=== PATIENT | male | born 1955 | race Caucasian/White ===

== ENCOUNTER 2016-06-10 18:29 | Inpatient (IN) | payer OTHER ==
[2016-06-10] MEDS ORDERED: ASPIRIN 81 MG CHEWABLE TABLETS PO ONE (18:46)
[2016-06-10] MEDS ORDERED: ASPIRIN 81 MG CHEWABLE TABLETS ONE (18:57)
[2016-06-10 19:15] LABS: BASOPHIL 1.2 % (0-2.0); MCH 29.8 pg (25.7-33.7); MCHC 33.2 g/dl (32.0-35.9); MEAN CELL VOLUME 89.9 fl (80-96); MEAN PLT VOLUME 8.3 fl (7.5-11.1); NEUTROPHILS 78.9 % (42.8-82.8); PLATELET COUNT 170 K/MM3 (134-434); WHITE BLOOD COUNT 8.8 K/mm3 (4.0-10.0)
[2016-06-10 19:33] LABS: INR 1.32 (0.82-1.09); PROTHROMBIN TIME (PATIENT) 14.6 SEC (9.98-11.88)
[2016-06-10] MEDS ORDERED: LEVOFLOXACIN 750 MG IVPB 150 ML IVPB ONE ×2 (19:41→20:12)
[2016-06-10 19:42] LABS: ALBUMIN 3.2 g/dl (3.4-5.0); BILIRUBIN,TOTAL 0.4 mg/dL (0.2-1.0); CALCIUM 8.5 mg/dL (8.5-10.1); CREATININE 1.4 mg/dL (0.7-1.3); MAGNESIUM 1.6 mg/dL (1.8-2.4); TOT PROT 6.9 g/dl (6.4-8.2)
[2016-06-10] MEDS ORDERED: ALBUTEROL SO4 2.5/IPRATROPIUM 0.5 INH SOL 3 ML VIAL.NEB. NEB STA (19:42)
--- NOTE | 2016-06-10 19:42 | PDOC ---
History of Present Illness - General History Source: Patient <Devin Coto - Last Filed: 06/10/16 20:01> - General History Source: Patient Exam Limitations: No Limitations - History of Present Illness Initial Comments: 06/10/16 19:52 The patient is a 61 year old male with significant past medical history of a-fib , CAD, CHF, hypertension, hyperlipidemia, COPD, and diabetes who presents to the ED with right-sided chest pain that began earlier today. Patient reports his right-sided chest pain radiates down his right arm. He describes his pain as sharp in nature and 10/10. At time of evaluation, his pain is more of a discomfort and 5/10. Patient denies diaphoresis, lightheadedness, jaw pain, nausea, or vomiting. As per daughter, at bedside, after talking to the patient earlier today, she noted the patient to be out of breath while talking. Patient also has complaints of occasional productive cough for the past few days. The patient denies fever, chills, abdominal pain, and diarrhea. Allergies: codeine, gabapentin Social History: Current smoker (PPD). No alcohol or drug use reported. Past Surgical History: AICD, CABG PCP: Dr. Kanu Truong Cardio: Dr. 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) GI Disorders: No Disorders: No HTN: Yes Hypercholesterolemia: Yes Liver Disease: No Suicide Attempt (Hx): No Seizures: No Thyroid Disease: No - Surgical History Abdominal Surgery: No Appendectomy: No Cardiac Surgery: Yes (CABG x 3 PACEMAKER) Cholecystectomy: No Lung Surgery: No Neurologic Surgery: No Orthopedic Surgery: No - Immunization History Td Vaccination: Yes (unknown) Immunization Up to Date: Yes - Psycho/Social/Smoking Cessation Hx Anxiety: No Suicidal Ideation: No Smoking Status: Yes Smoking History: Current every day smoker Years of Tobacco Use: 40 Have you smoked in the past 12 months: No Number of Cigarettes Smoked Daily: 15 If you are a former smoker, when did you quit?: 02/18/16 Cigars Per Day: 0 Information on smoking cessation initiated: No 'Breaking Loose' booklet given: 12/12/15 Hx Alcohol Use: No Drug/Substance Use Hx: No Substance Use Type: Cocaine Hx Substance Use Treatment: Yes (detox, new focus) <Devin Coto - Last Filed: 06/10/16 20:01> <Janis Nelson - Last Filed: 06/10/16 20:13> - Past Medical History Allergies/Adverse Reactions: Allergies Allergy/AdvReac Type Severity Reaction Status Date / Time codeine AdvReac Intermediate Vomiting Verified 06/10/16 18:34 gabapentin AdvReac Intermediate dizzy Verified 06/10/16 18:34 Home Medications: Ambulatory Orders Amlodipine Besylate [Norvasc -] 5 mg PO DAILY 06/18/15 Aspirin [Aspirin EC] 81 mg PO DAILY 06/18/15 Budesonide/Formeterol Fumarate [SYMBICORT 160/4.5mcg -] 1 inh PO DAILY 06/18/15 Cholecalciferol (Vitamin D3) [Vitamin D3] 2,000 unit PO DAILY 06/18/15 Cilostazol 50 mg PO DAILY 06/18/15 Clopidogrel Bisulfate [Clopidogrel] 75 mg PO DAILY 06/18/15 Furosemide [Lasix -] 40 mg PO DAILY 06/18/15 Insulin Detemir [Levemir Flextouch] 10 unit SQ PRN PRN 06/18/15 Lisinopril 5 mg PO DAILY 06/18/15 Metformin HCl [Glucophage] 1,000 mg PO BID 06/18/15 Simvastatin [Zocor -] 20 mg PO HS 06/18/15 Zolpidem Tartrate [Ambien] 10 mg PO HS 06/18/15 Carvedilol [Coreg -] 25 mg PO BID #60 tablet 06/20/15 Albuterol 0.083% Nebulizer Rosy [Ventolin 0.083% Nebulizer Soln -] 1 neb NEB QID PRN 02/18/16 Bupropion HCl [Wellbutrin -] 75 mg PO BID #60 tablet MDD 2 04/09/16 Oxycodone HCl/Acetaminophen [Percocet 10-325 mg Tablet] 1 each PO QID PRN #120 tablet MDD 4 06/09/16 Review of Systems - Review of Systems Able to Perform ROS?: Yes Comments:: 06/10/16 19:53 CONSTITUTIONAL: Absent: fever, chills, diaphoresis, generalized weakness, malaise, loss of appetite HEENT: Absent: rhinorrhea, nasal congestion, throat pain, throat swelling, difficulty swallowing, mouth swelling, ear pain, eye pain, visual Changes CARDIOVASCULAR: +right-sided chest pain radiating down right arm Absent: syncope, palpitations, irregular heart rate, lightheadedness, peripheral edema RESPIRATORY: +cough, shortness of breath, conversational dyspnea Absent: orthopnea, wheezing , stridor, hemoptysis GASTROINTESTINAL: Absent: abdominal pain, abdominal distension, nausea, vomiting, diarrhea, constipation, melena, hematochezia GENITOURINARY: Absent: dysuria, frequency, urgency, hesitancy, hematuria, flank pain, genital pain MUSCULOSKELETAL: Absent: myalgia, arthralgia, joint swelling SKIN: Absent: rash, itching, pallor NEUROLOGIC: Absent: headache, focal weakness or paresthesias, dizziness, unsteady gait, seizure, mental status changes, bladder or bowel incontinence PSYCHIATRIC: Absent: anxiety, depression, suicidal or homicidal ideation, hallucinations. <Janis Nelson - Last Filed: 06/10/16 20:13> *Physical Exam - Vital Signs Last Vital Signs Temp Pulse Resp BP Pulse Ox 97.8 F 114 H 18 147/78 95 06/10/16 18:31 06/10/16 18:31 06/10/16 18:31 06/10/16 18:31 06/10/16 18:31 <Devin Coto - Last Filed: 06/10/16 20:01> - Vital Signs Last Vital Signs Temp Pulse Resp BP Pulse Ox 97.8 F 114 H 18 147/78 95 06/10/16 18:31 06/10/16 18:31 06/10/16 18:31 06/10/16 18:31 06/10/16 18:31 - Physical Exam Comments: 06/10/16 19:53 GENERAL: Well developed, well nourished. Awake and alert. No acute distress. HEENT: Normocephalic, atraumatic. PERRLA, EOMI. No conjunctival pallor. Sclera are non- icteric. Moist mucous membranes. Oropharynx is clear. NECK: Supple. Full ROM. No JVD. Carotid pulses 2+ and symmetric, without bruits. No thyromegaly. No lymphadenopathy. CARDIOVASCULAR: Tachycardia. Regular rhythm. No murmurs, rubs, or gallops. Distal pulses are 2+ and symmetric. PULMONARY: Mild respiratory distress.Decreased breath sounds on the left. Mild conversational dyspnea, no retractions. ABDOMINAL: Soft. Non-tender. Non-distended. No rebound or guarding. No organomegaly. Normoactive bowel sounds. MUSCULOSKELETAL Normal range of motion at all joints. No bony deformities or tenderness. No CVA tenderness. EXTREMITIES: No cyanosis. No clubbing. No edema. No calf tenderness. SKIN: Warm and dry. Normal capillary refill. No rashes. No jaundice. NEUROLOGICAL: Alert, awake, appropriate. Cranial nerves 2-12 intact. Moving all extremities. No gross focal neurological deficits. PSYCHIATRIC: Cooperative. Good eye contact. Appropriate mood and affect. <Janis Nelson - Last Filed: 06/10/16 20:13> Heart Score/ECG Review - ECG Impressions Comment:: 06/10/16 20:05 Sinus tachycardia with short SC with occasional premature ventricular complexes @112bpm Left axis deviation Pulmonary disease pattern Left ventricular hypertrophy with repolarization abnormality Inferior-posterior infarct, possibly acute Consider right ventricular involvement in acute inferior infarct Abnormal ECG <Janis Nelson - Last Filed: 06/10/16 20:13> ED Treatment Course - LABORATORY CBC & Chemistry Diagram: 06/10/16 18:34 06/10/16 18:34 - ADDITIONAL ORDERS Additional order review: 06/10/16 18:34 RBC 3.08 L MCV 89.9 MCHC 33.2 RDW 16.0 H MPV 8.3 Neutrophils % 78.9 Lymphocytes % 11.3 Monocytes % 5.6 Eosinophils % 3.0 D Basophils % 1.2 - Medications Given in the ED: ED Medications Discontinued Medications Generic Name Dose Route Start Last Admin Trade Name Freq PRN Reason Stop Dose Admin Aspirin 162 mg 06/10/16 18:46 06/10/16 18:55 Asa - PO 06/10/16 18:47 162 mg ONCE ONE Administration <Devin Coto - Last Filed: 06/10/16 20:01> - LABORATORY CBC & Chemistry Diagram: 06/10/16 18:34 06/10/16 18:34 - ADDITIONAL ORDERS Additional order review: Laboratory Results 06/10/16 18:34 Sodium 142 Potassium 4.1 Chloride 106 Carbon Dioxide 27 Anion Gap 9 BUN 34 H Creatinine 1.4 H Creat Clearance w eGFR 51.52 Random Glucose 179 H D Calcium 8.5 Magnesium 1.6 L D Total Bilirubin 0.4 D AST 7 L D ALT 7 L D Alkaline Phosphatase 92 Creatine Kinase 42 Troponin I 0.03 B-Natriuretic Peptide 7927.97 H Total Protein 6.9 Albumin 3.2 L 06/10/16 18:34 RBC 3.08 L MCV 89.9 MCHC 33.2 RDW 16.0 H MPV 8.3 Neutrophils % 78.9 Lymphocytes % 11.3 Monocytes % 5.6 Eosinophils % 3.0 D Basophils % 1.2 - Medications Given in the ED: ED Medications Discontinued Medications Generic Name Dose Route Start Last Admin Trade Name Freq PRN Reason Stop Dose Admin Aspirin 162 mg 06/10/16 18:46 06/10/16 18:55 Asa - PO 06/10/16 18:47 162 mg ONCE ONE Administration <Janis Nelson - Last Filed: 06/10/16 20:13> Medical Decision Making - Medical Decision Making 06/10/16 20:02 Dr. Coto: The scribe's documentation has been prepared under my direction and personally reviewed by me in its entirery. I confirm that the note above accurately reflects all work, treatment, procedures, and medical decision making performed by me. patient found to LLL infiltrate and small pleural. Troponin negative at this time. Pt to be admitted to Tele. Spoke to Dr. Phillips who will write admitting orders <Devin Coto - Last Filed: 06/10/16 20:01> - Medical Decision Making 06/10/16 19:[address] Rocky Phillips who is covering for Dr. Isidro Morales who is covering for Dr. Kanu Truong (via answering service) at 19:56. Awaiting call back 06/10/16 19:58 Patient's case discussed with Dr. Phillips at 19:58 <Janis Nelson - Last Filed: 06/10/16 20:13> *DC/Admit/Observation/Transfer - Discharge Dispostion Admit: Yes <Devin Coto - Last Filed: 06/10/16 20:01> - Attestations Scribe Attestion: 06/10/16 19:53 Documentation prepared by Janis Nelson, acting as certified medical dosimetrist for Devin Coto MD <Janis Nelson - Last Filed: 06/10/16 20:13> Diagnosis at time of Disposition: Chest pain, CAD (coronary artery disease) Pneumonia Qualifiers: Pneumonia type: due to unspecified organism Laterality: left Lung location: lower lobe of lung Qualified Code(s): J18.9 - Pneumonia, unspecified organism - Referrals Referrals: Kanu Truong MD [Primary Care Provider] -
[2016-06-10 19:44] LABS: TROPONIN I 0.03 ng/ml (0.00-0.05)
[2016-06-10] MEDS ORDERED: ALBUTEROL SO4 0.083% IH SOL 2.5 MG/3 ML VIAL.NEB. NEB ONE (20:12)
[2016-06-10] MEDS ORDERED: CEFTRIAXONE 50 ML ONE (21:21)
[2016-06-10] MEDS: INSULIN DETEMIR 100 UNITS/ML MDV SQ SCH (23:11)
[2016-06-10] MEDS: HEPARIN NA (PORCINE) 5,000 UNITS/ML 1ML VIAL SQ SCH (23:11)
[2016-06-10] MEDS: ZOLPIDEM TARTRATE 5 MG TABLET PO PRN (23:12)
[2016-06-10] MEDS: AZITHROMYCIN IVPB 250 ML IVPB SCH (23:12)
[2016-06-10] MEDS: INSULIN SLIDING SCALE (NOVOLOG) 1 VIAL SQ SCH (23:13)
[2016-06-10] MEDS: CARVEDILOL 25 MG TABLET (FP) PO SCH (23:13)
[2016-06-10] MEDS: ATORVASTATIN CA 10 MG TABLET (FP) PO SCH (23:13)
[2016-06-10] MEDS: BUDESONIDE/FORMETEROL FUMARATE 160/4.5 mcg INHALER IH SCH (23:43)
[2016-06-10] MEDS: buPROPion HCL 75 MG TABLET PO SCH (23:43)
[2016-06-10] MEDS: CEFTRIAXONE 50 ML IVPB SCH (23:44)
[2016-06-11] MEDS: ALBUTEROL SO4 0.083% IH SOL 2.5 MG/3 ML VIAL.NEB. NEB SCH ×4 (00:15→17:40)
[2016-06-11] MEDS ORDERED: INSULIN DETEMIR 100 UNITS/ML MDV SQ ONE (00:39)
[2016-06-11 01:16] VITALS: BMI 27.2
[2016-06-11 04:40] LABS: TROPONIN I 0.04 ng/ml (0.00-0.05)
[2016-06-11 06:58] LABS: BASOPHIL 1.2 % (0-2.0); EOSINOPHIL 4.3 % (0-4.5); MCH 29.6 pg (25.7-33.7); MCHC 32.9 g/dl (32.0-35.9); MEAN PLT VOLUME 8.5 fl (7.5-11.1); NEUTROPHILS 73.1 % (42.8-82.8); PLATELET COUNT 136 K/MM3 (134-434); RDW 15.8 % (11.9-15.9); WHITE BLOOD COUNT 6.5 K/mm3 (4.0-10.0)
[2016-06-11 07:42] LABS: ALK PHOS 82 U/L (45-117); ANION GAP 7 (8-16); BILIRUBIN,TOTAL 0.4 mg/dL (0.2-1.0); CALCIUM 8.4 mg/dL (8.5-10.1); CO2 29 mmol/L (21-32); CREATININE 1.2 mg/dL (0.7-1.3); GLUCOSE,RANDOM 94 mg/dL (74-106); SGOT/AST 7 U/L (15-37); SGPT/ALT 6 U/L (12-78); TOT PROT 6.3 g/dl (6.4-8.2)
[2016-06-11] MEDS: INSULIN SLIDING SCALE (NOVOLOG) 1 VIAL SQ SCH ×4 (07:59→22:06)
[2016-06-11] MEDS: metFORMIN HCL 500 MG TABLET (FP) PO SCH ×2 (07:59→16:32)
[2016-06-11] MEDS: oxyCODONE HCL 5 MG TABLET PO PRN ×3 (08:00→22:10)
[2016-06-11] MEDS: ACETAMINOPHEN 325 MG TABLET (FP) PO PRN ×3 (08:01→22:09)
[2016-06-11] MEDS: CEFTRIAXONE 50 ML IVPB SCH (09:12)
[2016-06-11] MEDS: LISINOPRIL 5 MG TABLET (FP) PO SCH (09:13)
[2016-06-11] MEDS: amLODIPine BESYLATE 5 MG TABLET (FP) PO SCH (09:13)
[2016-06-11] MEDS: AZITHROMYCIN IVPB 250 ML IVPB SCH (09:13)
[2016-06-11] MEDS: ASPIRIN COATED 81 MG TABLET.EC PO SCH (09:13)
[2016-06-11] MEDS: HEPARIN NA (PORCINE) 5,000 UNITS/ML 1ML VIAL SQ SCH ×2 (09:14→22:06)
[2016-06-11] MEDS: CARVEDILOL 25 MG TABLET (FP) PO SCH ×2 (09:14→22:06)
[2016-06-11] MEDS: CLOPIDOGREL BISULFATE 75 MG TABLET (FP) PO SCH (09:14)
[2016-06-11] MEDS: CHOLECALCIFEROL (VITAMIN D3) 1,000 UNIT TABLET (FP) PO SCH (09:14)
[2016-06-11] MEDS ORDERED: PT OWN MED DRAWER 7, Y5N ONE ×2 (09:15→13:14)
[2016-06-11] MEDS: buPROPion HCL 75 MG TABLET PO SCH ×2 (09:16→22:05)
[2016-06-11] MEDS: BUDESONIDE/FORMETEROL FUMARATE 160/4.5 mcg INHALER IH SCH ×2 (09:16→22:15)
[2016-06-11] MEDS ORDERED: FUROSEMIDE 40 MG/4 ML INJECTABLE VIAL IVPUSH SCH (10:00)
[2016-06-11] MEDS ORDERED: CILOSTAZOL 50 MG TABLET (FP) PO SCH (10:00)
--- NOTE | 2016-06-11 10:54 | CON.CARD ---
Cardiology Consult (text) - Consultation Consultation Note: cc: sob hpi: 61 m hx copd, cabgx3 2012, bio avr 2012, pad s/p b/l sfa occlusions, syst chf s/p medtronic icd, htn, hld, a-tach, here with sob. Had been feeling well until yesterday when he began to have sob/mckay. He also noticed some sharp central cp with radiation to right arm. No cough. No palps, dizzy, loc, pnd, orthopnea, le edema. Got iv lasix and abx in ER and today he reports cp resolved. Sob is a little better as well. Sees me for cardiology. pmh: per hpi psh: cabg, avr, icd social: +tob fam: no premature cad ros: per hpi; no nvd, fever, muscle pain, wt loss, rash, hematuria, gib, nasal congestion, shelton, vision changes meds: Home Medications Medication Instructions Recorded Amlodipine Besylate [Norvasc -] 5 mg PO DAILY 06/18/15 Aspirin [Aspirin EC] 81 mg PO DAILY 06/18/15 Budesonide/Formeterol Fumarate 1 inh PO DAILY 06/18/15 [SYMBICORT 160/4.5mcg -] Cholecalciferol (Vitamin D3) 2,000 unit PO DAILY 06/18/15 [Vitamin D3] Cilostazol 50 mg PO DAILY 06/18/15 Clopidogrel Bisulfate [Clopidogrel] 75 mg PO DAILY 06/18/15 Furosemide [Lasix -] 40 mg PO DAILY 06/18/15 Insulin Detemir [Levemir Flextouch] 10 unit SQ PRN PRN 06/18/15 Lisinopril 5 mg PO DAILY 06/18/15 Metformin HCl [Glucophage] 1,000 mg PO BID 06/18/15 Simvastatin [Zocor -] 20 mg PO HS 06/18/15 Zolpidem Tartrate [Ambien] 10 mg PO HS 06/18/15 Carvedilol [Coreg -] 25 mg PO BID #60 tablet 06/20/15 Albuterol 0.083% Nebulizer Rosy 1 neb NEB QID PRN 02/18/16 [Ventolin 0.083% Nebulizer Soln -] Bupropion HCl [Wellbutrin -] 75 mg PO BID #60 tablet MDD 2 04/09/16 Oxycodone HCl/Acetaminophen 1 each PO QID PRN #120 tablet MDD 4 06/09/16 [Percocet 10-325 mg Tablet] pe: Vital Signs Period Temp Pulse Resp BP Sys/El Pulse Ox Last 24 Hr 97.6 F-98.1 F 75-114 16-18 104-147/59-83 95-100 nad no jvd rrr s1s2 no mrg cta bl nl eff aaox3 no le e/c/c abd nt nd pos bs no jaundice diaphoresis +dp pt no carotid bruits Laboratory Last Values WBC 6.5 K/mm3 (4.0-10.0) 06/11/16 05:55 RBC 2.92 M/mm3 (4.00-5.60) L 06/11/16 05:55 Hgb 8.7 GM/dL (11.7-16.9) L 06/11/16 05:55 Hct 26.3 % (35.4-49) L 06/11/16 05:55 MCV 90.0 fl (80-96) 06/11/16 05:55 MCHC 32.9 g/dl (32.0-35.9) 06/11/16 05:55 RDW 15.8 % (11.9-15.9) 06/11/16 05:55 Plt Count 136 K/MM3 (134-434) 06/11/16 05:55 MPV 8.5 fl (7.5-11.1) 06/11/16 05:55 Neutrophils % 73.1 % (42.8-82.8) 06/11/16 05:55 Lymphocytes % 14.3 % (8-40) D 06/11/16 05:55 Monocytes % 7.1 % (3.8-10.2) 06/11/16 05:55 Eosinophils % 4.3 % (0-4.5) 06/11/16 05:55 Basophils % 1.2 % (0-2.0) 06/11/16 05:55 INR 1.32 (0.82-1.09) H 06/10/16 18:34 Sodium 140 mmol/L (136-145) 06/11/16 05:55 Potassium 4.3 mmol/L (3.5-5.1) 06/11/16 05:55 Chloride 104 mmol/L (98-107) 06/11/16 05:55 Carbon Dioxide 29 mmol/L (21-32) 06/11/16 05:55 Anion Gap 7 (8-16) L 06/11/16 05:55 BUN 32 mg/dL (7-18) H 06/11/16 05:55 Creatinine 1.2 mg/dL (0.7-1.3) 06/11/16 05:55 Creat Clearance w eGFR > 60 (>60) 06/11/16 05:55 POC Glucometer 119 UNITS (()) 06/10/16 23:07 Random Glucose 94 mg/dL (74-106) D 06/11/16 05:55 Calcium 8.4 mg/dL (8.5-10.1) L 06/11/16 05:55 Magnesium 1.6 mg/dL (1.8-2.4) L D 06/10/16 18:34 Total Bilirubin 0.4 mg/dL (0.2-1.0) 06/11/16 05:55 AST 7 U/L (15-37) L 06/11/16 05:55 ALT 6 U/L (12-78) L 06/11/16 05:55 Alkaline Phosphatase 82 U/L (45-117) 06/11/16 05:55 Creatine Kinase 41 IU/L (39-308) 06/10/16 23:45 Troponin I 0.04 ng/ml (0.00-0.05) D 06/10/16 23:45 B-Natriuretic Peptide 7927.97 pg/ml (5-125) H 06/10/16 18:34 Total Protein 6.3 g/dl (6.4-8.2) L 06/11/16 05:55 Albumin 3.0 g/dl (3.4-5.0) L 06/11/16 05:55 tele: sr, occ vpacing ecg 06/10/16: ?atach, vs sinus tach, nl qtc, lvh with repol changes, no sig change prior cxr: mild chf, ?infiltrate mibi 09/2014: large inf scar, mod anteroapical ischemia, lvef 25% echo 06/2015: mild lve, mod-sev dec lvef, mod lae, nl rv size, mild dec rv fcn, mild-mod mr, mild tr, nl avr fcn, rvsp 30-40 a/p: 61 m hx copd, cabgx3 2012, bio avr 2012, pad s/p b/l sfa occlusions, syst chf s/p medtronic icd, htn, hld, a-tach, here with sob. sob, acute systolic chf exacerbation: -no gross vol overload but some mild congestion on cxr -possible with some mild chf so agree with trial of iv lasix as doing -also on abx for possible copd/pna -check updated echo cp: -atypical, now resolved -ecg w/o sig changes -ce's negx2 -will monitor sxs for now since resolved, given his cad hx and mildly abnormal prior stress test will likely need repeat mibi to look for any sig cad recurrence, possibly tomorrow cad: -plan as above -cont deidra, dapt, statin, bb, ccb bio avr: -nl fcn on last years echo, will check updated here to monitor pad: -stable, no claudication, cont current cardiac meds, pletal s/p icd: -no shocks -nl function on recent office check 05/2016 htn: -cont home meds hld: -cont statin atach: -has minimal episodes seen in past on icd checks -tele here with some brief runs possibly -cont bb, monitor tele
[2016-06-11 12:07] LABS: TROPONIN I 0.04 ng/ml (0.00-0.05)
[2016-06-11] MEDS: NICOTINE 14 MG/24 HOURS TOPICAL PATCH TD SCH (14:30)
--- NOTE | 2016-06-11 14:58 | HP ---
Admitting History and Physical - Primary Care Physician PCP: Kanu Truong - Admission Chief Complaint: I was short of breath History of Present Illness: Mr Owen is a pleasant 61 year old male who comes in with shortness of breath. He says he was doing well, however yesterday he became short of breath. He says it started suddenly yesterday. It was associated with minimal coughing. He says he had some right sided chest pain with it yesterday but that resolved. He says he also has R arm pain, he states that it is felt with movement of the arm and pressing on the muscle. His arm is not swollen. Currently he says he is feeling better. He says his shortness of breath has improved and the chest pain resolved. He denies fevers, chills, lightheadedness, dizziness, passing out, abdominal pain, nausea, vomiting, diarrhea, constipation, difficulty or pain on urination, swelling, or erythema. He currently is requesting a nicotine patch. History Source: Patient Limitations to Obtaining History: No Limitations - Past Medical History Cardiovascular: Yes: AFIB (after CABG briefly; not on AC), CAD, CHF, HTN Pulmonary: Yes: COPD, O2 Dependent Endocrine: Yes: Diabetes Mellitus - Past Surgical History Past Surgical History: Yes: AICD, CABG - Advance Directives Advance Directives: Yes: Health Care Proxy - Smoking History Smoking history: Current every day smoker Have you smoked in the past 12 months: Yes Aproximately how many cigarettes per day: 15 If you are a former smoker, when did you quit?: 02/18/16 - Alcohol/Substance Use Hx Alcohol Use: No History of Substance Use: reports: None - Social History ADL: Independent History of Recent Travel: No Home Medications - Allergies Allergies/Adverse Reactions: Allergies Allergy/AdvReac Type Severity Reaction Status Date / Time codeine AdvReac Intermediate Vomiting Verified 06/10/16 18:34 gabapentin AdvReac Intermediate dizzy Verified 06/10/16 18:34 - Home Medications Home Medications: Ambulatory Orders Amlodipine Besylate [Norvasc -] 5 mg PO DAILY 06/18/15 Aspirin [Aspirin EC] 81 mg PO DAILY 06/18/15 Budesonide/Formeterol Fumarate [SYMBICORT 160/4.5mcg -] 1 inh PO DAILY 06/18/15 Cholecalciferol (Vitamin D3) [Vitamin D3] 2,000 unit PO DAILY 06/18/15 Cilostazol 50 mg PO DAILY 06/18/15 Clopidogrel Bisulfate [Clopidogrel] 75 mg PO DAILY 06/18/15 Furosemide [Lasix -] 40 mg PO DAILY 06/18/15 Insulin Detemir [Levemir Flextouch] 10 unit SQ PRN PRN 06/18/15 Lisinopril 5 mg PO DAILY 06/18/15 Metformin HCl [Glucophage] 1,000 mg PO BID 06/18/15 Simvastatin [Zocor -] 20 mg PO HS 06/18/15 Zolpidem Tartrate [Ambien] 10 mg PO HS 06/18/15 Carvedilol [Coreg -] 25 mg PO BID #60 tablet 06/20/15 Albuterol 0.083% Nebulizer Rosy [Ventolin 0.083% Nebulizer Soln -] 1 neb NEB QID PRN 02/18/16 Bupropion HCl [Wellbutrin -] 75 mg PO BID #60 tablet MDD 2 04/09/16 Oxycodone HCl/Acetaminophen [Percocet 10-325 mg Tablet] 1 each PO QID PRN #120 tablet MDD 4 06/09/16 Family Disease History - Family Disease History Family Disease History: Diabetes: Mother, Heart Disease: Father (etoh) Review of Systems Findings/Remarks: Full review of systems obtained, as per HPI and otherwise negative Physical Examination Vital Signs: Vital Signs Temperature 97.4 F L 06/11/16 14:27 Pulse Rate 68 06/11/16 14:27 Respiratory Rate 18 06/11/16 14:27 Blood Pressure 105/55 06/11/16 14:27 O2 Sat by Pulse Oximetry (%) 98 06/11/16 10:00 Constitutional: Yes: Well Nourished, No Distress, Calm Eyes: Yes: Conjunctiva Clear, EOM Intact, PERRL HENT: Yes: Atraumatic, Normocephalic Cardiovascular: Yes: Regular Rate and Rhythm. No: Gallop, Murmur, Rub Respiratory: Yes: Regular, CTA Bilaterally, On Nasal O2. No: Rales, Rhonchi, Wheezes Gastrointestinal: Yes: Normal Bowel Sounds, Soft. No: Distention, Tenderness Extremities: Yes: WNL Edema: No Labs: CBC, BMP 06/11/16 05:55 06/11/16 05:55 Imaging - Results Chest X-ray: Report Reviewed, Image Reviewed Problem List - Problems (1) Shortness of breath Assessment/Plan: -patient presents with SOB -low suspicion for pneumonia, considering unchanged chest x-ray/no leukocytosis/ afebrile -will stop antibiotics -check urine for pneumonia antigens -being diuresed for fluid overload -improving Code(s): R06.02 - SHORTNESS OF BREATH (2) Chest pain Assessment/Plan: -atypical -cardiac enzymes x3 negative -resolved -cardiology following Code(s): R07.9 - CHEST PAIN, UNSPECIFIED (3) CAD (coronary artery disease) Assessment/Plan: -quiescent -continue home regimen Code(s): I25.10 - ATHSCL HEART DISEASE OF [place] CORONARY ARTERY W/O ANG PCTRS (4) CHF (congestive heart failure) Assessment/Plan: -minor exacerbation -continue IV lasix per cardiology Code(s): I50.9 - HEART FAILURE, UNSPECIFIED Qualifiers: Congestive heart failure type: systolic Congestive heart failure chronicity: chronic Qualified Code(s): I50.22 - Chronic systolic ( congestive) heart failure (5) CKD (chronic kidney disease) Assessment/Plan: -at baseline -monitor while receiving IV lasix Code(s): N18.9 - CHRONIC KIDNEY DISEASE, UNSPECIFIED Qualifiers: Chronic kidney disease stage: stage 3 (moderate) Qualified Code(s): N18.3 - Chronic kidney disease, stage 3 (moderate) (6) COPD (chronic obstructive pulmonary disease) Assessment/Plan: -considering smoking history, possible COPD exacerbation -however patient without wheezing and good air movement -continue symbicort and albuterol Code(s): J44.9 - CHRONIC OBSTRUCTIVE PULMONARY DISEASE, UNSPECIFIED (7) HTN (hypertension) Assessment/Plan: -well controlled -continue home regimen Code(s): I10 - ESSENTIAL (PRIMARY) HYPERTENSION (8) Nicotine dependence Assessment/Plan: -nicotine patch Code(s): F17.200 - NICOTINE DEPENDENCE, UNSPECIFIED, UNCOMPLICATED (9) Diabetes Assessment/Plan: -continue metformin and levemir -diabetic diet -FSBS and SSI Code(s): E11.9 - TYPE 2 DIABETES MELLITUS WITHOUT COMPLICATIONS
[2016-06-11] MEDS: ZOLPIDEM TARTRATE 5 MG TABLET PO PRN (22:05)
[2016-06-11] MEDS: INSULIN DETEMIR 100 UNITS/ML MDV SQ SCH (22:06)
[2016-06-11] MEDS: ATORVASTATIN CA 10 MG TABLET (FP) PO SCH (22:06)
[2016-06-12] MEDS: ALBUTEROL SO4 0.083% IH SOL 2.5 MG/3 ML VIAL.NEB. NEB SCH ×3 (05:50→11:14)
[2016-06-12] MEDS ORDERED: PT OWN MED DRAWER 7, Y5N ONE ×2 (06:13→13:12)
[2016-06-12] MEDS: ACETAMINOPHEN 325 MG TABLET (FP) PO PRN ×2 (06:19→13:21)
[2016-06-12] MEDS: oxyCODONE HCL 5 MG TABLET PO PRN ×2 (06:20→13:21)
[2016-06-12] MEDS: INSULIN SLIDING SCALE (NOVOLOG) 1 VIAL SQ SCH ×2 (06:20→11:00)
[2016-06-12] MEDS: metFORMIN HCL 500 MG TABLET (FP) PO SCH (06:20)
[2016-06-12 07:39] LABS: BASOPHIL 1.3 % (0-2.0); EOSINOPHIL 4.8 % (0-4.5); MCH 29.8 pg (25.7-33.7); MCHC 33.3 g/dl (32.0-35.9); MEAN CELL VOLUME 89.5 fl (80-96); MEAN PLT VOLUME 8.6 fl (7.5-11.1); NEUTROPHILS 75.3 % (42.8-82.8); PLATELET COUNT 133 K/MM3 (134-434); RDW 15.7 % (11.9-15.9); WHITE BLOOD COUNT 6.5 K/mm3 (4.0-10.0)
[2016-06-12 08:04] LABS: CALCIUM 8.5 mg/dL (8.5-10.1); CREATININE 1.4 mg/dL (0.7-1.3); MAGNESIUM 1.7 mg/dL (1.8-2.4); PHOSPHOROUS 3.9 mg/dL (2.5-4.9)
--- NOTE | 2016-06-12 09:32 | PN ---
Progress Note (short form) - Note Progress Note: s: no cp sob palps dizzy; feels better o: Vital Signs Period Temp Pulse Resp BP Sys/El Pulse Ox Last 24 Hr 97.4 F-98.3 F 66-76 16-18 105-126/55-72 98-98 nad no jvd rrr s1s2 no mrg cta bl nl eff aaox3 no le e/c/c abd nt nd pos bs no jaundice diaphoresis Current Medications Generic Name Dose Route Start Last Admin Trade Name Freq PRN Reason Stop Dose Admin Acetaminophen 325 mg 06/10/16 20:53 06/12/16 06:19 Tylenol - PO 325 mg Q6H PRN Administration PAIN Albuterol Sulfate 1 amp 06/11/16 00:00 06/12/16 05:50 Ventolin 0.083% Nebulizer Soln - NEB 1 amp QIDR MANJU Administration Amlodipine Besylate 5 mg 06/11/16 10:00 06/11/16 09:13 Norvasc - PO 5 mg DAILY MANJU Administration Aspirin 81 mg 06/11/16 10:00 06/11/16 09:13 Ecotrin - PO 81 mg DAILY MANJU Administration Atorvastatin Calcium 10 mg 06/10/16 22:00 06/11/16 22:06 Lipitor - PO 10 mg HS MANJU Administration Budesonide/Formoterol Fumarate 2 puff 06/10/16 22:00 06/11/16 22:15 Symbicort 160/4.5mcg - IH 2 puff BID MANJU Administration Bupropion HCl 75 mg 06/10/16 22:00 06/11/16 22:05 Wellbutrin - PO 75 mg BID MANJU Administration Carvedilol 25 mg 06/10/16 22:00 06/11/16 22:06 Coreg - PO 25 mg BID MANJU Administration Cholecalciferol 2,000 unit 06/11/16 10:00 06/11/16 09:14 Vitamin D3 - PO 2,000 unit DAILY MANJU Administration Cilostazol 50 mg 06/11/16 10:00 Pletal - PO DAILY MANJU Clopidogrel Bisulfate 75 mg 06/11/16 10:00 06/11/16 09:14 Plavix - PO 75 mg DAILY MANJU Administration Furosemide 40 mg 06/12/16 10:00 Lasix - PO DAILY [facility] Heparin Sodium (Porcine) 5,000 unit 06/10/16 22:00 06/11/16 22:06 Heparin - SQ 5,000 unit BID MANJU Administration Insulin Aspart 1 vial 06/10/16 22:00 06/12/16 06:20 Novolog Vial Sliding Scale - SQ Not Given ACHS [facility] Protocol Insulin Detemir 10 units 06/10/16 22:00 06/11/16 22:06 Levemir Vial SQ Not Given HS MANJU Lisinopril 5 mg 06/11/16 10:00 06/11/16 09:13 Prinivil PO 5 mg DAILY MANJU Administration Metformin HCl 1,000 mg 06/11/16 07:00 06/12/16 06:20 Glucophage - PO 1,000 mg BIDAC MANJU Administration Nicotine 14 mg 06/11/16 13:00 06/11/16 14:30 Nicoderm Patch - TD 14 mg DAILY MANJU Administration Oxycodone HCl 5 mg 06/10/16 20:53 06/12/16 06:20 Roxicodone - PO 5 mg Q6H PRN Administration PAIN LEVEL 6-10 Zolpidem Tartrate 5 mg 06/10/16 22:00 06/11/16 22:05 Ambien - PO 5 mg HS PRN Administration CBC, BMP 06/12/16 06:40 06/12/16 06:40 tele: sr, occ vpacing ecg 06/10/16: ?atach, vs sinus tach, nl qtc, lvh with repol changes, no sig change prior cxr: mild chf, ?infiltrate mibi 09/2014: large inf scar, mod anteroapical ischemia, lvef 25% echo 06/2015: mild lve, mod-sev dec lvef, mod lae, nl rv size, mild dec rv fcn, mild-mod mr, mild tr, nl avr fcn, rvsp 30-40 echo 06/2016: sev dec lvef, global hk, rv tds, trinity, mild pr, mod-sev mr, mod tr , rvsp 50-60 a/p: 61 m hx copd, cabgx3 2012, bio avr 2012, pad s/p b/l sfa occlusions, syst chf s/p medtronic icd, htn, hld, a-tach, here with sob. sob, acute systolic chf exacerbation: -no gross vol overload but some mild congestion on cxr -possible with some mild chf so got few doses of iv lasix, now feeling better -will check mibi today to see if any new ischemia that led to his current sxs cp: -atypical, now resolved -ecg w/o sig changes -ce's negx3 -plan for mibi today cad: -plan as above -cont deidra, dapt, statin, bb, ccb bio avr: -nl fcn on echo here pad: -stable, no claudication, cont current cardiac meds, pletal s/p icd: -no shocks -nl function on recent office check 05/2016 htn: -cont home meds hld: -cont statin atach: -has minimal episodes seen in past on icd checks -tele here with some brief runs possibly -cont bb, monitor tele if mibi unremarkable then ok for dc from cardiac pov later today
[2016-06-12] MEDS ORDERED: FUROSEMIDE 40 MG TABLET (FP) PO SCH (10:00)
--- NOTE | 2016-06-12 10:58 | EKG ---
Test Reason : Blood Pressure : / mmHG Vent. Rate : 110 BPM Atrial Rate : 110 BPM P-R Int : 056 ms QRS Dur : 108 ms QT Int : 358 ms P-R-T Axes : 126 -52 124 degrees QTc Int : 484 ms UNUSUAL P AXIS, POSSIBLE ECTOPIC ATRIAL TACHYCARDIA WITH OCCASIONAL PREMATURE VENTRICULAR COMPLEXES LEFT AXIS DEVIATION PULMONARY DISEASE PATTERN LEFT VENTRICULAR HYPERTROPHY WITH REPOLARIZATION ABNORMALITY Confirmed by FLORA BLACK MD ([id number]) on 06/12/2016 10:58:14 AM Referred By: Confirmed By:FLORA BLACK MD
[2016-06-12] MEDS: NICOTINE 14 MG/24 HOURS TOPICAL PATCH TD SCH (13:14)
[2016-06-12] MEDS: CHOLECALCIFEROL (VITAMIN D3) 1,000 UNIT TABLET (FP) PO SCH (13:15)
[2016-06-12] MEDS: buPROPion HCL 75 MG TABLET PO SCH (13:15)
[2016-06-12] MEDS: LISINOPRIL 5 MG TABLET (FP) PO SCH (13:15)
[2016-06-12] MEDS: CARVEDILOL 25 MG TABLET (FP) PO SCH (13:16)
[2016-06-12] MEDS: ASPIRIN COATED 81 MG TABLET.EC PO SCH (13:16)
[2016-06-12] MEDS: amLODIPine BESYLATE 5 MG TABLET (FP) PO SCH (13:16)
[2016-06-12] MEDS: HEPARIN NA (PORCINE) 5,000 UNITS/ML 1ML VIAL SQ SCH (13:16)
[2016-06-12] MEDS: CLOPIDOGREL BISULFATE 75 MG TABLET (FP) PO SCH (13:16)
[2016-06-12] MEDS: BUDESONIDE/FORMETEROL FUMARATE 160/4.5 mcg INHALER IH SCH (13:17)
[2016-06-12] MEDS ORDERED: DEXTROSE 5% IVPB ONE (13:45)
[2016-06-12] MEDS ORDERED: WATER IVPB ONE (13:45)
[2016-06-12] MEDS ORDERED: DIPYRIDAMOLE STRESS TEST IVPB ONE (13:45)
--- NOTE | 2016-06-12 15:05 | DS ---
Physical Examination Vital Signs: Vital Signs Temperature 96.6 F L 06/12/16 10:00 Pulse Rate 72 06/12/16 10:00 Respiratory Rate 20 06/12/16 10:00 Blood Pressure 122/68 06/12/16 10:00 O2 Sat by Pulse Oximetry (%) 98 06/11/16 20:57 Constitutional: Yes: Well Nourished, No Distress, Calm Cardiovascular: Yes: Regular Rate and Rhythm. No: Gallop, Murmur, Rub Respiratory: Yes: Regular, CTA Bilaterally. No: Rales, Rhonchi, Wheezes Gastrointestinal: Yes: Normal Bowel Sounds, Soft. No: Distention, Tenderness Extremities: Yes: WNL Edema: No Labs: CBC, BMP 06/12/16 06:40 06/12/16 06:40 Discharge Summary Reason For Visit: SHORTNESS OF BREATH Current Active Problems Chest pain (Acute) Pneumonia (Acute) CAD (coronary artery disease) (Chronic) Hospital Course: (1) Shortness of breath Code(s): R06.02 - SHORTNESS OF BREATH (2) Chest pain Code(s): R07.9 - CHEST PAIN, UNSPECIFIED (3) CAD (coronary artery disease) Code(s): I25.10 - ATHSCL HEART DISEASE OF [place] CORONARY ARTERY W/O ANG PCTRS (4) CHF (congestive heart failure) Code(s): I50.9 - HEART FAILURE, UNSPECIFIED Qualifiers: Congestive heart failure type: systolic Congestive heart failure chronicity: chronic Qualified Code(s): I50.22 - Chronic systolic ( congestive) heart failure (5) CKD (chronic kidney disease) Code(s): N18.9 - CHRONIC KIDNEY DISEASE, UNSPECIFIED Qualifiers: Chronic kidney disease stage: stage 3 (moderate) Qualified Code(s): N18.3 - Chronic kidney disease, stage 3 (moderate) (6) COPD (chronic obstructive pulmonary disease) Code(s): J44.9 - CHRONIC OBSTRUCTIVE PULMONARY DISEASE, UNSPECIFIED (7) HTN (hypertension) Code(s): I10 - ESSENTIAL (PRIMARY) HYPERTENSION (8) Nicotine dependence Code(s): F17.200 - NICOTINE DEPENDENCE, UNSPECIFIED, UNCOMPLICATED (9) Diabetes Code(s): E11.9 - TYPE 2 DIABETES MELLITUS WITHOUT COMPLICATIONS Mr Owen is a pleasant 61 year old male who comes in with shortness of breath and atypical chest pain. He was admitted to telemetry. He was diuresed with IV lasix. He was seen by cardiology and underwent MIBI stress test which was unchanged. He was cleared by cardiology for discharge and safely discharged home. 32 minutes spent in preparation of this discharge Condition: Good - Instructions Diet, Activity, Other Instructions: low fat diet. Resume previous activity. Referrals: Kanu Truong MD [Primary Care Provider] - Anthony Zafar MD [Staff Physician] - Disposition: HOME - Home Medications Comprehensive Discharge Medication List: Ambulatory Orders Amlodipine Besylate [Norvasc -] 5 mg PO DAILY 06/18/15 Aspirin [Aspirin EC] 81 mg PO DAILY 06/18/15 Budesonide/Formeterol Fumarate [SYMBICORT 160/4.5mcg -] 1 inh PO DAILY 06/18/15 Cholecalciferol (Vitamin D3) [Vitamin D3] 2,000 unit PO DAILY 06/18/15 Cilostazol 50 mg PO DAILY 06/18/15 Clopidogrel Bisulfate [Clopidogrel] 75 mg PO DAILY 06/18/15 Furosemide [Lasix -] 40 mg PO DAILY 06/18/15 Insulin Detemir [Levemir Flextouch] 10 unit SQ PRN PRN 06/18/15 Lisinopril 5 mg PO DAILY 06/18/15 Metformin HCl [Glucophage] 1,000 mg PO BID 06/18/15 Simvastatin [Zocor -] 20 mg PO HS 06/18/15 Zolpidem Tartrate [Ambien] 10 mg PO HS 06/18/15 Carvedilol [Coreg -] 25 mg PO BID #60 tablet 06/20/15 Albuterol 0.083% Nebulizer Rosy [Ventolin 0.083% Nebulizer Soln -] 1 neb NEB QID PRN 02/18/16 Bupropion HCl [Wellbutrin -] 75 mg PO BID #60 tablet MDD 2 04/09/16 Oxycodone HCl/Acetaminophen [Percocet 10-325 mg Tablet] 1 each PO QID PRN #120 tablet MDD 4 06/09/16 Nicotine Patch [Nicoderm Patch -] 14 mg TD DAILY #30 patch 06/12/16
[2016-06-12 15:10] VITALS: BP 108/53; PULSE 70; TEMP 97.3
== END 2016-06-12 16:40 | disposition home or self-care (01) | DRG 291 ==
LOC: JER 18:29 → JERBED 20:00 → J4S 21:40
PROVIDERS: ADMIT Internal Medicine; ATTEND Internal Medicine
DX: I13.0 Hypertensive heart and chronic kidney disease with heart failure and stage 1 through stage 4 chronic kidney disease, or unspecified chronic kidney disease (principal); I50.31 Acute diastolic (congestive) heart failure; I47.1 Supraventricular tachycardia; I25.10 Atherosclerotic heart disease of native coronary artery without angina pectoris; I48.91 Unspecified atrial fibrillation; J44.9 Chronic obstructive pulmonary disease, unspecified; E11.9 Type 2 diabetes mellitus without complications; F17.210 Nicotine dependence, cigarettes, uncomplicated; N18.3 Chronic kidney disease, stage 3 (moderate); E78.5 Hyperlipidemia, unspecified; Z95.1 Presence of aortocoronary bypass graft; Z95.810 Presence of automatic (implantable) cardiac defibrillator; Z99.81 Dependence on supplemental oxygen
CPT/HCPCS: 36415; 71010-TC; 78452-TC; 80048; 80053; 82550; 83735; 83880; 84100; 84484; 85025; 85610; 87040; 87899; 93005; 93010; 93017; 93306-TC; 94640; 99285-25; A9502; G0463-25; J1245; J1644

== ENCOUNTER 2016-06-24 10:52 | Inpatient (IN) | payer OTHER ==
--- NOTE | 2016-06-24 11:28 | PDOC ---
Attending Attestation - Resident Resident Name: Lilian Naranjo - ED Attending Attestation I have performed the following: I have examined & evaluated the patient, The case was reviewed & discussed with the resident, I agree w/resident's findings & plan - HPI HPI: 06/24/16 11:22 61-year-old male with a past medical history of DM, COPD, CABG 3 in 2013, bioprosthetic aortic valve replacement in 2013, and PAD, status post bilateral SFA occlusions, systolic CHF, class IV, with an ejection fraction of 16%, status post Medtronic ICD placement, hypertension, hyperlipidemia, atrial tachycardia, who was recently admitted to the hospital with chest pain and shortness of breath During this admission, he had an echo, which showed a dilated LV with severely reduced LV function, and severe global hypokinesis, and elevated right ventricular systolic pressure He had a nuclear stress test, which showed nondiagnostic Persantine stress test due to baseline EKG abnormalities, and a nuclear stress test results showing large area of infarct in inferior, inferolateral, and lateral segments from apex to base, no ischemia, LVEF 16% global hypokinesis, with akinesis of inferior inferolateral and lateral allan, and severely enlarged LV cavity Patient was discharged from the hospital here 2 weeks ago Patient is complaining of 2 days of progressive shortness of breath and dyspnea on exertion, progressing to dyspnea with minimal exertion He is also had a dry cough which is nonproductive, and is complaining of chest pain only with his cough He does not have any chest pain at all if he does not cough He states that he just stopped smoking also He denies any change in his chronic edema, or his chronic abdominal distention He denies any abdominal pain He states that he has oxygen at home for when necessary use, but for the past 2 days he has been using it constantly He denies any fevers or chills, he denies any abdominal pain He denies any other complaints at this time - Physicial Exam PE: 06/24/16 11:45 Physical exam Last Vital Signs Temp Pulse Resp BP Pulse Ox 97.4 F L 77 18 133/73 98 06/24/16 10:54 06/24/16 10:54 06/24/16 10:54 06/24/16 10:54 06/24/16 11:25 GENERAL: The patient is awake, alert, and answering questions HEAD: Normal with no signs of trauma. EYES: sclera anicteric, conjunctiva are normal. ENT:Moist mucous membranes. NECK: Normal range of motion, supple . LUNGS: Bibasilar rales are noted, as well as scattered occasional rhonchi in all lung hernandez There is a prolonged expiratory phase, and diminished air movement in all lung hernandez HEART: Regular rate and rhythm, with systolic murmur ABDOMEN: Distended but Soft, nontender, normoactive bowel sounds. No guarding, no rebound. No masses appreciated. EXTREMITIES: 2+ pitting pedal edema NEUROLOGICAL: Cranial nerves II through XII grossly intact. Normal speech, motor strength equal in the upper and lower extremities bilaterally, alert and answering questions PSYCH: Normal mood, normal affect. SKIN: Warm, Dry, normal turgor, no rashes or lesions noted. 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 WPW, with a slurred upstroke segment There is evidence of prior infarcts on the EKG When compared with the EKGs of 06/20/16, patient was in an ectopic atrial tachycardia at that time with a rate of 110 And when compared with the EKG of 02/18/16, patient was in atrial fibrillation at that time There are no old sinus rhythm EKGs for comparison to today sinus rhythm EKG 06/24/16 11:48 61-year-old male with evidence of some degree of fluid overload/CHF exacerbation , as well as COPD exacerbation History pain is only with cough, and he just had a nuclear stress test Patient states that he just took his Lasix prior to coming to the ER, so would just add another 20 IV Will also give him a DuoNeb, and Solu-Medrol Check labwork, chest x-ray, EKG as noted above 06/24/16 12:49 Chest x-ray Enlarged heart, with pulmonary vascular congestion Opacity in the left lower lung zone is again seen, with a small left effusion 06/24/16 13:59 Laboratory Results - last 24 hr 06/24/16 06/24/16 06/24/16 11:45 11:45 11:45 WBC 9.2 D RBC 3.00 L Hgb 8.9 L Hct 27.0 L MCV 90.3 MCHC 33.1 RDW 16.4 H Plt Count 158 MPV 8.5 Sodium 138 Cancelled Potassium 4.6 Cancelled Chloride 101 Cancelled Carbon Dioxide 27 Cancelled Anion Gap 10 Cancelled BUN 35 H Cancelled Creatinine 1.4 H Cancelled Creat Clearance w eGFR 51.52 Cancelled Random Glucose 140 H D Cancelled Calcium 8.8 Cancelled Magnesium 1.6 L Total Bilirubin 0.6 D Cancelled AST 6 L Cancelled ALT 7 L Cancelled Alkaline Phosphatase 90 Cancelled Creatine Kinase 39 Troponin I 0.02 D B-Natriuretic Peptide 8847.04 H Total Protein 7.2 Cancelled Albumin 3.4 Cancelled 06/24/16 06/24/16 11:45 11:45 WBC RBC Hgb Hct MCV MCHC RDW Plt Count MPV Sodium Potassium Chloride Carbon Dioxide Anion Gap BUN Creatinine Creat Clearance w eGFR Random Glucose Calcium Magnesium Cancelled Total Bilirubin AST ALT Alkaline Phosphatase Creatine Kinase Troponin I B-Natriuretic Peptide Cancelled Total Protein Albumin 06/24/16 14:29 Impression-COPD exacerbation, CHF exacerbation, chest pain Case discussed with Dr. Morales-will admit Discharge Disposition - Diagnosis Obstructive chronic bronchitis with exacerbation, Acute on chronic congestive heart failure, Chest pain, Abnormal electrocardiography - Discharge Dispostion Last Admission D/C Date: 06/12/16 Admit: Yes
[2016-06-24] MEDS ORDERED: NITROGLYCERIN 2% OINTMENT - 1GM PACKET TD ONE (11:31)
[2016-06-24] MEDS: FUROSEMIDE 40 MG/4 ML INJECTABLE VIAL IVPB ONE ×2 (11:36→12:01)
[2016-06-24] MEDS ORDERED: FUROSEMIDE 40 MG/4 ML INJECTABLE VIAL ONE (11:39)
[2016-06-24] MEDS ORDERED: FUROSEMIDE 40 MG/4 ML INJECTABLE VIAL IVPB ONE (11:44)
[2016-06-24] MEDS ORDERED: methylPREDNISolone NA SUCC 125 MG/2 ML VIAL IVPB ONE (11:44)
--- NOTE | 2016-06-24 11:50 | PDOC ---
History of Present Illness - General Chief Complaint: Shortness of Breath Stated Complaint: CHEST PAIN, SOB (PACEMAKER) Time Seen by Provider: 06/24/16 11:11 - History of Present Illness Initial Comments: 06/24/16 11:48 The pt is a 61 year old male with a significant PMH of CABG, CAD, CHF, HTN, COPD , O2 Dependent, Diabetes Mellitus who presents to ED complaining of SOB, dyspnea with exertion and chest pain when coughing that is present for 2 days. He states that his cough is dry and he denies fever. He has been using Oxygen consistently recently. He states that his chest pain is mild, 4/10, sharp. He denies fever, chills, abdominal pain, N/V, diarrhea, constipation. He denies dysuria, increased frequency, urgency. He stopped smoking 4 days ago, 1 pack/ day. He was [facility] weeks ago. During previous admission he had ECHO and nuclear stress test done that revealed severely decreased LVEF-16%, global hypokinesis, increased right ventricular pressure. Hose Operator: Dr. Zafar PCP: Dr. Morales Past History - Travel Traveled outside of the country in the last 30 days: No Close contact w/someone who was outside of country & ill: No - Past Medical History Allergies/Adverse Reactions: Allergies Allergy/AdvReac Type Severity Reaction Status Date / Time codeine AdvReac Intermediate Vomiting Verified 06/24/16 10:53 gabapentin AdvReac Intermediate dizzy Verified 06/24/16 10:53 Home Medications: Ambulatory Orders Amlodipine Besylate [Norvasc -] 5 mg PO DAILY 06/18/15 Aspirin [Aspirin EC] 81 mg PO DAILY 06/18/15 Budesonide/Formeterol Fumarate [SYMBICORT 160/4.5mcg -] 1 inh PO DAILY 06/18/15 Cholecalciferol (Vitamin D3) [Vitamin D3] 2,000 unit PO DAILY 06/18/15 Cilostazol 50 mg PO DAILY 06/18/15 Clopidogrel Bisulfate [Clopidogrel] 75 mg PO DAILY 06/18/15 Furosemide [Lasix -] 40 mg PO DAILY 06/18/15 Insulin Detemir [Levemir Flextouch] 10 unit SQ PRN PRN 06/18/15 Lisinopril 5 mg PO DAILY 06/18/15 Metformin HCl [Glucophage] 1,000 mg PO BID 06/18/15 Simvastatin [Zocor -] 20 mg PO HS 06/18/15 Zolpidem Tartrate [Ambien] 10 mg PO HS 06/18/15 Carvedilol [Coreg -] 25 mg PO BID #60 tablet 06/20/15 Albuterol 0.083% Nebulizer Rosy [Ventolin 0.083% Nebulizer Soln -] 1 neb NEB QID PRN 02/18/16 Bupropion HCl [Wellbutrin -] 75 mg PO BID #60 tablet MDD 2 04/09/16 Oxycodone HCl/Acetaminophen [Percocet 10-325 mg Tablet] 1 each PO QID PRN #120 tablet MDD 4 06/09/16 Nicotine Patch [Nicoderm Patch -] 14 mg TD DAILY #30 patch 06/12/16 Anemia: No Asthma: No Cancer: No Cardiac Disorders: Yes (cabg, 3v 2-3 year prior,AFIB) CVA: No COPD: Yes CHF: No Dementia: No 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) GI Disorders: No Disorders: No HTN: Yes Hypercholesterolemia: Yes Liver Disease: No Suicide Attempt (Hx): No Seizures: No Thyroid Disease: No - Surgical History Abdominal Surgery: No Appendectomy: No Cardiac Surgery: Yes (CABG x 3 PACEMAKER) Cholecystectomy: No Lung Surgery: No Neurologic Surgery: No Orthopedic Surgery: No - Immunization History Td Vaccination: Yes (unknown) Immunization Up to Date: Yes - Psycho/Social/Smoking Cessation Hx Anxiety: No Suicidal Ideation: No Smoking Status: Yes Smoking History: Current every day smoker Years of Tobacco Use: 40 Have you smoked in the past 12 months: Yes Number of Cigarettes Smoked Daily: 15 If you are a former smoker, when did you quit?: 02/18/16 Cigars Per Day: 0 Information on smoking cessation initiated: Yes 'Breaking Loose' booklet given: 12/12/15 Hx Alcohol Use: No Drug/Substance Use Hx: No Substance Use Type: None Hx Substance Use Treatment: Yes (detox, new focus) Review of Systems - Review of Systems Able to Perform ROS?: Yes Comments:: 06/24/16 11:58 Absent: REVIEW OF SYSTEMS CONSTITUTIONAL: Absent: fever, chills, diaphoresis, generalized weakness, malaise, loss of appetite, weight change HEENT: Absent: rhinorrhea, nasal congestion, throat pain, throat swelling, difficulty swallowing, mouth swelling, ear pain, eye pain, visual changes CARDIOVASCULAR: chest pain, Absent: syncope, palpitations, irregular heart rate, lightheadedness, peripheral edema RESPIRATORY: cough, shortness of breath, dyspnea with exertion Absent: orthopnea, wheezing GASTROINTESTINAL: abdominal distension Absent: abdominal pain, nausea, vomiting, diarrhea, constipation, Absent: dysuria, frequency, urgency, hesitancy, hematuria, flank pain, genital pain MUSCULOSKELETAL: Absent: myalgia, arthralgia, joint swelling, back pain, neck pain SKIN: Absent: rash, itching, pallor HEMATOLOGIC/IMMUNOLOGIC: Absent: easy bleeding, easy bruising, lymphadenopathy, frequent infections ENDOCRINE: Absent: unexplained weight gain, unexplained weight loss, heat intolerance, cold intolerance NEUROLOGIC: Absent: headache, focal weakness or paresthesias, dizziness, unsteady gait, seizure, mental status changes PSYCHIATRIC: anxiety, depression Is the patient limited Sinhala proficient: No *Physical Exam - Vital Signs Last Vital Signs Temp Pulse Resp BP Pulse Ox 97.4 F L 77 18 133/73 98 06/24/16 10:54 06/24/16 10:54 06/24/16 10:54 06/24/16 10:54 06/24/16 11:25 - Physical Exam Comments: 06/24/16 12:00 GENERAL: The patient is awake, alert, and fully oriented, in no acute distress, on NC. HEAD: Normal with no signs of trauma. EYES: PERRL, extraocular movements intact, sclera anicteric, conjunctiva clear. ENT: Ears normal, nares patent, oropharynx clear without exudates, moist mucous membranes. NECK: Trachea midline, full range of motion, supple. LUNGS: Breath sounds equal, crackles bilaterally, scattered rhonchi, no wheezes , no accessory muscle use. HEART: Regular rate and rhythm, S1, S2, pansystolic murmur over left and right sternal border, no rub or gallop. ABDOMEN: Soft, nontender, distended, normoactive bowel sounds, no guarding, no rebound. EXTREMITIES: 2+ peripheral edema. NEUROLOGICAL: Normal speech, no facial asymmetry, gait not observed. PSYCH: Normal mood, normal affect. SKIN: Warm, dry, normal turgor, no rashes or lesions noted Heart Score/ECG Review - History History: Moderately suspicious - Electrocardiogram EKG: Non specific repolarization disturbance - Age Age: 45-65 - Risk Factors Risk Factors Heart Score: Yes Hx Hypercholesterolemia, Yes Hx Hypertension, Yes Hx Diabetes, Yes Smoking History Based on the list above the patient has:: >/=3 risk factors or Hx atherosclerotic disease - ECG Intrepretation Rhythm: PAC(s) - [place]: Left [place] Deviation - P and [place] Prolonged [place] Interval: 1st Degree Block(>20mils) Delta Wave(s) Present: Yes WPW: Yes ED Treatment Course - LABORATORY CBC & Chemistry Diagram: 06/24/16 11:45 06/24/16 11:45 - RADIOLOGY Radiology Studies Ordered: Category Date Time Status CHEST X-RAY PORTABLE* [RAD] Stat Radiology 06/24/16 11:41 Ordered - Medications Given in the ED: ED Medications Discontinued Medications Generic Name Dose Route Start Last Admin Trade Name Freq PRN Reason Stop Dose Admin Furosemide 40 mg 06/24/16 11:31 06/24/16 11:36 Lasix Injection - IVPB 06/24/16 11:32 40 mg ONCE ONE Administration Nitroglycerin 0.5 inch 06/24/16 11:31 06/24/16 11:36 Nitro-Bid 2% Paste - TD 06/24/16 11:32 0.5 inch ONCE ONE Administration Medical Decision Making - Medical Decision Making 06/24/16 12:03 61 yeal old male presents with SOB, dyspnea with exertion, chest pain. Differential diagnosis include COPD exacerbation, CHF exacerbation, ACS, URI. We ordered CXR, CBC, CMP, cardiac profile, Solu-medrol, Duonebs, Lasix 20 mg-pt reports taking Lasix today. 06/24/16 14:28 CXR reviewed: Enlarged heart, pulmonary vascular congestion, Opacity in the left lower lung zone is again seen, with a small left effusion. His BNP is elevated. The pt is admitted for COPD exacerbation/CHF exacerb./chest pain. We discussed the case with Dr. Morales who will admit the pt to telemetry. *DC/Admit/Observation/Transfer Diagnosis at time of Disposition: COPD exacerbation, CHF exacerbation, Chest pain, Abnormal EKG
[2016-06-24] MEDS ORDERED: methylPREDNISolone NA SUCC 125 MG/2 ML VIAL ONE (11:53)
[2016-06-24] MEDS ORDERED: ALBUTEROL SO4 2.5/IPRATROPIUM 0.5 INH SOL 3 ML VIAL.NEB. NEB ONE ×2 (11:53)
[2016-06-24] MEDS ORDERED: ALBUTEROL SO4 2.5/IPRATROPIUM 0.5 INH SOL 3 ML VIAL.NEB. NEB SCH (12:00)
[2016-06-24 12:56] LABS: MCH 29.8 pg (25.7-33.7); MCHC 33.1 g/dl (32.0-35.9); MEAN CELL VOLUME 90.3 fl (80-96); MEAN PLT VOLUME 8.5 fl (7.5-11.1); PLATELET COUNT 158 K/MM3 (134-434); RDW 16.4 % (11.9-15.9); WHITE BLOOD COUNT 9.2 K/mm3 (4.0-10.0)
[2016-06-24 13:22] LABS: ALBUMIN 3.4 g/dl (3.4-5.0); BILIRUBIN,TOTAL 0.6 mg/dL (0.2-1.0); CALCIUM 8.8 mg/dL (8.5-10.1); CREATININE 1.4 mg/dL (0.7-1.3); MAGNESIUM 1.6 mg/dL (1.8-2.4); TOT PROT 7.2 g/dl (6.4-8.2)
[2016-06-24 13:25] LABS: TROPONIN I 0.02 ng/ml (0.00-0.05)
[2016-06-24] MEDS ORDERED: ONDANSETRON 4 MG/2 ML VIAL IVPB PRN (15:50)
[2016-06-24] MEDS ORDERED: MAGNESIUM SULF 50% (8.12 MEQ/2 ML-1 GM VIAL) IVPB ONE (15:56)
[2016-06-24 15:57] VITALS: BMI 27.7
--- NOTE | 2016-06-24 16:03 | HP ---
Admitting History and Physical - Primary Care Physician PCP: Kanu Truong - Admission Chief Complaint: I'm short of breath History of Present Illness: Mr Owen is a pleasant 61 year old male who comes in with shortness of breath. He says it began two days ago. It was both at rest and on exertion. He could not lie flat secondary to shortness of breath. He is on chronic oxygen as needed, over the past two days has required oxygen all the time. He has a non- productive cough. He denies fevers, chills, lightheadedness, dizziness, passing out, chest pain/pressure, nausea, vomiting, diarrhea, constipation, difficulty or pain on urination, or worsening swelling (he has chronic swelling). He says he has been taking all his medications as prescribed. He has not liberalized the salt in his diet. He has not noticed any weight gain. He says he quit smoking two days ago and thinks that is the cause of this. History Source: Patient Limitations to Obtaining History: No Limitations - Past Medical History Cardiovascular: Yes: AFIB (after CABG briefly; not on AC), CAD, CHF, HTN Pulmonary: Yes: COPD, O2 Dependent Endocrine: Yes: Diabetes Mellitus - Past Surgical History Past Surgical History: Yes: AICD, CABG - Smoking History Smoking history: Current every day smoker Have you smoked in the past 12 months: Yes Aproximately how many cigarettes per day: 15 If you are a former smoker, when did you quit?: 02/18/16 - Alcohol/Substance Use Hx Alcohol Use: No History of Substance Use: reports: None - Social History ADL: Independent History of Recent Travel: No Home Medications - Allergies Allergies/Adverse Reactions: Allergies Allergy/AdvReac Type Severity Reaction Status Date / Time codeine AdvReac Intermediate Vomiting Verified 06/24/16 10:53 gabapentin AdvReac Intermediate dizzy Verified 06/24/16 10:53 - Home Medications Home Medications: Ambulatory Orders Amlodipine Besylate [Norvasc -] 5 mg PO DAILY 06/18/15 Aspirin [Aspirin EC] 81 mg PO DAILY 06/18/15 Budesonide/Formeterol Fumarate [SYMBICORT 160/4.5mcg -] 1 inh PO DAILY 06/18/15 Cholecalciferol (Vitamin D3) [Vitamin D3] 2,000 unit PO DAILY 06/18/15 Cilostazol 50 mg PO DAILY 06/18/15 Clopidogrel Bisulfate [Clopidogrel] 75 mg PO DAILY 06/18/15 Furosemide [Lasix -] 40 mg PO DAILY 06/18/15 Insulin Detemir [Levemir Flextouch] 10 unit SQ PRN PRN 06/18/15 Lisinopril 5 mg PO DAILY 06/18/15 Metformin HCl [Glucophage] 1,000 mg PO BID 06/18/15 Simvastatin [Zocor -] 20 mg PO HS 06/18/15 Zolpidem Tartrate [Ambien] 10 mg PO HS 06/18/15 Carvedilol [Coreg -] 25 mg PO BID #60 tablet 06/20/15 Albuterol 0.083% Nebulizer Rosy [Ventolin 0.083% Nebulizer Soln -] 1 neb NEB QID PRN 02/18/16 Bupropion HCl [Wellbutrin -] 75 mg PO BID #60 tablet MDD 2 04/09/16 Oxycodone HCl/Acetaminophen [Percocet 10-325 mg Tablet] 1 each PO QID PRN #120 tablet MDD 4 06/09/16 Nicotine Patch [Nicoderm Patch -] 14 mg TD DAILY #30 patch 06/12/16 Family Disease History - Family Disease History Family Disease History: Diabetes: Mother, Heart Disease: Father (etoh) Review of Systems Findings/Remarks: Full review of systems obtained, as per HPI and otherwise negative Physical Examination Vital Signs: Vital Signs Temperature 98.3 F 06/24/16 15:19 Pulse Rate 87 06/24/16 15:19 Respiratory Rate 20 06/24/16 15:19 Blood Pressure 130/80 06/24/16 15:19 O2 Sat by Pulse Oximetry (%) 98 06/24/16 15:30 Constitutional: Yes: Well Nourished, No Distress, Calm Eyes: Yes: Conjunctiva Clear, EOM Intact, PERRL HENT: Yes: Atraumatic, Normocephalic Cardiovascular: Yes: Regular Rate and Rhythm, Murmur. No: Gallop, Rub Respiratory: Yes: Regular, On Nasal O2, Rales. No: Rhonchi, Wheezes Gastrointestinal: Yes: Normal Bowel Sounds, Soft. No: Distention, Tenderness Extremities: Yes: WNL Edema: Yes Edema: LLE: 1+, RLE: 1+ Labs: Laboratory Results - last 24 hr 06/24/16 06/24/16 06/24/16 11:45 11:45 11:45 WBC 9.2 D RBC 3.00 L Hgb 8.9 L Hct 27.0 L MCV 90.3 MCHC 33.1 RDW 16.4 H Plt Count 158 MPV 8.5 Sodium 138 Cancelled Potassium 4.6 Cancelled Chloride 101 Cancelled Carbon Dioxide 27 Cancelled Anion Gap 10 Cancelled BUN 35 H Cancelled Creatinine 1.4 H Cancelled Creat Clearance w eGFR 51.52 Cancelled Random Glucose 140 H D Cancelled Calcium 8.8 Cancelled Magnesium 1.6 L Total Bilirubin 0.6 D Cancelled AST 6 L Cancelled ALT 7 L Cancelled Alkaline Phosphatase 90 Cancelled Creatine Kinase 39 Troponin I 0.02 D B-Natriuretic Peptide 8847.04 H Total Protein 7.2 Cancelled Albumin 3.4 Cancelled 06/24/16 06/24/16 11:45 11:45 WBC RBC Hgb Hct MCV MCHC RDW Plt Count MPV Sodium Potassium Chloride Carbon Dioxide Anion Gap BUN Creatinine Creat Clearance w eGFR Random Glucose Calcium Magnesium Cancelled Total Bilirubin AST ALT Alkaline Phosphatase Creatine Kinase Troponin I B-Natriuretic Peptide Cancelled Total Protein Albumin Imaging - Results Chest X-ray: Report Reviewed, Image Reviewed EKG: Image Reviewed Problem List - Problems (1) CHF exacerbation Assessment/Plan: -patient presents with CHF exacerbation -admit to telemetry -consult cardiology -received IV lasix in the ED -continue IV lasix, await cardiology recommendations -check cardiac enzymes x3, first set negative -I/Os and daily weights Code(s): I50.9 - HEART FAILURE, UNSPECIFIED Qualifiers: Congestive heart failure type: systolic Qualified Code(s): I50.23 - Acute on chronic systolic (congestive) heart failure (2) Acute on chronic respiratory failure with hypoxemia Assessment/Plan: -secondary to CHF exacerbation -continuous oxygen -diuresis Code(s): J96.21 - ACUTE AND CHRONIC RESPIRATORY FAILURE WITH HYPOXIA (3) COPD (chronic obstructive pulmonary disease) Assessment/Plan: -not in exacerbation -continue home regimen -will closely follow Code(s): J44.9 - CHRONIC OBSTRUCTIVE PULMONARY DISEASE, UNSPECIFIED (4) CAD (coronary artery disease) Assessment/Plan: -continue home regimen -check cardiac enzymes x3 -monitor on telemetry -currently chest pain free Code(s): I25.10 - ATHSCL HEART DISEASE OF [place] CORONARY ARTERY W/O ANG PCTRS (5) CKD (chronic kidney disease) Assessment/Plan: -at baseline -monitor since receiving lasix Code(s): N18.9 - CHRONIC KIDNEY DISEASE, UNSPECIFIED Qualifiers: Chronic kidney disease stage: stage 3 (moderate) Qualified Code(s): N18.3 - Chronic kidney disease, stage 3 (moderate) (6) Diabetes Assessment/Plan: -continue metformin, may need to hold if renal function worsens -SSI -diabetic diet Code(s): E11.9 - TYPE 2 DIABETES MELLITUS WITHOUT COMPLICATIONS Qualifiers: Diabetes mellitus type: type 2 Diabetes mellitus complication detail: with chronic kidney disease (7) HTN (hypertension) Assessment/Plan: -controlled -continue amlodipine, coreg, and lisinopril -also on IV lasix Code(s): I10 - ESSENTIAL (PRIMARY) HYPERTENSION Qualifiers: Hypertension type: essential hypertension Qualified Code(s): I10 - Essential (primary) hypertension
[2016-06-24] MEDS ORDERED: oxyCODONE HCL 5 MG TABLET PO PRN (16:14)
--- NOTE | 2016-06-24 17:04 | EKG ---
Test Reason : Blood Pressure : / mmHG Vent. Rate : 077 BPM Atrial Rate : 077 BPM P-R Int : 232 ms QRS Dur : 134 ms QT Int : 434 ms P-R-T Axes : 072 -38 119 degrees QTc Int : 491 ms SINUS RHYTHM WITH 1ST DEGREE A-V BLOCK WITH OCCASIONAL ventricular-paced complexes LEFT AXIS DEVIATION LEFT VENTRICULAR HYPERTROPHY WITH QRS WIDENING AND REPOLARIZATION ABNORMALITY POSSIBLE INFERIOR INFARCT , AGE UNDETERMINED ABNORMAL ECG WHEN COMPARED WITH ECG OF 10-JUN-2016 18:44, ELECTRONIC VENTRICULAR PACEMAKER HAS REPLACED ECTOPIC ATRIAL RHYTHM Confirmed by ODELL ALARCON MD ([id number]) on 06/24/2016 5:04:18 PM Referred By: Confirmed By:ODELL ALARCON MD
[2016-06-24] MEDS: metFORMIN HCL 500 MG TABLET (FP) PO SCH (17:19)
[2016-06-24] MEDS: oxyCODONE HCL 5 MG TABLET PO PRN (17:19)
--- NOTE | 2016-06-24 17:59 | CON.CARD ---
Consult Consult Specialty:: cardio Referred by:: cinda Reason for Consultation:: chf - History of Present Illness Chief Complaint: sob History of Present Illness: 61 yo male here again with sob. recently here 2-3 wks ago with sob, mild congestion on cxr. felt better after 2d iv lasix even though wt did not go down. lasix 40 po qd incr'd to 40 bid x 1 week on discharge, then back to 40 qd. says breathing felt better until 3-4 days ago when began getting winded easily and severely so if lays down--sleeping elevated >45 degrees on pillows. mild ankle swelling noted today. yest and today sob even with speaking no wheezing; dry cough--scant no sore throat/fever/chills no cp PMH: s/p cabg syst chf ckd - Past Medical History Cardio/Vascular: Yes: AFIB (after CABG briefly; not on AC), CAD, CHF, HTN Pulmonary: Yes: COPD, O2 Dependent Endocrine: Yes: Diabetes Mellitus - Past Surgical History Past Surgical History: Yes: AICD, CABG - Alcohol/Substance Use Hx Alcohol Use: No History of Substance Use: reports: None - Smoking History Smoking history: Current every day smoker Have you smoked in the past 12 months: Yes Aproximately how many cigarettes per day: 15 If you are a former smoker, when did you quit?: 02/18/16 - Social History Usual Living Arrangement: With Spouse ADL: Independent History of Recent Travel: No Home Medications - Allergies Allergies/Adverse Reactions: Allergies Allergy/AdvReac Type Severity Reaction Status Date / Time codeine AdvReac Intermediate Vomiting Verified 06/24/16 10:53 gabapentin AdvReac Intermediate dizzy Verified 06/24/16 10:53 - Home Medications Home Medications: Ambulatory Orders Amlodipine Besylate [Norvasc -] 5 mg PO DAILY 06/18/15 Aspirin [Aspirin EC] 81 mg PO DAILY 06/18/15 Budesonide/Formeterol Fumarate [SYMBICORT 160/4.5mcg -] 1 inh PO DAILY 06/18/15 Cholecalciferol (Vitamin D3) [Vitamin D3] 2,000 unit PO DAILY 06/18/15 Cilostazol 50 mg PO DAILY 06/18/15 Clopidogrel Bisulfate [Clopidogrel] 75 mg PO DAILY 06/18/15 Furosemide [Lasix -] 40 mg PO DAILY 06/18/15 Insulin Detemir [Levemir Flextouch] 10 unit SQ PRN PRN 06/18/15 Lisinopril 5 mg PO DAILY 06/18/15 Metformin HCl [Glucophage] 1,000 mg PO BID 06/18/15 Simvastatin [Zocor -] 20 mg PO HS 06/18/15 Zolpidem Tartrate [Ambien] 10 mg PO HS 06/18/15 Carvedilol [Coreg -] 25 mg PO BID #60 tablet 06/20/15 Albuterol 0.083% Nebulizer Rosy [Ventolin 0.083% Nebulizer Soln -] 1 neb NEB QID PRN 02/18/16 Bupropion HCl [Wellbutrin -] 75 mg PO BID #60 tablet MDD 2 04/09/16 Oxycodone HCl/Acetaminophen [Percocet 10-325 mg Tablet] 1 each PO QID PRN #120 tablet MDD 4 06/09/16 Nicotine Patch [Nicoderm Patch -] 14 mg TD DAILY #30 patch 06/12/16 Family Disease History - Family Disease History Family Disease History: Diabetes: Mother, Heart Disease: Father (etoh) Review of Systems - Review of Systems Constitutional: denies: Chills, Fever Eyes: denies: Eye Pain HENT: denies: Nasal Congestion Neck: denies: Stiffness Cardiovascular: denies: Palpitations Respiratory: reports: Orthopnea. denies: PND, Wheezing Gastrointestinal: denies: Diarrhea, Rectal Bleeding Genitourinary: denies: Burning, Hematuria Musculoskeletal: denies: Muscle Pain Integumentary: denies: Rash Neurological: denies: Numbness, Seizure, Syncope Endocrine: denies: Excessive Sweating Hematology/Lymphatic: denies: Excessive Bleeding Vital Signs: Vital Signs Temperature 98.3 F 06/24/16 15:19 Pulse Rate 87 06/24/16 15:19 Respiratory Rate 20 06/24/16 15:19 Blood Pressure 130/80 06/24/16 15:19 O2 Sat by Pulse Oximetry (%) 98 06/24/16 15:30 Constitutional: Yes: Well Nourished, No Distress Eyes: No: Sclera Icterus HENT: No: Nasal Congestion Neck: No: Decreased ROM Respiratory: Yes: CTA Bilaterally, Rales (L base). No: Accessory Muscle Use Gastrointestinal: Yes: Normal Bowel Sounds. No: Distention, Hepatomegaly, Palpable Mass, Tenderness Cardiovascular: Yes: Regular Rate and Rhythm JVD: Yes Carotid Bruit: No PMI: Non-Displaced Heart Sounds: Yes: S1, S2. No: Gallop Murmur: No: Systolic Murmur, Diastolic Murmur Musculoskeletal: Yes: Other (No kyphosis) Extremities: No: Cool, Cyanosis Edema: No Peripheral Pulses: 2+ Left Carotid, 2+ Right Carotid, 2+ Left Doralis Pedis, 2+ Right Dorsalis Pedis Integumentary: No: Jaundice Neurological: Yes: Alert, Oriented (x3) Psychiatric: No: Agitated - Other Data Labs, Other Data: Laboratory Tests 06/24/16 06/24/16 11:45 11:45 WBC 9.2 D Hgb 8.9 L Plt Count 158 Sodium 138 Potassium 4.6 Carbon Dioxide 27 BUN 35 H Creatinine 1.4 H AST 6 L ALT 7 L Creatine Kinase 39 Troponin I 0.02 D B-Natriuretic Peptide 8847.04 H ekg 06/24: NSR, APCs; intermittent V-paced; diffuse ST-Ts not changed vs prior Imaging - Results Chest X-ray: Report Reviewed, Image Reviewed Assessment/Plan echo 06/2015: mild lve, mod-sev dec lvef, mod lae, nl rv size, mild dec rv fcn, mild-mod mr, mild tr, nl avr fcn, rvsp 30-40 echo 06/2016: sev dec lvef, global hk, rv tds, trinity, mod-sev mr, mod tr, rvsp 50- 60 mibi 09/2014: large inf scar, mod anteroapical ischemia, lvef 25% mibi 06/2016 (pers): non-diagnostic STs; large area inferior/inferolateral/ lateral scar; no ischemia; severe LV cavity dilation; global HK with akinesis of inferior/inferolat/lateral allan; EF 16% a/p: 61 m hx copd, cabgx3 2012, bio avr 2012, pad s/p b/l sfa occlusions, syst chf s/p medtronic icd, htn, hld, a-tach, here with sob. aucte systolic chf: -here with ? mild acute decomp chf earlier this month--discharged after 2 days of iv diuresis; -came in on lasix 40 qd at that time, sent home on lasix 40 qd -? dry wt; was diuresed from 204 to 191 on d/c when here 02/19; was unchanged at 189 lbs x 2d in a row when recently here earlier this month, and may have been at hi filling pressures at that time -needs accurate standing wt -BNP 8K here (ranges 7K-12K on prior values) -CXR with diffuse interstitial markings changed vs 02/19, unchanged vs 06/20; probably vascular redistribution as well and L effusion--all stable vs 06/20 -+JVD to jaw at 60 degrees -suspect pt is being underdiuresed on lasix 40 qd and was not effectively diuresed when here couple weeks ago (likely hides hi filling pressures due to the chronicity of his chf) -given lasix 20 iv in ER -start lasix 80 iv qd -should not be discharged until wt is coming down and ideally neck veins less distended -QRS 130s msec--? 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--if not, should consider upgrade--f/u in office as outpatient -no ischemia on nuclear perfusion imaging then, no signs ACS cad/hx of CABG 2012 -no recent angina/ischemia -present sx's not suggestive for angina, no acute ecg changes, enzymes neg x 1 ( sx's smoldering x few days) -cont prior cad med regimen: deidra, dapt, statin, bb, ccb bio avr: -nl fcn on echo 06/20 mitral regurgitation: -likely functional MR, mild-mod on echo 06/19, then "mod-severe" when here 06/20 with suspected acute chf and pulm pressures up (though at risk for overestimation of MR severity on that echo report) - valve morphology not described (tethered leaflets?) -no murmur on exam -reassess MR severity on echo once pt adequately diuresed, though surgical or clip intervention not indicated/proven for functional MR CKD: -creat stable at baseline (1.4-1.5) -daily trend with diuresis pad: -stable, no claudication, cont current cardiac meds, pletal s/p icd: -no shocks -nl function on recent office check 05/2016 htn: -cont home meds hld: -cont statin atach: -minimal episodes seen in past on icd checks -cont bb -monitor tele anemia: -chronic, stable counts here vs baseline -per dr loo
[2016-06-24] MEDS: INSULIN SLIDING SCALE (NOVOLOG) 1 VIAL SQ SCH ×2 (18:32→21:36)
[2016-06-24] MEDS: FUROSEMIDE 40 MG/4 ML INJECTABLE VIAL IVPUSH SCH (19:14)
[2016-06-24] MEDS: HEPARIN NA (PORCINE) 5,000 UNITS/ML 1ML VIAL SQ SCH (21:08)
[2016-06-24] MEDS: ATORVASTATIN CA 10 MG TABLET (FP) PO SCH (21:08)
[2016-06-24] MEDS: CARVEDILOL 25 MG TABLET (FP) PO SCH (21:10)
[2016-06-24] MEDS: buPROPion HCL 75 MG TABLET PO SCH (21:10)
[2016-06-24 21:58] LABS: TROPONIN I < 0.02 ng/ml (0.00-0.05)
[2016-06-24] MEDS: BUDESONIDE/FORMETEROL FUMARATE 160/4.5 mcg INHALER IH SCH (22:17)
[2016-06-24] MEDS: ZOLPIDEM TARTRATE 5 MG TABLET PO PRN (22:17)
[2016-06-25] MEDS: INSULIN SLIDING SCALE (NOVOLOG) 1 VIAL SQ SCH ×4 (06:01→22:39)
[2016-06-25] MEDS: metFORMIN HCL 500 MG TABLET (FP) PO SCH ×2 (06:02→17:30)
[2016-06-25] MEDS: HEPARIN NA (PORCINE) 5,000 UNITS/ML 1ML VIAL SQ SCH ×3 (06:02→22:38)
[2016-06-25] MEDS: oxyCODONE HCL 5 MG TABLET PO PRN ×3 (06:05→19:48)
[2016-06-25 07:21] LABS: MCH 29.7 pg (25.7-33.7); MCHC 33.2 g/dl (32.0-35.9); MEAN CELL VOLUME 89.4 fl (80-96); MEAN PLT VOLUME 8.6 fl (7.5-11.1); PLATELET COUNT 136 K/MM3 (134-434); RDW 16.3 % (11.9-15.9); WHITE BLOOD COUNT 7.7 K/mm3 (4.0-10.0)
[2016-06-25 07:45] LABS: CALCIUM 8.3 mg/dL (8.5-10.1); CREATININE 1.3 mg/dL (0.7-1.3); MAGNESIUM 1.9 mg/dL (1.8-2.4); PHOSPHOROUS 3.1 mg/dL (2.5-4.9)
[2016-06-25] MEDS: CHOLECALCIFEROL (VITAMIN D3) 1,000 UNIT TABLET (FP) PO SCH (09:23)
[2016-06-25] MEDS: amLODIPine BESYLATE 5 MG TABLET (FP) PO SCH (09:23)
[2016-06-25] MEDS: ASPIRIN COATED 81 MG TABLET.EC PO SCH (09:23)
[2016-06-25] MEDS: buPROPion HCL 75 MG TABLET PO SCH ×2 (09:23→22:38)
[2016-06-25] MEDS: LISINOPRIL 5 MG TABLET (FP) PO SCH (09:24)
[2016-06-25] MEDS: CLOPIDOGREL BISULFATE 75 MG TABLET (FP) PO SCH (09:24)
[2016-06-25] MEDS: FUROSEMIDE 40 MG/4 ML INJECTABLE VIAL IVPUSH SCH (09:24)
[2016-06-25] MEDS: CARVEDILOL 25 MG TABLET (FP) PO SCH ×2 (09:24→22:38)
[2016-06-25] MEDS ORDERED: PT OWN MED DRAWER 7, Y5N ONE (09:26)
[2016-06-25] MEDS: BUDESONIDE/FORMETEROL FUMARATE 160/4.5 mcg INHALER IH SCH ×2 (09:27→22:39)
[2016-06-25] MEDS: NICOTINE 14 MG/24 HOURS TOPICAL PATCH TD SCH (09:31)
[2016-06-25 09:45] LABS: TROPONIN I 0.02 ng/ml (0.00-0.05)
[2016-06-25] MEDS ORDERED: FUROSEMIDE 40 MG TABLET (FP) PO SCH (10:00)
[2016-06-25] MEDS ORDERED: FUROSEMIDE 40 MG/4 ML INJECTABLE VIAL IVPB SCH (10:00)
--- NOTE | 2016-06-25 10:54 | PN ---
Progress Note (short form) - Note Progress Note: s: no cp sob palps dizzy o: Vital Signs Period Temp Pulse Resp BP Sys/El Pulse Ox Last 24 Hr 97.2 F-99.2 F 72-105 18-20 114-160/66-84 96-98 Constitutional: Yes: Well Nourished, No Distress Eyes: No: Sclera Icterus Respiratory: Yes: CTA Bilaterally, nl eff. No: Accessory Muscle Use Gastrointestinal: Yes: Normal Bowel Sounds. No: Distention, Hepatomegaly, Palpable Mass, Tenderness Cardiovascular: Yes: Regular Rate and Rhythm JVD: Yes Heart Sounds: Yes: S1, S2. No: Gallop Murmur: No: Systolic Murmur, Diastolic Murmur Extremities: No: Cool, Cyanosis Edema: No Integumentary: No: Jaundice diaphoresis Neurological: Yes: Alert, Oriented (x3) Psychiatric: No: Agitated Current Medications Generic Name Dose Route Start Last Admin Trade Name Freq PRN Reason Stop Dose Admin Acetaminophen 650 mg 06/24/16 15:50 Tylenol - PO Q4H PRN FEVER OR PAIN Acetaminophen 325 mg 06/24/16 16:14 Tylenol - PO Q6H PRN PAIN Albuterol Sulfate 1 amp 06/24/16 15:47 Ventolin 0.083% Nebulizer Soln - NEB Q6H PRN SHORT OF BREATH/WHEEZING Amlodipine Besylate 5 mg 06/25/16 10:00 06/25/16 09:23 Norvasc - PO 5 mg DAILY MANJU Administration Aspirin 81 mg 06/25/16 10:00 06/25/16 09:23 Ecotrin - PO 81 mg DAILY MANJU Administration Atorvastatin Calcium 10 mg 06/24/16 22:00 06/24/16 21:08 Lipitor - PO 10 mg HS MANJU Administration Budesonide/Formoterol Fumarate 2 puff 06/24/16 22:00 06/25/16 09:27 Symbicort 160/4.5mcg - IH 2 puff BID MANJU Administration Bupropion HCl 75 mg 06/24/16 22:00 06/25/16 09:23 Wellbutrin - PO 75 mg BID MANJU Administration Carvedilol 25 mg 06/24/16 22:00 06/25/16 09:24 Coreg - PO 25 mg BID MANJU Administration Cholecalciferol 2,000 unit 06/25/16 10:00 06/25/16 09:23 Vitamin D3 - PO 2,000 unit DAILY MANJU Administration Cilostazol 50 mg 06/25/16 10:00 Pletal - PO DAILY MANJU Clopidogrel Bisulfate 75 mg 06/25/16 10:00 06/25/16 09:24 Plavix - PO 75 mg DAILY MANJU Administration Furosemide 80 mg 06/24/16 18:30 06/25/16 09:24 Lasix Injection - IVPUSH 80 mg DAILY MANJU Administration Heparin Sodium (Porcine) 5,000 unit 06/24/16 22:00 06/25/16 06:02 Heparin - SQ 5,000 unit TID MANJU Administration Insulin Aspart 1 vial 06/24/16 16:30 06/25/16 06:01 Novolog Vial Sliding Scale - SQ 2 units ACHS MANJU Administration Protocol Lisinopril 5 mg 06/25/16 10:00 06/25/16 09:24 Prinivil PO 5 mg DAILY MANJU Administration Metformin HCl 1,000 mg 06/24/16 16:30 06/25/16 06:02 Glucophage - PO 1,000 mg BIDAC MANJU Administration Nicotine 14 mg 06/25/16 10:00 06/25/16 09:31 Nicoderm Patch - TD Not Given DAILY [facility] Ondansetron HCl 4 mg 06/24/16 15:50 Zofran Injection IVPB Q6H PRN NAUSEA Oxycodone HCl 10 mg 06/24/16 16:15 06/25/16 06:05 Roxicodone - PO 10 mg Q6H PRN Administration PAIN LEVEL 6-10 Zolpidem Tartrate 10 mg 06/24/16 22:03 06/24/16 22:17 Ambien - PO 10 mg HS PRN Administration INSOMNIA CBC, BMP 06/25/16 05:35 06/25/16 05:35 echo 06/2015: mild lve, mod-sev dec lvef, mod lae, nl rv size, mild dec rv fcn, mild-mod mr, mild tr, nl avr fcn, rvsp 30-40 echo 06/2016: sev dec lvef, global hk, rv tds, trinity, mod-sev mr, mod tr, rvsp 50- 60 mibi 09/2014: large inf scar, mod anteroapical ischemia, lvef 25% mibi 06/2016 (pers): non-diagnostic STs; large area inferior/inferolateral/ lateral scar; no ischemia; severe LV cavity dilation; global HK with akinesis of inferior/inferolat/lateral allan; EF 16% tele: sr, pvcs a/p: 61 m hx copd, cabgx3 2012, bio avr 2012, pad s/p b/l sfa occlusions, syst chf s/p medtronic icd, htn, hld, a-tach, here with sob. aucte systolic chf: -here with ? mild acute decomp chf earlier this month--discharged after 2 days of iv diuresis; -came in on lasix 40 qd at that time, sent home on lasix 40 qd -? dry wt; was diuresed from 204 to 191 on d/c when here 02/19; was unchanged at 189 lbs x 2d in a row when recently here earlier this month, and may have been at hi filling pressures at that time -needs accurate standing wt -BNP 8K here (ranges 7K-12K on prior values) -CXR with diffuse interstitial markings changed vs 02/19, unchanged vs 06/20; probably vascular redistribution as well and L effusion--all stable vs 06/20 -suspect pt is being underdiuresed on lasix 40 qd and was not effectively diuresed when here couple weeks ago (likely hides hi filling pressures due to the chronicity of his chf) -cont lasix 80 iv qd, monitor daily chemistry, wts -should not be discharged until wt is coming down and ideally neck veins less distended -QRS 130s msec--? 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--if not, should consider upgrade--f/u in office as outpatient -no ischemia on nuclear perfusion imaging this month, no signs ACS here cad/hx of CABG 2012 -no recent angina/ischemia -present sx's not suggestive for angina, no acute ecg changes, enzymes neg x 3 -cont prior cad med regimen: deidra, dapt, statin, bb, ccb bio avr: -nl fcn on echo 06/20 mitral regurgitation: -likely functional MR, mild-mod on echo 06/19, then "mod-severe" when here 06/20 with suspected acute chf and pulm pressures up (though at risk for overestimation of MR severity on that echo report) - valve morphology not described (tethered leaflets?) -no murmur on exam -reassess MR severity on echo once pt adequately diuresed, though surgical or clip intervention not indicated/proven for functional MR CKD: -creat stable at baseline (1.4-1.5) -daily trend with diuresis pad: -stable, no claudication, cont current cardiac meds, pletal s/p icd: -no shocks -nl function on recent office check 05/2016 htn: -cont home meds hld: -cont statin atach: -minimal episodes seen in past on icd checks -cont bb -monitor tele anemia: -chronic, stable counts here vs baseline -per pmd
[2016-06-25] MEDS: ACETAMINOPHEN 325 MG TABLET (FP) PO PRN ×2 (13:41→19:49)
--- NOTE | 2016-06-25 15:18 | PN ---
Progress Note, Physician Chief Complaint: Mr Owen says he is breathing much better today, is not short of breath currently. Denies cp and n/v. - Current Medication List Current Medications: Active Medications Acetaminophen (Tylenol -) 650 mg PO Q4H PRN PRN Reason: FEVER OR PAIN Acetaminophen (Tylenol -) 325 mg PO Q6H PRN PRN Reason: PAIN Last Admin: 06/25/16 13:41 Dose: 325 mg Albuterol Sulfate (Ventolin 0.083% Nebulizer Soln -) 1 amp NEB Q6H PRN PRN Reason: SHORT OF BREATH/WHEEZING Amlodipine Besylate (Norvasc -) 5 mg PO DAILY [facility] Last Admin: 06/25/16 09:23 Dose: 5 mg Aspirin (Ecotrin -) 81 mg PO DAILY [facility] Last Admin: 06/25/16 09:23 Dose: 81 mg Atorvastatin Calcium (Lipitor -) 10 mg PO HS [facility] Last Admin: 06/24/16 21:08 Dose: 10 mg Budesonide/Formoterol Fumarate (Symbicort 160/4.5mcg -) 2 puff IH BID [facility] Last Admin: 06/25/16 09:27 Dose: 2 puff Bupropion HCl (Wellbutrin -) 75 mg PO BID [facility] Last Admin: 06/25/16 09:23 Dose: 75 mg Carvedilol (Coreg -) 25 mg PO BID [facility] Last Admin: 06/25/16 09:24 Dose: 25 mg Cholecalciferol (Vitamin D3 -) 2,000 unit PO DAILY [facility] Last Admin: 06/25/16 09:23 Dose: 2,000 unit Cilostazol (Pletal -) 50 mg PO DAILY [facility] Clopidogrel Bisulfate (Plavix -) 75 mg PO DAILY [facility] Last Admin: 06/25/16 09:24 Dose: 75 mg Furosemide (Lasix Injection -) 80 mg IVPUSH DAILY [facility] Last Admin: 06/25/16 09:24 Dose: 80 mg Heparin Sodium (Porcine) (Heparin -) 5,000 unit SQ TID [facility] Last Admin: 06/25/16 14:23 Dose: Not Given Insulin Aspart (Novolog Vial Sliding Scale -) 1 vial SQ ACHS [facility] PRN Reason: Protocol Last Admin: 06/25/16 12:43 Dose: Not Given Lisinopril (Prinivil) 5 mg PO DAILY [facility] Last Admin: 06/25/16 09:24 Dose: 5 mg Metformin HCl (Glucophage -) 1,000 mg PO BIDAC [facility] Last Admin: 06/25/16 06:02 Dose: 1,000 mg Nicotine (Nicoderm Patch -) 14 mg TD DAILY [facility] Last Admin: 06/25/16 09:31 Dose: Not Given Ondansetron HCl (Zofran Injection) 4 mg IVPB Q6H PRN PRN Reason: NAUSEA Oxycodone HCl (Roxicodone -) 10 mg PO Q6H PRN PRN Reason: PAIN LEVEL 6-10 Last Admin: 06/25/16 13:40 Dose: 10 mg Zolpidem Tartrate (Ambien -) 10 mg PO HS PRN PRN Reason: INSOMNIA Last Admin: 06/24/16 22:17 Dose: 10 mg - Objective Vital Signs: Vital Signs Temperature 97.1 F L 06/25/16 14:33 Pulse Rate 103 H 06/25/16 14:33 Respiratory Rate 20 06/25/16 14:33 Blood Pressure 144/78 06/25/16 14:33 O2 Sat by Pulse Oximetry (%) 97 06/25/16 09:00 Constitutional: Yes: Well Nourished, No Distress, Calm Cardiovascular: Yes: Regular Rate and Rhythm, JVD, Murmur. No: Gallop, Rub Respiratory: Yes: Regular, On Nasal O2, Rhonchi (improved). No: Rales, Wheezes Gastrointestinal: Yes: Normal Bowel Sounds, Soft. No: Distention, Tenderness Extremities: Yes: WNL Edema: No Labs: CBC, BMP 06/25/16 05:35 06/25/16 05:35 Problem List - Problems (1) CHF exacerbation Code(s): I50.9 - HEART FAILURE, UNSPECIFIED Qualifiers: Congestive heart failure type: systolic Qualified Code(s): I50.23 - Acute on chronic systolic (congestive) heart failure (2) Acute on chronic respiratory failure with hypoxemia Code(s): J96.21 - ACUTE AND CHRONIC RESPIRATORY FAILURE WITH HYPOXIA (3) COPD (chronic obstructive pulmonary disease) Code(s): J44.9 - CHRONIC OBSTRUCTIVE PULMONARY DISEASE, UNSPECIFIED (4) CAD (coronary artery disease) Code(s): I25.10 - ATHSCL HEART DISEASE OF [place] CORONARY ARTERY W/O ANG PCTRS (5) CKD (chronic kidney disease) Code(s): N18.9 - CHRONIC KIDNEY DISEASE, UNSPECIFIED Qualifiers: Chronic kidney disease stage: stage 3 (moderate) Qualified Code(s): N18.3 - Chronic kidney disease, stage 3 (moderate) (6) Diabetes Code(s): E11.9 - TYPE 2 DIABETES MELLITUS WITHOUT COMPLICATIONS Qualifiers: Diabetes mellitus type: type 2 Diabetes mellitus complication detail: with chronic kidney disease (7) HTN (hypertension) Code(s): I10 - ESSENTIAL (PRIMARY) HYPERTENSION Qualifiers: Hypertension type: essential hypertension Qualified Code(s): I10 - Essential (primary) hypertension Assessment/Plan (1) CHF exacerbation Assessment/Plan: -appreciate cardiology assistance, note reviewed -improving on increased lasix dose -continue lasix 80mg IV daily per cardiology recommendations -continue lisinopril Code(s): I50.9 - HEART FAILURE, UNSPECIFIED Qualifiers: Congestive heart failure type: systolic Qualified Code(s): I50.23 - Acute on chronic systolic (congestive) heart failure (2) Acute on chronic respiratory failure with hypoxemia Assessment/Plan: -improving -continue treating CHF exacerbation Code(s): J96.21 - ACUTE AND CHRONIC RESPIRATORY FAILURE WITH HYPOXIA (3) COPD (chronic obstructive pulmonary disease) Assessment/Plan: -not in exacerbation -continue home regimen -will closely follow Code(s): J44.9 - CHRONIC OBSTRUCTIVE PULMONARY DISEASE, UNSPECIFIED (4) CAD (coronary artery disease) Assessment/Plan: -recent stress test, no change from prior -no chest pain -cardiology following, continue medical management Code(s): I25.10 - ATHSCL HEART DISEASE OF [place] CORONARY ARTERY W/O ANG PCTRS (5) CKD (chronic kidney disease) Assessment/Plan: -at baseline -monitor since receiving lasix Code(s): N18.9 - CHRONIC KIDNEY DISEASE, UNSPECIFIED Qualifiers: Chronic kidney disease stage: stage 3 (moderate) Qualified Code(s): N18.3 - Chronic kidney disease, stage 3 (moderate) (6) Diabetes Assessment/Plan: -continue metformin -SSI -diabetic diet Code(s): E11.9 - TYPE 2 DIABETES MELLITUS WITHOUT COMPLICATIONS Qualifiers: Diabetes mellitus type: type 2 Diabetes mellitus complication detail: with chronic kidney disease (7) HTN (hypertension) Assessment/Plan: -controlled, but may need tighter management -continue amlodipine, coreg, and lisinopril -monitor on increased IV lasix dose Code(s): I10 - ESSENTIAL (PRIMARY) HYPERTENSION Qualifiers: Hypertension type: essential hypertension Qualified Code(s): I10 - Essential (primary) hypertension
[2016-06-25] MEDS: CILOSTAZOL 50 MG TABLET (FP) PO SCH (18:16)
[2016-06-25] MEDS: ALBUTEROL SO4 0.083% IH SOL 2.5 MG/3 ML VIAL.NEB. NEB PRN (22:13)
[2016-06-25] MEDS: ATORVASTATIN CA 10 MG TABLET (FP) PO SCH (22:38)
[2016-06-25] MEDS: ZOLPIDEM TARTRATE 5 MG TABLET PO PRN (22:38)
[2016-06-26] MEDS: oxyCODONE HCL 5 MG TABLET PO PRN ×2 (05:56→16:48)
[2016-06-26] MEDS: HEPARIN NA (PORCINE) 5,000 UNITS/ML 1ML VIAL SQ SCH ×3 (05:56→21:18)
[2016-06-26] MEDS: ACETAMINOPHEN 325 MG TABLET (FP) PO PRN ×2 (05:57→16:50)
[2016-06-26] MEDS: metFORMIN HCL 500 MG TABLET (FP) PO SCH ×3 (05:58→17:04)
[2016-06-26] MEDS: INSULIN SLIDING SCALE (NOVOLOG) 1 VIAL SQ SCH ×4 (06:08→21:22)
[2016-06-26] MEDS: ALBUTEROL SO4 0.083% IH SOL 2.5 MG/3 ML VIAL.NEB. NEB PRN ×2 (06:57→22:15)
[2016-06-26 07:49] LABS: EOSINOPHIL 2.9 % (0-4.5); MCH 30.2 pg (25.7-33.7); MCHC 33.8 g/dl (32.0-35.9); MEAN CELL VOLUME 89.4 fl (80-96); MEAN PLT VOLUME 8.5 fl (7.5-11.1); NEUTROPHILS 73.3 % (42.8-82.8); PLATELET COUNT 154 K/MM3 (134-434); RDW 16.2 % (11.9-15.9); WHITE BLOOD COUNT 7.8 K/mm3 (4.0-10.0)
[2016-06-26 08:30] LABS: CALCIUM 8.7 mg/dL (8.5-10.1); CREATININE 1.3 mg/dL (0.7-1.3); MAGNESIUM 1.6 mg/dL (1.8-2.4); PHOSPHOROUS 3.1 mg/dL (2.5-4.9)
[2016-06-26] MEDS ORDERED: MAGNESIUM SULF 50% (8.12 MEQ/2 ML-1 GM VIAL) IVPB ONE (09:30)
[2016-06-26] MEDS: CHOLECALCIFEROL (VITAMIN D3) 1,000 UNIT TABLET (FP) PO SCH (09:30)
[2016-06-26] MEDS: LISINOPRIL 5 MG TABLET (FP) PO SCH (09:30)
[2016-06-26] MEDS: CILOSTAZOL 50 MG TABLET (FP) PO SCH (09:30)
[2016-06-26] MEDS: CARVEDILOL 25 MG TABLET (FP) PO SCH ×2 (09:30→21:22)
[2016-06-26] MEDS: buPROPion HCL 75 MG TABLET PO SCH ×2 (09:30→21:22)
[2016-06-26] MEDS: ASPIRIN COATED 81 MG TABLET.EC PO SCH (09:30)
[2016-06-26] MEDS: amLODIPine BESYLATE 5 MG TABLET (FP) PO SCH (09:30)
[2016-06-26] MEDS: CLOPIDOGREL BISULFATE 75 MG TABLET (FP) PO SCH (09:30)
[2016-06-26] MEDS: NICOTINE 14 MG/24 HOURS TOPICAL PATCH TD SCH (09:31)
[2016-06-26] MEDS: BUDESONIDE/FORMETEROL FUMARATE 160/4.5 mcg INHALER IH SCH ×2 (09:31→21:22)
[2016-06-26] MEDS: FUROSEMIDE 40 MG/4 ML INJECTABLE VIAL IVPUSH SCH (09:32)
--- NOTE | 2016-06-26 10:00 | PN ---
Physical Exam: SUBJECTIVE: Patient seen and examined. Denies chest pain or shortness of breath. On 2 liters of nasal cannula, states he is tolerating periods without using oxygen when ambulating. OBJECTIVE: Vital Signs Period Temp Pulse Resp BP Sys/El Pulse Ox Last 24 Hr 97.1 F-98 F 81-107 18-20 112-158/64-87 GENERAL: The patient is awake, alert, and fully oriented, in no acute distress. HEAD: Normal with no signs of trauma. EYES: PERRL, extraocular movements intact, sclera anicteric, conjunctiva clear. No ptosis. ENT: Ears normal, nares patent, oropharynx clear without exudates, moist mucous membranes. NECK: Trachea midline, full range of motion, supple. LUNGS: bilateral lung sound diminished, no wheezing HEART: Regular rate and rhythm, S1, S2 without murmur, rub or gallop. ABDOMEN: Soft, nontender, nondistended, normoactive bowel sounds, no guarding, no rebound, no hepatosplenomegaly, no masses. EXTREMITIES: 2+ pulses, warm, well-perfused, no edema. NEUROLOGICAL: Normal speech, gait not observed. PSYCH: Normal mood, normal affect. SKIN: Warm, dry, normal turgor, no rashes or lesions noted Laboratory Results - last 24 hr 06/25/16 06/25/16 06/25/16 12:41 15:41 22:33 WBC RBC Hgb Hct MCV MCHC RDW Plt Count MPV Neutrophils % Lymphocytes % Monocytes % Eosinophils % Basophils % Sodium Potassium Chloride Carbon Dioxide Anion Gap BUN Creatinine POC Glucometer 161 138 150 Random Glucose Calcium Phosphorus Magnesium 06/26/16 06/26/16 06/26/16 05:35 05:35 05:52 WBC 7.8 RBC 2.77 L Hgb 8.4 L Hct 24.7 L MCV 89.4 MCHC 33.8 RDW 16.2 H Plt Count 154 MPV 8.5 Neutrophils % 73.3 Lymphocytes % 16.1 D Monocytes % 6.7 Eosinophils % 2.9 Basophils % 1.0 Sodium 139 Potassium 4.3 Chloride 99 Carbon Dioxide 28 Anion Gap 12 BUN 39 H Creatinine 1.3 POC Glucometer 132 Random Glucose 109 H D Calcium 8.7 Phosphorus 3.1 Magnesium 1.6 L Active Medications Generic Name Dose Route Start Last Admin Trade Name Freq PRN Reason Stop Dose Admin Acetaminophen 650 mg 06/24/16 15:50 06/26/16 05:57 Tylenol - PO 650 mg Q4H PRN Administration FEVER OR PAIN Acetaminophen 325 mg 06/24/16 16:14 06/25/16 13:41 Tylenol - PO 325 mg Q6H PRN Administration PAIN Albuterol Sulfate 1 amp 06/24/16 15:47 06/26/16 06:57 Ventolin 0.083% Nebulizer Soln - NEB 1 amp Q6H PRN Administration SHORT OF BREATH/WHEEZING Amlodipine Besylate 5 mg 06/25/16 10:00 06/26/16 09:30 Norvasc - PO 5 mg DAILY [facility] Administration Aspirin 81 mg 06/25/16 10:00 06/26/16 09:30 Ecotrin - PO 81 mg DAILY [facility] Administration Atorvastatin Calcium 10 mg 06/24/16 22:00 06/25/16 22:38 Lipitor - PO 10 mg HS [facility] Administration Budesonide/Formoterol Fumarate 2 puff 06/24/16 22:00 06/26/16 09:31 Symbicort 160/4.5mcg - IH 2 puff BID [facility] Administration Bupropion HCl 75 mg 06/24/16 22:00 06/26/16 09:30 Wellbutrin - PO 75 mg BID [facility] Administration Carvedilol 25 mg 06/24/16 22:00 06/26/16 09:30 Coreg - PO 25 mg BID [facility] Administration Cholecalciferol 2,000 unit 06/25/16 10:00 06/26/16 09:30 Vitamin D3 - PO 2,000 unit DAILY [facility] Administration Cilostazol 50 mg 06/25/16 10:00 06/26/16 09:30 Pletal - PO 50 mg DAILY [facility] Administration Clopidogrel Bisulfate 75 mg 06/25/16 10:00 06/26/16 09:30 Plavix - PO 75 mg DAILY [facility] Administration Furosemide 80 mg 06/24/16 18:30 06/26/16 09:32 Lasix Injection - IVPUSH 80 mg DAILY [facility] Administration Heparin Sodium (Porcine) 5,000 unit 06/24/16 22:00 06/26/16 05:56 Heparin - SQ 5,000 unit TID [facility] Administration Insulin Aspart 1 vial 06/24/16 16:30 06/26/16 06:08 Novolog Vial Sliding Scale - SQ Not Given ACHS [facility] Protocol Lisinopril 5 mg 06/25/16 10:00 06/26/16 09:30 Prinivil PO 5 mg DAILY [facility] Administration Metformin HCl 1,000 mg 06/24/16 16:30 06/26/16 05:58 Glucophage - PO 1,000 mg BIDAC [facility] Administration Nicotine 14 mg 06/25/16 10:00 06/26/16 09:31 Nicoderm Patch - TD Not Given DAILY [facility] Ondansetron HCl 4 mg 06/24/16 15:50 Zofran Injection IVPB Q6H PRN NAUSEA Oxycodone HCl 10 mg 06/24/16 16:15 06/26/16 05:56 Roxicodone - PO 10 mg Q6H PRN Administration PAIN LEVEL 6-10 Zolpidem Tartrate 10 mg 06/24/16 22:03 06/25/16 22:38 Ambien - PO 10 mg HS PRN Administration INSOMNIA ASSESSMENT/PLAN: Patient is a 61 year old male with a significant past medical history of CABG, CAD, CHF, HTN, COPD, home oxygen dependent and DM. He presents to the ER on with SOB, dyspnea with exertion and chest pain when coughing x 2 days. At home he states that he was using his oxygen more frequently as he normally uses it as needed. He denies fever, chills, abdominal pain, N/V, diarrhea, constipation. Cardiology: Congestive Heart Failure - acute on chronic Assessment/Plan: On Lasix 80mg iv push daily Troponins negative x 3 monitor intake and output daily weights obtain pre and post, on home oxygen therapy prn Coronary Artery Disease/Hypertension Assessment/Plan: No chest pain on exam, on Plavix, coreq 25mg PO BID Plavix 75mg PO daily Pulmonary: Hypoxia - acute on chronic respiratory failure Assessment/Plan: Likely secondary to CHF exacerbation On 2 - 3 liters of continuous oxygen Lasix as per cardiology : Chronic Kidney Disease Assessment/Plan: Monitor BMP daily Endocrine: Diabetes Mellitus Assessment/Plan: On Metformin BID Monitor on sliding scale diabetic diet F.E.N. Fluids: no ivf/on Lasix Electrolytes: hypomagnesium repleted with Mag 2 gram IV x 1 Nutrition: diabetic diet Prophylaxis: GI: coalce, zofran DVT:heparin BID, ambulation Disposition; Requires inpatient hospitalization. Full Code. Visit type - Emergency Visit Emergency Visit: Yes ED Registration Date: 06/24/16 Care time: The patient presented to the Emergency Department on the above date and was hospitalized for further evaluation of their emergent condition. - New Patient This patient is new to me today: Yes Date on this admission: 07/26/16 - Critical Care Critical Care patient: No - Discharge Referral Referred to [facility] Med P.C.: No
--- NOTE | 2016-06-26 11:01 | PN ---
Progress Note (short form) - Note Progress Note: s: no cp sob palps dizzy o: Vital Signs Period Temp Pulse Resp BP Sys/El Pulse Ox Last 24 Hr 97.1 F-98 F 81-107 18-20 112-158/64-87 Constitutional: Yes: Well Nourished, No Distress Eyes: No: Sclera Icterus Respiratory: Yes: CTA Bilaterally, nl eff. No: Accessory Muscle Use Gastrointestinal: Yes: Normal Bowel Sounds. No: Distention, Hepatomegaly, Palpable Mass, Tenderness Cardiovascular: Yes: Regular Rate and Rhythm JVD: Yes, improving Heart Sounds: Yes: S1, S2. No: Gallop Murmur: No: Systolic Murmur, Diastolic Murmur Extremities: No: Cool, Cyanosis Edema: No Integumentary: No: Jaundice diaphoresis Neurological: Yes: Alert, Oriented (x3) Psychiatric: No: Agitated Current Medications Generic Name Dose Route Start Last Admin Trade Name Freq PRN Reason Stop Dose Admin Acetaminophen 650 mg 06/24/16 15:50 06/26/16 05:57 Tylenol - PO 650 mg Q4H PRN Administration FEVER OR PAIN Acetaminophen 325 mg 06/24/16 16:14 06/25/16 13:41 Tylenol - PO 325 mg Q6H PRN Administration PAIN Albuterol Sulfate 1 amp 06/24/16 15:47 06/26/16 06:57 Ventolin 0.083% Nebulizer Soln - NEB 1 amp Q6H PRN Administration SHORT OF BREATH/WHEEZING Amlodipine Besylate 5 mg 06/25/16 10:00 06/26/16 09:30 Norvasc - PO 5 mg DAILY [facility] Administration Aspirin 81 mg 06/25/16 10:00 06/26/16 09:30 Ecotrin - PO 81 mg DAILY [facility] Administration Atorvastatin Calcium 10 mg 06/24/16 22:00 06/25/16 22:38 Lipitor - PO 10 mg HS [facility] Administration Budesonide/Formoterol Fumarate 2 puff 06/24/16 22:00 06/26/16 09:31 Symbicort 160/4.5mcg - IH 2 puff BID [facility] Administration Bupropion HCl 75 mg 06/24/16 22:00 06/26/16 09:30 Wellbutrin - PO 75 mg BID [facility] Administration Carvedilol 25 mg 06/24/16 22:00 03/23/17 09:30 Coreg - PO 25 mg BID [facility] Administration Cholecalciferol 2,000 unit 06/25/16 10:00 06/26/16 09:30 Vitamin D3 - PO 2,000 unit DAILY [facility] Administration Cilostazol 50 mg 06/25/16 10:00 06/26/16 09:30 Pletal - PO 50 mg DAILY [facility] Administration Clopidogrel Bisulfate 75 mg 06/25/16 10:00 06/26/16 09:30 Plavix - PO 75 mg DAILY [facility] Administration Furosemide 80 mg 06/24/16 18:30 06/26/16 09:32 Lasix Injection - IVPUSH 80 mg DAILY [facility] Administration Furosemide 80 mg 06/26/16 16:00 Lasix Injection - IVPUSH 06/26/16 16:01 ONCE ONE Heparin Sodium (Porcine) 5,000 unit 06/24/16 22:00 06/26/16 05:56 Heparin - SQ 5,000 unit TID [facility] Administration Insulin Aspart 1 vial 06/24/16 16:30 06/26/16 06:08 Novolog Vial Sliding Scale - SQ Not Given [facility] Protocol Lisinopril 5 mg 06/25/16 10:00 06/26/16 09:30 Prinivil PO 5 mg DAILY [facility] Administration Metformin HCl 1,000 mg 06/24/16 16:30 06/26/16 05:58 Glucophage - PO 1,000 mg BIDAC [facility] Administration Nicotine 14 mg 06/25/16 10:00 06/26/16 09:31 Nicoderm Patch - TD Not Given DAILY [facility] Ondansetron HCl 4 mg 06/24/16 15:50 Zofran Injection IVPB Q6H PRN NAUSEA Oxycodone HCl 10 mg 06/24/16 16:15 06/26/16 05:56 Roxicodone - PO 10 mg Q6H PRN Administration PAIN LEVEL 6-10 Zolpidem Tartrate 10 mg 06/24/16 22:03 06/25/16 22:38 Ambien - PO 10 mg HS PRN Administration INSOMNIA CBC, BMP 06/26/16 05:35 06/26/16 05:35 echo 06/2015: mild lve, mod-sev dec lvef, mod lae, nl rv size, mild dec rv fcn, mild-mod mr, mild tr, nl avr fcn, rvsp 30-40 echo 06/2016: sev dec lvef, global hk, rv tds, trinity, mod-sev mr, mod tr, rvsp 50- 60 mibi 09/2014: large inf scar, mod anteroapical ischemia, lvef 25% mibi 06/2016 (pers): non-diagnostic STs; large area inferior/inferolateral/ lateral scar; no ischemia; severe LV cavity dilation; global HK with akinesis of inferior/inferolat/lateral allan; EF 16% tele: sr a/p: 61 m hx copd, cabgx3 2012, bio avr 2012, pad s/p b/l sfa occlusions, syst chf s/p medtr[employer] icd, htn, hld, a-tach, here with sob. aucte systolic chf: -here with ? mild acute decomp chf earlier this month--discharged after 2 days of iv diuresis; -came in on lasix 40 qd at that time, sent home on lasix 40 qd -? dry wt; was diuresed from 204 to 191 on d/c when here 02/19; was unchanged at 189 lbs x 2d in a row when recently here earlier this month, and may have been at hi filling pressures at that time -needs accurate standing wt -BNP 8K here (ranges 7K-12K on prior values) -CXR with diffuse interstitial markings changed vs 02/19, unchanged vs 06/20; probably vascular redistribution as well and L effusion--all stable vs 06/20 -suspect pt is being underdiuresed on lasix 40 qd and was not effectively diuresed when here couple weeks ago (likely hides hi filling pressures due to the chronicity of his chf) -so far diuresing well with decreasing wt and stable cr. Will cont lasix 80 iv qd and also give extra dose later today, monitor daily chemistry, wts -should not be discharged until wt is coming down/plateaued and ideally neck veins less distended -QRS 130s msec--? if device is JAILOR--if not, should consider upgrade--f/u in office as outpatient -no ischemia on nuclear perfusion imaging this month, no signs ACS here cad/hx of CABG 2012 -no recent angina/ischemia -present sx's not suggestive for angina, no acute ecg changes, enzymes neg x 3 -cont prior cad med regimen: deidra, dapt, statin, bb, ccb bio avr: -nl fcn on echo 06/20 mitral regurgitation: -likely functional MR, mild-mod on echo 06/19, then "mod-severe" when here 06/20 with suspected acute chf and pulm pressures up (though at risk for overestimation of MR severity on that echo report) - valve morphology not described (tethered leaflets?) -no murmur on exam -reassess MR severity on echo once pt adequately diuresed, though surgical or clip intervention not indicated/proven for functional MR CKD: -creat stable at baseline (1.4-1.5) -daily trend with diuresis pad: -stable, no claudication, cont current cardiac meds, pletal s/p icd: -no shocks -nl function on recent office check 05/2016 htn: -cont home meds hld: -cont statin atach: -minimal episodes seen in past on icd checks -cont bb -monitor tele anemia: -chronic, stable counts here vs baseline -per pmd
[2016-06-26] MEDS ORDERED: FUROSEMIDE 40 MG/4 ML INJECTABLE VIAL IVPUSH ONE (16:00)
[2016-06-26] MEDS: ZOLPIDEM TARTRATE 5 MG TABLET PO PRN (21:22)
[2016-06-26] MEDS: ATORVASTATIN CA 10 MG TABLET (FP) PO SCH (21:22)
[2016-06-27] MEDS: ACETAMINOPHEN 325 MG TABLET (FP) PO PRN ×3 (05:26→20:10)
[2016-06-27] MEDS: oxyCODONE HCL 5 MG TABLET PO PRN ×3 (05:31→20:09)
[2016-06-27] MEDS: HEPARIN NA (PORCINE) 5,000 UNITS/ML 1ML VIAL SQ SCH ×3 (05:36→21:11)
[2016-06-27] MEDS: INSULIN SLIDING SCALE (NOVOLOG) 1 VIAL SQ SCH ×4 (06:29→21:12)
[2016-06-27] MEDS: metFORMIN HCL 500 MG TABLET (FP) PO SCH ×2 (06:29→16:40)
[2016-06-27 06:39] LABS: BASOPHIL 1.5 % (0-2.0); EOSINOPHIL 4.2 % (0-4.5); MCHC 33.6 g/dl (32.0-35.9); MEAN CELL VOLUME 89.2 fl (80-96); MEAN PLT VOLUME 8.7 fl (7.5-11.1); NEUTROPHILS 68.8 % (42.8-82.8); PLATELET COUNT 202 K/MM3 (134-434); WHITE BLOOD COUNT 7.6 K/mm3 (4.0-10.0)
[2016-06-27 06:47] LABS: ALBUMIN 3.4 g/dl (3.4-5.0); CALCIUM 9.2 mg/dL (8.5-10.1); CREATININE 1.5 mg/dL (0.7-1.3); TOT PROT 7.2 g/dl (6.4-8.2)
[2016-06-27 06:50] LABS: BILIRUBIN,TOTAL 0.4 mg/dL (0.2-1.0)
[2016-06-27] MEDS: FUROSEMIDE 40 MG/4 ML INJECTABLE VIAL IVPUSH SCH (09:04)
[2016-06-27] MEDS: CLOPIDOGREL BISULFATE 75 MG TABLET (FP) PO SCH (09:06)
[2016-06-27] MEDS: NICOTINE 14 MG/24 HOURS TOPICAL PATCH TD SCH (09:06)
[2016-06-27] MEDS: CARVEDILOL 25 MG TABLET (FP) PO SCH ×2 (09:06→21:10)
[2016-06-27] MEDS: amLODIPine BESYLATE 5 MG TABLET (FP) PO SCH (09:06)
[2016-06-27] MEDS: ASPIRIN COATED 81 MG TABLET.EC PO SCH (09:06)
[2016-06-27] MEDS: CHOLECALCIFEROL (VITAMIN D3) 1,000 UNIT TABLET (FP) PO SCH (09:07)
[2016-06-27] MEDS: LISINOPRIL 5 MG TABLET (FP) PO SCH (09:07)
[2016-06-27] MEDS: BUDESONIDE/FORMETEROL FUMARATE 160/4.5 mcg INHALER IH SCH ×2 (09:07→21:12)
[2016-06-27] MEDS: CILOSTAZOL 50 MG TABLET (FP) PO SCH (09:09)
[2016-06-27] MEDS: buPROPion HCL 75 MG TABLET PO SCH ×2 (09:14→21:10)
--- NOTE | 2016-06-27 10:42 | PN ---
Progress Note (short form) - Note Progress Note: s: no cp sob palps dizzy o: Vital Signs Period Temp Pulse Resp BP Sys/El Pulse Ox Last 24 Hr 97.4 F-98.1 F 68-78 16-22 121-147/63-79 98-100 Constitutional: Yes: Well Nourished, No Distress Eyes: No: Sclera Icterus Respiratory: Yes: CTA Bilaterally, nl eff. No: Accessory Muscle Use Gastrointestinal: Yes: Normal Bowel Sounds. No: Distention, Hepatomegaly, Palpable Mass, Tenderness Cardiovascular: Yes: Regular Rate and Rhythm JVD: Yes, improving Heart Sounds: Yes: S1, S2. No: Gallop Murmur: No: Systolic Murmur, Diastolic Murmur Extremities: No: Cool, Cyanosis Edema: No Integumentary: No: Jaundice diaphoresis Neurological: Yes: Alert, Oriented (x3) Psychiatric: No: Agitated Current Medications Generic Name Dose Route Start Last Admin Trade Name Freq PRN Reason Stop Dose Admin Acetaminophen 650 mg 06/24/16 15:50 06/27/16 05:26 Tylenol - PO 650 mg Q4H PRN Administration FEVER OR PAIN Acetaminophen 325 mg 06/24/16 16:14 06/25/16 13:41 Tylenol - PO 325 mg Q6H PRN Administration PAIN Albuterol Sulfate 1 amp 06/24/16 15:47 06/26/16 22:15 Ventolin 0.083% Nebulizer Soln - NEB 1 amp Q6H PRN Administration SHORT OF BREATH/WHEEZING Amlodipine Besylate 5 mg 06/25/16 10:00 06/27/16 09:06 Norvasc - PO 5 mg DAILY MANJU Administration Aspirin 81 mg 06/25/16 10:00 06/27/16 09:06 Ecotrin - PO 81 mg DAILY MANJU Administration Atorvastatin Calcium 10 mg 06/24/16 22:00 06/26/16 21:22 Lipitor - PO 10 mg HS MANJU Administration Budesonide/Formoterol Fumarate 2 puff 06/24/16 22:00 06/27/16 09:07 Symbicort 160/4.5mcg - IH 2 puff BID MANJU Administration Bupropion HCl 75 mg 06/24/16 22:00 06/27/16 09:14 Wellbutrin - PO 75 mg BID MANJU Administration Carvedilol 25 mg 06/24/16 22:00 06/27/16 09:06 Coreg - PO 25 mg BID MANJU Administration Cholecalciferol 2,000 unit 06/25/16 10:00 06/27/16 09:07 Vitamin D3 - PO 2,000 unit DAILY [facility] Administration Cilostazol 50 mg 06/25/16 10:00 06/27/16 09:09 Pletal - PO 50 mg DAILY MANJU Administration Clopidogrel Bisulfate 75 mg 06/25/16 10:00 06/27/16 09:06 Plavix - PO 75 mg DAILY [facility] Administration Furosemide 80 mg 06/24/16 18:30 06/27/16 09:04 Lasix Injection - IVPUSH 80 mg DAILY [facility] Administration Heparin Sodium (Porcine) 5,000 unit 06/24/16 22:00 06/27/16 05:36 Heparin - SQ Not Given TID [facility] Insulin Aspart 1 vial 06/24/16 16:30 06/27/16 06:29 Novolog Vial Sliding Scale - SQ Not Given ACHS [facility] Protocol Lisinopril 5 mg 06/25/16 10:00 06/27/16 09:07 Prinivil PO 5 mg DAILY [facility] Administration Metformin HCl 1,000 mg 06/24/16 16:30 06/27/16 06:29 Glucophage - PO 1,000 mg BIDAC [facility] Administration Nicotine 14 mg 06/25/16 10:00 06/27/16 09:06 Nicoderm Patch - TD Not Given DAILY [facility] Ondansetron HCl 4 mg 06/24/16 15:50 Zofran Injection IVPB Q6H PRN NAUSEA Oxycodone HCl 10 mg 06/24/16 16:15 06/27/16 05:31 Roxicodone - PO 10 mg Q6H PRN Administration PAIN LEVEL 6-10 Zolpidem Tartrate 10 mg 06/24/16 22:03 06/26/16 21:22 Ambien - PO 10 mg HS PRN Administration INSOMNIA CBC, BMP 06/27/16 05:35 06/27/16 05:35 echo 06/2015: mild lve, mod-sev dec lvef, mod lae, nl rv size, mild dec rv fcn, mild-mod mr, mild tr, nl avr fcn, rvsp 30-40 echo 06/2016: sev dec lvef, global hk, rv tds, trinity, mod-sev mr, mod tr, rvsp 50- 60 mibi 09/2014: large inf scar, mod anteroapical ischemia, lvef 25% mibi 06/2016 (pers): non-diagnostic STs; large area inferior/inferolateral/ lateral scar; no ischemia; severe LV cavity dilation; global HK with akinesis of inferior/inferolat/lateral allan; EF 16% tele: sr. occ pvcs, occ vpacing a/p: 61 m hx copd, cabgx3 2012, bio avr 2012, pad s/p b/l sfa occlusions, syst chf s/p medtronic icd, htn, hld, a-tach, here with sob. aucte systolic chf: -here with ? mild acute decomp chf earlier this month--discharged after 2 days of iv diuresis; -came in on lasix 40 qd at that time, sent home on lasix 40 qd -? dry wt; was diuresed from 204 to 191 on d/c when here 02/19; was unchanged at 189 lbs x 2d in a row when recently here earlier this month, and may have been at hi filling pressures at that time -needs accurate standing wt -BNP 8K here (ranges 7K-12K on prior values) -CXR with diffuse interstitial markings changed vs 02/19, unchanged vs 06/20; probably vascular redistribution as well and L effusion--all stable vs 06/20 -suspect pt is being underdiuresed on lasix 40 qd and was not effectively diuresed when here couple weeks ago (likely hides hi filling pressures due to the chronicity of his chf) -so far diuresing well with decreasing wt and stable cr. Will cont lasix 80 iv qd, monitor daily chemistry, wts. -when wt has plateaued or cr starts to rise would change back to po diuretic. Was on lasix 40 qd at home, would increase to 40 bid. -QRS 130s msec--? if device is [employer] GR[employer]ER--if not, should consider upgrade--f/u in office as outpatient -no ischemia on nuclear perfusion imaging this month, no signs ACS here cad/hx of CABG 2012 -no recent angina/ischemia -present sx's not suggestive for angina, no acute ecg changes, enzymes neg x 3 -cont prior cad med regimen: deidra, dapt, statin, bb, ccb bio avr: -nl fcn on echo 06/20 mitral regurgitation: -likely functional MR, mild-mod on echo 06/19, then "mod-severe" when here 06/20 with suspected acute chf and pulm pressures up (though at risk for overestimation of MR severity on that echo report) - valve morphology not described (tethered leaflets?) -no murmur on exam -reassess MR severity on echo once pt adequately diuresed, though surgical or clip intervention not indicated/proven for functional MR CKD: -creat stable at baseline (1.4-1.5) -daily trend with diuresis pad: -stable, no claudication, cont current cardiac meds, pletal s/p icd: -no shocks -nl function on recent office check 05/2016 htn: -cont home meds hld: -cont statin atach: -minimal episodes seen in past on icd checks -cont bb -monitor tele anemia: -chronic, stable counts here vs baseline -per pmd
--- NOTE | 2016-06-27 18:12 | PN ---
Physical Exam: SUBJECTIVE: Patient seen and examined States he is able to use the supplemental oxygen less. Denies chest pain/shortness of breath OBJECTIVE: Vital Signs Period Temp Pulse Resp BP Sys/El Pulse Ox Last 24 Hr 97.5 F-98.1 F 68-81 16-22 129-147/63-81 98-100 GENERAL: The patient is awake, alert, and fully oriented, in no acute distress. HEAD: Normal with no signs of trauma. EYES: PERRL, extraocular movements intact, sclera anicteric, conjunctiva clear. No ptosis. ENT: Ears normal, nares patent, oropharynx clear without exudates, moist mucous membranes. NECK: Trachea midline, full range of motion, supple. LUNGS: bilateral lung sound diminished, no wheezing HEART: Regular rate and rhythm, S1, S2 without murmur, rub or gallop. ABDOMEN: Soft, nontender, nondistended, normoactive bowel sounds, no guarding, no rebound, no hepatosplenomegaly, no masses. EXTREMITIES: 2+ pulses, warm, well-perfused, no edema. NEUROLOGICAL: Normal speech, gait not observed. PSYCH: Normal mood, normal affect. SKIN: Warm, dry, normal turgor, no rashes or lesions noted Laboratory Results - last 24 hr 06/26/16 06/27/16 06/27/16 21:21 05:29 05:35 WBC 7.6 RBC 3.16 L Hgb 9.5 L D Hct 28.2 L MCV 89.2 MCHC 33.6 RDW 16.0 H Plt Count 202 D MPV 8.7 Neutrophils % 68.8 Lymphocytes % 18.4 Monocytes % 7.1 Eosinophils % 4.2 Basophils % 1.5 Sodium Potassium Chloride Carbon Dioxide Anion Gap BUN Creatinine Creat Clearance w eGFR POC Glucometer 146 114 Random Glucose Calcium Total Bilirubin AST ALT Alkaline Phosphatase Total Protein Albumin 06/27/16 06/27/16 06/27/16 05:35 11:49 15:35 WBC RBC Hgb Hct MCV MCHC RDW Plt Count MPV Neutrophils % Lymphocytes % Monocytes % Eosinophils % Basophils % Sodium 139 Potassium 4.4 Chloride 98 Carbon Dioxide 31 Anion Gap 10 BUN 42 H Creatinine 1.5 H Creat Clearance w eGFR 47.58 POC Glucometer 107 163 Random Glucose 97 Calcium 9.2 Total Bilirubin 0.4 D AST 7 L ALT 6 L Alkaline Phosphatase 96 Total Protein 7.2 Albumin 3.4 Active Medications Generic Name Dose Route Start Last Admin Trade Name Freq PRN Reason Stop Dose Admin Acetaminophen 650 mg 06/24/16 15:50 06/27/16 13:24 Tylenol - PO 650 mg Q4H PRN Administration FEVER OR PAIN Acetaminophen 325 mg 06/24/16 16:14 06/25/16 13:41 Tylenol - PO 325 mg Q6H PRN Administration PAIN Albuterol Sulfate 1 amp 06/24/16 15:47 06/26/16 22:15 Ventolin 0.083% Nebulizer Soln - NEB 1 amp Q6H PRN Administration SHORT OF BREATH/WHEEZING Amlodipine Besylate 5 mg 06/25/16 10:00 06/27/16 09:06 Norvasc - PO 5 mg DAILY MANJU Administration Aspirin 81 mg 06/25/16 10:00 06/27/16 09:06 Ecotrin - PO 81 mg DAILY MANJU Administration Atorvastatin Calcium 10 mg 06/24/16 22:00 06/26/16 21:22 Lipitor - PO 10 mg HS MANJU Administration Budesonide/Formoterol Fumarate 2 puff 06/24/16 22:00 06/27/16 09:07 Symbicort 160/4.5mcg - IH 2 puff BID MANJU Administration Bupropion HCl 75 mg 06/24/16 22:00 06/27/16 09:14 Wellbutrin - PO 75 mg BID MANJU Administration Carvedilol 25 mg 06/24/16 22:00 06/27/16 09:06 Coreg - PO 25 mg BID MANJU Administration Cholecalciferol 2,000 unit 06/25/16 10:00 06/27/16 09:07 Vitamin D3 - PO 2,000 unit DAILY [facility]JU Administration Cilostazol 50 mg 06/25/16 10:00 06/27/16 09:09 Pletal - PO 50 mg DAILY MANJU Administration Clopidogrel Bisulfate 75 mg 06/25/16 10:00 06/27/16 09:06 Plavix - PO 75 mg DAILY MANJU Administration Furosemide 80 mg 06/24/16 18:30 06/27/16 09:04 Lasix Injection - IVPUSH 80 mg DAILY [facility]JU Administration Heparin Sodium (Porcine) 5,000 unit 06/24/16 22:00 06/27/16 13:24 Heparin - SQ 5,000 unit TID MANJU Administration Insulin Aspart 1 vial 06/24/16 16:30 06/27/16 16:40 Novolog Vial Sliding Scale - SQ Not Given ACHS [facility] Protocol Lisinopril 5 mg 06/25/16 10:00 06/27/16 09:07 Prinivil PO 5 mg DAILY MANJU Administration Metformin HCl 1,000 mg 06/24/16 16:30 06/27/16 16:40 Glucophage - PO 1,000 mg BIDAC MANJU Administration Nicotine 14 mg 06/25/16 10:00 06/27/16 09:06 Nicoderm Patch - TD Not Given DAILY [facility]U Ondansetron HCl 4 mg 06/24/16 15:50 Zofran Injection IVPB Q6H PRN NAUSEA Zolpidem Tartrate 10 mg 06/24/16 22:03 06/26/16 21:22 Ambien - PO 10 mg HS PRN Administration INSOMNIA ASSESSMENT/PLAN: Patient is a 61 year old male with a significant past medical history of CABG, CAD, CHF, HTN, COPD, home oxygen dependent and DM. He presents to the ER on with SOB, dyspnea with exertion and chest pain when coughing x 2 days. At home he states that he was using his oxygen more frequently as he normally uses it as needed. He denies fever, chills, abdominal pain, N/V, diarrhea, constipation. Cardiology: Congestive Heart Failure - acute on chronic Assessment/Plan: On Lasix 80mg iv push daily - able to tolerate room air, some dyspnea with ambulation Troponins negative x 3 monitor intake and output daily weights obtain pre and post, on home oxygen therapy prn Coronary Artery Disease/Hypertension - stable Assessment/Plan: No chest pain on exam, on Plavix, coreq 25mg PO BID On ASA 81mg daily BP controlled Pulmonary: Hypoxia - acute on chronic respiratory failure - improving Assessment/Plan: Likely secondary to CHF exacerbation On 2 - 3 liters of continuous oxygen - improving On Lasix 80mg IV daily per cardiology recommendations Home oxygen dependent : Chronic Kidney Disease Assessment/Plan: Monitor BMP daily Endocrine: Diabetes Mellitus Assessment/Plan: On Metformin BID Monitor on sliding scale diabetic diet F.E.N. Fluids: no ivf/on Lasix Electrolytes: BMP in a.m. Nutrition: diabetic diet Prophylaxis: GI: coalce, zofran DVT:heparin BID, ambulation Disposition; Requires inpatient hospitalization. Full Code. Visit type - Emergency Visit Emergency Visit: Yes ED Registration Date: 06/24/16 Care time: The patient presented to the Emergency Department on the above date and was hospitalized for further evaluation of their emergent condition. - New Patient This patient is new to me today: No - Critical Care Critical Care patient: No - Discharge Referral Referred to [facility] No
[2016-06-27] MEDS: ALBUTEROL SO4 0.083% IH SOL 2.5 MG/3 ML VIAL.NEB. NEB PRN (19:41)
[2016-06-27] MEDS: ZOLPIDEM TARTRATE 5 MG TABLET PO PRN (21:10)
[2016-06-27] MEDS: ATORVASTATIN CA 10 MG TABLET (FP) PO SCH (21:10)
[2016-06-28] MEDS: oxyCODONE HCL 5 MG TABLET PO PRN ×3 (04:47→21:49)
[2016-06-28] MEDS: ACETAMINOPHEN 325 MG TABLET (FP) PO PRN ×3 (04:48→21:48)
[2016-06-28] MEDS: HEPARIN NA (PORCINE) 5,000 UNITS/ML 1ML VIAL SQ SCH ×3 (05:24→21:49)
[2016-06-28] MEDS: metFORMIN HCL 500 MG TABLET (FP) PO SCH ×2 (06:12→17:40)
[2016-06-28] MEDS: INSULIN SLIDING SCALE (NOVOLOG) 1 VIAL SQ SCH ×4 (06:13→21:49)
[2016-06-28] MEDS: ALBUTEROL SO4 0.083% IH SOL 2.5 MG/3 ML VIAL.NEB. NEB PRN (06:30)
[2016-06-28 07:58] LABS: BASOPHIL 1.3 % (0-2.0); EOSINOPHIL 4.6 % (0-4.5); MCH 29.5 pg (25.7-33.7); MCHC 32.9 g/dl (32.0-35.9); MEAN CELL VOLUME 89.5 fl (80-96); MEAN PLT VOLUME 8.4 fl (7.5-11.1); NEUTROPHILS 72.1 % (42.8-82.8); PLATELET COUNT 170 K/MM3 (134-434); RDW 16.4 % (11.9-15.9); WHITE BLOOD COUNT 7.6 K/mm3 (4.0-10.0)
[2016-06-28 08:28] LABS: ALBUMIN 3.2 g/dl (3.4-5.0); ANION GAP 11 (8-16); CALCIUM 8.5 mg/dL (8.5-10.1); CO2 30 mmol/L (21-32); CREATININE 1.4 mg/dL (0.7-1.3); GLUCOSE,RANDOM 99 mg/dL (74-106); MAGNESIUM 1.8 mg/dL (1.8-2.4); PHOSPHOROUS 3.4 mg/dL (2.5-4.9); SGOT/AST 7 U/L (15-37); SGPT/ALT < 6 U/L (12-78)
[2016-06-28 08:30] LABS: ALK PHOS 88 U/L (45-117); BILIRUBIN,TOTAL 0.5 mg/dL (0.2-1.0); TOT PROT 6.6 g/dl (6.4-8.2)
--- NOTE | 2016-06-28 09:22 | PN ---
Progress Note, Physician Chief Complaint: chf History of Present Illness: sob much better--completely resolved; ankle swelling resolved; no presyncope no cp +cigs - Current Medication List Current Medications: Active Medications Acetaminophen (Tylenol -) 650 mg PO Q4H PRN PRN Reason: FEVER OR PAIN Last Admin: 06/28/16 04:48 Dose: 650 mg Acetaminophen (Tylenol -) 325 mg PO Q6H PRN PRN Reason: PAIN Last Admin: 06/27/16 20:10 Dose: 325 mg Albuterol Sulfate (Ventolin 0.083% Nebulizer Soln -) 1 amp NEB Q6H PRN PRN Reason: SHORT OF BREATH/WHEEZING Last Admin: 06/28/16 06:30 Dose: 1 amp Amlodipine Besylate (Norvasc -) 5 mg PO DAILY [facility] Last Admin: 06/27/16 09:06 Dose: 5 mg Aspirin (Ecotrin -) 81 mg PO DAILY [facility] Last Admin: 06/27/16 09:06 Dose: 81 mg Atorvastatin Calcium (Lipitor -) 10 mg PO HS [facility] Last Admin: 06/27/16 21:10 Dose: 10 mg Budesonide/Formoterol Fumarate (Symbicort 160/4.5mcg -) 2 puff IH BID [facility] Last Admin: 06/27/16 21:12 Dose: 2 puff Bupropion HCl (Wellbutrin -) 75 mg PO BID [facility] Last Admin: 06/27/16 21:10 Dose: 75 mg Carvedilol (Coreg -) 25 mg PO BID [facility] Last Admin: 06/27/16 21:10 Dose: 25 mg Cholecalciferol (Vitamin D3 -) 2,000 unit PO DAILY [facility] Last Admin: 06/27/16 09:07 Dose: 2,000 unit Cilostazol (Pletal -) 50 mg PO DAILY [facility] Last Admin: 06/27/16 09:09 Dose: 50 mg Clopidogrel Bisulfate (Plavix -) 75 mg PO DAILY [facility] Last Admin: 06/27/16 09:06 Dose: 75 mg Furosemide (Lasix Injection -) 80 mg IVPUSH DAILY [facility] Last Admin: 06/27/16 09:04 Dose: 80 mg Heparin Sodium (Porcine) (Heparin -) 5,000 unit SQ TID [facility] Last Admin: 06/28/16 05:24 Dose: Not Given Insulin Aspart (Novolog Vial Sliding Scale -) 1 vial SQ ACHS MANJU PRN Reason: Protocol Last Admin: 06/28/16 06:13 Dose: Not Given Lisinopril (Prinivil) 5 mg PO DAILY [facility] Last Admin: 06/27/16 09:07 Dose: 5 mg Metformin HCl (Glucophage -) 1,000 mg PO BIDAC [facility] Last Admin: 06/28/16 06:12 Dose: 1,000 mg Nicotine (Nicoderm Patch -) 14 mg TD DAILY [facility] Last Admin: 06/27/16 09:06 Dose: Not Given Ondansetron HCl (Zofran Injection) 4 mg IVPB Q6H PRN PRN Reason: NAUSEA Oxycodone HCl (Roxicodone -) 10 mg PO Q6H PRN PRN Reason: PAIN LEVEL 6-10 Last Admin: 06/28/16 04:47 Dose: 10 mg Zolpidem Tartrate (Ambien -) 10 mg PO HS PRN PRN Reason: INSOMNIA Last Admin: 06/27/16 21:10 Dose: 10 mg - Objective Vital Signs: Vital Signs Temperature 98.1 F 06/28/16 06:23 Pulse Rate 96 H 06/28/16 06:23 Respiratory Rate 18 06/28/16 06:23 Blood Pressure 133/65 06/28/16 06:23 O2 Sat by Pulse Oximetry (%) 97 06/27/16 21:00 Constitutional: Yes: No Distress, Calm Eyes: No: Sclera Icterus HENT: No: Nasal Congestion Cardiovascular: Yes: Regular Rate and Rhythm, S1, S2, Other (PMI non diplaced). No: JVD, Gallop, Murmur Respiratory: Yes: CTA Bilaterally. No: Accessory Muscle Use, Rales, Wheezes Gastrointestinal: Yes: Normal Bowel Sounds, Soft. No: Tenderness Musculoskeletal: Yes: Other (No kyphosis) Extremities: No: Cold Edema: No Integumentary: No: Jaundice Neurological: Yes: Alert, Oriented (x3) Psychiatric: No: Agitated Labs: CBC, BMP 06/28/16 05:35 06/28/16 05:35 - ....Imaging EKG: Other (tele: NSR-->competing atrial focus at HR 90s) Assessment/Plan echo 06/2015: mild lve, mod-sev dec lvef, mod lae, nl rv size, mild dec rv fcn, mild-mod mr, mild tr, nl avr fcn, rvsp 30-40 echo 06/2016: sev dec lvef, global hk, rv tds, trinity, mod-sev mr, mod tr, rvsp 50- 60 mibi 09/2014: large inf scar, mod anteroapical ischemia, lvef 25% mibi 06/2016 (pers): non-diagnostic STs; large area inferior/inferolateral/ lateral scar; no ischemia; severe LV cavity dilation; global HK with akinesis of inferior/inferolat/lateral allan; EF 16% a/p: 61 m hx copd, cabgx3 2012, bio avr 2012, pad s/p b/l sfa occlusions, syst chf s/p medtronic icd, htn, hld, a-tach, here with sob. acute systolic chf: -here with ? mild acute decomp chf earlier this month--discharged after 2 days of iv diuresis--was likely incompletely diuresed at that time -came in on lasix 40 qd at that time, sent home on same regimen -? dry wt; was diuresed from 204 to 191 on d/c when here 02/19; was unchanged at 189 lbs x 2d in a row when recently here earlier this month, and may have been at hi filling pressures at that time -BNP 8K here (ranges 7K-12K on prior values) -CXR with diffuse interstitial markings changed vs 02/19, unchanged vs 06/20; probably vascular redistribution as well and L effusion--all stable vs 06/20 -getting lasix 80 iv qd here -06/28: wt trend: 190-->183 -bun rising slightly here, creat stable -severe JVD on admit--now resolved -cont lasix 80 iv today, reassess wt and labs in am--anticipate d/c home on lasix 80 po qd tomorrow 06/29 -QRS 130s msec--? if device is CABIN SUPERVISOR--if not, should consider upgrade--f/u in office as outpatient -no ischemia on nuclear perfusion imaging this month, no signs ACS here cad/hx of CABG 2012 -no recent angina/ischemia -present sx's not suggestive for angina, no acute ecg changes, enzymes neg x 3 -cont prior cad med regimen: deidra, dapt, statin, bb, ccb bio avr: -nl fcn on echo 06/20 mitral regurgitation: -likely functional MR, mild-mod on echo 06/19, then "mod-severe" when here 06/20 with suspected acute chf and pulm pressures up (though at risk for overestimation of MR severity on that echo report) - valve morphology not described (tethered leaflets?) -no murmur on exam -reassess MR severity on echo once pt adequately diuresed, though surgical or clip intervention not indicated/proven for functional MR CKD: -creat stable at baseline (1.4-1.5) -daily trend with diuresis, as above pad: -stable, no claudication, cont current cardiac meds, pletal s/p icd: -no shocks -nl function on recent office check 05/2016 htn: -cont home meds hld: -cont statin atach: -minimal episodes seen in past on icd checks -cont bb -monitor tele anemia: -chronic, stable counts here vs baseline -per pmd
[2016-06-28] MEDS: CARVEDILOL 25 MG TABLET (FP) PO SCH ×2 (09:51→21:49)
[2016-06-28] MEDS: ASPIRIN COATED 81 MG TABLET.EC PO SCH (09:51)
[2016-06-28] MEDS: amLODIPine BESYLATE 5 MG TABLET (FP) PO SCH (09:52)
[2016-06-28] MEDS: buPROPion HCL 75 MG TABLET PO SCH ×2 (09:52→21:49)
[2016-06-28] MEDS: LISINOPRIL 5 MG TABLET (FP) PO SCH (09:52)
[2016-06-28] MEDS: CLOPIDOGREL BISULFATE 75 MG TABLET (FP) PO SCH (09:52)
[2016-06-28] MEDS: BUDESONIDE/FORMETEROL FUMARATE 160/4.5 mcg INHALER IH SCH ×2 (09:52→21:49)
[2016-06-28] MEDS: CHOLECALCIFEROL (VITAMIN D3) 1,000 UNIT TABLET (FP) PO SCH (09:52)
[2016-06-28] MEDS: FUROSEMIDE 40 MG/4 ML INJECTABLE VIAL IVPUSH SCH (09:53)
[2016-06-28] MEDS ORDERED: PT OWN MED DRAWER 7, Y5N ONE ×2 (09:55→17:31)
[2016-06-28] MEDS: NICOTINE 14 MG/24 HOURS TOPICAL PATCH TD SCH ×2 (09:56→11:59)
[2016-06-28] MEDS: CILOSTAZOL 50 MG TABLET (FP) PO SCH (09:56)
--- NOTE | 2016-06-28 13:20 | PN ---
Progress Note (short form) - Note Progress Note: Physical Exam: SUBJECTIVE: Patient seen and examined Breathing better. Denies chest pain, shortness of breath, palpitation or dizziness. OBJECTIVE: Vital Signs Period Temp Pulse Resp BP Sys/El Pulse Ox Last 24 Hr 97 F-98.1 F 68-98 16-22 129-142/65-81 97 GENERAL: The patient is awake, alert, and fully oriented, in no acute distress. HEAD: Normal with no signs of trauma. EYES: PERRL, extraocular movements intact, sclera anicteric, conjunctiva clear. No ptosis. ENT: Ears normal, nares patent, oropharynx clear without exudates, moist mucous membranes. NECK: Trachea midline, full range of motion, supple. LUNGS: bilateral lung sound diminished, no wheezing HEART: Regular rate and rhythm, S1, S2 without murmur, rub or gallop. ABDOMEN: Soft, nontender, nondistended, normoactive bowel sounds, no guarding, no rebound, no hepatosplenomegaly, no masses. EXTREMITIES: 2+ pulses, warm, well-perfused, no edema. NEUROLOGICAL: Normal speech, gait not observed. PSYCH: Normal mood, normal affect. SKIN: Warm, dry, normal turgor, no rashes or lesions noted CBC,CMP WBC 7.6 K/mm3 (4.0-10.0) 06/28/16 05:35 RBC 3.06 M/mm3 (4.00-5.60) L 06/28/16 05:35 Hgb 9.0 GM/dL (11.7-16.9) L 06/28/16 05:35 Hct 27.4 % (35.4-49) L 06/28/16 05:35 MCV 89.5 fl (80-96) 06/28/16 05:35 MCHC 32.9 g/dl (32.0-35.9) 06/28/16 05:35 RDW 16.4 % (11.9-15.9) H 06/28/16 05:35 Plt Count 170 K/MM3 (134-434) 06/28/16 05:35 MPV 8.4 fl (7.5-11.1) 06/28/16 05:35 Neutrophils % 72.1 % (42.8-82.8) 06/28/16 05:35 Lymphocytes % 15.2 % (8-40) 06/28/16 05:35 Monocytes % 6.8 % (3.8-10.2) 06/28/16 05:35 Eosinophils % 4.6 % (0-4.5) H 06/28/16 05:35 Basophils % 1.3 % (0-2.0) 06/28/16 05:35 Sodium 139 mmol/L (136-145) 06/28/16 05:35 Potassium 4.2 mmol/L (3.5-5.1) 06/28/16 05:35 Chloride 98 mmol/L (98-107) 06/28/16 05:35 Carbon Dioxide 30 mmol/L (21-32) 06/28/16 05:35 Anion Gap 11 (8-16) 06/28/16 05:35 BUN 45 mg/dL (7-18) H 06/28/16 05:35 Creatinine 1.4 mg/dL (0.7-1.3) H 06/28/16 05:35 Creat Clearance w eGFR 51.52 (>60) 06/28/16 05:35 POC Glucometer 146 UNITS (()) 06/28/16 11:43 Random Glucose 99 mg/dL (74-106) 06/28/16 05:35 Calcium 8.5 mg/dL (8.5-10.1) 06/28/16 05:35 Phosphorus 3.4 mg/dL (2.5-4.9) 06/28/16 05:35 Magnesium 1.8 mg/dL (1.8-2.4) 06/28/16 05:35 Total Bilirubin 0.5 mg/dL (0.2-1.0) D 06/28/16 05:35 AST 7 U/L (15-37) L 06/28/16 05:35 ALT < 6 U/L (12-78) L 06/28/16 05:35 Alkaline Phosphatase 88 U/L (45-117) 06/28/16 05:35 Creatine Kinase 34 IU/L (39-308) L 06/25/16 05:35 Troponin I 0.02 ng/ml (0.00-0.05) 06/25/16 05:35 B-Natriuretic Peptide 8847.04 pg/ml (5-125) H 06/24/16 11:45 Total Protein 6.6 g/dl (6.4-8.2) 06/28/16 05:35 Albumin 3.2 g/dl (3.4-5.0) L 06/28/16 05:35 Active Medications Generic Name Dose Route Start Last Admin Trade Name Freq PRN Reason Stop Dose Admin Acetaminophen 650 mg 06/24/16 15:50 06/27/16 13:24 Tylenol - PO 650 mg Q4H PRN Administration FEVER OR PAIN Acetaminophen 325 mg 06/24/16 16:14 06/25/16 13:41 Tylenol - PO 325 mg Q6H PRN Administration PAIN Albuterol Sulfate 1 amp 06/24/16 15:47 06/26/16 22:15 Ventolin 0.083% Nebulizer Soln - NEB 1 amp Q6H PRN Administration SHORT OF BREATH/WHEEZING Amlodipine Besylate 5 mg 06/25/16 10:00 06/27/16 09:06 Norvasc - PO 5 mg DAILY [facility] Administration Aspirin 81 mg 06/25/16 10:00 06/27/16 09:06 Ecotrin - PO 81 mg DAILY [facility] Administration Atorvastatin Calcium 10 mg 06/24/16 22:00 06/26/16 21:22 Lipitor - PO 10 mg HS [facility] Administration Budesonide/Formoterol Fumarate 2 puff 06/24/16 22:00 06/27/16 09:07 Symbicort 160/4.5mcg - IH 2 puff BID [facility] Administration Bupropion HCl 75 mg 06/24/16 22:00 06/27/16 09:14 Wellbutrin - PO 75 mg BID [facility] Administration Carvedilol 25 mg 06/24/16 22:00 06/27/16 09:06 Coreg - PO 25 mg BID [facility] Administration Cholecalciferol 2,000 unit 06/25/16 10:00 06/27/16 09:07 Vitamin D3 - PO 2,000 unit DAILY [facility] Administration Cilostazol 50 mg 06/25/16 10:00 06/27/16 09:09 Pletal - PO 50 mg DAILY [facility] Administration Clopidogrel Bisulfate 75 mg 06/25/16 10:00 06/27/16 09:06 Plavix - PO 75 mg DAILY [facility] Administration Furosemide 80 mg 06/24/16 18:30 03/24/17 09:04 Lasix Injection - IVPUSH 80 mg DAILY [facility] Administration Heparin Sodium (Porcine) 5,000 unit 06/24/16 22:00 06/27/16 13:24 Heparin - SQ 5,000 unit TID [facility] Administration Insulin Aspart 1 vial 06/24/16 16:30 06/27/16 16:40 Novolog Vial Sliding Scale - SQ Not Given ACHS [facility] Protocol Lisinopril 5 mg 06/25/16 10:00 06/27/16 09:07 Prinivil PO 5 mg DAILY [facility] Administration Metformin HCl 1,000 mg 06/24/16 16:30 06/27/16 16:40 Glucophage - PO 1,000 mg BIDAC [facility] Administration Nicotine 14 mg 06/25/16 10:00 06/27/16 09:06 Nicoderm Patch - TD Not Given DAILY [facility] Ondansetron HCl 4 mg 06/24/16 15:50 Zofran Injection IVPB Q6H PRN NAUSEA Zolpidem Tartrate 10 mg 06/24/16 22:03 06/26/16 21:22 Ambien - PO 10 mg HS PRN Administration INSOMNIA ASSESSMENT/PLAN: Patient is a 61 year old male with a significant past medical history of CABG, CAD, CHF, HTN, COPD, home oxygen dependent and DM. He presents to the ER on with SOB, dyspnea with exertion and chest pain when coughing x 2 days. At home he states that he was using his oxygen more frequently as he normally uses it as needed. He denies fever, chills, abdominal pain, N/V, diarrhea, constipation. Cardiology: Congestive Heart Failure - acute on chronic Assessment/Plan: On Lasix 80mg iv push daily - able to tolerate room air, some dyspnea with ambulation Troponins negative x 3 monitor intake and output daily weights obtain pre and post, on home oxygen therapy prn Coronary Artery Disease/Hypertension - stable Assessment/Plan: No chest pain on exam, on Plavix, coreq 25mg PO BID On ASA 81mg daily BP controlled Pulmonary: Hypoxia - acute on chronic respiratory failure - improving Assessment/Plan: Likely secondary to CHF exacerbation On 2 - 3 liters of continuous oxygen - improving On Lasix 80mg IV daily per cardiology recommendations Home oxygen dependent : Chronic Kidney Disease Assessment/Plan: Monitor BMP daily Endocrine: Diabetes Mellitus Assessment/Plan: On Metformin BID Monitor on sliding scale diabetic diet F.E.N. Fluids: no ivf/on Lasix Electrolytes: BMP in a.m. Nutrition: diabetic diet Prophylaxis: GI: oliva mae DVT:heparin BID, ambulation Disposition; Requires inpatient hospitalization. Full Code.
[2016-06-28] MEDS: ZOLPIDEM TARTRATE 5 MG TABLET PO PRN (21:48)
[2016-06-28] MEDS: ATORVASTATIN CA 10 MG TABLET (FP) PO SCH (21:49)
[2016-06-29] MEDS: ACETAMINOPHEN 325 MG TABLET (FP) PO PRN ×3 (05:04→20:22)
[2016-06-29] MEDS: oxyCODONE HCL 5 MG TABLET PO PRN ×3 (05:04→20:19)
[2016-06-29] MEDS: HEPARIN NA (PORCINE) 5,000 UNITS/ML 1ML VIAL SQ SCH ×3 (05:53→21:37)
[2016-06-29] MEDS: metFORMIN HCL 500 MG TABLET (FP) PO SCH ×2 (06:13→17:45)
[2016-06-29] MEDS: INSULIN SLIDING SCALE (NOVOLOG) 1 VIAL SQ SCH ×4 (06:13→21:41)
[2016-06-29 07:27] LABS: BASOPHIL 1.1 % (0-2.0); EOSINOPHIL 5.5 % (0-4.5); MCH 30.1 pg (25.7-33.7); MCHC 33.9 g/dl (32.0-35.9); MEAN CELL VOLUME 88.7 fl (80-96); MEAN PLT VOLUME 8.1 fl (7.5-11.1); NEUTROPHILS 67.4 % (42.8-82.8); PLATELET COUNT 168 K/MM3 (134-434); RDW 16.5 % (11.9-15.9); WHITE BLOOD COUNT 7.3 K/mm3 (4.0-10.0)
[2016-06-29 08:10] LABS: ALBUMIN 2.9 g/dl (3.4-5.0); ALK PHOS 93 U/L (45-117); ANION GAP 11 (8-16); BILIRUBIN,TOTAL 0.4 mg/dL (0.2-1.0); CALCIUM 8.6 mg/dL (8.5-10.1); CO2 29 mmol/L (21-32); CREATININE 1.3 mg/dL (0.7-1.3); GLUCOSE,RANDOM 89 mg/dL (74-106); SGOT/AST 9 U/L (15-37); SGPT/ALT < 6 U/L (12-78)
--- NOTE | 2016-06-29 08:57 | PN ---
Progress Note, Physician Chief Complaint: chf History of Present Illness: no sob, orthopnea, cp, leg swelling - Current Medication List Current Medications: Active Medications Acetaminophen (Tylenol -) 650 mg PO Q4H PRN PRN Reason: FEVER OR PAIN Last Admin: 06/29/16 05:04 Dose: 650 mg Acetaminophen (Tylenol -) 325 mg PO Q6H PRN PRN Reason: PAIN Last Admin: 06/27/16 20:10 Dose: 325 mg Albuterol Sulfate (Ventolin 0.083% Nebulizer Soln -) 1 amp NEB Q6H PRN PRN Reason: SHORT OF BREATH/WHEEZING Last Admin: 06/28/16 06:30 Dose: 1 amp Amlodipine Besylate (Norvasc -) 5 mg PO DAILY [facility] Last Admin: 06/28/16 09:52 Dose: 5 mg Aspirin (Ecotrin -) 81 mg PO DAILY [facility] Last Admin: 06/28/16 09:51 Dose: 81 mg Atorvastatin Calcium (Lipitor -) 10 mg PO HS [facility] Last Admin: 06/28/16 21:49 Dose: 10 mg Budesonide/Formoterol Fumarate (Symbicort 160/4.5mcg -) 2 puff IH BID [facility] Last Admin: 06/28/16 21:49 Dose: 2 puff Bupropion HCl (Wellbutrin -) 75 mg PO BID [facility] Last Admin: 06/28/16 21:49 Dose: 75 mg Carvedilol (Coreg -) 25 mg PO BID [facility] Last Admin: 06/28/16 21:49 Dose: 25 mg Cholecalciferol (Vitamin D3 -) 2,000 unit PO DAILY [facility] Last Admin: 06/28/16 09:52 Dose: 2,000 unit Cilostazol (Pletal -) 50 mg PO DAILY [facility] Last Admin: 06/28/16 09:56 Dose: 50 mg Clopidogrel Bisulfate (Plavix -) 75 mg PO DAILY [facility] Last Admin: 06/28/16 09:52 Dose: 75 mg Furosemide (Lasix Injection -) 80 mg IVPUSH DAILY [facility] Last Admin: 06/28/16 09:53 Dose: 80 mg Heparin Sodium (Porcine) (Heparin -) 5,000 unit SQ TID [facility] Last Admin: 06/29/16 05:53 Dose: Not Given Insulin Aspart (Novolog Vial Sliding Scale -) 1 vial SQ ACHS [facility] PRN Reason: Protocol Last Admin: 06/29/16 06:13 Dose: Not Given Lisinopril (Prinivil) 5 mg PO DAILY [facility] Last Admin: 06/28/16 09:52 Dose: 5 mg Metformin HCl (Glucophage -) 1,000 mg PO BIDAC [facility] Last Admin: 06/29/16 06:13 Dose: 1,000 mg Nicotine (Nicoderm Patch -) 14 mg TD DAILY [facility] Last Admin: 06/28/16 11:59 Dose: 14 mg Ondansetron HCl (Zofran Injection) 4 mg IVPB Q6H PRN PRN Reason: NAUSEA Oxycodone HCl (Roxicodone -) 10 mg PO Q6H PRN PRN Reason: PAIN LEVEL 6-10 Last Admin: 06/29/16 05:04 Dose: 10 mg Zolpidem Tartrate (Ambien -) 10 mg PO HS PRN PRN Reason: INSOMNIA Last Admin: 06/28/16 21:48 Dose: 10 mg - Objective Vital Signs: Vital Signs Temperature 98 F 06/29/16 06:00 Pulse Rate 98 H 06/29/16 06:00 Respiratory Rate 18 06/29/16 06:00 Blood Pressure 121/75 06/29/16 06:00 O2 Sat by Pulse Oximetry (%) 98 06/28/16 21:00 Constitutional: Yes: Well Nourished, No Distress, Calm Cardiovascular: Yes: Regular Rate and Rhythm, S1, S2. No: JVD, Gallop, Murmur Respiratory: Yes: Regular, CTA Bilaterally, Diminished (L base). No: Accessory Muscle Use, Rales, Wheezes Extremities: No: Cold Edema: No Neurological: Yes: Alert, Oriented Psychiatric: No: Agitated Labs: CBC, BMP 06/29/16 05:35 06/29/16 05:35 - ....Imaging EKG: Other (tele: NSR alternating with rhythm at rate of 90s-100, no definite p waves, ? nearly-simultaneous p wave with QRS (inverted in lead II) --possible AIVR vs slow SVT) Assessment/Plan echo 06/2015: mild lve, mod-sev dec lvef, mod lae, nl rv size, mild dec rv fcn, mild-mod mr, mild tr, nl avr fcn, rvsp 30-40 echo 06/2016: sev dec lvef, global hk, rv tds, trinity, mod-sev mr, mod tr, rvsp 50- 60 mibi 09/2014: large inf scar, mod anteroapical ischemia, lvef 25% mibi 06/2016 (pers): non-diagnostic STs; large area inferior/inferolateral/ lateral scar; no ischemia; severe LV cavity dilation; global HK with akinesis of inferior/inferolat/lateral allan; EF 16% a/p: 61 m hx copd, cabgx3 2012, bio avr 2012, pad s/p b/l sfa occlusions, syst chf s/p medtr[employer] icd, htn, hld, a-tach, here with sob. acute systolic chf: -here with ? mild acute decomp chf earlier this month--discharged after 2 days of iv diuresis--was likely incompletely diuresed at that time -came in on lasix 40 qd at that time, sent home on same regimen -? dry wt; was diuresed from 204 to 191 on d/c when here 02/19; was unchanged at 189 lbs x 2d in a row when recently here earlier this month, and may have been at hi filling pressures at that time -BNP 8K here (ranges 7K-12K on prior values) -CXR with diffuse interstitial markings changed vs 02/19, unchanged vs 06/20; probably vascular redistribution as well and L effusion--all stable vs 06/20 -getting lasix 80 iv qd here -06/28: wt trend: 190-->183 -bun rising slightly here, creat stable -severe JVD on admit--now resolved -cont lasix 80 iv today, reassess wt and labs in am--anticipate d/c home on lasix 80 po qd tomorrow 06/29 -06/29: wt unchanged today (183); bun/creat stable; rpt cxr yesterday mild decr in intersititial markings, persistent L base opacity ? effusion -change to lasix 80 po qd -would get CT chest without contrast prior to discharge to better evaluate L base -QRS 130s msec--consider upgrade to CLEARANCE DIVER--f/u in office with kitty -no ischemia on nuclear perfusion imaging this month, no signs ACS here intermittent cardiac rhythm of ? morphology (HR 90-100): -reviewed strips with EP today -? AIVR, ? PMT -not clinically significant, requires no additional acute tx -pt will have device check with dr tang +/- EP review as outpt cad/hx of CABG 2012 -no recent angina/ischemia -present sx's not suggestive for angina, no acute ecg changes, enzymes neg x 3 -cont prior cad med regimen: deidra, dapt, statin, bb, ccb bio avr: -nl fcn on echo 06/20 mitral regurgitation: -likely functional MR, mild-mod on echo 06/19, then "mod-severe" when here 06/20 with suspected acute chf and pulm pressures up (though at risk for overestimation of MR severity on that echo report) - valve morphology not described (tethered leaflets?) -no murmur on exam -reassess MR severity on echo once pt adequately diuresed, though surgical or clip intervention not indicated/proven for functional MR CKD: -creat stable at baseline (1.4-1.5) -daily trend with diuresis, as above pad: -stable, no claudication, cont current cardiac meds, pletal s/p icd: -no shocks -nl function on recent office check 05/2016 htn: -cont home meds hld: -cont statin atach: -minimal episodes seen in past on icd checks -cont bb -monitor tele anemia: -chronic, stable counts here vs baseline -per pmd
[2016-06-29] MEDS: CARVEDILOL 25 MG TABLET (FP) PO SCH ×2 (09:01→21:37)
[2016-06-29] MEDS: CHOLECALCIFEROL (VITAMIN D3) 1,000 UNIT TABLET (FP) PO SCH (09:01)
[2016-06-29] MEDS: amLODIPine BESYLATE 5 MG TABLET (FP) PO SCH (09:01)
[2016-06-29] MEDS: CLOPIDOGREL BISULFATE 75 MG TABLET (FP) PO SCH (09:01)
[2016-06-29] MEDS: ASPIRIN COATED 81 MG TABLET.EC PO SCH (09:01)
[2016-06-29] MEDS: buPROPion HCL 75 MG TABLET PO SCH ×2 (09:01→21:37)
[2016-06-29] MEDS: LISINOPRIL 5 MG TABLET (FP) PO SCH (09:01)
[2016-06-29] MEDS: CILOSTAZOL 50 MG TABLET (FP) PO SCH (09:02)
[2016-06-29] MEDS: BUDESONIDE/FORMETEROL FUMARATE 160/4.5 mcg INHALER IH SCH ×2 (09:02→21:37)
[2016-06-29] MEDS: NICOTINE 14 MG/24 HOURS TOPICAL PATCH TD SCH (09:02)
[2016-06-29] MEDS: FUROSEMIDE 40 MG TABLET (FP) PO SCH (09:07)
--- NOTE | 2016-06-29 15:47 | PN ---
Progress Note (short form) - Note Progress Note: Physical Exam: SUBJECTIVE: Patient seen and examined Afebrile Breathing better. Denies chest pain, shortness of breath, palpitation or dizziness. OBJECTIVE: Vital Signs Period Temp Pulse Resp BP Sys/El Pulse Ox Last 24 Hr 97.4 F-98 F 66-105 16-22 120-163/58-87 98-98 GENERAL: The patient is awake, alert, and fully oriented, in no acute distress. HEAD: Normal with no signs of trauma. EYES: PERRL, extraocular movements intact, sclera anicteric, conjunctiva clear. No ptosis. ENT: Ears normal, nares patent, oropharynx clear without exudates, moist mucous membranes. NECK: Trachea midline, full range of motion, supple. LUNGS: bilateral lung sound diminished, no wheezing HEART: Regular rate and rhythm, S1, S2 without murmur, rub or gallop. ABDOMEN: Soft, nontender, nondistended, normoactive bowel sounds, no guarding, no rebound, no hepatosplenomegaly, no masses. EXTREMITIES: 2+ pulses, warm, well-perfused, no edema. NEUROLOGICAL: Normal speech, gait not observed. PSYCH: Normal mood, normal affect. SKIN: Warm, dry, normal turgor, no rashes or lesions noted CBC, BMP 06/29/16 05:35 06/29/16 05:35 Current Medications Acetaminophen (Tylenol -) 650 mg PO Q4H PRN PRN Reason: FEVER OR PAIN Last Admin: 06/29/16 12:45 Dose: 650 mg Acetaminophen (Tylenol -) 325 mg PO Q6H PRN PRN Reason: PAIN Last Admin: 06/27/16 20:10 Dose: 325 mg Albuterol Sulfate (Ventolin 0.083% Nebulizer Soln -) 1 amp NEB Q6H PRN PRN Reason: SHORT OF BREATH/WHEEZING Last Admin: 06/28/16 06:30 Dose: 1 amp Amlodipine Besylate (Norvasc -) 5 mg PO DAILY [facility] Last Admin: 06/29/16 09:01 Dose: 5 mg Aspirin (Ecotrin -) 81 mg PO DAILY [facility] Last Admin: 06/29/16 09:01 Dose: 81 mg Atorvastatin Calcium (Lipitor -) 10 mg PO HS [facility] Last Admin: 06/28/16 21:49 Dose: 10 mg Budesonide/Formoterol Fumarate (Symbicort 160/4.5mcg -) 2 puff IH BID [facility] Last Admin: 06/29/16 09:02 Dose: 2 puff Bupropion HCl (Wellbutrin -) 75 mg PO BID [facility] Last Admin: 06/29/16 09:01 Dose: 75 mg Carvedilol (Coreg -) 25 mg PO BID [facility] Last Admin: 06/29/16 09:01 Dose: 25 mg Cholecalciferol (Vitamin D3 -) 2,000 unit PO DAILY [facility] Last Admin: 06/29/16 09:01 Dose: 2,000 unit Cilostazol (Pletal -) 50 mg PO DAILY [facility] Last Admin: 06/29/16 09:02 Dose: 50 mg Clopidogrel Bisulfate (Plavix -) 75 mg PO DAILY [facility] Last Admin: 06/29/16 09:01 Dose: 75 mg Furosemide (Lasix -) 80 mg PO DAILY [facility] Last Admin: 06/29/16 09:07 Dose: 80 mg Heparin Sodium (Porcine) (Heparin -) 5,000 unit SQ TID [facility] Last Admin: 06/29/16 14:20 Dose: Not Given Insulin Aspart (Novolog Vial Sliding Scale -) 1 vial SQ [facility] PRN Reason: Protocol Last Admin: 06/29/16 11:27 Dose: Not Given Lisinopril (Prinivil) 5 mg PO DAILY [facility] Last Admin: 06/29/16 09:01 Dose: 5 mg Metformin HCl (Glucophage -) 1,000 mg PO BIDAC [facility] Last Admin: 06/29/16 06:13 Dose: 1,000 mg Nicotine (Nicoderm Patch -) 14 mg TD DAILY [facility] Last Admin: 06/29/16 09:02 Dose: 14 mg Ondansetron HCl (Zofran Injection) 4 mg IVPB Q6H PRN PRN Reason: NAUSEA Oxycodone HCl (Roxicodone -) 10 mg PO Q6H PRN PRN Reason: PAIN LEVEL 6-10 Last Admin: 06/29/16 12:44 Dose: 10 mg Zolpidem Tartrate (Ambien -) 10 mg PO HS PRN PRN Reason: INSOMNIA Last Admin: 06/28/16 21:48 Dose: 10 mg ASSESSMENT/PLAN: Patient is a 61 year old male with a significant past medical history of CABG, CAD, CHF, HTN, COPD, home oxygen dependent and DM. He presents to the ER on with SOB, dyspnea with exertion and chest pain when coughing x 2 days. At home he states that he was using his oxygen more frequently as he normally uses it as needed. He denies fever, chills, abdominal pain, N/V, diarrhea, constipation. Cardiology: Congestive Heart Failure - acute on chronic Assessment/Plan: Improving. On lasix 80 mg daily. Troponins negative x 3 Monitor intake and output Daily weights Obtain pre and post, on home oxygen therapy prn Coronary Artery Disease/Hypertension - stable Assessment/Plan: No chest pain on exam, on Plavix, coreq 25mg PO BID On ASA 81mg daily BP controlled Pulmonary: Hypoxia - acute on chronic respiratory failure - improving Assessment/Plan: Likely secondary to CHF exacerbation On 2 - 3 liters of continuous oxygen - improving Home oxygen dependent CT Chest: Persistent mild to moderate left pleural effusion with ?? left lower infiltrate. Persistent since last CT Chest 02/2016. Per pulmonary note 02/2016 - if persistent then for thoracentesis. Pulmonary consulted for above. Strong smoking history. : Chronic Kidney Disease Assessment/Plan: Monitor BMP daily Endocrine: Diabetes Mellitus Assessment/Plan: On Metformin BID Monitor on sliding scale diabetic diet F.E.N. Fluids: no ivf/on Lasix Electrolytes: BMP in a.m. Nutrition: diabetic diet Prophylaxis: GI: coalce, zofran DVT:heparin BID, ambulation Disposition; Requires inpatient hospitalization. Full Code.
[2016-06-29] MEDS: ATORVASTATIN CA 10 MG TABLET (FP) PO SCH (21:37)
[2016-06-29] MEDS: ZOLPIDEM TARTRATE 5 MG TABLET PO PRN (21:37)
[2016-06-30] MEDS: oxyCODONE HCL 5 MG TABLET PO PRN ×3 (05:19→18:10)
[2016-06-30] MEDS: ACETAMINOPHEN 325 MG TABLET (FP) PO PRN ×3 (05:20→18:12)
[2016-06-30] MEDS: HEPARIN NA (PORCINE) 5,000 UNITS/ML 1ML VIAL SQ SCH ×3 (05:23→22:18)
[2016-06-30] MEDS: INSULIN SLIDING SCALE (NOVOLOG) 1 VIAL SQ SCH ×4 (06:20→22:21)
[2016-06-30] MEDS: metFORMIN HCL 500 MG TABLET (FP) PO SCH ×2 (06:24→17:46)
[2016-06-30 07:49] LABS: BASOPHIL 1.2 % (0-2.0); EOSINOPHIL 4.5 % (0-4.5); MCH 29.7 pg (25.7-33.7); MCHC 33.1 g/dl (32.0-35.9); MEAN CELL VOLUME 89.7 fl (80-96); MEAN PLT VOLUME 8.2 fl (7.5-11.1); PLATELET COUNT 166 K/MM3 (134-434); RDW 16.4 % (11.9-15.9); WHITE BLOOD COUNT 7.5 K/mm3 (4.0-10.0)
[2016-06-30 07:52] LABS: ALBUMIN 3.1 g/dl (3.4-5.0); CALCIUM 8.3 mg/dL (8.5-10.1)
[2016-06-30 07:55] LABS: BILIRUBIN,TOTAL 0.3 mg/dL (0.2-1.0); CREATININE 1.4 mg/dL (0.7-1.3); TOT PROT 6.4 g/dl (6.4-8.2)
--- NOTE | 2016-06-30 08:51 | PN ---
Progress Note, Physician Chief Complaint: chf History of Present Illness: no sob, orthopnea, cp, palpit, dizzy/LH - Current Medication List Current Medications: Active Medications Acetaminophen (Tylenol -) 650 mg PO Q4H PRN PRN Reason: FEVER OR PAIN Last Admin: 06/30/16 05:20 Dose: 650 mg Acetaminophen (Tylenol -) 325 mg PO Q6H PRN PRN Reason: PAIN Last Admin: 06/27/16 20:10 Dose: 325 mg Amlodipine Besylate (Norvasc -) 5 mg PO DAILY [facility] Last Admin: 06/29/16 09:01 Dose: 5 mg Aspirin (Ecotrin -) 81 mg PO DAILY [facility] Last Admin: 06/29/16 09:01 Dose: 81 mg Atorvastatin Calcium (Lipitor -) 10 mg PO HS [facility] Last Admin: 06/29/16 21:37 Dose: 10 mg Budesonide/Formoterol Fumarate (Symbicort 160/4.5mcg -) 2 puff IH BID [facility] Last Admin: 06/29/16 21:37 Dose: 2 puff Bupropion HCl (Wellbutrin -) 75 mg PO BID [facility] Last Admin: 06/29/16 21:37 Dose: 75 mg Carvedilol (Coreg -) 25 mg PO BID [facility] Last Admin: 06/29/16 21:37 Dose: 25 mg Cholecalciferol (Vitamin D3 -) 2,000 unit PO DAILY [facility] Last Admin: 06/29/16 09:01 Dose: 2,000 unit Cilostazol (Pletal -) 50 mg PO DAILY [facility] Last Admin: 06/29/16 09:02 Dose: 50 mg Clopidogrel Bisulfate (Plavix -) 75 mg PO DAILY [facility] Last Admin: 06/29/16 09:01 Dose: 75 mg Furosemide (Lasix -) 80 mg PO DAILY [facility] Last Admin: 06/29/16 09:07 Dose: 80 mg Heparin Sodium (Porcine) (Heparin -) 5,000 unit SQ TID [facility] Last Admin: 06/30/16 05:23 Dose: Not Given Insulin Aspart (Novolog Vial Sliding Scale -) 1 vial SQ ACHS [facility] PRN Reason: Protocol Last Admin: 06/30/16 06:20 Dose: Not Given Lisinopril (Prinivil) 5 mg PO DAILY [facility] Last Admin: 06/29/16 09:01 Dose: 5 mg Metformin HCl (Glucophage -) 1,000 mg PO BIDAC [facility] Last Admin: 06/30/16 06:24 Dose: 1,000 mg Nicotine (Nicoderm Patch -) 14 mg TD DAILY [facility] Last Admin: 06/29/16 09:02 Dose: 14 mg Ondansetron HCl (Zofran Injection) 4 mg IVPB Q6H PRN PRN Reason: NAUSEA Oxycodone HCl (Roxicodone -) 10 mg PO Q6H PRN PRN Reason: PAIN LEVEL 6-10 Last Admin: 06/30/16 05:19 Dose: 10 mg Zolpidem Tartrate (Ambien -) 10 mg PO HS PRN PRN Reason: INSOMNIA Last Admin: 06/29/16 21:37 Dose: 10 mg - Objective Vital Signs: Vital Signs Temperature 97.5 F L 06/30/16 06:00 Pulse Rate 66 06/30/16 06:00 Respiratory Rate 20 06/30/16 06:00 Blood Pressure 131/59 06/30/16 06:00 O2 Sat by Pulse Oximetry (%) 97 06/29/16 21:00 Constitutional: Yes: Well Nourished, No Distress, Calm Cardiovascular: Yes: Regular Rate and Rhythm, S1, S2. No: Gallop, Murmur Respiratory: Yes: Regular, CTA Bilaterally, Diminished (L base). No: Accessory Muscle Use, Rales, Wheezes Extremities: No: Cold Edema: No Neurological: Yes: Alert, Oriented Psychiatric: No: Agitated Labs: CBC, BMP 06/30/16 05:32 06/30/16 05:32 - ....Imaging EKG: Other (tele: NSR, v-paced at times overnight) Assessment/Plan echo 06/2015: mild lve, mod-sev dec lvef, mod lae, nl rv size, mild dec rv fcn, mild-mod mr, mild tr, nl avr fcn, rvsp 30-40 echo 06/2016: sev dec lvef, global hk, rv tds, trinity, mod-sev mr, mod tr, rvsp 50- 60 mibi 09/2014: large inf scar, mod anteroapical ischemia, lvef 25% mibi 06/2016 (pers): non-diagnostic STs; large area inferior/inferolateral/ lateral scar; no ischemia; severe LV cavity dilation; global HK with akinesis of inferior/inferolat/lateral allan; EF 16% a/p: 61 m hx copd, cabgx3 2012, bio avr 2012, pad s/p b/l sfa occlusions, syst chf s/p medtronic icd, htn, hld, a-tach, here with sob. acute systolic chf/persistent L effusion: -here with ? mild acute decomp chf earlier this month--discharged after 2 days of iv diuresis--was likely incompletely diuresed at that time -came in on lasix 40 qd at that time, sent home on same regimen -? dry wt; was diuresed from 204 to 191 on d/c when here 02/19; was unchanged at 189 lbs x 2d in a row when recently here earlier this month, and may have been at hi filling pressures at that time -BNP 8K here (ranges 7K-12K on prior values) -CXR with diffuse interstitial markings changed vs 02/19, unchanged vs 06/20; probably vascular redistribution as well and L effusion--all stable vs 06/20 -getting lasix 80 iv qd here -06/28: wt trend: 190-->183 -bun rising slightly here, creat stable -severe JVD on admit--now resolved -cont lasix 80 iv today, reassess wt and labs in am--anticipate d/c home on lasix 80 po qd tomorrow 06/29 -06/29: wt unchanged today (183); bun/creat stable; rpt cxr yesterday mild decr in intersititial markings, persistent L base opacity ? effusion -changed to lasix 80 po qd -06/30: wt stable, creat stable, ? bun trending up -CT chest persistent small-moderate L effusion (since 02/19) -cont 80mg po lasix as doing--if bun/creat trends up signif, will need to cut back -pt to see kitty 1-2 week after discharge -f/u pulm consult re: ? diagnostic thoracentesis -QRS 130s msec--consider upgrade to GU[employer]LINE OPERATOR--f/u in office with kitty -no ischemia on nuclear perfusion imaging this month, no signs ACS here intermittent cardiac rhythm of ? morphology (HR 90-100): -reviewed strips with EP today -? AIVR, ? PMT -not clinically significant, requires no additional acute tx -pt will have device check with dr tang +/- EP review as outpt cad/hx of CABG 2012 -no recent angina/ischemia -present sx's not suggestive for angina, no acute ecg changes, enzymes neg x 3 -cont prior cad med regimen: deidra, dapt, statin, bb, ccb bio avr: -nl fcn on echo 06/20 mitral regurgitation: -likely functional MR, mild-mod on echo 06/19, then "mod-severe" when here 06/20 with suspected acute chf and pulm pressures up (though at risk for overestimation of MR severity on that echo report) - valve morphology not described (tethered leaflets?) -no murmur on exam -reassess MR severity on echo once pt adequately diuresed, though surgical or clip intervention not indicated/proven for functional MR CKD: -creat stable at baseline (1.4-1.5) -daily trend with diuresis, as above pad: -stable, no claudication, cont current cardiac meds, pletal s/p icd: -no shocks -nl function on recent office check 05/2016 htn: -cont home meds hld: -cont statin atach: -minimal episodes seen in past on icd checks -cont bb -monitor tele anemia: -chronic, stable counts here vs baseline -per pmd
[2016-06-30] MEDS ORDERED: PT OWN MED DRAWER 7, Y5N ONE (08:53)
[2016-06-30 09:14] LABS: MAGNESIUM 1.8 mg/dL (1.8-2.4)
[2016-06-30] MEDS: CHOLECALCIFEROL (VITAMIN D3) 1,000 UNIT TABLET (FP) PO SCH (09:33)
[2016-06-30] MEDS: buPROPion HCL 75 MG TABLET PO SCH ×2 (09:33→22:16)
[2016-06-30] MEDS: ASPIRIN COATED 81 MG TABLET.EC PO SCH (09:33)
[2016-06-30] MEDS: CARVEDILOL 25 MG TABLET (FP) PO SCH ×2 (09:33→22:16)
[2016-06-30] MEDS: NICOTINE 14 MG/24 HOURS TOPICAL PATCH TD SCH (09:33)
[2016-06-30] MEDS: FUROSEMIDE 40 MG TABLET (FP) PO SCH (09:33)
[2016-06-30] MEDS: CILOSTAZOL 50 MG TABLET (FP) PO SCH (09:34)
[2016-06-30] MEDS: CLOPIDOGREL BISULFATE 75 MG TABLET (FP) PO SCH (09:34)
[2016-06-30] MEDS: LISINOPRIL 5 MG TABLET (FP) PO SCH (09:34)
[2016-06-30] MEDS: amLODIPine BESYLATE 5 MG TABLET (FP) PO SCH (09:34)
--- NOTE | 2016-06-30 11:13 | PN ---
Progress Note, Physician Chief Complaint: Mr Owen says he is feeling well today. Says his breathing is normal and he is not requiring oxygen. No cp, sob, n/v. - Current Medication List Current Medications: Active Medications Acetaminophen (Tylenol -) 650 mg PO Q4H PRN PRN Reason: FEVER OR PAIN Last Admin: 06/30/16 05:20 Dose: 650 mg Acetaminophen (Tylenol -) 325 mg PO Q6H PRN PRN Reason: PAIN Last Admin: 06/27/16 20:10 Dose: 325 mg Amlodipine Besylate (Norvasc -) 5 mg PO DAILY [facility] Last Admin: 06/30/16 09:34 Dose: 5 mg Aspirin (Ecotrin -) 81 mg PO DAILY [facility] Last Admin: 06/30/16 09:33 Dose: 81 mg Atorvastatin Calcium (Lipitor -) 10 mg PO HS [facility] Last Admin: 06/29/16 21:37 Dose: 10 mg Budesonide/Formoterol Fumarate (Symbicort 160/4.5mcg -) 2 puff IH BID [facility] Last Admin: 06/29/16 21:37 Dose: 2 puff Bupropion HCl (Wellbutrin -) 75 mg PO BID [facility] Last Admin: 06/30/16 09:33 Dose: 75 mg Carvedilol (Coreg -) 25 mg PO BID [facility] Last Admin: 06/30/16 09:33 Dose: 25 mg Cholecalciferol (Vitamin D3 -) 2,000 unit PO DAILY [facility] Last Admin: 06/30/16 09:33 Dose: 2,000 unit Cilostazol (Pletal -) 50 mg PO DAILY [facility] Last Admin: 06/30/16 09:34 Dose: 50 mg Clopidogrel Bisulfate (Plavix -) 75 mg PO DAILY [facility] Last Admin: 06/30/16 09:34 Dose: 75 mg Furosemide (Lasix -) 80 mg PO DAILY [facility] Last Admin: 06/30/16 09:33 Dose: 80 mg Heparin Sodium (Porcine) (Heparin -) 5,000 unit SQ TID [facility] Last Admin: 06/30/16 05:23 Dose: Not Given Insulin Aspart (Novolog Vial Sliding Scale -) 1 vial SQ ACHS [facility] PRN Reason: Protocol Last Admin: 06/30/16 06:20 Dose: Not Given Lisinopril (Prinivil) 5 mg PO DAILY [facility] Last Admin: 06/30/16 09:34 Dose: 5 mg Metformin HCl (Glucophage -) 1,000 mg PO BIDAC [facility] Last Admin: 06/30/16 06:24 Dose: 1,000 mg Nicotine (Nicoderm Patch -) 14 mg TD DAILY [facility] Last Admin: 06/30/16 09:33 Dose: 14 mg Ondansetron HCl (Zofran Injection) 4 mg IVPB Q6H PRN PRN Reason: NAUSEA Oxycodone HCl (Roxicodone -) 10 mg PO Q6H PRN PRN Reason: PAIN LEVEL 6-10 Last Admin: 06/30/16 05:19 Dose: 10 mg Zolpidem Tartrate (Ambien -) 10 mg PO HS PRN PRN Reason: INSOMNIA Last Admin: 06/29/16 21:37 Dose: 10 mg - Objective Vital Signs: Vital Signs Temperature 97.8 F 06/30/16 10:00 Pulse Rate 68 06/30/16 10:00 Respiratory Rate 18 06/30/16 10:00 Blood Pressure 118/58 06/30/16 10:00 O2 Sat by Pulse Oximetry (%) 97 06/29/16 21:00 Constitutional: Yes: Well Nourished, No Distress, Calm Cardiovascular: Yes: Regular Rate and Rhythm. No: Gallop, Murmur, Rub Respiratory: Yes: Regular, CTA Bilaterally. No: Rales, Rhonchi, Wheezes Gastrointestinal: Yes: Normal Bowel Sounds, Soft. No: Distention, Tenderness Extremities: Yes: WNL Edema: No Labs: CBC, BMP 06/30/16 05:32 06/30/16 05:32 Problem List - Problems (1) CHF exacerbation Code(s): I50.9 - HEART FAILURE, UNSPECIFIED Qualifiers: Congestive heart failure type: systolic Qualified Code(s): I50.23 - Acute on chronic systolic (congestive) heart failure (2) Acute on chronic respiratory failure with hypoxemia Code(s): J96.21 - ACUTE AND CHRONIC RESPIRATORY FAILURE WITH HYPOXIA (3) COPD (chronic obstructive pulmonary disease) Code(s): J44.9 - CHRONIC OBSTRUCTIVE PULMONARY DISEASE, UNSPECIFIED (4) CAD (coronary artery disease) Code(s): I25.10 - ATHSCL HEART DISEASE OF [place] CORONARY ARTERY W/O ANG PCTRS (5) CKD (chronic kidney disease) Code(s): N18.9 - CHRONIC KIDNEY DISEASE, UNSPECIFIED Qualifiers: Chronic kidney disease stage: stage 3 (moderate) Qualified Code(s): N18.3 - Chronic kidney disease, stage 3 (moderate) (6) Diabetes Code(s): E11.9 - TYPE 2 DIABETES MELLITUS WITHOUT COMPLICATIONS Qualifiers: Diabetes mellitus type: type 2 Diabetes mellitus complication detail: with chronic kidney disease (7) HTN (hypertension) Code(s): I10 - ESSENTIAL (PRIMARY) HYPERTENSION Qualifiers: Hypertension type: essential hypertension Qualified Code(s): I10 - Essential (primary) hypertension Assessment/Plan (1) CHF exacerbation Assessment/Plan: -appreciate cardiology assistance, note reviewed -much improved -currently on oral lasix, continue -outpatient follow up with Dr Zafar Code(s): I50.9 - HEART FAILURE, UNSPECIFIED Qualifiers: Congestive heart failure type: systolic Qualified Code(s): I50.23 - Acute on chronic systolic (congestive) heart failure (2) Acute on chronic respiratory failure with hypoxemia Assessment/Plan: -resolved and at baseline Code(s): J96.21 - ACUTE AND CHRONIC RESPIRATORY FAILURE WITH HYPOXIA (3) COPD (chronic obstructive pulmonary disease) Assessment/Plan: -not in exacerbation -continue home regimen -will closely follow Code(s): J44.9 - CHRONIC OBSTRUCTIVE PULMONARY DISEASE, UNSPECIFIED (4) CAD (coronary artery disease) Assessment/Plan: -recent stress test, no change from prior -no chest pain -cardiology following, continue medical management Code(s): I25.10 - ATHSCL HEART DISEASE OF [place] CORONARY ARTERY W/O ANG PCTRS (5) CKD (chronic kidney disease) Assessment/Plan: -at baseline Code(s): N18.9 - CHRONIC KIDNEY DISEASE, UNSPECIFIED Qualifiers: Chronic kidney disease stage: stage 3 (moderate) Qualified Code(s): N18.3 - Chronic kidney disease, stage 3 (moderate) (6) Diabetes Assessment/Plan: -continue metformin -SSI -diabetic diet Code(s): E11.9 - TYPE 2 DIABETES MELLITUS WITHOUT COMPLICATIONS Qualifiers: Diabetes mellitus type: type 2 Diabetes mellitus complication detail: with chronic kidney disease (7) HTN (hypertension) Assessment/Plan: -controlled -continue amlodipine, coreg, lisinopril, and lasix Code(s): I10 - ESSENTIAL (PRIMARY) HYPERTENSION Qualifiers: Hypertension type: essential hypertension Qualified Code(s): I10 - Essential (primary) hypertension (8) Pleural effusion -seen on previous chest CT -pulmonary consulted and awaiting recommendations (? thoracentesis) -disposition pending pulmonary recs
[2016-06-30] MEDS: BUDESONIDE/FORMETEROL FUMARATE 160/4.5 mcg INHALER IH SCH ×2 (12:09→22:18)
--- NOTE | 2016-06-30 12:16 | PN ---
Progress Note (short form) - Note Progress Note: PULMONARY CONSULTATION DICTATED 06/30/16 IMP ADVANCED COPD WITH CHRONIC HYPOXEMIC RESPIRATORY FAILURE ON HOME O2 LEFT PLEURAL EFFUSION CHF ASHD S/P CABG,S/P ICD AFIB CKD DM SMOKER PLAN INHALED BRONCHODILATORS NASAL O2 LASIX DIAGNOSTIC THORACENTESIS OUTPATIENT ThursdayJULY 07 AT 11AM HOLD PLAVIX,ASA,PLETAL DR BATISTA Problem List - Problems (1) CHF exacerbation Code(s): I50.9 - HEART FAILURE, UNSPECIFIED Qualifiers: Congestive heart failure type: systolic Qualified Code(s): I50.23 - Acute on chronic systolic (congestive) heart failure (2) COPD exacerbation Code(s): J44.1 - CHRONIC OBSTRUCTIVE PULMONARY DISEASE W (ACUTE) EXACERBATION (3) Acute on chronic respiratory failure with hypoxemia Code(s): J96.21 - ACUTE AND CHRONIC RESPIRATORY FAILURE WITH HYPOXIA (4) Angina at rest Code(s): I20.8 - OTHER FORMS OF ANGINA PECTORIS (5) CAD (coronary artery disease) Code(s): I25.10 - ATHSCL HEART DISEASE OF [place] CORONARY ARTERY W/O ANG PCTRS (6) CHF (congestive heart failure) Code(s): I50.9 - HEART FAILURE, UNSPECIFIED Qualifiers: Congestive heart failure type: systolic Congestive heart failure chronicity: chronic Qualified Code(s): I50.22 - Chronic systolic ( congestive) heart failure (7) CKD (chronic kidney disease) Code(s): N18.9 - CHRONIC KIDNEY DISEASE, UNSPECIFIED Qualifiers: Chronic kidney disease stage: stage 3 (moderate) Qualified Code(s): N18.3 - Chronic kidney disease, stage 3 (moderate) (8) Coronary artery disease Code(s): I25.10 - ATHSCL HEART DISEASE OF [place] CORONARY ARTERY W/O ANG PCTRS Qualifiers: Coronary Disease-Associated Artery/Lesion type: bypass graft, other Associated angina: with other forms of angina Qualified Code(s): I25.798 - Atherosclerosis of other coronary artery bypass graft(s) with other forms of angina pectoris (9) Diabetes Code(s): E11.9 - TYPE 2 DIABETES MELLITUS WITHOUT COMPLICATIONS Qualifiers: Diabetes mellitus type: type 2 Diabetes mellitus complication detail: with chronic kidney disease (10) HTN (hypertension) Code(s): I10 - ESSENTIAL (PRIMARY) HYPERTENSION Qualifiers: Hypertension type: essential hypertension Qualified Code(s): I10 - Essential (primary) hypertension (11) Nicotine dependence Code(s): F17.200 - NICOTINE DEPENDENCE, UNSPECIFIED, UNCOMPLICATED (12) S/P CABG x 3 Code(s): Z95.1 - PRESENCE OF AORTOCORONARY BYPASS GRAFT (14) Pleural effusion Code(s): J90 - PLEURAL EFFUSION, NOT ELSEWHERE CLASSIFIED
--- NOTE | 2016-06-30 12:58 | CONS ---
DATE OF CONSULTATION: 06/30/2016 REFERRING PHYSICIAN: Isidro Morales MD HISTORY: The patient is a 61-year-old white male known to me from previous previous hospitalization with past medical history of advanced COPD on home O2, ASHD status post CABG, congestive heart failure status post ICD, atrial fibrillation on an LESTER, diabetes mellitus, history of tobacco use admitted to [facility] on June 24 secondary to increasing shortness of breath x2 days duration. The patient denies any complaints of chest pain, nausea, vomiting, or diaphoresis. He states that he was unable to lie flat secondary to shortness of breath and developed severe dyspnea with minimal exertion. Denies any fevers or chills. Denies any cough or hemoptysis. Apparently, he said he was compliant with all of his medications. The patient on admission was found to have decompensated congestive heart failure. He was placed on Lasix with good clinical response. Of note, this patient underwent CT scan of his chest on June 29 that reveals a left pleural effusion and left basilar consolidation, likely atelectasis. The patient denies any fevers, weight loss, night sweats. Denies any chronic cough or hemoptysis. PAST MEDICAL HISTORY: Again includes advanced COPD on home O2, ASHD status post CABG, congestive heart failure, ICD, atrial fibrillation, advanced COPD on home O2, diabetes mellitus. SOCIAL HISTORY: History of tobacco use. Currently still smoking 3/4 pack per day. 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 REVIEW OF SYSTEMS: Positive orthopnea, dyspnea on exertion. No chest pain, no palpitations, no cough, no hemoptysis, no fevers, no weight loss, no night sweats, no lower extremity edema. CURRENT MEDICATIONS: Include Zofran, Symbicort, Tylenol, Prinivil, heparin, Wellbutrin, Ambien, Nicoderm, Coreg, Glucophage, insulin, Lasix, and vitamin D3. PHYSICAL EXAMINATION: General: The patient is a well-developed, well-nourished male awake and alert in no acute distress. Vital Signs: He is afebrile. Blood pressure is 118/58, respiratory rate 18, O2 saturation 97% on room air. HEENT: Normocephalic and atraumatic. Neck: Supple. Heart: Irregularly irregular with normal S1, S2. Chest: Diminished breath sounds bilaterally. Abdomen: Soft. Bowel sounds positive. Extremities: Trace lower extremity edema. LABORATORIES: WBC 7.5, hemoglobin 8.9, hematocrit 27, platelet count 166,000, BUN 47, creatinine 1.4. DIAGNOSTIC DATA: Chest CT reveals cardiomegaly. There is mildly increased left pleural effusion and left basilar opacity most likely atelectasis. IMPRESSION: 1. Advanced chronic obstructive pulmonary disease with chronic hypoxemic respiratory failure on home O2. 2. Chronic left pleural effusion, etiology undetermined. 3. Advanced decompensated congestive heart failure. 4. Arteriosclerotic heart disease status post coronary artery bypass graft status post implantable cardioverter-defibrillator. 5. Diabetes. 6. Smoker. PLAN: Continue Lasix, inhaled bronchodilators, supplemental O2. We will schedule for diagnostic thoracentesis to rule out possible underlying infectious and/or underlying malignant etiology with a longstanding history of tobacco use. MINDY BATISTA M.D. [id number]
[2016-06-30] MEDS: ZOLPIDEM TARTRATE 5 MG TABLET PO PRN (22:17)
[2016-06-30] MEDS: ATORVASTATIN CA 10 MG TABLET (FP) PO SCH (22:17)
[2016-07-01] MEDS: oxyCODONE HCL 5 MG TABLET PO PRN ×2 (03:08→09:51)
[2016-07-01] MEDS: ACETAMINOPHEN 325 MG TABLET (FP) PO PRN ×2 (03:09→09:52)
[2016-07-01] MEDS: HEPARIN NA (PORCINE) 5,000 UNITS/ML 1ML VIAL SQ SCH ×2 (06:44→13:09)
[2016-07-01] MEDS: metFORMIN HCL 500 MG TABLET (FP) PO SCH (06:45)
[2016-07-01] MEDS: INSULIN SLIDING SCALE (NOVOLOG) 1 VIAL SQ SCH ×2 (06:45→11:53)
[2016-07-01 07:23] LABS: BASOPHIL 1.2 % (0-2.0); EOSINOPHIL 4.5 % (0-4.5); MCH 29.4 pg (25.7-33.7); MCHC 32.6 g/dl (32.0-35.9); MEAN CELL VOLUME 90.1 fl (80-96); MEAN PLT VOLUME 8.3 fl (7.5-11.1); NEUTROPHILS 70.4 % (42.8-82.8); PLATELET COUNT 167 K/MM3 (134-434); RDW 16.3 % (11.9-15.9); WHITE BLOOD COUNT 7.2 K/mm3 (4.0-10.0)
[2016-07-01 07:56] LABS: CALCIUM 8.3 mg/dL (8.5-10.1); CREATININE 1.5 mg/dL (0.7-1.3); MAGNESIUM 1.9 mg/dL (1.8-2.4); PHOSPHOROUS 3.3 mg/dL (2.5-4.9)
[2016-07-01] MEDS: NICOTINE 14 MG/24 HOURS TOPICAL PATCH TD SCH (09:44)
[2016-07-01] MEDS: CARVEDILOL 25 MG TABLET (FP) PO SCH (09:45)
[2016-07-01] MEDS: CHOLECALCIFEROL (VITAMIN D3) 1,000 UNIT TABLET (FP) PO SCH (09:45)
[2016-07-01] MEDS: LISINOPRIL 5 MG TABLET (FP) PO SCH (09:45)
[2016-07-01] MEDS: amLODIPine BESYLATE 5 MG TABLET (FP) PO SCH (09:45)
[2016-07-01] MEDS: buPROPion HCL 75 MG TABLET PO SCH (09:45)
[2016-07-01] MEDS: FUROSEMIDE 40 MG TABLET (FP) PO SCH (09:45)
[2016-07-01] MEDS: BUDESONIDE/FORMETEROL FUMARATE 160/4.5 mcg INHALER IH SCH (09:46)
[2016-07-01 10:21] VITALS: BP 126/56; TEMP 98
--- NOTE | 2016-07-01 10:47 | PN ---
Progress Note (short form) - Note Progress Note: Chief Complaint: chf History of Present Illness: no sob, orthopnea, cp, palpit, dizzy/LH. + constipation. Current Medications Acetaminophen (Tylenol -) 650 mg PO Q4H PRN PRN Reason: FEVER OR PAIN Last Admin: 07/01/16 09:52 Dose: 650 mg Acetaminophen (Tylenol -) 325 mg PO Q6H PRN PRN Reason: PAIN Last Admin: 06/27/16 20:10 Dose: 325 mg Amlodipine Besylate (Norvasc -) 5 mg PO DAILY [facility] Last Admin: 07/01/16 09:45 Dose: 5 mg Atorvastatin Calcium (Lipitor -) 10 mg PO HS [facility] Last Admin: 06/30/16 22:17 Dose: 10 mg Budesonide/Formoterol Fumarate (Symbicort 160/4.5mcg -) 2 puff IH BID [facility] Last Admin: 07/01/16 09:46 Dose: 2 puff Bupropion HCl (Wellbutrin -) 75 mg PO BID [facility] Last Admin: 07/01/16 09:45 Dose: 75 mg Carvedilol (Coreg -) 25 mg PO BID [facility] Last Admin: 07/01/16 09:45 Dose: 25 mg Cholecalciferol (Vitamin D3 -) 2,000 unit PO DAILY [facility] Last Admin: 07/01/16 09:45 Dose: 2,000 unit Furosemide (Lasix -) 80 mg PO DAILY [facility] Last Admin: 07/01/16 09:45 Dose: 80 mg Heparin Sodium (Porcine) (Heparin -) 5,000 unit SQ TID [facility] Last Admin: 07/01/16 06:44 Dose: Not Given Insulin Aspart (Novolog Vial Sliding Scale -) 1 vial SQ ACHS [facility] PRN Reason: Protocol Last Admin: 07/01/16 06:45 Dose: Not Given Lisinopril (Prinivil) 5 mg PO DAILY [facility] Last Admin: 07/01/16 09:45 Dose: 5 mg Metformin HCl (Glucophage -) 1,000 mg PO BIDAC [facility] Last Admin: 07/01/16 06:45 Dose: 1,000 mg Nicotine (Nicoderm Patch -) 14 mg TD DAILY [facility] Last Admin: 07/01/16 09:44 Dose: 14 mg Ondansetron HCl (Zofran Injection) 4 mg IVPB Q6H PRN PRN Reason: NAUSEA Oxycodone HCl (Roxicodone -) 10 mg PO Q6H PRN PRN Reason: PAIN LEVEL 6-10 Last Admin: 07/01/16 09:51 Dose: 10 mg Zolpidem Tartrate (Ambien -) 10 mg PO HS PRN PRN Reason: INSOMNIA Last Admin: 06/30/16 22:17 Dose: 10 mg Vital Signs - 24 hr 06/30/16 06/30/16 06/30/16 15:57 17:00 21:00 Temperature 98.2 F 97.7 F 97.7 F Pulse Rate 78 70 70 Respiratory 20 18 20 Rate Blood Pressure 118/63 128/67 123/85 O2 Sat by Pulse 98 Oximetry (%) 07/01/16 07/01/16 07/01/16 01:00 06:00 10:00 Temperature 98 F 97.6 F 98 F Pulse Rate 68 64 68 Respiratory 18 20 18 Rate Blood Pressure 116/52 125/60 126/56 O2 Sat by Pulse Oximetry (%) Intake & Output 06/29/16 06/30/16 07/01/16 07/02/16 07:59 07:59 07:59 07:59 Intake Total 850 500 480 Output Total 1800 Balance -950 500 480 Weight 183 lb 2 oz 183 lb 3.2 oz 183 lb 9.6 oz Constitutional: Yes: Well Nourished, No Distress, Calm Cardiovascular: Yes: Regular Rate and Rhythm, S1, S2. 2/6 murmur at apex. Respiratory: Yes: Regular, CTA Bilaterally, Diminished (L base). No: Accessory Muscle Use, Rales, Wheezes Extremities: No: Cold Edema: No Neurological: Yes: Alert, Oriented Psychiatric: No: Agitated Labs: CBC, BMP 07/01/16 05:47 07/01/16 05:47 - ....Imaging EKG: Other (tele: NSR with av-delay, v-paced at times overnight) Assessment/Plan echo 06/2015: mild lve, mod-sev dec lvef, mod lae, nl rv size, mild dec rv fcn, mild-mod mr, mild tr, nl avr fcn, rvsp 30-40 echo 06/2016: sev dec lvef, global hk, rv tds, trinity, mod-sev mr, mod tr, rvsp 50- 60 mibi 09/2014: large inf scar, mod anteroapical ischemia, lvef 25% mibi 06/2016 (pers): non-diagnostic STs; large area inferior/inferolateral/ lateral scar; no ischemia; severe LV cavity dilation; global HK with akinesis of inferior/inferolat/lateral allan; EF 16% a/p: 61 m hx copd, cabgx3 2012, bio avr 2012, pad s/p b/l sfa occlusions, syst chf s/p medtr[employer] icd, htn, hld, a-tach, here with sob. acute systolic chf/persistent L effusion: -here with ? mild acute decomp chf earlier this month--discharged after 2 days of iv diuresis--was likely incompletely diuresed at that time -came in on lasix 40 qd at that time, sent home on same regimen -? dry wt; was diuresed from 204 to 191 on d/c when here 02/19; was unchanged at 189 lbs x 2d in a row when recently here earlier this month, and may have been at hi filling pressures at that time -BNP 8K here (ranges 7K-12K on prior values) -CXR with diffuse interstitial markings changed vs 02/19, unchanged vs 06/20; probably vascular redistribution as well and L effusion--all stable vs 06/20 -getting lasix 80 iv qd here -06/28: wt trend: 190-->183 -bun rising slightly here, creat stable -severe JVD on admit--now resolved -cont lasix 80 iv today, reassess wt and labs in am--anticipate d/c home on lasix 80 po qd tomorrow 06/29 -06/29: wt unchanged today (183); bun/creat stable; rpt cxr yesterday mild decr in intersititial markings, persistent L base opacity ? effusion -changed to lasix 80 po qd -06/30: wt stable, creat stable, ? bun trending up -CT chest persistent small-moderate L effusion (since 02/19) -cont 80mg po lasix as doing--if bun/creat trends up signif, will need to cut back -f/u pulm consult re: ? 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 bioAVR--ok to hold all anti-PLTs x 6d (d/c'd). Bun/cr con't to rise, would decrease lasix to 40 mg/day. Patient will need to be counseled further on the importance of daily weights and close follow up with Dr. Mejía. Should see him 1-2 week after discharge intermittent cardiac rhythm of ? morphology (HR 90-100): -reviewed strips with EP today -? AIVR, ? PMT -not clinically significant, requires no additional acute tx -pt will have device check with dr tang +/- EP review as outpt cad/hx of CABG 2012 -no recent angina/ischemia -present sx's not suggestive for angina, no acute ecg changes, enzymes neg x 3 -cont prior cad med regimen: deidra, dapt, statin, bb, ccb bio avr: -nl fcn on echo 06/20 mitral regurgitation: -likely functional MR, mild-mod on echo 06/19, then "mod-severe" when here 06/20 with suspected acute chf and pulm pressures up (though at risk for overestimation of MR severity on that echo report) - valve morphology not described (tethered leaflets?) -no murmur on exam -reassess MR severity on echo once pt adequately diuresed, though surgical or clip intervention not indicated/proven for functional MR CKD: -creat stable at baseline (1.4-1.5) -daily trend with diuresis, as above pad: -stable, no claudication, cont current cardiac meds, pletal (hold) s/p icd: -no shocks -nl function on recent office check 05/2016 htn: -cont home meds hld: -cont statin atach: -minimal episodes seen in past on icd checks -cont bb -monitor tele anemia: -chronic, stable counts here vs baseline -per pmd
[2016-07-01 11:09] VITALS: PULSE 76
--- NOTE | 2016-07-01 12:30 | DS ---
Physical Examination Vital Signs: Vital Signs Temperature 98 F 07/01/16 10:00 Pulse Rate 76 07/01/16 11:08 Respiratory Rate 18 07/01/16 10:00 Blood Pressure 126/56 07/01/16 10:00 O2 Sat by Pulse Oximetry (%) 98 07/01/16 11:08 Constitutional: Yes: Well Nourished, No Distress, Calm Cardiovascular: Yes: Regular Rate and Rhythm. No: Gallop, Murmur, Rub Respiratory: Yes: Regular, CTA Bilaterally. No: Rales, Rhonchi, Wheezes Gastrointestinal: Yes: Normal Bowel Sounds, Soft. No: Distention, Tenderness Extremities: Yes: WNL Edema: No Labs: CBC, BMP 07/01/16 05:47 07/01/16 05:47 Discharge Summary Reason For Visit: ACUTE CHRONIC CHF,COPD,CHEST PAIN Current Active Problems Pleural effusion (Acute) Hospital Course: (1) CHF exacerbation Code(s): I50.9 - HEART FAILURE, UNSPECIFIED Qualifiers: Congestive heart failure type: systolic Qualified Code(s): I50.23 - Acute on chronic systolic (congestive) heart failure (2) Acute on chronic respiratory failure with hypoxemia Code(s): J96.21 - ACUTE AND CHRONIC RESPIRATORY FAILURE WITH HYPOXIA (3) COPD (chronic obstructive pulmonary disease) Code(s): J44.9 - CHRONIC OBSTRUCTIVE PULMONARY DISEASE, UNSPECIFIED (4) CAD (coronary artery disease) Code(s): I25.10 - ATHSCL HEART DISEASE OF [place] CORONARY ARTERY W/O ANG PCTRS (5) CKD (chronic kidney disease) Code(s): N18.9 - CHRONIC KIDNEY DISEASE, UNSPECIFIED Qualifiers: Chronic kidney disease stage: stage 3 (moderate) Qualified Code(s): N18.3 - Chronic kidney disease, stage 3 (moderate) (6) Diabetes Code(s): E11.9 - TYPE 2 DIABETES MELLITUS WITHOUT COMPLICATIONS Qualifiers: Diabetes mellitus type: type 2 Diabetes mellitus complication detail: with chronic kidney disease (7) HTN (hypertension) Code(s): I10 - ESSENTIAL (PRIMARY) HYPERTENSION Qualifiers: Hypertension type: essential hypertension Qualified Code(s): I10 - Essential (primary) hypertension (8) Pleural effusion Mr Owen is a pleasant 61 year old male who comes in with respiratory failure secondary to CHF. He was admitted to the hospital and supported with oxygen. Cardiology saw him and started to diurese with IV lasix. He improved significantly with diuresis. He was noted to have a pleural effusion that was unchanged from prior, pulmonary saw him and recommended outpatient thoracentesis. He is to hold his aspirin, plavix, and pletal until after the procedure. He was instructed to not restart smoking and to weigh himself daily. He understood and agreed. Currently he is safe for discharge home. 35 minutes spent in preparation of this discharge Condition: Good - Instructions Diet, Activity, Other Instructions: low salt/fat diet. Continue previous activity. Do not start smoking again. Buy a scale and weigh yourself every morning. If you gain 3lbs over your first weight, call Dr Zafar. Follow up with Dr Zafar and Dr Truong next week. Do not take your aspirin, plavix, or pletal (cilastazol) this week, restart them after your procedure on Thursday. Referrals: Kanu Truong MD [Staff Physician] - Anthony Zafar MD [Staff Physician] - Disposition: HOME - Home Medications Comprehensive Discharge Medication List: Ambulatory Orders Amlodipine Besylate [Norvasc -] 5 mg PO DAILY 06/18/15 Aspirin [Aspirin EC] 81 mg PO DAILY 06/18/15 Budesonide/Formeterol Fumarate [SYMBICORT 160/4.5mcg -] 1 inh PO DAILY 06/18/15 Cholecalciferol (Vitamin D3) [Vitamin D3] 2,000 unit PO DAILY 06/18/15 Cilostazol 50 mg PO DAILY 06/18/15 Clopidogrel Bisulfate [Clopidogrel] 75 mg PO DAILY 06/18/15 Furosemide [Lasix -] 40 mg PO DAILY 06/18/15 Insulin Detemir [Levemir Flextouch] 10 unit SQ PRN PRN 06/18/15 Lisinopril 5 mg PO DAILY 06/18/15 Metformin HCl [Glucophage] 1,000 mg PO BID 06/18/15 Simvastatin [Zocor -] 20 mg PO HS 06/18/15 Zolpidem Tartrate [Ambien] 10 mg PO HS 06/18/15 Carvedilol [Coreg -] 25 mg PO BID #60 tablet 06/20/15 Albuterol 0.083% Nebulizer Rosy [Ventolin 0.083% Nebulizer Soln -] 1 neb NEB QID PRN 02/18/16 Bupropion HCl [Wellbutrin -] 75 mg PO BID #60 tablet MDD 2 04/09/16 Oxycodone HCl/Acetaminophen [Percocet 10-325 mg Tablet] 1 each PO QID PRN #120 tablet MDD 4 06/09/16 Nicotine Patch [Nicoderm Patch -] 14 mg TD DAILY #30 patch 06/12/16
--- NOTE | 2016-07-01 13:36 | PN ---
Progress Note (short form) - Note Progress Note: PULMONARY States breathing better. Has been ambulating. Last Vital Signs Temp Pulse Resp BP Pulse Ox 98 F 76 18 126/56 98 07/01/16 10:00 07/01/16 11:08 07/01/16 10:00 07/01/16 10:00 07/01/16 11:08 Gen: NAD at rest Heart: RRR Lung: decreased breath sounds at the bases, scattered rales Abd: soft, nontender Ext: + edema CBC, BMP 07/01/16 05:47 07/01/16 05:47 Active Medications Acetaminophen (Tylenol -) 650 mg PO Q4H PRN PRN Reason: FEVER OR PAIN Last Admin: 07/01/16 09:52 Dose: 650 mg Acetaminophen (Tylenol -) 325 mg PO Q6H PRN PRN Reason: PAIN Last Admin: 06/27/16 20:10 Dose: 325 mg Amlodipine Besylate (Norvasc -) 5 mg PO DAILY [facility] Last Admin: 07/01/16 09:45 Dose: 5 mg Atorvastatin Calcium (Lipitor -) 10 mg PO HS [facility] Last Admin: 06/30/16 22:17 Dose: 10 mg Budesonide/Formoterol Fumarate (Symbicort 160/4.5mcg -) 2 puff IH BID [facility] Last Admin: 07/01/16 09:46 Dose: 2 puff Bupropion HCl (Wellbutrin -) 75 mg PO BID [facility] Last Admin: 07/01/16 09:45 Dose: 75 mg Carvedilol (Coreg -) 25 mg PO BID [facility] Last Admin: 07/01/16 09:45 Dose: 25 mg Cholecalciferol (Vitamin D3 -) 2,000 unit PO DAILY [facility] Last Admin: 07/01/16 09:45 Dose: 2,000 unit Furosemide (Lasix -) 40 mg PO DAILY [facility] Heparin Sodium (Porcine) (Heparin -) 5,000 unit SQ TID [facility] Last Admin: 07/01/16 13:09 Dose: Not Given Insulin Aspart (Novolog Vial Sliding Scale -) 1 vial SQ ACHS [facility] PRN Reason: Protocol Last Admin: 07/01/16 11:53 Dose: Not Given Lisinopril (Prinivil) 5 mg PO DAILY [facility] Last Admin: 07/01/16 09:45 Dose: 5 mg Metformin HCl (Glucophage -) 1,000 mg PO BIDAC [facility] Last Admin: 07/01/16 06:45 Dose: 1,000 mg Nicotine (Nicoderm Patch -) 14 mg TD DAILY [facility] Last Admin: 07/01/16 09:44 Dose: 14 mg Ondansetron HCl (Zofran Injection) 4 mg IVPB Q6H PRN PRN Reason: NAUSEA Oxycodone HCl (Roxicodone -) 10 mg PO Q6H PRN PRN Reason: PAIN LEVEL 6-10 Last Admin: 07/01/16 09:51 Dose: 10 mg Zolpidem Tartrate (Ambien -) 10 mg PO HS PRN PRN Reason: INSOMNIA Last Admin: 06/30/16 22:17 Dose: 10 mg A/P COPD Chronic Hypoxic Respiratory Failure Pleural Effusion CAD CHF Atrial Fibrillation CKD Smoker - continue lasix - O2 as needed - for diagnostic thoracentesis as outpt - hold antiplatelets, anticoagulation until after procedure
[2016-07-02] MEDS ORDERED: FUROSEMIDE 40 MG TABLET (FP) PO SCH (10:00)
== END 2016-07-01 13:40 | disposition home or self-care (01) | DRG 291 ==
LOC: JER 10:52 → JERBED 14:31 → J4W 16:23
PROVIDERS: ADMIT Internal Medicine; ATTEND Internal Medicine
DX: I13.0 Hypertensive heart and chronic kidney disease with heart failure and stage 1 through stage 4 chronic kidney disease, or unspecified chronic kidney disease (principal); I50.23 Acute on chronic systolic (congestive) heart failure; J96.21 Acute and chronic respiratory failure with hypoxia; I47.1 Supraventricular tachycardia; J44.1 Chronic obstructive pulmonary disease with (acute) exacerbation; E11.9 Type 2 diabetes mellitus without complications; I25.10 Atherosclerotic heart disease of native coronary artery without angina pectoris; Z95.1 Presence of aortocoronary bypass graft; F17.210 Nicotine dependence, cigarettes, uncomplicated; I48.91 Unspecified atrial fibrillation; R07.9 Chest pain, unspecified; I34.0 Nonrheumatic mitral (valve) insufficiency; E78.5 Hyperlipidemia, unspecified; D63.8 Anemia in other chronic diseases classified elsewhere; N18.3 Chronic kidney disease, stage 3 (moderate)
CPT/HCPCS: 36415; 71010-TC; 71250-TC; 80048; 80053; 82550; 83735; 83880; 84100; 84484; 85025; 85027; 93005; 93010; 93268; 94640; 97116-GP; 97161-GP; 99283-25; J1644

== ENCOUNTER 2016-07-07 09:47 | Day surgery (SDC) | payer OTHER ==
[2016-07-04 14:13] VITALS: BMI 26.0
[2016-07-07 10:41] LABS: INR 1.2 (0.82-1.09); PROTHROMBIN TIME (PATIENT) 13.2 SEC (9.98-11.88)
[2016-07-07 10:49] VITALS: TEMP 97.6
[2016-07-07 13:47] LABS: PLEURAL FLUID APPEARANCE CLOUDY; PLEURAL FLUID COLOR YELLOW; PLEURAL FLUID SOURCE PLEURAL
[2016-07-07 14:02] LABS: GLUCOSE,PLEURAL FLUID 71.149; TOTAL PROTEIN,PLEURAL FLUID 1.819
[2016-07-07 15:23] VITALS: BP 114/60; PULSE 96
[2016-07-07 17:46] LABS: PLEURAL FLUID LYMPHOCYTES 75 %; PLEURAL FLUID MACROPHAGES 2 %; PLEURAL FLUID NEUTROPHIL 8 %
--- NOTE | 2016-07-08 14:05 | PATH ---
Cytology Non-Gynecological Report Patient Name: ARTEMIO RAMIREZ [facility]. Rec. #: [id number] /Age/Gender: 1955 (Age: 61) / M Account: [id number] Location: RADIOLOGY Taken: 07/07/2016 Received: 07/07/2016 Reported: 07/08/2016 Physicians: Aba Sanchez M.D. Specimen(s) Received A: PLEURAL FLUID IN 50% ALCOHOL B: PLEURAL FLUID FRESH Clinical History Pleural effusion Final Diagnosis A,B. PLEURAL FLUID, THORACENTESIS: SATISFACTORY FOR EVALUATION. NO MALIGNANT CELLS IDENTIFIED. REACTIVE MESOTHELIAL CELLS, HISTIOCYTES AND MIXED INFLAMMATORY CELLS. Electronically Signed Dave Sanabria M.D. Gross Description A. Received is a 50 cc of opaque fluid in 50% alcohol. One cytofunnel slide and one cell block are made. B. Received is 400 cc of reddish fluid fresh. One cytofunnel slide and one cell block are made.
== END 2016-07-07 14:25 | disposition home or self-care (01) ==
LOC: JRADIR 09:47
PROVIDERS: ATTEND Internal Medicine Pulmonary Disease
PROC: 0W9B3ZZ Drainage of Left Pleural Cavity, Percutaneous Approach (ICD-10-PCS; principal; 2016-07-07)
PROC: BB4BZZZ Ultrasonography of Pleura (ICD-10-PCS; 2016-07-07)
DX: J90 Pleural effusion, not elsewhere classified (principal)
CPT/HCPCS: 32555; 36415; 71010-TC; 76942; 82042; 82150; 82310; 82945; 83615; 84157; 84311; 85610; 87070; 87075; 87102; 87116; 87205; 87206; 87210; 88108; 88305-TC; 89051

== ENCOUNTER 2016-10-04 21:40 | Inpatient (IN) | payer OTHER ==
--- NOTE | 2016-10-04 21:53 | PDOC ---
History of Present Illness - General History Source: Patient Exam Limitations: No Limitations - History of Present Illness Initial Comments: 10/04/16 23:17 The patient is a 61-year-old male with a significant past medical history of HTN , HLD, a-fib, CAD, CHF, DM, COPD, CABG x3 in 2012, and presents to the emergency department with shortness of breath since tonight. He reports he had an argument with his nephew at home and became agitated, which was followed by difficulty breathing. He states he has oxygen at home that he uses in case of emergencies. Upon interview, he states he is breathing more easily. He reports he had vomiting and diarrhea two days ago. He was seen in at a clinic for chronic back and leg pain yesterday. The patient denies chest pain, headache and dizziness. The patient denies fever , chills, abdominal pain, nausea, and constipation. The patient denies dysuria, frequency, urgency and hematuria. Allergies: codeine, gabapentin Past Surgical History: AICD, CABG Social History: current someday smoker PCP: Dr. Kanu Truong Milk Route Supervisor: Dr. Greer <Jennifer Sage - Last Filed: 10/04/16 23:17> <Isabel Clark - Last Filed: 10/06/16 04:07> - General Chief Complaint: Shortness of Breath Stated Complaint: DIFFICULTY BREATHING Time Seen by Provider: 10/04/16 21:53 Past History <Jennifer Sage - Last Filed: 10/04/16 23:17> - Past Medical History Anemia: No Asthma: No Cancer: No Cardiac Disorders: Yes (cabg, 3v 2-3 year prior,AFIB) CVA: No COPD: Yes CHF: Yes (with pleural effusion) Dementia: No Diabetes: Yes (with neuropathy) GI Disorders: No Disorders: No HTN: Yes Hypercholesterolemia: Yes Liver Disease: No Suicide Attempt (Hx): No Seizures: No Thyroid Disease: No - Surgical History Abdominal Surgery: No Appendectomy: No Cardiac Surgery: Yes (CABG x 3, implanted defib) Cholecystectomy: No Lung Surgery: No Neurologic Surgery: No Orthopedic Surgery: No - Immunization History Td Vaccination: Yes (unknown) Immunization Up to Date: Yes - Psycho/Social/Smoking Cessation Hx Anxiety: No Suicidal Ideation: No Smoking Status: Yes Smoking History: Current every day smoker Years of Tobacco Use: 40 Have you smoked in the past 12 months: Yes Number of Cigarettes Smoked Daily: 1 If you are a former smoker, when did you quit?: 06/20/16 Cigars Per Day: 0 Information on smoking cessation initiated: No 'Breaking Loose' booklet given: 07/04/16 Hx Alcohol Use: Yes (none x 2 years) Drug/Substance Use Hx: Yes (none x 1 year) Substance Use Type: Alcohol, Cocaine Hx Substance Use Treatment: Yes ([facility]) <Isabel Clark - Last Filed: 10/06/16 04:07> - Past Medical History Allergies/Adverse Reactions: Allergies Allergy/AdvReac Type Severity Reaction Status Date / Time codeine AdvReac Intermediate Vomiting Verified 10/04/16 21:50 gabapentin AdvReac Intermediate dizzy Verified 10/04/16 21:50 Home Medications: Ambulatory Orders Amlodipine Besylate [Norvasc -] 5 mg PO DAILY 06/18/15 Aspirin [Aspirin EC] 81 mg PO DAILY 06/18/15 Budesonide/Formeterol Fumarate [SYMBICORT 160/4.5mcg -] 1 inh PO DAILY 06/18/15 Cholecalciferol (Vitamin D3) [Vitamin D3] 2,000 unit PO DAILY 06/18/15 Cilostazol 50 mg PO DAILY 06/18/15 Clopidogrel Bisulfate [Clopidogrel] 75 mg PO DAILY 06/18/15 Furosemide [Lasix -] 80 mg PO DAILY 06/18/15 Insulin Detemir [Levemir Flextouch] 10 unit SQ PRN PRN 06/18/15 Lisinopril 5 mg PO DAILY 06/18/15 Metformin HCl [Glucophage] 1,000 mg PO BID 06/18/15 Simvastatin [Zocor -] 20 mg PO HS 06/18/15 Zolpidem Tartrate [Ambien] 10 mg PO HS 06/18/15 Carvedilol [Coreg -] 25 mg PO BID #60 tablet 06/20/15 Albuterol 0.083% Nebulizer Rosy [Ventolin 0.083% Nebulizer Soln -] 1 neb NEB QID PRN 02/18/16 Miscellaneous Medical Supply [Glucometer Device] 1 each TD ASDIR 30 Days Miscellaneous Medical Supply [Glucometer Test Strips #100] 1 each TD ASDIR #1 ea 09/04/16 Oxycodone HCl/Acetaminophen [Oxycodone-Acetaminophen 10325] 1 each PO QID 10/04 Review of Systems - Review of Systems Able to Perform ROS?: Yes Comments:: 10/04/16 23:17 CONSTITUTIONAL: Absent: fever, chills, diaphoresis, generalized weakness, malaise, loss of appetite HEENT: Absent: rhinorrhea, nasal congestion, throat pain, throat swelling, difficulty swallowing, mouth swelling, ear pain, eye pain, visual changes CARDIOVASCULAR: Absent: chest pain, syncope, palpitations, irregular heart rate, lightheadedness , peripheral edema RESPIRATORY: Present: (+) shortness of breath Absent: cough, dyspnea with exertion, orthopnea, wheezing, stridor, hemoptysis GASTROINTESTINAL: Absent: abdominal pain, abdominal distension, nausea, vomiting, diarrhea, constipation, melena, hematochezia GENITOURINARY: Absent: dysuria, frequency, urgency, hesitancy, hematuria, flank pain, genital pain MUSCULOSKELETAL: Absent: myalgia, arthralgia, joint swelling SKIN: Absent: rash, itching, pallor HEMATOLOGIC/IMMUNOLOGIC: Absent: easy bleeding, easy bruising, lymphadenopathy, frequent infections ENDOCRINE: Absent: unexplained weight gain, unexplained weight loss, heat intolerance, cold intolerance NEUROLOGIC: Absent: headache, focal weakness or paresthesias, dizziness, unsteady gait, seizure, mental status changes, bladder or bowel incontinence PSYCHIATRIC: Absent: anxiety, depression, suicidal or homicidal ideation, hallucinations. <Jennifer Sage - Last Filed: 10/04/16 23:17> *Physical Exam - Vital Signs Last Vital Signs Temp Pulse Resp BP Pulse Ox 133 H 20 136/88 99 10/04/16 21:47 10/04/16 21:47 10/04/16 21:47 10/04/16 21:47 - Physical Exam Comments: 10/04/16 23:18 GENERAL: Well developed, well nourished. Awake and alert. No acute distress. HEENT: Normocephalic, atraumatic. PERRLA, EOMI. No conjunctival pallor. Sclera are non- icteric. Moist mucous membranes. Oropharynx is clear. NECK: Supple. Full ROM. No JVD. Carotid pulses 2+ and symmetric, without bruits. No thyromegaly. No lymphadenopathy. CARDIOVASCULAR: (+) Heart sounds difficult to auscultate secondary to mechanical aortic valve. Regular rate and rhythm. No murmurs, rubs, or gallops. Distal pulses are 2+ and symmetric. PULMONARY: (+) Mild crackles of the bilateral lower bases. No wheezing, rales or rhonchi. ABDOMINAL: (+) Enlarged abdomen. Soft. Non-tender. Non-distended. No rebound or guarding. No organomegaly. Normoactive bowel sounds. MUSCULOSKELETAL Normal range of motion at all joints. No bony deformities or tenderness. No CVA tenderness. EXTREMITIES: No cyanosis. No clubbing. No edema. No calf tenderness. SKIN: Warm and dry. Normal capillary refill. No rashes. No jaundice. NEUROLOGICAL: Alert, awake, appropriate. Cranial nerves 2-12 intact. No deficits to light touch and temperature in face, upper extremities and lower extremities. No motor deficits in the in face, upper extremities and lower extremities. Normoreflexic in the upper and lower extremities. Normal speech. Toes are down- going bilaterally. Gait is normal without ataxia. PSYCHIATRIC: Cooperative. Good eye contact. Appropriate mood and affect. <Jennifer Sage - Last Filed: 10/04/16 23:17> - Vital Signs Last Vital Signs Temp Pulse Resp BP Pulse Ox 133 H 20 136/88 99 10/04/16 21:47 10/04/16 21:47 10/04/16 21:47 10/04/16 21:47 <Isabel Clark - Last Filed: 10/06/16 04:07> ED Treatment Course - LABORATORY CBC & Chemistry Diagram: 10/04/16 22:45 10/04/16 22:45 <Jennifer Sage - Last Filed: 10/04/16 23:17> - LABORATORY CBC & Chemistry Diagram: 10/04/16 22:45 10/05/16 08:22 <Isabel Clark - Last Filed: 10/06/16 04:07> Medical Decision Making - Medical Decision Making 10/04/16 21:56 Rx Written Rx Dispensed Drug Quantity Days Supply Prescriber Name 10/03/2016 10/03/2016 oxycodone-acetaminophen 10-325 mg tab 120 30 Zeny Connor NP, PHD 09/03/2016 10/02/2016 zolpidem tartrate 10 mg tablet 30 30 AlexiKanu gutierrez MD 09/03/2016 09/04/2016 zolpidem tartrate 10 mg tablet 30 30 AlexiKanu gutierrez MD 09/04/2016 09/04/2016 oxycodone-acetaminophen 10-325 mg tab 120 30 Zeny Connor NP, PHD 08/05/2016 08/05/2016 oxycodone-acetaminophen 10-325 mg tab 120 30 Zeny Connor NP, PHD 06/04/2016 08/04/2016 zolpidem tartrate 10 mg tablet 30 30 AlexiKanu MD 07/08/2016 07/08/2016 oxycodone-acetaminophen 10-325 mg tab 120 30 Zeny Connor NP, PHD 06/04/2016 07/07/2016 zolpidem tartrate 10 mg tablet 30 30 AlexiKanu MD 06/09/2016 06/09/2016 oxycodone-acetaminophen 10-325 mg tab 120 30 Zeny Connor NP, PHD 06/04/2016 06/05/2016 zolpidem tartrate 10 mg tablet 30 30 AlexiKanu MD 05/12/2016 05/12/2016 oxycodone-acetaminophen 10-325 mg tab 120 30 Zeny Connor NP, PHD 05/08/2016 05/09/2016 zolpidem tartrate 10 mg tablet 30 30 AlexiKanu MD 04/08/2016 04/09/2016 zolpidem tartrate 10 mg tablet 30 30 BowieAure thompson MD 04/09/2016 04/09/2016 oxycodone-acetaminophen 10-325 mg tab 120 30 Zeny Connor NP, PHD 03/11/2016 03/18/2016 oxycodone-acetaminophen 10-325 mg tab 120 30 Zeny Connor NP, PHD 01/09/2016 03/08/2016 zolpidem tartrate 10 mg tablet 30 30 AelxiKanu gutierrez MD 02/11/2016 02/12/2016 oxycodone-acetaminophen 10-325 mg tab 120 30 Zeny Connor NP, PHD 01/09/2016 02/07/2016 zolpidem tartrate 10 mg tablet 30 30 AlexiKanu gtuierrez MD 01/09/2016 01/11/2016 zolpidem tartrate 10 mg tablet 30 30 Kanu Truong MD 01/11/2016 01/11/2016 oxycodone-acetaminophen 10-325 mg tab 120 30 Zeny Connor NP, PHD 12/12/2015 12/12/2015 oxycodone-acetaminophen 10-325 mg tab 120 30 Zeny Connor NP, PHD 10/03/2015 12/04/2015 zolpidem tartrate 10 mg tablet 30 30 Kanu Truong MD 11/13/2015 11/13/2015 oxycodone-acetaminophen 10-325 mg tab 120 30 Zeny Connor NP, PHD 10/03/2015 11/07/2015 zolpidem tartrate 10 mg tablet 30 30 Kanu Truong MD 10/30/2015 10/30/2015 oxycodone-acetaminophen 10-325 mg tab 60 15 Zeny Connor NP, PHD 10/03/2015 10/09/2015 zolpidem tartrate 10 mg tablet 30 30 Kanu Truong MD 10/09/2015 10/09/2015 oxycodone-acetaminophen 10-325 mg tab 84 21 Zeny Connor NP, PHD 10/06/16 04:02 Pt came to the ER for dyspnea and chest pain. He states that he is having a hard time breathing, particularly after he had an argument with his nephew. Pt has multiple medical comorbid problems, CAD, CHF, HTN, DM, and AICD. Pt is afebrile and he has no cough, and although he appears well at rest, his labs are markedly abdnormal, and we will admit for cardiac workup and monitoring. He will be diuresed, as his BNP is elevated, and BP is elevated. <Isabel Clark - Last Filed: 10/06/16 04:07> *DC/Admit/Observation/Transfer - Attestations Scribe Attestion: 10/04/16 23:18 Documentation prepared by Jennifer Sage, acting as medical advisor for Isabel Clark MD. <Jennifer Sage - Last Filed: 10/04/16 23:17> - Discharge Dispostion Admit: Yes <Isabel Clark - Last Filed: 10/06/16 04:07> Diagnosis at time of Disposition: CHF (congestive heart failure) - Referrals
[2016-10-04] MEDS ORDERED: amLODIPine BESYLATE 5 MG TABLET (FP) PO ONE (22:49)
[2016-10-04 23:02] LABS: BASOPHIL 0.6 % (0-2.0); EOSINOPHIL 2.4 % (0-4.5); MCH 30.3 pg (25.7-33.7); MCHC 33.9 g/dl (32.0-35.9); MEAN CELL VOLUME 89.6 fl (80-96); NEUTROPHILS 83.1 % (42.8-82.8); PLATELET COUNT 165 K/MM3 (134-434); WHITE BLOOD COUNT 9.1 K/mm3 (4.0-10.0)
[2016-10-04] MEDS ORDERED: amLODIPine BESYLATE 5 MG TABLET (FP) ONE (23:07)
[2016-10-04 23:18] LABS: INR 1.28 (0.82-1.09); PROTHROMBIN TIME (PATIENT) 14.2 SEC (9.98-11.88)
[2016-10-04 23:50] LABS: ALBUMIN 3.2 g/dl (3.4-5.0); ALK PHOS 112 U/L (45-117); CALCIUM 8.3 mg/dL (8.5-10.1); CO2 26 mmol/L (21-32); CREATININE 1.9 mg/dL (0.7-1.3); GLUCOSE,RANDOM 141 mg/dL (74-106); SGOT/AST 16 U/L (15-37); SGPT/ALT 10 U/L (12-78); TOT PROT 6.6 g/dl (6.4-8.2)
[2016-10-04 23:57] LABS: ANION GAP 13 (8-16); BILIRUBIN,TOTAL 0.5 mg/dL (0.2-1.0); TROPONIN I 0.06 ng/ml (0.00-0.05)
[2016-10-05] MEDS ORDERED: FUROSEMIDE 40 MG/4 ML INJECTABLE VIAL IVPUSH ONE (00:24)
[2016-10-05] MEDS ORDERED: FUROSEMIDE 40 MG/4 ML INJECTABLE VIAL ONE (00:56)
[2016-10-05] MEDS ORDERED: oxyCODONE HCL 5 MG TABLET PO PRN (05:54)
[2016-10-05] MEDS ORDERED: ACETAMINOPHEN 325 MG TABLET (FP) PO PRN ×2 (05:54→15:44)
[2016-10-05] MEDS ORDERED: ZOLPIDEM TARTRATE 5 MG TABLET PO PRN (05:55)
[2016-10-05] MEDS ORDERED: INSULIN DETEMIR 100 UNITS/ML MDV SQ PRN (05:58)
[2016-10-05] MEDS ORDERED: ALBUTEROL SO4 0.083% IH SOL 2.5 MG/3 ML VIAL.NEB. NEB PRN (06:04)
[2016-10-05 07:15] VITALS: BMI 26.6
[2016-10-05] MEDS: metFORMIN HCL 500 MG TABLET (FP) PO SCH ×2 (07:58→17:35)
[2016-10-05 09:04] LABS: ANION GAP 9 (8-16); CALCIUM 8.3 mg/dL (8.5-10.1); CO2 30 mmol/L (21-32); CREATININE 1.7 mg/dL (0.7-1.3); GLUCOSE,RANDOM 109 mg/dL (74-106)
[2016-10-05] MEDS ORDERED: PT OWN MED DRAWER 7, Y5N ONE (10:09)
[2016-10-05] MEDS: amLODIPine BESYLATE 5 MG TABLET (FP) PO SCH (10:10)
[2016-10-05] MEDS: CHOLECALCIFEROL (VITAMIN D3) 1,000 UNIT TABLET (FP) PO SCH (10:10)
[2016-10-05] MEDS: BUDESONIDE/FORMETEROL FUMARATE 160/4.5 mcg INHALER IH SCH (10:10)
[2016-10-05] MEDS: CLOPIDOGREL BISULFATE 75 MG TABLET (FP) PO SCH (10:10)
[2016-10-05] MEDS: LISINOPRIL 5 MG TABLET (FP) PO SCH (10:10)
[2016-10-05] MEDS: CILOSTAZOL 50 MG TABLET (FP) PO SCH (10:10)
[2016-10-05] MEDS: FUROSEMIDE 100 MG/10 ML INJECTABLE VIAL IVPUSH SCH (10:10)
[2016-10-05] MEDS: CARVEDILOL 25 MG TABLET (FP) PO SCH ×2 (10:10→21:48)
[2016-10-05] MEDS: ASPIRIN COATED 81 MG TABLET.EC PO SCH (10:10)
[2016-10-05] MEDS: oxyCODONE HCL 5 MG TABLET PO PRN ×2 (15:56→21:48)
--- NOTE | 2016-10-05 18:25 | HP ---
DATE OF ADMISSION: 10/05/2016 The patient is a 61-year-old male who presented to the emergency room complaining of shortness of breath of a day's duration. Patient had gone on a trip with his family members. He had an argument with his nephew and subsequently had increasing shortness of breath and brought himself to the emergency room. He wants to stay over, as he does not want to go back home and get into a confrontation with his nephew and develop shortness of breath again. He denies any chest pain or palpitation. Past medical history is significant for COPD, congestive heart failure, chronic pain syndrome, chronic renal insufficiency, anemia due to chronic illness, diabetes mellitus, hypertension, implanted defibrillator, nicotine addiction, peripheral vascular disease, pulmonary hypertension, coronary artery disease with coronary artery bypass graft, atrial tachycardia, elevated D-dimer, hyperkalemia, hypoxemia, pneumonia. His present medications at home include Tylenol on a p.r.n. basis, albuterol, amlodipine 5 mg daily, aspirin 81 mg p.o. daily, Lipitor 10 mg p.o. daily, Symbicort 160 twice a day, Coreg 25 mg twice a day, Vitamin D3 2000 units daily, Pletal 50 mg daily, Plavix 75 mg daily, Lasix 80 mg p.o. daily, metformin 1 g twice a day, lisinopril 5 mg daily, Levemir 10 units daily, Ambien 10 mg daily, Percocet 10 mg on a p.r.n. basis. ALLERGIES: CODEINE and GABAPENTIN. SOCIAL HISTORY: He is a . He has 2 children. He quit smoking 3 days ago. Prior to that, patient smoked about a pack of cigarettes daily. He drinks occasionally. FAMILY HISTORY: Significant for 5 brothers and 2 sisters. His mother had coronary artery disease and myocardial infarction. Review of systems is significant for multiple complaints of chronic pain, on and off shortness of breath. He denies any abdominal pain, loss of weight, loss of appetite. PHYSICAL EXAMINATION: Vital Signs: He has a blood pressure of 130/65, pulse rate of 78, respiratory rate of 20, temperature 97.8. Head and Neck: He is not pale, not icteric. JVD is absent. Thyroid and carotids appear normal. Heart: Regular rhythm. No murmurs. Lungs: Vesicular breathing here. Abdomen: Benign. Extremities: No edema. Basic metabolic profile has a BUN of 41, creatinine of 1.7, otherwise is within normal limits. PT/INR is 1.28. She has a white count of 9000 with a hemoglobin of 8.6 and hematocrit 26. Chest x-ray has no acute changes, has chronic left lower lobe scarring. BNP was elevated at 23,500. ASSESSMENT AND PLAN: 1. Shortness of breath, etiology of which is most likely anxiety from a fight but patient has already been admitted and now does not want to go home. I doubt there is congestive heart failure on clinical examination. Chest x-ray does not show congestive heart failure. But given elevated BNP and to take advantage of his hospital stay, would change the Lasix to IV, get public health social worker, and plan discharge [facility]. 2. Hypertension. 3. Hyperlipidemia. 4. Coronary artery disease. 5. Nicotine addiction. 6. Chronic pain syndrome. 7. Anemia of chronic illness. 8. Renal insufficiency. Continue present medications. KATH WORRELL M.D. [id number]
[2016-10-05] MEDS: NICOTINE 21 MG/24 HOURS TOPICAL PATCH TD SCH (20:00)
[2016-10-05] MEDS ORDERED: ATORVASTATIN CA 10 MG TABLET (FP) PO SCH (22:00)
[2016-10-06] MEDS: metFORMIN HCL 500 MG TABLET (FP) PO SCH (06:27)
[2016-10-06] MEDS: oxyCODONE HCL 5 MG TABLET PO PRN (06:27)
[2016-10-06] MEDS ORDERED: PT OWN MED DRAWER 7, Y5N ONE (09:09)
[2016-10-06] MEDS: ASPIRIN COATED 81 MG TABLET.EC PO SCH (09:18)
[2016-10-06] MEDS: CARVEDILOL 25 MG TABLET (FP) PO SCH (09:18)
[2016-10-06] MEDS: CLOPIDOGREL BISULFATE 75 MG TABLET (FP) PO SCH (09:19)
[2016-10-06] MEDS: amLODIPine BESYLATE 5 MG TABLET (FP) PO SCH (09:19)
[2016-10-06] MEDS: LISINOPRIL 5 MG TABLET (FP) PO SCH (09:20)
[2016-10-06] MEDS: CILOSTAZOL 50 MG TABLET (FP) PO SCH (09:20)
[2016-10-06] MEDS: CHOLECALCIFEROL (VITAMIN D3) 1,000 UNIT TABLET (FP) PO SCH (09:21)
[2016-10-06] MEDS: FUROSEMIDE 100 MG/10 ML INJECTABLE VIAL IVPUSH SCH (09:21)
[2016-10-06] MEDS: BUDESONIDE/FORMETEROL FUMARATE 160/4.5 mcg INHALER IH SCH (09:21)
[2016-10-06] MEDS: NICOTINE 21 MG/24 HOURS TOPICAL PATCH TD SCH (09:25)
[2016-10-06 10:35] VITALS: PULSE 99
--- NOTE | 2016-10-06 10:45 | EKG ---
Test Reason : Blood Pressure : / mmHG Vent. Rate : 108 BPM Atrial Rate : 127 BPM P-R Int : 000 ms QRS Dur : 132 ms QT Int : 284 ms P-R-T Axes : 000 -44 128 degrees QTc Int : 380 ms ATRIAL FIBRILLATION WITH RAPID VENTRICULAR RESPONSE WITH PREMATURE VENTRICULAR OR ABERRANTLY CONDUCTED COMPLEXES LEFT AXIS DEVIATION LEFT VENTRICULAR HYPERTROPHY WITH QRS WIDENING INFERIOR INFARCT , AGE UNDETERMINED T WAVE ABNORMALITY, CONSIDER ANTERIOR ISCHEMIA ABNORMAL ECG WHEN COMPARED WITH ECG OF 24-JUN-2016 10:59, VENT. RATE HAS INCREASED Confirmed by ODELL ALARCON MD ([id number]) on 10/06/2016 10:45:23 AM Referred By: Confirmed By:ODELL ALARCON MD
--- NOTE | 2016-10-06 11:20 | DS ---
Physical Examination Vital Signs: Vital Signs Temperature 97.9 F 10/06/16 05:55 Pulse Rate 99 H 10/06/16 10:34 Respiratory Rate 20 10/06/16 05:55 Blood Pressure 112/68 10/06/16 05:55 O2 Sat by Pulse Oximetry (%) 99 10/06/16 10:34 Constitutional: Yes: Well Nourished, No Distress, Calm Cardiovascular: Yes: Regular Rate and Rhythm. No: Gallop, Murmur, Rub Respiratory: Yes: Regular, CTA Bilaterally, On Nasal O2. No: Rales, Rhonchi, Wheezes Gastrointestinal: Yes: Normal Bowel Sounds, Soft. No: Distention, Tenderness Extremities: Yes: WNL Edema: No Labs: CBC, BMP 10/05/16 08:22 Discharge Summary Reason For Visit: CHF Current Active Problems CHF (congestive heart failure) (Chronic) Hospital Course: Mr Owen is a pleasant 61 year old gentleman who came in with shortness of breath. It occurred after a family argument, but he was found to have an elevated BNP so was admitted for CHF. He was diuresed with IV lasix. He is improved and is back to baseline. He is safe for discharge home. He is instructed to follow up with Dr Truong this week to discuss possible anxiety. He can continue on his home medication regimen without change. 31 minutes spent in preparation of this discharge Condition: Good - Instructions Diet, Activity, Other Instructions: resume previous diet and activity Referrals: Kanu Truong MD [Primary Care Provider] - Pio Greer MD [Staff Physician] - Disposition: HOME - Home Medications Comprehensive Discharge Medication List: Ambulatory Orders Amlodipine Besylate [Norvasc -] 5 mg PO DAILY 06/18/15 Aspirin [Aspirin EC] 81 mg PO DAILY 06/18/15 Budesonide/Formeterol Fumarate [SYMBICORT 160/4.5mcg -] 1 inh PO DAILY 06/18/15 Cholecalciferol (Vitamin D3) [Vitamin D3] 2,000 unit PO DAILY 06/18/15 Cilostazol 50 mg PO DAILY 06/18/15 Clopidogrel Bisulfate [Clopidogrel] 75 mg PO DAILY 06/18/15 Furosemide [Lasix -] 80 mg PO DAILY 06/18/15 Insulin Detemir [Levemir Flextouch] 10 unit SQ PRN PRN 06/18/15 Lisinopril 5 mg PO DAILY 06/18/15 Metformin HCl [Glucophage] 1,000 mg PO BID 06/18/15 Simvastatin [Zocor -] 20 mg PO HS 06/18/15 Zolpidem Tartrate [Ambien] 10 mg PO HS 06/18/15 Carvedilol [Coreg -] 25 mg PO BID #60 tablet 06/20/15 Albuterol 0.083% Nebulizer Rosy [Ventolin 0.083% Nebulizer Soln -] 1 neb NEB QID PRN 02/18/16 Miscellaneous Medical Supply [Glucometer Device] 1 each TD ASDIR 30 Days Miscellaneous Medical Supply [Glucometer Test Strips #100] 1 each TD ASDIR #1 ea 09/04/16 Oxycodone HCl/Acetaminophen [Oxycodone-Acetaminophen 10-325] 1 each PO QID 10/04
[2016-10-06 11:58] VITALS: BP 157/66; TEMP 97.8
== END 2016-10-06 13:26 | disposition home or self-care (01) | DRG 293 ==
LOC: JER 21:40 → JERBED 10-05 01:56 → J8W 10-05 05:44
PROVIDERS: ADMIT Internal Medicine Geriatric Medicine; ATTEND Internal Medicine Geriatric Medicine
DX: I11.0 Hypertensive heart disease with heart failure (principal); I25.10 Atherosclerotic heart disease of native coronary artery without angina pectoris; E78.5 Hyperlipidemia, unspecified; I48.91 Unspecified atrial fibrillation; J44.9 Chronic obstructive pulmonary disease, unspecified; E11.40 Type 2 diabetes mellitus with diabetic neuropathy, unspecified; Z79.4 Long term (current) use of insulin; Z95.1 Presence of aortocoronary bypass graft; Z72.0 Tobacco use; I50.22 Chronic systolic (congestive) heart failure; N28.9 Disorder of kidney and ureter, unspecified
CPT/HCPCS: 36415; 71020-TC; 80048; 80053; 82550; 83880; 84484; 85025; 85610; 93005; 93010; 99285-25; G0463-25

== ENCOUNTER 2016-12-03 15:53 | Inpatient (IN) | payer OTHER ==
--- NOTE | 2016-12-03 16:32 | PDOC ---
History of Present Illness - History of Present Illness Initial Comments: 12/03/16 17:05 The patient is a 61 year old male, with a significant past medical history of atrial fibrillation, Hypertension, hypercholesterolemia, and chronic lower back pain, who was sent by his PCP for tachycardia and atraumatic left-sided flank pain for two days. Patient describes the pain as intermittent,sharp, and non- radiating. He rates his current pain a 10 out of 10. He states that he has never experienced this type of pain before. He admits to associated symptoms of nausea but denies vomiting. He also admits to 1 episode of diarrhea last night. He admits to subjective fever but denies chills. He denies history of kidney stones. He denies any recent headache or dizziness. He denies any recent constipation. He denies any or shortness of breath. He denies any recent dysuria, urgency or hematuria. Admits to frequency but unchanged from baseline. Cardiology: Anthony Zafar MD Past surgical history: None reported. Social History: Current everyday smoker (pack every other day) Denies EtOH use and recreational drug use. Primary Care Physician: Dr. Truong <Kat Braxton - Last Filed: 12/03/16 17:32> <Lopez Joyner - Last Filed: 12/03/16 21:33> - General Chief Complaint: Irregular Heart Beat Stated Complaint: IRREGULAR HEART BEAT, LT SIDE PAIN (PCP SENT) Time Seen by Provider: 12/03/16 16:32 Past History <Kat Braxton - Last Filed: 12/03/16 17:32> - Past Medical History Anemia: No Asthma: No Cancer: No Cardiac Disorders: Yes (cabg, 3v 2-3 year prior,AFIB) CVA: No COPD: Yes CHF: Yes (with pleural effusion) Dementia: No Diabetes: Yes (with neuropathy) GI Disorders: No Disorders: No HTN: Yes Hypercholesterolemia: Yes Liver Disease: No Suicide Attempt (Hx): No Seizures: No Thyroid Disease: No - Surgical History Abdominal Surgery: No Appendectomy: No Cardiac Surgery: Yes (CABG x 3, implanted defib) Cholecystectomy: No Lung Surgery: No Neurologic Surgery: No Orthopedic Surgery: No - Immunization History Td Vaccination: Yes (unknown) Immunization Up to Date: Yes - Psycho/Social/Smoking Cessation Hx Anxiety: No Suicidal Ideation: No Smoking Status: Yes Smoking History: Current every day smoker Years of Tobacco Use: 40 Have you smoked in the past 12 months: Yes Number of Cigarettes Smoked Daily: 6 If you are a former smoker, when did you quit?: 06/20/16 Cigars Per Day: 0 Information on smoking cessation initiated: No 'Breaking Loose' booklet given: 07/04/16 Hx Alcohol Use: No Drug/Substance Use Hx: No Substance Use Type: None Hx Substance Use Treatment: Yes (DETOX NEW FOCUS) <Lopez Joyner - Last Filed: 12/03/16 21:33> - Past Medical History Allergies/Adverse Reactions: Allergies Allergy/AdvReac Type Severity Reaction Status Date / Time codeine AdvReac Intermediate Vomiting Verified 12/03/16 16:04 gabapentin AdvReac Intermediate dizzy Verified 12/03/16 16:04 Home Medications: Ambulatory Orders Amlodipine Besylate [Norvasc -] 5 mg PO DAILY 06/18/15 Aspirin [Aspirin EC] 81 mg PO DAILY 06/18/15 Budesonide/Formeterol Fumarate [SYMBICORT 160/4.5mcg -] 1 inh PO DAILY 06/18/15 Cholecalciferol (Vitamin D3) [Vitamin D3] 2,000 unit PO DAILY 06/18/15 Cilostazol 50 mg PO DAILY 06/18/15 Clopidogrel Bisulfate [Clopidogrel] 75 mg PO DAILY 06/18/15 Furosemide [Lasix -] 40 mg PO DAILY 06/18/15 Insulin Detemir [Levemir Flextouch] 10 unit SQ PRN PRN 06/18/15 Lisinopril 5 mg PO DAILY 06/18/15 Metformin HCl [Glucophage] 1,000 mg PO BID 06/18/15 Simvastatin [Zocor -] 20 mg PO HS 06/18/15 Zolpidem Tartrate [Ambien] 10 mg PO HS 06/18/15 Carvedilol [Coreg -] 25 mg PO BID #60 tablet 06/20/15 Albuterol 0.083% Nebulizer Rosy [Ventolin 0.083% Nebulizer Soln -] 1 neb NEB QID PRN 02/18/16 Miscellaneous Medical Supply [Glucometer Device] 1 each TD ASDIR 30 Days Miscellaneous Medical Supply [Glucometer Test Strips #100] 1 each TD ASDIR #1 ea 09/04/16 Oxycodone HCl/Acetaminophen [Oxycodone-Acetaminophen 10-325] 1 each PO QID #120 tablet MDD 4 12/03/16 Review of Systems - Review of Systems Able to Perform ROS?: Yes Comments:: 12/03/16 17:07 CONSTITUTIONAL: +fever, no chills, no fatigue EYES: No visual changes ENT: No ear pain, no sore throat CARDIOVASCULAR: No palpitations. No chest pain. RESPIRATORY: No cough, no SOB GI: +diarrhea + nausea. No abdominal pain, no vomiting, no constipation. GENITOURINARY: No dysuria, no frequency, no hematuria MUSCULOSKELETAL: + back pain, no joint pain, no myalgias SKIN: No rash NEURO: No headache <Kat Braxton - Last Filed: 12/03/16 17:32> *Physical Exam - Vital Signs Last Vital Signs Temp Pulse Resp BP Pulse Ox 97.6 F 133 H 20 124/73 99 12/03/16 15:55 12/03/16 15:55 12/03/16 15:55 12/03/16 15:55 12/03/16 15:55 - Physical Exam Comments: 12/03/16 17:07 CONSTITUTIONAL: Well-appearing; well-nourished; in no apparent distress HEAD: Normocephalic; atraumatic EYES: PERRL; EOM intact ENMT: External appears normal; normal oropharynx NECK: Supple; non-tender; no cervical lymphadenopathy CARD: Normal S1, S2; no murmurs, rubs, or gallops RESP: Normal chest excursion with respiration; breath sounds clear and equal bilaterally; no wheezes, rhonchi, or rales BACK: 10th rib mid-scapula line with point tenderness. ABD: Large ventral hernia, easily reducible. Soft, no palpable organomegaly. EXT:; Non-tender to palpation; distal pulses intact SKIN: Warm, dry, no rash NEURO: He ambulates with a slight limp. No focal neurological deficiencies. <Kat Braxton - Last Filed: 12/03/16 17:32> - Vital Signs Last Vital Signs Temp Pulse Resp BP Pulse Ox 97.6 F 133 H 20 124/73 99 12/03/16 15:55 12/03/16 15:55 12/03/16 15:55 12/03/16 15:55 12/03/16 15:55 <Lopez Joyner - Last Filed: 12/03/16 21:33> Heart Score/ECG Review - ECG Impressions Comment:: 12/03/16 17:08 EKG interpretation: Afib with RVR . Left axis deviation LVH Intraventricular conduction delay. Unchanged from previous. <Kat Braxton - Last Filed: 12/03/16 17:32> ED Treatment Course - LABORATORY CBC & Chemistry Diagram: 12/03/16 16:50 12/03/16 16:50 - ADDITIONAL ORDERS Additional order review: 12/03/16 16:50 RBC 3.09 L MCV 92.5 MCHC 34.9 RDW 15.4 MPV 8.3 Neutrophils % 76.6 Lymphocytes % 10.6 D Monocytes % 8.4 Eosinophils % 3.4 Basophils % 1.0 - Medications Given in the ED: ED Medications Discontinued Medications Generic Name Dose Route Start Last Admin Trade Name Freq PRN Reason Stop Dose Admin Oxycodone/Acetaminophen 2 combo 12/03/16 16:43 12/03/16 17:00 Percocet 5/325 - PO 12/03/16 16:44 2 combo ONCE ONE Administration <Kat Braxton - Last Filed: 12/03/16 17:32> - LABORATORY CBC & Chemistry Diagram: 12/03/16 16:50 12/03/16 16:50 <Lopez Joyner - Last Filed: 12/03/16 21:33> Medical Decision Making - Medical Decision Making 12/03/16 21:13 Patient is 61-year-old male with history of CHF, status post AICD placement, CAD (status post CABG), hypertension, end-stage renal disease on hemodialysis presents with atraumatic point tenderness to the left posterior rib and worsening renal function consistent with acute on chronic renal insufficiency likely related to the diuresis with Lasix. EKG reveals atrial fibrillation with a heart rate of 113 that evidence of acute ischemia; chest x-ray reveals cardiomegaly without evidence of effusion or infiltrate. <Lopez Joyner - Last Filed: 12/03/16 21:33> *DC/Admit/Observation/Transfer - Attestations Scribe Attestion: 12/03/16 17:09 Documentation prepared by Kat Braxton, acting as medical laboratory manager for Lopez Joyner MD. <Kat Braxton - Last Filed: 12/03/16 17:32> - Discharge Dispostion Admit: Yes - Attestations Physician Attestion: 12/03/16 21:13 The documentation was prepared by the scribe under my direct supervision. I have reviewed the documentation which correctly represents the findings, medical decision-making and critical action taken by me. <Lopez Joyner - Last Filed: 12/03/16 21:33> Diagnosis at time of Disposition: Acute on chronic renal insufficiency, Rib pain on left side - Referrals Referrals: Kanu Truong MD [Primary Care Provider] -
[2016-12-03] MEDS ORDERED: KETOROLAC TROMETHAMINE 30 MG/1 ML VIAL IVPUSH ONE (16:43)
[2016-12-03 17:00] LABS: EOSINOPHIL 3.4 % (0-4.5); MCH 32.3 pg (25.7-33.7); MCHC 34.9 g/dl (32.0-35.9); MEAN CELL VOLUME 92.5 fl (80-96); MEAN PLT VOLUME 8.3 fl (7.5-11.1); NEUTROPHILS 76.6 % (42.8-82.8); PLATELET COUNT 186 K/MM3 (134-434); RDW 15.4 % (11.9-15.9); WHITE BLOOD COUNT 10.2 K/mm3 (4.0-10.0)
[2016-12-03 17:24] LABS: ALBUMIN 3.6 g/dl (3.4-5.0); ANION GAP 9 (8-16); BILIRUBIN,TOTAL 0.3 mg/dL (0.2-1.0); CO2 33 mmol/L (21-32); CREATININE 2.8 mg/dL (0.7-1.3); GLUCOSE,RANDOM 118 mg/dL (74-106); SGOT/AST 8 U/L (15-37); SGPT/ALT 9 U/L (12-78); TOT PROT 7.3 g/dl (6.4-8.2)
[2016-12-03 17:25] LABS: ALK PHOS 85 U/L (45-117)
[2016-12-03] MEDS ORDERED: DEXTROSE 5%-0.45% SALINE 1,000 ML IV SCH (19:00)
[2016-12-03 19:31] LABS: URINE APPEARANCE CLEAR; URINE BILIRUBIN NEGATIVE (NEGATIVE); URINE BLOOD 1+ (NEGATIVE); URINE COLOR YELLOW; URINE GLUCOSE (UA) NEGATIVE (NEGATIVE); URINE KETONE NEGATIVE (NEGATIVE); URINE LEUK ESTERASE NEGATIVE (NEGATIVE); URINE NITRITE NEGATIVE (NEGATIVE); URINE UROBILINOGEN NEGATIVE mg/dL (0.2-1.0)
[2016-12-03 19:46] LABS: URINE PROTEIN 1+ (NEGATIVE)
[2016-12-03 19:51] LABS: URINE MUCUS RARE; URINE RBC <1 /hpf (0-3); URINE WBC 1 /hpf (3-5)
[2016-12-03] MEDS ORDERED: ALBUTEROL SO4 0.083% IH SOL 2.5 MG/3 ML VIAL.NEB. NEB PRN (23:22)
[2016-12-03] MEDS ORDERED: SODIUM CHLORIDE 500 ML IV SCH (23:30)
[2016-12-03] MEDS: INSULIN SLIDING SCALE (NOVOLOG) 1 VIAL SQ SCH (23:30)
[2016-12-03 23:43] VITALS: BMI 25.4
[2016-12-04] MEDS: ACETAMINOPHEN 325 MG TABLET (FP) PO PRN ×4 (00:05→20:54)
[2016-12-04] MEDS: oxyCODONE HCL 5 MG TABLET PO PRN ×4 (00:05→20:51)
[2016-12-04] MEDS: ZOLPIDEM TARTRATE 5 MG TABLET PO PRN ×2 (00:06→21:01)
--- NOTE | 2016-12-04 00:13 | HP ---
CHIEF COMPLAINT: L flank pain PCP: Dr. Truong HISTORY OF PRESENT ILLNESS: 61 y.o. M with pmh of cad s/p cabg 2-3 years ago, A fib, CHF, DM, HTN, HLD presenting with 2 day hx of left flank pain. Patient went to pain doctor today and was found to be tachycardic so he was sent to the ED. Patient states pain is intermittent, sharp, nonradiating, and 10/10. He took a percocet, which helped. He has never had this pain before and he has no history of kidney stones. Patient endorses mild nausea and diarrhea x2 days. He denies fever, chills, vomiting, dysuria, hematuria, urinary urgency, urinary frequency. He denies trauma, headache, dizziness, or sob. ER course was notable for: (1) BUN 58, cr 2.8 (baseline 1.3-1.5) (2) Renal U/s negative (3) UA negative Recent Travel: Denies PAST MEDICAL HISTORY: cad s/p cabg 2-3 years ago, A fib, CHF, DM, HTN, HLD PAST SURGICAL HISTORY: Cabg 2-3 yrs prior Social History: Smokin/2 ppd x >30 years Alcohol: denies Drugs: denies Family History: No hx of kidney stones in family Allergies codeine Adverse Reaction (Intermediate, Verified 12/03/16 16:04) Vomiting gabapentin Adverse Reaction (Intermediate, Verified 12/03/16 16:04) dizzy HOME MEDICATIONS: Home Medications Medication Instructions Recorded Amlodipine Besylate [Norvasc -] 5 mg PO DAILY 06/18/15 Aspirin [Aspirin EC] 81 mg PO DAILY 06/18/15 Budesonide/Formeterol Fumarate 1 inh PO DAILY 06/18/15 [SYMBICORT 160/4.5mcg -] Cholecalciferol (Vitamin D3) 2,000 unit PO DAILY 06/18/15 [Vitamin D3] Cilostazol 50 mg PO DAILY 06/18/15 Clopidogrel Bisulfate [Clopidogrel] 75 mg PO DAILY 06/18/15 Furosemide [Lasix -] 40 mg PO DAILY 06/18/15 Insulin Detemir [Levemir Flextouch] 10 unit SQ PRN PRN 06/18/15 Lisinopril 5 mg PO DAILY 06/18/15 Metformin HCl [Glucophage] 1,000 mg PO BID 06/18/15 Simvastatin [Zocor -] 20 mg PO HS 06/18/15 Zolpidem Tartrate [Ambien] 10 mg PO HS 06/18/15 Carvedilol [Coreg -] 25 mg PO BID #60 tablet 06/20/15 Albuterol 0.083% Nebulizer Rosy 1 neb NEB QID PRN 02/18/16 [Ventolin 0.083% Nebulizer Soln -] Miscellaneous Medical Supply 1 each TD ASDIR 30 Days 09/04/16 [Glucometer Device] Miscellaneous Medical Supply 1 each TD ASDIR #1 ea 09/04/16 [Glucometer Test Strips #100] Oxycodone HCl/Acetaminophen 1 each PO QID #120 tablet MDD 4 12/03/16 [Oxycodone-Acetaminophen 10-325] REVIEW OF SYSTEMS CONSTITUTIONAL: Absent: fever, chills, diaphoresis, generalized weakness, malaise, loss of appetite, weight change HEENT: Absent: rhinorrhea, nasal congestion, throat pain, throat swelling, difficulty swallowing, mouth swelling, ear pain, eye pain, visual changes CARDIOVASCULAR: Absent: chest pain, syncope, palpitations, irregular heart rate, lightheadedness , peripheral edema RESPIRATORY: Absent: cough, shortness of breath, dyspnea with exertion, orthopnea, wheezing, stridor, hemoptysis GASTROINTESTINAL: Absent: abdominal pain, abdominal distension, nausea, vomiting, diarrhea, constipation, melena, hematochezia GENITOURINARY: Absent: dysuria, frequency, urgency, hesitancy, hematuria, flank pain, genital pain MUSCULOSKELETAL: Absent: myalgia, arthralgia, joint swelling, back pain, neck pain SKIN: Absent: rash, itching, pallor HEMATOLOGIC/IMMUNOLOGIC: Absent: easy bleeding, easy bruising, lymphadenopathy, frequent infections ENDOCRINE: Absent: unexplained weight gain, unexplained weight loss, heat intolerance, cold intolerance NEUROLOGIC: Absent: headache, focal weakness or paresthesias, dizziness, unsteady gait, seizure, mental status changes, bladder or bowel incontinence PSYCHIATRIC: Absent: anxiety, depression, suicidal or homicidal ideation, hallucinations. PHYSICAL EXAMINATION Vital Signs - 24 hr 12/03/16 12/03/16 12/03/16 21:10 23:36 23:46 Temperature 98.1 F 98.1 F Pulse Rate 92 H Pulse Rate [ 98 H Apical] Respiratory 16 20 20 Rate Blood Pressure 120/52 Blood Pressure 128/76 [Right] O2 Sat by Pulse 100 98 Oximetry (%) GENERAL: Awake, alert, and fully oriented, in no acute distress. HEAD: Normal with no signs of trauma. EYES: Pupils equal, round and reactive to light, extraocular movements intact, sclera anicteric, conjunctiva clear. No lid lag. EARS, NOSE, THROAT: Ears normal, nares patent, oropharynx clear without exudates. Moist mucous membranes. NECK: Normal range of motion, supple without lymphadenopathy, JVD, or masses. LUNGS: Breath sounds equal, clear to auscultation bilaterally. No wheezes, and no crackles. No accessory muscle use. HEART: Regular rate and rhythm, normal S1 and S2 without murmur, rub or gallop. ABDOMEN: Soft, nontender, not distended, normoactive bowel sounds, no guarding, no rebound, no masses. No hepatomegaly or splenomegaly. +Ventral hernia MUSCULOSKELETAL: Normal range of motion at all joints. No bony deformities or tenderness. No CVA tenderness. No point tenderness UPPER EXTREMITIES: 2+ pulses, warm, well-perfused. No cyanosis. No clubbing. No peripheral edema. LOWER EXTREMITIES: 2+ pulses, warm, well-perfused. No calf tenderness. No peripheral edema. NEUROLOGICAL: Cranial nerves II-XII intact. Normal speech. Normal gait. PSYCHIATRIC: Cooperative. Good eye contact. Appropriate mood and affect. SKIN: Warm, dry, normal turgor, no rashes or lesions noted, normal capillary refill. Laboratory Results - last 24 hr 12/03/16 23:32 POC Glucometer 171 ASSESSMENT/PLAN: 61 year old M with multiple medical comorbidities presented to the ED with tachycardia and left flank pain placed into observation for left flank pain and ERROL. #ERROL 2/2 to dehydration -Gentle hydration, IVF @ 83 cc/hr, 500 cc max -Urine electrolytes -Continue to monitor Cr #Left flank pain -Oxycodone/Acetaminophen 10/650 mg q6h prn -Renal U/s negative #HTN -Continue Norvasc 5 mg po daily -Continue Lisinopril 5 mg po daily -Continue Coreg 25 mg po BID #DM -BGM ACHS -ISS ACHS -Hold metformin #Systolic CHF -Last echo 06/2016- severely reduced LV function -Continue lasix 40 mg po daily #HLD -Continue Zocor 20 mg po hs #CAD s/p defibrillator placement -Continue plavix 75 mg po daily -Continue cilastazol 50 mg po daily -Continue aspirin 81 mg po daily #COPD -Continue home meds (albuterol, -2L o2 nc, Dependent @home on 2L #Insomnia -Continue ambien 10 mg po hs #FEN/GI -Gentle hydration @ 83cc/hr -500 cc IVF NS -wnl #Ppx -DVT- SCD's Visit type - Emergency Visit Emergency Visit: Yes ED Registration Date: 12/03/16 Care time: The patient presented to the Emergency Department on the above date and was hospitalized for further evaluation of their emergent condition. - New Patient This patient is new to me today: Yes Date on this admission: 12/04/16 - Critical Care Critical Care patient: No
--- NOTE | 2016-12-04 00:13 | PN ---
Teaching Attending Note Name of Resident: Trae Guevara ATTENDING PHYSICIAN STATEMENT I saw and evaluated the patient. I reviewed the resident's note and discussed the case with the resident. I agree with the resident's findings and plan as documented. SUBJECTIVE: 61 y/o male c/o left flank pain 10/10 and on evaluation in ED found to have Cr 2.8 and BUN 58. OBJECTIVE: ASSESSMENT AND PLAN:
[2016-12-04] MEDS: CARVEDILOL 25 MG TABLET (FP) PO SCH ×3 (00:15→21:01)
[2016-12-04] MEDS: ATORVASTATIN CA 10 MG TABLET (FP) PO SCH ×2 (00:15→21:01)
[2016-12-04] MEDS: INSULIN SLIDING SCALE (NOVOLOG) 1 VIAL SQ SCH ×4 (06:07→21:02)
[2016-12-04 09:05] LABS: EOSINOPHIL 4.5 % (0-4.5); MCH 30.9 pg (25.7-33.7); MCHC 33.2 g/dl (32.0-35.9); MEAN CELL VOLUME 93.2 fl (80-96); MEAN PLT VOLUME 8.5 fl (7.5-11.1); NEUTROPHILS 75.6 % (42.8-82.8); PLATELET COUNT 146 K/MM3 (134-434); RDW 15.5 % (11.9-15.9); WHITE BLOOD COUNT 7.8 K/mm3 (4.0-10.0)
[2016-12-04] MEDS ORDERED: PT OWN MED DRAWER 7, Y5N ONE (09:11)
[2016-12-04] MEDS: LISINOPRIL 5 MG TABLET (FP) PO SCH (09:15)
[2016-12-04] MEDS: CILOSTAZOL 50 MG TABLET (FP) PO SCH (09:16)
[2016-12-04] MEDS: CLOPIDOGREL BISULFATE 75 MG TABLET (FP) PO SCH (09:16)
[2016-12-04] MEDS: amLODIPine BESYLATE 5 MG TABLET (FP) PO SCH (09:16)
[2016-12-04] MEDS: ASPIRIN COATED 81 MG TABLET.EC PO SCH (09:16)
[2016-12-04] MEDS: FUROSEMIDE 40 MG TABLET (FP) PO SCH (09:16)
[2016-12-04 09:48] LABS: ALBUMIN 3.4 g/dl (3.4-5.0); ALK PHOS 81 U/L (45-117); ANION GAP 10 (8-16); BILIRUBIN,TOTAL 0.4 mg/dL (0.2-1.0); CALCIUM 8.5 mg/dL (8.5-10.1); CO2 30 mmol/L (21-32); CREATININE 2.6 mg/dL (0.7-1.3); GLUCOSE,RANDOM 133 mg/dL (74-106); SGOT/AST 6 U/L (15-37); SGPT/ALT 8 U/L (12-78); TOT PROT 6.8 g/dl (6.4-8.2)
[2016-12-04] MEDS ORDERED: CARVEDILOL 25 MG TABLET (FP) PO SCH (10:00)
[2016-12-04] MEDS: BUDESONIDE/FORMETEROL FUMARATE 160/4.5 mcg INHALER IH SCH (11:22)
--- NOTE | 2016-12-04 12:17 | PN ---
Progress Note, Physician Chief Complaint: Mr Owen complains of L flank pain. No cp, sob, n/v. - Current Medication List Current Medications: Active Medications Acetaminophen (Tylenol -) 650 mg PO Q6H PRN PRN Reason: PAIN Last Admin: 12/04/16 08:30 Dose: 650 mg Albuterol Sulfate (Ventolin 0.083% Nebulizer Soln -) 1 amp NEB Q6H PRN PRN Reason: SHORT OF BREATH/WHEEZING Amlodipine Besylate (Norvasc -) 5 mg PO DAILY [facility] Last Admin: 12/04/16 09:16 Dose: 5 mg Aspirin (Ecotrin -) 81 mg PO DAILY [facility] Last Admin: 12/04/16 09:16 Dose: 81 mg Atorvastatin Calcium (Lipitor -) 10 mg PO HS [facility] Last Admin: 12/04/16 00:15 Dose: 10 mg Budesonide/Formoterol Fumarate (Symbicort 160/4.5mcg -) 1 puff IH DAILY [facility] Last Admin: 12/04/16 11:22 Dose: 1 puff Carvedilol (Coreg -) 25 mg PO BID [facility] Last Admin: 12/04/16 09:16 Dose: 25 mg Cilostazol (Pletal -) 50 mg PO DAILY [facility] Last Admin: 12/04/16 09:16 Dose: 50 mg Clopidogrel Bisulfate (Plavix -) 75 mg PO DAILY [facility] Last Admin: 12/04/16 09:16 Dose: 75 mg Furosemide (Lasix -) 40 mg PO DAILY [facility] Last Admin: 12/04/16 09:16 Dose: 40 mg Insulin Aspart (Novolog Vial Sliding Scale -) 1 vial SQ [facility] PRN Reason: Protocol Last Admin: 12/04/16 11:15 Dose: Not Given Insulin Detemir (Levemir Vial) 10 units SQ HS [facility] Lisinopril (Prinivil) 5 mg PO DAILY [facility] Last Admin: 12/04/16 09:15 Dose: 5 mg Oxycodone HCl (Roxicodone -) 10 mg PO Q6H PRN PRN Reason: PAIN Last Admin: 12/04/16 08:29 Dose: 10 mg Zolpidem Tartrate (Ambien -) 10 mg PO HS PRN PRN Reason: INSOMNIA Last Admin: 12/04/16 00:06 Dose: 10 mg - Objective Vital Signs: Vital Signs Temperature 36.5 C 12/04/16 09:14 Pulse Rate 97 H 12/04/16 09:14 Respiratory Rate 18 12/04/16 09:14 Blood Pressure 145/80 12/04/16 09:14 O2 Sat by Pulse Oximetry (%) 98 12/04/16 05:35 Constitutional: Yes: Well Nourished, No Distress, Calm Cardiovascular: Yes: Regular Rate and Rhythm. No: Gallop, Murmur, Rub Respiratory: Yes: Regular, CTA Bilaterally. No: Rales, Rhonchi, Wheezes Gastrointestinal: Yes: Normal Bowel Sounds, Soft. No: Distention, Tenderness Extremities: Yes: WNL Edema: No Labs: CBC, BMP 12/04/16 08:15 12/04/16 08:15 Problem List - Problems (1) Acute on chronic renal insufficiency Assessment/Plan: -patient with decreased renal function from baseline -hydrated, but gently secondary to CHF -consult nephrology -renal ultrasound negative Code(s): N28.9 - DISORDER OF KIDNEY AND URETER, UNSPECIFIED N18.9 - CHRONIC KIDNEY DISEASE, UNSPECIFIED (2) Renal colic on left side Assessment/Plan: -patient with flank pain on the L side -aside from decreasing renal function, studies otherwise benign -patient eating and looking comfortable -will not increase pain medications at this time Code(s): N23 - UNSPECIFIED RENAL COLIC (3) CAD (coronary artery disease) Assessment/Plan: -quiescent -continue home regimen Code(s): I25.10 - ATHSCL HEART DISEASE OF [place] CORONARY ARTERY W/O ANG PCTRS (4) CHF (congestive heart failure) Assessment/Plan: -not in exacerbation -continue lasix currently -however may need to hold secondary to renal function -if so, will need to closely monitor as patient becomes fluid overloaded very easily Code(s): I50.9 - HEART FAILURE, UNSPECIFIED Qualifiers: Congestive heart failure type: systolic Congestive heart failure chronicity: chronic Qualified Code(s): I50.22 - Chronic systolic ( congestive) heart failure (5) COPD (chronic obstructive pulmonary disease) Assessment/Plan: -continue home regimen Code(s): J44.9 - CHRONIC OBSTRUCTIVE PULMONARY DISEASE, UNSPECIFIED (6) Diabetes mellitus with insulin therapy Assessment/Plan: -diabetic diet -continue levemir -FSBS and SSI Code(s): E11.9 - TYPE 2 DIABETES MELLITUS WITHOUT COMPLICATIONS Z79.4 - PRISON (CURRENT) USE OF INSULIN (7) HTN (hypertension) Assessment/Plan: -continue lisinopril, norvasc, coreg, and lasix -may need adjustment, will discuss with nephrology Code(s): I10 - ESSENTIAL (PRIMARY) HYPERTENSION Qualifiers: Hypertension type: essential hypertension Qualified Code(s): I10 - Essential (primary) hypertension (8) Anemia in chronic kidney disease Assessment/Plan: -stable and at baseline Code(s): N18.9 - CHRONIC KIDNEY DISEASE, UNSPECIFIED D63.1 - ANEMIA IN CHRONIC KIDNEY DISEASE
[2016-12-04] MEDS ORDERED: INSULIN (NOVOLOG) ASPART 100 UNITS/ML 10ML VIAL ONE ×2 (14:11→20:48)
--- NOTE | 2016-12-04 15:59 | CONSULT ---
Consult Consult Specialty:: Nephrology Reason for Consultation:: ERROL - History of Present Illness Chief Complaint: left side flank pain History of Present Illness: Pt is a 61 year old male with pmhx of a-fib, HTN, CHF, chol, and low back pain who presents to the ER with left side flank pain. He was found to have ERROL and I was called to evaluate him. He feels that the pain is improved today. He denies nsaid use. He denies dysuria or hematuria. He did have an episode of diarrhea. He is awake and alert. He has history of CKD and has had ERROL in the past. He has not followed in the office since I last saw him. - History Source History Provided By: Patient - Past Medical History Cardio/Vascular: Yes: AFIB (after CABG briefly; not on AC), CAD, CHF, HTN Pulmonary: Yes: COPD, O2 Dependent Endocrine: Yes: Diabetes Mellitus - Past Surgical History Past Surgical History: Yes: AICD, CABG - Alcohol/Substance Use Hx Alcohol Use: No History of Substance Use: reports: None - Smoking History Smoking history: Current every day smoker Have you smoked in the past 12 months: Yes Aproximately how many cigarettes per day: 6 If you are a former smoker, when did you quit?: 06/20/16 - Social History Usual Living Arrangement: With Spouse ADL: Independent History of Recent Travel: No Home Medications - Allergies Allergies/Adverse Reactions: Allergies Allergy/AdvReac Type Severity Reaction Status Date / Time codeine AdvReac Intermediate Vomiting Verified 12/03/16 16:04 gabapentin AdvReac Intermediate dizzy Verified 12/03/16 16:04 - Home Medications Home Medications: Ambulatory Orders Amlodipine Besylate [Norvasc -] 5 mg PO DAILY 06/18/15 Aspirin [Aspirin EC] 81 mg PO DAILY 06/18/15 Budesonide/Formeterol Fumarate [SYMBICORT 160/4.5mcg -] 1 inh PO DAILY 06/18/15 Cholecalciferol (Vitamin D3) [Vitamin D3] 2,000 unit PO DAILY 06/18/15 Cilostazol 50 mg PO DAILY 06/18/15 Clopidogrel Bisulfate [Clopidogrel] 75 mg PO DAILY 06/18/15 Furosemide [Lasix -] 40 mg PO DAILY 06/18/15 Insulin Detemir [Levemir Flextouch] 10 unit SQ PRN PRN 06/18/15 Lisinopril 5 mg PO DAILY 06/18/15 Metformin HCl [Glucophage] 1,000 mg PO BID 06/18/15 Simvastatin [Zocor -] 20 mg PO HS 06/18/15 Zolpidem Tartrate [Ambien] 10 mg PO HS 06/18/15 Carvedilol [Coreg -] 25 mg PO BID #60 tablet 06/20/15 Albuterol 0.083% Nebulizer Rosy [Ventolin 0.083% Nebulizer Soln -] 1 neb NEB QID PRN 02/18/16 Miscellaneous Medical Supply [Glucometer Device] 1 each TD ASDIR 30 Days Miscellaneous Medical Supply [Glucometer Test Strips #100] 1 each TD ASDIR #1 ea 09/04/16 Oxycodone HCl/Acetaminophen [Oxycodone-Acetaminophen 10-325] 1 each PO QID #120 tablet MDD 4 12/03/16 Family Disease History - Family Disease History Family Disease History: Heart Disease: Father (etoh), Mother (, cva), Other: Brother (alive - Ramírez - hx etoh), Sister (five - alive - no medical problems), Son (two adults - no problems) Review of Systems - Review of Systems Constitutional: reports: Fever Eyes: reports: No Symptoms HENT: reports: No Symptoms Neck: reports: No Symptoms Cardiovascular: reports: No Symptoms Respiratory: reports: No Symptoms Gastrointestinal: reports: No Symptoms Genitourinary: reports: Flank Pain Musculoskeletal: reports: No Symptoms Integumentary: reports: No Symptoms Neurological: reports: No Symptoms Endocrine: reports: No Symptoms Physical Exam Vital Signs: Vital Signs Temperature 97.5 F L 12/04/16 14:38 Pulse Rate 94 H 12/04/16 14:38 Respiratory Rate 18 12/04/16 13:00 Blood Pressure 114/65 12/04/16 14:38 O2 Sat by Pulse Oximetry (%) 98 12/04/16 13:00 Constitutional: Yes: Calm Eyes: Yes: Conjunctiva Clear HENT: Yes: Atraumatic Cardiovascular: Yes: S1, S2 Respiratory: Yes: CTA Bilaterally Gastrointestinal: Yes: Normal Bowel Sounds, Soft Renal/: Yes: WNL Musculoskeletal: Yes: WNL Edema: No Neurological: Yes: Oriented Psychiatric: Yes: Oriented Labs: CBC, BMP 12/04/16 08:15 12/04/16 08:15 Laboratory Tests 06/10/16 06/12/16 06/29/16 18:34 06:40 05:35 WBC Hgb Sodium BUN Creatinine 1.4 H 1.4 H 1.3 Urine Color Urine Appearance Urine pH Ur Specific [place]rens Urine Glucose (UA) Urine Ketones Urine Blood Urine Nitrite Urine Bilirubin Urine Urobilinogen Ur Leukocyte Esterase 06/30/16 07/01/16 09/04/16 05:32 05:47 09:55 WBC Hgb Sodium BUN Creatinine 1.4 H 1.5 H 77.4 Urine Color Urine Appearance Urine pH Ur Specific [place] Urine Glucose (UA) Urine Ketones Urine Blood Urine Nitrite Urine Bilirubin Urine Urobilinogen Ur Leukocyte Esterase 10/04/16 10/05/16 12/03/16 22:45 08:22 16:50 WBC 10.2 H Hgb 10.0 L D Sodium BUN Creatinine 1.9 H D 1.7 H Urine Color Urine Appearance Urine pH Ur Specific [place] Urine Glucose (UA) Urine Ketones Urine Blood Urine Nitrite Urine Bilirubin Urine Urobilinogen Ur Leukocyte Esterase 12/03/16 12/03/16 12/04/16 16:50 18:54 08:15 WBC 7.8 Hgb 8.9 L D Sodium BUN Creatinine 2.8 H D Urine Color Yellow Urine Appearance Clear Urine pH 5.0 Ur Specific [place] 1.015 Urine Glucose (UA) Negative Urine Ketones Negative Urine Blood 1+ H Urine Nitrite Negative Urine Bilirubin Negative Urine Urobilinogen Negative Ur Leukocyte Esterase Negative 12/04/16 08:15 WBC Hgb Sodium 136 BUN 55 H Creatinine 2.6 H Urine Color Urine Appearance Urine pH Ur Specific [place] Urine Glucose (UA) Urine Ketones Urine Blood Urine Nitrite Urine Bilirubin Urine Urobilinogen Ur Leukocyte Esterase Imaging - Results Ultrasound: Report Reviewed (negative hydro) Problem List - Problems (1) Acute on chronic renal insufficiency Code(s): N28.9 - DISORDER OF KIDNEY AND URETER, UNSPECIFIED N18.9 - CHRONIC KIDNEY DISEASE, UNSPECIFIED (2) CAD (coronary artery disease) Code(s): I25.10 - ATHSCL HEART DISEASE OF [place] CORONARY ARTERY W/O ANG PCTRS (3) CHF (congestive heart failure) Code(s): I50.9 - HEART FAILURE, UNSPECIFIED Qualifiers: Congestive heart failure type: systolic Congestive heart failure chronicity: chronic Qualified Code(s): I50.22 - Chronic systolic ( congestive) heart failure (4) COPD (chronic obstructive pulmonary disease) Code(s): J44.9 - CHRONIC OBSTRUCTIVE PULMONARY DISEASE, UNSPECIFIED (5) HTN (hypertension) Code(s): I10 - ESSENTIAL (PRIMARY) HYPERTENSION Qualifiers: Hypertension type: essential hypertension Qualified Code(s): I10 - Essential (primary) hypertension Assessment/Plan Current Medications Generic Name Dose Route Start Last Admin Trade Name Freq PRN Reason Stop Dose Admin Acetaminophen 650 mg 12/03/16 23:47 12/04/16 14:40 Tylenol - PO 650 mg Q6H PRN Administration PAIN Albuterol Sulfate 1 amp 12/03/16 23:22 Ventolin 0.083% Nebulizer Soln - NEB Q6H PRN SHORT OF BREATH/WHEEZING Amlodipine Besylate 5 mg 12/04/16 10:00 12/04/16 09:16 Norvasc - PO 5 mg DAILY MANJU Administration Aspirin 81 mg 12/04/16 10:00 12/04/16 09:16 Ecotrin - PO 81 mg DAILY MANJU Administration Atorvastatin Calcium 10 mg 12/03/16 23:45 12/04/16 00:15 Lipitor - PO 10 mg HS MANJU Administration Budesonide/Formoterol Fumarate 1 puff 12/04/16 10:00 12/04/16 11:22 Symbicort 160/4.5mcg - IH 1 puff DAILY MANJU Administration Carvedilol 25 mg 12/03/16 23:45 12/04/16 09:16 Coreg - PO 25 mg BID MANJU Administration Cilostazol 50 mg 12/04/16 10:00 12/04/16 09:16 Pletal - PO 50 mg DAILY MANJU Administration Clopidogrel Bisulfate 75 mg 12/04/16 10:00 12/04/16 09:16 Plavix - PO 75 mg DAILY MANJU Administration Furosemide 40 mg 12/04/16 10:00 12/04/16 09:16 Lasix - PO 40 mg DAILY [facility]JU Administration Insulin Aspart 1 vial 12/03/16 22:00 12/04/16 11:15 Novolog Vial Sliding Scale - SQ Not Given [facility] Protocol Insulin Detemir 10 units 12/04/16 22:00 Levemir Vial SQ HS MANJU Lisinopril 5 mg 12/04/16 10:00 12/04/16 09:15 Prinivil PO 5 mg DAILY MANJU Administration Oxycodone HCl 10 mg 12/03/16 23:47 12/04/16 14:39 Roxicodone - PO 10 mg Q6H PRN Administration PAIN Zolpidem Tartrate 10 mg 12/03/16 23:22 12/04/16 00:06 Ambien - PO 10 mg HS PRN Administration INSOMNIA Impression 1. CKD with acute component 2. back pain 3. CAD 4. CHF 5. COPD 6. DM 7. HTN Plan - renal function is starting to improve - repeat labs in am - can cont lisinopril for now - FENa is 1.32 - will follow creatinine trend - elan hold off fluids as pt is now tolerating diet and he has hx of CHF - discussed with medical attending Dr Belcher
[2016-12-04] MEDS: INSULIN DETEMIR 100 UNITS/ML MDV SQ SCH (21:01)
[2016-12-04] MEDS ORDERED: ATORVASTATIN CA 10 MG TABLET (FP) PO SCH (22:00)
[2016-12-05] MEDS: INSULIN SLIDING SCALE (NOVOLOG) 1 VIAL SQ SCH ×4 (06:18→21:40)
[2016-12-05] MEDS: ACETAMINOPHEN 325 MG TABLET (FP) PO PRN ×3 (06:20→20:19)
[2016-12-05] MEDS: oxyCODONE HCL 5 MG TABLET PO PRN ×3 (06:21→20:19)
[2016-12-05 08:33] LABS: BASOPHIL 1.2 % (0-2.0); EOSINOPHIL 4.4 % (0-4.5); MCHC 33.5 g/dl (32.0-35.9); MEAN CELL VOLUME 92.5 fl (80-96); MEAN PLT VOLUME 8.7 fl (7.5-11.1); NEUTROPHILS 78.8 % (42.8-82.8); PLATELET COUNT 133 K/MM3 (134-434); RDW 15.3 % (11.9-15.9); WHITE BLOOD COUNT 8.2 K/mm3 (4.0-10.0)
[2016-12-05 08:55] LABS: ANION GAP 8 (8-16); CALCIUM 8.7 mg/dL (8.5-10.1); CO2 30 mmol/L (21-32); CREATININE 2.2 mg/dL (0.7-1.3); GLUCOSE,RANDOM 91 mg/dL (74-106); PHOSPHOROUS 4.1 mg/dL (2.5-4.9)
[2016-12-05] MEDS ORDERED: PT OWN MED DRAWER 7, Y5N ONE (09:49)
[2016-12-05] MEDS: BUDESONIDE/FORMETEROL FUMARATE 160/4.5 mcg INHALER IH SCH (09:55)
[2016-12-05] MEDS: CILOSTAZOL 50 MG TABLET (FP) PO SCH (09:55)
[2016-12-05] MEDS: CARVEDILOL 25 MG TABLET (FP) PO SCH ×2 (09:55→21:41)
[2016-12-05] MEDS: LISINOPRIL 5 MG TABLET (FP) PO SCH (09:56)
[2016-12-05] MEDS: amLODIPine BESYLATE 5 MG TABLET (FP) PO SCH (09:56)
[2016-12-05] MEDS: FUROSEMIDE 40 MG TABLET (FP) PO SCH (09:56)
[2016-12-05] MEDS: CLOPIDOGREL BISULFATE 75 MG TABLET (FP) PO SCH (09:56)
[2016-12-05] MEDS: ASPIRIN COATED 81 MG TABLET.EC PO SCH (09:56)
--- NOTE | 2016-12-05 12:36 | PN ---
Progress Note, Physician Chief Complaint: Mr Owen complains of L sided back pain. Says he feels it mainly with movement. No cp, sob, n/v. - Current Medication List Current Medications: Active Medications Acetaminophen (Tylenol -) 650 mg PO Q6H PRN PRN Reason: PAIN Last Admin: 12/05/16 06:20 Dose: 650 mg Albuterol Sulfate (Ventolin 0.083% Nebulizer Soln -) 1 amp NEB Q6H PRN PRN Reason: SHORT OF BREATH/WHEEZING Amlodipine Besylate (Norvasc -) 5 mg PO DAILY [facility] Last Admin: 12/05/16 09:56 Dose: 5 mg Aspirin (Ecotrin -) 81 mg PO DAILY [facility] Last Admin: 12/05/16 09:56 Dose: 81 mg Atorvastatin Calcium (Lipitor -) 10 mg PO HS [facility] Last Admin: 12/04/16 21:01 Dose: 10 mg Budesonide/Formoterol Fumarate (Symbicort 160/4.5mcg -) 1 puff IH DAILY [facility] Last Admin: 12/05/16 09:55 Dose: 1 puff Carvedilol (Coreg -) 25 mg PO BID [facility] Last Admin: 12/05/16 09:55 Dose: 25 mg Cilostazol (Pletal -) 50 mg PO DAILY [facility] Last Admin: 12/05/16 09:55 Dose: 50 mg Clopidogrel Bisulfate (Plavix -) 75 mg PO DAILY [facility] Last Admin: 12/05/16 09:56 Dose: 75 mg Cyclobenzaprine HCl (Flexeril -) 5 mg PO TID PRN PRN Reason: BACK PAIN Furosemide (Lasix -) 40 mg PO DAILY [facility] Last Admin: 12/05/16 09:56 Dose: 40 mg Insulin Aspart (Novolog Vial Sliding Scale -) 1 vial SQ ACHS [facility] PRN Reason: Protocol Last Admin: 12/05/16 11:19 Dose: Not Given Insulin Detemir (Levemir Vial) 10 units SQ HS [facility] Last Admin: 12/04/16 21:01 Dose: 10 units Lisinopril (Prinivil) 5 mg PO DAILY [facility] Last Admin: 12/05/16 09:56 Dose: 5 mg Oxycodone HCl (Roxicodone -) 10 mg PO Q6H PRN PRN Reason: PAIN Last Admin: 12/05/16 06:21 Dose: 10 mg Zolpidem Tartrate (Ambien -) 10 mg PO HS PRN PRN Reason: INSOMNIA Last Admin: 12/04/16 21:01 Dose: 10 mg - Objective Vital Signs: Vital Signs Temperature 36.6 C 12/05/16 08:00 Pulse Rate 90 12/05/16 11:27 Respiratory Rate 18 12/05/16 08:00 Blood Pressure 133/79 12/05/16 08:00 O2 Sat by Pulse Oximetry (%) 91 L 12/05/16 11:27 Constitutional: Yes: Well Nourished, No Distress, Calm Cardiovascular: Yes: Regular Rate and Rhythm. No: Gallop, Murmur, Rub Respiratory: Yes: Regular, CTA Bilaterally. No: Rales, Rhonchi, Wheezes Gastrointestinal: Yes: Normal Bowel Sounds, Soft. No: Distention, Tenderness Extremities: Yes: WNL Edema: No Labs: CBC, BMP 12/05/16 07:50 12/05/16 07:50 Problem List - Problems (1) Acute on chronic renal insufficiency Code(s): N28.9 - DISORDER OF KIDNEY AND URETER, UNSPECIFIED N18.9 - CHRONIC KIDNEY DISEASE, UNSPECIFIED (2) Renal colic on left side Code(s): N23 - UNSPECIFIED RENAL COLIC (3) CAD (coronary artery disease) Code(s): I25.10 - ATHSCL HEART DISEASE OF [place] CORONARY ARTERY W/O ANG PCTRS (4) CHF (congestive heart failure) Code(s): I50.9 - HEART FAILURE, UNSPECIFIED Qualifiers: Congestive heart failure type: systolic Congestive heart failure chronicity: chronic Qualified Code(s): I50.22 - Chronic systolic ( congestive) heart failure (5) COPD (chronic obstructive pulmonary disease) Code(s): J44.9 - CHRONIC OBSTRUCTIVE PULMONARY DISEASE, UNSPECIFIED (6) Diabetes mellitus with insulin therapy Code(s): E11.9 - TYPE 2 DIABETES MELLITUS WITHOUT COMPLICATIONS 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 (7) HTN (hypertension) Code(s): I10 - ESSENTIAL (PRIMARY) HYPERTENSION Qualifiers: Hypertension type: essential hypertension Qualified Code(s): I10 - Essential (primary) hypertension (8) Anemia in chronic kidney disease Code(s): N18.9 - CHRONIC KIDNEY DISEASE, UNSPECIFIED D63.1 - ANEMIA IN CHRONIC KIDNEY DISEASE Assessment/Plan (1) Acute on chronic renal insufficiency Assessment/Plan: -appreciate nephrology assistance -improved, but not at baseline -if stable or improved, possible discharge tomorrow if ok with nephrology Code(s): N28.9 - DISORDER OF KIDNEY AND URETER, UNSPECIFIED N18.9 - CHRONIC KIDNEY DISEASE, UNSPECIFIED (2) Renal colic on left side Assessment/Plan: -suspect this is more musculoskeletal as opposed to renal colic -will continue current narcotic regimen without change -? possible secondary gain, d/w RN and states patient asks for pain medication right when it is due -PT consult -will add prn flexeril to see if assists Code(s): N23 - UNSPECIFIED RENAL COLIC (3) CAD (coronary artery disease) Assessment/Plan: -quiescent -continue home regimen Code(s): I25.10 - ATHSCL HEART DISEASE OF [place] CORONARY ARTERY W/O ANG PCTRS (4) CHF (congestive heart failure) Assessment/Plan: -not in exacerbation -continue lasix currently Code(s): I50.9 - HEART FAILURE, UNSPECIFIED Qualifiers: Congestive heart failure type: systolic Congestive heart failure chronicity: chronic Qualified Code(s): I50.22 - Chronic systolic ( congestive) heart failure (5) COPD (chronic obstructive pulmonary disease) Assessment/Plan: -continue home regimen Code(s): J44.9 - CHRONIC OBSTRUCTIVE PULMONARY DISEASE, UNSPECIFIED (6) Diabetes mellitus with insulin therapy Assessment/Plan: -diabetic diet -continue levemir -FSBS and SSI Code(s): E11.9 - TYPE 2 DIABETES MELLITUS WITHOUT COMPLICATIONS Z79.4 - RESIDENTIAL (CURRENT) USE OF INSULIN (7) HTN (hypertension) Assessment/Plan: -continue lisinopril, norvasc, coreg, and lasix Code(s): I10 - ESSENTIAL (PRIMARY) HYPERTENSION Qualifiers: Hypertension type: essential hypertension Qualified Code(s): I10 - Essential (primary) hypertension (8) Anemia in chronic kidney disease Assessment/Plan: -stable and at baseline Code(s): N18.9 - CHRONIC KIDNEY DISEASE, UNSPECIFIED D63.1 - ANEMIA IN CHRONIC KIDNEY DISEASE
[2016-12-05] MEDS: CYCLOBENZAPRINE HCL 10 MG TABLET (FP) PO PRN ×2 (14:18→21:41)
--- NOTE | 2016-12-05 19:58 | PN ---
Progress Note (short form) - Note Progress Note: Current Medications Acetaminophen (Tylenol -) 650 mg PO Q6H PRN PRN Reason: PAIN Last Admin: 12/05/16 12:39 Dose: 650 mg Albuterol Sulfate (Ventolin 0.083% Nebulizer Soln -) 1 amp NEB Q6H PRN PRN Reason: SHORT OF BREATH/WHEEZING Amlodipine Besylate (Norvasc -) 5 mg PO DAILY [facility] Last Admin: 12/05/16 09:56 Dose: 5 mg Aspirin (Ecotrin -) 81 mg PO DAILY [facility] Last Admin: 12/05/16 09:56 Dose: 81 mg Atorvastatin Calcium (Lipitor -) 10 mg PO HS [facility] Last Admin: 12/04/16 21:01 Dose: 10 mg Budesonide/Formoterol Fumarate (Symbicort 160/4.5mcg -) 1 puff IH DAILY [facility] Last Admin: 12/05/16 09:55 Dose: 1 puff Carvedilol (Coreg -) 25 mg PO BID [facility] Last Admin: 12/05/16 09:55 Dose: 25 mg Cilostazol (Pletal -) 50 mg PO DAILY [facility] Last Admin: 12/05/16 09:55 Dose: 50 mg Clopidogrel Bisulfate (Plavix -) 75 mg PO DAILY [facility] Last Admin: 12/05/16 09:56 Dose: 75 mg Cyclobenzaprine HCl (Flexeril -) 5 mg PO TID PRN PRN Reason: BACK PAIN Last Admin: 12/05/16 14:18 Dose: 5 mg Furosemide (Lasix -) 40 mg PO DAILY [facility] Last Admin: 12/05/16 09:56 Dose: 40 mg Insulin Aspart (Novolog Vial Sliding Scale -) 1 vial SQ ACHS [facility] PRN Reason: Protocol Last Admin: 12/05/16 16:41 Dose: Not Given Insulin Detemir (Levemir Vial) 10 units SQ HS [facility] Last Admin: 12/04/16 21:01 Dose: 10 units Lisinopril (Prinivil) 5 mg PO DAILY [facility] Last Admin: 12/05/16 09:56 Dose: 5 mg Oxycodone HCl (Roxicodone -) 10 mg PO Q6H PRN PRN Reason: PAIN Last Admin: 12/05/16 12:38 Dose: 10 mg Zolpidem Tartrate (Ambien -) 10 mg PO HS PRN PRN Reason: INSOMNIA Last Admin: 12/04/16 21:01 Dose: 10 mg still c/o pains Last Vital Signs Temp Pulse Resp BP Pulse Ox 98.0 F 99 H 20 118/77 96 12/05/16 14:00 12/05/16 14:00 12/05/16 14:00 12/05/16 14:00 12/05/16 13:00 CBC, BMP 12/05/16 07:50 12/05/16 07:50 renal function is getting better continue hydration
[2016-12-05] MEDS ORDERED: INSULIN (NOVOLOG) ASPART 100 UNITS/ML 10ML VIAL ONE (21:37)
[2016-12-05] MEDS: ZOLPIDEM TARTRATE 5 MG TABLET PO PRN (21:41)
[2016-12-05] MEDS: INSULIN DETEMIR 100 UNITS/ML MDV SQ SCH (21:41)
[2016-12-05] MEDS: ATORVASTATIN CA 10 MG TABLET (FP) PO SCH (21:41)
[2016-12-06] MEDS: CYCLOBENZAPRINE HCL 10 MG TABLET (FP) PO PRN ×2 (06:23→17:51)
[2016-12-06] MEDS: oxyCODONE HCL 5 MG TABLET PO PRN ×3 (06:23→22:05)
[2016-12-06] MEDS: ACETAMINOPHEN 325 MG TABLET (FP) PO PRN ×3 (06:23→22:08)
[2016-12-06] MEDS: INSULIN SLIDING SCALE (NOVOLOG) 1 VIAL SQ SCH ×4 (06:35→22:04)
[2016-12-06] MEDS ORDERED: INSULIN (NOVOLOG) ASPART 100 UNITS/ML 10ML VIAL ONE (06:49)
[2016-12-06 07:52] LABS: BASOPHIL 1.1 % (0-2.0); EOSINOPHIL 4.9 % (0-4.5); MCH 31.2 pg (25.7-33.7); MCHC 33.7 g/dl (32.0-35.9); MEAN CELL VOLUME 92.4 fl (80-96); MEAN PLT VOLUME 8.6 fl (7.5-11.1); NEUTROPHILS 76.6 % (42.8-82.8); PLATELET COUNT 145 K/MM3 (134-434); RDW 15.2 % (11.9-15.9); WHITE BLOOD COUNT 7.9 K/mm3 (4.0-10.0)
[2016-12-06 08:21] LABS: ANION GAP 8 (8-16); CALCIUM 8.9 mg/dL (8.5-10.1); CO2 31 mmol/L (21-32); CREATININE 2.1 mg/dL (0.7-1.3); GLUCOSE,RANDOM 107 mg/dL (74-106); PHOSPHOROUS 3.8 mg/dL (2.5-4.9)
[2016-12-06] MEDS ORDERED: PT OWN MED DRAWER 7, Y5N ONE (09:18)
[2016-12-06] MEDS: BUDESONIDE/FORMETEROL FUMARATE 160/4.5 mcg INHALER IH SCH (09:37)
[2016-12-06] MEDS: FUROSEMIDE 40 MG TABLET (FP) PO SCH (09:40)
[2016-12-06] MEDS: CLOPIDOGREL BISULFATE 75 MG TABLET (FP) PO SCH (09:40)
[2016-12-06] MEDS: ASPIRIN COATED 81 MG TABLET.EC PO SCH (09:40)
[2016-12-06] MEDS: CARVEDILOL 25 MG TABLET (FP) PO SCH ×2 (09:40→22:01)
[2016-12-06] MEDS: LISINOPRIL 5 MG TABLET (FP) PO SCH (09:40)
[2016-12-06] MEDS: amLODIPine BESYLATE 5 MG TABLET (FP) PO SCH (09:40)
[2016-12-06] MEDS: CILOSTAZOL 50 MG TABLET (FP) PO SCH (09:41)
[2016-12-06] MEDS: LIDOCAINE 5% TOPICAL PATCH TP SCH (10:58)
--- NOTE | 2016-12-06 11:14 | PN ---
Progress Note, Physician History of Present Illness: Patient notes left lower back/ flank pain continues. No fevers noted. - Current Medication List Current Medications: Active Medications Acetaminophen (Tylenol -) 650 mg PO Q6H PRN PRN Reason: PAIN Last Admin: 12/06/16 06:23 Dose: 650 mg Albuterol Sulfate (Ventolin 0.083% Nebulizer Soln -) 1 amp NEB Q6H PRN PRN Reason: SHORT OF BREATH/WHEEZING Amlodipine Besylate (Norvasc -) 5 mg PO DAILY [facility] Last Admin: 12/06/16 09:40 Dose: 5 mg Aspirin (Ecotrin -) 81 mg PO DAILY [facility] Last Admin: 12/06/16 09:40 Dose: 81 mg Atorvastatin Calcium (Lipitor -) 10 mg PO HS [facility] Last Admin: 12/05/16 21:41 Dose: 10 mg Budesonide/Formoterol Fumarate (Symbicort 160/4.5mcg -) 1 puff IH DAILY [facility] Last Admin: 12/06/16 09:37 Dose: 1 puff Carvedilol (Coreg -) 25 mg PO BID [facility] Last Admin: 12/06/16 09:40 Dose: 25 mg Cilostazol (Pletal -) 50 mg PO DAILY [facility] Last Admin: 12/06/16 09:41 Dose: 50 mg Clopidogrel Bisulfate (Plavix -) 75 mg PO DAILY [facility] Last Admin: 12/06/16 09:40 Dose: 75 mg Cyclobenzaprine HCl (Flexeril -) 5 mg PO TID PRN PRN Reason: BACK PAIN Last Admin: 12/06/16 06:23 Dose: 5 mg Furosemide (Lasix -) 40 mg PO DAILY [facility] Last Admin: 12/06/16 09:40 Dose: 40 mg Insulin Aspart (Novolog Vial Sliding Scale -) 1 vial SQ ACHS [facility] PRN Reason: Protocol Last Admin: 12/06/16 06:35 Dose: Not Given Insulin Detemir (Levemir Vial) 10 units SQ HS [facility] Last Admin: 12/05/16 21:41 Dose: 10 units Lidocaine (Lidoderm Patch -) 1 patch TP DAILY [facility] Last Admin: 12/06/16 10:58 Dose: 1 patch Lisinopril (Prinivil) 5 mg PO DAILY [facility] Last Admin: 12/06/16 09:40 Dose: 5 mg Miscellaneous (Lidoderm Patch Removal) 1 each DAILY@2200 [facility] Oxycodone HCl (Roxicodone -) 10 mg PO Q6H PRN PRN Reason: PAIN Last Admin: 12/06/16 06:23 Dose: 10 mg Zolpidem Tartrate (Ambien -) 10 mg PO HS PRN PRN Reason: INSOMNIA Last Admin: 12/05/16 21:41 Dose: 10 mg - Objective Vital Signs: Vital Signs Temperature 98.2 F 12/06/16 08:00 Pulse Rate 103 H 12/06/16 08:00 Respiratory Rate 18 12/06/16 08:00 Blood Pressure 116/61 12/06/16 08:00 O2 Sat by Pulse Oximetry (%) 96 12/05/16 13:00 Constitutional: Yes: Calm, Mild Distress (due to left back pain) HENT: Yes: Atraumatic, Normocephalic Neck: Yes: Supple, Trachea Midline Cardiovascular: Yes: Regular Rate and Rhythm, S1, S2. No: Murmur Respiratory: Yes: Regular, CTA Bilaterally. No: Rales, Rhonchi, Wheezes Gastrointestinal: Yes: Normal Bowel Sounds, Soft. No: Distention, Tenderness Edema: No Labs: CBC, BMP 12/06/16 06:42 12/06/16 06:42 Assessment/Plan Current Active Problems Acute on chronic renal insufficiency (Acute) Renal colic on left side (Acute) Rib pain on left side (Acute) DM Anemia of CHronic disease CAD HTN -start lidoderm patch for back pain -renal following, creatinine slightly improved since admission
[2016-12-06] MEDS: ATORVASTATIN CA 10 MG TABLET (FP) PO SCH (22:01)
[2016-12-06] MEDS: ZOLPIDEM TARTRATE 5 MG TABLET PO PRN (22:01)
[2016-12-06] MEDS: LIDOCAINE PATCH REMOVAL MC SCH (22:15)
[2016-12-06] MEDS: INSULIN DETEMIR 100 UNITS/ML MDV SQ SCH (22:15)
--- NOTE | 2016-12-06 23:12 | PN ---
Progress Note (short form) - Note Progress Note: Current Medications Acetaminophen (Tylenol -) 650 mg PO Q6H PRN PRN Reason: PAIN Last Admin: 12/06/16 22:08 Dose: 650 mg Albuterol Sulfate (Ventolin 0.083% Nebulizer Soln -) 1 amp NEB Q6H PRN PRN Reason: SHORT OF BREATH/WHEEZING Amlodipine Besylate (Norvasc -) 5 mg PO DAILY [facility] Last Admin: 12/06/16 09:40 Dose: 5 mg Aspirin (Ecotrin -) 81 mg PO DAILY [facility] Last Admin: 12/06/16 09:40 Dose: 81 mg Atorvastatin Calcium (Lipitor -) 10 mg PO HS [facility] Last Admin: 12/06/16 22:01 Dose: 10 mg Budesonide/Formoterol Fumarate (Symbicort 160/4.5mcg -) 1 puff IH DAILY [facility] Last Admin: 12/06/16 09:37 Dose: 1 puff Carvedilol (Coreg -) 25 mg PO BID [facility] Last Admin: 12/06/16 22:01 Dose: 25 mg Cilostazol (Pletal -) 50 mg PO DAILY [facility] Last Admin: 12/06/16 09:41 Dose: 50 mg Clopidogrel Bisulfate (Plavix -) 75 mg PO DAILY [facility] Last Admin: 12/06/16 09:40 Dose: 75 mg Cyclobenzaprine HCl (Flexeril -) 5 mg PO TID PRN PRN Reason: BACK PAIN Last Admin: 12/06/16 17:51 Dose: 5 mg Furosemide (Lasix -) 40 mg PO DAILY [facility] Last Admin: 12/06/16 09:40 Dose: 40 mg Insulin Aspart (Novolog Vial Sliding Scale -) 1 vial SQ ACHS [facility] PRN Reason: Protocol Last Admin: 12/06/16 22:04 Dose: Not Given Insulin Detemir (Levemir Vial) 10 units SQ HS [facility] Last Admin: 12/06/16 22:15 Dose: 10 units Lidocaine (Lidoderm Patch -) 1 patch TP DAILY [facility] Last Admin: 12/06/16 10:58 Dose: 1 patch Lisinopril (Prinivil) 5 mg PO DAILY [facility] Last Admin: 12/06/16 09:40 Dose: 5 mg Miscellaneous (Lidoderm Patch Removal) 1 each MC DAILY@2200 [facility] Last Admin: 12/06/16 22:15 Dose: 1 each Oxycodone HCl (Roxicodone -) 10 mg PO Q6H PRN PRN Reason: PAIN Last Admin: 12/06/16 22:05 Dose: 10 mg Zolpidem Tartrate (Ambien -) 10 mg PO HS PRN PRN Reason: INSOMNIA Last Admin: 12/06/16 22:01 Dose: 10 mg still c/o pains Last Vital Signs Temp Pulse Resp BP Pulse Ox 97.9 F 80 18 120/69 96 12/06/16 16:11 12/06/16 16:11 12/06/16 16:11 12/06/16 16:11 12/06/16 13:00 CBC, BMP 12/06/16 06:42 12/06/16 06:42 CBC, BMP 12/05/16 07:50 12/05/16 07:50 renal function is getting better baseline s creat can be as good as 1.3-1.5 continue hydration orally can be d/c with outpatient f/u within 1-2 weeks from renal POV
[2016-12-07] MEDS: INSULIN SLIDING SCALE (NOVOLOG) 1 VIAL SQ SCH ×4 (06:27→21:56)
--- NOTE | 2016-12-07 08:36 | PN ---
Progress Note, Physician History of Present Illness: Feels about the same, pain felt better with lidocaine patch. - Current Medication List Current Medications: Active Medications Acetaminophen (Tylenol -) 650 mg PO Q6H PRN PRN Reason: PAIN Last Admin: 12/06/16 22:08 Dose: 650 mg Albuterol Sulfate (Ventolin 0.083% Nebulizer Soln -) 1 amp NEB Q6H PRN PRN Reason: SHORT OF BREATH/WHEEZING Amlodipine Besylate (Norvasc -) 5 mg PO DAILY [facility] Last Admin: 12/06/16 09:40 Dose: 5 mg Aspirin (Ecotrin -) 81 mg PO DAILY [facility] Last Admin: 12/06/16 09:40 Dose: 81 mg Atorvastatin Calcium (Lipitor -) 10 mg PO HS [facility] Last Admin: 12/06/16 22:01 Dose: 10 mg Budesonide/Formoterol Fumarate (Symbicort 160/4.5mcg -) 1 puff IH DAILY [facility] Last Admin: 12/06/16 09:37 Dose: 1 puff Carvedilol (Coreg -) 25 mg PO BID [facility] Last Admin: 12/06/16 22:01 Dose: 25 mg Cilostazol (Pletal -) 50 mg PO DAILY [facility] Last Admin: 12/06/16 09:41 Dose: 50 mg Clopidogrel Bisulfate (Plavix -) 75 mg PO DAILY [facility] Last Admin: 12/06/16 09:40 Dose: 75 mg Cyclobenzaprine HCl (Flexeril -) 5 mg PO TID PRN PRN Reason: BACK PAIN Last Admin: 12/06/16 17:51 Dose: 5 mg Furosemide (Lasix -) 40 mg PO DAILY [facility] Last Admin: 12/06/16 09:40 Dose: 40 mg Insulin Aspart (Novolog Vial Sliding Scale -) 1 vial SQ ACHS [facility] PRN Reason: Protocol Last Admin: 12/07/16 06:27 Dose: Not Given Insulin Detemir (Levemir Vial) 10 units SQ HS [facility] Last Admin: 12/06/16 22:15 Dose: 10 units Lidocaine (Lidoderm Patch -) 1 patch TP DAILY [facility] Last Admin: 12/06/16 10:58 Dose: 1 patch Lisinopril (Prinivil) 5 mg PO DAILY [facility] Last Admin: 12/06/16 09:40 Dose: 5 mg Miscellaneous (Lidoderm Patch Removal) 1 each MC DAILY@2200 [facility] Last Admin: 12/06/16 22:15 Dose: 1 each Oxycodone HCl (Roxicodone -) 10 mg PO Q6H PRN PRN Reason: PAIN Last Admin: 12/06/16 22:05 Dose: 10 mg Zolpidem Tartrate (Ambien -) 10 mg PO HS PRN PRN Reason: INSOMNIA Last Admin: 12/06/16 22:01 Dose: 10 mg - Objective Vital Signs: Vital Signs Temperature 98 F 12/07/16 06:00 Pulse Rate 65 12/07/16 06:00 Respiratory Rate 18 12/07/16 06:00 Blood Pressure 102/54 12/07/16 06:00 O2 Sat by Pulse Oximetry (%) 96 12/06/16 13:00 Constitutional: Yes: No Distress, Calm Cardiovascular: Yes: Regular Rate and Rhythm, S1, S2. No: Murmur Respiratory: Yes: Regular, CTA Bilaterally. No: Rales, Rhonchi, Wheezes Gastrointestinal: Yes: Normal Bowel Sounds, Soft. No: Distention, Tenderness Edema: No Assessment/Plan Current Active Problems Acute on chronic renal insufficiency (Acute) Renal colic on left side (Acute) Rib pain on left side (Acute) DM Anemia of CHronic disease CAD HTN -follow creatinine -if renal function improves consider d/c home tomorrow
[2016-12-07 08:45] LABS: BASOPHIL 1.1 % (0-2.0); EOSINOPHIL 4.4 % (0-4.5); MCH 30.8 pg (25.7-33.7); MCHC 33.3 g/dl (32.0-35.9); MEAN CELL VOLUME 92.4 fl (80-96); MEAN PLT VOLUME 8.6 fl (7.5-11.1); NEUTROPHILS 76.9 % (42.8-82.8); PLATELET COUNT 158 K/MM3 (134-434); RDW 14.8 % (11.9-15.9); WHITE BLOOD COUNT 8.6 K/mm3 (4.0-10.0)
[2016-12-07] MEDS: oxyCODONE HCL 5 MG TABLET PO PRN ×2 (08:56→16:53)
[2016-12-07] MEDS: ACETAMINOPHEN 325 MG TABLET (FP) PO PRN ×2 (08:57→16:54)
[2016-12-07 09:06] LABS: ALBUMIN 3.3 g/dl (3.4-5.0); ALK PHOS 75 U/L (45-117); ANION GAP 10 (8-16); BILIRUBIN,TOTAL 0.5 mg/dL (0.2-1.0); CALCIUM 9.1 mg/dL (8.5-10.1); CO2 30 mmol/L (21-32); CREATININE 2.2 mg/dL (0.7-1.3); GLUCOSE,RANDOM 74 mg/dL (74-106); SGOT/AST 8 U/L (15-37); SGPT/ALT 6 U/L (12-78); TOT PROT 6.7 g/dl (6.4-8.2)
[2016-12-07] MEDS: LIDOCAINE 5% TOPICAL PATCH TP SCH (09:59)
[2016-12-07] MEDS: ASPIRIN COATED 81 MG TABLET.EC PO SCH (10:01)
[2016-12-07] MEDS: FUROSEMIDE 40 MG TABLET (FP) PO SCH (10:01)
[2016-12-07] MEDS: CARVEDILOL 25 MG TABLET (FP) PO SCH ×2 (10:01→21:53)
[2016-12-07] MEDS: BUDESONIDE/FORMETEROL FUMARATE 160/4.5 mcg INHALER IH SCH (10:01)
[2016-12-07] MEDS: CILOSTAZOL 50 MG TABLET (FP) PO SCH (10:01)
[2016-12-07] MEDS: amLODIPine BESYLATE 5 MG TABLET (FP) PO SCH (10:01)
[2016-12-07] MEDS: LISINOPRIL 5 MG TABLET (FP) PO SCH (10:01)
[2016-12-07] MEDS: CLOPIDOGREL BISULFATE 75 MG TABLET (FP) PO SCH (10:01)
--- NOTE | 2016-12-07 19:44 | PN ---
Progress Note (short form) - Note Progress Note: acute on chronic renal insuff back pain Current Medications Acetaminophen (Tylenol -) 650 mg PO Q6H PRN PRN Reason: PAIN Last Admin: 12/07/16 16:54 Dose: 650 mg Albuterol Sulfate (Ventolin 0.083% Nebulizer Soln -) 1 amp NEB Q6H PRN PRN Reason: SHORT OF BREATH/WHEEZING Amlodipine Besylate (Norvasc -) 5 mg PO DAILY [facility] Last Admin: 12/07/16 10:01 Dose: 5 mg Aspirin (Ecotrin -) 81 mg PO DAILY [facility] Last Admin: 12/07/16 10:01 Dose: 81 mg Atorvastatin Calcium (Lipitor -) 10 mg PO HS [facility] Last Admin: 12/06/16 22:01 Dose: 10 mg Budesonide/Formoterol Fumarate (Symbicort 160/4.5mcg -) 1 puff IH DAILY [facility] Last Admin: 12/07/16 10:01 Dose: 1 puff Carvedilol (Coreg -) 25 mg PO BID [facility] Last Admin: 12/07/16 10:01 Dose: 25 mg Cilostazol (Pletal -) 50 mg PO DAILY [facility] Last Admin: 12/07/16 10:01 Dose: 50 mg Clopidogrel Bisulfate (Plavix -) 75 mg PO DAILY [facility] Last Admin: 12/07/16 10:01 Dose: 75 mg Cyclobenzaprine HCl (Flexeril -) 5 mg PO TID PRN PRN Reason: BACK PAIN Last Admin: 12/06/16 17:51 Dose: 5 mg Furosemide (Lasix -) 40 mg PO DAILY [facility] Last Admin: 12/07/16 10:01 Dose: 40 mg Insulin Aspart (Novolog Vial Sliding Scale -) 1 vial SQ ACHS [facility] PRN Reason: Protocol Last Admin: 12/07/16 16:14 Dose: Not Given Insulin Detemir (Levemir Vial) 10 units SQ HS [facility] Last Admin: 12/06/16 22:15 Dose: 10 units Lidocaine (Lidoderm Patch -) 1 patch TP DAILY [facility] Last Admin: 12/07/16 09:59 Dose: 1 patch Lisinopril (Prinivil) 5 mg PO DAILY [facility] Last Admin: 12/07/16 10:01 Dose: 5 mg Miscellaneous (Lidoderm Patch Removal) 1 each MC DAILY@2200 [facility] Last Admin: 12/06/16 22:15 Dose: 1 each Oxycodone HCl (Roxicodone -) 10 mg PO Q6H PRN PRN Reason: PAIN Last Admin: 12/07/16 16:53 Dose: 10 mg Zolpidem Tartrate (Ambien -) 10 mg PO HS PRN PRN Reason: INSOMNIA Last Admin: 12/06/16 22:01 Dose: 10 mg still c/o pains Last Vital Signs Temp Pulse Resp BP Pulse Ox 98.2 F 87 18 131/54 94 L 12/07/16 18:00 12/07/16 18:00 12/07/16 18:00 12/07/16 18:00 12/07/16 09:00 alert in nad Lungs clear heart RRR Abd soft nontender ext no edema CBC, BMP 12/07/16 07:15 12/07/16 07:15 IMP- renal function is getting better baseline s creat can be as good as 1.3-1.5 continue hydration orally can be d/c with outpatient f/u within 1-2 weeks from renal POV
[2016-12-07] MEDS: INSULIN DETEMIR 100 UNITS/ML MDV SQ SCH (21:53)
[2016-12-07] MEDS: ATORVASTATIN CA 10 MG TABLET (FP) PO SCH (21:54)
[2016-12-07] MEDS: ZOLPIDEM TARTRATE 5 MG TABLET PO PRN (21:54)
[2016-12-07] MEDS: LIDOCAINE PATCH REMOVAL MC SCH (21:56)
[2016-12-08] MEDS: ACETAMINOPHEN 325 MG TABLET (FP) PO PRN ×2 (00:21→06:20)
[2016-12-08] MEDS: oxyCODONE HCL 5 MG TABLET PO PRN ×2 (00:21→06:19)
[2016-12-08 05:13] VITALS: BP 105/58; TEMP 97.7
[2016-12-08] MEDS: INSULIN SLIDING SCALE (NOVOLOG) 1 VIAL SQ SCH ×2 (06:19→11:46)
[2016-12-08 08:54] LABS: ALBUMIN 2.8 g/dl (3.4-5.0); ALK PHOS 84 U/L (45-117); ANION GAP 9 (8-16); BILIRUBIN,TOTAL 0.5 mg/dL (0.2-1.0); CALCIUM 8.6 mg/dL (8.5-10.1); CO2 30 mmol/L (21-32); CREATININE 2.2 mg/dL (0.7-1.3); GLUCOSE,RANDOM 81 mg/dL (74-106); SGOT/AST 9 U/L (15-37); SGPT/ALT 7 U/L (12-78); TOT PROT 6.1 g/dl (6.4-8.2)
[2016-12-08 10:14] VITALS: PULSE 79
[2016-12-08] MEDS ORDERED: PT OWN MED DRAWER 7, Y5N ONE (10:19)
[2016-12-08] MEDS: ASPIRIN COATED 81 MG TABLET.EC PO SCH (10:22)
[2016-12-08] MEDS: CARVEDILOL 25 MG TABLET (FP) PO SCH (10:22)
[2016-12-08] MEDS: LIDOCAINE 5% TOPICAL PATCH TP SCH (10:23)
[2016-12-08] MEDS: FUROSEMIDE 40 MG TABLET (FP) PO SCH (10:23)
[2016-12-08] MEDS: amLODIPine BESYLATE 5 MG TABLET (FP) PO SCH (10:24)
[2016-12-08] MEDS: CLOPIDOGREL BISULFATE 75 MG TABLET (FP) PO SCH (10:24)
[2016-12-08] MEDS: BUDESONIDE/FORMETEROL FUMARATE 160/4.5 mcg INHALER IH SCH (10:25)
[2016-12-08] MEDS: LISINOPRIL 5 MG TABLET (FP) PO SCH (10:25)
[2016-12-08] MEDS: CILOSTAZOL 50 MG TABLET (FP) PO SCH (10:25)
--- NOTE | 2016-12-08 10:36 | DS ---
Physical Examination Vital Signs: Vital Signs Temperature 97.7 F 12/08/16 05:12 Pulse Rate 79 12/08/16 10:14 Respiratory Rate 18 12/08/16 05:12 Blood Pressure 105/58 12/08/16 05:12 O2 Sat by Pulse Oximetry (%) 97 12/08/16 10:14 Constitutional: Yes: No Distress, Calm Eyes: Yes: Conjunctiva Clear, EOM Intact HENT: Yes: Atraumatic, Normocephalic Neck: Yes: Supple, Trachea Midline Cardiovascular: Yes: Regular Rate and Rhythm, S1, S2. No: Murmur Respiratory: Yes: Regular, CTA Bilaterally. No: Rales, Rhonchi, Wheezes Gastrointestinal: Yes: Normal Bowel Sounds, Soft. No: Distention, Tenderness Musculoskeletal: Yes: Back Pain Edema: No Neurological: Yes: Alert, Oriented Labs: CBC, BMP 12/07/16 07:15 12/08/16 06:00 Discharge Summary Reason For Visit: ACUTE ON CHRONIC RENAL INSUFFICIENCY Current Active Problems Acute on chronic renal insufficiency (Acute) Renal colic on left side (Acute) Rib pain on left side (Acute) Hospital Course: 61 yo male admitted with left back/ flank pain and ARF. Renal US showed no hydronephrosis or kidney stones. He was seen by nephrology and given IVF, with his chronic diuretic dosage decreased. Creatinine improved (not yet to baseline ) but stable for discharge now per nephrology. Will need to f/u in office for repeat renal function testing. Back/ Flank pain did respond somewhat to Lidoderm patch, so pain was liekly musculoskeletal. Condition: Fair - Instructions Diet, Activity, Other Instructions: diabetic Referrals: Kanu Truong MD [Primary Care Provider] - Disposition: HOME - Home Medications Comprehensive Discharge Medication List: Ambulatory Orders Amlodipine Besylate [Norvasc -] 5 mg PO DAILY 06/18/15 Aspirin [Aspirin EC] 81 mg PO DAILY 06/18/15 Budesonide/Formeterol Fumarate [SYMBICORT 160/4.5mcg -] 1 inh PO DAILY 06/18/15 Cholecalciferol (Vitamin D3) [Vitamin D3] 2,000 unit PO DAILY 06/18/15 Cilostazol 50 mg PO DAILY 06/18/15 Clopidogrel Bisulfate [Clopidogrel] 75 mg PO DAILY 06/18/15 Furosemide [Lasix -] 40 mg PO DAILY 06/18/15 Insulin Detemir [Levemir Flextouch] 10 unit SQ PRN PRN 06/18/15 Lisinopril 5 mg PO DAILY 06/18/15 Metformin HCl [Glucophage] 1,000 mg PO BID 06/18/15 Simvastatin [Zocor -] 20 mg PO HS 06/18/15 Zolpidem Tartrate [Ambien] 10 mg PO HS 06/18/15 Carvedilol [Coreg -] 25 mg PO BID #60 tablet 06/20/15 Albuterol 0.083% Nebulizer Rosy [Ventolin 0.083% Nebulizer Soln -] 1 neb NEB QID PRN 02/18/16 Miscellaneous Medical Supply [Glucometer Device] 1 each TD ASDIR 30 Days Miscellaneous Medical Supply [Glucometer Test Strips #100] 1 each TD ASDIR #1 ea 09/04/16 Oxycodone HCl/Acetaminophen [Oxycodone-Acetaminophen 10-325] 1 each PO QID #120 tablet MDD 4 12/03/16 Lidocaine 5% Patch [Lidoderm -] 1 patch TP DAILY #30 patch 12/08/16
--- NOTE | 2016-12-11 12:25 | EKG ---
Test Reason : Blood Pressure : / mmHG Vent. Rate : 113 BPM Atrial Rate : 083 BPM P-R Int : 000 ms QRS Dur : 148 ms QT Int : 382 ms P-R-T Axes : 000 -52 123 degrees QTc Int : 523 ms ATRIAL FIBRILLATION WITH RAPID VENTRICULAR RESPONSE WITH PREMATURE VENTRICULAR OR ABERRANTLY CONDUCTED COMPLEXES LEFT AXIS DEVIATION LEFT VENTRICULAR HYPERTROPHY WITH QRS WIDENING INFERIOR INFARCT (CITED ON OR BEFORE 24-JUN-2016) CANNOT RULE OUT ANTERIOR INFARCT , AGE UNDETERMINED T WAVE ABNORMALITY, CONSIDER LATERAL ISCHEMIA ABNORMAL ECG WHEN COMPARED WITH ECG OF 04-OCT-2016 22:39, MINIMAL CRITERIA FOR ANTERIOR INFARCT ARE NOW PRESENT INVERTED T WAVES HAVE REPLACED NONSPECIFIC T WAVE ABNORMALITY IN LATERAL LEADS Confirmed by FLORA BLACK MD ([id number]) on 12/11/2016 12:24:27 PM Referred By: Confirmed By:FLORA BLACK MD
== END 2016-12-08 11:58 | disposition home or self-care (01) | DRG 683 ==
LOC: JER 15:53 → JERBED 20:38 → J6S 22:48 → OBSVTOIN 12-04 16:48
PROVIDERS: ADMIT Internal Medicine; ATTEND Internal Medicine
PROC: 3E0F7GC Introduction of Other Therapeutic Substance into Respiratory Tract, Via Natural or Artificial Opening (ICD-10-PCS; principal; 2016-12-04)
DX: N17.9 Acute kidney failure, unspecified (principal); I13.0 Hypertensive heart and chronic kidney disease with heart failure and stage 1 through stage 4 chronic kidney disease, or unspecified chronic kidney disease; I50.22 Chronic systolic (congestive) heart failure; I48.91 Unspecified atrial fibrillation; E78.00 Pure hypercholesterolemia, unspecified; M54.5 Low back pain; F17.210 Nicotine dependence, cigarettes, uncomplicated; N23 Unspecified renal colic; I25.10 Atherosclerotic heart disease of native coronary artery without angina pectoris; R07.81 Pleurodynia; E11.40 Type 2 diabetes mellitus with diabetic neuropathy, unspecified; D63.1 Anemia in chronic kidney disease; E86.0 Dehydration; J44.9 Chronic obstructive pulmonary disease, unspecified; G47.09 Other insomnia; E11.22 Type 2 diabetes mellitus with diabetic chronic kidney disease; N18.9 Chronic kidney disease, unspecified; Z95.1 Presence of aortocoronary bypass graft; Z95.810 Presence of automatic (implantable) cardiac defibrillator; Z79.4 Long term (current) use of insulin; Z99.81 Dependence on supplemental oxygen
CPT/HCPCS: 36415; 71020-TC; 71101-TC; 76775-TC; 80048; 80053; 81003; 81015; 82436; 82570; 83735; 84100; 84133; 84156; 84300; 84540; 85025; 87086; 93005; 93010; 97116-GP; 97161-GP; 99283-25; G0378; G0463-25

== ENCOUNTER 2017-01-09 23:45 | Emergency (ER) | payer OTHER ==
[2017-01-10 00:21] VITALS: BP 157/81; PULSE 99; TEMP 97.5; BMI 24.2
[2017-01-10] MEDS ORDERED: KETOROLAC TROMETHAMINE 60 MG/2 ML VIAL IM ONE (00:28)
[2017-01-10] MEDS ORDERED: diazePAM 5 MG TABLET PO ONE (00:28)
[2017-01-10] MEDS ORDERED: KETOROLAC TROMETHAMINE 60 MG/2 ML VIAL ONE (00:33)
[2017-01-10] MEDS ORDERED: diazePAM 5 MG TABLET ONE (00:34)
--- NOTE | 2017-01-10 01:05 | PDOC ---
History of Present Illness <Jony Padron - Last Filed: 01/10/17 01:15> - General History Source: Patient Exam Limitations: No Limitations - History of Present Illness Initial Comments: 01/10/17 01:47 The patient is a 61 year old male, with a significant past medical history of CAD s/p cabg 2-3 years ago, atrial fibrillation, congestive heart failure, diabetes mellitus with neuropathy, hypertension, and hyperlipidemia, who presents to the emergency department complaining of lower back pain beginning this morning. The patient reports he began experiencing lower back pain this morning upon waking up. The patient describes the lower back pain as worse while sitting up. The patient states he was recently admitted to the hospital on November 30 at [facility] for a similar complaint of back pain. The patient reports he took an Oxycodone approx 6 hours ago for the pain without relief. The patient denies recent fall or trauma. He denies recent heavy lifting. He denies any recent fevers, chills, headache or dizziness. He denies any recent nausea, vomit, diarrhea or constipation. He denies any recent chest pain. No associated numbness/tingling/weakness. he tried a lidocain patch without significant improvement. pt denies any urinary or bowel incontinence. Allergies: fish containing products, Codeine, Gabapentin Primary Care Physician: Dr. Kanu Truong <Del Ho - Last Filed: 01/10/17 01:48> - General Chief Complaint: Back Pain Stated Complaint: CHEST PAIN Time Seen by Provider: 01/10/17 00:10 Past History - Past Medical History Anemia: No Asthma: No Cancer: No Cardiac Disorders: Yes (cabg, 3v 2-3 year prior,AFIB) CVA: No COPD: Yes CHF: Yes (with pleural effusion) Dementia: No Diabetes: Yes (with neuropathy) GI Disorders: No Disorders: No HTN: Yes Hypercholesterolemia: Yes Liver Disease: No Seizures: No Thyroid Disease: No - Surgical History Abdominal Surgery: No Appendectomy: No Cardiac Surgery: Yes (CABG x 3, implanted defib) Cholecystectomy: No Lung Surgery: No Neurologic Surgery: No Orthopedic Surgery: No - Immunization History Td Vaccination: Yes (unknown) Immunization Up to Date: Yes - Suicide/Smoking/Psychosocial Hx Smoking Status: Yes Smoking History: Current every day smoker Years of Tobacco Use: 40 Have you smoked in the past 12 months: Yes Number of Cigarettes Smoked Daily: 6 If you are a former smoker, when did you quit?: 06/20/16 Cigars Per Day: 0 Information on smoking cessation initiated: No 'Breaking Loose' booklet given: 07/04/16 Hx Alcohol Use: No Drug/Substance Use Hx: Yes (none x years) Substance Use Type: Cocaine Hx Substance Use Treatment: Yes (DETOX NEW FOCUS) <Jony Padron - Last Filed: 01/10/17 01:15> <Del Ho - Last Filed: 01/10/17 01:48> - Past Medical History Allergies/Adverse Reactions: Allergies Allergy/AdvReac Type Severity Reaction Status Date / Time Fish Containing Products Allergy Verified 12/05/16 09:35 codeine AdvReac Intermediate Vomiting Verified 12/03/16 16:04 gabapentin AdvReac Intermediate dizzy Verified 12/03/16 16:04 Home Medications: Ambulatory Orders Amlodipine Besylate [Norvasc -] 5 mg PO DAILY 06/18/15 Aspirin [Aspirin EC] 81 mg PO DAILY 06/18/15 Budesonide/Formeterol Fumarate [SYMBICORT 160/4.5mcg -] 1 inh PO DAILY 06/18/15 Cholecalciferol (Vitamin D3) [Vitamin D3] 2,000 unit PO DAILY 06/18/15 Cilostazol 50 mg PO DAILY 06/18/15 Clopidogrel Bisulfate [Clopidogrel] 75 mg PO DAILY 06/18/15 Furosemide [Lasix -] 40 mg PO DAILY 06/18/15 Insulin Detemir [Levemir Flextouch] 10 unit SQ PRN PRN 06/18/15 Lisinopril 5 mg PO DAILY 06/18/15 Metformin HCl [Glucophage] 1,000 mg PO BID 06/18/15 Simvastatin [Zocor -] 20 mg PO HS 06/18/15 Zolpidem Tartrate [Ambien] 10 mg PO HS 06/18/15 Carvedilol [Coreg -] 25 mg PO BID #60 tablet 06/20/15 Albuterol 0.083% Nebulizer Rosy [Ventolin 0.083% Nebulizer Soln -] 1 neb NEB QID PRN 02/18/16 Miscellaneous Medical Supply [Glucometer Device] 1 each TD ASDIR 30 Days Miscellaneous Medical Supply [Glucometer Test Strips #100] 1 each TD ASDIR #1 ea 09/04/16 Lidocaine 5% Patch [Lidoderm -] 1 patch TP DAILY #30 patch 12/08/16 Oxycodone HCl/Acetaminophen [Oxycodone-Acetaminophen 10-325] 1 each PO QID #120 tablet MDD 4 12/31/16 Cyclobenzaprine HCl [Flexeril -] 10 mg PO TID PRN #15 tablet 01/10/17 Ibuprofen [Motrin -] 600 mg PO TID PRN #21 tablet 01/10/17 Review of Systems - Review of Systems Comments:: 01/10/17 01:47 Constitutional - Pt denies Fever, Chills, weakness, HEENT: denies vision changes, sore throat Respiratory:Denies cough, hemoptysis Cardiac: denies chest pain, palpitations, light headedness, leg swelling Abd/GI: denies abd pain, nausea, vomiting, blood per rectum, melena, diarrhea : denies dysuria, frequency, discharge Musculskelatal - +Lower back pain. denies joint swelling skin - denies bruising, erythema, rash neurological: denies headache, numbness, focal weakness, tingling, ataxia, weakness hematologic: denies anemia, easy bruising, easy bleeding <Del Ho - Last Filed: 01/10/17 01:48> *Physical Exam - Vital Signs Last Vital Signs Temp Pulse Resp BP Pulse Ox 97.5 F L 99 H 18 157/81 97 01/10/17 00:18 01/10/17 00:18 01/10/17 00:18 01/10/17 00:18 01/10/17 00:18 <Jony Padron - Last Filed: 01/10/17 01:15> - Vital Signs Last Vital Signs Temp Pulse Resp BP Pulse Ox 97.5 F L 99 H 18 157/81 97 01/10/17 00:18 01/10/17 00:18 01/10/17 00:18 01/10/17 00:18 01/10/17 00:18 - Physical Exam Comments: 01/10/17 01:48 GENERAL: The patient is awake, alert, and fully oriented, Nontoxic - in no acute distress. HEAD: Normocephalic, atraumatic. EYES: extraocular movements intact, sclera anicteric, conjunctiva clear. ENT: Normal voice, Moist mucous membranes. NECK: Normal range of motion, supple without lymphadenopathy, JVD, or masses. LUNGS: Breath sounds equal, clear to auscultation bilaterally. No wheezes, no crackles, no rales. HEART: irregular ABDOMEN: Soft, nontender, normoactive bowel sounds. No guarding, no rebound. No masses. EXTREMITIES: Normal range of motion, no edema. No clubbing or cyanosis. No cords, erythema, or tenderness. NEUROLOGICAL: No facial assymetry, Normal speech, normal gait. PSYCH: Normal mood, normal affect. SKIN: Warm, Dry, normal turgor, no rashes or lesions noted. BACK: +Mild lower paraspinal tenderness on left, no midline tenderness on cervical/thoracic/lumbar spine <Del Ho - Last Filed: 01/10/17 01:48> Heart Score/ECG Review - ECG Impressions Comment:: 01/10/17 01:05 Twelve-lead EKG was performed and reviewed by me. Irregularly irregular Left axis deviation Left ventricular hypertrophy No significant changes when compared with EKG dated 12/03/2016 <Jony Padron - Last Filed: 01/10/17 01:15> ED Treatment Course - Medications Given in the ED: ED Medications Discontinued Medications Generic Name Dose Route Start Last Admin Trade Name Freq PRN Reason Stop Dose Admin Diazepam 5 mg 01/10/17 00:28 01/10/17 00:43 Valium - PO 01/10/17 00:29 5 mg ONCE ONE Administration Ketorolac Tromethamine 60 mg 01/10/17 00:28 01/10/17 00:43 Toradol Injection - IM 01/10/17 00:29 60 mg ONCE ONE Administration <Jony Padron - Last Filed: 01/10/17 01:15> - Medications Given in the ED: ED Medications Discontinued Medications Generic Name Dose Route Start Last Admin Trade Name Freq PRN Reason Stop Dose Admin Diazepam 5 mg 01/10/17 00:28 01/10/17 00:43 Valium - PO 01/10/17 00:29 5 mg ONCE ONE Administration Ketorolac Tromethamine 60 mg 01/10/17 00:28 01/10/17 00:43 Toradol Injection - IM 01/10/17 00:29 60 mg ONCE ONE Administration <Del Ho - Last Filed: 01/10/17 01:48> Medical Decision Making - Medical Decision Making 01/10/17 01:03 61y M hx of choronic back pain, afib, presents with complaint of atraumatic lower back pain, worse with sitting, mildly improved with lidoderm patch. suspect muscular cause due to positional nature, pt denie any chest pain although it was mentioned in triage - verified by RN that it was a mistake. No neuro symptoms, no urinary or bowel sypmtoms. will treat with toradol and valium will erassess A portion of this note was documented by scribe services under my direction. I have reviewed the details of the note, within reason, and agree with the documentation with the following case summary and management plan written by me 01/10/17 01:15 pt feeling improved will dc wit hpmd fu will giv rx for motrin and flexeril I discussed the physical exam findings, ancillary test results and final diagnoses with the patient. I answered all of the patient's questions. The patient was satisfied with the care received and felt comfortable with the discharge plan and treatment plan. The patient will call their primary care physician within 24 hours to arrange follow-up and will return to the Emergency Department with any new, persistent or worsening symptoms. <Jony Padron - Last Filed: 01/10/17 01:15> *DC/Admit/Observation/Transfer - Discharge Dispostion Admit: No <Jony Padron - Last Filed: 01/10/17 01:15> - Attestations Scribe Attestion: 01/10/17 01:48 Documentation prepared by Del Ho, acting as biomedical equipment technician for Jony Padron MD.. <Del Ho - Last Filed: 01/10/17 01:48> Diagnosis at time of Disposition: Chronic back pain Qualifiers: Back pain location: low back pain Back pain laterality: left Sciatica presence : without sciatica Qualified Code(s): M54.5 - Low back pain - Discharge Dispostion Disposition: HOME Condition at time of disposition: Improved - Prescriptions Prescriptions: Cyclobenzaprine HCl [Flexeril -] 10 mg PO TID PRN #15 tablet PRN Reason: Pain Ibuprofen [Motrin -] 600 mg PO TID PRN #21 tablet PRN Reason: Pain - Referrals Referrals: [facility] [Provider Group] - Patient Instructions Printed Discharge Instructions: DI for Low Back Pain Additional Instructions: Return to the emergency department immediately with ANY new, persistent or worsening symptoms including numbness, tingling, weakness, fevers or any other concerns. Take ibuprofen (600mg) up to three times daily for pain. Take the flexeril as prescribed Apply heat to your sore muscles. You MUST call and follow up with your doctor tomorrow for further evaluation of your symptoms. Your emergency department visit is not complete without a followup with your doctor for reevaluation.. Results were discussed with you. Please make sure your doctor reviews the results of your emergency evaluation.
--- NOTE | 2017-01-16 09:21 | EKG ---
Test Reason : Blood Pressure : / mmHG Vent. Rate : 109 BPM Atrial Rate : 264 BPM P-R Int : 000 ms QRS Dur : 102 ms QT Int : 354 ms P-R-T Axes : 084 -43 123 degrees QTc Int : 476 ms ATRIAL FLUTTER WITH VARIABLE A-V BLOCK LEFT AXIS DEVIATION LEFT VENTRICULAR HYPERTROPHY WITH REPOLARIZATION ABNORMALITY MARKED ST ABNORMALITY, POSSIBLE SEPTAL SUBENDOCARDIAL INJURY ABNORMAL ECG WHEN COMPARED WITH ECG OF 03-DEC-2016 16:04, SIGNIFICANT CHANGES HAVE OCCURRED Confirmed by JEREMI ROLLINS MD ([id number]) on 01/16/2017 9:21:26 AM Referred By: Confirmed By:JEREMI ROLLINS MD
== END 2017-01-10 01:36 | disposition home or self-care (01) ==
LOC: JER 23:45
PROC: 3E0133Z Introduction of Anti-inflammatory into Subcutaneous Tissue, Percutaneous Approach (ICD-10-PCS; principal; 2017-01-09)
DX: M54.5 Low back pain (principal); I10 Essential (primary) hypertension; I25.10 Atherosclerotic heart disease of native coronary artery without angina pectoris; I48.91 Unspecified atrial fibrillation; I50.9 Heart failure, unspecified; E11.40 Type 2 diabetes mellitus with diabetic neuropathy, unspecified; Z79.4 Long term (current) use of insulin; Z79.84 Long term (current) use of oral hypoglycemic drugs; E78.5 Hyperlipidemia, unspecified; F17.210 Nicotine dependence, cigarettes, uncomplicated; Z95.1 Presence of aortocoronary bypass graft; Z91.013 Allergy to seafood; Z88.6 Allergy status to analgesic agent; Z79.82 Long term (current) use of aspirin
CPT/HCPCS: 93005; 93010; 96372; 99282-25

== ENCOUNTER 2017-11-13 14:54 | Inpatient (IN) | payer OTHER ==
--- NOTE | 2017-11-13 16:03 | PDOC ---
History of Present Illness - General Chief Complaint: Shortness of Breath Stated Complaint: ASTHMA Time Seen by Provider: 11/13/17 15:38 History Source: Patient Exam Limitations: No Limitations - History of Present Illness Initial Comments: 11/13/17 17:26 The patient is a 62 year old male, with a significant PMH of diabetes, triple bypass, pacemaker, defibrillator and COPD who presents to the emergency department with SOB that began around 1:00 pm. The patient states SOB lasted for about one hour accompanied with chills, cough, constipation , nausea , and shakes. The patient states SOB may be associated with the Kayexalate powder medication he took today at 10:30 am (usually takes liquid form). The patient also mentions he is a current everyday cigarette smoker (2 packs/day for 55 years) and normally on 02 for 2 liters. The patient states he has been short of breath in the past but not this severe. The patient mention symptoms have resolved upon arrival. The patient denies chest pain, headache and dizziness. Denies fever, sweat, vomit, and diarrhea Denies dysuria, frequency, urgency and hematuria. Allergies: codeine, garbapentin Past surgical history: CABG x3 Social history: No reported PCP: Kanu Truong Past History - Past Medical History Allergies/Adverse Reactions: Allergies Allergy/AdvReac Type Severity Reaction Status Date / Time Fish Containing Products Allergy Verified 11/13/17 15:37 codeine AdvReac Intermediate Vomiting Verified 11/13/17 15:37 gabapentin AdvReac Intermediate dizzy Verified 11/13/17 15:37 Home Medications: Ambulatory Orders Amlodipine Besylate [Norvasc -] 5 mg PO DAILY 06/18/15 Aspirin [Aspirin EC] 81 mg PO DAILY 06/18/15 Budesonide/Formeterol Fumarate [SYMBICORT 160/4.5mcg -] 1 inh PO DAILY 06/18/15 Cilostazol 50 mg PO DAILY 06/18/15 Clopidogrel Bisulfate [Clopidogrel] 75 mg PO DAILY 06/18/15 Furosemide [Lasix -] 40 mg PO DAILY 06/18/15 Insulin Detemir [Levemir Flextouch] 10 unit SQ PRN PRN 06/18/15 Lisinopril 5 mg PO DAILY 06/18/15 Simvastatin [Zocor -] 20 mg PO HS 06/18/15 Zolpidem Tartrate [Ambien] 10 mg PO HS 06/18/15 Carvedilol [Coreg -] 25 mg PO BID #60 tablet 06/20/15 Albuterol 0.083% Nebulizer Rosy [Ventolin 0.083% Nebulizer Soln -] 1 neb NEB QID PRN 02/18/16 Lidocaine 5% Patch [Lidoderm -] 1 patch TP DAILY #30 patch 12/08/16 Cyclobenzaprine HCl [Flexeril -] 10 mg PO TID PRN #15 tablet 01/10/17 Psyllium [Metamucil (Sugar-Free) -] 5.85 gm PO BID #1 bottle 06/02/17 Cholecalciferol (Vitamin D3) [Vitamin D3] 2,000 unit PO DAILY #30 capsule Blood Sugar Diagnostic [Glucose Test Strip] 1 each MC QID PRN #100 strip MDD 4 07/28/17 Lactulose (Oral Use) [Cephulac -] 20 gm PO BID #1 bottle 07/28/17 Miscellaneous Medical Supply [Glucometer Device] 1 each TD ASDIR 30 Days ea Miscellaneous Medical Supply [Glucometer Test Strips #100] 1 each TD ASDIR #1 ea 07/28/17 Docusate Sodium [Colace -] 100 mg PO TID #90 capsule 09/22/17 Ferrous Sulfate [Feosol] 325 mg PO DAILY 09/22/17 Oxycodone HCl/Acetaminophen [Percocet 10-325 mg Tablet] 1 each PO QID PRN #120 tablet MDD 4 10/23/17 Anemia: No Asthma: No Cancer: No Cardiac Disorders: Yes (cabg, 3v 2-3 year prior,AFIB) CVA: No COPD: Yes CHF: Yes (with pleural effusion) Dementia: No Diabetes: Yes (with neuropathy) GI Disorders: No Disorders: No HTN: Yes Hypercholesterolemia: Yes Liver Disease: No Seizures: No Thyroid Disease: No - Surgical History Abdominal Surgery: No Appendectomy: No Cardiac Surgery: Yes (CABG x 3, implanted defib and pacer) Cholecystectomy: No Lung Surgery: No Neurologic Surgery: No Orthopedic Surgery: No - Immunization History Td Vaccination: Yes (unknown) Immunization Up to Date: Yes - Suicide/Smoking/Psychosocial Hx Smoking Status: Yes Smoking History: Current every day smoker Years of Tobacco Use: 40 Have you smoked in the past 12 months: Yes Number of Cigarettes Smoked Daily: 3 If you are a former smoker, when did you quit?: 06/20/16 Cigars Per Day: 0 Information on smoking cessation initiated: No 'Breaking Loose' booklet given: 07/04/16 Hx Alcohol Use: (occasional) Drug/Substance Use Hx: (cocaine) Substance Use Type: Cocaine Hx Substance Use Treatment: Yes (DETOX NEW FOCUS) Review of Systems - Review of Systems Able to Perform ROS?: Yes Comments:: 11/13/17 17:26 Constitutional - Chills resolved. Denies Fever, weakness, HEENT: denies vision changes, sore throat Respiratory:+SOB, cough resolved. Denies hemoptysis Cardiac: denies chest pain, palpitations, light headedness, leg swelling Abd/GI:+ Nausea resolved. Denies abd pain, vomiting, blood per rectum, melena, diarrhea : denies dysuria, frequency, discharge Musculskelatal - denies back pain, joint swelling skin - denies bruising, erythema, rash neurological: denies headache, numbness, focal weakness, tingling, ataxia, weakness hematologic: denies anemia, easy bruising, easy bleeding *Physical Exam - Vital Signs Last Vital Signs Temp Pulse Resp BP Pulse Ox 98.8 F 61 20 147/66 97 11/13/17 15:20 11/13/17 15:20 11/13/17 15:20 11/13/17 15:20 11/13/17 15:20 - Physical Exam Comments: 11/13/17 16:25 GENERAL: The patient is awake, alert, and fully oriented, Nontoxic - in no acute distress. HEAD: Normocephalic, atraumatic. EYES: extraocular movements intact, sclera anicteric, conjunctiva clear. ENT: Normal voice, Moist mucous membranes. NECK: Normal range of motion, supple LUNGS: Breath sounds equal, clear to auscultation bilaterally. No wheezes, no rhonchi, no rales. HEART: irregularly irregular ABDOMEN: Soft, nontender, No guarding, no rebound. . No CVA tenderness EXTREMITIES: Normal range of motion, no edema. neg homans sign no calf tenderness. NEUROLOGICAL: No facial assymetry, Normal speech, PSYCH: Normal mood, normal affect. SKIN: Warm, Dry, normal turgor, Heart Score/ECG Review - ECG Impressions Comment:: 11/13/17 17:24 Twelve-lead EKG was performed and reviewed by me. Ventricular paced rhythm No signs of acute OH Via sgarbossa criteria ED Treatment Course - LABORATORY CBC & Chemistry Diagram: 11/13/17 16:45 11/13/17 16:45 Medical Decision Making - Medical Decision Making 11/13/17 15:58 62y M hx of dm, copd 2L NC at baseline, htn, cad s/p cabg sp pm, presents with complain to sob lasting approx 1 hr starting around 1pm. Pt was noted to be shaking, chills, sweaty and was nauesas, starting a few hrs after taking a powder form of kayexalate. Pt denies any cp, vomiting, abd pain, new coughing, diarrhea melena, bpr. 80pack year smoking history ddx - copd, pe, acs will ck labs, dimer, cxr, ekg, trop will reassess pt had an episdoe of sob/hypoxia with minimal exertion --> sat from 96 on 2L to 86% 11/13/17 17:50 labs reviewed approx at baseline awaiting 2nd trop will dc with pmd fu 11/13/17 18:00 pts cxr clear pts dimer elevated to 3000 concern for PE - but unabel to do CTA due to CKD case daniel truong agrees with concern for PE in light of his symtoms and elevated dimer will admit for further management will start heparin will daniel cardiology (kitty) and pulm (miriam) will admit to tele for further managment Case discussed in detail with admitting physician including history, physical exam and ancillary studies. Admitting physician has assumed care for the patient, will follow all pending diagnostics and will complete the evaluation and treatment. CRITICAL CARE DOCUMENTATION: I spent ~35 minutes of Critical Care time, excluding separately billable procedures, involving high complexity decision making to assess, manipulate and support vital system function(s) to treat single or multiple vital organ system failure and/or to prevent further life threatening deterioration of the patient' s condition. 11/13/17 18:32 case daniel shaffer agree with admission for further mangaement of sob 11/13/17 18:52 case daniel tang - agree with management recommends ct chest w/o contrast to r/o other causes of sob *DC/Admit/Observation/Transfer Diagnosis at time of Disposition: SOB (shortness of breath) Chronic kidney disease (CKD) Qualifiers: Chronic kidney disease stage: unspecified stage Qualified Code(s): N18.9 - Chronic kidney disease, unspecified - Discharge Dispostion Condition at time of disposition: Guarded Decision to Admit order: Yes - Referrals Referrals: Kanu Truong MD [Primary Care Provider] - - Patient Instructions - Post Discharge Activity
[2017-11-13 17:05] LABS: BASO % 0.5 % (0-2.0); EOS % 0.5 % (0-4.5); HEMATOCRIT 27.9 % (35.4-49); HEMOGLOBIN 9.4 GM/dL (11.7-16.9); LYMPH % 1.8 % (8-40); MCH 31.4 pg (25.7-33.7); MCHC 33.6 g/dl (32.0-35.9); MEAN CELL VOLUME 93.4 fl (80-96); MEAN PLT VOLUME 8.2 fl (7.5-11.1); MONO % 2.4 % (3.8-10.2); NEUT % 94.8 % (42.8-82.8); PLATELET COUNT 163 K/MM3 (134-434); RBC 2.99 M/mm3 (4.00-5.60); RDW 16.6 % (11.9-15.9); WHITE BLOOD COUNT 12.7 K/mm3 (4.0-10.0)
[2017-11-13 17:32] LABS: ALBUMIN 3.4 g/dl (3.4-5.0); ANION GAP 9 (8-16); BLOOD UREA NITROGEN 46 mg/dL (7-18); CALCIUM 8.7 mg/dL (8.5-10.1); CHLORIDE 101 mmol/L (98-107); CO2 30 mmol/L (21-32); GLUCOSE,RANDOM 204 mg/dL (74-106); POTASSIUM 4.3 mmol/L (3.5-5.1); SODIUM 140 mmol/L (136-145)
[2017-11-13 17:32] LABS: INR 1.26 (0.83-1.09); PROTHROMBIN TIME (PATIENT) 14.2 SEC (9.7-13.0)
[2017-11-13 17:37] LABS: ALK PHOS 94 U/L (45-117); BILIRUBIN,TOTAL 0.6 mg/dL (0.2-1.0); CREATININE 2.6 mg/dL (0.7-1.3); SGOT/AST 16 U/L (15-37); SGPT/ALT 12 U/L (12-78)
[2017-11-13 18:00] LABS: URINE APPEARANCE CLEAR; URINE BILIRUBIN NEGATIVE (<2.0 mg/dL); URINE COLOR YELLOW; URINE GLUCOSE (UA) NEGATIVE (NEGATIVE); URINE KETONE NEGATIVE (NEGATIVE); URINE LEUK ESTERASE NEGATIVE (NEGATIVE); URINE NITRITE NEGATIVE (NEGATIVE)
[2017-11-13 18:04] LABS: URINE PROTEIN 2+ (NEGATIVE)
[2017-11-13 18:08] LABS: URINE HYALINE CAST 3 /lpf; URINE MUCUS RARE
[2017-11-13] MEDS ORDERED: HEPARIN NA (PORCINE) 5,000 UNITS/ML 1ML VIAL IVPUSH ONE (18:10)
[2017-11-13] MEDS ORDERED: HEPARIN INFUSION - 25,000 UNITS/500 ML INFUS.BAG IVPB SCH (18:30)
[2017-11-13 19:18] LABS: ANISOCYTOSIS 1+; MACROCYTOSIS 1+
[2017-11-13 19:19] LABS: PLATELET ESTIMATE ADEQUATE
[2017-11-13] MEDS ORDERED: HEPARIN INFUSION - 25,000 UNITS/500 ML INFUS.BAG IVPB ONE (19:23)
[2017-11-13] MEDS ORDERED: HEPARIN NA (PORCINE) 5,000 UNITS/ML 1ML VIAL ONE (19:39)
--- NOTE | 2017-11-13 20:25 | HP ---
Admitting History and Physical - Admission Chief Complaint: shortness of breath History of Present Illness: 62 yo male presented to ED with shortness of breath. No chest pain, no leg swelling. Has had increased potassium due to CRI, for which he had been taking ? kayexalate at home. Does have oxygen at home as well. In ID noted to have creatinine of 2.6 (about baseline), hgb 9.4 (last year in hospital hgb 8.5), with elevated d-dimers. With elevated d-dimers possiblility that a PE is present, but due to elevated creatinine cannot have CT of chest for PE protocol. Started on heparin in ED for possible PE and will need V/Q scan. Currently patient oxygen saturation OK on oxygen. Feels OK when he is sitting. History Source: Patient, Medical Record - Past Medical History Cardiovascular: Yes: AFIB (after CABG briefly; not on AC), CAD, CHF, HTN Pulmonary: Yes: COPD, O2 Dependent Endocrine: Yes: Diabetes Mellitus - Past Surgical History Past Surgical History: Yes: AICD, CABG - Smoking History Smoking history: Current every day smoker Have you smoked in the past 12 months: Yes Aproximately how many cigarettes per day: 3 If you are a former smoker, when did you quit?: 06/20/16 - Alcohol/Substance Use Hx Alcohol Use: (occasional) History of Substance Use: reports: None - Social History ADL: Independent History of Recent Travel: No Home Medications - Allergies Allergies/Adverse Reactions: Allergies Allergy/AdvReac Type Severity Reaction Status Date / Time Fish Containing Products Allergy Verified 11/13/17 15:37 codeine AdvReac Intermediate Vomiting Verified 11/13/17 15:37 gabapentin AdvReac Intermediate dizzy Verified 11/13/17 15:37 - Home Medications Home Medications: Ambulatory Orders Amlodipine Besylate [Norvasc -] 5 mg PO DAILY 06/18/15 Aspirin [Aspirin EC] 81 mg PO DAILY 06/18/15 Budesonide/Formeterol Fumarate [SYMBICORT 160/4.5mcg -] 1 inh PO DAILY 06/18/15 Cilostazol 50 mg PO DAILY 06/18/15 Clopidogrel Bisulfate [Clopidogrel] 75 mg PO DAILY 06/18/15 Furosemide [Lasix -] 40 mg PO DAILY 06/18/15 Insulin Detemir [Levemir Flextouch] 10 unit SQ PRN PRN 06/18/15 Lisinopril 5 mg PO DAILY 06/18/15 Simvastatin [Zocor -] 20 mg PO HS 06/18/15 Zolpidem Tartrate [Ambien] 10 mg PO HS 06/18/15 Carvedilol [Coreg -] 25 mg PO BID #60 tablet 06/20/15 Albuterol 0.083% Nebulizer Rosy [Ventolin 0.083% Nebulizer Soln -] 1 neb NEB QID PRN 02/18/16 Lidocaine 5% Patch [Lidoderm -] 1 patch TP DAILY #30 patch 12/08/16 Cyclobenzaprine HCl [Flexeril -] 10 mg PO TID PRN #15 tablet 01/10/17 Psyllium [Metamucil (Sugar-Free) -] 5.85 gm PO BID #1 bottle 06/02/17 Cholecalciferol (Vitamin D3) [Vitamin D3] 2,000 unit PO DAILY #30 capsule Blood Sugar Diagnostic [Glucose Test Strip] 1 each MC QID PRN #100 strip MDD 4 07/28/17 Lactulose (Oral Use) [Cephulac -] 20 gm PO BID #1 bottle 07/28/17 Miscellaneous Medical Supply [Glucometer Device] 1 each TD ASDIR 30 Days ea Miscellaneous Medical Supply [Glucometer Test Strips #100] 1 each TD ASDIR #1 ea 07/28/17 Docusate Sodium [Colace -] 100 mg PO TID #90 capsule 09/22/17 Ferrous Sulfate [Feosol] 325 mg PO DAILY 09/22/17 Oxycodone HCl/Acetaminophen [Percocet 10-325 mg Tablet] 1 each PO QID PRN #120 tablet MDD 4 10/23/17 Family Disease History - Family Disease History Family Disease History: Heart Disease: Father (etoh), Mother (, cva), Other: Brother (alive - Ramírez - hx etoh), Sister (five - alive - no medical problems), Son (two adults - no problems) Review of Systems - Review of Systems Constitutional: denies: Fever, Loss of Appetite Eyes: reports: No Symptoms HENT: denies: Difficult Swallowing, Epistaxis Neck: denies: Pain on Movement, Stiffness Cardiovascular: denies: Chest Pain Respiratory: reports: SOB, SOB on Exertion. denies: Cough Gastrointestinal: denies: Abdominal Pain, Diarrhea, Melena, Nausea, Vomiting Genitourinary: denies: Burning, Discharge, Dysuria Physical Examination Vital Signs: Vital Signs Temperature 98.8 F 11/13/17 15:20 Pulse Rate 61 11/13/17 15:20 Respiratory Rate 20 11/13/17 15:20 Blood Pressure 147/66 11/13/17 15:20 O2 Sat by Pulse Oximetry (%) 97 11/13/17 15:20 Constitutional: Yes: No Distress, Calm Eyes: Yes: Conjunctiva Clear, EOM Intact, PERRL HENT: Yes: Atraumatic, Normocephalic Neck: Yes: Supple, Trachea Midline Cardiovascular: Yes: Regular Rate and Rhythm, S1, S2. No: Murmur Respiratory: Yes: Diminished (bilaterally) Gastrointestinal: Yes: Normal Bowel Sounds, Soft. No: Distention, Tenderness Edema: No Neurological: Yes: Alert, Oriented Labs: CBC, BMP 11/13/17 16:45 11/13/17 16:45 Imaging - Results Chest X-ray: Image Reviewed (?mild congestive changes (post-op changes/ AICD present)) Problem List - Problems (1) Shortness of breath Assessment/Plan: -with hypoxia, may be PE, so to get V/Q scan (will have to wait until test can be run, as not run over the weekends) and started on heparin drip Code(s): R06.02 - SHORTNESS OF BREATH (2) Chronic kidney disease (CKD) Assessment/Plan: -symptoms could be from fluid overload from renal insufficiency, so will get CT chest without contrast for further evaluation -start IV lasix (takes PO at home) Code(s): N18.9 - CHRONIC KIDNEY DISEASE, UNSPECIFIED Qualifiers: Chronic kidney disease stage: unspecified stage Qualified Code(s): N18.9 - Chronic kidney disease, unspecified (3) COPD (chronic obstructive pulmonary disease) Assessment/Plan: -cont spiriva and albuterol, cont O2 Code(s): J44.9 - CHRONIC OBSTRUCTIVE PULMONARY DISEASE, UNSPECIFIED (4) Coronary artery disease Assessment/Plan: -cont ASA, statin, b-christian, GREGG-inh Code(s): I25.10 - ATHSCL HEART DISEASE OF [place]ERVATION CORONARY ARTERY W/O ANG PCTRS Qualifiers: Coronary Disease-Associated Artery/Lesion type: bypass graft, other Associated angina: with other forms of angina Qualified Code(s): I25.798 - Atherosclerosis of other coronary artery bypass graft(s) with other forms of angina pectoris (5) Diabetes Assessment/Plan: -sliding scale insulin, Levemir Code(s): E11.9 - TYPE 2 DIABETES MELLITUS WITHOUT COMPLICATIONS Qualifiers: Diabetes mellitus type: type 2 Diabetes mellitus complication detail: with chronic kidney disease (6) HTN (hypertension) Assessment/Plan: -cont b-christian, Gregg-inh, norvasc Code(s): I10 - ESSENTIAL (PRIMARY) HYPERTENSION Qualifiers: Hypertension type: essential hypertension Qualified Code(s): I10 - Essential (primary) hypertension (7) Low back pain Assessment/Plan: on chronic pain medication and prn muscle relaxant Code(s): M54.5 - LOW BACK PAIN
[2017-11-13] MEDS ORDERED: ZOLPIDEM TARTRATE 5 MG TABLET PO SCH (22:00)
[2017-11-13] MEDS: LACTULOSE 20 GM/30 ML UDC (FOR ORAL USE ONLY) PO SCH (22:47)
[2017-11-13] MEDS: CARVEDILOL 25 MG TABLET (FP) PO SCH (22:48)
[2017-11-13] MEDS: DOCUSATE SODIUM 100 MG CAPSULE (FP) PO SCH (22:48)
[2017-11-13] MEDS: INSULIN (LEVEMIR) 100 UNITS/ML UNITS SQ SCH (22:49)
[2017-11-13] MEDS: PSYLLIUM 5.85 GM PACKET PO SCH (22:50)
[2017-11-13] MEDS: INSULIN SLIDING SCALE (NOVOLOG) 1 VIAL SQ SCH (22:50)
[2017-11-13] MEDS: LIDOCAINE PATCH REMOVAL MC SCH (22:50)
[2017-11-13] MEDS: ATORVASTATIN CA 10 MG TABLET (FP) PO SCH (22:50)
[2017-11-13] MEDS: oxyCODONE HCL 5 MG TABLET PO PRN (22:51)
[2017-11-13] MEDS: ACETAMINOPHEN 325 MG TABLET (FP) PO PRN (22:52)
[2017-11-14] MEDS: DOCUSATE SODIUM 100 MG CAPSULE (FP) PO SCH ×3 (06:24→22:22)
[2017-11-14] MEDS: INSULIN SLIDING SCALE (NOVOLOG) 1 VIAL SQ SCH ×4 (06:24→23:15)
[2017-11-14 07:23] LABS: BASO % 0.2 % (0-2.0); HEMATOCRIT 25.1 % (35.4-49); HEMOGLOBIN 8.7 GM/dL (11.7-16.9); LYMPH % 4.5 % (8-40); MCH 32.4 pg (25.7-33.7); MCHC 34.8 g/dl (32.0-35.9); MEAN PLT VOLUME 8.8 fl (7.5-11.1); MONO % 4.4 % (3.8-10.2); NEUT % 90.9 % (42.8-82.8); PLATELET COUNT 127 K/MM3 (134-434); RDW 16.4 % (11.9-15.9); WHITE BLOOD COUNT 9.6 K/mm3 (4.0-10.0)
[2017-11-14 07:46] LABS: ANION GAP 6 (8-16); BILIRUBIN,TOTAL 0.4 mg/dL (0.2-1.0); BLOOD UREA NITROGEN 48 mg/dL (7-18); CALCIUM 8.3 mg/dL (8.5-10.1); CHLORIDE 102 mmol/L (98-107); CO2 34 mmol/L (21-32); CREATININE 2.4 mg/dL (0.7-1.3); GLUCOSE,RANDOM 113 mg/dL (74-106); POTASSIUM 3.9 mmol/L (3.5-5.1); SGOT/AST 12 U/L (15-37); SGPT/ALT 12 U/L (12-78); SODIUM 142 mmol/L (136-145); TOT PROT 6.6 g/dl (6.4-8.2)
[2017-11-14 07:47] LABS: ALK PHOS 83 U/L (45-117)
[2017-11-14] MEDS ORDERED: HEPARIN NA (PORCINE) 5,000 UNITS/ML 1ML VIAL IVPUSH PRN ×2 (08:59)
--- NOTE | 2017-11-14 09:03 | EKG ---
Test Reason : Blood Pressure : / mmHG Vent. Rate : 060 BPM Atrial Rate : 267 BPM P-R Int : 000 ms QRS Dur : 198 ms QT Int : 528 ms P-R-T Axes : 000 -86 082 degrees QTc Int : 528 ms Ventricular-paced rhythm ABNORMAL ECG WHEN COMPARED WITH ECG OF 10-JAN-2017 00:00, ELECTRONIC VENTRICULAR PACEMAKER HAS REPLACED ATRIAL FLUTTER VENT. RATE HAS DECREASED BY 49 BPM Confirmed by SOFIA PATTERSON, FLORA ([id number]) on 11/14/2017 9:02:55 AM Referred By: Confirmed By:FLORA BLACK MD
[2017-11-14] MEDS: CARVEDILOL 25 MG TABLET (FP) PO SCH ×2 (09:27→22:22)
[2017-11-14] MEDS: CHOLECALCIFEROL (VITAMIN D3) 1,000 UNIT TABLET (FP) PO SCH (09:27)
[2017-11-14] MEDS: LISINOPRIL 5 MG TABLET (FP) PO SCH (09:27)
[2017-11-14] MEDS: amLODIPine BESYLATE 5 MG TABLET (FP) PO SCH (09:27)
[2017-11-14] MEDS: LACTULOSE 20 GM/30 ML UDC (FOR ORAL USE ONLY) PO SCH ×2 (09:27→22:22)
[2017-11-14] MEDS: FERROUS SO4 325 MG TABLET (FP) PO SCH (09:27)
[2017-11-14] MEDS: CLOPIDOGREL BISULFATE 75 MG TABLET (FP) PO SCH (09:28)
[2017-11-14] MEDS: PSYLLIUM 5.85 GM PACKET PO SCH ×2 (09:28→22:22)
[2017-11-14] MEDS: LIDOCAINE 5% TOPICAL PATCH TP SCH (09:28)
[2017-11-14] MEDS: HEPARIN - 25,000 UNIT in SODIUM CHLORIDE 495 ML IV SCH (09:28)
[2017-11-14] MEDS: FUROSEMIDE 40 MG/4 ML INJECTABLE VIAL IVPUSH SCH (09:28)
[2017-11-14] MEDS: ASPIRIN COATED 81 MG TABLET.EC PO SCH (09:28)
[2017-11-14] MEDS: oxyCODONE HCL 5 MG TABLET PO PRN (09:39)
--- NOTE | 2017-11-14 10:01 | CON.CARD ---
Cardiology Consult (text) - Consultation Consultation Note: cc: sob hpi: 62 m hx copd, cabgx3 2012, bio avr 2012, pad s/p b/l sfa occlusions, syst chf s/p medtronic icd, htn, hld, a-tach, here with sob. Had been feeling well until past few days noticed sob. No cp, palps, dizzy, loc, pnd, orthopnea, le edema. Sees me for cardiology. pmh: per hpi psh: cabg, avr, icd social: +tob fam: no premature cad ros: per hpi; no nvd, fever, muscle pain, wt loss, rash, hematuria, gib, nasal congestion, shelton, vision changes meds: Home Medications Medication Instructions Recorded Amlodipine Besylate [Norvasc -] 5 mg PO DAILY 06/18/15 Aspirin [Aspirin EC] 81 mg PO DAILY 06/18/15 Budesonide/Formeterol Fumarate 1 inh PO DAILY 06/18/15 [SYMBICORT 160/4.5mcg -] Cilostazol 50 mg PO DAILY 06/18/15 Clopidogrel Bisulfate [Clopidogrel] 75 mg PO DAILY 06/18/15 Furosemide [Lasix -] 40 mg PO DAILY 06/18/15 Insulin Detemir [Levemir Flextouch] 10 unit SQ PRN PRN 06/18/15 Lisinopril 5 mg PO DAILY 06/18/15 Simvastatin [Zocor -] 20 mg PO HS 06/18/15 Zolpidem Tartrate [Ambien] 10 mg PO HS 06/18/15 Carvedilol [Coreg -] 25 mg PO BID #60 tablet 06/20/15 Albuterol 0.083% Nebulizer Rosy 1 neb NEB QID PRN 02/18/16 [Ventolin 0.083% Nebulizer Soln -] Lidocaine 5% Patch [Lidoderm -] 1 patch TP DAILY #30 patch 12/08/16 Cyclobenzaprine HCl [Flexeril -] 10 mg PO TID PRN #15 tablet 01/10/17 Psyllium [Metamucil (Sugar-Free) -] 5.85 gm PO BID #1 bottle 06/02/17 Cholecalciferol (Vitamin D3) 2,000 unit PO DAILY #30 capsule 06/25/17 [Vitamin D3] Blood Sugar Diagnostic [Glucose 1 each MC QID PRN #100 strip MDD 4 04/24/18 Test Strip] Lactulose (Oral Use) [Cephulac -] 20 gm PO BID #1 bottle 07/28/17 Miscellaneous Medical Supply 1 each TD ASDIR 30 Days ea 07/28/17 [Glucometer Device] Miscellaneous Medical Supply 1 each TD ASDIR #1 ea 07/28/17 [Glucometer Test Strips #100] Docusate Sodium [Colace -] 100 mg PO TID #90 capsule 09/22/17 Ferrous Sulfate [Feosol] 325 mg PO DAILY 09/22/17 Oxycodone HCl/Acetaminophen 1 each PO QID PRN #120 tablet MDD 4 10/23/17 [Percocet 10-325 mg Tablet] pe: Vital Signs Period Temp Pulse Resp BP Sys/El Pulse Ox Last 24 Hr 97.5 F-98.9 F 61-83 20-22 135-157/66-90 97-98 nad no jvd rrr s1s2 no mrg cta bl nl eff aaox3 no le e/c/c abd nt nd pos bs no jaundice diaphoresis +dp pt no carotid bruits Laboratory Last Values WBC 9.6 K/mm3 (4.0-10.0) 11/14/17 05:48 RBC 2.70 M/mm3 (4.00-5.60) L 11/14/17 05:48 Hgb 8.7 GM/dL (11.7-16.9) L 11/14/17 05:48 Hct 25.1 % (35.4-49) L 11/14/17 05:48 MCV 93.0 fl (80-96) 11/14/17 05:48 MCH 32.4 pg (25.7-33.7) 11/14/17 05:48 MCHC 34.8 g/dl (32.0-35.9) 11/14/17 05:48 RDW 16.4 % (11.9-15.9) H 11/14/17 05:48 Plt Count 127 K/MM3 (134-434) L D 11/14/17 05:48 MPV 8.8 fl (7.5-11.1) 11/14/17 05:48 Absolute Neuts (auto) 8.8 # 11/14/17 05:48 Total Counted 100 11/13/17 16:45 Neutrophils % 90.9 % (42.8-82.8) H 11/14/17 05:48 Neutrophils % (Manual) 94.0 % (42.8-82.8) H 11/13/17 16:45 Band Neutrophils % 3.0 % 11/13/17 16:45 Lymphocytes % 4.5 % (8-40) L D 11/14/17 05:48 Lymphocytes % (Manual) 2.0 % (8-40) L 11/13/17 16:45 Monocytes % 4.4 % (3.8-10.2) D 11/14/17 05:48 Monocytes % (Manual) 1 % (3.8-10.2) L 11/13/17 16:45 Eosinophils % 0.0 % (0-4.5) D 11/14/17 05:48 Basophils % 0.2 % (0-2.0) 11/14/17 05:48 Nucleated RBC % 0 % (0-0) 11/14/17 05:48 Differential Comment Man diff performed 11/13/17 16:45 Platelet Estimate Adequate 11/13/17 16:45 Platelet Comment 11/13/17 16:45 Polychromasia 1+ 11/13/17 16:45 Anisocytosis 1+ 11/13/17 16:45 Macrocytosis 1+ 11/13/17 16:45 PT with INR 14.20 SEC (9.7-13.0) H 11/13/17 17:00 INR 1.26 (0.83-1.09) H 11/13/17 17:00 PTT (Actin FS) 47.9 SECONDS (25.2-36.5) H 11/14/17 05:48 D-Dimer 3883 ng/ml (0-500) H 11/13/17 17:00 Sodium 142 mmol/L (136-145) 11/14/17 05:48 Potassium 3.9 mmol/L (3.5-5.1) 11/14/17 05:48 Chloride 102 mmol/L (98-107) 11/14/17 05:48 Carbon Dioxide 34 mmol/L (21-32) H 11/14/17 05:48 Anion Gap 6 (8-16) L 11/14/17 05:48 BUN 48 mg/dL (7-18) H 11/14/17 05:48 Creatinine 2.4 mg/dL (0.7-1.3) H 11/14/17 05:48 Creat Clearance w eGFR 27.57 (>60) 11/14/17 05:48 POC Glucometer 155 UNITS (80-120) 11/14/17 05:29 Random Glucose 113 mg/dL (74-106) H D 11/14/17 05:48 Calcium 8.3 mg/dL (8.5-10.1) L 11/14/17 05:48 Total Bilirubin 0.4 mg/dL (0.2-1.0) 11/14/17 05:48 AST 12 U/L (15-37) L D 11/14/17 05:48 ALT 12 U/L (12-78) 11/14/17 05:48 Alkaline Phosphatase 83 U/L (45-117) D 11/14/17 05:48 Creatine Kinase 41 IU/L (39-308) 11/14/17 05:48 Troponin I 0.03 ng/ml (0.00-0.05) 11/14/17 05:48 Total Protein 6.6 g/dl (6.4-8.2) 11/14/17 05:48 Albumin 3.0 g/dl (3.4-5.0) L 11/14/17 05:48 Urine Color Yellow 11/13/17 17:47 Urine Appearance Clear 11/13/17 17:47 Urine pH 5.0 (5.0-8.0) 11/13/17 17:47 Ur Specific [place] 1.017 (1.001-1.035) 11/13/17 17:47 Urine Protein 2+ (NEGATIVE) H 11/13/17 17:47 Urine Glucose (UA) Negative (NEGATIVE) 11/13/17 17:47 Urine Ketones Negative (NEGATIVE) 11/13/17 17:47 Urine Blood Negative (NEGATIVE) 11/13/17 17:47 Urine Nitrite Negative (NEGATIVE) 11/13/17 17:47 Urine Bilirubin Negative (<2.0 mg/dL) 11/13/17 17:47 Urine Urobilinogen 2.0 mg/dL (0.2-1.0) 11/13/17 17:47 Ur Leukocyte Esterase Negative (NEGATIVE) 11/13/17 17:47 Urine WBC (Auto) 1 /hpf (3-5) 11/13/17 17:47 Urine RBC (Auto) 1 /hpf (0-3) 11/13/17 17:47 Hyaline Casts 3 /lpf 11/13/17 17:47 Urine Mucus Rare 11/13/17 17:47 ecg: [facility] [employer] ct chest: mild chf, eff L>r, left is chronic tele: [employer] echo 06/2015: mild lve, mod-sev dec lvef, mod lae, nl rv size, mild dec rv fcn, mild-mod mr, mild tr, nl avr fcn, rvsp 30-40 echo 06/2016: sev dec lvef, global hk, rv tds, trinity, mod-sev mr, mod tr, rvsp 50- 60 mibi 09/2014: large inf scar, mod anteroapical ischemia, lvef 25% mibi 06/2016 (pers): non-diagnostic STs; large area inferior/inferolateral/ lateral scar; no ischemia; severe LV cavity dilation; global HK with akinesis of inferior/inferolat/lateral allan; EF 16% a/p: 62 m hx copd, cabgx3 2012, bio avr 2012, pad s/p b/l sfa occlusions, syst chf s/p medtronic icd, htn, hld, a-tach, here with sob. acute systolic chf/persistent L effusion: -had been doing well as outpt for awhile, now here with sob, possibly mild vol overload, was on lasix 40 qd as outpt (dose had been lowered due to worsening ckd). -wt up a bit and some congestion on ct chest here, so agree with iv lasix trial -daily wts, chem7, i/os -elevated d-dimer so getting hep gtt until can r/o pe with vq scan. avoiding cta chest 2/2 ckd. cad/hx of CABG 2012 -no recent angina/ischemia -present sx's not suggestive for angina, enzymes neg x 3 -cont prior cad med regimen: deidra, dapt, statin, bb, ccb bio avr: -nl fcn on echo 06/20 mitral regurgitation: -likely functional MR, mild-mod on echo 06/19, then "mod-severe" when here 06/20 with suspected acute chf and pulm pressures up (though at risk for overestimation of MR severity on that echo report) -valve morphology not described (tethered leaflets?) -no murmur on exam -reassess MR severity on echo once pt adequately diuresed, though surgical or clip intervention not indicated/proven for functional MR CKD: -cr similar to recent outpt labs, monitor with lasix pad: -stable, no claudication, cont current cardiac meds s/p icd: -no shocks -routine outpt monitoring htn: -cont home meds hld: -cont statin atach: -minimal episodes seen in past on icd checks -cont bb -monitor tele anemia: -chronic, stable counts here vs baseline -per pmd
--- NOTE | 2017-11-14 10:53 | PN ---
Progress Note, Physician History of Present Illness: Feels the same, still with SOB on exertion. - Current Medication List Current Medications: Active Medications Acetaminophen (Tylenol -) 325 mg PO Q6H PRN PRN Reason: PAIN LEVEL 6-10 WITH OXYCODON Last Admin: 11/13/17 22:52 Dose: 325 mg Albuterol Sulfate (Ventolin 0.083% Nebulizer Soln -) 1 amp NEB QID PRN PRN Reason: SHORT OF BREATH/WHEEZING Amlodipine Besylate (Norvasc -) 5 mg PO DAILY [facility] Last Admin: 11/14/17 09:27 Dose: 5 mg Aspirin (Ecotrin -) 81 mg PO DAILY [facility] Last Admin: 11/14/17 09:28 Dose: 81 mg Atorvastatin Calcium (Lipitor -) 10 mg PO HS [facility] Last Admin: 11/13/17 22:50 Dose: 10 mg Budesonide/Formoterol Fumarate (Symbicort 160/4.5mcg -) 1 puff IH DAILY [facility] Carvedilol (Coreg -) 25 mg PO BID [facility] Last Admin: 11/14/17 09:27 Dose: 25 mg Cholecalciferol (Vitamin D3 -) 2,000 unit PO DAILY [facility] Last Admin: 11/14/17 09:27 Dose: 2,000 unit Cilostazol (Pletal -) 50 mg PO DAILY [facility] Clopidogrel Bisulfate (Plavix -) 75 mg PO DAILY [facility] Last Admin: 11/14/17 09:28 Dose: 75 mg Cyclobenzaprine HCl (Flexeril -) 10 mg PO TID PRN PRN Reason: PAIN Docusate Sodium (Colace -) 100 mg PO TID [facility] Last Admin: 11/14/17 06:24 Dose: 100 mg Ferrous Sulfate (Feosol -) 325 mg PO DAILY [facility] Last Admin: 11/14/17 09:27 Dose: 325 mg Furosemide (Lasix Injection -) 40 mg IVPUSH DAILY [facility] Last Admin: 11/14/17 09:28 Dose: 40 mg Heparin Sodium (Porcine) (Heparin -) 1,000 unit IVPUSH PRN PRN PRN Reason: Heparin Heparin Sodium (Porcine) (Heparin -) 5,000 unit IVPUSH PRN PRN PRN Reason: Heparin Heparin Sodium (Porcine) 25, (000 unit/ Sodium Chloride) 500 mls @ 20 mls/hr IV TITR [facility]; Protocol Last Admin: 11/14/17 09:28 Dose: 1,100 unit/hr, 22 mls/hr Insulin Aspart (Novolog Vial Sliding Scale -) 1 vial SQ [facility]; Protocol Last Admin: 11/14/17 06:24 Dose: Not Given Insulin Detemir (Levemir Vial) 10 units SQ [facility] Last Admin: 11/13/17 22:49 Dose: 10 units Lactulose (Cephulac (Oral Use)) 20 gm PO BID [facility] Last Admin: 11/14/17 09:27 Dose: 20 gm Lidocaine (Lidoderm Patch -) 1 patch TP DAILY [facility] Last Admin: 11/14/17 09:28 Dose: 1 patch Lisinopril (Prinivil) 5 mg PO DAILY [facility] Last Admin: 11/14/17 09:27 Dose: 5 mg Miscellaneous (Lidoderm Patch Removal) 1 each MC DAILY@2200 [facility] Last Admin: 11/13/17 22:50 Dose: Not Given Oxycodone HCl (Roxicodone -) 10 mg PO Q6H PRN PRN Reason: PAIN LEVEL 6-10 Last Admin: 11/14/17 09:39 Dose: 10 mg Psyllium Hydrophilic Mucilloid (Metamucil (Sugar-Free) -) 5.85 gm PO BID [facility] Last Admin: 11/14/17 09:28 Dose: 5.85 gm Zolpidem Tartrate (Ambien -) 10 mg PO [facility] Stop: 11/14/17 21:59 Last Admin: 11/13/17 22:47 Dose: 10 mg - Objective Vital Signs: Vital Signs Temperature 97.6 F 11/14/17 02:00 Pulse Rate 65 11/14/17 02:00 Respiratory Rate 22 11/14/17 02:00 Blood Pressure 138/77 11/14/17 02:00 O2 Sat by Pulse Oximetry (%) 98 11/13/17 22:11 Constitutional: Yes: No Distress, Calm Neck: Yes: Supple, Trachea Midline Cardiovascular: Yes: Regular Rate and Rhythm, S1, S2. No: Murmur Respiratory: Yes: Regular, Diminished (at bases) Gastrointestinal: Yes: Normal Bowel Sounds, Soft. No: Distention, Tenderness Edema: No Neurological: Yes: Alert, Oriented Labs: CBC, BMP 11/14/17 05:48 11/14/17 05:48 INR, PTT INR 1.26 (0.83-1.09) H 11/13/17 17:00 Problem List - Problems (1) Shortness of breath Code(s): R06.02 - SHORTNESS OF BREATH (2) Chronic kidney disease (CKD) Code(s): N18.9 - CHRONIC KIDNEY DISEASE, UNSPECIFIED Qualifiers: Chronic kidney disease stage: unspecified stage Qualified Code(s): N18.9 - Chronic kidney disease, unspecified (3) COPD (chronic obstructive pulmonary disease) Code(s): J44.9 - CHRONIC OBSTRUCTIVE PULMONARY DISEASE, UNSPECIFIED (4) Coronary artery disease Code(s): I25.10 - ATHSCL HEART DISEASE OF [place] CORONARY ARTERY W/O ANG PCTRS Qualifiers: Coronary Disease-Associated Artery/Lesion type: bypass graft, other Associated angina: with other forms of angina Qualified Code(s): I25.798 - Atherosclerosis of other coronary artery bypass graft(s) with other forms of angina pectoris (5) Diabetes Code(s): E11.9 - TYPE 2 DIABETES MELLITUS WITHOUT COMPLICATIONS Qualifiers: Diabetes mellitus type: type 2 Diabetes mellitus complication detail: with chronic kidney disease (6) HTN (hypertension) Code(s): I10 - ESSENTIAL (PRIMARY) HYPERTENSION Qualifiers: Hypertension type: essential hypertension Qualified Code(s): I10 - Essential (primary) hypertension (7) Low back pain Code(s): M54.5 - LOW BACK PAIN Assessment/Plan Current Active Problems possible pulmonary embolism Chronic kidney disease (CKD) (Acute) Shortness of breath (Acute) CAD, s/p CABG s/p AICD ischemic cardiomyopathy CHF CAD DM Chronic back pain -cont IV lasix -cont heparin drip (will change to NS solution due to elevated blood sugar on D5W solution) until can r/o PE (V/Q scan when available) -on insulin sliding scale for elevated blood sugar
--- NOTE | 2017-11-14 11:59 | CON.PULM ---
Consult Consult Specialty:: PULM/CCM Referred by:: PRASANTH Reason for Consultation:: SOB - History of Present Illness Chief Complaint: SOB History of Present Illness: 62 M, with listed past medical. Known O2 dependent COPD and follows with Dr Manning. Reports having his Lasix decreased about 1 month ago. No fever or chills. No travel history or sick contacts. No hemoptysis. No VTE risk factors or personal/family history. CXR: bilateral increased pulmonary vascular markings - History Source History Provided By: Patient Limitations to Obtaining History: No Limitations - Past Medical History Cardio/Vascular: Yes: AFIB (after CABG briefly; not on AC), CAD, CHF, HTN Pulmonary: Yes: COPD, O2 Dependent Endocrine: Yes: Diabetes Mellitus - Past Surgical History Past Surgical History: Yes: AICD, CABG - Alcohol/Substance Use Hx Alcohol Use: No History of Substance Use: reports: None - Smoking History Smoking history: Current every day smoker Have you smoked in the past 12 months: Yes Aproximately how many cigarettes per day: 3 If you are a former smoker, when did you quit?: 06/20/16 - Social History Usual Living Arrangement: With Spouse ADL: Independent History of Recent Travel: No Home Medications - Allergies Allergies/Adverse Reactions: Allergies Allergy/AdvReac Type Severity Reaction Status Date / Time Fish Containing Products Allergy Verified 11/13/17 15:37 codeine AdvReac Intermediate Vomiting Verified 11/13/17 15:37 gabapentin AdvReac Intermediate dizzy Verified 11/13/17 15:37 - Home Medications Home Medications: Ambulatory Orders Amlodipine Besylate [Norvasc -] 5 mg PO DAILY 06/18/15 Aspirin [Aspirin EC] 81 mg PO DAILY 06/18/15 Budesonide/Formeterol Fumarate [SYMBICORT 160/4.5mcg -] 1 inh PO DAILY 06/18/15 Cilostazol 50 mg PO DAILY 06/18/15 Clopidogrel Bisulfate [Clopidogrel] 75 mg PO DAILY 06/18/15 Furosemide [Lasix -] 40 mg PO DAILY 06/18/15 Insulin Detemir [Levemir Flextouch] 10 unit SQ PRN PRN 06/18/15 Lisinopril 5 mg PO DAILY 06/18/15 Simvastatin [Zocor -] 20 mg PO HS 06/18/15 Zolpidem Tartrate [Ambien] 10 mg PO HS 06/18/15 Carvedilol [Coreg -] 25 mg PO BID #60 tablet 06/20/15 Albuterol 0.083% Nebulizer Rosy [Ventolin 0.083% Nebulizer Soln -] 1 neb NEB QID PRN 02/18/16 Lidocaine 5% Patch [Lidoderm -] 1 patch TP DAILY #30 patch 12/08/16 Cyclobenzaprine HCl [Flexeril -] 10 mg PO TID PRN #15 tablet 01/10/17 Psyllium [Metamucil (Sugar-Free) -] 5.85 gm PO BID #1 bottle 06/02/17 Cholecalciferol (Vitamin D3) [Vitamin D3] 2,000 unit PO DAILY #30 capsule Blood Sugar Diagnostic [Glucose Test Strip] 1 each MC QID PRN #100 strip MDD 4 07/28/17 Lactulose (Oral Use) [Cephulac -] 20 gm PO BID #1 bottle 07/28/17 Miscellaneous Medical Supply [Glucometer Device] 1 each TD ASDIR 30 Days ea Miscellaneous Medical Supply [Glucometer Test Strips #100] 1 each TD ASDIR #1 ea 07/28/17 Docusate Sodium [Colace -] 100 mg PO TID #90 capsule 09/22/17 Ferrous Sulfate [Feosol] 325 mg PO DAILY 09/22/17 Oxycodone HCl/Acetaminophen [Percocet 10-325 mg Tablet] 1 each PO QID PRN #120 tablet MDD 4 10/23/17 Family Disease History - Family Disease History Family Disease History: Heart Disease: Father (etoh), Mother (, cva), Other: Brother (alive - Ramírez - hx etoh), Sister (five - alive - no medical problems), Son (two adults - no problems) Review of Systems - Review of Systems Constitutional: reports: No Symptoms Eyes: reports: No Symptoms HENT: reports: No Symptoms Neck: reports: No Symptoms Cardiovascular: reports: Shortness of Breath. denies: Chest Pain, Edema, Palpitations Respiratory: reports: Cough, Orthopnea, SOB, SOB on Exertion. denies: Hemoptysis, Snoring, Wheezing Gastrointestinal: reports: No Symptoms Genitourinary: reports: No Symptoms Musculoskeletal: reports: No Symptoms Integumentary: reports: No Symptoms Neurological: reports: No Symptoms Endocrine: reports: No Symptoms Hematology/Lymphatic: reports: No Symptoms Psychiatric: reports: No Symptoms Physical Exam Vital Sings: Vital Signs Temperature 97.6 F 11/14/17 10:00 Pulse Rate 81 11/14/17 10:00 Respiratory Rate 22 11/14/17 10:00 Blood Pressure 155/85 11/14/17 10:00 O2 Sat by Pulse Oximetry (%) 96 11/14/17 09:00 Constitutional: Yes: Mild Distress Eyes: Yes: Conjunctiva Clear, EOM Intact HENT: Yes: Atraumatic, Normocephalic Neck: Yes: Supple, Trachea Midline Cardiovascular: Yes: Regular Rate and Rhythm Respiratory: Yes: Cough, Diminished, On Nasal O2, Rhonchi, SOB, SOB on Exertion , Tachypnea. No: Accessory Muscle Use, Rales, Stridor, Wheezes ...Inspection: Yes: WNL ...Clubbing: No Gastrointestinal: Yes: Normal Bowel Sounds, Soft Musculoskeletal: Yes: WNL Extremities: Yes: WNL Edema: No Peripheral Pulses WNL: Yes Integumentary: Yes: WNL Neurological: Yes: Alert, Oriented ...Motor Strength: WNL Psychiatric: Yes: WNL, Alert, Oriented Labs: CBC, BMP 11/14/17 05:48 11/14/17 05:48 Imaging - Results Chest X-ray: Report Reviewed, Image Reviewed Problem List - Problems (1) Chronic kidney disease (CKD) Code(s): N18.9 - CHRONIC KIDNEY DISEASE, UNSPECIFIED Qualifiers: Chronic kidney disease stage: unspecified stage Qualified Code(s): N18.9 - Chronic kidney disease, unspecified (2) Shortness of breath Code(s): R06.02 - SHORTNESS OF BREATH (3) Bronchitis Code(s): J40 - BRONCHITIS, NOT SPECIFIED ACUTE OR CHRONIC (4) Cough Code(s): R05 - COUGH (5) Elevated d-dimer Code(s): R79.1 - ABNORMAL COAGULATION PROFILE (6) Hyperkalemia Code(s): E87.5 - HYPERKALEMIA (7) CAD (coronary artery disease) Code(s): I25.10 - ATHSCL HEART DISEASE OF [place] CORONARY ARTERY W/O ANG PCTRS (8) CHF (congestive heart failure) Code(s): I50.9 - HEART FAILURE, UNSPECIFIED Qualifiers: Qualified Code(s): I50.22 - Chronic systolic (congestive) heart failure (9) COPD (chronic obstructive pulmonary disease) Code(s): J44.9 - CHRONIC OBSTRUCTIVE PULMONARY DISEASE, UNSPECIFIED (10) Coronary artery disease Code(s): I25.10 - ATHSCL HEART DISEASE OF [place] CORONARY ARTERY W/O ANG PCTRS Qualifiers: Coronary Disease-Associated Artery/Lesion type: bypass graft, other Associated angina: with other forms of angina Qualified Code(s): I25.798 - Atherosclerosis of other coronary artery bypass graft(s) with other forms of angina pectoris (11) Diabetes Code(s): E11.9 - TYPE 2 DIABETES MELLITUS WITHOUT COMPLICATIONS Qualifiers: Diabetes mellitus type: type 2 Diabetes mellitus complication detail: with chronic kidney disease (12) HTN (hypertension) Code(s): I10 - ESSENTIAL (PRIMARY) HYPERTENSION Qualifiers: Hypertension type: essential hypertension Qualified Code(s): I10 - Essential (primary) hypertension (13) Peripheral vascular disease Code(s): I73.9 - PERIPHERAL VASCULAR DISEASE, UNSPECIFIED (14) Pulmonary hypertension Code(s): I27.2 - OTHER SECONDARY PULMONARY HYPERTENSION * DO NOT USE * (15) S/P CABG x 3 Code(s): Z95.1 - PRESENCE OF AORTOCORONARY BYPASS GRAFT Assessment/Plan Low clinical suspicion of VTE (Wells score essentially 0) Lasix daily O2 as needed Daily weight Monitor off ABX Monitor off systemic steroids for now Check Doppler Telemetry monitoring Depending on his clinical course over the weekend, will consider V/Q Thursday Will follow Thank you. Dr Garner
[2017-11-14] MEDS: ALBUTEROL SO4 0.083% IH SOL 2.5 MG/3 ML VIAL.NEB. NEB PRN ×2 (12:04→16:55)
[2017-11-14] MEDS ORDERED: PT OWN MED DRAWER 7, Y5N ONE (12:59)
[2017-11-14] MEDS: BUDESONIDE/FORMETEROL FUMARATE 160/4.5 mcg INHALER IH SCH (13:29)
[2017-11-14] MEDS: CILOSTAZOL 50 MG TABLET (FP) PO SCH (13:29)
--- NOTE | 2017-11-14 13:39 | CON.NEP ---
Consult Consult Specialty:: nephrology Reason for Consultation:: ckd - History of Present Illness Chief Complaint: dyspnea History of Present Illness: 62 yo male presented to ED with shortness of breath. No chest pain, no leg swelling. Has had increased potassium due to CRI, for which he had been taking ? kayexalate at home. Does have oxygen at home as well. In ED noted to have creatinine of 2.6 (about baseline), hgb 9.4 (last year in hospital hgb 8.5), with elevated d-dimers. With elevated d-dimers possiblility that a PE is present, but due to elevated creatinine cannot have CT of chest for PE protocol. Started on heparin in ED for possible PE and will need V/Q scan. Currently patient oxygen saturation OK on oxygen. Feels OK when he is sitting He says he is seen by Dr Rivas as outpatient and he was giving him a brown liquid every three weeks which makes him have BM's. He changed it to a powder and thats "why Im here" - History Source History Provided By: Patient - Past Medical History Cardio/Vascular: Yes: AFIB (after CABG briefly; not on AC), CAD, CHF, HTN Pulmonary: Yes: COPD, O2 Dependent Endocrine: Yes: Diabetes Mellitus - Past Surgical History Past Surgical History: Yes: AICD, CABG - Alcohol/Substance Use Hx Alcohol Use: No History of Substance Use: reports: None - Smoking History Smoking history: Current every day smoker Have you smoked in the past 12 months: Yes Aproximately how many cigarettes per day: 3 If you are a former smoker, when did you quit?: 06/20/16 - Social History Usual Living Arrangement: With Spouse ADL: Independent History of Recent Travel: No Home Medications - Allergies Allergies/Adverse Reactions: Allergies Allergy/AdvReac Type Severity Reaction Status Date / Time Fish Containing Products Allergy Verified 11/13/17 15:37 codeine AdvReac Intermediate Vomiting Verified 11/13/17 15:37 gabapentin AdvReac Intermediate dizzy Verified 11/13/17 15:37 - Home Medications Home Medications: Ambulatory Orders Amlodipine Besylate [Norvasc -] 5 mg PO DAILY 06/18/15 Aspirin [Aspirin EC] 81 mg PO DAILY 06/18/15 Budesonide/Formeterol Fumarate [SYMBICORT 160/4.5mcg -] 1 inh PO DAILY 06/18/15 Cilostazol 50 mg PO DAILY 06/18/15 Clopidogrel Bisulfate [Clopidogrel] 75 mg PO DAILY 06/18/15 Furosemide [Lasix -] 40 mg PO DAILY 06/18/15 Insulin Detemir [Levemir Flextouch] 10 unit SQ PRN PRN 06/18/15 Lisinopril 5 mg PO DAILY 06/18/15 Simvastatin [Zocor -] 20 mg PO HS 06/18/15 Zolpidem Tartrate [Ambien] 10 mg PO HS 06/18/15 Carvedilol [Coreg -] 25 mg PO BID #60 tablet 06/20/15 Albuterol 0.083% Nebulizer Rosy [Ventolin 0.083% Nebulizer Soln -] 1 neb NEB QID PRN 02/18/16 Lidocaine 5% Patch [Lidoderm -] 1 patch TP DAILY #30 patch 12/08/16 Cyclobenzaprine HCl [Flexeril -] 10 mg PO TID PRN #15 tablet 01/10/17 Psyllium [Metamucil (Sugar-Free) -] 5.85 gm PO BID #1 bottle 06/02/17 Cholecalciferol (Vitamin D3) [Vitamin D3] 2,000 unit PO DAILY #30 capsule Blood Sugar Diagnostic [Glucose Test Strip] 1 each MC QID PRN #100 strip MDD 4 07/28/17 Lactulose (Oral Use) [Cephulac -] 20 gm PO BID #1 bottle 07/28/17 Miscellaneous Medical Supply [Glucometer Device] 1 each TD ASDIR 30 Days ea Miscellaneous Medical Supply [Glucometer Test Strips #100] 1 each TD ASDIR #1 ea 07/28/17 Docusate Sodium [Colace -] 100 mg PO TID #90 capsule 09/22/17 Ferrous Sulfate [Feosol] 325 mg PO DAILY 09/22/17 Oxycodone HCl/Acetaminophen [Percocet 10-325 mg Tablet] 1 each PO QID PRN #120 tablet MDD 4 10/23/17 Family Disease History - Family Disease History Family Disease History: Heart Disease: Father (etoh), Mother (, cva), Other: Brother (alive - Ramírez - hx etoh), Sister (five - alive - no medical problems), Son (two adults - no problems) Review of Systems - Review of Systems Constitutional: reports: Weakness Eyes: reports: No Symptoms HENT: reports: No Symptoms Neck: reports: No Symptoms Cardiovascular: reports: Shortness of Breath Respiratory: reports: Cough, SOB Gastrointestinal: reports: Constipation Genitourinary: reports: No Symptoms Breasts: reports: No Symptoms Reported Musculoskeletal: reports: No Symptoms Integumentary: reports: No Symptoms Neurological: reports: No Symptoms Endocrine: reports: No Symptoms Nephrology Consult - Height Height: 5 ft 10 in - Weight Weight: 194 lb - BMI Body Mass Index (BMI): 27.8 - Lab Results CBC,BMP: CBC, BMP 11/14/17 05:48 11/14/17 05:48 Anion Gap: Anion Gap Anion Gap 6 (8-16) L 11/14/17 05:48 - Imaging Cat Scan: Report Reviewed - Physical Examination Vital Signs: Vital Signs Temperature 97.6 F 11/14/17 10:00 Pulse Rate 81 11/14/17 10:00 Respiratory Rate 22 11/14/17 10:00 Blood Pressure 155/85 11/14/17 10:00 O2 Sat by Pulse Oximetry (%) 96 11/14/17 09:00 Constitutional: Yes: Well Nourished, Mild Distress Eyes: Yes: Conjunctiva Clear HENT: Yes: Atraumatic, Normocephalic Neck: Yes: Supple, Trachea Midline Cardiovascular: Yes: Regular Rate and Rhythm Respiratory: Yes: Diminished, Rhonchi Gastrointestinal: Yes: Normal Bowel Sounds Renal/: Yes: WNL Musculoskeletal: Yes: WNL Extremities: Yes: WNL Edema: Yes Edema: RLE: Trace (no left lower ext edema) Integumentary: Yes: WNL Neurological: Yes: Alert, Oriented Psychiatric: Yes: Alert, Oriented Assessment/Plan IMPRESSION CKD likely due to diabetes dyspnea with pleural effusion constipation proteinuria asymmetric edema but doppler was neg PLAN renal function has improved would continue diuresis continue deidra inhibiotr and monitor k MV
[2017-11-14] MEDS ORDERED: ALBUTEROL SO4 0.083% IH SOL 2.5 MG/3 ML VIAL.NEB. NEB PRN (18:45)
[2017-11-14] MEDS ORDERED: methylPREDNISolone NA SUCC 125 MG/2 ML VIAL ONE (18:48)
[2017-11-14] MEDS: methylPREDNISolone NA SUCC 40 MG/1 ML VIAL IVPUSH SCH (19:40)
[2017-11-14] MEDS: ALBUTEROL SO4 0.083% IH SOL 2.5 MG/3 ML VIAL.NEB. NEB SCH (20:54)
[2017-11-14] MEDS: ATORVASTATIN CA 10 MG TABLET (FP) PO SCH (22:22)
[2017-11-14] MEDS: NICOTINE 21 MG/24 HOURS TOPICAL PATCH TD SCH (22:22)
[2017-11-14] MEDS: LIDOCAINE PATCH REMOVAL MC SCH (22:23)
[2017-11-14] MEDS: ZOLPIDEM TARTRATE 5 MG TABLET PO PRN (23:13)
[2017-11-14] MEDS: INSULIN (LEVEMIR) 100 UNITS/ML UNITS SQ SCH (23:15)
[2017-11-15] MEDS: methylPREDNISolone NA SUCC 40 MG/1 ML VIAL IVPUSH SCH ×3 (02:43→18:31)
[2017-11-15] MEDS: DOCUSATE SODIUM 100 MG CAPSULE (FP) PO SCH ×3 (05:56→21:31)
[2017-11-15] MEDS: oxyCODONE HCL 5 MG TABLET PO PRN ×3 (05:56→21:31)
[2017-11-15] MEDS: INSULIN SLIDING SCALE (NOVOLOG) 1 VIAL SQ SCH ×4 (05:59→21:37)
[2017-11-15 06:38] LABS: CHLORIDE 100 mmol/L (98-107); POTASSIUM 3.9 mmol/L (3.5-5.1); SODIUM 140 mmol/L (136-145)
[2017-11-15 06:53] LABS: ALBUMIN 3.1 g/dl (3.4-5.0); ALK PHOS 89 U/L (45-117); ANION GAP 9 (8-16); BILIRUBIN,TOTAL 0.5 mg/dL (0.2-1.0); BLOOD UREA NITROGEN 50 mg/dL (7-18); CALCIUM 8.2 mg/dL (8.5-10.1); CO2 31 mmol/L (21-32); CREATININE 2.2 mg/dL (0.7-1.3); GLUCOSE,RANDOM 163 mg/dL (74-106); SGOT/AST 13 U/L (15-37); SGPT/ALT 9 U/L (12-78); TOT PROT 6.9 g/dl (6.4-8.2)
[2017-11-15] MEDS: ALBUTEROL SO4 0.083% IH SOL 2.5 MG/3 ML VIAL.NEB. NEB SCH (07:41)
[2017-11-15] MEDS ORDERED: PT OWN MED DRAWER 7, Y5N ONE ×2 (09:04→13:33)
[2017-11-15] MEDS: CILOSTAZOL 50 MG TABLET (FP) PO SCH (09:09)
[2017-11-15] MEDS: PSYLLIUM 5.85 GM PACKET PO SCH ×2 (09:09→21:32)
[2017-11-15] MEDS: ASPIRIN COATED 81 MG TABLET.EC PO SCH (09:09)
[2017-11-15] MEDS: CHOLECALCIFEROL (VITAMIN D3) 1,000 UNIT TABLET (FP) PO SCH (09:09)
[2017-11-15] MEDS: CARVEDILOL 25 MG TABLET (FP) PO SCH ×2 (09:09→21:31)
[2017-11-15] MEDS: CLOPIDOGREL BISULFATE 75 MG TABLET (FP) PO SCH (09:09)
[2017-11-15] MEDS: amLODIPine BESYLATE 5 MG TABLET (FP) PO SCH (09:09)
[2017-11-15] MEDS: NICOTINE 21 MG/24 HOURS TOPICAL PATCH TD SCH (09:09)
[2017-11-15] MEDS: FERROUS SO4 325 MG TABLET (FP) PO SCH (09:09)
[2017-11-15] MEDS: LISINOPRIL 5 MG TABLET (FP) PO SCH (09:10)
[2017-11-15] MEDS: FUROSEMIDE 40 MG/4 ML INJECTABLE VIAL IVPUSH SCH (09:10)
[2017-11-15] MEDS: BUDESONIDE/FORMETEROL FUMARATE 160/4.5 mcg INHALER IH SCH (09:10)
--- NOTE | 2017-11-15 10:17 | PN ---
Progress Note (short form) - Note Progress Note: s: no cp palps dizzy; sob improving o: Vital Signs Period Temp Pulse Resp BP Sys/El Pulse Ox Last 24 Hr 97.4 F-98.9 F 63-94 20-21 134-156/69-111 96-96 nad rrr s1s2 no mrg cta bl nl eff aaox3 no le e/c/c abd nt nd pos bs no jaundice diaphoresis Current Medications Generic Name Dose Route Start Last Admin Trade Name Freq PRN Reason Stop Dose Admin Acetaminophen 325 mg 11/13/17 20:37 11/13/17 22:52 Tylenol - PO 325 mg Q6H PRN Administration PAIN LEVEL 6-10 WITH OXYCODON Albuterol Sulfate 1 amp 11/14/17 20:00 11/15/17 07:41 Ventolin 0.083% Nebulizer Soln - NEB 1 amp RQID MANJU Administration Albuterol Sulfate 1 amp 11/14/17 18:45 Ventolin 0.083% Nebulizer Soln - NEB Q4H PRN SHORT OF BREATH/WHEEZING Amlodipine Besylate 5 mg 11/14/17 10:00 11/15/17 09:09 Norvasc - PO 5 mg DAILY MANJU Administration Aspirin 81 mg 11/14/17 10:00 11/15/17 09:09 Ecotrin - PO 81 mg DAILY MANJU Administration Atorvastatin Calcium 10 mg 11/13/17 22:00 11/14/17 22:22 Lipitor - PO 10 mg HS MANJU Administration Budesonide/Formoterol Fumarate 1 puff 11/14/17 10:00 11/15/17 09:10 Symbicort 160/4.5mcg - IH 1 inh DAILY MANJU Administration Carvedilol 25 mg 11/13/17 22:00 11/15/17 09:09 Coreg - PO 25 mg BID MANJU Administration Cholecalciferol 2,000 unit 11/14/17 10:00 11/15/17 09:09 Vitamin D3 - PO 2,000 unit DAILY MANJU Administration Cilostazol 50 mg 11/14/17 10:00 11/15/17 09:09 Pletal - PO 50 mg DAILY MANJU Administration Clopidogrel Bisulfate 75 mg 11/14/17 10:00 11/15/17 09:09 Plavix - PO 75 mg DAILY MANJU Administration Cyclobenzaprine HCl 10 mg 11/13/17 20:08 Flexeril - PO TID PRN PAIN Docusate Sodium 100 mg 11/13/17 22:00 11/15/17 05:56 Colace - PO 100 mg TID MANJU Administration Ferrous Sulfate 325 mg 11/14/17 10:00 11/15/17 09:09 Feosol - PO 325 mg DAILY MANJU Administration Furosemide 40 mg 11/14/17 10:00 11/15/17 09:10 Lasix Injection - IVPUSH 40 mg DAILY MANJU Administration Heparin Sodium (Porcine) 1,000 unit 11/14/17 08:59 Heparin - IVPUSH PRN PRN Heparin Heparin Sodium (Porcine) 5,000 unit 11/14/17 08:59 11/15/17 02:39 Heparin - IVPUSH 5,000 unit PRN PRN Administration Heparin Heparin Sodium (Porcine) 25, 500 mls @ 20 mls/hr 11/14/17 09:00 11/15/17 02: 39 000 unit/ Sodium Chloride IV 1,350 unit/hr TITR MANJU 27 mls/hr Titration Protocol 1,000 UNIT/HR Insulin Aspart 1 vial 11/13/17 22:00 11/15/17 05:59 Novolog Vial Sliding Scale - SQ Not Given ACHS MANJU Protocol Insulin Detemir 10 units 11/13/17 22:00 11/14/17 23:15 Levemir Vial SQ 10 units HS MANJU Administration Lactulose 20 gm 11/13/17 22:00 11/14/17 22:22 Cephulac (Oral Use) PO 20 gm BID MANJU Administration Lidocaine 1 patch 11/14/17 10:00 11/14/17 09:28 Lidoderm Patch - TP 1 patch DAILY MANJU Administration Lisinopril 5 mg 11/14/17 10:00 11/15/17 09:10 Prinivil PO 5 mg DAILY MANJU Administration Methylprednisolone Sodium Succinate 60 mg 11/14/17 19:30 11/15/17 02:43 Solu-Medrol - IVPUSH 60 mg Q8H MANJU Administration Miscellaneous 1 each 11/13/17 22:00 11/14/17 22:23 Lidoderm Patch Removal MC Not Given DAILY@2200 MAJNU Nicotine 21 mg 11/14/17 19:00 11/15/17 09:09 Nicoderm Patch - TD 21 mg DAILY MANJU Administration Oxycodone HCl 10 mg 11/13/17 20:37 11/15/17 05:56 Roxicodone - PO 10 mg Q6H PRN Administration PAIN LEVEL 6-10 Psyllium Hydrophilic Mucilloid 5.85 gm 11/13/17 22:00 11/15/17 09:09 Metamucil (Sugar-Free) - PO 5.85 gm BID MANJU Administration Zolpidem Tartrate 10 mg 11/14/17 22:54 11/14/17 23:13 Ambien - PO 10 mg HS PRN Administration INSOMNIA CBC, BMP 11/14/17 05:48 11/15/17 05:30 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 ct chest: mild chf, eff L>r, left is chronic 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: 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 echo 06/2015: mild lve, mod-sev dec lvef, mod lae, nl rv size, mild dec rv fcn, mild-mod mr, mild tr, nl avr fcn, rvsp 30-40 echo 06/2016: sev dec lvef, global hk, rv tds, trinity, mod-sev mr, mod tr, rvsp 50- 60 mibi 09/2014: large inf scar, mod anteroapical ischemia, lvef 25% mibi 06/2016 (pers): non-diagnostic STs; large area inferior/inferolateral/ lateral scar; no ischemia; severe LV cavity dilation; global HK with akinesis of inferior/inferolat/lateral allan; EF 16% a/p: 62 m hx copd, cabgx3 2012, bio avr 2012, pad s/p b/l sfa occlusions, syst chf s/p medtronic icd, htn, hld, a-tach, here with sob. acute systolic chf/persistent L effusion: -had been doing well as outpt for awhile, now here with sob, possibly mild vol overload, was on lasix 40 qd as outpt (dose had been lowered due to worsening ckd). -wt up a bit and some congestion on ct chest here, so agree with iv lasix -daily wts, chem7, i/os -elevated d-dimer so getting hep gtt until can r/o pe with vq scan. avoiding cta chest 2/2 ckd. acute exacerbation of copd: -also contributing to sob -on iv steroids cad/hx of CABG 2012 -no recent angina/ischemia -present sx's not suggestive for angina, enzymes neg x 3 -cont prior cad med regimen: deidra, dapt, statin, bb, ccb bio avr: -nl fcn on echo 06/20 mitral regurgitation: -likely functional MR, mild-mod on echo 06/19, then "mod-severe" when here 06/20 with suspected acute chf and pulm pressures up (though at risk for overestimation of MR severity on that echo report) -valve morphology not described (tethered leaflets?) -no murmur on exam -reassess MR severity on echo once pt adequately diuresed, though surgical or clip intervention not indicated/proven for functional MR CKD: -cr similar to recent outpt labs, monitor with lasix pad: -stable, no claudication, cont current cardiac meds s/p icd: -no shocks -routine outpt monitoring htn: -cont home meds hld: -cont statin atach: -minimal episodes seen in past on icd checks -cont bb -monitor tele anemia: -chronic, stable counts here vs baseline -per pmd
--- NOTE | 2017-11-15 11:01 | PN ---
Progress Note (short form) - Note Progress Note: Feels better today after steroids were started last night. Was able to sleep. Less abdominal breathing. No CP. Some dry cough. Doppler: no DVT Intake & Output 11/12/17 11/13/17 11/14/17 11/15/17 23:59 23:59 23:59 23:59 Intake Total 370 740 405 Output Total 1900 950 Balance 370 -1160 -545 Weight 194 lb 194 lb 206 lb 9.6 oz Last Vital Signs Temp Pulse Resp BP Pulse Ox 98.2 F 93 H 20 145/79 96 11/15/17 10:00 11/15/17 10:00 11/15/17 10:00 11/15/17 10:00 11/15/17 09:00 Active Medications Acetaminophen (Tylenol -) 325 mg PO Q6H PRN PRN Reason: PAIN LEVEL 6-10 WITH OXYCODON Last Admin: 11/13/17 22:52 Dose: 325 mg Albuterol Sulfate (Ventolin 0.083% Nebulizer Soln -) 1 amp NEB RQID [facility] Last Admin: 11/15/17 07:41 Dose: 1 amp Albuterol Sulfate (Ventolin 0.083% Nebulizer Soln -) 1 amp NEB Q4H PRN PRN Reason: SHORT OF BREATH/WHEEZING Amlodipine Besylate (Norvasc -) 5 mg PO DAILY [facility] Last Admin: 11/15/17 09:09 Dose: 5 mg Aspirin (Ecotrin -) 81 mg PO DAILY [facility] Last Admin: 11/15/17 09:09 Dose: 81 mg Atorvastatin Calcium (Lipitor -) 10 mg PO HS [facility] Last Admin: 11/14/17 22:22 Dose: 10 mg Budesonide/Formoterol Fumarate (Symbicort 160/4.5mcg -) 1 puff IH DAILY [facility] Last Admin: 11/15/17 09:10 Dose: 1 inh Carvedilol (Coreg -) 25 mg PO BID [facility] Last Admin: 11/15/17 09:09 Dose: 25 mg Cholecalciferol (Vitamin D3 -) 2,000 unit PO DAILY [facility] Last Admin: 11/15/17 09:09 Dose: 2,000 unit Cilostazol (Pletal -) 50 mg PO DAILY [facility] Last Admin: 11/15/17 09:09 Dose: 50 mg Clopidogrel Bisulfate (Plavix -) 75 mg PO DAILY [facility] Last Admin: 11/15/17 09:09 Dose: 75 mg Cyclobenzaprine HCl (Flexeril -) 10 mg PO TID PRN PRN Reason: PAIN Docusate Sodium (Colace -) 100 mg PO TID [facility] Last Admin: 11/15/17 05:56 Dose: 100 mg Ferrous Sulfate (Feosol -) 325 mg PO DAILY [facility] Last Admin: 11/15/17 09:09 Dose: 325 mg Furosemide (Lasix Injection -) 40 mg IVPUSH DAILY [facility] Last Admin: 11/15/17 09:10 Dose: 40 mg Heparin Sodium (Porcine) (Heparin -) 1,000 unit IVPUSH PRN PRN PRN Reason: Heparin Heparin Sodium (Porcine) (Heparin -) 5,000 unit IVPUSH PRN PRN PRN Reason: Heparin Last Admin: 11/15/17 02:39 Dose: 5,000 unit Heparin Sodium (Porcine) 25, (000 unit/ Sodium Chloride) 500 mls @ 20 mls/hr IV TITR [facility]; Protocol Last Titration: 11/15/17 02:39 Dose: 1,350 unit/hr, 27 mls/hr Insulin Aspart (Novolog Vial Sliding Scale -) 1 vial SQ ACHS [facility]; Protocol Last Admin: 11/15/17 05:59 Dose: Not Given Insulin Detemir (Levemir Vial) 10 units SQ HS [facility] Last Admin: 11/14/17 23:15 Dose: 10 units Lactulose (Cephulac (Oral Use)) 20 gm PO BID [facility] Last Admin: 11/14/17 22:22 Dose: 20 gm Lidocaine (Lidoderm Patch -) 1 patch TP DAILY [facility] Last Admin: 11/14/17 09:28 Dose: 1 patch Lisinopril (Prinivil) 5 mg PO DAILY [facility] Last Admin: 11/15/17 09:10 Dose: 5 mg Methylprednisolone Sodium Succinate (Solu-Medrol -) 60 mg IVPUSH Q8H [facility] Last Admin: 11/15/17 02:43 Dose: 60 mg Miscellaneous (Lidoderm Patch Removal) 1 each MC DAILY@2200 [facility] Last Admin: 11/14/17 22:23 Dose: Not Given Nicotine (Nicoderm Patch -) 21 mg TD DAILY [facility] Last Admin: 11/15/17 09:09 Dose: 21 mg Oxycodone HCl (Roxicodone -) 10 mg PO Q6H PRN PRN Reason: PAIN LEVEL 6-10 Last Admin: 11/15/17 05:56 Dose: 10 mg Psyllium Hydrophilic Mucilloid (Metamucil (Sugar-Free) -) 5.85 gm PO BID [facility] Last Admin: 11/15/17 09:09 Dose: 5.85 gm Zolpidem Tartrate (Ambien -) 10 mg PO HS PRN PRN Reason: INSOMNIA Last Admin: 11/14/17 23:13 Dose: 10 mg Constitutional: Yes: Appears more comfortable today Eyes: Yes: Conjunctiva Clear, EOM Intact HENT: Yes: Atraumatic, Normocephalic Neck: Yes: Supple, Trachea Midline Cardiovascular: Yes: Regular Rate and Rhythm Respiratory: Yes: Cough, Diminished, On Nasal O2, Rhonchi, SOB, Tachypnea. No: Accessory Muscle Use, Rales, Stridor, Wheezes ...Inspection: Yes: WNL ...Clubbing: No Gastrointestinal: Yes: Normal Bowel Sounds, Soft Musculoskeletal: Yes: WNL Extremities: Yes: WNL Edema: No Peripheral Pulses WNL: Yes Integumentary: Yes: WNL Neurological: Yes: Alert, Oriented ...Motor Strength: WNL Psychiatric: Yes: WNL, Alert, Oriented Labs: Laboratory Results - last 24 hr 11/13/17 11/14/17 11/14/17 22:37 11:21 14:30 PTT (Actin FS) 42.2 H Sodium Potassium Chloride Carbon Dioxide Anion Gap BUN Creatinine Creat Clearance w eGFR POC Glucometer 429 187 Random Glucose Calcium Total Bilirubin AST ALT Alkaline Phosphatase Total Protein Albumin 11/14/17 11/14/17 11/15/17 17:25 23:10 02:00 PTT (Actin FS) 38.8 H Sodium Potassium Chloride Carbon Dioxide Anion Gap BUN Creatinine Creat Clearance w eGFR POC Glucometer 155 281 Random Glucose Calcium Total Bilirubin AST ALT Alkaline Phosphatase Total Protein Albumin 11/15/17 11/15/17 11/15/17 05:30 05:30 05:50 PTT (Actin FS) 86.7 H Sodium 140 Potassium 3.9 Chloride 100 Carbon Dioxide 31 Anion Gap 9 BUN 50 H Creatinine 2.2 H Creat Clearance w eGFR 30.48 POC Glucometer 195 Random Glucose 163 H D Calcium 8.2 L Total Bilirubin 0.5 AST 13 L ALT 9 L D Alkaline Phosphatase 89 Total Protein 6.9 Albumin 3.1 L Problem List - Problems (1) Chronic kidney disease (CKD) Code(s): N18.9 - CHRONIC KIDNEY DISEASE, UNSPECIFIED Qualifiers: Chronic kidney disease stage: unspecified stage Qualified Code(s): N18.9 - Chronic kidney disease, unspecified (2) Shortness of breath Code(s): R06.02 - SHORTNESS OF BREATH (3) Bronchitis Code(s): J40 - BRONCHITIS, NOT SPECIFIED ACUTE OR CHRONIC (4) Cough Code(s): R05 - COUGH (5) Elevated d-dimer Code(s): R79.1 - ABNORMAL COAGULATION PROFILE (6) Hyperkalemia Code(s): E87.5 - HYPERKALEMIA (7) CAD (coronary artery disease) Code(s): I25.10 - ATHSCL HEART DISEASE OF [place] CORONARY ARTERY W/O ANG PCTRS (8) CHF (congestive heart failure) Code(s): I50.9 - HEART FAILURE, UNSPECIFIED Qualifiers: Qualified Code(s): I50.22 - Chronic systolic (congestive) heart failure (9) COPD (chronic obstructive pulmonary disease) Code(s): J44.9 - CHRONIC OBSTRUCTIVE PULMONARY DISEASE, UNSPECIFIED (10) Coronary artery disease Code(s): I25.10 - ATHSCL HEART DISEASE OF [place] CORONARY ARTERY W/O ANG PCTRS Qualifiers: Coronary Disease-Associated Artery/Lesion type: bypass graft, other Associated angina: with other forms of angina Qualified Code(s): I25.798 - Atherosclerosis of other coronary artery bypass graft(s) with other forms of angina pectoris (11) Diabetes Code(s): E11.9 - TYPE 2 DIABETES MELLITUS WITHOUT COMPLICATIONS Qualifiers: Diabetes mellitus type: type 2 Diabetes mellitus complication detail: with chronic kidney disease (12) HTN (hypertension) Code(s): I10 - ESSENTIAL (PRIMARY) HYPERTENSION Qualifiers: Hypertension type: essential hypertension Qualified Code(s): I10 - Essential (primary) hypertension (13) Peripheral vascular disease Code(s): I73.9 - PERIPHERAL VASCULAR DISEASE, UNSPECIFIED (14) Pulmonary hypertension Code(s): I27.2 - OTHER SECONDARY PULMONARY HYPERTENSION * DO NOT USE * (15) S/P CABG x 3 Code(s): Z95.1 - PRESENCE OF AORTOCORONARY BYPASS GRAFT Assessment/Plan Low clinical suspicion of VTE (Wells score essentially 0) DVT ruled out Lasix daily O2 as needed Daily weight Monitor off ABX Medrol Telemetry monitoring Depending on his clinical course today, will consider whether V/Q is needed tomorrow Dr Garner Problem List - Problems (1) Chronic kidney disease (CKD) Code(s): N18.9 - CHRONIC KIDNEY DISEASE, UNSPECIFIED Qualifiers: Qualified Code(s): N18.9 - Chronic kidney disease, unspecified (2) Shortness of breath Code(s): R06.02 - SHORTNESS OF BREATH (3) Bronchitis Code(s): J40 - BRONCHITIS, NOT SPECIFIED ACUTE OR CHRONIC (4) Cough Code(s): R05 - COUGH (5) Elevated d-dimer Code(s): R79.1 - ABNORMAL COAGULATION PROFILE (6) Hyperkalemia Code(s): E87.5 - HYPERKALEMIA (7) CAD (coronary artery disease) Code(s): I25.10 - ATHSCL HEART DISEASE OF [place] CORONARY ARTERY W/O ANG PCTRS (8) CHF (congestive heart failure) Code(s): I50.9 - HEART FAILURE, UNSPECIFIED Qualifiers: Qualified Code(s): I50.22 - Chronic systolic (congestive) heart failure (9) COPD (chronic obstructive pulmonary disease) Code(s): J44.9 - CHRONIC OBSTRUCTIVE PULMONARY DISEASE, UNSPECIFIED (10) Coronary artery disease Code(s): I25.10 - ATHSCL HEART DISEASE OF [place] CORONARY ARTERY W/O ANG PCTRS Qualifiers: Qualified Code(s): I25.798 - Atherosclerosis of other coronary artery bypass graft(s) with other forms of angina pectoris (11) Diabetes Code(s): E11.9 - TYPE 2 DIABETES MELLITUS WITHOUT COMPLICATIONS (12) HTN (hypertension) Code(s): I10 - ESSENTIAL (PRIMARY) HYPERTENSION Qualifiers: Qualified Code(s): I10 - Essential (primary) hypertension (13) Peripheral vascular disease Code(s): I73.9 - PERIPHERAL VASCULAR DISEASE, UNSPECIFIED (14) Pulmonary hypertension Code(s): I27.2 - OTHER SECONDARY PULMONARY HYPERTENSION * DO NOT USE * (15) S/P CABG x 3 Code(s): Z95.1 - PRESENCE OF AORTOCORONARY BYPASS GRAFT
--- NOTE | 2017-11-15 11:03 | PN ---
Progress Note, Physician History of Present Illness: Patient notes feeling better today. Does note increased urination. CT chest ( without contrast) is suggestive of fluid overload, with congestive changes and developing pleural effusion. Remains on heparin. - Current Medication List Current Medications: Active Medications Acetaminophen (Tylenol -) 325 mg PO Q6H PRN PRN Reason: PAIN LEVEL 6-10 WITH OXYCODON Last Admin: 11/13/17 22:52 Dose: 325 mg Albuterol Sulfate (Ventolin 0.083% Nebulizer Soln -) 1 amp NEB RQID [facility] Last Admin: 11/15/17 07:41 Dose: 1 amp Albuterol Sulfate (Ventolin 0.083% Nebulizer Soln -) 1 amp NEB Q4H PRN PRN Reason: SHORT OF BREATH/WHEEZING Amlodipine Besylate (Norvasc -) 5 mg PO DAILY [facility] Last Admin: 11/15/17 09:09 Dose: 5 mg Aspirin (Ecotrin -) 81 mg PO DAILY [facility] Last Admin: 11/15/17 09:09 Dose: 81 mg Atorvastatin Calcium (Lipitor -) 10 mg PO HS [facility] Last Admin: 11/14/17 22:22 Dose: 10 mg Budesonide/Formoterol Fumarate (Symbicort 160/4.5mcg -) 1 puff IH DAILY [facility] Last Admin: 11/15/17 09:10 Dose: 1 inh Carvedilol (Coreg -) 25 mg PO BID [facility] Last Admin: 11/15/17 09:09 Dose: 25 mg Cholecalciferol (Vitamin D3 -) 2,000 unit PO DAILY [facility] Last Admin: 11/15/17 09:09 Dose: 2,000 unit Cilostazol (Pletal -) 50 mg PO DAILY [facility] Last Admin: 11/15/17 09:09 Dose: 50 mg Clopidogrel Bisulfate (Plavix -) 75 mg PO DAILY [facility] Last Admin: 11/15/17 09:09 Dose: 75 mg Cyclobenzaprine HCl (Flexeril -) 10 mg PO TID PRN PRN Reason: PAIN Docusate Sodium (Colace -) 100 mg PO TID [facility] Last Admin: 11/15/17 05:56 Dose: 100 mg Ferrous Sulfate (Feosol -) 325 mg PO DAILY [facility] Last Admin: 11/15/17 09:09 Dose: 325 mg Furosemide (Lasix Injection -) 40 mg IVPUSH DAILY [facility] Last Admin: 11/15/17 09:10 Dose: 40 mg Heparin Sodium (Porcine) (Heparin -) 1,000 unit IVPUSH PRN PRN PRN Reason: Heparin Heparin Sodium (Porcine) (Heparin -) 5,000 unit IVPUSH PRN PRN PRN Reason: Heparin Last Admin: 11/15/17 02:39 Dose: 5,000 unit Heparin Sodium (Porcine) 25, (000 unit/ Sodium Chloride) 500 mls @ 20 mls/hr IV TITR [facility]; Protocol Last Titration: 11/15/17 02:39 Dose: 1,350 unit/hr, 27 mls/hr Insulin Aspart (Novolog Vial Sliding Scale -) 1 vial SQ ACHS [facility]; Protocol Last Admin: 11/15/17 05:59 Dose: Not Given Insulin Detemir (Levemir Vial) 10 units SQ HS [facility] Last Admin: 11/14/17 23:15 Dose: 10 units Lactulose (Cephulac (Oral Use)) 20 gm PO BID [facility] Last Admin: 11/14/17 22:22 Dose: 20 gm Lidocaine (Lidoderm Patch -) 1 patch TP DAILY [facility] Last Admin: 11/14/17 09:28 Dose: 1 patch Lisinopril (Prinivil) 5 mg PO DAILY [facility] Last Admin: 11/15/17 09:10 Dose: 5 mg Methylprednisolone Sodium Succinate (Solu-Medrol -) 60 mg IVPUSH Q8H [facility] Last Admin: 11/15/17 02:43 Dose: 60 mg Miscellaneous (Lidoderm Patch Removal) 1 each MC DAILY@2200 [facility] Last Admin: 11/14/17 22:23 Dose: Not Given Nicotine (Nicoderm Patch -) 21 mg TD DAILY [facility] Last Admin: 11/15/17 09:09 Dose: 21 mg Oxycodone HCl (Roxicodone -) 10 mg PO Q6H PRN PRN Reason: PAIN LEVEL 6-10 Last Admin: 11/15/17 05:56 Dose: 10 mg Psyllium Hydrophilic Mucilloid (Metamucil (Sugar-Free) -) 5.85 gm PO BID [facility] Last Admin: 11/15/17 09:09 Dose: 5.85 gm Zolpidem Tartrate (Ambien -) 10 mg PO HS PRN PRN Reason: INSOMNIA Last Admin: 11/14/17 23:13 Dose: 10 mg - Objective Vital Signs: Vital Signs Temperature 98.2 F 11/15/17 10:00 Pulse Rate 93 H 11/15/17 10:00 Respiratory Rate 20 11/15/17 10:00 Blood Pressure 145/79 11/15/17 10:00 O2 Sat by Pulse Oximetry (%) 96 11/15/17 09:00 Constitutional: Yes: No Distress, Calm Eyes: Yes: Conjunctiva Clear, EOM Intact Neck: Yes: Supple, Trachea Midline Cardiovascular: Yes: Regular Rate and Rhythm, S1, S2. No: Murmur Respiratory: Yes: Regular, CTA Bilaterally. No: Rales, Rhonchi, Wheezes Gastrointestinal: Yes: Normal Bowel Sounds, Soft. No: Distention, Tenderness Labs: CBC, BMP 11/14/17 05:48 11/15/17 05:30 INR, PTT INR 1.26 (0.83-1.09) H 11/13/17 17:00 Problem List - Problems (1) Shortness of breath Code(s): R06.02 - SHORTNESS OF BREATH (2) Chronic kidney disease (CKD) Code(s): N18.9 - CHRONIC KIDNEY DISEASE, UNSPECIFIED Qualifiers: Chronic kidney disease stage: unspecified stage Qualified Code(s): N18.9 - Chronic kidney disease, unspecified (3) COPD (chronic obstructive pulmonary disease) Code(s): J44.9 - CHRONIC OBSTRUCTIVE PULMONARY DISEASE, UNSPECIFIED (4) Coronary artery disease Code(s): I25.10 - ATHSCL HEART DISEASE OF [place] CORONARY ARTERY W/O ANG PCTRS Qualifiers: Coronary Disease-Associated Artery/Lesion type: bypass graft, other Associated angina: with other forms of angina Qualified Code(s): I25.798 - Atherosclerosis of other coronary artery bypass graft(s) with other forms of angina pectoris (5) Diabetes Code(s): E11.9 - TYPE 2 DIABETES MELLITUS WITHOUT COMPLICATIONS Qualifiers: Diabetes mellitus type: type 2 Diabetes mellitus complication detail: with chronic kidney disease (6) HTN (hypertension) Code(s): I10 - ESSENTIAL (PRIMARY) HYPERTENSION Qualifiers: Hypertension type: essential hypertension Qualified Code(s): I10 - Essential (primary) hypertension (7) Low back pain Code(s): M54.5 - LOW BACK PAIN Assessment/Plan Current Active Problems possible pulmonary embolism Chronic kidney disease (CKD) (Acute) Shortness of breath (Acute) CAD, s/p CABG s/p AICD ischemic cardiomyopathy CHF CAD DM Chronic back pain -cont IV lasix -cont heparin drip, V/Q scan tomorrow -recheck CBC -if platelets fall further then will d/c heparin drip, as clinical picture seems more consistent with fluid overload now
[2017-11-15] MEDS: LACTULOSE 20 GM/30 ML UDC (FOR ORAL USE ONLY) PO SCH ×2 (11:10→21:31)
[2017-11-15] MEDS: LIDOCAINE 5% TOPICAL PATCH TP SCH (11:11)
[2017-11-15] MEDS: HEPARIN - 25,000 UNIT in SODIUM CHLORIDE 495 ML IV SCH (11:24)
[2017-11-15 11:29] LABS: BASO % 0.4 % (0-2.0); EOS % 0.1 % (0-4.5); HEMATOCRIT 24.4 % (35.4-49); HEMOGLOBIN 8.3 GM/dL (11.7-16.9); LYMPH % 3.1 % (8-40); MCH 31.9 pg (25.7-33.7); MEAN CELL VOLUME 93.8 fl (80-96); MEAN PLT VOLUME 8.5 fl (7.5-11.1); MONO % 1.9 % (3.8-10.2); NEUT % 94.5 % (42.8-82.8); PLATELET COUNT 126 K/MM3 (134-434); RDW 16.6 % (11.9-15.9); WHITE BLOOD COUNT 10.8 K/mm3 (4.0-10.0)
[2017-11-15] MEDS ORDERED: LEVALBUTEROL HCL 0.63 MG/3 ML VIAL.NEB. IH PRN (11:30)
[2017-11-15] MEDS ORDERED: INSULIN (NOVOLOG) ASPART 100 UNITS/ML 10ML VIAL ONE (11:52)
--- NOTE | 2017-11-15 11:53 | PN ---
Progress Note (short form) - Note Progress Note: RENAL Pt is awake and alert comfortable says he was more dyspneic with bronchodilator so did not take it Last Vital Signs Temp Pulse Resp BP Pulse Ox 98.2 F 93 H 20 145/79 96 11/15/17 10:00 11/15/17 10:00 11/15/17 10:00 11/15/17 10:00 11/15/17 09:00 lungs rhonchi and decreased breath sounds cvs s1s2 rr abd soft ext +edema neuro a+ox3 CBC, BMP 11/15/17 11:15 11/15/17 05:30 Current Medications Generic Name Dose Route Start Last Admin Trade Name Freq PRN Reason Stop Dose Admin Acetaminophen 325 mg 11/13/17 20:37 11/13/17 22:52 Tylenol - PO 325 mg Q6H PRN Administration PAIN LEVEL 6-10 WITH OXYCODON Amlodipine Besylate 5 mg 11/14/17 10:00 11/15/17 09:09 Norvasc - PO 5 mg DAILY [facility] Administration Aspirin 81 mg 11/14/17 10:00 11/15/17 09:09 Ecotrin - PO 81 mg DAILY [facility] Administration Atorvastatin Calcium 10 mg 11/13/17 22:00 11/14/17 22:22 Lipitor - PO 10 mg HS [facility] Administration Budesonide/Formoterol Fumarate 1 puff 11/14/17 10:00 11/15/17 09:10 Symbicort 160/4.5mcg - IH 1 inh DAILY [facility] Administration Carvedilol 25 mg 11/13/17 22:00 11/15/17 09:09 Coreg - PO 25 mg BID [facility] Administration Cholecalciferol 2,000 unit 11/14/17 10:00 11/15/17 09:09 Vitamin D3 - PO 2,000 unit DAILY [facility] Administration Cilostazol 50 mg 11/14/17 10:00 11/15/17 09:09 Pletal - PO 50 mg DAILY [facility] Administration Clopidogrel Bisulfate 75 mg 11/14/17 10:00 11/15/17 09:09 Plavix - PO 75 mg DAILY [facility] Administration Cyclobenzaprine HCl 10 mg 11/13/17 20:08 Flexeril - PO TID PRN PAIN Docusate Sodium 100 mg 11/13/17 22:00 11/15/17 05:56 Colace - PO 100 mg TID [facility] Administration Ferrous Sulfate 325 mg 11/14/17 10:00 11/15/17 09:09 Feosol - PO 325 mg DAILY [facility] Administration Furosemide 40 mg 11/14/17 10:00 11/15/17 09:10 Lasix Injection - IVPUSH 40 mg DAILY [facility] Administration Heparin Sodium (Porcine) 1,000 unit 11/14/17 08:59 Heparin - IVPUSH PRN PRN Heparin Heparin Sodium (Porcine) 5,000 unit 11/14/17 08:59 11/15/17 02:39 Heparin - IVPUSH 5,000 unit PRN PRN Administration Heparin Heparin Sodium (Porcine) 25, 500 mls @ 20 mls/hr 11/14/17 09:00 11/15/17 11: 24 000 unit/ Sodium Chloride IV 1,250 unit/hr TITR [facility] 25 mls/hr Administration Protocol 1,000 UNIT/HR Insulin Aspart 1 vial 11/13/17 22:00 11/15/17 11:25 Novolog Vial Sliding Scale - SQ 4 units ACHS [facility] Administration Protocol Insulin Detemir 10 units 11/13/17 22:00 11/14/17 23:15 Levemir Vial SQ 10 units HS [facility] Administration Lactulose 20 gm 11/13/17 22:00 11/15/17 11:10 Cephulac (Oral Use) PO 20 gm BID [facility] Administration Levalbuterol HCl 0.63 mg 11/15/17 14:00 Xopenex IH RTID [facility] Levalbuterol HCl 0.63 mg 11/15/17 11:30 Xopenex IH Q6H PRN ASTHMA Lidocaine 1 patch 11/14/17 10:00 11/15/17 11:11 Lidoderm Patch - TP 1 patch DAILY [facility] Administration Lisinopril 5 mg 11/14/17 10:00 11/15/17 09:10 Prinivil PO 5 mg DAILY [facility] Administration Methylprednisolone Sodium Succinate 60 mg 11/14/17 19:30 11/15/17 11:09 Solu-Medrol - IVPUSH 60 mg Q8H [facility] Administration Miscellaneous 1 each 11/13/17 22:00 11/14/17 22:23 Lidoderm Patch Removal MC Not Given DAILY@2200 [facility] Nicotine 21 mg 11/14/17 19:00 11/15/17 09:09 Nicoderm Patch - TD 21 mg DAILY [facility] Administration Oxycodone HCl 10 mg 11/13/17 20:37 11/15/17 05:56 Roxicodone - PO 10 mg Q6H PRN Administration PAIN LEVEL 6-10 Psyllium Hydrophilic Mucilloid 5.85 gm 11/13/17 22:00 11/15/17 09:09 Metamucil (Sugar-Free) - PO 5.85 gm BID [facility] Administration Tiotropium [place] 2 puff 11/15/17 11:45 Spiriva Respimat IH DAILY [facility] Zolpidem Tartrate 10 mg 11/14/17 22:54 11/14/17 23:13 Ambien - PO 10 mg HS PRN Administration INSOMNIA IMPRESSION CKD likely due to diabetes dyspnea with pleural effusion- seems more like chf constipation proteinuria asymmetric edema but doppler was neg PLAN renal function has improved would continue diuresis continue deidra inhibitor and monitor k dc cilostazol given increased mortality in chf MV
[2017-11-15 13:09] LABS: ANISOCYTOSIS 2+; MACROCYTOSIS 1+; PLATELET ESTIMATE NORMAL
[2017-11-15] MEDS: TIOTROPIUM BROMIDE 2.5 MCG (SPIRIVA) RESPIMAT INHALER IH SCH (13:41)
[2017-11-15] MEDS: LEVALBUTEROL HCL 0.63 MG/3 ML VIAL.NEB. IH SCH ×2 (15:36→20:58)
[2017-11-15] MEDS: ATORVASTATIN CA 10 MG TABLET (FP) PO SCH (21:31)
[2017-11-15] MEDS: INSULIN (LEVEMIR) 100 UNITS/ML UNITS SQ SCH (21:36)
[2017-11-15] MEDS: LIDOCAINE PATCH REMOVAL MC SCH (21:43)
[2017-11-15] MEDS: ZOLPIDEM TARTRATE 5 MG TABLET PO PRN (22:55)
[2017-11-16] MEDS: methylPREDNISolone NA SUCC 40 MG/1 ML VIAL IVPUSH SCH ×3 (03:33→22:26)
[2017-11-16] MEDS: oxyCODONE HCL 5 MG TABLET PO PRN ×3 (05:16→22:42)
[2017-11-16] MEDS: HEPARIN - 25,000 UNIT in SODIUM CHLORIDE 495 ML IV SCH ×2 (05:20→09:26)
[2017-11-16] MEDS: DOCUSATE SODIUM 100 MG CAPSULE (FP) PO SCH ×3 (06:07→22:27)
[2017-11-16] MEDS: INSULIN SLIDING SCALE (NOVOLOG) 1 VIAL SQ SCH ×4 (06:07→22:32)
[2017-11-16 07:30] LABS: HEMATOCRIT 25.7 % (35.4-49); HEMOGLOBIN 8.8 GM/dL (11.7-16.9); MCHC 34.1 g/dl (32.0-35.9); MEAN CELL VOLUME 93.8 fl (80-96); MEAN PLT VOLUME 9.3 fl (7.5-11.1); PLATELET COUNT 139 K/MM3 (134-434); RBC 2.74 M/mm3 (4.00-5.60); RDW 16.6 % (11.9-15.9); WHITE BLOOD COUNT 10.3 K/mm3 (4.0-10.0)
[2017-11-16] MEDS: LEVALBUTEROL HCL 0.63 MG/3 ML VIAL.NEB. IH SCH ×3 (07:45→20:22)
[2017-11-16] MEDS: FERROUS SO4 325 MG TABLET (FP) PO SCH (09:27)
[2017-11-16] MEDS: CLOPIDOGREL BISULFATE 75 MG TABLET (FP) PO SCH (09:27)
[2017-11-16] MEDS: amLODIPine BESYLATE 5 MG TABLET (FP) PO SCH (09:27)
[2017-11-16] MEDS: CARVEDILOL 25 MG TABLET (FP) PO SCH ×2 (09:27→22:26)
[2017-11-16] MEDS: CHOLECALCIFEROL (VITAMIN D3) 1,000 UNIT TABLET (FP) PO SCH (09:27)
[2017-11-16] MEDS: ASPIRIN COATED 81 MG TABLET.EC PO SCH (09:27)
[2017-11-16] MEDS: LISINOPRIL 5 MG TABLET (FP) PO SCH (09:27)
[2017-11-16] MEDS: FUROSEMIDE 40 MG/4 ML INJECTABLE VIAL IVPUSH SCH ×2 (09:27→14:00)
[2017-11-16] MEDS: BUDESONIDE/FORMETEROL FUMARATE 160/4.5 mcg INHALER IH SCH (09:28)
[2017-11-16] MEDS: NICOTINE 21 MG/24 HOURS TOPICAL PATCH TD SCH (09:28)
[2017-11-16] MEDS: PSYLLIUM 5.85 GM PACKET PO SCH ×2 (09:28→22:27)
[2017-11-16] MEDS: TIOTROPIUM BROMIDE 2.5 MCG (SPIRIVA) RESPIMAT INHALER IH SCH (09:29)
[2017-11-16] MEDS: LIDOCAINE 5% TOPICAL PATCH TP SCH (09:44)
[2017-11-16] MEDS: LACTULOSE 20 GM/30 ML UDC (FOR ORAL USE ONLY) PO SCH ×2 (09:44→22:26)
--- NOTE | 2017-11-16 10:00 | PN ---
Progress Note, Physician Chief Complaint: Pt sitting in bed in no acute distress. reports sob improving. denies chest pain , worsening sob, n/v/d - Current Medication List Current Medications: Active Medications Acetaminophen (Tylenol -) 325 mg PO Q6H PRN PRN Reason: PAIN LEVEL 6-10 WITH OXYCODON Last Admin: 11/13/17 22:52 Dose: 325 mg Amlodipine Besylate (Norvasc -) 5 mg PO DAILY [facility] Last Admin: 11/16/17 09:27 Dose: 5 mg Aspirin (Ecotrin -) 81 mg PO DAILY [facility] Last Admin: 11/16/17 09:27 Dose: 81 mg Atorvastatin Calcium (Lipitor -) 10 mg PO HS [facility] Last Admin: 11/15/17 21:31 Dose: 10 mg Budesonide/Formoterol Fumarate (Symbicort 160/4.5mcg -) 1 puff IH DAILY [facility] Last Admin: 11/16/17 09:28 Dose: 1 inh Carvedilol (Coreg -) 25 mg PO BID [facility] Last Admin: 11/16/17 09:27 Dose: 25 mg Cholecalciferol (Vitamin D3 -) 2,000 unit PO DAILY [facility] Last Admin: 11/16/17 09:27 Dose: 2,000 unit Clopidogrel Bisulfate (Plavix -) 75 mg PO DAILY [facility] Last Admin: 11/16/17 09:27 Dose: 75 mg Cyclobenzaprine HCl (Flexeril -) 10 mg PO TID PRN PRN Reason: PAIN Docusate Sodium (Colace -) 100 mg PO TID [facility] Last Admin: 11/16/17 06:07 Dose: 100 mg Ferrous Sulfate (Feosol -) 325 mg PO DAILY [facility] Last Admin: 11/16/17 09:27 Dose: 325 mg Furosemide (Lasix Injection -) 40 mg IVPUSH DAILY [facility] Last Admin: 11/16/17 09:27 Dose: 40 mg Heparin Sodium (Porcine) (Heparin -) 1,000 unit IVPUSH PRN PRN PRN Reason: Heparin Heparin Sodium (Porcine) (Heparin -) 5,000 unit IVPUSH PRN PRN PRN Reason: Heparin Last Admin: 11/15/17 02:39 Dose: 5,000 unit Heparin Sodium (Porcine) 25, (000 unit/ Sodium Chloride) 500 mls @ 20 mls/hr IV TITR [facility]; Protocol Last Admin: 11/16/17 09:26 Dose: 1,450 unit/hr, 29 mls/hr Insulin Aspart (Novolog Vial Sliding Scale -) 1 vial SQ ACHS [facility]; Protocol Last Admin: 11/16/17 06:07 Dose: 2 units Insulin Detemir (Levemir Vial) 10 units SQ HS [facility] Last Admin: 11/15/17 21:36 Dose: 10 units Lactulose (Cephulac (Oral Use)) 20 gm PO BID [facility] Last Admin: 11/16/17 09:44 Dose: 20 gm Levalbuterol HCl (Xopenex) 0.63 mg IH RTID [facility] Last Admin: 11/16/17 07:45 Dose: 0.63 mg Levalbuterol HCl (Xopenex) 0.63 mg IH Q6H PRN PRN Reason: ASTHMA Lidocaine (Lidoderm Patch -) 1 patch TP DAILY [facility] Last Admin: 11/16/17 09:44 Dose: 1 patch Lisinopril (Prinivil) 5 mg PO DAILY [facility] Last Admin: 11/16/17 09:27 Dose: 5 mg Methylprednisolone Sodium Succinate (Solu-Medrol -) 60 mg IVPUSH Q8H [facility] Last Admin: 11/16/17 03:33 Dose: 60 mg Miscellaneous (Lidoderm Patch Removal) 1 each MC DAILY@2200 [facility] Last Admin: 11/15/17 21:43 Dose: Not Given Nicotine (Nicoderm Patch -) 21 mg TD DAILY [facility] Last Admin: 11/16/17 09:28 Dose: 21 mg Oxycodone HCl (Roxicodone -) 10 mg PO Q6H PRN PRN Reason: PAIN LEVEL 6-10 Last Admin: 11/16/17 05:16 Dose: 10 mg Psyllium Hydrophilic Mucilloid (Metamucil (Sugar-Free) -) 5.85 gm PO BID [facility] Last Admin: 11/16/17 09:28 Dose: 5.85 gm Tiotropium [place] (Spiriva Respimat) 2 puff IH DAILY [facility] Last Admin: 11/16/17 09:29 Dose: 2 puff Zolpidem Tartrate (Ambien -) 10 mg PO HS PRN PRN Reason: INSOMNIA Last Admin: 11/15/17 22:55 Dose: 10 mg - Objective Vital Signs: Vital Signs Temperature 97.7 F 11/16/17 06:00 Pulse Rate 65 11/16/17 06:00 Respiratory Rate 18 11/16/17 06:00 Blood Pressure 142/74 11/16/17 06:00 O2 Sat by Pulse Oximetry (%) 95 11/15/17 21:00 Constitutional: Yes: Well Nourished, No Distress, Calm Cardiovascular: Yes: Pulse Irregular. No: Murmur Respiratory: Yes: Regular, Diminished, On Nasal O2, Rales (bibasilar), SOB, SOB on Exertion. No: Tachypnea, Wheezes Gastrointestinal: Yes: WNL, Normal Bowel Sounds, Soft. No: Distention, Tenderness Genitourinary: Yes: WNL Musculoskeletal: Yes: WNL Extremities: Yes: WNL Edema: No Neurological: Yes: WNL, Alert, Oriented Psychiatric: Yes: WNL, Alert, Oriented Labs: CBC, BMP 11/16/17 06:22 11/15/17 05:30 INR, PTT INR 1.26 (0.83-1.09) H 11/13/17 17:00 Problem List - Problems (1) Shortness of breath Assessment/Plan: improving suspect secondary to chf exacerbation r/o pe- vq scan pending stop heparin drip if vq scan neg dvt ruled out O2 via nc Code(s): R06.02 - SHORTNESS OF BREATH (2) Elevated d-dimer Assessment/Plan: as above Code(s): R79.1 - ABNORMAL COAGULATION PROFILE (3) Acute exacerbation of CHF (congestive heart failure) Assessment/Plan: CT- fluid overload, pleural effusions lasix iv bid weights O2 prn low na diet cardiology following Code(s): I50.9 - HEART FAILURE, UNSPECIFIED Qualifiers: Heart failure type: systolic Qualified Code(s): I50.23 - Acute on chronic systolic (congestive) heart failure (4) Pleural effusion Assessment/Plan: secondary to acute chf exacerb continue diuresis pulm following Code(s): J90 - PLEURAL EFFUSION, NOT ELSEWHERE CLASSIFIED (5) COPD exacerbation Assessment/Plan: acute nebs/medrol o2 prn pulm following Code(s): J44.1 - CHRONIC OBSTRUCTIVE PULMONARY DISEASE W (ACUTE) EXACERBATION (6) Chronic kidney disease (CKD) Assessment/Plan: at baseline monitor Code(s): N18.9 - CHRONIC KIDNEY DISEASE, UNSPECIFIED Qualifiers: Chronic kidney disease stage: stage 3 (moderate) Qualified Code(s): N18.3 - Chronic kidney disease, stage 3 (moderate) (7) CAD (coronary artery disease) Assessment/Plan: s/p cabgx 3 continue asa/statin/plavix Code(s): I25.10 - ATHSCL HEART DISEASE OF [place] CORONARY ARTERY W/O ANG PCTRS Qualifiers: [place] vs. 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 use: with marine oil terminal superintendent use Diabetes mellitus complication status: with kidney complications Diabetes mellitus complication detail: with chronic kidney disease Chronic kidney disease stage: stage 3 (moderate) Qualified Code(s): E11.22 - Type 2 diabetes mellitus with diabetic chronic kidney disease; N18.3 - Chronic kidney disease, stage 3 (moderate); Z79.4 - marine oil terminal superintendent (current) use of insulin (9) HTN (hypertension) Assessment/Plan: controlled continue lisinopril, amlodipine, carvedilol monitor Code(s): I10 - ESSENTIAL (PRIMARY) HYPERTENSION Qualifiers: Hypertension type: essential hypertension Qualified Code(s): I10 - Essential (primary) hypertension (10) CHF (congestive heart failure) Assessment/Plan: s/p icd acute on chronic as above Code(s): I50.9 - HEART FAILURE, UNSPECIFIED (11) COPD (chronic obstructive pulmonary disease) Assessment/Plan: on O2 dependent at home Code(s): J44.9 - CHRONIC OBSTRUCTIVE PULMONARY DISEASE, UNSPECIFIED Qualifiers: COPD type: COPD with acute exacerbation Qualified Code(s): J44.1 - Chronic obstructive pulmonary disease with (acute) exacerbation (12) Osteoarthritis, multiple sites Assessment/Plan: stable Code(s): M15.9 - POLYOSTEOARTHRITIS, UNSPECIFIED Qualifiers: Osteoarthritis type: primary Qualified Code(s): M15.0 - Primary generalized (osteo)arthritis (13) Low back pain Assessment/Plan: chronic PT analgesics prn Code(s): M54.5 - LOW BACK PAIN Qualifiers: Chronicity: chronic (14) Anemia Assessment/Plan: chronic hg/hct stable monitor Code(s): D64.9 - ANEMIA, UNSPECIFIED Qualifiers: Anemia type: due to chronic kidney disease Chronic kidney disease stage: stage 3 (moderate) Qualified Code(s): N18.3 - Chronic kidney disease, stage 3 (moderate); D63.1 - Anemia in chronic kidney disease (15) Atrial tachycardia Assessment/Plan: stable Code(s): I47.1 - SUPRAVENTRICULAR TACHYCARDIA (16) Peripheral vascular disease Assessment/Plan: pad, stable continue statin/plavix/asa Code(s): I73.9 - PERIPHERAL VASCULAR DISEASE, UNSPECIFIED
--- NOTE | 2017-11-16 10:40 | PN ---
Progress Note, Physician Chief Complaint: sob History of Present Illness: remains sob but better signif incr UOP with lasix no leg swelling, cp, palpit + cigs - Current Medication List Current Medications: Active Medications Acetaminophen (Tylenol -) 325 mg PO Q6H PRN PRN Reason: PAIN LEVEL 6-10 WITH OXYCODON Last Admin: 11/13/17 22:52 Dose: 325 mg Amlodipine Besylate (Norvasc -) 5 mg PO DAILY [facility] Last Admin: 11/16/17 09:27 Dose: 5 mg Aspirin (Ecotrin -) 81 mg PO DAILY [facility] Last Admin: 11/16/17 09:27 Dose: 81 mg Atorvastatin Calcium (Lipitor -) 10 mg PO HS [facility] Last Admin: 11/15/17 21:31 Dose: 10 mg Budesonide/Formoterol Fumarate (Symbicort 160/4.5mcg -) 1 puff IH DAILY [facility] Last Admin: 11/16/17 09:28 Dose: 1 inh Carvedilol (Coreg -) 25 mg PO BID [facility] Last Admin: 11/16/17 09:27 Dose: 25 mg Cholecalciferol (Vitamin D3 -) 2,000 unit PO DAILY [facility] Last Admin: 11/16/17 09:27 Dose: 2,000 unit Clopidogrel Bisulfate (Plavix -) 75 mg PO DAILY [facility] Last Admin: 11/16/17 09:27 Dose: 75 mg Cyclobenzaprine HCl (Flexeril -) 10 mg PO TID PRN PRN Reason: PAIN Docusate Sodium (Colace -) 100 mg PO TID [facility] Last Admin: 11/16/17 06:07 Dose: 100 mg Ferrous Sulfate (Feosol -) 325 mg PO DAILY [facility] Last Admin: 11/16/17 09:27 Dose: 325 mg Furosemide (Lasix Injection -) 40 mg IVPUSH DAILY [facility] Last Admin: 11/16/17 09:27 Dose: 40 mg Heparin Sodium (Porcine) (Heparin -) 1,000 unit IVPUSH PRN PRN PRN Reason: Heparin Heparin Sodium (Porcine) (Heparin -) 5,000 unit IVPUSH PRN PRN PRN Reason: Heparin Last Admin: 11/15/17 02:39 Dose: 5,000 unit Heparin Sodium (Porcine) 25, (000 unit/ Sodium Chloride) 500 mls @ 20 mls/hr IV TITR [facility]; Protocol Last Admin: 11/16/17 09:26 Dose: 1,450 unit/hr, 29 mls/hr Insulin Aspart (Novolog Vial Sliding Scale -) 1 vial SQ ACHS [facility]; Protocol Last Admin: 11/16/17 06:07 Dose: 2 units Insulin Detemir (Levemir Vial) 10 units SQ HS [facility] Last Admin: 11/15/17 21:36 Dose: 10 units Lactulose (Cephulac (Oral Use)) 20 gm PO BID [facility] Last Admin: 11/16/17 09:44 Dose: 20 gm Levalbuterol HCl (Xopenex) 0.63 mg IH RTID [facility] Last Admin: 11/16/17 07:45 Dose: 0.63 mg Levalbuterol HCl (Xopenex) 0.63 mg IH Q6H PRN PRN Reason: ASTHMA Lidocaine (Lidoderm Patch -) 1 patch TP DAILY [facility] Last Admin: 11/16/17 09:44 Dose: 1 patch Lisinopril (Prinivil) 5 mg PO DAILY [facility] Last Admin: 11/16/17 09:27 Dose: 5 mg Methylprednisolone Sodium Succinate (Solu-Medrol -) 60 mg IVPUSH Q8H [facility] Last Admin: 11/16/17 03:33 Dose: 60 mg Miscellaneous (Lidoderm Patch Removal) 1 each MC DAILY@2200 [facility] Last Admin: 11/15/17 21:43 Dose: Not Given Nicotine (Nicoderm Patch -) 21 mg TD DAILY [facility] Last Admin: 11/16/17 09:28 Dose: 21 mg Oxycodone HCl (Roxicodone -) 10 mg PO Q6H PRN PRN Reason: PAIN LEVEL 6-10 Last Admin: 11/16/17 05:16 Dose: 10 mg Psyllium Hydrophilic Mucilloid (Metamucil (Sugar-Free) -) 5.85 gm PO BID [facility] Last Admin: 11/16/17 09:28 Dose: 5.85 gm Tiotropium [place] (Spiriva Respimat) 2 puff IH DAILY [facility] Last Admin: 11/16/17 09:29 Dose: 2 puff Zolpidem Tartrate (Ambien -) 10 mg PO HS PRN PRN Reason: INSOMNIA Last Admin: 11/15/17 22:55 Dose: 10 mg - Objective Vital Signs: Vital Signs Temperature 97.7 F 11/16/17 06:00 Pulse Rate 65 11/16/17 06:00 Respiratory Rate 18 11/16/17 06:00 Blood Pressure 142/74 11/16/17 06:00 O2 Sat by Pulse Oximetry (%) 95 11/15/17 21:00 Constitutional: Yes: No Distress, Calm Eyes: No: Sclera Icterus HENT: No: Nasal Congestion Cardiovascular: Yes: Pulse Irregular, JVD, S1, S2, Other (PMI non diplaced). No : Gallop, Murmur Respiratory: Yes: CTA Bilaterally, Rales. No: Accessory Muscle Use, Wheezes Gastrointestinal: Yes: Normal Bowel Sounds, Soft. No: Tenderness Musculoskeletal: Yes: Other (No kyphosis) Extremities: No: Cold Edema: No Integumentary: No: Jaundice Neurological: Yes: Alert, Oriented (x3) Psychiatric: No: Agitated Labs: CBC, BMP 11/16/17 06:22 INR, PTT INR 1.26 (0.83-1.09) H 11/13/17 17:00 Assessment/Plan ecg: vp foundation ct chest: mild chf, eff L>r, left is chronic echo 06/2015: mild lve, mod-sev dec lvef, mod lae, nl rv size, mild dec rv fcn, mild-mod mr, mild tr, nl avr fcn, rvsp 30-40 echo 06/2016: sev dec lvef, global hk, rv tds, [place], mod-sev mr, mod tr, rvsp 50- 60 mibi 09/2014: large inf scar, mod anteroapical ischemia, lvef 25% mibi 06/2016 (pers): non-diagnostic STs; large area inferior/inferolateral/ lateral scar; no ischemia; severe LV cavity dilation; global HK with akinesis of inferior/inferolat/lateral allan; EF 16% a/p: 62 m hx copd, cabgx3 2012, bio avr 2012, pad s/p b/l sfa occlusions, syst chf s/p medtronic icd, htn, hld, a-tach, here with sob. acute systolic chf/persistent L effusion: -had been doing well as outpt for awhile, now here with sob, possibly mild vol overload, was on lasix 40 qd as outpt (dose had been lowered due to worsening ckd). -states home wt runs 192-196. currently 206. ++ JVD on exam -11/16: subjectively diuresing well to lasix 40 iv qd--change to bid -elevated d-dimer so getting hep gtt until can r/o pe with vq scan. avoiding cta chest 2/2 ckd. acute exacerbation of copd: -also contributing to sob -on iv steroids cad/hx of CABG 2012 -no recent angina/ischemia -present sx's not suggestive for angina, enzymes neg x 3 -cont prior cad med regimen: deidra, dapt, statin, bb, ccb bio avr: -nl fcn on echo 06/20 mitral regurgitation: -likely functional MR, mild-mod on echo 06/19, then "mod-severe" when here 06/20 with suspected acute chf and pulm pressures up (though at risk for overestimation of MR severity on that echo report) -valve morphology not described (tethered leaflets?) -no murmur on exam -reassess MR severity on echo once pt adequately diuresed, though surgical or clip intervention not indicated/proven for functional MR CKD: -cr similar to recent outpt labs, monitor with lasix pad: -stable, no claudication, cont current cardiac meds s/p icd: -no shocks -routine outpt monitoring htn: -cont home meds hld: -cont statin atach: -minimal episodes seen in past on icd checks -cont bb -monitor tele anemia: -chronic, stable counts here vs baseline -per pmd
[2017-11-16 11:37] LABS: CHLORIDE 99 mmol/L (98-107); SODIUM 138 mmol/L (136-145)
--- NOTE | 2017-11-16 11:37 | PN ---
Progress Note, Physician History of Present Illness: PULMONARY ALERT,FEELING BETTER LESS DYSPNEIC,-CP - Current Medication List Current Medications: Active Medications Acetaminophen (Tylenol -) 325 mg PO Q6H PRN PRN Reason: PAIN LEVEL 6-10 WITH OXYCODON Last Admin: 11/13/17 22:52 Dose: 325 mg Amlodipine Besylate (Norvasc -) 5 mg PO DAILY [facility] Last Admin: 11/16/17 09:27 Dose: 5 mg Aspirin (Ecotrin -) 81 mg PO DAILY [facility] Last Admin: 11/16/17 09:27 Dose: 81 mg Atorvastatin Cal[place] (Lipitor -) 10 mg PO HS [facility] Last Admin: 11/15/17 21:31 Dose: 10 mg Budesonide/Formoterol Fumarate (Symbicort 160/4.5mcg -) 1 puff IH DAILY [facility] Last Admin: 11/16/17 09:28 Dose: 1 inh Carvedilol (Coreg -) 25 mg PO BID [facility] Last Admin: 11/16/17 09:27 Dose: 25 mg Cholecalciferol (Vitamin D3 -) 2,000 unit PO DAILY [facility] Last Admin: 11/16/17 09:27 Dose: 2,000 unit Clopidogrel Bisulfate (Plavix -) 75 mg PO DAILY [facility] Last Admin: 11/16/17 09:27 Dose: 75 mg Cyclobenzaprine HCl (Flexeril -) 10 mg PO TID PRN PRN Reason: PAIN Docusate Sodium (Colace -) 100 mg PO TID [facility] Last Admin: 11/16/17 06:07 Dose: 100 mg Ferrous Sulfate (Feosol -) 325 mg PO DAILY [facility] Last Admin: 11/16/17 09:27 Dose: 325 mg Furosemide (Lasix Injection -) 40 mg IVPUSH DAILY [facility] Last Admin: 11/16/17 09:27 Dose: 40 mg Heparin Sodium (Porcine) (Heparin -) 1,000 unit IVPUSH PRN PRN PRN Reason: Heparin Heparin Sodium (Porcine) (Heparin -) 5,000 unit IVPUSH PRN PRN PRN Reason: Heparin Last Admin: 11/15/17 02:39 Dose: 5,000 unit Heparin Sodium (Porcine) 25, (000 unit/ Sodium Chloride) 500 mls @ 20 mls/hr IV TITR [facility]; Protocol Last Admin: 11/16/17 09:26 Dose: 1,450 unit/hr, 29 mls/hr Insulin Aspart (Novolog Vial Sliding Scale -) 1 vial SQ ACHS [facility]; Protocol Last Admin: 11/16/17 06:07 Dose: 2 units Insulin Detemir (Levemir Vial) 10 units SQ HS [facility] Last Admin: 11/15/17 21:36 Dose: 10 units Lactulose (Cephulac (Oral Use)) 20 gm PO BID [facility] Last Admin: 11/16/17 09:44 Dose: 20 gm Levalbuterol HCl (Xopenex) 0.63 mg IH RTID [facility] Last Admin: 11/16/17 07:45 Dose: 0.63 mg Levalbuterol HCl (Xopenex) 0.63 mg IH Q6H PRN PRN Reason: ASTHMA Lidocaine (Lidoderm Patch -) 1 patch TP DAILY [facility] Last Admin: 11/16/17 09:44 Dose: 1 patch Lisinopril (Prinivil) 5 mg PO DAILY [facility] Last Admin: 11/16/17 09:27 Dose: 5 mg Methylprednisolone Sodium Succinate (Solu-Medrol -) 60 mg IVPUSH Q8H [facility] Last Admin: 11/16/17 03:33 Dose: 60 mg Miscellaneous (Lidoderm Patch Removal) 1 each MC DAILY@2200 [facility] Last Admin: 11/15/17 21:43 Dose: Not Given Nicotine (Nicoderm Patch -) 21 mg TD DAILY [facility] Last Admin: 11/16/17 09:28 Dose: 21 mg Oxycodone HCl (Roxicodone -) 10 mg PO Q6H PRN PRN Reason: PAIN LEVEL 6-10 Last Admin: 11/16/17 05:16 Dose: 10 mg Psyllium Hydrophilic Mucilloid (Metamucil (Sugar-Free) -) 5.85 gm PO BID [facility] Last Admin: 11/16/17 09:28 Dose: 5.85 gm Tiotropium [place] (Spiriva Respimat) 2 puff IH DAILY [facility] Last Admin: 11/16/17 09:29 Dose: 2 puff Zolpidem Tartrate (Ambien -) 10 mg PO HS PRN PRN Reason: INSOMNIA Last Admin: 11/15/17 22:55 Dose: 10 mg - Objective Vital Signs: Vital Signs Temperature 98 F 11/16/17 11:00 Pulse Rate 90 11/16/17 11:00 Respiratory Rate 11/16/17 11:00 Blood Pressure 154/100 11/16/17 11:00 O2 Sat by Pulse Oximetry (%) 97 11/16/17 09:00 Constitutional: Yes: Well Nourished, Calm Eyes: Yes: WNL HENT: Yes: WNL Neck: Yes: WNL Cardiovascular: Yes: Regular Rate and Rhythm, S1, S2 Respiratory: Yes: Rales (BIBASILAR RALES) Gastrointestinal: Yes: Normal Bowel Sounds, Soft Extremities: Yes: WNL Edema: No Labs: CBC, BMP 11/16/17 06:22 INR, PTT INR 1.26 (0.83-1.09) H 11/13/17 17:00 Assessment/Plan Problem List - Problems (1) Chronic kidney disease (CKD) Code(s): N18.9 - CHRONIC KIDNEY DISEASE, UNSPECIFIED Qualifiers: Chronic kidney disease stage: unspecified stage Qualified Code(s): N18.9 - Chronic kidney disease, unspecified (2) Shortness of breath Code(s): R06.02 - SHORTNESS OF BREATH (3) Bronchitis Code(s): J40 - BRONCHITIS, NOT SPECIFIED ACUTE OR CHRONIC (4) Cough Code(s): R05 - COUGH (5) Elevated d-dimer Code(s): R79.1 - ABNORMAL COAGULATION PROFILE (6) Hyperkalemia Code(s): E87.5 - HYPERKALEMIA (7) CAD (coronary artery disease) Code(s): I25.10 - ATHSCL HEART DISEASE OF [place] CORONARY ARTERY W/O ANG PCTRS (8) CHF (congestive heart failure) Code(s): I50.9 - HEART FAILURE, UNSPECIFIED Qualifiers: Qualified Code(s): I50.22 - Chronic systolic (congestive) heart failure (9) COPD (chronic obstructive pulmonary disease) Code(s): J44.9 - CHRONIC OBSTRUCTIVE PULMONARY DISEASE, UNSPECIFIED (10) Coronary artery disease Code(s): I25.10 - ATHSCL HEART DISEASE OF [place] CORONARY ARTERY W/O ANG PCTRS Qualifiers: Coronary Disease-Associated Artery/Lesion type: bypass graft, other Associated angina: with other forms of angina Qualified Code(s): I25.798 - Atherosclerosis of other coronary artery bypass graft(s) with other forms of angina pectoris (11) Diabetes Code(s): E11.9 - TYPE 2 DIABETES MELLITUS WITHOUT COMPLICATIONS Qualifiers: Diabetes mellitus type: type 2 Diabetes mellitus complication detail: with chronic kidney disease (12) HTN (hypertension) Code(s): I10 - ESSENTIAL (PRIMARY) HYPERTENSION Qualifiers: Hypertension type: essential hypertension Qualified Code(s): I10 - Essential (primary) hypertension (13) Peripheral vascular disease Code(s): I73.9 - PERIPHERAL VASCULAR DISEASE, UNSPECIFIED (14) Pulmonary hypertension Code(s): I27.2 - OTHER SECONDARY PULMONARY HYPERTENSION * DO NOT USE * (15) S/P CABG x 3 Code(s): Z95.1 - PRESENCE OF AORTOCORONARY BYPASS GRAFT Assessment/Plan Low clinical suspicion of VTE (Wells score essentially 0) DVT ruled out Lasix daily O2 as needed Daily weight Medrol DR [place] Problem List - Problems (1) Chronic kidney disease (CKD) Code(s): N18.9 - CHRONIC KIDNEY DISEASE, UNSPECIFIED Qualifiers: Qualified Code(s): N18.9 - Chronic kidney disease, unspecified (2) Shortness of breath Code(s): R06.02 - SHORTNESS OF BREATH (3) Bronchitis Code(s): J40 - BRONCHITIS, NOT SPECIFIED ACUTE OR CHRONIC (4) Cough Code(s): R05 - COUGH (5) Elevated d-dimer Code(s): R79.1 - ABNORMAL COAGULATION PROFILE (6) Hyperkalemia Code(s): E87.5 - HYPERKALEMIA (7) CAD (coronary artery disease) Code(s): I25.10 - ATHSCL HEART DISEASE OF [place] CORONARY ARTERY W/O ANG PCTRS (8) CHF (congestive heart failure) Code(s): I50.9 - HEART FAILURE, UNSPECIFIED Qualifiers: Qualified Code(s): I50.22 - Chronic systolic (congestive) heart failure (9) COPD (chronic obstructive pulmonary disease) Code(s): J44.9 - CHRONIC OBSTRUCTIVE PULMONARY DISEASE, UNSPECIFIED (10) Coronary artery disease Code(s): I25.10 - ATHSCL HEART DISEASE OF [place] CORONARY ARTERY W/O ANG PCTRS Qualifiers: Qualified Code(s): I25.798 - Atherosclerosis of other coronary artery bypass graft(s) with other forms of angina pectoris (11) Diabetes Code(s): E11.9 - TYPE 2 DIABETES MELLITUS WITHOUT COMPLICATIONS (12) HTN (hypertension) Code(s): I10 - ESSENTIAL (PRIMARY) HYPERTENSION Qualifiers: Qualified Code(s): I10 - Essential (primary) hypertension (13) Peripheral vascular disease Code(s): I73.9 - PERIPHERAL VASCULAR DISEASE, UNSPECIFIED (14) Pulmonary hypertension Code(s): I27.2 - OTHER SECONDARY PULMONARY HYPERTENSION * DO NOT USE * (15) S/P CABG x 3 Code(s): Z95.1 - PRESENCE OF AORTOCORONARY BYPASS GRAFT
[2017-11-16 11:57] LABS: ANION GAP 11 (8-16); BLOOD UREA NITROGEN 61 mg/dL (7-18); CALCIUM 8.8 mg/dL (8.5-10.1); CO2 28 mmol/L (21-32); CREATININE 2.3 mg/dL (0.7-1.3); GLUCOSE,RANDOM 224 mg/dL (74-106)
--- NOTE | 2017-11-16 13:22 | PN ---
Progress Note, Physician History of Present Illness: Pt seen and examined at bedside. He still complains of shortness of breath with minimal exertion. He denies chest pain. - Current Medication List Current Medications: Active Medications Acetaminophen (Tylenol -) 325 mg PO Q6H PRN PRN Reason: PAIN LEVEL 6-10 WITH OXYCODON Last Admin: 11/13/17 22:52 Dose: 325 mg Amlodipine Besylate (Norvasc -) 5 mg PO DAILY [facility] Last Admin: 11/16/17 09:27 Dose: 5 mg Aspirin (Ecotrin -) 81 mg PO DAILY [facility] Last Admin: 11/16/17 09:27 Dose: 81 mg Atorvastatin Calcium (Lipitor -) 10 mg PO HS [facility] Last Admin: 11/15/17 21:31 Dose: 10 mg Budesonide/Formoterol Fumarate (Symbicort 160/4.5mcg -) 1 puff IH DAILY [facility] Last Admin: 11/16/17 09:28 Dose: 1 inh Carvedilol (Coreg -) 25 mg PO BID [facility] Last Admin: 11/16/17 09:27 Dose: 25 mg Cholecalciferol (Vitamin D3 -) 2,000 unit PO DAILY [facility] Last Admin: 11/16/17 09:27 Dose: 2,000 unit Clopidogrel Bisulfate (Plavix -) 75 mg PO DAILY [facility] Last Admin: 11/16/17 09:27 Dose: 75 mg Cyclobenzaprine HCl (Flexeril -) 10 mg PO TID PRN PRN Reason: PAIN Docusate Sodium (Colace -) 100 mg PO TID [facility] Last Admin: 11/16/17 06:07 Dose: 100 mg Ferrous Sulfate (Feosol -) 325 mg PO DAILY [facility] Last Admin: 11/16/17 09:27 Dose: 325 mg Furosemide (Lasix Injection -) 40 mg IVPUSH BIDLASIX [facility] Heparin Sodium (Porcine) (Heparin -) 1,000 unit IVPUSH PRN PRN PRN Reason: Heparin Heparin Sodium (Porcine) (Heparin -) 5,000 unit IVPUSH PRN PRN PRN Reason: Heparin Last Admin: 11/15/17 02:39 Dose: 5,000 unit Heparin Sodium (Porcine) 25, (000 unit/ Sodium Chloride) 500 mls @ 20 mls/hr IV TITR [facility]; Protocol Last Admin: 11/16/17 09:26 Dose: 1,450 unit/hr, 29 mls/hr Insulin Aspart (Novolog Vial Sliding Scale -) 1 vial SQ ACHS [facility]; Protocol Last Admin: 11/16/17 12:22 Dose: 4 units Insulin Detemir (Levemir Vial) 10 units SQ HS [facility] Last Admin: 11/15/17 21:36 Dose: 10 units Lactulose (Cephulac (Oral Use)) 20 gm PO BID [facility] Last Admin: 11/16/17 09:44 Dose: 20 gm Levalbuterol HCl (Xopenex) 0.63 mg IH RTID [facility] Last Admin: 11/16/17 07:45 Dose: 0.63 mg Levalbuterol HCl (Xopenex) 0.63 mg IH Q6H PRN PRN Reason: ASTHMA Lidocaine (Lidoderm Patch -) 1 patch TP DAILY [facility] Last Admin: 11/16/17 09:44 Dose: 1 patch Lisinopril (Prinivil) 5 mg PO DAILY [facility] Last Admin: 11/16/17 09:27 Dose: 5 mg Methylprednisolone Sodium Succinate (Solu-Medrol -) 60 mg IVPUSH Q8H [facility] Last Admin: 11/16/17 12:29 Dose: 60 mg Miscellaneous (Lidoderm Patch Removal) 1 each MC DAILY@2200 [facility] Last Admin: 11/15/17 21:43 Dose: Not Given Nicotine (Nicoderm Patch -) 21 mg TD DAILY [facility] Last Admin: 11/16/17 09:28 Dose: 21 mg Oxycodone HCl (Roxicodone -) 10 mg PO Q6H PRN PRN Reason: PAIN LEVEL 6-10 Last Admin: 11/16/17 05:16 Dose: 10 mg Psyllium Hydrophilic Mucilloid (Metamucil (Sugar-Free) -) 5.85 gm PO BID [facility] Last Admin: 11/16/17 09:28 Dose: 5.85 gm Tiotropium [place] (Spiriva Respimat) 2 puff IH DAILY [facility] Last Admin: 11/16/17 09:29 Dose: 2 puff Zolpidem Tartrate (Ambien -) 10 mg PO HS PRN PRN Reason: INSOMNIA Last Admin: 11/15/17 22:55 Dose: 10 mg - Objective Vital Signs: Vital Signs Temperature 98 F 11/16/17 11:00 Pulse Rate 90 11/16/17 11:00 Respiratory Rate 11/16/17 11:00 Blood Pressure 154/100 11/16/17 11:00 O2 Sat by Pulse Oximetry (%) 97 11/16/17 09:00 Constitutional: Yes: Calm Eyes: Yes: Conjunctiva Clear HENT: Yes: Atraumatic Cardiovascular: Yes: S1, S2 Respiratory: Yes: On Nasal O2 Gastrointestinal: Yes: Soft Genitourinary: Yes: WNL Musculoskeletal: Yes: WNL Edema: Yes Edema: LLE: 1+, RLE: 1+ Neurological: Yes: Oriented Psychiatric: Yes: Oriented Labs: CBC, BMP 11/16/17 06:22 11/16/17 10:00 INR, PTT INR 1.26 (0.83-1.09) H 11/13/17 17:00 Problem List - Problems (1) Acute exacerbation of CHF (congestive heart failure) Code(s): I50.9 - HEART FAILURE, UNSPECIFIED Qualifiers: Heart failure type: systolic Qualified Code(s): I50.23 - Acute on chronic systolic (congestive) heart failure (2) COPD exacerbation Code(s): J44.1 - CHRONIC OBSTRUCTIVE PULMONARY DISEASE W (ACUTE) EXACERBATION (3) Chronic kidney disease (CKD) Code(s): N18.9 - CHRONIC KIDNEY DISEASE, UNSPECIFIED Qualifiers: Chronic kidney disease stage: unspecified stage Qualified Code(s): N18.9 - Chronic kidney disease, unspecified (4) Shortness of breath Code(s): R06.02 - SHORTNESS OF BREATH Assessment/Plan Current Medications Generic Name Dose Route Start Last Admin Trade Name Freq PRN Reason Stop Dose Admin Acetaminophen 325 mg 11/13/17 20:37 11/13/17 22:52 Tylenol - PO 325 mg Q6H PRN Administration PAIN LEVEL 6-10 WITH OXYCODON Amlodipine Besylate 5 mg 11/14/17 10:00 11/16/17 09:27 Norvasc - PO 5 mg DAILY [facility]U Administration Aspirin 81 mg 11/14/17 10:00 11/16/17 09:27 Ecotrin - PO 81 mg DAILY [facility]U Administration Atorvastatin Calcium 10 mg 11/13/17 22:00 11/15/17 21:31 Lipitor - PO 10 mg HS [facility]JU Administration Budesonide/Formoterol Fumarate 1 puff 11/14/17 10:00 11/16/17 09:28 Symbicort 160/4.5mcg - IH 1 inh DAILY [facility] Administration Carvedilol 25 mg 11/13/17 22:00 11/16/17 09:27 Coreg - PO 25 mg BID [facility]JU Administration Cholecalciferol 2,000 unit 11/14/17 10:00 11/16/17 09:27 Vitamin D3 - PO 2,000 unit DAILY [facility] Administration Clopidogrel Bisulfate 75 mg 11/14/17 10:00 11/16/17 09:27 Plavix - PO 75 mg DAILY [facility] Administration Cyclobenzaprine HCl 10 mg 11/13/17 20:08 Flexeril - PO TID PRN PAIN Docusate Sodium 100 mg 11/13/17 22:00 11/16/17 06:07 Colace - PO 100 mg TID [facility]U Administration Ferrous Sulfate 325 mg 11/14/17 10:00 11/16/17 09:27 Feosol - PO 325 mg DAILY [facility] Administration Furosemide 40 mg 11/16/17 14:00 Lasix Injection - IVPUSH BIDLASIX [facility]U Heparin Sodium (Porcine) 1,000 unit 11/14/17 08:59 Heparin - IVPUSH PRN PRN Heparin Heparin Sodium (Porcine) 5,000 unit 11/14/17 08:59 11/15/17 02:39 Heparin - IVPUSH 5,000 unit PRN PRN Administration Heparin Heparin Sodium (Porcine) 25, 500 mls @ 20 mls/hr 11/14/17 09:00 11/16/17 09: 26 000 unit/ Sodium Chloride IV 1,450 unit/hr TITR [facility]U 29 mls/hr Administration Protocol 1,000 UNIT/HR Insulin Aspart 1 vial 11/13/17 22:00 11/16/17 12:22 Novolog Vial Sliding Scale - SQ 4 units ACHS [facility] Administration Protocol Insulin Detemir 10 units 11/13/17 22:00 11/15/17 21:36 Levemir Vial SQ 10 units HS [facility] Administration Lactulose 20 gm 11/13/17 22:00 11/16/17 09:44 Cephulac (Oral Use) PO 20 gm BID [facility] Administration Levalbuterol HCl 0.63 mg 11/15/17 14:00 11/16/17 07:45 Xopenex IH 0.63 mg RTID [facility] Administration Levalbuterol HCl 0.63 mg 11/15/17 11:30 Xopenex IH Q6H PRN ASTHMA Lidocaine 1 patch 11/14/17 10:00 11/16/17 09:44 Lidoderm Patch - TP 1 patch DAILY [facility] Administration Lisinopril 5 mg 11/14/17 10:00 11/16/17 09:27 Prinivil PO 5 mg DAILY [facility] Administration Methylprednisolone Sodium Succinate 60 mg 11/14/17 19:30 11/16/17 12:29 Solu-Medrol - IVPUSH 60 mg Q8H [facility] Administration Miscellaneous 1 each 11/13/17 22:00 11/15/17 21:43 Lidoderm Patch Removal MC Not Given DAILY@2200 [facility] Nicotine 21 mg 11/14/17 19:00 11/16/17 09:28 Nicoderm Patch - TD 21 mg DAILY [facility] Administration Oxycodone HCl 10 mg 11/13/17 20:37 11/16/17 05:16 Roxicodone - PO 10 mg Q6H PRN Administration PAIN LEVEL 6-10 Psyllium Hydrophilic Mucilloid 5.85 gm 11/13/17 22:00 11/16/17 09:28 Metamucil (Sugar-Free) - PO 5.85 gm BID [facility] Administration Tiotropium [place] 2 puff 11/15/17 11:45 11/16/17 09:29 Spiriva Respimat IH 2 puff DAILY [facility] Administration Zolpidem Tartrate 10 mg 11/14/17 22:54 11/15/17 22:55 Ambien - PO 10 mg HS PRN Administration INSOMNIA Impression 1. CKD 2. proteinuria 3. CAD 4. CHF 5. COPD 6. DM 7. HTN Plan - cont lasix - check prt to fish bin tender ration - repeat labs in am - check daily weights - avoid nsiads Dr Belcher
[2017-11-16] MEDS: ACETAMINOPHEN 325 MG TABLET (FP) PO PRN (17:12)
[2017-11-16 17:19] LABS: URINE CREATININE 23.3 mg/dL (20-370)
[2017-11-16 17:29] LABS: RATIO URIN PROTEIN/URIN CREAT 0.77 MG/DL
[2017-11-16] MEDS ORDERED: PT OWN MED DRAWER 7, Y5N ONE (20:13)
[2017-11-16] MEDS: ATORVASTATIN CA 10 MG TABLET (FP) PO SCH (22:26)
[2017-11-16] MEDS: ZOLPIDEM TARTRATE 5 MG TABLET PO PRN (22:26)
[2017-11-16] MEDS: INSULIN (LEVEMIR) 100 UNITS/ML UNITS SQ SCH (22:31)
[2017-11-16] MEDS: LIDOCAINE PATCH REMOVAL MC SCH (22:39)
[2017-11-17] MEDS: methylPREDNISolone NA SUCC 40 MG/1 ML VIAL IVPUSH SCH ×3 (03:32→20:13)
[2017-11-17] MEDS: oxyCODONE HCL 5 MG TABLET PO PRN ×3 (06:08→19:54)
[2017-11-17] MEDS: DOCUSATE SODIUM 100 MG CAPSULE (FP) PO SCH ×3 (06:09→21:51)
[2017-11-17] MEDS: FUROSEMIDE 40 MG/4 ML INJECTABLE VIAL IVPUSH SCH ×2 (06:09→15:55)
[2017-11-17] MEDS: INSULIN SLIDING SCALE (NOVOLOG) 1 VIAL SQ SCH ×4 (06:18→21:52)
[2017-11-17 07:40] LABS: HEMATOCRIT 28.7 % (35.4-49); HEMOGLOBIN 9.9 GM/dL (11.7-16.9); MCH 31.9 pg (25.7-33.7); MCHC 34.3 g/dl (32.0-35.9); MEAN CELL VOLUME 93.2 fl (80-96); MEAN PLT VOLUME 8.8 fl (7.5-11.1); PLATELET COUNT 155 K/MM3 (134-434); RBC 3.08 M/mm3 (4.00-5.60); RDW 16.8 % (11.9-15.9); WHITE BLOOD COUNT 11.5 K/mm3 (4.0-10.0)
[2017-11-17 08:07] LABS: ANION GAP 10 (8-16); BLOOD UREA NITROGEN 65 mg/dL (7-18); CALCIUM 9.2 mg/dL (8.5-10.1); CHLORIDE 101 mmol/L (98-107); CO2 28 mmol/L (21-32); GLUCOSE,RANDOM 172 mg/dL (74-106); POTASSIUM 4.1 mmol/L (3.5-5.1); SODIUM 139 mmol/L (136-145)
[2017-11-17] MEDS ORDERED: PT OWN MED DRAWER 7, Y5N ONE ×2 (08:47→09:23)
[2017-11-17] MEDS: LEVALBUTEROL HCL 0.63 MG/3 ML VIAL.NEB. IH SCH ×3 (09:01→19:32)
[2017-11-17] MEDS: NICOTINE 21 MG/24 HOURS TOPICAL PATCH TD SCH (10:06)
[2017-11-17] MEDS: CLOPIDOGREL BISULFATE 75 MG TABLET (FP) PO SCH (10:06)
[2017-11-17] MEDS: ASPIRIN COATED 81 MG TABLET.EC PO SCH (10:06)
[2017-11-17] MEDS: CARVEDILOL 25 MG TABLET (FP) PO SCH ×2 (10:06→21:50)
[2017-11-17] MEDS: CHOLECALCIFEROL (VITAMIN D3) 1,000 UNIT TABLET (FP) PO SCH (10:06)
[2017-11-17] MEDS: LIDOCAINE 5% TOPICAL PATCH TP SCH (10:06)
[2017-11-17] MEDS: LISINOPRIL 5 MG TABLET (FP) PO SCH (10:06)
[2017-11-17] MEDS: amLODIPine BESYLATE 5 MG TABLET (FP) PO SCH (10:06)
[2017-11-17] MEDS: PSYLLIUM 5.85 GM PACKET PO SCH ×2 (10:06→21:51)
[2017-11-17] MEDS: FERROUS SO4 325 MG TABLET (FP) PO SCH (10:06)
[2017-11-17] MEDS: LACTULOSE 20 GM/30 ML UDC (FOR ORAL USE ONLY) PO SCH ×2 (10:06→21:51)
[2017-11-17] MEDS: BUDESONIDE/FORMETEROL FUMARATE 160/4.5 mcg INHALER IH SCH (10:08)
[2017-11-17] MEDS: TIOTROPIUM BROMIDE 2.5 MCG (SPIRIVA) RESPIMAT INHALER IH SCH (10:09)
--- NOTE | 2017-11-17 10:25 | PN ---
Progress Note, Physician Chief Complaint: Pt sitting in bed in no acute distress. reports sob improved. on O2 2l, which he is on at home. denies chest pain, worsening sob, n/v/d - Current Medication List Current Medications: Active Medications Acetaminophen (Tylenol -) 325 mg PO Q6H PRN PRN Reason: PAIN LEVEL 6-10 WITH OXYCODON Last Admin: 11/16/17 17:12 Dose: 325 mg Amlodipine Besylate (Norvasc -) 5 mg PO DAILY [facility] Last Admin: 11/17/17 10:06 Dose: 5 mg Aspirin (Ecotrin -) 81 mg PO DAILY [facility] Last Admin: 11/17/17 10:06 Dose: 81 mg Atorvastatin Calcium (Lipitor -) 10 mg PO HS [facility] Last Admin: 11/16/17 22:26 Dose: 10 mg Budesonide/Formoterol Fumarate (Symbicort 160/4.5mcg -) 1 puff IH DAILY [facility] Last Admin: 11/17/17 10:08 Dose: 1 inh Carvedilol (Coreg -) 25 mg PO BID [facility] Last Admin: 11/17/17 10:06 Dose: 25 mg Cholecalciferol (Vitamin D3 -) 2,000 unit PO DAILY [facility] Last Admin: 11/17/17 10:06 Dose: 2,000 unit Clopidogrel Bisulfate (Plavix -) 75 mg PO DAILY [facility] Last Admin: 11/17/17 10:06 Dose: 75 mg Cyclobenzaprine HCl (Flexeril -) 10 mg PO TID PRN PRN Reason: PAIN Docusate Sodium (Colace -) 100 mg PO TID [facility] Last Admin: 11/17/17 06:09 Dose: 100 mg Ferrous Sulfate (Feosol -) 325 mg PO DAILY [facility] Last Admin: 11/17/17 10:06 Dose: 325 mg Furosemide (Lasix Injection -) 40 mg IVPUSH BIDLASIX [facility] Last Admin: 11/17/17 06:09 Dose: 40 mg Heparin Sodium (Porcine) (Heparin -) 1,000 unit IVPUSH PRN PRN PRN Reason: Heparin Heparin Sodium (Porcine) (Heparin -) 5,000 unit IVPUSH PRN PRN PRN Reason: Heparin Last Admin: 11/15/17 02:39 Dose: 5,000 unit Heparin Sodium (Porcine) 25, (000 unit/ Sodium Chloride) 500 mls @ 20 mls/hr IV TITR [facility]; Protocol Last Admin: 11/16/17 09:26 Dose: 1,450 unit/hr, 29 mls/hr Insulin Aspart (Novolog Vial Sliding Scale -) 1 vial SQ ACHS [facility]; Protocol Last Admin: 11/17/17 06:18 Dose: Not Given Insulin Detemir (Levemir Vial) 10 units SQ HS [facility] Last Admin: 11/16/17 22:31 Dose: 10 units Lactulose (Cephulac (Oral Use)) 20 gm PO BID [facility] Last Admin: 11/17/17 10:06 Dose: 20 gm Levalbuterol HCl (Xopenex) 0.63 mg IH RTID [facility] Last Admin: 11/17/17 09:01 Dose: 0.63 mg Levalbuterol HCl (Xopenex) 0.63 mg IH Q6H PRN PRN Reason: ASTHMA Lidocaine (Lidoderm Patch -) 1 patch TP DAILY [facility] Last Admin: 11/17/17 10:06 Dose: Not Given Lisinopril (Prinivil) 5 mg PO DAILY [facility] Last Admin: 11/17/17 10:06 Dose: 5 mg Methylprednisolone Sodium Succinate (Solu-Medrol -) 60 mg IVPUSH Q8H [facility] Last Admin: 11/17/17 03:32 Dose: 60 mg Miscellaneous (Lidoderm Patch Removal) 1 each MC DAILY@2200 [facility] Last Admin: 11/16/17 22:39 Dose: Not Given Nicotine (Nicoderm Patch -) 21 mg TD DAILY [facility] Last Admin: 11/17/17 10:06 Dose: 21 mg Oxycodone HCl (Roxicodone -) 10 mg PO Q6H PRN PRN Reason: PAIN LEVEL 6-10 Last Admin: 11/17/17 06:08 Dose: 10 mg Psyllium Hydrophilic Mucilloid (Metamucil (Sugar-Free) -) 5.85 gm PO BID [facility] Last Admin: 11/17/17 10:06 Dose: 5.85 gm Tiotropium [place] (Spiriva Respimat) 2 puff IH DAILY [facility] Last Admin: 11/17/17 10:09 Dose: 2 puff Zolpidem Tartrate (Ambien -) 10 mg PO HS PRN PRN Reason: INSOMNIA Last Admin: 11/16/17 22:26 Dose: 10 mg - Objective Vital Signs: Vital Signs Temperature 97.6 F 11/17/17 02:00 Pulse Rate 93 H 11/17/17 09:00 Respiratory Rate 18 11/17/17 09:00 Blood Pressure 136/96 11/17/17 09:00 O2 Sat by Pulse Oximetry (%) 95 11/17/17 09:00 Constitutional: Yes: Well Nourished, No Distress, Calm Cardiovascular: Yes: Pulse Irregular. No: Murmur Respiratory: Yes: Regular, Diminished, On Nasal O2, Rales, SOB on Exertion. No : Accessory Muscle Use, Tachypnea, Wheezes Gastrointestinal: Yes: WNL, Normal Bowel Sounds, Soft, Abdomen, Obese. No: Distention, Tenderness Genitourinary: Yes: WNL Extremities: Yes: WNL Edema: No Neurological: Yes: WNL, Alert, Oriented Psychiatric: Yes: WNL, Alert, Oriented Labs: CBC, BMP 11/17/17 06:30 11/17/17 06:30 INR, PTT INR 1.26 (0.83-1.09) H 11/13/17 17:00 Problem List - Problems (1) Shortness of breath Code(s): R06.02 - SHORTNESS OF BREATH (2) Elevated d-dimer Code(s): R79.1 - ABNORMAL COAGULATION PROFILE (3) Acute exacerbation of CHF (congestive heart failure) Code(s): I50.9 - HEART FAILURE, UNSPECIFIED Qualifiers: Heart failure type: systolic Qualified Code(s): I50.23 - Acute on chronic systolic (congestive) heart failure (4) Pleural effusion Code(s): J90 - PLEURAL EFFUSION, NOT ELSEWHERE CLASSIFIED (5) COPD exacerbation Code(s): J44.1 - CHRONIC OBSTRUCTIVE PULMONARY DISEASE W (ACUTE) EXACERBATION (6) Chronic kidney disease (CKD) Code(s): N18.9 - CHRONIC KIDNEY DISEASE, UNSPECIFIED Qualifiers: Chronic kidney disease stage: stage 3 (moderate) Qualified Code(s): N18.3 - Chronic kidney disease, stage 3 (moderate) (7) CAD (coronary artery disease) Code(s): I25.10 - ATHSCL HEART DISEASE OF [place] CORONARY ARTERY W/O ANG PCTRS Qualifiers: [place] vs. transplanted heart: [place] heart Associated angina: without angina (8) Diabetes Code(s): E11.9 - TYPE 2 DIABETES MELLITUS WITHOUT COMPLICATIONS Qualifiers: Diabetes mellitus type: type 2 Diabetes mellitus product planner insulin use: with product planner use Diabetes mellitus complication status: with kidney complications Diabetes mellitus complication detail: with chronic kidney disease Chronic kidney disease stage: stage 3 (moderate) Qualified Code(s): E11.22 - Type 2 diabetes mellitus with diabetic chronic kidney disease; N18.3 - Chronic kidney disease, stage 3 (moderate); Z79.4 - log sorter (current) use of 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 (10) CHF (congestive heart failure) Code(s): I50.9 - HEART FAILURE, UNSPECIFIED (11) COPD (chronic obstructive pulmonary disease) Code(s): J44.9 - CHRONIC OBSTRUCTIVE PULMONARY DISEASE, UNSPECIFIED Qualifiers: COPD type: COPD with acute exacerbation Qualified Code(s): J44.1 - Chronic obstructive pulmonary disease with (acute) exacerbation (12) Osteoarthritis, multiple sites Code(s): M15.9 - POLYOSTEOARTHRITIS, UNSPECIFIED Qualifiers: Osteoarthritis type: primary Qualified Code(s): M15.0 - Primary generalized (osteo)arthritis (13) Low back pain Code(s): M54.5 - LOW BACK PAIN Qualifiers: Chronicity: chronic (14) Anemia Code(s): D64.9 - ANEMIA, UNSPECIFIED Qualifiers: Anemia type: due to chronic kidney disease Chronic kidney disease stage: stage 3 (moderate) Qualified Code(s): N18.3 - Chronic kidney disease, stage 3 (moderate); D63.1 - Anemia in chronic kidney disease (15) Atrial tachycardia Code(s): I47.1 - SUPRAVENTRICULAR TACHYCARDIA (16) Peripheral vascular disease Code(s): I73.9 - PERIPHERAL VASCULAR DISEASE, UNSPECIFIED Assessment/Plan (1) Shortness of breath Assessment/Plan: improving suspect secondary to chf exacerbation r/o pe- vq scan intermediate probability, low suspicion of pe heparin drip d/c'd O2 via nc Code(s): R06.02 - SHORTNESS OF BREATH (2) Elevated d-dimer Assessment/Plan: as above Code(s): R79.1 - ABNORMAL COAGULATION PROFILE (3) Acute exacerbation of CHF (congestive heart failure) Assessment/Plan: CT- fluid overload, pleural effusions lasix iv bid weights O2 NC low na diet cardiology following Code(s): I50.9 - HEART FAILURE, UNSPECIFIED Qualifiers: Heart failure type: systolic Qualified Code(s): I50.23 - Acute on chronic systolic (congestive) heart failure (4) Pleural effusion Assessment/Plan: secondary to acute chf exacerb continue diuresis pulm following Code(s): J90 - PLEURAL EFFUSION, NOT ELSEWHERE CLASSIFIED (5) COPD exacerbation Assessment/Plan: acute, lung exam slowly improving nebs/medrol o2 nc pulm following Code(s): J44.1 - CHRONIC OBSTRUCTIVE PULMONARY DISEASE W (ACUTE) EXACERBATION (6) Chronic kidney disease (CKD) Assessment/Plan: at baseline monitor Code(s): N18.9 - CHRONIC KIDNEY DISEASE, UNSPECIFIED Qualifiers: Chronic kidney disease stage: stage 3 (moderate) Qualified Code(s): N18.3 - Chronic kidney disease, stage 3 (moderate) (7) CAD (coronary artery disease) Assessment/Plan: s/p cabgx 3 continue asa/statin/plavix Code(s): I25.10 - ATHSCL HEART DISEASE OF [place] CORONARY ARTERY W/O ANG PCTRS Qualifiers: [place] vs. transplanted heart: [place] heart Associated angina: without angina (8) Diabetes Assessment/Plan: chronic bgm insulin sliding scale/levemir monitor Code(s): E11.9 - TYPE 2 DIABETES MELLITUS WITHOUT COMPLICATIONS Qualifiers: Diabetes mellitus type: type 2 Diabetes mellitus half-way insulin use: with half-way use Diabetes mellitus complication status: with kidney complications Diabetes mellitus complication detail: with chronic kidney disease Chronic kidney disease stage: stage 3 (moderate) Qualified Code(s): E11.22 - Type 2 diabetes mellitus with diabetic chronic kidney disease; N18.3 - Chronic kidney disease, stage 3 (moderate); Z79.4 - custodial (current) use of insulin (9) HTN (hypertension) Assessment/Plan: controlled continue lisinopril, amlodipine, carvedilol monitor Code(s): I10 - ESSENTIAL (PRIMARY) HYPERTENSION Qualifiers: Hypertension type: essential hypertension Qualified Code(s): I10 - Essential (primary) hypertension (10) CHF (congestive heart failure) Assessment/Plan: s/p icd acute on chronic as above Code(s): I50.9 - HEART FAILURE, UNSPECIFIED (11) COPD (chronic obstructive pulmonary disease) Assessment/Plan: on O2 dependent at home Code(s): J44.9 - CHRONIC OBSTRUCTIVE PULMONARY DISEASE, UNSPECIFIED Qualifiers: COPD type: COPD with acute exacerbation Qualified Code(s): J44.1 - Chronic obstructive pulmonary disease with (acute) exacerbation (12) Osteoarthritis, multiple sites Assessment/Plan: stable Code(s): M15.9 - POLYOSTEOARTHRITIS, UNSPECIFIED Qualifiers: Osteoarthritis type: primary Qualified Code(s): M15.0 - Primary generalized (osteo)arthritis (13) Low back pain Assessment/Plan: chronic PT analgesics prn Code(s): M54.5 - LOW BACK PAIN Qualifiers: Chronicity: chronic (14) Anemia Assessment/Plan: chronic hg/hct stable monitor Code(s): D64.9 - ANEMIA, UNSPECIFIED Qualifiers: Anemia type: due to chronic kidney disease Chronic kidney disease stage: stage 3 (moderate) Qualified Code(s): N18.3 - Chronic kidney disease, stage 3 (moderate); D63.1 - Anemia in chronic kidney disease (15) Atrial tachycardia Assessment/Plan: stable Code(s): I47.1 - SUPRAVENTRICULAR TACHYCARDIA (16) Peripheral vascular disease Assessment/Plan: pad, stable continue statin/plavix/asa Code(s): I73.9 - PERIPHERAL VASCULAR DISEASE, UNSPECIFIED Dispo: Home when pulm/cardiology cleared
--- NOTE | 2017-11-17 10:27 | PN ---
Progress Note (short form) - Note Progress Note: s:sob improving. no cp, edema, palps tele: afib HRs 80s-120s + cigs Current Medications Acetaminophen (Tylenol -) 325 mg PO Q6H PRN PRN Reason: PAIN LEVEL 6-10 WITH OXYCODON Last Admin: 11/16/17 17:12 Dose: 325 mg Amlodipine Besylate (Norvasc -) 5 mg PO DAILY [facility] Last Admin: 11/17/17 10:06 Dose: 5 mg Aspirin (Ecotrin -) 81 mg PO DAILY [facility] Last Admin: 11/17/17 10:06 Dose: 81 mg Atorvastatin Calcium (Lipitor -) 10 mg PO HS [facility] Last Admin: 11/16/17 22:26 Dose: 10 mg Budesonide/Formoterol Fumarate (Symbicort 160/4.5mcg -) 1 puff IH DAILY [facility] Last Admin: 11/17/17 10:08 Dose: 1 inh Carvedilol (Coreg -) 25 mg PO BID [facility] Last Admin: 11/17/17 10:06 Dose: 25 mg Cholecalciferol (Vitamin D3 -) 2,000 unit PO DAILY [facility] Last Admin: 11/17/17 10:06 Dose: 2,000 unit Clopidogrel Bisulfate (Plavix -) 75 mg PO DAILY [facility] Last Admin: 11/17/17 10:06 Dose: 75 mg Cyclobenzaprine HCl (Flexeril -) 10 mg PO TID PRN PRN Reason: PAIN Docusate Sodium (Colace -) 100 mg PO TID [facility] Last Admin: 11/17/17 06:09 Dose: 100 mg Ferrous Sulfate (Feosol -) 325 mg PO DAILY [facility] Last Admin: 11/17/17 10:06 Dose: 325 mg Furosemide (Lasix Injection -) 40 mg IVPUSH BIDLASIX [facility] Last Admin: 11/17/17 06:09 Dose: 40 mg Heparin Sodium (Porcine) (Heparin -) 1,000 unit IVPUSH PRN PRN PRN Reason: Heparin Heparin Sodium (Porcine) (Heparin -) 5,000 unit IVPUSH PRN PRN PRN Reason: Heparin Last Admin: 11/15/17 02:39 Dose: 5,000 unit Heparin Sodium (Porcine) 25, (000 unit/ Sodium Chloride) 500 mls @ 20 mls/hr IV TITR [facility]; Protocol Last Admin: 11/16/17 09:26 Dose: 1,450 unit/hr, 29 mls/hr Insulin Aspart (Novolog Vial Sliding Scale -) 1 vial SQ ACHS [facility]; Protocol Last Admin: 11/17/17 06:18 Dose: Not Given Insulin Detemir (Levemir Vial) 10 units SQ HS [facility] Last Admin: 11/16/17 22:31 Dose: 10 units Lactulose (Cephulac (Oral Use)) 20 gm PO BID [facility] Last Admin: 11/17/17 10:06 Dose: 20 gm Levalbuterol HCl (Xopenex) 0.63 mg IH RTID [facility] Last Admin: 11/17/17 09:01 Dose: 0.63 mg Levalbuterol HCl (Xopenex) 0.63 mg IH Q6H PRN PRN Reason: ASTHMA Lidocaine (Lidoderm Patch -) 1 patch TP DAILY [facility] Last Admin: 11/17/17 10:06 Dose: Not Given Lisinopril (Prinivil) 5 mg PO DAILY [facility] Last Admin: 11/17/17 10:06 Dose: 5 mg Methylprednisolone Sodium Succinate (Solu-Medrol -) 60 mg IVPUSH Q8H [facility] Last Admin: 11/17/17 03:32 Dose: 60 mg Miscellaneous (Lidoderm Patch Removal) 1 each MC DAILY@2200 [facility] Last Admin: 11/16/17 22:39 Dose: Not Given Nicotine (Nicoderm Patch -) 21 mg TD DAILY [facility] Last Admin: 11/17/17 10:06 Dose: 21 mg Oxycodone HCl (Roxicodone -) 10 mg PO Q6H PRN PRN Reason: PAIN LEVEL 6-10 Last Admin: 11/17/17 06:08 Dose: 10 mg Psyllium Hydrophilic Mucilloid (Metamucil (Sugar-Free) -) 5.85 gm PO BID [facility] Last Admin: 11/17/17 10:06 Dose: 5.85 gm Tiotropium [place] (Spiriva Respimat) 2 puff IH DAILY [facility] Last Admin: 11/17/17 10:09 Dose: 2 puff Zolpidem Tartrate (Ambien -) 10 mg PO HS PRN PRN Reason: INSOMNIA Last Admin: 11/16/17 22:26 Dose: 10 mg - Objective Vital Signs: Vital Signs Period Temp Pulse Resp BP Sys/El Pulse Ox Last 24 Hr 97.6 F-98.2 F 81-113 18-22 135-164/76-100 95-99 Constitutional: Yes: No Distress, Calm Eyes: No: Sclera Icterus HENT: No: Nasal Congestion Cardiovascular: Yes: Pulse Irregular, +JVD, S1, S2, Other (PMI non diplaced). No: Gallop, Murmur Respiratory: Yes: CTA Bilaterally, Rales. No: Accessory Muscle Use, Wheezes Gastrointestinal: Yes: Normal Bowel Sounds, Soft. 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, eff L>r, left is chronic echo 06/2015: mild lve, mod-sev dec lvef, mod lae, nl rv size, mild dec rv fcn, mild-mod mr, mild tr, nl avr fcn, rvsp 30-40 echo 06/2016: sev dec lvef, global hk, rv tds, trinity, mod-sev mr, mod tr, rvsp 50- 60 mibi 09/2014: large inf scar, mod anteroapical ischemia, lvef 25% mibi 06/2016 (pers): non-diagnostic STs; large area inferior/inferolateral/ lateral scar; no ischemia; severe LV cavity dilation; global HK with akinesis of inferior/inferolat/lateral allan; EF 16% a/p: 62 m hx copd, cabgx3 2012, bio avr 2012, pad s/p b/l sfa occlusions, syst chf s/p medtronic icd, htn, hld, a-tach, here with sob. acute systolic chf/persistent L effusion: -had been doing well as outpt for awhile, now here with sob, possibly mild vol overload, was on lasix 40 qd as outpt (dose had been lowered due to worsening ckd). -states home wt runs 192-196. weight still up, has JVD on exam and still has sob , although improving -11/16: subjectively diuresing well to lasix 40 iv qd--change to bid -11/17: continue lasix 40 mg IV BID - monitor Cr, daily standing weights elevated d-dimer - intermediate prob of PE on VQ scan - evaluated by pulm, Dr. Manning, low suspicion VTE, heparin gtt dc acute exacerbation of copd: -also contributing to sob -on iv steroids cad/hx of CABG 2012 -no recent angina/ischemia -present sx's not suggestive for angina, enzymes neg x 3 -cont prior cad med regimen: deidra, dapt, statin, bb, ccb bio avr: -nl fcn on echo 06/20 mitral regurgitation: -likely functional MR, mild-mod on echo 06/19, then "mod-severe" when here 06/20 with suspected acute chf and pulm pressures up (though at risk for overestimation of MR severity on that echo report) -valve morphology not described (tethered leaflets?) -no murmur on exam -reassess MR severity on echo once pt adequately diuresed, though surgical or clip intervention not indicated/proven for functional MR CKD: -cr similar to recent outpt labs, monitor with lasix pad: -stable, no claudication, cont current cardiac meds s/p icd: -no shocks -routine outpt monitoring htn: -cont home meds hld: -cont statin atach: -minimal episodes seen in past on icd checks -cont bb -monitor tele anemia: -chronic, stable counts here vs baseline -per pmd
--- NOTE | 2017-11-17 11:38 | PN ---
Progress Note, Physician History of Present Illness: pulmonary alert,feeling better but still mildly dyspneic, v/q scan intermediate probability for pe - Current Medication List Current Medications: Active Medications Acetaminophen (Tylenol -) 325 mg PO Q6H PRN PRN Reason: PAIN LEVEL 6-10 WITH OXYCODON Last Admin: 11/16/17 17:12 Dose: 325 mg Amlodipine Besylate (Norvasc -) 5 mg PO DAILY [facility] Last Admin: 11/17/17 10:06 Dose: 5 mg Aspirin (Ecotrin -) 81 mg PO DAILY [facility] Last Admin: 11/17/17 10:06 Dose: 81 mg Atorvastatin Calcium (Lipitor -) 10 mg PO HS [facility] Last Admin: 11/16/17 22:26 Dose: 10 mg Budesonide/Formoterol Fumarate (Symbicort 160/4.5mcg -) 1 puff IH DAILY [facility] Last Admin: 11/17/17 10:08 Dose: 1 inh Carvedilol (Coreg -) 25 mg PO BID [facility] Last Admin: 11/17/17 10:06 Dose: 25 mg Cholecalciferol (Vitamin D3 -) 2,000 unit PO DAILY [facility] Last Admin: 11/17/17 10:06 Dose: 2,000 unit Clopidogrel Bisulfate (Plavix -) 75 mg PO DAILY [facility] Last Admin: 11/17/17 10:06 Dose: 75 mg Cyclobenzaprine HCl (Flexeril -) 10 mg PO TID PRN PRN Reason: PAIN Docusate Sodium (Colace -) 100 mg PO TID [facility] Last Admin: 11/17/17 06:09 Dose: 100 mg Ferrous Sulfate (Feosol -) 325 mg PO DAILY [facility] Last Admin: 11/17/17 10:06 Dose: 325 mg Furosemide (Lasix Injection -) 40 mg IVPUSH BIDLASIX [facility] Last Admin: 11/17/17 06:09 Dose: 40 mg Insulin Aspart (Novolog Vial Sliding Scale -) 1 vial SQ [facility]; Protocol Last Admin: 11/17/17 06:18 Dose: Not Given Insulin Detemir (Levemir Vial) 10 units SQ [facility] Last Admin: 11/16/17 22:31 Dose: 10 units Lactulose (Cephulac (Oral Use)) 20 gm PO BID [facility] Last Admin: 11/17/17 10:06 Dose: 20 gm Levalbuterol HCl (Xopenex) 0.63 mg IH RTID [facility] Last Admin: 11/17/17 09:01 Dose: 0.63 mg Levalbuterol HCl (Xopenex) 0.63 mg IH Q6H PRN PRN Reason: ASTHMA Lidocaine (Lidoderm Patch -) 1 patch TP DAILY [facility] Last Admin: 11/17/17 10:06 Dose: Not Given Lisinopril (Prinivil) 5 mg PO DAILY [facility] Last Admin: 11/17/17 10:06 Dose: 5 mg Methylprednisolone Sodium Succinate (Solu-Medrol -) 60 mg IVPUSH Q8H [facility] Last Admin: 11/17/17 03:32 Dose: 60 mg Miscellaneous (Lidoderm Patch Removal) 1 each MC DAILY@2200 [facility] Last Admin: 11/16/17 22:39 Dose: Not Given Nicotine (Nicoderm Patch -) 21 mg TD DAILY [facility] Last Admin: 11/17/17 10:06 Dose: 21 mg Oxycodone HCl (Roxicodone -) 10 mg PO Q6H PRN PRN Reason: PAIN LEVEL 6-10 Last Admin: 11/17/17 06:08 Dose: 10 mg Psyllium Hydrophilic Mucilloid (Metamucil (Sugar-Free) -) 5.85 gm PO BID [facility] Last Admin: 11/17/17 10:06 Dose: 5.85 gm Tiotropium [place] (Spiriva Respimat) 2 puff IH DAILY [facility] Last Admin: 11/17/17 10:09 Dose: 2 puff Zolpidem Tartrate (Ambien -) 10 mg PO HS PRN PRN Reason: INSOMNIA Last Admin: 11/16/17 22:26 Dose: 10 mg - Objective Vital Signs: Vital Signs Temperature 97.6 F 11/17/17 02:00 Pulse Rate 93 H 11/17/17 09:00 Respiratory Rate 18 11/17/17 09:00 Blood Pressure 136/96 11/17/17 09:00 O2 Sat by Pulse Oximetry (%) 95 11/17/17 09:00 Constitutional: Yes: Well Nourished, Calm Eyes: Yes: WNL HENT: Yes: WNL Neck: Yes: WNL Cardiovascular: Yes: Regular Rate and Rhythm, S1, S2 Respiratory: Yes: Wheezes (freida wheezes,with few bibasilar crackles) Gastrointestinal: Yes: Normal Bowel Sounds, Soft Extremities: Yes: WNL Edema: No Labs: CBC, BMP 11/17/17 06:30 11/17/17 06:30 INR, PTT INR 1.26 (0.83-1.09) H 11/13/17 17:00 - ....Imaging Other: Report Reviewed (v/q) Assessment/Plan Problem List - Problems (1) Chronic kidney disease (CKD) Code(s): N18.9 - CHRONIC KIDNEY DISEASE, UNSPECIFIED Qualifiers: Chronic kidney disease stage: unspecified stage Qualified Code(s): N18.9 - Chronic kidney disease, unspecified (2) Shortness of breath Code(s): R06.02 - SHORTNESS OF BREATH (3) Bronchitis Code(s): J40 - BRONCHITIS, NOT SPECIFIED ACUTE OR CHRONIC (4) Cough Code(s): R05 - COUGH (5) Elevated d-dimer Code(s): R79.1 - ABNORMAL COAGULATION PROFILE (6) Hyperkalemia Code(s): E87.5 - HYPERKALEMIA (7) CAD (coronary artery disease) Code(s): I25.10 - ATHSCL HEART DISEASE OF [place] CORONARY ARTERY W/O ANG PCTRS (8) CHF (congestive heart failure) Code(s): I50.9 - HEART FAILURE, UNSPECIFIED Qualifiers: Qualified Code(s): I50.22 - Chronic systolic (congestive) heart failure (9) COPD (chronic obstructive pulmonary disease) Code(s): J44.9 - CHRONIC OBSTRUCTIVE PULMONARY DISEASE, UNSPECIFIED (10) Coronary artery disease Code(s): I25.10 - ATHSCL HEART DISEASE OF [place] CORONARY ARTERY W/O ANG PCTRS Qualifiers: Coronary Disease-Associated Artery/Lesion type: bypass graft, other Associated angina: with other forms of angina Qualified Code(s): I25.798 - Atherosclerosis of other coronary artery bypass graft(s) with other forms of angina pectoris (11) Diabetes Code(s): E11.9 - TYPE 2 DIABETES MELLITUS WITHOUT COMPLICATIONS Qualifiers: Diabetes mellitus type: type 2 Diabetes mellitus complication detail: with chronic kidney disease (12) HTN (hypertension) Code(s): I10 - ESSENTIAL (PRIMARY) HYPERTENSION Qualifiers: Hypertension type: essential hypertension Qualified Code(s): I10 - Essential (primary) hypertension (13) Peripheral vascular disease Code(s): I73.9 - PERIPHERAL VASCULAR DISEASE, UNSPECIFIED (14) Pulmonary hypertension Code(s): I27.2 - OTHER SECONDARY PULMONARY HYPERTENSION * DO NOT USE * (15) S/P CABG x 3 Code(s): Z95.1 - PRESENCE OF AORTOCORONARY BYPASS GRAFT Assessment/Plan Low clinical suspicion of VTE (Wells score essentially 0) DVT ruled out Lasix daily O2 as needed Daily weight Medrol inhaled bronchodilators dvt prophylaxis,no need for full ac DR BATISTA Problem List - Problems (1) Chronic kidney disease (CKD) Code(s): N18.9 - CHRONIC KIDNEY DISEASE, UNSPECIFIED Qualifiers: Qualified Code(s): N18.9 - Chronic kidney disease, unspecified (2) Shortness of breath Code(s): R06.02 - SHORTNESS OF BREATH (3) Bronchitis Code(s): J40 - BRONCHITIS, NOT SPECIFIED ACUTE OR CHRONIC (4) Cough Code(s): R05 - COUGH (5) Elevated d-dimer Code(s): R79.1 - ABNORMAL COAGULATION PROFILE (6) Hyperkalemia Code(s): E87.5 - HYPERKALEMIA (7) CAD (coronary artery disease) Code(s): I25.10 - ATHSCL HEART DISEASE OF [place] CORONARY ARTERY W/O ANG PCTRS (8) CHF (congestive heart failure) Code(s): I50.9 - HEART FAILURE, UNSPECIFIED Qualifiers: Qualified Code(s): I50.22 - Chronic systolic (congestive) heart failure (9) COPD (chronic obstructive pulmonary disease) Code(s): J44.9 - CHRONIC OBSTRUCTIVE PULMONARY DISEASE, UNSPECIFIED (10) Coronary artery disease Code(s): I25.10 - ATHSCL HEART DISEASE OF [place] CORONARY ARTERY W/O ANG PCTRS Qualifiers: Qualified Code(s): I25.798 - Atherosclerosis of other coronary artery bypass graft(s) with other forms of angina pectoris (11) Diabetes Code(s): E11.9 - TYPE 2 DIABETES MELLITUS WITHOUT COMPLICATIONS (12) HTN (hypertension) Code(s): I10 - ESSENTIAL (PRIMARY) HYPERTENSION Qualifiers: Qualified Code(s): I10 - Essential (primary) hypertension (13) Peripheral vascular disease Code(s): I73.9 - PERIPHERAL VASCULAR DISEASE, UNSPECIFIED (14) Pulmonary hypertension Code(s): I27.2 - OTHER SECONDARY PULMONARY HYPERTENSION * DO NOT USE * (15) S/P CABG x 3 Code(s): Z95.1 - PRESENCE OF AORTOCORONARY BYPASS GRAFT
--- NOTE | 2017-11-17 13:40 | PN ---
Progress Note, Physician History of Present Illness: Pt seen and examined at bedside. He is awake and alert. He still complains of shortness of breath with activity. - Current Medication List Current Medications: Active Medications Acetaminophen (Tylenol -) 325 mg PO Q6H PRN PRN Reason: PAIN LEVEL 6-10 WITH OXYCODON Last Admin: 11/16/17 17:12 Dose: 325 mg Amlodipine Besylate (Norvasc -) 5 mg PO DAILY [facility] Last Admin: 11/17/17 10:06 Dose: 5 mg Aspirin (Ecotrin -) 81 mg PO DAILY [facility] Last Admin: 11/17/17 10:06 Dose: 81 mg Atorvastatin Calcium (Lipitor -) 10 mg PO HS [facility] Last Admin: 11/16/17 22:26 Dose: 10 mg Budesonide/Formoterol Fumarate (Symbicort 160/4.5mcg -) 1 puff IH DAILY [facility] Last Admin: 11/17/17 10:08 Dose: 1 inh Carvedilol (Coreg -) 25 mg PO BID [facility] Last Admin: 11/17/17 10:06 Dose: 25 mg Cholecalciferol (Vitamin D3 -) 2,000 unit PO DAILY [facility] Last Admin: 11/17/17 10:06 Dose: 2,000 unit Clopidogrel Bisulfate (Plavix -) 75 mg PO DAILY [facility] Last Admin: 11/17/17 10:06 Dose: 75 mg Cyclobenzaprine HCl (Flexeril -) 10 mg PO TID PRN PRN Reason: PAIN Docusate Sodium (Colace -) 100 mg PO TID [facility] Last Admin: 11/17/17 06:09 Dose: 100 mg Ferrous Sulfate (Feosol -) 325 mg PO DAILY [facility] Last Admin: 11/17/17 10:06 Dose: 325 mg Furosemide (Lasix Injection -) 40 mg IVPUSH BIDLASIX [facility] Last Admin: 11/17/17 06:09 Dose: 40 mg Insulin Aspart (Novolog Vial Sliding Scale -) 1 vial SQ [facility]; Protocol Last Admin: 11/17/17 12:11 Dose: 4 units Insulin Detemir (Levemir Vial) 10 units SQ HS [facility] Last Admin: 11/16/17 22:31 Dose: 10 units Lactulose (Cephulac (Oral Use)) 20 gm PO BID [facility] Last Admin: 11/17/17 10:06 Dose: 20 gm Levalbuterol HCl (Xopenex) 0.63 mg IH RTID [facility] Last Admin: 11/17/17 09:01 Dose: 0.63 mg Levalbuterol HCl (Xopenex) 0.63 mg IH Q6H PRN PRN Reason: ASTHMA Lidocaine (Lidoderm Patch -) 1 patch TP DAILY [facility] Last Admin: 11/17/17 10:06 Dose: Not Given Lisinopril (Prinivil) 5 mg PO DAILY [facility] Last Admin: 11/17/17 10:06 Dose: 5 mg Methylprednisolone Sodium Succinate (Solu-Medrol -) 60 mg IVPUSH Q8H [facility] Last Admin: 11/17/17 13:07 Dose: 60 mg Miscellaneous (Lidoderm Patch Removal) 1 each MC DAILY@2200 [facility] Last Admin: 11/16/17 22:39 Dose: Not Given Nicotine (Nicoderm Patch -) 21 mg TD DAILY [facility] Last Admin: 11/17/17 10:06 Dose: 21 mg Oxycodone HCl (Roxicodone -) 10 mg PO Q6H PRN PRN Reason: PAIN LEVEL 6-10 Last Admin: 11/17/17 12:10 Dose: 10 mg Psyllium Hydrophilic Mucilloid (Metamucil (Sugar-Free) -) 5.85 gm PO BID [facility] Last Admin: 11/17/17 10:06 Dose: 5.85 gm Tiotropium [place] (Spiriva Respimat) 2 puff IH DAILY [facility] Last Admin: 11/17/17 10:09 Dose: 2 puff Zolpidem Tartrate (Ambien -) 10 mg PO HS PRN PRN Reason: INSOMNIA Last Admin: 11/16/17 22:26 Dose: 10 mg - Objective Vital Signs: Vital Signs Temperature 97.6 F 11/17/17 02:00 Pulse Rate 93 H 11/17/17 09:00 Respiratory Rate 18 11/17/17 09:00 Blood Pressure 136/96 11/17/17 09:00 O2 Sat by Pulse Oximetry (%) 95 11/17/17 09:00 Constitutional: Yes: Calm Eyes: Yes: Conjunctiva Clear HENT: Yes: Atraumatic Neck: Yes: Supple Cardiovascular: Yes: S1, S2 Respiratory: Yes: CTA Bilaterally Gastrointestinal: Yes: Normal Bowel Sounds, Soft Genitourinary: Yes: WNL Musculoskeletal: Yes: WNL Edema: Yes Edema: LLE: Trace, RLE: Trace Neurological: Yes: Oriented Psychiatric: Yes: Oriented Labs: CBC, BMP 11/17/17 06:30 11/17/17 06:30 INR, PTT INR 1.26 (0.83-1.09) H 11/13/17 17:00 Problem List - Problems (1) Acute exacerbation of CHF (congestive heart failure) Code(s): I50.9 - HEART FAILURE, UNSPECIFIED Qualifiers: Heart failure type: systolic Qualified Code(s): I50.23 - Acute on chronic systolic (congestive) heart failure (2) COPD exacerbation Code(s): J44.1 - CHRONIC OBSTRUCTIVE PULMONARY DISEASE W (ACUTE) EXACERBATION (3) Chronic kidney disease (CKD) Code(s): N18.9 - CHRONIC KIDNEY DISEASE, UNSPECIFIED Qualifiers: Chronic kidney disease stage: stage 3 (moderate) Qualified Code(s): N18.3 - Chronic kidney disease, stage 3 (moderate) (4) Shortness of breath Code(s): R06.02 - SHORTNESS OF BREATH Assessment/Plan Current Medications Generic Name Dose Route Start Last Admin Trade Name Freq PRN Reason Stop Dose Admin Acetaminophen 325 mg 11/13/17 20:37 11/16/17 17:12 Tylenol - PO 325 mg Q6H PRN Administration PAIN LEVEL 6-10 WITH OXYCODON Amlodipine Besylate 5 mg 11/14/17 10:00 11/17/17 10:06 Norvasc - PO 5 mg DAILY [facility] Administration Aspirin 81 mg 11/14/17 10:00 11/17/17 10:06 Ecotrin - PO 81 mg DAILY [facility] Administration Atorvastatin Calcium 10 mg 11/13/17 22:00 11/16/17 22:26 Lipitor - PO 10 mg HS [facility] Administration Budesonide/Formoterol Fumarate 1 puff 11/14/17 10:00 11/17/17 10:08 Symbicort 160/4.5mcg - IH 1 inh DAILY [facility] Administration Carvedilol 25 mg 11/13/17 22:00 11/17/17 10:06 Coreg - PO 25 mg BID [facility] Administration Cholecalciferol 2,000 unit 11/14/17 10:00 11/17/17 10:06 Vitamin D3 - PO 2,000 unit DAILY [facility] Administration Clopidogrel Bisulfate 75 mg 11/14/17 10:00 11/17/17 10:06 Plavix - PO 75 mg DAILY [facility] Administration Cyclobenzaprine HCl 10 mg 11/13/17 20:08 Flexeril - PO TID PRN PAIN Docusate Sodium 100 mg 11/13/17 22:00 11/17/17 06:09 Colace - PO 100 mg TID [facility] Administration Ferrous Sulfate 325 mg 11/14/17 10:00 11/17/17 10:06 Feosol - PO 325 mg DAILY [facility] Administration Furosemide 40 mg 11/16/17 14:00 11/17/17 06:09 Lasix Injection - IVPUSH 40 mg BIDLASIX [facility] Administration Insulin Aspart 1 vial 11/13/17 22:00 11/17/17 12:11 Novolog Vial Sliding Scale - SQ 4 units ACHS [facility] Administration Protocol Insulin Detemir 10 units 11/13/17 22:00 11/16/17 22:31 Levemir Vial SQ 10 units HS [facility] Administration Lactulose 20 gm 11/13/17 22:00 11/17/17 10:06 Cephulac (Oral Use) PO 20 gm BID [facility] Administration Levalbuterol HCl 0.63 mg 11/15/17 14:00 11/17/17 09:01 Xopenex IH 0.63 mg RTID [facility] Administration Levalbuterol HCl 0.63 mg 11/15/17 11:30 Xopenex IH Q6H PRN ASTHMA Lidocaine 1 patch 11/14/17 10:00 11/17/17 10:06 Lidoderm Patch - TP Not Given DAILY [facility] Lisinopril 5 mg 11/14/17 10:00 11/17/17 10:06 Prinivil PO 5 mg DAILY [facility] Administration Methylprednisolone Sodium Succinate 60 mg 11/14/17 19:30 11/17/17 13:07 Solu-Medrol - IVPUSH 60 mg Q8H [facility] Administration Miscellaneous 1 each 11/13/17 22:00 11/16/17 22:39 Lidoderm Patch Removal MC Not Given DAILY@2200 [facility] Nicotine 21 mg 11/14/17 19:00 11/17/17 10:06 Nicoderm Patch - TD 21 mg DAILY [facility] Administration Oxycodone HCl 10 mg 11/13/17 20:37 11/17/17 12:10 Roxicodone - PO 10 mg Q6H PRN Administration PAIN LEVEL 6-10 Psyllium Hydrophilic Mucilloid 5.85 gm 11/13/17 22:00 11/17/17 10:06 Metamucil (Sugar-Free) - PO 5.85 gm BID [facility] Administration Tiotropium [place] 2 puff 11/15/17 11:45 11/17/17 10:09 Spiriva Respimat IH 2 puff DAILY [facility] Administration Zolpidem Tartrate 10 mg 11/14/17 22:54 11/16/17 22:26 Ambien - PO 10 mg HS PRN Administration INSOMNIA Impression 1. CKD 2. proteinuria 3. CAD 4. CHF 5. COPD 6. DM 7. HTN Plan - renal function is stable - cont with lasix - follow urine studies - can cont deidra - repeat labs in am - check daily weights - avoid nsiads Dr Belcher
[2017-11-17] MEDS: HEPARIN NA (PORCINE) 5,000 UNITS/ML 1ML VIAL SQ SCH ×2 (14:56→22:00)
[2017-11-17] MEDS: ACETAMINOPHEN 325 MG TABLET (FP) PO PRN (19:55)
[2017-11-17] MEDS: ZOLPIDEM TARTRATE 5 MG TABLET PO PRN (21:50)
[2017-11-17] MEDS: LIDOCAINE PATCH REMOVAL MC SCH (21:52)
[2017-11-17] MEDS: ATORVASTATIN CA 10 MG TABLET (FP) PO SCH (22:00)
[2017-11-17] MEDS ORDERED: INSULIN (LEVEMIR) 100 UNITS/ML UNITS SQ ONE (22:07)
[2017-11-17] MEDS: INSULIN (LEVEMIR) 100 UNITS/ML UNITS SQ SCH (22:22)
[2017-11-18] MEDS: methylPREDNISolone NA SUCC 125 MG/2 ML VIAL IVPUSH SCH ×2 (01:22→10:10)
[2017-11-18] MEDS: ACETAMINOPHEN 325 MG TABLET (FP) PO PRN ×2 (06:00→20:13)
[2017-11-18] MEDS: CYCLOBENZAPRINE HCL 10 MG TABLET (FP) PO PRN ×2 (06:00→21:47)
[2017-11-18] MEDS: DOCUSATE SODIUM 100 MG CAPSULE (FP) PO SCH ×3 (06:01→21:48)
[2017-11-18] MEDS: HEPARIN NA (PORCINE) 5,000 UNITS/ML 1ML VIAL SQ SCH ×3 (06:02→21:49)
[2017-11-18] MEDS: FUROSEMIDE 40 MG/4 ML INJECTABLE VIAL IVPUSH SCH ×2 (06:02→14:38)
[2017-11-18] MEDS: INSULIN SLIDING SCALE (NOVOLOG) 1 VIAL SQ SCH ×4 (06:10→21:46)
[2017-11-18 08:32] LABS: ANION GAP 7 (8-16); BLOOD UREA NITROGEN 72 mg/dL (7-18); CALCIUM 8.4 mg/dL (8.5-10.1); CHLORIDE 100 mmol/L (98-107); CO2 31 mmol/L (21-32); CREATININE 2.1 mg/dL (0.7-1.3); GLUCOSE,RANDOM 166 mg/dL (74-106); POTASSIUM 4.1 mmol/L (3.5-5.1); SODIUM 138 mmol/L (136-145)
[2017-11-18] MEDS: LEVALBUTEROL HCL 0.63 MG/3 ML VIAL.NEB. IH SCH ×3 (08:35→20:09)
--- NOTE | 2017-11-18 09:46 | PN ---
Progress Note, Physician Chief Complaint: Pt sitting in bed in no acute distress. reports sob improved. on O2 2l, which he is on at home. denies chest pain, worsening sob, n/v/d - Current Medication List Current Medications: Active Medications Acetaminophen (Tylenol -) 325 mg PO Q6H PRN PRN Reason: PAIN LEVEL 6-10 WITH OXYCODON Last Admin: 11/18/17 06:00 Dose: 325 mg Amlodipine Besylate (Norvasc -) 5 mg PO DAILY [facility] Last Admin: 11/17/17 10:06 Dose: 5 mg Aspirin (Ecotrin -) 81 mg PO DAILY [facility] Last Admin: 11/17/17 10:06 Dose: 81 mg Atorvastatin Calcium (Lipitor -) 10 mg PO HS [facility] Last Admin: 11/17/17 22:00 Dose: 10 mg Budesonide/Formoterol Fumarate (Symbicort 160/4.5mcg -) 1 puff IH DAILY [facility] Last Admin: 11/17/17 10:08 Dose: 1 inh Carvedilol (Coreg -) 25 mg PO BID [facility] Last Admin: 11/17/17 21:50 Dose: 25 mg Cholecalciferol (Vitamin D3 -) 2,000 unit PO DAILY [facility] Last Admin: 11/17/17 10:06 Dose: 2,000 unit Clopidogrel Bisulfate (Plavix -) 75 mg PO DAILY [facility] Last Admin: 11/17/17 10:06 Dose: 75 mg Cyclobenzaprine HCl (Flexeril -) 10 mg PO TID PRN PRN Reason: PAIN Last Admin: 11/18/17 06:00 Dose: 10 mg Docusate Sodium (Colace -) 100 mg PO TID [facility] Last Admin: 11/18/17 06:01 Dose: 100 mg Ferrous Sulfate (Feosol -) 325 mg PO DAILY [facility] Last Admin: 11/17/17 10:06 Dose: 325 mg Furosemide (Lasix Injection -) 40 mg IVPUSH BIDLASIX [facility] Last Admin: 11/18/17 06:02 Dose: 40 mg Heparin Sodium (Porcine) (Heparin -) 5,000 unit SQ TID [facility] Last Admin: 11/18/17 06:02 Dose: 5,000 unit Insulin Aspart (Novolog Vial Sliding Scale -) 1 vial SQ [facility]; Protocol Last Admin: 11/18/17 06:10 Dose: Not Given Insulin Detemir (Levemir Vial) 10 units SQ HS [facility] Last Admin: 11/17/17 22:22 Dose: 10 units Lactulose (Cephulac (Oral Use)) 20 gm PO BID [facility] Last Admin: 11/17/17 21:51 Dose: 20 gm Levalbuterol HCl (Xopenex) 0.63 mg IH RTID [facility] Last Admin: 11/18/17 08:35 Dose: 0.63 mg Levalbuterol HCl (Xopenex) 0.63 mg IH Q6H PRN PRN Reason: ASTHMA Lidocaine (Lidoderm Patch -) 1 patch TP DAILY [facility] Last Admin: 11/17/17 10:06 Dose: Not Given Lisinopril (Prinivil) 5 mg PO DAILY [facility] Last Admin: 11/17/17 10:06 Dose: 5 mg Methylprednisolone Sodium Succinate (Solu-Medrol -) 60 mg IVPUSH Q8H-IV [facility] Last Admin: 11/18/17 01:22 Dose: 60 mg Miscellaneous (Lidoderm Patch Removal) 1 each MC DAILY@2200 [facility] Last Admin: 11/17/17 21:52 Dose: Not Given Nicotine (Nicoderm Patch -) 21 mg TD DAILY [facility] Last Admin: 11/17/17 10:06 Dose: 21 mg Psyllium Hydrophilic Mucilloid (Metamucil (Sugar-Free) -) 5.85 gm PO BID [facility] Last Admin: 11/17/17 21:51 Dose: 5.85 gm Tiotropium [place] (Spiriva Respimat) 2 puff IH DAILY [facility] Last Admin: 11/17/17 10:09 Dose: 2 puff - Objective Vital Signs: Vital Signs Temperature 98.2 F 11/18/17 05:50 Pulse Rate 81 11/18/17 05:50 Respiratory Rate 20 11/18/17 05:50 Blood Pressure 143/87 11/18/17 05:50 O2 Sat by Pulse Oximetry (%) 96 11/17/17 20:00 Constitutional: Yes: Well Nourished, No Distress Cardiovascular: Yes: Pulse Irregular Respiratory: Yes: Regular, CTA Bilaterally, On Nasal O2, Rales (LLL), SOB on Exertion. No: Rhonchi, SOB, Tachypnea Gastrointestinal: Yes: WNL, Normal Bowel Sounds, Soft, Abdomen, Obese Genitourinary: Yes: WNL Extremities: Yes: WNL Edema: No Neurological: Yes: WNL, Alert, Oriented Psychiatric: Yes: WNL, Alert, Oriented Labs: CBC, BMP 11/17/17 06:30 11/18/17 06:22 INR, PTT INR 1.26 (0.83-1.09) H 11/13/17 17:00 Problem List - Problems (1) Shortness of breath Code(s): R06.02 - SHORTNESS OF BREATH (2) Elevated d-dimer Code(s): R79.1 - ABNORMAL COAGULATION PROFILE (3) Acute exacerbation of CHF (congestive heart failure) Code(s): I50.9 - HEART FAILURE, UNSPECIFIED Qualifiers: Heart failure type: systolic Qualified Code(s): I50.23 - Acute on chronic systolic (congestive) heart failure (4) Pleural effusion Code(s): J90 - PLEURAL EFFUSION, NOT ELSEWHERE CLASSIFIED (5) COPD exacerbation Code(s): J44.1 - CHRONIC OBSTRUCTIVE PULMONARY DISEASE W (ACUTE) EXACERBATION (6) Chronic kidney disease (CKD) Code(s): N18.9 - CHRONIC KIDNEY DISEASE, UNSPECIFIED Qualifiers: Chronic kidney disease stage: stage 3 (moderate) Qualified Code(s): N18.3 - Chronic kidney disease, stage 3 (moderate) (7) CAD (coronary artery disease) Code(s): I25.10 - ATHSCL HEART DISEASE OF [place] CORONARY ARTERY W/O ANG PCTRS Qualifiers: [place] vs. 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 (10) CHF (congestive heart failure) Code(s): I50.9 - HEART FAILURE, UNSPECIFIED (11) COPD (chronic obstructive pulmonary disease) Code(s): J44.9 - CHRONIC OBSTRUCTIVE PULMONARY DISEASE, UNSPECIFIED Qualifiers: COPD type: COPD with acute exacerbation Qualified Code(s): J44.1 - Chronic obstructive pulmonary disease with (acute) exacerbation (12) Osteoarthritis, multiple sites Code(s): M15.9 - POLYOSTEOARTHRITIS, UNSPECIFIED Qualifiers: Osteoarthritis type: primary Qualified Code(s): M15.0 - Primary generalized (osteo)arthritis (13) Low back pain Code(s): M54.5 - LOW BACK PAIN Qualifiers: Chronicity: chronic (14) Anemia Code(s): D64.9 - ANEMIA, UNSPECIFIED Qualifiers: Anemia type: due to chronic kidney disease Chronic kidney disease stage: stage 3 (moderate) Qualified Code(s): N18.3 - Chronic kidney disease, stage 3 (moderate); D63.1 - Anemia in chronic kidney disease (15) Atrial tachycardia Code(s): I47.1 - SUPRAVENTRICULAR TACHYCARDIA (16) Peripheral vascular disease Code(s): I73.9 - PERIPHERAL VASCULAR DISEASE, UNSPECIFIED Assessment/Plan (1) Shortness of breath Assessment/Plan: improved, appears at baseline now secondary to chf/copd exacerbation dvt/pe ruled out O2 via nc Code(s): R06.02 - SHORTNESS OF BREATH (2) Elevated d-dimer Assessment/Plan: low suspicion of pe Code(s): R79.1 - ABNORMAL COAGULATION PROFILE (3) Acute exacerbation of CHF (congestive heart failure) Assessment/Plan: improving, sob at baseline now dry weight 192-196 weight 204 today lasix iv bid continue weights O2 NC low na diet cardiology following Code(s): I50.9 - HEART FAILURE, UNSPECIFIED Qualifiers: Heart failure type: systolic Qualified Code(s): I50.23 - Acute on chronic systolic (congestive) heart failure (4) Pleural effusion Assessment/Plan: secondary to acute chf exacerb continue diuresis pulm following Code(s): J90 - PLEURAL EFFUSION, NOT ELSEWHERE CLASSIFIED (5) COPD exacerbation Assessment/Plan: acute, lung exam improved nebs/medrol taper o2 nc pulm following Code(s): J44.1 - CHRONIC OBSTRUCTIVE PULMONARY DISEASE W (ACUTE) EXACERBATION (6) Chronic kidney disease (CKD) Assessment/Plan: at baseline monitor Code(s): N18.9 - CHRONIC KIDNEY DISEASE, UNSPECIFIED Qualifiers: Chronic kidney disease stage: stage 3 (moderate) Qualified Code(s): N18.3 - Chronic kidney disease, stage 3 (moderate) (7) CAD (coronary artery disease) Assessment/Plan: s/p cabgx 3 continue asa/statin/plavix Code(s): I25.10 - ATHSCL HEART DISEASE OF [place] CORONARY ARTERY W/O ANG PCTRS Qualifiers: [place] vs. 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: with mcfp use Diabetes mellitus complication status: with kidney complications Diabetes mellitus complication detail: with chronic kidney disease Chronic kidney disease stage: stage 3 (moderate) Qualified Code(s): E11.22 - Type 2 diabetes mellitus with diabetic chronic kidney disease; N18.3 - Chronic kidney disease, stage 3 (moderate); 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 (9) HTN (hypertension) Assessment/Plan: controlled continue lisinopril, amlodipine, carvedilol monitor Code(s): I10 - ESSENTIAL (PRIMARY) HYPERTENSION Qualifiers: Hypertension type: essential hypertension Qualified Code(s): I10 - Essential (primary) hypertension (10) CHF (congestive heart failure) Assessment/Plan: s/p icd acute on chronic as above Code(s): I50.9 - HEART FAILURE, UNSPECIFIED (11) COPD (chronic obstructive pulmonary disease) Assessment/Plan: on O2 dependent at home Code(s): J44.9 - CHRONIC OBSTRUCTIVE PULMONARY DISEASE, UNSPECIFIED Qualifiers: COPD type: COPD with acute exacerbation Qualified Code(s): J44.1 - Chronic obstructive pulmonary disease with (acute) exacerbation (12) Osteoarthritis, multiple sites Assessment/Plan: stable Code(s): M15.9 - POLYOSTEOARTHRITIS, UNSPECIFIED Qualifiers: Osteoarthritis type: primary Qualified Code(s): M15.0 - Primary generalized (osteo)arthritis (13) Low back pain Assessment/Plan: chronic PT analgesics prn Code(s): M54.5 - LOW BACK PAIN Qualifiers: Chronicity: chronic (14) Anemia Assessment/Plan: chronic hg/hct stable monitor Code(s): D64.9 - ANEMIA, UNSPECIFIED Qualifiers: Anemia type: due to chronic kidney disease Chronic kidney disease stage: stage 3 (moderate) Qualified Code(s): N18.3 - Chronic kidney disease, stage 3 (moderate); D63.1 - Anemia in chronic kidney disease (15) Atrial tachycardia Assessment/Plan: stable Code(s): I47.1 - SUPRAVENTRICULAR TACHYCARDIA (16) Peripheral vascular disease Assessment/Plan: pad, stable continue statin/plavix/asa Code(s): I73.9 - PERIPHERAL VASCULAR DISEASE, UNSPECIFIED Dispo: Home when pulm/cardiology cleared
[2017-11-18] MEDS: CHOLECALCIFEROL (VITAMIN D3) 1,000 UNIT TABLET (FP) PO SCH (10:09)
[2017-11-18] MEDS: LISINOPRIL 5 MG TABLET (FP) PO SCH (10:09)
[2017-11-18] MEDS: NICOTINE 21 MG/24 HOURS TOPICAL PATCH TD SCH (10:09)
[2017-11-18] MEDS: amLODIPine BESYLATE 5 MG TABLET (FP) PO SCH (10:09)
[2017-11-18] MEDS: ASPIRIN COATED 81 MG TABLET.EC PO SCH (10:09)
[2017-11-18] MEDS: CARVEDILOL 25 MG TABLET (FP) PO SCH ×2 (10:09→21:47)
[2017-11-18] MEDS: LACTULOSE 20 GM/30 ML UDC (FOR ORAL USE ONLY) PO SCH ×2 (10:09→21:42)
[2017-11-18] MEDS: PSYLLIUM 5.85 GM PACKET PO SCH ×2 (10:09→21:48)
[2017-11-18] MEDS: TIOTROPIUM BROMIDE 2.5 MCG (SPIRIVA) RESPIMAT INHALER IH SCH (10:11)
[2017-11-18] MEDS: LIDOCAINE 5% TOPICAL PATCH TP SCH (10:11)
[2017-11-18] MEDS: FERROUS SO4 325 MG TABLET (FP) PO SCH (10:11)
[2017-11-18] MEDS: CLOPIDOGREL BISULFATE 75 MG TABLET (FP) PO SCH (10:11)
--- NOTE | 2017-11-18 10:11 | PN ---
Progress Note (short form) - Note Progress Note: s:sob continues to improve. no cp, edema, palps tele: afib HRs 80s-90s, brief episodes 120s + cigs Current Medications Acetaminophen (Tylenol -) 325 mg PO Q6H PRN PRN Reason: PAIN LEVEL 6-10 WITH OXYCODON Last Admin: 11/18/17 06:00 Dose: 325 mg Amlodipine Besylate (Norvasc -) 5 mg PO DAILY [facility] Last Admin: 11/17/17 10:06 Dose: 5 mg Aspirin (Ecotrin -) 81 mg PO DAILY [facility] Last Admin: 11/17/17 10:06 Dose: 81 mg Atorvastatin Calcium (Lipitor -) 10 mg PO [facility] Last Admin: 11/17/17 22:00 Dose: 10 mg Budesonide/Formoterol Fumarate (Symbicort 160/4.5mcg -) 1 puff IH DAILY [facility] Last Admin: 11/17/17 10:08 Dose: 1 inh Carvedilol (Coreg -) 25 mg PO BID [facility] Last Admin: 11/17/17 21:50 Dose: 25 mg Cholecalciferol (Vitamin D3 -) 2,000 unit PO DAILY [facility] Last Admin: 11/17/17 10:06 Dose: 2,000 unit Clopidogrel Bisulfate (Plavix -) 75 mg PO DAILY [facility] Last Admin: 11/17/17 10:06 Dose: 75 mg Cyclobenzaprine HCl (Flexeril -) 10 mg PO TID PRN PRN Reason: PAIN Last Admin: 11/18/17 06:00 Dose: 10 mg Docusate Sodium (Colace -) 100 mg PO TID [facility] Last Admin: 11/18/17 06:01 Dose: 100 mg Ferrous Sulfate (Feosol -) 325 mg PO DAILY [facility] Last Admin: 11/17/17 10:06 Dose: 325 mg Furosemide (Lasix Injection -) 40 mg IVPUSH BIDLASIX [facility] Last Admin: 11/18/17 06:02 Dose: 40 mg Heparin Sodium (Porcine) (Heparin -) 5,000 unit SQ TID [facility] Last Admin: 11/18/17 06:02 Dose: 5,000 unit Insulin Aspart (Novolog Vial Sliding Scale -) 1 vial SQ [facility]; Protocol Last Admin: 11/18/17 06:10 Dose: Not Given Insulin Detemir (Levemir Vial) 10 units SQ [facility] Last Admin: 11/17/17 22:22 Dose: 10 units Lactulose (Cephulac (Oral Use)) 20 gm PO BID [facility] Last Admin: 11/17/17 21:51 Dose: 20 gm Levalbuterol HCl (Xopenex) 0.63 mg IH RTID [facility] Last Admin: 11/18/17 08:35 Dose: 0.63 mg Levalbuterol HCl (Xopenex) 0.63 mg IH Q6H PRN PRN Reason: ASTHMA Lidocaine (Lidoderm Patch -) 1 patch TP DAILY [facility] Last Admin: 11/17/17 10:06 Dose: Not Given Lisinopril (Prinivil) 5 mg PO DAILY [facility] Last Admin: 11/17/17 10:06 Dose: 5 mg Methylprednisolone Sodium Succinate (Solu-Medrol -) 60 mg IVPUSH Q8H-IV [facility] Last Admin: 11/18/17 01:22 Dose: 60 mg Miscellaneous (Lidoderm Patch Removal) 1 each MC DAILY@2200 [facility] Last Admin: 11/17/17 21:52 Dose: Not Given Nicotine (Nicoderm Patch -) 21 mg TD DAILY [facility] Last Admin: 11/17/17 10:06 Dose: 21 mg Oxycodone HCl (Roxicodone -) 10 mg PO Q6H PRN PRN Reason: PAIN LEVEL 6-10 Psyllium Hydrophilic Mucilloid (Metamucil (Sugar-Free) -) 5.85 gm PO BID [facility] Last Admin: 11/17/17 21:51 Dose: 5.85 gm Tiotropium [place] (Spiriva Respimat) 2 puff IH DAILY [facility] Last Admin: 11/17/17 10:09 Dose: 2 puff - Objective Vital Signs: Vital Signs Period Temp Pulse Resp BP Sys/El Pulse Ox Last 24 Hr 97.5 F-98.2 F 77-114 18-24 111-147/70-88 96 Constitutional: Yes: No Distress, Calm Eyes: No: Sclera Icterus HENT: No: Nasal Congestion Cardiovascular: Yes: Pulse Irregular, +JVD, S1, S2, Other (PMI non diplaced). No: Gallop, Murmur Respiratory: Yes: CTA Bilaterally, Rales. No: Accessory Muscle Use, Wheezes Gastrointestinal: Yes: Normal Bowel Sounds, Soft. No: Tenderness Musculoskeletal: Yes: Other (No kyphosis) Extremities: No: Cold Edema: 1+ to ankles bilaterally Integumentary: No: Jaundice Neurological: Yes: Alert, Oriented (x3) Psychiatric: No: Agitated Assessment/Plan ecg: vp of customer experience strategy ct chest: mild chf, eff L>r, left is chronic echo 06/2015: mild lve, mod-sev dec lvef, mod lae, nl rv size, mild dec rv fcn, mild-mod mr, mild tr, nl avr fcn, rvsp 30-40 echo 06/2016: sev dec lvef, global hk, rv tds, trinity, mod-sev mr, mod tr, rvsp 50- 60 mibi 09/2014: large inf scar, mod anteroapical ischemia, lvef 25% mibi 06/2016 (pers): non-diagnostic STs; large area inferior/inferolateral/ lateral scar; no ischemia; severe LV cavity dilation; global HK with akinesis of inferior/inferolat/lateral allan; EF 16% a/p: 62 m hx copd, cabgx3 2012, bio avr 2012, pad s/p b/l sfa occlusions, syst chf s/p medtronic icd, htn, hld, a-tach, here with sob. acute systolic chf/persistent L effusion: -had been doing well as outpt for awhile, now here with sob, possibly mild vol overload, was on lasix 40 qd as outpt (dose had been lowered due to worsening ckd). -states home wt runs 192-196. -11/16: subjectively diuresing well to lasix 40 iv qd--change to bid -11/17: continue lasix 40 mg IV BID - 11/18: Cr 2.0->2.1, weight decreasing, still has JVD, continue lasix 40 mg IV BID today - monitor Cr, daily standing weights elevated d-dimer - intermediate prob of PE on VQ scan - evaluated by pulm, Dr. Manning, low suspicion VTE, heparin gtt dc acute exacerbation of copd: -also contributing to sob -on iv steroids cad/hx of CABG 2012 -no recent angina/ischemia -present sx's not suggestive for angina, enzymes neg x 3 -cont prior cad med regimen: deidra, dapt, statin, bb, ccb bio avr: -nl fcn on echo 06/20 mitral regurgitation: -likely functional MR, mild-mod on echo 06/19, then "mod-severe" when here 06/20 with suspected acute chf and pulm pressures up (though at risk for overestimation of MR severity on that echo report) -valve morphology not described (tethered leaflets?) -no murmur on exam -reassess MR severity on echo once pt adequately diuresed, though surgical or clip intervention not indicated/proven for functional MR CKD: -cr similar to recent outpt labs, monitor with lasix pad: -stable, no claudication, cont current cardiac meds s/p icd: -no shocks -routine outpt monitoring htn: -cont home meds hld: -cont statin atach: -minimal episodes seen in past on icd checks -cont bb -monitor tele anemia: -chronic, stable counts here vs baseline -per pmd
[2017-11-18] MEDS: BUDESONIDE/FORMETEROL FUMARATE 160/4.5 mcg INHALER IH SCH (10:12)
--- NOTE | 2017-11-18 11:04 | PN ---
Progress Note, Physician History of Present Illness: PULMONARY ALERT,FEELING BETTER,LESS DYSPNEIC - Current Medication List Current Medications: Active Medications Acetaminophen (Tylenol -) 325 mg PO Q6H PRN PRN Reason: PAIN LEVEL 6-10 WITH OXYCODON Last Admin: 11/18/17 06:00 Dose: 325 mg Amlodipine Besylate (Norvasc -) 5 mg PO DAILY [facility] Last Admin: 11/18/17 10:09 Dose: 5 mg Aspirin (Ecotrin -) 81 mg PO DAILY [facility] Last Admin: 11/18/17 10:09 Dose: 81 mg Atorvastatin Calcium (Lipitor -) 10 mg PO HS [facility] Last Admin: 11/17/17 22:00 Dose: 10 mg Budesonide/Formoterol Fumarate (Symbicort 160/4.5mcg -) 1 puff IH DAILY [facility] Last Admin: 11/18/17 10:12 Dose: 1 inh Carvedilol (Coreg -) 25 mg PO BID [facility] Last Admin: 11/18/17 10:09 Dose: 25 mg Cholecalciferol (Vitamin D3 -) 2,000 unit PO DAILY [facility] Last Admin: 11/18/17 10:09 Dose: 2,000 unit Clopidogrel Bisulfate (Plavix -) 75 mg PO DAILY [facility] Last Admin: 11/18/17 10:11 Dose: 75 mg Cyclobenzaprine HCl (Flexeril -) 10 mg PO TID PRN PRN Reason: PAIN Last Admin: 11/18/17 06:00 Dose: 10 mg Docusate Sodium (Colace -) 100 mg PO TID [facility] Last Admin: 11/18/17 06:01 Dose: 100 mg Ferrous Sulfate (Feosol -) 325 mg PO DAILY [facility] Last Admin: 11/18/17 10:11 Dose: 325 mg Furosemide (Lasix Injection -) 40 mg IVPUSH BIDLASIX [facility] Last Admin: 11/18/17 06:02 Dose: 40 mg Heparin Sodium (Porcine) (Heparin -) 5,000 unit SQ TID [facility] Last Admin: 11/18/17 06:02 Dose: 5,000 unit Insulin Aspart (Novolog Vial Sliding Scale -) 1 vial SQ [facility]; Protocol Last Admin: 11/18/17 06:10 Dose: Not Given Insulin Detemir (Levemir Vial) 10 units SQ [facility] Last Admin: 08/14/18 22:22 Dose: 10 units Lactulose (Cephulac (Oral Use)) 20 gm PO BID [facility] Last Admin: 11/18/17 10:09 Dose: 20 gm Levalbuterol HCl (Xopenex) 0.63 mg IH RTID [facility] Last Admin: 11/18/17 08:35 Dose: 0.63 mg Levalbuterol HCl (Xopenex) 0.63 mg IH Q6H PRN PRN Reason: ASTHMA Lidocaine (Lidoderm Patch -) 1 patch TP DAILY [facility] Last Admin: 11/18/17 10:11 Dose: Not Given Lisinopril (Prinivil) 5 mg PO DAILY [facility] Last Admin: 11/18/17 10:09 Dose: 5 mg Methylprednisolone Sodium Succinate (Solu-Medrol -) 60 mg IVPUSH Q8H-IV [facility] Last Admin: 11/18/17 10:10 Dose: 60 mg Miscellaneous (Lidoderm Patch Removal) 1 each MC DAILY@2200 [facility] Last Admin: 11/17/17 21:52 Dose: Not Given Nicotine (Nicoderm Patch -) 21 mg TD DAILY [facility] Last Admin: 11/18/17 10:09 Dose: 21 mg Oxycodone HCl (Roxicodone -) 10 mg PO Q6H PRN PRN Reason: PAIN LEVEL 6-10 Psyllium Hydrophilic Mucilloid (Metamucil (Sugar-Free) -) 5.85 gm PO BID [facility] Last Admin: 11/18/17 10:09 Dose: 5.85 gm Tiotropium [place] (Spiriva Respimat) 2 puff IH DAILY [facility] Last Admin: 11/18/17 10:11 Dose: 2 puff - Objective Vital Signs: Vital Signs Temperature 98.2 F 11/18/17 05:50 Pulse Rate 81 11/18/17 05:50 Respiratory Rate 20 11/18/17 05:50 Blood Pressure 143/87 11/18/17 05:50 O2 Sat by Pulse Oximetry (%) 96 11/17/17 20:00 Constitutional: Yes: Well Nourished, Calm Eyes: Yes: WNL HENT: Yes: WNL Neck: Yes: WNL Cardiovascular: Yes: Regular Rate and Rhythm, S1, S2 Respiratory: Yes: Rales (RUFINA CRACKLES,LESS WHEEZES) Gastrointestinal: Yes: Normal Bowel Sounds, Soft Extremities: Yes: WNL Edema: Yes Labs: CBC, BMP 11/17/17 06:30 11/18/17 06:22 INR, PTT INR 1.26 (0.83-1.09) H 11/13/17 17:00 Assessment/Plan Problem List - Problems (1) Chronic kidney disease (CKD) Code(s): N18.9 - CHRONIC KIDNEY DISEASE, UNSPECIFIED Qualifiers: Chronic kidney disease stage: unspecified stage Qualified Code(s): N18.9 - Chronic kidney disease, unspecified (2) Shortness of breath Code(s): R06.02 - SHORTNESS OF BREATH (3) Bronchitis Code(s): J40 - BRONCHITIS, NOT SPECIFIED ACUTE OR CHRONIC (4) Cough Code(s): R05 - COUGH (5) Elevated d-dimer Code(s): R79.1 - ABNORMAL COAGULATION PROFILE (6) Hyperkalemia Code(s): E87.5 - HYPERKALEMIA (7) CAD (coronary artery disease) Code(s): I25.10 - ATHSCL HEART DISEASE OF [place] CORONARY ARTERY W/O ANG PCTRS (8) CHF (congestive heart failure) Code(s): I50.9 - HEART FAILURE, UNSPECIFIED Qualifiers: Qualified Code(s): I50.22 - Chronic systolic (congestive) heart failure (9) COPD (chronic obstructive pulmonary disease) Code(s): J44.9 - CHRONIC OBSTRUCTIVE PULMONARY DISEASE, UNSPECIFIED (10) Coronary artery disease Code(s): I25.10 - ATHSCL HEART DISEASE OF [place] CORONARY ARTERY W/O ANG PCTRS Qualifiers: Coronary Disease-Associated Artery/Lesion type: bypass graft, other Associated angina: with other forms of angina Qualified Code(s): I25.798 - Atherosclerosis of other coronary artery bypass graft(s) with other forms of angina pectoris (11) Diabetes Code(s): E11.9 - TYPE 2 DIABETES MELLITUS WITHOUT COMPLICATIONS Qualifiers: Diabetes mellitus type: type 2 Diabetes mellitus complication detail: with chronic kidney disease (12) HTN (hypertension) Code(s): I10 - ESSENTIAL (PRIMARY) HYPERTENSION Qualifiers: Hypertension type: essential hypertension Qualified Code(s): I10 - Essential (primary) hypertension (13) Peripheral vascular disease Code(s): I73.9 - PERIPHERAL VASCULAR DISEASE, UNSPECIFIED (14) Pulmonary hypertension Code(s): I27.2 - OTHER SECONDARY PULMONARY HYPERTENSION * DO NOT USE * (15) S/P CABG x 3 Code(s): Z95.1 - PRESENCE OF AORTOCORONARY BYPASS GRAFT Assessment/Plan Low clinical suspicion of VTE (Wells score essentially 0) DVT ruled out Lasix daily O2 as needed Daily weight Medrol taper inhaled bronchodilators dvt prophylaxis,no need for full ac DR BATISTA Problem List - Problems (1) Chronic kidney disease (CKD) Code(s): N18.9 - CHRONIC KIDNEY DISEASE, UNSPECIFIED Qualifiers: Qualified Code(s): N18.9 - Chronic kidney disease, unspecified (2) Shortness of breath Code(s): R06.02 - SHORTNESS OF BREATH (3) Bronchitis Code(s): J40 - BRONCHITIS, NOT SPECIFIED ACUTE OR CHRONIC (4) Cough Code(s): R05 - COUGH (5) Elevated d-dimer Code(s): R79.1 - ABNORMAL COAGULATION PROFILE (6) Hyperkalemia Code(s): E87.5 - HYPERKALEMIA (7) CAD (coronary artery disease) Code(s): I25.10 - ATHSCL HEART DISEASE OF [place] CORONARY ARTERY W/O ANG PCTRS (8) CHF (congestive heart failure) Code(s): I50.9 - HEART FAILURE, UNSPECIFIED Qualifiers: Qualified Code(s): I50.22 - Chronic systolic (congestive) heart failure (9) COPD (chronic obstructive pulmonary disease) Code(s): J44.9 - CHRONIC OBSTRUCTIVE PULMONARY DISEASE, UNSPECIFIED (10) Coronary artery disease Code(s): I25.10 - ATHSCL HEART DISEASE OF [place] CORONARY ARTERY W/O ANG PCTRS Qualifiers: Qualified Code(s): I25.798 - Atherosclerosis of other coronary artery bypass graft(s) with other forms of angina pectoris (11) Diabetes Code(s): E11.9 - TYPE 2 DIABETES MELLITUS WITHOUT COMPLICATIONS (12) HTN (hypertension) Code(s): I10 - ESSENTIAL (PRIMARY) HYPERTENSION Qualifiers: Qualified Code(s): I10 - Essential (primary) hypertension (13) Peripheral vascular disease Code(s): I73.9 - PERIPHERAL VASCULAR DISEASE, UNSPECIFIED (14) Pulmonary hypertension Code(s): I27.2 - OTHER SECONDARY PULMONARY HYPERTENSION * DO NOT USE * (15) S/P CABG x 3 Code(s): Z95.1 - PRESENCE OF AORTOCORONARY BYPASS GRAFT
--- NOTE | 2017-11-18 12:19 | PN ---
Progress Note, Physician History of Present Illness: Pt seen and examined at bedside. He is awake and alert. He still experiences shortness of breath but he feels that it is starting to improve. - Current Medication List Current Medications: Active Medications Acetaminophen (Tylenol -) 325 mg PO Q6H PRN PRN Reason: PAIN LEVEL 6-10 WITH OXYCODON Last Admin: 11/18/17 06:00 Dose: 325 mg Amlodipine Besylate (Norvasc -) 5 mg PO DAILY [facility] Last Admin: 11/18/17 10:09 Dose: 5 mg Aspirin (Ecotrin -) 81 mg PO DAILY [facility] Last Admin: 11/18/17 10:09 Dose: 81 mg Atorvastatin Calcium (Lipitor -) 10 mg PO HS [facility] Last Admin: 11/17/17 22:00 Dose: 10 mg Budesonide/Formoterol Fumarate (Symbicort 160/4.5mcg -) 1 puff IH DAILY [facility] Last Admin: 11/18/17 10:12 Dose: 1 inh Carvedilol (Coreg -) 25 mg PO BID [facility] Last Admin: 11/18/17 10:09 Dose: 25 mg Cholecalciferol (Vitamin D3 -) 2,000 unit PO DAILY [facility] Last Admin: 11/18/17 10:09 Dose: 2,000 unit Clopidogrel Bisulfate (Plavix -) 75 mg PO DAILY [facility] Last Admin: 11/18/17 10:11 Dose: 75 mg Cyclobenzaprine HCl (Flexeril -) 10 mg PO TID PRN PRN Reason: PAIN Last Admin: 11/18/17 06:00 Dose: 10 mg Docusate Sodium (Colace -) 100 mg PO TID [facility] Last Admin: 11/18/17 06:01 Dose: 100 mg Ferrous Sulfate (Feosol -) 325 mg PO DAILY [facility] Last Admin: 11/18/17 10:11 Dose: 325 mg Furosemide (Lasix Injection -) 40 mg IVPUSH BIDLASIX [facility] Last Admin: 11/18/17 06:02 Dose: 40 mg Heparin Sodium (Porcine) (Heparin -) 5,000 unit SQ TID [facility] Last Admin: 11/18/17 06:02 Dose: 5,000 unit Insulin Aspart (Novolog Vial Sliding Scale -) 1 vial SQ [facility]; Protocol Last Admin: 11/18/17 06:10 Dose: Not Given Insulin Detemir (Levemir Vial) 10 units SQ HS [facility] Last Admin: 11/17/17 22:22 Dose: 10 units Lactulose (Cephulac (Oral Use)) 20 gm PO BID [facility] Last Admin: 11/18/17 10:09 Dose: 20 gm Levalbuterol HCl (Xopenex) 0.63 mg IH RTID [facility] Last Admin: 11/18/17 08:35 Dose: 0.63 mg Levalbuterol HCl (Xopenex) 0.63 mg IH Q6H PRN PRN Reason: ASTHMA Lidocaine (Lidoderm Patch -) 1 patch TP DAILY [facility] Last Admin: 11/18/17 10:11 Dose: Not Given Lisinopril (Prinivil) 5 mg PO DAILY [facility] Last Admin: 11/18/17 10:09 Dose: 5 mg Methylprednisolone Sodium Succinate (Solu-Medrol -) 40 mg IVPUSH Q8H-IV [facility] Miscellaneous (Lidoderm Patch Removal) 1 each MC DAILY@2200 [facility] Last Admin: 11/17/17 21:52 Dose: Not Given Nicotine (Nicoderm Patch -) 21 mg TD DAILY [facility] Last Admin: 11/18/17 10:09 Dose: 21 mg Oxycodone HCl (Roxicodone -) 10 mg PO Q6H PRN PRN Reason: PAIN LEVEL 6-10 Psyllium Hydrophilic Mucilloid (Metamucil (Sugar-Free) -) 5.85 gm PO BID [facility] Last Admin: 11/18/17 10:09 Dose: 5.85 gm Tiotropium [place] (Spiriva Respimat) 2 puff IH DAILY [facility] Last Admin: 11/18/17 10:11 Dose: 2 puff - Objective Vital Signs: Vital Signs Temperature 98.2 F 11/18/17 10:00 Pulse Rate 96 H 11/18/17 10:00 Respiratory Rate 20 11/18/17 10:00 Blood Pressure 157/98 11/18/17 10:00 O2 Sat by Pulse Oximetry (%) 96 11/18/17 09:00 Constitutional: Yes: Calm Eyes: Yes: Conjunctiva Clear HENT: Yes: Atraumatic Cardiovascular: Yes: S1, S2 Respiratory: Yes: On Nasal O2, Rhonchi Gastrointestinal: Yes: Normal Bowel Sounds, Soft Genitourinary: Yes: WNL Musculoskeletal: Yes: WNL Edema: Yes Edema: LLE: Trace, RLE: Trace Neurological: Yes: Oriented Psychiatric: Yes: Oriented Labs: CBC, BMP 11/17/17 06:30 11/18/17 06:22 INR, PTT INR 1.26 (0.83-1.09) H 11/13/17 17:00 Problem List - Problems (1) Acute exacerbation of CHF (congestive heart failure) Code(s): I50.9 - HEART FAILURE, UNSPECIFIED Qualifiers: Qualified Code(s): I50.23 - Acute on chronic systolic (congestive) heart failure (2) COPD exacerbation Code(s): J44.1 - CHRONIC OBSTRUCTIVE PULMONARY DISEASE W (ACUTE) EXACERBATION (3) Chronic kidney disease (CKD) Code(s): N18.9 - CHRONIC KIDNEY DISEASE, UNSPECIFIED Qualifiers: Qualified Code(s): N18.3 - Chronic kidney disease, stage 3 (moderate) (4) Shortness of breath Code(s): R06.02 - SHORTNESS OF BREATH Assessment/Plan Current Medications Generic Name Dose Route Start Last Admin Trade Name Freq PRN Reason Stop Dose Admin Acetaminophen 325 mg 11/13/17 20:37 11/18/17 06:00 Tylenol - PO 325 mg Q6H PRN Administration PAIN LEVEL 6-10 WITH OXYCODON Amlodipine Besylate 5 mg 11/14/17 10:00 11/18/17 10:09 Norvasc - PO 5 mg DAILY [facility] Administration Aspirin 81 mg 11/14/17 10:00 11/18/17 10:09 Ecotrin - PO 81 mg DAILY [facility] Administration Atorvastatin Calcium 10 mg 11/13/17 22:00 11/17/17 22:00 Lipitor - PO 10 mg HS [facility] Administration Budesonide/Formoterol Fumarate 1 puff 11/14/17 10:00 11/18/17 10:12 Symbicort 160/4.5mcg - IH 1 inh DAILY [facility] Administration Carvedilol 25 mg 11/13/17 22:00 11/18/17 10:09 Coreg - PO 25 mg BID [facility] Administration Cholecalciferol 2,000 unit 11/14/17 10:00 11/18/17 10:09 Vitamin D3 - PO 2,000 unit DAILY [facility] Administration Clopidogrel Bisulfate 75 mg 11/14/17 10:00 11/18/17 10:11 Plavix - PO 75 mg DAILY [facility] Administration Cyclobenzaprine HCl 10 mg 11/13/17 20:08 11/18/17 06:00 Flexeril - PO 10 mg TID PRN Administration PAIN Docusate Sodium 100 mg 11/13/17 22:00 11/18/17 06:01 Colace - PO 100 mg TID [facility] Administration Ferrous Sulfate 325 mg 11/14/17 10:00 11/18/17 10:11 Feosol - PO 325 mg DAILY [facility] Administration Furosemide 40 mg 11/16/17 14:00 11/18/17 06:02 Lasix Injection - IVPUSH 40 mg BIDLASIX [facility] Administration Heparin Sodium (Porcine) 5,000 unit 11/17/17 14:30 11/18/17 06:02 Heparin - SQ 5,000 unit TID [facility] Administration Insulin Aspart 1 vial 11/13/17 22:00 11/18/17 06:10 Novolog Vial Sliding Scale - SQ Not Given ACHS [facility] Protocol Insulin Detemir 10 units 11/13/17 22:00 11/17/17 22:22 Levemir Vial SQ 10 units HS [facility] Administration Lactulose 20 gm 11/13/17 22:00 11/18/17 10:09 Cephulac (Oral Use) PO 20 gm BID [facility] Administration Levalbuterol HCl 0.63 mg 11/15/17 14:00 11/18/17 08:35 Xopenex IH 0.63 mg RTID [facility] Administration Levalbuterol HCl 0.63 mg 11/15/17 11:30 Xopenex IH Q6H PRN ASTHMA Lidocaine 1 patch 11/14/17 10:00 11/18/17 10:11 Lidoderm Patch - TP Not Given DAILY [facility] Lisinopril 5 mg 11/14/17 10:00 11/18/17 10:09 Prinivil PO 5 mg DAILY [facility] Administration Methylprednisolone Sodium Succinate 40 mg 11/18/17 11:11 Solu-Medrol - IVPUSH Q8H-IV [facility] Miscellaneous 1 each 11/13/17 22:00 11/17/17 21:52 Lidoderm Patch Removal MC Not Given DAILY@2200 [facility] Nicotine 21 mg 11/14/17 19:00 11/18/17 10:09 Nicoderm Patch - TD 21 mg DAILY [facility] Administration Oxycodone HCl 10 mg 11/18/17 10:04 Roxicodone - PO Q6H PRN PAIN LEVEL 6-10 Psyllium Hydrophilic Mucilloid 5.85 gm 11/13/17 22:00 11/18/17 10:09 Metamucil (Sugar-Free) - PO 5.85 gm BID [facility] Administration Tiotropium [place] 2 puff 11/15/17 11:45 11/18/17 10:11 Spiriva Respimat IH 2 puff DAILY [facility] Administration Impression 1. CKD 2. proteinuria 3. CAD 4. CHF 5. COPD 6. DM 7. HTN Plan - cont with lasix - monitor renal function - repeat labs in am - monitor output - cont to monitor volume status - can cont deidra - avoid nsiads Dr Belcher
[2017-11-18] MEDS: oxyCODONE HCL 5 MG TABLET PO PRN ×2 (13:39→20:14)
[2017-11-18] MEDS: methylPREDNISolone NA SUCC 40 MG/1 ML VIAL IVPUSH SCH (17:37)
[2017-11-18] MEDS ORDERED: PT OWN MED DRAWER 7, Y5N ONE (17:40)
[2017-11-18] MEDS ORDERED: ZOLPIDEM TARTRATE 5 MG TABLET PO ONE (21:30)
[2017-11-18] MEDS: INSULIN (LEVEMIR) 100 UNITS/ML UNITS SQ SCH (21:44)
[2017-11-18] MEDS: ATORVASTATIN CA 10 MG TABLET (FP) PO SCH (21:47)
[2017-11-18] MEDS: LIDOCAINE PATCH REMOVAL MC SCH (21:49)
[2017-11-19] MEDS: methylPREDNISolone NA SUCC 40 MG/1 ML VIAL IVPUSH SCH ×3 (01:53→22:29)
[2017-11-19] MEDS: DOCUSATE SODIUM 100 MG CAPSULE (FP) PO SCH ×3 (05:46→22:28)
[2017-11-19] MEDS: FUROSEMIDE 40 MG/4 ML INJECTABLE VIAL IVPUSH SCH ×2 (05:46→17:36)
[2017-11-19] MEDS: HEPARIN NA (PORCINE) 5,000 UNITS/ML 1ML VIAL SQ SCH ×3 (05:47→22:28)
[2017-11-19] MEDS: oxyCODONE HCL 5 MG TABLET PO PRN ×3 (05:49→20:12)
[2017-11-19] MEDS: ACETAMINOPHEN 325 MG TABLET (FP) PO PRN ×3 (05:50→20:12)
[2017-11-19] MEDS ORDERED: INSULIN (NOVOLOG) ASPART 100 UNITS/ML 10ML VIAL ONE ×2 (06:22→12:54)
[2017-11-19] MEDS: INSULIN SLIDING SCALE (NOVOLOG) 1 VIAL SQ SCH ×4 (06:25→22:24)
[2017-11-19 06:45] LABS: BASO % 0.1 % (0-2.0); HEMATOCRIT 27.6 % (35.4-49); HEMOGLOBIN 9.5 GM/dL (11.7-16.9); LYMPH % 4.6 % (8-40); MCH 32.2 pg (25.7-33.7); MCHC 34.4 g/dl (32.0-35.9); MEAN CELL VOLUME 93.7 fl (80-96); MONO % 5.8 % (3.8-10.2); NEUT % 89.5 % (42.8-82.8); PLATELET COUNT 150 K/MM3 (134-434); RBC 2.94 M/mm3 (4.00-5.60); RDW 16.8 % (11.9-15.9); WHITE BLOOD COUNT 10.6 K/mm3 (4.0-10.0)
[2017-11-19 07:22] LABS: CHLORIDE 101 mmol/L (98-107); POTASSIUM 4.3 mmol/L (3.5-5.1); SODIUM 140 mmol/L (136-145)
[2017-11-19 07:32] LABS: ANION GAP 10 (8-16); BLOOD UREA NITROGEN 80 mg/dL (7-18); CALCIUM 8.7 mg/dL (8.5-10.1); CO2 29 mmol/L (21-32); CREATININE 2.2 mg/dL (0.7-1.3); GLUCOSE,RANDOM 197 mg/dL (74-106)
[2017-11-19 08:30] VITALS: BMI 29.4
--- NOTE | 2017-11-19 09:44 | PN ---
Progress Note, Physician Chief Complaint: Pt sitting in bed in no acute distress. reports feeling well. on O2 2l, which he is on at home. denies chest pain, worsening sob, n/v/d - Current Medication List Current Medications: Active Medications Acetaminophen (Tylenol -) 325 mg PO Q6H PRN PRN Reason: PAIN LEVEL 6-10 WITH OXYCODON Last Admin: 11/19/17 05:50 Dose: 325 mg Amlodipine Besylate (Norvasc -) 5 mg PO DAILY [facility] Last Admin: 11/18/17 10:09 Dose: 5 mg Aspirin (Ecotrin -) 81 mg PO DAILY [facility] Last Admin: 11/18/17 10:09 Dose: 81 mg Atorvastatin Calcium (Lipitor -) 10 mg PO HS [facility] Last Admin: 11/18/17 21:47 Dose: 10 mg Budesonide/Formoterol Fumarate (Symbicort 160/4.5mcg -) 1 puff IH DAILY [facility] Last Admin: 11/18/17 10:12 Dose: 1 inh Carvedilol (Coreg -) 25 mg PO BID [facility] Last Admin: 11/18/17 21:47 Dose: 25 mg Cholecalciferol (Vitamin D3 -) 2,000 unit PO DAILY [facility] Last Admin: 11/18/17 10:09 Dose: 2,000 unit Clopidogrel Bisulfate (Plavix -) 75 mg PO DAILY [facility] Last Admin: 11/18/17 10:11 Dose: 75 mg Cyclobenzaprine HCl (Flexeril -) 10 mg PO TID PRN PRN Reason: PAIN Last Admin: 11/18/17 21:47 Dose: 10 mg Docusate Sodium (Colace -) 100 mg PO TID [facility] Last Admin: 11/19/17 05:46 Dose: 100 mg Ferrous Sulfate (Feosol -) 325 mg PO DAILY [facility] Last Admin: 11/18/17 10:11 Dose: 325 mg Furosemide (Lasix Injection -) 40 mg IVPUSH BIDLASIX [facility] Last Admin: 11/19/17 05:46 Dose: 40 mg Heparin Sodium (Porcine) (Heparin -) 5,000 unit SQ TID [facility] Last Admin: 11/19/17 05:47 Dose: 5,000 unit Insulin Aspart (Novolog Vial Sliding Scale -) 1 vial SQ [facility]; Protocol Last Admin: 11/19/17 06:25 Dose: 2 units Insulin Detemir (Levemir Vial) 10 units SQ HS [facility] Last Admin: 11/18/17 21:44 Dose: 10 units Lactulose (Cephulac (Oral Use)) 20 gm PO BID [facility] Last Admin: 11/18/17 21:42 Dose: 20 gm Levalbuterol HCl (Xopenex) 0.63 mg IH RTID [facility] Last Admin: 11/18/17 20:09 Dose: 0.63 mg Levalbuterol HCl (Xopenex) 0.63 mg IH Q6H PRN PRN Reason: ASTHMA Lidocaine (Lidoderm Patch -) 1 patch TP DAILY [facility] Last Admin: 11/18/17 10:11 Dose: Not Given Lisinopril (Prinivil) 5 mg PO DAILY [facility] Last Admin: 11/18/17 10:09 Dose: 5 mg Methylprednisolone Sodium Succinate (Solu-Medrol -) 40 mg IVPUSH Q8H-IV [facility] Last Admin: 11/19/17 01:53 Dose: 40 mg Miscellaneous (Lidoderm Patch Removal) 1 each MC DAILY@2200 [facility] Last Admin: 11/18/17 21:49 Dose: Not Given Nicotine (Nicoderm Patch -) 21 mg TD DAILY [facility] Last Admin: 11/18/17 10:09 Dose: 21 mg Oxycodone HCl (Roxicodone -) 10 mg PO Q6H PRN PRN Reason: PAIN LEVEL 6-10 Last Admin: 11/19/17 05:49 Dose: 10 mg Psyllium Hydrophilic Mucilloid (Metamucil (Sugar-Free) -) 5.85 gm PO BID [facility] Last Admin: 11/18/17 21:48 Dose: 5.85 gm Tiotropium [place] (Spiriva Respimat) 2 puff IH DAILY [facility] Last Admin: 11/18/17 10:11 Dose: 2 puff - Objective Vital Signs: Vital Signs Temperature 98.2 F 11/19/17 05:31 Pulse Rate 82 11/19/17 09:23 Respiratory Rate 20 11/19/17 09:23 Blood Pressure 144/90 11/19/17 09:23 O2 Sat by Pulse Oximetry (%) 96 11/19/17 09:00 Constitutional: Yes: Well Nourished, No Distress, Calm Cardiovascular: Yes: Pulse Irregular. No: Murmur, Rub Respiratory: Yes: Regular, Cough, Diminished, Rales (bibasilar). No: Accessory Muscle Use, Rhonchi, SOB, Tachypnea, Wheezes Gastrointestinal: Yes: WNL, Normal Bowel Sounds, Soft. No: Distention, Tenderness Genitourinary: Yes: WNL Musculoskeletal: Yes: WNL Extremities: Yes: WNL Edema: No Neurological: Yes: WNL, Alert, Oriented Psychiatric: Yes: WNL, Alert, Oriented Labs: CBC, BMP 11/19/17 05:00 11/19/17 05:00 INR, PTT INR 1.26 (0.83-1.09) H 11/13/17 17:00 Problem List - Problems (1) Shortness of breath Code(s): R06.02 - SHORTNESS OF BREATH (2) Elevated d-dimer Code(s): R79.1 - ABNORMAL COAGULATION PROFILE (3) Acute exacerbation of CHF (congestive heart failure) Code(s): I50.9 - HEART FAILURE, UNSPECIFIED Qualifiers: Heart failure type: systolic Qualified Code(s): I50.23 - Acute on chronic systolic (congestive) heart failure (4) Pleural effusion Code(s): J90 - PLEURAL EFFUSION, NOT ELSEWHERE CLASSIFIED (5) COPD exacerbation Code(s): J44.1 - CHRONIC OBSTRUCTIVE PULMONARY DISEASE W (ACUTE) EXACERBATION (6) Chronic kidney disease (CKD) Code(s): N18.9 - CHRONIC KIDNEY DISEASE, UNSPECIFIED Qualifiers: Chronic kidney disease stage: stage 3 (moderate) Qualified Code(s): N18.3 - Chronic kidney disease, stage 3 (moderate) (7) CAD (coronary artery disease) Code(s): I25.10 - ATHSCL HEART DISEASE OF [place] CORONARY ARTERY W/O ANG PCTRS Qualifiers: [place]ie Ira vs. transplanted heart: me[place]opda heart Associated angina: without angina (8) Diabetes Code(s): E11.9 - TYPE 2 DIABETES MELLITUS WITHOUT COMPLICATIONS Qualifiers: Diabetes mellitus type: type 2 Diabetes mellitus terminal carman insulin use: with terminal carman use Diabetes mellitus complication status: with kidney complications Diabetes mellitus complication detail: with chronic kidney disease Chronic kidney disease stage: stage 3 (moderate) Qualified Code(s): E11.22 - Type 2 diabetes mellitus with diabetic chronic kidney disease; N18.3 - Chronic kidney disease, stage 3 (moderate); Z79.4 - longterm (current) use of 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 (10) CHF (congestive heart failure) Code(s): I50.9 - HEART FAILURE, UNSPECIFIED (11) COPD (chronic obstructive pulmonary disease) Code(s): J44.9 - CHRONIC OBSTRUCTIVE PULMONARY DISEASE, UNSPECIFIED Qualifiers: COPD type: COPD with acute exacerbation Qualified Code(s): J44.1 - Chronic obstructive pulmonary disease with (acute) exacerbation (12) Osteoarthritis, multiple sites Code(s): M15.9 - POLYOSTEOARTHRITIS, UNSPECIFIED Qualifiers: Osteoarthritis type: primary Qualified Code(s): M15.0 - Primary generalized (osteo)arthritis (13) Low back pain Code(s): M54.5 - LOW BACK PAIN Qualifiers: Chronicity: chronic (14) Anemia Code(s): D64.9 - ANEMIA, UNSPECIFIED Qualifiers: Anemia type: due to chronic kidney disease Chronic kidney disease stage: stage 3 (moderate) Qualified Code(s): N18.3 - Chronic kidney disease, stage 3 (moderate); D63.1 - Anemia in chronic kidney disease (15) Atrial tachycardia Code(s): I47.1 - SUPRAVENTRICULAR TACHYCARDIA (16) Peripheral vascular disease Code(s): I73.9 - PERIPHERAL VASCULAR DISEASE, UNSPECIFIED Assessment/Plan (1) Shortness of breath Assessment/Plan: improved, appears at baseline now secondary to chf/copd exacerbation dvt/pe ruled out O2 via nc Code(s): R06.02 - SHORTNESS OF BREATH (2) Elevated d-dimer Assessment/Plan: low suspicion of pe per pulm Code(s): R79.1 - ABNORMAL COAGULATION PROFILE (3) Acute exacerbation of CHF (congestive heart failure) Assessment/Plan: improving, sob at baseline now dry weight 192-196 weight 202 today lasix iv bid continue per cardiology weights O2 NC low na diet cardiology following Code(s): I50.9 - HEART FAILURE, UNSPECIFIED Qualifiers: Heart failure type: systolic Qualified Code(s): I50.23 - Acute on chronic systolic (congestive) heart failure (4) Pleural effusion Assessment/Plan: secondary to acute chf exacerb continue diuresis repeat chest xray today pulm following Code(s): J90 - PLEURAL EFFUSION, NOT ELSEWHERE CLASSIFIED (5) COPD exacerbation Assessment/Plan: acute, lung exam improving nebs/medrol taper o2 nc pulm following Code(s): J44.1 - CHRONIC OBSTRUCTIVE PULMONARY DISEASE W (ACUTE) EXACERBATION (6) Chronic kidney disease (CKD) Assessment/Plan: at baseline, mild trend up in bun secondary to diuresis monitor Code(s): N18.9 - CHRONIC KIDNEY DISEASE, UNSPECIFIED Qualifiers: Chronic kidney disease stage: stage 3 (moderate) Qualified Code(s): N18.3 - Chronic kidney disease, stage 3 (moderate) (7) CAD (coronary artery disease) Assessment/Plan: s/p cabgx 3 continue asa/statin/plavix Code(s): I25.10 - ATHSCL HEART DISEASE OF [place] CORONARY ARTERY W/O ANG PCTRS Qualifiers: [place] vs. transplanted heart: [place] heart Associated angina: without angina (8) Diabetes Assessment/Plan: chronic bgm insulin sliding scale/levemir monitor Code(s): E11.9 - TYPE 2 DIABETES MELLITUS WITHOUT COMPLICATIONS Qualifiers: Diabetes mellitus type: type 2 Diabetes mellitus terminal carman insulin use: with terminal carman use Diabetes mellitus complication status: with kidney complications Diabetes mellitus complication detail: with chronic kidney disease Chronic kidney disease stage: stage 3 (moderate) Qualified Code(s): E11.22 - Type 2 diabetes mellitus with diabetic chronic kidney disease; N18.3 - Chronic kidney disease, stage 3 (moderate); 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 (9) HTN (hypertension) Assessment/Plan: controlled continue lisinopril, amlodipine, carvedilol monitor Code(s): I10 - ESSENTIAL (PRIMARY) HYPERTENSION Qualifiers: Hypertension type: essential hypertension Qualified Code(s): I10 - Essential (primary) hypertension (10) CHF (congestive heart failure) Assessment/Plan: s/p icd acute on chronic as above Code(s): I50.9 - HEART FAILURE, UNSPECIFIED (11) COPD (chronic obstructive pulmonary disease) Assessment/Plan: on O2 dependent at home Code(s): J44.9 - CHRONIC OBSTRUCTIVE PULMONARY DISEASE, UNSPECIFIED Qualifiers: COPD type: COPD with acute exacerbation Qualified Code(s): J44.1 - Chronic obstructive pulmonary disease with (acute) exacerbation (12) Osteoarthritis, multiple sites Assessment/Plan: stable Code(s): M15.9 - POLYOSTEOARTHRITIS, UNSPECIFIED Qualifiers: Osteoarthritis type: primary Qualified Code(s): M15.0 - Primary generalized (osteo)arthritis (13) Low back pain Assessment/Plan: chronic PT analgesics prn Code(s): M54.5 - LOW BACK PAIN Qualifiers: Chronicity: chronic (14) Anemia Assessment/Plan: chronic hg/hct stable monitor Code(s): D64.9 - ANEMIA, UNSPECIFIED Qualifiers: Anemia type: due to chronic kidney disease Chronic kidney disease stage: stage 3 (moderate) Qualified Code(s): N18.3 - Chronic kidney disease, stage 3 (moderate); D63.1 - Anemia in chronic kidney disease (15) Atrial tachycardia Assessment/Plan: stable Code(s): I47.1 - SUPRAVENTRICULAR TACHYCARDIA (16) Peripheral vascular disease Assessment/Plan: pad, stable continue statin/plavix/asa Code(s): I73.9 - PERIPHERAL VASCULAR DISEASE, UNSPECIFIED Dispo: Home when pulm/cardiology cleared
[2017-11-19 10:22] LABS: ANISOCYTOSIS 1+; MACROCYTOSIS 1+; PLATELET ESTIMATE DECREASED
[2017-11-19] MEDS: LEVALBUTEROL HCL 0.63 MG/3 ML VIAL.NEB. IH SCH ×3 (10:39→21:12)
[2017-11-19] MEDS ORDERED: PT OWN MED DRAWER 7, Y5N ONE ×3 (10:42→20:58)
[2017-11-19] MEDS: LIDOCAINE 5% TOPICAL PATCH TP SCH (10:57)
[2017-11-19] MEDS: LISINOPRIL 5 MG TABLET (FP) PO SCH (10:57)
[2017-11-19] MEDS: NICOTINE 21 MG/24 HOURS TOPICAL PATCH TD SCH (10:57)
[2017-11-19] MEDS: FERROUS SO4 325 MG TABLET (FP) PO SCH (10:57)
[2017-11-19] MEDS: PSYLLIUM 5.85 GM PACKET PO SCH ×2 (10:57→22:29)
[2017-11-19] MEDS: amLODIPine BESYLATE 5 MG TABLET (FP) PO SCH (10:57)
[2017-11-19] MEDS: CHOLECALCIFEROL (VITAMIN D3) 1,000 UNIT TABLET (FP) PO SCH (10:57)
[2017-11-19] MEDS: LACTULOSE 20 GM/30 ML UDC (FOR ORAL USE ONLY) PO SCH ×2 (10:57→22:29)
[2017-11-19] MEDS: ASPIRIN COATED 81 MG TABLET.EC PO SCH (10:57)
[2017-11-19] MEDS: CLOPIDOGREL BISULFATE 75 MG TABLET (FP) PO SCH (10:57)
[2017-11-19] MEDS: CARVEDILOL 25 MG TABLET (FP) PO SCH ×2 (10:58→22:29)
[2017-11-19] MEDS: BUDESONIDE/FORMETEROL FUMARATE 160/4.5 mcg INHALER IH SCH (10:59)
[2017-11-19] MEDS: TIOTROPIUM BROMIDE 2.5 MCG (SPIRIVA) RESPIMAT INHALER IH SCH (10:59)
--- NOTE | 2017-11-19 10:59 | PN ---
Progress Note (short form) - Note Progress Note: s: no cp palps dizzy; sob improving o: Vital Signs Period Temp Pulse Resp BP Sys/El Pulse Ox Last 24 Hr 97.7 F-98.8 F 60-117 18-20 120-154/75-95 96-96 nad rrr s1s2 no mrg cta bl nl eff aaox3 no le e/c/c abd nt nd pos bs no jaundice diaphoresis Current Medications Generic Name Dose Route Start Last Admin Trade Name Freq PRN Reason Stop Dose Admin Acetaminophen 325 mg 11/13/17 20:37 11/19/17 05:50 Tylenol - PO 325 mg Q6H PRN Administration PAIN LEVEL 6-10 WITH OXYCODON Amlodipine Besylate 5 mg 11/14/17 10:00 11/18/17 10:09 Norvasc - PO 5 mg DAILY [facility] Administration Aspirin 81 mg 11/14/17 10:00 11/18/17 10:09 Ecotrin - PO 81 mg DAILY [facility] Administration Atorvastatin Calcium 10 mg 11/13/17 22:00 11/18/17 21:47 Lipitor - PO 10 mg HS [facility] Administration Budesonide/Formoterol Fumarate 1 puff 11/14/17 10:00 11/18/17 10:12 Symbicort 160/4.5mcg - IH 1 inh DAILY [facility] Administration Carvedilol 25 mg 11/13/17 22:00 11/18/17 21:47 Coreg - PO 25 mg BID [facility] Administration Cholecalciferol 2,000 unit 11/14/17 10:00 11/18/17 10:09 Vitamin D3 - PO 2,000 unit DAILY [facility] Administration Clopidogrel Bisulfate 75 mg 11/14/17 10:00 11/18/17 10:11 Plavix - PO 75 mg DAILY [facility] Administration Cyclobenzaprine HCl 10 mg 11/13/17 20:08 11/18/17 21:47 Flexeril - PO 10 mg TID PRN Administration PAIN Docusate Sodium 100 mg 11/13/17 22:00 11/19/17 05:46 Colace - PO 100 mg TID [facility] Administration Ferrous Sulfate 325 mg 11/14/17 10:00 11/18/17 10:11 Feosol - PO 325 mg DAILY [facility] Administration Furosemide 40 mg 11/16/17 14:00 11/19/17 05:46 Lasix Injection - IVPUSH 40 mg BIDLASIX [facility] Administration Heparin Sodium (Porcine) 5,000 unit 11/17/17 14:30 11/19/17 05:47 Heparin - SQ 5,000 unit TID [facility] Administration Insulin Aspart 1 vial 11/13/17 22:00 11/19/17 06:25 Novolog Vial Sliding Scale - SQ 2 units ACHS [facility] Administration Protocol Insulin Detemir 10 units 11/13/17 22:00 11/18/17 21:44 Levemir Vial SQ 10 units HS [facility] Administration Lactulose 20 gm 11/13/17 22:00 11/18/17 21:42 Cephulac (Oral Use) PO 20 gm BID [facility] Administration Levalbuterol HCl 0.63 mg 11/15/17 14:00 11/18/17 20:09 Xopenex IH 0.63 mg RTID [facility] Administration Levalbuterol HCl 0.63 mg 11/15/17 11:30 Xopenex IH Q6H PRN ASTHMA Lidocaine 1 patch 11/14/17 10:00 11/18/17 10:11 Lidoderm Patch - TP Not Given DAILY [facility] Lisinopril 5 mg 11/14/17 10:00 11/18/17 10:09 Prinivil PO 5 mg DAILY [facility] Administration Methylprednisolone Sodium Succinate 40 mg 11/18/17 11:11 11/19/17 01:53 Solu-Medrol - IVPUSH 40 mg Q8H-IV [facility] Administration Miscellaneous 1 each 11/13/17 22:00 11/18/17 21:49 Lidoderm Patch Removal MC Not Given DAILY@2200 [facility] Nicotine 21 mg 11/14/17 19:00 11/18/17 10:09 Nicoderm Patch - TD 21 mg DAILY [facility] Administration Oxycodone HCl 10 mg 11/18/17 10:04 11/19/17 05:49 Roxicodone - PO 10 mg Q6H PRN Administration PAIN LEVEL 6-10 Psyllium Hydrophilic Mucilloid 5.85 gm 11/13/17 22:00 11/18/17 21:48 Metamucil (Sugar-Free) - PO 5.85 gm BID [facility] Administration Tiotropium [place] 2 puff 11/15/17 11:45 11/18/17 10:11 Spiriva Respimat IH 2 puff DAILY [facility] Administration CBC, BMP 11/19/17 05:00 11/19/17 05:00 ecg: [facility] [employer] ct chest: mild chf, eff L>r, left is chronic tele: [employer] echo 06/2015: mild lve, mod-sev dec lvef, mod lae, nl rv size, mild dec rv fcn, mild-mod mr, mild tr, nl avr fcn, rvsp 30-40 echo 06/2016: sev dec lvef, global hk, rv tds, trinity, mod-sev mr, mod tr, rvsp 50- 60 mibi 09/2014: large inf scar, mod anteroapical ischemia, lvef 25% mibi 06/2016 (pers): non-diagnostic STs; large area inferior/inferolateral/ lateral scar; no ischemia; severe LV cavity dilation; global HK with akinesis of inferior/inferolat/lateral allan; EF 16% a/p: 62 m hx copd, cabgx3 2012, bio avr 2012, pad s/p b/l sfa occlusions, syst chf s/p medtronic icd, htn, hld, a-tach, here with sob. acute systolic chf/persistent L effusion: -had been doing well as outpt for awhile, now here with sob, possibly mild vol overload, was on lasix 40 qd as outpt (dose had been lowered due to worsening ckd). -states home wt runs 192-196. -11/16: subjectively diuresing well to lasix 40 iv qd--change to bid -11/17: continue lasix 40 mg IV BID - 11/18: Cr 2.0->2.1, weight decreasing, still has JVD, continue lasix 40 mg IV BID today -11/19: wt down, cont iv lasix - monitor Cr, daily standing weights elevated d-dimer - intermediate prob of PE on VQ scan - evaluated by pulm, Dr. Manning, low suspicion VTE, heparin gtt dc acute exacerbation of copd: -also contributing to sob -on iv steroids cad/hx of CABG 2012 -no recent angina/ischemia -present sx's not suggestive for angina, enzymes neg x 3 -cont prior cad med regimen: deidra, dapt, statin, bb, ccb bio avr: -nl fcn on echo 06/20 mitral regurgitation: -likely functional MR, mild-mod on echo 06/19, then "mod-severe" when here 06/20 with suspected acute chf and pulm pressures up (though at risk for overestimation of MR severity on that echo report) -valve morphology not described (tethered leaflets?) -no murmur on exam -reassess MR severity on echo once pt adequately diuresed, though surgical or clip intervention not indicated/proven for functional MR CKD: -cr similar to recent outpt labs, monitor with lasix pad: -stable, no claudication, cont current cardiac meds s/p icd: -no shocks -routine outpt monitoring htn: -cont home meds hld: -cont statin atach: -minimal episodes seen in past on icd checks -cont bb -monitor tele anemia: -chronic, stable counts here vs baseline -per pmd
--- NOTE | 2017-11-19 13:19 | PN ---
Progress Note (short form) - Note Progress Note: PULMONARY States breathing is better today. Less cough and wheezing. Anxious to go home. Vital Signs Period Temp Pulse Resp BP Sys/El Pulse Ox Last 24 Hr 97.7 F-98.8 F 60-117 18-20 120-154/75-95 96-96 Gen: mildly tachypneic with speaking Heart: RRR Lung: distant breath sounds, bibasilar rales Abd: soft, nontender Ext: no edema CBC, BMP 11/19/17 05:00 11/19/17 05:00 Active Medications Acetaminophen (Tylenol -) 325 mg PO Q6H PRN PRN Reason: PAIN LEVEL 6-10 WITH OXYCODON Last Admin: 11/19/17 13:18 Dose: 325 mg Amlodipine Besylate (Norvasc -) 5 mg PO DAILY [facility] Last Admin: 11/19/17 10:57 Dose: 5 mg Aspirin (Ecotrin -) 81 mg PO DAILY [facility] Last Admin: 11/19/17 10:57 Dose: 81 mg Atorvastatin Calcium (Lipitor -) 10 mg PO HS [facility] Last Admin: 11/18/17 21:47 Dose: 10 mg Budesonide/Formoterol Fumarate (Symbicort 160/4.5mcg -) 1 puff IH DAILY [facility] Last Admin: 11/19/17 10:59 Dose: 1 inh Carvedilol (Coreg -) 25 mg PO BID [facility] Last Admin: 11/19/17 10:58 Dose: 25 mg Cholecalciferol (Vitamin D3 -) 2,000 unit PO DAILY [facility] Last Admin: 11/19/17 10:57 Dose: 2,000 unit Clopidogrel Bisulfate (Plavix -) 75 mg PO DAILY [facility] Last Admin: 11/19/17 10:57 Dose: 75 mg Cyclobenzaprine HCl (Flexeril -) 10 mg PO TID PRN PRN Reason: PAIN Last Admin: 11/18/17 21:47 Dose: 10 mg Docusate Sodium (Colace -) 100 mg PO TID [facility] Last Admin: 11/19/17 05:46 Dose: 100 mg Ferrous Sulfate (Feosol -) 325 mg PO DAILY [facility] Last Admin: 11/19/17 10:57 Dose: 325 mg Furosemide (Lasix Injection -) 40 mg IVPUSH BIDLASIX [facility] Last Admin: 11/19/17 05:46 Dose: 40 mg Heparin Sodium (Porcine) (Heparin -) 5,000 unit SQ TID [facility] Last Admin: 11/19/17 05:47 Dose: 5,000 unit Insulin Aspart (Novolog Vial Sliding Scale -) 1 vial SQ ACHS [facility]; Protocol Last Admin: 11/19/17 13:02 Dose: 4 units Insulin Detemir (Levemir Vial) 10 units SQ HS [facility] Last Admin: 11/18/17 21:44 Dose: 10 units Lactulose (Cephulac (Oral Use)) 20 gm PO BID [facility] Last Admin: 11/19/17 10:57 Dose: 20 gm Levalbuterol HCl (Xopenex) 0.63 mg IH RTID [facility] Last Admin: 11/19/17 11:39 Dose: 0.63 mg Levalbuterol HCl (Xopenex) 0.63 mg IH Q6H PRN PRN Reason: ASTHMA Lidocaine (Lidoderm Patch -) 1 patch TP DAILY [facility] Last Admin: 11/19/17 10:57 Dose: 1 patch Lisinopril (Prinivil) 5 mg PO DAILY [facility] Last Admin: 11/19/17 10:57 Dose: 5 mg Methylprednisolone Sodium Succinate (Solu-Medrol -) 40 mg IVPUSH Q8H-IV [facility] Last Admin: 11/19/17 10:57 Dose: 40 mg Miscellaneous (Lidoderm Patch Removal) 1 each MC DAILY@2200 [facility] Last Admin: 11/18/17 21:49 Dose: Not Given Nicotine (Nicoderm Patch -) 21 mg TD DAILY [facility] Last Admin: 11/19/17 10:57 Dose: 21 mg Oxycodone HCl (Roxicodone -) 10 mg PO Q6H PRN PRN Reason: PAIN LEVEL 6-10 Last Admin: 11/19/17 13:18 Dose: 10 mg Psyllium Hydrophilic Mucilloid (Metamucil (Sugar-Free) -) 5.85 gm PO BID [facility] Last Admin: 11/19/17 10:57 Dose: 5.85 gm Tiotropium [place] (Spiriva Respimat) 2 puff IH DAILY [facility] Last Admin: 11/19/17 10:59 Dose: 2 puff A/P Acute COPD Exacerbation Acute Systolic Heart Failure Pleural Effusion CAD s/p CABG h/o bio AVR Mitral Regurgitation CKD HTN Hyperlipidemia - can decrease medrol to q12h - if continues to improve, can change steroids to PO prednisone 40mg daily and taper as outpt - inhaled bronchodilators - continue lasix - monitor urine output, creatinine - daily weights - O2 to keep Spo2 >90%, check ambulatory SpO2 on room air to assess for home O2 - DVT prophylaxis
--- NOTE | 2017-11-19 16:22 | PN ---
Progress Note, Physician History of Present Illness: Pt seen and examined at bedside. He is awake and alert. He gets SOB on ambulation. - Current Medication List Current Medications: Active Medications Acetaminophen (Tylenol -) 325 mg PO Q6H PRN PRN Reason: PAIN LEVEL 6-10 WITH OXYCODON Last Admin: 11/19/17 13:18 Dose: 325 mg Amlodipine Besylate (Norvasc -) 5 mg PO DAILY [facility] Last Admin: 11/19/17 10:57 Dose: 5 mg Aspirin (Ecotrin -) 81 mg PO DAILY [facility] Last Admin: 11/19/17 10:57 Dose: 81 mg Atorvastatin Calcium (Lipitor -) 10 mg PO HS [facility] Last Admin: 11/18/17 21:47 Dose: 10 mg Budesonide/Formoterol Fumarate (Symbicort 160/4.5mcg -) 1 puff IH DAILY [facility] Last Admin: 11/19/17 10:59 Dose: 1 inh Carvedilol (Coreg -) 25 mg PO BID [facility] Last Admin: 11/19/17 10:58 Dose: 25 mg Cholecalciferol (Vitamin D3 -) 2,000 unit PO DAILY [facility] Last Admin: 11/19/17 10:57 Dose: 2,000 unit Clopidogrel Bisulfate (Plavix -) 75 mg PO DAILY [facility] Last Admin: 11/19/17 10:57 Dose: 75 mg Cyclobenzaprine HCl (Flexeril -) 10 mg PO TID PRN PRN Reason: PAIN Last Admin: 11/18/17 21:47 Dose: 10 mg Docusate Sodium (Colace -) 100 mg PO TID [facility] Last Admin: 11/19/17 05:46 Dose: 100 mg Ferrous Sulfate (Feosol -) 325 mg PO DAILY [facility] Last Admin: 11/19/17 10:57 Dose: 325 mg Furosemide (Lasix Injection -) 40 mg IVPUSH BIDLASIX [facility] Last Admin: 11/19/17 05:46 Dose: 40 mg Heparin Sodium (Porcine) (Heparin -) 5,000 unit SQ TID [facility] Last Admin: 11/19/17 05:47 Dose: 5,000 unit Insulin Aspart (Novolog Vial Sliding Scale -) 1 vial SQ [facility]; Protocol Last Admin: 11/19/17 13:02 Dose: 4 units Insulin Detemir (Levemir Vial) 10 units SQ HS [facility] Last Admin: 11/18/17 21:44 Dose: 10 units Lactulose (Cephulac (Oral Use)) 20 gm PO BID [facility] Last Admin: 11/19/17 10:57 Dose: 20 gm Levalbuterol HCl (Xopenex) 0.63 mg IH RTID [facility] Last Admin: 11/19/17 14:05 Dose: 0.63 mg Levalbuterol HCl (Xopenex) 0.63 mg IH Q6H PRN PRN Reason: ASTHMA Lidocaine (Lidoderm Patch -) 1 patch TP DAILY [facility] Last Admin: 11/19/17 10:57 Dose: 1 patch Lisinopril (Prinivil) 5 mg PO DAILY [facility] Last Admin: 11/19/17 10:57 Dose: 5 mg Methylprednisolone Sodium Succinate (Solu-Medrol -) 40 mg IVPUSH Q12H [facility] Miscellaneous (Lidoderm Patch Removal) 1 each MC DAILY@2200 [facility] Last Admin: 11/18/17 21:49 Dose: Not Given Nicotine (Nicoderm Patch -) 21 mg TD DAILY [facility] Last Admin: 11/19/17 10:57 Dose: 21 mg Oxycodone HCl (Roxicodone -) 10 mg PO Q6H PRN PRN Reason: PAIN LEVEL 6-10 Last Admin: 11/19/17 13:18 Dose: 10 mg Psyllium Hydrophilic Mucilloid (Metamucil (Sugar-Free) -) 5.85 gm PO BID [facility] Last Admin: 11/19/17 10:57 Dose: 5.85 gm Tiotropium [place] (Spiriva Respimat) 2 puff IH DAILY [facility] Last Admin: 11/19/17 10:59 Dose: 2 puff - Objective Vital Signs: Vital Signs Temperature 97.8 F 11/19/17 14:36 Pulse Rate 97 H 11/19/17 14:36 Respiratory Rate 18 11/19/17 14:36 Blood Pressure 135/85 11/19/17 14:36 O2 Sat by Pulse Oximetry (%) 93 L 11/19/17 14:02 Constitutional: Yes: Calm Eyes: Yes: Conjunctiva Clear HENT: Yes: Atraumatic Neck: Yes: Supple Cardiovascular: Yes: S1, S2 Respiratory: Yes: On Nasal O2 Gastrointestinal: Yes: Normal Bowel Sounds, Soft Genitourinary: Yes: WNL Musculoskeletal: Yes: WNL Edema: No Neurological: Yes: Oriented Psychiatric: Yes: Oriented Labs: CBC, BMP 11/19/17 05:00 11/19/17 05:00 INR, PTT INR 1.26 (0.83-1.09) H 11/13/17 17:00 Problem List - Problems (1) Acute exacerbation of CHF (congestive heart failure) Code(s): I50.9 - HEART FAILURE, UNSPECIFIED Qualifiers: Heart failure type: systolic Qualified Code(s): I50.23 - Acute on chronic systolic (congestive) heart failure (2) COPD exacerbation Code(s): J44.1 - CHRONIC OBSTRUCTIVE PULMONARY DISEASE W (ACUTE) EXACERBATION (3) Chronic kidney disease (CKD) Code(s): N18.9 - CHRONIC KIDNEY DISEASE, UNSPECIFIED Qualifiers: Chronic kidney disease stage: stage 3 (moderate) Qualified Code(s): N18.3 - Chronic kidney disease, stage 3 (moderate) (4) Shortness of breath Code(s): R06.02 - SHORTNESS OF BREATH Assessment/Plan Current Medications Generic Name Dose Route Start Last Admin Trade Name Freq PRN Reason Stop Dose Admin Acetaminophen 325 mg 11/13/17 20:37 11/19/17 13:18 Tylenol - PO 325 mg Q6H PRN Administration PAIN LEVEL 6-10 WITH OXYCODON Amlodipine Besylate 5 mg 11/14/17 10:00 11/19/17 10:57 Norvasc - PO 5 mg DAILY [facility] Administration Aspirin 81 mg 11/14/17 10:00 11/19/17 10:57 Ecotrin - PO 81 mg DAILY [facility] Administration Atorvastatin Calcium 10 mg 11/13/17 22:00 11/18/17 21:47 Lipitor - PO 10 mg HS [facility] Administration Budesonide/Formoterol Fumarate 1 puff 11/14/17 10:00 11/19/17 10:59 Symbicort 160/4.5mcg - IH 1 inh DAILY [facility] Administration Carvedilol 25 mg 11/13/17 22:00 11/19/17 10:58 Coreg - PO 25 mg BID [facility] Administration Cholecalciferol 2,000 unit 11/14/17 10:00 11/19/17 10:57 Vitamin D3 - PO 2,000 unit DAILY [facility] Administration Clopidogrel Bisulfate 75 mg 11/14/17 10:00 11/19/17 10:57 Plavix - PO 75 mg DAILY [facility] Administration Cyclobenzaprine HCl 10 mg 11/13/17 20:08 11/18/17 21:47 Flexeril - PO 10 mg TID PRN Administration PAIN Docusate Sodium 100 mg 11/13/17 22:00 11/19/17 05:46 Colace - PO 100 mg TID [facility] Administration Ferrous Sulfate 325 mg 11/14/17 10:00 11/19/17 10:57 Feosol - PO 325 mg DAILY [facility] Administration Furosemide 40 mg 11/16/17 14:00 11/19/17 05:46 Lasix Injection - IVPUSH 40 mg BIDLASIX [facility] Administration Heparin Sodium (Porcine) 5,000 unit 11/17/17 14:30 11/19/17 05:47 Heparin - SQ 5,000 unit TID [facility] Administration Insulin Aspart 1 vial 11/13/17 22:00 11/19/17 13:02 Novolog Vial Sliding Scale - SQ 4 units ACHS [facility]U Administration Protocol Insulin Detemir 10 units 11/13/17 22:00 11/18/17 21:44 Levemir Vial SQ 10 units HS [facility] Administration Lactulose 20 gm 11/13/17 22:00 11/19/17 10:57 Cephulac (Oral Use) PO 20 gm BID [facility] Administration Levalbuterol HCl 0.63 mg 11/15/17 14:00 11/19/17 14:05 Xopenex IH 0.63 mg RTID [facility] Administration Levalbuterol HCl 0.63 mg 11/15/17 11:30 Xopenex IH Q6H PRN ASTHMA Lidocaine 1 patch 11/14/17 10:00 11/19/17 10:57 Lidoderm Patch - TP 1 patch DAILY [facility] Administration Lisinopril 5 mg 11/14/17 10:00 11/19/17 10:57 Prinivil PO 5 mg DAILY [facility] Administration Methylprednisolone Sodium Succinate 40 mg 11/19/17 22:00 Solu-Medrol - IVPUSH Q12H [facility] Miscellaneous 1 each 11/13/17 22:00 11/18/17 21:49 Lidoderm Patch Removal MC Not Given DAILY@2200 [facility] Nicotine 21 mg 11/14/17 19:00 11/19/17 10:57 Nicoderm Patch - TD 21 mg DAILY [facility] Administration Oxycodone HCl 10 mg 11/18/17 10:04 11/19/17 13:18 Roxicodone - PO 10 mg Q6H PRN Administration PAIN LEVEL 6-10 Psyllium Hydrophilic Mucilloid 5.85 gm 11/13/17 22:00 11/19/17 10:57 Metamucil (Sugar-Free) - PO 5.85 gm BID [facility] Administration Tiotropium [place] 2 puff 11/15/17 11:45 11/19/17 10:59 Spiriva Respimat IH 2 puff DAILY [facility] Administration Impression 1. CKD 2. proteinuria 3. CAD 4. CHF 5. COPD 6. DM 7. HTN Plan - cont to monitor renal function - cont lasix - check daily weights - pt has oxygen at home - volume status is improving - can cont deidra - avoid nsiads Dr Belcher
[2017-11-19] MEDS ORDERED: ZOLPIDEM TARTRATE 5 MG TABLET PO ONE (22:00)
[2017-11-19] MEDS: INSULIN (LEVEMIR) 100 UNITS/ML UNITS SQ SCH (22:24)
[2017-11-19] MEDS: LIDOCAINE PATCH REMOVAL MC SCH (22:29)
[2017-11-19] MEDS: ATORVASTATIN CA 10 MG TABLET (FP) PO SCH (22:29)
[2017-11-20] MEDS: ACETAMINOPHEN 325 MG TABLET (FP) PO PRN ×3 (03:49→20:09)
[2017-11-20] MEDS: oxyCODONE HCL 5 MG TABLET PO PRN ×3 (03:49→20:09)
[2017-11-20 06:33] LABS: BASO % 0.1 % (0-2.0); EOS % 0.2 % (0-4.5); HEMATOCRIT 30.4 % (35.4-49); HEMOGLOBIN 10.2 GM/dL (11.7-16.9); LYMPH % 4.6 % (8-40); MCH 31.7 pg (25.7-33.7); MCHC 33.5 g/dl (32.0-35.9); MEAN CELL VOLUME 94.5 fl (80-96); MONO % 5.4 % (3.8-10.2); NEUT % 89.7 % (42.8-82.8); PLATELET COUNT 163 K/MM3 (134-434); RBC 3.21 M/mm3 (4.00-5.60); RDW 17.1 % (11.9-15.9); WHITE BLOOD COUNT 11.6 K/mm3 (4.0-10.0)
[2017-11-20 06:59] LABS: ANION GAP 6 (8-16); BLOOD UREA NITROGEN 85 mg/dL (7-18); CALCIUM 8.6 mg/dL (8.5-10.1); CHLORIDE 97 mmol/L (98-107); CO2 34 mmol/L (21-32); CREATININE 2.4 mg/dL (0.7-1.3); GLUCOSE,RANDOM 205 mg/dL (74-106); MAGNESIUM 2.2 mg/dL (1.8-2.4); POTASSIUM 4.4 mmol/L (3.5-5.1); SODIUM 137 mmol/L (136-145)
[2017-11-20] MEDS: HEPARIN NA (PORCINE) 5,000 UNITS/ML 1ML VIAL SQ SCH ×3 (07:03→23:24)
[2017-11-20] MEDS: FUROSEMIDE 40 MG/4 ML INJECTABLE VIAL IVPUSH SCH ×2 (07:03→16:16)
[2017-11-20] MEDS: DOCUSATE SODIUM 100 MG CAPSULE (FP) PO SCH ×3 (07:03→23:30)
[2017-11-20] MEDS: INSULIN SLIDING SCALE (NOVOLOG) 1 VIAL SQ SCH ×4 (07:04→23:29)
[2017-11-20] MEDS ORDERED: PT OWN MED DRAWER 7, Y5N ONE (07:15)
[2017-11-20] MEDS: LEVALBUTEROL HCL 0.63 MG/3 ML VIAL.NEB. IH SCH ×3 (07:17→20:54)
[2017-11-20 09:43] LABS: PLATELET ESTIMATE DECREASED
--- NOTE | 2017-11-20 10:51 | PN ---
Progress Note, Physician Chief Complaint: Pt sitting in bed in no acute distress. reports feeling well. on O2 2l, which he is on at home. reports sob on exertion, also baseline. denies chest pain, worsening sob, n/v/d - Current Medication List Current Medications: Active Medications Acetaminophen (Tylenol -) 325 mg PO Q6H PRN PRN Reason: PAIN LEVEL 6-10 WITH OXYCODON Last Admin: 11/20/17 03:49 Dose: 325 mg Amlodipine Besylate (Norvasc -) 5 mg PO DAILY [facility] Last Admin: 11/19/17 10:57 Dose: 5 mg Aspirin (Ecotrin -) 81 mg PO DAILY [facility] Last Admin: 11/19/17 10:57 Dose: 81 mg Atorvastatin Calcium (Lipitor -) 10 mg PO HS [facility] Last Admin: 11/19/17 22:29 Dose: 10 mg Budesonide/Formoterol Fumarate (Symbicort 160/4.5mcg -) 1 puff IH DAILY [facility] Last Admin: 11/19/17 10:59 Dose: 1 inh Carvedilol (Coreg -) 25 mg PO BID [facility] Last Admin: 11/19/17 22:29 Dose: 25 mg Cholecalciferol (Vitamin D3 -) 2,000 unit PO DAILY [facility] Last Admin: 11/19/17 10:57 Dose: 2,000 unit Clopidogrel Bisulfate (Plavix -) 75 mg PO DAILY [facility] Last Admin: 11/19/17 10:57 Dose: 75 mg Cyclobenzaprine HCl (Flexeril -) 10 mg PO TID PRN PRN Reason: PAIN Last Admin: 11/18/17 21:47 Dose: 10 mg Docusate Sodium (Colace -) 100 mg PO TID [facility] Last Admin: 11/20/17 07:03 Dose: 100 mg Ferrous Sulfate (Feosol -) 325 mg PO DAILY [facility] Last Admin: 11/19/17 10:57 Dose: 325 mg Furosemide (Lasix Injection -) 40 mg IVPUSH BIDLASIX [facility] Last Admin: 11/20/17 07:03 Dose: 40 mg Heparin Sodium (Porcine) (Heparin -) 5,000 unit SQ TID [facility] Last Admin: 11/20/17 07:03 Dose: 5,000 unit Insulin Aspart (Novolog Vial Sliding Scale -) 1 vial SQ [facility]; Protocol Last Admin: 11/20/17 07:04 Dose: 2 units Insulin Detemir (Levemir Vial) 10 units SQ HS [facility] Last Admin: 11/19/17 22:24 Dose: 10 units Lactulose (Cephulac (Oral Use)) 20 gm PO BID [facility] Last Admin: 11/19/17 22:29 Dose: 20 gm Levalbuterol HCl (Xopenex) 0.63 mg IH RTID [facility] Last Admin: 11/20/17 07:17 Dose: 0.63 mg Levalbuterol HCl (Xopenex) 0.63 mg IH Q6H PRN PRN Reason: ASTHMA Lidocaine (Lidoderm Patch -) 1 patch TP DAILY [facility] Last Admin: 11/19/17 10:57 Dose: 1 patch Lisinopril (Prinivil) 5 mg PO DAILY [facility] Last Admin: 11/19/17 10:57 Dose: 5 mg Methylprednisolone Sodium Succinate (Solu-Medrol -) 40 mg IVPUSH Q12H [facility] Last Admin: 11/19/17 22:29 Dose: 40 mg Miscellaneous (Lidoderm Patch Removal) 1 each MC DAILY@2200 [facility] Last Admin: 11/19/17 22:29 Dose: 1 each Nicotine (Nicoderm Patch -) 21 mg TD DAILY [facility] Last Admin: 11/19/17 10:57 Dose: 21 mg Oxycodone HCl (Roxicodone -) 10 mg PO Q6H PRN PRN Reason: PAIN LEVEL 6-10 Last Admin: 11/20/17 03:49 Dose: 10 mg Psyllium Hydrophilic Mucilloid (Metamucil (Sugar-Free) -) 5.85 gm PO BID [facility] Last Admin: 11/19/17 22:29 Dose: 5.85 gm Tiotropium [place] (Spiriva Respimat) 2 puff IH DAILY [facility] Last Admin: 11/19/17 10:59 Dose: 2 puff - Objective Vital Signs: Vital Signs Temperature 97.9 F 11/20/17 06:00 Pulse Rate 72 11/20/17 06:00 Respiratory Rate 20 11/20/17 06:00 Blood Pressure 136/72 11/20/17 06:00 O2 Sat by Pulse Oximetry (%) 100 11/19/17 21:00 Constitutional: Yes: Well Nourished, No Distress, Calm Cardiovascular: Yes: Pulse Irregular. No: Gallop, Murmur Respiratory: Yes: Regular, Diminished, On Nasal O2, Rales (bibasilar), SOB on Exertion. No: Accessory Muscle Use, Rhonchi, Tachypnea, Wheezes Gastrointestinal: Yes: WNL, Normal Bowel Sounds, Soft. No: Distention, Tenderness Genitourinary: Yes: WNL Musculoskeletal: Yes: WNL Extremities: Yes: WNL Edema: No Neurological: Yes: WNL, Alert, Oriented Psychiatric: Yes: WNL, Alert, Oriented Labs: CBC, BMP 11/20/17 05:30 11/20/17 05:30 INR, PTT INR 1.26 (0.83-1.09) H 11/13/17 17:00 Problem List - Problems (1) Shortness of breath Code(s): R06.02 - SHORTNESS OF BREATH (2) Elevated d-dimer Code(s): R79.1 - ABNORMAL COAGULATION PROFILE (3) Acute exacerbation of CHF (congestive heart failure) Code(s): I50.9 - HEART FAILURE, UNSPECIFIED Qualifiers: Heart failure type: systolic Qualified Code(s): I50.23 - Acute on chronic systolic (congestive) heart failure (4) Pleural effusion Code(s): J90 - PLEURAL EFFUSION, NOT ELSEWHERE CLASSIFIED (5) COPD exacerbation Code(s): J44.1 - CHRONIC OBSTRUCTIVE PULMONARY DISEASE W (ACUTE) EXACERBATION (6) Chronic kidney disease (CKD) Code(s): N18.9 - CHRONIC KIDNEY DISEASE, UNSPECIFIED Qualifiers: Chronic kidney disease stage: stage 3 (moderate) Qualified Code(s): N18.3 - Chronic kidney disease, stage 3 (moderate) (7) CAD (coronary artery disease) Code(s): I25.10 - ATHSCL HEART DISEASE OF [place] CORONARY ARTERY W/O ANG PCTRS Qualifiers: [place] vs. transplanted heart: [place] heart Associated angina: without angina (8) Diabetes Code(s): E11.9 - TYPE 2 DIABETES MELLITUS WITHOUT COMPLICATIONS Qualifiers: Diabetes mellitus type: type 2 Diabetes mellitus rat 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 insulin use: with rat 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 use Diabetes mellitus complication status: with kidney complications Diabetes mellitus complication detail: with chronic kidney disease Chronic kidney disease stage: stage 3 (moderate) Qualified Code(s): E11.22 - Type 2 diabetes mellitus with diabetic chronic kidney disease; N18.3 - Chronic kidney disease, stage 3 (moderate); Z79.4 - USP (current) use of 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 (10) CHF (congestive heart failure) Code(s): I50.9 - HEART FAILURE, UNSPECIFIED (11) COPD (chronic obstructive pulmonary disease) Code(s): J44.9 - CHRONIC OBSTRUCTIVE PULMONARY DISEASE, UNSPECIFIED Qualifiers: COPD type: COPD with acute exacerbation Qualified Code(s): J44.1 - Chronic obstructive pulmonary disease with (acute) exacerbation (12) Osteoarthritis, multiple sites Code(s): M15.9 - POLYOSTEOARTHRITIS, UNSPECIFIED Qualifiers: Osteoarthritis type: primary Qualified Code(s): M15.0 - Primary generalized (osteo)arthritis (13) Low back pain Code(s): M54.5 - LOW BACK PAIN Qualifiers: Chronicity: chronic (14) Anemia Code(s): D64.9 - ANEMIA, UNSPECIFIED Qualifiers: Anemia type: due to chronic kidney disease Chronic kidney disease stage: stage 3 (moderate) Qualified Code(s): N18.3 - Chronic kidney disease, stage 3 (moderate); D63.1 - Anemia in chronic kidney disease (15) Atrial tachycardia Code(s): I47.1 - SUPRAVENTRICULAR TACHYCARDIA (16) Peripheral vascular disease Code(s): I73.9 - PERIPHERAL VASCULAR DISEASE, UNSPECIFIED Assessment/Plan (1) Shortness of breath Assessment/Plan: improved, appears at baseline now secondary to chf/copd exacerbation dvt/pe ruled out O2 via nc Code(s): R06.02 - SHORTNESS OF BREATH (2) Elevated d-dimer Assessment/Plan: low suspicion of pe per pulm Code(s): R79.1 - ABNORMAL COAGULATION PROFILE (3) Acute exacerbation of CHF (congestive heart failure) Assessment/Plan: improving, sob at baseline now dry weight 192-196lbs weight 198 today lasix iv bid continue per cardiology weights O2 NC low na diet cardiology following Code(s): I50.9 - HEART FAILURE, UNSPECIFIED Qualifiers: Heart failure type: systolic Qualified Code(s): I50.23 - Acute on chronic systolic (congestive) heart failure (4) Pleural effusion Assessment/Plan: secondary to acute chf exacerb continue diuresis repeat chest xray- still w/ congestion/effusion pulm following Code(s): J90 - PLEURAL EFFUSION, NOT ELSEWHERE CLASSIFIED (5) COPD exacerbation Assessment/Plan: acute, lung exam improving nebs/medrol taper o2 nc pulm following Code(s): J44.1 - CHRONIC OBSTRUCTIVE PULMONARY DISEASE W (ACUTE) EXACERBATION (6) Chronic kidney disease (CKD) Assessment/Plan: at baseline, mild trend up in cr secondary to diuresis monitor Code(s): N18.9 - CHRONIC KIDNEY DISEASE, UNSPECIFIED Qualifiers: Chronic kidney disease stage: stage 3 (moderate) Qualified Code(s): N18.3 - Chronic kidney disease, stage 3 (moderate) (7) CAD (coronary artery disease) Assessment/Plan: s/p cabgx 3 continue asa/statin/plavix Code(s): I25.10 - ATHSCL HEART DISEASE OF [place] CORONARY ARTERY W/O ANG PCTRS Qualifiers: [place] vs. transplanted heart: [place] heart Associated angina: without angina (8) Diabetes Assessment/Plan: chronic bgm insulin sliding scale/levemir monitor Code(s): E11.9 - TYPE 2 DIABETES MELLITUS WITHOUT COMPLICATIONS Qualifiers: Diabetes mellitus type: type 2 Diabetes mellitus rat 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 insulin use: with rat 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 use Diabetes mellitus complication status: with kidney complications Diabetes mellitus complication detail: with chronic kidney disease Chronic kidney disease stage: stage 3 (moderate) Qualified Code(s): E11.22 - Type 2 diabetes mellitus with diabetic chronic kidney disease; N18.3 - Chronic kidney disease, stage 3 (moderate); Z79.4 - USP (current) use of insulin (9) HTN (hypertension) Assessment/Plan: controlled continue lisinopril, amlodipine, carvedilol monitor Code(s): I10 - ESSENTIAL (PRIMARY) HYPERTENSION Qualifiers: Hypertension type: essential hypertension Qualified Code(s): I10 - Essential (primary) hypertension (10) CHF (congestive heart failure) Assessment/Plan: s/p icd acute on chronic as above Code(s): I50.9 - HEART FAILURE, UNSPECIFIED (11) COPD (chronic obstructive pulmonary disease) Assessment/Plan: on O2 dependent at home Code(s): J44.9 - CHRONIC OBSTRUCTIVE PULMONARY DISEASE, UNSPECIFIED Qualifiers: COPD type: COPD with acute exacerbation Qualified Code(s): J44.1 - Chronic obstructive pulmonary disease with (acute) exacerbation (12) Osteoarthritis, multiple sites Assessment/Plan: stable Code(s): M15.9 - POLYOSTEOARTHRITIS, UNSPECIFIED Qualifiers: Osteoarthritis type: primary Qualified Code(s): M15.0 - Primary generalized (osteo)arthritis (13) Low back pain Assessment/Plan: chronic PT analgesics prn Code(s): M54.5 - LOW BACK PAIN Qualifiers: Chronicity: chronic (14) Anemia Assessment/Plan: chronic hg/hct stable monitor Code(s): D64.9 - ANEMIA, UNSPECIFIED Qualifiers: Anemia type: due to chronic kidney disease Chronic kidney disease stage: stage 3 (moderate) Qualified Code(s): N18.3 - Chronic kidney disease, stage 3 (moderate); D63.1 - Anemia in chronic kidney disease (15) Atrial tachycardia Assessment/Plan: stable Code(s): I47.1 - SUPRAVENTRICULAR TACHYCARDIA (16) Peripheral vascular disease Assessment/Plan: pad, stable continue statin/plavix/asa Code(s): I73.9 - PERIPHERAL VASCULAR DISEASE, UNSPECIFIED Dispo: Home when pulm/cardiology cleared
[2017-11-20] MEDS: NICOTINE 21 MG/24 HOURS TOPICAL PATCH TD SCH (11:00)
[2017-11-20] MEDS: LACTULOSE 20 GM/30 ML UDC (FOR ORAL USE ONLY) PO SCH ×2 (11:00→23:23)
[2017-11-20] MEDS: PSYLLIUM 5.85 GM PACKET PO SCH ×2 (11:00→23:24)
[2017-11-20] MEDS: FERROUS SO4 325 MG TABLET (FP) PO SCH (11:00)
[2017-11-20] MEDS: CARVEDILOL 25 MG TABLET (FP) PO SCH ×2 (11:00→23:24)
[2017-11-20] MEDS: LISINOPRIL 5 MG TABLET (FP) PO SCH (11:01)
[2017-11-20] MEDS: ASPIRIN COATED 81 MG TABLET.EC PO SCH (11:01)
[2017-11-20] MEDS: amLODIPine BESYLATE 5 MG TABLET (FP) PO SCH (11:01)
[2017-11-20] MEDS: CLOPIDOGREL BISULFATE 75 MG TABLET (FP) PO SCH (11:01)
[2017-11-20] MEDS: CHOLECALCIFEROL (VITAMIN D3) 1,000 UNIT TABLET (FP) PO SCH (11:02)
[2017-11-20] MEDS: methylPREDNISolone NA SUCC 40 MG/1 ML VIAL IVPUSH SCH (11:02)
[2017-11-20] MEDS: LIDOCAINE 5% TOPICAL PATCH TP SCH (11:02)
[2017-11-20] MEDS: TIOTROPIUM BROMIDE 2.5 MCG (SPIRIVA) RESPIMAT INHALER IH SCH (11:02)
[2017-11-20] MEDS: BUDESONIDE/FORMETEROL FUMARATE 160/4.5 mcg INHALER IH SCH (11:02)
--- NOTE | 2017-11-20 11:28 | PN ---
Progress Note (short form) - Note Progress Note: s: no cp palps dizzy; sob improving o: Vital Signs Period Temp Pulse Resp BP Sys/El Pulse Ox Last 24 Hr 97.2 F-98.8 F 65-116 18-20 135-153/72-92 93-100 nad rrr s1s2 no mrg cta bl nl eff aaox3 no le e/c/c abd nt nd pos bs no jaundice diaphoresis Current Medications Generic Name Dose Route Start Last Admin Trade Name Freq PRN Reason Stop Dose Admin Acetaminophen 325 mg 11/13/17 20:37 11/20/17 11:00 Tylenol - PO 325 mg Q6H PRN Administration PAIN LEVEL 6-10 WITH OXYCODON Amlodipine Besylate 5 mg 11/14/17 10:00 11/20/17 11:01 Norvasc - PO 5 mg DAILY [facility] Administration Aspirin 81 mg 11/14/17 10:00 11/20/17 11:01 Ecotrin - PO 81 mg DAILY [facility] Administration Atorvastatin Calcium 10 mg 11/13/17 22:00 11/19/17 22:29 Lipitor - PO 10 mg HS [facility]U Administration Budesonide/Formoterol Fumarate 1 puff 11/14/17 10:00 11/20/17 11:02 Symbicort 160/4.5mcg - IH 1 inh DAILY [facility] Administration Carvedilol 25 mg 11/13/17 22:00 11/20/17 11:00 Coreg - PO 25 mg BID [facility] Administration Cholecalciferol 2,000 unit 11/14/17 10:00 11/20/17 11:02 Vitamin D3 - PO 2,000 unit DAILY [facility] Administration Clopidogrel Bisulfate 75 mg 11/14/17 10:00 11/20/17 11:01 Plavix - PO 75 mg DAILY [facility] Administration Cyclobenzaprine HCl 10 mg 11/13/17 20:08 11/18/17 21:47 Flexeril - PO 10 mg TID PRN Administration PAIN Docusate Sodium 100 mg 11/13/17 22:00 11/20/17 07:03 Colace - PO 100 mg TID [facility]U Administration Ferrous Sulfate 325 mg 11/14/17 10:00 11/20/17 11:00 Feosol - PO 325 mg DAILY [facility] Administration Furosemide 40 mg 11/16/17 14:00 11/20/17 07:03 Lasix Injection - IVPUSH 40 mg BIDLASIX [facility]U Administration Heparin Sodium (Porcine) 5,000 unit 11/17/17 14:30 11/20/17 07:03 Heparin - SQ 5,000 unit TID [facility]U Administration Insulin Aspart 1 vial 11/13/17 22:00 11/20/17 07:04 Novolog Vial Sliding Scale - SQ 2 units ACHS [facility]JU Administration Protocol Insulin Detemir 10 units 11/13/17 22:00 11/19/17 22:24 Levemir Vial SQ 10 units HS [facility]U Administration Lactulose 20 gm 11/13/17 22:00 11/20/17 11:00 Cephulac (Oral Use) PO 20 gm BID [facility] Administration Levalbuterol HCl 0.63 mg 11/15/17 14:00 11/20/17 07:17 Xopenex IH 0.63 mg RTID [facility]U Administration Levalbuterol HCl 0.63 mg 11/15/17 11:30 Xopenex IH Q6H PRN ASTHMA Lidocaine 1 patch 11/14/17 10:00 11/20/17 11:02 Lidoderm Patch - TP Not Given DAILY [facility] Lisinopril 5 mg 11/14/17 10:00 11/20/17 11:01 Prinivil PO 5 mg DAILY [facility] Administration Methylprednisolone Sodium Succinate 40 mg 11/19/17 22:00 11/20/17 11:02 Solu-Medrol - IVPUSH 40 mg Q12H [facility]U Administration Miscellaneous 1 each 11/13/17 22:00 11/19/17 22:29 Lidoderm Patch Removal MC 1 each DAILY@2200 [facility] Administration Nicotine 21 mg 11/14/17 19:00 11/20/17 11:00 Nicoderm Patch - TD 21 mg DAILY [facility] Administration Oxycodone HCl 10 mg 11/18/17 10:04 11/20/17 11:00 Roxicodone - PO 10 mg Q6H PRN Administration PAIN LEVEL 6-10 Psyllium Hydrophilic Mucilloid 5.85 gm 11/13/17 22:00 11/20/17 11:00 Metamucil (Sugar-Free) - PO 5.85 gm BID [facility]U Administration Tiotropium [place] 2 puff 11/15/17 11:45 11/20/17 11:02 Spiriva Respimat IH 2 puff DAILY [facility] Administration CBC, BMP 11/20/17 05:30 11/20/17 05:30 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 ct chest: mild chf, eff L>r, left is chronic 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 echo 06/2015: mild lve, mod-sev dec lvef, mod lae, nl rv size, mild dec rv fcn, mild-mod mr, mild tr, nl avr fcn, rvsp 30-40 echo 06/2016: sev dec lvef, global hk, rv tds, tirnity, mod-sev mr, mod tr, rvsp 50- 60 mibi 09/2014: large inf scar, mod anteroapical ischemia, lvef 25% mibi 06/2016 (pers): non-diagnostic STs; large area inferior/inferolateral/ lateral scar; no ischemia; severe LV cavity dilation; global HK with akinesis of inferior/inferolat/lateral allan; EF 16% a/p: 62 m hx copd, cabgx3 2012, bio avr 2012, pad s/p b/l sfa occlusions, syst chf s/p medtronic icd, htn, hld, a-tach, here with sob. acute systolic chf/persistent L effusion: -had been doing well as outpt for awhile, now here with sob, possibly mild vol overload, was on lasix 40 qd as outpt (dose had been lowered due to worsening ckd). -states home wt runs 192-196. -11/16: subjectively diuresing well to lasix 40 iv qd--change to bid -11/17: continue lasix 40 mg IV BID - 11/18: Cr 2.0->2.1, weight decreasing, still has JVD, continue lasix 40 mg IV BID today -11/19-17: wt down, cont iv lasix - monitor Cr, daily standing weights elevated d-dimer - intermediate prob of PE on VQ scan - evaluated by pulm, Dr. Manning, low suspicion VTE, heparin gtt dc acute exacerbation of copd: -also contributing to sob -on iv steroids cad/hx of CABG 2012 -no recent angina/ischemia -present sx's not suggestive for angina, enzymes neg x 3 -cont prior cad med regimen: deidra, dapt, statin, bb, ccb bio avr: -nl fcn on echo 06/20 mitral regurgitation: -likely functional MR, mild-mod on echo 06/19, then "mod-severe" when here 06/20 with suspected acute chf and pulm pressures up (though at risk for overestimation of MR severity on that echo report) -valve morphology not described (tethered leaflets?) -no murmur on exam -reassess MR severity on echo once pt adequately diuresed, though surgical or clip intervention not indicated/proven for functional MR CKD: -cr similar to recent outpt labs, monitor with lasix pad: -stable, no claudication, cont current cardiac meds s/p icd: -no shocks -routine outpt monitoring htn: -cont home meds hld: -cont statin atach: -minimal episodes seen in past on icd checks -cont bb -monitor tele anemia: -chronic, stable counts here vs baseline -per pmd
--- NOTE | 2017-11-20 13:19 | PN ---
Progress Note (short form) - Note Progress Note: PULMONARY States breathing is better today. Less cough and wheezing. Wants to go home with portable O2 Spo2 desats to 88% with ambulation Gen: mildly tachypneic Heart: RRR Lung: distant breath sounds, bibasilar rales Abd: soft, nontender Ext: no edema Active Medications Acetaminophen (Tylenol -) 325 mg PO Q6H PRN PRN Reason: PAIN LEVEL 6-10 WITH OXYCODON Last Admin: 11/19/17 13:18 Dose: 325 mg Amlodipine Besylate (Norvasc -) 5 mg PO DAILY [facility] Last Admin: 11/19/17 10:57 Dose: 5 mg Aspirin (Ecotrin -) 81 mg PO DAILY [facility] Last Admin: 11/19/17 10:57 Dose: 81 mg Atorvastatin Calcium (Lipitor -) 10 mg PO HS [facility] Last Admin: 11/18/17 21:47 Dose: 10 mg Budesonide/Formoterol Fumarate (Symbicort 160/4.5mcg -) 1 puff IH DAILY [facility] Last Admin: 11/19/17 10:59 Dose: 1 inh Carvedilol (Coreg -) 25 mg PO BID [facility] Last Admin: 11/19/17 10:58 Dose: 25 mg Cholecalciferol (Vitamin D3 -) 2,000 unit PO DAILY [facility] Last Admin: 11/19/17 10:57 Dose: 2,000 unit Clopidogrel Bisulfate (Plavix -) 75 mg PO DAILY [facility] Last Admin: 11/19/17 10:57 Dose: 75 mg Cyclobenzaprine HCl (Flexeril -) 10 mg PO TID PRN PRN Reason: PAIN Last Admin: 11/18/17 21:47 Dose: 10 mg Docusate Sodium (Colace -) 100 mg PO TID [facility] Last Admin: 11/19/17 05:46 Dose: 100 mg Ferrous Sulfate (Feosol -) 325 mg PO DAILY [facility] Last Admin: 11/19/17 10:57 Dose: 325 mg Furosemide (Lasix Injection -) 40 mg IVPUSH BIDLASIX [facility] Last Admin: 11/19/17 05:46 Dose: 40 mg Heparin Sodium (Porcine) (Heparin -) 5,000 unit SQ TID [facility] Last Admin: 11/19/17 05:47 Dose: 5,000 unit Insulin Aspart (Novolog Vial Sliding Scale -) 1 vial SQ [facility]; Protocol Last Admin: 11/19/17 13:02 Dose: 4 units Insulin Detemir (Levemir Vial) 10 units SQ HS [facility] Last Admin: 11/18/17 21:44 Dose: 10 units Lactulose (Cephulac (Oral Use)) 20 gm PO BID [facility] Last Admin: 11/19/17 10:57 Dose: 20 gm Levalbuterol HCl (Xopenex) 0.63 mg IH RTID [facility] Last Admin: 11/19/17 11:39 Dose: 0.63 mg Levalbuterol HCl (Xopenex) 0.63 mg IH Q6H PRN PRN Reason: ASTHMA Lidocaine (Lidoderm Patch -) 1 patch TP DAILY [facility] Last Admin: 11/19/17 10:57 Dose: 1 patch Lisinopril (Prinivil) 5 mg PO DAILY [facility] Last Admin: 11/19/17 10:57 Dose: 5 mg Methylprednisolone Sodium Succinate (Solu-Medrol -) 40 mg IVPUSH Q8H-IV [facility] Last Admin: 11/19/17 10:57 Dose: 40 mg Miscellaneous (Lidoderm Patch Removal) 1 each MC DAILY@2200 [facility] Last Admin: 11/18/17 21:49 Dose: Not Given Nicotine (Nicoderm Patch -) 21 mg TD DAILY [facility] Last Admin: 11/19/17 10:57 Dose: 21 mg Oxycodone HCl (Roxicodone -) 10 mg PO Q6H PRN PRN Reason: PAIN LEVEL 6-10 Last Admin: 11/19/17 13:18 Dose: 10 mg Psyllium Hydrophilic Mucilloid (Metamucil (Sugar-Free) -) 5.85 gm PO BID [facility] Last Admin: 11/19/17 10:57 Dose: 5.85 gm Tiotropium [place] (Spiriva Respimat) 2 puff IH DAILY [facility] Last Admin: 11/19/17 10:59 Dose: 2 puff A/P Acute COPD Exacerbation Acute Systolic Heart Failure Pleural Effusion CAD s/p CABG h/o bio AVR Mitral Regurgitation CKD HTN Hyperlipidemia - can change medrol to prednisone with slow taper as an outpatient - inhaled bronchodilators - continue lasix - monitor urine output, creatinine - daily weights - O2 to keep Spo2 >90%, check ambulatory SpO2 on room air to assess for home O2 - DVT prophylaxis Danni FORBES MD
--- NOTE | 2017-11-20 15:13 | PN ---
Progress Note, Physician History of Present Illness: Pt seen and examined at bedside. He feels that his breathing is improving. - Current Medication List Current Medications: Active Medications Acetaminophen (Tylenol -) 325 mg PO Q6H PRN PRN Reason: PAIN LEVEL 6-10 WITH OXYCODON Last Admin: 11/20/17 11:00 Dose: 325 mg Amlodipine Besylate (Norvasc -) 5 mg PO DAILY [facility] Last Admin: 11/20/17 11:01 Dose: 5 mg Aspirin (Ecotrin -) 81 mg PO DAILY [facility] Last Admin: 11/20/17 11:01 Dose: 81 mg Atorvastatin Calcium (Lipitor -) 10 mg PO HS [facility] Last Admin: 11/19/17 22:29 Dose: 10 mg Budesonide/Formoterol Fumarate (Symbicort 160/4.5mcg -) 1 puff IH DAILY [facility] Last Admin: 11/20/17 11:02 Dose: 1 inh Carvedilol (Coreg -) 25 mg PO BID [facility] Last Admin: 11/20/17 11:00 Dose: 25 mg Cholecalciferol (Vitamin D3 -) 2,000 unit PO DAILY [facility] Last Admin: 11/20/17 11:02 Dose: 2,000 unit Clopidogrel Bisulfate (Plavix -) 75 mg PO DAILY [facility] Last Admin: 11/20/17 11:01 Dose: 75 mg Cyclobenzaprine HCl (Flexeril -) 10 mg PO TID PRN PRN Reason: PAIN Last Admin: 11/18/17 21:47 Dose: 10 mg Docusate Sodium (Colace -) 100 mg PO TID [facility] Last Admin: 11/20/17 07:03 Dose: 100 mg Ferrous Sulfate (Feosol -) 325 mg PO DAILY [facility] Last Admin: 11/20/17 11:00 Dose: 325 mg Furosemide (Lasix Injection -) 40 mg IVPUSH BIDLASIX [facility] Last Admin: 11/20/17 07:03 Dose: 40 mg Heparin Sodium (Porcine) (Heparin -) 5,000 unit SQ TID [facility] Last Admin: 11/20/17 07:03 Dose: 5,000 unit Insulin Aspart (Novolog Vial Sliding Scale -) 1 vial SQ [facility]; Protocol Last Admin: 11/20/17 07:04 Dose: 2 units Insulin Detemir (Levemir Vial) 10 units SQ HS [facility] Last Admin: 11/19/17 22:24 Dose: 10 units Lactulose (Cephulac (Oral Use)) 20 gm PO BID [facility] Last Admin: 11/20/17 11:00 Dose: 20 gm Levalbuterol HCl (Xopenex) 0.63 mg IH RTID [facility] Last Admin: 11/20/17 14:51 Dose: 0.63 mg Levalbuterol HCl (Xopenex) 0.63 mg IH Q6H PRN PRN Reason: ASTHMA Lidocaine (Lidoderm Patch -) 1 patch TP DAILY [facility] Last Admin: 11/20/17 11:02 Dose: Not Given Lisinopril (Prinivil) 5 mg PO DAILY [facility] Last Admin: 11/20/17 11:01 Dose: 5 mg Miscellaneous (Lidoderm Patch Removal) 1 each MC DAILY@2200 [facility] Last Admin: 11/19/17 22:29 Dose: 1 each Nicotine (Nicoderm Patch -) 21 mg TD DAILY [facility] Last Admin: 11/20/17 11:00 Dose: 21 mg Oxycodone HCl (Roxicodone -) 10 mg PO Q6H PRN PRN Reason: PAIN LEVEL 6-10 Last Admin: 11/20/17 11:00 Dose: 10 mg Prednisone (Deltasone -) 40 mg PO DAILY [facility] Psyllium Hydrophilic Mucilloid (Metamucil (Sugar-Free) -) 5.85 gm PO BID [facility] Last Admin: 11/20/17 11:00 Dose: 5.85 gm Tiotropium [place] (Spiriva Respimat) 2 puff IH DAILY [facility] Last Admin: 11/20/17 11:02 Dose: 2 puff - Objective Vital Signs: Vital Signs Temperature 98 F 11/20/17 14:29 Pulse Rate 72 11/20/17 14:29 Respiratory Rate 18 11/20/17 14:29 Blood Pressure 124/72 11/20/17 14:29 O2 Sat by Pulse Oximetry (%) 98 11/20/17 09:00 Constitutional: Yes: Calm Eyes: Yes: Conjunctiva Clear HENT: Yes: Atraumatic Cardiovascular: Yes: S1, S2 Respiratory: Yes: On Nasal O2 Gastrointestinal: Yes: Soft Genitourinary: Yes: WNL Musculoskeletal: Yes: WNL Edema: No Neurological: Yes: Oriented Psychiatric: Yes: Oriented Labs: CBC, BMP 11/20/17 05:30 11/20/17 05:30 INR, PTT INR 1.26 (0.83-1.09) H 11/13/17 17:00 Problem List - Problems (1) Acute exacerbation of CHF (congestive heart failure) Code(s): I50.9 - HEART FAILURE, UNSPECIFIED Qualifiers: Heart failure type: systolic Qualified Code(s): I50.23 - Acute on chronic systolic (congestive) heart failure (2) COPD exacerbation Code(s): J44.1 - CHRONIC OBSTRUCTIVE PULMONARY DISEASE W (ACUTE) EXACERBATION (3) Chronic kidney disease (CKD) Code(s): N18.9 - CHRONIC KIDNEY DISEASE, UNSPECIFIED Qualifiers: Chronic kidney disease stage: stage 3 (moderate) Qualified Code(s): N18.3 - Chronic kidney disease, stage 3 (moderate) (4) Shortness of breath Code(s): R06.02 - SHORTNESS OF BREATH Assessment/Plan Current Medications Generic Name Dose Route Start Last Admin Trade Name Freq PRN Reason Stop Dose Admin Acetaminophen 325 mg 11/13/17 20:37 11/20/17 11:00 Tylenol - PO 325 mg Q6H PRN Administration PAIN LEVEL 6-10 WITH OXYCODON Amlodipine Besylate 5 mg 11/14/17 10:00 11/20/17 11:01 Norvasc - PO 5 mg DAILY [facility] Administration Aspirin 81 mg 11/14/17 10:00 11/20/17 11:01 Ecotrin - PO 81 mg DAILY [facility] Administration Atorvastatin Calcium 10 mg 11/13/17 22:00 11/19/17 22:29 Lipitor - PO 10 mg HS [facility]U Administration Budesonide/Formoterol Fumarate 1 puff 11/14/17 10:00 11/20/17 11:02 Symbicort 160/4.5mcg - IH 1 inh DAILY [facility] Administration Carvedilol 25 mg 11/13/17 22:00 11/20/17 11:00 Coreg - PO 25 mg BID [facility]U Administration Cholecalciferol 2,000 unit 11/14/17 10:00 11/20/17 11:02 Vitamin D3 - PO 2,000 unit DAILY [facility] Administration Clopidogrel Bisulfate 75 mg 11/14/17 10:00 11/20/17 11:01 Plavix - PO 75 mg DAILY [facility] Administration Cyclobenzaprine HCl 10 mg 11/13/17 20:08 11/18/17 21:47 Flexeril - PO 10 mg TID PRN Administration PAIN Docusate Sodium 100 mg 11/13/17 22:00 11/20/17 07:03 Colace - PO 100 mg TID [facility]U Administration Ferrous Sulfate 325 mg 11/14/17 10:00 11/20/17 11:00 Feosol - PO 325 mg DAILY [facility] Administration Furosemide 40 mg 11/16/17 14:00 11/20/17 07:03 Lasix Injection - IVPUSH 40 mg BIDLASIX [facility]U Administration Heparin Sodium (Porcine) 5,000 unit 11/17/17 14:30 11/20/17 07:03 Heparin - SQ 5,000 unit TID [facility] Administration Insulin Aspart 1 vial 11/13/17 22:00 11/20/17 07:04 Novolog Vial Sliding Scale - SQ 2 units ACHS [facility]U Administration Protocol Insulin Detemir 10 units 11/13/17 22:00 11/19/17 22:24 Levemir Vial SQ 10 units HS [facility] Administration Lactulose 20 gm 11/13/17 22:00 11/20/17 11:00 Cephulac (Oral Use) PO 20 gm BID [facility] Administration Levalbuterol HCl 0.63 mg 11/15/17 14:00 11/20/17 14:51 Xopenex IH 0.63 mg RTID [facility] Administration Levalbuterol HCl 0.63 mg 11/15/17 11:30 Xopenex IH Q6H PRN ASTHMA Lidocaine 1 patch 11/14/17 10:00 11/20/17 11:02 Lidoderm Patch - TP Not Given DAILY [facility] Lisinopril 5 mg 11/14/17 10:00 11/20/17 11:01 Prinivil PO 5 mg DAILY [facility] Administration Miscellaneous 1 each 11/13/17 22:00 11/19/17 22:29 Lidoderm Patch Removal MC 1 each DAILY@2200 [facility] Administration Nicotine 21 mg 11/14/17 19:00 11/20/17 11:00 Nicoderm Patch - TD 21 mg DAILY [facility] Administration Oxycodone HCl 10 mg 11/18/17 10:04 11/20/17 11:00 Roxicodone - PO 10 mg Q6H PRN Administration PAIN LEVEL 6-10 Prednisone 40 mg 11/20/17 13:30 Deltasone - PO DAILY [facility] Psyllium Hydrophilic Mucilloid 5.85 gm 11/13/17 22:00 11/20/17 11:00 Metamucil (Sugar-Free) - PO 5.85 gm BID [facility] Administration Tiotropium [place] 2 puff 11/15/17 11:45 11/20/17 11:02 Spiriva Respimat IH 2 puff DAILY [facility] Administration Impression 1. CKD 2. proteinuria 3. CAD 4. CHF 5. COPD 6. DM 7. HTN Plan - consider changing diuretics to PO - cont to monitor renal function and bicarb - cardio input appreciated - will follow - pt follows with Dr Stein as outpt - cont oxygen - check daily weights - volume status is improving - can cont deidra - avoid nsiads Dr Belcher
[2017-11-20] MEDS ORDERED: INSULIN (NOVOLOG) ASPART 100 UNITS/ML 10ML VIAL ONE (16:11)
[2017-11-20] MEDS: predniSONE 20 MG TABLET (UD) PO SCH (16:16)
[2017-11-20] MEDS ORDERED: ZOLPIDEM TARTRATE 5 MG TABLET PO ONE (23:15)
[2017-11-20] MEDS: ATORVASTATIN CA 10 MG TABLET (FP) PO SCH (23:24)
[2017-11-20] MEDS: INSULIN (LEVEMIR) 100 UNITS/ML UNITS SQ SCH (23:30)
[2017-11-20] MEDS: LIDOCAINE PATCH REMOVAL MC SCH (23:33)
[2017-11-21] MEDS: HEPARIN NA (PORCINE) 5,000 UNITS/ML 1ML VIAL SQ SCH ×2 (06:43→16:50)
[2017-11-21] MEDS: oxyCODONE HCL 5 MG TABLET PO PRN (06:43)
[2017-11-21] MEDS: DOCUSATE SODIUM 100 MG CAPSULE (FP) PO SCH ×2 (06:44→16:50)
[2017-11-21] MEDS: FUROSEMIDE 40 MG/4 ML INJECTABLE VIAL IVPUSH SCH (06:44)
[2017-11-21] MEDS: INSULIN SLIDING SCALE (NOVOLOG) 1 VIAL SQ SCH ×3 (07:02→16:50)
[2017-11-21 07:28] LABS: BASO % 0.4 % (0-2.0); EOS % 0.5 % (0-4.5); HEMATOCRIT 31.6 % (35.4-49); HEMOGLOBIN 10.7 GM/dL (11.7-16.9); LYMPH % 6.2 % (8-40); MCH 31.9 pg (25.7-33.7); MCHC 33.8 g/dl (32.0-35.9); MEAN CELL VOLUME 94.5 fl (80-96); MEAN PLT VOLUME 9.1 fl (7.5-11.1); MONO % 6.8 % (3.8-10.2); NEUT % 86.1 % (42.8-82.8); PLATELET COUNT 177 K/MM3 (134-434); RBC 3.35 M/mm3 (4.00-5.60); RDW 17.6 % (11.9-15.9)
[2017-11-21 08:07] LABS: ANION GAP 11 (8-16); BLOOD UREA NITROGEN 100 mg/dL (7-18); CALCIUM 8.9 mg/dL (8.5-10.1); CHLORIDE 98 mmol/L (98-107); CO2 30 mmol/L (21-32); GLUCOSE,RANDOM 151 mg/dL (74-106); POTASSIUM 4.4 mmol/L (3.5-5.1); SODIUM 139 mmol/L (136-145)
[2017-11-21 08:09] LABS: CREATININE 2.6 mg/dL (0.7-1.3)
[2017-11-21] MEDS: LEVALBUTEROL HCL 0.63 MG/3 ML VIAL.NEB. IH SCH ×2 (08:30→15:00)
--- NOTE | 2017-11-21 09:22 | PN ---
Progress Note, Physician Chief Complaint: Feeling improved less SOB History of Present Illness: 62 yrs old man with multiple medical Co morbidities including COPD, HTN, T2DM, CKD stgae 4, CAd s/p stent Ischemic Cardiomyopathy, sHF s/p AICD, bioprosthetic AVR, admitted with decompensated CHF and worsening renal functions. - Current Medication List Current Medications: Active Medications Acetaminophen (Tylenol -) 325 mg PO Q6H PRN PRN Reason: PAIN LEVEL 6-10 WITH OXYCODON Last Admin: 11/20/17 20:09 Dose: 325 mg Amlodipine Besylate (Norvasc -) 5 mg PO DAILY [facility] Last Admin: 11/20/17 11:01 Dose: 5 mg Aspirin (Ecotrin -) 81 mg PO DAILY [facility] Last Admin: 11/20/17 11:01 Dose: 81 mg Atorvastatin Calcium (Lipitor -) 10 mg PO HS [facility] Last Admin: 11/20/17 23:24 Dose: 10 mg Budesonide/Formoterol Fumarate (Symbicort 160/4.5mcg -) 1 puff IH DAILY [facility] Last Admin: 11/20/17 11:02 Dose: 1 inh Carvedilol (Coreg -) 25 mg PO BID [facility] Last Admin: 11/20/17 23:24 Dose: 25 mg Cholecalciferol (Vitamin D3 -) 2,000 unit PO DAILY [facility] Last Admin: 11/20/17 11:02 Dose: 2,000 unit Clopidogrel Bisulfate (Plavix -) 75 mg PO DAILY [facility] Last Admin: 11/20/17 11:01 Dose: 75 mg Cyclobenzaprine HCl (Flexeril -) 10 mg PO TID PRN PRN Reason: PAIN Last Admin: 11/18/17 21:47 Dose: 10 mg Docusate Sodium (Colace -) 100 mg PO TID [facility] Last Admin: 11/21/17 06:44 Dose: 100 mg Ferrous Sulfate (Feosol -) 325 mg PO DAILY [facility] Last Admin: 11/20/17 11:00 Dose: 325 mg Furosemide (Lasix Injection -) 40 mg IVPUSH BIDLASIX [facility] Last Admin: 11/21/17 06:44 Dose: 40 mg Heparin Sodium (Porcine) (Heparin -) 5,000 unit SQ TID [facility] Last Admin: 11/21/17 06:43 Dose: 5,000 unit Insulin Aspart (Novolog Vial Sliding Scale -) 1 vial SQ ACHS [facility]; Protocol Last Admin: 11/21/17 07:02 Dose: Not Given Insulin Detemir (Levemir Vial) 10 units SQ HS [facility] Last Admin: 11/20/17 23:30 Dose: 10 units Lactulose (Cephulac (Oral Use)) 20 gm PO BID [facility] Last Admin: 11/20/17 23:23 Dose: 20 gm Levalbuterol HCl (Xopenex) 0.63 mg IH RTID [facility] Last Admin: 11/21/17 08:30 Dose: 0.63 mg Levalbuterol HCl (Xopenex) 0.63 mg IH Q6H PRN PRN Reason: ASTHMA Lidocaine (Lidoderm Patch -) 1 patch TP DAILY [facility] Last Admin: 11/20/17 11:02 Dose: Not Given Lisinopril (Prinivil) 5 mg PO DAILY [facility] Last Admin: 11/20/17 11:01 Dose: 5 mg Miscellaneous (Lidoderm Patch Removal) 1 each MC DAILY@2200 [facility] Last Admin: 11/20/17 23:33 Dose: Not Given Nicotine (Nicoderm Patch -) 21 mg TD DAILY [facility] Last Admin: 11/20/17 11:00 Dose: 21 mg Oxycodone HCl (Roxicodone -) 10 mg PO Q6H PRN PRN Reason: PAIN LEVEL 6-10 Last Admin: 11/21/17 06:43 Dose: 10 mg Prednisone (Deltasone -) 40 mg PO DAILY [facility] Last Admin: 11/20/17 16:16 Dose: 40 mg Psyllium Hydrophilic Mucilloid (Metamucil (Sugar-Free) -) 5.85 gm PO BID [facility] Last Admin: 11/20/17 23:24 Dose: 5.85 gm Tiotropium [place] (Spiriva Respimat) 2 puff IH DAILY [facility] Last Admin: 11/20/17 11:02 Dose: 2 puff - Objective Vital Signs: Vital Signs Temperature 98.3 F 11/21/17 02:00 Pulse Rate 60 11/21/17 06:00 Respiratory Rate 20 11/21/17 06:00 Blood Pressure 160/91 11/21/17 06:00 O2 Sat by Pulse Oximetry (%) 98 11/20/17 09:00 Labs: CBC, BMP 11/21/17 06:00 11/21/17 06:00 INR, PTT INR 1.26 (0.83-1.09) H 11/13/17 17:00 Problem List - Problems (1) Acute exacerbation of CHF (congestive heart failure) Assessment/Plan: Improving on current regimen on Coreg IV Lasix F/U cardiology input. Code(s): I50.9 - HEART FAILURE, UNSPECIFIED Qualifiers: Heart failure type: systolic Qualified Code(s): I50.23 - Acute on chronic systolic (congestive) heart failure (2) COPD exacerbation Assessment/Plan: Improving cont Spiriva, Duo Neb switched to PO Prednisone Code(s): J44.1 - CHRONIC OBSTRUCTIVE PULMONARY DISEASE W (ACUTE) EXACERBATION (3) Chronic kidney disease (CKD) Assessment/Plan: Renal functions are at base line F//U BMP Code(s): N18.9 - CHRONIC KIDNEY DISEASE, UNSPECIFIED Qualifiers: Chronic kidney disease stage: stage 3 (moderate) Qualified Code(s): N18.3 - Chronic kidney disease, stage 3 (moderate) (4) Diabetes mellitus with chronic kidney disease Assessment/Plan: On Levimir and correction dose insulin Code(s): E11.22 - TYPE 2 DIABETES MELLITUS W DIABETIC CHRONIC KIDNEY DISEASE; N18.9 - CHRONIC KIDNEY DISEASE, UNSPECIFIED (5) HTN (hypertension) Assessment/Plan: Well controlled cont all home meds Code(s): I10 - ESSENTIAL (PRIMARY) HYPERTENSION Qualifiers: Hypertension type: essential hypertension Qualified Code(s): I10 - Essential (primary) hypertension (6) S/P AVR Assessment/Plan: No acytive issue, Bioprosthetic lat ECHO as per Cardiology normal functioning valve Code(s): Z95.2 - PRESENCE OF PROSTHETIC HEART VALVE (7) S/P CABG x 3 Assessment/Plan: No C/O Chest pain or anginal symptoms Code(s): Z95.1 - PRESENCE OF AORTOCORONARY BYPASS GRAFT (8) Elevated d-dimer Code(s): R79.1 - ABNORMAL COAGULATION PROFILE (9) Back pain Assessment/Plan: Cont Pain meds Code(s): M54.9 - DORSALGIA, UNSPECIFIED (10) Peripheral vascular disease Assessment/Plan: Cont Statin ASA and Plavix Code(s): I73.9 - PERIPHERAL VASCULAR DISEASE, UNSPECIFIED
--- NOTE | 2017-11-21 09:22 | PN ---
Progress Note, Physician Chief Complaint: sob History of Present Illness: denies any more sob. swelling way down. no cp, palpit, syncope + cigs - Current Medication List Current Medications: Active Medications Acetaminophen (Tylenol -) 325 mg PO Q6H PRN PRN Reason: PAIN LEVEL 6-10 WITH OXYCODON Last Admin: 11/20/17 20:09 Dose: 325 mg Amlodipine Besylate (Norvasc -) 5 mg PO DAILY [facility] Last Admin: 11/20/17 11:01 Dose: 5 mg Aspirin (Ecotrin -) 81 mg PO DAILY [facility] Last Admin: 11/20/17 11:01 Dose: 81 mg Atorvastatin Calcium (Lipitor -) 10 mg PO HS [facility] Last Admin: 11/20/17 23:24 Dose: 10 mg Budesonide/Formoterol Fumarate (Symbicort 160/4.5mcg -) 1 puff IH DAILY [facility] Last Admin: 11/20/17 11:02 Dose: 1 inh Carvedilol (Coreg -) 25 mg PO BID [facility] Last Admin: 11/20/17 23:24 Dose: 25 mg Cholecalciferol (Vitamin D3 -) 2,000 unit PO DAILY [facility] Last Admin: 11/20/17 11:02 Dose: 2,000 unit Clopidogrel Bisulfate (Plavix -) 75 mg PO DAILY [facility] Last Admin: 11/20/17 11:01 Dose: 75 mg Cyclobenzaprine HCl (Flexeril -) 10 mg PO TID PRN PRN Reason: PAIN Last Admin: 11/18/17 21:47 Dose: 10 mg Docusate Sodium (Colace -) 100 mg PO TID [facility] Last Admin: 11/21/17 06:44 Dose: 100 mg Ferrous Sulfate (Feosol -) 325 mg PO DAILY [facility] Last Admin: 11/20/17 11:00 Dose: 325 mg Furosemide (Lasix Injection -) 40 mg IVPUSH BIDLASIX [facility] Last Admin: 11/21/17 06:44 Dose: 40 mg Heparin Sodium (Porcine) (Heparin -) 5,000 unit SQ TID [facility] Last Admin: 11/21/17 06:43 Dose: 5,000 unit Insulin Aspart (Novolog Vial Sliding Scale -) [address] [facility]; Protocol Last Admin: 11/21/17 07:02 Dose: Not Given Insulin Detemir (Levemir Vial) 10 units SQ [facility] Last Admin: 11/20/17 23:30 Dose: 10 units Lactulose (Cephulac (Oral Use)) 20 gm PO BID [facility] Last Admin: 11/20/17 23:23 Dose: 20 gm Levalbuterol HCl (Xopenex) 0.63 mg IH RTID [facility] Last Admin: 11/21/17 08:30 Dose: 0.63 mg Levalbuterol HCl (Xopenex) 0.63 mg IH Q6H PRN PRN Reason: ASTHMA Lidocaine (Lidoderm Patch -) 1 patch TP DAILY [facility] Last Admin: 11/20/17 11:02 Dose: Not Given Lisinopril (Prinivil) 5 mg PO DAILY [facility] Last Admin: 11/20/17 11:01 Dose: 5 mg Miscellaneous (Lidoderm Patch Removal) 1 each MC DAILY@2200 [facility] Last Admin: 11/20/17 23:33 Dose: Not Given Nicotine (Nicoderm Patch -) 21 mg TD DAILY [facility] Last Admin: 11/20/17 11:00 Dose: 21 mg Oxycodone HCl (Roxicodone -) 10 mg PO Q6H PRN PRN Reason: PAIN LEVEL 6-10 Last Admin: 11/21/17 06:43 Dose: 10 mg Prednisone (Deltasone -) 40 mg PO DAILY [facility] Last Admin: 11/20/17 16:16 Dose: 40 mg Psyllium Hydrophilic Mucilloid (Metamucil (Sugar-Free) -) 5.85 gm PO BID [facility] Last Admin: 11/20/17 23:24 Dose: 5.85 gm Tiotropium [place] (Spiriva Respimat) 2 puff IH DAILY [facility] Last Admin: 11/20/17 11:02 Dose: 2 puff - Objective Vital Signs: Vital Signs Temperature 98.3 F 11/21/17 02:00 Pulse Rate 60 11/21/17 06:00 Respiratory Rate 20 11/21/17 06:00 Blood Pressure 160/91 11/21/17 06:00 O2 Sat by Pulse Oximetry (%) 98 11/20/17 09:00 Constitutional: Yes: No Distress, Calm Eyes: No: Sclera Icterus HENT: No: Nasal Congestion Cardiovascular: Yes: Pulse Irregular, JVD (6 cm), S1, S2, Other (PMI non diplaced). No: Gallop, Murmur Respiratory: Yes: CTA Bilaterally. No: Accessory Muscle Use, Rales, Wheezes Gastrointestinal: Yes: Normal Bowel Sounds, Soft. No: Tenderness Musculoskeletal: Yes: Other (No kyphosis) Extremities: No: Cold, Cyanosis Edema: No Integumentary: No: Jaundice Neurological: Yes: Alert, Oriented (x3) Psychiatric: No: Agitated Labs: CBC, BMP 11/21/17 06:00 11/21/17 06:00 INR, PTT INR 1.26 (0.83-1.09) H 11/13/17 17:00 Assessment/Plan ecg: vp packaging ct chest: mild chf, eff L>r, left is chronic echo 06/2016: sev dec lvef, global hk, rv tds, trinity, mod-sev mr, mod tr, rvsp 50- 60 mibi 06/2016 (pers): non-diagnostic STs; large area inferior/inferolateral/ lateral scar; no ischemia; severe LV cavity dilation; global HK with akinesis of inferior/inferolat/lateral allan; EF 16% mibi 09/2014: large inf scar, mod anteroapical ischemia, lvef 25% tele: AFL, HR controlled a/p: 62 m hx copd, cabgx3 2012, bio avr 2012, pad s/p b/l sfa occlusions, syst chf s/p medtronic icd, htn, hld, a-tach, here with sob. acute systolic chf/persistent L effusion: -had been doing well as outpt for awhile, now here with sob, possibly mild vol overload, was on lasix 40 qd as outpt (dose had been lowered due to worsening ckd). -states home wt runs 192-196 (191 in office 10/13/17) -diuresing well with lasix 40 iv bid here. -11/21: wt 196. BUN shira significantly 75 to 100 in past 3 days. creat bumped slightly today 2.6. doubt steroid effect on bun (on oral prednisone now) -suspect he is at or close to dry wt, with JVD still noticeable on exam--? related to severe TR (underappreciated on echo?). -was on lasix 40 qd at home. recommend he go home on lasix 80 qd -he needs recheck of BMP for bun/creatining in office on 11/23 or 11/24 and f/u with dr tang in 1-2 wks acute exacerbation of copd: -iv steroids changed to prednisone taper now -sx's much improved/resolved cad/hx of CABG 2012 -no recent angina/ischemia -present sx's not suggestive for angina, enzymes neg x 3 -cont prior cad med regimen: deidra, dapt, statin, bb, ccb bio avr: -nl fcn on echo 06/20 mitral regurgitation: -likely functional MR, mild-mod on echo 06/19, then "mod-severe" when here 06/20 with suspected acute chf and pulm pressures up (though at risk for overestimation of MR severity on that echo report) -valve morphology not described (tethered leaflets?) -no murmur on exam -reassess MR severity on echo once pt adequately diuresed, though surgical or clip intervention not indicated/proven for functional MR CKD: -stable here -up today--plan as above pad: -stable, no claudication, cont current cardiac meds s/p icd: -no shocks -routine outpt monitoring htn: -cont home meds hld: -cont statin atach: -minimal episodes seen in past on icd checks -cont bb -monitor tele anemia: -chronic, stable counts here vs baseline -per pmd
[2017-11-21 10:00] LABS: PLATELET ESTIMATE ADEQUATE
[2017-11-21] MEDS: amLODIPine BESYLATE 5 MG TABLET (FP) PO SCH (12:16)
[2017-11-21] MEDS: CARVEDILOL 25 MG TABLET (FP) PO SCH (12:16)
[2017-11-21] MEDS: FERROUS SO4 325 MG TABLET (FP) PO SCH (12:16)
[2017-11-21] MEDS: CLOPIDOGREL BISULFATE 75 MG TABLET (FP) PO SCH (12:16)
[2017-11-21] MEDS: LACTULOSE 20 GM/30 ML UDC (FOR ORAL USE ONLY) PO SCH (12:16)
[2017-11-21] MEDS: CHOLECALCIFEROL (VITAMIN D3) 1,000 UNIT TABLET (FP) PO SCH (12:16)
[2017-11-21] MEDS: ASPIRIN COATED 81 MG TABLET.EC PO SCH (12:16)
[2017-11-21] MEDS: predniSONE 20 MG TABLET (UD) PO SCH (12:17)
[2017-11-21] MEDS: NICOTINE 21 MG/24 HOURS TOPICAL PATCH TD SCH (12:17)
[2017-11-21] MEDS: TIOTROPIUM BROMIDE 2.5 MCG (SPIRIVA) RESPIMAT INHALER IH SCH (12:22)
[2017-11-21] MEDS: BUDESONIDE/FORMETEROL FUMARATE 160/4.5 mcg INHALER IH SCH (12:22)
[2017-11-21] MEDS: LISINOPRIL 5 MG TABLET (FP) PO SCH (12:22)
[2017-11-21] MEDS: LIDOCAINE 5% TOPICAL PATCH TP SCH (12:22)
[2017-11-21] MEDS: PSYLLIUM 5.85 GM PACKET PO SCH (12:22)
--- NOTE | 2017-11-21 13:08 | PN ---
Progress Note (short form) - Note Progress Note: PULMONARY States breathing is better today. Less cough and wheezing. Wants to go home with portable O2 Spo2 desats to 88% with ambulation Gen: mildly tachypneic Heart: RRR Lung: distant breath sounds, bibasilar rales Abd: soft, nontender Ext: no edema Active Medications Acetaminophen (Tylenol -) 325 mg PO Q6H PRN PRN Reason: PAIN LEVEL 6-10 WITH OXYCODON Last Admin: 11/19/17 13:18 Dose: 325 mg Amlodipine Besylate (Norvasc -) 5 mg PO DAILY [facility] Last Admin: 11/19/17 10:57 Dose: 5 mg Aspirin (Ecotrin -) 81 mg PO DAILY [facility] Last Admin: 11/19/17 10:57 Dose: 81 mg Atorvastatin Calcium (Lipitor -) 10 mg PO HS [facility] Last Admin: 11/18/17 21:47 Dose: 10 mg Budesonide/Formoterol Fumarate (Symbicort 160/4.5mcg -) 1 puff IH DAILY [facility] Last Admin: 11/19/17 10:59 Dose: 1 inh Carvedilol (Coreg -) 25 mg PO BID [facility] Last Admin: 11/19/17 10:58 Dose: 25 mg Cholecalciferol (Vitamin D3 -) 2,000 unit PO DAILY [facility] Last Admin: 11/19/17 10:57 Dose: 2,000 unit Clopidogrel Bisulfate (Plavix -) 75 mg PO DAILY [facility] Last Admin: 11/19/17 10:57 Dose: 75 mg Cyclobenzaprine HCl (Flexeril -) 10 mg PO TID PRN PRN Reason: PAIN Last Admin: 11/18/17 21:47 Dose: 10 mg Docusate Sodium (Colace -) 100 mg PO TID [facility] Last Admin: 11/19/17 05:46 Dose: 100 mg Ferrous Sulfate (Feosol -) 325 mg PO DAILY [facility] Last Admin: 11/19/17 10:57 Dose: 325 mg Furosemide (Lasix Injection -) 40 mg IVPUSH BIDLASIX [facility] Last Admin: 11/19/17 05:46 Dose: 40 mg Heparin Sodium (Porcine) (Heparin -) 5,000 unit SQ TID [facility] Last Admin: 11/19/17 05:47 Dose: 5,000 unit Insulin Aspart (Novolog Vial Sliding Scale -) 1 vial SQ [facility]; Protocol Last Admin: 11/19/17 13:02 Dose: 4 units Insulin Detemir (Levemir Vial) 10 units SQ HS [facility] Last Admin: 11/18/17 21:44 Dose: 10 units Lactulose (Cephulac (Oral Use)) 20 gm PO BID [facility] Last Admin: 11/19/17 10:57 Dose: 20 gm Levalbuterol HCl (Xopenex) 0.63 mg IH RTID [facility] Last Admin: 11/19/17 11:39 Dose: 0.63 mg Levalbuterol HCl (Xopenex) 0.63 mg IH Q6H PRN PRN Reason: ASTHMA Lidocaine (Lidoderm Patch -) 1 patch TP DAILY [facility] Last Admin: 11/19/17 10:57 Dose: 1 patch Lisinopril (Prinivil) 5 mg PO DAILY [facility] Last Admin: 11/19/17 10:57 Dose: 5 mg Methylprednisolone Sodium Succinate (Solu-Medrol -) 40 mg IVPUSH Q8H-IV [facility] Last Admin: 11/19/17 10:57 Dose: 40 mg Miscellaneous (Lidoderm Patch Removal) 1 each MC DAILY@2200 [facility] Last Admin: 11/18/17 21:49 Dose: Not Given Nicotine (Nicoderm Patch -) 21 mg TD DAILY [facility] Last Admin: 11/19/17 10:57 Dose: 21 mg Oxycodone HCl (Roxicodone -) 10 mg PO Q6H PRN PRN Reason: PAIN LEVEL 6-10 Last Admin: 11/19/17 13:18 Dose: 10 mg Psyllium Hydrophilic Mucilloid (Metamucil (Sugar-Free) -) 5.85 gm PO BID [facility] Last Admin: 11/19/17 10:57 Dose: 5.85 gm Tiotropium [place] (Spiriva Respimat) 2 puff IH DAILY [facility] Last Admin: 11/19/17 10:59 Dose: 2 puff A/P Acute COPD Exacerbation Acute Systolic Heart Failure Pleural Effusion CAD s/p CABG h/o bio AVR Mitral Regurgitation CKD HTN Hyperlipidemia - can change medrol to prednisone with slow taper as an outpatient - inhaled bronchodilators - continue lasix - monitor urine output, creatinine - daily weights - O2 to keep Spo2 >90%, check ambulatory SpO2 on room air to assess for home O2 - DVT prophylaxis Danni FORBES MD
--- NOTE | 2017-11-21 14:19 | PN ---
Progress Note (short form) - Note Progress Note: Problems 1. CKD 2. proteinuria 3. CAD 4. CHF 5. COPD 6. DM 7. HTN Current Medications Acetaminophen (Tylenol -) 325 mg PO Q6H PRN PRN Reason: PAIN LEVEL 6-10 WITH OXYCODON Last Admin: 11/20/17 20:09 Dose: 325 mg Amlodipine Besylate (Norvasc -) 5 mg PO DAILY [facility] Last Admin: 11/21/17 12:16 Dose: 5 mg Aspirin (Ecotrin -) 81 mg PO DAILY [facility] Last Admin: 11/21/17 12:16 Dose: 81 mg Atorvastatin Calcium (Lipitor -) 10 mg PO HS [facility] Last Admin: 11/20/17 23:24 Dose: 10 mg Budesonide/Formoterol Fumarate (Symbicort 160/4.5mcg -) 1 puff IH DAILY [facility] Last Admin: 11/21/17 12:22 Dose: 1 inh Carvedilol (Coreg -) 25 mg PO BID [facility] Last Admin: 11/21/17 12:16 Dose: 25 mg Cholecalciferol (Vitamin D3 -) 2,000 unit PO DAILY [facility] Last Admin: 11/21/17 12:16 Dose: 2,000 unit Clopidogrel Bisulfate (Plavix -) 75 mg PO DAILY [facility] Last Admin: 11/21/17 12:16 Dose: 75 mg Cyclobenzaprine HCl (Flexeril -) 10 mg PO TID PRN PRN Reason: PAIN Last Admin: 11/18/17 21:47 Dose: 10 mg Docusate Sodium (Colace -) 100 mg PO TID [facility] Last Admin: 11/21/17 06:44 Dose: 100 mg Ferrous Sulfate (Feosol -) 325 mg PO DAILY [facility] Last Admin: 11/21/17 12:16 Dose: 325 mg Furosemide (Lasix Injection -) 40 mg IVPUSH BIDLASIX [facility] Last Admin: 11/21/17 06:44 Dose: 40 mg Heparin Sodium (Porcine) (Heparin -) 5,000 unit SQ TID [facility] Last Admin: 11/21/17 06:43 Dose: 5,000 unit Insulin Aspart (Novolog Vial Sliding Scale -) 1 vial SQ [facility]; Protocol Last Admin: 11/21/17 12:23 Dose: 2 units Insulin Detemir (Levemir Vial) 10 units SQ HS [facility] Last Admin: 11/20/17 23:30 Dose: 10 units Lactulose (Cephulac (Oral Use)) 20 gm PO BID [facility] Last Admin: 11/21/17 12:16 Dose: 20 gm Levalbuterol HCl (Xopenex) 0.63 mg IH RTID [facility] Last Admin: 11/21/17 08:30 Dose: 0.63 mg Levalbuterol HCl (Xopenex) 0.63 mg IH Q6H PRN PRN Reason: ASTHMA Lidocaine (Lidoderm Patch -) 1 patch TP DAILY [facility] Last Admin: 11/21/17 12:22 Dose: Not Given Lisinopril (Prinivil) 5 mg PO DAILY [facility] Last Admin: 11/21/17 12:22 Dose: 5 mg Miscellaneous (Lidoderm Patch Removal) 1 each MC DAILY@2200 [facility] Last Admin: 11/20/17 23:33 Dose: Not Given Nicotine (Nicoderm Patch -) 21 mg TD DAILY [facility] Last Admin: 11/21/17 12:17 Dose: 21 mg Oxycodone HCl (Roxicodone -) 10 mg PO Q6H PRN PRN Reason: PAIN LEVEL 6-10 Last Admin: 11/21/17 06:43 Dose: 10 mg Prednisone (Deltasone -) 40 mg PO DAILY [facility] Last Admin: 11/21/17 12:17 Dose: 40 mg Psyllium Hydrophilic Mucilloid (Metamucil (Sugar-Free) -) 5.85 gm PO BID [facility] Last Admin: 11/21/17 12:22 Dose: 5.85 gm Tiotropium [place] (Spiriva Respimat) 2 puff IH DAILY [facility] Last Admin: 11/21/17 12:22 Dose: 2 puff Last Vital Signs Temp Pulse Resp BP Pulse Ox 98.3 F 64 18 132/60 97 11/21/17 02:00 11/21/17 11:57 11/21/17 11:57 11/21/17 11:57 11/21/17 09:00 CBC, BMP 11/21/17 06:00 11/21/17 06:00 IMP renal function not yet at baseline Plan- hydrate orally
--- NOTE | 2017-11-21 14:50 | DS ---
Physical Examination Vital Signs: Vital Signs Temperature 98.3 F 11/21/17 02:00 Pulse Rate 64 11/21/17 11:57 Respiratory Rate 18 11/21/17 11:57 Blood Pressure 132/60 11/21/17 11:57 O2 Sat by Pulse Oximetry (%) 97 11/21/17 09:00 Middle aged man not in distress HEENT: Mm moist, mild anemia NECK: JVD No Bruit CHEST: Basal Crepts CVS: S1S2 R SM + ABD: No distention nonn tender EXT; edema feet +, Pulses + RAP ARTIST AOX3 non focal Labs: CBC, BMP 11/21/17 06:00 11/21/17 06:00 Discharge Summary Reason For Visit: SHORTNESS OF BREATH Current Active Problems Acute exacerbation of CHF (congestive heart failure) (Acute) Afib (Acute) Anemia (Acute) Back pain (Acute) COPD exacerbation (Acute) Chronic kidney disease (CKD) (Acute) S/P AVR (Acute) Shortness of breath (Acute) Hospital Course: 62 yrs old man with multiple medical Co morbidities including COPD, HTN, T2DM, CKD stgae 4, CAd s/p stent Ischemic Cardiomyopathy, sHF s/p AICD, bioprosthetic AVR, admitted with decompensated CHF and worsening renal functions and COPD exacerbation, evaluated by Renal, cardiology and Pulmonary consult, patient gradually improved with diuresis, BUN incresed due to Diuretics and IV corticosteroids, today BUN 100 but cretanine stays at base line , patient has Home O2 at home, wants to go home, cleared by Pulmonary and cardiology consult to DC Home, Case discussed with Dr. Greer recommended switch to PO Lasix 80 mg BID and Rpt BUN on Thursday at PMD office. Plan discussed with the patient. Condition: Guarded - Instructions Diet, Activity, Other Instructions: order glucometer Referrals: Kanu Truong MD [Primary Care Provider] - 11/23/17 Anthony Zafar MD [Staff Physician] - 1 Week Disposition: HOME - Home Medications Comprehensive Discharge Medication List: Ambulatory Orders Amlodipine Besylate [Norvasc -] 5 mg PO DAILY 06/18/15 Aspirin [Aspirin EC] 81 mg PO DAILY 06/18/15 Budesonide/Formeterol Fumarate [SYMBICORT 160/4.5mcg -] 1 inh PO DAILY 06/18/15 Cilostazol 50 mg PO DAILY 06/18/15 Clopidogrel Bisulfate [Clopidogrel] 75 mg PO DAILY 06/18/15 Insulin Detemir [Levemir Flextouch] 10 unit SQ PRN PRN 06/18/15 Lisinopril 5 mg PO DAILY 06/18/15 Simvastatin [Zocor -] 20 mg PO HS 06/18/15 Zolpidem Tartrate [Ambien] 10 mg PO HS 06/18/15 Carvedilol [Coreg -] 25 mg PO BID #60 tablet 06/20/15 Albuterol 0.083% Nebulizer Rosy [Ventolin 0.083% Nebulizer Soln -] 1 neb NEB QID PRN 02/18/16 Lidocaine 5% Patch [Lidoderm -] 1 patch TP DAILY #30 patch 12/08/16 Cyclobenzaprine HCl [Flexeril -] 10 mg PO TID PRN #15 tablet 01/10/17 Psyllium [Metamucil (Sugar-Free) -] 5.85 gm PO BID #1 bottle 06/02/17 Cholecalciferol (Vitamin D3) [Vitamin D3] 2,000 unit PO DAILY #30 capsule Blood Sugar Diagnostic [Glucose Test Strip] 1 each MC QID PRN #100 strip MDD 4 07/28/17 Lactulose (Oral Use) [Cephulac -] 20 gm PO BID #1 bottle 07/28/17 Miscellaneous Medical Supply [Glucometer Device] 1 each TD ASDIR 30 Days ea Misc[employer] Supply [Glucometer Test Strips #100] 1 each TD ASDIR #1 ea 07/28/17 Docusate Sodium [Colace -] 100 mg PO TID #90 capsule 09/22/17 Ferrous Sulfate [Feosol] 325 mg PO DAILY 09/22/17 Oxycodone HCl/Acetaminophen [Percocet 10-325 mg Tablet] 1 each PO QID PRN #120 tablet MDD 4 10/23/17 Furosemide [Lasix -] 80 mg PO DAILY 7 Days #7 tablet 11/21/17 PredniSONE [Deltasone -] 40 mg PO DAILY 40 mg Daily for 2 days 30 mg daily for 2 days 20 mg daily for 2 days 10 mg daily for 2 days.
[2017-11-21 14:56] VITALS: BP 113/55; PULSE 67; TEMP 98.4
[2017-11-22] MEDS ORDERED: FUROSEMIDE 40 MG TABLET (FP) PO SCH (10:00)
== END 2017-11-21 18:02 | disposition home or self-care (01) | DRG 291 ==
LOC: JER 14:54 → JERBED 18:29 → J4W 21:53
PROVIDERS: ADMIT Specialist; ATTEND Specialist
DX: I13.0 Hypertensive heart and chronic kidney disease with heart failure and stage 1 through stage 4 chronic kidney disease, or unspecified chronic kidney disease (principal); I50.21 Acute systolic (congestive) heart failure; J44.1 Chronic obstructive pulmonary disease with (acute) exacerbation; I47.1 Supraventricular tachycardia; N18.3 Chronic kidney disease, stage 3 (moderate); E11.22 Type 2 diabetes mellitus with diabetic chronic kidney disease; I25.10 Atherosclerotic heart disease of native coronary artery without angina pectoris; Z95.1 Presence of aortocoronary bypass graft; I25.5 Ischemic cardiomyopathy; D64.9 Anemia, unspecified; E78.5 Hyperlipidemia, unspecified; I34.0 Nonrheumatic mitral (valve) insufficiency; I73.9 Peripheral vascular disease, unspecified; M54.5 Low back pain; K59.00 Constipation, unspecified
CPT/HCPCS: 36415; 71045-TC-FY; 71046-TC-FY; 71250-TC; 78582-TC; 80048; 80053; 81003; 81015; 82272; 82550; 82570; 82962; 83735; 84156; 84484; 85025; 85027; 85379; 85610; 85730; 93005; 93010; 93970-TC; 94640; 94761; 97116-GP; 97161-GP; 99281-25; A9539; A9540; J1644

== ENCOUNTER 2017-12-29 12:07 | Observation (INO) | payer OTHER ==
--- NOTE | 2017-12-29 12:56 | PDOC ---
History of Present Illness - General Chief Complaint: Shortness of Breath Stated Complaint: Shortness of Breath Time Seen by Provider: 12/29/17 12:15 History Source: Patient, Family (daughter) Exam Limitations: No Limitations - History of Present Illness Initial Comments: 62 y/o M w/PMH of COPD (on home O2 at 2L as needed), HTN, DM, CKD, CAD s/p CABG and pacemaker placement, systolic CHF bioprosthetic AVR, recent hospitalization from 11/13-11/21/17 for CHF exacerbation presents to the ER w/ SOB x2 days that has been progressively worsening and is associated with back pain that is worse with deep inspiration. He has used 7 tanks of oxygen over the last day and he normally uses one per week but the oxygen did not provide relief. He has a cough that he's unsure of if theres any change from his baseline smoker's cough and cough has been without sputum. He also c/o generalized weakness that is worse since his last discharge from the hospital. He does not walk and only walks to go the bathroom for BMs and uses bedside urinal when he needs to urinate. He had chills 2 days ago but none since and has had decreased appetite over the last few months and some bouts of nausea over the last couple of days but no episodes of vomiting. He has not had a BM over the last week as well. He denies fevers, CP, abd pain, edema, recent travel, changes in amount of pillow he uses when sleeps (uses 7 pillows). Daughter has cold symptoms and lives on the floor below him. Past History - Travel Traveled outside of the country in the last 30 days: No Close contact w/someone who was outside of country & ill: No - Past Medical History Allergies/Adverse Reactions: Allergies Allergy/AdvReac Type Severity Reaction Status Date / Time Fish Containing Products Allergy Verified 12/29/17 12:27 codeine AdvReac Intermediate Vomiting Verified 12/29/17 12:27 gabapentin AdvReac Intermediate dizzy Verified 12/29/17 12:27 Home Medications: Ambulatory Orders Amlodipine Besylate [Norvasc -] 5 mg PO DAILY 06/18/15 Aspirin [Aspirin EC] 81 mg PO DAILY 06/18/15 Cilostazol 50 mg PO DAILY 06/18/15 Clopidogrel Bisulfate [Clopidogrel] 75 mg PO DAILY 06/18/15 Simvastatin [Zocor -] 20 mg PO HS 06/18/15 Zolpidem Tartrate [Ambien] 10 mg PO HS 06/18/15 Carvedilol [Coreg -] 25 mg PO BID #60 tablet 06/20/15 Lidocaine 5% Patch [Lidoderm -] 1 patch TP DAILY #30 patch 12/08/16 Psyllium [Metamucil (Sugar-Free) -] 5.85 gm PO BID #1 bottle 06/02/17 Docusate Sodium [Colace -] 100 mg PO TID #90 capsule 09/22/17 Ferrous Sulfate [Feosol] 325 mg PO DAILY 09/22/17 Furosemide [Lasix -] 80 mg PO DAILY 7 Days #7 tablet 11/21/17 Cholecalciferol (Vitamin D3) [Vitamin D3] 2,000 unit PO DAILY #30 capsule Diclofenac Sodium [Voltaren] 2 gm TP TID PRN #3 tube 12/25/17 Lactulose (Oral Use) [Cephulac -] 20 gm PO BID #1 bottle 12/25/17 Oxycodone HCl/Acetaminophen [Percocet 10-325 mg Tablet] 1 each PO QID PRN #120 tablet MDD 4 12/25/17 Budesonide/Formeterol Fumarate [SYMBICORT 160/4.5mcg -] 1 puff IH DAILY inhaler 12/30/17 Cyclobenzaprine HCl 5 mg PO BID #28 tablet 12/30/17 levoFLOXacin [Levaquin -] 250 mg PO DAILY@0600 5 Days #5 tablet 12/30/17 Anemia: No Asthma: No Cancer: No Cardiac Disorders: Yes (cabg, AFIB) CVA: No COPD: Yes CHF: Yes (with pleural effusion) Dementia: No Diabetes: Yes (with neuropathy) GI Disorders: No Disorders: No HTN: Yes Hypercholesterolemia: Yes Liver Disease: No Seizures: No Thyroid Disease: No - Surgical History Abdominal Surgery: No Appendectomy: No Cardiac Surgery: Yes (CABG x 3, implanted defib and pacer) Cholecystectomy: No Lung Surgery: No Neurologic Surgery: No Orthopedic Surgery: No - Immunization History Td Vaccination: Yes (unknown) Immunization Up to Date: Yes - Suicide/Smoking/Psychosocial Hx Smoking Status: Yes Smoking History: Current every day smoker Years of Tobacco Use: 40 Have you smoked in the past 12 months: Yes Number of Cigarettes Smoked Daily: 8 If you are a former smoker, when did you quit?: 06/20/16 Cigars Per Day: 0 Information on smoking cessation initiated: No 'Breaking Loose' booklet given: 07/04/16 Hx Alcohol Use: No Drug/Substance Use Hx: No Substance Use Type: None Hx Substance Use Treatment: No Review of Systems - Review of Systems Able to Perform ROS?: Yes Constitutional: Yes: Loss of Appetite Respiratory: Yes: Cough, Shortness of Breath. No: Productive cough Cardiac (ROS): No: Chest Pain ABD/GI: Yes: Constipated, Nausea. No: Abdominal Distended, Diarrhea, Vomiting : No: Dysuria, Frequency *Physical Exam - Vital Signs Last Vital Signs Temp Pulse Resp BP Pulse Ox 97.4 F L 62 18 150/71 100 12/29/17 12:20 12/29/17 12:20 12/29/17 12:20 12/29/17 12:20 12/29/17 12:20 - Physical Exam General Appearance: Yes: Appropriately Dressed. No: Apparent Distress HEENT: positive: EOMI Respiratory/Chest: positive: Other (Crackles b/l) Cardiovascular: positive: Regular Rhythm, Regular Rate, S1, S2 Vascular Pulses: Dorsalis-Pedis (R): 0, Doralis-Pedis (L): 0 Gastrointestinal/Abdominal: positive: Normal Bowel Sounds, Other (Firm in lower quadrants) Extremity: negative: Tender, Pedal Edema, Swelling, Calf Tenderness, Erythema Neurologic: positive: Fully Oriented, Alert, Normal Mood/Affect, Normal Response Heart Score/ECG Review - ECG Impressions Comment:: Ventricular-paced w/PVCs. Rate 67 bpm. QTc 568 ms. No changes compared to previous EKG. ED Treatment Course - LABORATORY CBC & Chemistry Diagram: 12/30/17 05:30 12/30/17 05:30 - RADIOLOGY Radiology Studies Ordered: Category Date Time Status CXRPORT [CHEST X-RAY PORTABLE*] [RAD] Stat Radiology 12/29/17 12:45 Ordered Medical Decision Making - Medical Decision Making Will check CBC w/diff, CMP, Cardiac profile, UA, BCx, EKG, CXR. Pt with crackles and hx of chills and worsening generalized weakness and SOB - will workup for CHF exacerbation vs PNA at this time. Unlikely to be PE as vitals are not indicative of PE and no calf tenderness or swelling/erythema of LE. Will give lasix 40 mg IV x1 at this time. 12/29/17 14:41 CXR appears to have some fullness in hilum. CBC, BMP 12/29/17 12:57 12/29/17 12:57 BNP 65063. TSH 0.16. Pt states he feels slightly better after lasix. 12/29/17 14:[address] Morales regarding pt. Pt appears to have CHF exacerbation and with concern for worsening generalized weakness over the last week will place pt in Tele/Obs at this time. *DC/Admit/Observation/Transfer Diagnosis at time of Disposition: CHF (congestive heart failure) - Discharge Dispostion Disposition: HOME Condition at time of disposition: Good - Prescriptions - Referrals - Patient Instructions - Post Discharge Activity
[2017-12-29] MEDS ORDERED: FUROSEMIDE 40 MG/4 ML INJECTABLE VIAL IVPUSH ONE (13:07)
[2017-12-29 13:11] LABS: BASO % 0.7 % (0-2.0); EOS % 2.1 % (0-4.5); HEMATOCRIT 26.3 % (35.4-49); HEMOGLOBIN 8.9 GM/dL (11.7-16.9); LYMPH % 7.3 % (8-40); MCH 31.9 pg (25.7-33.7); MCHC 33.9 g/dl (32.0-35.9); MEAN CELL VOLUME 94.1 fl (80-96); MEAN PLT VOLUME 7.9 fl (7.5-11.1); MONO % 8.5 % (3.8-10.2); NEUT % 81.4 % (42.8-82.8); PLATELET COUNT 216 K/MM3 (134-434); RBC 2.79 M/mm3 (4.00-5.60); RDW 16.8 % (11.9-15.9)
--- NOTE | 2017-12-29 13:17 | PDOC ---
Attending Attestation - Resident Resident Name: Billy Rousseau - ED Attending Attestation I have performed the following: I have examined & evaluated the patient, The case was reviewed & discussed with the resident, I agree w/resident's findings & plan - HPI HPI: 12/29/17 13:13 62-year-old male with history of COPD on home oxygen, systolic CHF with recent admission about one month ago for volume overload requiring diuresis presents now with 1 week of progressive shortness of breath. Patient notes he was able to walk the hallways upstairs with physical therapy prior to discharge, now has dyspnea with just 10 feet of exertion. Denies any chest pain or pressure, reports his baseline cough, reports some chills but no measured fevers. Patient' s Lasix dose was initially increased at discharge and then decreased, but he is unsure of the timeline. - Physicial Exam PE: 12/29/17 13:14 Vitals as noted, afebrile Generally well-appearing and alert seated in stretcher, slight tachypnea Heart is regular with frequent immature beats, 3/6 systolic ejection murmur Crackles to mid lung field bilaterally, slightly decreased breath sounds at both bases. No wheezing was appreciated no edema or calf tenderness - Medical Decision Making 12/29/17 13:15 62-year-old male with history of systolic CHF presents with progressive dyspnea on exertion and resting shortness of breath over the last week, findings consistent with pulmonary edema and volume overload on exam. Presentation seems most consistent with CHF exacerbation, rule out infectious process such as pneumonia, less likely COPD or PE. Labs, urinalysis EKG, chest x-ray IV diuresis Admission given significant increase in O2 requirement and decreased exertional tolerance Heart Score/ECG Review #1 Compared to previous ECG there are: No significant change 12/29/17 13:15 v-paced with PVCs. no secondary signs of acute ischemic change.
[2017-12-29 14:08] LABS: ALK PHOS 84 U/L (45-117); ANION GAP 7 MMOL/L (8-16); BILIRUBIN,TOTAL 0.5 mg/dL (0.2-1); BLOOD UREA NITROGEN 51 mg/dL (7-18); CALCIUM 8.3 mg/dL (8.5-10.1); CHLORIDE 104 mmol/L (98-107); CO2 27 mmol/L (21-32); CREATININE 2.3 mg/dL (0.55-1.3); GLUCOSE,RANDOM 99 mg/dL (74-106); MAGNESIUM 1.9 mg/dL (1.8-2.4); N-TERMINAL BNP 18797.8 pg/ml (5-125); PHOSPHOROUS 3.5 mg/dL (2.5-4.9); POTASSIUM 4.1 mmol/L (3.5-5.1); SGOT/AST 13 U/L (15-37); SGPT/ALT 9 U/L (13-61); SODIUM 138 mmol/L (136-145); TOT PROT 6.4 g/dl (6.4-8.2)
--- NOTE | 2017-12-29 14:47 | HP ---
Admitting History and Physical - Primary Care Physician PCP: Kanu Truong - Admission Chief Complaint: sob History of Present Illness: is 62 year old male PMH of COPD (O2 dependent), HTN, DM2, CKD, CAD s /p CABG and PPM, CHF bioprosthetic AVR, recent hospitalization from 11/13- for CHF/COPD exacerbation presents today with complaints of lower left lateral rib pain over the last few days(unable to recall onset), with pain also on the right side now. Pt reports worsening trouble breathing due to the rib pain. Pt has been using more O2 at home without relief. Pt reports worsening sob today which prompted him to come in. Pt and family member denies any fall/ trauma at home. Pt reports noticing mild bruising on the rib area this week but has resolved. He reports constipation, last BM 1 week ago. Denies any chest pain , chest discomfort, fever/chills, increased Na intake, weight gain, n/v/d, rash , cough. History Source: Patient Limitations to Obtaining History: Poor Historian - Past Medical History Cardiovascular: Yes: AFIB (after CABG briefly; not on AC), CAD, CHF, HTN, Mitral Insufficiency Pulmonary: Yes: COPD, O2 Dependent Heme/Onc: Yes: Anemia Endocrine: Yes: Diabetes Mellitus - Past Surgical History Past Surgical History: Yes: AICD, CABG - Smoking History Smoking history: Former smoker Have you smoked in the past 12 months: Yes Aproximately how many cigarettes per day: 8 If you are a former smoker, when did you quit?: 06/20/16 - Alcohol/Substance Use Hx Alcohol Use: No History of Substance Use: reports: None - Social History Usual Living Arrangement: Yes: With Child ADL: Independent History of Recent Travel: No Home Medications - Allergies Allergies/Adverse Reactions: Allergies Allergy/AdvReac Type Severity Reaction Status Date / Time Fish Containing Products Allergy Verified 12/29/17 12:27 codeine AdvReac Intermediate Vomiting Verified 12/29/17 12:27 gabapentin AdvReac Intermediate dizzy Verified 12/29/17 12:27 - Home Medications Home Medications: Ambulatory Orders Amlodipine Besylate [Norvasc -] 5 mg PO DAILY 06/18/15 Aspirin [Aspirin EC] 81 mg PO DAILY 06/18/15 Cilostazol 50 mg PO DAILY 06/18/15 Clopidogrel Bisulfate [Clopidogrel] 75 mg PO DAILY 06/18/15 Simvastatin [Zocor -] 20 mg PO HS 06/18/15 Zolpidem Tartrate [Ambien] 10 mg PO HS 06/18/15 Carvedilol [Coreg -] 25 mg PO BID #60 tablet 06/20/15 Lidocaine 5% Patch [Lidoderm -] 1 patch TP DAILY #30 patch 12/08/16 Psyllium [Metamucil (Sugar-Free) -] 5.85 gm PO BID #1 bottle 06/02/17 Docusate Sodium [Colace -] 100 mg PO TID #90 capsule 09/22/17 Ferrous Sulfate [Feosol] 325 mg PO DAILY 09/22/17 Furosemide [Lasix -] 80 mg PO DAILY 7 Days #7 tablet 11/21/17 Cholecalciferol (Vitamin D3) [Vitamin D3] 2,000 unit PO DAILY #30 capsule Diclofenac Sodium [Voltaren] 2 gm TP TID PRN #3 tube 12/25/17 Lactulose (Oral Use) [Cephulac -] 20 gm PO BID #1 bottle 12/25/17 Oxycodone HCl/Acetaminophen [Percocet 10-325 mg Tablet] 1 each PO QID PRN #120 tablet MDD 4 12/25/17 Family Disease History - Family Disease History Family Disease History: Heart Disease: Father (etoh), Mother (, cva), Other: Brother (alive - Ramírez - hx etoh), Sister (five - alive - no medical problems), Son (two adults - no problems) Review of Systems Findings/Remarks: as per hpi Physical Examination Vital Signs: Vital Signs Temperature 97.4 F L 12/29/17 12:20 Pulse Rate 62 12/29/17 12:20 Respiratory Rate 18 12/29/17 12:20 Blood Pressure 150/71 12/29/17 12:20 O2 Sat by Pulse Oximetry (%) 98 12/29/17 12:20 Constitutional: Yes: Well Nourished, No Distress, Calm Cardiovascular: Yes: Regular Rate and Rhythm, Other (+ttp on left lower rib area ) Respiratory: Yes: Regular, Diminished, On Nasal O2, Rales (bibasilar), Rhonchi ( scattered). No: Accessory Muscle Use, Cough, Tachypnea, Wheezes Gastrointestinal: Yes: WNL, Normal Bowel Sounds, Soft. No: Distention, Tenderness Renal/: Yes: WNL Edema: No Neurological: Yes: WNL, Alert, Oriented Psychiatric: Yes: WNL, Alert, Oriented Labs: CBC, BMP 12/29/17 12:57 12/29/17 12:57 Assessment/Plan (1) Rib pain on left side Assessment/Plan: moderate +TTP, mild pain on lateral right side also Code(s): R07.81 - PLEURODYNIA (2) Shortness of breath Assessment/Plan: worse w/ deep breaths appears musculoskeletal in nature chest CT ordered -r/o rib fx/trauma, PNA/effusion continue O2 via nc ABG ordered pulm/cardiology consulted as above Code(s): R06.02 - SHORTNESS OF BREATH (3) CHF (congestive heart failure) Assessment/Plan: s/p icd, chronic dry weight 192-196 does not seem to be in acute exacerbation as above Code(s): I50.9 - HEART FAILURE, UNSPECIFIED (4) COPD (chronic obstructive pulmonary disease) Assessment/Plan: on O2 dependent at home satting high 90s on 2L O2 via [place] Code(s): J44.9 - CHRONIC OBSTRUCTIVE PULMONARY DISEASE, UNSPECIFIED Qualifiers: COPD type: COPD with acute exacerbation Qualified Code(s): J44.1 - Chronic obstructive pulmonary disease with (acute) exacerbation (5) Chronic kidney disease (CKD) Assessment/Plan: at baseline monitor Code(s): N18.9 - CHRONIC KIDNEY DISEASE, UNSPECIFIED Qualifiers: Chronic kidney disease stage: stage 3 (moderate) Qualified Code(s): N18.3 - Chronic kidney disease, stage 3 (moderate) (6) CAD (coronary artery disease) Assessment/Plan: s/p cabgx 3 continue asa/statin/plavix Code(s): I25.10 - ATHSCL HEART DISEASE OF [place] CORONARY ARTERY W/O ANG PCTRS Qualifiers: [place] vs. transplanted heart: [place] heart Associated angina: without angina (7) Diabetes Assessment/Plan: chronic bgm insulin sliding scale monitor Code(s): E11.9 - TYPE 2 DIABETES MELLITUS WITHOUT COMPLICATIONS Qualifiers: Diabetes mellitus type: type 2 Diabetes mellitus intermediate card tender insulin use: with long-term use Diabetes mellitus complication status: with kidney complications Diabetes mellitus complication detail: with chronic kidney disease Chronic kidney disease stage: stage 3 (moderate) Qualified Code(s): E11.22 - Type 2 diabetes mellitus with diabetic chronic kidney disease; N18.3 - Chronic kidney disease, stage 3 (moderate); Z79.4 - care home (current) use of insulin (8) HTN (hypertension) Assessment/Plan: controlled continue amlodipine, carvedilol monitor Code(s): I10 - ESSENTIAL (PRIMARY) HYPERTENSION Qualifiers: Hypertension type: essential hypertension Qualified Code(s): I10 - Essential (primary) hypertension (9) Constipation Assessment/Plan: No bm x 1 week colace/miralax/lactulose monitor Code(s): K59.00 - CONSTIPATION, UNSPECIFIED (10) Osteoarthritis, multiple sites Assessment/Plan: stable Code(s): M15.9 - POLYOSTEOARTHRITIS, UNSPECIFIED Qualifiers: Osteoarthritis type: primary Qualified Code(s): M15.0 - Primary generalized (osteo)arthritis (11) Low back pain Assessment/Plan: chronic PT analgesics prn Code(s): M54.5 - LOW BACK PAIN Qualifiers: Chronicity: chronic (12) Anemia Assessment/Plan: chronic hg/hct stable monitor Code(s): D64.9 - ANEMIA, UNSPECIFIED Qualifiers: Anemia type: due to chronic kidney disease Chronic kidney disease stage: stage 3 (moderate) Qualified Code(s): N18.3 - Chronic kidney disease, stage 3 (moderate); D63.1 - Anemia in chronic kidney disease (13) Peripheral vascular disease Assessment/Plan: pad, stable continue statin/plavix/asa/cilostazol Code(s): I73.9 - PERIPHERAL VASCULAR DISEASE, UNSPECIFIED (14) Low TSH level Assessment/Plan: free t3/t4 ordered monitor Code(s): R79.89 - OTHER SPECIFIED ABNORMAL FINDINGS OF BLOOD CHEMISTRY
[2017-12-29 15:29] LABS: URINE APPEARANCE CLEAR; URINE BILIRUBIN NEGATIVE (<2.0 mg/dL); URINE COLOR LTYELLOW; URINE GLUCOSE (UA) NEGATIVE (NEGATIVE); URINE KETONE NEGATIVE (NEGATIVE); URINE LEUK ESTERASE NEGATIVE (NEGATIVE); URINE NITRITE NEGATIVE (NEGATIVE); URINE UROBILINOGEN NEGATIVE mg/dL (0.2-1.0)
[2017-12-29 15:31] LABS: URINE PROTEIN 2+ (NEGATIVE)
[2017-12-29 15:40] LABS: URINE HYALINE CAST 8 /lpf; URINE MUCUS RARE
[2017-12-29] MEDS ORDERED: ACETAMINOPHEN 500 MG TABLET (FP) PO PRN (15:43)
[2017-12-29] MEDS ORDERED: ACETAMINOPHEN 325 MG TABLET (FP) PO PRN (15:44)
--- NOTE | 2017-12-29 16:38 | EKG ---
Test Reason : Blood Pressure : / mmHG Vent. Rate : 067 BPM Atrial Rate : 258 BPM P-R Int : 000 ms QRS Dur : 208 ms QT Int : 538 ms P-R-T Axes : 000 -83 090 degrees QTc Int : 568 ms Ventricular-paced rhythm WITH PREMATURE VENTRICULAR OR ABERRANTLY CONDUCTED COMPLEXES ATRIAL FLUTTER WHEN COMPARED WITH ECG OF 13-NOV-2017 15:29, VENT. RATE HAS INCREASED BY 7 BPM Confirmed by MD Jaqueline, Jeffery ([id number]) on 12/29/2017 4:38:28 PM Referred By: Confirmed By:Jeffery Parsons MD
[2017-12-29] MEDS ORDERED: FUROSEMIDE 40 MG/4 ML INJECTABLE VIAL ONE (16:42)
[2017-12-29] MEDS ORDERED: AZITHROMYCIN 500 MG TABLET PO SCH (16:45)
--- NOTE | 2017-12-29 16:47 | PN ---
Progress Note (short form) - Note Progress Note: PULMONARY CONSULTATION DICTATED 12/29/17 IMP ACUTE ON CHRONIC HYPOXEMIC RESPIRATORY FAILURE ACUTE ON CHRONIC CHF ADVANCED COPD O2 DEPENDENT ASHD S/P CABG S/P ICD SEVERE PULMONARY HTN BACK PAIN AFIB CKD DM S/P AVR NEUROPATHY TOBACCO ABUSE PLAN IV LASIX O2 INHALED BRONCHODILATORS DAILY WT F/U CHEST X-RAYS ANALGESICS SMOKING CESSATION COUNSELED DR BATISTA Problem List - Problems (1) Acute on chronic respiratory failure with hypoxemia Code(s): J96.21 - ACUTE AND CHRONIC RESPIRATORY FAILURE WITH HYPOXIA (2) CHF (congestive heart failure) Code(s): I50.9 - HEART FAILURE, UNSPECIFIED (3) Acute exacerbation of CHF (congestive heart failure) Code(s): I50.9 - HEART FAILURE, UNSPECIFIED Qualifiers: Heart failure type: systolic Qualified Code(s): I50.23 - Acute on chronic systolic (congestive) heart failure (4) Afib Code(s): I48.91 - UNSPECIFIED ATRIAL FIBRILLATION Qualifiers: Atrial fibrillation type: chronic Qualified Code(s): I48.2 - Chronic atrial fibrillation (5) S/P AVR Code(s): Z95.2 - PRESENCE OF PROSTHETIC HEART VALVE (6) Shortness of breath Code(s): R06.02 - SHORTNESS OF BREATH (7) CAD (coronary artery disease) Code(s): I25.10 - ATHSCL HEART DISEASE OF [place] CORONARY ARTERY W/O ANG PCTRS Qualifiers: [place] vs. transplanted heart: [place] heart Associated angina: without angina (8) COPD (chronic obstructive pulmonary disease) Code(s): J44.9 - CHRONIC OBSTRUCTIVE PULMONARY DISEASE, UNSPECIFIED Qualifiers: COPD type: COPD with acute exacerbation Qualified Code(s): J44.1 - Chronic obstructive pulmonary disease with (acute) exacerbation (9) Diabetes Code(s): E11.9 - TYPE 2 DIABETES MELLITUS WITHOUT COMPLICATIONS Qualifiers: Diabetes mellitus type: type 2 Diabetes mellitus half-way insulin use: with buttermaker continuous churn use Diabetes mellitus complication status: with kidney complications Diabetes mellitus complication detail: with chronic kidney disease Chronic kidney disease stage: stage 3 (moderate) Qualified Code(s): E11.22 - Type 2 diabetes mellitus with diabetic chronic kidney disease; N18.3 - Chronic kidney disease, stage 3 (moderate); Z79.4 - snf (current) use of insulin (10) HTN (hypertension) Code(s): I10 - ESSENTIAL (PRIMARY) HYPERTENSION Qualifiers: Hypertension type: essential hypertension Qualified Code(s): I10 - Essential (primary) hypertension (11) Nicotine dependence Code(s): F17.200 - NICOTINE DEPENDENCE, UNSPECIFIED, UNCOMPLICATED (12) Pleural effusion Code(s): J90 - PLEURAL EFFUSION, NOT ELSEWHERE CLASSIFIED (13) Pulmonary hypertension Code(s): I27.2 - OTHER SECONDARY PULMONARY HYPERTENSION * DO NOT USE * (14) S/P CABG x 3 Code(s): Z95.1 - PRESENCE OF AORTOCORONARY BYPASS GRAFT (16) Acute on chronic diastolic CHF (congestive heart failure) Code(s): I50.33 - ACUTE ON CHRONIC DIASTOLIC (CONGESTIVE) HEART FAILURE (17) Tobacco abuse Code(s): Z72.0 - TOBACCO USE (18) Tobacco abuse counseling Code(s): Z71.6 - TOBACCO ABUSE COUNSELING (19) Acute on chronic systolic (congestive) heart failure Code(s): I50.23 - ACUTE ON CHRONIC SYSTOLIC (CONGESTIVE) HEART FAILURE
--- NOTE | 2017-12-29 16:49 | CON.CARD ---
Cardiology Consult (text) - Consultation Consultation Note: cc: sob, back pain hpi: 62 m hx copd, cabgx3 2012, bio avr 2012, pad s/p b/l sfa occlusions, syst chf s/p medtronic icd, htn, hld, a-tach, here with sob. Had been feeling well until past few days when he noticed pain in left lower back. This pain was worse with deep breaths so he also felt sob. No cp, palps, dizzy, loc, pnd, orthopnea, le edema. Sees me for cardiology. pmh: per hpi psh: cabg, avr, icd social: +tob fam: no premature cad ros: per hpi; no nvd, fever, wt loss, rash, hematuria, gib, nasal congestion, shel[place] , vision changes meds: Home Medications Medication Instructions Recorded Amlodipine Besylate [Norvasc -] 5 mg PO DAILY 06/18/15 Aspirin [Aspirin EC] 81 mg PO DAILY 06/18/15 Cilostazol 50 mg PO DAILY 06/18/15 Clopidogrel Bisulfate [Clopidogrel] 75 mg PO DAILY 06/18/15 Simvastatin [Zocor -] 20 mg PO HS 06/18/15 Zolpidem Tartrate [Ambien] 10 mg PO HS 06/18/15 Carvedilol [Coreg -] 25 mg PO BID #60 tablet 06/20/15 Lidocaine 5% Patch [Lidoderm -] 1 patch TP DAILY #30 patch 12/08/16 Psyllium [Metamucil (Sugar-Free) -] 5.85 gm PO BID #1 bottle 06/02/17 Docusate Sodium [Colace -] 100 mg PO TID #90 capsule 09/22/17 Ferrous Sulfate [Feosol] 325 mg PO DAILY 09/22/17 Furosemide [Lasix -] 80 mg PO DAILY 7 Days #7 tablet 11/21/17 Cholecalciferol (Vitamin D3) 2,000 unit PO DAILY #30 capsule 12/25/17 [Vitamin D3] Diclofenac Sodium [Voltaren] 2 gm TP TID PRN #3 tube 12/25/17 Lactulose (Oral Use) [Cephulac -] 20 gm PO BID #1 bottle 12/25/17 Oxycodone HCl/Acetaminophen 1 each PO QID PRN #120 tablet MDD 4 12/25/17 [Percocet 10-325 mg Tablet] pe: Vital Signs Period Temp Pulse Resp BP Sys/El Pulse Ox Last 24 Hr 97.4 F 62-62 18 150/71 98-100 nad no jvd rrr s1s2 no mrg cta bl nl eff aaox3 no le e/c/c abd nt nd pos bs no jaundice diaphoresis +dp pt no carotid bruits Laboratory Last Values WBC 10.0 K/mm3 (4.0-10.0) 12/29/17 12:57 RBC 2.79 M/mm3 (4.00-5.60) L 12/29/17 12:57 Hgb 8.9 GM/dL (11.7-16.9) L 12/29/17 12:57 Hct 26.3 % (35.4-49) L D 12/29/17 12:57 MCV 94.1 fl (80-96) 12/29/17 12:57 MCH 31.9 pg (25.7-33.7) 12/29/17 12:57 MCHC 33.9 g/dl (32.0-35.9) 12/29/17 12:57 RDW 16.8 % (11.9-15.9) H 12/29/17 12:57 Plt Count 216 K/MM3 (134-434) D 12/29/17 12:57 MPV 7.9 fl (7.5-11.1) D 12/29/17 12:57 Absolute Neuts (auto) 8.2 K/mm3 (1.5-8.0) H 12/29/17 12:57 Neutrophils % 81.4 % (42.8-82.8) 12/29/17 12:57 Lymphocytes % 7.3 % (8-40) L 12/29/17 12:57 Monocytes % 8.5 % (3.8-10.2) 12/29/17 12:57 Eosinophils % 2.1 % (0-4.5) D 12/29/17 12:57 Basophils % 0.7 % (0-2.0) 12/29/17 12:57 Nucleated RBC % 0 % (0-0) 12/29/17 12:57 Sodium 138 mmol/L (136-145) 12/29/17 12:57 Potassium 4.1 mmol/L (3.5-5.1) 12/29/17 12:57 Chloride 104 mmol/L (98-107) 12/29/17 12:57 Carbon Dioxide 27 mmol/L (21-32) 12/29/17 12:57 Anion Gap 7 MMOL/L (8-16) L 12/29/17 12:57 BUN 51 mg/dL (7-18) H 12/29/17 12:57 Creatinine 2.3 mg/dL (0.55-1.3) H 12/29/17 12:57 Creat Clearance w eGFR 28.96 (>60) 12/29/17 12:57 Random Glucose 99 mg/dL (74-106) 12/29/17 12:57 Calcium 8.3 mg/dL (8.5-10.1) L 12/29/17 12:57 Phosphorus 3.5 mg/dL (2.5-4.9) 12/29/17 12:57 Magnesium 1.9 mg/dL (1.8-2.4) 12/29/17 12:57 Total Bilirubin 0.5 mg/dL (0.2-1) 12/29/17 12:57 AST 13 U/L (15-37) L 12/29/17 12:57 ALT 9 U/L (13-61) L 12/29/17 12:57 Alkaline Phosphatase 84 U/L (45-117) 12/29/17 12:57 Creatine Kinase 29 IU/L (26-308) 12/29/17 12:57 Troponin I 0.05 ng/ml (0.00-0.05) 12/29/17 12:57 B-Natriuretic Peptide 89191.8 pg/ml (5-125) H 12/29/17 12:57 Total Protein 6.4 g/dl (6.4-8.2) 12/29/17 12:57 Albumin 3.0 g/dl (3.4-5.0) L 12/29/17 12:57 TSH 0.16 uIU/ml (0.358-3.74) L D 12/29/17 12:57 Urine Color Ltyellow 12/29/17 15:00 Urine Appearance Clear 12/29/17 15:00 Urine pH 5.0 (5.0-8.0) 12/29/17 15:00 Ur Specific Sargeant 1.010 (1.001-1.035) 12/29/17 15:00 Urine Protein 2+ (NEGATIVE) H 12/29/17 15:00 Urine Glucose (UA) Negative (NEGATIVE) 12/29/17 15:00 Urine Ketones Negative (NEGATIVE) 12/29/17 15:00 Urine Blood Negative (NEGATIVE) 12/29/17 15:00 Urine Nitrite Negative (NEGATIVE) 12/29/17 15:00 Urine Bilirubin Negative (<2.0 mg/dL) 12/29/17 15:00 Urine Urobilinogen Negative mg/dL (0.2-1.0) 12/29/17 15:00 Ur Leukocyte Esterase Negative (NEGATIVE) 12/29/17 15:00 Urine WBC (Auto) None /hpf (3-5) 12/29/17 15:00 Urine RBC (Auto) 1 /hpf (0-3) 12/29/17 15:00 Hyaline Casts 8 /lpf 12/29/17 15:00 Urine Mucus Rare 12/29/17 15:00 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 ct chest: left pna echo 06/2015: mild lve, mod-sev dec lvef, mod lae, nl rv size, mild dec rv fcn, mild-mod mr, mild tr, nl avr fcn, rvsp 30-40 echo 06/2016: sev dec lvef, global hk, rv tds, trinity, mod-sev mr, mod tr, rvsp 50- 60 mibi 09/2014: large inf scar, mod anteroapical ischemia, lvef 25% mibi 06/2016 (pers): non-diagnostic STs; large area inferior/inferolateral/ lateral scar; no ischemia; severe LV cavity dilation; global HK with akinesis of inferior/inferolat/lateral allan; EF 16% a/p: 62 m hx copd, cabgx3 2012, bio avr 2012, pad s/p b/l sfa occlusions, syst chf s/p medtronic icd, htn, hld, a-tach, here with back pain, sob. back pain, sob: -no signs of chf or acs -back pain seems MSK or possibly related to PNA -sob 2/2 back pain vs pna chronic systolic chf: -stable vol status, wt at baseline (mid 190s lbs) -cont home lasix, pt confirms he was taking 40 qd with additional 40 if wt up -cont bb. deidra stopped in past 2/2 hyperkalemia. copd: -seems stable cad/hx of CABG 2012 -no recent angina/ischemia -present sx's not suggestive for angina -cont prior cad med regimen: dapt, statin, bb, ccb bio avr: -nl fcn on echo 06/20 mitral regurgitation: -likely functional MR, mild-mod on echo 06/19, then "mod-severe" when here 06/20 with suspected acute chf and pulm pressures up (though at risk for overestimation of MR severity on that echo report) -valve morphology not described (tethered leaflets?) -no murmur on exam -reassess MR severity on echo as outpt CKD: -stable here pad: -stable, no claudication, cont current cardiac meds s/p icd: -no shocks -routine outpt monitoring htn: -cont home meds hld: -cont statin atach: -minimal episodes seen in past on icd checks -cont bb anemia: -chronic, stable counts here vs baseline -per pmd no need for tele, cardiac villegas stable
[2017-12-29] MEDS ORDERED: AMOX TR/POT CLAV 875MG/125MG TABLETS (FP) PO SCH (17:30)
--- NOTE | 2017-12-29 18:00 | CONS ---
DATE OF CONSULTATION: 12/29/2017 PULMONARY CONSULTATION REFERRING PHYSICIAN: Dr. Truong Patient is a 62-year-old white male known to me from previous hospitalization with advanced COPD with chronic hypoxemic respiratory failure on O2, home O2, hypertension, diabetes, chronic kidney disease, ASHD, status post CABG, status post permanent pacemaker, systolic CHF, status post bioprosthetic AVR, longstanding history of tobacco use, currently still smoking, atrial fibrillation, chronic left pleural effusion with left basilar atelectasis, neuropathy, diabetes, hypercholesterolemia, also status post defibrillator admitted to [facility] earlier today with complaint of increasing shortness of breath, dyspnea on exertion, and back pain for approximately 2 days. Patient states he was doing relatively well until a few days ago when he started developing chest pain. He described the pain as left-sided posteriorly increasing with movement. He also had a cough which was nonproductive. His symptoms continue to worsen with progressive back pain as well as increasing shortness of breath. Denied any fevers or chills. Did have a cough but nonproductive. Denies any nausea, vomiting, diaphoresis. Denies any fevers. Patient also states he has been using 7 tanks of oxygen over the past couple days or so. He denies any recent travel. There is no history of DVT or PE in the past. There is no history of occupational exposure to chemicals or fumes. He states that he sleeps on 4-5 pillows secondary to orthopnea. PAST MEDICAL HISTORY: Again ASHD, status post CABG, status bioprosthetic AVR, systolic congestive heart failure, status post permanent pacemaker as well as ICD, advanced COPD on home O2 with chronic hypoxemic respiratory failure, diabetes, peripheral neuropathy, chronic left pleural effusion, hypercholesterolemia. REVIEW OF SYSTEMS: Positive for orthopnea. Positive dyspnea. Positive cough. Positive back pain. No fever. No chills. No hemoptysis. No abdominal pain. No lower extremity edema. MEDICATIONS: Medications prior to admission include amlodipine, aspirin, Symbicort, Cilostazol, Plavix, lisinopril, Zocor, Ambien, Coreg, Lidoderm, Colace, Feosol, Lasix, vitamin D3, Voltaren, lactulose, and Percocet. CURRENT MEDICATIONS: Include Lasix, Plavix, Pletal, Roxicodone, Ecotrin, NovoLog, Lipitor, Norvasc, Colace, Coreg, and Symbicort. PHYSICAL EXAMINATION: General: Patient is a well-developed, well-nourished male, awake, alert, appears comfortable, in no acute distress. Vital Signs: He is currently afebrile, heart rate is 62, blood pressure 150/71, O2 saturation is 98% on 2 L. HEENT: Exam is normocephalic, atraumatic. Neck: Supple. Heart: Irregular, S1, S2. Chest: Bilateral crackles one-third up. Abdomen: Soft. Bowel sounds positive. Extremities: No cyanosis or edema. LABORATORIES: WBC is 10, hemoglobin 8.9, hematocrit 26.3 with a platelet count 216,000. Blood gas not done. Chemistries BUN 51, creatinine 2.3. BNP 18,797. CHEST X-RAY: Patchy consolidation left base, mild basilar congestion. CHEST CT: Unofficially reveals no significant change, left basilar consolidation as well as effusion. IMPRESSION: Dyspnea on acute on chronic hypoxemic respiratory failure secondary to: 1. Mild decompensated acute on chronic congestive heart failure. 2. Chronic obstructive pulmonary disease. 3. Back pain, likely musculoskeletal. 4. Arteriosclerotic heart disease status post coronary artery bypass graft status post automatic implantable cardioverter-defibrillator status post permanent pacemaker. 5. Atrial fibrillation. 6. Status post bioprosthetic aortic valve replacement. 7. Diabetes. 8. Peripheral neuropathy. 9. Chronic kidney disease. PLAN: Continue the supplemental O2. Inhaled bronchodilators. Daily Lasix. Daily weight. Followup chest x-ray. Strict I's and O's. Analgesics. Monitor renal function. Electrolytes. MINDY BATISTA M.D. [id number]
[2017-12-29] MEDS: INSULIN SLIDING SCALE (NOVOLOG) 1 VIAL SQ SCH ×2 (19:00→22:55)
[2017-12-29] MEDS ORDERED: ZOLPIDEM TARTRATE 5 MG TABLET PO PRN (22:00)
[2017-12-29] MEDS ORDERED: ATORVASTATIN CA 10 MG TABLET (FP) PO SCH (22:00)
[2017-12-29] MEDS: oxyCODONE HCL 5 MG TABLET PO PRN (22:55)
[2017-12-29] MEDS: CARVEDILOL 25 MG TABLET (FP) PO SCH (22:55)
[2017-12-29] MEDS: DOCUSATE SODIUM 100 MG CAPSULE (FP) PO SCH (22:55)
[2017-12-30] MEDS: oxyCODONE HCL 5 MG TABLET PO PRN ×2 (05:26→12:12)
[2017-12-30] MEDS: DOCUSATE SODIUM 100 MG CAPSULE (FP) PO SCH ×2 (05:26→13:30)
[2017-12-30] MEDS: INSULIN SLIDING SCALE (NOVOLOG) 1 VIAL SQ SCH ×2 (06:02→12:30)
[2017-12-30 06:24] VITALS: BMI 27.3
[2017-12-30 06:49] LABS: BASO % 0.9 % (0-2.0); EOS % 2.7 % (0-4.5); HEMATOCRIT 26.7 % (35.4-49); MCH 31.8 pg (25.7-33.7); MCHC 33.7 g/dl (32.0-35.9); MEAN CELL VOLUME 94.2 fl (80-96); MEAN PLT VOLUME 7.7 fl (7.5-11.1); MONO % 9.1 % (3.8-10.2); NEUT % 79.3 % (42.8-82.8); PLATELET COUNT 197 K/MM3 (134-434); RBC 2.83 M/mm3 (4.00-5.60); RDW 16.8 % (11.9-15.9); WHITE BLOOD COUNT 9.7 K/mm3 (4.0-10.0)
[2017-12-30 06:55] LABS: ALK PHOS 77 U/L (45-117); ANION GAP 7 MMOL/L (8-16); BILIRUBIN,TOTAL 0.6 mg/dL (0.2-1); BLOOD UREA NITROGEN 49 mg/dL (7-18); CALCIUM 8.5 mg/dL (8.5-10.1); CHLORIDE 102 mmol/L (98-107); CO2 29 mmol/L (21-32); CREATININE 2.4 mg/dL (0.55-1.3); GLUCOSE,RANDOM 87 mg/dL (74-106); MAGNESIUM 1.9 mg/dL (1.8-2.4); PHOSPHOROUS 3.9 mg/dL (2.5-4.9); POTASSIUM 4.2 mmol/L (3.5-5.1); SGOT/AST 14 U/L (15-37); SGPT/ALT 10 U/L (13-61); SODIUM 137 mmol/L (136-145); TOT PROT 6.4 g/dl (6.4-8.2)
[2017-12-30] MEDS ORDERED: PT OWN MED DRAWER 7, Y5N ONE ×2 (08:57→12:59)
[2017-12-30] MEDS: CARVEDILOL 25 MG TABLET (FP) PO SCH (09:29)
[2017-12-30] MEDS ORDERED: CILOSTAZOL 50 MG TABLET (FP) PO SCH (10:00)
[2017-12-30] MEDS ORDERED: FUROSEMIDE 40 MG TABLET (FP) PO SCH ×2 (10:00)
[2017-12-30] MEDS ORDERED: ASPIRIN COATED 81 MG TABLET.EC PO SCH (10:00)
[2017-12-30] MEDS ORDERED: CLOPIDOGREL BISULFATE 75 MG TABLET (FP) PO SCH (10:00)
[2017-12-30] MEDS ORDERED: BUDESONIDE/FORMETEROL FUMARATE 160/4.5 mcg INHALER IH SCH (10:00)
[2017-12-30] MEDS ORDERED: amLODIPine BESYLATE 5 MG TABLET (FP) PO SCH (10:00)
[2017-12-30] MEDS ORDERED: CYCLOBENZAPRINE HCL 5 MG TABLET PO SCH (10:30)
--- NOTE | 2017-12-30 10:42 | PN ---
Progress Note (short form) - Note Progress Note: s: complains of back pain. no chest pain, sob, edema, palps Current Medications Acetaminophen (Tylenol -) 325 mg PO Q6H PRN PRN Reason: PAIN 6-10 Last Admin: 12/30/17 05:28 Dose: 325 mg Amlodipine Besylate (Norvasc -) 5 mg PO DAILY [facility] Last Admin: 12/30/17 09:29 Dose: 5 mg Aspirin (Ecotrin -) 81 mg PO DAILY [facility] Last Admin: 12/30/17 09:29 Dose: 81 mg Atorvastatin Calcium (Lipitor -) 10 mg PO HS [facility] Last Admin: 12/29/17 22:55 Dose: 10 mg Budesonide/Formoterol Fumarate (Symbicort 160/4.5mcg -) 1 puff IH DAILY [facility] Carvedilol (Coreg -) 25 mg PO BID [facility] Last Admin: 12/30/17 09:29 Dose: 25 mg Cilostazol (Pletal -) 50 mg PO DAILY [facility] Clopidogrel Bisulfate (Plavix -) 75 mg PO DAILY [facility] Last Admin: 12/30/17 09:30 Dose: 75 mg Cyclobenzaprine HCl (Cyclobenzaprine Hcl) 5 mg PO BID [facility] Docusate Sodium (Colace -) 100 mg PO TID [facility] Last Admin: 12/30/17 05:26 Dose: 100 mg Furosemide (Lasix -) 40 mg PO DAILY [facility] Last Admin: 12/30/17 09:30 Dose: 40 mg Insulin Aspart (Novolog Vial Sliding Scale -) 1 vial SQ [facility]; Protocol Last Admin: 12/30/17 06:02 Dose: Not Given Levofloxacin (Levaquin -) 250 mg PO DAILY@0600 [facility] Last Admin: 12/30/17 05:26 Dose: 250 mg Oxycodone HCl (Roxicodone -) 10 mg PO Q6H PRN PRN Reason: PAIN 6-10 Last Admin: 12/30/17 05:26 Dose: 10 mg Zolpidem Tartrate (Ambien -) 10 mg PO HS PRN PRN Reason: INSOMNIA Last Admin: 12/29/17 22:55 Dose: 10 mg Vital Signs Period Temp Pulse Resp BP Sys/El Pulse Ox Last 24 Hr 97.2 F-99.0 F 62-67 17-21 129-150/60-82 98-100 nad no jvd rrr s1s2 no mrg cta bl nl eff aaox3 no le e/c/c abd nt nd pos bs no jaundice diaphoresis +dp pt no carotid bruits 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 chest: left pna echo 06/2015: mild lve, mod-sev dec lvef, mod lae, nl rv size, mild dec rv fcn, mild-mod mr, mild tr, nl avr fcn, rvsp 30-40 echo 06/2016: sev dec lvef, global hk, rv tds, trinity, mod-sev mr, mod tr, rvsp 50- 60 mibi 09/2014: large inf scar, mod anteroapical ischemia, lvef 25% mibi 06/2016 (pers): non-diagnostic STs; large area inferior/inferolateral/ lateral scar; no ischemia; severe LV cavity dilation; global HK with akinesis of inferior/inferolat/lateral allan; EF 16% a/p: 62 m hx copd, cabgx3 2012, bio avr 2012, pad s/p b/l sfa occlusions, syst chf s/p medtronic icd, htn, hld, a-tach, here with back pain, sob. back pain, sob: -no signs of chf or acs -likely musculoskeletal pain - pulm consulted, sob may be 2/2 PNA, Dr. Manning chronic systolic chf: -stable vol status, wt at baseline (mid 190s lbs) -cont home lasix, pt confirms he was taking 40 qd with additional 40 if wt up -cont bb. deidra stopped in past 2/2 hyperkalemia. - stable from cardiac perspective, would DC tele copd: -appears stable, Dr. Manning following cad/hx of CABG 2012 -no recent angina/ischemia -present sx's not suggestive for angina -cont prior cad med regimen: dapt, statin, bb, ccb bio avr: -nl fcn on echo 06/20 mitral regurgitation: -likely functional MR, mild-mod on echo 06/19, then "mod-severe" when here 06/20 with suspected acute chf and pulm pressures up (though at risk for overestimation of MR severity on that echo report) -valve morphology not described (tethered leaflets?) -no murmur on exam -reassess MR severity on echo as outpt CKD: -stable here pad: -stable, no claudication, cont current cardiac meds s/p icd: -no shocks -routine outpt monitoring htn: -cont home meds hld: -cont statin atach: -minimal episodes seen in past on icd checks -cont bb anemia: -chronic, stable counts here vs baseline -per pmd DC tele
--- NOTE | 2017-12-30 10:48 | PN ---
Progress Note, Physician History of Present Illness: pulmonary alert,no distress,c/o back pain(reproducible) - Current Medication List Current Medications: Active Medications Acetaminophen (Tylenol -) 325 mg PO Q6H PRN PRN Reason: PAIN 6-10 Last Admin: 12/30/17 05:28 Dose: 325 mg Amlodipine Besylate (Norvasc -) 5 mg PO DAILY [facility] Last Admin: 12/30/17 09:29 Dose: 5 mg Aspirin (Ecotrin -) 81 mg PO DAILY [facility] Last Admin: 12/30/17 09:29 Dose: 81 mg Atorvastatin Calcium (Lipitor -) 10 mg PO HS [facility] Last Admin: 12/29/17 22:55 Dose: 10 mg Budesonide/Formoterol Fumarate (Symbicort 160/4.5mcg -) 1 puff IH DAILY [facility] Carvedilol (Coreg -) 25 mg PO BID [facility] Last Admin: 12/30/17 09:29 Dose: 25 mg Cilostazol (Pletal -) 50 mg PO DAILY [facility] Clopidogrel Bisulfate (Plavix -) 75 mg PO DAILY [facility] Last Admin: 12/30/17 09:30 Dose: 75 mg Cyclobenzaprine HCl (Cyclobenzaprine Hcl) 5 mg PO BID [facility] Docusate Sodium (Colace -) 100 mg PO TID [facility] Last Admin: 12/30/17 05:26 Dose: 100 mg Furosemide (Lasix -) 40 mg PO DAILY [facility] Last Admin: 12/30/17 09:30 Dose: 40 mg Insulin Aspart (Novolog Vial Sliding Scale -) 1 vial SQ [facility]; Protocol Last Admin: 12/30/17 06:02 Dose: Not Given Levofloxacin (Levaquin -) 250 mg PO DAILY@0600 [facility] Last Admin: 12/30/17 05:26 Dose: 250 mg Oxycodone HCl (Roxicodone -) 10 mg PO Q6H PRN PRN Reason: PAIN 6-10 Last Admin: 12/30/17 05:26 Dose: 10 mg Zolpidem Tartrate (Ambien -) 10 mg PO HS PRN PRN Reason: INSOMNIA Last Admin: 12/29/17 22:55 Dose: 10 mg - Objective Vital Signs: Vital Signs Temperature 98.5 F 12/30/17 05:22 Pulse Rate 67 12/30/17 05:22 Respiratory Rate 17 12/30/17 05:22 Blood Pressure 129/68 12/30/17 05:22 O2 Sat by Pulse Oximetry (%) 98 12/29/17 21:00 Constitutional: Yes: Well Nourished, Calm Eyes: Yes: WNL HENT: Yes: WNL Neck: Yes: WNL Cardiovascular: Yes: Regular Rate and Rhythm, S1, S2 Respiratory: Yes: Rales (few crackles at bases) Gastrointestinal: Yes: Normal Bowel Sounds, Soft Extremities: Yes: WNL Edema: No Labs: CBC, BMP 12/30/17 05:30 12/30/17 05:30 - ....Imaging Cat Scan: Report Reviewed, Image Reviewed (no change) Problem List - Problems (1) Acute on chronic respiratory failure with hypoxemia Code(s): J96.21 - ACUTE AND CHRONIC RESPIRATORY FAILURE WITH HYPOXIA (2) CHF (congestive heart failure) Code(s): I50.9 - HEART FAILURE, UNSPECIFIED (3) Acute exacerbation of CHF (congestive heart failure) Code(s): I50.9 - HEART FAILURE, UNSPECIFIED Qualifiers: Heart failure type: systolic Qualified Code(s): I50.23 - Acute on chronic systolic (congestive) heart failure (4) Afib Code(s): I48.91 - UNSPECIFIED ATRIAL FIBRILLATION Qualifiers: Atrial fibrillation type: chronic Qualified Code(s): I48.2 - Chronic atrial fibrillation (5) S/P AVR Code(s): Z95.2 - PRESENCE OF PROSTHETIC HEART VALVE (6) Shortness of breath Code(s): R06.02 - SHORTNESS OF BREATH (7) CAD (coronary artery disease) Code(s): I25.10 - ATHSCL HEART DISEASE OF [place] CORONARY ARTERY W/O ANG PCTRS Qualifiers: [place] vs. transplanted heart: [place] heart Associated angina: without angina (8) COPD (chronic obstructive pulmonary disease) Code(s): J44.9 - CHRONIC OBSTRUCTIVE PULMONARY DISEASE, UNSPECIFIED Qualifiers: COPD type: COPD with acute exacerbation Qualified Code(s): J44.1 - Chronic obstructive pulmonary disease with (acute) exacerbation (9) Diabetes Code(s): E11.9 - TYPE 2 DIABETES MELLITUS WITHOUT COMPLICATIONS Qualifiers: Diabetes mellitus type: type 2 Diabetes mellitus nursing home insulin use: with ferry terminal agent use Diabetes mellitus complication status: with kidney complications Diabetes mellitus complication detail: with chronic kidney disease Chronic kidney disease stage: stage 3 (moderate) Qualified Code(s): E11.22 - Type 2 diabetes mellitus with diabetic chronic kidney disease; N18.3 - Chronic kidney disease, stage 3 (moderate); Z79.4 - assistant terminal manager (current) use of insulin (10) HTN (hypertension) Code(s): I10 - ESSENTIAL (PRIMARY) HYPERTENSION Qualifiers: Hypertension type: essential hypertension Qualified Code(s): I10 - Essential (primary) hypertension (11) Nicotine dependence Code(s): F17.200 - NICOTINE DEPENDENCE, UNSPECIFIED, UNCOMPLICATED (12) Pleural effusion Code(s): J90 - PLEURAL EFFUSION, NOT ELSEWHERE CLASSIFIED (13) Pulmonary hypertension Code(s): I27.2 - OTHER SECONDARY PULMONARY HYPERTENSION * DO NOT USE * (14) S/P CABG x 3 Code(s): Z95.1 - PRESENCE OF AORTOCORONARY BYPASS GRAFT (16) Acute on chronic diastolic CHF (congestive heart failure) Code(s): I50.33 - ACUTE ON CHRONIC DIASTOLIC (CONGESTIVE) HEART FAILURE (17) Tobacco abuse Code(s): Z72.0 - TOBACCO USE (18) Tobacco abuse counseling Code(s): Z71.6 - TOBACCO ABUSE COUNSELING (19) Acute on chronic systolic (congestive) heart failure Code(s): I50.23 - ACUTE ON CHRONIC SYSTOLIC (CONGESTIVE) HEART FAILURE Assessment/Plan IMP ACUTE ON CHRONIC HYPOXEMIC RESPIRATORY FAILURE ACUTE ON CHRONIC CHF ADVANCED COPD O2 DEPENDENT ASHD S/P CABG S/P ICD SEVERE PULMONARY HTN BACK PAIN AFIB CKD DM S/P AVR NEUROPATHY TOBACCO ABUSE PLAN LASIX O2 INHALED BRONCHODILATORS DAILY WT ANALGESICS SMOKING CESSATION COUNSELED DR [place] Problem List - Problems (1) Acute on chronic respiratory failure with hypoxemia Code(s): J96.21 - ACUTE AND CHRONIC RESPIRATORY FAILURE WITH HYPOXIA (2) CHF (congestive heart failure) Code(s): I50.9 - HEART FAILURE, UNSPECIFIED (3) Acute exacerbation of CHF (congestive heart failure) Code(s): I50.9 - HEART FAILURE, UNSPECIFIED Qualifiers: Heart failure type: systolic Qualified Code(s): I50.23 - Acute on chronic systolic (congestive) heart failure (4) Afib Code(s): I48.91 - UNSPECIFIED ATRIAL FIBRILLATION Qualifiers: Atrial fibrillation type: chronic Qualified Code(s): I48.2 - Chronic atrial fibrillation (5) S/P AVR Code(s): Z95.2 - PRESENCE OF PROSTHETIC HEART VALVE (6) Shortness of breath Code(s): R06.02 - SHORTNESS OF BREATH (7) CAD (coronary artery disease) Code(s): I25.10 - ATHSCL HEART DISEASE OF [place] CORONARY ARTERY W/O ANG PCTRS Qualifiers: [place] vs. transplanted heart: [place] heart Associated angina: without angina (8) COPD (chronic obstructive pulmonary disease) Code(s): J44.9 - CHRONIC OBSTRUCTIVE PULMONARY DISEASE, UNSPECIFIED Qualifiers: COPD type: COPD with acute exacerbation Qualified Code(s): J44.1 - Chronic obstructive pulmonary disease with (acute) exacerbation (9) Diabetes Code(s): E11.9 - TYPE 2 DIABETES MELLITUS WITHOUT COMPLICATIONS Qualifiers: Diabetes mellitus type: type 2 Diabetes mellitus ferry terminal agent insulin use: with ferry terminal agent use Diabetes mellitus complication status: with kidney complications Diabetes mellitus complication detail: with chronic kidney disease Chronic kidney disease stage: stage 3 (moderate) Qualified Code(s): E11.22 - Type 2 diabetes mellitus with diabetic chronic kidney disease; N18.3 - Chronic kidney disease, stage 3 (moderate); Z79.4 - assistant terminal manager (current) use of insulin (10) HTN (hypertension) Code(s): I10 - ESSENTIAL (PRIMARY) HYPERTENSION Qualifiers: Hypertension type: essential hypertension Qualified Code(s): I10 - Essential (primary) hypertension (11) Nicotine dependence Code(s): F17.200 - NICOTINE DEPENDENCE, UNSPECIFIED, UNCOMPLICATED (12) Pleural effusion Code(s): J90 - PLEURAL EFFUSION, NOT ELSEWHERE CLASSIFIED (13) Pulmonary hypertension Code(s): I27.2 - OTHER SECONDARY PULMONARY HYPERTENSION * DO NOT USE * (14) S/P CABG x 3 Code(s): Z95.1 - PRESENCE OF AORTOCORONARY BYPASS GRAFT (16) Acute on chronic diastolic CHF (congestive heart failure) Code(s): I50.33 - ACUTE ON CHRONIC DIASTOLIC (CONGESTIVE) HEART FAILURE (17) Tobacco abuse Code(s): Z72.0 - TOBACCO USE (18) Tobacco abuse counseling Code(s): Z71.6 - TOBACCO ABUSE COUNSELING (19) Acute on chronic systolic (congestive) heart failure Code(s): I50.23 - ACUTE ON CHRONIC SYSTOLIC (CONGESTIVE) HEART FAILURE
[2017-12-30] MEDS ORDERED: BISACODYL 5 MG TABLET.DR (FP) PO ONE (10:49)
--- NOTE | 2017-12-30 11:57 | DS ---
Physical Examination Vital Signs: Vital Signs Temperature 98.5 F 12/30/17 05:22 Pulse Rate 67 12/30/17 05:22 Respiratory Rate 17 12/30/17 05:22 Blood Pressure 129/68 12/30/17 05:22 O2 Sat by Pulse Oximetry (%) 98 12/29/17 21:00 Constitutional: Yes: Well Nourished, No Distress, Calm Cardiovascular: Yes: Pulse Irregular Respiratory: Yes: Regular, Diminished, On Nasal O2, SOB (at baseline). No: Accessory Muscle Use, Tachypnea Gastrointestinal: Yes: WNL, Normal Bowel Sounds, Soft, Other (+ttp on lower left rib, reproducible). No: Distention, Tenderness Renal/: Yes: WNL Edema: No Neurological: Yes: WNL, Alert, Oriented Psychiatric: Yes: WNL, Alert, Oriented Labs: CBC, BMP 12/30/17 05:30 12/30/17 05:30 Discharge Summary Reason For Visit: CONGESTIVE HEART FAILURE Current Active Problems Constipation (Acute) Low TSH level (Acute) Pneumonia (Acute) Rib pain on left side (Acute) Tobacco abuse (Acute) Tobacco abuse counseling (Acute) CHF (congestive heart failure) (Chronic) Hospital Course: is a 62 year old male pmh significant for advanced COPD, and CHF who presented yesterday with complains of left lower rib/chest pain. Pt c/o difficulty breathing during the week 2/2 to the pain for which O2 did not help. Upon examination, pain is reproducible. Pt started on flexeril which has helped in the past per pt. Chest CT revealed probable PNA but no other acute changes, pt started on levaquin, continue 5 more days to complete 7 day course. Pt evaluated by pulmonary and cardiology, cleared for discharge.Labs at baseline. Low tsh w/ mildly elevated T4 noted, outpt endocrine consult given. Pt is medically stable for discharge home. F/u as directed. 31 minutes spent in discharge planning Condition: Good - Instructions Diet, Activity, Other Instructions: free t3/t4 mildly elevated, please see endocrine continue home meds as directed by pcp levaquin x 5 more days flexeril twice a day for the left rib pain, may increase to three times/day if needed f/u with PCP in 1 week Referrals: Kanu Truong MD [Primary Care Provider] - 1 Week Akosua Elizabeth MD [Staff Physician] - 1 Week Disposition: VNS/HOME HEALTH CARE - Home Medications Comprehensive Discharge Medication List: Ambulatory Orders Amlodipine Besylate [Norvasc -] 5 mg PO DAILY 06/18/15 Aspirin [Aspirin EC] 81 mg PO DAILY 06/18/15 Cilostazol 50 mg PO DAILY 06/18/15 Clopidogrel Bisulfate [Clopidogrel] 75 mg PO DAILY 06/18/15 Simvastatin [Zocor -] 20 mg PO HS 06/18/15 Zolpidem Tartrate [Ambien] 10 mg PO HS 06/18/15 Carvedilol [Coreg -] 25 mg PO BID #60 tablet 06/20/15 Lidocaine 5% Patch [Lidoderm -] 1 patch TP DAILY #30 patch 12/08/16 Psyllium [Metamucil (Sugar-Free) -] 5.85 gm PO BID #1 bottle 06/02/17 Docusate Sodium [Colace -] 100 mg PO TID #90 capsule 09/22/17 Ferrous Sulfate [Feosol] 325 mg PO DAILY 09/22/17 Furosemide [Lasix -] 80 mg PO DAILY 7 Days #7 tablet 11/21/17 Cholecalciferol (Vitamin D3) [Vitamin D3] 2,000 unit PO DAILY #30 capsule Diclofenac Sodium [Voltaren] 2 gm TP TID PRN #3 tube 12/25/17 Lactulose (Oral Use) [Cephulac -] 20 gm PO BID #1 bottle 12/25/17 Oxycodone HCl/Acetaminophen [Percocet 10-325 mg Tablet] 1 each PO QID PRN #120 tablet MDD 4 12/25/17 Budesonide/Formeterol Fumarate [SYMBICORT 160/4.5mcg -] 1 puff IH DAILY inhaler 12/30/17 Cyclobenzaprine HCl 5 mg PO BID #28 tablet 12/30/17 levoFLOXacin [Levaquin -] 250 mg PO DAILY@0600 5 Days #5 tablet 12/30/17
[2017-12-30] MEDS ORDERED: CYCLOBENZAPRINE HCL 10 MG TABLET (FP) PO SCH (13:30)
[2017-12-30 13:40] VITALS: BP 114/53; PULSE 65; TEMP 97.8
== END 2017-12-30 16:13 | disposition home health service (06) ==
LOC: JER 12:07 → JERBED 14:43 → J4W 19:35
PROVIDERS: ADMIT Internal Medicine; ATTEND Internal Medicine
PROC: 3E033GC Introduction of Other Therapeutic Substance into Peripheral Vein, Percutaneous Approach (ICD-10-PCS; principal; 2017-12-29)
PROC: 3E013VG Introduction of Insulin into Subcutaneous Tissue, Percutaneous Approach (ICD-10-PCS; 2017-12-29)
PROC: 3E0F7GC Introduction of Other Therapeutic Substance into Respiratory Tract, Via Natural or Artificial Opening (ICD-10-PCS; 2017-12-29)
DX: I11.0 Hypertensive heart disease with heart failure (principal); I50.22 Chronic systolic (congestive) heart failure; J44.1 Chronic obstructive pulmonary disease with (acute) exacerbation; J18.9 Pneumonia, unspecified organism; E11.22 Type 2 diabetes mellitus with diabetic chronic kidney disease; I12.9 Hypertensive chronic kidney disease with stage 1 through stage 4 chronic kidney disease, or unspecified chronic kidney disease; F17.210 Nicotine dependence, cigarettes, uncomplicated; N18.3 Chronic kidney disease, stage 3 (moderate); Z79.4 Long term (current) use of insulin; K59.00 Constipation, unspecified; M15.0 Primary generalized (osteo)arthritis; D63.1 Anemia in chronic kidney disease; I73.9 Peripheral vascular disease, unspecified; I48.91 Unspecified atrial fibrillation; Z95.2 Presence of prosthetic heart valve; D64.9 Anemia, unspecified; I34.0 Nonrheumatic mitral (valve) insufficiency; J90 Pleural effusion, not elsewhere classified; R79.89 Other specified abnormal findings of blood chemistry; J96.21 Acute and chronic respiratory failure with hypoxia; Z99.81 Dependence on supplemental oxygen; Z95.1 Presence of aortocoronary bypass graft; Z95.0 Presence of cardiac pacemaker; Z79.82 Long term (current) use of aspirin; Z88.6 Allergy status to analgesic agent; Z91.013 Allergy to seafood
CPT/HCPCS: 36415; 71045-TC-FY; 71250-TC; 80053; 81003; 81015; 82550; 82962; 83735; 83880; 84100; 84439; 84443; 84481; 84484; 85025; 87040; 93005; 93010; 94640; 96372; 96374; 99284-25; G0378

== ENCOUNTER 2018-01-06 18:01 | Inpatient (IN) | payer OTHER ==
--- NOTE | 2018-01-06 20:05 | PDOC ---
History of Present Illness - General Chief Complaint: Shortness of Breath Stated Complaint: OXYGEN pt run of 02 at home. Time Seen by Provider: 01/06/18 19:41 - History of Present Illness Initial Comments: 01/06/18 20:02 62 y/o M w/PMH of COPD (on home O2 at 2L as needed), HTN, DM, CKD, CAD s/p CABG and pacemaker placement, systolic CHF bioprosthetic AVR, recent hospitalization from 11/13-11/21/17 for CHF exacerbation and recent hospitalization 12/29-12/30 for presumed PNA (discharged on levaquin) presents to the ER w/ worsening SOB x1 week associated with difficulty swallowing solids x1d. Since his last admission, his sxs of chills and back/chest pain have resolved ( was dc w/ flexeril). pt says he has competed his 5d levaquin. Pt, however, came in today bec SOB has worsened and bec he has run out of oxygen at home. Tomorrow will be getting more oxygen delivered. At baseline Uses 4 pillows, can walk 1 flight, 1 block. Now can only walk 10 ft before getting short of breath and will need oxygen. He has a cough and generalized weakness that is unchanged from his baseline generalized weakness and smoker's cough and cough has been without sputum. Pt has had difficulty swallowing solids x1d, says feels like food gets stuck. No issues w/ liquids. First time this this has happened. Denies fever, chills, CP, abd pain, n/v/d, blood in stools, urinary sxs, GASTELUM, leg swelling, leg pain, body aches, sick contacts. Past History - Past Medical History Allergies/Adverse Reactions: Allergies Allergy/AdvReac Type Severity Reaction Status Date / Time Fish Containing Products Allergy Verified 01/06/18 19:36 codeine AdvReac Intermediate Vomiting Verified 01/06/18 19:36 gabapentin AdvReac Intermediate dizzy Verified 01/06/18 19:36 Home Medications: Ambulatory Orders Amlodipine Besylate [Norvasc -] 5 mg PO DAILY 06/18/15 Aspirin [Aspirin EC] 81 mg PO DAILY 06/18/15 Cilostazol 50 mg PO DAILY 06/18/15 Clopidogrel Bisulfate [Clopidogrel] 75 mg PO DAILY 06/18/15 Simvastatin [Zocor -] 20 mg PO HS 06/18/15 Zolpidem Tartrate [Ambien] 10 mg PO HS 06/18/15 Carvedilol [Coreg -] 25 mg PO BID #60 tablet 06/20/15 Lidocaine 5% Patch [Lidoderm -] 1 patch TP DAILY #30 patch 12/08/16 Psyllium [Metamucil (Sugar-Free) -] 5.85 gm PO BID #1 bottle 06/02/17 Docusate Sodium [Colace -] 100 mg PO TID #90 capsule 09/22/17 Ferrous Sulfate [Feosol] 325 mg PO DAILY 09/22/17 Furosemide [Lasix -] 80 mg PO DAILY 7 Days #7 tablet 11/21/17 Cholecalciferol (Vitamin D3) [Vitamin D3] 2,000 unit PO DAILY #30 capsule Diclofenac Sodium [Voltaren] 2 gm TP TID PRN #3 tube 12/25/17 Lactulose (Oral Use) [Cephulac -] 20 gm PO BID #1 bottle 12/25/17 Oxycodone HCl/Acetaminophen [Percocet 10-325 mg Tablet] 1 each PO QID PRN #120 tablet MDD 4 12/25/17 Budesonide/Formeterol Fumarate [SYMBICORT 160/4.5mcg -] 1 puff IH DAILY inhaler 12/30/17 Cyclobenzaprine HCl 5 mg PO BID #28 tablet 12/30/17 levoFLOXacin [Levaquin -] 250 mg PO DAILY@0600 5 Days #5 tablet 12/30/17 Anemia: No Asthma: No Cancer: No Cardiac Disorders: Yes (cabg, AFIB) CVA: No COPD: Yes CHF: Yes (with pleural effusion) Dementia: No Diabetes: Yes (with neuropathy) GI Disorders: No Disorders: No HTN: Yes Hypercholesterolemia: Yes Liver Disease: No Seizures: No Thyroid Disease: No - Surgical History Abdominal Surgery: No Appendectomy: No Cardiac Surgery: Yes (CABG x 3, implanted defib and pacer) Cholecystectomy: No Lung Surgery: No Neurologic Surgery: No Orthopedic Surgery: No - Immunization History Td Vaccination: Yes (unknown) Immunization Up to Date: Yes - Suicide/Smoking/Psychosocial Hx Smoking Status: Yes Smoking History: Unknown if ever smoked Years of Tobacco Use: 40 Have you smoked in the past 12 months: Yes Number of Cigarettes Smoked Daily: 8 If you are a former smoker, when did you quit?: 06/20/16 Cigars Per Day: 0 Information on smoking cessation initiated: No 'Breaking Loose' booklet given: 07/04/16 Hx Alcohol Use: No Drug/Substance Use Hx: No Substance Use Type: None Hx Substance Use Treatment: No Review of Systems - Review of Systems Constitutional: Yes: See HPI HEENTM: Yes: See HPI Respiratory: Yes: See HPI Cardiac (ROS): Yes: See HPI ABD/GI: Yes: See HPI : Yes: See HPI Musculoskeletal: Yes: See HPI Integumentary: Yes: See HPI Neurological: Yes: See HPI Endocrine: Yes: See HPI Hematologic/Lymphatic: Yes: See HPI *Physical Exam - Vital Signs Last Vital Signs Temp Pulse Resp BP Pulse Ox 97.8 F 65 16 151/80 95 01/06/18 18:01 01/06/18 18:01 01/06/18 18:01 01/06/18 18:01 01/06/18 18:01 - Physical Exam Comments: 01/06/18 20:24 GENERAL: AOx3 NAD HEENT: NCAT sclera anicteric, Hearing grossly normal, MMM. no exudates, erythema, or lesions NECK: Normal ROM, supple, no lymphadenopathy LUNGS: crackles b/l throughout lung hernandez HEART: irregularly irregular normal S1 and S2, no murmurs appreciated, peripheral pulses normal and equal bilaterally ABDOMEN: Soft, NTND +BS. EXTREMITIES: No edema or leg calf tenderness. strength grossly intact NEUROLOGICAL: Cranial nerves II through XII grossly intact. normal speech. SKIN: Warm, Dry. ED Treatment Course - LABORATORY CBC & Chemistry Diagram: 01/06/18 22:00 01/06/18 22:00 Medical Decision Making - Medical Decision Making 01/06/18 21:22 62 y/o M w/PMH of COPD (on home O2 at 2L as needed), HTN, DM, CKD, CAD s/p CABG and pacemaker placement, systolic CHF bioprosthetic AVR, recent hospitalization from 11/13-11/21/17 for CHF exacerbation and recent hospitalization 12/29-12/30 for presumed PNA (discharged on levaquin) presents to the ER w/ worsening SOB x1 week associated with difficulty swallowing solids x1d. vitals wnl. pt w/ b/l crackles. likely CHF exacerbation vs COPD exac vs recurring PNA vs MS -CBC, CMP, trop, BNP, coags, EKG -CXR -IV lasix 40mg 01/06/18 23:31 -BNP 30,000s, elevated from 10,000s on 12/29 -trop mild elevation likely demand ischemia 2/2 CHF exac -EKG unchanged from prior on 12/29/17, Atrial flutter, rate 70. Frequent PVCs. When compared to EKG from last admission, no significant change. -CXR appears unchanged from last admission -will admit to inpatient for CHF exacerbation 01/07/18 00:05 Signed out to HARITHA Cervantes, will admit to tele for CHF exacerbation *DC/Admit/Observation/Transfer Diagnosis at time of Disposition: Shortness of breath CHF (congestive heart failure) Qualifiers: Heart failure type: unspecified Heart failure chronicity: acute on chronic Qualified Code(s): I50.9 - Heart failure, unspecified - Referrals Referrals: Kanu Truong MD [Primary Care Provider] - - Patient Instructions - Post Discharge Activity
[2018-01-06] MEDS ORDERED: FUROSEMIDE 40 MG/4 ML INJECTABLE VIAL IVPUSH ONE (20:59)
--- NOTE | 2018-01-06 22:22 | PDOC ---
Attending Attestation - Resident Resident Name: Jakob Smith - ED Attending Attestation I have performed the following: I have examined & evaluated the patient, The case was reviewed & discussed with the resident, I agree w/resident's findings & plan, Exceptions are as noted - HPI HPI: 01/06/18 22:25 The patient is a 62-year-old, with a past medical history of COPD (on home O2 at 2L as needed), HTN, DM, CKD, CAD s/p CABG and pacemaker placement, systolic CHF with AVR, who presents to the ED with worsening shortness of breath. The patient was admitted on 12/29 to rule out CHF vs pneumonia. Patient was discharged with course of antibiotics to treat pneumonia which he finished. He presents today because his shortness of breath has progressively worsened since he was discharged. He states that he can only walk a few feet without requiring O2. He also reports that he ran out of his O2 tanks today because he has been using them more than normal, but is getting a new shipment tomorrow. The patient denies any fever, chills, cough, nausea, vomiting, diarrhea, or abdominal pain. Denies any chest pain or palpitations. Denies any urinary changes. Allergies: fish-containing products, codeine, gabapentin. Surgical History: CABG x3, implanted defibrillator and pacemaker. Social History: Former smoker (40 year history). PCP: Dr. Truong - Physicial Exam PE: 01/06/18 22:28 agree with resident exam - Medical Decision Making 01/06/18 22:29 62yo M with MMP including COPD, CHF presents to the ED with progressive SOB. Vitals remarkable for elevated BP to 150s systolic, otherwise wnl. Exam with b/ l rales. DDx includes BNLT chf exac vs copd exac vs pna vs acs. Plan to get labs , XR, EKG and admit. 01/06/18 23:30 BNP elevated to 31K range, much higher than usual -> most likely CHF exacerbation Trop elevated to 0.06, likely demand EKG with no changes Hosp paged for admit 01/06/18 23:50 Case discussed in detail with admitting physician including history, physical exam and ancillary studies. Admitting physician has assumed care for the patient, will follow all pending diagnostics and will complete the evaluation and treatment. Heart Score/ECG Review - History History: Moderately suspicious - Electrocardiogram EKG: Non specific repolarization disturbance - Age Age: 45-65 - Risk Factors Based on the list above the patient has:: >/=3 risk factors or Hx atherosclerotic disease - Troponin Troponin: </= normal limit - Score Heart Score - Total: 5 #1 01/06/18 23:31 Twelve-lead EKG was performed and reviewed by me. Atrial flutter, rate 70. Frequent PVCs. When compared to EKG from last admission, no significant change.
[2018-01-06 22:29] LABS: BASO % 1.1 % (0-2.0); EOS % 3.6 % (0-4.5); HEMATOCRIT 27.9 % (35.4-49); HEMOGLOBIN 9.2 GM/dL (11.7-16.9); LYMPH % 9.1 % (8-40); MCH 31.2 pg (25.7-33.7); MCHC 33.1 g/dl (32.0-35.9); MEAN CELL VOLUME 94.3 fl (80-96); MEAN PLT VOLUME 7.9 fl (7.5-11.1); NEUT % 79.2 % (42.8-82.8); PLATELET COUNT 277 K/MM3 (134-434); RBC 2.95 M/mm3 (4.00-5.60); RDW 16.5 % (11.9-15.9); WHITE BLOOD COUNT 10.2 K/mm3 (4.0-10.0)
[2018-01-06 22:42] LABS: INR 1.23 (0.83-1.09); PROTHROMBIN TIME (PATIENT) 14.5 SEC (9.7-13.0)
[2018-01-06 22:45] LABS: ACTIVATED PTT 30.4 SECONDS (25.2-36.5)
[2018-01-06 22:50] LABS: ALK PHOS 93 U/L (45-117); ANION GAP 6 MMOL/L (8-16); BILIRUBIN,TOTAL 0.6 mg/dL (0.2-1); BLOOD UREA NITROGEN 48 mg/dL (7-18); CALCIUM 8.3 mg/dL (8.5-10.1); CHLORIDE 102 mmol/L (98-107); CO2 29 mmol/L (21-32); CREATININE 1.9 mg/dL (0.55-1.3); GLUCOSE,RANDOM 129 mg/dL (74-106); POTASSIUM 3.8 mmol/L (3.5-5.1); SGOT/AST 11 U/L (15-37); SGPT/ALT 9 U/L (13-61); SODIUM 138 mmol/L (136-145); TOT PROT 6.7 g/dl (6.4-8.2)
[2018-01-06] MEDS ORDERED: FUROSEMIDE 40 MG/4 ML INJECTABLE VIAL ONE (23:42)
--- NOTE | 2018-01-06 23:56 | HP ---
Admitting History and Physical - Primary Care Physician PCP: Kanu Truong - Admission Chief Complaint: Increased SOB History of Present Illness: This is a 62 y/o man from home with a past medical history of COPD (O2 dep), CHF , HTN, DM, CKD, CAD s/p CABG, PPM. Who presents to the ED with increased SOB, MAC[place] x 1 day. Patient reports running out of his O2 canisters. He also reports being unable to walk 10 steps without SOB. He reports recent admission for Pneumonia, CHF Exacerbation d/c 12/30/17, completing Levaquin. Patient reports taking all his AM meds today. Patient reports having difficulty swallowing a roast beef sandwich. Patient reports tolerating Noodle Soup without issue tonight. Patient denies fever, chills, CP, palpitations, AP, N/V/D, constipation , dysuria. History Source: Patient Limitations to Obtaining History: No Limitations - Past Medical History Cardiovascular: Yes: AFIB (after CABG briefly; not on AC), CAD, CHF, HTN, Mitral Insufficiency Pulmonary: Yes: COPD, O2 Dependent Heme/Onc: Yes: Anemia Endocrine: Yes: Diabetes Mellitus - Past Surgical History Past Surgical History: Yes: AICD, CABG - Smoking History Smoking history: Unknown if ever smoked Have you smoked in the past 12 months: Yes Aproximately how many cigarettes per day: 8 If you are a former smoker, when did you quit?: 06/20/16 - Alcohol/Substance Use Hx Alcohol Use: No History of Substance Use: reports: None - Social History ADL: Independent History of Recent Travel: No Home Medications - Allergies Allergies/Adverse Reactions: Allergies Allergy/AdvReac Type Severity Reaction Status Date / Time Fish Containing Products Allergy Verified 01/06/18 19:36 codeine AdvReac Intermediate Vomiting Verified 01/06/18 19:36 gabapentin AdvReac Intermediate dizzy Verified 01/06/18 19:36 - Home Medications Home Medications: Ambulatory Orders Aspirin [Aspirin EC] 81 mg PO DAILY 06/18/15 Cilostazol 50 mg PO DAILY 06/18/15 Clopidogrel Bisulfate [Clopidogrel] 75 mg PO DAILY 06/18/15 Simvastatin [Zocor -] 20 mg PO HS 06/18/15 Zolpidem Tartrate [Ambien] 10 mg PO HS 06/18/15 Carvedilol [Coreg -] 25 mg PO BID #60 tablet 06/20/15 Psyllium [Metamucil (Sugar-Free) -] 5.85 gm PO BID #1 bottle 06/02/17 Docusate Sodium [Colace -] 100 mg PO TID #90 capsule 09/22/17 Ferrous Sulfate [Feosol] 325 mg PO DAILY 09/22/17 Furosemide [Lasix -] 80 mg PO DAILY 7 Days #7 tablet 11/21/17 Cholecalciferol (Vitamin D3) [Vitamin D3] 2,000 unit PO DAILY #30 capsule Diclofenac Sodium [Voltaren] 2 gm TP TID PRN #3 tube 12/25/17 Lactulose (Oral Use) [Cephulac -] 20 gm PO BID #1 bottle 12/25/17 Oxycodone HCl/Acetaminophen [Percocet 10-325 mg Tablet] 1 each PO QID PRN #120 tablet MDD 4 12/25/17 Budesonide/Formeterol Fumarate [SYMBICORT 160/4.5mcg -] 1 puff IH DAILY inhaler 12/30/17 Cyclobenzaprine HCl 5 mg PO BID #28 tablet 12/30/17 levoFLOXacin [Levaquin -] 250 mg PO DAILY@0600 5 Days #5 tablet 12/30/17 Family Disease History - Family Disease History Family Disease History: Heart Disease: Father (etoh), Mother (, cva), Other: Brother (alive - Ramírez - hx etoh), Sister (five - alive - no medical problems), Son (two adults - no problems) Review of Systems - Review of Systems Constitutional: reports: No Symptoms Eyes: reports: No Symptoms HENT: reports: Difficult Swallowing Neck: reports: No Symptoms Cardiovascular: reports: Shortness of Breath Respiratory: reports: Cough, Exercise Intolerance, SOB, SOB on Exertion Gastrointestinal: reports: No Symptoms Genitourinary: reports: No Symptoms Breasts: reports: No Symptoms Reported Musculoskeletal: reports: No Symptoms Integumentary: reports: No Symptoms Neurological: reports: No Symptoms Endocrine: reports: No Symptoms Hematology/Lymphatic: reports: No Symptoms Psychiatric: reports: No Symptoms Physical Examination Vital Signs: Vital Signs Temperature 97.8 F 01/06/18 18:01 Pulse Rate 65 01/06/18 18:01 Respiratory Rate 16 01/06/18 18:01 Blood Pressure 151/80 01/06/18 18:01 O2 Sat by Pulse Oximetry (%) 95 01/06/18 18:01 Constitutional: Yes: Well Nourished, No Distress, Calm, Obese Eyes: Yes: WNL, Conjunctiva Clear, EOM Intact, PERRL HENT: Yes: WNL, Atraumatic, Normocephalic Neck: Yes: WNL, Supple, Trachea Midline Cardiovascular: Yes: Regular Rate and Rhythm, S1, S2. No: JVD Respiratory: Yes: Diminished, Rales, SOB, SOB on Exertion Gastrointestinal: Yes: Normal Bowel Sounds, Soft, Abdomen, Obese Renal/: Yes: WNL Breast(s): Yes: WNL Musculoskeletal: Yes: WNL Extremities: Yes: WNL Edema: No Peripheral Pulses WNL: Yes Neurological: Yes: WNL, Alert, Oriented ...Motor Strength: WNL Psychiatric: Yes: WNL, Alert, Oriented Labs: CBC, BMP 01/06/18 22:00 01/06/18 22:00 Laboratory Results - last 24 hr 01/06/18 01/06/18 01/06/18 22:00 22:00 22:00 WBC 10.2 H RBC 2.95 L Hgb 9.2 L Hct 27.9 L MCV 94.3 MCH 31.2 MCHC 33.1 RDW 16.5 H Plt Count 277 D MPV 7.9 Absolute Neuts (auto) 8.1 H Neutrophils % 79.2 Lymphocytes % 9.1 Monocytes % 7.0 Eosinophils % 3.6 Basophils % 1.1 Nucleated RBC % 0 PT with INR INR PTT (Actin FS) Sodium 138 Potassium 3.8 Chloride 102 Carbon Dioxide 29 Anion Gap 6 L BUN 48 H Creatinine 1.9 H Creat Clearance w eGFR 36.10 Random Glucose 129 H Calcium 8.3 L Total Bilirubin 0.6 AST 11 L ALT 9 L Alkaline Phosphatase 93 Troponin I 0.06 H B-Natriuretic Peptide 70610.7 H Total Protein 6.7 Albumin 3.0 L 01/06/18 22:00 WBC RBC Hgb Hct MCV MCH MCHC RDW Plt Count MPV Absolute Neuts (auto) Neutrophils % Lymphocytes % Monocytes % Eosinophils % Basophils % Nucleated RBC % PT with INR 14.50 H INR 1.23 H PTT (Actin FS) 30.4 Sodium Potassium Chloride Carbon Dioxide Anion Gap BUN Creatinine Creat Clearance w eGFR Random Glucose Calcium Total Bilirubin AST ALT Alkaline Phosphatase Troponin I B-Natriuretic Peptide Total Protein Albumin Intake & Output 01/04/18 01/05/18 01/06/18 01/07/18 23:59 23:59 23:59 23:59 Weight 88.451 kg Current Medications Generic Name Dose Route Start Last Admin Trade Name Freq PRN Reason Stop Dose Admin Acetaminophen 325 mg 01/07/18 02:00 01/07/18 02:25 Tylenol - PO 325 mg Q6H PRN Administration PAIN LEVEL 7 - 10 Aspirin 81 mg 01/07/18 10:00 Ecotrin - PO DAILY [facility] Atorvastatin Calcium 10 mg 01/07/18 22:00 Lipitor - PO HS [facility] Budesonide/Formoterol Fumarate 2 puff 01/07/18 10:00 Symbicort 160/4.5mcg - IH BID [facility] Carvedilol 25 mg 01/07/18 10:00 Coreg - PO BID [facility] Clopidogrel Bisulfate 75 mg 01/07/18 10:00 Plavix - PO DAILY [facility] Docusate Sodium 100 mg 01/07/18 01:58 Colace - PO BID PRN CONSTIPATION Furosemide 40 mg 01/07/18 10:00 Lasix Injection - IVPUSH DAILY [facility] Oxycodone HCl 10 mg 01/07/18 01:58 01/07/18 02:25 Roxicodone - PO 10 mg Q6H PRN Administration PAIN LEVEL 7 - 10 Zolpidem Tartrate 10 mg 01/07/18 01:57 01/07/18 02:25 Ambien - PO 10 mg HS PRN Administration INSOMNIA Imaging - Results Chest X-ray: Image Reviewed EKG: Image Reviewed Problem List - Problems (1) Shortness of breath Code(s): R06.02 - SHORTNESS OF BREATH (2) Acute exacerbation of CHF (congestive heart failure) Code(s): I50.9 - HEART FAILURE, UNSPECIFIED Qualifiers: Heart failure type: systolic Qualified Code(s): I50.23 - Acute on chronic systolic (congestive) heart failure (3) Afib Code(s): I48.91 - UNSPECIFIED ATRIAL FIBRILLATION Qualifiers: Atrial fibrillation type: chronic Qualified Code(s): I48.2 - Chronic atrial fibrillation (4) COPD exacerbation Code(s): J44.1 - CHRONIC OBSTRUCTIVE PULMONARY DISEASE W (ACUTE) EXACERBATION (5) Chronic kidney disease (CKD) Code(s): N18.9 - CHRONIC KIDNEY DISEASE, UNSPECIFIED Qualifiers: Chronic kidney disease stage: stage 3 (moderate) Qualified Code(s): N18.3 - Chronic kidney disease, stage 3 (moderate) (6) Diabetes Code(s): E11.9 - TYPE 2 DIABETES MELLITUS WITHOUT COMPLICATIONS Qualifiers: Diabetes mellitus type: type 2 Diabetes mellitus long term care social worker insulin use: with long term care social worker use Diabetes mellitus complication status: with kidney complications Diabetes mellitus complication detail: with chronic kidney disease Chronic kidney disease stage: stage 3 (moderate) Qualified Code(s): E11.22 - Type 2 diabetes mellitus with diabetic chronic kidney disease; N18.3 - Chronic kidney disease, stage 3 (moderate); Z79.4 - skilled nursing (current) use of insulin (7) HTN (hypertension) Code(s): I10 - ESSENTIAL (PRIMARY) HYPERTENSION Qualifiers: Hypertension type: essential hypertension Qualified Code(s): I10 - Essential (primary) hypertension (8) Pulmonary hypertension Code(s): I27.2 - OTHER SECONDARY PULMONARY HYPERTENSION * DO NOT USE * (9) S/P CABG x 3 Code(s): Z95.1 - PRESENCE OF AORTOCORONARY BYPASS GRAFT Assessment/Plan 62 y/o man with a PMHx of COPD (2L), CHF, HTN, DM, CAD s/p CABG, PPM, CKD. Admitted to Telemetry for Acute on Chronic CHF, COPD Exacerbation for further evaluation of their emergent condition. Plan: 1. Cardiology: Acute on Chronic CHF, CAD, HTN Admit to Tele Continue Cardiac monitoring Serial Enzymes Appreciate Cardiology consult Lasix given in ED will continue Strict INOs Daily weights Continue Asa, Lipitor, Coreg with parameters Monitor CBC, BMP O2 Consider Social work consult- for O2 delivery to pt's home 2. Pulm: COPD Exacerbation - Continue Duonebs - Appreicate Pulm consult - Continue Symbicort 3. Endocrine: DM - controlled - BGMs - no current meds - Diabetic Diet 4. Nephrology: CKD - at baseline - Continue to monitor and treat with interventions accordingly FEN Fluid Restriction 1L Replete lytes prn Low Na, Diabetic Diet DVT ppx OOB SCDs Continue Plavix Code Status: Full Code Dispo: Requires Inpatient Care Visit type - Emergency Visit Emergency Visit: Yes ED Registration Date: 01/06/18 Care time: The patient presented to the Emergency Department on the above date and was hospitalized for further evaluation of their emergent condition. - New Patient This patient is new to me today: Yes Date on this admission: 01/06/18 - Critical Care Critical Care patient: No
[2018-01-07] MEDS ORDERED: DOCUSATE SODIUM 100 MG CAPSULE (FP) PO PRN (01:58)
[2018-01-07] MEDS ORDERED: ATORVASTATIN CA 10 MG TABLET (FP) PO ONE (02:14)
[2018-01-07] MEDS: ACETAMINOPHEN 325 MG TABLET (FP) PO PRN ×2 (02:25→20:49)
[2018-01-07] MEDS: oxyCODONE HCL 5 MG TABLET PO PRN ×3 (02:25→20:40)
[2018-01-07] MEDS: ZOLPIDEM TARTRATE 5 MG TABLET PO PRN ×2 (02:25→22:13)
[2018-01-07 08:10] LABS: BASO % 0.9 % (0-2.0); EOS % 3.4 % (0-4.5); HEMATOCRIT 27.7 % (35.4-49); HEMOGLOBIN 9.3 GM/dL (11.7-16.9); LYMPH % 8.9 % (8-40); MCH 31.4 pg (25.7-33.7); MCHC 33.6 g/dl (32.0-35.9); MEAN CELL VOLUME 93.6 fl (80-96); MEAN PLT VOLUME 7.9 fl (7.5-11.1); MONO % 8.6 % (3.8-10.2); NEUT % 78.2 % (42.8-82.8); PLATELET COUNT 261 K/MM3 (134-434); RBC 2.96 M/mm3 (4.00-5.60); RDW 16.1 % (11.9-15.9); WHITE BLOOD COUNT 9.5 K/mm3 (4.0-10.0)
[2018-01-07 08:13] LABS: ANION GAP 9 MMOL/L (8-16); BLOOD UREA NITROGEN 44 mg/dL (7-18); CALCIUM 8.3 mg/dL (8.5-10.1); CHLORIDE 100 mmol/L (98-107); CHOLESTEROL 108 mg/dL (50-200); CO2 30 mmol/L (21-32); CREATININE 1.9 mg/dL (0.55-1.3); GLUCOSE,RANDOM 123 mg/dL (74-106); HDL CHOLESTEROL 28 mg/dL (40-60); MAGNESIUM 2.5 mg/dL (1.8-2.4); PHOSPHOROUS 2.3 mg/dL (2.5-4.9); POTASSIUM 3.8 mmol/L (3.5-5.1); SODIUM 139 mmol/L (136-145); TRIGLYCERIDES 136 mg/dL (0-150)
[2018-01-07] MEDS: CARVEDILOL 25 MG TABLET (FP) PO SCH ×2 (09:27→22:13)
[2018-01-07] MEDS: ASPIRIN COATED 81 MG TABLET.EC PO SCH (09:28)
[2018-01-07] MEDS ORDERED: CLOPIDOGREL BISULFATE 75 MG TABLET (FP) ONE (09:29)
[2018-01-07] MEDS: CLOPIDOGREL BISULFATE 75 MG TABLET (FP) PO SCH (09:30)
[2018-01-07] MEDS ORDERED: FUROSEMIDE 40 MG/4 ML INJECTABLE VIAL IVPUSH SCH (10:00)
[2018-01-07] MEDS ORDERED: amLODIPine BESYLATE 5 MG TABLET (FP) PO SCH (10:00)
[2018-01-07] MEDS ORDERED: HEPARIN NA (PORCINE) 5,000 UNITS/ML 1ML VIAL SQ SCH (10:00)
--- NOTE | 2018-01-07 10:59 | PN ---
Progress Note, Physician Chief Complaint: Pt lying in stretcher in no acute distress. mildly sob. Denies any chest pain, n /v/d, unilateral weakness. - Current Medication List Current Medications: Active Medications Acetaminophen (Tylenol -) 325 mg PO Q6H PRN PRN Reason: PAIN LEVEL 7 - 10 Last Admin: 01/07/18 02:25 Dose: 325 mg Albuterol Sulfate (Ventolin 0.083% Nebulizer Soln -) 1 amp NEB Q6H PRN PRN Reason: SHORT OF BREATH/WHEEZING Aspirin (Ecotrin -) 81 mg PO DAILY [facility] Last Admin: 01/07/18 09:28 Dose: 81 mg Atorvastatin Calcium (Lipitor -) 10 mg PO HS [facility] Budesonide/Formoterol Fumarate (Symbicort 160/4.5mcg -) 2 puff IH BID [facility] Carvedilol (Coreg -) 25 mg PO BID [facility] Last Admin: 01/07/18 09:27 Dose: 25 mg Clopidogrel Bisulfate (Plavix -) 75 mg PO DAILY [facility] Last Admin: 01/07/18 09:30 Dose: 75 mg Docusate Sodium (Colace -) 100 mg PO BID PRN PRN Reason: CONSTIPATION Furosemide (Lasix Injection -) 40 mg IVPUSH DAILY [facility] Last Admin: 01/07/18 09:28 Dose: 40 mg Oxycodone HCl (Roxicodone -) 10 mg PO Q6H PRN PRN Reason: PAIN LEVEL 7 - 10 Last Admin: 01/07/18 02:25 Dose: 10 mg Zolpidem Tartrate (Ambien -) 10 mg PO HS PRN PRN Reason: INSOMNIA Last Admin: 01/07/18 02:25 Dose: 10 mg - Objective Vital Signs: Vital Signs Temperature 97.5 F L 01/07/18 08:29 Pulse Rate 63 01/07/18 08:29 Respiratory Rate 26 H 01/07/18 08:29 Blood Pressure 139/88 01/07/18 08:29 O2 Sat by Pulse Oximetry (%) 96 01/07/18 08:29 Constitutional: Yes: Well Nourished, No Distress Cardiovascular: Yes: Regular Rate and Rhythm Respiratory: Yes: Regular, Diminished, On Nasal O2, Rales (bibasilar), SOB, SOB on Exertion. No: Accessory Muscle Use, Tachypnea, Wheezes Gastrointestinal: Yes: WNL, Normal Bowel Sounds, Soft. No: Distention, Tenderness Genitourinary: Yes: WNL Edema: No Neurological: Yes: WNL, Alert, Oriented Psychiatric: Yes: WNL, Alert, Oriented Labs: CBC, BMP 01/07/18 07:00 01/07/18 07:00 INR, PTT INR 1.23 (0.83-1.09) H 01/06/18 22:00 Assessment/Plan (1) Acute exacerbation of CHF (congestive heart failure) Assessment/Plan: acute on chronic suspect exacerbated by high Na diet, nepali food seen at bedside, pt not compliant with low na diet at home he reports he doesn't cook so eats mostly from outside IV lasix daily weights O2 as needed low Na diet dietary counseling cardiology following Code(s): I50.9 - HEART FAILURE, UNSPECIFIED Qualifiers: Heart failure type: systolic Qualified Code(s): I50.23 - Acute on chronic systolic (congestive) heart failure (2) Shortness of breath Assessment/Plan: as above 2/2 chf exacerbation continue O2 via nc pulm/cardiology following as above Code(s): R06.02 - SHORTNESS OF BREATH (3) CHF (congestive heart failure) Assessment/Plan: s/p icd appears at dry weight 192-196lbs as above Code(s): I50.9 - HEART FAILURE, UNSPECIFIED (4) COPD (chronic obstructive pulmonary disease) Assessment/Plan: chronic, O2 dependent continue nebs pulm following Code(s): J44.9 - CHRONIC OBSTRUCTIVE PULMONARY DISEASE, UNSPECIFIED Qualifiers: COPD type: COPD with acute exacerbation Qualified Code(s): J44.1 - Chronic obstructive pulmonary disease with (acute) exacerbation (5) Chronic kidney disease (CKD) Assessment/Plan: at baseline monitor Code(s): N18.9 - CHRONIC KIDNEY DISEASE, UNSPECIFIED Qualifiers: Chronic kidney disease stage: stage 3 (moderate) Qualified Code(s): N18.3 - Chronic kidney disease, stage 3 (moderate) (6) CAD (coronary artery disease) Assessment/Plan: s/p cabgx 3 continue asa/statin/plavix Code(s): I25.10 - ATHSCL HEART DISEASE OF [place] CORONARY ARTERY W/O ANG PCTRS Qualifiers: [place] vs. transplanted heart: [place] heart Associated angina: without angina (7) Diabetes Assessment/Plan: chronic bgm glipizide monitor Code(s): E11.9 - TYPE 2 DIABETES MELLITUS WITHOUT COMPLICATIONS Qualifiers: Diabetes mellitus type: type 2 Diabetes mellitus equipment operator intermodal yard insulin use: with equipment operator intermodal yard use Diabetes mellitus complication status: with kidney complications Diabetes mellitus complication detail: with chronic kidney disease Chronic kidney disease stage: stage 3 (moderate) Qualified Code(s): E11.22 - Type 2 diabetes mellitus with diabetic chronic kidney disease; N18.3 - Chronic kidney disease, stage 3 (moderate); Z79.4 - manager terminal (current) use of insulin (8) HTN (hypertension) Assessment/Plan: controlled continue carvedilol, amlodipine monitor Code(s): I10 - ESSENTIAL (PRIMARY) HYPERTENSION Qualifiers: Hypertension type: essential hypertension Qualified Code(s): I10 - Essential (primary) hypertension (10) Osteoarthritis, multiple sites Assessment/Plan: stable Code(s): M15.9 - POLYOSTEOARTHRITIS, UNSPECIFIED Qualifiers: Osteoarthritis type: primary Qualified Code(s): M15.0 - Primary generalized (osteo)arthritis (11) Low back pain Assessment/Plan: chronic PT analgesics prn Code(s): M54.5 - LOW BACK PAIN Qualifiers: Chronicity: chronic (12) Anemia Assessment/Plan: chronic hg/hct stable monitor Code(s): D64.9 - ANEMIA, UNSPECIFIED Qualifiers: Anemia type: due to chronic kidney disease Chronic kidney disease stage: stage 3 (moderate) Qualified Code(s): N18.3 - Chronic kidney disease, stage 3 (moderate); D63.1 - Anemia in chronic kidney disease (13) Peripheral vascular disease Assessment/Plan: pad, stable continue statin/plavix/asa/cilostazol Code(s): I73.9 - PERIPHERAL VASCULAR DISEASE, UNSPECIFIED
--- NOTE | 2018-01-07 11:56 | CON.CARD ---
Cardiology Consult (text) - Consultation Consultation Note: cc: sob on exertion hpi: 62 m hx copd, cabgx3 2012, bio avr 2012, pad s/p b/l sfa occlusions, syst chf s/p medtronic icd, htn, hld, a-tach, here with sob. Feels he gets short of breath even walking a few steps. recently admitted for back pain, SOB. Sees Dr. Zafar for cardiology. Received lasix 40 mg IV x 1 in ER pmh: per hpi psh: cabg, avr, icd social: +tob fam: no premature cad ros: per hpi; no nvd, fever, wt loss, rash, hematuria, gib, nasal congestion, shel[place] , vision changes meds: Ambulatory Orders Aspirin [Aspirin EC] 81 mg PO DAILY 06/18/15 Cilostazol 50 mg PO DAILY 06/18/15 Clopidogrel Bisulfate [Clopidogrel] 75 mg PO DAILY 06/18/15 Simvastatin [Zocor -] 20 mg PO HS 06/18/15 Zolpidem Tartrate [Ambien] 10 mg PO HS 06/18/15 Carvedilol [Coreg -] 25 mg PO BID #60 tablet 06/20/15 Psyllium [Metamucil (Sugar-Free) -] 5.85 gm PO BID #1 bottle 06/02/17 Docusate Sodium [Colace -] 100 mg PO TID #90 capsule 09/22/17 Ferrous Sulfate [Feosol] 325 mg PO DAILY 09/22/17 Furosemide [Lasix -] 80 mg PO DAILY 7 Days #7 tablet 11/21/17 Cholecalciferol (Vitamin D3) [Vitamin D3] 2,000 unit PO DAILY #30 capsule Diclofenac Sodium [Voltaren] 2 gm TP TID PRN #3 tube 12/25/17 Lactulose (Oral Use) [Cephulac -] 20 gm PO BID #1 bottle 12/25/17 Oxycodone HCl/Acetaminophen [Percocet 10-325 mg Tablet] 1 each PO QID PRN #120 tablet MDD 4 12/25/17 Budesonide/Formeterol Fumarate [SYMBICORT 160/4.5mcg -] 1 puff IH DAILY inhaler 12/30/17 Cyclobenzaprine HCl 5 mg PO BID #28 tablet 12/30/17 levoFLOXacin [Levaquin -] 250 mg PO DAILY@0600 5 Days #5 tablet 12/30/17 pe: Vital Signs Period Temp Pulse Resp BP Sys/El Pulse Ox Last 24 Hr 97.5 F-97.8 F 63-65 16-26 139-151/80-88 95-96 nad, +JVD rrr s1s2 no mrg cta bl nl eff aaox3 no le e/c/c abd nt nd pos bs no jaundice diaphoresis +dp pt no carotid bruits Current Medications Acetaminophen (Tylenol -) 325 mg PO Q6H PRN PRN Reason: PAIN LEVEL 7 - 10 Last Admin: 01/07/18 02:25 Dose: 325 mg Albuterol Sulfate (Ventolin 0.083% Nebulizer Soln -) 1 amp NEB Q6H PRN PRN Reason: SHORT OF BREATH/WHEEZING Aspirin (Ecotrin -) 81 mg PO DAILY [facility] Last Admin: 01/07/18 09:28 Dose: 81 mg Atorvastatin Calcium (Lipitor -) 10 mg PO HS [facility] Budesonide/Formoterol Fumarate (Symbicort 160/4.5mcg -) 2 puff IH BID [facility] Carvedilol (Coreg -) 25 mg PO BID [facility] Last Admin: 01/07/18 09:27 Dose: 25 mg Clopidogrel Bisulfate (Plavix -) 75 mg PO DAILY [facility] Last Admin: 01/07/18 09:30 Dose: 75 mg Docusate Sodium (Colace -) 100 mg PO BID PRN PRN Reason: CONSTIPATION Furosemide (Lasix Injection -) 40 mg IVPUSH DAILY [facility] Last Admin: 01/07/18 09:28 Dose: 40 mg Oxycodone HCl (Roxicodone -) 10 mg PO Q6H PRN PRN Reason: PAIN LEVEL 7 - 10 Last Admin: 01/07/18 02:25 Dose: 10 mg Zolpidem Tartrate (Ambien -) 10 mg PO HS PRN PRN Reason: INSOMNIA Last Admin: 01/07/18 02:25 Dose: 10 mg ecg: vp packaging echo 06/2015: mild lve, mod-sev dec lvef, mod lae, nl rv size, mild dec rv fcn, mild-mod mr, mild tr, nl avr fcn, rvsp 30-40 echo 06/2016: sev dec lvef, global hk, rv tds, trinity, mod-sev mr, mod tr, rvsp 50- 60 mibi 09/2014: large inf scar, mod anteroapical ischemia, lvef 25% mibi 06/2016 (pers): non-diagnostic STs; large area inferior/inferolateral/ lateral scar; no ischemia; severe LV cavity dilation; global HK with akinesis of inferior/inferolat/lateral allan; EF 16% a/p: 62 m hx copd, cabgx3 2012, bio avr 2012, pad s/p b/l sfa occlusions, syst chf s/p medtronic icd, htn, hld, a-tach, here with back pain, sob. Dyspnea on exertion, acute systolic CHF exacerbation - noted khmer food at bedside, patient endorses eating at home, likely in setting of dietary indiscretions - advised low salt diet - received lasix 40 mg IV, continue lasix 40 mg IV BID - monitor daily weights, Cr, I/O - cont bb, not on ACEI due to hyperkalemia copd: - stable cad/hx of CABG 2012 -no recent angina/ischemia -present sx's not suggestive for angina -cont prior cad med regimen: dapt, statin, bb, ccb bio avr: -nl fcn on echo 06/20 mitral regurgitation: -likely functional MR, mild-mod on echo 06/19, then "mod-severe" when here 06/20 with suspected acute chf and pulm pressures up (though at risk for overestimation of MR severity on that echo report) -valve morphology not described (tethered leaflets?) -no murmur on exam -reassess MR severity on echo as outpt CKD: -stable here pad: -stable, no claudication, cont current cardiac meds s/p icd: -no shocks -routine outpt monitoring htn: -cont home meds hld: -cont statin atach: -minimal episodes seen in past on icd checks -cont bb anemia: -chronic, stable counts here vs baseline -per pmd
[2018-01-07] MEDS ORDERED: oxyCODONE HCL 5 MG TABLET ONE (12:54)
--- NOTE | 2018-01-07 14:45 | CON.PULM ---
Consult Consult Specialty:: PULMONARY Referred by:: Dr. Morales Reason for Consultation:: shortness of breath - History of Present Illness Chief Complaint: shortness of breath History of Present Illness: 62yo male with h/o HTN, DM, CKD, COPD, chronic hypoxic respiratory failure on home O2, CAD s/p CABG, h/o bio AVR, PAD, pulmonary HTN, severe LV systolic dysfunction s/p ICD who presents with worsening shortness of breath x 1 day. Denies any chest pain or palpitations. No fevers, chills or sweats. + nonproductive cough without wheezing. States compliance with his medications. He was recently admitted for CHF exacerbation. He is a long time smoker. CXR showing increased pulmonary vascular congestion, started on diuretics with some improvement in symptoms. - History Source History Provided By: Patient, Medical Record Limitations to Obtaining History: No Limitations - Past Medical History Cardio/Vascular: Yes: AFIB (after CABG briefly; not on AC), CAD, CHF, HTN, Mitral Insufficiency Pulmonary: Yes: COPD, O2 Dependent Endocrine: Yes: Diabetes Mellitus - Past Surgical History Past Surgical History: Yes: AICD, CABG - Alcohol/Substance Use Hx Alcohol Use: No History of Substance Use: reports: None - Smoking History Smoking history: Unknown if ever smoked Have you smoked in the past 12 months: Yes Aproximately how many cigarettes per day: 8 If you are a former smoker, when did you quit?: 06/20/16 - Social History Usual Living Arrangement: With Spouse ADL: Independent History of Recent Travel: No Home Medications - Allergies Allergies/Adverse Reactions: Allergies Allergy/AdvReac Type Severity Reaction Status Date / Time Fish Containing Products Allergy Verified 01/06/18 19:36 codeine AdvReac Intermediate Vomiting Verified 01/06/18 19:36 gabapentin AdvReac Intermediate dizzy Verified 01/06/18 19:36 - Home Medications Home Medications: Ambulatory Orders Aspirin [Aspirin EC] 81 mg PO DAILY 06/18/15 Cilostazol 50 mg PO DAILY 06/18/15 Clopidogrel Bisulfate [Clopidogrel] 75 mg PO DAILY 06/18/15 Simvastatin [Zocor -] 20 mg PO HS 06/18/15 Zolpidem Tartrate [Ambien] 10 mg PO HS 06/18/15 Carvedilol [Coreg -] 25 mg PO BID #60 tablet 06/20/15 Psyllium [Metamucil (Sugar-Free) -] 5.85 gm PO BID #1 bottle 06/02/17 Docusate Sodium [Colace -] 100 mg PO TID #90 capsule 09/22/17 Ferrous Sulfate [Feosol] 325 mg PO DAILY 09/22/17 Furosemide [Lasix -] 80 mg PO DAILY 7 Days #7 tablet 11/21/17 Cholecalciferol (Vitamin D3) [Vitamin D3] 2,000 unit PO DAILY #30 capsule Diclofenac Sodium [Voltaren] 2 gm TP TID PRN #3 tube 12/25/17 Lactulose (Oral Use) [Cephulac -] 20 gm PO BID #1 bottle 12/25/17 Oxycodone HCl/Acetaminophen [Percocet 10-325 mg Tablet] 1 each PO QID PRN #120 tablet MDD 4 12/25/17 Budesonide/Formeterol Fumarate [SYMBICORT 160/4.5mcg -] 1 puff IH DAILY inhaler 12/30/17 Cyclobenzaprine HCl 5 mg PO BID #28 tablet 12/30/17 levoFLOXacin [Levaquin -] 250 mg PO DAILY@0600 5 Days #5 tablet 12/30/17 Family Disease History - Family Disease History Family Disease History: Heart Disease: Father (etoh), Mother (, cva), Other: Brother (alive - Ramírez - hx etoh), Sister (five - alive - no medical problems), Son (two adults - no problems) Review of Systems - Review of Systems Constitutional: reports: Weakness. denies: Chills, Fever Eyes: denies: Recent Change in Vision HENT: denies: Nasal Congestion, Throat Pain Neck: denies: Stiffness, Tenderness Cardiovascular: reports: Shortness of Breath. denies: Chest Pain, Edema, Palpitations Respiratory: reports: Cough, Exercise Intolerance, Orthopnea, SOB on Exertion. denies: Hemoptysis, Wheezing Gastrointestinal: denies: Abdominal Pain, Nausea, Vomiting Genitourinary: denies: Dysuria, Hematuria Neurological: denies: Dizziness, Headache Endocrine: denies: Unexplained Weight Loss Physical Exam Vital Sings: Vital Signs Temperature 97.5 F L 01/07/18 08:29 Pulse Rate 65 01/07/18 12:05 Respiratory Rate 23 H 01/07/18 12:05 Blood Pressure 149/78 01/07/18 12:05 O2 Sat by Pulse Oximetry (%) 95 01/07/18 12:05 Constitutional: Yes: Calm Eyes: Yes: Conjunctiva Clear, EOM Intact HENT: Yes: Atraumatic, Normocephalic Neck: Yes: Supple, Trachea Midline Cardiovascular: Yes: Regular Rate and Rhythm Respiratory: Yes: Rhonchi (basilar) ...Clubbing: No Gastrointestinal: Yes: Normal Bowel Sounds, Soft. No: Tenderness Edema: No Neurological: Yes: Alert, Oriented Labs: CBC, BMP 01/07/18 07:00 01/07/18 07:00 Imaging - Results Chest X-ray: Report Reviewed, Image Reviewed (pulmonary vascular congestion) Problem List - Problems (1) Acute on chronic systolic (congestive) heart failure Code(s): I50.23 - ACUTE ON CHRONIC SYSTOLIC (CONGESTIVE) HEART FAILURE Assessment/Plan Acute on Chronic Systolic Heart Failure Pulmonary HTN CAD s/p CABG h/o bio AVR Atrial Tachycardia Chronic Hypoxic Respiratory Failure COPD PAD HTN DM PAD CKD Smoker - continue lasix - monitor urine output, creatinine - daily weights - O2 to keep Spo2 >90% - inhaled bronchodilators - can defer systemic steroids at this time - rate control with beta christian - LESTER-I/ARB - DVT prophylaxis Thank you for this consult Artis Sands MD
[2018-01-07] MEDS: DOCUSATE SODIUM 100 MG CAPSULE (FP) PO SCH ×2 (15:09→22:13)
[2018-01-07] MEDS: FUROSEMIDE 40 MG/4 ML INJECTABLE VIAL IVPUSH SCH (15:10)
[2018-01-07] MEDS ORDERED: FUROSEMIDE 40 MG/4 ML INJECTABLE VIAL ONE (15:12)
[2018-01-07] MEDS: glipiZIDE 5 MG TABLET (FP) PO SCH (18:38)
--- NOTE | 2018-01-07 21:58 | EKG ---
Test Reason : Blood Pressure : / mmHG Vent. Rate : 070 BPM Atrial Rate : 250 BPM P-R Int : 000 ms QRS Dur : 212 ms QT Int : 542 ms P-R-T Axes : 000 -83 091 degrees QTc Int : 585 ms Ventricular-paced rhythm WITH FREQUENT PREMATURE VENTRICULAR COMPLEXES atrial flutter ABNORMAL ECG WHEN COMPARED WITH ECG OF 29-DEC-2017 12:22, PREMATURE VENTRICULAR COMPLEXES ARE NOW PRESENT VENT. RATE HAS INCREASED BY 3 BPM Confirmed by ALYSSA PECK MD ([id number]) on 01/07/2018 9:58:29 PM Referred By: Confirmed By:ALYSSA PECK MD
[2018-01-07] MEDS ORDERED: ATORVASTATIN CA 10 MG TABLET (FP) PO SCH (22:00)
[2018-01-07] MEDS: POLYETHYLENE GLYCOL 3350 119 GM BTL PO SCH (22:14)
[2018-01-07] MEDS: BUDESONIDE/FORMETEROL FUMARATE 160/4.5 mcg INHALER IH SCH (22:42)
[2018-01-08] MEDS: DOCUSATE SODIUM 100 MG CAPSULE (FP) PO SCH ×3 (06:01→21:29)
[2018-01-08] MEDS: FUROSEMIDE 40 MG/4 ML INJECTABLE VIAL IVPUSH SCH ×2 (06:01→13:41)
[2018-01-08] MEDS: glipiZIDE 5 MG TABLET (FP) PO SCH ×2 (06:03→16:37)
[2018-01-08 07:04] LABS: HEMATOCRIT 27.6 % (35.4-49); HEMOGLOBIN 9.2 GM/dL (11.7-16.9)
[2018-01-08 07:22] LABS: EOS % 4.6 % (0-4.5); MCH 31.2 pg (25.7-33.7); MCHC 33.3 g/dl (32.0-35.9); MEAN CELL VOLUME 93.7 fl (80-96); MEAN PLT VOLUME 7.5 fl (7.5-11.1); MONO % 8.3 % (3.8-10.2); NEUT % 75.1 % (42.8-82.8); PLATELET COUNT 239 K/MM3 (134-434); RBC 2.94 M/mm3 (4.00-5.60); RDW 16.6 % (11.9-15.9); WHITE BLOOD COUNT 8.4 K/mm3 (4.0-10.0)
[2018-01-08 07:30] LABS: ANION GAP 6 MMOL/L (8-16); BLOOD UREA NITROGEN 46 mg/dL (7-18); CALCIUM 8.9 mg/dL (8.5-10.1); CHLORIDE 101 mmol/L (98-107); CO2 32 mmol/L (21-32); GLUCOSE,RANDOM 122 mg/dL (74-106); MAGNESIUM 2.2 mg/dL (1.8-2.4); POTASSIUM 3.9 mmol/L (3.5-5.1); SODIUM 139 mmol/L (136-145)
[2018-01-08] MEDS: ASPIRIN COATED 81 MG TABLET.EC PO SCH (09:15)
[2018-01-08] MEDS: BUDESONIDE/FORMETEROL FUMARATE 160/4.5 mcg INHALER IH SCH ×2 (09:15→21:35)
[2018-01-08] MEDS: POLYETHYLENE GLYCOL 3350 119 GM BTL PO SCH ×2 (09:15→21:30)
[2018-01-08] MEDS: CLOPIDOGREL BISULFATE 75 MG TABLET (FP) PO SCH (09:15)
[2018-01-08] MEDS: CARVEDILOL 25 MG TABLET (FP) PO SCH ×2 (09:15→21:29)
[2018-01-08] MEDS ORDERED: amLODIPine BESYLATE 5 MG TABLET (FP) PO SCH (10:00)
[2018-01-08] MEDS ORDERED: CILOSTAZOL 50 MG TABLET (FP) PO SCH (10:00)
--- NOTE | 2018-01-08 11:27 | PN ---
Progress Note (short form) - Note Progress Note: PULMONARY SUBJECTIVE IMPROVEMENT IN BREATHING LYING IN BED/DENIES CP/COUGH VSS/AFEBTILE PALE/ANICTERIC DIMINISHED B/L BREATH SOUNDS S1S2 SYSTOLIC M BS+ SOFT NONTENDER NO EDEMA LABS/MEDS/NOTES/IMAGES REVIEWED Acute on Chronic Systolic Heart Failure Pulmonary HTN CAD s/p CABG h/o bio AVR Atrial Tachycardia Chronic Hypoxic Respiratory Failure COPD PAD HTN DM PAD CKD Smoker - continue lasix - monitor urine output, creatinine - daily weights - O2 to keep Spo2 >90% - inhaled bronchodilators - can defer systemic steroids at this time - rate control with beta christian - LESTER-I/ARB - DVT proph - Suspect noncompliance is a contributing factor to re-admission Danni FORBES MD
--- NOTE | 2018-01-08 11:38 | PN ---
Progress Note, Physician Chief Complaint: Pt lying in bed in no acute distress. breathing slowly improving. reports he's feeling depressed, has been depression x 1 month, reduced po intake, reduced energy levels. reports he has not informed PCP. Denies any chest pain, n/v/d, unilateral weakness. - Current Medication List Current Medications: Active Medications Acetaminophen (Tylenol -) 325 mg PO Q6H PRN PRN Reason: PAIN LEVEL 7 - 10 Last Admin: 01/07/18 20:49 Dose: 325 mg Albuterol Sulfate (Ventolin 0.083% Nebulizer Soln -) 1 amp NEB Q6H PRN PRN Reason: SHORT OF BREATH/WHEEZING Aspirin (Ecotrin -) 81 mg PO DAILY [facility] Last Admin: 01/08/18 09:15 Dose: 81 mg Atorvastatin Calcium (Lipitor -) 20 mg PO HS [facility] Budesonide/Formoterol Fumarate (Symbicort 160/4.5mcg -) 2 puff IH BID [facility] Last Admin: 01/08/18 09:15 Dose: 2 inhaler Carvedilol (Coreg -) 25 mg PO BID [facility] Last Admin: 01/08/18 09:15 Dose: 25 mg Clopidogrel Bisulfate (Plavix -) 75 mg PO DAILY [facility] Last Admin: 01/08/18 09:15 Dose: 75 mg Docusate Sodium (Colace -) 100 mg PO TID [facility] Last Admin: 01/08/18 06:01 Dose: 100 mg Furosemide (Lasix Injection -) 40 mg IVPUSH BID@0600,1400 [facility] Last Admin: 01/08/18 06:01 Dose: 40 mg Glipizide (Glucotrol -) 5 mg PO BID@0700,1630 [facility] Last Admin: 01/08/18 06:03 Dose: 5 mg Oxycodone HCl (Roxicodone -) 10 mg PO Q6H PRN PRN Reason: PAIN LEVEL 7 - 10 Last Admin: 01/07/18 20:40 Dose: 10 mg Polyethylene Glycol (Miralax (For Daily Use) -) 17 gm PO BID [facility] Last Admin: 01/08/18 09:15 Dose: 17 gm Zolpidem Tartrate (Ambien -) 10 mg PO HS PRN PRN Reason: INSOMNIA Last Admin: 01/07/18 22:13 Dose: 10 mg - Objective Vital Signs: Vital Signs Temperature 97.8 F 10/05/18 10:00 Pulse Rate 64 01/08/18 10:00 Respiratory Rate 18 01/08/18 10:00 Blood Pressure 134/77 01/08/18 10:00 O2 Sat by Pulse Oximetry (%) 98 01/08/18 10:00 Constitutional: Yes: Well Nourished, No Distress, Calm Cardiovascular: Yes: Regular Rate and Rhythm Respiratory: Yes: Regular, Diminished, On Nasal O2, Rales (bibasilar), SOB on Exertion. No: Accessory Muscle Use, Tachypnea, Wheezes Gastrointestinal: Yes: WNL, Normal Bowel Sounds, Soft. No: Distention, Tenderness Genitourinary: Yes: WNL Edema: No Neurological: Yes: WNL, Alert, Oriented Psychiatric: Yes: Other (appears depressed) Labs: CBC, BMP 01/08/18 06:00 01/08/18 06:00 INR, PTT INR 1.23 (0.83-1.09) H 01/06/18 22:00 Assessment/Plan (1) Acute exacerbation of CHF (congestive heart failure) Assessment/Plan: improving due to dietary noncompliance IV lasix daily weights O2 as needed low Na diet advise smoking cessation dietary counseling- material planning analyst consulted discussed with pt the importance of low na diet, needs reinforcement cardiology following Code(s): I50.9 - HEART FAILURE, UNSPECIFIED Qualifiers: Heart failure type: systolic Qualified Code(s): I50.23 - Acute on chronic systolic (congestive) heart failure (2) Shortness of breath Assessment/Plan: as above 2/2 chf exacerbation continue O2 via nc pulm/cardiology following as above Code(s): R06.02 - SHORTNESS OF BREATH (3) CHF (congestive heart failure) Assessment/Plan: s/p icd appears at dry weight 192-196lbs as above Code(s): I50.9 - HEART FAILURE, UNSPECIFIED (4) COPD (chronic obstructive pulmonary disease) Assessment/Plan: chronic, O2 dependent continue nebs pulm following Code(s): J44.9 - CHRONIC OBSTRUCTIVE PULMONARY DISEASE, UNSPECIFIED (5) Chronic kidney disease (CKD) Assessment/Plan: at baseline monitor Code(s): N18.9 - CHRONIC KIDNEY DISEASE, UNSPECIFIED Qualifiers: Chronic kidney disease stage: stage 3 (moderate) Qualified Code(s): N18.3 - Chronic kidney disease, stage 3 (moderate) (6) CAD (coronary artery disease) Assessment/Plan: s/p cabgx 3 continue asa/statin/plavix Code(s): I25.10 - ATHSCL HEART DISEASE OF [place] CORONARY ARTERY W/O ANG PCTRS Qualifiers: [place] vs. transplanted heart: [place] heart Associated angina: without angina (7) Diabetes Assessment/Plan: chronic bgm glipizide monitor Code(s): E11.9 - TYPE 2 DIABETES MELLITUS WITHOUT COMPLICATIONS Qualifiers: Diabetes mellitus type: type 2 Diabetes mellitus terminal worker insulin use: with terminal worker use Diabetes mellitus complication status: with kidney complications Diabetes mellitus complication detail: with chronic kidney disease Chronic kidney disease stage: stage 3 (moderate) Qualified Code(s): E11.22 - Type 2 diabetes mellitus with diabetic chronic kidney disease; N18.3 - Chronic kidney disease, stage 3 (moderate); 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 (8) HTN (hypertension) Assessment/Plan: controlled continue carvedilol meds reconciled with pt's pharmacy monitor Code(s): I10 - ESSENTIAL (PRIMARY) HYPERTENSION Qualifiers: Hypertension type: essential hypertension Qualified Code(s): I10 - Essential (primary) hypertension (10) Osteoarthritis, multiple sites Assessment/Plan: stable Code(s): M15.9 - POLYOSTEOARTHRITIS, UNSPECIFIED Qualifiers: Osteoarthritis type: primary Qualified Code(s): M15.0 - Primary generalized (osteo)arthritis (11) Low back pain Assessment/Plan: chronic PT analgesics prn Code(s): M54.5 - LOW BACK PAIN Qualifiers: Chronicity: chronic (12) Anemia Assessment/Plan: chronic hg/hct stable monitor Code(s): D64.9 - ANEMIA, UNSPECIFIED Qualifiers: Anemia type: due to chronic kidney disease Chronic kidney disease stage: stage 3 (moderate) Qualified Code(s): N18.3 - Chronic kidney disease, stage 3 (moderate); D63.1 - Anemia in chronic kidney disease (13) Peripheral vascular disease Assessment/Plan: pad, stable continue statin/plavix/asa Code(s): I73.9 - PERIPHERAL VASCULAR DISEASE, UNSPECIFIED (14) Depression Assessment/Plan: pt verbalized depressed mood x 1 month along with reduced po intake, lack of energy denies SI/HI, no overt triggers, suspect 2/2 chronic medication conditions Wellbutrin xl 150 daily started, case discussed with PCP , agreeable monitor closely for adverse effects Code(s): F32.9 - MAJOR DEPRESSIVE DISORDER, SINGLE EPISODE, UNSPECIFIED Qualifiers: Depression Type: major depressive disorder Major depression recurrence: unspecified whether recurrent Active/Remission status: currently active Psychotic features: without psychotic features Discharge: Home when cardiology cleared
[2018-01-08] MEDS: oxyCODONE HCL 5 MG TABLET PO PRN ×2 (12:26→20:48)
--- NOTE | 2018-01-08 12:39 | PN ---
Progress Note (short form) - Note Progress Note: cc: dyspnea on exertion s: sob improving, walked down the [place] with less dyspnea. no chest pain, palps, orthopnea, PND Current Medications Acetaminophen (Tylenol -) 325 mg PO Q6H PRN PRN Reason: PAIN LEVEL 7 - 10 Last Admin: 01/07/18 20:49 Dose: 325 mg Albuterol Sulfate (Ventolin 0.083% Nebulizer Soln -) 1 amp NEB Q6H PRN PRN Reason: SHORT OF BREATH/WHEEZING Aspirin (Ecotrin -) 81 mg PO DAILY [facility] Last Admin: 01/08/18 09:15 Dose: 81 mg Atorvastatin Calcium (Lipitor -) 20 mg PO HS [facility] Budesonide/Formoterol Fumarate (Symbicort 160/4.5mcg -) 2 puff IH BID [facility] Last Admin: 01/08/18 09:15 Dose: 2 inhaler Bupropion HCl (Wellbutrin Xl -) 150 mg PO DAILY [facility] Last Admin: 01/08/18 12:25 Dose: 150 mg Carvedilol (Coreg -) 25 mg PO BID [facility] Last Admin: 01/08/18 09:15 Dose: 25 mg Clopidogrel Bisulfate (Plavix -) 75 mg PO DAILY [facility] Last Admin: 01/08/18 09:15 Dose: 75 mg Docusate Sodium (Colace -) 100 mg PO TID [facility] Last Admin: 01/08/18 06:01 Dose: 100 mg Furosemide (Lasix Injection -) 40 mg IVPUSH BID@0600,1400 [facility] Last Admin: 01/08/18 06:01 Dose: 40 mg Glipizide (Glucotrol -) 5 mg PO BID@0700,1630 [facility] Last Admin: 01/08/18 06:03 Dose: 5 mg Oxycodone HCl (Roxicodone -) 10 mg PO Q6H PRN PRN Reason: PAIN LEVEL 7 - 10 Last Admin: 01/08/18 12:26 Dose: 10 mg Polyethylene Glycol (Miralax (For Daily Use) -) 17 gm PO BID [facility] Last Admin: 01/08/18 09:15 Dose: 17 gm Zolpidem Tartrate (Ambien -) 10 mg PO HS PRN PRN Reason: INSOMNIA Last Admin: 01/07/18 22:13 Dose: 10 mg pe: Vital Signs Period Temp Pulse Resp BP Sys/El Pulse Ox Last 24 Hr 97.4 F-98.3 F 63-65 16-18 127-157/63-91 98-100 nad, +JVD rrr s1s2 no mrg cta bl nl eff aaox3 no le e/c/c abd nt nd pos bs no jaundice diaphoresis +dp pt no carotid bruits ecg: vp strategy, sinus echo 06/2015: mild lve, mod-sev dec lvef, mod lae, nl rv size, mild dec rv fcn, mild-mod mr, mild tr, nl avr fcn, rvsp 30-40 echo 06/2016: sev dec lvef, global hk, rv tds, trinity, mod-sev mr, mod tr, rvsp 50- 60 mibi 09/2014: large inf scar, mod anteroapical ischemia, lvef 25% mibi 06/2016 (pers): non-diagnostic STs; large area inferior/inferolateral/ lateral scar; no ischemia; severe LV cavity dilation; global HK with akinesis of inferior/inferolat/lateral allan; EF 16% a/p: 62 m hx copd, cabgx3 2012, bio avr 2012, pad s/p b/l sfa occlusions, syst chf s/p medtronic icd, htn, hld, a-tach, here with back pain, sob. Dyspnea on exertion, acute systolic CHF exacerbation - noted stateless food at bedside, patient endorses eating at home, likely in setting of dietary indiscretions - advised low salt diet - received lasix 40 mg IV, continue lasix 40 mg IV BID for now, sob improving - may be able to transition to PO tomorrow - was on furosemide 80 mg daily at home - agree with etl lead consult - monitor daily weights, Cr, I/O - cont bb, not on ACEI due to hyperkalemia copd: - stable cad/hx of CABG 2012 -no recent angina/ischemia -present sx's not suggestive for angina -cont prior cad med regimen: dapt, statin, bb, ccb bio avr: -nl fcn on echo 06/20 mitral regurgitation: -likely functional MR, mild-mod on echo 06/19, then "mod-severe" when here 06/20 with suspected acute chf and pulm pressures up (though at risk for overestimation of MR severity on that echo report) -valve morphology not described (tethered leaflets?) -no murmur on exam -reassess MR severity on echo as outpt CKD: -stable here pad: -stable, no claudication, cont current cardiac meds s/p icd: -no shocks -routine outpt monitoring htn: -cont home meds hld: -cont statin atach: -minimal episodes seen in past on icd checks -cont bb anemia: -chronic, stable counts here vs baseline -per pmd
[2018-01-08] MEDS ORDERED: PT OWN MED DRAWER 7, Y5N ONE (20:44)
[2018-01-08] MEDS: ACETAMINOPHEN 325 MG TABLET (FP) PO PRN (20:49)
[2018-01-08] MEDS: ZOLPIDEM TARTRATE 5 MG TABLET PO PRN (21:29)
[2018-01-08] MEDS: ATORVASTATIN CA 20 MG TABLET (FP) PO SCH (21:29)
[2018-01-09] MEDS: FUROSEMIDE 40 MG/4 ML INJECTABLE VIAL IVPUSH SCH ×2 (05:50→13:47)
[2018-01-09] MEDS: DOCUSATE SODIUM 100 MG CAPSULE (FP) PO SCH ×3 (05:51→21:02)
[2018-01-09] MEDS: oxyCODONE HCL 5 MG TABLET PO PRN ×3 (05:57→18:34)
[2018-01-09] MEDS: ACETAMINOPHEN 325 MG TABLET (FP) PO PRN ×3 (05:57→18:35)
[2018-01-09] MEDS: glipiZIDE 5 MG TABLET (FP) PO SCH ×2 (06:00→17:07)
[2018-01-09 07:00] LABS: BASO % 0.9 % (0-2.0); EOS % 4.5 % (0-4.5); HEMATOCRIT 26.1 % (35.4-49); HEMOGLOBIN 8.8 GM/dL (11.7-16.9); LYMPH % 10.9 % (8-40); MCH 31.4 pg (25.7-33.7); MCHC 33.6 g/dl (32.0-35.9); MEAN CELL VOLUME 93.2 fl (80-96); MEAN PLT VOLUME 7.6 fl (7.5-11.1); MONO % 8.6 % (3.8-10.2); NEUT % 75.1 % (42.8-82.8); PLATELET COUNT 236 K/MM3 (134-434); RDW 16.2 % (11.9-15.9); WHITE BLOOD COUNT 10.2 K/mm3 (4.0-10.0)
[2018-01-09 07:37] LABS: ANION GAP 6 MMOL/L (8-16); BLOOD UREA NITROGEN 46 mg/dL (7-18); CALCIUM 8.6 mg/dL (8.5-10.1); CHLORIDE 100 mmol/L (98-107); CO2 32 mmol/L (21-32); CREATININE 2.2 mg/dL (0.55-1.3); GLUCOSE,RANDOM 86 mg/dL (74-106); MAGNESIUM 2.1 mg/dL (1.8-2.4); POTASSIUM 4.1 mmol/L (3.5-5.1); SODIUM 138 mmol/L (136-145)
[2018-01-09] MEDS: CLOPIDOGREL BISULFATE 75 MG TABLET (FP) PO SCH (09:58)
[2018-01-09] MEDS: CARVEDILOL 25 MG TABLET (FP) PO SCH ×2 (09:58→21:03)
[2018-01-09] MEDS: POLYETHYLENE GLYCOL 3350 119 GM BTL PO SCH ×2 (09:58→21:02)
[2018-01-09] MEDS: ASPIRIN COATED 81 MG TABLET.EC PO SCH (09:58)
[2018-01-09] MEDS: BUDESONIDE/FORMETEROL FUMARATE 160/4.5 mcg INHALER IH SCH ×2 (09:58→21:02)
--- NOTE | 2018-01-09 10:00 | PN ---
Progress Note (short form) - Note Progress Note: cc: dyspnea on exertion s: sob improving. no chest pain, palps, orthopnea, PND Current Medications Acetaminophen (Tylenol -) 325 mg PO Q6H PRN PRN Reason: PAIN LEVEL 7 - 10 Last Admin: 01/09/18 05:57 Dose: 325 mg Albuterol Sulfate (Ventolin 0.083% Nebulizer Soln -) 1 amp NEB Q6H PRN PRN Reason: SHORT OF BREATH/WHEEZING Aspirin (Ecotrin -) 81 mg PO DAILY [facility] Last Admin: 01/08/18 09:15 Dose: 81 mg Atorvastatin Calcium (Lipitor -) 20 mg PO HS [facility] Last Admin: 01/08/18 21:29 Dose: 20 mg Budesonide/Formoterol Fumarate (Symbicort 160/4.5mcg -) 2 puff IH BID [facility] Last Admin: 01/08/18 21:35 Dose: 2 inhaler Bupropion HCl (Wellbutrin Xl -) 150 mg PO DAILY [facility] Last Admin: 01/08/18 12:25 Dose: 150 mg Carvedilol (Coreg -) 25 mg PO BID [facility] Last Admin: 01/08/18 21:29 Dose: 25 mg Clopidogrel Bisulfate (Plavix -) 75 mg PO DAILY [facility] Last Admin: 01/08/18 09:15 Dose: 75 mg Docusate Sodium (Colace -) 100 mg PO TID [facility] Last Admin: 01/09/18 05:51 Dose: 100 mg Furosemide (Lasix Injection -) 40 mg IVPUSH BID@0600,1400 [facility] Last Admin: 01/09/18 05:50 Dose: 40 mg Glipizide (Glucotrol -) 5 mg PO BID@0700,1630 [facility] Last Admin: 01/09/18 06:00 Dose: 5 mg Oxycodone HCl (Roxicodone -) 10 mg PO Q6H PRN PRN Reason: PAIN LEVEL 7 - 10 Last Admin: 01/09/18 05:57 Dose: 10 mg Polyethylene Glycol (Miralax (For Daily Use) -) 17 gm PO BID [facility] Last Admin: 01/08/18 21:30 Dose: 17 gm Zolpidem Tartrate (Ambien -) 10 mg PO HS PRN PRN Reason: INSOMNIA Last Admin: 01/08/18 21:29 Dose: 10 mg pe: Vital Signs Period Temp Pulse Resp BP Sys/El Pulse Ox Last 24 Hr 97.6 F-98.6 F 61-65 18-18 122-160/64-99 98-98 nad, +JVD rrr s1s2 no mrg cta bl nl eff aaox3 no le e/c/c abd nt nd pos bs no jaundice diaphoresis +dp pt no carotid bruits 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: 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, sinus echo 06/2015: mild lve, mod-sev dec lvef, mod lae, nl rv size, mild dec rv fcn, mild-mod mr, mild tr, nl avr fcn, rvsp 30-40 echo 06/2016: sev dec lvef, global hk, rv tds, trinity, mod-sev mr, mod tr, rvsp 50- 60 mibi 09/2014: large inf scar, mod anteroapical ischemia, lvef 25% mibi 06/2016 (pers): non-diagnostic STs; large area inferior/inferolateral/ lateral scar; no ischemia; severe LV cavity dilation; global HK with akinesis of inferior/inferolat/lateral allan; EF 16% a/p: 62 m hx copd, cabgx3 2012, bio avr 2012, pad s/p b/l sfa occlusions, syst chf s/p medtronic icd, htn, hld, a-tach, here with back pain, sob. Dyspnea on exertion, acute systolic CHF exacerbation - noted uzbek food at bedside while in ER, patient endorses eating at home, likely in setting of dietary indiscretions - advised low salt diet - weight decreased, 191 lbs (was 190 lbs on last dc), Cr trending up, near baseline - was on furosemide 80 mg daily at home - SOB improving, still has JVD continue lasix IV 40 mg BID today - agree with gin feeder consult - monitor daily weights, Cr, I/O - cont bb, not on ACEI due to hyperkalemia copd: - stable cad/hx of CABG 2012 -no recent angina/ischemia -present sx's not suggestive for angina -cont prior cad med regimen: dapt, statin, bb, ccb bio avr: -nl fcn on echo 06/20 mitral regurgitation: -likely functional MR, mild-mod on echo 06/19, then "mod-severe" when here 06/20 with suspected acute chf and pulm pressures up (though at risk for overestimation of MR severity on that echo report) -valve morphology not described (tethered leaflets?) -no murmur on exam -reassess MR severity on echo as outpt CKD: -stable here pad: -stable, no claudication, cont current cardiac meds s/p icd: -no shocks -routine outpt monitoring htn: -cont home meds hld: -cont statin atach: -minimal episodes seen in past on icd checks -cont bb anemia: -chronic, stable counts here vs baseline -per pmd
--- NOTE | 2018-01-09 12:48 | PN ---
Progress Note, Physician History of Present Illness: Feeling better, breathing less labored today. - Current Medication List Current Medications: Active Medications Acetaminophen (Tylenol -) 325 mg PO Q6H PRN PRN Reason: PAIN LEVEL 7 - 10 Last Admin: 01/09/18 11:40 Dose: 325 mg Albuterol Sulfate (Ventolin 0.083% Nebulizer Soln -) 1 amp NEB Q6H PRN PRN Reason: SHORT OF BREATH/WHEEZING Aspirin (Ecotrin -) 81 mg PO DAILY [facility] Last Admin: 01/09/18 09:58 Dose: 81 mg Atorvastatin Calcium (Lipitor -) 20 mg PO HS [facility] Last Admin: 01/08/18 21:29 Dose: 20 mg Budesonide/Formoterol Fumarate (Symbicort 160/4.5mcg -) 2 puff IH BID [facility] Last Admin: 01/09/18 09:58 Dose: 2 puff Bupropion HCl (Wellbutrin Xl -) 150 mg PO DAILY [facility] Last Admin: 01/09/18 09:58 Dose: 150 mg Carvedilol (Coreg -) 25 mg PO BID [facility] Last Admin: 01/09/18 09:58 Dose: 25 mg Clopidogrel Bisulfate (Plavix -) 75 mg PO DAILY [facility] Last Admin: 01/09/18 09:58 Dose: 75 mg Docusate Sodium (Colace -) 100 mg PO TID [facility] Last Admin: 01/09/18 05:51 Dose: 100 mg Furosemide (Lasix Injection -) 40 mg IVPUSH BID@0600,1400 [facility] Last Admin: 01/09/18 05:50 Dose: 40 mg Glipizide (Glucotrol -) 5 mg PO BID@0700,1630 [facility] Last Admin: 01/09/18 06:00 Dose: 5 mg Oxycodone HCl (Roxicodone -) 10 mg PO Q6H PRN PRN Reason: PAIN LEVEL 7 - 10 Last Admin: 01/09/18 11:39 Dose: 10 mg Polyethylene Glycol (Miralax (For Daily Use) -) 17 gm PO BID [facility] Last Admin: 01/09/18 09:58 Dose: 17 gm Zolpidem Tartrate (Ambien -) 10 mg PO HS PRN PRN Reason: INSOMNIA Last Admin: 01/08/18 21:29 Dose: 10 mg - Objective Vital Signs: Vital Signs Temperature 98.2 F 10/06/18 10:00 Pulse Rate 63 01/09/18 10:00 Respiratory Rate 18 01/09/18 10:00 Blood Pressure 119/73 01/09/18 10:00 O2 Sat by Pulse Oximetry (%) 98 01/09/18 10:00 Constitutional: Yes: No Distress, Calm Cardiovascular: Yes: Regular Rate and Rhythm, S1, S2. No: Murmur Respiratory: Yes: Regular, Diminished (bases) Gastrointestinal: Yes: Normal Bowel Sounds, Soft. No: Distention, Tenderness Edema: No Labs: CBC, BMP 01/09/18 06:00 01/09/18 06:00 INR, PTT INR 1.23 (0.83-1.09) H 01/06/18 22:00 Assessment/Plan Current Active Problems COPD (chronic obstructive pulmonary disease) (Acute) Depression (Acute) Shortness of breath (Acute) CHF (congestive heart failure) (Chronic) CRI -cont IV diuresis -cont breathing treatments
[2018-01-09] MEDS ORDERED: PT OWN MED DRAWER 7, Y5N ONE (20:55)
[2018-01-09] MEDS: ZOLPIDEM TARTRATE 5 MG TABLET PO PRN (21:01)
[2018-01-09] MEDS: ATORVASTATIN CA 20 MG TABLET (FP) PO SCH (21:02)
[2018-01-10] MEDS ORDERED: oxyCODONE HCL 5 MG TABLET PO PRN (02:44)
[2018-01-10] MEDS: DOCUSATE SODIUM 100 MG CAPSULE (FP) PO SCH ×3 (05:30→21:44)
[2018-01-10] MEDS: FUROSEMIDE 40 MG/4 ML INJECTABLE VIAL IVPUSH SCH (05:30)
[2018-01-10] MEDS: glipiZIDE 5 MG TABLET (FP) PO SCH ×2 (06:18→16:12)
[2018-01-10 07:16] LABS: BASO % 0.7 % (0-2.0); EOS % 4.2 % (0-4.5); HEMATOCRIT 26.7 % (35.4-49); MCH 31.5 pg (25.7-33.7); MCHC 33.6 g/dl (32.0-35.9); MEAN CELL VOLUME 93.8 fl (80-96); MEAN PLT VOLUME 7.6 fl (7.5-11.1); MONO % 7.1 % (3.8-10.2); PLATELET COUNT 224 K/MM3 (134-434); RBC 2.85 M/mm3 (4.00-5.60); RDW 16.3 % (11.9-15.9); WHITE BLOOD COUNT 10.5 K/mm3 (4.0-10.0)
[2018-01-10 07:52] LABS: ALBUMIN 2.9 g/dl (3.4-5.0); ALK PHOS 101 U/L (45-117); ANION GAP 7 MMOL/L (8-16); BILIRUBIN,TOTAL 0.4 mg/dL (0.2-1); BLOOD UREA NITROGEN 55 mg/dL (7-18); CALCIUM 8.6 mg/dL (8.5-10.1); CHLORIDE 98 mmol/L (98-107); CO2 33 mmol/L (21-32); CREATININE 2.5 mg/dL (0.55-1.3); GLUCOSE,RANDOM 125 mg/dL (74-106); POTASSIUM 4.4 mmol/L (3.5-5.1); SGOT/AST 12 U/L (15-37); SGPT/ALT 7 U/L (13-61); SODIUM 138 mmol/L (136-145); TOT PROT 6.2 g/dl (6.4-8.2)
[2018-01-10] MEDS: ALBUTEROL SO4 0.083% IH SOL 2.5 MG/3 ML VIAL.NEB. NEB PRN (09:20)
[2018-01-10] MEDS ORDERED: methylPREDNISolone NA SUCC 1000 MG/8 ML VIAL IVPB SCH (10:00)
[2018-01-10] MEDS ORDERED: methylPREDNISolone NA SUCC 40 MG/1 ML VIAL IVPB SCH (10:00)
--- NOTE | 2018-01-10 10:01 | PN ---
Progress Note (short form) - Note Progress Note: cc: dyspnea on exertion s: episode of sob this am, improved with breathing treatment. denies sob when walking to bathroom. no chest pain, palps, orthopnea, PND Current Medications Acetaminophen (Tylenol -) 325 mg PO Q6H PRN PRN Reason: PAIN LEVEL 7 - 10 Last Admin: 01/09/18 18:35 Dose: 325 mg Albuterol Sulfate (Ventolin 0.083% Nebulizer Soln -) 1 amp NEB Q6H PRN PRN Reason: SHORT OF BREATH/WHEEZING Last Admin: 01/10/18 09:20 Dose: 1 amp Aspirin (Ecotrin -) 81 mg PO DAILY [facility] Last Admin: 01/09/18 09:58 Dose: 81 mg Atorvastatin Calcium (Lipitor -) 20 mg PO HS [facility] Last Admin: 01/09/18 21:02 Dose: 20 mg Budesonide/Formoterol Fumarate (Symbicort 160/4.5mcg -) 2 puff IH BID [facility] Last Admin: 01/09/18 21:02 Dose: 2 puff Bupropion HCl (Wellbutrin Xl -) 150 mg PO DAILY [facility] Last Admin: 01/09/18 09:58 Dose: 150 mg Carvedilol (Coreg -) 25 mg PO BID [facility] Last Admin: 01/09/18 21:03 Dose: 25 mg Clopidogrel Bisulfate (Plavix -) 75 mg PO DAILY [facility] Last Admin: 01/09/18 09:58 Dose: 75 mg Docusate Sodium (Colace -) 100 mg PO TID [facility] Last Admin: 01/10/18 05:30 Dose: 100 mg Furosemide (Lasix Injection -) 40 mg IVPUSH BID@0600,1400 [facility] Last Admin: 01/10/18 05:30 Dose: 40 mg Glipizide (Glucotrol -) 5 mg PO BID@0700,1630 [facility] Last Admin: 01/10/18 06:18 Dose: 5 mg Methylprednisolone Sodium Succinate (Solu-Medrol -) 80 mg IVPB BID [facility] Oxycodone HCl (Roxicodone -) 10 mg PO Q6H PRN PRN Reason: PAIN LEVEL 7 - 10 Polyethylene Glycol (Miralax (For Daily Use) -) 17 gm PO BID [facility] Last Admin: 01/09/18 21:02 Dose: 17 gm Zolpidem Tartrate (Ambien -) 10 mg PO HS PRN PRN Reason: INSOMNIA pe: Vital Signs Period Temp Pulse Resp BP Sys/El Pulse Ox Last 24 Hr 97.6 F-98.2 F 60-90 18-20 117-158/58-73 100 nad, no jvd rrr s1s2 no mrg cta bl nl eff aaox3 no le e/c/c abd nt nd pos bs no jaundice diaphoresis +dp pt no carotid bruits no edema ecg: vp rheumatology, sinus echo 06/2015: mild lve, mod-sev dec lvef, mod lae, nl rv size, mild dec rv fcn, mild-mod mr, mild tr, nl avr fcn, rvsp 30-40 echo 06/2016: sev dec lvef, global hk, rv tds, trinity, mod-sev mr, mod tr, rvsp 50- 60 mibi 09/2014: large inf scar, mod anteroapical ischemia, lvef 25% mibi 06/2016 (pers): non-diagnostic STs; large area inferior/inferolateral/ lateral scar; no ischemia; severe LV cavity dilation; global HK with akinesis of inferior/inferolat/lateral allan; EF 16% a/p: 62 m hx copd, cabgx3 2012, bio avr 2012, pad s/p b/l sfa occlusions, syst chf s/p medtronic icd, htn, hld, a-tach, here with back pain, sob. Dyspnea on exertion, acute systolic CHF exacerbation - noted bulgarian food at bedside while in ER, patient endorses eating at home, likely in setting of dietary indiscretions - advised low salt diet, agree with lipcoat sprayer consult - weight decreased, 191 lbs (was 190 lbs on last dc), Cr trending up, near baseline - was on furosemide 80 mg daily at home - 01/09 SOB improving, still has JVD continue lasix IV 40 mg BID - 01/10 Cr 2.2 ->2.5, hold PM lasix dose and reevaluate in AM - monitor daily weights, Cr, I/O - cont bb, not on ACEI due to hyperkalemia copd: - stable cad/hx of CABG 2012 -no recent angina/ischemia -present sx's not suggestive for angina -cont prior cad med regimen: dapt, statin, bb, ccb bio avr: -nl fcn on echo 06/20 mitral regurgitation: -likely functional MR, mild-mod on echo 06/19, then "mod-severe" when here 06/20 with suspected acute chf and pulm pressures up (though at risk for overestimation of MR severity on that echo report) -valve morphology not described (tethered leaflets?) -no murmur on exam -reassess MR severity on echo as outpt CKD: -stable here pad: -stable, no claudication, cont current cardiac meds s/p icd: -no shocks -routine outpt monitoring htn: -cont home meds hld: -cont statin atach: -minimal episodes seen in past on icd checks -cont bb anemia: -chronic, stable counts here vs baseline -per pmd
[2018-01-10] MEDS ORDERED: PT OWN MED DRAWER 7, Y5N ONE (10:29)
[2018-01-10] MEDS: ASPIRIN COATED 81 MG TABLET.EC PO SCH (10:30)
[2018-01-10] MEDS: CLOPIDOGREL BISULFATE 75 MG TABLET (FP) PO SCH (10:30)
[2018-01-10] MEDS: CARVEDILOL 25 MG TABLET (FP) PO SCH ×2 (10:30→21:44)
[2018-01-10] MEDS: BUDESONIDE/FORMETEROL FUMARATE 160/4.5 mcg INHALER IH SCH ×2 (10:30→21:44)
[2018-01-10] MEDS: POLYETHYLENE GLYCOL 3350 119 GM BTL PO SCH ×2 (10:31→21:44)
[2018-01-10] MEDS: ACETAMINOPHEN 325 MG TABLET (FP) PO PRN ×2 (10:40→20:14)
[2018-01-10] MEDS ORDERED: traMADol HCL 50 MG TABLET PO PRN (10:45)
--- NOTE | 2018-01-10 10:51 | PN ---
Progress Note, Physician History of Present Illness: Patient notes increased shortness of breath which started overnight. Lying in bed feels OK (although seems somewhat short of breath right now), but has increased shortness of breath when getting out of bed. Using Symbicort, so to get a breathing treatment as well. - Current Medication List Current Medications: Active Medications Acetaminophen (Tylenol -) 325 mg PO Q6H PRN PRN Reason: PAIN LEVEL 7 - 10 Last Admin: 01/10/18 10:40 Dose: 325 mg Albuterol Sulfate (Ventolin 0.083% Nebulizer Soln -) 1 amp NEB Q6H PRN PRN Reason: SHORT OF BREATH/WHEEZING Last Admin: 01/10/18 09:20 Dose: 1 amp Aspirin (Ecotrin -) 81 mg PO DAILY [facility] Last Admin: 01/10/18 10:30 Dose: 81 mg Atorvastatin Calcium (Lipitor -) 20 mg PO HS [facility] Last Admin: 01/09/18 21:02 Dose: 20 mg Budesonide/Formoterol Fumarate (Symbicort 160/4.5mcg -) 2 puff IH BID [facility] Last Admin: 01/10/18 10:30 Dose: 2 puff Bupropion HCl (Wellbutrin Xl -) 150 mg PO DAILY [facility] Last Admin: 01/10/18 10:30 Dose: 150 mg Carvedilol (Coreg -) 25 mg PO BID [facility] Last Admin: 01/10/18 10:30 Dose: 25 mg Clopidogrel Bisulfate (Plavix -) 75 mg PO DAILY [facility] Last Admin: 01/10/18 10:30 Dose: 75 mg Docusate Sodium (Colace -) 100 mg PO TID [facility] Last Admin: 01/10/18 05:30 Dose: 100 mg Furosemide (Lasix Injection -) 40 mg IVPUSH BID@0600,1400 [facility] Last Admin: 01/10/18 05:30 Dose: 40 mg Glipizide (Glucotrol -) 5 mg PO BID@0700,1630 [facility] Last Admin: 01/10/18 06:18 Dose: 5 mg Methylprednisolone Sodium Succinate (Solu-Medrol -) 80 mg IVPB BID [facility] Polyethylene Glycol (Miralax (For Daily Use) -) 17 gm PO BID [facility] Last Admin: 01/10/18 10:31 Dose: 17 gm Tramadol HCl (Ultram -) 50 mg PO Q6H PRN PRN Reason: PAIN LEVEL 1-5 Zolpidem Tartrate (Ambien -) 10 mg PO HS PRN PRN Reason: INSOMNIA - Objective Vital Signs: Vital Signs Temperature 97.6 F 01/10/18 06:15 Pulse Rate 90 01/10/18 06:15 Respiratory Rate 20 01/10/18 06:15 Blood Pressure 158/58 L 01/10/18 06:15 O2 Sat by Pulse Oximetry (%) 100 01/09/18 20:44 Constitutional: Yes: No Distress Neck: Yes: Supple, Trachea Midline Cardiovascular: Yes: Regular Rate and Rhythm, S1, S2. No: Murmur Respiratory: Yes: Diminished (bilaterally) Gastrointestinal: Yes: Normal Bowel Sounds, Soft. No: Distention, Tenderness Edema: No Neurological: Yes: Alert, Oriented Labs: CBC, BMP 01/10/18 06:00 01/10/18 06:00 INR, PTT INR 1.23 (0.83-1.09) H 01/06/18 22:00 Assessment/Plan Current Active Problems COPD (chronic obstructive pulmonary disease) (Acute) Depression (Acute) Shortness of breath (Acute) CHF (congestive heart failure) (Chronic) CRI -cont IV diuresis -with increased shortness of breath, will start solumedrol (component now of COPD?) and check CXR, continue breathing treatments
[2018-01-10] MEDS: oxyCODONE HCL 5 MG TABLET PO PRN ×2 (11:04→20:13)
--- NOTE | 2018-01-10 11:54 | PN ---
Progress Note (short form) - Note Progress Note: PULMONARY COMPLAINING OF SOB THIS AM DENIES CP/COUGH VSS/AFEBTILE PALE/ANICTERIC DIMINISHED B/L BREATH SOUNDS S1S2 SYSTOLIC M BS+ SOFT NONTENDER NO EDEMA LABS/MEDS/NOTES/IMAGES REVIEWED Acute on Chronic Systolic Heart Failure Pulmonary HTN CAD s/p CABG h/o bio AVR Atrial Tachycardia Chronic Hypoxic Respiratory Failure COPD PAD HTN DM PAD CKD Smoker - CXR ordered - continue lasix - monitor urine output, creatinine - daily weights - O2 to keep Spo2 >90% - inhaled bronchodilators - steroids are being tapered - rate control with beta christian - LESTER-I/ARB - DVT proph - Suspect noncompliance is a contributing factor to re-admission Danni FORBES MD
[2018-01-10] MEDS: ATORVASTATIN CA 20 MG TABLET (FP) PO SCH (21:44)
[2018-01-10] MEDS: methylPREDNISolone NA SUCC 40 MG/1 ML VIAL IVPB SCH (21:45)
[2018-01-10] MEDS: ZOLPIDEM TARTRATE 5 MG TABLET PO PRN (21:57)
[2018-01-11] MEDS: glipiZIDE 5 MG TABLET (FP) PO SCH ×2 (06:34→16:24)
[2018-01-11] MEDS: DOCUSATE SODIUM 100 MG CAPSULE (FP) PO SCH ×3 (06:34→21:43)
[2018-01-11] MEDS: oxyCODONE HCL 5 MG TABLET PO PRN ×3 (07:44→22:32)
[2018-01-11] MEDS: ACETAMINOPHEN 325 MG TABLET (FP) PO PRN ×2 (07:45→22:32)
[2018-01-11 07:50] LABS: BASO % 0.2 % (0-2.0); HEMATOCRIT 25.4 % (35.4-49); HEMOGLOBIN 8.5 GM/dL (11.7-16.9); LYMPH % 3.3 % (8-40); MCH 30.8 pg (25.7-33.7); MCHC 33.5 g/dl (32.0-35.9); MEAN CELL VOLUME 92.2 fl (80-96); MEAN PLT VOLUME 8.2 fl (7.5-11.1); MONO % 2.1 % (3.8-10.2); NEUT % 94.4 % (42.8-82.8); PLATELET COUNT 200 K/MM3 (134-434); RBC 2.75 M/mm3 (4.00-5.60); RDW 15.8 % (11.9-15.9); WHITE BLOOD COUNT 12.9 K/mm3 (4.0-10.0)
[2018-01-11 08:21] LABS: ALBUMIN 2.8 g/dl (3.4-5.0); ALK PHOS 109 U/L (45-117); ANION GAP 8 MMOL/L (8-16); BILIRUBIN,TOTAL 0.4 mg/dL (0.2-1); BLOOD UREA NITROGEN 60 mg/dL (7-18); CALCIUM 8.4 mg/dL (8.5-10.1); CHLORIDE 95 mmol/L (98-107); CO2 29 mmol/L (21-32); CREATININE 2.3 mg/dL (0.55-1.3); GLUCOSE,RANDOM 269 mg/dL (74-106); POTASSIUM 4.4 mmol/L (3.5-5.1); SGOT/AST 10 U/L (15-37); SGPT/ALT 8 U/L (13-61); SODIUM 133 mmol/L (136-145); TOT PROT 6.4 g/dl (6.4-8.2)
[2018-01-11] MEDS ORDERED: PT OWN MED DRAWER 7, Y5N ONE ×2 (08:42→21:38)
[2018-01-11] MEDS: CLOPIDOGREL BISULFATE 75 MG TABLET (FP) PO SCH (09:01)
[2018-01-11] MEDS: ASPIRIN COATED 81 MG TABLET.EC PO SCH (09:01)
[2018-01-11] MEDS: methylPREDNISolone NA SUCC 40 MG/1 ML VIAL IVPB SCH (09:01)
[2018-01-11] MEDS: CARVEDILOL 25 MG TABLET (FP) PO SCH ×2 (09:01→21:43)
[2018-01-11] MEDS: BUDESONIDE/FORMETEROL FUMARATE 160/4.5 mcg INHALER IH SCH ×2 (09:02→21:44)
[2018-01-11] MEDS: POLYETHYLENE GLYCOL 3350 119 GM BTL PO SCH ×2 (09:03→21:43)
--- NOTE | 2018-01-11 09:20 | PN ---
Progress Note, Physician Chief Complaint: chf History of Present Illness: no sob. no cp, palp, leg swelling - Current Medication List Current Medications: Active Medications Acetaminophen (Tylenol -) 325 mg PO Q6H PRN PRN Reason: PAIN LEVEL 7 - 10 Last Admin: 01/11/18 07:45 Dose: 325 mg Albuterol Sulfate (Ventolin 0.083% Nebulizer Soln -) 1 amp NEB Q6H PRN PRN Reason: SHORT OF BREATH/WHEEZING Last Admin: 01/10/18 09:20 Dose: 1 amp Aspirin (Ecotrin -) 81 mg PO DAILY [facility] Last Admin: 01/11/18 09:01 Dose: 81 mg Atorvastatin Calcium (Lipitor -) 20 mg PO HS [facility] Last Admin: 01/10/18 21:44 Dose: 20 mg Budesonide/Formoterol Fumarate (Symbicort 160/4.5mcg -) 2 puff IH BID [facility] Last Admin: 01/11/18 09:02 Dose: 2 puff Bupropion HCl (Wellbutrin Xl -) 150 mg PO DAILY [facility] Last Admin: 01/11/18 09:01 Dose: 150 mg Carvedilol (Coreg -) 25 mg PO BID [facility] Last Admin: 01/11/18 09:01 Dose: 25 mg Clopidogrel Bisulfate (Plavix -) 75 mg PO DAILY [facility] Last Admin: 01/11/18 09:01 Dose: 75 mg Docusate Sodium (Colace -) 100 mg PO TID [facility] Last Admin: 01/11/18 06:34 Dose: 100 mg Glipizide (Glucotrol -) 5 mg PO BID@0700,1630 [facility] Last Admin: 01/11/18 06:34 Dose: 5 mg Methylprednisolone Sodium Succinate (Solu-Medrol -) 40 mg IVPB BID [facility] Last Admin: 01/11/18 09:01 Dose: 40 mg Oxycodone HCl (Roxicodone -) 10 mg PO Q6H PRN PRN Reason: PAIN LEVEL 4 - 6 Last Admin: 01/11/18 07:44 Dose: 10 mg Polyethylene Glycol (Miralax (For Daily Use) -) 17 gm PO BID [facility] Last Admin: 01/11/18 09:03 Dose: 17 gm Zolpidem Tartrate (Ambien -) 10 mg PO HS PRN PRN Reason: INSOMNIA Last Admin: 01/10/18 21:57 Dose: 10 mg - Objective Vital Signs: Vital Signs Temperature 97.8 F 01/11/18 06:00 Pulse Rate 77 01/11/18 06:00 Respiratory Rate 18 01/11/18 06:00 Blood Pressure 130/65 01/11/18 06:00 O2 Sat by Pulse Oximetry (%) 99 01/10/18 21:00 Constitutional: Yes: Well Nourished, No Distress, Calm Cardiovascular: Yes: Pulse Irregular, S1, S2. No: JVD, Gallop, Murmur Respiratory: Yes: Regular, Rales (L base). 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, sinus echo 06/2015: mild lve, mod-sev dec lvef, mod lae, nl rv size, mild dec rv fcn, mild-mod mr, mild tr, nl avr fcn, rvsp 30-40 echo 06/2016: sev dec lvef, global hk, rv tds, trinity, mod-sev mr, mod tr, rvsp 50- 60 mibi 09/2014: large inf scar, mod anteroapical ischemia, lvef 25% mibi 06/2016 (pers): non-diagnostic STs; large area inferior/inferolateral/ lateral scar; no ischemia; severe LV cavity dilation; global HK with akinesis of inferior/inferolat/lateral allan; EF 16% tele: AF/flutter, [employer] vs Vs a/p: 62 m hx copd, cabgx3 2012, bio avr 2012, pad s/p b/l sfa occlusions, syst chf s/p medtronic icd, htn, hld, a-tach, here with back pain, sob. Dyspnea on exertion, acute systolic CHF exacerbation - + dietary indiscretion here and at home--pt education provided. likely the reason for repeated HF exacerbations. - weight 190 lbs on last dc - was on furosemide 80 mg PO daily at home (incr'd from 40 qd after last HF discharge) - 01/09 SOB improving, still has JVD. lasix IV 40 mg BID continued - 01/10 Cr 2.2 ->2.5, held PM lasix dose and reevaluate in AM - 01/11: no documented standing wt on DOA here. wt has been 192 consistently since. today 196 but appears euvolemic--erroneous? Na down. bun/creat rising past few days. continue holding lasix. reassess in AM, ? resume home po lasix regimen tomorrow - cont bb, not on ACEI due to h/o hyperkalemia copd: - stable cad/hx of CABG 2012 -no recent angina/ischemia -present sx's not suggestive for angina -cont prior cad med regimen: dapt, statin, bb, ccb bio avr: -nl fcn on echo 06/20 mitral regurgitation: -likely functional MR, mild-mod on echo 06/19, then "mod-severe" when here 06/20 with suspected acute chf and pulm pressures up (though at risk for overestimation of MR severity on that echo report) -valve morphology not described (tethered leaflets?) -no murmur on exam -reassess MR severity on echo as outpt CKD: -baseline creatinine 2-2.8; -renal fxn stable here pad: -stable, no claudication, cont current cardiac meds s/p icd: -no shocks -routine outpt monitoring htn: -cont home meds hld: -cont statin atach: -minimal episodes seen in past on icd checks -cont bb anemia: -chronic, stable counts here vs baseline -per pmd
[2018-01-11 11:37] LABS: ANISOCYTOSIS 1+; MACROCYTOSIS 1+
[2018-01-11 11:38] LABS: OVALOCYTE 1+
--- NOTE | 2018-01-11 11:47 | PN ---
Progress Note, Physician Chief Complaint: Pt lying in bed in no acute distress. sob improved. Denies any chest pain, n/v/d , unilateral weakness. - Current Medication List Current Medications: Active Medications Acetaminophen (Tylenol -) 325 mg PO Q6H PRN PRN Reason: PAIN LEVEL 7 - 10 Last Admin: 01/11/18 07:45 Dose: 325 mg Albuterol Sulfate (Ventolin 0.083% Nebulizer Soln -) 1 amp NEB Q6H PRN PRN Reason: SHORT OF BREATH/WHEEZING Last Admin: 01/10/18 09:20 Dose: 1 amp Aspirin (Ecotrin -) 81 mg PO DAILY [facility] Last Admin: 01/11/18 09:01 Dose: 81 mg Atorvastatin Calcium (Lipitor -) 20 mg PO HS [facility] Last Admin: 01/10/18 21:44 Dose: 20 mg Budesonide/Formoterol Fumarate (Symbicort 160/4.5mcg -) 2 puff IH BID [facility] Last Admin: 01/11/18 09:02 Dose: 2 puff Bupropion HCl (Wellbutrin Xl -) 150 mg PO DAILY [facility] Last Admin: 01/11/18 09:01 Dose: 150 mg Carvedilol (Coreg -) 25 mg PO BID [facility] Last Admin: 01/11/18 09:01 Dose: 25 mg Clopidogrel Bisulfate (Plavix -) 75 mg PO DAILY [facility] Last Admin: 01/11/18 09:01 Dose: 75 mg Docusate Sodium (Colace -) 100 mg PO TID [facility] Last Admin: 01/11/18 06:34 Dose: 100 mg Glipizide (Glucotrol -) 5 mg PO BID@0700,1630 [facility] Last Admin: 01/11/18 06:34 Dose: 5 mg Methylprednisolone Sodium Succinate (Solu-Medrol -) 40 mg IVPB BID [facility] Last Admin: 01/11/18 09:01 Dose: 40 mg Oxycodone HCl (Roxicodone -) 10 mg PO Q6H PRN PRN Reason: PAIN LEVEL 4 - 6 Last Admin: 01/11/18 07:44 Dose: 10 mg Polyethylene Glycol (Miralax (For Daily Use) -) 17 gm PO BID [facility] Last Admin: 01/11/18 09:03 Dose: 17 gm Zolpidem Tartrate (Ambien -) 10 mg PO HS PRN PRN Reason: INSOMNIA Last Admin: 01/10/18 21:57 Dose: 10 mg - Objective Vital Signs: Vital Signs Temperature 97.5 F L 01/11/18 10:00 Pulse Rate 65 01/11/18 10:00 Respiratory Rate 18 01/11/18 10:00 Blood Pressure 121/64 01/11/18 10:00 O2 Sat by Pulse Oximetry (%) 98 01/11/18 09:00 Constitutional: Yes: Well Nourished, No Distress, Calm Cardiovascular: Yes: Regular Rate and Rhythm Respiratory: Yes: Regular, Diminished, On Nasal O2, Rales (bibasilar- improved) , SOB on Exertion. No: Accessory Muscle Use, Tachypnea, Wheezes Gastrointestinal: Yes: WNL, Normal Bowel Sounds, Soft. No: Distention, Tenderness Genitourinary: Yes: WNL Labs: CBC, BMP 01/11/18 06:00 01/11/18 06:00 INR, PTT INR 1.23 (0.83-1.09) H 01/06/18 22:00 Assessment/Plan (1) Acute exacerbation of CHF (congestive heart failure) Assessment/Plan: improved due to dietary noncompliance holding diuresis per cardiology daily weights O2 as needed low Na diet advise smoking cessation cardiology following Code(s): I50.9 - HEART FAILURE, UNSPECIFIED Qualifiers: Heart failure type: systolic Qualified Code(s): I50.23 - Acute on chronic systolic (congestive) heart failure (2) Shortness of breath Assessment/Plan: improved 2/2 chf exacerbation continue O2 via nc Code(s): R06.02 - SHORTNESS OF BREATH (3) CHF (congestive heart failure) Assessment/Plan: s/p icd appears at dry weight 192-196lbs as above Code(s): I50.9 - HEART FAILURE, UNSPECIFIED (4) COPD (chronic obstructive pulmonary disease) Assessment/Plan: chronic, O2 dependent continue nebs solumedrol d/c'd pulm following Code(s): J44.9 - CHRONIC OBSTRUCTIVE PULMONARY DISEASE, UNSPECIFIED (5) Chronic kidney disease (CKD) Assessment/Plan: stable bun trending up, hold diuresis and monitor monitor Code(s): N18.9 - CHRONIC KIDNEY DISEASE, UNSPECIFIED Qualifiers: Chronic kidney disease stage: stage 3 (moderate) Qualified Code(s): N18.3 - Chronic kidney disease, stage 3 (moderate) (6) CAD (coronary artery disease) Assessment/Plan: s/p cabgx 3 continue asa/statin/plavix Code(s): I25.10 - ATHSCL HEART DISEASE OF [place] CORONARY ARTERY W/O ANG PCTRS Qualifiers: [place] vs. transplanted heart: [place] heart Associated angina: without angina (7) Diabetes Assessment/Plan: chronic bgm glipizide monitor Code(s): E11.9 - TYPE 2 DIABETES MELLITUS WITHOUT COMPLICATIONS Qualifiers: Diabetes mellitus type: type 2 Diabetes mellitus nursing home insulin use: with nursing home use Diabetes mellitus complication status: with kidney complications Diabetes mellitus complication detail: with chronic kidney disease Chronic kidney disease stage: stage 3 (moderate) Qualified Code(s): E11.22 - Type 2 diabetes mellitus with diabetic chronic kidney disease; N18.3 - Chronic kidney disease, stage 3 (moderate); Z79.4 - senior care (current) use of insulin (8) HTN (hypertension) Assessment/Plan: controlled continue carvedilol meds reconciled with pt's pharmacy monitor Code(s): I10 - ESSENTIAL (PRIMARY) HYPERTENSION Qualifiers: Hypertension type: essential hypertension Qualified Code(s): I10 - Essential (primary) hypertension (10) Osteoarthritis, multiple sites Assessment/Plan: stable Code(s): M15.9 - POLYOSTEOARTHRITIS, UNSPECIFIED Qualifiers: Osteoarthritis type: primary Qualified Code(s): M15.0 - Primary generalized (osteo)arthritis (11) Low back pain Assessment/Plan: chronic PT analgesics prn Code(s): M54.5 - LOW BACK PAIN Qualifiers: Chronicity: chronic (12) Anemia Assessment/Plan: chronic hg/hct stable monitor Code(s): D64.9 - ANEMIA, UNSPECIFIED Qualifiers: Anemia type: due to chronic kidney disease Chronic kidney disease stage: stage 3 (moderate) Qualified Code(s): N18.3 - Chronic kidney disease, stage 3 (moderate); D63.1 - Anemia in chronic kidney disease (13) Peripheral vascular disease Assessment/Plan: pad, stable continue statin/plavix/asa Code(s): I73.9 - PERIPHERAL VASCULAR DISEASE, UNSPECIFIED (14) Depression Assessment/Plan: improving continue wellbutrin Code(s): F32.9 - MAJOR DEPRESSIVE DISORDER, SINGLE EPISODE, UNSPECIFIED Qualifiers: Depression Type: major depressive disorder Major depression recurrence: unspecified whether recurrent Active/Remission status: currently active Psychotic features: without psychotic features Discharge: Home when cardiology cleared
--- NOTE | 2018-01-11 12:24 | PN ---
Progress Note (short form) - Note Progress Note: PULMONARY Breathing continues to improve. Less cough, no chest pain. Vital Signs Period Temp Pulse Resp BP Sys/El Pulse Ox Last 24 Hr 97.4 F-97.8 F 61-87 18-20 117-153/53-87 98-99 Intake & Output 01/08/18 01/09/18 01/10/18 01/11/18 23:59 23:59 23:59 23:59 Intake Total 600 730 610 470 Output Total 2350 2400 1700 200 Balance -1750 -1670 -1090 270 Weight 87.09 kg 86.75 kg 87.26 kg 88.904 kg Gen: NAD at rest Heart: RRR Lung: bibasilar rales Abd: soft, nontender Ext: no edema CBC, BMP 01/11/18 06:00 01/11/18 06:00 Active Medications Acetaminophen (Tylenol -) 325 mg PO Q6H PRN PRN Reason: PAIN LEVEL 7 - 10 Last Admin: 01/11/18 07:45 Dose: 325 mg Albuterol Sulfate (Ventolin 0.083% Nebulizer Soln -) 1 amp NEB Q6H PRN PRN Reason: SHORT OF BREATH/WHEEZING Last Admin: 01/10/18 09:20 Dose: 1 amp Aspirin (Ecotrin -) 81 mg PO DAILY [facility] Last Admin: 01/11/18 09:01 Dose: 81 mg Atorvastatin Calcium (Lipitor -) 20 mg PO HS [facility] Last Admin: 01/10/18 21:44 Dose: 20 mg Budesonide/Formoterol Fumarate (Symbicort 160/4.5mcg -) 2 puff IH BID [facility] Last Admin: 01/11/18 09:02 Dose: 2 puff Bupropion HCl (Wellbutrin Xl -) 150 mg PO DAILY [facility] Last Admin: 01/11/18 09:01 Dose: 150 mg Carvedilol (Coreg -) 25 mg PO BID [facility] Last Admin: 01/11/18 09:01 Dose: 25 mg Clopidogrel Bisulfate (Plavix -) 75 mg PO DAILY [facility] Last Admin: 01/11/18 09:01 Dose: 75 mg Docusate Sodium (Colace -) 100 mg PO TID [facility] Last Admin: 01/11/18 06:34 Dose: 100 mg Glipizide (Glucotrol -) 5 mg PO BID@0700,1630 [facility] Last Admin: 01/11/18 06:34 Dose: 5 mg Insulin Aspart (Novolog Vial Sliding Scale -) 1 vial SQ ACHS [facility]; Protocol Oxycodone HCl (Roxicodone -) 10 mg PO Q6H PRN PRN Reason: PAIN LEVEL 4 - 6 Last Admin: 01/11/18 07:44 Dose: 10 mg Polyethylene Glycol (Miralax (For Daily Use) -) 17 gm PO BID [facility] Last Admin: 01/11/18 09:03 Dose: 17 gm Zolpidem Tartrate (Ambien -) 10 mg PO HS PRN PRN Reason: INSOMNIA Last Admin: 01/10/18 21:57 Dose: 10 mg A/P Acute on Chronic Systolic Heart Failure Pulmonary HTN CAD s/p CABG h/o bio AVR Atrial Tachycardia Chronic Hypoxic Respiratory Failure COPD PAD HTN DM PAD CKD Smoker - holding lasix - monitor urine output, creatinine - daily weights - O2 to keep Spo2 >90% - inhaled bronchodilators - can d/c steroids - rate control with beta christian - DVT prophylaxis Problem List - Problems (1) Acute on chronic systolic (congestive) heart failure Code(s): I50.23 - ACUTE ON CHRONIC SYSTOLIC (CONGESTIVE) HEART FAILURE
[2018-01-11] MEDS ORDERED: INSULIN (NOVOLOG) ASPART 100 UNITS/ML 10ML VIAL SQ ONE ×2 (16:20→18:45)
[2018-01-11] MEDS ORDERED: INSULIN SLIDING SCALE (NOVOLOG) 1 VIAL SQ SCH ×2 (16:30→18:32)
[2018-01-11] MEDS: ALBUTEROL SO4 0.083% IH SOL 2.5 MG/3 ML VIAL.NEB. NEB PRN (20:27)
[2018-01-11] MEDS ORDERED: INSULIN (NOVOLOG) ASPART 100 UNITS/ML 10ML VIAL ONE (21:37)
[2018-01-11] MEDS: ATORVASTATIN CA 20 MG TABLET (FP) PO SCH (21:43)
[2018-01-11] MEDS: INSULIN (LEVEMIR) 100 UNITS/ML UNITS SQ SCH (21:45)
[2018-01-11] MEDS: ZOLPIDEM TARTRATE 5 MG TABLET PO PRN (22:33)
[2018-01-12] MEDS: ALBUTEROL SO4 0.083% IH SOL 2.5 MG/3 ML VIAL.NEB. NEB PRN ×3 (00:21→20:37)
[2018-01-12] MEDS: INSULIN SLIDING SCALE (NOVOLOG) 1 VIAL SQ SCH ×4 (06:31→22:05)
[2018-01-12] MEDS: glipiZIDE 5 MG TABLET (FP) PO SCH ×2 (06:35→17:21)
[2018-01-12] MEDS: oxyCODONE HCL 5 MG TABLET PO PRN ×3 (06:35→22:00)
[2018-01-12] MEDS: DOCUSATE SODIUM 100 MG CAPSULE (FP) PO SCH ×3 (06:35→21:59)
[2018-01-12] MEDS: ACETAMINOPHEN 325 MG TABLET (FP) PO PRN ×3 (06:36→22:00)
[2018-01-12 06:55] LABS: BASO % 0.3 % (0-2.0); EOS % 0.3 % (0-4.5); HEMATOCRIT 26.1 % (35.4-49); HEMOGLOBIN 8.6 GM/dL (11.7-16.9); LYMPH % 5.7 % (8-40); MCH 30.9 pg (25.7-33.7); MCHC 32.9 g/dl (32.0-35.9); MEAN CELL VOLUME 93.9 fl (80-96); MEAN PLT VOLUME 8.3 fl (7.5-11.1); MONO % 4.2 % (3.8-10.2); NEUT % 89.5 % (42.8-82.8); PLATELET COUNT 201 K/MM3 (134-434); RBC 2.78 M/mm3 (4.00-5.60); RDW 16.5 % (11.9-15.9); WHITE BLOOD COUNT 16.9 K/mm3 (4.0-10.0)
[2018-01-12 07:27] LABS: ANION GAP 6 MMOL/L (8-16); BLOOD UREA NITROGEN 70 mg/dL (7-18); CALCIUM 8.3 mg/dL (8.5-10.1); CHLORIDE 98 mmol/L (98-107); CO2 30 mmol/L (21-32); CREATININE 2.3 mg/dL (0.55-1.3); GLUCOSE,RANDOM 127 mg/dL (74-106); MAGNESIUM 2.6 mg/dL (1.8-2.4); POTASSIUM 4.6 mmol/L (3.5-5.1); SODIUM 134 mmol/L (136-145)
--- NOTE | 2018-01-12 09:28 | PN ---
Progress Note (short form) - Note Progress Note: Chief Complaint: chf History of Present Illness: shortness of breath this morning when getting out of bed to get dressed. no chest pain, palps dizzy Current Medications Acetaminophen (Tylenol -) 325 mg PO Q6H PRN PRN Reason: PAIN LEVEL 7 - 10 Last Admin: 01/12/18 06:36 Dose: 325 mg Albuterol Sulfate (Ventolin 0.083% Nebulizer Soln -) 1 amp NEB Q4H PRN PRN Reason: SHORT OF BREATH/WHEEZING Last Admin: 01/12/18 00:21 Dose: 1 amp Aspirin (Ecotrin -) 81 mg PO DAILY [facility] Last Admin: 01/11/18 09:01 Dose: 81 mg Atorvastatin Calcium (Lipitor -) 20 mg PO [facility] Last Admin: 01/11/18 21:43 Dose: 20 mg Budesonide/Formoterol Fumarate (Symbicort 160/4.5mcg -) 2 puff IH BID [facility] Last Admin: 01/11/18 21:44 Dose: 2 puff Bupropion HCl (Wellbutrin Xl -) 150 mg PO DAILY [facility] Last Admin: 01/11/18 09:01 Dose: 150 mg Carvedilol (Coreg -) 25 mg PO BID [facility] Last Admin: 01/11/18 21:43 Dose: 25 mg Clopidogrel Bisulfate (Plavix -) 75 mg PO DAILY [facility] Last Admin: 01/11/18 09:01 Dose: 75 mg Docusate Sodium (Colace -) 100 mg PO TID [facility] Last Admin: 01/12/18 06:35 Dose: 100 mg Glipizide (Glucotrol -) 5 mg PO BID@0700,1630 [facility] Last Admin: 01/12/18 06:35 Dose: 5 mg Insulin Aspart (Novolog Vial Sliding Scale -) 1 vial SQ [facility]; Protocol Last Admin: 01/12/18 06:31 Dose: Not Given Insulin Detemir (Levemir Vial) 10 units SQ [facility] Last Admin: 01/11/18 21:45 Dose: 10 units Oxycodone HCl (Roxicodone -) 10 mg PO Q6H PRN PRN Reason: PAIN LEVEL 4 - 6 Last Admin: 01/12/18 06:35 Dose: 10 mg Polyethylene Glycol (Miralax (For Daily Use) -) 17 gm PO BID [facility] Last Admin: 01/11/18 21:43 Dose: 17 gm Zolpidem Tartrate (Ambien -) 10 mg PO HS PRN PRN Reason: INSOMNIA Last Admin: 01/11/18 22:33 Dose: 10 mg - Objective Vital Signs: Vital Signs Period Temp Pulse Resp BP Sys/El Pulse Ox Last 24 Hr 97.4 F-98.5 F 65-96 16-18 121-155/64-92 98 Constitutional: Yes: Well Nourished, No Distress, Calm Cardiovascular: Yes: Pulse Irregular, S1, S2. No: JVD, Gallop, Murmur Respiratory: Yes: Regular, Rales (L base). 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, sinus echo 06/2015: mild lve, mod-sev dec lvef, mod lae, nl rv size, mild dec rv fcn, mild-mod mr, mild tr, nl avr fcn, rvsp 30-40 echo 06/2016: sev dec lvef, global hk, rv tds, trinity, mod-sev mr, mod tr, rvsp 50- 60 mibi 09/2014: large inf scar, mod anteroapical ischemia, lvef 25% mibi 06/2016 (pers): non-diagnostic STs; large area inferior/inferolateral/ lateral scar; no ischemia; severe LV cavity dilation; global HK with akinesis of inferior/inferolat/lateral allan; EF 16% tele: AF/flutter, [employer] vs Vs a/p: 62 m hx copd, cabgx3 2012, bio avr 2012, pad s/p b/l sfa occlusions, syst chf s/p medtronic icd, htn, hld, a-tach, here with back pain, sob. Dyspnea on exertion, acute systolic CHF exacerbation - + dietary indiscretion here and at home--pt education provided. likely the reason for repeated HF exacerbations. - weight 190 lbs on last dc - was on furosemide 80 mg PO daily at home (incr'd from 40 qd after last HF discharge) - 01/09 SOB improving, still has JVD. lasix IV 40 mg BID continued - 01/10 Cr 2.2 ->2.5, held PM lasix dose - 01/11: no documented standing wt on DOA here. wt has been 192 consistently since. today 196 but appears euvolemic--erroneous? Na down. bun/creat rising past few days. - 01/12 weight up 196->198 lbs, BUN rising Cr stable 2.3. dyspnea this AM. will give lasix 40 mg IV x 1 now and reassess in AM - cont bb, not on ACEI due to h/o hyperkalemia copd: - stable cad/hx of CABG 2012 -no recent angina/ischemia -present sx's not suggestive for angina -cont prior cad med regimen: dapt, statin, bb, ccb bio avr: -nl fcn on echo 06/20 mitral regurgitation: -likely functional MR, mild-mod on echo 06/19, then "mod-severe" when here 06/20 with suspected acute chf and pulm pressures up (though at risk for overestimation of MR severity on that echo report) -valve morphology not described (tethered leaflets?) -no murmur on exam -reassess MR severity on echo as outpt CKD: -baseline creatinine 2-2.8; -renal fxn stable here pad: -stable, no claudication, cont current cardiac meds s/p icd: -no shocks -routine outpt monitoring htn: -cont home meds hld: -cont statin atach: -minimal episodes seen in past on icd checks -cont bb anemia: -chronic, stable counts here vs baseline -per pmd
[2018-01-12] MEDS ORDERED: PT OWN MED DRAWER 7, Y5N ONE ×2 (10:07→21:49)
[2018-01-12] MEDS: BUDESONIDE/FORMETEROL FUMARATE 160/4.5 mcg INHALER IH SCH ×2 (10:08→21:58)
[2018-01-12] MEDS: POLYETHYLENE GLYCOL 3350 119 GM BTL PO SCH ×2 (10:09→21:58)
[2018-01-12] MEDS: ASPIRIN COATED 81 MG TABLET.EC PO SCH (10:09)
[2018-01-12] MEDS: CLOPIDOGREL BISULFATE 75 MG TABLET (FP) PO SCH (10:09)
[2018-01-12] MEDS: CARVEDILOL 25 MG TABLET (FP) PO SCH ×2 (10:09→22:00)
[2018-01-12] MEDS ORDERED: FUROSEMIDE 40 MG/4 ML INJECTABLE VIAL IVPUSH ONE (11:04)
--- NOTE | 2018-01-12 11:16 | PN ---
Progress Note, Physician Chief Complaint: Pt sitting in chair in no acute distress. reports more sob today. Denies any chest pain, n/v/d, unilateral weakness. - Current Medication List Current Medications: Active Medications Acetaminophen (Tylenol -) 325 mg PO Q6H PRN PRN Reason: PAIN LEVEL 7 - 10 Last Admin: 01/12/18 06:36 Dose: 325 mg Albuterol Sulfate (Ventolin 0.083% Nebulizer Soln -) 1 amp NEB Q4H PRN PRN Reason: SHORT OF BREATH/WHEEZING Last Admin: 01/12/18 00:21 Dose: 1 amp Aspirin (Ecotrin -) 81 mg PO DAILY [facility] Last Admin: 01/12/18 10:09 Dose: 81 mg Atorvastatin Calcium (Lipitor -) [address] [facility] Last Admin: 01/11/18 21:43 Dose: 20 mg Budesonide/Formoterol Fumarate (Symbicort 160/4.5mcg -) 2 puff IH BID [facility] Last Admin: 01/12/18 10:08 Dose: 2 puff Bupropion HCl (Wellbutrin Xl -) 150 mg PO DAILY [facility] Last Admin: 01/12/18 10:09 Dose: 150 mg Carvedilol (Coreg -) 25 mg PO BID [facility] Last Admin: 01/12/18 10:09 Dose: 25 mg Clopidogrel Bisulfate (Plavix -) 75 mg PO DAILY [facility] Last Admin: 01/12/18 10:09 Dose: 75 mg Docusate Sodium (Colace -) 100 mg PO TID [facility] Last Admin: 01/12/18 06:35 Dose: 100 mg Glipizide (Glucotrol -) 5 mg PO BID@0700,1630 [facility] Last Admin: 01/12/18 06:35 Dose: 5 mg Insulin Aspart (Novolog Vial Sliding Scale -) 1 vial SQ [facility]; Protocol Last Admin: 01/12/18 06:31 Dose: Not Given Insulin Detemir (Levemir Vial) [address] [facility] Last Admin: 01/11/18 21:45 Dose: 10 units Oxycodone HCl (Roxicodone -) 10 mg PO Q6H PRN PRN Reason: PAIN LEVEL 4 - 6 Last Admin: 01/12/18 06:35 Dose: 10 mg Polyethylene Glycol (Miralax (For Daily Use) -) 17 gm PO BID [facility] Last Admin: 01/12/18 10:09 Dose: 17 gm Zolpidem Tartrate (Ambien -) 10 mg PO HS PRN PRN Reason: INSOMNIA Last Admin: 01/11/18 22:33 Dose: 10 mg - Objective Vital Signs: Vital Signs Temperature 98.5 F 01/12/18 06:00 Pulse Rate 89 01/12/18 06:00 Respiratory Rate 18 01/12/18 06:00 Blood Pressure 134/67 01/12/18 06:00 O2 Sat by Pulse Oximetry (%) 98 01/11/18 20:53 Constitutional: Yes: Well Nourished, No Distress, Calm Cardiovascular: Yes: Regular Rate and Rhythm. No: Murmur Respiratory: Yes: Regular, Diminished, On Nasal O2, SOB, SOB on Exertion. No: Accessory Muscle Use, Tachypnea, Wheezes Gastrointestinal: Yes: WNL, Normal Bowel Sounds, Soft. No: Distention, Tenderness Genitourinary: Yes: WNL Edema: Yes Edema: LLE: Trace, RLE: Trace Neurological: Yes: WNL, Alert, Oriented Psychiatric: Yes: WNL, Alert, Oriented Labs: CBC, BMP 01/12/18 06:00 01/12/18 06:00 INR, PTT INR 1.23 (0.83-1.09) H 01/06/18 22:00 Assessment/Plan (1) Acute exacerbation of CHF (congestive heart failure) Assessment/Plan: sob/weight gain today lasix 40 iv x 1 today monitor renal function daily weights O2 as needed low Na diet advise smoking cessation cardiology following Code(s): I50.9 - HEART FAILURE, UNSPECIFIED Qualifiers: Heart failure type: systolic Qualified Code(s): I50.23 - Acute on chronic systolic (congestive) heart failure (2) Shortness of breath Assessment/Plan: improving 2/2 chf exacerbation continue O2 via nc Code(s): R06.02 - SHORTNESS OF BREATH (3) CHF (congestive heart failure) Assessment/Plan: s/p icd dry weight:192-196lbs as above Code(s): I50.9 - HEART FAILURE, UNSPECIFIED (4) COPD (chronic obstructive pulmonary disease) Assessment/Plan: chronic, O2 dependent continue nebs pulm following Code(s): J44.9 - CHRONIC OBSTRUCTIVE PULMONARY DISEASE, UNSPECIFIED (5) Chronic kidney disease (CKD) Assessment/Plan: cr stable bun trending up nephrology consulted monitor Code(s): N18.9 - CHRONIC KIDNEY DISEASE, UNSPECIFIED Qualifiers: Chronic kidney disease stage: stage 3 (moderate) Qualified Code(s): N18.3 - Chronic kidney disease, stage 3 (moderate) (6) CAD (coronary artery disease) Assessment/Plan: s/p cabgx 3 continue asa/statin/plavix Code(s): I25.10 - ATHSCL HEART DISEASE OF [place] CORONARY ARTERY W/O ANG PCTRS Qualifiers: [place] vs. transplanted heart: [place] heart Associated angina: without angina (7) Diabetes Assessment/Plan: hyperglycemic yesterday, suspect 2/2 steroids bgm insulin levemir, sliding scale glipizide monitor Code(s): E11.9 - TYPE 2 DIABETES MELLITUS WITHOUT COMPLICATIONS Qualifiers: Diabetes mellitus type: type 2 Diabetes mellitus outside sales insulin use: with retirement use Diabetes mellitus complication status: with kidney complications Diabetes mellitus complication detail: with chronic kidney disease Chronic kidney disease stage: stage 3 (moderate) Qualified Code(s): E11.22 - Type 2 diabetes mellitus with diabetic chronic kidney disease; N18.3 - Chronic kidney disease, stage 3 (moderate); Z79.4 - MCC (current) use of insulin (8) HTN (hypertension) Assessment/Plan: controlled continue carvedilol meds reconciled with pt's pharmacy monitor Code(s): I10 - ESSENTIAL (PRIMARY) HYPERTENSION Qualifiers: Hypertension type: essential hypertension Qualified Code(s): I10 - Essential (primary) hypertension (10) Osteoarthritis, multiple sites Assessment/Plan: stable Code(s): M15.9 - POLYOSTEOARTHRITIS, UNSPECIFIED Qualifiers: Osteoarthritis type: primary Qualified Code(s): M15.0 - Primary generalized (osteo)arthritis (11) Low back pain Assessment/Plan: chronic PT analgesics prn Code(s): M54.5 - LOW BACK PAIN Qualifiers: Chronicity: chronic (12) Anemia Assessment/Plan: chronic hg/hct stable monitor Code(s): D64.9 - ANEMIA, UNSPECIFIED Qualifiers: Anemia type: due to chronic kidney disease Chronic kidney disease stage: stage 3 (moderate) Qualified Code(s): N18.3 - Chronic kidney disease, stage 3 (moderate); D63.1 - Anemia in chronic kidney disease (13) Peripheral vascular disease Assessment/Plan: pad, stable continue statin/plavix/asa Code(s): I73.9 - PERIPHERAL VASCULAR DISEASE, UNSPECIFIED (14) Depression Assessment/Plan: improved continue wellbutrin Code(s): F32.9 - MAJOR DEPRESSIVE DISORDER, SINGLE EPISODE, UNSPECIFIED Qualifiers: Depression Type: major depressive disorder Major depression recurrence: unspecified whether recurrent Active/Remission status: currently active Psychotic features: without psychotic features Discharge: Home when cardiology cleared
--- NOTE | 2018-01-12 13:03 | PN ---
Progress Note, Physician History of Present Illness: PULMONARY ALERT,OOB-CHAIR,LESS DYSPNEIC,-CP - Current Medication List Current Medications: Active Medications Acetaminophen (Tylenol -) 325 mg PO Q6H PRN PRN Reason: PAIN LEVEL 7 - 10 Last Admin: 01/12/18 06:36 Dose: 325 mg Albuterol Sulfate (Ventolin 0.083% Nebulizer Soln -) 1 amp NEB Q4H PRN PRN Reason: SHORT OF BREATH/WHEEZING Last Admin: 01/12/18 12:37 Dose: 1 amp Aspirin (Ecotrin -) 81 mg PO DAILY [facility] Last Admin: 01/12/18 10:09 Dose: 81 mg Atorvastatin Calcium (Lipitor -) 20 mg PO HS [facility] Last Admin: 01/11/18 21:43 Dose: 20 mg Budesonide/Formoterol Fumarate (Symbicort 160/4.5mcg -) 2 puff IH BID [facility] Last Admin: 01/12/18 10:08 Dose: 2 puff Bupropion HCl (Wellbutrin Xl -) 150 mg PO DAILY [facility] Last Admin: 01/12/18 10:09 Dose: 150 mg Carvedilol (Coreg -) 25 mg PO BID [facility] Last Admin: 01/12/18 10:09 Dose: 25 mg Clopidogrel Bisulfate (Plavix -) 75 mg PO DAILY [facility] Last Admin: 01/12/18 10:09 Dose: 75 mg Docusate Sodium (Colace -) 100 mg PO TID [facility] Last Admin: 01/12/18 06:35 Dose: 100 mg Glipizide (Glucotrol -) 5 mg PO BID@0700,1630 [facility] Last Admin: 01/12/18 06:35 Dose: 5 mg Insulin Aspart (Novolog Vial Sliding Scale -) 1 vial SQ [facility]; Protocol Last Admin: 01/12/18 11:29 Dose: 4 unit Insulin Detemir (Levemir Vial) [address] [facility] Last Admin: 01/11/18 21:45 Dose: 10 units Oxycodone HCl (Roxicodone -) 10 mg PO Q6H PRN PRN Reason: PAIN LEVEL 4 - 6 Last Admin: 01/12/18 06:35 Dose: 10 mg Polyethylene Glycol (Miralax (For Daily Use) -) 17 gm PO BID [facility] Last Admin: 01/12/18 10:09 Dose: 17 gm Zolpidem Tartrate (Ambien -) 10 mg PO HS PRN PRN Reason: INSOMNIA Last Admin: 01/11/18 22:33 Dose: 10 mg - Objective Vital Signs: Vital Signs Temperature 97.5 F L 01/12/18 10:00 Pulse Rate 98 H 01/12/18 10:00 Respiratory Rate 18 01/12/18 10:00 Blood Pressure 134/78 01/12/18 10:00 O2 Sat by Pulse Oximetry (%) 98 01/12/18 09:00 Constitutional: Yes: Well Nourished, Calm Eyes: Yes: WNL HENT: Yes: WNL Neck: Yes: WNL Cardiovascular: Yes: Regular Rate and Rhythm, S1, S2 Respiratory: Yes: Rales (BIBASAILR RALES) Gastrointestinal: Yes: Normal Bowel Sounds, Soft Extremities: Yes: WNL Edema: No Labs: CBC, BMP 01/12/18 06:00 01/12/18 06:00 INR, PTT INR 1.23 (0.83-1.09) H 01/06/18 22:00 Problem List - Problems (1) COPD (chronic obstructive pulmonary disease) Code(s): J44.9 - CHRONIC OBSTRUCTIVE PULMONARY DISEASE, UNSPECIFIED (2) Shortness of breath Code(s): R06.02 - SHORTNESS OF BREATH (3) Acute exacerbation of CHF (congestive heart failure) Code(s): I50.9 - HEART FAILURE, UNSPECIFIED Qualifiers: Heart failure type: systolic Qualified Code(s): I50.23 - Acute on chronic systolic (congestive) heart failure (4) Atrial tachycardia Code(s): I47.1 - SUPRAVENTRICULAR TACHYCARDIA (5) Chronic kidney disease (CKD) Code(s): N18.9 - CHRONIC KIDNEY DISEASE, UNSPECIFIED Qualifiers: Chronic kidney disease stage: stage 3 (moderate) Qualified Code(s): N18.3 - Chronic kidney disease, stage 3 (moderate) (6) S/P AVR Code(s): Z95.2 - PRESENCE OF PROSTHETIC HEART VALVE (7) CAD (coronary artery disease) Code(s): I25.10 - ATHSCL HEART DISEASE OF [place] CORONARY ARTERY W/O ANG PCTRS Qualifiers: [place] vs. transplanted heart: [place] heart Associated angina: without angina (8) Diabetes Code(s): E11.9 - TYPE 2 DIABETES MELLITUS WITHOUT COMPLICATIONS Qualifiers: Diabetes mellitus type: type 2 Diabetes mellitus fdc insulin use: with terminal superintendent use Diabetes mellitus complication status: with kidney complications Diabetes mellitus complication detail: with chronic kidney disease Chronic kidney disease stage: stage 3 (moderate) Qualified Code(s): E11.22 - Type 2 diabetes mellitus with diabetic chronic kidney disease; N18.3 - Chronic kidney disease, stage 3 (moderate); Z79.4 - half-way (current) use of insulin (9) Pulmonary hypertension Code(s): I27.2 - OTHER SECONDARY PULMONARY HYPERTENSION * DO NOT USE * (10) S/P CABG x 3 Code(s): Z95.1 - PRESENCE OF AORTOCORONARY BYPASS GRAFT (11) Acute on chronic diastolic CHF (congestive heart failure) Code(s): I50.33 - ACUTE ON CHRONIC DIASTOLIC (CONGESTIVE) HEART FAILURE Assessment/Plan A/P Acute on Chronic Systolic Heart Failure Pulmonary HTN CAD s/p CABG h/o bio AVR Atrial Tachycardia Chronic Hypoxic Respiratory Failure COPD PAD HTN DM PAD CKD Smoker - holding lasix - monitor urine output, creatinine - daily weights - O2 to keep Spo2 >90% - inhaled bronchodilators - DVT prophylaxis Problem List - Problems (1) Acute on chronic systolic (congestive) heart failure Code(s): I50.23 - ACUTE ON CHRONIC SYSTOLIC (CONGESTIVE) HEART FAILURE
--- NOTE | 2018-01-12 15:37 | CONSULT ---
Consult Consult Specialty:: Nephrology Reason for Consultation:: CKD - History of Present Illness Chief Complaint: shortness of breath History of Present Illness: Pt is a 62 year old male with pmhx of CKD, CHF, COPD on home 02, HTN, DM, CAD, bioprosthetic AVR and CABG who presents to the ER with shortness of breath. He was admitted with CHF exacerbation and was treated with lasix. His breathing started to improved. I was called to evaluate him for elevated creatinine. He still has shortness of breath. He is in oxygen at home. He follows with Dr Stein but has not seen him. He denies nsaid use. - History Source History Provided By: Patient - Past Medical History Cardio/Vascular: Yes: AFIB (after CABG briefly; not on AC), CAD, CHF, HTN, Mitral Insufficiency Pulmonary: Yes: COPD, O2 Dependent Endocrine: Yes: Diabetes Mellitus - Past Surgical History Past Surgical History: Yes: AICD, CABG - Alcohol/Substance Use Hx Alcohol Use: No History of Substance Use: reports: None - Smoking History Smoking history: Current some day smoker Have you smoked in the past 12 months: Yes Aproximately how many cigarettes per day: 1 If you are a former smoker, when did you quit?: 06/20/16 - Social History Usual Living Arrangement: With Spouse ADL: Independent History of Recent Travel: No Home Medications - Allergies Allergies/Adverse Reactions: Allergies Allergy/AdvReac Type Severity Reaction Status Date / Time Fish Containing Products Allergy Verified 01/06/18 19:36 codeine AdvReac Intermediate Vomiting Verified 01/06/18 19:36 gabapentin AdvReac Intermediate dizzy Verified 01/06/18 19:36 - Home Medications Home Medications: Ambulatory Orders Aspirin [Aspirin EC] 81 mg PO DAILY 06/18/15 Clopidogrel Bisulfate [Clopidogrel] 75 mg PO DAILY 06/18/15 Zolpidem Tartrate [Ambien] 10 mg PO HS 06/18/15 Carvedilol [Coreg -] 25 mg PO BID #60 tablet 06/20/15 Psyllium [Metamucil (Sugar-Free) -] 5.85 gm PO BID #1 bottle 06/02/17 Docusate Sodium [Colace -] 100 mg PO TID #90 capsule 09/22/17 Ferrous Sulfate [Feosol] 325 mg PO DAILY 09/22/17 Furosemide [Lasix -] 80 mg PO DAILY 7 Days #7 tablet 11/21/17 Cholecalciferol (Vitamin D3) [Vitamin D3] 2,000 unit PO DAILY #30 capsule Diclofenac Sodium [Voltaren] 2 gm TP TID PRN #3 tube 12/25/17 Lactulose (Oral Use) [Cephulac -] 20 gm PO BID #1 bottle 12/25/17 Oxycodone HCl/Acetaminophen [Percocet 10-325 mg Tablet] 1 each PO QID PRN #120 tablet MDD 4 12/25/17 Budesonide/Formeterol Fumarate [SYMBICORT 160/4.5mcg -] 1 puff IH DAILY inhaler 12/30/17 Cyclobenzaprine HCl 5 mg PO BID #28 tablet 12/30/17 Atorvastatin Ca 20 mg PO HS 01/11/18 Glipizide [Glucotrol -] 5 mg PO BID 01/11/18 Family Disease History - Family Disease History Family Disease History: Heart Disease: Father (etoh), Mother (, cva), Other: Brother (alive - Ramírez - hx etoh), Sister (five - alive - no medical problems), Son (two adults - no problems) Review of Systems - Review of Systems Constitutional: reports: Malaise Eyes: reports: No Symptoms HENT: reports: No Symptoms Neck: reports: No Symptoms Cardiovascular: reports: Edema, Shortness of Breath Respiratory: reports: SOB, SOB on Exertion Genitourinary: reports: No Symptoms Musculoskeletal: reports: No Symptoms Integumentary: reports: No Symptoms Neurological: reports: No Symptoms Endocrine: reports: No Symptoms Hematology/Lymphatic: reports: No Symptoms Psychiatric: reports: No Symptoms Physical Exam Vital Signs: Vital Signs Temperature 97.4 F L 01/12/18 13:59 Pulse Rate 67 01/12/18 13:59 Respiratory Rate 18 01/12/18 13:59 Blood Pressure 127/67 01/12/18 13:59 O2 Sat by Pulse Oximetry (%) 98 01/12/18 09:00 Constitutional: Yes: Calm Eyes: Yes: Conjunctiva Clear HENT: Yes: Atraumatic Neck: Yes: Supple Cardiovascular: Yes: S1, S2 Respiratory: Yes: On Nasal O2 Gastrointestinal: Yes: Soft Renal/: Yes: WNL Musculoskeletal: Yes: WNL Edema: Yes Edema: LLE: 1+, RLE: 1+ Neurological: Yes: Oriented Psychiatric: Yes: Oriented Labs: CBC, BMP 01/12/18 06:00 01/12/18 06:00 Laboratory Tests 12/06/16 12/08/16 12/31/16 06:42 06:00 08:35 WBC BUN Creatinine 2.1 H 2.2 H 2.8 H D Urine Protein 10/01/17 11/13/17 11/13/17 10:46 16:45 17:47 WBC BUN Creatinine 3.2 H 2.6 H Urine Protein 2+ H 11/15/17 11/16/17 11/20/17 05:30 10:00 05:30 WBC BUN Creatinine 2.2 H 2.3 H 2.4 H Urine Protein 11/21/17 12/29/17 12/30/17 06:00 12:57 05:30 WBC BUN Creatinine 2.6 H 2.3 H 2.4 H Urine Protein 01/06/18 01/07/18 01/10/18 22:00 07:00 06:00 WBC BUN Creatinine 1.9 H 1.9 H 2.5 H Urine Protein 01/11/18 01/11/18 01/12/18 06:00 06:00 06:00 WBC 12.9 H 16.9 H BUN Creatinine 2.3 H Urine Protein 01/12/18 06:00 WBC BUN 70 H Creatinine 2.3 H Urine Protein Imaging - Results Chest X-ray: Report Reviewed Problem List - Problems (1) COPD (chronic obstructive pulmonary disease) Code(s): J44.9 - CHRONIC OBSTRUCTIVE PULMONARY DISEASE, UNSPECIFIED (2) Depression Code(s): F32.9 - MAJOR DEPRESSIVE DISORDER, SINGLE EPISODE, UNSPECIFIED Qualifiers: Depression Type: major depressive disorder Major depression recurrence: unspecified whether recurrent Active/Remission status: currently active Psychotic features: without psychotic features (3) CHF (congestive heart failure) Code(s): I50.9 - HEART FAILURE, UNSPECIFIED Qualifiers: Heart failure type: unspecified Heart failure chronicity: acute on chronic Qualified Code(s): I50.9 - Heart failure, unspecified Assessment/Plan Current Medications Generic Name Dose Route Start Last Admin Trade Name Freq PRN Reason Stop Dose Admin Acetaminophen 325 mg 01/07/18 02:00 01/12/18 06:36 Tylenol - PO 325 mg Q6H PRN Administration PAIN LEVEL 7 - 10 Albuterol Sulfate 1 amp 01/12/18 00:04 01/12/18 12:37 Ventolin 0.083% Nebulizer Soln - NEB 1 amp Q4H PRN Administration SHORT OF BREATH/WHEEZING Aspirin 81 mg 01/07/18 10:00 01/12/18 10:09 Ecotrin - PO 81 mg DAILY MANJU Administration Atorvastatin Calcium 20 mg 01/08/18 10:58 01/11/18 21:43 Lipitor - PO 20 mg HS MANJU Administration Budesonide/Formoterol Fumarate 2 puff 01/07/18 10:00 01/12/18 10:08 Symbicort 160/4.5mcg - IH 2 puff BID MANJU Administration Bupropion HCl 150 mg 01/08/18 12:15 01/12/18 10:09 Wellbutrin Xl - PO 150 mg DAILY MANJU Administration Carvedilol 25 mg 01/07/18 10:00 01/12/18 10:09 Coreg - PO 25 mg BID MANJU Administration Clopidogrel Bisulfate 75 mg 01/07/18 10:00 01/12/18 10:09 Plavix - PO 75 mg DAILY MANJU Administration Docusate Sodium 100 mg 01/07/18 14:00 01/12/18 14:27 Colace - PO 100 mg TID MANJU Administration Glipizide 5 mg 01/07/18 16:30 01/12/18 06:35 Glucotrol - PO 5 mg BID@0700,1630 MANJU Administration Insulin Aspart 1 vial 01/12/18 07:00 01/12/18 11:29 Novolog Vial Sliding Scale - SQ 4 unit ACHS MANJU Administration Protocol Insulin Detemir 10 units 01/11/18 22:00 01/11/18 21:45 Levemir Vial SQ 10 units HS MANJU Administration Oxycodone HCl 10 mg 01/10/18 10:55 01/12/18 06:35 Roxicodone - PO 10 mg Q6H PRN Administration PAIN LEVEL 4 - 6 Polyethylene Glycol 17 gm 01/07/18 14:00 01/12/18 10:09 Miralax (For Daily Use) - PO 17 gm BID MANJU Administration Zolpidem Tartrate 10 mg 01/10/18 02:45 01/11/18 22:33 Ambien - PO 10 mg HS PRN Administration INSOMNIA Impression 1. CKD 2. proteinuria 3. CAD 4. CHF 5. COPD 6. DM 7. HTN Plan - would continue with lasix, he did get a dose today - renal function is not far from baseline - cont oxygen and monitor pulse ox - check ua and prt to presentation specialist ratio - start low potassium diet and consider starting arb or deidra if possible. he did have a few episodes of hyperkalemia in the past but perhaps a low potassium diet may help - pt also has hx of proteinuria
[2018-01-12 17:15] LABS: URINE APPEARANCE CLEAR; URINE BILIRUBIN NEGATIVE (<2.0 mg/dL); URINE COLOR STRAW; URINE GLUCOSE (UA) NEGATIVE (NEGATIVE); URINE KETONE NEGATIVE (NEGATIVE); URINE LEUK ESTERASE NEGATIVE (NEGATIVE); URINE NITRITE NEGATIVE (NEGATIVE); URINE PROTEIN 1+ (NEGATIVE); URINE UROBILINOGEN NEGATIVE mg/dL (0.2-1.0)
[2018-01-12 17:26] LABS: RATIO URIN PROTEIN/URIN CREAT 1.7 MG/DL
[2018-01-12 18:01] LABS: URINE HYALINE CAST 1 /lpf; URINE MUCUS RARE
[2018-01-12] MEDS ORDERED: Insulin (LOG) Aspart 100 UNITS/ML VIAL SQ ONE (18:33)
[2018-01-12] MEDS: ATORVASTATIN CA 20 MG TABLET (FP) PO SCH (21:59)
[2018-01-12] MEDS: ZOLPIDEM TARTRATE 5 MG TABLET PO PRN (22:00)
[2018-01-12] MEDS: INSULIN (LEVEMIR) 100 UNITS/ML UNITS SQ SCH (22:05)
[2018-01-13] MEDS: INSULIN SLIDING SCALE (NOVOLOG) 1 VIAL SQ SCH ×4 (06:04→21:54)
[2018-01-13] MEDS: ACETAMINOPHEN 325 MG TABLET (FP) PO PRN ×3 (06:13→19:44)
[2018-01-13] MEDS: oxyCODONE HCL 5 MG TABLET PO PRN ×3 (06:13→19:44)
[2018-01-13] MEDS: DOCUSATE SODIUM 100 MG CAPSULE (FP) PO SCH ×3 (06:14→21:54)
[2018-01-13] MEDS: glipiZIDE 5 MG TABLET (FP) PO SCH ×2 (06:14→17:48)
[2018-01-13 07:05] LABS: BASO % 0.9 % (0-2.0); HEMATOCRIT 28.9 % (35.4-49); HEMOGLOBIN 9.5 GM/dL (11.7-16.9); LYMPH % 6.3 % (8-40); MCHC 32.7 g/dl (32.0-35.9); MEAN CELL VOLUME 94.6 fl (80-96); MEAN PLT VOLUME 8.2 fl (7.5-11.1); MONO % 6.8 % (3.8-10.2); PLATELET COUNT 228 K/MM3 (134-434); RBC 3.06 M/mm3 (4.00-5.60); RDW 16.8 % (11.9-15.9); WHITE BLOOD COUNT 14.1 K/mm3 (4.0-10.0)
[2018-01-13 07:32] LABS: ALBUMIN 3.1 g/dl (3.4-5.0); ALK PHOS 86 U/L (45-117); ANION GAP 5 MMOL/L (8-16); BILIRUBIN,TOTAL 0.7 mg/dL (0.2-1); BLOOD UREA NITROGEN 66 mg/dL (7-18); CALCIUM 8.8 mg/dL (8.5-10.1); CHLORIDE 100 mmol/L (98-107); CO2 30 mmol/L (21-32); CREATININE 2.1 mg/dL (0.55-1.3); GLUCOSE,RANDOM 78 mg/dL (74-106); MAGNESIUM 2.6 mg/dL (1.8-2.4); POTASSIUM 4.7 mmol/L (3.5-5.1); SGOT/AST 20 U/L (15-37); SGPT/ALT 16 U/L (13-61); SODIUM 135 mmol/L (136-145); TOT PROT 6.6 g/dl (6.4-8.2)
[2018-01-13] MEDS ORDERED: PT OWN MED DRAWER 7, Y5N ONE ×2 (09:42→21:48)
[2018-01-13] MEDS: BUDESONIDE/FORMETEROL FUMARATE 160/4.5 mcg INHALER IH SCH ×2 (09:48→21:55)
[2018-01-13] MEDS: POLYETHYLENE GLYCOL 3350 119 GM BTL PO SCH ×2 (09:49→21:54)
[2018-01-13] MEDS: ASPIRIN COATED 81 MG TABLET.EC PO SCH (09:50)
[2018-01-13] MEDS: CARVEDILOL 25 MG TABLET (FP) PO SCH ×2 (09:50→21:54)
[2018-01-13] MEDS: CLOPIDOGREL BISULFATE 75 MG TABLET (FP) PO SCH (09:50)
[2018-01-13 10:00] LABS: ANISOCYTOSIS 1+; MACROCYTOSIS 0; OVALOCYTE 1+; PLATELET ESTIMATE NORMAL; TEAR DROP CELLS 1+
[2018-01-13] MEDS: ALBUTEROL SO4 0.083% IH SOL 2.5 MG/3 ML VIAL.NEB. NEB PRN (10:10)
--- NOTE | 2018-01-13 12:05 | PN ---
Progress Note, Physician History of Present Illness: PULMONARY ALERT,OOB-CHAIR,STILL C/O SOB WITH EXERTION AND LAYING DOWN - Current Medication List Current Medications: Active Medications Acetaminophen (Tylenol -) 325 mg PO Q6H PRN PRN Reason: PAIN LEVEL 7 - 10 Last Admin: 01/13/18 06:13 Dose: 325 mg Albuterol Sulfate (Ventolin 0.083% Nebulizer Soln -) 1 amp NEB Q4H PRN PRN Reason: SHORT OF BREATH/WHEEZING Last Admin: 01/13/18 10:10 Dose: 1 amp Aspirin (Ecotrin -) 81 mg PO DAILY [facility] Last Admin: 01/13/18 09:50 Dose: 81 mg Atorvastatin Calcium (Lipitor -) 20 mg PO HS [facility] Last Admin: 01/12/18 21:59 Dose: 20 mg Budesonide/Formoterol Fumarate (Symbicort 160/4.5mcg -) 2 puff IH BID [facility] Last Admin: 01/13/18 09:48 Dose: 2 puff Bupropion HCl (Wellbutrin Xl -) 150 mg PO DAILY [facility] Last Admin: 01/13/18 09:50 Dose: 150 mg Carvedilol (Coreg -) 25 mg PO BID [facility] Last Admin: 01/13/18 09:50 Dose: 25 mg Clopidogrel Bisulfate (Plavix -) 75 mg PO DAILY [facility] Last Admin: 01/13/18 09:50 Dose: 75 mg Docusate Sodium (Colace -) 100 mg PO TID [facility] Last Admin: 01/13/18 06:14 Dose: 100 mg Glipizide (Glucotrol -) 5 mg PO BID@0700,1630 [facility] Last Admin: 01/13/18 06:14 Dose: 5 mg Insulin Aspart (Novolog Vial Sliding Scale -) 1 vial SQ [facility]; Protocol Last Admin: 01/13/18 11:59 Dose: 2 units Insulin Detemir (Levemir Vial) [address] [facility] Last Admin: 01/12/18 22:05 Dose: 10 units Oxycodone HCl (Roxicodone -) 10 mg PO Q6H PRN PRN Reason: PAIN LEVEL 4 - 6 Last Admin: 01/13/18 06:13 Dose: 10 mg Polyethylene Glycol (Miralax (For Daily Use) -) 17 gm PO BID [facility] Last Admin: 01/13/18 09:49 Dose: 17 gm Zolpidem Tartrate (Ambien -) 10 mg PO HS PRN PRN Reason: INSOMNIA Last Admin: 01/12/18 22:00 Dose: 10 mg - Objective Vital Signs: Vital Signs Temperature 97.4 F L 01/13/18 09:47 Pulse Rate 95 H 01/13/18 09:47 Respiratory Rate 19 01/13/18 09:47 Blood Pressure 149/78 01/13/18 09:47 O2 Sat by Pulse Oximetry (%) 98 01/12/18 21:00 Constitutional: Yes: Well Nourished, Calm Eyes: Yes: WNL HENT: Yes: WNL Neck: Yes: WNL Cardiovascular: Yes: Regular Rate and Rhythm, S1, S2 Respiratory: Yes: Rales (BILATERAL CRACKLES) Gastrointestinal: Yes: Normal Bowel Sounds, Soft Extremities: Yes: WNL Edema: Yes Labs: CBC, BMP 01/13/18 06:00 01/13/18 06:00 INR, PTT INR 1.23 (0.83-1.09) H 01/06/18 22:00 Problem List - Problems (1) COPD (chronic obstructive pulmonary disease) Code(s): J44.9 - CHRONIC OBSTRUCTIVE PULMONARY DISEASE, UNSPECIFIED (2) Shortness of breath Code(s): R06.02 - SHORTNESS OF BREATH (3) Acute exacerbation of CHF (congestive heart failure) Code(s): I50.9 - HEART FAILURE, UNSPECIFIED Qualifiers: Heart failure type: systolic Qualified Code(s): I50.23 - Acute on chronic systolic (congestive) heart failure (4) Atrial tachycardia Code(s): I47.1 - SUPRAVENTRICULAR TACHYCARDIA (5) Chronic kidney disease (CKD) Code(s): N18.9 - CHRONIC KIDNEY DISEASE, UNSPECIFIED Qualifiers: Chronic kidney disease stage: stage 3 (moderate) Qualified Code(s): N18.3 - Chronic kidney disease, stage 3 (moderate) (6) S/P AVR Code(s): Z95.2 - PRESENCE OF PROSTHETIC HEART VALVE (7) CAD (coronary artery disease) Code(s): I25.10 - ATHSCL HEART DISEASE OF [place] CORONARY ARTERY W/O ANG PCTRS Qualifiers: [place] vs. 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 of 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 (9) Pulmonary hypertension Code(s): I27.2 - OTHER SECONDARY PULMONARY HYPERTENSION * DO NOT USE * (10) S/P CABG x 3 Code(s): Z95.1 - PRESENCE OF AORTOCORONARY BYPASS GRAFT (11) Acute on chronic diastolic CHF (congestive heart failure) Code(s): I50.33 - ACUTE ON CHRONIC DIASTOLIC (CONGESTIVE) HEART FAILURE Assessment/Plan A/P Acute on Chronic Systolic Heart Failure Pulmonary HTN CAD s/p CABG h/o bio AVR Atrial Tachycardia Chronic Hypoxic Respiratory Failure COPD PAD HTN DM PAD CKD Smoker - monitor urine output, creatinine - daily weights - O2 to keep Spo2 >90% - inhaled bronchodilators - DVT prophylaxis - monitor lytes,renal function Problem List - Problems (1) Acute on chronic systolic (congestive) heart failure Code(s): I50.23 - ACUTE ON CHRONIC SYSTOLIC (CONGESTIVE) HEART FAILURE
--- NOTE | 2018-01-13 12:14 | PN ---
Progress Note (short form) - Note Progress Note: Chief Complaint: chf History of Present Illness: shortness of breath improved. no chest pain, palps dizzy Current Medications Acetaminophen (Tylenol -) 325 mg PO Q6H PRN PRN Reason: PAIN LEVEL 7 - 10 Last Admin: 01/12/18 06:36 Dose: 325 mg Albuterol Sulfate (Ventolin 0.083% Nebulizer Soln -) 1 amp NEB Q4H PRN PRN Reason: SHORT OF BREATH/WHEEZING Last Admin: 01/12/18 00:21 Dose: 1 amp Aspirin (Ecotrin -) 81 mg PO DAILY [facility] Last Admin: 01/11/18 09:01 Dose: 81 mg Atorvastatin Calcium (Lipitor -) 20 mg PO HS [facility] Last Admin: 01/11/18 21:43 Dose: 20 mg Budesonide/Formoterol Fumarate (Symbicort 160/4.5mcg -) 2 puff IH BID [facility] Last Admin: 01/11/18 21:44 Dose: 2 puff Bupropion HCl (Wellbutrin Xl -) 150 mg PO DAILY [facility] Last Admin: 01/11/18 09:01 Dose: 150 mg Carvedilol (Coreg -) 25 mg PO BID [facility] Last Admin: 01/11/18 21:43 Dose: 25 mg Clopidogrel Bisulfate (Plavix -) 75 mg PO DAILY [facility] Last Admin: 01/11/18 09:01 Dose: 75 mg Docusate Sodium (Colace -) 100 mg PO TID [facility] Last Admin: 01/12/18 06:35 Dose: 100 mg Glipizide (Glucotrol -) 5 mg PO BID@0700,1630 [facility] Last Admin: 01/12/18 06:35 Dose: 5 mg Insulin Aspart (Novolog Vial Sliding Scale -) [address] [facility]; Protocol Last Admin: 01/12/18 06:31 Dose: Not Given Insulin Detemir (Levemir Vial) 10 units SQ [facility] Last Admin: 01/11/18 21:45 Dose: 10 units Oxycodone HCl (Roxicodone -) 10 mg PO Q6H PRN PRN Reason: PAIN LEVEL 4 - 6 Last Admin: 01/12/18 06:35 Dose: 10 mg Polyethylene Glycol (Miralax (For Daily Use) -) 17 gm PO BID [facility] Last Admin: 01/11/18 21:43 Dose: 17 gm Zolpidem Tartrate (Ambien -) 10 mg PO HS PRN PRN Reason: INSOMNIA Last Admin: 01/11/18 22:33 Dose: 10 mg - Objective Vital Signs: Vital Signs Period Temp Pulse Resp BP Sys/El Pulse Ox Last 24 Hr 97.4 F-98.5 F 65-96 16-18 121-155/64-92 98 Constitutional: Yes: Well Nourished, No Distress, Calm Cardiovascular: Yes: Pulse Irregular, S1, S2. No: JVD, Gallop, Murmur Respiratory: Yes: Regular, Rales (L base). 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, sinus echo 06/2015: mild lve, mod-sev dec lvef, mod lae, nl rv size, mild dec rv fcn, mild-mod mr, mild tr, nl avr fcn, rvsp 30-40 echo 06/2016: sev dec lvef, global hk, rv tds, trinity, mod-sev mr, mod tr, rvsp 50- 60 mibi 09/2014: large inf scar, mod anteroapical ischemia, lvef 25% mibi 06/2016 (pers): non-diagnostic STs; large area inferior/inferolateral/ lateral scar; no ischemia; severe LV cavity dilation; global HK with akinesis of inferior/inferolat/lateral allan; EF 16% tele: AF/flutter, [employer] vs Vs a/p: 62 m hx copd, cabgx3 2012, bio avr 2012, pad s/p b/l sfa occlusions, syst chf s/p medtronic icd, htn, hld, a-tach, here with back pain, sob. Dyspnea on exertion, acute systolic CHF exacerbation - + dietary indiscretion here and at home--pt education provided. likely the reason for repeated HF exacerbations. - weight 190 lbs on last dc - was on furosemide 80 mg PO daily at home (incr'd from 40 qd after last HF discharge) - 01/09 SOB improving, still has JVD. lasix IV 40 mg BID continued - 01/10 Cr 2.2 ->2.5, held PM lasix dose - 01/11: no documented standing wt on DOA here. wt has been 192 consistently since. today 196 but appears euvolemic--erroneous? Na down. bun/creat rising past few days. - 01/12 weight up 196->198 lbs, BUN rising Cr stable 2.3. dyspnea this AM. will give lasix 40 mg IV x 1 now and reassess in AM - 01/13 symptoms improving, appears euvolemic. transition to PO lasix, 80 mg daily - cont bb, not on ACEI due to h/o hyperkalemia - stable for discharge from cardiac perspective copd: - stable cad/hx of CABG 2012 -no recent angina/ischemia -present sx's not suggestive for angina -cont prior cad med regimen: dapt, statin, bb, ccb bio avr: -nl fcn on echo 06/20 mitral regurgitation: -likely functional MR, mild-mod on echo 06/19, then "mod-severe" when here 06/20 with suspected acute chf and pulm pressures up (though at risk for overestimation of MR severity on that echo report) -valve morphology not described (tethered leaflets?) -no murmur on exam -reassess MR severity on echo as outpt CKD: -baseline creatinine 2-2.8; -renal fxn stable here pad: -stable, no claudication, cont current cardiac meds s/p icd: -no shocks -routine outpt monitoring htn: -cont home meds hld: -cont statin atach: -minimal episodes seen in past on icd checks -cont bb anemia: -chronic, stable counts here vs baseline -per pmd `
--- NOTE | 2018-01-13 12:28 | PN ---
Progress Note, Physician History of Present Illness: Pt seen and examined at bedside. He is awake and alert. He feels that his breathing is at baseline. - Current Medication List Current Medications: Active Medications Acetaminophen (Tylenol -) 325 mg PO Q6H PRN PRN Reason: PAIN LEVEL 7 - 10 Last Admin: 01/13/18 06:13 Dose: 325 mg Albuterol Sulfate (Ventolin 0.083% Nebulizer Soln -) 1 amp NEB Q4H PRN PRN Reason: SHORT OF BREATH/WHEEZING Last Admin: 01/13/18 10:10 Dose: 1 amp Aspirin (Ecotrin -) 81 mg PO DAILY [facility] Last Admin: 01/13/18 09:50 Dose: 81 mg Atorvastatin Calcium (Lipitor -) 20 mg PO HS [facility] Last Admin: 01/12/18 21:59 Dose: 20 mg Budesonide/Formoterol Fumarate (Symbicort 160/4.5mcg -) 2 puff IH BID [facility] Last Admin: 01/13/18 09:48 Dose: 2 puff Bupropion HCl (Wellbutrin Xl -) 150 mg PO DAILY [facility] Last Admin: 01/13/18 09:50 Dose: 150 mg Carvedilol (Coreg -) 25 mg PO BID [facility] Last Admin: 01/13/18 09:50 Dose: 25 mg Clopidogrel Bisulfate (Plavix -) 75 mg PO DAILY [facility] Last Admin: 01/13/18 09:50 Dose: 75 mg Docusate Sodium (Colace -) 100 mg PO TID [facility] Last Admin: 01/13/18 06:14 Dose: 100 mg Glipizide (Glucotrol -) 5 mg PO BID@0700,1630 [facility] Last Admin: 01/13/18 06:14 Dose: 5 mg Insulin Aspart (Novolog Vial Sliding Scale -) [address] [facility]; Protocol Last Admin: 01/13/18 11:59 Dose: 2 units Insulin Detemir (Levemir Vial) 10 units SQ [facility] Last Admin: 01/12/18 22:05 Dose: 10 units Oxycodone HCl (Roxicodone -) 10 mg PO Q6H PRN PRN Reason: PAIN LEVEL 4 - 6 Last Admin: 01/13/18 06:13 Dose: 10 mg Polyethylene Glycol (Miralax (For Daily Use) -) 17 gm PO BID [facility] Last Admin: 01/13/18 09:49 Dose: 17 gm Zolpidem Tartrate (Ambien -) 10 mg PO HS PRN PRN Reason: INSOMNIA Last Admin: 01/12/18 22:00 Dose: 10 mg - Objective Vital Signs: Vital Signs Temperature 97.4 F L 01/13/18 09:47 Pulse Rate 95 H 01/13/18 09:47 Respiratory Rate 19 01/13/18 09:47 Blood Pressure 149/78 01/13/18 09:47 O2 Sat by Pulse Oximetry (%) 98 01/12/18 21:00 Constitutional: Yes: Calm Eyes: Yes: Conjunctiva Clear HENT: Yes: Atraumatic Cardiovascular: Yes: S1, S2 Respiratory: Yes: On Nasal O2 Gastrointestinal: Yes: Soft Genitourinary: Yes: WNL Musculoskeletal: Yes: WNL Edema: Yes Edema: LLE: Trace, RLE: Trace Neurological: Yes: Oriented Psychiatric: Yes: Oriented Labs: CBC, BMP 01/13/18 06:00 01/13/18 06:00 INR, PTT INR 1.23 (0.83-1.09) H 01/06/18 22:00 Problem List - Problems (1) COPD (chronic obstructive pulmonary disease) Code(s): J44.9 - CHRONIC OBSTRUCTIVE PULMONARY DISEASE, UNSPECIFIED (2) Depression Code(s): F32.9 - MAJOR DEPRESSIVE DISORDER, SINGLE EPISODE, UNSPECIFIED Qualifiers: Depression Type: major depressive disorder Major depression recurrence: unspecified whether recurrent Active/Remission status: currently active Psychotic features: without psychotic features (3) CHF (congestive heart failure) Code(s): I50.9 - HEART FAILURE, UNSPECIFIED Qualifiers: Heart failure type: unspecified Heart failure chronicity: acute on chronic Qualified Code(s): I50.9 - Heart failure, unspecified Assessment/Plan Current Medications Generic Name Dose Route Start Last Admin Trade Name Freq PRN Reason Stop Dose Admin Acetaminophen 325 mg 01/07/18 02:00 01/13/18 06:13 Tylenol - PO 325 mg Q6H PRN Administration PAIN LEVEL 7 - 10 Albuterol Sulfate 1 amp 01/12/18 00:04 01/13/18 10:10 Ventolin 0.083% Nebulizer Soln - NEB 1 amp Q4H PRN Administration SHORT OF BREATH/WHEEZING Aspirin 81 mg 01/07/18 10:00 01/13/18 09:50 Ecotrin - PO 81 mg DAILY MANJU Administration Atorvastatin Calcium 20 mg 01/08/18 10:58 01/12/18 21:59 Lipitor - PO 20 mg HS [facility]U Administration Budesonide/Formoterol Fumarate 2 puff 01/07/18 10:00 01/13/18 09:48 Symbicort 160/4.5mcg - IH 2 puff BID [facility]JU Administration Bupropion HCl 150 mg 01/08/18 12:15 01/13/18 09:50 Wellbutrin Xl - PO 150 mg DAILY [facility] Administration Carvedilol 25 mg 01/07/18 10:00 01/13/18 09:50 Coreg - PO 25 mg BID [facility]U Administration Clopidogrel Bisulfate 75 mg 01/07/18 10:00 01/13/18 09:50 Plavix - PO 75 mg DAILY [facility] Administration Docusate Sodium 100 mg 01/07/18 14:00 01/13/18 06:14 Colace - PO 100 mg TID MANJU Administration Glipizide 5 mg 01/07/18 16:30 01/13/18 06:14 Glucotrol - PO 5 mg BID@0700,1630 [facility]U Administration Insulin Aspart 1 vial 01/12/18 07:00 01/13/18 11:59 Novolog Vial Sliding Scale - SQ 2 units ACHS [facility]U Administration Protocol Insulin Detemir 10 units 01/11/18 22:00 01/12/18 22:05 Levemir Vial SQ 10 units HS [facility]U Administration Oxycodone HCl 10 mg 01/10/18 10:55 01/13/18 06:13 Roxicodone - PO 10 mg Q6H PRN Administration PAIN LEVEL 4 - 6 Polyethylene Glycol 17 gm 01/07/18 14:00 01/13/18 09:49 Miralax (For Daily Use) - PO 17 gm BID [facility]U Administration Zolpidem Tartrate 10 mg 01/10/18 02:45 01/12/18 22:00 Ambien - PO 10 mg HS PRN Administration INSOMNIA Laboratory Tests 01/12/18 01/12/18 15:10 15:10 Urine Protein 1+ H Protein/Creatinin Ratio 1.70 Impression 1. CKD 2. proteinuria 3. CAD 4. CHF 5. COPD 6. DM 7. HTN Plan - cont with lasix, can resume home dose - monitor renal function - cont oxygen and monitor pulse ox - low potassium diet - pt follows with Dr Stein - pt does have some proteinuria - will monitor k levels
[2018-01-13] MEDS: FUROSEMIDE 40 MG TABLET (FP) PO SCH (13:16)
--- NOTE | 2018-01-13 15:33 | DS ---
Physical Examination Vital Signs: Vital Signs Temperature 97.2 F L 01/13/18 14:26 Pulse Rate 64 01/13/18 14:26 Respiratory Rate 16 01/13/18 14:26 Blood Pressure 128/67 01/13/18 14:26 O2 Sat by Pulse Oximetry (%) 98 01/12/18 21:00 Constitutional: Yes: Well Nourished, No Distress, Calm Cardiovascular: Yes: WNL, Regular Rate and Rhythm Respiratory: Yes: Regular, CTA Bilaterally, On Nasal O2, Rales (bibasilar- improved), SOB on Exertion (at baseline). No: Accessory Muscle Use, Tachypnea Gastrointestinal: Yes: WNL, Normal Bowel Sounds, Soft. No: Distention, Tenderness Renal/: Yes: WNL Edema: Yes Edema: LLE: Trace, RLE: Trace Neurological: Yes: WNL, Alert, Oriented Psychiatric: Yes: WNL, Alert, Oriented Labs: CBC, BMP 01/13/18 06:00 01/13/18 06:00 Discharge Summary Reason For Visit: CHF SOB Current Active Problems COPD (chronic obstructive pulmonary disease) (Acute) Depression (Acute) Shortness of breath (Acute) CHF (congestive heart failure) (Chronic) Hospital Course: is a 62 year old male who was admitted for acute on chronic CHF exacerbation. Pt is not compliant with low na diet at home, Persian food seen at bedside during admission. Suspect exacerbation 2/2 dietary non compliance. Pt evaluated by cardiology. IV lasix transitioned to po lasix today. Weight stable, symptoms improved. During the course, elevated bun noted, improved with holding diruresis, nephrology evaluated and cleared pt. Pt also evaluated by pulm, copd stable, no further intervention. Discussed with pt and niece the importance of low na diet, pt seen by topper press operator to reinforce low na diet. Discussed regarding goals of care in this pt with advanced chf and copd, informed family that pt will have baseline sob, advised to follow up with cardiology and pcp to discuss goals of care/quality of life. Wellbutrin was also started here for depression. Otherwise, pt is medically stable for discharge home. f/u as directed. 35 minutes spent in discharge planning Condition: Good - Instructions Diet, Activity, Other Instructions: LOW NA DIET INSTRUCTED BY AUTOMOBILE DEALER STOP SMOKING lasix 80mg daily continue levemir 10units at night as directed by PCP, hold if bs<130 or not eating F/U DIRECTED. Referrals: Kanu Truong MD [Primary Care Provider] - 1 Week Anthony Zafar MD [Staff Physician] - 2 Weeks Disposition: VNS/HOME HEALTH CARE - Home Medications Comprehensive Discharge Medication List: Ambulatory Orders Aspirin [Aspirin EC] 81 mg PO DAILY 06/18/15 Clopidogrel Bisulfate [Clopidogrel] 75 mg PO DAILY 06/18/15 Zolpidem Tartrate [Ambien] 10 mg PO HS 06/18/15 Carvedilol [Coreg -] 25 mg PO BID #60 tablet 06/20/15 Psyllium [Metamucil (Sugar-Free) -] 5.85 gm PO BID #1 bottle 06/02/17 Docusate Sodium [Colace -] 100 mg PO TID #90 capsule 09/22/17 Ferrous Sulfate [Feosol] 325 mg PO DAILY 09/22/17 Furosemide [Lasix -] 80 mg PO DAILY 7 Days #7 tablet 11/21/17 Cholecalciferol (Vitamin D3) [Vitamin D3] 2,000 unit PO DAILY #30 capsule Diclofenac Sodium [Voltaren] 2 gm TP TID PRN #3 tube 12/25/17 Lactulose (Oral Use) [Cephulac -] 20 gm PO BID #1 bottle 12/25/17 Oxycodone HCl/Acetaminophen [Percocet 10-325 mg Tablet] 1 each PO QID PRN #120 tablet MDD 4 12/25/17 Budesonide/Formeterol Fumarate [SYMBICORT 160/4.5mcg -] 1 puff IH DAILY inhaler 12/30/17 Cyclobenzaprine HCl 5 mg PO BID #28 tablet 12/30/17 Atorvastatin Ca 20 mg PO HS 01/11/18 Glipizide [Glucotrol -] 5 mg PO BID 01/11/18 Bupropion HCl [Wellbutrin Xl -] 150 mg PO DAILY #14 tab.sr.24h 01/13/18
[2018-01-13] MEDS: ATORVASTATIN CA 20 MG TABLET (FP) PO SCH (21:53)
[2018-01-13] MEDS: INSULIN (LEVEMIR) 100 UNITS/ML UNITS SQ SCH (21:54)
[2018-01-13] MEDS: ZOLPIDEM TARTRATE 5 MG TABLET PO PRN (21:54)
[2018-01-14] MEDS ORDERED: PT OWN MED DRAWER 7, Y5N ONE (05:40)
[2018-01-14] MEDS: DOCUSATE SODIUM 100 MG CAPSULE (FP) PO SCH ×2 (05:44→13:12)
[2018-01-14] MEDS: glipiZIDE 5 MG TABLET (FP) PO SCH (06:05)
[2018-01-14] MEDS: INSULIN SLIDING SCALE (NOVOLOG) 1 VIAL SQ SCH ×2 (06:05→11:56)
[2018-01-14] MEDS: CLOPIDOGREL BISULFATE 75 MG TABLET (FP) PO SCH (09:40)
[2018-01-14] MEDS: POLYETHYLENE GLYCOL 3350 119 GM BTL PO SCH (09:40)
[2018-01-14] MEDS: FUROSEMIDE 40 MG TABLET (FP) PO SCH (09:40)
[2018-01-14] MEDS: ASPIRIN COATED 81 MG TABLET.EC PO SCH (09:40)
[2018-01-14] MEDS: CARVEDILOL 25 MG TABLET (FP) PO SCH (09:40)
[2018-01-14] MEDS: BUDESONIDE/FORMETEROL FUMARATE 160/4.5 mcg INHALER IH SCH (09:41)
[2018-01-14 10:19] VITALS: BMI 27.8
--- NOTE | 2018-01-14 10:59 | PN ---
Progress Note (short form) - Note Progress Note: Chief Complaint: chf History of Present Illness: shortness of breath improved. no chest pain, palps dizzy Current Medications Generic Name Dose Route Start Last Admin Trade Name Freq PRN Reason Stop Dose Admin Acetaminophen 325 mg 01/07/18 02:00 01/13/18 19:44 Tylenol - PO 325 mg Q6H PRN Administration PAIN LEVEL 7 - 10 Albuterol Sulfate 1 amp 01/12/18 00:04 01/13/18 10:10 Ventolin 0.083% Nebulizer Soln - NEB 1 amp Q4H PRN Administration SHORT OF BREATH/WHEEZING Aspirin 81 mg 01/07/18 10:00 01/14/18 09:40 Ecotrin - PO 81 mg DAILY [facility]U Administration Atorvastatin Calcium 20 mg 01/08/18 10:58 01/13/18 21:53 Lipitor - PO 20 mg HS [facility]U Administration Budesonide/Formoterol Fumarate 2 puff 01/07/18 10:00 01/14/18 09:41 Symbicort 160/4.5mcg - IH 2 puff BID MANJU Administration Bupropion HCl 150 mg 01/08/18 12:15 01/14/18 09:40 Wellbutrin Xl - PO 150 mg DAILY [facility]U Administration Carvedilol 25 mg 01/07/18 10:00 01/14/18 09:40 Coreg - PO 25 mg BID [facility]JU Administration Clopidogrel Bisulfate 75 mg 01/07/18 10:00 01/14/18 09:40 Plavix - PO 75 mg DAILY [facility]U Administration Docusate Sodium 100 mg 01/07/18 14:00 01/14/18 05:44 Colace - PO 100 mg TID [facility]U Administration Furosemide 80 mg 01/13/18 12:30 01/14/18 09:40 Lasix - PO 80 mg DAILY [facility]U Administration Glipizide 5 mg 01/07/18 16:30 01/14/18 06:05 Glucotrol - PO 5 mg BID@0700,1630 MANJU Administration Insulin Aspart 1 vial 01/12/18 07:00 01/14/18 06:05 Novolog Vial Sliding Scale - SQ Not Given ACHS [facility] Protocol Insulin Detemir 10 units 01/11/18 22:00 01/13/18 21:54 Levemir Vial SQ 10 units HS [facility]U Administration Oxycodone HCl 10 mg 01/10/18 10:55 01/13/18 19:44 Roxicodone - PO 10 mg Q6H PRN Administration PAIN LEVEL 4 - 6 Polyethylene Glycol 17 gm 01/07/18 14:00 01/14/18 09:40 Miralax (For Daily Use) - PO 17 gm BID [facility]U Administration - Objective Vital Signs: Vital Signs Period Temp Pulse Resp BP Sys/El Pulse Ox Last 24 Hr 97.2 F-98.4 F 61-65 16-20 119-156/65-88 98-98 Constitutional: Yes: Well Nourished, No Distress, Calm Cardiovascular: Yes: Pulse Irregular, S1, S2. No: JVD, Gallop, Murmur Respiratory: Yes: Regular, Rales (L base). 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, sinus echo 06/2015: mild lve, mod-sev dec lvef, mod lae, nl rv size, mild dec rv fcn, mild-mod mr, mild tr, nl avr fcn, rvsp 30-40 echo 06/2016: sev dec lvef, global hk, rv tds, trinity, mod-sev mr, mod tr, rvsp 50- 60 mibi 09/2014: large inf scar, mod anteroapical ischemia, lvef 25% mibi 06/2016 (pers): non-diagnostic STs; large area inferior/inferolateral/ lateral scar; no ischemia; severe LV cavity dilation; global HK with akinesis of inferior/inferolat/lateral allan; EF 16% tele: AF/flutter, 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 Dyspnea on exertion, acute systolic CHF exacerbation - + dietary indiscretion here and at home--pt education provided. likely the reason for repeated HF exacerbations. - weight 190 lbs on last dc - was on furosemide 80 mg PO daily at home (incr'd from 40 qd after last HF discharge) - 01/09 SOB improving, still has JVD. lasix IV 40 mg BID continued - 01/10 Cr 2.2 ->2.5, held PM lasix dose - 01/11: no documented standing wt on DOA here. wt has been 192 consistently since. today 196 but appears euvolemic--erroneous? Na down. bun/creat rising past few days. - 01/12 weight up 196->198 lbs, BUN rising Cr stable 2.3. dyspnea this AM. will give lasix 40 mg IV x 1 now and reassess in AM - 01/13-11 symptoms improving, appears euvolemic. transition to PO lasix, 80 mg daily - cont bb, not on ACEI due to h/o hyperkalemia - stable for discharge from cardiac perspective copd: - stable cad/hx of CABG 2012 -no recent angina/ischemia -present sx's not suggestive for angina -cont prior cad med regimen: dapt, statin, bb, ccb bio avr: -nl fcn on echo 06/20 mitral regurgitation: -likely functional MR, mild-mod on echo 06/19, then "mod-severe" when here 06/20 with suspected acute chf and pulm pressures up (though at risk for overestimation of MR severity on that echo report) -valve morphology not described (tethered leaflets?) -no murmur on exam -reassess MR severity on echo as outpt CKD: -baseline creatinine 2-2.8; -renal fxn stable here pad: -stable, no claudication, cont current cardiac meds s/p icd: -no shocks -routine outpt monitoring htn: -cont home meds hld: -cont statin atach: -minimal episodes seen in past on icd checks -cont bb anemia: -chronic, stable counts here vs baseline -per pmd `
--- NOTE | 2018-01-14 12:38 | PN ---
Progress Note (short form) - Note Progress Note: PULMONARY Feels well. Breathing continues to improve. Less cough, no chest pain. Vital Signs Period Temp Pulse Resp BP Sys/El Pulse Ox Last 24 Hr 97.2 F-98.4 F 61-65 16-20 119-156/65-88 98-98 Gen: NAD at rest Heart: RRR Lung: bibasilar rales Abd: soft, nontender Ext: no edema CBC, BMP 01/13/18 06:00 01/13/18 06:00 Active Medications Acetaminophen (Tylenol -) 325 mg PO Q6H PRN PRN Reason: PAIN LEVEL 7 - 10 Last Admin: 01/13/18 19:44 Dose: 325 mg Albuterol Sulfate (Ventolin 0.083% Nebulizer Soln -) 1 amp NEB Q4H PRN PRN Reason: SHORT OF BREATH/WHEEZING Last Admin: 01/13/18 10:10 Dose: 1 amp Aspirin (Ecotrin -) 81 mg PO DAILY [facility] Last Admin: 01/14/18 09:40 Dose: 81 mg Atorvastatin Calcium (Lipitor -) 20 mg PO HS [facility] Last Admin: 01/13/18 21:53 Dose: 20 mg Budesonide/Formoterol Fumarate (Symbicort 160/4.5mcg -) 2 puff IH BID [facility] Last Admin: 01/14/18 09:41 Dose: 2 puff Bupropion HCl (Wellbutrin Xl -) 150 mg PO DAILY [facility] Last Admin: 01/14/18 09:40 Dose: 150 mg Carvedilol (Coreg -) 25 mg PO BID [facility] Last Admin: 01/14/18 09:40 Dose: 25 mg Clopidogrel Bisulfate (Plavix -) 75 mg PO DAILY [facility] Last Admin: 01/14/18 09:40 Dose: 75 mg Docusate Sodium (Colace -) 100 mg PO TID [facility] Last Admin: 01/14/18 05:44 Dose: 100 mg Furosemide (Lasix -) 80 mg PO DAILY [facility] Last Admin: 01/14/18 09:40 Dose: 80 mg Glipizide (Glucotrol -) 5 mg PO BID@0700,1630 [facility] Last Admin: 01/14/18 06:05 Dose: 5 mg Insulin Aspart (Novolog Vial Sliding Scale -) 1 vial SQ ACHS [facility]; Protocol Last Admin: 01/14/18 11:56 Dose: Not Given Insulin Detemir (Levemir Vial) 10 units SQ HS [facility] Last Admin: 01/13/18 21:54 Dose: 10 units Oxycodone HCl (Roxicodone -) 10 mg PO Q6H PRN PRN Reason: PAIN LEVEL 4 - 6 Last Admin: 01/13/18 19:44 Dose: 10 mg Polyethylene Glycol (Miralax (For Daily Use) -) 17 gm PO BID [facility] Last Admin: 01/14/18 09:40 Dose: 17 gm A/P Acute on Chronic Systolic Heart Failure Pulmonary HTN CAD s/p CABG h/o bio AVR Atrial Tachycardia Chronic Hypoxic Respiratory Failure COPD PAD HTN DM PAD CKD Smoker - continue lasix - monitor urine output, creatinine - daily weights - O2 to keep Spo2 >90% - inhaled bronchodilators - off steroids - rate control with beta christian - DVT prophylaxis Problem List - Problems (1) Acute on chronic systolic (congestive) heart failure Code(s): I50.23 - ACUTE ON CHRONIC SYSTOLIC (CONGESTIVE) HEART FAILURE
--- NOTE | 2018-01-14 15:59 | PN ---
Progress Note, Physician History of Present Illness: Pt seen and examined at bedside. He is awake and alert. He feels that his breathing is at baseline. - Current Medication List Current Medications: Active Medications Acetaminophen (Tylenol -) 325 mg PO Q6H PRN PRN Reason: PAIN LEVEL 7 - 10 Last Admin: 01/13/18 19:44 Dose: 325 mg Albuterol Sulfate (Ventolin 0.083% Nebulizer Soln -) 1 amp NEB Q4H PRN PRN Reason: SHORT OF BREATH/WHEEZING Last Admin: 01/13/18 10:10 Dose: 1 amp Aspirin (Ecotrin -) 81 mg PO DAILY [facility] Last Admin: 01/14/18 09:40 Dose: 81 mg Atorvastatin Calcium (Lipitor -) 20 mg PO HS [facility] Last Admin: 01/13/18 21:53 Dose: 20 mg Budesonide/Formoterol Fumarate (Symbicort 160/4.5mcg -) 2 puff IH BID [facility] Last Admin: 01/14/18 09:41 Dose: 2 puff Bupropion HCl (Wellbutrin Xl -) 150 mg PO DAILY [facility] Last Admin: 01/14/18 09:40 Dose: 150 mg Carvedilol (Coreg -) 25 mg PO BID [facility] Last Admin: 01/14/18 09:40 Dose: 25 mg Clopidogrel Bisulfate (Plavix -) 75 mg PO DAILY [facility] Last Admin: 01/14/18 09:40 Dose: 75 mg Docusate Sodium (Colace -) 100 mg PO TID [facility] Last Admin: 01/14/18 13:12 Dose: 100 mg Furosemide (Lasix -) 80 mg PO DAILY [facility] Last Admin: 01/14/18 09:40 Dose: 80 mg Glipizide (Glucotrol -) 5 mg PO BID@0700,1630 [facility] Last Admin: 01/14/18 06:05 Dose: 5 mg Insulin Aspart (Novolog Vial Sliding Scale -) 1 vial SQ [facility]; Protocol Last Admin: 01/14/18 11:56 Dose: Not Given Insulin Detemir (Levemir Vial) 10 units SQ [facility] Last Admin: 01/13/18 21:54 Dose: 10 units Oxycodone HCl (Roxicodone -) 10 mg PO Q6H PRN PRN Reason: PAIN LEVEL 4 - 6 Last Admin: 01/13/18 19:44 Dose: 10 mg Polyethylene Glycol (Miralax (For Daily Use) -) 17 gm PO BID [facility] Last Admin: 01/14/18 09:40 Dose: 17 gm - Objective Vital Signs: Vital Signs Temperature 98.4 F 01/14/18 08:35 Pulse Rate 62 01/14/18 08:35 Respiratory Rate 20 01/14/18 08:35 Blood Pressure 132/88 01/14/18 08:35 O2 Sat by Pulse Oximetry (%) 98 01/14/18 08:35 Constitutional: Yes: Calm Eyes: Yes: Conjunctiva Clear HENT: Yes: Atraumatic Neck: Yes: Supple Cardiovascular: Yes: S1, S2 Respiratory: Yes: On Nasal O2 Gastrointestinal: Yes: Soft Genitourinary: Yes: WNL Edema: Yes Edema: LLE: Trace, RLE: Trace Neurological: Yes: Oriented Psychiatric: Yes: Oriented Labs: CBC, BMP 01/13/18 06:00 01/13/18 06:00 INR, PTT INR 1.23 (0.83-1.09) H 01/06/18 22:00 Problem List - Problems (1) COPD (chronic obstructive pulmonary disease) Code(s): J44.9 - CHRONIC OBSTRUCTIVE PULMONARY DISEASE, UNSPECIFIED (2) Depression Code(s): F32.9 - MAJOR DEPRESSIVE DISORDER, SINGLE EPISODE, UNSPECIFIED Qualifiers: Depression Type: major depressive disorder Major depression recurrence: unspecified whether recurrent Active/Remission status: currently active Psychotic features: without psychotic features (3) CHF (congestive heart failure) Code(s): I50.9 - HEART FAILURE, UNSPECIFIED Qualifiers: Heart failure type: unspecified Heart failure chronicity: acute on chronic Qualified Code(s): I50.9 - Heart failure, unspecified Assessment/Plan Current Medications Generic Name Dose Route Start Last Admin Trade Name Freq PRN Reason Stop Dose Admin Acetaminophen 325 mg 01/07/18 02:00 01/13/18 19:44 Tylenol - PO 325 mg Q6H PRN Administration PAIN LEVEL 7 - 10 Albuterol Sulfate 1 amp 01/12/18 00:04 01/13/18 10:10 Ventolin 0.083% Nebulizer Soln - NEB 1 amp Q4H PRN Administration SHORT OF BREATH/WHEEZING Aspirin 81 mg 01/07/18 10:00 01/14/18 09:40 Ecotrin - PO 81 mg DAILY [facility] Administration Atorvastatin Calcium 20 mg 01/08/18 10:58 01/13/18 21:53 Lipitor - PO 20 mg HS [facility] Administration Budesonide/Formoterol Fumarate 2 puff 01/07/18 10:00 01/14/18 09:41 Symbicort 160/4.5mcg - IH 2 puff BID [facility] Administration Bupropion HCl 150 mg 01/08/18 12:15 01/14/18 09:40 Wellbutrin Xl - PO 150 mg DAILY [facility] Administration Carvedilol 25 mg 01/07/18 10:00 01/14/18 09:40 Coreg - PO 25 mg BID [facility] Administration Clopidogrel Bisulfate 75 mg 01/07/18 10:00 01/14/18 09:40 Plavix - PO 75 mg DAILY [facility] Administration Docusate Sodium 100 mg 01/07/18 14:00 01/14/18 13:12 Colace - PO 100 mg TID [facility] Administration Furosemide 80 mg 01/13/18 12:30 01/14/18 09:40 Lasix - PO 80 mg DAILY [facility] Administration Glipizide 5 mg 01/07/18 16:30 01/14/18 06:05 Glucotrol - PO 5 mg BID@0700,1630 [facility] Administration Insulin Aspart 1 vial 01/12/18 07:00 01/14/18 11:56 Novolog Vial Sliding Scale - SQ Not Given ACHS [facility] Protocol Insulin Detemir 10 units 01/11/18 22:00 01/13/18 21:54 Levemir Vial SQ 10 units HS [facility] Administration Oxycodone HCl 10 mg 01/10/18 10:55 01/13/18 19:44 Roxicodone - PO 10 mg Q6H PRN Administration PAIN LEVEL 4 - 6 Polyethylene Glycol 17 gm 01/07/18 14:00 01/14/18 09:40 Miralax (For Daily Use) - PO 17 gm BID [facility] Administration Impression 1. CKD 2. proteinuria 3. CAD 4. CHF 5. COPD 6. DM 7. HTN Plan - cont lasix - no new labs - pt will follow with Dr Stein - pt waiting for home oxygen - low potassium diet - not on deidra or arb secondary to hyperkalemia - will monitor k levels
[2018-01-14 16:02] VITALS: BP 143/68; PULSE 63; TEMP 97.6
--- NOTE | 2018-01-14 16:08 | PN ---
Progress Note, Physician Chief Complaint: Pt sitting in chair in no acute distress Denies any chest pain, worsening sob, n/v/d, unilateral weakness. - Current Medication List Current Medications: Active Medications Acetaminophen (Tylenol -) 325 mg PO Q6H PRN PRN Reason: PAIN LEVEL 7 - 10 Last Admin: 01/13/18 19:44 Dose: 325 mg Albuterol Sulfate (Ventolin 0.083% Nebulizer Soln -) 1 amp NEB Q4H PRN PRN Reason: SHORT OF BREATH/WHEEZING Last Admin: 01/13/18 10:10 Dose: 1 amp Aspirin (Ecotrin -) 81 mg PO DAILY [facility] Last Admin: 01/14/18 09:40 Dose: 81 mg Atorvastatin Calcium (Lipitor -) 20 mg PO HS [facility] Last Admin: 01/13/18 21:53 Dose: 20 mg Budesonide/Formoterol Fumarate (Symbicort 160/4.5mcg -) 2 puff IH BID [facility] Last Admin: 01/14/18 09:41 Dose: 2 puff Bupropion HCl (Wellbutrin Xl -) 150 mg PO DAILY [facility] Last Admin: 01/14/18 09:40 Dose: 150 mg Carvedilol (Coreg -) 25 mg PO BID [facility] Last Admin: 01/14/18 09:40 Dose: 25 mg Clopidogrel Bisulfate (Plavix -) 75 mg PO DAILY [facility] Last Admin: 01/14/18 09:40 Dose: 75 mg Docusate Sodium (Colace -) 100 mg PO TID [facility] Last Admin: 01/14/18 13:12 Dose: 100 mg Furosemide (Lasix -) 80 mg PO DAILY [facility] Last Admin: 01/14/18 09:40 Dose: 80 mg Glipizide (Glucotrol -) 5 mg PO BID@0700,1630 [facility] Last Admin: 01/14/18 06:05 Dose: 5 mg Insulin Aspart (Novolog Vial Sliding Scale -) 1 vial SQ [facility]; Protocol Last Admin: 01/14/18 11:56 Dose: Not Given Insulin Detemir (Levemir Vial) 10 units SQ [facility] Last Admin: 01/13/18 21:54 Dose: 10 units Oxycodone HCl (Roxicodone -) 10 mg PO Q6H PRN PRN Reason: PAIN LEVEL 4 - 6 Last Admin: 01/13/18 19:44 Dose: 10 mg Polyethylene Glycol (Miralax (For Daily Use) -) 17 gm PO BID [facility] Last Admin: 01/14/18 09:40 Dose: 17 gm - Objective Vital Signs: Vital Signs Temperature 97.6 F 01/14/18 14:05 Pulse Rate 63 01/14/18 14:05 Respiratory Rate 18 01/14/18 14:05 Blood Pressure 143/68 01/14/18 14:05 O2 Sat by Pulse Oximetry (%) 98 01/14/18 08:35 Constitutional: Yes: Well Nourished, No Distress, Calm Cardiovascular: Yes: Regular Rate and Rhythm Respiratory: Yes: Regular, Diminished, On Nasal O2, SOB on Exertion. No: Accessory Muscle Use, Tachypnea, Wheezes Gastrointestinal: Yes: WNL, Normal Bowel Sounds, Soft. No: Distention, Tenderness Genitourinary: Yes: WNL Edema: Yes Edema: LLE: Trace, RLE: Trace Neurological: Yes: WNL, Alert, Oriented Psychiatric: Yes: WNL, Alert, Oriented Labs: CBC, BMP 01/13/18 06:00 01/13/18 06:00 INR, PTT INR 1.23 (0.83-1.09) H 01/06/18 22:00 Assessment/Plan (1) Acute exacerbation of CHF (congestive heart failure) Assessment/Plan: improved po lasix cardiology cleared Code(s): I50.9 - HEART FAILURE, UNSPECIFIED Qualifiers: Heart failure type: systolic Qualified Code(s): I50.23 - Acute on chronic systolic (congestive) heart failure (2) Shortness of breath Assessment/Plan: improved 2/2 chf exacerbation and chronic chf, advanced copd continue O2 via nc Code(s): R06.02 - SHORTNESS OF BREATH (3) CHF (congestive heart failure) Assessment/Plan: s/p icd dry weight:192-196lbs as above Code(s): I50.9 - HEART FAILURE, UNSPECIFIED (4) COPD (chronic obstructive pulmonary disease) Assessment/Plan: chronic, O2 dependent continue nebs pulm following Code(s): J44.9 - CHRONIC OBSTRUCTIVE PULMONARY DISEASE, UNSPECIFIED (5) Chronic kidney disease (CKD) Assessment/Plan: stable nephrology cleared Code(s): N18.9 - CHRONIC KIDNEY DISEASE, UNSPECIFIED Qualifiers: Chronic kidney disease stage: stage 3 (moderate) Qualified Code(s): N18.3 - Chronic kidney disease, stage 3 (moderate) (6) CAD (coronary artery disease) Assessment/Plan: s/p cabgx 3 continue asa/statin/plavix Code(s): I25.10 - ATHSCL HEART DISEASE OF [place] CORONARY ARTERY W/O ANG PCTRS Qualifiers: [place] vs. transplanted heart: [place] heart Associated angina: without angina (7) Diabetes Assessment/Plan: controlled insulin levemir glipizide monitor Code(s): E11.9 - TYPE 2 DIABETES MELLITUS WITHOUT COMPLICATIONS Qualifiers: Diabetes mellitus type: type 2 Diabetes mellitus terminal manager insulin use: with terminal manager use Diabetes mellitus complication status: with kidney complications Diabetes mellitus complication detail: with chronic kidney disease Chronic kidney disease stage: stage 3 (moderate) Qualified Code(s): E11.22 - Type 2 diabetes mellitus with diabetic chronic kidney disease; N18.3 - Chronic kidney disease, stage 3 (moderate); Z79.4 - terminal manager (current) use of insulin (8) HTN (hypertension) Assessment/Plan: controlled continue carvedilol meds reconciled with pt's pharmacy monitor Code(s): I10 - ESSENTIAL (PRIMARY) HYPERTENSION Qualifiers: Hypertension type: essential hypertension Qualified Code(s): I10 - Essential (primary) hypertension (10) Osteoarthritis, multiple sites Assessment/Plan: stable Code(s): M15.9 - POLYOSTEOARTHRITIS, UNSPECIFIED Qualifiers: Osteoarthritis type: primary Qualified Code(s): M15.0 - Primary generalized (osteo)arthritis (11) Low back pain Assessment/Plan: chronic PT analgesics prn Code(s): M54.5 - LOW BACK PAIN Qualifiers: Chronicity: chronic (12) Anemia Assessment/Plan: chronic hg/hct stable monitor Code(s): D64.9 - ANEMIA, UNSPECIFIED Qualifiers: Anemia type: due to chronic kidney disease Chronic kidney disease stage: stage 3 (moderate) Qualified Code(s): N18.3 - Chronic kidney disease, stage 3 (moderate); D63.1 - Anemia in chronic kidney disease (13) Peripheral vascular disease Assessment/Plan: pad, stable continue statin/plavix/asa Code(s): I73.9 - PERIPHERAL VASCULAR DISEASE, UNSPECIFIED (14) Depression Assessment/Plan: improved continue wellbutrin Code(s): F32.9 - MAJOR DEPRESSIVE DISORDER, SINGLE EPISODE, UNSPECIFIED Qualifiers: Depression Type: major depressive disorder Major depression recurrence: unspecified whether recurrent Active/Remission status: currently active Psychotic features: without psychotic features Discharge: pt medically cleared for discharge.
== END 2018-01-14 17:23 | disposition home health service (06) | DRG 291 ==
LOC: JER 18:01 → JERBED 23:54 → UNDOADMIN 01-07 01:41 → JERBED 01-07 01:41 → J4S 01-07 18:08
PROVIDERS: ADMIT Internal Medicine; ATTEND Internal Medicine
DX: I13.0 Hypertensive heart and chronic kidney disease with heart failure and stage 1 through stage 4 chronic kidney disease, or unspecified chronic kidney disease (principal); I50.23 Acute on chronic systolic (congestive) heart failure; I24.8 Other forms of acute ischemic heart disease; J44.1 Chronic obstructive pulmonary disease with (acute) exacerbation; J96.11 Chronic respiratory failure with hypoxia; I47.1 Supraventricular tachycardia; E11.22 Type 2 diabetes mellitus with diabetic chronic kidney disease; I25.10 Atherosclerotic heart disease of native coronary artery without angina pectoris; N18.3 Chronic kidney disease, stage 3 (moderate); Z95.1 Presence of aortocoronary bypass graft; Z99.81 Dependence on supplemental oxygen; E78.00 Pure hypercholesterolemia, unspecified; I48.91 Unspecified atrial fibrillation; D64.9 Anemia, unspecified; Z95.810 Presence of automatic (implantable) cardiac defibrillator; M54.5 Low back pain; E87.5 Hyperkalemia; I34.0 Nonrheumatic mitral (valve) insufficiency; I27.20 Pulmonary hypertension, unspecified; F17.210 Nicotine dependence, cigarettes, uncomplicated; Z79.84 Long term (current) use of oral hypoglycemic drugs
CPT/HCPCS: 36415; 71045-TC-FY; 80048; 80053; 80061; 81003; 81015; 82570; 82962; 83036; 83721; 83735; 83880; 84100; 84156; 84484; 85025; 85610; 85730; 93005; 93010; 94640; 97116-GP; 97161-GP; 99281-25

== ENCOUNTER 2018-02-12 20:07 | Inpatient (IN) | payer OTHER ==
--- NOTE | 2018-02-12 20:19 | PDOC ---
History of Present Illness - General Stated Complaint: SOB Time Seen by Provider: 02/12/18 20:10 History Source: Patient, EMS Exam Limitations: No Limitations - History of Present Illness Initial Comments: 02/12/18 20:18 The patient is a 62M with a PMH of COPD (on home O2 at 2L as needed), HTN, DM, CKD, CAD s/p CABG and pacemaker placement, systolic CHF bioprosthetic AVR who presents to the ER with shortness of breath. The patient states that he was lifting a box up and began to feel short of breath. With the SOB, he felt a "twinge" of chest pain which he describes as sharp, nonradiating. He states that the pain is no longer there. He denies fever, chills, vomiting, but admits to nausea and feeling like he can't swallow. He admits to swelling in his lower extremities. He has no other acute complaints. Past History - Past Medical History Allergies/Adverse Reactions: Allergies Allergy/AdvReac Type Severity Reaction Status Date / Time Fish Containing Products Allergy Verified 02/12/18 20:35 codeine AdvReac Intermediate Vomiting Verified 02/12/18 20:35 gabapentin AdvReac Intermediate dizzy Verified 02/12/18 20:35 Home Medications: Ambulatory Orders Aspirin [Aspirin EC] 81 mg PO DAILY 06/18/15 Clopidogrel Bisulfate [Clopidogrel] 75 mg PO DAILY 06/18/15 Zolpidem Tartrate [Ambien] 10 mg PO HS 06/18/15 Psyllium [Metamucil (Sugar-Free) -] 5.85 gm PO BID #1 bottle 06/02/17 Docusate Sodium [Colace -] 100 mg PO TID #90 capsule 09/22/17 Furosemide [Lasix -] 80 mg PO DAILY 7 Days #7 tablet 11/21/17 Cholecalciferol (Vitamin D3) [Vitamin D3] 2,000 unit PO DAILY #30 capsule Lactulose (Oral Use) [Cephulac -] 20 gm PO BID #1 bottle 12/25/17 Budesonide/Formeterol Fumarate [SYMBICORT 160/4.5mcg -] 1 puff IH DAILY inhaler 12/30/17 Cyclobenzaprine HCl 5 mg PO BID #28 tablet 12/30/17 Atorvastatin Ca 20 mg PO HS 01/11/18 Glipizide [Glucotrol -] 5 mg PO BID 01/11/18 Oxycodone HCl/Acetaminophen [Percocet 10-325 mg Tablet] 1 each PO QID PRN #120 tablet MDD 4 01/25/18 Anemia: No Asthma: No Cancer: No Cardiac Disorders: Yes (cabg, AFIB) CVA: No COPD: Yes CHF: Yes (with pleural effusion) Dementia: No Diabetes: Yes (with neuropathy) GI Disorders: No Disorders: No HTN: Yes Hypercholesterolemia: Yes Liver Disease: No Seizures: No Thyroid Disease: No - Surgical History Abdominal Surgery: No Appendectomy: No Cardiac Surgery: Yes (CABG x 3, implanted defib and pacer) Cholecystectomy: No Lung Surgery: No Neurologic Surgery: No Orthopedic Surgery: No - Immunization History Td Vaccination: Yes (unknown) Immunization Up to Date: Yes - Suicide/Smoking/Psychosocial Hx Smoking Status: Yes Smoking History: Former smoker (stopped 01/06/18) Years of Tobacco Use: 40 Have you smoked in the past 12 months: Yes Number of Cigarettes Smoked Daily: 1 If you are a former smoker, when did you quit?: 06/20/16 Cigars Per Day: 0 'Breaking Loose' booklet given: 01/07/18 Hx Alcohol Use: No Drug/Substance Use Hx: No Substance Use Type: None Hx Substance Use Treatment: No Review of Systems - Review of Systems Able to Perform ROS?: Yes Comments:: 02/13/18 00:32 GENERAL/CONSTITUTIONAL: No fever or chills. No weakness. HEAD, EYES, EARS, NOSE AND THROAT: No change in vision. No ear pain or discharge. No sore throat. CARDIOVASCULAR: Positive for resolved chest pain. No palpitations, or lightheadedness. RESPIRATORY: No cough, wheezing, shortness of breath, or hemoptysis. GASTROINTESTINAL: Positive for nausea. No vomiting, diarrhea, constipation, or abdominal pain. GENITOURINARY: No dysuria, frequency, hematuria, or change in urination. MUSCULOSKELETAL: Positive for swelling in b/l LE. No joint or muscle swelling or pain. No neck or back pain. SKIN: No rash or lesions. NEUROLOGIC: No headache, numbness, tingling, focal weakness, loss of consciousness, or change in strength/sensation. Is the patient limited Togolese proficient: No *Physical Exam - Physical Exam Comments: 02/13/18 00:33 GENERAL: Well developed, well nourished. Awake and alert. No acute distress. HEENT: Normocephalic, atraumatic. Hearing grossly normal. Moist mucous membranes. PERRLA, EOMI. No conjunctival pallor. Sclera are non-icteric. NECK: Supple. Full ROM. No JVD. CARDIOVASCULAR: Regular rate and rhythm. No murmurs, rubs, or gallops. PULMONARY: No evidence of respiratory distress. Rales in L lower lobe. ABDOMINAL: Soft. Non-tender. Non-distended. No rebound or guarding. GENITOURINARY: No CVA tenderness bilaterally. MUSCULOSKELETAL: Normal range of motion at all joints. No bony deformities or tenderness. EXTREMITIES: No cyanosis. No clubbing. 4+ pitting edema in b/l LE. No calf tenderness or swelling. SKIN: Warm and dry. Normal capillary refill. No rashes. No jaundice. NEUROLOGICAL: Alert, awake, appropriate. Cranial nerves 2-12 grossly intact. Normal speech. PSYCHIATRIC: Cooperative. Good eye contact. Appropriate mood and affect. Heart Score/ECG Review #1 ECG reviewed & interpreted by me at: 00:38 General ECG Interpretation: Sinus Rhythm, Normal Rate, Normal Intervals, No acute ischemic changes Compared to previous ECG there are: No significant change 02/13/18 00:38 Vent paced rhythm rate 60 LA - QRS 202 QTc 537 PVC's noted No new STD or NEENA No signs of acute ischemia ED Treatment Course - LABORATORY CBC & Chemistry Diagram: 02/12/18 21:20 02/12/18 21:20 - RADIOLOGY Radiology Studies Ordered: Category Date Time Status CHEST X-RAY PORTABLE* [RAD] Stat Radiology 02/12/18 20:11 Ordered Medical Decision Making - Medical Decision Making 02/12/18 23:25 The patient is a 62M with multiple medical problems who presents to the ER with acute shortness of breath and resolved chest pain concerning for ACS, CHF exacerbation, COPD exacerbation. EKG unremarkable. CBC shows anemia of 10.3, unchanged. CMP reveals Cr 2.5, unchanged. BNP 79493, elevated with trop of 0.1, likely demand ischemia. Will admit to hospital and treat for what was seen on preliminary CXR, PNA and CHF exacerbation. 02/12/18 23:27 I have endorsed the patient to Dr. Jones for admission. *DC/Admit/Observation/Transfer Diagnosis at time of Disposition: CHF exacerbation Qualifiers: Heart failure type: unspecified Qualified Code(s): I50.9 - Heart failure, unspecified - Discharge Dispostion Condition at time of disposition: Guarded Decision to Admit order: Yes - Referrals - Patient Instructions - Post Discharge Activity
[2018-02-12 21:33] LABS: VENOUS PC02 51.2 mmHg (38-52); VENOUS PH 7.39 (7.32-7.42); VENOUS PO2 21.4 mmHg (28-48)
[2018-02-12 21:34] LABS: BASO % 0.9 % (0-2.0); EOS % 1.2 % (0-4.5); HEMATOCRIT 30.9 % (35.4-49); HEMOGLOBIN 10.3 GM/dL (11.7-16.9); LYMPH % 6.1 % (8-40); MCH 32.3 pg (25.7-33.7); MCHC 33.4 g/dl (32.0-35.9); MEAN CELL VOLUME 96.6 fl (80-96); MONO % 7.2 % (3.8-10.2); NEUT % 84.6 % (42.8-82.8); PLATELET COUNT 138 K/MM3 (134-434); RDW 17.2 % (11.9-15.9); WHITE BLOOD COUNT 7.1 K/mm3 (4.0-10.0)
[2018-02-12] MEDS ORDERED: ONDANSETRON 4 MG/2 ML VIAL IVPUSH ONE (21:34)
[2018-02-12] MEDS ORDERED: ONDANSETRON 4 MG/2 ML VIAL ONE (21:35)
[2018-02-12 21:50] LABS: INR 1.3 (0.83-1.09); PROTHROMBIN TIME (PATIENT) 15.4 SEC (9.7-13.0)
[2018-02-12] MEDS ORDERED: VANCOMYCIN 1,000 MG in DEXTROSE 5%-WATER - 250 ML IVPB ONE (22:19)
[2018-02-12] MEDS ORDERED: AZITHROMYCIN IVPB 500 MG in DEXTROSE 5%-WATER - 250 ML IVPB ONE (22:19)
[2018-02-12] MEDS ORDERED: PIPERACILLIN/TAZOB 4.5 GM 4.5 GM in DEXTROSE 5%-WATER 100 ML IVPB ONE (22:19)
[2018-02-12 22:20] LABS: ALBUMIN 3.3 g/dl (3.4-5.0); ALK PHOS 106 U/L (45-117); ANION GAP 12 MMOL/L (8-16); BILIRUBIN,TOTAL 0.7 mg/dL (0.2-1); BLOOD UREA NITROGEN 47 mg/dL (7-18); CALCIUM 8.4 mg/dL (8.5-10.1); CHLORIDE 96 mmol/L (98-107); CO2 30 mmol/L (22-28); CREATININE 2.5 mg/dL (0.55-1.3); GLUCOSE,RANDOM 162 mg/dL (74-106); N-TERMINAL BNP 23605.5 pg/ml (5-125); POTASSIUM 4.2 mmol/L (3.5-5.1); SGOT/AST 28 U/L (15-37); SGPT/ALT 11 U/L (13-61); SODIUM 137 mmol/L (136-145); TOT PROT 6.6 g/dl (6.4-8.2)
[2018-02-12] MEDS ORDERED: methylPREDNISolone NA SUCC 125 MG/2 ML VIAL IVPUSH ONE (22:20)
--- NOTE | 2018-02-12 22:27 | PDOC ---
Attending Attestation - Resident Resident Name: Baltazar Kim - ED Attending Attestation I have performed the following: I have examined & evaluated the patient, The case was reviewed & discussed with the resident, I agree w/resident's findings & plan, Exceptions are as noted - HPI HPI: 02/12/18 22:19 The patient is a 62-year-old male with past medical history significant for COPD (on 2L O2 at home PRN), HTN, DM, CAD s/p CABG, pacemaker, presents to the emergency department via EMS with chest pain and shortness of breath. The patient reports he was lifting a box when he suddenly felt short of breath. He also endorses midsternal chest pain. The patient reports he was given 2 courses of albuterol that was left over at the house, with some relief of his SOB and CP. Pt reports resolution of his chest pain upon arrival to ED. Now only has minimal SOB. Allergies: codeine, gabapentin Social history: Former smoker, no alcohol or recreational drug use reported Surgical history: CABG, Pacemaker. PCP: Dr. Truong. - Physicial Exam PE: 02/12/18 22:30 GENERAL: Awake, alert, and fully oriented, in no acute distress. HEAD: No signs of trauma EYES: PERRLA, EOMI, sclera anicteric, conjunctiva clear ENT: Auricles normal inspection, hearing grossly normal, nares patent, oropharynx clear without exudates. Moist mucosa NECK: Nontender, no stepoffs, Normal ROM, supple, no lymphadenopathy, JVD, or masses LUNGS: + Mild wheezing HEART: Regular rate and rhythm, normal S1 and S2, no murmurs, rubs or gallops ABDOMEN: Soft, nontender, normoactive bowel sounds. No guarding, no rebound. No masses EXTREMITIES: Normal range of motion, no edema. No clubbing or cyanosis. No cords, erythema, or tenderness NEUROLOGICAL: Cranial nerves II through XII intact. 5/5 strength and sensation in all extremities, Normal speech, normal gait, normal cerebellar function SKIN: Warm, Dry, normal turgor, no rashes or lesions noted. - Medical Decision Making 02/12/18 22:31 62 M with SOB and chest pain. Responded to nebs at home, suggestive of possible COPD. Pt also with increased O2 requirement from baseline in ED. Will evaluate for CHF and PNA with CXR. - Labs, trop, BNP - VBG - CXR - Nebs PRN, steroids 02/12/18 23:05 Labs wnl CXR with possible RLL consolidation Pt with trop 0.10, likely demand. EKG with no ischemic changes. Will admit for COPD exacerbation and possible PNA
[2018-02-12] MEDS ORDERED: FUROSEMIDE 40 MG/4 ML INJECTABLE VIAL IVPUSH ONE (23:03)
[2018-02-12] MEDS ORDERED: VANCOMYCIN 1 GRAM (PRE-DOCKED) 1,000 MG/250 ML BAG IVPB ONE (23:15)
[2018-02-12] MEDS ORDERED: AZITHROMYCIN IVPB 500 MG/250 ML BAG IVPB ONE (23:15)
[2018-02-12] MEDS ORDERED: methylPREDNISolone NA SUCC 125 MG/2 ML VIAL ONE (23:15)
[2018-02-12] MEDS ORDERED: PIPERACILLIN/TAZOB 4.5 GM 4.5 GM/100 ML BAG IVPB ONE (23:15)
--- NOTE | 2018-02-13 00:39 | PN ---
Teaching Attending Note Name of Resident: Rocky Gibbs ATTENDING PHYSICIAN STATEMENT I saw and evaluated the patient. I reviewed the resident's note and discussed the case with the resident. I agree with the resident's findings and plan as documented. SUBJECTIVE: Patient is a 62 year old man with PMH of COPD (on 2L O2 at home PRN), HTN, DM, CAD s/p CABG, and pacemaker, who presents to the ER via EMS with chest pain and shortness of breath. The patient reports he was lifting a box when he suddenly felt short of breath. He also endorses midsternal chest pain. The patient reports he was given 2 courses of albuterol that was left over at the house, with some relief of his SOB and CP. He reports resolution of his chest pain upon arrival to ER. Now only has minimal SOB. OBJECTIVE: Alert Vital Signs Period Temp Pulse Resp BP Sys/El Pulse Ox Last 24 Hr 97.4 F 52-62 22 135/66 84-94 HEENT: No Jaundice, eye redness or discharge, PERRLA, EOMI. Normocephalic, atraumatic. External ears are normal and hearing is grossly intact. No nasal discharge. Neck: Supple, nontender. No palpable adenopathy or thyromegaly. No JVD Chest: Good effort. Clear to auscultation and percussion. Heart: Regular. No S3, rub or murmur Abdomen: Not distended, soft, nontender and no HSM. No rebound or guarding. Normoactive bowel sounds. Ext: Peripheral pulses intact. Leg edema. Skin: Warm and dry. No petechiae, rash or ecchymosis. Neuro: Alert. Oriented x3. CN 2-12 grossly intact. Sensation grossly intact in all four extremities and DTR are symmetric. Home Medications Medication Instructions Recorded Aspirin [Aspirin EC] 81 mg PO DAILY 06/18/15 Clopidogrel Bisulfate [Clopidogrel] 75 mg PO DAILY 06/18/15 Zolpidem Tartrate [Ambien] 10 mg PO HS 06/18/15 Psyllium [Metamucil (Sugar-Free) -] 5.85 gm PO BID #1 bottle 06/02/17 Docusate Sodium [Colace -] 100 mg PO TID #90 capsule 09/22/17 Furosemide [Lasix -] 80 mg PO DAILY 7 Days #7 tablet 11/21/17 Cholecalciferol (Vitamin D3) 2,000 unit PO DAILY #30 capsule 12/25/17 [Vitamin D3] Lactulose (Oral Use) [Cephulac -] 20 gm PO BID #1 bottle 12/25/17 Budesonide/Formeterol Fumarate 1 puff IH DAILY inhaler 12/30/17 [SYMBICORT 160/4.5mcg -] Cyclobenzaprine HCl 5 mg PO BID #28 tablet 12/30/17 Atorvastatin Ca 20 mg PO HS 01/11/18 Glipizide [Glucotrol -] 5 mg PO BID 01/11/18 Oxycodone HCl/Acetaminophen 1 each PO QID PRN #120 tablet MDD 4 01/25/18 [Percocet 10-325 mg Tablet] Abnormal Lab Results 02/12/18 02/12/18 02/12/18 21:20 21:20 21:20 RBC 3.20 L Hgb 10.3 L Hct 30.9 L MCV 96.6 H RDW 17.2 H Neutrophils % 84.6 H Lymphocytes % 6.1 L PT with INR 15.40 H INR 1.30 H POC VBG pO2 Mixed VBG HCO3 Chloride 96 L Carbon Dioxide 30 H BUN 47 H Creatinine 2.5 H Random Glucose 162 H Calcium 8.4 L ALT 11 L Troponin I 0.10 H B-Natriuretic Peptide 73827.5 H Albumin 3.3 L 02/12/18 21:25 RBC Hgb Hct MCV RDW Neutrophils % Lymphocytes % PT with INR INR POC VBG pO2 21.4 L Mixed VBG HCO3 30.8 H Chloride Carbon Dioxide BUN Creatinine Random Glucose Calcium ALT Troponin I B-Natriuretic Peptide Albumin ASSESSMENT AND PLAN: 1. Chest pain/COPD exacerbation and Dizziness - CXR shows bibasilar atelectasis vs infiltrate. Chest CT confirms pneumonia. He is afebrile, does not have leukocytosis and SOB improved after duoneb. Will give rocephin and duoneb and send for urine legionella antigen. Continue duoneb, symbicort and solumedrol. Head CT and carotid doppler to investigate dizziness. Unable to get brain MRI due to pacemaker. Continue lasix for CHF as well as dietary salt restriction and daily weight. Consult cardiology and pulmonary. Thusfar no evidence of ACS - initial troponin is negative and EKG does not show any significant ST-T wave changes. Admit to telemetry to rule out ACS. 2. DM - For now, we will hold the home diabetes drugs and implement sliding scale insulin regimen. Provide comprehensive diabetes care with patient teaching and counseling about the importance of euglycemia, eye care and foot care. 3. Anemia - Likely multifactorial. Has high normal MCV. Do basic anemia work up including serial stool guaiacs, Vitamin B12 and folate levels, reticulocyte count and iron studies. 4. CKD? - Has multiple risk factors for CKD. Consult nephrology and avoid nephrotoxic agents such as NSAIDS, aminoglycosides, contrast dyes and certain Alternative medicine products. 5. DVT prophylaxis - Lovenox 40 mg SQ q 24 hours. 6. Advance directives - Full code
[2018-02-13] MEDS ORDERED: ALBUTEROL SO4 2.5/IPRATROPIUM 0.5 INH SOL 3 ML VIAL.NEB. NEB PRN (01:24)
--- NOTE | 2018-02-13 01:34 | HP ---
CHIEF COMPLAINT: Dizziness and Shortness of breath PCP: Dr. Truong HISTORY OF PRESENT ILLNESS: A 62 y.o. M presents with resolution of sudden chest pain for the last 2 days associated with dizziness and weakness. Pt. states tht he tried albuterol treatments at home to some minimal effect. Shortness of breath was worsening so he came to the ED. Pt. endorses chills? at night, weakness and dyspnea after walking 10+ ft. Pt. states that he does not have chest pain now, fever, numbness or tingling in extremities. Pt. was noted to have taken a pill of Percocet out of his pocket after injesting one. Pill bottle was taken away and held for safe keeping until discharge. ER course was notable for: (1)VBG, CXR, BCx. (2)BNP, Trop, CBC, BMP (3)Abx. Recent Travel: No PAST MEDICAL HISTORY: COPD(on 2-4L NC), HTN, DM2, CAD (s/p CABG 2010), PPM (2010) PAST SURGICAL HISTORY: CAD (s/p CABG 2010), PPM (2010) Social History: Smokin+ PPD for 55? years Alcohol: EtOH Drugs: None Family History: None Allergies Fish Containing Products Allergy (Verified 02/12/18 20:35) codeine Adverse Reaction (Intermediate, Verified 02/12/18 20:35) Vomiting gabapentin Adverse Reaction (Intermediate, Verified 02/12/18 20:35) dizzy HOME MEDICATIONS: Home Medications Medication Instructions Recorded Aspirin [Aspirin EC] 81 mg PO DAILY 06/18/15 Clopidogrel Bisulfate [Clopidogrel] 75 mg PO DAILY 06/18/15 Zolpidem Tartrate [Ambien] 10 mg PO HS 06/18/15 Psyllium [Metamucil (Sugar-Free) -] 5.85 gm PO BID #1 bottle 06/02/17 Docusate Sodium [Colace -] 100 mg PO TID #90 capsule 09/22/17 Furosemide [Lasix -] 80 mg PO DAILY 7 Days #7 tablet 11/21/17 Cholecalciferol (Vitamin D3) 2,000 unit PO DAILY #30 capsule 12/25/17 [Vitamin D3] Lactulose (Oral Use) [Cephulac -] 20 gm PO BID #1 bottle 12/25/17 Budesonide/Formeterol Fumarate 1 puff IH DAILY inhaler 12/30/17 [SYMBICORT 160/4.5mcg -] Cyclobenzaprine HCl 5 mg PO BID #28 tablet 12/30/17 Atorvastatin Ca 20 mg PO HS 01/11/18 Glipizide [Glucotrol -] 5 mg PO BID 01/11/18 Oxycodone HCl/Acetaminophen 1 each PO QID PRN #120 tablet MDD 4 01/25/18 [Percocet 10-325 mg Tablet] REVIEW OF SYSTEMS Endorses chills, weakness and dyspnea on exertion. Denies fever, chest pain, numbness and tingling in extremities PHYSICAL EXAMINATION Vital Signs - 24 hr 02/12/18 02/12/18 20:35 21:03 Temperature 97.4 F L Pulse Rate 52 L 62 Respiratory 22 H Rate Blood Pressure 135/66 O2 Sat by Pulse 84 L 94 L Oximetry (%) GENERAL: Awake, alert, and fully oriented, in no respiratory distress. HEAD: Normal with no signs of trauma. EYES: Pupils equal, round and reactive to light, extraocular movements intact, sclera anicteric, conjunctiva clear. No lid lag. EARS, NOSE, THROAT: Ears normal, nares patent, oropharynx clear without exudates. Moist mucous membranes. NECK: Normal range of motion, supple without lymphadenopathy, JVD, or masses. LUNGS: Right lower lobe crackles, diffuse decrease breath sounds. HEART: Regular rate and rhythm, normal S1 and S2 with murmur ABDOMEN: Soft, nontender, not distended, normoactive bowel sounds, no guarding, no rebound UPPER EXTREMITIES: 2+ radial pulses, warm, well-perfused. No cyanosis. No clubbing. No peripheral edema. LOWER EXTREMITIES: 2+ pulses, warm, well-perfused. No calf tenderness. 1+ edema. NEUROLOGICAL: Cranial nerves II-XII intact. Labored speech. SKIN: Warm, dry, normal turgor, normal capillary refill. Laboratory Results - last 24 hr 02/12/18 02/12/18 02/12/18 21:20 21:20 21:20 WBC 7.1 RBC 3.20 L Hgb 10.3 L Hct 30.9 L MCV 96.6 H MCH 32.3 MCHC 33.4 RDW 17.2 H Plt Count 138 D MPV 9.0 Absolute Neuts (auto) 6.0 Neutrophils % 84.6 H Lymphocytes % 6.1 L Monocytes % 7.2 Eosinophils % 1.2 Basophils % 0.9 Nucleated RBC % 0 PT with INR 15.40 H INR 1.30 H VBG pH POC VBG pCO2 POC VBG pO2 Mixed VBG HCO3 Sodium 137 Potassium 4.2 Chloride 96 L Carbon Dioxide 30 H Anion Gap 12 BUN 47 H Creatinine 2.5 H Creat Clearance w eGFR 26.30 Random Glucose 162 H Calcium 8.4 L Magnesium 2.0 Total Bilirubin 0.7 AST 28 ALT 11 L Alkaline Phosphatase 106 Creatine Kinase 35 Troponin I 0.10 H B-Natriuretic Peptide 78301.5 H Total Protein 6.6 Albumin 3.3 L 02/12/18 02/12/18 21:20 21:25 WBC RBC Hgb Hct MCV MCH MCHC RDW Plt Count MPV Absolute Neuts (auto) Neutrophils % Lymphocytes % Monocytes % Eosinophils % Basophils % Nucleated RBC % PT with INR INR VBG pH 7.39 POC VBG pCO2 51.2 D POC VBG pO2 21.4 L Mixed VBG HCO3 30.8 H Sodium Potassium Chloride Carbon Dioxide Anion Gap BUN Creatinine Creat Clearance w eGFR Random Glucose Calcium Magnesium Total Bilirubin AST ALT Alkaline Phosphatase Creatine Kinase Troponin I B-Natriuretic Peptide Cancelled Total Protein Albumin ASSESSMENT/PLAN: A 62 y.o. M w/ PMHx. of COPD (on 2-4L NC), HTN, DM2, CAD(s/p CABG 2010), PPM ( 2010) presents to the ED for shortness of breath and dizziness. #Cardiology -r/o ACS vs. CHF exacerbation given 80mg IV Lasix in ED telemetry monitoring BNP: 23,605 Trop: 0.10 CXR appreciated- cardiomegaly c/w ASA 81mg c/w Plavix 75mg Cardiology consult appreciated (Dr. Zafar) -HLD c/w Atorvastatin 20mg #Pulmonology -r/o COPD exacerbation given 125 mg Solumedrol Duonebs Q4H PRN c/w Symbicort Pulmonology consult appreciated (Dr. Sands) #Endocrine -NIDDM ISS ACHS BGM ACHS #Nephrology -ERROL vs. CKD c/w Lasix 80mg Nephrology consult appreciated (Dr. Belcher) #Gastroenterology -Constipation c/w Metamucil c/w Colace 100mg TID c/w Lactulose? #Musculoskeletal -chronic back pain c/w Flexeril c/w Percocet 10-325mg #F/E/N -No IVF, restrict fluid intake to 2L/ day -monitor electrolytes and replete as needed -Diabetic/Na+ Sodium restricted Diet #DVT Ppx. -SCDs/ TEDs -Hep 5k SQ Visit type - Emergency Visit Emergency Visit: Yes ED Registration Date: 02/12/18 Care time: The patient presented to the Emergency Department on the above date and was hospitalized for further evaluation of their emergent condition. - New Patient This patient is new to me today: Yes Date on this admission: 02/14/18 - Critical Care Critical Care patient: No
[2018-02-13] MEDS ORDERED: FUROSEMIDE 40 MG/4 ML INJECTABLE VIAL ONE (01:56)
[2018-02-13] MEDS ORDERED: ZOLPIDEM TARTRATE 5 MG TABLET PO PRN (02:38)
[2018-02-13 03:36] LABS: URINE APPEARANCE CLEAR; URINE BILIRUBIN NEGATIVE (<2.0 mg/dL); URINE COLOR YELLOW; URINE GLUCOSE (UA) NEGATIVE (NEGATIVE); URINE KETONE NEGATIVE (NEGATIVE); URINE LEUK ESTERASE NEGATIVE (NEGATIVE); URINE NITRITE NEGATIVE (NEGATIVE); URINE PROTEIN 3+ (NEGATIVE); URINE UROBILINOGEN 4.0 E.U/dl mg/dL (0.2-1.0)
[2018-02-13] MEDS ORDERED: methylPREDNISolone NA SUCC 40 MG/1 ML VIAL ONE (03:42)
[2018-02-13] MEDS: methylPREDNISolone NA SUCC 40 MG/1 ML VIAL IVPUSH SCH ×4 (03:50→21:37)
[2018-02-13 03:59] LABS: URINE BACTERIA RARE /hpf (NONE SEEN); URINE HYALINE CAST 3 /lpf; URINE MUCUS RARE
[2018-02-13] MEDS: DOCUSATE SODIUM 100 MG CAPSULE (FP) PO SCH ×3 (06:53→21:37)
[2018-02-13] MEDS: HEPARIN NA (PORCINE) 5,000 UNITS/ML 1ML VIAL SQ SCH ×3 (06:53→21:37)
[2018-02-13 07:52] LABS: BASO % 0.7 % (0-2.0); EOS % 0.1 % (0-4.5); HEMATOCRIT 28.7 % (35.4-49); HEMOGLOBIN 9.5 GM/dL (11.7-16.9); LYMPH % 3.5 % (8-40); MCH 31.8 pg (25.7-33.7); MEAN CELL VOLUME 96.2 fl (80-96); MEAN PLT VOLUME 9.1 fl (7.5-11.1); MONO % 2.4 % (3.8-10.2); NEUT % 93.3 % (42.8-82.8); PLATELET COUNT 114 K/MM3 (134-434); RBC 2.98 M/mm3 (4.00-5.60); RDW 16.8 % (11.9-15.9); WHITE BLOOD COUNT 5.7 K/mm3 (4.0-10.0)
[2018-02-13] MEDS ORDERED: CEFTRIAXONE 1 GM in DEXTROSE 5%-WATER - 50 ML IVPB ONE (08:00)
[2018-02-13 08:34] LABS: ANION GAP 13 MMOL/L (8-16); BLOOD UREA NITROGEN 51 mg/dL (7-18); CALCIUM 7.9 mg/dL (8.5-10.1); CHLORIDE 96 mmol/L (98-107); CO2 28 mmol/L (21-32); CREATININE 2.6 mg/dL (0.55-1.3); GLUCOSE,RANDOM 214 mg/dL (74-106); MAGNESIUM 1.9 mg/dL (1.8-2.4); PHOSPHOROUS 2.8 mg/dL (2.5-4.9); POTASSIUM 3.7 mmol/L (3.5-5.1); SODIUM 136 mmol/L (136-145)
--- NOTE | 2018-02-13 08:40 | PN ---
Progress Note, Physician Chief Complaint: Mr Owen says he is feeling much better today. Says breathing is back to normal and his weakness is better. No cp or n/v. - Current Medication List Current Medications: Active Medications Acetaminophen (Tylenol -) 325 mg PO Q6H PRN PRN Reason: PAIN LEVEL 6-10 Albuterol/Ipratropium (Duoneb -) 1 amp NEB Q4H PRN PRN Reason: SHORTNESS OF BREATH Aspirin (Ecotrin -) 81 mg PO DAILY [facility] Atorvastatin Calcium (Lipitor -) 20 mg PO HS [facility] Budesonide/Formoterol Fumarate (Symbicort 160/4.5mcg -) 2 puff IH BID [facility] Cholecalciferol (Vitamin D3 -) 2,000 unit PO DAILY [facility] Clopidogrel Bisulfate (Plavix -) 75 mg PO DAILY [facility] Cyclobenzaprine HCl (Flexeril -) 5 mg PO BID [facility] Docusate Sodium (Colace -) 100 mg PO TID [facility] Last Admin: 02/13/18 06:53 Dose: 100 mg Furosemide (Lasix Injection -) 80 mg IVPUSH DAILY [facility] Heparin Sodium (Porcine) (Heparin -) 5,000 unit SQ TID [facility] Last Admin: 02/13/18 06:53 Dose: 5,000 unit Azithromycin (Zithromax 500mg Ivpb (Pre-Docked)) 500 mg in 250 mls @ 250 mls/ hr IVPB HS [facility] Lactulose (Cephulac (Oral Use)) 20 gm PO BID [facility] Methylprednisolone Sodium Succinate (Solu-Medrol -) 40 mg IVPUSH Q6H-IV [facility] Last Admin: 02/13/18 03:50 Dose: 40 mg Oxycodone HCl (Roxicodone -) 10 mg PO Q6H PRN PRN Reason: PAIN LEVEL 6-10 Psyllium Hydrophilic Mucilloid (Metamucil (Sugar-Free) -) 5.85 gm PO BID [facility] Zolpidem Tartrate (Ambien -) 10 mg PO HS PRN PRN Reason: INSOMNIA - Objective Vital Signs: Vital Signs Temperature 36.4 C 02/13/18 06:10 Pulse Rate 76 02/13/18 06:10 Respiratory Rate 20 02/13/18 06:10 Blood Pressure 155/92 02/13/18 06:10 O2 Sat by Pulse Oximetry (%) 94 L 02/13/18 06:00 Constitutional: Yes: Well Nourished, No Distress, Calm Cardiovascular: Yes: Regular Rate and Rhythm. No: Gallop, Murmur, Rub Respiratory: Yes: Regular, On Nasal O2, Rhonchi (bibasilar). No: CTA Bilaterally, Rales, Wheezes Gastrointestinal: Yes: Normal Bowel Sounds, Soft. No: Distention, Tenderness Extremities: Yes: WNL Edema: No Labs: CBC, BMP 02/13/18 05:30 02/13/18 05:30 INR, PTT INR 1.30 (0.83-1.09) H 02/12/18 21:20 Problem List - Problems (1) CHF (congestive heart failure) Assessment/Plan: -slight exacerbation -cardiology consult -will change lasix to 40mg IV bid -follow up cardiology recommendations Code(s): I50.9 - HEART FAILURE, UNSPECIFIED Qualifiers: Heart failure type: systolic Heart failure chronicity: acute on chronic Qualified Code(s): I50.23 - Acute on chronic systolic (congestive) heart failure (2) COPD exacerbation Assessment/Plan: -sob, possible COPD exacerbation -has chronic respiratory failure secondary to COPD and CHF -continue oxygen -continue solumedrol -continue symbicort -continue bronchodilators -pulmonary consult Code(s): J44.1 - CHRONIC OBSTRUCTIVE PULMONARY DISEASE W (ACUTE) EXACERBATION (3) ERROL (acute kidney injury) Assessment/Plan: -unclear cause -possible cardiorenal syndrome -nephrology consulted -lasix as above -if worsens with lasix, then overdiuresed but will monitor Code(s): N17.9 - ACUTE KIDNEY FAILURE, UNSPECIFIED (4) Afib Assessment/Plan: -rate controlled Code(s): I48.91 - UNSPECIFIED ATRIAL FIBRILLATION Qualifiers: Atrial fibrillation type: chronic Qualified Code(s): I48.2 - Chronic atrial fibrillation (5) Chronic kidney disease (CKD) Assessment/Plan: -stage 3 CKD -monitor for return to baseline Code(s): N18.9 - CHRONIC KIDNEY DISEASE, UNSPECIFIED Qualifiers: Chronic kidney disease stage: stage 3 (moderate) Qualified Code(s): N18.3 - Chronic kidney disease, stage 3 (moderate) (6) Weakness Assessment/Plan: -improved -? secondary to hypoxia -PT consult Code(s): R53.1 - WEAKNESS (7) Coronary artery disease Assessment/Plan: -quiescent -continue current regimen Code(s): I25.10 - ATHSCL HEART DISEASE OF [place] CORONARY ARTERY W/O ANG PCTRS Qualifiers: Coronary Disease-Associated Artery/Lesion type: bypass graft, other Associated angina: with other forms of angina Qualified Code(s): I25.798 - Atherosclerosis of other coronary artery bypass graft(s) with other forms of angina pectoris (8) Diabetes Assessment/Plan: -restart glipizide -change to diabetic/sodium controlled diet Code(s): E11.9 - TYPE 2 DIABETES MELLITUS WITHOUT COMPLICATIONS Qualifiers: Diabetes mellitus type: type 2 Diabetes mellitus terminal block assembler insulin use: with alf use Diabetes mellitus complication status: with kidney complications Diabetes mellitus complication detail: with chronic kidney disease Chronic kidney disease stage: stage 3 (moderate) Qualified Code(s): E11.22 - Type 2 diabetes mellitus with diabetic chronic kidney disease; N18.3 - Chronic kidney disease, stage 3 (moderate); Z79.4 - terminal operator (current) use of insulin (9) HTN (hypertension) Assessment/Plan: -IV lasix currently -will d/w cardiology and nephrology if patient would benefit from long acting beta christian and ACEI/ARB considering CAD, DM, CKD, and CHF Code(s): I10 - ESSENTIAL (PRIMARY) HYPERTENSION Qualifiers: Hypertension type: essential hypertension Qualified Code(s): I10 - Essential (primary) hypertension (10) Pneumonia Assessment/Plan: -await official read of CT scan -note overnight attending states pneumonia on CT scan -per my read appears unchanged -also no fevers or leukocytosis -will continue antibiotics as helpful in COPD exacerbation -low threshold to d/c antibiotics if CT scan unchanged and urine antigens negative Code(s): J18.9 - PNEUMONIA, UNSPECIFIED ORGANISM Qualifiers: Pneumonia type: due to unspecified organism Laterality: left Lung location: lower lobe of lung Qualified Code(s): J18.9 - Pneumonia, unspecified organism
[2018-02-13] MEDS ORDERED: cefTRIAXone SODIUM 1 GM VIAL ONE (09:22)
[2018-02-13] MEDS ORDERED: DEXTROSE 5%-WATER - 50 ML IVPB ONE (09:22)
[2018-02-13] MEDS: CHOLECALCIFEROL (VITAMIN D3) 1,000 UNIT TABLET (FP) PO SCH (10:00)
[2018-02-13] MEDS ORDERED: FUROSEMIDE 40 MG/4 ML INJECTABLE VIAL IVPUSH SCH ×2 (10:00→14:00)
[2018-02-13] MEDS ORDERED: FUROSEMIDE 40 MG TABLET (FP) PO SCH ×2 (10:00→11:30)
[2018-02-13] MEDS: CLOPIDOGREL BISULFATE 75 MG TABLET (FP) PO SCH (10:01)
[2018-02-13] MEDS: glipiZIDE 5 MG TABLET (FP) PO SCH ×2 (10:01→16:38)
[2018-02-13] MEDS: ASPIRIN COATED 81 MG TABLET.EC PO SCH (10:03)
[2018-02-13] MEDS: LACTULOSE 20 GM/30 ML UDC (FOR ORAL USE ONLY) PO SCH ×2 (10:03→21:37)
[2018-02-13] MEDS: BUDESONIDE/FORMETEROL FUMARATE 160/4.5 mcg INHALER IH SCH ×2 (10:06→22:05)
[2018-02-13] MEDS: PSYLLIUM 5.85 GM PACKET PO SCH ×2 (10:08→21:38)
[2018-02-13] MEDS: CYCLOBENZAPRINE HCL 10 MG TABLET (FP) PO SCH ×2 (10:09→21:36)
[2018-02-13 10:19] LABS: ACANTHOCYTES 2+; ANISOCYTOSIS 2+; MACROCYTOSIS 0; PLATELET ESTIMATE DECREASED; TEAR DROP CELLS 2+
--- NOTE | 2018-02-13 11:25 | CON.CARD ---
Cardiology Consult (text) - Consultation Consultation Note: cc: sob hpi: 62 m hx copd, cabgx3 2012, bio avr 2012, pad s/p b/l sfa occlusions, syst chf s/p medtronic icd, htn, hld, a-tach, here with sob. Past few days feels sob , weak. No cp palps dizzy loc pnd orthopnea le edema. Sees me for cardio. pmh: per hpi psh: cabg, avr, icd social: +tob fam: no premature cad ros: per hpi; no nvd, fever, wt loss, rash, hematuria, gib, nasal congestion, [place] , vision changes meds: Home Medications Medication Instructions Recorded Aspirin [Aspirin EC] 81 mg PO DAILY 06/18/15 Clopidogrel Bisulfate [Clopidogrel] 75 mg PO DAILY 06/18/15 Zolpidem Tartrate [Ambien] 10 mg PO HS 06/18/15 Psyllium [Metamucil (Sugar-Free) -] 5.85 gm PO BID #1 bottle 06/02/17 Docusate Sodium [Colace -] 100 mg PO TID #90 capsule 09/22/17 Furosemide [Lasix -] 80 mg PO DAILY 7 Days #7 tablet 11/21/17 Cholecalciferol (Vitamin D3) 2,000 unit PO DAILY #30 capsule 12/25/17 [Vitamin D3] Lactulose (Oral Use) [Cephulac -] 20 gm PO BID #1 bottle 12/25/17 Budesonide/Formeterol Fumarate 1 puff IH DAILY inhaler 12/30/17 [SYMBICORT 160/4.5mcg -] Cyclobenzaprine HCl 5 mg PO BID #28 tablet 12/30/17 Atorvastatin Ca 20 mg PO HS 01/11/18 Glipizide [Glucotrol -] 5 mg PO BID 01/11/18 Oxycodone HCl/Acetaminophen 1 each PO QID PRN #120 tablet MDD 4 01/25/18 [Percocet 10-325 mg Tablet] pe: Vital Signs Period Temp Pulse Resp BP Sys/El Pulse Ox Last 24 Hr 97.4 F-97.7 F 52-96 20-22 121-155/66-92 84-94 nad, +JVD rrr s1s2 no mrg cta bl nl eff aaox3 no le e/c/c abd nt nd pos bs no jaundice diaphoresis +dp pt no carotid bruits Laboratory Last Values WBC 5.7 K/mm3 (4.0-10.0) 02/13/18 05:30 RBC 2.98 M/mm3 (4.00-5.60) L 02/13/18 05:30 Hgb 9.5 GM/dL (11.7-16.9) L 02/13/18 05:30 Hct 28.7 % (35.4-49) L 02/13/18 05:30 MCV 96.2 fl (80-96) H 02/13/18 05:30 MCH 31.8 pg (25.7-33.7) 02/13/18 05:30 MCHC 33.0 g/dl (32.0-35.9) 02/13/18 05:30 RDW 16.8 % (11.9-15.9) H 02/13/18 05:30 Plt Count 114 K/MM3 (134-434) L 02/13/18 05:30 MPV 9.1 fl (7.5-11.1) 02/13/18 05:30 Absolute Neuts (auto) 5.3 K/mm3 (1.5-8.0) 02/13/18 05:30 Neutrophils % 93.3 % (42.8-82.8) H 02/13/18 05:30 Lymphocytes % 3.5 % (8-40) L D 02/13/18 05:30 Monocytes % 2.4 % (3.8-10.2) L 02/13/18 05:30 Eosinophils % 0.1 % (0-4.5) D 02/13/18 05:30 Basophils % 0.7 % (0-2.0) 02/13/18 05:30 Nucleated RBC % 0 % (0-0) 02/13/18 05:30 PT with INR 15.40 SEC (9.7-13.0) H 02/12/18 21:20 INR 1.30 (0.83-1.09) H 02/12/18 21:20 VBG pH 7.39 (7.32-7.42) 02/12/18 21:25 POC VBG pCO2 51.2 mmHg (38-52) D 02/12/18 21:25 POC VBG pO2 21.4 mmHg (28-48) L 02/12/18 21:25 Mixed VBG HCO3 30.8 meq/L (19-25) H 02/12/18 21:25 Sodium 136 mmol/L (136-145) 02/13/18 05:30 Potassium 3.7 mmol/L (3.5-5.1) 02/13/18 05:30 Chloride 96 mmol/L (98-107) L 02/13/18 05:30 Carbon Dioxide 28 mmol/L (21-32) 02/13/18 05:30 Anion Gap 13 MMOL/L (8-16) 02/13/18 05:30 BUN 51 mg/dL (7-18) H 02/13/18 05:30 Creatinine 2.6 mg/dL (0.55-1.3) H 02/13/18 05:30 Creat Clearance w eGFR 25.14 (>60) 02/13/18 05:30 Random Glucose 214 mg/dL (74-106) H 02/13/18 05:30 Hemoglobin A1c % 5.9 % (4.2-6.3) 02/13/18 05:30 Calcium 7.9 mg/dL (8.5-10.1) L 02/13/18 05:30 Phosphorus 2.8 mg/dL (2.5-4.9) 02/13/18 05:30 Magnesium 1.9 mg/dL (1.8-2.4) 02/13/18 05:30 Total Bilirubin 0.7 mg/dL (0.2-1) 02/12/18 21:20 AST 28 U/L (15-37) 02/12/18 21:20 ALT 11 U/L (13-61) L 02/12/18 21:20 Alkaline Phosphatase 106 U/L (45-117) 02/12/18 21:20 Creatine Kinase 35 IU/L (26-308) 02/12/18 21:20 Troponin I 0.10 ng/ml (0.00-0.05) H 02/12/18 21:20 B-Natriuretic Peptide 29473.5 pg/ml (5-125) H 02/12/18 21:20 Total Protein 6.6 g/dl (6.4-8.2) 02/12/18 21:20 Albumin 3.3 g/dl (3.4-5.0) L 02/12/18 21:20 Urine Color Yellow 02/13/18 03:20 Urine Appearance Clear 02/13/18 03:20 Urine pH 5.0 (5.0-8.0) 02/13/18 03:20 Ur Specific [place] 1.018 (1.010-1.035) 02/13/18 03:20 Urine Protein 3+ (NEGATIVE) H D 02/13/18 03:20 Urine Glucose (UA) Negative (NEGATIVE) 02/13/18 03:20 Urine Ketones Negative (NEGATIVE) 02/13/18 03:20 Urine Blood Negative (NEGATIVE) 02/13/18 03:20 Urine Nitrite Negative (NEGATIVE) 02/13/18 03:20 Urine Bilirubin Negative (<2.0 mg/dL) 02/13/18 03:20 Urine Urobilinogen 4.0 e.u/dl mg/dL (0.2-1.0) 02/13/18 03:20 Ur Leukocyte Esterase Negative (NEGATIVE) 02/13/18 03:20 Urine WBC (Auto) 1 /hpf (3-5) 02/13/18 03:20 Urine RBC (Auto) 2 /hpf (0-3) 02/13/18 03:20 Urine Bacteria Rare /hpf (NONE SEEN) 02/13/18 03:20 Hyaline Casts 3 /lpf 02/13/18 03:20 Urine Mucus Rare 02/13/18 03:20 ecg: evp sales, atach echo 06/2015: mild lve, mod-sev dec lvef, mod lae, nl rv size, mild dec rv fcn, mild-mod mr, mild tr, nl avr fcn, rvsp 30-40 echo 06/2016: sev dec lvef, global hk, rv tds, trinity, mod-sev mr, mod tr, rvsp 50- 60 mibi 09/2014: large inf scar, mod anteroapical ischemia, lvef 25% mibi 06/2016 (pers): non-diagnostic STs; large area inferior/inferolateral/ lateral scar; no ischemia; severe LV cavity dilation; global HK with akinesis of inferior/inferolat/lateral allan; EF 16% tele: evp sales ct chest: no sig chf a/p: 62 m hx copd, cabgx3 2012, bio avr 2012, pad s/p b/l sfa occlusions, syst chf s/p medtronic icd, htn, hld, a-tach, here with back pain, sob. sob, copd: -does not appear volume overloaded and cr bumped up after iv lasix -possibly copd, infection etiology for this current sob chronic systolic CHF exacerbation -stable vol status, cont po lasix, was on 80 qd at home, cont same - cont bb, not on ACEI due to h/o hyperkalemia cad/hx of CABG 2012 -no recent angina/ischemia -present sx's not suggestive for angina -cont prior cad med regimen: dapt, statin, bb, ccb bio avr: -nl fcn on echo 06/20 mitral regurgitation: -likely functional MR, mild-mod on echo 06/19, then "mod-severe" when here 06/20 with suspected acute chf and pulm pressures up (though at risk for overestimation of MR severity on that echo report) -valve morphology not described (tethered leaflets?) -no murmur on exam -reassess MR severity on echo as outpt CKD: -baseline creatinine 2-2.8; -renal fxn stable here pad: -stable, no claudication, cont current cardiac meds s/p icd: -no shocks -routine outpt monitoring htn: -cont home meds hld: -cont statin atach: -cont bb
[2018-02-13] MEDS: oxyCODONE HCL 5 MG TABLET PO PRN ×2 (12:25→20:01)
[2018-02-13] MEDS ORDERED: ALBUTEROL SO4 0.083% IH SOL 2.5 MG/3 ML VIAL.NEB. NEB PRN (14:13)
[2018-02-13] MEDS: INSULIN (NOVOLOG) ASPART 100 UNITS/ML 10ML VIAL SQ SCH ×3 (14:14→21:40)
--- NOTE | 2018-02-13 14:16 | CON.PULM ---
Consult Consult Specialty:: PULM/CCM Referred by:: PRASANTH Reason for Consultation:: SOB - History of Present Illness Chief Complaint: SOB History of Present Illness: 62 M, well known to me from previous admissions. COPD due to smoking on 2L O2 at home PRN, HTN, DM, CAD s/p CABG, and pacemaker. Admitted via the ER due to chest pain and shortness of breath. He reports he was lifting a box when he suddenly felt short of breath and midsternal chest pain. He took 2 doses of albuterol with some mild relief of his SOB and CP. No travel history or sick contacts. No hemoptysis. - History Source History Provided By: Patient Limitations to Obtaining History: No Limitations - Past Medical History Cardio/Vascular: Yes: AFIB (after CABG briefly; not on AC), CAD, CHF, HTN, Mitral Insufficiency Pulmonary: Yes: Bronchitis, COPD, O2 Dependent, Pneumonia. No: Previously Intubated, Pulmonary Embolus, Sleep Apnea Endocrine: Yes: Diabetes Mellitus - Past Surgical History Past Surgical History: Yes: AICD, CABG - Alcohol/Substance Use Hx Alcohol Use: No History of Substance Use: reports: None - Smoking History Smoking history: Former smoker (stopped 01/06/18) Have you smoked in the past 12 months: Yes Aproximately how many cigarettes per day: 1 If you are a former smoker, when did you quit?: 06/20/16 - Social History Usual Living Arrangement: With Spouse ADL: Independent History of Recent Travel: No Home Medications - Allergies Allergies/Adverse Reactions: Allergies Allergy/AdvReac Type Severity Reaction Status Date / Time Fish Containing Products Allergy Verified 02/12/18 20:35 codeine AdvReac Intermediate Vomiting Verified 02/12/18 20:35 gabapentin AdvReac Intermediate dizzy Verified 02/12/18 20:35 - Home Medications Home Medications: Ambulatory Orders Aspirin [Aspirin EC] 81 mg PO DAILY 06/18/15 Clopidogrel Bisulfate [Clopidogrel] 75 mg PO DAILY 06/18/15 Zolpidem Tartrate [Ambien] 10 mg PO HS 06/18/15 Psyllium [Metamucil (Sugar-Free) -] 5.85 gm PO BID #1 bottle 06/02/17 Docusate Sodium [Colace -] 100 mg PO TID #90 capsule 09/22/17 Furosemide [Lasix -] 80 mg PO DAILY 7 Days #7 tablet 11/21/17 Cholecalciferol (Vitamin D3) [Vitamin D3] 2,000 unit PO DAILY #30 capsule Lactulose (Oral Use) [Cephulac -] 20 gm PO BID #1 bottle 12/25/17 Budesonide/Formeterol Fumarate [SYMBICORT 160/4.5mcg -] 1 puff IH DAILY inhaler 12/30/17 Cyclobenzaprine HCl 5 mg PO BID #28 tablet 12/30/17 Atorvastatin Ca 20 mg PO HS 01/11/18 Glipizide [Glucotrol -] 5 mg PO BID 01/11/18 Oxycodone HCl/Acetaminophen [Percocet 10-325 mg Tablet] 1 each PO QID PRN #120 tablet MDD 4 01/25/18 Family Disease History - Family Disease History Family Disease History: Heart Disease: Father (etoh), Mother (, cva), Other: Brother (alive - Ramírez - hx etoh), Sister (five - alive - no medical problems), Son (two adults - no problems) Review of Systems - Review of Systems Constitutional: reports: Malaise. denies: Chills, Fever, Night Sweats Eyes: reports: No Symptoms HENT: reports: No Symptoms Neck: reports: No Symptoms Cardiovascular: reports: Chest Pain, Shortness of Breath. denies: Edema, Palpitations Respiratory: reports: Cough, Snoring, SOB, SOB on Exertion, Wheezing. denies: Exercise Intolerance, Hemoptysis, Orthopnea Gastrointestinal: reports: No Symptoms Genitourinary: reports: No Symptoms Breasts: reports: No Symptoms Reported Musculoskeletal: reports: No Symptoms Integumentary: reports: No Symptoms Neurological: reports: No Symptoms Endocrine: reports: No Symptoms Hematology/Lymphatic: reports: No Symptoms Psychiatric: reports: No Symptoms Physical Exam Vital Sings: Vital Signs Temperature 97.7 F 02/13/18 08:00 Pulse Rate 96 H 02/13/18 08:00 Respiratory Rate 20 02/13/18 08:00 Blood Pressure 121/80 02/13/18 08:00 O2 Sat by Pulse Oximetry (%) 94 L 02/13/18 06:00 Constitutional: Yes: No Distress, Calm Eyes: Yes: Conjunctiva Clear, EOM Intact HENT: Yes: Atraumatic, Normocephalic Neck: Yes: Supple, Trachea Midline Cardiovascular: Yes: Regular Rate and Rhythm Respiratory: Yes: Cough, Diminished, On Nasal O2, Rhonchi, SOB on Exertion, Tachypnea, Wheezes. No: Accessory Muscle Use, Rales, Stridor ...Inspection: Yes: WNL ...Clubbing: No Gastrointestinal: Yes: Normal Bowel Sounds, Soft Renal/: Yes: WNL Musculoskeletal: Yes: WNL Extremities: Yes: WNL Edema: No Peripheral Pulses WNL: Yes Integumentary: Yes: WNL Neurological: Yes: WNL, Alert, Oriented ...Motor Strength: WNL Psychiatric: Yes: WNL, Alert, Oriented Labs: CBC, BMP 02/13/18 05:30 02/13/18 05:30 Imaging - Results Chest X-ray: Report Reviewed, Image Reviewed Problem List - Problems (1) Afib Code(s): I48.91 - UNSPECIFIED ATRIAL FIBRILLATION Qualifiers: Atrial fibrillation type: chronic Qualified Code(s): I48.2 - Chronic atrial fibrillation (2) Back pain Code(s): M54.9 - DORSALGIA, UNSPECIFIED (3) Bronchitis Code(s): J40 - BRONCHITIS, NOT SPECIFIED ACUTE OR CHRONIC (4) COPD (chronic obstructive pulmonary disease) Code(s): J44.9 - CHRONIC OBSTRUCTIVE PULMONARY DISEASE, UNSPECIFIED (5) COPD exacerbation Code(s): J44.1 - CHRONIC OBSTRUCTIVE PULMONARY DISEASE W (ACUTE) EXACERBATION (6) Chronic kidney disease (CKD) Code(s): N18.9 - CHRONIC KIDNEY DISEASE, UNSPECIFIED Qualifiers: Chronic kidney disease stage: stage 3 (moderate) Qualified Code(s): N18.3 - Chronic kidney disease, stage 3 (moderate) (7) Cough Code(s): R05 - COUGH (8) Depression Code(s): F32.9 - MAJOR DEPRESSIVE DISORDER, SINGLE EPISODE, UNSPECIFIED Qualifiers: Depression Type: major depressive disorder Major depression recurrence: unspecified whether recurrent Active/Remission status: currently active Psychotic features: without psychotic features (9) Pneumonia Code(s): J18.9 - PNEUMONIA, UNSPECIFIED ORGANISM Qualifiers: Pneumonia type: due to unspecified organism Laterality: left Lung location: lower lobe of lung Qualified Code(s): J18.1 - Lobar pneumonia, unspecified organism (10) S/P AVR Code(s): Z95.2 - PRESENCE OF PROSTHETIC HEART VALVE (11) Tobacco abuse Code(s): Z72.0 - TOBACCO USE (12) CAD (coronary artery disease) Code(s): I25.10 - ATHSCL HEART DISEASE OF [place] CORONARY ARTERY W/O ANG PCTRS Qualifiers: [place] vs. transplanted heart: [place] heart Associated angina: without angina (13) CHF (congestive heart failure) Code(s): I50.9 - HEART FAILURE, UNSPECIFIED Qualifiers: Heart failure type: systolic Heart failure chronicity: acute on chronic Qualified Code(s): I50.23 - Acute on chronic systolic (congestive) heart failure (14) Coronary artery disease Code(s): I25.10 - ATHSCL HEART DISEASE OF [place] CORONARY ARTERY W/O ANG PCTRS Qualifiers: Coronary Disease-Associated Artery/Lesion type: bypass graft, other Associated angina: with other forms of angina Qualified Code(s): I25.798 - Atherosclerosis of other coronary artery bypass graft(s) with other forms of angina pectoris (15) Diabetes Code(s): E11.9 - TYPE 2 DIABETES MELLITUS WITHOUT COMPLICATIONS Qualifiers: Diabetes mellitus type: type 2 Diabetes mellitus director long term care insulin use: with custodial use Diabetes mellitus complication status: with kidney complications Diabetes mellitus complication detail: with chronic kidney disease Chronic kidney disease stage: stage 3 (moderate) Qualified Code(s): E11.22 - Type 2 diabetes mellitus with diabetic chronic kidney disease; N18.3 - Chronic kidney disease, stage 3 (moderate); Z79.4 - detention (current) use of insulin (16) Peripheral vascular disease Code(s): I73.9 - PERIPHERAL VASCULAR DISEASE, UNSPECIFIED (17) Pleural effusion Code(s): J90 - PLEURAL EFFUSION, NOT ELSEWHERE CLASSIFIED (18) Pulmonary hypertension Code(s): I27.2 - OTHER SECONDARY PULMONARY HYPERTENSION * DO NOT USE * (19) S/P CABG x 3 Code(s): Z95.1 - PRESENCE OF AORTOCORONARY BYPASS GRAFT Assessment/Plan Agree with empiric Zithromax for now. CT changes may be more related to atelectasis and small effusions rather PNA BD TX Symbicort Medrol O2 as needed No smoking VTE prophylaxis Will follow Dr Garner
[2018-02-13 15:34] VITALS: BMI 26.8
--- NOTE | 2018-02-13 15:46 | CONSULT ---
Consult Consult Specialty:: Nephrology Reason for Consultation:: CKD - History of Present Illness Chief Complaint: pt presents with shortness of breath History of Present Illness: Pt is a 62 year old male with pmhx of CKD, COPD on home 02, HTN, DM, CAD, CHF, bioprosthetic AVR, and CABG who presents to the ER with shortness of breath. I was called to evaluate him for elevated creatinine. He has CKD and follows with Dr Stein. His renal function is close to baseline. He is on 80 mg of lasix at home daily. He also had chest pain that was substernal, sharp and non radiating. He denies fevers or chills. He does get lower ext edema. - History Source History Provided By: Patient - Past Medical History Cardio/Vascular: Yes: AFIB (after CABG briefly; not on AC), CAD, CHF, HTN, Mitral Insufficiency Pulmonary: Yes: Bronchitis, COPD, O2 Dependent, Pneumonia Renal/: Yes: Renal Inusuff Endocrine: Yes: Diabetes Mellitus - Past Surgical History Past Surgical History: Yes: AICD, CABG - Alcohol/Substance Use Hx Alcohol Use: No History of Substance Use: reports: None - Smoking History Smoking history: Former smoker (stopped 01/06/18) Have you smoked in the past 12 months: Yes Aproximately how many cigarettes per day: 1 If you are a former smoker, when did you quit?: 06/20/16 - Social History Usual Living Arrangement: With Spouse ADL: Independent History of Recent Travel: No Home Medications - Allergies Allergies/Adverse Reactions: Allergies Allergy/AdvReac Type Severity Reaction Status Date / Time Fish Containing Products Allergy Verified 02/12/18 20:35 codeine AdvReac Intermediate Vomiting Verified 02/12/18 20:35 gabapentin AdvReac Intermediate dizzy Verified 02/12/18 20:35 - Home Medications Home Medications: Ambulatory Orders Aspirin [Aspirin EC] 81 mg PO DAILY 06/18/15 Clopidogrel Bisulfate [Clopidogrel] 75 mg PO DAILY 06/18/15 Zolpidem Tartrate [Ambien] 10 mg PO HS 06/18/15 Psyllium [Metamucil (Sugar-Free) -] 5.85 gm PO BID #1 bottle 06/02/17 Docusate Sodium [Colace -] 100 mg PO TID #90 capsule 09/22/17 Furosemide [Lasix -] 80 mg PO DAILY 7 Days #7 tablet 11/21/17 Cholecalciferol (Vitamin D3) [Vitamin D3] 2,000 unit PO DAILY #30 capsule Lactulose (Oral Use) [Cephulac -] 20 gm PO BID #1 bottle 12/25/17 Budesonide/Formeterol Fumarate [SYMBICORT 160/4.5mcg -] 1 puff IH DAILY inhaler 12/30/17 Cyclobenzaprine HCl 5 mg PO BID #28 tablet 12/30/17 Atorvastatin Ca 20 mg PO HS 01/11/18 Glipizide [Glucotrol -] 5 mg PO BID 01/11/18 Oxycodone HCl/Acetaminophen [Percocet 10-325 mg Tablet] 1 each PO QID PRN #120 tablet MDD 4 01/25/18 Family Disease History - Family Disease History Family Disease History: Heart Disease: Father (etoh), Mother (, cva), Other: Brother (alive - Ramírez - hx etoh), Sister (five - alive - no medical problems), Son (two adults - no problems) Review of Systems - Review of Systems Constitutional: reports: Malaise Eyes: reports: No Symptoms HENT: reports: No Symptoms Neck: reports: No Symptoms Cardiovascular: reports: Chest Pain, Edema, Shortness of Breath Respiratory: reports: SOB, SOB on Exertion Gastrointestinal: reports: No Symptoms Genitourinary: reports: No Symptoms Musculoskeletal: reports: No Symptoms Integumentary: reports: No Symptoms Neurological: reports: No Symptoms Endocrine: reports: No Symptoms Hematology/Lymphatic: reports: No Symptoms Psychiatric: reports: No Symptoms Physical Exam Vital Signs: Vital Signs Temperature 97.8 F 02/13/18 14:00 Pulse Rate 65 02/13/18 14:00 Respiratory Rate 20 02/13/18 12:15 Blood Pressure 140/69 02/13/18 14:00 O2 Sat by Pulse Oximetry (%) 94 L 02/13/18 12:15 Constitutional: Yes: Calm Eyes: Yes: Conjunctiva Clear HENT: Yes: Atraumatic Cardiovascular: Yes: S1, S2 Respiratory: Yes: On Nasal O2 Gastrointestinal: Yes: Soft Renal/: Yes: WNL Musculoskeletal: Yes: WNL Edema: Yes Edema: LLE: Trace, RLE: Trace Neurological: Yes: Oriented Psychiatric: Yes: Oriented Labs: CBC, BMP 02/13/18 05:30 02/13/18 05:30 Imaging - Results Cat Scan: Report Reviewed Problem List - Problems (1) COPD exacerbation Code(s): J44.1 - CHRONIC OBSTRUCTIVE PULMONARY DISEASE W (ACUTE) EXACERBATION (2) Chronic kidney disease (CKD) Code(s): N18.9 - CHRONIC KIDNEY DISEASE, UNSPECIFIED Qualifiers: Chronic kidney disease stage: stage 3 (moderate) Qualified Code(s): N18.3 - Chronic kidney disease, stage 3 (moderate) Assessment/Plan Current Medications Generic Name Dose Route Start Last Admin Trade Name Freq PRN Reason Stop Dose Admin Acetaminophen 325 mg 02/13/18 02:41 Tylenol - PO Q6H PRN PAIN LEVEL 6-10 Albuterol Sulfate 1 amp 02/13/18 14:13 Ventolin 0.083% Nebulizer Soln - NEB Q4H PRN SHORT OF BREATH/WHEEZING Albuterol/Ipratropium 1 amp 02/13/18 20:00 Duoneb - NEB RTID MANJU Aspirin 81 mg 02/13/18 10:00 02/13/18 10:03 Ecotrin - PO 81 mg DAILY MANJU Administration Atorvastatin Calcium 20 mg 02/13/18 22:00 Lipitor - PO HS MANJU Budesonide/Formoterol Fumarate 2 puff 02/13/18 10:00 02/13/18 10:06 Symbicort 160/4.5mcg - IH 2 puff BID MANJU Administration Cholecalciferol 2,000 unit 02/13/18 10:00 02/13/18 10:00 Vitamin D3 - PO 2,000 unit DAILY MANJU Administration Clopidogrel Bisulfate 75 mg 02/13/18 10:00 02/13/18 10:01 Plavix - PO 75 mg DAILY MANJU Administration Cyclobenzaprine HCl 5 mg 02/13/18 10:00 02/13/18 10:09 Flexeril - PO 5 mg BID MANJU Administration Docusate Sodium 100 mg 02/13/18 06:00 02/13/18 14:07 Colace - PO 100 mg TID MANJU Administration Furosemide 80 mg 02/13/18 11:30 Lasix - PO DAILY MANJU Glipizide 5 mg 02/13/18 09:00 02/13/18 10:01 Glucotrol - PO 5 mg BIDAC MANJU Administration Heparin Sodium (Porcine) 5,000 unit 02/13/18 06:00 02/13/18 14:03 Heparin - SQ 5,000 unit TID MANJU Administration Azithromycin 500 mg in 250 mls @ 250 mls/hr 02/13/18 22:00 Zithromax 500mg Ivpb (Pre-Docked) IVPB HS MANJU Insulin Aspart 0 units 02/13/18 16:30 02/13/18 14:14 Novolog Vial SQ 10 units ACHS MANJU Administration Protocol Lactulose 20 gm 02/13/18 10:00 02/13/18 10:03 Cephulac (Oral Use) PO 20 gm BID MANJU Administration Methylprednisolone Sodium Succinate 40 mg 02/13/18 03:00 02/13/18 14:03 Solu-Medrol - IVPUSH 40 mg Q6H-IV MANJU Administration Oxycodone HCl 10 mg 02/13/18 02:41 02/13/18 12:25 Roxicodone - PO 10 mg Q6H PRN Administration PAIN LEVEL 6-10 Psyllium Hydrophilic Mucilloid 5.85 gm 02/13/18 10:00 02/13/18 10:08 Metamucil (Sugar-Free) - PO 5.85 gm BID MANJU Administration Zolpidem Tartrate 10 mg 02/13/18 02:38 Ambien - PO HS PRN INSOMNIA Impression 1. CKD 2. proteinuria 3. CAD 4. CHF 5. COPD 6. DM 7. HTN Plan - cont with 80 mg of lasix - pt not on deidra or arb secondary to hyperkalemia - repeat labs in am - volume status actually appears better than when he was here last time - monitor pulse ox on oxygen - cardio follow up - pt is not on a beta christian, will discuss with cardio Dr Belcher
[2018-02-13] MEDS: ALBUTEROL SO4 2.5/IPRATROPIUM 0.5 INH SOL 3 ML VIAL.NEB. NEB SCH (20:30)
[2018-02-13] MEDS ORDERED: ATORVASTATIN CA 20 MG TABLET (FP) PO SCH (22:00)
[2018-02-13] MEDS ORDERED: AZITHROMYCIN IVPB 500 MG/250 ML BAG IVPB SCH (22:00)
[2018-02-14] MEDS: methylPREDNISolone NA SUCC 40 MG/1 ML VIAL IVPUSH SCH ×2 (02:49→09:57)
[2018-02-14] MEDS: oxyCODONE HCL 5 MG TABLET PO PRN ×2 (03:21→10:10)
[2018-02-14] MEDS: ACETAMINOPHEN 325 MG TABLET (FP) PO PRN ×2 (03:22→10:11)
[2018-02-14] MEDS: INSULIN (NOVOLOG) ASPART 100 UNITS/ML 10ML VIAL SQ SCH ×2 (06:08→12:29)
[2018-02-14] MEDS: HEPARIN NA (PORCINE) 5,000 UNITS/ML 1ML VIAL SQ SCH (06:08)
[2018-02-14] MEDS: DOCUSATE SODIUM 100 MG CAPSULE (FP) PO SCH (06:08)
[2018-02-14] MEDS: glipiZIDE 5 MG TABLET (FP) PO SCH (06:08)
[2018-02-14 06:52] LABS: BASO % 0.2 % (0-2.0); HEMATOCRIT 27.6 % (35.4-49); HEMOGLOBIN 9.3 GM/dL (11.7-16.9); LYMPH % 3.8 % (8-40); MCH 31.8 pg (25.7-33.7); MCHC 33.6 g/dl (32.0-35.9); MEAN CELL VOLUME 94.7 fl (80-96); MEAN PLT VOLUME 9.1 fl (7.5-11.1); PLATELET COUNT 120 K/MM3 (134-434); RBC 2.92 M/mm3 (4.00-5.60); RDW 16.3 % (11.9-15.9); WHITE BLOOD COUNT 8.2 K/mm3 (4.0-10.0)
[2018-02-14] MEDS: ALBUTEROL SO4 2.5/IPRATROPIUM 0.5 INH SOL 3 ML VIAL.NEB. NEB SCH (07:20)
[2018-02-14 07:49] LABS: ALBUMIN 2.8 g/dl (3.4-5.0); ALK PHOS 109 U/L (45-117); ANION GAP 10 MMOL/L (8-16); BILIRUBIN,TOTAL 0.4 mg/dL (0.2-1); BLOOD UREA NITROGEN 57 mg/dL (7-18); CALCIUM 7.9 mg/dL (8.5-10.1); CHLORIDE 100 mmol/L (98-107); CO2 31 mmol/L (21-32); CREATININE 2.5 mg/dL (0.55-1.3); GLUCOSE,RANDOM 164 mg/dL (74-106); MAGNESIUM 2.1 mg/dL (1.8-2.4); PHOSPHOROUS 3.2 mg/dL (2.5-4.9); POTASSIUM 3.7 mmol/L (3.5-5.1); SGOT/AST 27 U/L (15-37); SGPT/ALT 19 U/L (13-61); SODIUM 140 mmol/L (136-145); TOT PROT 5.8 g/dl (6.4-8.2)
[2018-02-14 09:57] VITALS: BP 153/97; PULSE 95; TEMP 98
[2018-02-14] MEDS: CLOPIDOGREL BISULFATE 75 MG TABLET (FP) PO SCH (09:58)
[2018-02-14] MEDS: ASPIRIN COATED 81 MG TABLET.EC PO SCH (09:58)
[2018-02-14] MEDS: CYCLOBENZAPRINE HCL 10 MG TABLET (FP) PO SCH (09:58)
[2018-02-14] MEDS: LACTULOSE 20 GM/30 ML UDC (FOR ORAL USE ONLY) PO SCH (09:58)
[2018-02-14] MEDS: CHOLECALCIFEROL (VITAMIN D3) 1,000 UNIT TABLET (FP) PO SCH (09:59)
[2018-02-14] MEDS: PSYLLIUM 5.85 GM PACKET PO SCH (09:59)
--- NOTE | 2018-02-14 10:02 | DS ---
Physical Examination Vital Signs: Vital Signs Temperature 36.6 C 02/14/18 09:40 Pulse Rate 95 H 02/14/18 09:40 Respiratory Rate 20 02/14/18 09:40 Blood Pressure 153/97 02/14/18 09:40 O2 Sat by Pulse Oximetry (%) 99 02/13/18 22:00 Constitutional: Yes: Well Nourished, No Distress, Calm Cardiovascular: Yes: Regular Rate and Rhythm. No: Gallop, Murmur, Rub Respiratory: Yes: Regular, CTA Bilaterally, On Nasal O2. No: Rales, Rhonchi, Wheezes Gastrointestinal: Yes: Normal Bowel Sounds, Soft. No: Distention, Tenderness Extremities: Yes: WNL Edema: No Labs: CBC, BMP 02/14/18 05:20 02/14/18 05:20 Discharge Summary Reason For Visit: CONGESTIVE HEART FAILURE,RESPIRATORY DISTRESS Current Active Problems ERROL (acute kidney injury) (Acute) Acute exacerbation of CHF (congestive heart failure) (Acute) Weakness (Acute) Hospital Course: (1) CHF (congestive heart failure) Code(s): I50.9 - HEART FAILURE, UNSPECIFIED Qualifiers: Heart failure type: systolic Heart failure chronicity: acute on chronic Qualified Code(s): I50.23 - Acute on chronic systolic (congestive) heart failure (2) COPD exacerbation Code(s): J44.1 - CHRONIC OBSTRUCTIVE PULMONARY DISEASE W (ACUTE) EXACERBATION (3) ERROL (acute kidney injury) Code(s): N17.9 - ACUTE KIDNEY FAILURE, UNSPECIFIED (4) Afib Code(s): I48.91 - UNSPECIFIED ATRIAL FIBRILLATION Qualifiers: Atrial fibrillation type: chronic Qualified Code(s): I48.2 - Chronic atrial fibrillation (5) Chronic kidney disease (CKD) Code(s): N18.9 - CHRONIC KIDNEY DISEASE, UNSPECIFIED Qualifiers: Chronic kidney disease stage: stage 3 (moderate) Qualified Code(s): N18.3 - Chronic kidney disease, stage 3 (moderate) (6) Weakness Code(s): R53.1 - WEAKNESS (7) Coronary artery disease Code(s): I25.10 - ATHSCL HEART DISEASE OF [place] CORONARY ARTERY W/O ANG PCTRS Qualifiers: Coronary Disease-Associated Artery/Lesion type: bypass graft, other Associated angina: with other forms of angina Qualified Code(s): I25.798 - Atherosclerosis of other coronary artery bypass graft(s) with other forms of angina pectoris (8) Diabetes Code(s): E11.9 - TYPE 2 DIABETES MELLITUS WITHOUT COMPLICATIONS Qualifiers: Diabetes mellitus type: type 2 Diabetes mellitus laborer marine terminal insulin use: with chcf use Diabetes mellitus complication status: with kidney complications Diabetes mellitus complication detail: with chronic kidney disease Chronic kidney disease stage: stage 3 (moderate) Qualified Code(s): E11.22 - Type 2 diabetes mellitus with diabetic chronic kidney disease; N18.3 - Chronic kidney disease, stage 3 (moderate); Z79.4 - superintendent terminal (current) use of 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 (10) Pneumonia Code(s): J18.9 - PNEUMONIA, UNSPECIFIED ORGANISM Qualifiers: Pneumonia type: due to unspecified organism Laterality: left Lung location: lower lobe of lung Qualified Code(s): J18.9 - Pneumonia, unspecified organism Mr Owen is a pleasant 62 year old male who comes in with shortness of breath. He was admitted to telemetry. He was given lasix 80mg IV in the ED and diuresed. He was seen by pulmonary and given a short course of steroids. He improved significantly with that treatment. Today he says he is feeling better, he states he is feeling back to normal and requesting to go home. Case d/w Dr Zafar who agrees with the discharge. He is safe for discharge home today. Of note, Dr Zafar states he is on coreg 25mg bid at home and this will be restarted. Also is not on and ACEI/ARB secondary to hyperkalemia. 32 minutes spent in preparation of this discharge. Condition: Stable - Instructions Diet, Activity, Other Instructions: resume previous diet and activity Referrals: Kanu Truong MD [Primary Care Provider] - Randy Rivas MD [Staff Physician] - Anthony Zafar MD [Staff Physician] - Disposition: HOME - Home Medications Comprehensive Discharge Medication List: Ambulatory Orders Aspirin [Aspirin EC] 81 mg PO DAILY 06/18/15 Clopidogrel Bisulfate [Clopidogrel] 75 mg PO DAILY 06/18/15 Zolpidem Tartrate [Ambien] 10 mg PO HS 06/18/15 Psyllium [Metamucil (Sugar-Free) -] 5.85 gm PO BID #1 bottle 06/02/17 Docusate Sodium [Colace -] 100 mg PO TID #90 capsule 09/22/17 Furosemide [Lasix -] 80 mg PO DAILY 7 Days #7 tablet 11/21/17 Cholecalciferol (Vitamin D3) [Vitamin D3] 2,000 unit PO DAILY #30 capsule Lactulose (Oral Use) [Cephulac -] 20 gm PO BID #1 bottle 12/25/17 Budesonide/Formeterol Fumarate [SYMBICORT 160/4.5mcg -] 1 puff IH DAILY inhaler 12/30/17 Cyclobenzaprine HCl 5 mg PO BID #28 tablet 12/30/17 Atorvastatin Ca 20 mg PO HS 01/11/18 Glipizide [Glucotrol -] 5 mg PO BID 01/11/18 Oxycodone HCl/Acetaminophen [Percocet 10-325 mg Tablet] 1 each PO QID PRN #120 tablet MDD 4 01/25/18 Carvedilol [Coreg -] 25 mg PO BID #60 tablet 02/14/18
[2018-02-14 10:41] LABS: ANISOCYTOSIS 1+; MACROCYTOSIS 1+; PLATELET ESTIMATE DECREASED
--- NOTE | 2018-02-14 13:14 | PN ---
Progress Note (short form) - Note Progress Note: Appears stable. No acute events overnight. Intake & Output 02/11/18 02/12/18 02/13/18 02/14/18 23:59 23:59 23:59 23:59 Intake Total 1040 260 Output Total 850 700 Balance 190 -440 Weight 190 lb 187 lb 193 lb 6.4 oz Last Vital Signs Temp Pulse Resp BP Pulse Ox 98 F 95 H 20 153/97 99 02/14/18 09:40 02/14/18 09:40 02/14/18 09:40 02/14/18 09:40 02/13/18 22:00 Active Medications Acetaminophen (Tylenol -) 325 mg PO Q6H PRN PRN Reason: PAIN LEVEL 6-10 Last Admin: 02/14/18 10:11 Dose: 325 mg Albuterol Sulfate (Ventolin 0.083% Nebulizer Soln -) 1 amp NEB Q4H PRN PRN Reason: SHORT OF BREATH/WHEEZING Albuterol/Ipratropium (Duoneb -) 1 amp NEB RTID [facility] Last Admin: 02/14/18 07:20 Dose: 1 amp Aspirin (Ecotrin -) 81 mg PO DAILY [facility] Last Admin: 02/14/18 09:58 Dose: 81 mg Atorvastatin Calcium (Lipitor -) 20 mg PO HS [facility] Last Admin: 02/13/18 21:38 Dose: 20 mg Budesonide/Formoterol Fumarate (Symbicort 160/4.5mcg -) 2 puff IH BID [facility] Last Admin: 02/13/18 22:05 Dose: 2 puff Cholecalciferol (Vitamin D3 -) 2,000 unit PO DAILY [facility] Last Admin: 02/14/18 09:59 Dose: 2,000 unit Clopidogrel Bisulfate (Plavix -) 75 mg PO DAILY [facility] Last Admin: 02/14/18 09:58 Dose: 75 mg Cyclobenzaprine HCl (Flexeril -) 5 mg PO BID [facility] Last Admin: 02/14/18 09:58 Dose: 5 mg Docusate Sodium (Colace -) 100 mg PO TID [facility] Last Admin: 02/14/18 06:08 Dose: 100 mg Furosemide (Lasix -) 80 mg PO DAILY [facility] Last Admin: 02/14/18 09:58 Dose: 80 mg Glipizide (Glucotrol -) 5 mg PO BIDAC [facility] Last Admin: 02/14/18 06:08 Dose: 5 mg Heparin Sodium (Porcine) (Heparin -) 5,000 unit SQ TID [facility] Last Admin: 02/14/18 06:08 Dose: 5,000 unit Azithromycin (Zithromax 500mg Ivpb (Pre-Docked)) 500 mg in 250 mls @ 250 mls/ hr IVPB HS [facility] Last Admin: 02/13/18 22:05 Dose: 250 mls/hr Insulin Aspart (Novolog Vial) 0 units SQ ACHS [facility]; Protocol Last Admin: 02/14/18 12:29 Dose: 4 units Lactulose (Cephulac (Oral Use)) 20 gm PO BID [facility] Last Admin: 02/14/18 09:58 Dose: 20 gm Methylprednisolone Sodium Succinate (Solu-Medrol -) 40 mg IVPUSH Q6H-IV [facility] Last Admin: 02/14/18 09:57 Dose: 40 mg Oxycodone HCl (Roxicodone -) 10 mg PO Q6H PRN PRN Reason: PAIN LEVEL 6-10 Last Admin: 02/14/18 10:10 Dose: 10 mg Psyllium Hydrophilic Mucilloid (Metamucil (Sugar-Free) -) 5.85 gm PO BID [facility] Last Admin: 02/14/18 09:59 Dose: 5.85 gm Zolpidem Tartrate (Ambien -) 10 mg PO HS PRN PRN Reason: INSOMNIA Last Admin: 02/13/18 21:57 Dose: 10 mg Constitutional: Yes: No Distress, Calm Eyes: Yes: Conjunctiva Clear, EOM Intact HENT: Yes: Atraumatic, Normocephalic Neck: Yes: Supple, Trachea Midline Cardiovascular: Yes: Regular Rate and Rhythm Respiratory: Yes: Cough, Diminished, On Nasal O2, Rhonchi. No: Accessory Muscle Use, Rales, Stridor ...Inspection: Yes: WNL ...Clubbing: No Gastrointestinal: Yes: Normal Bowel Sounds, Soft Renal/: Yes: WNL Musculoskeletal: Yes: WNL Extremities: Yes: WNL Edema: No Peripheral Pulses WNL: Yes Integumentary: Yes: WNL Neurological: Yes: WNL, Alert, Oriented ...Motor Strength: WNL Psychiatric: Yes: WNL, Alert, Oriented Labs: Laboratory Results - last 24 hr 02/13/18 02/13/18 02/14/18 16:36 21:04 05:20 WBC 8.2 RBC 2.92 L Hgb 9.3 L Hct 27.6 L MCV 94.7 MCH 31.8 MCHC 33.6 RDW 16.3 H Plt Count 120 L MPV 9.1 Absolute Neuts (auto) 7.6 Neutrophils % 93.0 H Neutrophils % (Manual) 73.0 Band Neutrophils % 19.0 Lymphocytes % 3.8 L Lymphocytes % (Manual) 0.0 L Monocytes % 3.0 L Monocytes % (Manual) 2 L Eosinophils % 0.0 D Eosinophils % (Manual) 2.0 Basophils % 0.2 Basophils % (Manual) 0.0 Myelocytes % (Man) 0 Promyelocytes % (Man) 0 Blast Cells % (Manual) 0 Nucleated RBC % 0 Metamyelocytes 0 Hypochromia 0 Platelet Estimate Decreased Platelet Comment Present Polychromasia 1+ Poikilocytosis 1+ Basophilic Stippling 1+ Anisocytosis 1+ Microcytosis 1+ Macrocytosis 1+ Sodium Potassium Chloride Carbon Dioxide Anion Gap BUN Creatinine Creat Clearance w eGFR POC Glucometer 318 356 Random Glucose Calcium Phosphorus Magnesium Total Bilirubin AST ALT Alkaline Phosphatase Total Protein Albumin 02/14/18 02/14/18 02/14/18 05:20 05:54 11:47 WBC RBC Hgb Hct MCV MCH MCHC RDW Plt Count MPV Absolute Neuts (auto) Neutrophils % Neutrophils % (Manual) Band Neutrophils % Lymphocytes % Lymphocytes % (Manual) Monocytes % Monocytes % (Manual) Eosinophils % Eosinophils % (Manual) Basophils % Basophils % (Manual) Myelocytes % (Man) Promyelocytes % (Man) Blast Cells % (Manual) Nucleated RBC % Metamyelocytes Hypochromia Platelet Estimate Platelet Comment Polychromasia Poikilocytosis Basophilic Stippling Anisocytosis Microcytosis Macrocytosis Sodium 140 Potassium 3.7 Chloride 100 Carbon Dioxide 31 Anion Gap 10 BUN 57 H Creatinine 2.5 H Creat Clearance w eGFR 26.30 POC Glucometer 196 241 Random Glucose 164 H Calcium 7.9 L Phosphorus 3.2 Magnesium 2.1 Total Bilirubin 0.4 AST 27 ALT 19 Alkaline Phosphatase 109 Total Protein 5.8 L Albumin 2.8 L Problem List - Problems (1) Afib Code(s): I48.91 - UNSPECIFIED ATRIAL FIBRILLATION Qualifiers: Atrial fibrillation type: chronic Qualified Code(s): I48.2 - Chronic atrial fibrillation (2) Back pain Code(s): M54.9 - DORSALGIA, UNSPECIFIED (3) Bronchitis Code(s): J40 - BRONCHITIS, NOT SPECIFIED ACUTE OR CHRONIC (4) COPD (chronic obstructive pulmonary disease) Code(s): J44.9 - CHRONIC OBSTRUCTIVE PULMONARY DISEASE, UNSPECIFIED (5) COPD exacerbation Code(s): J44.1 - CHRONIC OBSTRUCTIVE PULMONARY DISEASE W (ACUTE) EXACERBATION (6) Chronic kidney disease (CKD) Code(s): N18.9 - CHRONIC KIDNEY DISEASE, UNSPECIFIED Qualifiers: Chronic kidney disease stage: stage 3 (moderate) Qualified Code(s): N18.3 - Chronic kidney disease, stage 3 (moderate) (7) Cough Code(s): R05 - COUGH (8) Depression Code(s): F32.9 - MAJOR DEPRESSIVE DISORDER, SINGLE EPISODE, UNSPECIFIED Qualifiers: Depression Type: major depressive disorder Major depression recurrence: unspecified whether recurrent Active/Remission status: currently active Psychotic features: without psychotic features (9) Pneumonia Code(s): J18.9 - PNEUMONIA, UNSPECIFIED ORGANISM Qualifiers: Pneumonia type: due to unspecified organism Laterality: left Lung location: lower lobe of lung Qualified Code(s): J18.1 - Lobar pneumonia, unspecified organism (10) S/P AVR Code(s): Z95.2 - PRESENCE OF PROSTHETIC HEART VALVE (11) Tobacco abuse Code(s): Z72.0 - TOBACCO USE (12) CAD (coronary artery disease) Code(s): I25.10 - ATHSCL HEART DISEASE OF [place] CORONARY ARTERY W/O ANG PCTRS Qualifiers: [place] vs. transplanted heart: [place] heart Associated angina: without angina (13) CHF (congestive heart failure) Code(s): I50.9 - HEART FAILURE, UNSPECIFIED Qualifiers: Heart failure type: systolic Heart failure chronicity: acute on chronic Qualified Code(s): I50.23 - Acute on chronic systolic (congestive) heart failure (14) Coronary artery disease Code(s): I25.10 - ATHSCL HEART DISEASE OF [place] CORONARY ARTERY W/O ANG PCTRS Qualifiers: Coronary Disease-Associated Artery/Lesion type: bypass graft, other Associated angina: with other forms of angina Qualified Code(s): I25.798 - Atherosclerosis of other coronary artery bypass graft(s) with other forms of angina pectoris (15) Diabetes Code(s): E11.9 - TYPE 2 DIABETES MELLITUS WITHOUT COMPLICATIONS Qualifiers: Diabetes mellitus type: type 2 Diabetes mellitus intermediate insulin use: with it operations specialist use Diabetes mellitus complication status: with kidney complications Diabetes mellitus complication detail: with chronic kidney disease Chronic kidney disease stage: stage 3 (moderate) Qualified Code(s): E11.22 - Type 2 diabetes mellitus with diabetic chronic kidney disease; N18.3 - Chronic kidney disease, stage 3 (moderate); Z79.4 - jury consultant (current) use of insulin (16) Peripheral vascular disease Code(s): I73.9 - PERIPHERAL VASCULAR DISEASE, UNSPECIFIED (17) Pleural effusion Code(s): J90 - PLEURAL EFFUSION, NOT ELSEWHERE CLASSIFIED (18) Pulmonary hypertension Code(s): I27.2 - OTHER SECONDARY PULMONARY HYPERTENSION * DO NOT USE * (19) S/P CABG x 3 Code(s): Z95.1 - PRESENCE OF AORTOCORONARY BYPASS GRAFT Assessment/Plan Prednisone taper Symbicort No smoking D/C planning Dr Garner Problem List - Problems (1) Afib Code(s): I48.91 - UNSPECIFIED ATRIAL FIBRILLATION Qualifiers: Atrial fibrillation type: chronic Qualified Code(s): I48.2 - Chronic atrial fibrillation (2) Back pain Code(s): M54.9 - DORSALGIA, UNSPECIFIED (3) Bronchitis Code(s): J40 - BRONCHITIS, NOT SPECIFIED ACUTE OR CHRONIC (4) COPD (chronic obstructive pulmonary disease) Code(s): J44.9 - CHRONIC OBSTRUCTIVE PULMONARY DISEASE, UNSPECIFIED (5) COPD exacerbation Code(s): J44.1 - CHRONIC OBSTRUCTIVE PULMONARY DISEASE W (ACUTE) EXACERBATION (6) Chronic kidney disease (CKD) Code(s): N18.9 - CHRONIC KIDNEY DISEASE, UNSPECIFIED Qualifiers: Chronic kidney disease stage: stage 3 (moderate) Qualified Code(s): N18.3 - Chronic kidney disease, stage 3 (moderate) (7) Cough Code(s): R05 - COUGH (8) Depression Code(s): F32.9 - MAJOR DEPRESSIVE DISORDER, SINGLE EPISODE, UNSPECIFIED Qualifiers: Depression Type: major depressive disorder Major depression recurrence: unspecified whether recurrent Active/Remission status: currently active Psychotic features: without psychotic features (9) Pneumonia Code(s): J18.9 - PNEUMONIA, UNSPECIFIED ORGANISM Qualifiers: Pneumonia type: due to unspecified organism Laterality: left Lung location: lower lobe of lung Qualified Code(s): J18.1 - Lobar pneumonia, unspecified organism (10) S/P AVR Code(s): Z95.2 - PRESENCE OF PROSTHETIC HEART VALVE (11) Tobacco abuse Code(s): Z72.0 - TOBACCO USE (12) CAD (coronary artery disease) Code(s): I25.10 - ATHSCL HEART DISEASE OF [place] CORONARY ARTERY W/O ANG PCTRS Qualifiers: [place] vs. transplanted heart: [place] heart Associated angina: without angina (13) CHF (congestive heart failure) Code(s): I50.9 - HEART FAILURE, UNSPECIFIED Qualifiers: Heart failure type: systolic Heart failure chronicity: acute on chronic Qualified Code(s): I50.23 - Acute on chronic systolic (congestive) heart failure (14) Coronary artery disease Code(s): I25.10 - ATHSCL HEART DISEASE OF [place] CORONARY ARTERY W/O ANG PCTRS Qualifiers: Coronary Disease-Associated Artery/Lesion type: bypass graft, other Associated angina: with other forms of angina Qualified Code(s): I25.798 - Atherosclerosis of other coronary artery bypass graft(s) with other forms of angina pectoris (15) Diabetes Code(s): E11.9 - TYPE 2 DIABETES MELLITUS WITHOUT COMPLICATIONS Qualifiers: Diabetes mellitus type: type 2 Diabetes mellitus intermediate insulin use: with it operations specialist use Diabetes mellitus complication status: with kidney complications Diabetes mellitus complication detail: with chronic kidney disease Chronic kidney disease stage: stage 3 (moderate) Qualified Code(s): E11.22 - Type 2 diabetes mellitus with diabetic chronic kidney disease; N18.3 - Chronic kidney disease, stage 3 (moderate); Z79.4 - jury consultant (current) use of insulin (16) Peripheral vascular disease Code(s): I73.9 - PERIPHERAL VASCULAR DISEASE, UNSPECIFIED (17) Pleural effusion Code(s): J90 - PLEURAL EFFUSION, NOT ELSEWHERE CLASSIFIED (18) Pulmonary hypertension Code(s): I27.2 - OTHER SECONDARY PULMONARY HYPERTENSION * DO NOT USE * (19) S/P CABG x 3 Code(s): Z95.1 - PRESENCE OF AORTOCORONARY BYPASS GRAFT
--- NOTE | 2018-02-14 19:13 | EKG ---
Test Reason : Blood Pressure : / mmHG Vent. Rate : 062 BPM Atrial Rate : 250 BPM P-R Int : 000 ms QRS Dur : 202 ms QT Int : 530 ms P-R-T Axes : 000 -84 082 degrees QTc Int : 537 ms Ventricular-paced rhythm WITH PREMATURE VENTRICULAR OR ABERRANTLY CONDUCTED COMPLEXES UNDERLYING ATRIAL FLUTTER WHEN COMPARED WITH ECG OF 06-JAN-2018 23:25, VENT. RATE HAS DECREASED BY 8 BPM Confirmed by AGNES PATTERSON, ODELL ([id number]) on 02/14/2018 7:12:27 PM Referred By: Confirmed By:ODELL ALARCON MD
== END 2018-02-14 13:13 | disposition home or self-care (01) | DRG 291 ==
LOC: JER 20:07 → JERBED 22:37 → J4W 02-13 04:18
PROVIDERS: ADMIT Internal Medicine; ATTEND Internal Medicine
DX: I13.0 Hypertensive heart and chronic kidney disease with heart failure and stage 1 through stage 4 chronic kidney disease, or unspecified chronic kidney disease (principal); I50.23 Acute on chronic systolic (congestive) heart failure; J18.9 Pneumonia, unspecified organism; J44.1 Chronic obstructive pulmonary disease with (acute) exacerbation; N17.9 Acute kidney failure, unspecified; J98.11 Atelectasis; Z99.81 Dependence on supplemental oxygen; I25.10 Atherosclerotic heart disease of native coronary artery without angina pectoris; Z95.1 Presence of aortocoronary bypass graft; E11.22 Type 2 diabetes mellitus with diabetic chronic kidney disease; Z95.0 Presence of cardiac pacemaker; Z95.2 Presence of prosthetic heart valve; Z79.84 Long term (current) use of oral hypoglycemic drugs; D64.9 Anemia, unspecified; I48.2 Chronic atrial fibrillation; N18.3 Chronic kidney disease, stage 3 (moderate); I34.0 Nonrheumatic mitral (valve) insufficiency; M54.9 Dorsalgia, unspecified; F32.9 Major depressive disorder, single episode, unspecified; Z72.0 Tobacco use; E11.51 Type 2 diabetes mellitus with diabetic peripheral angiopathy without gangrene; I27.20 Pulmonary hypertension, unspecified; R06.03 Acute respiratory distress; E87.5 Hyperkalemia
CPT/HCPCS: 36415; 70450-TC; 71045-TC-FY; 71250-TC; 80048; 80053; 81003; 81015; 82550; 82803; 82962; 83036; 83735; 83880; 84100; 84484; 85025; 85610; 87040; 87899; 93005; 93010; 94640; 99285-25; J1644

== ENCOUNTER 2018-02-16 00:01 | Inpatient (IN) | payer OTHER ==
[2018-02-16 00:39] VITALS: BMI 25.5
--- NOTE | 2018-02-16 01:18 | PDOC ---
Attending Attestation - Resident Resident Name: Margarita Watkins - ED Attending Attestation I have performed the following: I have examined & evaluated the patient, The case was reviewed & discussed with the resident, I agree w/resident's findings & plan, Exceptions are as noted - HPI HPI: 02/16/18 01:40 62 yo M h/o COPD on 2-4 L NC, HTN, DM, CAD s/p CABG, PPM P/w shortness of breath S/p d/c from hospital 2 days ago Occurred while in bed (+) Cough with brown sputum Per family member, he is intermittently altered - Physicial Exam PE: 02/16/18 01:42 GENERAL: The patient is in no acute distress ENT: Ears normal, nares patent, oropharynx clear without exudates. Moist mucous membranes. NECK: Normal range of motion, supple without lymphadenopathy, JVD, or masses. LUNGS: Breath sounds equal, decreased breath sounds, no rhonchi HEART:Regular rate and rhythm, normal S1 and S2 without murmur, rub or gallop. ABDOMEN: Soft, nontender EXTREMITIES: Normal range of motion, no edema. NEUROLOGICAL: Cranial nerves II through XII grossly intact. Normal speech. No focal neurological deficits. SKIN: Warm, Dry, normal turgor, no rashes or lesions noted. - Medical Decision Making 02/16/18 01:52 Pt presents with shortness of breath DD: has a h/o COPD, ACS, PE, Pneumonia Will do: Labs CXR EKG ABG Re Assess Anticipate admission 02/16/18 21:48 Laboratory Tests 02/16/18 02:55 WBC 11.2 H Hgb 10.3 L Hct 30.8 L Plt Count 148 D CMP pending CXR similar to prior CXR Will diurese Will admit
--- NOTE | 2018-02-16 01:27 | PDOC ---
History of Present Illness - General Chief Complaint: Shortness of Breath Stated Complaint: TROUBLE BREATHING Time Seen by Provider: 02/16/18 00:30 History Source: Patient, Family (niece) - History of Present Illness Initial Comments: 02/16/18 01:25 62M w/ pmhx of COPD (currently on 2-4L NC at home), HTN, DM type II, CAD (s/p CABG 2010), PPM (2010) presents with shortness of breath. Of note, pt was recently discharged from the hospital 02/15/18 for evaluation of shortness of breath. Today, pt states he was at home laying down and became acutely short of breath. He also admits to a constant cough since being discharged from the hospital with productive brown and yellow sputum. Denies f/c, shelton/d, n/v, cp, abd pain, urinary/bowel symptoms. Denies f/c, n/v, abd pain, recent antibiotic use. PCP: Dr. Truong Cardio: Dr. 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 Denies recent travel. Past History - Past Medical History Allergies/Adverse Reactions: Allergies Allergy/AdvReac Type Severity Reaction Status Date / Time Fish Containing Products Allergy Verified 02/16/18 09:44 codeine AdvReac Intermediate Vomiting Verified 02/16/18 09:44 gabapentin AdvReac Intermediate dizzy Verified 02/16/18 09:44 Home Medications: Ambulatory Orders Aspirin [Aspirin EC] 81 mg PO DAILY 06/18/15 Clopidogrel Bisulfate [Clopidogrel] 75 mg PO DAILY 06/18/15 Zolpidem Tartrate [Ambien] 10 mg PO HS 06/18/15 Psyllium [Metamucil (Sugar-Free) -] 5.85 gm PO BID #1 bottle 06/02/17 Docusate Sodium [Colace -] 100 mg PO TID #90 capsule 09/22/17 Furosemide [Lasix -] 80 mg PO DAILY 7 Days #7 tablet 11/21/17 Cholecalciferol (Vitamin D3) [Vitamin D3] 2,000 unit PO DAILY #30 capsule Budesonide/Formeterol Fumarate [SYMBICORT 160/4.5mcg -] 1 puff IH DAILY inhaler 12/30/17 Cyclobenzaprine HCl 5 mg PO BID #28 tablet 12/30/17 Atorvastatin Ca 20 mg PO HS 01/11/18 Glipizide [Glucotrol -] 5 mg PO BID 01/11/18 Carvedilol [Coreg -] 25 mg PO BID #60 tablet 02/14/18 Lactulose (Oral Use) [Cephulac -] 20 gm PO BID PRN 02/16/18 Oxycodone HCl 10 mg PO QID PRN 02/16/18 Anemia: No Asthma: No Cancer: No Cardiac Disorders: Yes (cabg, AFIB) CVA: No COPD: Yes CHF: Yes (with pleural effusion) Dementia: No Diabetes: Yes (with neuropathy) GI Disorders: No Disorders: No HTN: Yes Hypercholesterolemia: Yes Liver Disease: No Seizures: No Thyroid Disease: No - Surgical History Abdominal Surgery: No Appendectomy: No Cardiac Surgery: Yes (CABG x 3, implanted defib and pacer) Cholecystectomy: No Lung Surgery: No Neurologic Surgery: No Orthopedic Surgery: No - Immunization History Td Vaccination: Yes (unknown) Immunization Up to Date: Yes - Suicide/Smoking/Psychosocial Hx Smoking Status: Yes Smoking History: Never smoked Years of Tobacco Use: 40 Have you smoked in the past 12 months: No Number of Cigarettes Smoked Daily: 1 If you are a former smoker, when did you quit?: 06/20/16 Cigars Per Day: 0 Information on smoking cessation initiated: No 'Breaking Loose' booklet given: 01/07/18 Hx Alcohol Use: No Drug/Substance Use Hx: No Substance Use Type: None Hx Substance Use Treatment: No Review of Systems - Review of Systems Able to Perform ROS?: Yes Is the patient limited Divehi proficient: No Constitutional: No: Chills, Fever HEENTM: No: Recent change in vision Respiratory: Yes: Cough, Shortness of Breath, SOB at Rest, Productive cough ( brown and yellow) Cardiac (ROS): No: Chest Pain ABD/GI: No: Constipated, Diarrhea, Nausea, Vomiting Neurological: No: Headache *Physical Exam - Vital Signs Last Vital Signs Temp Pulse Resp BP Pulse Ox 98.7 F 102 H 22 H 139/88 96 02/16/18 00:03 02/16/18 00:03 02/16/18 00:03 02/16/18 00:03 02/16/18 01:19 - Physical Exam Comments: 02/16/18 01:48 GEN: Currently on BiPAP. Resting comfortably. AAOx3. HEENT: AT/NC. EOMI. PARESH. Dry mucus membranes. Neck: Supple, no LAD/JVD. Lungs: Decreased breath sounds b/l. No wheezes noted. Heart: RRR. Normal S1, S2. No murmurs noted. Abd: Soft, NT/ND. Decreased BS in all 4Q's. MSK: No peripheral edema noted. 08/08 muscle strength upper b/l extremities. Neuro: CN II-XII intact. 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 -CBC/CMP, cardiac profile, Mag, BNP, PT/INR, ABG, CXR, EKG 02/16/18 02:12 -CXR pending read -await ABG results -Pt was recently discharged on 02/14/18 after being treated for complaints of shortness of breath. Upon initial presentation in the ED today, pt was tachycardic at 102, RR 22, with WBC of 11.2. (Pt was discharged 2 days ago with stable vitals and WBC of 8.2). Upon arrival, pt was dyspneic and was placed on BiPAP after which his O2 improved to 100%. [place] [address]. (Last BNP done on 02/12/18 was 97083). Trop elevated at 0.12. BNP and trop elevated likely due to chronic CHF, however recent episode of respiratory distress may be due to an acute exacerbation. 02/16/18 05:53 Pt taken off BiPAP and currently satting at 100% on 2L NC. Pt may be having an acute on chronic CHF exacerbation vs. COPD exacerbation. He presented with symptoms of both sob and cough. -Lasix 40 mg IV ordered -Await CXR read to r/o possible concomitant PNA. -Repeat trops at 9:00am ordered 02/16/18 06:44 -Will admit to inpatient obs, await callback from hospitalist service Case discussed with Dr. Joshua (ED attending) -Margarita Watkins DO - PGY1 02/16/18 07:[address] David *DC/Admit/Observation/Transfer Diagnosis at time of Disposition: CHF exacerbation Qualifiers: Heart failure type: systolic Qualified Code(s): I50.23 - Acute on chronic systolic (congestive) heart failure COPD (chronic obstructive pulmonary disease) Qualifiers: COPD type: COPD with acute exacerbation Qualified Code(s): J44.1 - Chronic obstructive pulmonary disease with (acute) exacerbation - Discharge Dispostion Condition at time of disposition: Stable - Referrals - Patient Instructions - Post Discharge Activity
[2018-02-16 03:36] LABS: BASO % 0.3 % (0-2.0); EOS % 0.9 % (0-4.5); HEMATOCRIT 30.8 % (35.4-49); HEMOGLOBIN 10.3 GM/dL (11.7-16.9); LYMPH % 3.8 % (8-40); MCH 32.2 pg (25.7-33.7); MCHC 33.4 g/dl (32.0-35.9); MEAN CELL VOLUME 96.4 fl (80-96); MEAN PLT VOLUME 9.5 fl (7.5-11.1); MONO % 5.8 % (3.8-10.2); NEUT % 89.2 % (42.8-82.8); PLATELET COUNT 148 K/MM3 (134-434); RDW 16.6 % (11.9-15.9); WHITE BLOOD COUNT 11.2 K/mm3 (4.0-10.0)
[2018-02-16 03:46] LABS: INR 1.17 (0.83-1.09); PROTHROMBIN TIME (PATIENT) 13.8 SEC (9.7-13.0)
[2018-02-16 04:01] LABS: ALBUMIN 3.1 g/dl (3.4-5.0); ALK PHOS 80 U/L (45-117); ANION GAP 9 MMOL/L (8-16); BILIRUBIN,TOTAL 0.5 mg/dL (0.2-1); BLOOD UREA NITROGEN 62 mg/dL (7-18); CALCIUM 8.1 mg/dL (8.5-10.1); CHLORIDE 97 mmol/L (98-107); CO2 30 mmol/L (21-32); CREATININE 2.3 mg/dL (0.55-1.3); GLUCOSE,RANDOM 92 mg/dL (74-106); MAGNESIUM 2.1 mg/dL (1.8-2.4); N-TERMINAL BNP 22989.8 pg/ml (5-125); POTASSIUM 4.1 mmol/L (3.5-5.1); SGOT/AST 39 U/L (15-37); SGPT/ALT 28 U/L (13-61); SODIUM 137 mmol/L (136-145); TOT PROT 6.2 g/dl (6.4-8.2)
[2018-02-16 06:23] LABS: ARTERIAL BLOOD GAS BASE EXCESS 6.6 meq/l (-2-2); ARTERIAL BLOOD GAS PCO2 57.7 mmHg (35-45); ARTERIAL BLOOD GAS pH 7.37 (7.35-7.45)
[2018-02-16] MEDS ORDERED: FUROSEMIDE 40 MG/4 ML INJECTABLE VIAL IVPUSH ONE (06:34)
[2018-02-16 06:36] LABS: ALLENS TEST POSITIVE
[2018-02-16] MEDS ORDERED: guaiFENesin 200 MG/10 ML 10 ML UNIT-DOSE CUPS PO ONE (06:45)
[2018-02-16 06:47] LABS: ARTERIAL BLD GAS O2 SATURATION 18.4 % (90-98.9); ARTERIAL BLOOD GAS PO2 19.2 mmHg (80-100)
--- NOTE | 2018-02-16 07:44 | PDOC ---
*Physical Exam - Vital Signs Last Vital Signs Temp Pulse Resp BP Pulse Ox 98.7 F 64 22 H 139/88 100 02/16/18 00:03 02/16/18 01:30 02/16/18 00:03 02/16/18 00:03 02/16/18 01:30 ED Treatment Course - LABORATORY CBC & Chemistry Diagram: 02/16/18 02:55 02/16/18 02:55 - ADDITIONAL ORDERS Additional order review: Laboratory Results 02/16/18 02/16/18 02/16/18 02:55 02:55 02:55 PT with INR 13.80 H INR 1.17 H Puncture Site ABG pH ABG pCO2 at Pt Temp ABG pO2 at Pt Temp ABG HCO3 ABG O2 Sat (Measured) ABG O2 Content ABG Base Excess Twin Test O2 Delivery Device Oxygen Flow Rate Sodium 137 Potassium 4.1 Chloride 97 L Carbon Dioxide 30 Anion Gap 9 BUN 62 H Creatinine 2.3 H Creat Clearance w eGFR 28.96 Random Glucose 92 Lactic Acid 1.2 Calcium 8.1 L Magnesium 2.1 Total Bilirubin 0.5 AST 39 H ALT 28 Alkaline Phosphatase 80 Creatine Kinase 38 Troponin I 0.12 H B-Natriuretic Peptide 46528.8 H Total Protein 6.2 L Albumin 3.1 L 02/16/18 01:42 PT with INR INR Puncture Site Right brachial ABG pH 7.37 ABG pCO2 at Pt Temp 57.7 H D ABG pO2 at Pt Temp 19.2 L* ABG HCO3 32.6 H ABG O2 Sat (Measured) 18.4 L* ABG O2 Content 2.6 L* ABG Base Excess 6.6 H Twin Test Positive O2 Delivery Device Nasal o2 Oxygen Flow Rate 4l Sodium Potassium Chloride Carbon Dioxide Anion Gap BUN Creatinine Creat Clearance w eGFR Random Glucose Lactic Acid Calcium Magnesium Total Bilirubin AST ALT Alkaline Phosphatase Creatine Kinase Troponin I B-Natriuretic Peptide Total Protein Albumin 02/16/18 02:55 RBC 3.20 L MCV 96.4 H MCHC 33.4 RDW 16.6 H MPV 9.5 Neutrophils % 89.2 H Lymphocytes % 3.8 L Monocytes % 5.8 D Eosinophils % 0.9 D Basophils % 0.3 Medical Decision Making - Medical Decision Making 02/16/18 07:[address] Watkins. Patient 62M w/ pmhx of COPD (currently on 2- 4L NC at home), HTN, DM type II, CAD (s/p CABG 2010), PPM (2010) with likely CHF exacerbation. Initially on bipap, now stable. Pending signout to medicine team. 02/16/18 07:54 Patient ABG results noted, reassessed. Satting 97%, sitting upright alert without acute distress. Wet cough. Bilateral crackles. ABG drawn before resuscitation. Repeat ordered. Patient does not require ICU care. D/W Dr Anderson. Accepted to tele. *DC/Admit/Observation/Transfer Diagnosis at time of Disposition: CHF exacerbation - Discharge Dispostion Condition at time of disposition: Stable Decision to Admit order: Yes - Referrals - Patient Instructions - Post Discharge Activity
[2018-02-16] MEDS ORDERED: FUROSEMIDE 40 MG/4 ML INJECTABLE VIAL ONE (08:20)
[2018-02-16] MEDS ORDERED: guaiFENesin 200 MG/10 ML 10 ML UNIT-DOSE CUPS ONE (08:20)
[2018-02-16] MEDS ORDERED: ALBUTEROL SO4 2.5/IPRATROPIUM 0.5 INH SOL 3 ML VIAL.NEB. NEB ONE ×3 (09:25→20:17)
[2018-02-16] MEDS ORDERED: methylPREDNISolone NA SUCC 40 MG/1 ML VIAL ONE (09:25)
[2018-02-16] MEDS ORDERED: ALBUTEROL SO4 2.5/IPRATROPIUM 0.5 INH SOL 3 ML VIAL.NEB. NEB PRN (09:45)
[2018-02-16] MEDS ORDERED: LACTULOSE 20 GM/30 ML UDC (FOR ORAL USE ONLY) PO PRN (09:48)
[2018-02-16] MEDS ORDERED: ATORVASTATIN CA 20 MG TABLET (FP) PO ONE (09:51)
--- NOTE | 2018-02-16 09:56 | HP ---
Admitting History and Physical - Primary Care Physician PCP: josiah - Admission Chief Complaint: SOB History of Present Illness: Mr. Owen is a 62 y/o man with h/o COPD, chronic systolic CHF, HTN, HLP, O2 dependent ( 3 L ) , AICD, A fib, CAD, s/p CABG, MR, bio AVR, PVD, CKD 3, , who was recently admitted to [facility] acute COPD exacerbation , discharged on . he returns due to worsening SOB. He was seen by card and pulm last admisson, and was not fond to have CHF exacerbation. he was treated with Nebs and steroids , but he was not dc on steroids. his SOB continued to worsen after dc, accompanied with non productive cough and cp only when he coughs. he denies any fever or chills. he has orthopnia and sleeps on 4 pillows and this has not changed. he uses 3 L of O2 at home. denies sore throat, sick contact , or hemoptysis Card, Dr. Zafar. History Source: Patient Limitations to Obtaining History: No Limitations - Past Medical History Cardiovascular: Yes: AFIB (after CABG briefly; not on AC), CAD, CHF (systolic), HTN, Mitral Insufficiency, Other (bioprosthetic AVR, CABG, PVD, s/p AICD, MR) Pulmonary: Yes: Bronchitis, COPD, O2 Dependent (3 L), Pneumonia Gastrointestinal: Yes: Constipation Renal/: Yes: Renal Inusuff (satge 3) Heme/Onc: Yes: Anemia Endocrine: Yes: Diabetes Mellitus - Past Surgical History Past Surgical History: Yes: AICD, CABG - Smoking History Smoking history: Former smoker Have you smoked in the past 12 months: Yes Aproximately how many cigarettes per day: 24 If you are a former smoker, when did you quit?: 2 months ago - Alcohol/Substance Use Hx Alcohol Use: No History of Substance Use: reports: None, Cocaine - Social History Usual Living Arrangement: Yes: Other (with brother) ADL: Independent History of Recent Travel: No Home Medications - Allergies Allergies/Adverse Reactions: Allergies Allergy/AdvReac Type Severity Reaction Status Date / Time Fish Containing Products Allergy Verified 02/16/18 09:44 codeine AdvReac Intermediate Vomiting Verified 02/16/18 09:44 gabapentin AdvReac Intermediate dizzy Verified 02/16/18 09:44 - Home Medications Home Medications: Ambulatory Orders Aspirin [Aspirin EC] 81 mg PO DAILY 06/18/15 Clopidogrel Bisulfate [Clopidogrel] 75 mg PO DAILY 06/18/15 Zolpidem Tartrate [Ambien] 10 mg PO HS 06/18/15 Psyllium [Metamucil (Sugar-Free) -] 5.85 gm PO BID #1 bottle 06/02/17 Docusate Sodium [Colace -] 100 mg PO TID #90 capsule 09/22/17 Furosemide [Lasix -] 80 mg PO DAILY 7 Days #7 tablet 11/21/17 Cholecalciferol (Vitamin D3) [Vitamin D3] 2,000 unit PO DAILY #30 capsule Budesonide/Formeterol Fumarate [SYMBICORT 160/4.5mcg -] 1 puff IH DAILY inhaler 12/30/17 Cyclobenzaprine HCl 5 mg PO BID #28 tablet 12/30/17 Atorvastatin Ca 20 mg PO HS 01/11/18 Glipizide [Glucotrol -] 5 mg PO BID 01/11/18 Carvedilol [Coreg -] 25 mg PO BID #60 tablet 02/14/18 Lactulose (Oral Use) [Cephulac -] 20 gm PO BID PRN 02/16/18 Oxycodone HCl 10 mg PO QID PRN 02/16/18 Home Medications (free text): He uses insulin as needed at night if sugar > 200. does not recall dose or type. I am unable to reach his pharmacy Family Disease History - Family Disease History Family Disease History: Heart Disease: Father (etoh), Mother (, cva), Other: Brother (alive - Ramírez - hx etoh), Sister (five - alive - no medical problems), Son (two adults - no problems) Review of Systems - Review of Systems Constitutional: denies: Chills, Diaphoresis, Fever, Lethargy, Loss of Appetite, Night Sweats Eyes: denies: Blurred Vision, Double Vision, Eye Pain, Photophobia, Recent Change in Vision HENT: denies: Difficult Swallowing, Ear Discharge, Ear Pain, Epistaxis, Hearing Loss, Mouth Swelling Neck: denies: Decreased ROM, Lumps, Pain on Movement, Stiffness Cardiovascular: reports: Chest Pain (with cough only), Shortness of Breath. denies: Edema, Palpitations Respiratory: reports: Cough, Orthopnea (chronic), SOB, SOB on Exertion. denies : Exercise Intolerance, Hemoptysis, PND, Snoring, Wheezing Gastrointestinal: reports: Constipation. denies: Abdominal Pain, Bloating, Diarrhea, Dysphagia, Indigestion, Melena, Nausea, Rectal Bleeding, Vomiting Genitourinary: denies: Burning, Discharge, Dysuria, Flank Pain, Frequency, Incontinence Musculoskeletal: reports: Back Pain (chronic), Extremity Pain (legs. chronci). denies: Crepitus, Decreased ROM, Joint Pain, Joint Swelling, Muscle Pain, Muscle Cramps Integumentary: denies: Bruising, Eczema, Erythema Neurological: denies: Change in LOC, Change in Speech, Confusion, Dizziness, Incoordination, Numbness Endocrine: denies: Excessive Sweating, Flushing, Increased Hunger Physical Examination Vital Signs: Vital Signs Temperature 98.3 F 02/16/18 09:35 Pulse Rate 85 02/16/18 09:35 Respiratory Rate 22 H 02/16/18 09:35 Blood Pressure 138/91 02/16/18 09:35 O2 Sat by Pulse Oximetry (%) 100 02/16/18 09:35 Findings/Remarks: NAD, tachypnic, abd breathing . able to talk in full sentences. MMM, no facial droop, EOMI, round equal pupils, reactive to light. oropharynx with no erythema , no edema , no exudate. CV: RRR, no MRG , difficult somewhat due to course breath soudns. Lungs: course breath sounds, decreased breath sounds at bases . prolonged exp phase. Abd: obese, NT, ND , NL BS Ext : 1+ edema , no erythema , calluses on both soles. Neuro: EOMI, round equal pupils, reactive to light , no facial droop. Labs: CBC, BMP 02/16/18 02:55 02/16/18 02:55 Imaging - Results Chest X-ray: Report Reviewed, Image Reviewed EKG: Image Reviewed (paced rhythm.) Assessment/Plan Mr. Owen is a 62 y/o man with h/o COPD, chronic systolic CHF, HTN, HLP, O2 dependent ( 3 L ) , AICD, A fib, CAD, s/p CABG, MR, bio AVR, PVD, CKD 3, , who was recently admitted to [facility], acute COPD exacerbation , discharged on . he returns due to worsening SOB. 1- Acute hypoxic resp failure, due to acute COPD exacerbation. was not dc on steroids 2 days ago. He looks euvolemic, no signs of CHF exacerbation. cxray rotated but no infiltrate seen and no clinical signs of PNA. in ER, he was given 40 of IV lasix. - will start steroids. solumedrol 40 BID - start NEbs QID PRN and standing - resume home symbicort. - cont home po lasix . - BIPAP as needed and HS 2- H/o Systolic CHF: compensated. BNP elevated but at base line - cont home coreg and lasix 80 daily - not on ARB or ACEI due to hyperkalemia in past - f/u with card as out pt . - last echo 06/20 unable to view report. repeat as out pt 3- h/o CAD: no active CP. ( occasional with cough ) . trop leak due to demand event with resp failure - tele -cont ASA and plavix - cont BB , and statin 4- h/o DM : ssi for now. - hold home glipizide . - unable to confirm type of insulin he uses PRN ( pharmacy not reachable) 5- CKD. Cr at base line 6- Dispo: HLOC Visit type - Emergency Visit Emergency Visit: Yes Care time: The patient presented to the Emergency Department on the above date and was hospitalized for further evaluation of their emergent condition. - New Patient This patient is new to me today: Yes Date on this admission: 02/16/18 - Critical Care Critical Care patient: No
[2018-02-16] MEDS ORDERED: BUDESONIDE/FORMETEROL FUMARATE 160/4.5 mcg INHALER IH SCH (10:00)
[2018-02-16] MEDS ORDERED: CYCLOBENZAPRINE HCL 5 MG TABLET PO SCH (10:00)
[2018-02-16] MEDS ORDERED: PT OWN MED DRAWER 7, Y5N ONE (10:58)
[2018-02-16] MEDS: DOCUSATE SODIUM 100 MG CAPSULE (FP) PO SCH ×2 (11:48→23:11)
[2018-02-16] MEDS: CARVEDILOL 25 MG TABLET (FP) PO SCH ×2 (11:48→23:09)
[2018-02-16] MEDS: PSYLLIUM 5.85 GM PACKET PO SCH ×2 (11:48→23:11)
[2018-02-16] MEDS: CLOPIDOGREL BISULFATE 75 MG TABLET (FP) PO SCH (11:48)
[2018-02-16] MEDS: ASPIRIN COATED 81 MG TABLET.EC PO SCH (11:48)
[2018-02-16] MEDS: ALBUTEROL SO4 2.5/IPRATROPIUM 0.5 INH SOL 3 ML VIAL.NEB. NEB SCH ×2 (11:55→20:26)
[2018-02-16] MEDS ORDERED: oxyCODONE HCL 5 MG TABLET ONE ×2 (11:59→18:04)
[2018-02-16] MEDS: oxyCODONE HCL 5 MG TABLET PO PRN ×2 (12:07→18:12)
[2018-02-16] MEDS: INSULIN SLIDING SCALE (NOVOLOG) 1 VIAL SQ SCH ×3 (12:07→20:15)
--- NOTE | 2018-02-16 12:18 | CON.PULM ---
Consult Consult Specialty:: PULM/CCM Referred by:: Hospitalist Reason for Consultation:: SOB - History of Present Illness Chief Complaint: SOB History of Present Illness: 62 M, well known to our service. advanced COPD on 3L NC at home, chronic bronchitis, HTN, DM type II, CAD (s/p CABG 2010), and PPM (2010). Discharged 02/14/2018 after being treated for an AE of COPD. Apparently was not given steroids on discharge for home use. Apparently he developed acute onset of SOB this AM after having a prolonged bout of cough. He does have chronic bronchitis but the cough has been worse (that's what prompted his his last admission). CT imaging recently: LLL Pleural thickening and small effusion / non-specific hyperplastic lymph nodes that have not radiographically changed since 2016. No fever or chills. No hemoptysis. No travel history or sick contacts. CXR: No evidence of CHF or new acute process - History Source History Provided By: Patient Limitations to Obtaining History: No Limitations - Past Medical History Cardio/Vascular: Yes: AFIB (after CABG briefly; not on AC), CAD, CHF (systolic) , HTN, Mitral Insufficiency, Other (bioprosthetic AVR, CABG, PVD, s/p AICD, MR) Pulmonary: Yes: Bronchitis, COPD, O2 Dependent (3 L), Pneumonia Gastrointestinal: Yes: Constipation Renal/: Yes: Renal Inusuff (satge 3) Endocrine: Yes: Diabetes Mellitus - Past Surgical History Past Surgical History: Yes: AICD, CABG - Alcohol/Substance Use Hx Alcohol Use: No History of Substance Use: reports: None, Cocaine - Smoking History Smoking history: Former smoker Have you smoked in the past 12 months: Yes Aproximately how many cigarettes per day: 24 If you are a former smoker, when did you quit?: 2 months ago - Social History Usual Living Arrangement: With Spouse ADL: Independent History of Recent Travel: No Home Medications - Allergies Allergies/Adverse Reactions: Allergies Allergy/AdvReac Type Severity Reaction Status Date / Time Fish Containing Products Allergy Verified 02/16/18 09:44 codeine AdvReac Intermediate Vomiting Verified 02/16/18 09:44 gabapentin AdvReac Intermediate dizzy Verified 02/16/18 09:44 - Home Medications Home Medications: Ambulatory Orders Aspirin [Aspirin EC] 81 mg PO DAILY 06/18/15 Clopidogrel Bisulfate [Clopidogrel] 75 mg PO DAILY 06/18/15 Zolpidem Tartrate [Ambien] 10 mg PO HS 06/18/15 Psyllium [Metamucil (Sugar-Free) -] 5.85 gm PO BID #1 bottle 06/02/17 Docusate Sodium [Colace -] 100 mg PO TID #90 capsule 09/22/17 Furosemide [Lasix -] 80 mg PO DAILY 7 Days #7 tablet 11/21/17 Cholecalciferol (Vitamin D3) [Vitamin D3] 2,000 unit PO DAILY #30 capsule Budesonide/Formeterol Fumarate [SYMBICORT 160/4.5mcg -] 1 puff IH DAILY inhaler 12/30/17 Cyclobenzaprine HCl 5 mg PO BID #28 tablet 12/30/17 Atorvastatin Ca 20 mg PO HS 01/11/18 Glipizide [Glucotrol -] 5 mg PO BID 01/11/18 Carvedilol [Coreg -] 25 mg PO BID #60 tablet 02/14/18 Lactulose (Oral Use) [Cephulac -] 20 gm PO BID PRN 02/16/18 Oxycodone HCl 10 mg PO QID PRN 02/16/18 Family Disease History - Family Disease History Family Disease History: Heart Disease: Father (etoh), Mother (, cva), Other: Brother (alive - Ramírez - hx etoh), Sister (five - alive - no medical problems), Son (two adults - no problems) Review of Systems - Review of Systems Constitutional: reports: Malaise. denies: Chills, Fever, Night Sweats, Unintentional Wgt. Loss Eyes: reports: No Symptoms HENT: reports: No Symptoms Neck: reports: No Symptoms Cardiovascular: reports: Shortness of Breath. denies: Chest Pain, Edema, Palpitations Respiratory: reports: Cough, Exercise Intolerance, Orthopnea, SOB, SOB on Exertion, Wheezing. denies: Hemoptysis, Snoring Gastrointestinal: reports: No Symptoms Genitourinary: reports: No Symptoms Breasts: reports: No Symptoms Reported Musculoskeletal: reports: No Symptoms Integumentary: reports: No Symptoms Neurological: reports: No Symptoms Endocrine: reports: No Symptoms Hematology/Lymphatic: reports: No Symptoms Psychiatric: reports: No Symptoms Physical Exam Vital Sings: Vital Signs Temperature 98.6 F 02/16/18 12:08 Pulse Rate 75 02/16/18 12:08 Respiratory Rate 16 02/16/18 12:08 Blood Pressure 181/79 H 02/16/18 12:08 O2 Sat by Pulse Oximetry (%) 98 02/16/18 12:08 Constitutional: Yes: Mild Distress Eyes: Yes: Conjunctiva Clear, EOM Intact HENT: Yes: Atraumatic, Normocephalic Neck: Yes: Supple, Trachea Midline Cardiovascular: Yes: Pulse Irregular, Murmur Respiratory: Yes: Cough, Diminished, On Nasal O2, Poor Air Entry, Rhonchi, SOB, Tachypnea, Wheezes. No: Accessory Muscle Use, Rales, Stridor ...Inspection: Yes: WNL ...Clubbing: No Gastrointestinal: Yes: Normal Bowel Sounds, Soft Musculoskeletal: Yes: WNL Extremities: Yes: WNL Edema: No Peripheral Pulses WNL: Yes Integumentary: Yes: WNL Neurological: Yes: WNL, Alert, Oriented ...Motor Strength: WNL Psychiatric: Yes: WNL, Alert, Oriented Labs: CBC, BMP 02/16/18 02:55 02/16/18 02:55 ABG Results ABG pH 7.37 (7.35-7.45) 02/16/18 01:42 ABG pCO2 at Pt Temp 57.7 mmHg (35-45) H D 02/16/18 01:42 ABG pO2 at Pt Temp 19.2 mmHg (80-100) L* 02/16/18 01:42 ABG HCO3 32.6 meq/L (22-26) H 02/16/18 01:42 ABG O2 Sat (Measured) 18.4 % (90-98.9) L* 02/16/18 01:42 ABG O2 Content 2.6 % vol (15-22) L* 02/16/18 01:42 ABG Base Excess 6.6 meq/l (-2-2) H 02/16/18 01:42 Imaging - Results Chest X-ray: Report Reviewed, Image Reviewed Problem List - Problems (1) Bronchitis Code(s): J40 - BRONCHITIS, NOT SPECIFIED ACUTE OR CHRONIC (2) COPD (chronic obstructive pulmonary disease) Code(s): J44.9 - CHRONIC OBSTRUCTIVE PULMONARY DISEASE, UNSPECIFIED (3) Afib Code(s): I48.91 - UNSPECIFIED ATRIAL FIBRILLATION Qualifiers: Atrial fibrillation type: chronic Qualified Code(s): I48.2 - Chronic atrial fibrillation (4) Atrial tachycardia Code(s): I47.1 - SUPRAVENTRICULAR TACHYCARDIA (5) COPD exacerbation Code(s): J44.1 - CHRONIC OBSTRUCTIVE PULMONARY DISEASE W (ACUTE) EXACERBATION (6) Chronic kidney disease (CKD) Code(s): N18.9 - CHRONIC KIDNEY DISEASE, UNSPECIFIED Qualifiers: Chronic kidney disease stage: stage 3 (moderate) Qualified Code(s): N18.3 - Chronic kidney disease, stage 3 (moderate) (7) Cough Code(s): R05 - COUGH (8) Shortness of breath Code(s): R06.02 - SHORTNESS OF BREATH (9) Tobacco abuse Code(s): Z72.0 - TOBACCO USE (10) CAD (coronary artery disease) Code(s): I25.10 - ATHSCL HEART DISEASE OF [place] CORONARY ARTERY W/O ANG PCTRS Qualifiers: [place] vs. transplanted heart: [place] heart Associated angina: without angina (11) CHF (congestive heart failure) Code(s): I50.9 - HEART FAILURE, UNSPECIFIED Qualifiers: Heart failure type: systolic Heart failure chronicity: acute on chronic Qualified Code(s): I50.23 - Acute on chronic systolic (congestive) heart failure (12) COPD (chronic obstructive pulmonary disease) Code(s): J44.9 - CHRONIC OBSTRUCTIVE PULMONARY DISEASE, UNSPECIFIED Qualifiers: COPD type: COPD with acute exacerbation Qualified Code(s): J44.1 - Chronic obstructive pulmonary disease with (acute) exacerbation (13) Chronic renal insufficiency, stage III (moderate) Code(s): N18.3 - CHRONIC KIDNEY DISEASE, STAGE 3 (MODERATE) (14) Coronary artery disease Code(s): I25.10 - ATHSCL HEART DISEASE OF [place] CORONARY ARTERY W/O ANG PCTRS Qualifiers: Coronary Disease-Associated Artery/Lesion type: bypass graft, other Associated angina: with other forms of angina Qualified Code(s): I25.798 - Atherosclerosis of other coronary artery bypass graft(s) with other forms of angina pectoris (15) Diabetes Code(s): E11.9 - TYPE 2 DIABETES MELLITUS WITHOUT COMPLICATIONS Qualifiers: Diabetes mellitus type: type 2 Diabetes mellitus long-term insulin use: with modern dancer use Diabetes mellitus complication status: with kidney complications Diabetes mellitus complication detail: with chronic kidney disease Chronic kidney disease stage: stage 3 (moderate) Qualified Code(s): E11.22 - Type 2 diabetes mellitus with diabetic chronic kidney disease; N18.3 - Chronic kidney disease, stage 3 (moderate); Z79.4 - bleacher lard (current) use of insulin (16) HTN (hypertension) Code(s): I10 - ESSENTIAL (PRIMARY) HYPERTENSION Qualifiers: Hypertension type: essential hypertension Qualified Code(s): I10 - Essential (primary) hypertension (17) Peripheral vascular disease Code(s): I73.9 - PERIPHERAL VASCULAR DISEASE, UNSPECIFIED (18) Pleural effusion Code(s): J90 - PLEURAL EFFUSION, NOT ELSEWHERE CLASSIFIED (19) Pulmonary hypertension Code(s): I27.2 - OTHER SECONDARY PULMONARY HYPERTENSION * DO NOT USE * (20) S/P CABG x 3 Code(s): Z95.1 - PRESENCE OF AORTOCORONARY BYPASS GRAFT Assessment/Plan Agree with IV Medrol IVP Duoneb Standing and PRN Symbicort BID On discharge should place on [facility] No smoking Monitor off ABX: Do not suspect bacterial infection Do not suspect Acute CHF, elevated BNP due to severe lung/cardiac disease Will need Prednisone taper on discharge Will follow Thank you. Dr Garner
[2018-02-16] MEDS: HEPARIN NA (PORCINE) 5,000 UNITS/ML 1ML VIAL SQ SCH ×2 (14:00→23:09)
[2018-02-16] MEDS ORDERED: DOCUSATE SODIUM 100 MG CAPSULE (FP) PO SCH (14:00)
--- NOTE | 2018-02-16 16:24 | EKG ---
Test Reason : Blood Pressure : / mmHG Vent. Rate : 072 BPM Atrial Rate : 468 BPM P-R Int : 000 ms QRS Dur : 190 ms QT Int : 502 ms P-R-T Axes : 000 -82 088 degrees QTc Int : 549 ms Ventricular-paced rhythm WITH FREQUENT and consecutive PREMATURE VENTRICULAR COMPLEXES underlying rhythm atrial flutter ABNORMAL ECG WHEN COMPARED WITH ECG OF 12-FEB-2018 20:18, PREMATURE VENTRICULAR COMPLEXES ARE NOW PRESENT VENT. RATE HAS INCREASED BY 10 BPM Confirmed by MD Jaqueline, Jeffery ([id number]) on 02/16/2018 4:24:37 PM Referred By: Confirmed By:Jeffery Parsons MD
[2018-02-16] MEDS ORDERED: INSULIN (NOVOLOG) ASPART 100 UNITS/ML 10ML VIAL ONE ×2 (18:16→20:18)
[2018-02-16] MEDS ORDERED: HEPARIN NA (PORCINE) 5,000 UNITS/ML 1ML VIAL ONE (18:18)
[2018-02-16] MEDS: ATORVASTATIN CA 20 MG TABLET (FP) PO SCH (23:09)
[2018-02-16] MEDS: CYCLOBENZAPRINE HCL 10 MG TABLET (FP) PO SCH (23:09)
[2018-02-16] MEDS: methylPREDNISolone NA SUCC 40 MG/1 ML VIAL IVPUSH SCH (23:11)
[2018-02-16] MEDS: BUDESONIDE/FORMETEROL FUMARATE 160/4.5 mcg INHALER IH SCH (23:12)
[2018-02-17] MEDS: HEPARIN NA (PORCINE) 5,000 UNITS/ML 1ML VIAL SQ SCH ×3 (06:12→21:22)
[2018-02-17] MEDS: ACETAMINOPHEN 325 MG TABLET (FP) PO PRN ×2 (06:14→13:21)
[2018-02-17] MEDS: INSULIN SLIDING SCALE (NOVOLOG) 1 VIAL SQ SCH ×3 (06:14→17:16)
[2018-02-17] MEDS: oxyCODONE HCL 5 MG TABLET PO PRN ×3 (06:15→21:21)
[2018-02-17 06:30] LABS: BASO % 0.1 % (0-2.0); HEMATOCRIT 30.2 % (35.4-49); LYMPH % 5.9 % (8-40); MCH 31.6 pg (25.7-33.7); MCHC 33.1 g/dl (32.0-35.9); MEAN CELL VOLUME 95.2 fl (80-96); MONO % 2.5 % (3.8-10.2); NEUT % 91.5 % (42.8-82.8); PLATELET COUNT 128 K/MM3 (134-434); RBC 3.17 M/mm3 (4.00-5.60); RDW 16.5 % (11.9-15.9); WHITE BLOOD COUNT 4.8 K/mm3 (4.0-10.0)
[2018-02-17] MEDS: ALBUTEROL SO4 2.5/IPRATROPIUM 0.5 INH SOL 3 ML VIAL.NEB. NEB SCH ×5 (08:27→20:40)
[2018-02-17 08:55] LABS: ANION GAP 11 MMOL/L (8-16); BLOOD UREA NITROGEN 59 mg/dL (7-18); CALCIUM 7.9 mg/dL (8.5-10.1); CHLORIDE 96 mmol/L (98-107); CO2 29 mmol/L (21-32); GLUCOSE,RANDOM 176 mg/dL (74-106); MAGNESIUM 2.3 mg/dL (1.8-2.4); PHOSPHOROUS 3.8 mg/dL (2.5-4.9); POTASSIUM 4.3 mmol/L (3.5-5.1); SODIUM 136 mmol/L (136-145)
[2018-02-17] MEDS ORDERED: PT OWN MED DRAWER 7, Y5N ONE ×4 (09:56→22:05)
[2018-02-17] MEDS: CYCLOBENZAPRINE HCL 10 MG TABLET (FP) PO SCH ×2 (10:03→21:20)
[2018-02-17] MEDS: ASPIRIN COATED 81 MG TABLET.EC PO SCH (10:03)
[2018-02-17] MEDS: FUROSEMIDE 40 MG TABLET (FP) PO SCH (10:03)
[2018-02-17] MEDS: CARVEDILOL 25 MG TABLET (FP) PO SCH ×2 (10:03→21:20)
[2018-02-17] MEDS: DOCUSATE SODIUM 100 MG CAPSULE (FP) PO SCH ×2 (10:03→21:20)
[2018-02-17] MEDS: CLOPIDOGREL BISULFATE 75 MG TABLET (FP) PO SCH (10:03)
[2018-02-17] MEDS: methylPREDNISolone NA SUCC 40 MG/1 ML VIAL IVPUSH SCH ×2 (10:04→21:20)
[2018-02-17] MEDS: PSYLLIUM 5.85 GM PACKET PO SCH ×2 (10:04→21:22)
--- NOTE | 2018-02-17 11:10 | PN ---
Progress Note, Physician Chief Complaint: Mr Owen says he is feeling better but is not at baseline. Still with sob. No cp or n/v. - Current Medication List Current Medications: Active Medications Acetaminophen (Tylenol -) 650 mg PO QID PRN PRN Reason: PAIN LEVEL 1-5 Last Admin: 02/17/18 06:14 Dose: 650 mg Albuterol/Ipratropium (Duoneb -) 1 amp NEB RQID [facility] Last Admin: 02/17/18 08:28 Dose: Not Given Albuterol/Ipratropium (Duoneb -) 1 amp NEB Q6H PRN PRN Reason: SHORTNESS OF BREATH Last Admin: 02/16/18 09:57 Dose: 1 amp Aspirin (Ecotrin -) 81 mg PO DAILY [facility] Last Admin: 02/17/18 10:03 Dose: 81 mg Atorvastatin Calcium (Lipitor -) 20 mg PO HS [facility] Last Admin: 02/16/18 23:09 Dose: 20 mg Budesonide/Formoterol Fumarate (Symbicort 160/4.5mcg -) 1 puff IH BID [facility] Last Admin: 02/16/18 23:12 Dose: Not Given Carvedilol (Coreg -) 25 mg PO BID [facility] Last Admin: 02/17/18 10:03 Dose: 25 mg Clopidogrel Bisulfate (Plavix -) 75 mg PO DAILY [facility] Last Admin: 02/17/18 10:03 Dose: 75 mg Cyclobenzaprine HCl (Flexeril -) 5 mg PO BID [facility] Last Admin: 02/17/18 10:03 Dose: 5 mg Docusate Sodium (Colace -) 100 mg PO BID [facility] Last Admin: 02/17/18 10:03 Dose: 100 mg Furosemide (Lasix -) 80 mg PO DAILY [facility] Last Admin: 02/17/18 10:03 Dose: 80 mg Heparin Sodium (Porcine) (Heparin -) 5,000 unit SQ TID [facility] Last Admin: 02/17/18 06:12 Dose: 5,000 unit Insulin Aspart (Novolog Vial Sliding Scale -) 1 vial SQ TIDAC [facility]; Protocol Last Admin: 02/17/18 06:14 Dose: 2 units Lactulose (Cephulac (Oral Use)) 20 gm PO BID PRN PRN Reason: CONSTIPATION Methylprednisolone Sodium Succinate (Solu-Medrol -) 40 mg IVPUSH BID [facility] Last Admin: 02/17/18 10:04 Dose: 40 mg Oxycodone HCl (Roxicodone -) 10 mg PO Q6H PRN PRN Reason: PAIN LEVEL 6-10 Last Admin: 02/17/18 06:15 Dose: 10 mg Psyllium Hydrophilic Mucilloid (Metamucil (Sugar-Free) -) 5.85 gm PO BID [facility] Last Admin: 02/17/18 10:04 Dose: 5.85 gm - Objective Vital Signs: Vital Signs Temperature 36.4 C 02/17/18 06:00 Pulse Rate 93 H 02/17/18 06:00 Respiratory Rate 20 02/17/18 06:00 Blood Pressure 130/95 02/17/18 06:00 O2 Sat by Pulse Oximetry (%) 94 L 02/17/18 10:00 Constitutional: Yes: Well Nourished, No Distress, Calm Cardiovascular: Yes: Regular Rate and Rhythm. No: Gallop, Murmur, Rub Respiratory: Yes: Regular, On Nasal O2, Rhonchi (slight). No: CTA Bilaterally, Rales, Wheezes Gastrointestinal: Yes: Normal Bowel Sounds, Soft. No: Distention, Tenderness Extremities: Yes: WNL Edema: No Labs: CBC, BMP 02/17/18 06:00 02/17/18 06:00 INR, PTT INR 1.17 (0.83-1.09) H 02/16/18 02:55 Problem List - Problems (1) COPD (chronic obstructive pulmonary disease) Assessment/Plan: -continue solumedrol -continue symbicort -continue duonebs -plan for possible discharge tomorrow on prednisone taper Code(s): J44.9 - CHRONIC OBSTRUCTIVE PULMONARY DISEASE, UNSPECIFIED Qualifiers: COPD type: COPD with acute exacerbation Qualified Code(s): J44.1 - Chronic obstructive pulmonary disease with (acute) exacerbation (2) CHF (congestive heart failure) Assessment/Plan: -continue lasix and coreg -no ACEI/ARB secondary to hyperkalemia -controlled Code(s): I50.9 - HEART FAILURE, UNSPECIFIED Qualifiers: Heart failure type: systolic Heart failure chronicity: chronic Qualified Code(s): I50.22 - Chronic systolic (congestive) heart failure (3) Chronic renal insufficiency, stage III (moderate) Assessment/Plan: -stable Code(s): N18.3 - CHRONIC KIDNEY DISEASE, STAGE 3 (MODERATE) (4) Chronic respiratory failure Assessment/Plan: -continue oxygen support Code(s): J96.10 - CHRONIC RESPIRATORY FAILURE, UNSP W HYPOXIA OR HYPERCAPNIA (5) Afib Assessment/Plan: -controlled -continue coreg and eliquis Code(s): I48.91 - UNSPECIFIED ATRIAL FIBRILLATION Qualifiers: Atrial fibrillation type: chronic Qualified Code(s): I48.2 - Chronic atrial fibrillation (6) Coronary artery disease Assessment/Plan: -quiescent -continue current regimen Code(s): I25.10 - ATHSCL HEART DISEASE OF [place] CORONARY ARTERY W/O ANG PCTRS Qualifiers: Coronary Disease-Associated Artery/Lesion type: bypass graft, other Associated angina: with other forms of angina Qualified Code(s): I25.798 - Atherosclerosis of other coronary artery bypass graft(s) with other forms of angina pectoris (7) Diabetes Assessment/Plan: -elevated with steroids but not severely -continue SSI Code(s): E11.9 - TYPE 2 DIABETES MELLITUS WITHOUT COMPLICATIONS Qualifiers: Diabetes mellitus type: type 2 Diabetes mellitus skilled nursing insulin use: with skilled nursing use Diabetes mellitus complication status: with kidney complications Diabetes mellitus complication detail: with chronic kidney disease Chronic kidney disease stage: stage 3 (moderate) Qualified Code(s): E11.22 - Type 2 diabetes mellitus with diabetic chronic kidney disease; N18.3 - Chronic kidney disease, stage 3 (moderate); Z79.4 - medical terminologist (current) use of insulin (8) HTN (hypertension) Assessment/Plan: -controlled Code(s): I10 - ESSENTIAL (PRIMARY) HYPERTENSION Qualifiers: Hypertension type: essential hypertension Qualified Code(s): I10 - Essential (primary) hypertension (9) Pulmonary hypertension Assessment/Plan: -continue current management Code(s): I27.2 - OTHER SECONDARY PULMONARY HYPERTENSION * DO NOT USE *
[2018-02-17 11:16] LABS: PLATELET ESTIMATE DECREASED
[2018-02-17] MEDS ORDERED: INSULIN SLIDING SCALE (NOVOLOG) 1 VIAL SQ ONE ×2 (12:12→18:53)
[2018-02-17 13:02] LABS: ANISOCYTOSIS 1+; MACROCYTOSIS 1+; OVALOCYTE 1+
--- NOTE | 2018-02-17 13:19 | PN ---
Progress Note, Physician History of Present Illness: PULMONARY ALERT,FEELING BETTER,LESS DYSPNEIC - Current Medication List Current Medications: Active Medications Acetaminophen (Tylenol -) 650 mg PO QID PRN PRN Reason: PAIN LEVEL 1-5 Last Admin: 02/17/18 06:14 Dose: 650 mg Albuterol/Ipratropium (Duoneb -) 1 amp NEB RQID [facility] Last Admin: 02/17/18 11:48 Dose: 1 amp Albuterol/Ipratropium (Duoneb -) 1 amp NEB Q6H PRN PRN Reason: SHORTNESS OF BREATH Last Admin: 02/16/18 09:57 Dose: 1 amp Aspirin (Ecotrin -) 81 mg PO DAILY [facility] Last Admin: 02/17/18 10:03 Dose: 81 mg Atorvastatin Calcium (Lipitor -) 20 mg PO HS [facility] Last Admin: 02/16/18 23:09 Dose: 20 mg Budesonide/Formoterol Fumarate (Symbicort 160/4.5mcg -) 1 puff IH BID [facility] Last Admin: 02/16/18 23:12 Dose: Not Given Carvedilol (Coreg -) 25 mg PO BID [facility] Last Admin: 02/17/18 10:03 Dose: 25 mg Clopidogrel Bisulfate (Plavix -) 75 mg PO DAILY [facility] Last Admin: 02/17/18 10:03 Dose: 75 mg Cyclobenzaprine HCl (Flexeril -) 5 mg PO BID [facility] Last Admin: 02/17/18 10:03 Dose: 5 mg Docusate Sodium (Colace -) 100 mg PO BID [facility] Last Admin: 02/17/18 10:03 Dose: 100 mg Furosemide (Lasix -) 80 mg PO DAILY [facility] Last Admin: 02/17/18 10:03 Dose: 80 mg Heparin Sodium (Porcine) (Heparin -) 5,000 unit SQ TID [facility] Last Admin: 02/17/18 06:12 Dose: 5,000 unit Insulin Aspart (Novolog Vial Sliding Scale -) 1 vial SQ TIDAC [facility]; Protocol Last Admin: 02/17/18 12:22 Dose: 8 units Lactulose (Cephulac (Oral Use)) 20 gm PO BID PRN PRN Reason: CONSTIPATION Methylprednisolone Sodium Succinate (Solu-Medrol -) 40 mg IVPUSH BID [facility] Last Admin: 02/17/18 10:04 Dose: 40 mg Oxycodone HCl (Roxicodone -) 10 mg PO Q6H PRN PRN Reason: PAIN LEVEL 6-10 Last Admin: 02/17/18 06:15 Dose: 10 mg Psyllium Hydrophilic Mucilloid (Metamucil (Sugar-Free) -) 5.85 gm PO BID [facility] Last Admin: 02/17/18 10:04 Dose: 5.85 gm - Objective Vital Signs: Vital Signs Temperature 97.6 F 02/17/18 06:00 Pulse Rate 93 H 02/17/18 06:00 Respiratory Rate 20 02/17/18 06:00 Blood Pressure 130/95 02/17/18 06:00 O2 Sat by Pulse Oximetry (%) 94 L 02/17/18 10:00 Constitutional: Yes: Well Nourished, Calm Eyes: Yes: WNL HENT: Yes: WNL Neck: Yes: WNL Cardiovascular: Yes: Pulse Irregular, S1, S2 Respiratory: Yes: Rales (RUFINA CRACKLES), Rhonchi (FEW SCATTERED RHONCHI) Gastrointestinal: Yes: Normal Bowel Sounds, Soft Extremities: Yes: WNL Edema: No Labs: CBC, BMP 02/17/18 06:00 02/17/18 06:00 INR, PTT INR 1.17 (0.83-1.09) H 02/16/18 02:55 Assessment/Plan roblem List - Problems (1) Bronchitis Code(s): J40 - BRONCHITIS, NOT SPECIFIED ACUTE OR CHRONIC (2) COPD (chronic obstructive pulmonary disease) Code(s): J44.9 - CHRONIC OBSTRUCTIVE PULMONARY DISEASE, UNSPECIFIED (3) Afib Code(s): I48.91 - UNSPECIFIED ATRIAL FIBRILLATION Qualifiers: Atrial fibrillation type: chronic Qualified Code(s): I48.2 - Chronic atrial fibrillation (4) Atrial tachycardia Code(s): I47.1 - SUPRAVENTRICULAR TACHYCARDIA (5) COPD exacerbation Code(s): J44.1 - CHRONIC OBSTRUCTIVE PULMONARY DISEASE W (ACUTE) EXACERBATION (6) Chronic kidney disease (CKD) Code(s): N18.9 - CHRONIC KIDNEY DISEASE, UNSPECIFIED Qualifiers: Chronic kidney disease stage: stage 3 (moderate) Qualified Code(s): N18.3 - Chronic kidney disease, stage 3 (moderate) (7) Cough Code(s): R05 - COUGH (8) Shortness of breath Code(s): R06.02 - SHORTNESS OF BREATH (9) Tobacco abuse Code(s): Z72.0 - TOBACCO USE (10) CAD (coronary artery disease) Code(s): I25.10 - ATHSCL HEART DISEASE OF [place] CORONARY ARTERY W/O ANG PCTRS Qualifiers: [place] vs. transplanted heart: [place] heart Associated angina: without angina (11) CHF (congestive heart failure) Code(s): I50.9 - HEART FAILURE, UNSPECIFIED Qualifiers: Heart failure type: systolic Heart failure chronicity: acute on chronic Qualified Code(s): I50.23 - Acute on chronic systolic (congestive) heart failure (12) COPD (chronic obstructive pulmonary disease) Code(s): J44.9 - CHRONIC OBSTRUCTIVE PULMONARY DISEASE, UNSPECIFIED Qualifiers: COPD type: COPD with acute exacerbation Qualified Code(s): J44.1 - Chronic obstructive pulmonary disease with (acute) exacerbation (13) Chronic renal insufficiency, stage III (moderate) Code(s): N18.3 - CHRONIC KIDNEY DISEASE, STAGE 3 (MODERATE) (14) Coronary artery disease Code(s): I25.10 - ATHSCL HEART DISEASE OF [place] CORONARY ARTERY W/O ANG PCTRS Qualifiers: Coronary Disease-Associated Artery/Lesion type: bypass graft, other Associated angina: with other forms of angina Qualified Code(s): I25.798 - Atherosclerosis of other coronary artery bypass graft(s) with other forms of angina pectoris (15) Diabetes Code(s): E11.9 - TYPE 2 DIABETES MELLITUS WITHOUT COMPLICATIONS Qualifiers: Diabetes mellitus type: type 2 Diabetes mellitus intermediate manager insulin use: with nursing home use Diabetes mellitus complication status: with kidney complications Diabetes mellitus complication detail: with chronic kidney disease Chronic kidney disease stage: stage 3 (moderate) Qualified Code(s): E11.22 - Type 2 diabetes mellitus with diabetic chronic kidney disease; N18.3 - Chronic kidney disease, stage 3 (moderate); Z79.4 - intermediate (current) use of insulin (16) HTN (hypertension) Code(s): I10 - ESSENTIAL (PRIMARY) HYPERTENSION Qualifiers: Hypertension type: essential hypertension Qualified Code(s): I10 - Essential (primary) hypertension (17) Peripheral vascular disease Code(s): I73.9 - PERIPHERAL VASCULAR DISEASE, UNSPECIFIED (18) Pleural effusion Code(s): J90 - PLEURAL EFFUSION, NOT ELSEWHERE CLASSIFIED (19) Pulmonary hypertension Code(s): I27.2 - OTHER SECONDARY PULMONARY HYPERTENSION * DO NOT USE * (20) S/P CABG x 3 Code(s): Z95.1 - PRESENCE OF AORTOCORONARY BYPASS GRAFT Assessment/Plan IV Medrol same dose Duoneb Standing and PRN Symbicort BID On discharge should place on [place] No smoking Prednisone taper on discharge DR BATISTA
[2018-02-17] MEDS: BUDESONIDE/FORMETEROL FUMARATE 160/4.5 mcg INHALER IH SCH ×2 (15:28→22:06)
[2018-02-17] MEDS: ATORVASTATIN CA 20 MG TABLET (FP) PO SCH (21:20)
[2018-02-18] MEDS: oxyCODONE HCL 5 MG TABLET PO PRN ×3 (04:57→17:30)
[2018-02-18] MEDS: HEPARIN NA (PORCINE) 5,000 UNITS/ML 1ML VIAL SQ SCH ×3 (05:48→22:03)
[2018-02-18] MEDS: INSULIN SLIDING SCALE (NOVOLOG) 1 VIAL SQ SCH ×3 (06:15→17:06)
[2018-02-18 07:05] LABS: BASO % 0.1 % (0-2.0); HEMATOCRIT 30.4 % (35.4-49); LYMPH % 4.2 % (8-40); MCH 31.4 pg (25.7-33.7); MEAN CELL VOLUME 95.3 fl (80-96); MEAN PLT VOLUME 9.4 fl (7.5-11.1); MONO % 2.7 % (3.8-10.2); PLATELET COUNT 128 K/MM3 (134-434); RBC 3.19 M/mm3 (4.00-5.60); RDW 16.3 % (11.9-15.9); WHITE BLOOD COUNT 6.9 K/mm3 (4.0-10.0)
[2018-02-18 07:53] LABS: ANION GAP 8 MMOL/L (8-16); BLOOD UREA NITROGEN 68 mg/dL (7-18); CALCIUM 8.1 mg/dL (8.5-10.1); CHLORIDE 96 mmol/L (98-107); CO2 30 mmol/L (21-32); CREATININE 2.1 mg/dL (0.55-1.3); GLUCOSE,RANDOM 300 mg/dL (74-106); MAGNESIUM 2.2 mg/dL (1.8-2.4); PHOSPHOROUS 3.9 mg/dL (2.5-4.9); POTASSIUM 4.1 mmol/L (3.5-5.1); SODIUM 134 mmol/L (136-145)
[2018-02-18] MEDS: ALBUTEROL SO4 2.5/IPRATROPIUM 0.5 INH SOL 3 ML VIAL.NEB. NEB SCH ×4 (08:30→20:55)
[2018-02-18] MEDS: CARVEDILOL 25 MG TABLET (FP) PO SCH ×2 (09:14→22:04)
[2018-02-18] MEDS: FUROSEMIDE 40 MG TABLET (FP) PO SCH (09:14)
[2018-02-18] MEDS: CYCLOBENZAPRINE HCL 10 MG TABLET (FP) PO SCH ×2 (09:15→22:04)
[2018-02-18] MEDS: CLOPIDOGREL BISULFATE 75 MG TABLET (FP) PO SCH (09:15)
[2018-02-18] MEDS: ASPIRIN COATED 81 MG TABLET.EC PO SCH (09:15)
[2018-02-18] MEDS: BUDESONIDE/FORMETEROL FUMARATE 160/4.5 mcg INHALER IH SCH ×2 (09:16→22:03)
[2018-02-18] MEDS: PSYLLIUM 5.85 GM PACKET PO SCH ×2 (09:16→22:03)
[2018-02-18] MEDS: methylPREDNISolone NA SUCC 40 MG/1 ML VIAL IVPUSH SCH ×2 (09:16→22:04)
[2018-02-18] MEDS: DOCUSATE SODIUM 100 MG CAPSULE (FP) PO SCH ×2 (09:16→22:04)
--- NOTE | 2018-02-18 11:14 | PN ---
Progress Note, Physician Chief Complaint: Mr Owen says he is more short of breath today. Developing a cough that is currently non-productive. No cp or n/v. - Current Medication List Current Medications: Active Medications Acetaminophen (Tylenol -) 650 mg PO QID PRN PRN Reason: PAIN LEVEL 1-5 Last Admin: 02/17/18 13:21 Dose: 650 mg Albuterol/Ipratropium (Duoneb -) [address] [facility] Last Admin: 02/18/18 08:30 Dose: 1 amp Albuterol/Ipratropium (Duoneb -) 1 amp NEB Q6H PRN PRN Reason: SHORTNESS OF BREATH Last Admin: 02/16/18 09:57 Dose: 1 amp Aspirin (Ecotrin -) [address] [facility] Last Admin: 02/18/18 09:15 Dose: 81 mg Atorvastatin Calcium (Lipitor -) [address] [facility] Last Admin: 02/17/18 21:20 Dose: 20 mg Budesonide/Formoterol Fumarate (Symbicort 160/4.5mcg -) [address] [facility] Last Admin: 02/18/18 09:16 Dose: 1 puff Carvedilol (Coreg -) [address] [facility] Last Admin: 02/18/18 09:14 Dose: 25 mg Clopidogrel Bisulfate (Plavix -) [address] [facility] Last Admin: 02/18/18 09:15 Dose: 75 mg Cyclobenzaprine HCl (Flexeril -) [address] [facility] Last Admin: 02/18/18 09:15 Dose: 5 mg Docusate Sodium (Colace -) [address] [facility] Last Admin: 02/18/18 09:16 Dose: 100 mg Furosemide (Lasix -) [address] [facility] Last Admin: 02/18/18 09:14 Dose: 80 mg Heparin Sodium (Porcine) (Heparin -) 5,[address] [facility] Last Admin: 02/18/18 05:48 Dose: 5,000 unit Insulin Aspart (Novolog Vial Sliding Scale -) [address] [facility]; Protocol Last Admin: 02/18/18 06:15 Dose: 8 units Lactulose (Cephulac (Oral Use)) 20 gm PO BID PRN PRN Reason: CONSTIPATION Methylprednisolone Sodium Succinate (Solu-Medrol -) [address] [facility] Last Admin: 02/18/18 09:16 Dose: 40 mg Oxycodone HCl (Roxicodone -) 10 mg PO Q6H PRN PRN Reason: PAIN LEVEL 6-10 Last Admin: 02/18/18 04:57 Dose: 10 mg Psyllium Hydrophilic Mucilloid (Metamucil (Sugar-Free) -) 5.[address] [facility] Last Admin: 02/18/18 09:16 Dose: 5.85 gm - Objective Vital Signs: Vital Signs Temperature 36.3 C L 02/18/18 08:26 Pulse Rate 77 02/18/18 08:26 Respiratory Rate 18 02/18/18 08:26 Blood Pressure 152/73 02/18/18 08:26 O2 Sat by Pulse Oximetry (%) 100 02/17/18 21:00 Constitutional: Yes: Well Nourished, No Distress, Calm Cardiovascular: Yes: Pulse Irregular. No: Tachycardia, Gallop, Murmur, Rub Respiratory: Yes: Regular, On Nasal O2, Rhonchi, Wheezes. No: CTA Bilaterally, Rales Gastrointestinal: Yes: Normal Bowel Sounds, Soft. No: Distention, Tenderness Extremities: Yes: WNL Edema: No Labs: CBC, BMP 02/18/18 06:00 02/18/18 06:00 INR, PTT INR 1.17 (0.83-1.09) H 02/16/18 02:55 Problem List - Problems (1) COPD (chronic obstructive pulmonary disease) Code(s): J44.9 - CHRONIC OBSTRUCTIVE PULMONARY DISEASE, UNSPECIFIED Qualifiers: COPD type: COPD with acute exacerbation Qualified Code(s): J44.1 - Chronic obstructive pulmonary disease with (acute) exacerbation (2) CHF (congestive heart failure) Code(s): I50.9 - HEART FAILURE, UNSPECIFIED Qualifiers: Heart failure type: systolic Heart failure chronicity: chronic Qualified Code(s): I50.22 - Chronic systolic (congestive) heart failure (3) Chronic renal insufficiency, stage III (moderate) Code(s): N18.3 - CHRONIC KIDNEY DISEASE, STAGE 3 (MODERATE) (4) Chronic respiratory failure Code(s): J96.10 - CHRONIC RESPIRATORY FAILURE, UNSP W HYPOXIA OR HYPERCAPNIA (5) Afib Code(s): I48.91 - UNSPECIFIED ATRIAL FIBRILLATION Qualifiers: Atrial fibrillation type: chronic Qualified Code(s): I48.2 - Chronic atrial fibrillation (6) Coronary artery disease Code(s): I25.10 - ATHSCL HEART DISEASE OF [place] CORONARY ARTERY W/O ANG PCTRS Qualifiers: Coronary Disease-Associated Artery/Lesion type: bypass graft, other Associated angina: with other forms of angina Qualified Code(s): I25.798 - Atherosclerosis of other coronary artery bypass graft(s) with other forms of angina pectoris (7) Diabetes Code(s): E11.9 - TYPE 2 DIABETES MELLITUS WITHOUT COMPLICATIONS Qualifiers: Diabetes mellitus type: type 2 Diabetes mellitus shelter insulin use: with assistant terminal manager use Diabetes mellitus complication status: with kidney complications Diabetes mellitus complication detail: with chronic kidney disease Chronic kidney disease stage: stage 3 (moderate) Qualified Code(s): E11.22 - Type 2 diabetes mellitus with diabetic chronic kidney disease; N18.3 - Chronic kidney disease, stage 3 (moderate); Z79.4 - ferry terminal agent (current) use of insulin (8) HTN (hypertension) Code(s): I10 - ESSENTIAL (PRIMARY) HYPERTENSION Qualifiers: Hypertension type: essential hypertension Qualified Code(s): I10 - Essential (primary) hypertension (9) Pulmonary hypertension Code(s): I27.2 - OTHER SECONDARY PULMONARY HYPERTENSION * DO NOT USE * Assessment/Plan (1) COPD (chronic obstructive pulmonary disease) Assessment/Plan: -continue solumedrol -continue symbicort -continue duonebs -physical exam worse today, will continue current management -follow up pulmonary recommendations Code(s): J44.9 - CHRONIC OBSTRUCTIVE PULMONARY DISEASE, UNSPECIFIED Qualifiers: COPD type: COPD with acute exacerbation Qualified Code(s): J44.1 - Chronic obstructive pulmonary disease with (acute) exacerbation (2) CHF (congestive heart failure) Assessment/Plan: -continue lasix and coreg -no ACEI/ARB secondary to hyperkalemia -controlled Code(s): I50.9 - HEART FAILURE, UNSPECIFIED Qualifiers: Heart failure type: systolic Heart failure chronicity: chronic Qualified Code(s): I50.22 - Chronic systolic (congestive) heart failure (3) Chronic renal insufficiency, stage III (moderate) Assessment/Plan: -stable Code(s): N18.3 - CHRONIC KIDNEY DISEASE, STAGE 3 (MODERATE) (4) Chronic respiratory failure Assessment/Plan: -continue oxygen support Code(s): J96.10 - CHRONIC RESPIRATORY FAILURE, UNSP W HYPOXIA OR HYPERCAPNIA (5) Afib Assessment/Plan: -controlled -continue coreg and eliquis Code(s): I48.91 - UNSPECIFIED ATRIAL FIBRILLATION Qualifiers: Atrial fibrillation type: chronic Qualified Code(s): I48.2 - Chronic atrial fibrillation (6) Coronary artery disease Assessment/Plan: -quiescent -continue current regimen Code(s): I25.10 - ATHSCL HEART DISEASE OF [place] CORONARY ARTERY W/O ANG PCTRS Qualifiers: Coronary Disease-Associated Artery/Lesion type: bypass graft, other Associated angina: with other forms of angina Qualified Code(s): I25.798 - Atherosclerosis of other coronary artery bypass graft(s) with other forms of angina pectoris (7) Diabetes Assessment/Plan: -elevated -continue SSI -may need levemir while inpatient on IV steroids Code(s): E11.9 - TYPE 2 DIABETES MELLITUS WITHOUT COMPLICATIONS Qualifiers: Diabetes mellitus type: type 2 Diabetes mellitus shelter insulin use: with shelter use Diabetes mellitus complication status: with kidney complications Diabetes mellitus complication detail: with chronic kidney disease Chronic kidney disease stage: stage 3 (moderate) Qualified Code(s): E11.22 - Type 2 diabetes mellitus with diabetic chronic kidney disease; N18.3 - Chronic kidney disease, stage 3 (moderate); Z79.4 - ferry terminal agent (current) use of insulin (8) HTN (hypertension) Assessment/Plan: -controlled Code(s): I10 - ESSENTIAL (PRIMARY) HYPERTENSION Qualifiers: Hypertension type: essential hypertension Qualified Code(s): I10 - Essential (primary) hypertension (9) Pulmonary hypertension Assessment/Plan: -continue current management Code(s): I27.2 - OTHER SECONDARY PULMONARY HYPERTENSION * DO NOT USE *
--- NOTE | 2018-02-18 13:59 | PN ---
Progress Note (short form) - Note Progress Note: Reports increasing SOB/[place]. No CP. Afebrile. Intake & Output 02/15/18 02/16/18 02/17/18 02/18/18 23:59 23:59 23:59 23:59 Intake Total 1270 370 Output Total 225 Balance 1270 145 Weight 178 lb 189 lb 4 oz 190 lb 12.8 oz Last Vital Signs Temp Pulse Resp BP Pulse Ox 97.4 F L 77 18 152/73 98 02/18/18 08:26 02/18/18 08:26 02/18/18 08:26 02/18/18 08:26 02/18/18 09:00 Active Medications Acetaminophen (Tylenol -) 650 mg PO QID PRN PRN Reason: PAIN LEVEL 1-5 Last Admin: 02/17/18 13:21 Dose: 650 mg Albuterol/Ipratropium (Duoneb -) 1 amp NEB RQID [facility] Last Admin: 02/18/18 12:40 Dose: 1 amp Albuterol/Ipratropium (Duoneb -) 1 amp NEB Q6H PRN PRN Reason: SHORTNESS OF BREATH Last Admin: 02/16/18 09:57 Dose: 1 amp Aspirin (Ecotrin -) 81 mg PO DAILY [facility] Last Admin: 02/18/18 09:15 Dose: 81 mg Atorvastatin Calcium (Lipitor -) 20 mg PO HS [facility] Last Admin: 02/17/18 21:20 Dose: 20 mg Budesonide/Formoterol Fumarate (Symbicort 160/4.5mcg -) 1 puff IH BID [facility] Last Admin: 02/18/18 09:16 Dose: 1 puff Carvedilol (Coreg -) 25 mg PO BID [facility] Last Admin: 02/18/18 09:14 Dose: 25 mg Clopidogrel Bisulfate (Plavix -) 75 mg PO DAILY [facility] Last Admin: 02/18/18 09:15 Dose: 75 mg Cyclobenzaprine HCl (Flexeril -) 5 mg PO BID [facility] Last Admin: 02/18/18 09:15 Dose: 5 mg Docusate Sodium (Colace -) 100 mg PO BID [facility] Last Admin: 02/18/18 09:16 Dose: 100 mg Furosemide (Lasix -) 80 mg PO DAILY [facility] Last Admin: 02/18/18 09:14 Dose: 80 mg Heparin Sodium (Porcine) (Heparin -) 5,000 unit SQ TID [facility] Last Admin: 02/18/18 13:34 Dose: 5,000 unit Insulin Aspart (Novolog Vial Sliding Scale -) 1 vial SQ TIDAC [facility]; Protocol Last Admin: 02/18/18 11:41 Dose: 6 units Lactulose (Cephulac (Oral Use)) 20 gm PO BID PRN PRN Reason: CONSTIPATION Methylprednisolone Sodium Succinate (Solu-Medrol -) 40 mg IVPUSH BID [facility] Last Admin: 02/18/18 09:16 Dose: 40 mg Oxycodone HCl (Roxicodone -) 10 mg PO Q6H PRN PRN Reason: PAIN LEVEL 6-10 Last Admin: 02/18/18 11:36 Dose: 10 mg Psyllium Hydrophilic Mucilloid (Metamucil (Sugar-Free) -) 5.85 gm PO BID [facility] Last Admin: 02/18/18 09:16 Dose: 5.85 gm Constitutional: Yes: Mildly tachypneic at rest Eyes: Yes: WNL HENT: Yes: WNL Neck: Yes: WNL Cardiovascular: Yes: Pulse Irregular, S1, S2 Respiratory: Yes: Bibasilar Rales/Rhonchi, wheeze Gastrointestinal: Yes: Normal Bowel Sounds, Soft Extremities: Yes: WNL Edema: No Labs: Laboratory Results - last 24 hr 02/17/18 02/17/18 02/18/18 18:43 21:16 05:48 WBC RBC Hgb Hct MCV MCH MCHC RDW Plt Count MPV Absolute Neuts (auto) Neutrophils % Lymphocytes % Monocytes % Eosinophils % Basophils % Nucleated RBC % Sodium Potassium Chloride Carbon Dioxide Anion Gap BUN Creatinine Creat Clearance w eGFR POC Glucometer 328 304 Random Glucose 343 H* Calcium Phosphorus Magnesium 02/18/18 02/18/18 02/18/18 06:00 06:00 11:38 WBC 6.9 RBC 3.19 L Hgb 10.0 L Hct 30.4 L MCV 95.3 MCH 31.4 MCHC 33.0 RDW 16.3 H Plt Count 128 L MPV 9.4 Absolute Neuts (auto) 6.4 Neutrophils % 93.0 H Lymphocytes % 4.2 L D Monocytes % 2.7 L Eosinophils % 0.0 Basophils % 0.1 Nucleated RBC % 0 Sodium 134 L Potassium 4.1 Chloride 96 L Carbon Dioxide 30 Anion Gap 8 BUN 68 H Creatinine 2.1 H Creat Clearance w eGFR 32.16 POC Glucometer 297 Random Glucose 300 H Calcium 8.1 L Phosphorus 3.9 Magnesium 2.2 Assessment/Plan (1) Bronchitis Code(s): J40 - BRONCHITIS, NOT SPECIFIED ACUTE OR CHRONIC (2) COPD (chronic obstructive pulmonary disease) Code(s): J44.9 - CHRONIC OBSTRUCTIVE PULMONARY DISEASE, UNSPECIFIED (3) Afib Code(s): I48.91 - UNSPECIFIED ATRIAL FIBRILLATION Qualifiers: Atrial fibrillation type: chronic Qualified Code(s): I48.2 - Chronic atrial fibrillation (4) Atrial tachycardia Code(s): I47.1 - SUPRAVENTRICULAR TACHYCARDIA (5) COPD exacerbation Code(s): J44.1 - CHRONIC OBSTRUCTIVE PULMONARY DISEASE W (ACUTE) EXACERBATION (6) Chronic kidney disease (CKD) Code(s): N18.9 - CHRONIC KIDNEY DISEASE, UNSPECIFIED Qualifiers: Chronic kidney disease stage: stage 3 (moderate) Qualified Code(s): N18.3 - Chronic kidney disease, stage 3 (moderate) (7) Cough Code(s): R05 - COUGH (8) Shortness of breath Code(s): R06.02 - SHORTNESS OF BREATH (9) Tobacco abuse Code(s): Z72.0 - TOBACCO USE (10) CAD (coronary artery disease) Code(s): I25.10 - ATHSCL HEART DISEASE OF [place] CORONARY ARTERY W/O ANG PCTRS Qualifiers: [place] vs. transplanted heart: [place] Associated angina: without angina (11) CHF (congestive heart failure) Code(s): I50.9 - HEART FAILURE, UNSPECIFIED Qualifiers: Heart failure type: systolic Heart failure chronicity: acute on chronic Qualified Code(s): I50.23 - Acute on chronic systolic (congestive) heart failure (12) COPD (chronic obstructive pulmonary disease) Code(s): J44.9 - CHRONIC OBSTRUCTIVE PULMONARY DISEASE, UNSPECIFIED Qualifiers: COPD type: COPD with acute exacerbation Qualified Code(s): J44.1 - Chronic obstructive pulmonary disease with (acute) exacerbation (13) Chronic renal insufficiency, stage III (moderate) Code(s): N18.3 - CHRONIC KIDNEY DISEASE, STAGE 3 (MODERATE) (14) Coronary artery disease Code(s): I25.10 - ATHSCL HEART DISEASE OF [place] CORONARY ARTERY W/O ANG PCTRS Qualifiers: Coronary Disease-Associated Artery/Lesion type: bypass graft, other Associated angina: with other forms of angina Qualified Code(s): I25.798 - Atherosclerosis of other coronary artery bypass graft(s) with other forms of angina pectoris (15) Diabetes Code(s): E11.9 - TYPE 2 DIABETES MELLITUS WITHOUT COMPLICATIONS Qualifiers: Diabetes mellitus type: type 2 Diabetes mellitus retirement insulin use: with retirement use Diabetes mellitus complication status: with kidney complications Diabetes mellitus complication detail: with chronic kidney disease Chronic kidney disease stage: stage 3 (moderate) Qualified Code(s): E11.22 - Type 2 diabetes mellitus with diabetic chronic kidney disease; N18.3 - Chronic kidney disease, stage 3 (moderate); Z79.4 - [facility] (current) use of insulin (16) HTN (hypertension) Code(s): I10 - ESSENTIAL (PRIMARY) HYPERTENSION Qualifiers: Hypertension type: essential hypertension Qualified Code(s): I10 - Essential (primary) hypertension (17) Peripheral vascular disease Code(s): I73.9 - PERIPHERAL VASCULAR DISEASE, UNSPECIFIED (18) Pleural effusion Code(s): J90 - PLEURAL EFFUSION, NOT ELSEWHERE CLASSIFIED (19) Pulmonary hypertension Code(s): I27.2 - OTHER SECONDARY PULMONARY HYPERTENSION * DO NOT USE * (20) S/P CABG x 3 Code(s): Z95.1 - PRESENCE OF AORTOCORONARY BYPASS GRAFT Assessment/Plan IV Medrol same dose Duoneb Standing and PRN Symbicort BID On discharge should place on [place] No smoking Prednisone taper on discharge Dr Garner Problem List - Problems (1) Bronchitis Code(s): J40 - BRONCHITIS, NOT SPECIFIED ACUTE OR CHRONIC (2) COPD (chronic obstructive pulmonary disease) Code(s): J44.9 - CHRONIC OBSTRUCTIVE PULMONARY DISEASE, UNSPECIFIED Qualifiers: COPD type: COPD with acute exacerbation Qualified Code(s): J44.1 - Chronic obstructive pulmonary disease with (acute) exacerbation (3) Afib Code(s): I48.91 - UNSPECIFIED ATRIAL FIBRILLATION Qualifiers: Atrial fibrillation type: chronic Qualified Code(s): I48.2 - Chronic atrial fibrillation (4) Atrial tachycardia Code(s): I47.1 - SUPRAVENTRICULAR TACHYCARDIA (5) COPD exacerbation Code(s): J44.1 - CHRONIC OBSTRUCTIVE PULMONARY DISEASE W (ACUTE) EXACERBATION (6) Chronic kidney disease (CKD) Code(s): N18.9 - CHRONIC KIDNEY DISEASE, UNSPECIFIED Qualifiers: Chronic kidney disease stage: stage 3 (moderate) Qualified Code(s): N18.3 - Chronic kidney disease, stage 3 (moderate) (7) Cough Code(s): R05 - COUGH (8) Shortness of breath Code(s): R06.02 - SHORTNESS OF BREATH (9) Tobacco abuse Code(s): Z72.0 - TOBACCO USE (10) CAD (coronary artery disease) Code(s): I25.10 - ATHSCL HEART DISEASE OF [place] CORONARY ARTERY W/O ANG PCTRS Qualifiers: [place] vs. transplanted heart: [place] Associated angina: without angina (11) CHF (congestive heart failure) Code(s): I50.9 - HEART FAILURE, UNSPECIFIED Qualifiers: Heart failure type: systolic Heart failure chronicity: chronic Qualified Code(s): I50.22 - Chronic systolic (congestive) heart failure (12) COPD (chronic obstructive pulmonary disease) Code(s): J44.9 - CHRONIC OBSTRUCTIVE PULMONARY DISEASE, UNSPECIFIED Qualifiers: COPD type: COPD with acute exacerbation Qualified Code(s): J44.1 - Chronic obstructive pulmonary disease with (acute) exacerbation (13) Chronic renal insufficiency, stage III (moderate) Code(s): N18.3 - CHRONIC KIDNEY DISEASE, STAGE 3 (MODERATE) (14) Coronary artery disease Code(s): I25.10 - ATHSCL HEART DISEASE OF [place] CORONARY ARTERY W/O ANG PCTRS Qualifiers: Coronary Disease-Associated Artery/Lesion type: bypass graft, other Associated angina: with other forms of angina Qualified Code(s): I25.798 - Atherosclerosis of other coronary artery bypass graft(s) with other forms of angina pectoris (15) Diabetes Code(s): E11.9 - TYPE 2 DIABETES MELLITUS WITHOUT COMPLICATIONS Qualifiers: Diabetes mellitus type: type 2 Diabetes mellitus retirement insulin use: with barrel raiser helper use Diabetes mellitus complication status: with kidney complications Diabetes mellitus complication detail: with chronic kidney disease Chronic kidney disease stage: stage 3 (moderate) Qualified Code(s): E11.22 - Type 2 diabetes mellitus with diabetic chronic kidney disease; N18.3 - Chronic kidney disease, stage 3 (moderate); Z79.4 - editor in chief newspaper (current) use of insulin (16) HTN (hypertension) Code(s): I10 - ESSENTIAL (PRIMARY) HYPERTENSION Qualifiers: Hypertension type: essential hypertension Qualified Code(s): I10 - Essential (primary) hypertension (17) Peripheral vascular disease Code(s): I73.9 - PERIPHERAL VASCULAR DISEASE, UNSPECIFIED (18) Pleural effusion Code(s): J90 - PLEURAL EFFUSION, NOT ELSEWHERE CLASSIFIED (19) Pulmonary hypertension Code(s): I27.2 - OTHER SECONDARY PULMONARY HYPERTENSION * DO NOT USE * (20) S/P CABG x 3 Code(s): Z95.1 - PRESENCE OF AORTOCORONARY BYPASS GRAFT
[2018-02-18 14:24] LABS: ANISOCYTOSIS 1+; MACROCYTOSIS 1+; OVALOCYTE 1+; PLATELET ESTIMATE DECREASED
[2018-02-18] MEDS ORDERED: PT OWN MED DRAWER 7, Y5N ONE (22:02)
[2018-02-18] MEDS: ATORVASTATIN CA 20 MG TABLET (FP) PO SCH (22:05)
[2018-02-19] MEDS: oxyCODONE HCL 5 MG TABLET PO PRN ×3 (00:15→18:08)
[2018-02-19] MEDS: INSULIN SLIDING SCALE (NOVOLOG) 1 VIAL SQ SCH ×3 (06:03→16:57)
[2018-02-19] MEDS: HEPARIN NA (PORCINE) 5,000 UNITS/ML 1ML VIAL SQ SCH ×3 (06:03→22:15)
[2018-02-19 07:05] LABS: BASO % 0.1 % (0-2.0); HEMATOCRIT 31.2 % (35.4-49); HEMOGLOBIN 10.1 GM/dL (11.7-16.9); LYMPH % 2.4 % (8-40); MCHC 32.5 g/dl (32.0-35.9); MEAN CELL VOLUME 95.5 fl (80-96); MEAN PLT VOLUME 9.3 fl (7.5-11.1); MONO % 3.2 % (3.8-10.2); NEUT % 94.3 % (42.8-82.8); PLATELET COUNT 134 K/MM3 (134-434); RBC 3.27 M/mm3 (4.00-5.60); RDW 16.4 % (11.9-15.9); WHITE BLOOD COUNT 10.7 K/mm3 (4.0-10.0)
[2018-02-19 07:16] LABS: ANION GAP 6 MMOL/L (8-16); BLOOD UREA NITROGEN 66 mg/dL (7-18); CALCIUM 8.5 mg/dL (8.5-10.1); CHLORIDE 97 mmol/L (98-107); CO2 32 mmol/L (21-32); CREATININE 1.9 mg/dL (0.55-1.3); GLUCOSE,RANDOM 295 mg/dL (74-106); MAGNESIUM 2.2 mg/dL (1.8-2.4); PHOSPHOROUS 3.1 mg/dL (2.5-4.9); POTASSIUM 4.1 mmol/L (3.5-5.1); SODIUM 134 mmol/L (136-145)
[2018-02-19] MEDS: ALBUTEROL SO4 2.5/IPRATROPIUM 0.5 INH SOL 3 ML VIAL.NEB. NEB SCH ×2 (08:29→11:55)
[2018-02-19] MEDS: CYCLOBENZAPRINE HCL 10 MG TABLET (FP) PO SCH ×2 (09:31→22:10)
[2018-02-19] MEDS: CARVEDILOL 25 MG TABLET (FP) PO SCH ×2 (09:32→22:13)
[2018-02-19] MEDS: FUROSEMIDE 40 MG TABLET (FP) PO SCH (09:32)
[2018-02-19] MEDS: DOCUSATE SODIUM 100 MG CAPSULE (FP) PO SCH ×2 (09:32→22:12)
[2018-02-19] MEDS: CLOPIDOGREL BISULFATE 75 MG TABLET (FP) PO SCH (09:32)
[2018-02-19] MEDS: methylPREDNISolone NA SUCC 40 MG/1 ML VIAL IVPUSH SCH ×2 (09:33→23:03)
[2018-02-19] MEDS: PSYLLIUM 5.85 GM PACKET PO SCH ×2 (09:33→22:15)
[2018-02-19] MEDS: ASPIRIN COATED 81 MG TABLET.EC PO SCH (09:33)
[2018-02-19 10:12] LABS: ANISOCYTOSIS 0; MACROCYTOSIS 0; PLATELET ESTIMATE DECREASED
[2018-02-19] MEDS: BUDESONIDE/FORMETEROL FUMARATE 160/4.5 mcg INHALER IH SCH ×2 (10:28→22:16)
[2018-02-19] MEDS ORDERED: ALBUTEROL SO4 0.083% IH SOL 2.5 MG/3 ML VIAL.NEB. NEB PRN (12:50)
--- NOTE | 2018-02-19 12:50 | PN ---
Progress Note, Physician History of Present Illness: pulmonary alert,feeling better,but still congested - Current Medication List Current Medications: Active Medications Acetaminophen (Tylenol -) 650 mg PO QID PRN PRN Reason: PAIN LEVEL 1-5 Last Admin: 02/17/18 13:21 Dose: 650 mg Albuterol/Ipratropium (Duoneb -) 1 amp NEB RQID [facility] Last Admin: 02/19/18 11:55 Dose: 1 amp Albuterol/Ipratropium (Duoneb -) 1 amp NEB Q6H PRN PRN Reason: SHORTNESS OF BREATH Last Admin: 02/16/18 09:57 Dose: 1 amp Aspirin (Ecotrin -) 81 mg PO DAILY [facility] Last Admin: 02/19/18 09:33 Dose: 81 mg Atorvastatin Calcium (Lipitor -) 20 mg PO HS [facility] Last Admin: 02/18/18 22:05 Dose: 20 mg Budesonide/Formoterol Fumarate (Symbicort 160/4.5mcg -) 1 puff IH BID [facility] Last Admin: 02/19/18 10:28 Dose: 1 puff Carvedilol (Coreg -) 25 mg PO BID [facility] Last Admin: 02/19/18 09:32 Dose: 25 mg Clopidogrel Bisulfate (Plavix -) 75 mg PO DAILY [facility] Last Admin: 02/19/18 09:32 Dose: 75 mg Cyclobenzaprine HCl (Flexeril -) 5 mg PO BID [facility] Last Admin: 02/19/18 09:31 Dose: 5 mg Docusate Sodium (Colace -) 100 mg PO BID [facility] Last Admin: 02/19/18 09:32 Dose: 100 mg Furosemide (Lasix -) 80 mg PO DAILY [facility] Last Admin: 02/19/18 09:32 Dose: 80 mg Heparin Sodium (Porcine) (Heparin -) 5,000 unit SQ TID [facility] Last Admin: 02/19/18 06:03 Dose: 5,000 unit Insulin Aspart (Novolog Vial Sliding Scale -) 1 vial SQ TIDAC [facility]; Protocol Last Admin: 02/19/18 11:48 Dose: 6 units Lactulose (Cephulac (Oral Use)) 20 gm PO BID PRN PRN Reason: CONSTIPATION Methylprednisolone Sodium Succinate (Solu-Medrol -) 40 mg IVPUSH BID [facility] Last Admin: 02/19/18 09:33 Dose: 40 mg Psyllium Hydrophilic Mucilloid (Metamucil (Sugar-Free) -) 5.85 gm PO BID [facility] Last Admin: 02/19/18 09:33 Dose: 5.85 gm - Objective Vital Signs: Vital Signs Temperature 98 F 02/19/18 08:27 Pulse Rate 63 02/19/18 08:27 Respiratory Rate 18 02/19/18 08:27 Blood Pressure 153/120 H 02/19/18 08:27 O2 Sat by Pulse Oximetry (%) 100 02/19/18 09:00 Constitutional: Yes: Well Nourished, Calm Eyes: Yes: WNL HENT: Yes: WNL Neck: Yes: WNL Cardiovascular: Yes: Pulse Irregular, S1, S2 Respiratory: Yes: Rhonchi, Wheezes (freida rhonchi) Gastrointestinal: Yes: Normal Bowel Sounds, Soft Extremities: Yes: WNL Edema: No Labs: CBC, BMP 02/19/18 05:50 02/19/18 05:50 INR, PTT INR 1.17 (0.83-1.09) H 02/16/18 02:55 Assessment/Plan roblem List - Problems (1) Bronchitis Code(s): J40 - BRONCHITIS, NOT SPECIFIED ACUTE OR CHRONIC (2) COPD (chronic obstructive pulmonary disease) Code(s): J44.9 - CHRONIC OBSTRUCTIVE PULMONARY DISEASE, UNSPECIFIED (3) Afib Code(s): I48.91 - UNSPECIFIED ATRIAL FIBRILLATION Qualifiers: Atrial fibrillation type: chronic Qualified Code(s): I48.2 - Chronic atrial fibrillation (4) Atrial tachycardia Code(s): I47.1 - SUPRAVENTRICULAR TACHYCARDIA (5) COPD exacerbation Code(s): J44.1 - CHRONIC OBSTRUCTIVE PULMONARY DISEASE W (ACUTE) EXACERBATION (6) Chronic kidney disease (CKD) Code(s): N18.9 - CHRONIC KIDNEY DISEASE, UNSPECIFIED Qualifiers: Chronic kidney disease stage: stage 3 (moderate) Qualified Code(s): N18.3 - Chronic kidney disease, stage 3 (moderate) (7) Cough Code(s): R05 - COUGH (8) Shortness of breath Code(s): R06.02 - SHORTNESS OF BREATH (9) Tobacco abuse Code(s): Z72.0 - TOBACCO USE (10) CAD (coronary artery disease) Code(s): I25.10 - ATHSCL HEART DISEASE OF [place] CORONARY ARTERY W/O ANG PCTRS Qualifiers: [place] vs. transplanted heart: [place] heart Associated angina: without angina (11) CHF (congestive heart failure) Code(s): I50.9 - HEART FAILURE, UNSPECIFIED Qualifiers: Heart failure type: systolic Heart failure chronicity: acute on chronic Qualified Code(s): I50.23 - Acute on chronic systolic (congestive) heart failure (12) COPD (chronic obstructive pulmonary disease) Code(s): J44.9 - CHRONIC OBSTRUCTIVE PULMONARY DISEASE, UNSPECIFIED Qualifiers: COPD type: COPD with acute exacerbation Qualified Code(s): J44.1 - Chronic obstructive pulmonary disease with (acute) exacerbation (13) Chronic renal insufficiency, stage III (moderate) Code(s): N18.3 - CHRONIC KIDNEY DISEASE, STAGE 3 (MODERATE) (14) Coronary artery disease Code(s): I25.10 - ATHSCL HEART DISEASE OF [place] CORONARY ARTERY W/O ANG PCTRS Qualifiers: Coronary Disease-Associated Artery/Lesion type: bypass graft, other Associated angina: with other forms of angina Qualified Code(s): I25.798 - Atherosclerosis of other coronary artery bypass graft(s) with other forms of angina pectoris (15) Diabetes Code(s): E11.9 - TYPE 2 DIABETES MELLITUS WITHOUT COMPLICATIONS Qualifiers: Diabetes mellitus type: type 2 Diabetes mellitus detention insulin use: with terminal manager use Diabetes mellitus complication status: with kidney complications Diabetes mellitus complication detail: with chronic kidney disease Chronic kidney disease stage: stage 3 (moderate) Qualified Code(s): E11.22 - Type 2 diabetes mellitus with diabetic chronic kidney disease; N18.3 - Chronic kidney disease, stage 3 (moderate); Z79.4 - correction (current) use of insulin (16) HTN (hypertension) Code(s): I10 - ESSENTIAL (PRIMARY) HYPERTENSION Qualifiers: Hypertension type: essential hypertension Qualified Code(s): I10 - Essential (primary) hypertension (17) Peripheral vascular disease Code(s): I73.9 - PERIPHERAL VASCULAR DISEASE, UNSPECIFIED (18) Pleural effusion Code(s): J90 - PLEURAL EFFUSION, NOT ELSEWHERE CLASSIFIED (19) Pulmonary hypertension Code(s): I27.2 - OTHER SECONDARY PULMONARY HYPERTENSION * DO NOT USE * (20) S/P CABG x 3 Code(s): Z95.1 - PRESENCE OF AORTOCORONARY BYPASS GRAFT Assessment/Plan IV Medrol inhaled bronchodilators Symbicort BID [facility] No smoking Prednisone taper on discharge monitor bp DR BATISTA
[2018-02-19] MEDS ORDERED: PT OWN MED DRAWER 7, Y5N ONE ×2 (13:30→22:36)
--- NOTE | 2018-02-19 15:34 | PN ---
Progress Note, Physician Chief Complaint: Mr Owen says he is still sob with a productive cough. No cp or n/v. - Current Medication List Current Medications: Active Medications Acetaminophen (Tylenol -) 650 mg PO QID PRN PRN Reason: PAIN LEVEL 1-5 Last Admin: 02/17/18 13:21 Dose: 650 mg Albuterol Sulfate (Ventolin 0.083% Nebulizer Soln -) 1 amp NEB Q4H PRN PRN Reason: SHORT OF BREATH/WHEEZING Aspirin (Ecotrin -) 81 mg PO DAILY [facility] Last Admin: 02/19/18 09:33 Dose: 81 mg Atorvastatin Calcium (Lipitor -) 20 mg PO HS [facility] Last Admin: 02/18/18 22:05 Dose: 20 mg Budesonide/Formoterol Fumarate (Symbicort 160/4.5mcg -) 1 puff IH BID [facility] Last Admin: 02/19/18 10:28 Dose: 1 puff Carvedilol (Coreg -) 25 mg PO BID [facility] Last Admin: 02/19/18 09:32 Dose: 25 mg Clopidogrel Bisulfate (Plavix -) 75 mg PO DAILY [facility] Last Admin: 02/19/18 09:32 Dose: 75 mg Cyclobenzaprine HCl (Flexeril -) 5 mg PO BID [facility] Last Admin: 02/19/18 09:31 Dose: 5 mg Docusate Sodium (Colace -) 100 mg PO BID [facility] Last Admin: 02/19/18 09:32 Dose: 100 mg Furosemide (Lasix -) 80 mg PO DAILY [facility] Last Admin: 02/19/18 09:32 Dose: 80 mg Heparin Sodium (Porcine) (Heparin -) 5,000 unit SQ TID [facility] Last Admin: 02/19/18 13:42 Dose: 5,000 unit Insulin Aspart (Novolog Vial Sliding Scale -) 1 vial SQ TIDAC [facility]; Protocol Last Admin: 02/19/18 11:48 Dose: 6 units Lactulose (Cephulac (Oral Use)) 20 gm PO BID PRN PRN Reason: CONSTIPATION Methylprednisolone Sodium Succinate (Solu-Medrol -) 40 mg IVPUSH BID [facility] Last Admin: 02/19/18 09:33 Dose: 40 mg Psyllium Hydrophilic Mucilloid (Metamucil (Sugar-Free) -) 5.85 gm PO BID [facility] Last Admin: 02/19/18 09:33 Dose: 5.85 gm Tiotropium [place] (Spiriva Respimat) 2 puff IH DAILY [facility] - Objective Vital Signs: Vital Signs Temperature 36.3 C L 02/19/18 14:10 Pulse Rate 77 02/19/18 14:10 Respiratory Rate 16 02/19/18 14:10 Blood Pressure 156/83 02/19/18 14:10 O2 Sat by Pulse Oximetry (%) 100 02/19/18 09:00 Constitutional: Yes: Well Nourished, No Distress, Calm Cardiovascular: Yes: Pulse Irregular. No: Tachycardia, Gallop, Murmur, Rub Respiratory: Yes: Regular, On Nasal O2, Rhonchi, Wheezes. No: CTA Bilaterally, Rales Gastrointestinal: Yes: Normal Bowel Sounds, Soft. No: Distention, Tenderness Extremities: Yes: WNL Edema: No Labs: CBC, BMP 02/19/18 05:50 02/19/18 05:50 INR, PTT INR 1.17 (0.83-1.09) H 02/16/18 02:55 Problem List - Problems (1) COPD (chronic obstructive pulmonary disease) Code(s): J44.9 - CHRONIC OBSTRUCTIVE PULMONARY DISEASE, UNSPECIFIED Qualifiers: COPD type: COPD with acute exacerbation Qualified Code(s): J44.1 - Chronic obstructive pulmonary disease with (acute) exacerbation (2) CHF (congestive heart failure) Code(s): I50.9 - HEART FAILURE, UNSPECIFIED Qualifiers: Heart failure type: systolic Heart failure chronicity: chronic Qualified Code(s): I50.22 - Chronic systolic (congestive) heart failure (3) Chronic renal insufficiency, stage III (moderate) Code(s): N18.3 - CHRONIC KIDNEY DISEASE, STAGE 3 (MODERATE) (4) Chronic respiratory failure Code(s): J96.10 - CHRONIC RESPIRATORY FAILURE, UNSP W HYPOXIA OR HYPERCAPNIA (5) Afib Code(s): I48.91 - UNSPECIFIED ATRIAL FIBRILLATION Qualifiers: Atrial fibrillation type: chronic Qualified Code(s): I48.2 - Chronic atrial fibrillation (6) Coronary artery disease Code(s): I25.10 - ATHSCL HEART DISEASE OF [place] CORONARY ARTERY W/O ANG PCTRS Qualifiers: Coronary Disease-Associated Artery/Lesion type: bypass graft, other Associated angina: with other forms of angina Qualified Code(s): I25.798 - Atherosclerosis of other coronary artery bypass graft(s) with other forms of angina pectoris (7) Diabetes Code(s): E11.9 - TYPE 2 DIABETES MELLITUS WITHOUT COMPLICATIONS Qualifiers: Diabetes mellitus type: type 2 Diabetes mellitus mcc insulin use: with mcc use Diabetes mellitus complication status: with kidney complications Diabetes mellitus complication detail: with chronic kidney disease Chronic kidney disease stage: stage 3 (moderate) Qualified Code(s): E11.22 - Type 2 diabetes mellitus with diabetic chronic kidney disease; N18.3 - Chronic kidney disease, stage 3 (moderate); Z79.4 - residential (current) use of insulin (8) HTN (hypertension) Code(s): I10 - ESSENTIAL (PRIMARY) HYPERTENSION Qualifiers: Hypertension type: essential hypertension Qualified Code(s): I10 - Essential (primary) hypertension (9) Pulmonary hypertension Code(s): I27.2 - OTHER SECONDARY PULMONARY HYPERTENSION * DO NOT USE * Assessment/Plan (1) COPD (chronic obstructive pulmonary disease) Assessment/Plan: -pulmonary following and note reviewed -continue solumedrol and bronchodilators -will check chest x-ray Code(s): J44.9 - CHRONIC OBSTRUCTIVE PULMONARY DISEASE, UNSPECIFIED Qualifiers: COPD type: COPD with acute exacerbation Qualified Code(s): J44.1 - Chronic obstructive pulmonary disease with (acute) exacerbation (2) CHF (congestive heart failure) Assessment/Plan: -continue lasix and coreg -no ACEI/ARB secondary to hyperkalemia -controlled -will check chest x-ray to make sure not fluid overloaded Code(s): I50.9 - HEART FAILURE, UNSPECIFIED Qualifiers: Heart failure type: systolic Heart failure chronicity: chronic Qualified Code(s): I50.22 - Chronic systolic (congestive) heart failure (3) Chronic renal insufficiency, stage III (moderate) Assessment/Plan: -stable Code(s): N18.3 - CHRONIC KIDNEY DISEASE, STAGE 3 (MODERATE) (4) Chronic respiratory failure Assessment/Plan: -continue oxygen support Code(s): J96.10 - CHRONIC RESPIRATORY FAILURE, UNSP W HYPOXIA OR HYPERCAPNIA (5) Afib Assessment/Plan: -controlled -continue coreg and eliquis Code(s): I48.91 - UNSPECIFIED ATRIAL FIBRILLATION Qualifiers: Atrial fibrillation type: chronic Qualified Code(s): I48.2 - Chronic atrial fibrillation (6) Coronary artery disease Assessment/Plan: -quiescent -continue current regimen Code(s): I25.10 - ATHSCL HEART DISEASE OF [place] CORONARY ARTERY W/O ANG PCTRS Qualifiers: Coronary Disease-Associated Artery/Lesion type: bypass graft, other Associated angina: with other forms of angina Qualified Code(s): I25.798 - Atherosclerosis of other coronary artery bypass graft(s) with other forms of angina pectoris (7) Diabetes Assessment/Plan: -elevated -continue SSI -will add levemir while in the hospital since on steroids and poorly controlled Code(s): E11.9 - TYPE 2 DIABETES MELLITUS WITHOUT COMPLICATIONS Qualifiers: Diabetes mellitus type: type 2 Diabetes mellitus mcc insulin use: with mcc use Diabetes mellitus complication status: with kidney complications Diabetes mellitus complication detail: with chronic kidney disease Chronic kidney disease stage: stage 3 (moderate) Qualified Code(s): E11.22 - Type 2 diabetes mellitus with diabetic chronic kidney disease; N18.3 - Chronic kidney disease, stage 3 (moderate); Z79.4 - residential (current) use of insulin (8) HTN (hypertension) Assessment/Plan: -controlled Code(s): I10 - ESSENTIAL (PRIMARY) HYPERTENSION Qualifiers: Hypertension type: essential hypertension Qualified Code(s): I10 - Essential (primary) hypertension (9) Pulmonary hypertension Assessment/Plan: -continue current management Code(s): I27.2 - OTHER SECONDARY PULMONARY HYPERTENSION * DO NOT USE *
[2018-02-19] MEDS: TIOTROPIUM BROMIDE 2.5 MCG (SPIRIVA) RESPIMAT INHALER IH SCH (16:58)
[2018-02-19] MEDS: ATORVASTATIN CA 20 MG TABLET (FP) PO SCH (22:12)
[2018-02-19] MEDS: INSULIN (LEVEMIR) 100 UNITS/ML UNITS SQ SCH (23:02)
[2018-02-20] MEDS: oxyCODONE HCL 5 MG TABLET PO PRN ×4 (00:29→22:00)
[2018-02-20] MEDS: HEPARIN NA (PORCINE) 5,000 UNITS/ML 1ML VIAL SQ SCH ×3 (06:01→21:40)
[2018-02-20] MEDS: INSULIN SLIDING SCALE (NOVOLOG) 1 VIAL SQ SCH ×3 (06:19→16:53)
[2018-02-20 07:42] LABS: BASO % 0.2 % (0-2.0); HEMATOCRIT 32.8 % (35.4-49); HEMOGLOBIN 10.6 GM/dL (11.7-16.9); LYMPH % 3.6 % (8-40); MCH 30.9 pg (25.7-33.7); MCHC 32.3 g/dl (32.0-35.9); MEAN CELL VOLUME 95.7 fl (80-96); MEAN PLT VOLUME 9.3 fl (7.5-11.1); NEUT % 91.2 % (42.8-82.8); PLATELET COUNT 130 K/MM3 (134-434); RBC 3.42 M/mm3 (4.00-5.60); RDW 16.3 % (11.9-15.9)
[2018-02-20 08:05] LABS: ANION GAP 9 MMOL/L (8-16); BLOOD UREA NITROGEN 73 mg/dL (7-18); CALCIUM 8.4 mg/dL (8.5-10.1); CHLORIDE 94 mmol/L (98-107); CO2 30 mmol/L (21-32); CREATININE 2.2 mg/dL (0.55-1.3); MAGNESIUM 2.2 mg/dL (1.8-2.4); PHOSPHOROUS 2.8 mg/dL (2.5-4.9); POTASSIUM 4.2 mmol/L (3.5-5.1); SODIUM 133 mmol/L (136-145)
[2018-02-20 08:20] LABS: GLUCOSE,RANDOM 377 mg/dL (74-106)
[2018-02-20] MEDS ORDERED: PT OWN MED DRAWER 7, Y5N ONE (08:36)
[2018-02-20] MEDS: DOCUSATE SODIUM 100 MG CAPSULE (FP) PO SCH ×2 (09:12→21:41)
[2018-02-20] MEDS: CARVEDILOL 25 MG TABLET (FP) PO SCH ×2 (09:12→21:41)
[2018-02-20] MEDS: FUROSEMIDE 40 MG TABLET (FP) PO SCH (09:12)
[2018-02-20] MEDS: methylPREDNISolone NA SUCC 40 MG/1 ML VIAL IVPUSH SCH ×2 (09:12→21:40)
[2018-02-20] MEDS: ASPIRIN COATED 81 MG TABLET.EC PO SCH (09:13)
[2018-02-20] MEDS: CLOPIDOGREL BISULFATE 75 MG TABLET (FP) PO SCH (09:13)
[2018-02-20] MEDS: CYCLOBENZAPRINE HCL 10 MG TABLET (FP) PO SCH ×2 (09:13→21:40)
[2018-02-20] MEDS: PSYLLIUM 5.85 GM PACKET PO SCH ×2 (09:13→21:41)
[2018-02-20] MEDS: TIOTROPIUM BROMIDE 2.5 MCG (SPIRIVA) RESPIMAT INHALER IH SCH (09:13)
[2018-02-20] MEDS: BUDESONIDE/FORMETEROL FUMARATE 160/4.5 mcg INHALER IH SCH ×2 (09:14→22:00)
--- NOTE | 2018-02-20 10:16 | PN ---
Progress Note, Physician Chief Complaint: Mr Owen says he is feeling better today but only slightly. No cp or n/v. Sob improving but still present. Less cough today. - Current Medication List Current Medications: Active Medications Acetaminophen (Tylenol -) 650 mg PO QID PRN PRN Reason: PAIN LEVEL 1-5 Last Admin: 02/17/18 13:21 Dose: 650 mg Albuterol Sulfate (Ventolin 0.083% Nebulizer Soln -) 1 amp NEB Q4H PRN PRN Reason: SHORT OF BREATH/WHEEZING Last Admin: 02/19/18 21:45 Dose: 1 amp Aspirin (Ecotrin -) 81 mg PO DAILY [facility] Last Admin: 02/20/18 09:13 Dose: 81 mg Atorvastatin Calcium (Lipitor -) 20 mg PO HS [facility] Last Admin: 02/19/18 22:12 Dose: 20 mg Budesonide/Formoterol Fumarate (Symbicort 160/4.5mcg -) 1 puff IH BID [facility] Last Admin: 02/20/18 09:14 Dose: 1 puff Carvedilol (Coreg -) 25 mg PO BID [facility] Last Admin: 02/20/18 09:12 Dose: 25 mg Clopidogrel Bisulfate (Plavix -) 75 mg PO DAILY [facility] Last Admin: 02/20/18 09:13 Dose: 75 mg Cyclobenzaprine HCl (Flexeril -) 5 mg PO BID [facility] Last Admin: 02/20/18 09:13 Dose: 5 mg Docusate Sodium (Colace -) 100 mg PO BID [facility] Last Admin: 02/20/18 09:12 Dose: 100 mg Furosemide (Lasix -) 80 mg PO DAILY [facility] Last Admin: 02/20/18 09:12 Dose: 80 mg Heparin Sodium (Porcine) (Heparin -) 5,000 unit SQ TID [facility] Last Admin: 02/20/18 06:01 Dose: 5,000 unit Insulin Aspart (Novolog Vial Sliding Scale -) 1 vial SQ TIDAC [facility]; Protocol Last Admin: 02/20/18 06:19 Dose: 8 units Insulin Detemir (Levemir Vial) 10 units SQ HS [facility] Last Admin: 02/19/18 23:02 Dose: 10 unit Lactulose (Cephulac (Oral Use)) 20 gm PO BID PRN PRN Reason: CONSTIPATION Methylprednisolone Sodium Succinate (Solu-Medrol -) 40 mg IVPUSH BID [facility] Last Admin: 02/20/18 09:12 Dose: 40 mg Oxycodone HCl (Roxicodone -) 10 mg PO Q6H PRN PRN Reason: PAIN LEVEL 4 - 6 Last Admin: 02/20/18 06:48 Dose: 10 mg Psyllium Hydrophilic Mucilloid (Metamucil (Sugar-Free) -) 5.85 gm PO BID [facility] Last Admin: 02/20/18 09:13 Dose: 5.85 gm Tiotropium [place] (Spiriva Respimat) 2 puff IH DAILY [facility] Last Admin: 02/20/18 09:13 Dose: 2 puff - Objective Vital Signs: Vital Signs Temperature 36.4 C 02/20/18 06:00 Pulse Rate 116 H 02/20/18 06:00 Respiratory Rate 20 02/20/18 06:00 Blood Pressure 144/99 02/20/18 06:00 O2 Sat by Pulse Oximetry (%) 100 02/19/18 09:00 Constitutional: Yes: Well Nourished, No Distress, Calm Cardiovascular: Yes: Pulse Irregular. No: Tachycardia, Gallop, Murmur, Rub Respiratory: Yes: Regular, On Nasal O2, Rhonchi (improved). No: CTA Bilaterally , Rales, Wheezes Gastrointestinal: Yes: Normal Bowel Sounds, Soft. No: Distention, Tenderness Extremities: Yes: WNL Edema: No Labs: CBC, BMP 02/20/18 06:10 02/20/18 06:10 INR, PTT INR 1.17 (0.83-1.09) H 02/16/18 02:55 Problem List - Problems (1) COPD (chronic obstructive pulmonary disease) Code(s): J44.9 - CHRONIC OBSTRUCTIVE PULMONARY DISEASE, UNSPECIFIED Qualifiers: COPD type: COPD with acute exacerbation Qualified Code(s): J44.1 - Chronic obstructive pulmonary disease with (acute) exacerbation (2) CHF (congestive heart failure) Code(s): I50.9 - HEART FAILURE, UNSPECIFIED Qualifiers: Heart failure type: systolic Heart failure chronicity: chronic Qualified Code(s): I50.22 - Chronic systolic (congestive) heart failure (3) Chronic renal insufficiency, stage III (moderate) Code(s): N18.3 - CHRONIC KIDNEY DISEASE, STAGE 3 (MODERATE) (4) Chronic respiratory failure Code(s): J96.10 - CHRONIC RESPIRATORY FAILURE, UNSP W HYPOXIA OR HYPERCAPNIA (5) Afib Code(s): I48.91 - UNSPECIFIED ATRIAL FIBRILLATION Qualifiers: Atrial fibrillation type: chronic Qualified Code(s): I48.2 - Chronic atrial fibrillation (6) Coronary artery disease Code(s): I25.10 - ATHSCL HEART DISEASE OF [place] CORONARY ARTERY W/O ANG PCTRS Qualifiers: Coronary Disease-Associated Artery/Lesion type: bypass graft, other Associated angina: with other forms of angina Qualified Code(s): I25.798 - Atherosclerosis of other coronary artery bypass graft(s) with other forms of angina pectoris (7) Diabetes Code(s): E11.9 - TYPE 2 DIABETES MELLITUS WITHOUT COMPLICATIONS Qualifiers: Diabetes mellitus type: type 2 Diabetes mellitus import export clerk insulin use: with import export clerk use Diabetes mellitus complication status: with kidney complications Diabetes mellitus complication detail: with chronic kidney disease Chronic kidney disease stage: stage 3 (moderate) Qualified Code(s): E11.22 - Type 2 diabetes mellitus with diabetic chronic kidney disease; N18.3 - Chronic kidney disease, stage 3 (moderate); Z79.4 - ground service equipment mechanic (current) use of insulin (8) HTN (hypertension) Code(s): I10 - ESSENTIAL (PRIMARY) HYPERTENSION Qualifiers: Hypertension type: essential hypertension Qualified Code(s): I10 - Essential (primary) hypertension (9) Pulmonary hypertension Code(s): I27.2 - OTHER SECONDARY PULMONARY HYPERTENSION * DO NOT USE * Assessment/Plan (1) COPD (chronic obstructive pulmonary disease) Assessment/Plan: -portable chest x-ray looks unchanged per my read -await official read -lung exam improved today -continue current management -pulmonary following -would continue IV solumedrol bid currently, plan to titrate to prednisone in 24 -48 hours if continues to improve Code(s): J44.9 - CHRONIC OBSTRUCTIVE PULMONARY DISEASE, UNSPECIFIED Qualifiers: COPD type: COPD with acute exacerbation Qualified Code(s): J44.1 - Chronic obstructive pulmonary disease with (acute) exacerbation (2) CHF (congestive heart failure) Assessment/Plan: -continue lasix and coreg -no ACEI/ARB secondary to hyperkalemia -controlled -chest x-ray looks unchanged Code(s): I50.9 - HEART FAILURE, UNSPECIFIED Qualifiers: Heart failure type: systolic Heart failure chronicity: chronic Qualified Code(s): I50.22 - Chronic systolic (congestive) heart failure (3) Chronic renal insufficiency, stage III (moderate) Assessment/Plan: -stable -noted to have increasing BUN -will add protonix since on high dose steroids Code(s): N18.3 - CHRONIC KIDNEY DISEASE, STAGE 3 (MODERATE) (4) Chronic respiratory failure Assessment/Plan: -continue oxygen support Code(s): J96.10 - CHRONIC RESPIRATORY FAILURE, UNSP W HYPOXIA OR HYPERCAPNIA (5) Afib Assessment/Plan: -controlled -continue coreg and eliquis Code(s): I48.91 - UNSPECIFIED ATRIAL FIBRILLATION Qualifiers: Atrial fibrillation type: chronic Qualified Code(s): I48.2 - Chronic atrial fibrillation (6) Coronary artery disease Assessment/Plan: -quiescent -continue current regimen Code(s): I25.10 - ATHSCL HEART DISEASE OF [place] CORONARY ARTERY W/O ANG PCTRS Qualifiers: Coronary Disease-Associated Artery/Lesion type: bypass graft, other Associated angina: with other forms of angina Qualified Code(s): I25.798 - Atherosclerosis of other coronary artery bypass graft(s) with other forms of angina pectoris (7) Diabetes Assessment/Plan: -levemir while on solumedrol -continue diabetic diet -continue FSBS and SSI -may need to increase levemir but will not discharge on this Code(s): E11.9 - TYPE 2 DIABETES MELLITUS WITHOUT COMPLICATIONS Qualifiers: Diabetes mellitus type: type 2 Diabetes mellitus senior care insulin use: with import export clerk use Diabetes mellitus complication status: with kidney complications Diabetes mellitus complication detail: with chronic kidney disease Chronic kidney disease stage: stage 3 (moderate) Qualified Code(s): E11.22 - Type 2 diabetes mellitus with diabetic chronic kidney disease; N18.3 - Chronic kidney disease, stage 3 (moderate); Z79.4 - correction (current) use of insulin (8) HTN (hypertension) Assessment/Plan: -slightly elevated -secondary to steroids Code(s): I10 - ESSENTIAL (PRIMARY) HYPERTENSION Qualifiers: Hypertension type: essential hypertension Qualified Code(s): I10 - Essential (primary) hypertension (9) Pulmonary hypertension Assessment/Plan: -continue current management Code(s): I27.2 - OTHER SECONDARY PULMONARY HYPERTENSION * DO NOT USE *
--- NOTE | 2018-02-20 10:19 | PN ---
Progress Note, Physician History of Present Illness: pulmonary alert,feeling better,less dyspneic,less congested - Current Medication List Current Medications: Active Medications Acetaminophen (Tylenol -) 650 mg PO QID PRN PRN Reason: PAIN LEVEL 1-5 Last Admin: 02/17/18 13:21 Dose: 650 mg Albuterol Sulfate (Ventolin 0.083% Nebulizer Soln -) 1 amp NEB Q4H PRN PRN Reason: SHORT OF BREATH/WHEEZING Last Admin: 02/19/18 21:45 Dose: 1 amp Aspirin (Ecotrin -) 81 mg PO DAILY [facility] Last Admin: 02/20/18 09:13 Dose: 81 mg Atorvastatin Calcium (Lipitor -) 20 mg PO HS [facility] Last Admin: 02/19/18 22:12 Dose: 20 mg Budesonide/Formoterol Fumarate (Symbicort 160/4.5mcg -) 1 puff IH BID [facility] Last Admin: 02/20/18 09:14 Dose: 1 puff Carvedilol (Coreg -) 25 mg PO BID [facility] Last Admin: 02/20/18 09:12 Dose: 25 mg Clopidogrel Bisulfate (Plavix -) 75 mg PO DAILY [facility] Last Admin: 02/20/18 09:13 Dose: 75 mg Cyclobenzaprine HCl (Flexeril -) 5 mg PO BID [facility] Last Admin: 02/20/18 09:13 Dose: 5 mg Docusate Sodium (Colace -) 100 mg PO BID [facility] Last Admin: 02/20/18 09:12 Dose: 100 mg Furosemide (Lasix -) 80 mg PO DAILY [facility] Last Admin: 02/20/18 09:12 Dose: 80 mg Heparin Sodium (Porcine) (Heparin -) 5,000 unit SQ TID [facility] Last Admin: 02/20/18 06:01 Dose: 5,000 unit Insulin Aspart (Novolog Vial Sliding Scale -) 1 vial SQ TIDAC [facility]; Protocol Last Admin: 02/20/18 06:19 Dose: 8 units Insulin Detemir (Levemir Vial) 10 units SQ HS [facility] Last Admin: 02/19/18 23:02 Dose: 10 unit Lactulose (Cephulac (Oral Use)) 20 gm PO BID PRN PRN Reason: CONSTIPATION Methylprednisolone Sodium Succinate (Solu-Medrol -) 40 mg IVPUSH BID [facility] Last Admin: 02/20/18 09:12 Dose: 40 mg Oxycodone HCl (Roxicodone -) 10 mg PO Q6H PRN PRN Reason: PAIN LEVEL 4 - 6 Last Admin: 02/20/18 06:48 Dose: 10 mg Pantoprazole Sodium (Protonix -) 40 mg PO DAILY [facility] Psyllium Hydrophilic Mucilloid (Metamucil (Sugar-Free) -) 5.85 gm PO BID [facility] Last Admin: 02/20/18 09:13 Dose: 5.85 gm Tiotropium [place] (Spiriva Respimat) 2 puff IH DAILY [facility] Last Admin: 02/20/18 09:13 Dose: 2 puff - Objective Vital Signs: Vital Signs Temperature 97.6 F 02/20/18 06:00 Pulse Rate 116 H 02/20/18 06:00 Respiratory Rate 20 02/20/18 06:00 Blood Pressure 144/99 02/20/18 06:00 O2 Sat by Pulse Oximetry (%) 100 02/19/18 09:00 Constitutional: Yes: Well Nourished, Calm Eyes: Yes: WNL HENT: Yes: WNL Neck: Yes: WNL Cardiovascular: Yes: Pulse Irregular, S1, S2 Respiratory: Yes: Rhonchi (scattered freida rhonchi) Gastrointestinal: Yes: Normal Bowel Sounds, Soft Extremities: Yes: WNL Edema: No Labs: CBC, BMP 02/20/18 06:10 02/20/18 06:10 INR, PTT INR 1.17 (0.83-1.09) H 02/16/18 02:55 Assessment/Plan roblem List - Problems (1) Bronchitis Code(s): J40 - BRONCHITIS, NOT SPECIFIED ACUTE OR CHRONIC (2) COPD (chronic obstructive pulmonary disease) Code(s): J44.9 - CHRONIC OBSTRUCTIVE PULMONARY DISEASE, UNSPECIFIED (3) Afib Code(s): I48.91 - UNSPECIFIED ATRIAL FIBRILLATION Qualifiers: Atrial fibrillation type: chronic Qualified Code(s): I48.2 - Chronic atrial fibrillation (4) Atrial tachycardia Code(s): I47.1 - SUPRAVENTRICULAR TACHYCARDIA (5) COPD exacerbation Code(s): J44.1 - CHRONIC OBSTRUCTIVE PULMONARY DISEASE W (ACUTE) EXACERBATION (6) Chronic kidney disease (CKD) Code(s): N18.9 - CHRONIC KIDNEY DISEASE, UNSPECIFIED Qualifiers: Chronic kidney disease stage: stage 3 (moderate) Qualified Code(s): N18.3 - Chronic kidney disease, stage 3 (moderate) (7) Cough Code(s): R05 - COUGH (8) Shortness of breath Code(s): R06.02 - SHORTNESS OF BREATH (9) Tobacco abuse Code(s): Z72.0 - TOBACCO USE (10) CAD (coronary artery disease) Code(s): I25.10 - ATHSCL HEART DISEASE OF [place] CORONARY ARTERY W/O ANG PCTRS Qualifiers: [place] vs. transplanted heart: [place] heart Associated angina: without angina (11) CHF (congestive heart failure) Code(s): I50.9 - HEART FAILURE, UNSPECIFIED Qualifiers: Heart failure type: systolic Heart failure chronicity: acute on chronic Qualified Code(s): I50.23 - Acute on chronic systolic (congestive) heart failure (12) COPD (chronic obstructive pulmonary disease) Code(s): J44.9 - CHRONIC OBSTRUCTIVE PULMONARY DISEASE, UNSPECIFIED Qualifiers: COPD type: COPD with acute exacerbation Qualified Code(s): J44.1 - Chronic obstructive pulmonary disease with (acute) exacerbation (13) Chronic renal insufficiency, stage III (moderate) Code(s): N18.3 - CHRONIC KIDNEY DISEASE, STAGE 3 (MODERATE) (14) Coronary artery disease Code(s): I25.10 - ATHSCL HEART DISEASE OF [place] CORONARY ARTERY W/O ANG PCTRS Qualifiers: Coronary Disease-Associated Artery/Lesion type: bypass graft, other Associated angina: with other forms of angina Qualified Code(s): I25.798 - Atherosclerosis of other coronary artery bypass graft(s) with other forms of angina pectoris (15) Diabetes Code(s): E11.9 - TYPE 2 DIABETES MELLITUS WITHOUT COMPLICATIONS Qualifiers: Diabetes mellitus type: type 2 Diabetes mellitus intermediate teacher insulin use: with intermediate teacher use Diabetes mellitus complication status: with kidney complications Diabetes mellitus complication detail: with chronic kidney disease Chronic kidney disease stage: stage 3 (moderate) Qualified Code(s): E11.22 - Type 2 diabetes mellitus with diabetic chronic kidney disease; N18.3 - Chronic kidney disease, stage 3 (moderate); Z79.4 - [facility] (current) use of insulin (16) HTN (hypertension) Code(s): I10 - ESSENTIAL (PRIMARY) HYPERTENSION Qualifiers: Hypertension type: essential hypertension Qualified Code(s): I10 - Essential (primary) hypertension (17) Peripheral vascular disease Code(s): I73.9 - PERIPHERAL VASCULAR DISEASE, UNSPECIFIED (18) Pleural effusion Code(s): J90 - PLEURAL EFFUSION, NOT ELSEWHERE CLASSIFIED (19) Pulmonary hypertension Code(s): I27.2 - OTHER SECONDARY PULMONARY HYPERTENSION * DO NOT USE * (20) S/P CABG x 3 Code(s): Z95.1 - PRESENCE OF AORTOCORONARY BYPASS GRAFT Assessment/Plan IV Medrol taper inhaled bronchodilators Symbicort BID [place] No smoking Prednisone taper on discharge monitor bp DR BATISTA
[2018-02-20 11:57] LABS: ACANTHOCYTES 1+; ANISOCYTOSIS 1+; MACROCYTOSIS 1+; PLATELET ESTIMATE DECREASED; TEAR DROP CELLS 1+
[2018-02-20] MEDS: PANTOPRAZOLE 40 MG TABLET (FP) PO SCH (11:57)
[2018-02-20] MEDS: ACETAMINOPHEN 325 MG TABLET (FP) PO PRN (13:23)
[2018-02-20] MEDS: ATORVASTATIN CA 20 MG TABLET (FP) PO SCH (21:41)
[2018-02-20] MEDS: INSULIN (LEVEMIR) 100 UNITS/ML UNITS SQ SCH (21:41)
[2018-02-21] MEDS: INSULIN SLIDING SCALE (NOVOLOG) 1 VIAL SQ SCH ×3 (07:00→16:19)
[2018-02-21] MEDS: HEPARIN NA (PORCINE) 5,000 UNITS/ML 1ML VIAL SQ SCH ×3 (07:01→22:26)
[2018-02-21 07:47] LABS: BASO % 0.2 % (0-2.0); EOS % 0.1 % (0-4.5); HEMATOCRIT 33.8 % (35.4-49); LYMPH % 4.6 % (8-40); MCH 31.1 pg (25.7-33.7); MCHC 32.5 g/dl (32.0-35.9); MEAN CELL VOLUME 95.8 fl (80-96); MEAN PLT VOLUME 9.4 fl (7.5-11.1); MONO % 5.1 % (3.8-10.2); PLATELET COUNT 145 K/MM3 (134-434); RBC 3.53 M/mm3 (4.00-5.60); RDW 16.9 % (11.9-15.9); WHITE BLOOD COUNT 10.2 K/mm3 (4.0-10.0)
[2018-02-21 08:37] LABS: ANION GAP 9 MMOL/L (8-16); BLOOD UREA NITROGEN 80 mg/dL (7-18); CALCIUM 8.7 mg/dL (8.5-10.1); CHLORIDE 95 mmol/L (98-107); CO2 30 mmol/L (21-32); CREATININE 2.3 mg/dL (0.55-1.3); GLUCOSE,RANDOM 231 mg/dL (74-106); MAGNESIUM 2.2 mg/dL (1.8-2.4); PHOSPHOROUS 3.5 mg/dL (2.5-4.9); POTASSIUM 4.2 mmol/L (3.5-5.1); SODIUM 135 mmol/L (136-145)
[2018-02-21] MEDS ORDERED: PT OWN MED DRAWER 7, Y5N ONE ×3 (09:09→22:13)
[2018-02-21] MEDS: CARVEDILOL 25 MG TABLET (FP) PO SCH ×2 (09:11→22:25)
[2018-02-21] MEDS: DOCUSATE SODIUM 100 MG CAPSULE (FP) PO SCH ×2 (09:11→22:26)
[2018-02-21] MEDS: CYCLOBENZAPRINE HCL 10 MG TABLET (FP) PO SCH ×2 (09:12→22:23)
[2018-02-21] MEDS: FUROSEMIDE 40 MG TABLET (FP) PO SCH (09:12)
[2018-02-21] MEDS: PSYLLIUM 5.85 GM PACKET PO SCH ×2 (09:12→22:26)
[2018-02-21] MEDS: TIOTROPIUM BROMIDE 2.5 MCG (SPIRIVA) RESPIMAT INHALER IH SCH (09:13)
[2018-02-21] MEDS: oxyCODONE HCL 5 MG TABLET PO PRN ×3 (09:13→22:27)
[2018-02-21] MEDS: PANTOPRAZOLE 40 MG TABLET (FP) PO SCH (09:13)
[2018-02-21] MEDS: methylPREDNISolone NA SUCC 40 MG/1 ML VIAL IVPUSH SCH ×2 (09:13→22:26)
[2018-02-21] MEDS: BUDESONIDE/FORMETEROL FUMARATE 160/4.5 mcg INHALER IH SCH ×2 (09:13→22:25)
[2018-02-21] MEDS: CLOPIDOGREL BISULFATE 75 MG TABLET (FP) PO SCH (09:13)
[2018-02-21] MEDS: ASPIRIN COATED 81 MG TABLET.EC PO SCH (09:28)
--- NOTE | 2018-02-21 10:44 | PN ---
Progress Note, Physician Chief Complaint: Mr Owen says he is feeling better today and almost to baseline. No cp or n/ v. - Current Medication List Current Medications: Active Medications Acetaminophen (Tylenol -) 650 mg PO QID PRN PRN Reason: PAIN LEVEL 1-5 Last Admin: 02/20/18 13:23 Dose: 650 mg Albuterol Sulfate (Ventolin 0.083% Nebulizer Soln -) 1 amp NEB Q4H PRN PRN Reason: SHORT OF BREATH/WHEEZING Last Admin: 02/19/18 21:45 Dose: 1 amp Aspirin (Ecotrin -) 81 mg PO DAILY [facility] Last Admin: 02/21/18 09:28 Dose: 81 mg Atorvastatin Calcium (Lipitor -) 20 mg PO HS [facility] Last Admin: 02/20/18 21:41 Dose: 20 mg Budesonide/Formoterol Fumarate (Symbicort 160/4.5mcg -) 1 puff IH BID [facility] Last Admin: 02/21/18 09:13 Dose: 1 puff Carvedilol (Coreg -) 25 mg PO BID [facility] Last Admin: 02/21/18 09:11 Dose: 25 mg Clopidogrel Bisulfate (Plavix -) 75 mg PO DAILY [facility] Last Admin: 02/21/18 09:13 Dose: 75 mg Cyclobenzaprine HCl (Flexeril -) 5 mg PO BID [facility] Last Admin: 02/21/18 09:12 Dose: 5 mg Docusate Sodium (Colace -) 100 mg PO BID [facility] Last Admin: 02/21/18 09:11 Dose: 100 mg Furosemide (Lasix -) 80 mg PO DAILY [facility] Last Admin: 02/21/18 09:12 Dose: 80 mg Heparin Sodium (Porcine) (Heparin -) 5,000 unit SQ TID [facility] Last Admin: 02/21/18 07:01 Dose: Not Given Insulin Aspart (Novolog Vial Sliding Scale -) 1 vial SQ TIDAC [facility]; Protocol Last Admin: 02/21/18 07:00 Dose: Not Given Insulin Detemir (Levemir Vial) 10 units SQ [facility] Last Admin: 02/20/18 21:41 Dose: 20 unit Lactulose (Cephulac (Oral Use)) 20 gm PO BID PRN PRN Reason: CONSTIPATION Methylprednisolone Sodium Succinate (Solu-Medrol -) 40 mg IVPUSH BID [facility] Stop: 02/21/18 23:59 Last Admin: 02/21/18 09:13 Dose: 40 mg Oxycodone HCl (Roxicodone -) 10 mg PO Q6H PRN PRN Reason: PAIN LEVEL 4 - 6 Last Admin: 02/21/18 09:13 Dose: 10 mg Pantoprazole Sodium (Protonix -) 40 mg PO DAILY [facility] Last Admin: 02/21/18 09:13 Dose: 40 mg Prednisone (Deltasone -) 60 mg PO DAILY [facility] Psyllium Hydrophilic Mucilloid (Metamucil (Sugar-Free) -) 5.85 gm PO BID [facility] Last Admin: 02/21/18 09:12 Dose: 5.85 gm Tiotropium [place] (Spiriva Respimat) 2 puff IH DAILY [facility] Last Admin: 02/21/18 09:13 Dose: 2 puff - Objective Vital Signs: Vital Signs Temperature 36.5 C 02/21/18 08:00 Pulse Rate 90 02/21/18 08:00 Respiratory Rate 20 02/21/18 08:00 Blood Pressure 157/99 02/21/18 08:00 O2 Sat by Pulse Oximetry (%) 100 02/19/18 09:00 Constitutional: Yes: Well Nourished, No Distress, Calm Cardiovascular: Yes: Regular Rate and Rhythm. No: Gallop, Murmur, Rub Respiratory: Yes: Regular, On Nasal O2, Rhonchi, Wheezes. No: CTA Bilaterally, Rales Gastrointestinal: Yes: Normal Bowel Sounds, Soft. No: Distention, Tenderness Extremities: Yes: WNL Edema: No Labs: CBC, BMP 02/21/18 06:00 02/21/18 06:00 INR, PTT INR 1.17 (0.83-1.09) H 02/16/18 02:55 Problem List - Problems (1) COPD (chronic obstructive pulmonary disease) Code(s): J44.9 - CHRONIC OBSTRUCTIVE PULMONARY DISEASE, UNSPECIFIED Qualifiers: COPD type: COPD with acute exacerbation Qualified Code(s): J44.1 - Chronic obstructive pulmonary disease with (acute) exacerbation (2) CHF (congestive heart failure) Code(s): I50.9 - HEART FAILURE, UNSPECIFIED Qualifiers: Heart failure type: systolic Heart failure chronicity: chronic Qualified Code(s): I50.22 - Chronic systolic (congestive) heart failure (3) Chronic renal insufficiency, stage III (moderate) Code(s): N18.3 - CHRONIC KIDNEY DISEASE, STAGE 3 (MODERATE) (4) Chronic respiratory failure Code(s): J96.10 - CHRONIC RESPIRATORY FAILURE, UNSP W HYPOXIA OR HYPERCAPNIA (5) Afib Code(s): I48.91 - UNSPECIFIED ATRIAL FIBRILLATION Qualifiers: Atrial fibrillation type: chronic Qualified Code(s): I48.2 - Chronic atrial fibrillation (6) Coronary artery disease Code(s): I25.10 - ATHSCL HEART DISEASE OF [place] CORONARY ARTERY W/O ANG PCTRS Qualifiers: Coronary Disease-Associated Artery/Lesion type: bypass graft, other Associated angina: with other forms of angina Qualified Code(s): I25.798 - Atherosclerosis of other coronary artery bypass graft(s) with other forms of angina pectoris (7) Diabetes Code(s): E11.9 - TYPE 2 DIABETES MELLITUS WITHOUT COMPLICATIONS Qualifiers: Diabetes mellitus type: type 2 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: with pulverizer mill operator use Diabetes mellitus complication status: with kidney complications Diabetes mellitus complication detail: with chronic kidney disease Chronic kidney disease stage: stage 3 (moderate) Qualified Code(s): E11.22 - Type 2 diabetes mellitus with diabetic chronic kidney disease; N18.3 - Chronic kidney disease, stage 3 (moderate); Z79.4 - custodial (current) use of insulin (8) HTN (hypertension) Code(s): I10 - ESSENTIAL (PRIMARY) HYPERTENSION Qualifiers: Hypertension type: essential hypertension Qualified Code(s): I10 - Essential (primary) hypertension (9) Pulmonary hypertension Code(s): I27.2 - OTHER SECONDARY PULMONARY HYPERTENSION * DO NOT USE * Assessment/Plan (1) COPD (chronic obstructive pulmonary disease) Assessment/Plan: -continue current management -change to prednisone tomorrow -plan for discharge on prednisone taper Code(s): J44.9 - CHRONIC OBSTRUCTIVE PULMONARY DISEASE, UNSPECIFIED Qualifiers: COPD type: COPD with acute exacerbation Qualified Code(s): J44.1 - Chronic obstructive pulmonary disease with (acute) exacerbation (2) CHF (congestive heart failure) Assessment/Plan: -continue lasix and coreg -no ACEI/ARB secondary to hyperkalemia -controlled -chest x-ray looks unchanged Code(s): I50.9 - HEART FAILURE, UNSPECIFIED Qualifiers: Heart failure type: systolic Heart failure chronicity: chronic Qualified Code(s): I50.22 - Chronic systolic (congestive) heart failure (3) Chronic renal insufficiency, stage III (moderate) Assessment/Plan: -stable Code(s): N18.3 - CHRONIC KIDNEY DISEASE, STAGE 3 (MODERATE) (4) Chronic respiratory failure Assessment/Plan: -continue oxygen support Code(s): J96.10 - CHRONIC RESPIRATORY FAILURE, UNSP W HYPOXIA OR HYPERCAPNIA (5) Afib Assessment/Plan: -controlled -continue coreg and eliquis Code(s): I48.91 - UNSPECIFIED ATRIAL FIBRILLATION Qualifiers: Atrial fibrillation type: chronic Qualified Code(s): I48.2 - Chronic atrial fibrillation (6) Coronary artery disease Assessment/Plan: -quiescent -continue current regimen Code(s): I25.10 - ATHSCL HEART DISEASE OF [place] CORONARY ARTERY W/O ANG PCTRS Qualifiers: Coronary Disease-Associated Artery/Lesion type: bypass graft, other Associated angina: with other forms of angina Qualified Code(s): I25.798 - Atherosclerosis of other coronary artery bypass graft(s) with other forms of angina pectoris (7) Diabetes Assessment/Plan: -levemir while on solumedrol -continue diabetic diet -continue FSBS and SSI Code(s): E11.9 - TYPE 2 DIABETES MELLITUS WITHOUT COMPLICATIONS Qualifiers: Diabetes mellitus type: type 2 Diabetes mellitus mcfp insulin use: with mcfp use Diabetes mellitus complication status: with kidney complications Diabetes mellitus complication detail: with chronic kidney disease Chronic kidney disease stage: stage 3 (moderate) Qualified Code(s): E11.22 - Type 2 diabetes mellitus with diabetic chronic kidney disease; N18.3 - Chronic kidney disease, stage 3 (moderate); Z79.4 - custodial (current) use of insulin (8) HTN (hypertension) Assessment/Plan: -slightly elevated -secondary to steroids Code(s): I10 - ESSENTIAL (PRIMARY) HYPERTENSION Qualifiers: Hypertension type: essential hypertension Qualified Code(s): I10 - Essential (primary) hypertension (9) Pulmonary hypertension Assessment/Plan: -continue current management Code(s): I27.2 - OTHER SECONDARY PULMONARY HYPERTENSION * DO NOT USE *
[2018-02-21 10:54] LABS: ANISOCYTOSIS 1+; MACROCYTOSIS 1+; OVALOCYTE 1+; PLATELET ESTIMATE DECREASED
--- NOTE | 2018-02-21 11:21 | PN ---
Progress Note, Physician History of Present Illness: pulmonary alert,feeling better,less dyspneic - Current Medication List Current Medications: Active Medications Acetaminophen (Tylenol -) 650 mg PO QID PRN PRN Reason: PAIN LEVEL 1-5 Last Admin: 02/20/18 13:23 Dose: 650 mg Albuterol Sulfate (Ventolin 0.083% Nebulizer Soln -) 1 amp NEB Q4H PRN PRN Reason: SHORT OF BREATH/WHEEZING Last Admin: 02/19/18 21:45 Dose: 1 amp Aspirin (Ecotrin -) 81 mg PO DAILY [facility] Last Admin: 02/21/18 09:28 Dose: 81 mg Atorvastatin Calcium (Lipitor -) 20 mg PO HS [facility] Last Admin: 02/20/18 21:41 Dose: 20 mg Budesonide/Formoterol Fumarate (Symbicort 160/4.5mcg -) 1 puff IH BID [facility] Last Admin: 02/21/18 09:13 Dose: 1 puff Carvedilol (Coreg -) 25 mg PO BID [facility] Last Admin: 02/21/18 09:11 Dose: 25 mg Clopidogrel Bisulfate (Plavix -) 75 mg PO DAILY [facility] Last Admin: 02/21/18 09:13 Dose: 75 mg Cyclobenzaprine HCl (Flexeril -) 5 mg PO BID [facility] Last Admin: 02/21/18 09:12 Dose: 5 mg Docusate Sodium (Colace -) 100 mg PO BID [facility] Last Admin: 02/21/18 09:11 Dose: 100 mg Furosemide (Lasix -) 80 mg PO DAILY [facility] Last Admin: 02/21/18 09:12 Dose: 80 mg Heparin Sodium (Porcine) (Heparin -) 5,000 unit SQ TID [facility] Last Admin: 02/21/18 07:01 Dose: Not Given Insulin Aspart (Novolog Vial Sliding Scale -) 1 vial SQ TIDAC [facility]; Protocol Last Admin: 02/21/18 07:00 Dose: Not Given Insulin Detemir (Levemir Vial) 10 units SQ [facility] Last Admin: 02/20/18 21:41 Dose: 20 unit Lactulose (Cephulac (Oral Use)) 20 gm PO BID PRN PRN Reason: CONSTIPATION Methylprednisolone Sodium Succinate (Solu-Medrol -) 40 mg IVPUSH BID [facility] Stop: 02/21/18 23:59 Last Admin: 02/21/18 09:13 Dose: 40 mg Oxycodone HCl (Roxicodone -) 10 mg PO Q6H PRN PRN Reason: PAIN LEVEL 4 - 6 Last Admin: 02/21/18 09:13 Dose: 10 mg Pantoprazole Sodium (Protonix -) 40 mg PO DAILY [facility] Last Admin: 02/21/18 09:13 Dose: 40 mg Prednisone (Deltasone -) 60 mg PO DAILY [facility] Psyllium Hydrophilic Mucilloid (Metamucil (Sugar-Free) -) 5.85 gm PO BID [facility] Last Admin: 02/21/18 09:12 Dose: 5.85 gm Tiotropium [place] (Spiriva Respimat) 2 puff IH DAILY [facility] Last Admin: 02/21/18 09:13 Dose: 2 puff - Objective Vital Signs: Vital Signs Temperature 97.7 F 02/21/18 08:00 Pulse Rate 90 02/21/18 08:00 Respiratory Rate 20 02/21/18 08:00 Blood Pressure 157/99 02/21/18 08:00 O2 Sat by Pulse Oximetry (%) 99 02/21/18 08:00 Constitutional: Yes: Well Nourished, Calm Eyes: Yes: WNL HENT: Yes: WNL Neck: Yes: WNL Cardiovascular: Yes: Pulse Irregular, S1, S2 Respiratory: Yes: Wheezes (scattered wheezes) Gastrointestinal: Yes: Normal Bowel Sounds, Soft Extremities: Yes: WNL Edema: No Labs: CBC, BMP 02/21/18 06:00 02/21/18 06:00 INR, PTT Assessment/Plan roble List - Problems (1) Bronchitis Code(s): J40 - BRONCHITIS, NOT SPECIFIED ACUTE OR CHRONIC (2) COPD (chronic obstructive pulmonary disease) Code(s): J44.9 - CHRONIC OBSTRUCTIVE PULMONARY DISEASE, UNSPECIFIED (3) Afib Code(s): I48.91 - UNSPECIFIED ATRIAL FIBRILLATION Qualifiers: Atrial fibrillation type: chronic Qualified Code(s): I48.2 - Chronic atrial fibrillation (4) Atrial tachycardia Code(s): I47.1 - SUPRAVENTRICULAR TACHYCARDIA (5) COPD exacerbation Code(s): J44.1 - CHRONIC OBSTRUCTIVE PULMONARY DISEASE W (ACUTE) EXACERBATION (6) Chronic kidney disease (CKD) Code(s): N18.9 - CHRONIC KIDNEY DISEASE, UNSPECIFIED Qualifiers: Chronic kidney disease stage: stage 3 (moderate) Qualified Code(s): N18.3 - Chronic kidney disease, stage 3 (moderate) (7) Cough Code(s): R05 - COUGH (8) Shortness of breath Code(s): R06.02 - SHORTNESS OF BREATH (9) Tobacco abuse Code(s): Z72.0 - TOBACCO USE (10) CAD (coronary artery disease) Code(s): I25.10 - ATHSCL HEART DISEASE OF [place] CORONARY ARTERY W/O ANG PCTRS Qualifiers: [place] vs. transplanted heart: [place] heart Associated angina: without angina (11) CHF (congestive heart failure) Code(s): I50.9 - HEART FAILURE, UNSPECIFIED Qualifiers: Heart failure type: systolic Heart failure chronicity: acute on chronic Qualified Code(s): I50.23 - Acute on chronic systolic (congestive) heart failure (12) COPD (chronic obstructive pulmonary disease) Code(s): J44.9 - CHRONIC OBSTRUCTIVE PULMONARY DISEASE, UNSPECIFIED Qualifiers: COPD type: COPD with acute exacerbation Qualified Code(s): J44.1 - Chronic obstructive pulmonary disease with (acute) exacerbation (13) Chronic renal insufficiency, stage III (moderate) Code(s): N18.3 - CHRONIC KIDNEY DISEASE, STAGE 3 (MODERATE) (14) Coronary artery disease Code(s): I25.10 - ATHSCL HEART DISEASE OF [place] CORONARY ARTERY W/O ANG PCTRS Qualifiers: Coronary Disease-Associated Artery/Lesion type: bypass graft, other Associated angina: with other forms of angina Qualified Code(s): I25.798 - Atherosclerosis of other coronary artery bypass graft(s) with other forms of angina pectoris (15) Diabetes Code(s): E11.9 - TYPE 2 DIABETES MELLITUS WITHOUT COMPLICATIONS Qualifiers: Diabetes mellitus type: type 2 Diabetes 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 insulin use: with alf use Diabetes mellitus complication status: with kidney complications Diabetes mellitus complication detail: with chronic kidney disease Chronic kidney disease stage: stage 3 (moderate) Qualified Code(s): E11.22 - Type 2 diabetes mellitus with diabetic chronic kidney disease; N18.3 - Chronic kidney disease, stage 3 (moderate); Z79.4 - meterman (current) use of insulin (16) HTN (hypertension) Code(s): I10 - ESSENTIAL (PRIMARY) HYPERTENSION Qualifiers: Hypertension type: essential hypertension Qualified Code(s): I10 - Essential (primary) hypertension (17) Peripheral vascular disease Code(s): I73.9 - PERIPHERAL VASCULAR DISEASE, UNSPECIFIED (18) Pleural effusion Code(s): J90 - PLEURAL EFFUSION, NOT ELSEWHERE CLASSIFIED (19) Pulmonary hypertension Code(s): I27.2 - OTHER SECONDARY PULMONARY HYPERTENSION * DO NOT USE * (20) S/P CABG x 3 Code(s): Z95.1 - PRESENCE OF AORTOCORONARY BYPASS GRAFT Assessment/Plan IV Medrol prednisone in am inhaled bronchodilators Symbicort BID [facility] No smoking Prednisone taper on discharge monitor bp DR BATISTA
[2018-02-21] MEDS: ATORVASTATIN CA 20 MG TABLET (FP) PO SCH (22:25)
[2018-02-21] MEDS: INSULIN (LEVEMIR) 100 UNITS/ML UNITS SQ SCH (22:26)
[2018-02-21] MEDS: ACETAMINOPHEN 325 MG TABLET (FP) PO PRN (22:27)
[2018-02-22] MEDS ORDERED: guaiFENesin 600 MG TABLET.ER (FP) PO ONE (02:14)
[2018-02-22] MEDS: HEPARIN NA (PORCINE) 5,000 UNITS/ML 1ML VIAL SQ SCH ×2 (06:57→13:20)
[2018-02-22] MEDS: INSULIN SLIDING SCALE (NOVOLOG) 1 VIAL SQ SCH ×2 (06:57→11:46)
[2018-02-22] MEDS: oxyCODONE HCL 5 MG TABLET PO PRN (06:58)
[2018-02-22] MEDS: ACETAMINOPHEN 325 MG TABLET (FP) PO PRN (06:58)
[2018-02-22 09:01] VITALS: BP 143/89; PULSE 129; TEMP 97.4
[2018-02-22] MEDS ORDERED: PT OWN MED DRAWER 7, Y5N ONE (09:10)
[2018-02-22] MEDS: PSYLLIUM 5.85 GM PACKET PO SCH (09:13)
[2018-02-22] MEDS: CARVEDILOL 25 MG TABLET (FP) PO SCH (09:13)
[2018-02-22] MEDS: CLOPIDOGREL BISULFATE 75 MG TABLET (FP) PO SCH (09:13)
[2018-02-22] MEDS: PANTOPRAZOLE 40 MG TABLET (FP) PO SCH (09:13)
[2018-02-22] MEDS: CYCLOBENZAPRINE HCL 10 MG TABLET (FP) PO SCH (09:13)
[2018-02-22] MEDS: FUROSEMIDE 40 MG TABLET (FP) PO SCH (09:13)
[2018-02-22] MEDS: ASPIRIN COATED 81 MG TABLET.EC PO SCH (09:13)
[2018-02-22] MEDS: BUDESONIDE/FORMETEROL FUMARATE 160/4.5 mcg INHALER IH SCH (09:14)
[2018-02-22] MEDS: DOCUSATE SODIUM 100 MG CAPSULE (FP) PO SCH (09:14)
[2018-02-22] MEDS: TIOTROPIUM BROMIDE 2.5 MCG (SPIRIVA) RESPIMAT INHALER IH SCH (09:15)
[2018-02-22] MEDS ORDERED: predniSONE 20 MG TABLET (UD) PO SCH (10:00)
--- NOTE | 2018-02-22 12:02 | PN ---
Progress Note (short form) - Note Progress Note: PULMONARY States breathing improving. Still some cough and wheezing. Vital Signs Period Temp Pulse Resp BP Sys/El Pulse Ox Last 24 Hr 97.3 F-98.4 F 81-129 16-20 131-152/59-94 99-99 Gen: NAD at rest Heart: RRR Lung: bilateral wheezes Abd: soft, nontender Ext: no edema CBC, BMP 02/21/18 06:00 02/21/18 06:00 Active Medications Acetaminophen (Tylenol -) 650 mg PO QID PRN PRN Reason: PAIN LEVEL 1-5 Last Admin: 02/22/18 06:58 Dose: 650 mg Albuterol Sulfate (Ventolin 0.083% Nebulizer Soln -) 1 amp NEB Q4H PRN PRN Reason: SHORT OF BREATH/WHEEZING Last Admin: 02/19/18 21:45 Dose: 1 amp Aspirin (Ecotrin -) 81 mg PO DAILY [facility] Last Admin: 02/22/18 09:13 Dose: 81 mg Atorvastatin Calcium (Lipitor -) 20 mg PO HS [facility] Last Admin: 02/21/18 22:25 Dose: 20 mg Budesonide/Formoterol Fumarate (Symbicort 160/4.5mcg -) 1 puff IH BID [facility] Last Admin: 02/22/18 09:14 Dose: 1 puff Carvedilol (Coreg -) 25 mg PO BID [facility] Last Admin: 02/22/18 09:13 Dose: 25 mg Clopidogrel Bisulfate (Plavix -) 75 mg PO DAILY [facility] Last Admin: 02/22/18 09:13 Dose: 75 mg Cyclobenzaprine HCl (Flexeril -) 5 mg PO BID [facility] Last Admin: 02/22/18 09:13 Dose: 5 mg Docusate Sodium (Colace -) 100 mg PO BID [facility] Last Admin: 02/22/18 09:14 Dose: 100 mg Furosemide (Lasix -) 80 mg PO DAILY [facility] Last Admin: 02/22/18 09:13 Dose: 80 mg Heparin Sodium (Porcine) (Heparin -) 5,000 unit SQ TID [facility] Last Admin: 02/22/18 06:57 Dose: 5,000 unit Insulin Aspart (Novolog Vial Sliding Scale -) 1 vial SQ TIDAC [facility]; Protocol Last Admin: 02/22/18 11:46 Dose: 6 units Insulin Detemir (Levemir Vial) 10 units SQ HS [facility] Last Admin: 02/21/18 22:26 Dose: 10 unit Lactulose (Cephulac (Oral Use)) 20 gm PO BID PRN PRN Reason: CONSTIPATION Oxycodone HCl (Roxicodone -) 10 mg PO Q6H PRN PRN Reason: PAIN LEVEL 4 - 6 Last Admin: 02/22/18 06:58 Dose: 10 mg Pantoprazole Sodium (Protonix -) 40 mg PO DAILY [facility] Last Admin: 02/22/18 09:13 Dose: 40 mg Prednisone (Deltasone -) 60 mg PO DAILY [facility] Last Admin: 02/22/18 09:13 Dose: 60 mg Psyllium Hydrophilic Mucilloid (Metamucil (Sugar-Free) -) 5.85 gm PO BID [facility] Last Admin: 02/22/18 09:13 Dose: 5.85 gm Tiotropium [place] (Spiriva Respimat) 2 puff IH DAILY [facility] Last Admin: 02/22/18 09:15 Dose: 2 puff A/P Acute on Chronic Hypoxic Respiratory Failure Acute COPD Exacerbation LV Systolic Dysfunction Atrial Fibrillation CAD s/p CABG MR h/o AVR CKD HTN Hyperlipidemia - prednisone taper - inhaled bronchodilators - O2 to keep Spo2 >90% - continue lasix - rate controlled - continue anticoagulation
--- NOTE | 2018-02-22 12:43 | DS ---
Physical Examination Vital Signs: Vital Signs Temperature 36.3 C L 02/22/18 09:00 Pulse Rate 129 H 02/22/18 09:00 Respiratory Rate 18 02/22/18 09:00 Blood Pressure 143/89 02/22/18 09:00 O2 Sat by Pulse Oximetry (%) 99 02/22/18 09:00 Constitutional: Yes: Well Nourished, No Distress, Calm Cardiovascular: Yes: Regular Rate and Rhythm. No: Gallop, Murmur, Rub Respiratory: Yes: Regular, On Nasal O2, Rhonchi. No: CTA Bilaterally, Rales, Wheezes Gastrointestinal: Yes: Normal Bowel Sounds, Soft. No: Distention, Tenderness Extremities: Yes: WNL Edema: No Labs: CBC, BMP 02/21/18 06:00 02/21/18 06:00 Discharge Summary Reason For Visit: ACUTE CHRONIC CONGESTIVE HEART FAILURE Current Active Problems Acute exacerbation of CHF (congestive heart failure) (Acute) COPD (chronic obstructive pulmonary disease) (Acute) Chronic respiratory failure (Acute) Hospital Course: (1) COPD (chronic obstructive pulmonary disease) Code(s): J44.9 - CHRONIC OBSTRUCTIVE PULMONARY DISEASE, UNSPECIFIED Qualifiers: COPD type: COPD with acute exacerbation Qualified Code(s): J44.1 - Chronic obstructive pulmonary disease with (acute) exacerbation (2) CHF (congestive heart failure) Code(s): I50.9 - HEART FAILURE, UNSPECIFIED Qualifiers: Heart failure type: systolic Heart failure chronicity: chronic Qualified Code(s): I50.22 - Chronic systolic (congestive) heart failure (3) Chronic renal insufficiency, stage III (moderate) Code(s): N18.3 - CHRONIC KIDNEY DISEASE, STAGE 3 (MODERATE) (4) Chronic respiratory failure Code(s): J96.10 - CHRONIC RESPIRATORY FAILURE, UNSP W HYPOXIA OR HYPERCAPNIA (5) Afib Code(s): I48.91 - UNSPECIFIED ATRIAL FIBRILLATION Qualifiers: Atrial fibrillation type: chronic Qualified Code(s): I48.2 - Chronic atrial fibrillation (6) Coronary artery disease Code(s): I25.10 - ATHSCL HEART DISEASE OF [place] CORONARY ARTERY W/O ANG PCTRS Qualifiers: Coronary Disease-Associated Artery/Lesion type: bypass graft, other Associated angina: with other forms of angina Qualified Code(s): I25.798 - Atherosclerosis of other coronary artery bypass graft(s) with other forms of angina pectoris (7) Diabetes Code(s): E11.9 - TYPE 2 DIABETES MELLITUS WITHOUT COMPLICATIONS Qualifiers: Diabetes mellitus type: type 2 Diabetes mellitus assisted insulin use: with assisted use Diabetes mellitus complication status: with kidney complications Diabetes mellitus complication detail: with chronic kidney disease Chronic kidney disease stage: stage 3 (moderate) Qualified Code(s): E11.22 - Type 2 diabetes mellitus with diabetic chronic kidney disease; N18.3 - Chronic kidney disease, stage 3 (moderate); Z79.4 - [facility] (current) use of insulin (8) HTN (hypertension) Code(s): I10 - ESSENTIAL (PRIMARY) HYPERTENSION Qualifiers: Hypertension type: essential hypertension Qualified Code(s): I10 - Essential (primary) hypertension (9) Pulmonary hypertension Code(s): I27.2 - OTHER SECONDARY PULMONARY HYPERTENSION * DO NOT USE * Mr Owen is a pleasant 62 year old male who comes in with COPD exacerbation. He was admitted and started on IV solumedrol. He was seen by pulmonary and it was continued. He was continued on his home oxygen without change. He was also placed on broncodilators. He was slowly improved and was able to be titrated to oral prednisone. Today he says he is feeling good and is back to baseline. He will be discharged home on a prednisone taper. He was otherwise continued on his home medications. He is safe for discharge home today. 31 minutes spent in preparation of this discharge Condition: Stable - Instructions Diet, Activity, Other Instructions: resume previous diet and activity Referrals: Kanu Truong MD [Primary Care Provider] - Pio Greer MD [Staff Physician] - Grant Manning MD [Staff Physician] - Disposition: HOME - Home Medications Comprehensive Discharge Medication List: Ambulatory Orders Aspirin [Aspirin EC] 81 mg PO DAILY 06/18/15 Clopidogrel Bisulfate [Clopidogrel] 75 mg PO DAILY 06/18/15 Zolpidem Tartrate [Ambien] 10 mg PO HS 06/18/15 Psyllium [Metamucil (Sugar-Free) -] 5.85 gm PO BID #1 bottle 06/02/17 Docusate Sodium [Colace -] 100 mg PO TID #90 capsule 09/22/17 Cholecalciferol (Vitamin D3) [Vitamin D3] 2,000 unit PO DAILY #30 capsule Budesonide/Formeterol Fumarate [SYMBICORT 160/4.5mcg -] 1 puff IH DAILY inhaler 12/30/17 Cyclobenzaprine HCl 5 mg PO BID #28 tablet 12/30/17 Atorvastatin Ca 20 mg PO HS 01/11/18 Glipizide [Glucotrol -] 5 mg PO BID 01/11/18 Carvedilol [Coreg -] 25 mg PO BID #60 tablet 02/14/18 Lactulose (Oral Use) [Cephulac -] 20 gm PO BID PRN 02/16/18 Oxycodone HCl 10 mg PO QID PRN 02/16/18 Furosemide [Lasix -] 80 mg PO DAILY 7 Days #60 tablet 02/22/18 Pantoprazole Sodium [Protonix -] 40 mg PO DAILY #14 tablet.ec 02/22/18 Tiotropium [place] [Spiriva Respimat] 2 puff IH DAILY #1 inhaler 02/22/18 predniSONE [Deltasone -] 5 mg PO ASDIR #78 tab 02/22/18
== END 2018-02-22 14:50 | disposition home or self-care (01) | DRG 189 ==
LOC: JER 00:01 → JERBED 07:45 → J4S 21:41
PROVIDERS: ADMIT Internal Medicine; ATTEND Internal Medicine
PROC: 5A09357 Assistance with Respiratory Ventilation, Less than 24 Consecutive Hours, Continuous Positive Airway Pressure (ICD-10-PCS; principal; 2018-02-16)
DX: J96.21 Acute and chronic respiratory failure with hypoxia (principal); J44.1 Chronic obstructive pulmonary disease with (acute) exacerbation; I13.0 Hypertensive heart and chronic kidney disease with heart failure and stage 1 through stage 4 chronic kidney disease, or unspecified chronic kidney disease; I50.22 Chronic systolic (congestive) heart failure; I47.1 Supraventricular tachycardia; I25.10 Atherosclerotic heart disease of native coronary artery without angina pectoris; I48.2 Chronic atrial fibrillation; E11.40 Type 2 diabetes mellitus with diabetic neuropathy, unspecified; E78.5 Hyperlipidemia, unspecified; E11.22 Type 2 diabetes mellitus with diabetic chronic kidney disease; N18.3 Chronic kidney disease, stage 3 (moderate); D64.9 Anemia, unspecified; K59.00 Constipation, unspecified; I34.0 Nonrheumatic mitral (valve) insufficiency; I27.20 Pulmonary hypertension, unspecified; Z99.81 Dependence on supplemental oxygen; Z95.1 Presence of aortocoronary bypass graft; Z95.0 Presence of cardiac pacemaker; Z87.891 Personal history of nicotine dependence
CPT/HCPCS: 36415; 36600; 71045-TC-FY; 80048; 80053; 82550; 82803; 82947; 82962; 83605; 83735; 83880; 84100; 84484; 85025; 85610; 93005; 93010; 94640; 94660; 99285-25; J1644

== ENCOUNTER 2018-03-12 13:07 | Observation (INO) | payer OTHER ==
[2018-03-12 13:30] VITALS: BMI 24.3
--- NOTE | 2018-03-12 13:38 | PDOC ---
History of Present Illness - General Chief Complaint: Injury Stated Complaint: Injury Time Seen by Provider: 03/12/18 13:38 - History of Present Illness Initial Comments: 62 y/o man with PMH of COPD (home O2 3L), chronic systolic CHF, HTN, HLP, AICD, A fib, CAD (on ASA and Plavix), s/p CABG, MR, bio AVR, PVD, and CKD 3 presenting with worse falls despite using cane with head trauma today. Patient was recently seen at our facility for COPD exacerbation and was treated with bronchodilators and steroids with good resolution of symptoms. He has been falling over the last two weeks with heavy use of his walker and intermittent use of his cane. Over the past three days he has fallen 10 times and fell today striking his head on a radiator. States that he feels very short o breath and lightheaded during his falls. Denies nay LOC or syncope. He is taking all of his medications and is on his home O2. Denies any fevers, chills, nausea, vomiting, diarrhea, or other symptoms. 03/12/18 14:12 Past History - Past Medical History Allergies/Adverse Reactions: Allergies Allergy/AdvReac Type Severity Reaction Status Date / Time Fish Containing Products Allergy Verified 03/12/18 13:30 codeine AdvReac Intermediate Vomiting Verified 03/12/18 13:30 gabapentin AdvReac Intermediate dizzy Verified 03/12/18 13:30 Home Medications: Ambulatory Orders Aspirin [Aspirin EC] 81 mg PO DAILY 06/18/15 Clopidogrel Bisulfate [Clopidogrel] 75 mg PO DAILY 06/18/15 Zolpidem Tartrate [Ambien] 10 mg PO HS 06/18/15 Psyllium [Metamucil (Sugar-Free) -] 5.85 gm PO BID #1 bottle 06/02/17 Docusate Sodium [Colace -] 100 mg PO TID #90 capsule 09/22/17 Cholecalciferol (Vitamin D3) [Vitamin D3] 2,000 unit PO DAILY #30 capsule Budesonide/Formeterol Fumarate [SYMBICORT 160/4.5mcg -] 1 puff IH DAILY inhaler 12/30/17 Cyclobenzaprine HCl 5 mg PO BID #28 tablet 12/30/17 Glipizide [Glucotrol -] 5 mg PO BID 01/11/18 Carvedilol [Coreg -] 25 mg PO BID #60 tablet 02/14/18 Lactulose (Oral Use) [Cephulac -] 20 gm PO BID PRN 02/16/18 Oxycodone HCl 10 mg PO QID PRN 02/16/18 Furosemide [Lasix -] 80 mg PO DAILY 7 Days #60 tablet 02/22/18 Pantoprazole Sodium [Protonix -] 40 mg PO DAILY #14 tablet.ec 02/22/18 Tiotropium [place] [Spiriva Respimat] 2 puff IH DAILY #1 inhaler 02/22/18 predniSONE [Deltasone -] 5 mg PO ASDIR #78 tab 02/22/18 Atorvastatin Ca [Lipitor] 20 mg PO HS 02/23/18 Oxycodone HCl/Acetaminophen [Percocet 10-325 mg Tablet] 1 each PO QID #120 tablet MDD 4 02/23/18 Anemia: No Asthma: No Cancer: No Cardiac Disorders: Yes (cabg, AFIB) CVA: No COPD: Yes CHF: Yes Dementia: No Diabetes: Yes (with neuropathy) GI Disorders: No Disorders: No HTN: Yes Hypercholesterolemia: Yes Liver Disease: No Seizures: No Thyroid Disease: No - Surgical History Abdominal Surgery: No Appendectomy: No Cardiac Surgery: Yes (CABG x 3, implanted defib and pacer) Cholecystectomy: No Lung Surgery: No Neurologic Surgery: No Orthopedic Surgery: No - Immunization History Td Vaccination: Yes (unknown) Immunization Up to Date: Yes - Suicide/Smoking/Psychosocial Hx Smoking Status: Yes Smoking History: Former smoker Years of Tobacco Use: 40 Have you smoked in the past 12 months: No Number of Cigarettes Smoked Daily: 1 If you are a former smoker, when did you quit?: 06/20/16 Cigars Per Day: 0 Information on smoking cessation initiated: No 'Breaking Loose' booklet given: 01/07/18 Hx Alcohol Use: No Drug/Substance Use Hx: No Substance Use Type: None Hx Substance Use Treatment: No Review of Systems - Review of Systems Constitutional: No: Chills, Diaphoresis, Fever, Loss of Appetite HEENTM: No: Eye Pain, Blurred Vision Respiratory: Yes: Shortness of Breath, SOB with Exertion, SOB at Rest. No: Cough Cardiac (ROS): Yes: Irregular Heart Rate, Lightheadedness, Palpitations. No: Chest Pain, Syncope, Chest Tightness ABD/GI: No: Diarrhea, Nausea, Rectal Bleeding : No: Burning, Discharge, Frequency Musculoskeletal: Yes: Back Pain, Joint Pain, Joint Swelling, Muscle Weakness. No: Gout Integumentary: No: Flushing, Lesions, Lumps, Pallor Neurological: No: Headache, Numbness, Paresthesia, Tingling, Tremors Psychiatric: No: Anxiety, Depression, Frequent Crying, Stressors, Sleep Pattern Change Hematologic/Lymphatic: No: Anemia, Blood Clots *Physical Exam - Vital Signs Last Vital Signs Temp Pulse Resp BP Pulse Ox 97.9 F 56 L 18 158/89 100 03/12/18 13:07 03/12/18 13:07 03/12/18 13:07 03/12/18 13:07 03/12/18 13:07 - Physical Exam General Appearance: Yes: Nourished, Appropriately Dressed. No: Apparent Distress HEENT: positive: EOMI, PARESH, Normal ENT Inspection, Normal Voice Neck: positive: Trachea midline, Rigid, Supple. negative: Tender Respiratory/Chest: positive: Respiratory Distress (respiratory distress on movement). negative: Chest Tender, Lungs Clear, Normal Breath Sounds ( bilateral lower lung field crackles), Accessory Muscle Use Cardiovascular: positive: Irregularly Irregular. negative: Regular Rhythm, Regular Rate Gastrointestinal/Abdominal: positive: Normal Bowel Sounds, Flat, Soft. negative : Tender Lymphatic: negative: Adenopathy, Tenderness Extremity: positive: Normal Capillary Refill, Normal Inspection, Normal Range of Motion. negative: Tender Integumentary: positive: Normal Color Neurologic: positive: Fully Oriented, Alert, Normal Mood/Affect, Normal Response. negative: Motor Strength 5/5 (4/5 strength b/l LEs and 5/5 UE b/l) Moderate Sedation - Procedure Monitoring Vital Signs: Procedure Monitoring Vital Signs Temperature 97.9 F 03/12/18 13:07 Pulse Rate 56 L 03/12/18 13:07 Respiratory Rate 18 03/12/18 13:07 Blood Pressure 158/89 03/12/18 13:07 O2 Sat by Pulse Oximetry (%) 100 03/12/18 13:07 ED Treatment Course - LABORATORY CBC & Chemistry Diagram: 03/12/18 14:26 03/12/18 14:20 Medical Decision Making - Medical Decision Making 62 year old male with multiple comorbidities including COPD and CHF and baseline ambulatory dysfunction presenting with worsening lightheadedness/ pre- syncopal sensation and multiple falls over the last few days. Head CT negative, labs demonstrating CKD, hypocalcemia, and troponemia. EKG demonstrating ventricular paced rhythm rate 84, aflutter, QRS 132, QTc 486, normal axis, with av block and frequent PVCs. overall similar to previous EKG from 02/16/18. Will admit for further workup to tele. 03/12/18 19:06 *DC/Admit/Observation/Transfer Diagnosis at time of Disposition: Falls frequently, Pre-syncope - Discharge Dispostion Condition at time of disposition: Stable Decision to Admit order: Yes - Referrals Referrals: Kanu Truong MD [Primary Care Provider] - - Patient Instructions - Post Discharge Activity
[2018-03-12 14:52] LABS: BASO % 0.7 % (0-2.0); EOS % 2.2 % (0-4.5); HEMATOCRIT 35.6 % (35.4-49); HEMOGLOBIN 11.5 GM/dL (11.7-16.9); MCH 30.5 pg (25.7-33.7); MCHC 32.4 g/dl (32.0-35.9); MEAN CELL VOLUME 94.1 fl (80-96); MEAN PLT VOLUME 9.2 fl (7.5-11.1); MONO % 5.9 % (3.8-10.2); NEUT % 87.2 % (42.8-82.8); PLATELET COUNT 153 K/MM3 (134-434); RBC 3.78 M/mm3 (4.00-5.60); RDW 16.9 % (11.9-15.9); WHITE BLOOD COUNT 9.8 K/mm3 (4.0-10.0)
[2018-03-12 15:15] LABS: INR 1.15 (0.83-1.09); PROTHROMBIN TIME (PATIENT) 13.6 SEC (9.7-13.0)
--- NOTE | 2018-03-12 15:15 | PDOC ---
Attending Attestation - Resident Resident Name: Chely Pena - ED Attending Attestation I have performed the following: I have examined & evaluated the patient, The case was reviewed & discussed with the resident, I agree w/resident's findings & plan, Exceptions are as noted - Physicial Exam PE: 03/12/18 15:14 awake alert dry mucous membranes. lungs clear bilaterally right lower rib. upper abd ttp. no noted eccymosis. abd otherwise soft nondistended. ext wwp no edema. no calf tendernsss. nuero left facial palsy ( CN VII ), speech clear eomi. finger to nose normal. 5/5 bilat upper and lower ext strength. skin warm and dry. - Medical Decision Making 03/12/18 15:11 62 yo male h/o COPD (home O2 3L), CHF, HTN, HLP, AICD, A fib, CAD (on ASA and Plavix), s/p CABG, MR, bio AVR, PVD, and CKD here with multiple falls. pt states he fell twice today. he is unable to tell us why he fell. states his legs just gave out underneath. him. pt has had several falls over past few weeks. supposed to be using a walker but not using it recently. also c/o right sided chest pain/ upper abd pain. no f/c no change to urine. differential: traumatic injury such as subdural, ich, cva, rib fracture or injury, contusion. infection such as uti or pna precipitating falls, renal failure dehydration. plan labs ekg ct head cxr with rib. ua. <Consuelo Leal - Last Filed: 03/12/18 15:15> - HPI HPI: This patient is a 62 year old man with PMHx of COPD, chronic systolic CHF, HTN, HLP, O2 dependent (3 L) , AICD, A fib, CAD, s/p CABG, MR, bio AVR, PVD, CKD 3, h /o smoking, who presents with increased falls for the past 2 weeks. He states that he has been falling more frequently especially over the past 3 days and today he hit his head. He endorses shortness of breath and lightheadedness when standing up. He normally ambulates with a walker but has not been using it when he has fallen. PCP: Alexi <Kat Braxton - Last Filed: 03/12/18 15:20> Heart Score/ECG Review #1 General ECG Interpretation: Normal Rate (84) Compared to previous ECG there are: Other (TWi I, AVL, left axis. LVH , paced beats, aflutter) <Consuelo Leal - Last Filed: 03/12/18 15:15>
[2018-03-12 15:28] LABS: ALBUMIN 2.7 g/dl (3.4-5.0); ALK PHOS 83 U/L (45-117); ANION GAP 10 MMOL/L (8-16); BILIRUBIN,TOTAL 0.8 mg/dL (0.2-1); BLOOD UREA NITROGEN 46 mg/dL (7-18); CALCIUM 8.2 mg/dL (8.5-10.1); CHLORIDE 96 mmol/L (98-107); CO2 31 mmol/L (21-32); CREATININE 2.3 mg/dL (0.55-1.3); GLUCOSE,RANDOM 131 mg/dL (74-106); POTASSIUM 4.8 mmol/L (3.5-5.1); SGOT/AST 41 U/L (15-37); SGPT/ALT 14 U/L (13-61); SODIUM 136 mmol/L (136-145); TOT PROT 6.2 g/dl (6.4-8.2)
--- NOTE | 2018-03-12 19:01 | EKG ---
Test Reason : Blood Pressure : / mmHG Vent. Rate : 084 BPM Atrial Rate : 267 BPM P-R Int : 000 ms QRS Dur : 132 ms QT Int : 412 ms P-R-T Axes : 074 -37 150 degrees QTc Int : 486 ms ATRIAL FLUTTER WITH VARIABLE A-V BLOCK WITH FREQUENT ventricular-paced complexes AND WITH PREMATURE VENTRICULAR OR ABERRANTLY CONDUCTED COMPLEXES LEFT AXIS DEVIATION LEFT VENTRICULAR HYPERTROPHY WITH QRS WIDENING AND REPOLARIZATION ABNORMALITY CANNOT RULE OUT INFERIOR INFARCT , AGE UNDETERMINED ABNORMAL ECG WHEN COMPARED WITH ECG OF 16-FEB-2018 02:40, PREMATURE VENTRICULAR COMPLEXES ARE NO LONGER PRESENT VENT. RATE HAS INCREASED BY 12 BPM Confirmed by SOLITARIO PATTERSON, BERNABE ([id number]) on 03/12/2018 7:00:45 PM Referred By: Confirmed By:BERNABE JEREZ MD
--- NOTE | 2018-03-12 20:40 | PN ---
Teaching Attending Note Name of Resident: Jaymie Peña ATTENDING PHYSICIAN STATEMENT I saw and evaluated the patient. I reviewed the resident's note and discussed the case with the resident. I agree with the resident's findings and plan as documented. SUBJECTIVE: Patient is a 62 year old man with PMH of COPD (home O2 3L), chronic systolic CHF , HTN, HLP, AICD, A fib, CAD (on ASA and Plavix), s/p CABG, MR, bio AVR, PVD, and CKD 3 presenting with worse falls despite using cane with head trauma today. Patient was recently seen at our facility for COPD exacerbation and was treated with bronchodilators and steroids with good resolution of symptoms. He has been falling over the last two weeks with heavy use of his walker and intermittent use of his cane. Over the past three days he has fallen 10 times and fell today striking his head on a radiator. States that he feels very short o breath and lightheaded during his falls. Denies nay LOC or syncope. He is taking all of his medications and is on his home O2. Denies any fevers, chills, nausea, vomiting, diarrhea, or other symptoms. OBJECTIVE: Alert Vital Signs Period Temp Pulse Resp BP Sys/El Pulse Ox Last 24 Hr 97.9 F 56 18 158/89 100 HEENT: No Jaundice, eye redness or discharge, PERRLA, EOMI. Normocephalic, bump on occipital scalp. External ears are normal and hearing is grossly intact. No nasal discharge. Neck: Supple, nontender. No palpable adenopathy or thyromegaly. No JVD Chest: Good effort. Clear to auscultation and percussion. Heart: Irregularly irregular. No S3, rub or murmur Abdomen: Not distended, soft, nontender and no HSM. No rebound or guarding. Normoactive bowel sounds. Ext: Peripheral pulses intact. No leg edema. Skin: Warm and dry. No petechiae, rash or ecchymosis. Neuro: Alert. Oriented x3. CN 2-12 grossly intact. Sensation grossly intact in all four extremities and DTR are symmetric. Home Medications Medication Instructions Recorded Aspirin [Aspirin EC] 81 mg PO DAILY 06/18/15 Clopidogrel Bisulfate [Clopidogrel] 75 mg PO DAILY 06/18/15 Zolpidem Tartrate [Ambien] 10 mg PO HS 06/18/15 Psyllium [Metamucil (Sugar-Free) -] 5.85 gm PO BID #1 bottle 06/02/17 Docusate Sodium [Colace -] 100 mg PO TID #90 capsule 09/22/17 Cholecalciferol (Vitamin D3) 2,000 unit PO DAILY #30 capsule 12/25/17 [Vitamin D3] Budesonide/Formeterol Fumarate 1 puff IH DAILY inhaler 12/30/17 [SYMBICORT 160/4.5mcg -] Cyclobenzaprine HCl 5 mg PO BID #28 tablet 12/30/17 Glipizide [Glucotrol -] 5 mg PO BID 01/11/18 Carvedilol [Coreg -] 25 mg PO BID #60 tablet 02/14/18 Lactulose (Oral Use) [Cephulac -] 20 gm PO BID PRN 02/16/18 Oxycodone HCl 10 mg PO QID PRN 02/16/18 Furosemide [Lasix -] 80 mg PO DAILY 7 Days #60 tablet 02/22/18 Pantoprazole Sodium [Protonix -] 40 mg PO DAILY #14 tablet.ec 02/22/18 Tiotropium [place] [Spiriva 2 puff IH DAILY #1 inhaler 02/22/18 Respimat] predniSONE [Deltasone -] 5 mg PO ASDIR #78 tab 02/22/18 Atorvastatin Ca [Lipitor] 20 mg PO HS 02/23/18 Oxycodone HCl/Acetaminophen 1 each PO QID #120 tablet MDD 4 02/23/18 [Percocet 10-325 mg Tablet] Abnormal Lab Results 03/12/18 03/12/18 03/12/18 14:20 14:26 15:40 RBC 3.78 L Hgb 11.5 L RDW 16.9 H Absolute Neuts (auto) 8.5 H Neutrophils % 87.2 H Lymphocytes % 4.0 L PT with INR 13.60 H INR 1.15 H Chloride 96 L BUN 46 H Creatinine 2.3 H Random Glucose 131 H Calcium 8.2 L AST 41 H Troponin I 0.09 H B-Natriuretic Peptide 29220.0 H Total Protein 6.2 L Albumin 2.7 L ASSESSMENT AND PLAN: 1. Frequent Falls - Etiology unclear though he has Afib. No acute pathology on head CT. Has chronic troponin elevation but no significant ST-T wave changes on EKG. Will admit to telemetry to rule out ACS. Will get brain MRI, carotid doppler, ECHO, interrogate defibrillator and get Urinalysis. Implement fall precautions and consult cardiology, neurology and PT. 2. Hypoalbuminemia - Possibly due to combined effects of malnutrition and inflammation associated with comorbid chronic conditions. Will rule out proteinuria and ensure adequate dietary protein intake and also consult butt maker. 3. DM - For now, we will hold the home diabetes drugs and implement sliding scale insulin regimen. Provide comprehensive diabetes care with patient teaching and counseling about the importance of euglycemia, eye care and foot care. 4. CKD - Has risk factors for CKD. Unclear if he has had nephrologic workup. Will consult nephrology and avoid nephrotoxic agents such as NSAIDS, aminoglycosides, contrast dyes and certain Alternative medicine products. 5. DVT prophylaxis - Heparin 5000u sq tid. 6. Advance directives - Full code
--- NOTE | 2018-03-12 22:34 | HP ---
CHIEF COMPLAINT: fall PCP: HISTORY OF PRESENT ILLNESS: This is a 62 year old male with a COPD on 3L home O2, CHF, CAD, PAD, DM who presents tot he ER s/p fall at home. History given by patient. Unclear exactly how he fell. States he was laying in bed, he went to get up to go tot he bathroom and his "legs gave out." He does not remember falling to the ground. HE endorses hitting the back of his head. This was unwitnessed. HE denies LOC, tongue biting, urine or bowel incintinence, arm weakness or decreased sensation , chest pain, blurry vision, lightheadedness. He has been having increased falls lately, and now just started using a cane/walker. 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 ER course was notable for: chronic elevation of troponon, bnp, creatinine Recent Travel: no PAST MEDICAL HISTORY: atrial fibrillation ICD, pacemaker, HTN, HLA< CHF< CAD<LUONG, DM<COPD PAST SURGICAL HISTORY: CABG Social History: Smoking:quit seven months ago Alcohol:no Drugs: no Family History: Allergies Fish Containing Products Allergy (Verified 03/12/18 13:30) codeine Adverse Reaction (Intermediate, Verified 03/12/18 13:30) Vomiting gabapentin Adverse Reaction (Intermediate, Verified 03/12/18 13:30) dizzy HOME MEDICATIONS: Home Medications Medication Instructions Recorded Aspirin [Aspirin EC] 81 mg PO DAILY 06/18/15 Clopidogrel Bisulfate [Clopidogrel] 75 mg PO DAILY 06/18/15 Zolpidem Tartrate [Ambien] 10 mg PO HS 06/18/15 Psyllium [Metamucil (Sugar-Free) -] 5.85 gm PO BID #1 bottle 06/02/17 Docusate Sodium [Colace -] 100 mg PO TID #90 capsule 09/22/17 Cholecalciferol (Vitamin D3) 2,000 unit PO DAILY #30 capsule 12/25/17 [Vitamin D3] Budesonide/Formeterol Fumarate 1 puff IH DAILY inhaler 12/30/17 [SYMBICORT 160/4.5mcg -] Cyclobenzaprine HCl 5 mg PO BID #28 tablet 12/30/17 Glipizide [Glucotrol -] 5 mg PO BID 01/11/18 Carvedilol [Coreg -] 25 mg PO BID #60 tablet 02/14/18 Lactulose (Oral Use) [Cephulac -] 20 gm PO BID PRN 02/16/18 Oxycodone HCl 10 mg PO QID PRN 02/16/18 Furosemide [Lasix -] 80 mg PO DAILY 7 Days #60 tablet 02/22/18 Pantoprazole Sodium [Protonix -] 40 mg PO DAILY #14 tablet.ec 02/22/18 Tiotropium [place] [Spiriva 2 puff IH DAILY #1 inhaler 02/22/18 Respimat] predniSONE [Deltasone -] 5 mg PO ASDIR #78 tab 02/22/18 Atorvastatin Ca [Lipitor] 20 mg PO HS 02/23/18 Oxycodone HCl/Acetaminophen 1 each PO QID #120 tablet MDD 4 02/23/18 [Percocet 10-325 mg Tablet] REVIEW OF SYSTEMS CONSTITUTIONAL: Absent: fever, chills, diaphoresis, generalized weakness, malaise, loss of appetite, weight change HEENT: Absent: rhinorrhea, nasal congestion, throat pain, throat swelling, difficulty swallowing, mouth swelling, ear pain, eye pain, visual changes CARDIOVASCULAR: Absent: chest pain, syncope, palpitations, irregular heart rate, lightheadedness , peripheral edema RESPIRATORY: Positive chronic cough, sob, on o2 Absent: orthopnea, wheezing, stridor, hemoptysis GASTROINTESTINAL: Absent: abdominal pain, abdominal distension, nausea, vomiting, diarrhea, constipation, melena, hematochezia GENITOURINARY: Absent: dysuria, frequency, urgency, hesitancy, hematuria, flank pain, genital pain MUSCULOSKELETAL: POSitive: back pain, arthralgia, leg weakness Absent: myalgia, joint swelling, neck pain SKIN: Absent: rash, itching, pallor HEMATOLOGIC/IMMUNOLOGIC: Absent: easy bleeding, easy bruising, lymphadenopathy, frequent infections ENDOCRINE: Absent: unexplained weight gain, unexplained weight loss, heat intolerance, cold intolerance NEUROLOGIC: POsitivel unsteady gait Absent: headache, focal weakness or paresthesias, dizziness, seizure, mental status changes, bladder or bowel incontinence PSYCHIATRIC: Absent: anxiety, depression, suicidal or homicidal ideation, hallucinations. PHYSICAL EXAMINATION Vital Signs - 24 hr 03/12/18 13:07 Temperature 97.9 F Pulse Rate 56 L Respiratory 18 Rate Blood Pressure 158/89 O2 Sat by Pulse 100 Oximetry (%) GENERAL: Awake, alert, and fully oriented, in no acute distress. HEAD: right back of head lump; no open laceration EYES: Pupils equal, round and reactive to light, extraocular movements intact, sclera anicteric, conjunctiva clear. No lid lag. EARS, NOSE, THROAT: Ears normal, nares patent, oropharynx clear without exudates. Moist mucous membranes. NECK: Normal range of motion, supple without lymphadenopathy, JVD, or masses. LUNGS: decreased breath sounds throughout lung hernandez HEART: Regular rate and irregular rhythm, normal S1 and S2 without murmur, rub or gallop. ABDOMEN: Soft, nontender, not distended, normoactive bowel sounds, no guarding, no rebound, no masses. No hepatomegaly or splenomegaly. MUSCULOSKELETAL: Normal range of motion at all joints. No bony deformities or tenderness. No CVA tenderness. UPPER EXTREMITIES: 2+ pulses, warm, well-perfused. No cyanosis. No clubbing. No peripheral edema. LOWER EXTREMITIES: 2+ pulses, warm, well-perfused. No calf tenderness. No peripheral edema. NEUROLOGICAL: Cranial nerves II-XII intact. Normal speech. gait not observed; equal sensation throughout; upper extremity motor 5/5; LE motor flex/extension foot 5/5 PSYCHIATRIC: Cooperative. Good eye contact. Appropriate mood and affect. SKIN: Warm, dry, normal turgor, no rashes or lesions noted, normal capillary refill. Laboratory Results - last 24 hr 03/12/18 03/12/18 03/12/18 14:20 14:26 15:40 WBC 9.8 RBC 3.78 L Hgb 11.5 L Hct 35.6 MCV 94.1 MCH 30.5 MCHC 32.4 RDW 16.9 H Plt Count 153 MPV 9.2 Absolute Neuts (auto) 8.5 H Neutrophils % 87.2 H Lymphocytes % 4.0 L Monocytes % 5.9 Eosinophils % 2.2 D Basophils % 0.7 D Nucleated RBC % 0 PT with INR 13.60 H INR 1.15 H Sodium 136 Potassium 4.8 Chloride 96 L Carbon Dioxide 31 Anion Gap 10 BUN 46 H Creatinine 2.3 H Creat Clearance w eGFR 28.96 Random Glucose 131 H Calcium 8.2 L Total Bilirubin 0.8 AST 41 H ALT 14 Alkaline Phosphatase 83 Creatine Kinase 76 Troponin I 0.09 H B-Natriuretic Peptide 05044.0 H Total Protein 6.2 L Albumin 2.7 L Current Medications Generic Name Dose Route Start Last Admin Trade Name Freq PRN Reason Stop Dose Admin Acetaminophen 325 mg 03/13/18 00:00 Tylenol - PO Q6HPO [facility] Aspirin 81 mg 03/13/18 10:00 Ecotrin - PO DAILY [facility] Atorvastatin Calcium 20 mg 03/13/18 22:00 Lipitor - PO HS [facility] Budesonide/Formoterol Fumarate 2 puff 03/13/18 10:00 Symbicort 160/4.5mcg - IH BID [facility] Carvedilol 25 mg 03/13/18 10:00 Coreg - PO BID [facility] Clopidogrel Bisulfate 75 mg 03/13/18 10:00 Plavix - PO DAILY [facility] Cyclobenzaprine HCl 5 mg 03/13/18 10:00 Cyclobenzaprine Hcl PO BID [facility] Docusate Sodium 100 mg 03/13/18 06:00 Colace - PO TID [facility] Furosemide 80 mg 03/13/18 10:00 Lasix - PO DAILY [facility] Heparin Sodium (Porcine) 5,000 unit 03/12/18 23:00 Heparin - SQ TID [facility] Insulin Aspart 1 vial 03/13/18 07:00 Novolog Vial Sliding Scale - SQ ACHS [facility] Protocol Lactulose 20 gm 03/12/18 22:37 Cephulac (Oral Use) PO BID PRN CONSTIPATION Oxycodone HCl 10 mg 03/12/18 22:37 Roxicodone - PO Q6H PRN PAIN LEVEL 6-10 Oxycodone HCl 10 mg 03/13/18 00:00 Roxicodone - PO Q6HPO [facility] Pantoprazole Sodium 40 mg 03/13/18 10:00 Protonix - PO DAILY [facility] Prednisone 5 mg 03/13/18 10:00 Deltasone - PO DAILY [facility] Psyllium Hydrophilic Mucilloid 5.85 gm 03/13/18 10:00 Metamucil (Sugar-Free) - PO BID [facility] Tiotropium [place] 2 puff 03/13/18 10:00 Spiriva Respimat IH DAILY [facility] Zolpidem Tartrate 10 mg 03/13/18 22:00 Ambien - PO HS PRN INSOMNIA ASSESSMENT/PLAN: This is a 62 year old male with a history of COPD on home o2, CHF, atrial fibrillation, CAD, PAD, HTN, DM, who presents with frequent falls, r/u syncope, CVA, ACS, arrhythmia, orthostatic hypotension, metabolic disturbance, hypoglycemia/hyperglycemia, mechanical. #fall; multiple etiology r/o causes listed above -cbc, cmp, ua -ecg, -cxr -head CT negative for acute bleed or pathology -f/u with brain MRI -carotid doppler -echocardiogram -interrogation -fall precautions -PT -cardio consult -neurology consult #DM: -insuin ss -bgm #atrial fibrillation -rate controlled -asa/plavix #CKD: -at baseline; creatinine 2.3 today -avoid nephrotoxic agens #COPD: stable -cont O2 3L -inhaled broncodilators -chronic steroids 5mg ? #CHF: -cont lasix #CAD VTE: heparin GI: protonix Disposition: obs tele Visit type - Emergency Visit Emergency Visit: Yes Care time: The patient presented to the Emergency Department on the above date and was hospitalized for further evaluation of their emergent condition. - New Patient This patient is new to me today: Yes Date on this admission: 03/13/18 - Critical Care Critical Care patient: No
[2018-03-12] MEDS ORDERED: oxyCODONE HCL 5 MG TABLET PO PRN (22:37)
[2018-03-12] MEDS ORDERED: LACTULOSE 20 GM/30 ML UDC (FOR ORAL USE ONLY) PO PRN (22:37)
[2018-03-13] MEDS ORDERED: HEPARIN NA (PORCINE) 5,000 UNITS/ML 1ML VIAL ONE (00:12)
[2018-03-13] MEDS: HEPARIN NA (PORCINE) 5,000 UNITS/ML 1ML VIAL SQ SCH ×4 (00:22→21:50)
[2018-03-13 01:54] LABS: URINE APPEARANCE CLEAR; URINE BILIRUBIN NEGATIVE (<2.0 mg/dL); URINE COLOR YELLOW; URINE GLUCOSE (UA) NEGATIVE (NEGATIVE); URINE KETONE NEGATIVE (NEGATIVE); URINE LEUK ESTERASE NEGATIVE (NEGATIVE); URINE NITRITE NEGATIVE (NEGATIVE); URINE PROTEIN 3+ (NEGATIVE)
[2018-03-13] MEDS ORDERED: oxyCODONE HCL 5 MG TABLET ONE (02:03)
[2018-03-13] MEDS ORDERED: ACETAMINOPHEN 325 MG TABLET (FP) ONE (02:03)
[2018-03-13] MEDS: oxyCODONE HCL 5 MG TABLET PO SCH ×4 (02:17→17:41)
[2018-03-13] MEDS: ACETAMINOPHEN 325 MG TABLET (FP) PO SCH ×4 (02:18→17:41)
[2018-03-13 02:37] LABS: URINE BACTERIA RARE /hpf (NONE SEEN); URINE HYALINE CAST 1 /lpf
[2018-03-13] MEDS: DOCUSATE SODIUM 100 MG CAPSULE (FP) PO SCH ×3 (06:23→21:50)
[2018-03-13] MEDS: INSULIN SLIDING SCALE (NOVOLOG) 1 VIAL SQ SCH ×4 (06:48→21:55)
[2018-03-13 08:15] LABS: BASO % 0.8 % (0-2.0); EOS % 6.2 % (0-4.5); HEMATOCRIT 31.7 % (35.4-49); HEMOGLOBIN 10.5 GM/dL (11.7-16.9); LYMPH % 12.7 % (8-40); MCH 30.9 pg (25.7-33.7); MEAN CELL VOLUME 93.7 fl (80-96); MEAN PLT VOLUME 9.1 fl (7.5-11.1); MONO % 9.6 % (3.8-10.2); NEUT % 70.7 % (42.8-82.8); PLATELET COUNT 141 K/MM3 (134-434); RBC 3.39 M/mm3 (4.00-5.60); RDW 15.9 % (11.9-15.9); WHITE BLOOD COUNT 6.2 K/mm3 (4.0-10.0)
--- NOTE | 2018-03-13 08:37 | PN ---
Progress Note, Physician Chief Complaint: Feels better enjoying break fast History of Present Illness: 62 year old man with PMH of COPD (home O2 3L), chronic systolic CHF, HTN, HLP, AICD, A fib, CAD (on ASA and Plavix), s/p CABG, MR, bio AVR, PVD, and CKD 3 presenting with worse falls Over the past three days he has fallen 10 times and fell today striking his head on a radiator. head CT a normal - Current Medication List Current Medications: Active Medications Acetaminophen (Tylenol -) 325 mg PO Q6HPO [facility] Last Admin: 03/13/18 06:23 Dose: 325 mg Aspirin (Ecotrin -) 81 mg PO DAILY [facility] Atorvastatin Calcium (Lipitor -) 20 mg PO HS [facility] Budesonide/Formoterol Fumarate (Symbicort 160/4.5mcg -) 2 puff IH BID [facility] Carvedilol (Coreg -) 25 mg PO BID [facility] Clopidogrel Bisulfate (Plavix -) 75 mg PO DAILY [facility] Cyclobenzaprine HCl (Cyclobenzaprine Hcl) 5 mg PO BID [facility] Docusate Sodium (Colace -) 100 mg PO TID [facility] Last Admin: 03/13/18 06:23 Dose: 100 mg Furosemide (Lasix -) 80 mg PO DAILY [facility] Heparin Sodium (Porcine) (Heparin -) 5,000 unit SQ TID [facility] Last Admin: 03/13/18 06:23 Dose: 5,000 unit Insulin Aspart (Novolog Vial Sliding Scale -) 1 vial SQ [facility]; Protocol Last Admin: 03/13/18 06:48 Dose: Not Given Lactulose (Cephulac (Oral Use)) 20 gm PO BID PRN PRN Reason: CONSTIPATION Oxycodone HCl (Roxicodone -) 10 mg PO Q6H PRN PRN Reason: PAIN LEVEL 6-10 Oxycodone HCl (Roxicodone -) 10 mg PO Q6HPO [facility] Last Admin: 03/13/18 06:24 Dose: 10 mg Pantoprazole Sodium (Protonix -) 40 mg PO DAILY [facility] Prednisone (Deltasone -) 5 mg PO DAILY [facility] Psyllium Hydrophilic Mucilloid (Metamucil (Sugar-Free) -) 5.85 gm PO BID [facility] Tiotropium [place] (Spiriva Respimat) 2 puff IH DAILY [facility] Zolpidem Tartrate (Ambien -) 10 mg PO HS PRN PRN Reason: INSOMNIA - Objective Vital Signs: Vital Signs Temperature 98 F 03/13/18 06:00 Pulse Rate 69 03/13/18 06:00 Respiratory Rate 19 03/13/18 06:00 Blood Pressure 135/81 03/13/18 06:00 O2 Sat by Pulse Oximetry (%) 99 03/13/18 02:38 Elderly man not in distress HEENT: Mm moist, no anemia, NECK: No JVd No Bruit CHEST: Minimal basal crepts CVS: S1S2 SM + ABD: No distention, non tender Bs + EXT: multiple bruises and abrasions trace edema, 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 [employer] EDUCATION: AOX3 non focal Labs: CBC, BMP 03/13/18 06:50 INR, PTT INR 1.15 (0.83-1.09) H 03/12/18 15:40 Problem List - Problems (1) Falls frequently Assessment/Plan: Due to gait instability and , needs PT evaluation and home modification if possible to avoid fall and potentia;l traum Code(s): R29.6 - REPEATED FALLS (2) Afib Assessment/Plan: Rtae controlled Ac on Held for risk of trauma , consider resume Ac as out patient once gait stability improves Code(s): I48.91 - UNSPECIFIED ATRIAL FIBRILLATION Qualifiers: Atrial fibrillation type: chronic Qualified Code(s): I48.2 - Chronic atrial fibrillation (3) Chronic respiratory failure Assessment/Plan: On Home O2 and Bronchodilators saturating at his base line no active issue Code(s): J96.10 - CHRONIC RESPIRATORY FAILURE, UNSP W HYPOXIA OR HYPERCAPNIA (4) CAD (coronary artery disease) Assessment/Plan: S/P CABG will cont home meds including Statin , ASA and B Blockers mild elevation of Trop I but trend is Flat no acute St T changes denies any chest pain. Code(s): I25.10 - ATHSCL HEART DISEASE OF [place] CORONARY ARTERY W/O ANG PCTRS Qualifiers: [place] vs. transplanted heart: [place] heart Associated angina: without angina (5) CHF (congestive heart failure) Assessment/Plan: Systolic HF s/P AICD no recent fire on PO Lasix, Coreg not of ARBS or ACEI de to advanced renal failure Code(s): I50.9 - HEART FAILURE, UNSPECIFIED Qualifiers: Heart failure type: systolic Heart failure chronicity: chronic Qualified Code(s): I50.22 - Chronic systolic (congestive) heart failure (6) Diabetes mellitus with chronic kidney disease Assessment/Plan: Cont home meds, optimize Glycemic control Code(s): E11.22 - TYPE 2 DIABETES MELLITUS W DIABETIC CHRONIC KIDNEY DISEASE; N18.9 - CHRONIC KIDNEY DISEASE, UNSPECIFIED Qualifiers: Diabetes mellitus type: type 2 Chronic kidney disease stage: stage 3 ( moderate) (7) HTN (hypertension) Assessment/Plan: Well controlled on current meds Code(s): I10 - ESSENTIAL (PRIMARY) HYPERTENSION Qualifiers: Hypertension type: essential hypertension Qualified Code(s): I10 - Essential (primary) hypertension (8) Pulmonary hypertension Assessment/Plan: Chronic Code(s): I27.2 - OTHER SECONDARY PULMONARY HYPERTENSION * DO NOT USE * (9) Diabetic neuropathy, type II diabetes mellitus Assessment/Plan: Optimize Glycemic control Code(s): E11.49 - TYPE 2 DIABETES W OTH DIABETIC NEUROLOGICAL COMPLICATION (10) COPD (chronic obstructive pulmonary disease) Assessment/Plan: Cont Home meds Code(s): J44.9 - CHRONIC OBSTRUCTIVE PULMONARY DISEASE, UNSPECIFIED
[2018-03-13 08:51] LABS: INR 1.23 (0.83-1.09); PROTHROMBIN TIME (PATIENT) 14.5 SEC (9.7-13.0)
--- NOTE | 2018-03-13 09:07 | CON.CARD ---
Consult Consult Specialty:: cardio - History of Present Illness Chief Complaint: falls History of Present Illness: 62 M here with frequent falls. on DOA he got oob in AM to go to urinate. on way to bathroom he fell. poor historian, uncertain of details. thinks he recalls feeling legs give out and thinks he recalls hitting floor but uncertain. doesn't think he lost consciousness but cannot guarantee this. denies cp, sob, palpitations or new neuro deficit. happened multiple times in recent days/weeks. denies any etoh use h/o CAD with CABG syst CHF MV dz/MR aflutter CKD - Past Medical History Cardio/Vascular: Yes: AFIB (after CABG briefly; not on AC), CAD, CHF (systolic) , HTN, Mitral Insufficiency, Other (bioprosthetic AVR, CABG, PVD, s/p AICD, MR) Pulmonary: Yes: Bronchitis, COPD, O2 Dependent (3 L), Pneumonia Gastrointestinal: Yes: Constipation Renal/: Yes: Renal Inusuff (satge 3) Endocrine: Yes: Diabetes Mellitus - Past Surgical History Past Surgical History: Yes: AICD, CABG - Alcohol/Substance Use Hx Alcohol Use: No History of Substance Use: reports: None, Cocaine - Smoking History Smoking history: Former smoker Have you smoked in the past 12 months: No Aproximately how many cigarettes per day: 1 If you are a former smoker, when did you quit?: 06/20/16 - Social History Usual Living Arrangement: With Spouse ADL: Independent History of Recent Travel: No Home Medications - Allergies Allergies/Adverse Reactions: Allergies Allergy/AdvReac Type Severity Reaction Status Date / Time Fish Containing Products Allergy Verified 03/12/18 13:30 codeine AdvReac Intermediate Vomiting Verified 03/12/18 13:30 gabapentin AdvReac Intermediate dizzy Verified 03/12/18 13:30 - Home Medications Home Medications: Ambulatory Orders Aspirin [Aspirin EC] 81 mg PO DAILY 06/18/15 Clopidogrel Bisulfate [Clopidogrel] 75 mg PO DAILY 06/18/15 Zolpidem Tartrate [Ambien] 10 mg PO HS 06/18/15 Psyllium [Metamucil (Sugar-Free) -] 5.85 gm PO BID #1 bottle 06/02/17 Docusate Sodium [Colace -] 100 mg PO TID #90 capsule 09/22/17 Cholecalciferol (Vitamin D3) [Vitamin D3] 2,000 unit PO DAILY #30 capsule Budesonide/Formeterol Fumarate [SYMBICORT 160/4.5mcg -] 1 puff IH DAILY inhaler 12/30/17 Cyclobenzaprine HCl 5 mg PO BID #28 tablet 12/30/17 Glipizide [Glucotrol -] 5 mg PO BID 01/11/18 Carvedilol [Coreg -] 25 mg PO BID #60 tablet 02/14/18 Lactulose (Oral Use) [Cephulac -] 20 gm PO BID PRN 02/16/18 Oxycodone HCl 10 mg PO QID PRN 02/16/18 Furosemide [Lasix -] 80 mg PO DAILY 7 Days #60 tablet 02/22/18 Pantoprazole Sodium [Protonix -] 40 mg PO DAILY #14 tablet.ec 02/22/18 Tiotropium [place] [Spiriva Respimat] 2 puff IH DAILY #1 inhaler 02/22/18 predniSONE [Deltasone -] 5 mg PO ASDIR #78 tab 02/22/18 Atorvastatin Ca [Lipitor] 20 mg PO HS 02/23/18 Oxycodone HCl/Acetaminophen [Percocet 10-325 mg Tablet] 1 each PO QID #120 tablet MDD 4 02/23/18 Family Disease History - Family Disease History Family Disease History: Heart Disease: Father (etoh), Mother (, cva), Other: Brother (alive - Ramírez - hx etoh), Sister (five - alive - no medical problems), Son (two adults - no problems) Review of Systems - Review of Systems Constitutional: denies: Chills, Fever Eyes: denies: Eye Pain HENT: denies: Nasal Congestion Neck: denies: Stiffness Cardiovascular: denies: Palpitations Respiratory: denies: Orthopnea, PND Gastrointestinal: denies: Diarrhea, Rectal Bleeding Genitourinary: denies: Burning, Hematuria Musculoskeletal: denies: Muscle Pain Integumentary: denies: Rash Neurological: denies: Numbness, Seizure, Syncope Endocrine: denies: Excessive Sweating Hematology/Lymphatic: denies: Excessive Bleeding Vital Signs: Vital Signs Temperature 98 F 03/13/18 06:00 Pulse Rate 69 03/13/18 06:00 Respiratory Rate 19 03/13/18 06:00 Blood Pressure 135/81 03/13/18 06:00 O2 Sat by Pulse Oximetry (%) 99 03/13/18 02:38 Constitutional: Yes: Well Nourished, No Distress Eyes: No: Sclera Icterus HENT: No: Nasal Congestion Neck: No: Decreased ROM Respiratory: Yes: CTA Bilaterally. No: Accessory Muscle Use, Rales, Wheezes Gastrointestinal: Yes: Normal Bowel Sounds. No: Distention, Hepatomegaly, Palpable Mass, Tenderness Cardiovascular: Yes: Regular Rate and Rhythm JVD: No Carotid Bruit: No PMI: Non-Displaced Heart Sounds: Yes: S1, S2. No: Gallop Murmur: No: Systolic Murmur, Diastolic Murmur Musculoskeletal: Yes: Other (No kyphosis) Extremities: No: Cold, Cyanosis Edema: No Peripheral Pulses: 2+ Left Carotid, 2+ Right Carotid, 2+ Left Doralis Pedis, 2+ Right Dorsalis Pedis Integumentary: No: Jaundice Neurological: Yes: Alert, Oriented (x3) Psychiatric: No: Agitated - Other Data Labs, Other Data: CBC, BMP 03/13/18 06:50 INR, PTT INR 1.23 (0.83-1.09) H 03/13/18 06:50 Troponin, BNP 03/12/18 03/13/18 14:20 00:20 Troponin I 0.09 H 0.11 H B-Natriuretic Peptide 70107.0 H Troponin, BNP 03/12/18 03/13/18 14:20 00:20 Troponin I 0.09 H 0.11 H B-Natriuretic Peptide 50397.0 H Laboratory Tests 03/12/18 03/13/18 03/13/18 14:20 00:20 06:50 WBC 6.2 Hgb 10.5 L Plt Count 141 Sodium 136 Potassium 4.8 Carbon Dioxide 31 BUN 46 H Creatinine 2.3 H AST 41 H ALT 14 Troponin I 0.09 H 0.11 H B-Natriuretic Peptide 36126.0 H Albumin 2.7 L Assessment/Plan ECG: AFL, intermittent V-S/V-P, + ST-Ts unchanged vs prior 02/21 CXR: chronic changes L base c/w atx vs infiltrate--no change echo 06/2016: sev dec lvef, global hk, rv tds, trinity, mod-sev mr, mod tr, rvsp 50- 60 echo 06/2015: mild lve, mod-sev dec lvef, mod lae, nl rv size, mild dec rv fcn, mild-mod mr, mild tr, nl avr fcn, rvsp 30-40 mibi 06/2016 (pers): non-diagnostic STs; large area inferior/inferolateral/ lateral scar; no ischemia; severe LV cavity dilation; global HK with akinesis of inferior/inferolat/lateral allan; EF 16% mibi 09/2014: large inf scar, mod anteroapical ischemia, lvef 25% tele: AFL, Vs/[employer]. NSVT x 8b a/p: 62 m hx copd, cabgx3 2012, bio avr 2012, pad s/p b/l sfa occlusions, syst chf s/p medtronic icd, htn, hld, a-tach, here with back pain, sob. repeated falls: -very frequent falls recently including head trauma -suspected LE weakness with mechanical falls etiology, though pt cannot give completely reassuring history -no appreciated ICD shocks--will interrogate device -check orthostatic VSs -CT head no acute pathology here. pt with atrial flutter and not anticoagulated- -await neuro c/s to r/o suspicion of CVA/TIA (no AC for now, as below) -PT eval, dispo per hospitalist atrial flutter: -pt in AFL on ekg, similar to tele on recent admits -CHADS VASC 4, warrants AC for cardioembolic prophylaxis. pt is at prohibitive risks of falls/head trauma at present. will defer AC. -should f/u with dr tang as outpt to reassess risks/benefits once PT and living situation is addressed to hopefully minimize falls risk. LA appendage closure (Watchman) can be considered as well, given pt's risk of hemopericardium is essentially zero with prior CABG surgery. chronic systolic CHF exacerbation -recent dry wt here 187 lbs (02/21). no wts here--to start -BNP 19K, c/w chronic range (7K-30K) -clinically euvolemic -stable vol status, cont po lasix 80 qd home dose -cont carvedilol. not on ACEI due to h/o hyperkalemia cad/hx of CABG 2012 -no recent angina/ischemia -trop chronically 0.09-0.12 range with flat trend sec to chronic CHF--unchanged here -present sx's of mult falls not in the least concerning for acute myocardial ischemia process. pt admitted to telemetry for unchanged, chronic ECG abnormalities--d/c tele -cont prior cad med regimen: dapt, statin, bb, ccb -unclear why on DAPT with no prior stents (? had remote stents before cabg that are not fully protected by grafts...). given falls/bleeding risk, will need to clarify indication with dr tang and consider d/c plavix if not mandatory here VT: -nonsustained VT on tele, has ICD in place -brief episode -presentation currently not suspicious for VT/ICD shocks as etiology. will arrange for device interrogation here -K > 4, Mag >2 -cont bb as doing bio avr: -nl fcn on echo 06/20 mitral regurgitation: -likely functional MR, mild-mod on echo 06/19, then "mod-severe" when here 06/20 with suspected acute chf and pulm pressures up (though at risk for overestimation of MR severity on that echo report) -valve morphology not described (tethered leaflets?) -no murmur on exam -reassess MR severity on echo as outpt CKD: -baseline creatinine 2-2.5; -renal fxn stable here pad: -stable, no claudication, cont current cardiac meds s/p icd: -no shocks -routine outpt monitoring htn: -bp stable -cont home meds DM: -per hospitalist
[2018-03-13] MEDS: CARVEDILOL 25 MG TABLET (FP) PO SCH ×2 (09:26→21:50)
[2018-03-13] MEDS: FUROSEMIDE 40 MG TABLET (FP) PO SCH (09:26)
[2018-03-13] MEDS: predniSONE 5 MG TABLET (UD) PO SCH (09:26)
[2018-03-13] MEDS: CLOPIDOGREL BISULFATE 75 MG TABLET (FP) PO SCH (09:26)
[2018-03-13] MEDS: PANTOPRAZOLE 40 MG TABLET (FP) PO SCH (09:26)
[2018-03-13] MEDS: ASPIRIN COATED 81 MG TABLET.EC PO SCH (09:26)
[2018-03-13] MEDS: BUDESONIDE/FORMETEROL FUMARATE 160/4.5 mcg INHALER IH SCH ×2 (09:40→21:51)
[2018-03-13] MEDS: TIOTROPIUM BROMIDE 2.5 MCG (SPIRIVA) RESPIMAT INHALER IH SCH (09:41)
[2018-03-13] MEDS: PSYLLIUM 5.85 GM PACKET PO SCH ×2 (09:42→21:50)
[2018-03-13 09:54] LABS: ALBUMIN 2.5 g/dl (3.4-5.0); ALK PHOS 68 U/L (45-117); ANION GAP 13 MMOL/L (8-16); BILIRUBIN,TOTAL 0.6 mg/dL (0.2-1); BLOOD UREA NITROGEN 45 mg/dL (7-18); CALCIUM 8.2 mg/dL (8.5-10.1); CHLORIDE 98 mmol/L (98-107); CO2 29 mmol/L (21-32); CREATININE 2.3 mg/dL (0.55-1.3); GLUCOSE,RANDOM 98 mg/dL (74-106); MAGNESIUM 1.9 mg/dL (1.8-2.4); PHOSPHOROUS 3.5 mg/dL (2.5-4.9); POTASSIUM 3.4 mmol/L (3.5-5.1); SGOT/AST 15 U/L (15-37); SGPT/ALT 9 U/L (13-61); SODIUM 140 mmol/L (136-145); TOT PROT 5.5 g/dl (6.4-8.2)
[2018-03-13] MEDS: CYCLOBENZAPRINE HCL 5 MG TABLET PO SCH ×2 (10:00→21:50)
[2018-03-13] MEDS: POTASSIUM CHLORIDE TABS 20 MEQ TABLET.ER (FP) PO SCH (12:56)
--- NOTE | 2018-03-13 14:15 | CON.NEURO ---
Consult - Past Medical History Cardio/Vascular: Yes: AFIB (after CABG briefly; not on AC), CAD, CHF (systolic) , HTN, Mitral Insufficiency, Other (bioprosthetic AVR, CABG, PVD, s/p AICD, MR) Pulmonary: Yes: Bronchitis, COPD, O2 Dependent (3 L), Pneumonia Gastrointestinal: Yes: Constipation Renal/: Yes: Renal Inusuff (satge 3) Endocrine: Yes: Diabetes Mellitus - Past Surgical History Past Surgical History: Yes: AICD, CABG - Alcohol/Substance Use Hx Alcohol Use: No History of Substance Use: reports: None, Cocaine - Smoking History Smoking history: Former smoker Have you smoked in the past 12 months: No Aproximately how many cigarettes per day: 1 If you are a former smoker, when did you quit?: 06/20/16 - Social History Usual Living Arrangement: With Spouse ADL: Independent History of Recent Travel: No Home Medications - Allergies Allergies/Adverse Reactions: Allergies Allergy/AdvReac Type Severity Reaction Status Date / Time Fish Containing Products Allergy Verified 03/12/18 13:30 codeine AdvReac Intermediate Vomiting Verified 03/12/18 13:30 gabapentin AdvReac Intermediate dizzy Verified 03/12/18 13:30 - Home Medications Home Medications: Ambulatory Orders Aspirin [Aspirin EC] 81 mg PO DAILY 06/18/15 Clopidogrel Bisulfate [Clopidogrel] 75 mg PO DAILY 06/18/15 Zolpidem Tartrate [Ambien] 10 mg PO HS 06/18/15 Psyllium [Metamucil (Sugar-Free) -] 5.85 gm PO BID #1 bottle 06/02/17 Docusate Sodium [Colace -] 100 mg PO TID #90 capsule 09/22/17 Cholecalciferol (Vitamin D3) [Vitamin D3] 2,000 unit PO DAILY #30 capsule Budesonide/Formeterol Fumarate [SYMBICORT 160/4.5mcg -] 1 puff IH DAILY inhaler 12/30/17 Cyclobenzaprine HCl 5 mg PO BID #28 tablet 12/30/17 Glipizide [Glucotrol -] 5 mg PO BID 01/11/18 Carvedilol [Coreg -] 25 mg PO BID #60 tablet 02/14/18 Lactulose (Oral Use) [Cephulac -] 20 gm PO BID PRN 02/16/18 Oxycodone HCl 10 mg PO QID PRN 02/16/18 Furosemide [Lasix -] 80 mg PO DAILY 7 Days #60 tablet 02/22/18 Pantoprazole Sodium [Protonix -] 40 mg PO DAILY #14 tablet.ec 02/22/18 Tiotropium [place] [Spiriva Respimat] 2 puff IH DAILY #1 inhaler 02/22/18 predniSONE [Deltasone -] 5 mg PO ASDIR #78 tab 02/22/18 Atorvastatin Ca [Lipitor] 20 mg PO HS 02/23/18 Oxycodone HCl/Acetaminophen [Percocet 10-325 mg Tablet] 1 each PO QID #120 tablet MDD 4 02/23/18 Family Disease History - Family Disease History Family Disease History: Heart Disease: Father (etoh), Mother (, cva), Other: Brother (alive - Ramírez - hx etoh), Sister (five - alive - no medical problems), Son (two adults - no problems) Physical Exam-Neuro Vital Signs: Vital Signs Temperature 97.8 F 03/13/18 10:00 Pulse Rate 62 03/13/18 10:00 Respiratory Rate 18 03/13/18 10:00 Blood Pressure 135/68 03/13/18 10:00 O2 Sat by Pulse Oximetry (%) 97 03/13/18 09:00 Labs: CBC, BMP 03/13/18 06:50 03/13/18 06:50 INR, PTT INR 1.23 (0.83-1.09) H 03/13/18 06:50 Assessment/Plan cc Episode of fall yesterday HPI 62 year old male history of COPD, CHF, CAD, PAD, came to hospital with fall. He went to bathroom early in morning and had episode of fall. He denies any feeling dizzy or vertigo sensation. He is feeling better. He denies any back pain or any neck pain before this fall. He do not have any tingling or numbness before the fall. He can move his leg and no sensory difficulty in leg. He is moving around. ct scan of brain was normal. no change in his medication recently. PMH as above Allergies Fish Containing Products Allergy (Verified 03/12/18 13:30) codeine Adverse Reaction (Intermediate, Verified 03/12/18 13:30) Vomiting gabapentin Adverse Reaction (Intermediate, Verified 03/12/18 13:30) dizzy HOME MEDICATIONS: Home Medications Medication Instructions Recorded Aspirin [Aspirin EC] 81 mg PO DAILY 06/18/15 Clopidogrel Bisulfate [Clopidogrel] 75 mg PO DAILY 06/18/15 Zolpidem Tartrate [Ambien] 10 mg PO HS 06/18/15 Psyllium [Metamucil (Sugar-Free) -] 5.85 gm PO BID #1 bottle 06/02/17 Docusate Sodium [Colace -] 100 mg PO TID #90 capsule 09/22/17 Cholecalciferol (Vitamin D3) 2,000 unit PO DAILY #30 capsule 12/25/17 [Vitamin D3] Budesonide/Formeterol Fumarate 1 puff IH DAILY inhaler 12/30/17 [SYMBICORT 160/4.5mcg -] Cyclobenzaprine HCl 5 mg PO BID #28 tablet 12/30/17 Glipizide [Glucotrol -] 5 mg PO BID 01/11/18 Carvedilol [Coreg -] 25 mg PO BID #60 tablet 02/14/18 Lactulose (Oral Use) [Cephulac -] 20 gm PO BID PRN 02/16/18 Oxycodone HCl 10 mg PO QID PRN 02/16/18 Furosemide [Lasix -] 80 mg PO DAILY 7 Days #60 tablet 02/22/18 Pantoprazole Sodium [Protonix -] 40 mg PO DAILY #14 tablet.ec 02/22/18 Tiotropium [place] [Spiriva 2 puff IH DAILY #1 inhaler 02/22/18 Respimat] predniSONE [Deltasone -] 5 mg PO ASDIR #78 tab 02/22/18 Atorvastatin Ca [Lipitor] 20 mg PO HS 02/23/18 Oxycodone HCl/Acetaminophen 1 each PO QID #120 tablet MDD 4 02/23/18 [Percocet 10-325 mg Tablet] ROS, Family History as above NEUROLOGICAL EXAMINATION alert oriented x3 eomi, pupils reactive, no face asymmetry moving all extremity FTN, HTS is normal and no nystagmus strength is 5/5 all ext sensation is normal reflex is normal ct head is normal Assessment 62 year old male with multiple medical problem including COPD, CHF, CAD, PAD. He has fall , no loc, no seizure like activity, no weakness or sensory loss.Clinically unlilely to be TIA, STROKE, CORD COMPRESSION OR NEUROPATHY Plan; No further recommendation from neuro point of view I would be happy to see him again, if any concern Thanking you so much Jose Angel Vasquez MD
[2018-03-13] MEDS ORDERED: PT OWN MED DRAWER 7, Y5N ONE (17:25)
[2018-03-13] MEDS: ATORVASTATIN CA 20 MG TABLET (FP) PO SCH (21:50)
[2018-03-13] MEDS: ZOLPIDEM TARTRATE 5 MG TABLET PO PRN (21:50)
[2018-03-14 07:49] LABS: BASO % 0.7 % (0-2.0); EOS % 8.2 % (0-4.5); HEMATOCRIT 28.9 % (35.4-49); HEMOGLOBIN 10.1 GM/dL (11.7-16.9); LYMPH % 14.2 % (8-40); MCH 32.2 pg (25.7-33.7); MCHC 34.8 g/dl (32.0-35.9); MEAN CELL VOLUME 92.5 fl (80-96); MEAN PLT VOLUME 8.7 fl (7.5-11.1); MONO % 8.8 % (3.8-10.2); NEUT % 68.1 % (42.8-82.8); PLATELET COUNT 146 K/MM3 (134-434); RBC 3.12 M/mm3 (4.00-5.60); RDW 16.3 % (11.9-15.9); WHITE BLOOD COUNT 5.2 K/mm3 (4.0-10.0)
[2018-03-14] MEDS: ACETAMINOPHEN 325 MG TABLET (FP) PO SCH ×4 (08:00→17:33)
[2018-03-14] MEDS: oxyCODONE HCL 5 MG TABLET PO SCH ×4 (08:00→17:32)
[2018-03-14] MEDS: HEPARIN NA (PORCINE) 5,000 UNITS/ML 1ML VIAL SQ SCH ×2 (08:02→14:12)
[2018-03-14] MEDS: DOCUSATE SODIUM 100 MG CAPSULE (FP) PO SCH ×2 (08:03→14:12)
[2018-03-14] MEDS: INSULIN SLIDING SCALE (NOVOLOG) 1 VIAL SQ SCH ×3 (08:04→16:41)
--- NOTE | 2018-03-14 08:05 | PN ---
Progress Note, Physician Chief Complaint: Feels improved History of Present Illness: 62 year old man with PMH of COPD (home O2 3L), chronic systolic CHF, HTN, HLP, AICD, A fib, CAD (on ASA and Plavix), s/p CABG, MR, bio AVR, PVD, and CKD 3 presenting with worse falls Over the past three days he has fallen 10 times and fell today striking his head on a radiator. head CT a normal - Current Medication List Current Medications: Active Medications Acetaminophen (Tylenol -) 325 mg PO Q6HPO [facility] Last Admin: 03/14/18 08:03 Dose: 325 mg Aspirin (Ecotrin -) 81 mg PO DAILY [facility] Last Admin: 03/13/18 09:26 Dose: 81 mg Atorvastatin Calcium (Lipitor -) 20 mg PO HS [facility] Last Admin: 03/13/18 21:50 Dose: 20 mg Budesonide/Formoterol Fumarate (Symbicort 160/4.5mcg -) 2 puff IH BID [facility] Last Admin: 03/13/18 21:51 Dose: 2 puff Carvedilol (Coreg -) 25 mg PO BID [facility] Last Admin: 03/13/18 21:50 Dose: 25 mg Clopidogrel Bisulfate (Plavix -) 75 mg PO DAILY [facility] Last Admin: 03/13/18 09:26 Dose: 75 mg Cyclobenzaprine HCl (Cyclobenzaprine Hcl) 5 mg PO BID [facility] Last Admin: 03/13/18 21:50 Dose: 5 mg Docusate Sodium (Colace -) 100 mg PO TID [facility] Last Admin: 03/14/18 08:03 Dose: 100 mg Furosemide (Lasix -) 80 mg PO DAILY [facility] Last Admin: 03/13/18 09:26 Dose: 80 mg Heparin Sodium (Porcine) (Heparin -) 5,000 unit SQ TID [facility] Last Admin: 03/14/18 08:02 Dose: 5,000 unit Insulin Aspart (Novolog Vial Sliding Scale -) 1 vial SQ [facility]; Protocol Last Admin: 03/13/18 21:55 Dose: 4 units Lactulose (Cephulac (Oral Use)) 20 gm PO BID PRN PRN Reason: CONSTIPATION Oxycodone HCl (Roxicodone -) 10 mg PO Q6H PRN PRN Reason: PAIN LEVEL 6-10 Oxycodone HCl (Roxicodone -) 10 mg PO Q6HPO [facility] Last Admin: 03/14/18 08:03 Dose: 10 mg Pantoprazole Sodium (Protonix -) 40 mg PO DAILY [facility] Last Admin: 03/13/18 09:26 Dose: 40 mg Potassium Chloride (K-Dur -) 40 meq PO DAILY [facility] Last Admin: 03/13/18 12:56 Dose: 40 meq Prednisone (Deltasone -) 5 mg PO DAILY [facility] Last Admin: 03/13/18 09:26 Dose: 5 mg Psyllium Hydrophilic Mucilloid (Metamucil (Sugar-Free) -) 5.85 gm PO BID [facility] Last Admin: 03/13/18 21:50 Dose: 5.85 gm Tiotropium [place] (Spiriva Respimat) 2 puff IH DAILY [facility] Last Admin: 03/13/18 09:41 Dose: 2 puff Zolpidem Tartrate (Ambien -) 10 mg PO HS PRN PRN Reason: INSOMNIA Last Admin: 03/13/18 21:50 Dose: 10 mg - Objective Vital Signs: Vital Signs Temperature 98.2 F 03/14/18 01:21 Pulse Rate 69 03/14/18 01:21 Respiratory Rate 20 03/14/18 01:21 Blood Pressure 112/53 L 03/14/18 01:21 O2 Sat by Pulse Oximetry (%) 97 03/13/18 21:00 Elderly man not in distress HEENT: Mm moist, no anemia, NECK: No JVd No Bruit CHEST: Minimal basal crepts CVS: S1S2 SM + ABD: No distention, non tender Bs + EXT: multiple healing bruises and abrasions trace edema, Pulses + TRACK SUPERINTENDENT: AOX3 non focal Labs: CBC, BMP 03/14/18 07:00 03/14/18 07:00 Problem List - Problems (1) Falls frequently Assessment/Plan: Due to gait instability and , needs PT evaluation and home modification if possible to avoid fall and potential trauma refusing sub acute rehab Code(s): R29.6 - REPEATED FALLS (2) Afib Assessment/Plan: Rtae controlled Ac on Held for risk of trauma , consider resume Ac as out patient once gait stability improves Code(s): I48.91 - UNSPECIFIED ATRIAL FIBRILLATION Qualifiers: Atrial fibrillation type: chronic Qualified Code(s): I48.2 - Chronic atrial fibrillation (3) Chronic respiratory failure Assessment/Plan: On Home O2 and Bronchodilators saturating at his base line no active issue Code(s): J96.10 - CHRONIC RESPIRATORY FAILURE, UNSP W HYPOXIA OR HYPERCAPNIA (4) CAD (coronary artery disease) Assessment/Plan: S/P CABG will cont home meds including Statin , ASA and B Blockers mild elevation of Trop I but trend is Flat no acute St T changes denies any chest pain. Code(s): I25.10 - ATHSCL HEART DISEASE OF [place] CORONARY ARTERY W/O ANG PCTRS Qualifiers: [place] vs. transplanted heart: [place] heart Associated angina: without angina (5) CHF (congestive heart failure) Assessment/Plan: Systolic HF s/P AICD no recent fire on PO Lasix, Coreg not of ARBS or ACEI due to advanced renal failure needs AICD interrogation Code(s): I50.9 - HEART FAILURE, UNSPECIFIED Qualifiers: Heart failure type: systolic Heart failure chronicity: chronic Qualified Code(s): I50.22 - Chronic systolic (congestive) heart failure (6) Diabetes mellitus with chronic kidney disease Assessment/Plan: Cont home meds, optimize Glycemic control Code(s): E11.22 - TYPE 2 DIABETES MELLITUS W DIABETIC CHRONIC KIDNEY DISEASE; N18.9 - CHRONIC KIDNEY DISEASE, UNSPECIFIED Qualifiers: Diabetes mellitus type: type 2 Chronic kidney disease stage: stage 3 ( moderate) (7) HTN (hypertension) Assessment/Plan: Well controlled on current meds Code(s): I10 - ESSENTIAL (PRIMARY) HYPERTENSION Qualifiers: Hypertension type: essential hypertension Qualified Code(s): I10 - Essential (primary) hypertension (8) Pulmonary hypertension Assessment/Plan: Chronic Code(s): I27.2 - OTHER SECONDARY PULMONARY HYPERTENSION * DO NOT USE * (9) Diabetic neuropathy, type II diabetes mellitus Assessment/Plan: Optimize Glycemic control Code(s): E11.49 - TYPE 2 DIABETES W OTH DIABETIC NEUROLOGICAL COMPLICATION (10) COPD (chronic obstructive pulmonary disease) Assessment/Plan: Cont Home meds Code(s): J44.9 - CHRONIC OBSTRUCTIVE PULMONARY DISEASE, UNSPECIFIED
[2018-03-14 08:31] LABS: ANION GAP 11 MMOL/L (8-16); BLOOD UREA NITROGEN 48 mg/dL (7-18); CALCIUM 8.3 mg/dL (8.5-10.1); CHLORIDE 98 mmol/L (98-107); CO2 30 mmol/L (21-32); CREATININE 2.3 mg/dL (0.55-1.3); GLUCOSE,RANDOM 106 mg/dL (74-106); POTASSIUM 3.7 mmol/L (3.5-5.1); SODIUM 139 mmol/L (136-145)
--- NOTE | 2018-03-14 09:25 | PN ---
Progress Note (short form) - Note Progress Note: 62 year old male history of COPD, CHF, CAD, PAD, came to hospital with fall. He went to bathroom early in morning and had episode of fall. He denies any feeling dizzy or vertigo sensation. He is feeling better. He denies any back pain or any neck pain before this fall. He do not have any tingling or numbness before the fall. He can move his leg and no sensory difficulty in leg. He is moving around. ct scan of brain was normal. no change in his medication recently. He si feeling better and no dizziness any more. NEUROLOGICAL EXAMINATION alert oriented x3 eomi, pupils reactive, no face asymmetry moving all extremity FTN, HTS is normal and no nystagmus strength is 5/5 all ext sensation is normal reflex is normal ct head is normal Assessment 62 year old male with multiple medical problem including COPD, CHF, CAD, PAD. He has fall , no loc, no seizure like activity, no weakness or sensory loss.Clinically unlilely to be TIA, STROKE, CORD COMPRESSION OR NEUROPATHY Plan; cardiac work up as per primary supportive care Thanking you so much Jose Angel Vasquez md
--- NOTE | 2018-03-14 09:32 | PN ---
Progress Note, Physician Chief Complaint: fall vs ? syncope History of Present Illness: no sob, orthopnea no cp, palpit, icd shocks - Current Medication List Current Medications: Active Medications Acetaminophen (Tylenol -) 325 mg PO Q6HPO [facility] Last Admin: 03/14/18 08:03 Dose: 325 mg Aspirin (Ecotrin -) 81 mg PO DAILY [facility] Last Admin: 03/13/18 09:26 Dose: 81 mg Atorvastatin Calcium (Lipitor -) 20 mg PO HS [facility] Last Admin: 03/13/18 21:50 Dose: 20 mg Budesonide/Formoterol Fumarate (Symbicort 160/4.5mcg -) 2 puff IH BID [facility] Last Admin: 03/13/18 21:51 Dose: 2 puff Carvedilol (Coreg -) 25 mg PO BID [facility] Last Admin: 03/13/18 21:50 Dose: 25 mg Clopidogrel Bisulfate (Plavix -) 75 mg PO DAILY [facility] Last Admin: 03/13/18 09:26 Dose: 75 mg Cyclobenzaprine HCl (Cyclobenzaprine Hcl) 5 mg PO BID [facility] Last Admin: 03/13/18 21:50 Dose: 5 mg Docusate Sodium (Colace -) 100 mg PO TID [facility] Last Admin: 03/14/18 08:03 Dose: 100 mg Furosemide (Lasix -) 80 mg PO DAILY [facility] Last Admin: 03/13/18 09:26 Dose: 80 mg Heparin Sodium (Porcine) (Heparin -) 5,000 unit SQ TID [facility] Last Admin: 03/14/18 08:02 Dose: 5,000 unit Insulin Aspart (Novolog Vial Sliding Scale -) 1 vial SQ [facility]; Protocol Last Admin: 03/14/18 08:04 Dose: Not Given Lactulose (Cephulac (Oral Use)) 20 gm PO BID PRN PRN Reason: CONSTIPATION Oxycodone HCl (Roxicodone -) 10 mg PO Q6H PRN PRN Reason: PAIN LEVEL 6-10 Oxycodone HCl (Roxicodone -) 10 mg PO Q6HPO [facility] Last Admin: 03/14/18 08:03 Dose: 10 mg Pantoprazole Sodium (Protonix -) 40 mg PO DAILY [facility] Last Admin: 03/13/18 09:26 Dose: 40 mg Potassium Chloride (K-Dur -) 40 meq PO DAILY [facility] Last Admin: 03/13/18 12:56 Dose: 40 meq Prednisone (Deltasone -) 5 mg PO DAILY [facility] Last Admin: 03/13/18 09:26 Dose: 5 mg Psyllium Hydrophilic Mucilloid (Metamucil (Sugar-Free) -) 5.85 gm PO BID [facility] Last Admin: 03/13/18 21:50 Dose: 5.85 gm Tiotropium [place] (Spiriva Respimat) 2 puff IH DAILY [facility] Last Admin: 03/13/18 09:41 Dose: 2 puff Zolpidem Tartrate (Ambien -) 10 mg PO HS PRN PRN Reason: INSOMNIA Last Admin: 03/13/18 21:50 Dose: 10 mg - Objective Vital Signs: Vital Signs Temperature 98.2 F 03/14/18 01:21 Pulse Rate 69 03/14/18 01:21 Respiratory Rate 20 03/14/18 01:21 Blood Pressure 112/53 L 03/14/18 01:21 O2 Sat by Pulse Oximetry (%) 97 03/13/18 21:00 Constitutional: Yes: Well Nourished, No Distress Cardiovascular: Yes: Regular Rate and Rhythm, S1, S2. No: Gallop, Murmur Respiratory: Yes: Regular, CTA Bilaterally. No: Accessory Muscle Use, Rales, Wheezes Extremities: No: Cold Edema: No Neurological: Yes: Alert, Oriented Psychiatric: No: Agitated Labs: CBC, BMP 03/14/18 07:00 03/14/18 07:00 INR, PTT INR 1.23 (0.83-1.09) H 03/13/18 06:50 Assessment/Plan ECG: AFL, intermittent V-S/V-P, + ST-Ts unchanged vs prior 02/21 CXR: chronic changes L base c/w atx vs infiltrate--no change echo 06/2016: sev dec lvef, global hk, rv tds, trinity, mod-sev mr, mod tr, rvsp 50- 60 echo 06/2015: mild lve, mod-sev dec lvef, mod lae, nl rv size, mild dec rv fcn, mild-mod mr, mild tr, nl avr fcn, rvsp 30-40 mibi 06/2016 (pers): non-diagnostic STs; large area inferior/inferolateral/ lateral scar; no ischemia; severe LV cavity dilation; global HK with akinesis of inferior/inferolat/lateral allan; EF 16% mibi 09/2014: large inf scar, mod anteroapical ischemia, lvef 25% tele: AFL, Vs/TAILER OFF. no VT a/p: 62 m hx copd, cabgx3 2012, bio avr 2012, pad s/p b/l sfa occlusions, syst chf s/p medtronic icd, htn, hld, a-tach, here with back pain, sob. repeated falls: -very frequent falls recently including head trauma -suspected LE weakness with mechanical falls etiology, though pt cannot give completely reassuring history -no appreciated ICD shocks--will interrogate device (not done --to be scheduled today) -check orthostatic VSs -CT head no acute pathology here. pt with atrial flutter and not anticoagulated- -no suspicion of TIA/CVA per neuro. -PT eval, dispo per hospitalist atrial flutter: -pt in AFL on ekg, similar to tele on recent admits -CHADS VASC 4, warrants AC for cardioembolic prophylaxis. pt is at prohibitive risks of falls/head trauma at present. will defer AC. -should f/u with dr tang as outpt to reassess risks/benefits once PT and living situation is addressed to hopefully minimize falls risk. LA appendage closure (Watchman) can be considered as well, given pt's risk of hemopericardium is essentially zero with prior CABG surgery. chronic systolic CHF exacerbation -recent dry wt here 187 lbs (02/21). no wts here--to start -BNP 19K, c/w chronic range (7K-30K) -clinically euvolemic -stable vol status, cont po lasix 80 qd home dose -cont carvedilol. not on ACEI due to h/o hyperkalemia cad/hx of CABG 2012 -no recent angina/ischemia -trop chronically 0.09-0.12 range with flat trend sec to chronic CHF--unchanged here -present sx's of mult falls not in the least concerning for acute myocardial ischemia process. pt admitted to telemetry for unchanged, chronic ECG abnormalities--d/c tele -cont prior cad med regimen: dapt, statin, bb, ccb -unclear why on DAPT with no prior stents (? had remote stents before cabg that are not fully protected by grafts...). given falls/bleeding risk, will need to clarify indication with dr tang and consider d/c plavix if not mandatory here VT: -nonsustained VT on tele, has ICD in place -brief episode -presentation currently not suspicious for VT/ICD shocks as etiology. will arrange for device interrogation here -K > 4, Mag >2 -cont bb as doing bio avr: -nl fcn on echo 06/20 mitral regurgitation: -likely functional MR, mild-mod on echo 06/19, then "mod-severe" when here 06/20 with suspected acute chf and pulm pressures up (though at risk for overestimation of MR severity on that echo report) -valve morphology not described (tethered leaflets?) -no murmur on exam -reassess MR severity on echo as outpt CKD: -baseline creatinine 2-2.5; -renal fxn stable here pad: -stable, no claudication, cont current cardiac meds s/p icd: -no shocks -routine outpt monitoring htn: -bp stable -cont home meds DM: -per hospitalist
[2018-03-14] MEDS ORDERED: PT OWN MED DRAWER 7, Y5N ONE (10:12)
[2018-03-14] MEDS: POTASSIUM CHLORIDE TABS 20 MEQ TABLET.ER (FP) PO SCH (10:13)
[2018-03-14] MEDS: predniSONE 5 MG TABLET (UD) PO SCH (10:14)
[2018-03-14] MEDS: FUROSEMIDE 40 MG TABLET (FP) PO SCH (10:14)
[2018-03-14] MEDS: CLOPIDOGREL BISULFATE 75 MG TABLET (FP) PO SCH (10:14)
[2018-03-14] MEDS: CYCLOBENZAPRINE HCL 5 MG TABLET PO SCH (10:14)
[2018-03-14] MEDS: PANTOPRAZOLE 40 MG TABLET (FP) PO SCH (10:14)
[2018-03-14] MEDS: CARVEDILOL 25 MG TABLET (FP) PO SCH (10:14)
[2018-03-14] MEDS: ASPIRIN COATED 81 MG TABLET.EC PO SCH (10:14)
[2018-03-14] MEDS: PSYLLIUM 5.85 GM PACKET PO SCH (10:14)
[2018-03-14] MEDS: BUDESONIDE/FORMETEROL FUMARATE 160/4.5 mcg INHALER IH SCH (10:14)
[2018-03-14] MEDS: TIOTROPIUM BROMIDE 2.5 MCG (SPIRIVA) RESPIMAT INHALER IH SCH (10:15)
[2018-03-15] MEDS: ATORVASTATIN CA 20 MG TABLET (FP) PO SCH (00:13)
[2018-03-15] MEDS: DOCUSATE SODIUM 100 MG CAPSULE (FP) PO SCH ×2 (00:13→06:57)
[2018-03-15] MEDS: ZOLPIDEM TARTRATE 5 MG TABLET PO PRN (00:13)
[2018-03-15] MEDS: ACETAMINOPHEN 325 MG TABLET (FP) PO SCH ×2 (00:14→06:57)
[2018-03-15] MEDS: CARVEDILOL 25 MG TABLET (FP) PO SCH ×2 (00:14→10:04)
[2018-03-15] MEDS: oxyCODONE HCL 5 MG TABLET PO SCH ×2 (00:14→06:58)
[2018-03-15] MEDS: PSYLLIUM 5.85 GM PACKET PO SCH ×2 (00:14→10:05)
[2018-03-15] MEDS: INSULIN SLIDING SCALE (NOVOLOG) 1 VIAL SQ SCH ×3 (00:14→11:36)
[2018-03-15] MEDS: BUDESONIDE/FORMETEROL FUMARATE 160/4.5 mcg INHALER IH SCH ×2 (00:14→10:07)
[2018-03-15] MEDS: HEPARIN NA (PORCINE) 5,000 UNITS/ML 1ML VIAL SQ SCH ×2 (00:15→06:58)
[2018-03-15] MEDS: CYCLOBENZAPRINE HCL 5 MG TABLET PO SCH ×2 (00:15→10:07)
[2018-03-15 07:01] LABS: EOS % 6.6 % (0-4.5); HEMATOCRIT 28.8 % (35.4-49); HEMOGLOBIN 9.5 GM/dL (11.7-16.9); LYMPH % 15.3 % (8-40); MCH 30.9 pg (25.7-33.7); MEAN CELL VOLUME 93.7 fl (80-96); MEAN PLT VOLUME 8.5 fl (7.5-11.1); MONO % 10.1 % (3.8-10.2); PLATELET COUNT 146 K/MM3 (134-434); RBC 3.08 M/mm3 (4.00-5.60); WHITE BLOOD COUNT 5.3 K/mm3 (4.0-10.0)
[2018-03-15 08:16] LABS: ANION GAP 8 MMOL/L (8-16); BLOOD UREA NITROGEN 46 mg/dL (7-18); CALCIUM 7.9 mg/dL (8.5-10.1); CHLORIDE 100 mmol/L (98-107); CO2 28 mmol/L (21-32); CREATININE 2.2 mg/dL (0.55-1.3); GLUCOSE,RANDOM 169 mg/dL (74-106); SODIUM 136 mmol/L (136-145)
--- NOTE | 2018-03-15 09:21 | PN ---
Progress Note (short form) - Note Progress Note: 62 year old male history of COPD, CHF, CAD, PAD, came to hospital with fall. He went to bathroom early in morning and had episode of fall. He denies any feeling dizzy or vertigo sensation. He is feeling better. He denies any back pain or any neck pain before this fall. He do not have any tingling or numbness before the fall. He can move his leg and no sensory difficulty in leg. He is moving around. ct scan of brain was normal. no change in his medication recently. He denies any dizziness and walking around NEUROLOGICAL EXAMINATION alert oriented x3 eomi, pupils reactive, no face asymmetry moving all extremity FTN, HTS is normal and no nystagmus strength is 5/5 all ext sensation is normal reflex is normal ct head is normal Assessment 62 year old male with multiple medical problem including COPD, CHF, CAD, PAD. He has fall , no loc, no seizure like activity, no weakness or sensory loss.Clinically unlilely to be TIA, STROKE, CORD COMPRESSION OR NEUROPATHY Plan; dizziness has resolved and would see him prn Thanking you so much Jose Angel Vasquez md
[2018-03-15] MEDS: CLOPIDOGREL BISULFATE 75 MG TABLET (FP) PO SCH (10:04)
[2018-03-15] MEDS: ASPIRIN COATED 81 MG TABLET.EC PO SCH (10:04)
[2018-03-15] MEDS: predniSONE 5 MG TABLET (UD) PO SCH (10:04)
[2018-03-15] MEDS: PANTOPRAZOLE 40 MG TABLET (FP) PO SCH (10:04)
[2018-03-15] MEDS: FUROSEMIDE 40 MG TABLET (FP) PO SCH (10:04)
[2018-03-15] MEDS: POTASSIUM CHLORIDE TABS 20 MEQ TABLET.ER (FP) PO SCH (10:04)
[2018-03-15] MEDS ORDERED: PT OWN MED DRAWER 7, Y5N ONE ×3 (10:06→12:56)
[2018-03-15] MEDS: TIOTROPIUM BROMIDE 2.5 MCG (SPIRIVA) RESPIMAT INHALER IH SCH (10:07)
--- NOTE | 2018-03-15 10:52 | PN ---
Progress Note, Physician Chief Complaint: fall vs syncope History of Present Illness: denies pre/syncope here. no cp, sob, palpitations - Current Medication List Current Medications: Active Medications Acetaminophen (Tylenol -) 325 mg PO Q6HPO [facility] Last Admin: 03/15/18 06:57 Dose: 325 mg Aspirin (Ecotrin -) 81 mg PO DAILY [facility] Last Admin: 03/15/18 10:04 Dose: 81 mg Atorvastatin Calcium (Lipitor -) 20 mg PO HS [facility] Last Admin: 03/15/18 00:13 Dose: 20 mg Budesonide/Formoterol Fumarate (Symbicort 160/4.5mcg -) 2 puff IH BID [facility] Last Admin: 03/15/18 10:07 Dose: 2 puff Carvedilol (Coreg -) 25 mg PO BID [facility] Last Admin: 03/15/18 10:04 Dose: 25 mg Clopidogrel Bisulfate (Plavix -) 75 mg PO DAILY [facility] Last Admin: 03/15/18 10:04 Dose: 75 mg Cyclobenzaprine HCl (Cyclobenzaprine Hcl) 5 mg PO BID [facility] Last Admin: 03/15/18 10:07 Dose: 5 mg Docusate Sodium (Colace -) 100 mg PO TID [facility] Last Admin: 03/15/18 06:57 Dose: 100 mg Furosemide (Lasix -) 80 mg PO DAILY [facility] Last Admin: 03/15/18 10:04 Dose: 80 mg Heparin Sodium (Porcine) (Heparin -) 5,000 unit SQ TID [facility] Last Admin: 03/15/18 06:58 Dose: 5,000 unit Insulin Aspart (Novolog Vial Sliding Scale -) 1 vial SQ [facility]; Protocol Last Admin: 03/15/18 06:59 Dose: Not Given Lactulose (Cephulac (Oral Use)) 20 gm PO BID PRN PRN Reason: CONSTIPATION Oxycodone HCl (Roxicodone -) 10 mg PO Q6H PRN PRN Reason: PAIN LEVEL 6-10 Oxycodone HCl (Roxicodone -) 10 mg PO Q6HPO [facility] Last Admin: 03/15/18 06:58 Dose: 10 mg Pantoprazole Sodium (Protonix -) 40 mg PO DAILY [facility] Last Admin: 03/15/18 10:04 Dose: 40 mg Potassium Chloride (K-Dur -) 40 meq PO DAILY [facility] Last Admin: 03/15/18 10:04 Dose: 40 meq Prednisone (Deltasone -) 5 mg PO DAILY [facility] Last Admin: 03/15/18 10:04 Dose: 5 mg Psyllium Hydrophilic Mucilloid (Metamucil (Sugar-Free) -) 5.85 gm PO BID [facility] Last Admin: 03/15/18 10:05 Dose: 5.85 gm Tiotropium [place] (Spiriva Respimat) 2 puff IH DAILY [facility] Last Admin: 03/15/18 10:07 Dose: 2 puff Zolpidem Tartrate (Ambien -) 10 mg PO HS PRN PRN Reason: INSOMNIA Last Admin: 03/15/18 00:13 Dose: 10 mg - Objective Vital Signs: Vital Signs Temperature 97.3 F L 03/14/18 17:00 Pulse Rate 82 03/14/18 21:00 Respiratory Rate 18 03/14/18 21:00 Blood Pressure 148/88 03/14/18 22:00 O2 Sat by Pulse Oximetry (%) 97 03/14/18 21:00 Constitutional: Yes: Well Nourished, No Distress, Calm Cardiovascular: Yes: Regular Rate and Rhythm, S1, S2. No: Gallop, Murmur Respiratory: Yes: Regular, CTA Bilaterally. No: Accessory Muscle Use, Rales, Wheezes Extremities: No: Cold Edema: No Neurological: Yes: Alert, Oriented Psychiatric: No: Agitated Labs: CBC, BMP 03/15/18 05:30 03/15/18 05:30 INR, PTT INR 1.23 (0.83-1.09) H 03/13/18 06:50 Assessment/Plan ECG: AFL, intermittent V-S/V-P, + ST-Ts unchanged vs prior 02/21 CXR: chronic changes L base c/w atx vs infiltrate--no change echo 06/2016: sev dec lvef, global hk, rv tds, trinity, mod-sev mr, mod tr, rvsp 50- 60 echo 06/2015: mild lve, mod-sev dec lvef, mod lae, nl rv size, mild dec rv fcn, mild-mod mr, mild tr, nl avr fcn, rvsp 30-40 mibi 06/2016 (pers): non-diagnostic STs; large area inferior/inferolateral/ lateral scar; no ischemia; severe LV cavity dilation; global HK with akinesis of inferior/inferolat/lateral allan; EF 16% mibi 09/2014: large inf scar, mod anteroapical ischemia, lvef 25% tele: AFL HR controlled, Vs/AITCHBONE BREAKER. no VT a/p: 62 m hx copd, cabgx3 2012, bio avr 2012, pad s/p b/l sfa occlusions, syst chf s/p medtronic icd, htn, hld, a-tach, here with back pain, sob. repeated falls: -very frequent falls recently including head trauma -suspected LE weakness with mechanical falls etiology, though pt cannot give completely reassuring history -ICD interrogated: no sustained ventricular arrhythmias and no therapies delivered. -RN verbal report of orthostatic VSs today--no bp drop on standing. -CT head no acute pathology here. pt with atrial flutter and not anticoagulated- -no suspicion of TIA/CVA per neuro. atrial flutter: -pt in AFL on ekg, similar to tele on recent admits -CHADS VASC 4, warrants AC for cardioembolic prophylaxis. pt is at prohibitive risks of falls/head trauma at present. will defer AC for now. pt advised he needs to see dr tang next week to discuss AC vs falls risk given potential neuro consequences of this decision--he verbalized understanding. -should f/u with dr tang as outpt to reassess risks/benefits once PT and living situation is addressed to hopefully minimize falls risk. LA appendage closure (Watchman) can be considered as well, given pt's risk of hemopericardium is essentially zero with prior CABG surgery. chronic systolic CHF exacerbation -recent dry wt here 187 lbs (02/21). no wts here--to start -BNP 19K, c/w chronic range (7K-30K) -clinically euvolemic, thoracic impedance WNL on ICD check here -stable vol status, cont po lasix 80 qd home dose -cont carvedilol. not on ACEI due to h/o hyperkalemia cad/hx of CABG 2012 -no recent angina/ischemia -trop chronically 0.09-0.12 range with flat trend sec to chronic CHF--unchanged here -present sx's of mult falls not in the least concerning for acute myocardial ischemia process. pt admitted to telemetry for unchanged, chronic ECG abnormalities--d/c tele -cont prior cad med regimen: dapt, statin, bb, ccb -unclear why on DAPT with no prior stents (? had remote stents before cabg that are not fully protected by grafts...). given falls/bleeding risk, will need to clarify indication with dr tang and consider d/c plavix if not mandatory here VT: -nonsustained VT on tele, has ICD in place -brief episode -presentation currently not suspicious for VT/ICD shocks as etiology. -K > 4, Mag >2 -cont bb as doing bio avr: -nl fcn on echo 06/20 mitral regurgitation: -likely functional MR, mild-mod on echo 06/19, then "mod-severe" when here 06/20 with suspected acute chf and pulm pressures up (though at risk for overestimation of MR severity on that echo report) -valve morphology not described (tethered leaflets?) -no murmur on exam -reassess MR severity on echo as outpt CKD: -baseline creatinine 2-2.5; -renal fxn stable here pad: -stable, no claudication, cont current cardiac meds s/p icd: -no shocks -routine outpt monitoring htn: -bp stable -cont home meds DM: -per hospitalist OK FOR D/V FROM CV P.O.V.
[2018-03-15 11:02] VITALS: BP 147/73; PULSE 67; TEMP 98
--- NOTE | 2018-03-15 11:33 | ECHO ---
Name: ARTEMIO RAMIREZ Exam:Adult Echocardiogram Study Date: 03/15/2018 08:46 AM Age: 62 yrs Reason For Study: PRE SYNCOPE CHF Height: 70 in Weight: 170 lb BSA: 1.9 m2 MMode/2D Measurements & Calculations IVSd: 1.1 cm Ao root diam: 2.8 cm LVIDd: 6.2 cm LA dimension: 5.1 cm LVIDs: 5.4 cm LVPWd: 1.1 cm EDV(Teich): 190.9 ml LVOT diam: 2.1 cm ESV(Teich): 143.9 ml TAPSE: 1.9 cm Doppler Measurements & Calculations MV E max roberto: 81.4 cm/sec Ao V2 max: 142.5 cm/sec MV A max roberto: 31.1 cm/sec Ao max P.1 mmHg MV E/A: 2.6 MV dec time: 0.17 sec NEEL(V,D): 1.4 cm2 LV V1 max P.4 mmHg MR max roberto: 394.4 cm/sec LV V1 max: 59.2 cm/sec MR max P.3 mmHg TR max roberto: 326.6 cm/sec Med Peak E' Roberto: 5.2 cm/sec TR max P.0 mmHg Med E/e': 15.6 Lat Peak E' Roberto: 5.8 cm/sec Lat E/e': 14.0 Procedure A complete two-dimensional transthoracic echocardiogram was performed (2D, M-mode, Doppler and color flow Doppler). Left Ventricle The left ventricle is mildly dilated. Left ventricular systolic function is moderate to severely redu yomi. Ejection Fraction = 30-35%. Mitral inflow reveals pseudonormalization with TDI of impaired relaxation (probably grade II) with elevated filling pressure (E/E' 15). There is moderate to severe global hypo kinesis of the left ventricle. Right Ventricle The right ventricle is not well visualized. RV systolic TDI is 6 cm/s and RV function appears diminis hed. Atria The left atrium is moderately dilated. The right atrium is mildly dilated. Mitral Valve There is mild mitral annular calcification. There is moderate mitral regurgitation. Tricuspid Valve The tricuspid valve is normal in structure and function. There is moderate tricuspid regurgitation. P ulmonary artery systolic pressure is at least 55 mmHg assuming RA pressure of 3 mmHg. Aortic Valve There is a bioprosthetic aortic valve. The prosthetic aortic valve is well-seated. The prosthetic aor tic valve appears to open well. No aortic regurgitation is present. Pulmonic Valve The pulmonic valve is not well visualized. Great Vessels The aortic root is normal size. Pericardium/Pleura There is no pericardial effusion. Interpretation Summary The left ventricle is mildly dilated. Left ventricular systolic function is moderate to severely reduced. There is moderate to severe global hypokinesis of the left ventricle. Ejection Fraction = 30-35%. Mitral inflow reveals pseudonormalization with TDI of impaired relaxation (probably grade II) with el evated filling pressure (E/E' 15) The right ventricle is not well visualized. RV systolic TDI is 6 cm/s and RV function appears diminished The left atrium is moderately dilated. The right atrium is mildly dilated. There is mild mitral annular calcification. There is moderate mitral regurgitation. There is moderate tricuspid regurgitation. Pulmonary artery systolic pressure is at least 55 mmHg assuming RA pressure of 3 mmHg There is a bioprosthetic aortic valve. The prosthetic aortic valve is well-seated. The prosthetic aortic valve appears to open well. No aortic regurgitation is present. There is no pericardial effusion. Umang Duran MD 03/15/2018 11:33 AM
--- NOTE | 2018-03-15 12:14 | DS ---
Physical Examination Vital Signs: Vital Signs Temperature 98.0 F 03/15/18 10:00 Pulse Rate 67 03/15/18 10:00 Respiratory Rate 20 03/15/18 10:00 Blood Pressure 147/73 03/15/18 10:00 O2 Sat by Pulse Oximetry (%) 97 03/15/18 09:00 Constitutional: Yes: Well Nourished, No Distress, Calm Cardiovascular: Yes: Pulse Irregular Respiratory: Yes: WNL, Regular, Diminished. No: Accessory Muscle Use, Tachypnea , Wheezes Gastrointestinal: Yes: WNL, Normal Bowel Sounds, Soft. No: Distention, Tenderness Renal/: Yes: WNL Extremities: Yes: WNL Edema: No Neurological: Yes: WNL, Alert, Oriented Psychiatric: Yes: WNL, Alert, Oriented Labs: CBC, BMP 03/15/18 05:30 03/15/18 05:30 Discharge Summary Reason For Visit: LIGHTHEADEDNESS/PRESYNCOPE/RECURRENT FALLS Current Active Problems COPD (chronic obstructive pulmonary disease) (Acute) Falls frequently (Acute) Pre-syncope (Acute) Hospital Course: 62 year old male admitted for evaluation of fall at home. All work up negative. Pt evaluated by neurology and cardiology, no acute findings. Pt reports feeling better, denies any chest pain, sob or lightheadedness, ambulated well with PT. Carotid doppler without any hemodynamic compromise, left external carotid with increased signal velocity suggestive of more than 90% stenosis, case discussed with Neurology, recommends outpt vascular follow up. Pt is medically stable for discharge home. Follow up as directed. 32 minutes spent in discharge planning Condition: Good - Instructions Diet, Activity, Other Instructions: stop plavix low na diet, check daily weight and keep log , if >3lb weight gain, inform follow up with VASCULAR f/u as directed Referrals: Kanu Truong MD [Primary Care Provider] - 1 Week Anthony Zafar MD [Staff Physician] - Arsen Rousseau MD [Non Staff, Medical] - 1 Week (left external carotid, high peak systolic velocity greater than 90% stenosis ) Disposition: HOME - Home Medications Comprehensive Discharge Medication List: Ambulatory Orders Aspirin [Aspirin EC] 81 mg PO DAILY 06/18/15 Zolpidem Tartrate [Ambien] 10 mg PO HS 06/18/15 Psyllium [Metamucil (Sugar-Free) -] 5.85 gm PO BID #1 bottle 06/02/17 Docusate Sodium [Colace -] 100 mg PO TID #90 capsule 09/22/17 Cholecalciferol (Vitamin D3) [Vitamin D3] 2,000 unit PO DAILY #30 capsule Budesonide/Formeterol Fumarate [SYMBICORT 160/4.5mcg -] 1 puff IH DAILY inhaler 12/30/17 Cyclobenzaprine HCl 5 mg PO BID #28 tablet 12/30/17 Glipizide [Glucotrol -] 5 mg PO BID 01/11/18 Carvedilol [Coreg -] 25 mg PO BID #60 tablet 02/14/18 Lactulose (Oral Use) [Cephulac -] 20 gm PO BID PRN 02/16/18 Oxycodone HCl 10 mg PO QID PRN 02/16/18 Pantoprazole Sodium [Protonix -] 40 mg PO DAILY #14 tablet.ec 02/22/18 Tiotropium [place] [Spiriva Respimat] 2 puff IH DAILY #1 inhaler 02/22/18 Atorvastatin Ca [Lipitor] 20 mg PO HS 02/23/18 Oxycodone HCl/Acetaminophen [Percocet 10-325 mg Tablet] 1 each PO QID #120 tablet MDD 4 02/23/18 Furosemide [Lasix -] 80 mg PO DAILY #60 tablet 03/15/18
== END 2018-03-15 13:37 | disposition home or self-care (01) ==
LOC: JER 13:07 → JERBED 14:00 → UNDOADMOB 14:00 → INTOOBSV 14:00 → JERBED 22:34 → J4W 03-13 02:31 → JERBED 03-13 02:31 → J4W 03-13 02:31
PROVIDERS: ADMIT Internal Medicine; ATTEND Internal Medicine
PROC: 3E0F7GC Introduction of Other Therapeutic Substance into Respiratory Tract, Via Natural or Artificial Opening (ICD-10-PCS; principal; 2018-03-12)
PROC: 3E0F7GC Introduction of Other Therapeutic Substance into Respiratory Tract, Via Natural or Artificial Opening (ICD-10-PCS; 2018-03-12)
PROC: 3E013VG Introduction of Insulin into Subcutaneous Tissue, Percutaneous Approach (ICD-10-PCS; 2018-03-12)
PROC: 3E013GC Introduction of Other Therapeutic Substance into Subcutaneous Tissue, Percutaneous Approach (ICD-10-PCS; 2018-03-12)
DX: R55 Syncope and collapse (principal); J44.1 Chronic obstructive pulmonary disease with (acute) exacerbation; E88.09 Other disorders of plasma-protein metabolism, not elsewhere classified; Z91.81 History of falling; I25.10 Atherosclerotic heart disease of native coronary artery without angina pectoris; I13.0 Hypertensive heart and chronic kidney disease with heart failure and stage 1 through stage 4 chronic kidney disease, or unspecified chronic kidney disease; N18.3 Chronic kidney disease, stage 3 (moderate); I50.23 Acute on chronic systolic (congestive) heart failure; Z95.1 Presence of aortocoronary bypass graft; I48.91 Unspecified atrial fibrillation; Z79.01 Long term (current) use of anticoagulants; Z79.82 Long term (current) use of aspirin; I34.0 Nonrheumatic mitral (valve) insufficiency; Z95.4 Presence of other heart-valve replacement; E78.00 Pure hypercholesterolemia, unspecified; E78.5 Hyperlipidemia, unspecified; E11.42 Type 2 diabetes mellitus with diabetic polyneuropathy; E11.22 Type 2 diabetes mellitus with diabetic chronic kidney disease; Z79.84 Long term (current) use of oral hypoglycemic drugs; R26.89 Other abnormalities of gait and mobility; Z99.89 Dependence on other enabling machines and devices; Z99.81 Dependence on supplemental oxygen; R26.2 Difficulty in walking, not elsewhere classified; I73.9 Peripheral vascular disease, unspecified
CPT/HCPCS: 36415; 70450-TC; 71046-TC-FY; 71111-TC-FY; 80048; 80053; 81003; 81015; 82550; 82962; 83735; 83880; 84100; 84484; 85025; 85610; 93005; 93010; 93306-TC; 93880-TC; 94640; 96372; 97116-GP; 97161-GP; 99283-25; G0378; J1644

== ENCOUNTER 2018-03-28 05:24 | Inpatient (IN) | payer OTHER ==
--- NOTE | 2018-03-28 06:38 | PDOC ---
Attending Attestation - Resident Resident Name: Rocky Gibbs - ED Attending Attestation I have performed the following: I have examined & evaluated the patient, The case was reviewed & discussed with the resident, I agree w/resident's findings & plan - HPI HPI: 03/28/18 06:40 Pt comes with SOB and chest discomfort. He has increased work of breathing as per son, who brings him. O2sat is 92% on 2L O2. Pt will have all labs, blood cultures and CXR EKG done and he will be admitted. Pt will also require flu culture. - Physicial Exam PE: 03/28/18 06:42 Agree with resident exam. 03/28/18 06:47 Pt has decreaed breath sounds bilaterally and he has abdominal breathing. - Medical Decision Making 03/29/18 02:05 Pt will be admitted for COPD exacerbation as well as hypoxemia. 03/29/18 02:06 Pt was signed out to the day team. Heart Score/ECG Review - ECG Intrepretation Rhythm: Regular Rhythm - [place]: Normal - P and UT Prominent R with upright T in V1 (true posterior FL): No Delta Wave(s) Present: No WPW: No - QRS Poor R Wave Progression: No Q Wave Present: No - ST and T Flattened T Waves: No Prolonged Q-T Interval: No - ECG Impressions Normal ECG: Yes Non-specific ST Elevation: No Ischemic Changes: No Bradycardia: No Torsades ryann Pointes: No WPW: No
--- NOTE | 2018-03-28 06:58 | PDOC ---
History of Present Illness - General Chief Complaint: Respiratory Stated Complaint: BODY ACHES Time Seen by Provider: 03/28/18 05:40 History Source: Patient, Family Exam Limitations: Dementia - History of Present Illness Initial Comments: 03/28/18 07:00 Pt. is a 64 y.o. M w/ significant cardiac PMHx. including CHFrEF, Afib, s/p ICD placement, COPD (on 2L home O2) presents to the ED with right sided neck pain, and right chest pain that is constant, non-radiating and 10/10 in severity. Pt. states that he was at rest when the pain happened spontaneously yesterday. The pain has been causing him to have increased difficulty with breathing. Pt. was placed on NRB and now endorses that he feels closer to his baseline respirations. EKG, Cardiac profile, CBC, CMP, Lactic acid, CXR PT/ INR, Mag, BNP, VBG and Influenza labs were ordered to rule out cardiac vs. pulmonary vs. infectious etiology. Timing/Duration: 24 hours, getting worse Severity: moderate Modifying Factors: improves with: movement (worsens ), rest (improves ) Associated Symptoms: reports: chest pain, shortness of breath, weakness. denies : fever/chills, headaches, nausea/vomiting, rash Beta Kacey Taken at Home(Core Measure): Yes Past History - Travel Traveled outside of the country in the last 30 days: No Close contact w/someone who was outside of country & ill: No - Past Medical History Allergies/Adverse Reactions: Allergies Allergy/AdvReac Type Severity Reaction Status Date / Time Fish Containing Products Allergy Verified 03/28/18 05:49 codeine AdvReac Intermediate Vomiting Verified 03/28/18 05:49 gabapentin AdvReac Intermediate dizzy Verified 03/28/18 05:49 Home Medications: Ambulatory Orders Aspirin [Aspirin EC] 81 mg PO DAILY 06/18/15 Zolpidem Tartrate [Ambien] 10 mg PO HS 06/18/15 Psyllium [Metamucil (Sugar-Free) -] 5.85 gm PO BID #1 bottle 06/02/17 Docusate Sodium [Colace -] 100 mg PO TID #90 capsule 09/22/17 Cholecalciferol (Vitamin D3) [Vitamin D3] 2,000 unit PO DAILY #30 capsule Budesonide/Formeterol Fumarate [SYMBICORT 160/4.5mcg -] 1 puff IH DAILY inhaler 12/30/17 Cyclobenzaprine HCl 5 mg PO BID #28 tablet 12/30/17 Glipizide [Glucotrol -] 5 mg PO BID 01/11/18 Carvedilol [Coreg -] 25 mg PO BID #60 tablet 02/14/18 Pantoprazole Sodium [Protonix -] 40 mg PO DAILY #14 tablet.ec 02/22/18 Tiotropium [place] [Spiriva Respimat] 2 puff IH DAILY #1 inhaler 02/22/18 predniSONE [Deltasone -] 5 mg PO ASDIR #78 tab 02/22/18 Atorvastatin Ca [Lipitor] 20 mg PO HS 02/23/18 Furosemide [Lasix -] 80 mg PO DAILY #60 tablet 03/15/18 Insulin (Novolog) [Novolog Vial] See Protocol SQ BID PRN 03/23/18 Lactulose [Cephulac -] 10 - 20 gm PO DAILY PRN #1 bottle 03/23/18 Oxycodone HCl/Acetaminophen [Percocet 10-325 mg Tablet] 1 each PO QID #120 tablet MDD 4 03/23/18 Anemia: No Asthma: No Cancer: No Cardiac Disorders: Yes (cabg, AFIB) CVA: No COPD: Yes CHF: Yes Dementia: No Diabetes: Yes (with neuropathy) GI Disorders: No Disorders: No HTN: Yes Hypercholesterolemia: Yes Liver Disease: No Seizures: No Thyroid Disease: No - Surgical History Abdominal Surgery: No Appendectomy: No Cardiac Surgery: Yes (CABG x 3, implanted defib and pacer) Cholecystectomy: No Lung Surgery: No Neurologic Surgery: No Orthopedic Surgery: No - Immunization History Td Vaccination: Yes (unknown) Immunization Up to Date: Yes - Suicide/Smoking/Psychosocial Hx Smoking Status: Yes Smoking History: Never smoked Years of Tobacco Use: 40 Have you smoked in the past 12 months: No Number of Cigarettes Smoked Daily: 1 If you are a former smoker, when did you quit?: 06/20/16 Cigars Per Day: 0 Information on smoking cessation initiated: No 'Breaking Loose' booklet given: 01/07/18 Hx Alcohol Use: No Drug/Substance Use Hx: No Substance Use Type: None Hx Substance Use Treatment: No Review of Systems - Review of Systems Is the patient limited British proficient: No Constitutional: Yes: Weakness. No: Chills, Diaphoresis, Fever HEENTM: Yes: Difficulty Swallowing. No: Blurred Vision, Double Vision, Hearing Loss Respiratory: Yes: Orthopnea, Shortness of Breath, SOB with Exertion, SOB at Rest Cardiac (ROS): Yes: Chest Pain. No: Irregular Heart Rate, Lightheadedness, Palpitations, Chest Tightness ABD/GI: Yes: Difficulty Swallowing, Poor Fluid Intake. No: Constipated, Diarrhea : No: Dysuria, Discharge, Frequency, Flank Pain, Hematuria Integumentary: Yes: Bruising, Flushing. No: Dryness, Erythema, Lesions, Sweating Neurological: No: Headache, Numbness, Paresthesia, Weakness, Dizziness Hematologic/Lymphatic: No: Blood Clots, Easy Bleeding *Physical Exam - Vital Signs Last Vital Signs Temp Pulse Resp BP Pulse Ox 97.4 F L 60 24 H 168/97 96 03/28/18 05:24 03/28/18 05:24 03/28/18 05:24 03/28/18 05:24 03/28/18 05:24 - Physical Exam General Appearance: Yes: Disheveled, Moderate Distress, Obese HEENT: positive: Normal ENT Inspection, Normal Voice, Symmetrical, Hearing Decreased. negative: Pharyngeal Erythema, Tonsillar Exudate, TM Erythema Neck: positive: Tender, Trachea midline, Normal Thyroid, Supple. negative: Carotid bruit, Lymphadenopathy (R), Lymphadenopathy (L) Respiratory/Chest: positive: Chest Tender, Lungs Clear, Respiratory Distress, Decreased Breath Sounds. negative: Normal Breath Sounds (coarse BS), Crackles, Wheezing Vascular Pulses: Dorsalis-Pedis (R): 2+, Doralis-Pedis (L): 2+ Gastrointestinal/Abdominal: positive: Normal Bowel Sounds. negative: Guarding, Tenderness Musculoskeletal: negative: CVA Tenderness, Vertebral Tenderness Extremity: positive: Normal Capillary Refill, Normal Range of Motion, Pedal Edema, Swelling. negative: Calf Tenderness Neurologic: positive: Alert. negative: Fully Oriented (A&O x 2, not to time ) Moderate Sedation - Procedure Monitoring Vital Signs: Procedure Monitoring Vital Signs Temperature 97.4 F L 03/28/18 05:24 Pulse Rate 60 03/28/18 05:24 Respiratory Rate 24 H 03/28/18 05:24 Blood Pressure 168/97 03/28/18 05:24 O2 Sat by Pulse Oximetry (%) 96 03/28/18 05:24 *DC/Admit/Observation/Transfer Diagnosis at time of Disposition: Neck pain on right side - Referrals Referrals: Kanu Truong MD [Primary Care Provider] - - Patient Instructions - Post Discharge Activity
--- NOTE | 2018-03-28 07:14 | PDOC ---
*Physical Exam - Vital Signs Last Vital Signs Temp Pulse Resp BP Pulse Ox 97.4 F L 60 24 H 168/97 96 03/28/18 05:24 03/28/18 05:24 03/28/18 05:24 03/28/18 05:24 03/28/18 05:24 - Physical Exam Comments: 03/28/18 07:38 Gen: sleepy, but arousable, tachypnic to 44 heart: +s1s2 reg, pacer to L chest wall lungs: diminished b/l abd: soft, belly breathing, no ttp ext: no c/c/e ED Treatment Course - LABORATORY CBC & Chemistry Diagram: 03/28/18 07:15 03/28/18 07:15 Medical Decision Making - Critical Care Time Total Critical Care Time (minutes): 35 Critical Care Statement: The care of this patient involved high complexity decision making to prevent further life threatening deterioration of the patient 's condition and/or to evaluate & treat vital organ system(s) failure or risk of failure. - Medical Decision Making 03/28/18 07:13 62yo male brought in by his family for eval of sob. Pt signed out from the prior attending pending labs, cxr and further eval. Pulse ox was 91% on 2L nc 03/28/18 07:39 pt with sob x 3 days, denies cp no coughing pt with severely diminished bs pt nrb removed and placed on nebs, concern for hypercapnic resp failure/copd exacerbation will start steroids will most likely need admission PMD is Dr. Truong 03/28/18 08:12 pt is Flu +, also congestive changes on cxr will start tamiflu pt with copd exacerbation 03/28/18 09:36 pt with mildly elevated trop asa given consult placed to Dr. Zafar resident discussed the case with FRANK who accepts pt to service *DC/Admit/Observation/Transfer Diagnosis at time of Disposition: Neck pain on right side, Respiratory distress, COPD (chronic obstructive pulmonary disease), Acute exacerbation of CHF (congestive heart failure), Influenza A - Discharge Dispostion Condition at time of disposition: Guarded Decision to Admit order: Yes - Referrals Referrals: Kanu Truong MD [Primary Care Provider] - - Patient Instructions - Post Discharge Activity
--- NOTE | 2018-03-28 07:18 | PDOC ---
*Physical Exam - Vital Signs Last Vital Signs Temp Pulse Resp BP Pulse Ox 97.4 F L 60 24 H 168/97 96 03/28/18 05:24 03/28/18 05:24 03/28/18 05:24 03/28/18 05:24 03/28/18 05:24 - Physical Exam Comments: 03/28/18 07:20 Patient was signed out by Dr. Gibbs to me at 7:00 am shift change. ED Treatment Course - LABORATORY CBC & Chemistry Diagram: 03/28/18 07:15 03/28/18 07:15 Medical Decision Making - Medical Decision Making 03/28/18 08:14 Patient was reassessed by me. He has tachypnea with SOB. Per the patient he states he has been SOB over the past few days with increased oxygen use ( baseline is 1 L, up to 2-3 L/min). Patient has decreased breath sounds. Off NRB mask. placed on nasal canula. given duonebs, solumedrol. CXR shows increased pulmonary edema. BNP elevated from baseline. will give lasix 80 mg for diuresis. Influenza A positive. patient placed in isolation *DC/Admit/Observation/Transfer Diagnosis at time of Disposition: Neck pain on right side - Discharge Dispostion Condition at time of disposition: Fair - Referrals Referrals: Kanu Truong MD [Primary Care Provider] - - Patient Instructions - Post Discharge Activity
[2018-03-28] MEDS ORDERED: methylPREDNISolone NA SUCC 125 MG/2 ML VIAL IVPB ONE (07:38)
[2018-03-28] MEDS ORDERED: ALBUTEROL SO4 2.5/IPRATROPIUM 0.5 INH SOL 3 ML VIAL.NEB. NEB ONE (07:41)
[2018-03-28] MEDS ORDERED: methylPREDNISolone NA SUCC 125 MG/2 ML VIAL ONE (07:42)
[2018-03-28] MEDS: ALBUTEROL SO4 2.5/IPRATROPIUM 0.5 INH SOL 3 ML VIAL.NEB. NEB SCH ×5 (07:42→20:11)
[2018-03-28 07:54] LABS: VENOUS PC02 42.2 mmHg (38-52); VENOUS PH 7.45 (7.32-7.42); VENOUS PO2 56.7 mmHg (28-48)
[2018-03-28] MEDS ORDERED: OSELTAMIVIR PHOSPHATE 75 MG CAPSULE PO ONE (08:10)
[2018-03-28] MEDS ORDERED: FUROSEMIDE 40 MG/4 ML INJECTABLE VIAL IVPUSH ONE (08:13)
[2018-03-28 08:17] LABS: INR 1.36 (0.83-1.09); PROTHROMBIN TIME (PATIENT) 16.1 SEC (9.7-13.0)
[2018-03-28 08:22] LABS: BASO % 0.8 % (0-2.0); EOS % 0.4 % (0-4.5); HEMATOCRIT 29.9 % (35.4-49); HEMOGLOBIN 9.7 GM/dL (11.7-16.9); LYMPH % 4.3 % (8-40); MCH 30.6 pg (25.7-33.7); MCHC 32.4 g/dl (32.0-35.9); MEAN CELL VOLUME 94.3 fl (80-96); MEAN PLT VOLUME 8.4 fl (7.5-11.1); MONO % 6.8 % (3.8-10.2); NEUT % 87.7 % (42.8-82.8); PLATELET COUNT 220 K/MM3 (134-434); RBC 3.17 M/mm3 (4.00-5.60); RDW 16.1 % (11.9-15.9); WHITE BLOOD COUNT 13.1 K/mm3 (4.0-10.0)
[2018-03-28] MEDS ORDERED: OSELTAMIVIR PHOSPHATE 75 MG CAPSULE ONE (08:23)
[2018-03-28] MEDS ORDERED: FUROSEMIDE 40 MG/4 ML INJECTABLE VIAL ONE (08:27)
[2018-03-28 08:50] LABS: ALBUMIN 2.8 g/dl (3.4-5.0); ALK PHOS 127 U/L (45-117); ANION GAP 12 MMOL/L (8-16); BILIRUBIN,TOTAL 0.9 mg/dL (0.2-1); BLOOD UREA NITROGEN 29 mg/dL (7-18); CALCIUM 8.6 mg/dL (8.5-10.1); CHLORIDE 97 mmol/L (98-107); CO2 29 mmol/L (21-32); GLUCOSE,RANDOM 184 mg/dL (74-106); POTASSIUM 4.2 mmol/L (3.5-5.1); SGOT/AST 58 U/L (15-37); SGPT/ALT 23 U/L (13-61); SODIUM 138 mmol/L (136-145); TOT PROT 6.2 g/dl (6.4-8.2)
[2018-03-28] MEDS ORDERED: ACETAMINOPHEN 1000 MG/100 ML VIAL (NON FORMULARY) IVPB ONE (09:13)
[2018-03-28] MEDS ORDERED: LIDOCAINE 5% TOPICAL PATCH TP ONE (09:14)
[2018-03-28] MEDS ORDERED: ASPIRIN 81 MG CHEWABLE TABLETS PO ONE (09:20)
[2018-03-28] MEDS ORDERED: CEFTRIAXONE 1,000 MG in DEXTROSE 5%-WATER - 50 ML IVPB ONE (09:32)
[2018-03-28] MEDS ORDERED: AZITHROMYCIN IVPB 500 MG in DEXTROSE 5%-WATER - 250 ML IVPB ONE (09:32)
[2018-03-28] MEDS ORDERED: ACETAMINOPHEN INJECTION 100 ML IVPB ONE (09:38)
[2018-03-28] MEDS ORDERED: LIDOCAINE 5% TOPICAL PATCH ONE (09:38)
[2018-03-28] MEDS ORDERED: ASPIRIN 81 MG CHEWABLE TABLETS ONE (09:38)
--- NOTE | 2018-03-28 09:47 | HP ---
CHIEF COMPLAINT: " Shortness of breath) PCP: HARITHA Moura HISTORY OF PRESENT ILLNESS: Patient is a 62 year old male was brought in to the ED by family members due to shortness of breath. As per the patient, he has been having shortness of breath since a couple of days, even at rest, worse on exertion. Denies orthopnea, PND, chest pain, palpitation, cough, fever, chills, rigors or sweating. No sick contacts. Bowel/Bladder habit normal. Sleep/Appetite normal. As per ED note, patient was complaining of chest pain, 10/10 in intensity, constant. On arrival to the ED, patient was hypotxic to 92 % @ 3L then was placed in NRB with improvement in saturation. Labs were significant for leukocytosis of 13.1; Lactic acid of 2.1. Influenza A positive, CXR showed Left infiltrate. Tamiflu was started, One dose of Vanc and Zosyn given in the ED, IV Lasix 80 mg given with improvement in breathing. Patient was recently admitted at [facility] on 03/12/2018-03/15/18 due to mechanical fall and COPD exacerbation. Evaluated by Neurology and cardio with no active issues and was sent home. Recent Travel: None PAST MEDICAL HISTORY: COPD on 3L home O2, pEFHF, CAD, ICD placement, PAD, DM, Atrial fibrillation not on A/c due to risk of fall PAST SURGICAL HISTORY: CABG x 3, s/p ICD placement Social History: Smoking: Smoked for 40 yrs, quit in 06/20/16 Alcohol: Denies Drugs: Denies Family History: Non contributory Allergies Fish Containing Products Allergy (Verified 03/28/18 05:49) codeine Adverse Reaction (Intermediate, Verified 03/28/18 05:49) Vomiting gabapentin Adverse Reaction (Intermediate, Verified 03/28/18 05:49) dizzy HOME MEDICATIONS: Home Medications Medication Instructions Recorded Aspirin [Aspirin EC] 81 mg PO DAILY 06/18/15 Zolpidem Tartrate [Ambien] 10 mg PO HS 06/18/15 Psyllium [Metamucil (Sugar-Free) -] 5.85 gm PO BID #1 bottle 06/02/17 Docusate Sodium [Colace -] 100 mg PO TID #90 capsule 09/22/17 Cholecalciferol (Vitamin D3) 2,000 unit PO DAILY #30 capsule 12/25/17 [Vitamin D3] Budesonide/Formeterol Fumarate 1 puff IH DAILY inhaler 12/30/17 [SYMBICORT 160/4.5mcg -] Cyclobenzaprine HCl 5 mg PO BID #28 tablet 12/30/17 Glipizide [Glucotrol -] 5 mg PO BID 01/11/18 Carvedilol [Coreg -] 25 mg PO BID #60 tablet 02/14/18 Pantoprazole Sodium [Protonix -] 40 mg PO DAILY #14 tablet.ec 02/22/18 Tiotropium [place] [Spiriva 2 puff IH DAILY #1 inhaler 02/22/18 Respimat] predniSONE [Deltasone -] 5 mg PO ASDIR #78 tab 02/22/18 Atorvastatin Ca [Lipitor] 20 mg PO HS 02/23/18 Furosemide [Lasix -] 80 mg PO DAILY #60 tablet 03/15/18 Insulin (Novolog) [Novolog Vial] See Protocol SQ BID PRN 03/23/18 Lactulose [Cephulac -] 10 - 20 gm PO DAILY PRN #1 bottle 03/23/18 Oxycodone HCl/Acetaminophen 1 each PO QID #120 tablet MDD 4 03/23/18 [Percocet 10-325 mg Tablet] REVIEW OF SYSTEMS CONSTITUTIONAL: Absent: fever, chills, diaphoresis, generalized weakness, malaise, loss of appetite, weight change HEENT: Absent: rhinorrhea, nasal congestion, throat pain, throat swelling, difficulty swallowing, mouth swelling, ear pain, eye pain, visual changes CARDIOVASCULAR: Absent: chest pain, syncope, palpitations, irregular heart rate, lightheadedness , peripheral edema RESPIRATORY: Present: shortness of breath, dyspnea with exertion, Absent: cough, orthopnea, wheezing, stridor, hemoptysis GASTROINTESTINAL: Absent: abdominal pain, abdominal distension, nausea, vomiting, diarrhea, constipation, melena, hematochezia GENITOURINARY: Absent: dysuria, frequency, urgency, hesitancy, hematuria, flank pain, genital pain MUSCULOSKELETAL: Absent: myalgia, arthralgia, joint swelling, back pain, neck pain SKIN: Absent: rash, itching, pallor HEMATOLOGIC/IMMUNOLOGIC: Absent: easy bleeding, easy bruising, lymphadenopathy, frequent infections ENDOCRINE: Absent: unexplained weight gain, unexplained weight loss, heat intolerance, cold intolerance NEUROLOGIC: Absent: headache, focal weakness or paresthesias, dizziness, unsteady gait, seizure, mental status changes, bladder or bowel incontinence PSYCHIATRIC: Absent: anxiety, depression, suicidal or homicidal ideation, hallucinations. PHYSICAL EXAMINATION Vital Signs - 24 hr 03/28/18 03/28/18 03/28/18 05:24 05:59 07:52 Temperature 97.4 F L Pulse Rate 60 72 Pulse Rate [ 65 Left Radial] Respiratory 24 H 23 H Rate Blood Pressure 168/97 Blood Pressure 155/78 [Right Arm] O2 Sat by Pulse 96 92 L 99 Oximetry (%) GENERAL: Middle aged obese male, lying in bed, Awake, alert, and fully oriented , in mild respiratory distress. HEAD: Normal with no signs of trauma. EYES:EOM intact, no pallor or icterus. EARS, NOSE, THROAT: Ears normal, drt mucous membranes. NECK:Supple. LUNGS: B/L Breath sounds equal, bibasilar crackles, No accessory muscle use. HEART: Irregularly irregular, rate, normal S1 and S2 with systolic murmur. ABDOMEN: Soft, nontender, no organomegaly. MUSCULOSKELETAL: Normal range of motion at all joints. No bony deformities or tenderness. No CVA tenderness. UPPER EXTREMITIES: 2+ pulses, warm, well-perfused. No cyanosis. No clubbing. No peripheral edema. LOWER EXTREMITIES: 2+ pulses, warm, well-perfused. No calf tenderness. Pitting edema b/l. NEUROLOGICAL: No facial droop. Normal speech. Gait not observed. PSYCHIATRIC: Cooperative. Good eye contact. Appropriate mood and affect. SKIN: Warm, dry, normal turgor, no rashes or lesions noted, normal capillary refill. Laboratory Results - last 24 hr 03/28/18 03/28/18 03/28/18 07:15 07:15 07:15 WBC 13.1 H RBC 3.17 L Hgb 9.7 L Hct 29.9 L MCV 94.3 MCH 30.6 MCHC 32.4 RDW 16.1 H Plt Count 220 D MPV 8.4 Absolute Neuts (auto) 11.5 H Neutrophils % 87.7 H D Lymphocytes % 4.3 L D Monocytes % 6.8 Eosinophils % 0.4 D Basophils % 0.8 Nucleated RBC % 0 PT with INR 16.10 H INR 1.36 H VBG pH POC VBG pCO2 POC VBG pO2 Mixed VBG HCO3 Sodium 138 Potassium 4.2 Chloride 97 L Carbon Dioxide 29 Anion Gap 12 BUN 29 H Creatinine 2.0 H Creat Clearance w eGFR 34.03 Random Glucose 184 H Lactic Acid Calcium 8.6 Magnesium 2.0 Total Bilirubin 0.9 AST 58 H ALT 23 Alkaline Phosphatase 127 H Creatine Kinase 36 Troponin I 0.07 H B-Natriuretic Peptide Total Protein 6.2 L Albumin 2.8 L Influenza A (Rapid) Influenza B (Rapid) 03/28/18 03/28/18 03/28/18 07:15 07:15 07:15 WBC RBC Hgb Hct MCV MCH MCHC RDW Plt Count MPV Absolute Neuts (auto) Neutrophils % Lymphocytes % Monocytes % Eosinophils % Basophils % Nucleated RBC % PT with INR INR VBG pH POC VBG pCO2 POC VBG pO2 Mixed VBG HCO3 Sodium Potassium Chloride Carbon Dioxide Anion Gap BUN Creatinine Creat Clearance w eGFR Random Glucose Lactic Acid 2.1 H Calcium Magnesium Total Bilirubin AST ALT Alkaline Phosphatase Creatine Kinase Troponin I B-Natriuretic Peptide 42454.6 H Total Protein Albumin Influenza A (Rapid) Positive Influenza B (Rapid) Negative 03/28/18 07:44 WBC RBC Hgb Hct MCV MCH MCHC RDW Plt Count MPV Absolute Neuts (auto) Neutrophils % Lymphocytes % Monocytes % Eosinophils % Basophils % Nucleated RBC % PT with INR INR VBG pH 7.45 H POC VBG pCO2 42.2 POC VBG pO2 56.7 H D Mixed VBG HCO3 28.9 H Sodium Potassium Chloride Carbon Dioxide Anion Gap BUN Creatinine Creat Clearance w eGFR Random Glucose Lactic Acid Calcium Magnesium Total Bilirubin AST ALT Alkaline Phosphatase Creatine Kinase Troponin I B-Natriuretic Peptide Total Protein Albumin Influenza A (Rapid) Influenza B (Rapid) ASSESSMENT/PLAN: Patient is a 62 year old male with significant past medical history of COPD on 3L home O2, pEFHF, CAD, ICD placement, PAD, DM, Atrial fibrillation not on A/c due to risk of fall was brought in to the ED by family members due to shortness of breath. # Acute hypoxic respiratory failure likely secondary to CHF/COPD exacerbation superimposed by Pneumonia and Flu c/o SOB at rest and worsened on exertion; hypoxic to 92 @ 3L on arrival SOB improved wiht IV Lasix 80 mg and NRB, currently on Nasal canula saturating > 95 % BNP 51735.6 Admit in Tele-Inpatient/continuous cardiac monitoring Continue PO Lasix 80 mg (home dose) Continue Symbicort, Albuterol PRN Was given a dose of IV Solumedrol 125 mg in the ED, will continue IV Solu- medrol 40mg Q8H Patient on Prednisone taper at home(called pharmacy to confirm the dose but its closed today), have to reconfirm it tomorrow. Strict I's and O's Daily weight. Cardiology consult requested # Pneumonia and Flu Leukocytosis of 13.1; Lactic acid 2.1---> pending, trend Influenza A positive. Was given a dose of Tamiflu in the ED. Will continue Tamiflu 75 mg PO BID Since patient was recently hospitalized, will continue IV Zosyn 3.375 gm Q6H Will monitor creatinine CXR in AM. Awaiting blood cultures. # Elevated troponins likely from Demand ischemia Troponins 0.07 ---. pending. Will trend. ACS less likely # Prolonged Qtc 582 Avoid any Qtc prolonging agents # CKD creatinine 2 (around his baseline) Avoid Nephrotoxic drugs # Normocytic anemia H/H 9.7/29.9, stable. likely from CKD # Atrial fibrillation CHADsVASc score of 4. Not on a/c due to risk of fall # Hypertension-controlled Continue Carvedilol 25 mg PO BID # Pharmacy: Called today to confirm home meds, but it is closed. # FEN Not on IV fluids due to volume overloaded. Electrolytes Hypomag 1.7, repleted Diabetic diet/fat controlled # Prophylaxis For DVT: On Heparin 5000 IU sq TID FoR GI: Not indicated # Code status: Full Code # Dispo:Admit to tele inpatient. Duration of stay unknown. Illness, Investigation and Plan of care explained to the patient. He verbalized understanding. Case discussed with Dr. Pugh Problem List - Problem (1) Acute exacerbation of CHF (congestive heart failure) Code(s): I50.9 - HEART FAILURE, UNSPECIFIED Qualifiers: (2) Influenza A Code(s): J10.1 - FLU DUE TO OTH IDENT INFLUENZA VIRUS W OTH RESP MANIFEST (3) Neck pain on right side Code(s): M54.2 - CERVICALGIA (4) Respiratory distress Code(s): R06.00 - DYSPNEA, UNSPECIFIED (5) COPD (chronic obstructive pulmonary disease) Code(s): J44.9 - CHRONIC OBSTRUCTIVE PULMONARY DISEASE, UNSPECIFIED (6) ERROL (acute kidney injury) Code(s): N17.9 - ACUTE KIDNEY FAILURE, UNSPECIFIED (7) Afib Code(s): I48.91 - UNSPECIFIED ATRIAL FIBRILLATION Qualifiers: Atrial fibrillation type: chronic Qualified Code(s): I48.2 - Chronic atrial fibrillation Visit type - Emergency Visit Emergency Visit: Yes ED Registration Date: 03/28/18 Care time: The patient presented to the Emergency Department on the above date and was hospitalized for further evaluation of their emergent condition. - New Patient This patient is new to me today: Yes Date on this admission: 03/28/18 - Critical Care Critical Care patient: No
[2018-03-28] MEDS ORDERED: VANCOMYCIN 1 GRAM (PRE-DOCKED) 1,000 MG/250 ML BAG IVPB ONE ×2 (10:30→11:34)
[2018-03-28] MEDS ORDERED: PIPERACILLIN/TAZOB 2.25 GM 2.25 GM in DEXTROSE 5%-WATER - 50 ML IVPB ONE (10:30)
[2018-03-28] MEDS ORDERED: predniSONE 5 MG TABLET (UD) PO SCH (11:00)
[2018-03-28] MEDS ORDERED: INSULIN SLIDING SCALE (NOVOLOG) 1 VIAL SQ SCH ×2 (11:00)
[2018-03-28] MEDS ORDERED: PIPERACILLIN/TAZOB 2.25 GM 2.25 GM/50 ML BAG IVPB ONE (11:34)
[2018-03-28] MEDS ORDERED: INSULIN (NOVOLOG) ASPART 100 UNITS/ML 10ML VIAL ONE ×2 (11:34→16:42)
--- NOTE | 2018-03-28 12:47 | CON.ID ---
Consult - History of Present Illness History of Present Illness: 62 y.o. male with PMH of COPD on home O2, CHF, CAD s/p CABG, AICD, bioprosthetic AVR, MR, Atrial Fibrillation, CKD, HTN, DM and PVD presents because of family concern for worsening SOB for the past few days. Pt was recently admitted to the hospital from 03/12/18-03/15/18 and treated for COPD exacerbation and frequent falls with improvement of symptoms prior to discharge. Pt himself denies productive cough, fever/chills, headache, neck stiffness, abd pain/n/v/d, or dysuria. In the ER patient was noted to be tachypneic (RR 44) and lethargic but arousable. Pt also found to have leukocytosis (wbc 13.1) and elevated lactate (2.1). Rapid influenza A + and CXR revealing congestion and Lt basilar infiltrate. Currently patient is alert and responsive. - History Source History Provided By: Patient, Family Member, Medical Record Limitations to Obtaining History: No Limitations - Past Medical History Cardio/Vascular: Yes: AFIB (after CABG briefly; not on AC), CAD, CHF (systolic) , HTN, Mitral Insufficiency, Other (bioprosthetic AVR, CABG, PVD, s/p AICD, MR) Pulmonary: Yes: Bronchitis, COPD, O2 Dependent (3 L), Pneumonia Gastrointestinal: Yes: Constipation Renal/: Yes: Renal Inusuff (satge 3) Endocrine: Yes: Diabetes Mellitus - Past Surgical History Past Surgical History: Yes: AICD, CABG - Alcohol/Substance Use Hx Alcohol Use: No History of Substance Use: reports: None, Cocaine - Smoking History Smoking history: Never smoked Have you smoked in the past 12 months: No Aproximately how many cigarettes per day: 1 If you are a former smoker, when did you quit?: 06/20/16 - Social History Usual Living Arrangement: With Spouse ADL: Independent History of Recent Travel: No Home Medications - Allergies Allergies/Adverse Reactions: Allergies Allergy/AdvReac Type Severity Reaction Status Date / Time Fish Containing Products Allergy Verified 03/28/18 05:49 codeine AdvReac Intermediate Vomiting Verified 03/28/18 05:49 gabapentin AdvReac Intermediate dizzy Verified 03/28/18 05:49 - Home Medications Home Medications: Ambulatory Orders Aspirin [Aspirin EC] 81 mg PO DAILY 06/18/15 Zolpidem Tartrate [Ambien] 10 mg PO HS 06/18/15 Psyllium [Metamucil (Sugar-Free) -] 5.85 gm PO BID #1 bottle 06/02/17 Docusate Sodium [Colace -] 100 mg PO TID #90 capsule 09/22/17 Cholecalciferol (Vitamin D3) [Vitamin D3] 2,000 unit PO DAILY #30 capsule Budesonide/Formeterol Fumarate [SYMBICORT 160/4.5mcg -] 1 puff IH DAILY inhaler 12/30/17 Cyclobenzaprine HCl 5 mg PO BID #28 tablet 12/30/17 Glipizide [Glucotrol -] 5 mg PO BID 01/11/18 Carvedilol [Coreg -] 25 mg PO BID #60 tablet 02/14/18 Pantoprazole Sodium [Protonix -] 40 mg PO DAILY #14 tablet.ec 02/22/18 Tiotropium [place] [Spiriva Respimat] 2 puff IH DAILY #1 inhaler 02/22/18 predniSONE [Deltasone -] 5 mg PO ASDIR #78 tab 02/22/18 Atorvastatin Ca [Lipitor] 20 mg PO HS 02/23/18 Furosemide [Lasix -] 80 mg PO DAILY #60 tablet 03/15/18 Insulin (Novolog) [Novolog Vial] See Protocol SQ BID PRN 03/23/18 Lactulose [Cephulac -] 10 - 20 gm PO DAILY PRN #1 bottle 03/23/18 Oxycodone HCl/Acetaminophen [Percocet 10-325 mg Tablet] 1 each PO QID #120 tablet MDD 4 03/23/18 Family Disease History - Family Disease History Family Disease History: Heart Disease: Father (etoh), Mother (, cva), Other: Brother (alive - Ramírez - hx etoh), Sister (five - alive - no medical problems), Son (two adults - no problems) Review of Systems - Review of Systems Constitutional: reports: Lethargy. denies: No Symptoms, Chills, Diaphoresis, Fever, Loss of Appetite, Malaise, Night Sweats, Unintentional Wgt. Loss, Weakness, Other Eyes: reports: No Symptoms. denies: Blind Spots, Blurred Vision, Double Vision , Eye Pain, Floaters, Photophobia, Recent Change in Vision, Other HENT: reports: No Symptoms. denies: Difficult Swallowing, Ear Discharge, Ear Pain, Epistaxis, Gingival Bleeding, Hearing Loss, Mouth Swelling, Nasal Congestion, Ocular Prosthesis, Throat Pain, Toothache, Ringing in Ears, Other Neck: reports: No Symptoms. denies: Decreased ROM, Lumps, Pain on Movement, Stiffness, Swollen Glands, Tenderness, Other Cardiovascular: reports: Chest Pain (discomfort across chest) Respiratory: reports: SOB Gastrointestinal: reports: No Symptoms Genitourinary: reports: No Symptoms Breasts: reports: No Symptoms Reported Musculoskeletal: reports: No Symptoms Integumentary: reports: No Symptoms Neurological: reports: No Symptoms Endocrine: reports: No Symptoms Hematology/Lymphatic: reports: No Symptoms Psychiatric: reports: No Symptoms Physical Exam Vital Signs: Vital Signs Temperature 97.4 F L 03/28/18 05:24 Pulse Rate 65 03/28/18 07:52 Respiratory Rate 23 H 03/28/18 07:52 Blood Pressure 155/78 03/28/18 07:52 O2 Sat by Pulse Oximetry (%) 99 03/28/18 07:52 Constitutional: Yes: No Distress, Calm Eyes: Yes: Conjunctiva Clear HENT: Yes: Atraumatic Neck: Yes: Supple Cardiovascular: Yes: Regular Rate and Rhythm Respiratory: Yes: Diminished Gastrointestinal: Yes: Normal Bowel Sounds, Soft Renal/: Yes: WNL Musculoskeletal: Yes: WNL Extremities: Yes: WNL Edema: No Labs: CBC, BMP 03/28/18 07:15 03/28/18 07:15 Imaging - Results Chest X-ray: Report Reviewed (increase congestion, Lt basilar infiltrate) Problem List - Problems (1) Acute exacerbation of CHF (congestive heart failure) Code(s): I50.9 - HEART FAILURE, UNSPECIFIED Qualifiers: (2) Influenza A Code(s): J10.1 - FLU DUE TO OTH IDENT INFLUENZA VIRUS W OTH RESP MANIFEST (3) Respiratory distress Code(s): R06.00 - DYSPNEA, UNSPECIFIED (4) COPD (chronic obstructive pulmonary disease) Code(s): J44.9 - CHRONIC OBSTRUCTIVE PULMONARY DISEASE, UNSPECIFIED (5) Afib Code(s): I48.91 - UNSPECIFIED ATRIAL FIBRILLATION Qualifiers: Atrial fibrillation type: chronic Qualified Code(s): I48.2 - Chronic atrial fibrillation (6) Chronic respiratory failure Code(s): J96.10 - CHRONIC RESPIRATORY FAILURE, UNSP W HYPOXIA OR HYPERCAPNIA (7) Pneumonia Code(s): J18.9 - PNEUMONIA, UNSPECIFIED ORGANISM Qualifiers: Pneumonia type: due to unspecified organism Laterality: left Lung location: lower lobe of lung Qualified Code(s): J18.1 - Lobar pneumonia, unspecified organism (8) S/P AVR Code(s): Z95.2 - PRESENCE OF PROSTHETIC HEART VALVE (9) CAD (coronary artery disease) Code(s): I25.10 - ATHSCL HEART DISEASE OF [place] CORONARY ARTERY W/O ANG PCTRS Qualifiers: [place] vs. transplanted heart: [place] heart Associated angina: without angina (10) COPD (chronic obstructive pulmonary disease) Code(s): J44.9 - CHRONIC OBSTRUCTIVE PULMONARY DISEASE, UNSPECIFIED Qualifiers: COPD type: COPD with acute exacerbation Qualified Code(s): J44.1 - Chronic obstructive pulmonary disease with (acute) exacerbation (11) Chronic kidney disease (CKD) Code(s): N18.9 - CHRONIC KIDNEY DISEASE, UNSPECIFIED Qualifiers: Chronic kidney disease stage: stage 3 (moderate) Qualified Code(s): N18.3 - Chronic kidney disease, stage 3 (moderate) (12) Diabetes mellitus with chronic kidney disease Code(s): E11.22 - TYPE 2 DIABETES MELLITUS W DIABETIC CHRONIC KIDNEY DISEASE; N18.9 - CHRONIC KIDNEY DISEASE, UNSPECIFIED Qualifiers: Diabetes mellitus type: type 2 Chronic kidney disease stage: stage 3 ( moderate) (13) Peripheral vascular disease Code(s): I73.9 - PERIPHERAL VASCULAR DISEASE, UNSPECIFIED (15) Acute on chronic respiratory failure with hypoxemia Code(s): J96.21 - ACUTE AND CHRONIC RESPIRATORY FAILURE WITH HYPOXIA Assessment/Plan 62 y.o. male with PMH of COPD on home O2, CHF, CAD s/p CABG, AICD, bioprosthetic AVR, MR, Atrial Fibrillation, CKD, HTN, DM and PVD presenting with SOB/tachynea, chest discomfort, leukocytosis, lactic acidosis, pulmonary congestion. Recently admitted to the hospital Influenza A Possible HCAP Sepsis Acute on chronic CHF COPD CKD DM CAD s/p CABG s/p AICD s/p AVR MR AFIB -- continue Tamiflu, droplet precautions -- will start Zosyn empirically , one dose of Vancomycin given (renal dosing) -- repeat lactate, follow up blood cultures -- monitor vitals, wbc trend -- Pulmonary/Cardiology evaluation Will Follow up Thank you
[2018-03-28] MEDS ORDERED: ALBUTEROL SO4 0.083% IH SOL 2.5 MG/3 ML VIAL.NEB. NEB PRN (13:56)
--- NOTE | 2018-03-28 14:16 | PN ---
Teaching Attending Note Name of Resident: Paula Yeung ATTENDING PHYSICIAN STATEMENT I saw and evaluated the patient. I reviewed the resident's note and discussed the case with the resident. I agree with the resident's findings and plan as documented. SUBJECTIVE: This is a 62 year old man with a history of COPD, chronic hypoxic respiratory failure, CAD, chronic diastolic heart failure, AICD, PAD, type 2 DM , diabetic neuropathy, pulm HTN, atrial fib, stage 3 CKD, falls who comes to the ED complaining of SOB at rest, worse with exertion, for several days associated with chills and aches. He had been admitted here 03/12-03/15 after a fall. OBJECTIVE: Vital Signs Period Temp Pulse Resp BP Sys/El Pulse Ox Last 24 Hr 97.4 F-98.3 F 60-72 18-24 118-168/54-97 92-99 HEART: Irregular LUNGS: Bilateral crackles ABDOMEN: Soft, non-tender, non-distended, normal BS EXTREMITIES: No edema Laboratory Tests 03/28/18 03/28/18 03/28/18 07:15 07:15 07:15 WBC 13.1 H RBC 3.17 L Hgb 9.7 L Hct 29.9 L MCV 94.3 MCH 30.6 MCHC 32.4 RDW 16.1 H Plt Count 220 D MPV 8.4 Absolute Neuts (auto) 11.5 H Neutrophils % 87.7 H D Lymphocytes % 4.3 L D Monocytes % 6.8 Eosinophils % 0.4 D Basophils % 0.8 Nucleated RBC % 0 PT with INR 16.10 H INR 1.36 H VBG pH POC VBG pCO2 POC VBG pO2 Mixed VBG HCO3 Sodium 138 Potassium 4.2 Chloride 97 L Carbon Dioxide 29 Anion Gap 12 BUN 29 H Creatinine 2.0 H Creat Clearance w eGFR 34.03 POC Glucometer Random Glucose 184 H Lactic Acid Calcium 8.6 Magnesium 2.0 Total Bilirubin 0.9 AST 58 H ALT 23 Alkaline Phosphatase 127 H Creatine Kinase 36 Troponin I 0.07 H B-Natriuretic Peptide Total Protein 6.2 L Albumin 2.8 L Influenza A (Rapid) Influenza B (Rapid) 03/28/18 03/28/18 03/28/18 07:15 07:15 07:15 WBC RBC Hgb Hct MCV MCH MCHC RDW Plt Count MPV Absolute Neuts (auto) Neutrophils % Lymphocytes % Monocytes % Eosinophils % Basophils % Nucleated RBC % PT with INR INR VBG pH POC VBG pCO2 POC VBG pO2 Mixed VBG HCO3 Sodium Potassium Chloride Carbon Dioxide Anion Gap BUN Creatinine Creat Clearance w eGFR POC Glucometer Random Glucose Lactic Acid 2.1 H Calcium Magnesium Total Bilirubin AST ALT Alkaline Phosphatase Creatine Kinase Troponin I B-Natriuretic Peptide 16514.6 H Total Protein Albumin Influenza A (Rapid) Positive Influenza B (Rapid) Negative 03/28/18 03/28/18 07:44 11:45 WBC RBC Hgb Hct MCV MCH MCHC RDW Plt Count MPV Absolute Neuts (auto) Neutrophils % Lymphocytes % Monocytes % Eosinophils % Basophils % Nucleated RBC % PT with INR INR VBG pH 7.45 H POC VBG pCO2 42.2 POC VBG pO2 56.7 H D Mixed VBG HCO3 28.9 H Sodium Potassium Chloride Carbon Dioxide Anion Gap BUN Creatinine Creat Clearance w eGFR POC Glucometer [id number] Random Glucose Lactic Acid Calcium Magnesium Total Bilirubin AST ALT Alkaline Phosphatase Creatine Kinase Troponin I B-Natriuretic Peptide Total Protein Albumin Influenza A (Rapid) Influenza B (Rapid) Home Medications Medication Instructions Recorded Aspirin [Aspirin EC] 81 mg PO DAILY 06/18/15 Zolpidem Tartrate [Ambien] 10 mg PO HS 06/18/15 Psyllium [Metamucil (Sugar-Free) -] 5.85 gm PO BID #1 bottle 06/02/17 Docusate Sodium [Colace -] 100 mg PO TID #90 capsule 09/22/17 Cholecalciferol (Vitamin D3) 2,000 unit PO DAILY #30 capsule 12/25/17 [Vitamin D3] Budesonide/Formeterol Fumarate 1 puff IH DAILY inhaler 12/30/17 [SYMBICORT 160/4.5mcg -] Cyclobenzaprine HCl 5 mg PO BID #28 tablet 12/30/17 Glipizide [Glucotrol -] 5 mg PO BID 01/11/18 Carvedilol [Coreg -] 25 mg PO BID #60 tablet 02/14/18 Pantoprazole Sodium [Protonix -] 40 mg PO DAILY #14 tablet.ec 02/22/18 Tiotropium [place] [Spiriva 2 puff IH DAILY #1 inhaler 02/22/18 Respimat] predniSONE [Deltasone -] 5 mg PO ASDIR #78 tab 02/22/18 Atorvastatin Ca [Lipitor] 20 mg PO HS 02/23/18 Furosemide [Lasix -] 80 mg PO DAILY #60 tablet 03/15/18 Insulin (Novolog) [Novolog Vial] See Protocol SQ BID PRN 03/23/18 Lactulose [Cephulac -] 10 - 20 gm PO DAILY PRN #1 bottle 03/23/18 Oxycodone HCl/Acetaminophen 1 each PO QID #120 tablet MDD 4 03/23/18 [Percocet 10-325 mg Tablet] ASSESSMENT AND PLAN: This is a 62 year old man with a history of COPD, chronic hypoxic respiratory failure, CAD, chronic diastolic heart failure, AICD, PAD, type 2 DM, diabetic neuropathy, pulm HTN, atrial fib, stage 3 CKD, falls who presented to the ED with SOB, chills, aches. 1. Acute on chronic hypoxic respiratory secondary to acute on chronic diastolic heart failure, acute exacerbation of COPD, sepsis (tachypnea, leukocytosis), healthcare associated pneumonia, influenza A - Admit to telemetry - Lasix IV - SoluMedrol - Hold Symbicort, Spiriva, Prednisone - DuoNeb - Albuterol as needed - Oxygen to maintain saturation >90% - Was given Vancomycin in ED - Tamiflu, Zosyn - Repeat lactic acid - I&O - Daily weight - Repeat CXR in AM - Pulmonary, ID, cardiology consults 2. CAD - Continue aspirin, Coreg, Lipitor 3. Permanent atrial fibrillation - Not on anticoagulation secondary to fall risk 4. HTN - Continue Coreg, Lasix 5. Pulmonary HTN 6. History of AICD 7. Type 2 DM with peripheral neuropathy - Hold glipizide - Fingersticks with Novolog sliding scale 8. Peripheral artery disease 9. Stage 3 CKD - Stable 10. Normocytic anemia, chronic - TSH low, FT4 high 12/2017 - Repeat TFTs - Check B12, folate, iron studies
[2018-03-28] MEDS ORDERED: HEPARIN NA (PORCINE) 5,000 UNITS/ML 1ML VIAL ONE (14:40)
[2018-03-28] MEDS ORDERED: DOCUSATE SODIUM 100 MG CAPSULE (FP) PO ONE (14:40)
[2018-03-28] MEDS ORDERED: PIPERACILLIN/TAZOB 3.375 GM 3.375 GM/50 ML BAG IVPB ONE (14:41)
[2018-03-28] MEDS: HEPARIN NA (PORCINE) 5,000 UNITS/ML 1ML VIAL SQ SCH ×2 (14:51→21:18)
[2018-03-28] MEDS: DOCUSATE SODIUM 100 MG CAPSULE (FP) PO SCH ×2 (14:51→21:19)
[2018-03-28] MEDS: PIPERACILLIN/TAZOB 3.375 GM 3.375 GM in DEXTROSE 5%-WATER - 50 ML IVPB SCH ×2 (15:16→21:18)
[2018-03-28] MEDS: INSULIN SLIDING SCALE (NOVOLOG) 1 VIAL SQ SCH ×2 (16:41→21:17)
[2018-03-28 17:08] LABS: MAGNESIUM 1.7 mg/dL (1.8-2.4); PHOSPHOROUS 2.9 mg/dL (2.5-4.9)
[2018-03-28] MEDS ORDERED: MAGNESIUM SULF 50% (8.12 MEQ/2 ML-1 GM VIAL) IVPB ONE (17:11)
[2018-03-28] MEDS: methylPREDNISolone NA SUCC 40 MG/1 ML VIAL IVPUSH SCH (18:18)
[2018-03-28] MEDS ORDERED: oxyCODONE HCL 5 MG TABLET PO ONE (20:45)
[2018-03-28] MEDS ORDERED: PT OWN MED DRAWER 7, Y5N ONE (21:03)
[2018-03-28] MEDS: CYCLOBENZAPRINE HCL 10 MG TABLET (FP) PO SCH (21:18)
[2018-03-28] MEDS: ZOLPIDEM TARTRATE 5 MG TABLET PO PRN (21:18)
[2018-03-28] MEDS: ATORVASTATIN CA 20 MG TABLET (FP) PO SCH (21:19)
[2018-03-28] MEDS: PSYLLIUM 5.85 GM PACKET PO SCH (21:19)
[2018-03-28] MEDS: CARVEDILOL 25 MG TABLET (FP) PO SCH (21:19)
[2018-03-28] MEDS: LIDOCAINE PATCH REMOVAL MC SCH (21:28)
[2018-03-28] MEDS: OSELTAMIVIR PHOSPHATE 75 MG CAPSULE PO SCH (21:57)
[2018-03-29] MEDS ORDERED: PIPERACILLIN/TAZOBACTAM 3.375 GM VIAL IVPB ONE ×4 (01:45→21:45)
[2018-03-29] MEDS ORDERED: DEXTROSE 5%-WATER - 50 ML IVPB ONE ×4 (01:46→21:45)
[2018-03-29] MEDS: PIPERACILLIN/TAZOB 3.375 GM 3.375 GM in DEXTROSE 5%-WATER - 50 ML IVPB SCH ×4 (02:02→21:57)
[2018-03-29] MEDS: methylPREDNISolone NA SUCC 40 MG/1 ML VIAL IVPUSH SCH ×3 (02:02→17:30)
[2018-03-29] MEDS: DOCUSATE SODIUM 100 MG CAPSULE (FP) PO SCH ×3 (06:11→21:58)
[2018-03-29] MEDS: INSULIN SLIDING SCALE (NOVOLOG) 1 VIAL SQ SCH ×4 (06:11→21:59)
[2018-03-29] MEDS: HEPARIN NA (PORCINE) 5,000 UNITS/ML 1ML VIAL SQ SCH ×3 (06:11→21:58)
[2018-03-29 06:54] LABS: BASO % 0.3 % (0-2.0); HEMOGLOBIN 9.7 GM/dL (11.7-16.9); LYMPH % 3.8 % (8-40); MCH 30.8 pg (25.7-33.7); MCHC 33.4 g/dl (32.0-35.9); MEAN CELL VOLUME 92.2 fl (80-96); MEAN PLT VOLUME 8.2 fl (7.5-11.1); MONO % 3.3 % (3.8-10.2); NEUT % 92.6 % (42.8-82.8); PLATELET COUNT 178 K/MM3 (134-434); RBC 3.15 M/mm3 (4.00-5.60); RDW 15.5 % (11.9-15.9); WHITE BLOOD COUNT 8.8 K/mm3 (4.0-10.0)
--- NOTE | 2018-03-29 07:16 | EKG ---
Test Reason : Blood Pressure : / mmHG Vent. Rate : 072 BPM Atrial Rate : 267 BPM P-R Int : 000 ms QRS Dur : 200 ms QT Int : 532 ms P-R-T Axes : 071 -86 073 degrees QTc Int : 582 ms Ventricular-paced rhythm WITH FREQUENT and consecutive PREMATURE VENTRICULAR COMPLEXES ABNORMAL ECG WHEN COMPARED WITH ECG OF 12-MAR-2018 13:53, PREMATURE VENTRICULAR COMPLEXES ARE NOW PRESENT VENT. RATE HAS DECREASED BY 12 BPM Confirmed by STEPHANIE RIOS MD ([id number]) on 03/29/2018 7:16:23 AM Referred By: Confirmed By:STEPHANIE RIOS MD
[2018-03-29] MEDS: ALBUTEROL SO4 2.5/IPRATROPIUM 0.5 INH SOL 3 ML VIAL.NEB. NEB SCH ×4 (07:20→21:30)
[2018-03-29 07:51] LABS: ALBUMIN 2.3 g/dl (3.4-5.0); ALK PHOS 105 U/L (45-117); ANION GAP 9 MMOL/L (8-16); BILIRUBIN,TOTAL 0.4 mg/dL (0.2-1); BLOOD UREA NITROGEN 37 mg/dL (7-18); CALCIUM 8.5 mg/dL (8.5-10.1); CHLORIDE 97 mmol/L (98-107); CO2 31 mmol/L (21-32); CREATININE 2.1 mg/dL (0.55-1.3); GLUCOSE,RANDOM 246 mg/dL (74-106); MAGNESIUM 2.3 mg/dL (1.8-2.4); POTASSIUM 3.8 mmol/L (3.5-5.1); SGOT/AST 53 U/L (15-37); SGPT/ALT 30 U/L (13-61); SODIUM 137 mmol/L (136-145); TOT PROT 5.5 g/dl (6.4-8.2)
[2018-03-29] MEDS ORDERED: PT OWN MED DRAWER 7, Y5N ONE ×2 (09:14→21:45)
[2018-03-29] MEDS: FUROSEMIDE 40 MG/4 ML INJECTABLE VIAL IVPUSH SCH (09:41)
[2018-03-29] MEDS: oxyCODONE HCL 5 MG TABLET PO PRN ×3 (09:43→22:01)
[2018-03-29] MEDS: CYCLOBENZAPRINE HCL 10 MG TABLET (FP) PO SCH ×2 (09:44→21:58)
[2018-03-29] MEDS: OSELTAMIVIR PHOSPHATE 75 MG CAPSULE PO SCH ×2 (09:44→21:59)
[2018-03-29] MEDS: ASPIRIN COATED 81 MG TABLET.EC PO SCH (09:45)
[2018-03-29] MEDS: CHOLECALCIFEROL (VITAMIN D3) 1,000 UNIT TABLET (FP) PO SCH (09:45)
[2018-03-29] MEDS: CARVEDILOL 25 MG TABLET (FP) PO SCH ×2 (09:46→21:59)
[2018-03-29] MEDS: PSYLLIUM 5.85 GM PACKET PO SCH ×2 (09:46→21:59)
[2018-03-29] MEDS: PANTOPRAZOLE 40 MG TABLET (FP) PO SCH (09:46)
[2018-03-29] MEDS ORDERED: BUDESONIDE/FORMETEROL FUMARATE 160/4.5 mcg INHALER IH SCH (10:00)
[2018-03-29] MEDS ORDERED: TIOTROPIUM BROMIDE 2.5 MCG (SPIRIVA) RESPIMAT INHALER IH SCH (10:00)
[2018-03-29] MEDS ORDERED: FUROSEMIDE 40 MG TABLET (FP) PO SCH (10:00)
--- NOTE | 2018-03-29 10:35 | CON.CARD ---
Cardiology Consult (text) - Consultation Consultation Note: cc: sob hpi: 62 m hx copd, cabgx3 2012, bio avr 2012, pad s/p b/l sfa occlusions, syst chf s/p medtronic icd, htn, hld, a-tach, here with sob. Past few days feels sob , weak. No cp palps dizzy loc pnd orthopnea le edema. Found to have pna, flu, chf. Sees me for cardio. pmh: per hpi psh: cabg, avr, icd social: +tob fam: no premature cad ros: per hpi; no nvd, fever, wt loss, rash, hematuria, gib, nasal congestion, shelton , vision changes meds: Home Medications Medication Instructions Recorded Aspirin [Aspirin EC] 81 mg PO DAILY 06/18/15 Zolpidem Tartrate [Ambien] 10 mg PO HS 06/18/15 Psyllium [Metamucil (Sugar-Free) -] 5.85 gm PO BID #1 bottle 06/02/17 Docusate Sodium [Colace -] 100 mg PO TID #90 capsule 09/22/17 Cholecalciferol (Vitamin D3) 2,000 unit PO DAILY #30 capsule 12/25/17 [Vitamin D3] Budesonide/Formeterol Fumarate 1 puff IH DAILY inhaler 12/30/17 [SYMBICORT 160/4.5mcg -] Cyclobenzaprine HCl 5 mg PO BID #28 tablet 12/30/17 Glipizide [Glucotrol -] 5 mg PO BID 01/11/18 Carvedilol [Coreg -] 25 mg PO BID #60 tablet 02/14/18 Pantoprazole Sodium [Protonix -] 40 mg PO DAILY #14 tablet.ec 02/22/18 Tiotropium [place] [Spiriva 2 puff IH DAILY #1 inhaler 02/22/18 Respimat] predniSONE [Deltasone -] 5 mg PO ASDIR #78 tab 02/22/18 Atorvastatin Ca [Lipitor] 20 mg PO HS 02/23/18 Furosemide [Lasix -] 80 mg PO DAILY #60 tablet 03/15/18 Insulin (Novolog) [Novolog Vial] See Protocol SQ BID PRN 03/23/18 Lactulose [Cephulac -] 10 - 20 gm PO DAILY PRN #1 bottle 03/23/18 Oxycodone HCl/Acetaminophen 1 each PO QID #120 tablet MDD 4 03/23/18 [Percocet 10-325 mg Tablet] pe: Vital Signs Period Temp Pulse Resp BP Sys/El Pulse Ox Last 24 Hr 97.8 F-98.3 F 60-99 18-19 117-155/50-92 95-98 nad, +JVD rrr s1s2 no mrg scattered rhonchi, nl eff aaox3 no le e/c/c abd nt nd pos bs no jaundice diaphoresis +dp pt no carotid bruits Laboratory Last Values WBC 8.8 K/mm3 (4.0-10.0) 03/29/18 06:00 RBC 3.15 M/mm3 (4.00-5.60) L 03/29/18 06:00 Hgb 9.7 GM/dL (11.7-16.9) L 03/29/18 06:00 Hct 29.0 % (35.4-49) L 03/29/18 06:00 MCV 92.2 fl (80-96) 03/29/18 06:00 MCH 30.8 pg (25.7-33.7) 03/29/18 06:00 MCHC 33.4 g/dl (32.0-35.9) 03/29/18 06:00 RDW 15.5 % (11.9-15.9) 03/29/18 06:00 Plt Count 178 K/MM3 (134-434) 03/29/18 06:00 MPV 8.2 fl (7.5-11.1) 03/29/18 06:00 Absolute Neuts (auto) 8.1 K/mm3 (1.5-8.0) H 03/29/18 06:00 Neutrophils % 92.6 % (42.8-82.8) H 03/29/18 06:00 Lymphocytes % 3.8 % (8-40) L 03/29/18 06:00 Monocytes % 3.3 % (3.8-10.2) L 03/29/18 06:00 Eosinophils % 0.0 % (0-4.5) D 03/29/18 06:00 Basophils % 0.3 % (0-2.0) 03/29/18 06:00 Nucleated RBC % 0 % (0-0) 03/29/18 06:00 PT with INR 16.10 SEC (9.7-13.0) H 03/28/18 07:15 INR 1.36 (0.83-1.09) H 03/28/18 07:15 VBG pH 7.45 (7.32-7.42) H 03/28/18 07:44 POC VBG pCO2 42.2 mmHg (38-52) 03/28/18 07:44 POC VBG pO2 56.7 mmHg (28-48) H D 03/28/18 07:44 Mixed VBG HCO3 28.9 meq/L (19-25) H 03/28/18 07:44 Sodium 137 mmol/L (136-145) 03/29/18 06:00 Potassium 3.8 mmol/L (3.5-5.1) 03/29/18 06:00 Chloride 97 mmol/L (98-107) L 03/29/18 06:00 Carbon Dioxide 31 mmol/L (21-32) 03/29/18 06:00 Anion Gap 9 MMOL/L (8-16) 03/29/18 06:00 BUN 37 mg/dL (7-18) H 03/29/18 06:00 Creatinine 2.1 mg/dL (0.55-1.3) H 03/29/18 06:00 Creat Clearance w eGFR 32.16 (>60) 03/29/18 06:00 POC Glucometer 272 UNITS (80-120) 03/29/18 06:10 Random Glucose 246 mg/dL (74-106) H 03/29/18 06:00 Lactic Acid 2.1 mmol/L (0.4-2.0) H 03/28/18 15:12 Calcium 8.5 mg/dL (8.5-10.1) 03/29/18 06:00 Phosphorus 3.0 mg/dL (2.5-4.9) 03/29/18 06:00 Magnesium 2.3 mg/dL (1.8-2.4) 03/29/18 06:00 Ferritin 485.2 ng/ml (8-388) H 03/29/18 06:00 Total Bilirubin 0.4 mg/dL (0.2-1) 03/29/18 06:00 AST 53 U/L (15-37) H 03/29/18 06:00 ALT 30 U/L (13-61) 03/29/18 06:00 Alkaline Phosphatase 105 U/L (45-117) 03/29/18 06:00 Creatine Kinase 36 IU/L (26-308) 03/28/18 07:15 Troponin I 0.07 ng/ml (0.00-0.05) H 03/28/18 17:40 B-Natriuretic Peptide 96258.6 pg/ml (5-125) H 03/28/18 07:15 Total Protein 5.5 g/dl (6.4-8.2) L 03/29/18 06:00 Albumin 2.3 g/dl (3.4-5.0) L 03/29/18 06:00 Vitamin B12 2113 pg/ml (193-986) H 03/29/18 06:00 Serum Folate 28 ng/mL (3.1-17.5) H 03/29/18 06:00 TSH 0.08 uIU/ml (0.358-3.74) L D 03/29/18 06:00 Free T4 1.38 ng/dl (0.76-1.16) H 03/29/18 06:00 Influenza A (Rapid) Positive 03/28/18 07:15 Influenza B (Rapid) Negative 03/28/18 07:15 ECG: AFL, intermittent V-S/V-P, + ST-Ts unchanged vs prior CXR: chf and pna echo 06/2016: sev dec lvef, global hk, rv tds, trinity, mod-sev mr, mod tr, rvsp 50- 60 echo 06/2015: mild lve, mod-sev dec lvef, mod lae, nl rv size, mild dec rv fcn, mild-mod mr, mild tr, nl avr fcn, rvsp 30-40 mibi 06/2016 (pers): non-diagnostic STs; large area inferior/inferolateral/ lateral scar; no ischemia; severe LV cavity dilation; global HK with akinesis of inferior/inferolat/lateral allan; EF 16% mibi 09/2014: large inf scar, mod anteroapical ischemia, lvef 25% tele: AFL HR controlled, Vs/NAIL WELTER. no VT a/p: 62 m hx copd, cabgx3 2012, bio avr 2012, pad s/p b/l sfa occlusions, syst chf s/p medtronic icd, htn, hld, a-tach, here with back pain, sob. pna, flu: -cont abx per ID acute on chronic systolic CHF exacerbation: -past dry wt here 187 lbs -here with mild chf exacerbation likely worsened by flu/pna -was on lasix 80 po qd at home, start with iv lasix 40 qd here, monitor daily cr , wt -cont carvedilol. not on ACEI due to h/o hyperkalemia atrial flutter: -pt in AFL on ekg -CHADS VASC 4, warrants AC for cardioembolic prophylaxis. pt is at prohibitive risks of falls/head trauma at present (very frequent falls recently including head trauma, suspected LE weakness with mechanical falls etiology) will defer AC for now. Prior plan was for pt to f/u in office to discuss fall risk/ac further but he did not come to appt (often misses appts). 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 cad/hx of CABG 2012 -no recent angina/ischemia -trop chronically in intermediate range, no change in current values, trend is flat, ck nl, not c/w acs -cont prior cad med regimen: asa, statin, bb, ccb bio avr: -nl fcn on echo 06/20 mitral regurgitation: -likely functional MR, mild-mod on echo 06/19, then "mod-severe" when here 06/20 with suspected acute chf and pulm pressures up (though at risk for overestimation of MR severity on that echo report) -valve morphology not described (tethered leaflets?) -no murmur on exam -reassess MR severity on echo as outpt CKD: -baseline creatinine 2-2.5; -renal fxn stable here pad: -stable, no claudication, cont current cardiac meds s/p icd: -no shocks on check earlier this month -routine outpt monitoring htn: -bp stable -cont home meds
[2018-03-29 11:06] LABS: ANISOCYTOSIS 2+; MACROCYTOSIS 0; OVALOCYTE 1+; PLATELET ESTIMATE NORMAL; TEAR DROP CELLS 1+
--- NOTE | 2018-03-29 11:10 | PN ---
Progress Note (short form) - Note Progress Note: PULMONARY CONSULTATION DICTATED 03/29/18 IMP ACUTE ON CHRONIC HYPOXEMIC RESPIRATORY FAILURE ACUTE ON CHRONIC CHF S/P AICD COPD O2 DEPENDENT + TROPONIN ASHD S/P CABG S/P AVR ? PNEUMONIA ATYPICAL CP CKD PULMONARY HTN INFLUENZA A AFIB ELEVATED LACTATE LEVEL PLAN IV LASIX O2 INHALED BRONCHODILATORS ABX TAMIFLU TREND TROPONIN F/U CHEST X-RAYS TREND LACTATE MONITOR ROBERT BATISTA Problem List - Problems (1) Acute on chronic respiratory failure with hypoxemia Code(s): J96.21 - ACUTE AND CHRONIC RESPIRATORY FAILURE WITH HYPOXIA (2) S/P CABG x 3 Code(s): Z95.1 - PRESENCE OF AORTOCORONARY BYPASS GRAFT (4) Troponin I above reference range Code(s): R74.8 - ABNORMAL LEVELS OF OTHER SERUM ENZYMES (5) Acute exacerbation of CHF (congestive heart failure) Code(s): I50.9 - HEART FAILURE, UNSPECIFIED Qualifiers: (6) Influenza A Code(s): J10.1 - FLU DUE TO OTH IDENT INFLUENZA VIRUS W OTH RESP MANIFEST (7) Afib Code(s): I48.91 - UNSPECIFIED ATRIAL FIBRILLATION Qualifiers: Atrial fibrillation type: chronic Qualified Code(s): I48.2 - Chronic atrial fibrillation (8) COPD exacerbation Code(s): J44.1 - CHRONIC OBSTRUCTIVE PULMONARY DISEASE W (ACUTE) EXACERBATION (9) Cough Code(s): R05 - COUGH (10) Pneumonia Code(s): J18.9 - PNEUMONIA, UNSPECIFIED ORGANISM (11) S/P AVR Code(s): Z95.2 - PRESENCE OF PROSTHETIC HEART VALVE (12) Shortness of breath Code(s): R06.02 - SHORTNESS OF BREATH (13) Weakness Code(s): R53.1 - WEAKNESS (14) CAD (coronary artery disease) Code(s): I25.10 - ATHSCL HEART DISEASE OF [place] CORONARY ARTERY W/O ANG PCTRS Qualifiers: [place] vs. transplanted heart: [place] heart Associated angina: without angina (15) CHF (congestive heart failure) Code(s): I50.9 - HEART FAILURE, UNSPECIFIED Qualifiers: Heart failure type: systolic Heart failure chronicity: chronic Qualified Code(s): I50.22 - Chronic systolic (congestive) heart failure (16) Chronic renal insufficiency, stage III (moderate) Code(s): N18.3 - CHRONIC KIDNEY DISEASE, STAGE 3 (MODERATE) (17) Coronary artery disease Code(s): I25.10 - ATHSCL HEART DISEASE OF [place] CORONARY ARTERY W/O ANG PCTRS Qualifiers: Coronary Disease-Associated Artery/Lesion type: bypass graft, other Associated angina: with other forms of angina Qualified Code(s): I25.798 - Atherosclerosis of other coronary artery bypass graft(s) with other forms of angina pectoris (18) HTN (hypertension) Code(s): I10 - ESSENTIAL (PRIMARY) HYPERTENSION Qualifiers: Hypertension type: essential hypertension Qualified Code(s): I10 - Essential (primary) hypertension (19) Peripheral vascular disease Code(s): I73.9 - PERIPHERAL VASCULAR DISEASE, UNSPECIFIED (20) Lactate blood increase Code(s): R79.89 - OTHER SPECIFIED ABNORMAL FINDINGS OF BLOOD CHEMISTRY
--- NOTE | 2018-03-29 12:25 | PN ---
Physical Exam: SUBJECTIVE: Patient seen and examined. He says SOB is improving. He denies CP, palpitations, chills. OBJECTIVE: Vital Signs Period Temp Pulse Resp BP Sys/El Pulse Ox Last 24 Hr 97.3 F-98.3 F 60-99 18-20 117-155/50-92 82-98 GENERAL: The patient is awake, alert, and fully oriented, in no acute distress. LUNGS: Bibasilar crackles. HEART: Regular rate and rhythm, S1, S2 without murmur, rub or gallop. ABDOMEN: Soft, nontender, nondistended, normoactive bowel sounds, no guarding, no rebound, no hepatosplenomegaly, no masses. EXTREMITIES: 2+ pulses, warm, well-perfused, no edema. Laboratory Results - last 24 hr 03/28/18 03/28/18 03/28/18 15:12 15:12 15:12 WBC RBC Hgb Hct MCV MCH MCHC RDW Plt Count MPV Absolute Neuts (auto) Neutrophils % Neutrophils % (Manual) Band Neutrophils % Lymphocytes % Lymphocytes % (Manual) Monocytes % Monocytes % (Manual) Eosinophils % Eosinophils % (Manual) Basophils % Basophils % (Manual) Myelocytes % (Man) Promyelocytes % (Man) Blast Cells % (Manual) Nucleated RBC % Metamyelocytes Hypochromia Platelet Estimate Polychromasia Poikilocytosis Basophilic Stippling Anisocytosis Microcytosis Macrocytosis Spherocytes Tear Drop Cells Ovalocytes Sodium Potassium Chloride Carbon Dioxide Anion Gap BUN Creatinine Creat Clearance w eGFR POC Glucometer Random Glucose Lactic Acid 2.1 H Calcium Phosphorus 2.9 Magnesium 1.7 L Ferritin Total Bilirubin AST ALT Alkaline Phosphatase Troponin I Cancelled Total Protein Albumin Vitamin B12 Serum Folate TSH Free T4 03/28/18 03/28/18 03/28/18 16:37 17:39 17:40 WBC RBC Hgb Hct MCV MCH MCHC RDW Plt Count MPV Absolute Neuts (auto) Neutrophils % Neutrophils % (Manual) Band Neutrophils % Lymphocytes % Lymphocytes % (Manual) Monocytes % Monocytes % (Manual) Eosinophils % Eosinophils % (Manual) Basophils % Basophils % (Manual) Myelocytes % (Man) Promyelocytes % (Man) Blast Cells % (Manual) Nucleated RBC % Metamyelocytes Hypochromia Platelet Estimate Polychromasia Poikilocytosis Basophilic Stippling Anisocytosis Microcytosis Macrocytosis Spherocytes Tear Drop Cells Ovalocytes Sodium Potassium Chloride Carbon Dioxide Anion Gap BUN Creatinine Creat Clearance w eGFR POC Glucometer [phone] Random Glucose Lactic Acid Calcium Phosphorus Magnesium Ferritin Total Bilirubin AST ALT Alkaline Phosphatase Troponin I 0.07 H Total Protein Albumin Vitamin B12 Serum Folate TSH Free T4 03/28/18 03/29/18 03/29/18 21:16 06:00 06:00 WBC 8.8 RBC 3.15 L Hgb 9.7 L Hct 29.0 L MCV 92.2 MCH 30.8 MCHC 33.4 RDW 15.5 Plt Count 178 MPV 8.2 Absolute Neuts (auto) 8.1 H Neutrophils % 92.6 H Neutrophils % (Manual) 91.0 H Band Neutrophils % 1.0 Lymphocytes % 3.8 L Lymphocytes % (Manual) 2.0 L D Monocytes % 3.3 L Monocytes % (Manual) 5 Eosinophils % 0.0 D Eosinophils % (Manual) 0.0 Basophils % 0.3 Basophils % (Manual) 0.0 Myelocytes % (Man) 0 D Promyelocytes % (Man) 0 Blast Cells % (Manual) 0 Nucleated RBC % 0 Metamyelocytes 0 D Hypochromia 1+ Platelet Estimate Normal Polychromasia 1+ Poikilocytosis 0 Basophilic Stippling 1+ Anisocytosis 2+ Microcytosis 0 Macrocytosis 0 Spherocytes 1+ Tear Drop Cells 1+ Ovalocytes 1+ Sodium 137 Potassium 3.8 Chloride 97 L Carbon Dioxide 31 Anion Gap 9 BUN 37 H Creatinine 2.1 H Creat Clearance w eGFR 32.16 POC Glucometer 361 Random Glucose 246 H Lactic Acid Calcium 8.5 Phosphorus 3.0 Magnesium 2.3 Ferritin Total Bilirubin 0.4 AST 53 H ALT 30 Alkaline Phosphatase 105 Troponin I Total Protein 5.5 L Albumin 2.3 L Vitamin B12 Serum Folate 28 H TSH 0.08 L D Free T4 03/29/18 03/29/18 03/29/18 06:00 06:10 11:41 WBC RBC Hgb Hct MCV MCH MCHC RDW Plt Count MPV Absolute Neuts (auto) Neutrophils % Neutrophils % (Manual) Band Neutrophils % Lymphocytes % Lymphocytes % (Manual) Monocytes % Monocytes % (Manual) Eosinophils % Eosinophils % (Manual) Basophils % Basophils % (Manual) Myelocytes % (Man) Promyelocytes % (Man) Blast Cells % (Manual) Nucleated RBC % Metamyelocytes Hypochromia Platelet Estimate Polychromasia Poikilocytosis Basophilic Stippling Anisocytosis Microcytosis Macrocytosis Spherocytes Tear Drop Cells Ovalocytes Sodium Potassium Chloride Carbon Dioxide Anion Gap BUN Creatinine Creat Clearance w eGFR POC Glucometer 272 337 Random Glucose Lactic Acid Calcium Phosphorus Magnesium Ferritin 485.2 H Total Bilirubin AST ALT Alkaline Phosphatase Troponin I Total Protein Albumin Vitamin B12 2113 H Serum Folate TSH Free T4 1.38 H Active Medications Generic Name Dose Route Start Last Admin Trade Name Freq PRN Reason Stop Dose Admin Albuterol Sulfate 1 amp 03/28/18 13:56 Ventolin 0.083% Nebulizer Soln - NEB Q4H PRN SHORT OF BREATH/WHEEZING Albuterol/Ipratropium 1 amp 03/28/18 16:00 03/29/18 11:30 Duoneb - NEB 1 amp RQID MANJU Administration Aspirin 81 mg 03/29/18 10:00 03/29/18 09:45 Ecotrin - PO 81 mg DAILY MANJU Administration Atorvastatin Calcium 20 mg 03/28/18 22:00 03/28/18 21:19 Lipitor - PO 20 mg HS MANJU Administration Carvedilol 25 mg 03/28/18 22:00 03/29/18 09:46 Coreg - PO 25 mg BID MANJU Administration Cholecalciferol 2,000 unit 03/29/18 10:00 03/29/18 09:45 Vitamin D3 - PO 2,000 unit DAILY MANJU Administration Cyclobenzaprine HCl 5 mg 03/28/18 22:00 03/29/18 09:44 Flexeril - PO 5 mg BID MANJU Administration Docusate Sodium 100 mg 03/28/18 14:00 03/29/18 06:11 Colace - PO 100 mg TID MANJU Administration Furosemide 40 mg 03/29/18 10:00 03/29/18 09:41 Lasix Injection - IVPUSH 40 mg DAILY MANJU Administration Heparin Sodium (Porcine) 5,000 unit 03/28/18 14:00 03/29/18 06:11 Heparin - SQ 5,000 unit TID MANJU Administration Piperacillin Sod/Tazobactam 50 mls @ 100 mls/hr 03/28/18 15:00 03/29/18 09:43 Sod 3.375 gm/ Dextrose IVPB 100 mls/hr Q6H-IV MANJU Administration Protocol Insulin Aspart 1 vial 03/28/18 12:23 03/29/18 11:58 Novolog Vial Sliding Scale - SQ 8 units ACHS MANJU Administration Protocol Methylprednisolone Sodium Succinate 40 mg 03/28/18 18:00 03/29/18 09:41 Solu-Medrol - IVPUSH 40 mg Q8H-IV MANJU Administration Miscellaneous 1 each 03/28/18 22:00 03/28/18 21:28 Lidoderm Patch Removal MC 1 each DAILY@2200 MANJU Administration Oseltamivir Phosphate 75 mg 03/28/18 22:00 03/29/18 09:44 Tamiflu - PO 04/02/18 21:59 75 mg BID MANJU Administration Oxycodone HCl 10 mg 03/29/18 09:17 03/29/18 09:43 Roxicodone - PO 10 mg Q6H PRN Administration PAIN LEVEL 6-10 Pantoprazole Sodium 40 mg 03/29/18 10:00 03/29/18 09:46 Protonix - PO 40 mg DAILY MANJU Administration Psyllium Hydrophilic Mucilloid 5.85 gm 03/28/18 22:00 03/29/18 09:46 Metamucil (Sugar-Free) - PO 5.85 gm BID MANJU Administration Zolpidem Tartrate 10 mg 03/28/18 13:51 03/28/18 21:18 Ambien - PO 10 mg HS PRN Administration INSOMNIA ASSESSMENT/PLAN: This is a 62 year old man with a history of COPD, chronic hypoxic respiratory failure, CAD, chronic diastolic heart failure, AICD, PAD, type 2 DM, diabetic neuropathy, pulm HTN, atrial fib, stage 3 CKD, falls who presented to the ED with SOB, chills, aches. 1. Acute on chronic hypoxic respiratory secondary to acute on chronic systolic heart failure, acute exacerbation of COPD, sepsis (tachypnea, leukocytosis), healthcare associated pneumonia, influenza A - Continue Lasix IV, Coreg - Continue SoluMedrol, Zosyn, Tamiflu, DuoNeb, Albuterol as needed - Continue to hold Symbicort, Spiriva - Not on ACEI/ARB secondary to hyperkalemia history - Oxygen to maintain saturation >90% - I&O - Daily weight 2. CAD - Continue aspirin, Coreg, Lipitor 3. Permanent atrial fibrillation - Not on anticoagulation secondary to fall risk 4. HTN - Continue Coreg, Lasix 5. Pulmonary HTN 6. History of AICD 7. Type 2 DM with peripheral neuropathy - Hold glipizide - Fingersticks with Novolog sliding scale 8. Peripheral artery disease 9. Stage 3 CKD - Stable 10. Normocytic anemia, chronic - TSH low, FT4 high , FT3 pending - B12, folate are high - Iron, TIBC, iron sat pending - Ferritin high Visit type - Emergency Visit Emergency Visit: Yes ED Registration Date: 03/28/18 Care time: The patient presented to the Emergency Department on the above date and was hospitalized for further evaluation of their emergent condition. - New Patient This patient is new to me today: No - Critical Care Critical Care patient: No - Discharge Referral Referred to [facility] Med [facility] No
--- NOTE | 2018-03-29 12:32 | CONS ---
DATE OF CONSULTATION: 03/29/2018 REFERRING PHYSICIAN: Baltazar Pugh MD The patient is a 62-year-old white male known to me from previous hospitalization, with advanced COPD, with chronic hypoxemic respiratory failure, O2 dependent, ASHD, chronic diastolic heart failure, status post AICD, PAD, history of type 2 diabetes, diabetic neuropathy, pulmonary hypertension, atrial fibrillation, chronic kidney disease stage 3, admitted to [facility] complaining of increasing shortness of breath and dyspnea on exertion for a couple of days. Patient denied any fevers. Complaining of occasional chills. Denied any nausea, vomiting or diaphoresis. He also complained of right-sided chest discomfort. He denies any hemoptysis. On admission, he was felt to have acute on chronic CHF. He was started on IV Lasix as well as inhaled bronchodilators and empiric antibiotic therapy for possible pneumonia. Patient has a history of smoking approximately 2 packs per day for many years, quit 4 months ago. 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 Past medical history, again, includes chronic diastolic heart failure, status post AICD, PAD, type 2 diabetes mellitus, chronic COPD advanced, chronic hypoxemic respiratory failure, O2 dependent, ASHD, diabetic neuropathy, pulmonary hypertension, atrial fibrillation, and chronic kidney disease. REVIEW OF SYSTEMS: Positive dyspnea, positive orthopnea, positive chest pain. No fever, no hemoptysis, no abdominal pain. No lower extremity edema. Current medications include Lidoderm, Solu-Medrol, piperacillin, heparin, Ambien, albuterol, DuoNeb, Coreg, Colace, Metamucil, Flexeril, Lipitor, Lasix, Tamiflu, Ecotrin, Roxicodone, Protonix. PHYSICAL EXAMINATION: General: The patient is a well-developed, well-nourished male, awake, alert, currently in no acute distress. Vital Signs: He is currently afebrile. Blood pressure is 127/91. Respiratory rate 20. O2 saturation is 82 on 3 L. HEENT: Normocephalic, atraumatic. Neck: Supple. Heart: Irregularly irregular. S1, S2. Chest: Bilateral crackles. Abdomen: Soft. Bowel sounds are positive. Extremities: No cyanosis, edema. LABORATORY DATA: WBC is 8.8, hemoglobin 9.7, hematocrit 29, platelet count of 178,000. INR is 1.36. Venous blood gas 7.45, pCO2 of 42, pO2 of 56, bicarbonate of 28. Chemistries: BUN 37, creatinine 2.1. Troponin 0.07. BNP is 24,819. Chest x-ray: Cardiomegaly, pulmonary vascular congestion bilaterally. Rapid influenza A is positive. Lactate level is 2.1. IMPRESSION: Acute hypoxemic respiratory failure secondary to multiple factors: 1. Acute on chronic congestive heart failure. 2. Chronic obstructive pulmonary disease exacerbation. 3. Possible pneumonia, left lower lobe. 4. Elevated lactate level. 5. Troponin. 6. Arteriosclerotic heart disease. 7. Atrial fibrillation. 8. Pulmonary hypertension. 9. Influenza A. PLAN: IV Lasix, inhaled bronchodilators, supplemental O2, trend troponins, trend lactate. Obtain followup chest x-rays. Antibiotics as per Infectious Disease. Daily weights. Supplemental O2 to maintain saturations at O2 saturation 90% or greater. Short course of Medrol. MINDY BATISTA M.D. MATHEW/[id number]
--- NOTE | 2018-03-29 15:47 | PN ---
Progress Note, Physician History of Present Illness: feeling better still weak - Current Medication List Current Medications: Active Medications Albuterol Sulfate (Ventolin 0.083% Nebulizer Soln -) 1 amp NEB Q4H PRN PRN Reason: SHORT OF BREATH/WHEEZING Albuterol/Ipratropium (Duoneb -) 1 amp NEB RQID [facility] Last Admin: 03/29/18 11:30 Dose: 1 amp Aspirin (Ecotrin -) 81 mg PO DAILY [facility] Last Admin: 03/29/18 09:45 Dose: 81 mg Atorvastatin Calcium (Lipitor -) 20 mg PO HS [facility] Last Admin: 03/28/18 21:19 Dose: 20 mg Carvedilol (Coreg -) 25 mg PO BID [facility] Last Admin: 03/29/18 09:46 Dose: 25 mg Cholecalciferol (Vitamin D3 -) 2,000 unit PO DAILY [facility] Last Admin: 03/29/18 09:45 Dose: 2,000 unit Cyclobenzaprine HCl (Flexeril -) 5 mg PO BID [facility] Last Admin: 03/29/18 09:44 Dose: 5 mg Docusate Sodium (Colace -) 100 mg PO TID [facility] Last Admin: 03/29/18 14:40 Dose: 100 mg Furosemide (Lasix Injection -) 40 mg IVPUSH DAILY [facility] Last Admin: 03/29/18 09:41 Dose: 40 mg Heparin Sodium (Porcine) (Heparin -) 5,000 unit SQ TID [facility] Last Admin: 03/29/18 14:40 Dose: 5,000 unit Piperacillin Sod/Tazobactam (Sod 3.375 gm/ Dextrose) 50 mls @ 100 mls/hr IVPB Q6H-IV [facility]; Protocol Last Admin: 03/29/18 14:40 Dose: 100 mls/hr Insulin Aspart (Novolog Vial Sliding Scale -) 1 vial SQ ACHS [facility]; Protocol Last Admin: 03/29/18 11:58 Dose: 8 units Methylprednisolone Sodium Succinate (Solu-Medrol -) 40 mg IVPUSH Q8H-IV [facility] Last Admin: 03/29/18 09:41 Dose: 40 mg Miscellaneous (Lidoderm Patch Removal) 1 each MC DAILY@2200 [facility] Last Admin: 03/28/18 21:28 Dose: 1 each Oseltamivir Phosphate (Tamiflu -) 75 mg PO BID [facility] Stop: 04/02/18 21:59 Last Admin: 03/29/18 09:44 Dose: 75 mg Oxycodone HCl (Roxicodone -) 10 mg PO Q6H PRN PRN Reason: PAIN LEVEL 6-10 Last Admin: 03/29/18 09:43 Dose: 10 mg Pantoprazole Sodium (Protonix -) 40 mg PO DAILY [facility] Last Admin: 03/29/18 09:46 Dose: 40 mg Psyllium Hydrophilic Mucilloid (Metamucil (Sugar-Free) -) 5.85 gm PO BID [facility] Last Admin: 03/29/18 09:46 Dose: 5.85 gm Zolpidem Tartrate (Ambien -) 10 mg PO HS PRN PRN Reason: INSOMNIA Last Admin: 03/28/18 21:18 Dose: 10 mg - Objective Vital Signs: Vital Signs Temperature 97.9 F 03/29/18 14:00 Pulse Rate 93 H 03/29/18 14:00 Respiratory Rate 20 03/29/18 14:00 Blood Pressure 118/92 03/29/18 14:00 O2 Sat by Pulse Oximetry (%) 82 L 03/29/18 09:00 Constitutional: Yes: No Distress, Calm Cardiovascular: Yes: Regular Rate and Rhythm Respiratory: Yes: Regular, Poor Air Entry Gastrointestinal: Yes: Normal Bowel Sounds, Soft Musculoskeletal: Yes: WNL Extremities: Yes: WNL Neurological: Yes: Alert, Oriented Psychiatric: Yes: Alert, Oriented Labs: CBC, BMP 03/29/18 06:00 03/29/18 06:00 INR, PTT INR 1.36 (0.83-1.09) H 03/28/18 07:15 Assessment/Plan Problem List - Problems (1) Acute exacerbation of CHF (congestive heart failure) Code(s): I50.9 - HEART FAILURE, UNSPECIFIED Qualifiers: (2) Influenza A Code(s): J10.1 - FLU DUE TO OTH IDENT INFLUENZA VIRUS W OTH RESP MANIFEST (3) Respiratory distress Code(s): R06.00 - DYSPNEA, UNSPECIFIED (4) COPD (chronic obstructive pulmonary disease) Code(s): J44.9 - CHRONIC OBSTRUCTIVE PULMONARY DISEASE, UNSPECIFIED (5) Afib Code(s): I48.91 - UNSPECIFIED ATRIAL FIBRILLATION Qualifiers: Atrial fibrillation type: chronic Qualified Code(s): I48.2 - Chronic atrial fibrillation (6) Chronic respiratory failure Code(s): J96.10 - CHRONIC RESPIRATORY FAILURE, UNSP W HYPOXIA OR HYPERCAPNIA (7) Pneumonia Code(s): J18.9 - PNEUMONIA, UNSPECIFIED ORGANISM Qualifiers: Pneumonia type: due to unspecified organism Laterality: left Lung location: lower lobe of lung Qualified Code(s): J18.1 - Lobar pneumonia, unspecified organism (8) S/P AVR Code(s): Z95.2 - PRESENCE OF PROSTHETIC HEART VALVE (9) CAD (coronary artery disease) Code(s): I25.10 - ATHSCL HEART DISEASE OF [place] CORONARY ARTERY W/O ANG PCTRS Qualifiers: [place] vs. transplanted heart: [place] heart Associated angina: without angina (10) COPD (chronic obstructive pulmonary disease) Code(s): J44.9 - CHRONIC OBSTRUCTIVE PULMONARY DISEASE, UNSPECIFIED Qualifiers: COPD type: COPD with acute exacerbation Qualified Code(s): J44.1 - Chronic obstructive pulmonary disease with (acute) exacerbation (11) Chronic kidney disease (CKD) Code(s): N18.9 - CHRONIC KIDNEY DISEASE, UNSPECIFIED Qualifiers: Chronic kidney disease stage: stage 3 (moderate) Qualified Code(s): N18.3 - Chronic kidney disease, stage 3 (moderate) (12) Diabetes mellitus with chronic kidney disease Code(s): E11.22 - TYPE 2 DIABETES MELLITUS W DIABETIC CHRONIC KIDNEY DISEASE; N18.9 - CHRONIC KIDNEY DISEASE, UNSPECIFIED Qualifiers: Diabetes mellitus type: type 2 Chronic kidney disease stage: stage 3 ( moderate) (13) Peripheral vascular disease Code(s): I73.9 - PERIPHERAL VASCULAR DISEASE, UNSPECIFIED (15) Acute on chronic respiratory failure with hypoxemia Code(s): J96.21 - ACUTE AND CHRONIC RESPIRATORY FAILURE WITH HYPOXIA Assessment/Plan 62 y.o. male with PMH of COPD on home O2, CHF, CAD s/p CABG, AICD, bioprosthetic AVR, MR, Atrial Fibrillation, CKD, HTN, DM and PVD presenting with SOB/tachynea, chest discomfort, leukocytosis, lactic acidosis, pulmonary congestion. Recently admitted to the hospital Influenza A Possible HCAP Sepsis Acute on chronic CHF COPD CKD DM CAD s/p CABG s/p AICD s/p AVR MR AFIB plan continue abx resp support incentive abby rest as per the team
[2018-03-29] MEDS: ZOLPIDEM TARTRATE 5 MG TABLET PO PRN (21:59)
[2018-03-29] MEDS: ATORVASTATIN CA 20 MG TABLET (FP) PO SCH (22:00)
[2018-03-29] MEDS: LIDOCAINE PATCH REMOVAL MC SCH (22:01)
[2018-03-30] MEDS ORDERED: DEXTROSE 5%-WATER - 50 ML IVPB ONE ×4 (02:56→20:30)
[2018-03-30] MEDS ORDERED: PIPERACILLIN/TAZOBACTAM 3.375 GM VIAL IVPB ONE ×4 (02:56→20:30)
[2018-03-30] MEDS: PIPERACILLIN/TAZOB 3.375 GM 3.375 GM in DEXTROSE 5%-WATER - 50 ML IVPB SCH ×4 (02:59→20:43)
[2018-03-30] MEDS: methylPREDNISolone NA SUCC 40 MG/1 ML VIAL IVPUSH SCH ×3 (02:59→17:07)
[2018-03-30] MEDS: DOCUSATE SODIUM 100 MG CAPSULE (FP) PO SCH ×3 (06:33→21:12)
[2018-03-30] MEDS: HEPARIN NA (PORCINE) 5,000 UNITS/ML 1ML VIAL SQ SCH ×3 (06:34→21:13)
[2018-03-30] MEDS: INSULIN SLIDING SCALE (NOVOLOG) 1 VIAL SQ SCH ×4 (06:34→21:13)
[2018-03-30] MEDS: oxyCODONE HCL 5 MG TABLET PO PRN ×3 (06:58→20:45)
[2018-03-30 07:46] LABS: HEMATOCRIT 28.1 % (35.4-49); HEMOGLOBIN 9.1 GM/dL (11.7-16.9); MCH 30.2 pg (25.7-33.7); MCHC 32.5 g/dl (32.0-35.9); MEAN CELL VOLUME 92.7 fl (80-96); MEAN PLT VOLUME 8.3 fl (7.5-11.1); PLATELET COUNT 161 K/MM3 (134-434); RBC 3.03 M/mm3 (4.00-5.60); RDW 16.4 % (11.9-15.9); WHITE BLOOD COUNT 12.4 K/mm3 (4.0-10.0)
[2018-03-30 08:13] LABS: ANION GAP 10 MMOL/L (8-16); BLOOD UREA NITROGEN 45 mg/dL (7-18); CALCIUM 8.3 mg/dL (8.5-10.1); CHLORIDE 96 mmol/L (98-107); CO2 29 mmol/L (21-32); GLUCOSE,RANDOM 233 mg/dL (74-106); POTASSIUM 3.9 mmol/L (3.5-5.1); SODIUM 134 mmol/L (136-145)
[2018-03-30] MEDS: ALBUTEROL SO4 2.5/IPRATROPIUM 0.5 INH SOL 3 ML VIAL.NEB. NEB SCH ×4 (08:30→19:34)
[2018-03-30] MEDS ORDERED: PT OWN MED DRAWER 7, Y5N ONE ×2 (09:13→20:30)
[2018-03-30] MEDS: PSYLLIUM 5.85 GM PACKET PO SCH ×2 (09:48→21:13)
[2018-03-30] MEDS: FUROSEMIDE 40 MG/4 ML INJECTABLE VIAL IVPUSH SCH ×2 (09:50→14:20)
[2018-03-30] MEDS: CHOLECALCIFEROL (VITAMIN D3) 1,000 UNIT TABLET (FP) PO SCH (09:51)
[2018-03-30] MEDS: CARVEDILOL 25 MG TABLET (FP) PO SCH ×2 (09:51→21:12)
[2018-03-30] MEDS: OSELTAMIVIR PHOSPHATE 75 MG CAPSULE PO SCH ×2 (09:51→21:07)
[2018-03-30] MEDS: ASPIRIN COATED 81 MG TABLET.EC PO SCH (09:52)
[2018-03-30] MEDS: PANTOPRAZOLE 40 MG TABLET (FP) PO SCH (09:52)
[2018-03-30] MEDS: CYCLOBENZAPRINE HCL 10 MG TABLET (FP) PO SCH ×2 (09:53→21:08)
--- NOTE | 2018-03-30 10:26 | PN ---
Progress Note (short form) - Note Progress Note: Consultation Note: cc: sob s: feels the same. no chest pain, palps, dizziness, lightheadedness, still has some dyspnea. Current Medications Albuterol Sulfate (Ventolin 0.083% Nebulizer Soln -) 1 amp NEB Q4H PRN PRN Reason: SHORT OF BREATH/WHEEZING Albuterol/Ipratropium (Duoneb -) 1 amp NEB RQID [facility] Last Admin: 03/30/18 08:30 Dose: 1 amp Aspirin (Ecotrin -) 81 mg PO DAILY [facility] Last Admin: 03/30/18 09:52 Dose: 81 mg Atorvastatin Calcium (Lipitor -) 20 mg PO HS [facility] Last Admin: 03/29/18 22:00 Dose: 20 mg Carvedilol (Coreg -) 25 mg PO BID [facility] Last Admin: 03/30/18 09:51 Dose: 25 mg Cholecalciferol (Vitamin D3 -) 2,000 unit PO DAILY [facility] Last Admin: 03/30/18 09:51 Dose: 2,000 unit Cyclobenzaprine HCl (Flexeril -) 5 mg PO BID [facility] Last Admin: 03/30/18 09:53 Dose: 5 mg Docusate Sodium (Colace -) 100 mg PO TID [facility] Last Admin: 03/30/18 06:33 Dose: 100 mg Furosemide (Lasix Injection -) 40 mg IVPUSH DAILY [facility] Last Admin: 03/30/18 09:50 Dose: 40 mg Heparin Sodium (Porcine) (Heparin -) 5,000 unit SQ TID [facility] Last Admin: 03/30/18 06:34 Dose: 5,000 unit Piperacillin Sod/Tazobactam (Sod 3.375 gm/ Dextrose) 50 mls @ 100 mls/hr IVPB Q6H-IV [facility]; Protocol Last Admin: 03/30/18 09:47 Dose: 100 mls/hr Insulin Aspart (Novolog Vial Sliding Scale -) 1 vial SQ ACHS [facility]; Protocol Last Admin: 03/30/18 06:34 Dose: 4 units Methylprednisolone Sodium Succinate (Solu-Medrol -) 40 mg IVPUSH Q8H-IV [facility] Last Admin: 03/30/18 09:49 Dose: 40 mg Miscellaneous (Lidoderm Patch Removal) 1 each MC DAILY@2200 [facility] Last Admin: 03/29/18 22:01 Dose: 1 each Oseltamivir Phosphate (Tamiflu -) 75 mg PO BID [facility] Stop: 04/02/18 21:59 Last Admin: 03/30/18 09:51 Dose: 75 mg Oxycodone HCl (Roxicodone -) 10 mg PO Q6H PRN PRN Reason: PAIN LEVEL 6-10 Last Admin: 03/30/18 06:58 Dose: 10 mg Pantoprazole Sodium (Protonix -) 40 mg PO DAILY [facility] Last Admin: 03/30/18 09:52 Dose: 40 mg Psyllium Hydrophilic Mucilloid (Metamucil (Sugar-Free) -) 5.85 gm PO BID [facility] Last Admin: 03/30/18 09:48 Dose: 5.85 gm Zolpidem Tartrate (Ambien -) 10 mg PO HS PRN PRN Reason: INSOMNIA Last Admin: 03/29/18 21:59 Dose: 10 mg pe: Vital Signs Period Temp Pulse Resp BP Sys/El Pulse Ox Last 24 Hr 97.8 F-98.1 F 93-127 18-20 118-164/80-104 82 nad, +JVD rrr s1s2 no mrg scattered rhonchi, nl eff aaox3 no le e/c/c abd nt nd pos bs no jaundice diaphoresis +dp pt no carotid bruits ECG: AFL, intermittent V-S/V-P, + ST-Ts unchanged vs prior CXR: chf and pna echo 06/2016: sev dec lvef, global hk, rv tds, trinity, mod-sev mr, mod tr, rvsp 50- 60 echo 06/2015: mild lve, mod-sev dec lvef, mod lae, nl rv size, mild dec rv fcn, mild-mod mr, mild tr, nl avr fcn, rvsp 30-40 mibi 06/2016 (pers): non-diagnostic STs; large area inferior/inferolateral/ lateral scar; no ischemia; severe LV cavity dilation; global HK with akinesis of inferior/inferolat/lateral allan; EF 16% mibi 09/2014: large inf scar, mod anteroapical ischemia, lvef 25% tele: AFL HR controlled, Vs/[employer]. no VT a/p: 62 m hx copd, cabgx3 2012, bio avr 2012, pad s/p b/l sfa occlusions, syst chf s/p medtronic icd, htn, hld, a-tach, here with back pain, sob. pna, flu: -cont abx per ID acute on chronic systolic CHF exacerbation: -past dry wt here 187 lbs -here with mild chf exacerbation likely worsened by flu/pna -was on lasix 80 po qd at home, weight stable, stable Cr, feels the same - will increase to 40 mg BID -cont carvedilol. not on ACEI due to h/o hyperkalemia atrial flutter: -pt in AFL on ekg -CHADS VASC 4, warrants AC for cardioembolic prophylaxis. pt is at prohibitive risks of falls/head trauma at present (very frequent falls recently including head trauma, suspected LE weakness with mechanical falls etiology) will defer AC for now. Prior plan was for pt to f/u in office to discuss fall risk/ac further but he did not come to appt (often misses appts). Rec'd that he have PT eval while here to assess his fall status so can decide upon fdc AC before leaves. cad/hx of CABG 2012 -no recent angina/ischemia -trop chronically in intermediate range, no change in current values, trend is flat, ck nl, not c/w acs -cont prior cad med regimen: asa, statin, bb, ccb bio avr: -nl fcn on echo 06/20 mitral regurgitation: -likely functional MR, mild-mod on echo 06/19, then "mod-severe" when here 06/20 with suspected acute chf and pulm pressures up (though at risk for overestimation of MR severity on that echo report) -valve morphology not described (tethered leaflets?) -no murmur on exam -reassess MR severity on echo as outpt CKD: -baseline creatinine 2-2.5; -renal fxn stable here pad: -stable, no claudication, cont current cardiac meds s/p icd: -no shocks on check earlier this month -routine outpt monitoring htn: -bp stable -cont home meds
--- NOTE | 2018-03-30 10:43 | PN ---
Progress Note, Physician History of Present Illness: pulmonary alert,feeling better,less dyspneic. - Current Medication List Current Medications: Active Medications Albuterol Sulfate (Ventolin 0.083% Nebulizer Soln -) 1 amp NEB Q4H PRN PRN Reason: SHORT OF BREATH/WHEEZING Albuterol/Ipratropium (Duoneb -) 1 amp NEB RQID [facility] Last Admin: 03/30/18 08:30 Dose: 1 amp Aspirin (Ecotrin -) 81 mg PO DAILY [facility] Last Admin: 03/30/18 09:52 Dose: 81 mg Atorvastatin Calcium (Lipitor -) 20 mg PO HS [facility] Last Admin: 03/29/18 22:00 Dose: 20 mg Carvedilol (Coreg -) 25 mg PO BID [facility] Last Admin: 03/30/18 09:51 Dose: 25 mg Cholecalciferol (Vitamin D3 -) 2,000 unit PO DAILY [facility] Last Admin: 03/30/18 09:51 Dose: 2,000 unit Cyclobenzaprine HCl (Flexeril -) 5 mg PO BID [facility] Last Admin: 03/30/18 09:53 Dose: 5 mg Docusate Sodium (Colace -) 100 mg PO TID [facility] Last Admin: 03/30/18 06:33 Dose: 100 mg Furosemide (Lasix Injection -) 40 mg IVPUSH DAILY [facility] Last Admin: 03/30/18 09:50 Dose: 40 mg Heparin Sodium (Porcine) (Heparin -) 5,000 unit SQ TID [facility] Last Admin: 03/30/18 06:34 Dose: 5,000 unit Piperacillin Sod/Tazobactam (Sod 3.375 gm/ Dextrose) 50 mls @ 100 mls/hr IVPB Q6H-IV [facility]; Protocol Last Admin: 03/30/18 09:47 Dose: 100 mls/hr Insulin Aspart (Novolog Vial Sliding Scale -) 1 vial SQ ACHS [facility]; Protocol Last Admin: 03/30/18 06:34 Dose: 4 units Methylprednisolone Sodium Succinate (Solu-Medrol -) 40 mg IVPUSH Q8H-IV [facility] Last Admin: 03/30/18 09:49 Dose: 40 mg Miscellaneous (Lidoderm Patch Removal) 1 each MC DAILY@2200 [facility] Last Admin: 03/29/18 22:01 Dose: 1 each Oseltamivir Phosphate (Tamiflu -) 75 mg PO BID [facility] Stop: 12/28/18 21:59 Last Admin: 03/30/18 09:51 Dose: 75 mg Oxycodone HCl (Roxicodone -) 10 mg PO Q6H PRN PRN Reason: PAIN LEVEL 6-10 Last Admin: 03/30/18 06:58 Dose: 10 mg Pantoprazole Sodium (Protonix -) 40 mg PO DAILY [facility] Last Admin: 03/30/18 09:52 Dose: 40 mg Psyllium Hydrophilic Mucilloid (Metamucil (Sugar-Free) -) 5.85 gm PO BID [facility] Last Admin: 03/30/18 09:48 Dose: 5.85 gm Zolpidem Tartrate (Ambien -) 10 mg PO HS PRN PRN Reason: INSOMNIA Last Admin: 03/29/18 21:59 Dose: 10 mg - Objective Vital Signs: Vital Signs Temperature 97.8 F 03/30/18 06:44 Pulse Rate 127 H 03/30/18 06:44 Respiratory Rate 18 03/30/18 06:44 Blood Pressure 137/92 03/30/18 06:44 O2 Sat by Pulse Oximetry (%) 82 L 03/29/18 21:00 Constitutional: Yes: Well Nourished, Calm Eyes: Yes: WNL HENT: Yes: WNL Neck: Yes: WNL Cardiovascular: Yes: Regular Rate and Rhythm, S1, S2 Respiratory: Yes: Rales (bibasilar rales) Gastrointestinal: Yes: Normal Bowel Sounds, Soft Extremities: Yes: WNL Edema: No Labs: CBC, BMP 03/30/18 06:00 03/30/18 06:00 INR, PTT INR 1.36 (0.83-1.09) H 03/28/18 07:15 Problem List - Problems (1) Acute on chronic respiratory failure with hypoxemia Code(s): J96.21 - ACUTE AND CHRONIC RESPIRATORY FAILURE WITH HYPOXIA (2) S/P CABG x 3 Code(s): Z95.1 - PRESENCE OF AORTOCORONARY BYPASS GRAFT (4) Troponin I above reference range Code(s): R74.8 - ABNORMAL LEVELS OF OTHER SERUM ENZYMES (5) Acute exacerbation of CHF (congestive heart failure) Code(s): I50.9 - HEART FAILURE, UNSPECIFIED Qualifiers: (6) Influenza A Code(s): J10.1 - FLU DUE TO OTH IDENT INFLUENZA VIRUS W OTH RESP MANIFEST (7) Afib Code(s): I48.91 - UNSPECIFIED ATRIAL FIBRILLATION Qualifiers: Atrial fibrillation type: chronic Qualified Code(s): I48.2 - Chronic atrial fibrillation (8) COPD exacerbation Code(s): J44.1 - CHRONIC OBSTRUCTIVE PULMONARY DISEASE W (ACUTE) EXACERBATION (9) Cough Code(s): R05 - COUGH (10) Pneumonia Code(s): J18.9 - PNEUMONIA, UNSPECIFIED ORGANISM (11) S/P AVR Code(s): Z95.2 - PRESENCE OF PROSTHETIC HEART VALVE (12) Shortness of breath Code(s): R06.02 - SHORTNESS OF BREATH (13) Weakness Code(s): R53.1 - WEAKNESS (14) CAD (coronary artery disease) Code(s): I25.10 - ATHSCL HEART DISEASE OF [place] CORONARY ARTERY W/O ANG PCTRS Qualifiers: [place] vs. transplanted heart: [place] heart Associated angina: without angina (15) CHF (congestive heart failure) Code(s): I50.9 - HEART FAILURE, UNSPECIFIED Qualifiers: Heart failure type: systolic Heart failure chronicity: chronic Qualified Code(s): I50.22 - Chronic systolic (congestive) heart failure (16) Chronic renal insufficiency, stage III (moderate) Code(s): N18.3 - CHRONIC KIDNEY DISEASE, STAGE 3 (MODERATE) (17) Coronary artery disease Code(s): I25.10 - ATHSCL HEART DISEASE OF [place] CORONARY ARTERY W/O ANG PCTRS Qualifiers: Coronary Disease-Associated Artery/Lesion type: bypass graft, other Associated angina: with other forms of angina Qualified Code(s): I25.798 - Atherosclerosis of other coronary artery bypass graft(s) with other forms of angina pectoris (18) HTN (hypertension) Code(s): I10 - ESSENTIAL (PRIMARY) HYPERTENSION Qualifiers: Hypertension type: essential hypertension Qualified Code(s): I10 - Essential (primary) hypertension (19) Peripheral vascular disease Code(s): I73.9 - PERIPHERAL VASCULAR DISEASE, UNSPECIFIED (20) Lactate blood increase Code(s): R79.89 - OTHER SPECIFIED ABNORMAL FINDINGS OF BLOOD CHEMISTRY Assessment/Plan IMP ACUTE ON CHRONIC HYPOXEMIC RESPIRATORY FAILURE ACUTE ON CHRONIC CHF S/P AICD COPD O2 DEPENDENT + TROPONIN ASHD S/P CABG S/P AVR ? PNEUMONIA ATYPICAL CP CKD PULMONARY HTN INFLUENZA A AFIB ELEVATED LACTATE LEVEL PLAN CONTINUE IV LASIX O2 INHALED BRONCHODILATORS ABX TAMIFLU TREND TROPONIN F/U CHEST X-RAYS TREND LACTATE MONITOR ROBERT [place] Problem List - Problems (1) Acute on chronic respiratory failure with hypoxemia Code(s): J96.21 - ACUTE AND CHRONIC RESPIRATORY FAILURE WITH HYPOXIA (2) S/P CABG x 3 Code(s): Z95.1 - PRESENCE OF AORTOCORONARY BYPASS GRAFT (4) Troponin I above reference range Code(s): R74.8 - ABNORMAL LEVELS OF OTHER SERUM ENZYMES (5) Acute exacerbation of CHF (congestive heart failure) Code(s): I50.9 - HEART FAILURE, UNSPECIFIED Qualifiers: (6) Influenza A Code(s): J10.1 - FLU DUE TO OTH IDENT INFLUENZA VIRUS W OTH RESP MANIFEST (7) Afib Code(s): I48.91 - UNSPECIFIED ATRIAL FIBRILLATION Qualifiers: Atrial fibrillation type: chronic Qualified Code(s): I48.2 - Chronic atrial fibrillation (8) COPD exacerbation Code(s): J44.1 - CHRONIC OBSTRUCTIVE PULMONARY DISEASE W (ACUTE) EXACERBATION (9) Cough Code(s): R05 - COUGH (10) Pneumonia Code(s): J18.9 - PNEUMONIA, UNSPECIFIED ORGANISM (11) S/P AVR Code(s): Z95.2 - PRESENCE OF PROSTHETIC HEART VALVE (12) Shortness of breath Code(s): R06.02 - SHORTNESS OF BREATH (13) Weakness Code(s): R53.1 - WEAKNESS (14) CAD (coronary artery disease) Code(s): I25.10 - ATHSCL HEART DISEASE OF [place] CORONARY ARTERY W/O ANG PCTRS Qualifiers: [place] vs. transplanted heart: [place] heart Associated angina: without angina (15) CHF (congestive heart failure) Code(s): I50.9 - HEART FAILURE, UNSPECIFIED Qualifiers: Heart failure type: systolic Heart failure chronicity: chronic Qualified Code(s): I50.22 - Chronic systolic (congestive) heart failure (16) Chronic renal insufficiency, stage III (moderate) Code(s): N18.3 - CHRONIC KIDNEY DISEASE, STAGE 3 (MODERATE) (17) Coronary artery disease Code(s): I25.10 - ATHSCL HEART DISEASE OF [place] CORONARY ARTERY W/O ANG PCTRS Qualifiers: Coronary Disease-Associated Artery/Lesion type: bypass graft, other Associated angina: with other forms of angina Qualified Code(s): I25.798 - Atherosclerosis of other coronary artery bypass graft(s) with other forms of angina pectoris (18) HTN (hypertension) Code(s): I10 - ESSENTIAL (PRIMARY) HYPERTENSION Qualifiers: Hypertension type: essential hypertension Qualified Code(s): I10 - Essential (primary) hypertension (19) Peripheral vascular disease Code(s): I73.9 - PERIPHERAL VASCULAR DISEASE, UNSPECIFIED (20) Lactate blood increase Code(s): R79.89 - OTHER SPECIFIED ABNORMAL FINDINGS OF BLOOD CHEMISTRY
--- NOTE | 2018-03-30 10:52 | PN ---
Physical Exam: SUBJECTIVE: Patient seen and examined at bed side this morning. States he feels better. Shortness of breath has improved and the swelling of the legs has decreased. Denies chest pain, palpitation, abdominal pain, nausea or vomiting. No BM today. Bladder habit normal. No acute overnight events. OBJECTIVE: Vital Signs Period Temp Pulse Resp BP Sys/El Pulse Ox Last 24 Hr 97.8 F-98.1 F 93-127 18-20 118-164/80-104 82 GENERAL: Middle aged obese male, lying in bed, Awake, alert, and fully oriented , in no acute distress, nasal canula @ 2L. HEAD: Normal with no signs of trauma. EYES:EOM intact, no pallor or icterus. EARS, NOSE, THROAT: Ears normal, moist mucous membranes. NECK:Supple. LUNGS: B/L Breath sounds equal, bibasilar crackles (improved), No accessory muscle use. HEART: Irregularly irregular, rate, normal S1 and S2 with systolic murmur. ABDOMEN: Soft, nontender, no organomegaly. MUSCULOSKELETAL: Normal range of motion at all joints. No bony deformities or tenderness. No CVA tenderness. UPPER EXTREMITIES: 2+ pulses, warm, well-perfused. No cyanosis. No clubbing. No peripheral edema. LOWER EXTREMITIES: 2+ pulses, warm, well-perfused. No calf tenderness. Pitting edema b/l-improved. NEUROLOGICAL: No facial droop. Normal speech. Gait not observed. PSYCHIATRIC: Cooperative. Good eye contact. Appropriate mood and affect. SKIN: Warm, dry, normal turgor, no rashes or lesions noted, normal capillary refill. Laboratory Results - last 24 hr 03/29/18 03/29/18 03/29/18 06:00 06:00 11:41 WBC RBC Hgb Hct MCV MCH MCHC RDW Plt Count MPV Neutrophils % (Manual) 91.0 H Band Neutrophils % 1.0 Lymphocytes % (Manual) 2.0 L D Monocytes % (Manual) 5 Eosinophils % (Manual) 0.0 Basophils % (Manual) 0.0 Myelocytes % (Man) 0 D Promyelocytes % (Man) 0 Blast Cells % (Manual) 0 Metamyelocytes 0 D Hypochromia 1+ Platelet Estimate Normal Polychromasia 1+ Poikilocytosis 0 Basophilic Stippling 1+ Anisocytosis 2+ Microcytosis 0 Macrocytosis 0 Spherocytes 1+ Tear Drop Cells 1+ Ovalocytes 1+ Sodium Potassium Chloride Carbon Dioxide Anion Gap BUN Creatinine Creat Clearance w eGFR POC Glucometer 337 Random Glucose Calcium Iron 52 TIBC 219 L Iron Saturation 24 Free T3 2.0 03/29/18 03/29/18 03/30/18 16:44 21:55 05:29 WBC RBC Hgb Hct MCV MCH MCHC RDW Plt Count MPV Neutrophils % (Manual) Band Neutrophils % Lymphocytes % (Manual) Monocytes % (Manual) Eosinophils % (Manual) Basophils % (Manual) Myelocytes % (Man) Promyelocytes % (Man) Blast Cells % (Manual) Metamyelocytes Hypochromia Platelet Estimate Polychromasia Poikilocytosis Basophilic Stippling Anisocytosis Microcytosis Macrocytosis Spherocytes Tear Drop Cells Ovalocytes Sodium Potassium Chloride Carbon Dioxide Anion Gap BUN Creatinine Creat Clearance w eGFR POC Glucometer 355 387 259 Random Glucose Calcium Iron TIBC Iron Saturation Free T3 03/30/18 03/30/18 06:00 06:00 WBC 12.4 H RBC 3.03 L Hgb 9.1 L Hct 28.1 L MCV 92.7 MCH 30.2 MCHC 32.5 RDW 16.4 H Plt Count 161 MPV 8.3 Neutrophils % (Manual) Band Neutrophils % Lymphocytes % (Manual) Monocytes % (Manual) Eosinophils % (Manual) Basophils % (Manual) Myelocytes % (Man) Promyelocytes % (Man) Blast Cells % (Manual) Metamyelocytes Hypochromia Platelet Estimate Polychromasia Poikilocytosis Basophilic Stippling Anisocytosis Microcytosis Macrocytosis Spherocytes Tear Drop Cells Ovalocytes Sodium 134 L Potassium 3.9 Chloride 96 L Carbon Dioxide 29 Anion Gap 10 BUN 45 H Creatinine 2.0 H Creat Clearance w eGFR 34.03 POC Glucometer Random Glucose 233 H Calcium 8.3 L Iron TIBC Iron Saturation Free T3 Active Medications Generic Name Dose Route Start Last Admin Trade Name Freq PRN Reason Stop Dose Admin Albuterol Sulfate 1 amp 03/28/18 13:56 Ventolin 0.083% Nebulizer Soln - NEB Q4H PRN SHORT OF BREATH/WHEEZING Albuterol/Ipratropium 1 amp 03/28/18 16:00 03/30/18 08:30 Duoneb - NEB 1 amp RQID MANJU Administration Aspirin 81 mg 03/29/18 10:00 03/30/18 09:52 Ecotrin - PO 81 mg DAILY MANJU Administration Atorvastatin Calcium 20 mg 03/28/18 22:00 03/29/18 22:00 Lipitor - PO 20 mg HS MANJU Administration Carvedilol 25 mg 03/28/18 22:00 03/30/18 09:51 Coreg - PO 25 mg BID MANJU Administration Cholecalciferol 2,000 unit 03/29/18 10:00 03/30/18 09:51 Vitamin D3 - PO 2,000 unit DAILY MANJU Administration Cyclobenzaprine HCl 5 mg 03/28/18 22:00 03/30/18 09:53 Flexeril - PO 5 mg BID MANJU Administration Docusate Sodium 100 mg 03/28/18 14:00 03/30/18 06:33 Colace - PO 100 mg TID MANJU Administration Furosemide 40 mg 03/29/18 10:00 03/30/18 09:50 Lasix Injection - IVPUSH 40 mg DAILY MANJU Administration Heparin Sodium (Porcine) 5,000 unit 03/28/18 14:00 03/30/18 06:34 Heparin - SQ 5,000 unit TID MANJU Administration Piperacillin Sod/Tazobactam 50 mls @ 100 mls/hr 03/28/18 15:00 03/30/18 09:47 Sod 3.375 gm/ Dextrose IVPB 100 mls/hr Q6H-IV MANJU Administration Protocol Insulin Aspart 1 vial 03/28/18 12:23 03/30/18 06:34 Novolog Vial Sliding Scale - SQ 4 units ACHS MANJU Administration Protocol Methylprednisolone Sodium Succinate 40 mg 03/28/18 18:00 03/30/18 09:49 Solu-Medrol - IVPUSH 40 mg Q8H-IV MANJU Administration Miscellaneous 1 each 03/28/18 22:00 03/29/18 22:01 Lidoderm Patch Removal MC 1 each DAILY@2200 MANJU Administration Oseltamivir Phosphate 75 mg 03/28/18 22:00 03/30/18 09:51 Tamiflu - PO 04/02/18 21:59 75 mg BID MANJU Administration Oxycodone HCl 10 mg 03/29/18 09:17 03/30/18 06:58 Roxicodone - PO 10 mg Q6H PRN Administration PAIN LEVEL 6-10 Pantoprazole Sodium 40 mg 03/29/18 10:00 03/30/18 09:52 Protonix - PO 40 mg DAILY MANJU Administration Psyllium Hydrophilic Mucilloid 5.85 gm 03/28/18 22:00 03/30/18 09:48 Metamucil (Sugar-Free) - PO 5.85 gm BID MANJU Administration Zolpidem Tartrate 10 mg 03/28/18 13:51 03/29/18 21:59 Ambien - PO 10 mg HS PRN Administration INSOMNIA ASSESSMENT/PLAN: Patient is a 62 year old male with significant past medical history of COPD on 3L home O2, pEFHF, CAD, ICD placement, PAD, DM, Atrial fibrillation not on A/c due to risk of fall was brought in to the ED by family members due to shortness of breath. # Acute hypoxic respiratory failure likely secondary to CHF/COPD exacerbation superimposed by Pneumonia and Flu SOB and swelling of legs has improved with Lasix but still has bibasilar crackles.Continue IV Lasix 40mg Daily Continuous cardiac monitoring Continue Symbicort, Albuterol PRN On IV Solumedrol 40mg Q8H, will taper starting tomorrow. Strict I's and O's Daily weight. Appreciate Cardiology consult. # Pneumonia and Flu (Influenza A positive) Leukocytosis of 8-->12.4 (could be from steroids) Continue IV Zosyn 3.375 gm Q6H Day 3 Blood cultures negative CXR in AM # Elevated troponins likely from Demand ischemia # Prolonged Qtc 582 Avoid any Qtc prolonging agents # CKD creatinine 2 (around his baseline) Avoid Nephrotoxic drugs # Normocytic anemia H/H 9.1/28.1, stable. likely from CKD Iron studies: High ferritin, normal Iron. B12 and Folate high. # Atrial fibrillation CHADsVASc score of 4. Not on a/c due to risk of fall. PT to evaluate. # Hypertension-controlled Continue Carvedilol 25 mg PO BID # Pharmacy: Couldn't confirm home meds since pharmacy is closed. # FEN Not on IV fluids due to volume overloaded. Electrolytes WNL Diabetic diet/fat controlled # Prophylaxis For DVT: On Heparin 5000 IU sq TID FoR GI: Not indicated # Code status: Full Code # Dispo:Admit to tele inpatient. Duration of stay unknown. Illness, Investigation and Plan of care explained to the patient. He verbalized understanding. Case discussed with Dr. Puhg Problem List - Problems (1) Acute exacerbation of CHF (congestive heart failure) Code(s): I50.9 - HEART FAILURE, UNSPECIFIED Qualifiers: (2) Influenza A Code(s): J10.1 - FLU DUE TO OTH IDENT INFLUENZA VIRUS W OTH RESP MANIFEST (3) Neck pain on right side Code(s): M54.2 - CERVICALGIA (4) Respiratory distress Code(s): R06.00 - DYSPNEA, UNSPECIFIED (5) COPD (chronic obstructive pulmonary disease) Code(s): J44.9 - CHRONIC OBSTRUCTIVE PULMONARY DISEASE, UNSPECIFIED (6) ERROL (acute kidney injury) Code(s): N17.9 - ACUTE KIDNEY FAILURE, UNSPECIFIED (7) Afib Code(s): I48.91 - UNSPECIFIED ATRIAL FIBRILLATION Qualifiers: Atrial fibrillation type: chronic Qualified Code(s): I48.2 - Chronic atrial fibrillation Visit type - Emergency Visit Emergency Visit: Yes ED Registration Date: 03/28/18 Care time: The patient presented to the Emergency Department on the above date and was hospitalized for further evaluation of their emergent condition. - New Patient This patient is new to me today: No - Critical Care Critical Care patient: No - Discharge Referral Referred to [facility] No
--- NOTE | 2018-03-30 16:01 | PN ---
Teaching Attending Note Name of Resident: Paula Yeung ATTENDING PHYSICIAN STATEMENT I saw and evaluated the patient. I reviewed the resident's note and discussed the case with the resident. I agree with the resident's findings and plan as documented. SUBJECTIVE: Patient reports he is feeling better. He denies SOB. OBJECTIVE: Vital Signs Period Temp Pulse Resp BP Sys/El Pulse Ox Last 24 Hr 97.4 F-98.1 F 112-128 16-20 135-164/80-104 82-100 GENERAL: The patient is awake, alert, and fully oriented, in no acute distress. LUNGS: Bibasilar crackles. HEART: Regular rate and rhythm, S1, S2 without murmur, rub or gallop. ABDOMEN: Soft, nontender, nondistended, normoactive bowel sounds, no guarding, no rebound, no hepatosplenomegaly, no masses. EXTREMITIES: 2+ pulses, warm, well-perfused, no edema. Laboratory Results - last 24 hr 03/29/18 03/29/18 03/29/18 06:00 16:44 21:55 WBC RBC Hgb Hct MCV MCH MCHC RDW Plt Count MPV Sodium Potassium Chloride Carbon Dioxide Anion Gap BUN Creatinine Creat Clearance w eGFR POC Glucometer 355 387 Random Glucose Lactic Acid Calcium Iron 52 TIBC 219 L Iron Saturation 24 Troponin I Free T3 2.0 03/30/18 03/30/18 03/30/18 05:29 06:00 06:00 WBC 12.4 H RBC 3.03 L Hgb 9.1 L Hct 28.1 L MCV 92.7 MCH 30.2 MCHC 32.5 RDW 16.4 H Plt Count 161 MPV 8.3 Sodium 134 L Potassium 3.9 Chloride 96 L Carbon Dioxide 29 Anion Gap 10 BUN 45 H Creatinine 2.0 H Creat Clearance w eGFR 34.03 POC Glucometer 259 Random Glucose 233 H Lactic Acid Calcium 8.3 L Iron TIBC Iron Saturation Troponin I Free T3 03/30/18 03/30/18 03/30/18 11:28 11:30 11:30 WBC RBC Hgb Hct MCV MCH MCHC RDW Plt Count MPV Sodium Potassium Chloride Carbon Dioxide Anion Gap BUN Creatinine Creat Clearance w eGFR POC Glucometer 342 Random Glucose Lactic Acid 1.3 Calcium Iron TIBC Iron Saturation Troponin I 0.06 H Free T3 Current Medications Generic Name Dose Route Start Last Admin Trade Name Freq PRN Reason Stop Dose Admin Albuterol Sulfate 1 amp 03/28/18 13:56 Ventolin 0.083% Nebulizer Soln - NEB Q4H PRN SHORT OF BREATH/WHEEZING Albuterol/Ipratropium 1 amp 03/28/18 16:00 03/30/18 12:38 Duoneb - NEB 1 amp RQID MANJU Administration Aspirin 81 mg 03/29/18 10:00 03/30/18 09:52 Ecotrin - PO 81 mg DAILY MANJU Administration Atorvastatin Calcium 20 mg 03/28/18 22:00 03/29/18 22:00 Lipitor - PO 20 mg HS MANJU Administration Carvedilol 25 mg 03/28/18 22:00 03/30/18 09:51 Coreg - PO 25 mg BID MANJU Administration Cholecalciferol 2,000 unit 03/29/18 10:00 03/30/18 09:51 Vitamin D3 - PO 2,000 unit DAILY MANJU Administration Cyclobenzaprine HCl 5 mg 03/28/18 22:00 03/30/18 09:53 Flexeril - PO 5 mg BID MANJU Administration Docusate Sodium 100 mg 03/28/18 14:00 03/30/18 14:20 Colace - PO 100 mg TID MANJU Administration Furosemide 40 mg 03/30/18 14:00 03/30/18 14:20 Lasix Injection - IVPUSH 40 mg BID@0600,1400 MANJU Administration Heparin Sodium (Porcine) 5,000 unit 03/28/18 14:00 03/30/18 14:20 Heparin - SQ 5,000 unit TID MANJU Administration Piperacillin Sod/Tazobactam 50 mls @ 100 mls/hr 03/28/18 15:00 03/30/18 14:20 Sod 3.375 gm/ Dextrose IVPB 100 mls/hr Q6H-IV MANJU Administration Protocol Insulin Aspart 1 vial 03/28/18 12:23 03/30/18 12:03 Novolog Vial Sliding Scale - SQ 8 units ACHS MANJU Administration Protocol Methylprednisolone Sodium Succinate 40 mg 03/28/18 18:00 03/30/18 09:49 Solu-Medrol - IVPUSH 40 mg Q8H-IV MANJU Administration Miscellaneous 1 each 03/28/18 22:00 03/29/18 22:01 Lidoderm Patch Removal MC 1 each DAILY@2200 MANJU Administration Oseltamivir Phosphate 75 mg 03/28/18 22:00 03/30/18 09:51 Tamiflu - PO 04/02/18 21:59 75 mg BID MANJU Administration Oxycodone HCl 10 mg 03/29/18 09:17 03/30/18 14:20 Roxicodone - PO 10 mg Q6H PRN Administration PAIN LEVEL 6-10 Pantoprazole Sodium 40 mg 03/29/18 10:00 03/30/18 09:52 Protonix - PO 40 mg DAILY MANJU Administration Psyllium Hydrophilic Mucilloid 5.85 gm 03/28/18 22:00 03/30/18 09:48 Metamucil (Sugar-Free) - PO 5.85 gm BID MANJU Administration Zolpidem Tartrate 10 mg 03/28/18 13:51 03/29/18 21:59 Ambien - PO 10 mg HS PRN Administration INSOMNIA ASSESSMENT AND PLAN: This is a 62 year old man with a history of COPD, chronic hypoxic respiratory failure, CAD, chronic diastolic heart failure, AICD, PAD, type 2 DM, diabetic neuropathy, pulm HTN, atrial fib, stage 3 CKD, falls who presented to the ED with SOB, chills, aches. 1. Acute on chronic hypoxic respiratory secondary to acute on chronic systolic heart failure, acute exacerbation of COPD, sepsis (tachypnea, leukocytosis), healthcare associated pneumonia, influenza A - Continue Lasix IV, Coreg - Continue SoluMedrol, Zosyn (day 3), Tamiflu (day 3), DuoNeb, Albuterol as needed - Continue to hold Symbicort, Spiriva - Not on ACEI/ARB secondary to hyperkalemia history - Oxygen to maintain saturation >90% - I&O - Daily weight 2. CAD - Continue aspirin, Coreg, Lipitor 3. Permanent atrial fibrillation - Not on anticoagulation secondary to fall risk 4. HTN - Continue Coreg, Lasix 5. Pulmonary HTN 6. History of AICD 7. Type 2 DM with peripheral neuropathy - Glipizide held - Fingersticks with Novolog sliding scale 8. Peripheral artery disease 9. Stage 3 CKD - Stable 10. Normocytic anemia, chronic - TSH low, FT4 high, FT3 normal - B12, folate are high - Iron and iron sat are low normal - TIBC is low - Ferritin is high
[2018-03-30] MEDS: ATORVASTATIN CA 20 MG TABLET (FP) PO SCH (21:07)
[2018-03-30] MEDS: ZOLPIDEM TARTRATE 5 MG TABLET PO PRN (22:19)
[2018-03-31] MEDS ORDERED: PIPERACILLIN/TAZOBACTAM 3.375 GM VIAL IVPB ONE ×4 (02:23→22:50)
[2018-03-31] MEDS ORDERED: DEXTROSE 5%-WATER - 50 ML IVPB ONE ×4 (02:23→22:50)
[2018-03-31] MEDS: methylPREDNISolone NA SUCC 40 MG/1 ML VIAL IVPUSH SCH ×3 (02:30→22:52)
[2018-03-31] MEDS: PIPERACILLIN/TAZOB 3.375 GM 3.375 GM in DEXTROSE 5%-WATER - 50 ML IVPB SCH ×4 (02:30→22:52)
[2018-03-31] MEDS: HEPARIN NA (PORCINE) 5,000 UNITS/ML 1ML VIAL SQ SCH ×3 (06:12→22:52)
[2018-03-31] MEDS: oxyCODONE HCL 5 MG TABLET PO PRN ×3 (06:12→18:48)
[2018-03-31] MEDS: INSULIN SLIDING SCALE (NOVOLOG) 1 VIAL SQ SCH ×4 (06:12→22:53)
[2018-03-31] MEDS: DOCUSATE SODIUM 100 MG CAPSULE (FP) PO SCH ×3 (06:12→22:52)
[2018-03-31] MEDS: FUROSEMIDE 40 MG/4 ML INJECTABLE VIAL IVPUSH SCH (06:12)
[2018-03-31 07:36] LABS: MCH 32.9 pg (25.7-33.7); MCHC 35.7 g/dl (32.0-35.9); MEAN CELL VOLUME 92.3 fl (80-96); MEAN PLT VOLUME 8.9 fl (7.5-11.1); PLATELET COUNT 168 K/MM3 (134-434); RBC 3.03 M/mm3 (4.00-5.60); RDW 16.1 % (11.9-15.9); WHITE BLOOD COUNT 10.4 K/mm3 (4.0-10.0)
[2018-03-31 08:35] LABS: ANION GAP 9 MMOL/L (8-16); BLOOD UREA NITROGEN 55 mg/dL (7-18); CALCIUM 8.2 mg/dL (8.5-10.1); CHLORIDE 97 mmol/L (98-107); CO2 28 mmol/L (21-32); CREATININE 2.4 mg/dL (0.55-1.3); GLUCOSE,RANDOM 263 mg/dL (74-106); POTASSIUM 3.8 mmol/L (3.5-5.1); SODIUM 134 mmol/L (136-145)
[2018-03-31] MEDS: ALBUTEROL SO4 2.5/IPRATROPIUM 0.5 INH SOL 3 ML VIAL.NEB. NEB SCH ×4 (08:49→20:35)
[2018-03-31] MEDS ORDERED: PT OWN MED DRAWER 7, Y5N ONE ×2 (09:02→22:55)
[2018-03-31] MEDS: PSYLLIUM 5.85 GM PACKET PO SCH ×2 (09:11→22:52)
[2018-03-31] MEDS: ASPIRIN COATED 81 MG TABLET.EC PO SCH (09:12)
[2018-03-31] MEDS: PANTOPRAZOLE 40 MG TABLET (FP) PO SCH (09:12)
[2018-03-31] MEDS: OSELTAMIVIR PHOSPHATE 75 MG CAPSULE PO SCH ×2 (09:12→22:55)
[2018-03-31] MEDS: CARVEDILOL 25 MG TABLET (FP) PO SCH ×2 (09:12→22:53)
[2018-03-31] MEDS: CYCLOBENZAPRINE HCL 10 MG TABLET (FP) PO SCH ×2 (09:12→22:53)
[2018-03-31] MEDS: CHOLECALCIFEROL (VITAMIN D3) 1,000 UNIT TABLET (FP) PO SCH (09:12)
--- NOTE | 2018-03-31 09:53 | PN ---
Progress Note (short form) - Note Progress Note: Consultation Note: cc: sob s: sob improving. no chest pain, palps, dizziness, lightheadedness Current Medications Albuterol Sulfate (Ventolin 0.083% Nebulizer Soln -) 1 amp NEB Q4H PRN PRN Reason: SHORT OF BREATH/WHEEZING Albuterol/Ipratropium (Duoneb -) 1 amp NEB RQID [facility] Last Admin: 03/31/18 08:49 Dose: 1 amp Aspirin (Ecotrin -) 81 mg PO DAILY [facility] Last Admin: 03/31/18 09:12 Dose: 81 mg Atorvastatin Calcium (Lipitor -) 20 mg PO HS [facility] Last Admin: 03/30/18 21:07 Dose: 20 mg Carvedilol (Coreg -) 25 mg PO BID [facility] Last Admin: 03/31/18 09:12 Dose: 25 mg Cholecalciferol (Vitamin D3 -) 2,000 unit PO DAILY [facility] Last Admin: 03/31/18 09:12 Dose: 2,000 unit Cyclobenzaprine HCl (Flexeril -) 5 mg PO BID [facility] Last Admin: 03/31/18 09:12 Dose: 5 mg Docusate Sodium (Colace -) 100 mg PO TID [facility] Last Admin: 03/31/18 06:12 Dose: 100 mg Furosemide (Lasix Injection -) 40 mg IVPUSH DAILY [facility] Heparin Sodium (Porcine) (Heparin -) 5,000 unit SQ TID [facility] Last Admin: 03/31/18 06:12 Dose: 5,000 unit Piperacillin Sod/Tazobactam (Sod 3.375 gm/ Dextrose) 50 mls @ 100 mls/hr IVPB Q6H-IV [facility]; Protocol Last Admin: 03/31/18 09:11 Dose: 100 mls/hr Insulin Aspart (Novolog Vial Sliding Scale -) 1 vial SQ ACHS [facility]; Protocol Last Admin: 03/31/18 06:12 Dose: 6 units Methylprednisolone Sodium Succinate (Solu-Medrol -) 40 mg IVPUSH Q8H-IV [facility] Last Admin: 03/31/18 09:11 Dose: 40 mg Oseltamivir Phosphate (Tamiflu -) 75 mg PO BID [facility] Stop: 04/02/18 21:59 Last Admin: 03/31/18 09:12 Dose: 75 mg Oxycodone HCl (Roxicodone -) 10 mg PO Q6H PRN PRN Reason: PAIN LEVEL 6-10 Last Admin: 03/31/18 06:12 Dose: 10 mg Pantoprazole Sodium (Protonix -) 40 mg PO DAILY [facility] Last Admin: 03/31/18 09:12 Dose: 40 mg Psyllium Hydrophilic Mucilloid (Metamucil (Sugar-Free) -) 5.85 gm PO BID [facility] Last Admin: 03/31/18 09:11 Dose: 5.85 gm Zolpidem Tartrate (Ambien -) 10 mg PO HS PRN PRN Reason: INSOMNIA Last Admin: 03/30/18 22:19 Dose: 10 mg pe: Vital Signs Period Temp Pulse Resp BP Sys/El Pulse Ox Last 24 Hr 97.3 F-98.1 F 121-129 16-18 119-151/75-98 100 nad, +JVD rrr s1s2 no mrg scattered rhonchi, nl eff aaox3 no le e/c/c abd nt nd pos bs no jaundice diaphoresis +dp pt no carotid bruits ECG: AFL, intermittent V-S/V-P, + ST-Ts unchanged vs prior CXR: chf and pna echo 06/2016: sev dec lvef, global hk, rv tds, trinity, mod-sev mr, mod tr, rvsp 50- 60 echo 06/2015: mild lve, mod-sev dec lvef, mod lae, nl rv size, mild dec rv fcn, mild-mod mr, mild tr, nl avr fcn, rvsp 30-40 mibi 06/2016 (pers): non-diagnostic STs; large area inferior/inferolateral/ lateral scar; no ischemia; severe LV cavity dilation; global HK with akinesis of inferior/inferolat/lateral allan; EF 16% mibi 09/2014: large inf scar, mod anteroapical ischemia, lvef 25% tele: AFL HR 120s Vs/[employer]. no VT a/p: 62 m hx copd, cabgx3 2012, bio avr 2012, pad s/p b/l sfa occlusions, syst chf s/p medtr[employer] icd, htn, hld, a-tach, here with back pain, sob. pna, flu: -cont abx per ID acute on chronic systolic CHF exacerbation: -past dry wt here 187 lbs -here with mild chf exacerbation likely worsened by flu/pna -03/30 was on lasix 80 po qd at home, weight stable, stable Cr, feels the same - increased lasix to40 mg IV BID -03/31 Cr rising, change to lasix 40 mg IV daily -cont carvedilol. not on ACEI due to h/o hyperkalemia atrial flutter: -pt in AFL on ekg -CHADS VASC 4, warrants AC for cardioembolic prophylaxis. pt is at prohibitive risks of falls/head trauma at present (very frequent falls recently including head trauma, suspected LE weakness with mechanical falls etiology) will defer AC for now. Prior plan was for pt to f/u in office to discuss fall risk/ac further but he did not come to appt (often misses appts). Rec'd that he have PT eval while here to assess his fall status so can decide upon custodial AC before leaves. - cont carvedilol, episodes of RVR likely more frequent in setting of PNA, flu - metoprolol IV PRN for tachycardia cad/hx of CABG 2012 -no recent angina/ischemia -trop chronically in intermediate range, no change in current values, trend is flat, ck nl, not c/w acs -cont prior cad med regimen: asa, statin, bb, ccb bio avr: -nl fcn on echo 06/20 mitral regurgitation: -likely functional MR, mild-mod on echo 06/19, then "mod-severe" when here 06/20 with suspected acute chf and pulm pressures up (though at risk for overestimation of MR severity on that echo report) -valve morphology not described (tethered leaflets?) -no murmur on exam -reassess MR severity on echo as outpt CKD: -baseline creatinine 2-2.5; -renal fxn stable here pad: -stable, no claudication, cont current cardiac meds s/p icd: -no shocks on check earlier this month -routine outpt monitoring htn: -bp stable -cont home meds
--- NOTE | 2018-03-31 11:24 | PN ---
Progress Note, Physician History of Present Illness: pulmonary alert,still c/o sob,feeling weak - Current Medication List Current Medications: Active Medications Albuterol Sulfate (Ventolin 0.083% Nebulizer Soln -) 1 amp NEB Q4H PRN PRN Reason: SHORT OF BREATH/WHEEZING Albuterol/Ipratropium (Duoneb -) 1 amp NEB RQID [facility] Last Admin: 03/31/18 08:49 Dose: 1 amp Aspirin (Ecotrin -) 81 mg PO DAILY [facility] Last Admin: 03/31/18 09:12 Dose: 81 mg Atorvastatin Calcium (Lipitor -) 20 mg PO HS [facility] Last Admin: 03/30/18 21:07 Dose: 20 mg Carvedilol (Coreg -) 25 mg PO BID [facility] Last Admin: 03/31/18 09:12 Dose: 25 mg Cholecalciferol (Vitamin D3 -) 2,000 unit PO DAILY [facility] Last Admin: 03/31/18 09:12 Dose: 2,000 unit Cyclobenzaprine HCl (Flexeril -) 5 mg PO BID [facility] Last Admin: 03/31/18 09:12 Dose: 5 mg Docusate Sodium (Colace -) 100 mg PO TID [facility] Last Admin: 03/31/18 06:12 Dose: 100 mg Furosemide (Lasix Injection -) 40 mg IVPUSH DAILY [facility] Heparin Sodium (Porcine) (Heparin -) 5,000 unit SQ TID [facility] Last Admin: 03/31/18 06:12 Dose: 5,000 unit Piperacillin Sod/Tazobactam (Sod 3.375 gm/ Dextrose) 50 mls @ 100 mls/hr IVPB Q6H-IV [facility]; Protocol Last Admin: 03/31/18 09:11 Dose: 100 mls/hr Insulin Aspart (Novolog Vial Sliding Scale -) 1 vial SQ ACHS [facility]; Protocol Last Admin: 03/31/18 06:12 Dose: 6 units Methylprednisolone Sodium Succinate (Solu-Medrol -) 40 mg IVPUSH Q8H-IV [facility] Last Admin: 03/31/18 09:11 Dose: 40 mg Metoprolol Tartrate (Lopressor Injection -) 5 mg IVPUSH Q4H PRN PRN Reason: TACHYCARDIA Oseltamivir Phosphate (Tamiflu -) 75 mg PO BID [facility] Stop: 04/02/18 21:59 Last Admin: 03/31/18 09:12 Dose: 75 mg Oxycodone HCl (Roxicodone -) 10 mg PO Q6H PRN PRN Reason: PAIN LEVEL 6-10 Last Admin: 03/31/18 06:12 Dose: 10 mg Pantoprazole Sodium (Protonix -) 40 mg PO DAILY [facility] Last Admin: 03/31/18 09:12 Dose: 40 mg Psyllium Hydrophilic Mucilloid (Metamucil (Sugar-Free) -) 5.85 gm PO BID [facility] Last Admin: 03/31/18 09:11 Dose: 5.85 gm Zolpidem Tartrate (Ambien -) 10 mg PO HS PRN PRN Reason: INSOMNIA Last Admin: 03/30/18 22:19 Dose: 10 mg - Objective Vital Signs: Vital Signs Temperature 97.9 F 03/31/18 09:00 Pulse Rate 128 H 03/31/18 09:00 Respiratory Rate 18 03/31/18 09:00 Blood Pressure 130/79 03/31/18 09:00 O2 Sat by Pulse Oximetry (%) 100 03/30/18 21:00 Constitutional: Yes: Well Nourished, Calm Eyes: Yes: WNL HENT: Yes: WNL Neck: Yes: WNL Cardiovascular: Yes: Pulse Irregular, S1, S2 Respiratory: Yes: Rales (bibasilar crackles) Gastrointestinal: Yes: Normal Bowel Sounds, Soft Extremities: Yes: WNL Edema: No Labs: CBC, BMP 03/31/18 06:10 03/31/18 06:10 INR, PTT INR 1.36 (0.83-1.09) H 03/28/18 07:15 - ....Imaging Chest X-ray: Report Reviewed, Image Reviewed Problem List - Problems (1) Acute on chronic respiratory failure with hypoxemia Code(s): J96.21 - ACUTE AND CHRONIC RESPIRATORY FAILURE WITH HYPOXIA (2) S/P CABG x 3 Code(s): Z95.1 - PRESENCE OF AORTOCORONARY BYPASS GRAFT (4) Troponin I above reference range Code(s): R74.8 - ABNORMAL LEVELS OF OTHER SERUM ENZYMES (5) Acute exacerbation of CHF (congestive heart failure) Code(s): I50.9 - HEART FAILURE, UNSPECIFIED Qualifiers: (6) Influenza A Code(s): J10.1 - FLU DUE TO OTH IDENT INFLUENZA VIRUS W OTH RESP MANIFEST (7) Afib Code(s): I48.91 - UNSPECIFIED ATRIAL FIBRILLATION Qualifiers: Atrial fibrillation type: chronic Qualified Code(s): I48.2 - Chronic atrial fibrillation (8) COPD exacerbation Code(s): J44.1 - CHRONIC OBSTRUCTIVE PULMONARY DISEASE W (ACUTE) EXACERBATION (9) Cough Code(s): R05 - COUGH (10) Pneumonia Code(s): J18.9 - PNEUMONIA, UNSPECIFIED ORGANISM (11) S/P AVR Code(s): Z95.2 - PRESENCE OF PROSTHETIC HEART VALVE (12) Shortness of breath Code(s): R06.02 - SHORTNESS OF BREATH (13) Weakness Code(s): R53.1 - WEAKNESS (14) CAD (coronary artery disease) Code(s): I25.10 - ATHSCL HEART DISEASE OF [place] CORONARY ARTERY W/O ANG PCTRS Qualifiers: [place] vs. transplanted heart: [place] heart Associated angina: without angina (15) CHF (congestive heart failure) Code(s): I50.9 - HEART FAILURE, UNSPECIFIED Qualifiers: Heart failure type: systolic Heart failure chronicity: chronic Qualified Code(s): I50.22 - Chronic systolic (congestive) heart failure (16) Chronic renal insufficiency, stage III (moderate) Code(s): N18.3 - CHRONIC KIDNEY DISEASE, STAGE 3 (MODERATE) (17) Coronary artery disease Code(s): I25.10 - ATHSCL HEART DISEASE OF [place] CORONARY ARTERY W/O ANG PCTRS Qualifiers: Coronary Disease-Associated Artery/Lesion type: bypass graft, other Associated angina: with other forms of angina Qualified Code(s): I25.798 - Atherosclerosis of other coronary artery bypass graft(s) with other forms of angina pectoris (18) HTN (hypertension) Code(s): I10 - ESSENTIAL (PRIMARY) HYPERTENSION Qualifiers: Hypertension type: essential hypertension Qualified Code(s): I10 - Essential (primary) hypertension (19) Peripheral vascular disease Code(s): I73.9 - PERIPHERAL VASCULAR DISEASE, UNSPECIFIED (20) Lactate blood increase Code(s): R79.89 - OTHER SPECIFIED ABNORMAL FINDINGS OF BLOOD CHEMISTRY Assessment/Plan IMP ACUTE ON CHRONIC HYPOXEMIC RESPIRATORY FAILURE ACUTE ON CHRONIC CHF S/P AICD COPD O2 DEPENDENT + TROPONIN ASHD S/P CABG S/P AVR ? PNEUMONIA ATYPICAL CP ACUTE ON CKD WORSENING PULMONARY HTN INFLUENZA A AFIB ELEVATED LACTATE LEVEL IMPROVED PLAN IV LASIX PER CARDIOLOGY O2 INHALED BRONCHODILATORS ABX PER ID TAMIFLU F/U CHEST X-RAYS MONITOR LYTES,RENAL FUNCTION CHEST CT DR [place] Problem List - Problems (1) Acute on chronic respiratory failure with hypoxemia Code(s): J96.21 - ACUTE AND CHRONIC RESPIRATORY FAILURE WITH HYPOXIA (2) S/P CABG x 3 Code(s): Z95.1 - PRESENCE OF AORTOCORONARY BYPASS GRAFT (4) Troponin I above reference range Code(s): R74.8 - ABNORMAL LEVELS OF OTHER SERUM ENZYMES (5) Acute exacerbation of CHF (congestive heart failure) Code(s): I50.9 - HEART FAILURE, UNSPECIFIED Qualifiers: (6) Influenza A Code(s): J10.1 - FLU DUE TO OTH IDENT INFLUENZA VIRUS W OTH RESP MANIFEST (7) Afib Code(s): I48.91 - UNSPECIFIED ATRIAL FIBRILLATION Qualifiers: Atrial fibrillation type: chronic Qualified Code(s): I48.2 - Chronic atrial fibrillation (8) COPD exacerbation Code(s): J44.1 - CHRONIC OBSTRUCTIVE PULMONARY DISEASE W (ACUTE) EXACERBATION (9) Cough Code(s): R05 - COUGH (10) Pneumonia Code(s): J18.9 - PNEUMONIA, UNSPECIFIED ORGANISM (11) S/P AVR Code(s): Z95.2 - PRESENCE OF PROSTHETIC HEART VALVE (12) Shortness of breath Code(s): R06.02 - SHORTNESS OF BREATH (13) Weakness Code(s): R53.1 - WEAKNESS (14) CAD (coronary artery disease) Code(s): I25.10 - ATHSCL HEART DISEASE OF [place] CORONARY ARTERY W/O ANG PCTRS Qualifiers: [place] vs. transplanted heart: [place] heart Associated angina: without angina (15) CHF (congestive heart failure) Code(s): I50.9 - HEART FAILURE, UNSPECIFIED Qualifiers: Heart failure type: systolic Heart failure chronicity: chronic Qualified Code(s): I50.22 - Chronic systolic (congestive) heart failure (16) Chronic renal insufficiency, stage III (moderate) Code(s): N18.3 - CHRONIC KIDNEY DISEASE, STAGE 3 (MODERATE) (17) Coronary artery disease Code(s): I25.10 - ATHSCL HEART DISEASE OF [place] CORONARY ARTERY W/O ANG PCTRS Qualifiers: Coronary Disease-Associated Artery/Lesion type: bypass graft, other Associated angina: with other forms of angina Qualified Code(s): I25.798 - Atherosclerosis of other coronary artery bypass graft(s) with other forms of angina pectoris (18) HTN (hypertension) Code(s): I10 - ESSENTIAL (PRIMARY) HYPERTENSION Qualifiers: Hypertension type: essential hypertension Qualified Code(s): I10 - Essential (primary) hypertension (19) Peripheral vascular disease Code(s): I73.9 - PERIPHERAL VASCULAR DISEASE, UNSPECIFIED (20) Lactate blood increase Code(s): R79.89 - OTHER SPECIFIED ABNORMAL FINDINGS OF BLOOD CHEMISTRY
[2018-03-31] MEDS: METOPROLOL TARTRATE 5 MG/5 ML VIAL IVPUSH PRN ×2 (11:35→16:24)
--- NOTE | 2018-03-31 12:32 | PN ---
Progress Note, Physician Chief Complaint: doing well still says weak breathing well looks comfortable - Current Medication List Current Medications: Active Medications Albuterol Sulfate (Ventolin 0.083% Nebulizer Soln -) 1 amp NEB Q4H PRN PRN Reason: SHORT OF BREATH/WHEEZING Albuterol/Ipratropium (Duoneb -) 1 amp NEB RQID [facility] Last Admin: 03/31/18 12:09 Dose: 1 amp Aspirin (Ecotrin -) 81 mg PO DAILY [facility] Last Admin: 03/31/18 09:12 Dose: 81 mg Atorvastatin Calcium (Lipitor -) 20 mg PO HS [facility] Last Admin: 03/30/18 21:07 Dose: 20 mg Carvedilol (Coreg -) 25 mg PO BID [facility] Last Admin: 03/31/18 09:12 Dose: 25 mg Cholecalciferol (Vitamin D3 -) 2,000 unit PO DAILY [facility] Last Admin: 03/31/18 09:12 Dose: 2,000 unit Cyclobenzaprine HCl (Flexeril -) 5 mg PO BID [facility] Last Admin: 03/31/18 09:12 Dose: 5 mg Docusate Sodium (Colace -) 100 mg PO TID [facility] Last Admin: 03/31/18 06:12 Dose: 100 mg Furosemide (Lasix Injection -) 40 mg IVPUSH DAILY [facility] Heparin Sodium (Porcine) (Heparin -) 5,000 unit SQ TID [facility] Last Admin: 03/31/18 06:12 Dose: 5,000 unit Piperacillin Sod/Tazobactam (Sod 3.375 gm/ Dextrose) 50 mls @ 100 mls/hr IVPB Q6H-IV [facility]; Protocol Last Admin: 03/31/18 09:11 Dose: 100 mls/hr Insulin Aspart (Novolog Vial Sliding Scale -) 1 vial SQ ACHS [facility]; Protocol Last Admin: 03/31/18 11:39 Dose: 10 units Methylprednisolone Sodium Succinate (Solu-Medrol -) 40 mg IVPUSH Q8H-IV [facility] Last Admin: 03/31/18 09:11 Dose: 40 mg Metoprolol Tartrate (Lopressor Injection -) 5 mg IVPUSH Q4H PRN PRN Reason: TACHYCARDIA Last Admin: 03/31/18 11:35 Dose: 5 mg Oseltamivir Phosphate (Tamiflu -) 75 mg PO BID [facility] Stop: 04/02/18 21:59 Last Admin: 03/31/18 09:12 Dose: 75 mg Oxycodone HCl (Roxicodone -) 10 mg PO Q6H PRN PRN Reason: PAIN LEVEL 6-10 Last Admin: 03/31/18 11:35 Dose: 10 mg Pantoprazole Sodium (Protonix -) 40 mg PO DAILY [facility] Last Admin: 03/31/18 09:12 Dose: 40 mg Psyllium Hydrophilic Mucilloid (Metamucil (Sugar-Free) -) 5.85 gm PO BID [facility] Last Admin: 03/31/18 09:11 Dose: 5.85 gm Zolpidem Tartrate (Ambien -) 10 mg PO HS PRN PRN Reason: INSOMNIA Last Admin: 03/30/18 22:19 Dose: 10 mg - Objective Vital Signs: Vital Signs Temperature 97.9 F 03/31/18 09:00 Pulse Rate 130 H 03/31/18 11:35 Respiratory Rate 18 03/31/18 09:00 Blood Pressure 126/69 03/31/18 11:35 O2 Sat by Pulse Oximetry (%) 100 03/30/18 21:00 Constitutional: Yes: No Distress, Calm Cardiovascular: Yes: Regular Rate and Rhythm Respiratory: Yes: Regular, CTA Bilaterally, On Nasal O2 Gastrointestinal: Yes: Normal Bowel Sounds, Soft Musculoskeletal: Yes: WNL Extremities: Yes: WNL Labs: CBC, BMP 03/31/18 06:10 03/31/18 06:10 INR, PTT INR 1.36 (0.83-1.09) H 03/28/18 07:15 Assessment/Plan Problem List - Problems (1) Acute exacerbation of CHF (congestive heart failure) Code(s): I50.9 - HEART FAILURE, UNSPECIFIED Qualifiers: (2) Influenza A Code(s): J10.1 - FLU DUE TO OTH IDENT INFLUENZA VIRUS W OTH RESP MANIFEST (3) Respiratory distress Code(s): R06.00 - DYSPNEA, UNSPECIFIED (4) COPD (chronic obstructive pulmonary disease) Code(s): J44.9 - CHRONIC OBSTRUCTIVE PULMONARY DISEASE, UNSPECIFIED (5) Afib Code(s): I48.91 - UNSPECIFIED ATRIAL FIBRILLATION Qualifiers: Atrial fibrillation type: chronic Qualified Code(s): I48.2 - Chronic atrial fibrillation (6) Chronic respiratory failure Code(s): J96.10 - CHRONIC RESPIRATORY FAILURE, UNSP W HYPOXIA OR HYPERCAPNIA (7) Pneumonia Code(s): J18.9 - PNEUMONIA, UNSPECIFIED ORGANISM Qualifiers: Pneumonia type: due to unspecified organism Laterality: left Lung location: lower lobe of lung Qualified Code(s): J18.1 - Lobar pneumonia, unspecified organism (8) S/P AVR Code(s): Z95.2 - PRESENCE OF PROSTHETIC HEART VALVE (9) CAD (coronary artery disease) Code(s): I25.10 - ATHSCL HEART DISEASE OF [place] CORONARY ARTERY W/O ANG PCTRS Qualifiers: [place] vs. transplanted heart: [place] heart Associated angina: without angina (10) COPD (chronic obstructive pulmonary disease) Code(s): J44.9 - CHRONIC OBSTRUCTIVE PULMONARY DISEASE, UNSPECIFIED Qualifiers: COPD type: COPD with acute exacerbation Qualified Code(s): J44.1 - Chronic obstructive pulmonary disease with (acute) exacerbation (11) Chronic kidney disease (CKD) Code(s): N18.9 - CHRONIC KIDNEY DISEASE, UNSPECIFIED Qualifiers: Chronic kidney disease stage: stage 3 (moderate) Qualified Code(s): N18.3 - Chronic kidney disease, stage 3 (moderate) (12) Diabetes mellitus with chronic kidney disease Code(s): E11.22 - TYPE 2 DIABETES MELLITUS W DIABETIC CHRONIC KIDNEY DISEASE; N18.9 - CHRONIC KIDNEY DISEASE, UNSPECIFIED Qualifiers: Diabetes mellitus type: type 2 Chronic kidney disease stage: stage 3 ( moderate) (13) Peripheral vascular disease Code(s): I73.9 - PERIPHERAL VASCULAR DISEASE, UNSPECIFIED (15) Acute on chronic respiratory failure with hypoxemia Code(s): J96.21 - ACUTE AND CHRONIC RESPIRATORY FAILURE WITH HYPOXIA Assessment/Plan 62 y.o. male with PMH of COPD on home O2, CHF, CAD s/p CABG, AICD, bioprosthetic AVR, MR, Atrial Fibrillation, CKD, HTN, DM and PVD presenting with SOB/tachynea, chest discomfort, leukocytosis, lactic acidosis, pulmonary congestion. Recently admitted to the hospital Influenza A Possible HCAP Sepsis Acute on chronic CHF COPD CKD DM CAD s/p CABG s/p AICD s/p AVR MR AFIB plan continue abx rest as per the team complete abx course can stop after completing tomorrow incentive abby rest as per the team
[2018-03-31 13:06] LABS: URINE APPEARANCE CLEAR; URINE BILIRUBIN NEGATIVE (<2.0 mg/dL); URINE COLOR LTYELLOW; URINE GLUCOSE (UA) 1+ (NEGATIVE); URINE KETONE NEGATIVE (NEGATIVE); URINE LEUK ESTERASE NEGATIVE (NEGATIVE); URINE NITRITE NEGATIVE (NEGATIVE); URINE PROTEIN 2+ (NEGATIVE); URINE UROBILINOGEN NEGATIVE mg/dL (0.2-1.0)
[2018-03-31 13:13] LABS: URINE MUCUS RARE
--- NOTE | 2018-03-31 17:16 | PN ---
Physical Exam: SUBJECTIVE: Patient seen and examined at bed side this morning. States he still has SOB. Nervous to go home. Swelling of the legs has decreased. Denies chest pain, palpitation, abdominal pain, nausea or vomiting. No BM today. Bladder habit normal. No acute overnight events. OBJECTIVE: Vital Signs Period Temp Pulse Resp BP Sys/El Pulse Ox Last 24 Hr 97.2 F-97.9 F 121-137 18-18 119-149/69-97 100-100 GENERAL: Middle aged obese male, lying in bed, Awake, alert, and fully oriented , in no acute distress, nasal canula @ 2L. HEAD: Normal with no signs of trauma. EYES:EOM intact, no pallor or icterus. EARS, NOSE, THROAT: Ears normal, moist mucous membranes. NECK:Supple. LUNGS: B/L Breath sounds equal, bibasilar crackles (improved), No accessory muscle use. HEART: Irregularly irregular, rate, normal S1 and S2 with systolic murmur. ABDOMEN: Soft, nontender, no organomegaly. MUSCULOSKELETAL: Normal range of motion at all joints. No bony deformities or tenderness. No CVA tenderness. UPPER EXTREMITIES: 2+ pulses, warm, well-perfused. No cyanosis. No clubbing. No peripheral edema. LOWER EXTREMITIES: 2+ pulses, warm, well-perfused. No calf tenderness. Pitting edema b/l-improved. NEUROLOGICAL: No facial droop. Normal speech. Gait not observed. PSYCHIATRIC: Cooperative. Good eye contact. Appropriate mood and affect. SKIN: Warm, dry, normal turgor, no rashes or lesions noted, normal capillary refill. Laboratory Results - last 24 hr 03/30/18 03/30/18 03/30/18 17:09 20:48 22:20 WBC RBC Hgb Hct MCV MCH MCHC RDW Plt Count MPV Sodium Potassium Chloride Carbon Dioxide Anion Gap BUN Creatinine Creat Clearance w eGFR POC Glucometer 329 408 387 Random Glucose Calcium Troponin I Urine Color Urine Appearance Urine pH Ur Specific [place] Urine Protein Urine Glucose (UA) Urine Ketones Urine Blood Urine Nitrite Urine Bilirubin Urine Urobilinogen Ur Leukocyte Esterase Urine WBC (Auto) Urine RBC (Auto) Urine Mucus 03/31/18 03/31/18 03/31/18 06:08 06:10 06:10 WBC 10.4 H RBC 3.03 L Hgb 10.0 L Hct 28.0 L MCV 92.3 MCH 32.9 MCHC 35.7 RDW 16.1 H Plt Count 168 MPV 8.9 Sodium 134 L Potassium 3.8 Chloride 97 L Carbon Dioxide 28 Anion Gap 9 BUN 55 H Creatinine 2.4 H Creat Clearance w eGFR 27.57 POC Glucometer 277 Random Glucose 263 H Calcium 8.2 L Troponin I 0.05 Urine Color Urine Appearance Urine pH Ur Specific [place] Urine Protein Urine Glucose (UA) Urine Ketones Urine Blood Urine Nitrite Urine Bilirubin Urine Urobilinogen Ur Leukocyte Esterase Urine WBC (Auto) Urine RBC (Auto) Urine Mucus 03/31/18 03/31/18 03/31/18 11:36 11:45 16:34 WBC RBC Hgb Hct MCV MCH MCHC RDW Plt Count MPV Sodium Potassium Chloride Carbon Dioxide Anion Gap BUN Creatinine Creat Clearance w eGFR POC Glucometer 359 347 Random Glucose Calcium Troponin I Urine Color Ltyellow Urine Appearance Clear Urine pH 5.0 Ur Specific [place] 1.012 Urine Protein 2+ H Urine Glucose (UA) 1+ H Urine Ketones Negative Urine Blood Negative Urine Nitrite Negative Urine Bilirubin Negative Urine Urobilinogen Negative Ur Leukocyte Esterase Negative Urine WBC (Auto) <1 Urine RBC (Auto) <1 Urine Mucus Rare Active Medications Generic Name Dose Route Start Last Admin Trade Name Freq PRN Reason Stop Dose Admin Albuterol Sulfate 1 amp 03/28/18 13:56 Ventolin 0.083% Nebulizer Soln - NEB Q4H PRN SHORT OF BREATH/WHEEZING Albuterol/Ipratropium 1 amp 03/28/18 16:00 03/31/18 15:00 Duoneb - NEB 1 amp RQID [facility]JU Administration Aspirin 81 mg 03/29/18 10:00 03/31/18 09:12 Ecotrin - PO 81 mg DAILY [facility]U Administration Atorvastatin Calcium 20 mg 03/28/18 22:00 03/30/18 21:07 Lipitor - PO 20 mg HS [facility]JU Administration Carvedilol 25 mg 03/28/18 22:00 03/31/18 09:12 Coreg - PO 25 mg BID [facility]U Administration Cholecalciferol 2,000 unit 03/29/18 10:00 03/31/18 09:12 Vitamin D3 - PO 2,000 unit DAILY [facility]U Administration Cyclobenzaprine HCl 5 mg 03/28/18 22:00 03/31/18 09:12 Flexeril - PO 5 mg BID [facility]U Administration Docusate Sodium 100 mg 03/28/18 14:00 03/31/18 14:12 Colace - PO 100 mg TID [facility]U Administration Furosemide 40 mg 04/01/18 10:00 Lasix Injection - IVPUSH DAILY [facility] Heparin Sodium (Porcine) 5,000 unit 03/28/18 14:00 03/31/18 14:12 Heparin - SQ 5,000 unit TID [facility]U Administration Piperacillin Sod/Tazobactam 50 mls @ 100 mls/hr 03/28/18 15:00 03/31/18 15:21 Sod 3.375 gm/ Dextrose IVPB 100 mls/hr Q6H-IV [facility]U Administration Protocol Insulin Aspart 1 vial 03/28/18 12:23 03/31/18 16:37 Novolog Vial Sliding Scale - SQ 8 units ACHS [facility]JU Administration Protocol Methylprednisolone Sodium Succinate 40 mg 03/28/18 18:00 03/31/18 09:11 Solu-Medrol - IVPUSH 40 mg Q8H-IV [facility] Administration Metoprolol Tartrate 5 mg 03/31/18 11:02 03/31/18 16:24 Lopressor Injection - IVPUSH 5 mg Q4H PRN Administration TACHYCARDIA Oseltamivir Phosphate 75 mg 03/28/18 22:00 03/31/18 09:12 Tamiflu - PO 04/02/18 21:59 75 mg BID [facility]U Administration Oxycodone HCl 10 mg 03/29/18 09:17 03/31/18 11:35 Roxicodone - PO 10 mg Q6H PRN Administration PAIN LEVEL 6-10 Pantoprazole Sodium 40 mg 03/29/18 10:00 03/31/18 09:12 Protonix - PO 40 mg DAILY [facility] Administration Psyllium Hydrophilic Mucilloid 5.85 gm 03/28/18 22:00 03/31/18 09:11 Metamucil (Sugar-Free) - PO 5.85 gm BID [facility]U Administration Zolpidem Tartrate 10 mg 03/28/18 13:51 03/30/18 22:19 Ambien - PO 10 mg HS PRN Administration INSOMNIA ASSESSMENT/PLAN: Patient is a 62 year old male with significant past medical history of COPD on 3L home O2, pEFHF, CAD, ICD placement, PAD, DM, Atrial fibrillation not on A/c due to risk of fall was brought in to the ED by family members due to shortness of breath. # Acute hypoxic respiratory failure likely secondary to CHF/COPD exacerbation superimposed by Pneumonia and Flu SOB and swelling of legs has improved with Lasix but still has bibasilar crackles. IV Lasix 40mg Daily Continuous cardiac monitoring, no events on the monitor Continue Symbicort, Albuterol PRN On IV Solumedrol 40mg BID Strict I's and O's Daily weight. Appreciate Cardiology consult. # Pneumonia and Flu (Influenza A positive) Leukocytosis of 8-->12.4-->10.4 (could be from steroids) Continue IV Zosyn 3.375 gm Q6H Day 4 and stop after tomorrows dose. Blood cultures negative # Elevated troponins likely from [place] ischemia-down trending. # Prolonged Qtc 582 Avoid any Qtc prolonging agents # CKD creatinine 2 (around his baseline) Avoid Nephrotoxic drugs # Normocytic anemia H/H stable. likely from CKD Iron studies: High ferritin, normal Iron. B12 and Folate high. # Atrial fibrillation CHADsVASc score of 4. Not on a/c due to risk of fall. PT to evaluate. # Hypertension-controlled Continue Carvedilol 25 mg PO BID # FEN Not on IV fluids due to volume overloaded. Electrolytes WNL Diabetic diet/fat controlled # Prophylaxis For DVT: On Heparin 5000 IU sq TID FoR GI: Not indicated # Code status: Full Code # Dispo:Admit to tele inpatient. Duration of stay unknown. Illness, Investigation and Plan of care explained to the patient. He verbalized understanding. Case discussed with Dr. Morales. Problem List - Problems (1) Acute exacerbation of CHF (congestive heart failure) Code(s): I50.9 - HEART FAILURE, UNSPECIFIED Qualifiers: (2) Influenza A Code(s): J10.1 - FLU DUE TO OTH IDENT INFLUENZA VIRUS W OTH RESP MANIFEST (3) Neck pain on right side Code(s): M54.2 - CERVICALGIA (4) Respiratory distress Code(s): R06.00 - DYSPNEA, UNSPECIFIED (5) COPD (chronic obstructive pulmonary disease) Code(s): J44.9 - CHRONIC OBSTRUCTIVE PULMONARY DISEASE, UNSPECIFIED (6) ERROL (acute kidney injury) Code(s): N17.9 - ACUTE KIDNEY FAILURE, UNSPECIFIED (7) Afib Code(s): I48.91 - UNSPECIFIED ATRIAL FIBRILLATION Qualifiers: Atrial fibrillation type: chronic Qualified Code(s): I48.2 - Chronic atrial fibrillation Visit type - Emergency Visit Emergency Visit: Yes ED Registration Date: 03/28/18 Care time: The patient presented to the Emergency Department on the above date and was hospitalized for further evaluation of their emergent condition. - New Patient This patient is new to me today: No - Critical Care Critical Care patient: No - Discharge Referral Referred to [facility] No
--- NOTE | 2018-03-31 17:42 | PN ---
Teaching Attending Note Name of Resident: Paula Yeung ATTENDING PHYSICIAN STATEMENT I saw and evaluated the patient. I reviewed the resident's note and discussed the case with the resident. I agree with the resident's findings and plan as documented. SUBJECTIVE: Mr Owen says he is feeling better but still feels short of breath. No cp or n/v OBJECTIVE: Last Vital Signs Temp Pulse Resp BP Pulse Ox 36.2 C L 137 H 18 127/90 100 03/31/18 14:21 03/31/18 16:24 03/31/18 14:21 03/31/18 14:21 03/31/18 10:00 Gen: nad Pulm: bilateral ronchi w/o wheezing or rales CV: irreg irreg, rate controlled, LALO noted Abd: +bs, s/nt/nd Ext: 1+ BLE edema CBC, BMP 03/31/18 06:10 03/31/18 06:10 Problem List - Problems (1) Acute on chronic respiratory failure with hypoxemia Assessment/Plan: -continue oxygen support -treat underlying conditions as detailed below -improving Code(s): J96.21 - ACUTE AND CHRONIC RESPIRATORY FAILURE WITH HYPOXIA (2) Influenza A Assessment/Plan: -continue tamiflu Code(s): J10.1 - FLU DUE TO OTH IDENT INFLUENZA VIRUS W OTH RESP MANIFEST (3) Pneumonia Assessment/Plan: -concern for HCAP -continue zosyn -ID following Code(s): J18.9 - PNEUMONIA, UNSPECIFIED ORGANISM Qualifiers: Pneumonia type: due to unspecified organism Laterality: left Lung location: lower lobe of lung Qualified Code(s): J18.1 - Lobar pneumonia, unspecified organism (4) Acute exacerbation of CHF (congestive heart failure) Assessment/Plan: -continue IV lasix -case d/w cardiology -not on ACEI/ARBs secondary to hyperkalemia Code(s): I50.9 - HEART FAILURE, UNSPECIFIED Qualifiers: Heart failure type: combined systolic and diastolic Qualified Code(s): I50.43 - Acute on chronic combined systolic (congestive) and diastolic ( congestive) heart failure (5) COPD exacerbation Assessment/Plan: -continue solumedrol and bronchodilators Code(s): J44.1 - CHRONIC OBSTRUCTIVE PULMONARY DISEASE W (ACUTE) EXACERBATION (6) Afib Assessment/Plan: -continue coreg -rate controlled -no AC secondary to falls Code(s): I48.91 - UNSPECIFIED ATRIAL FIBRILLATION Qualifiers: Atrial fibrillation type: chronic Qualified Code(s): I48.2 - Chronic atrial fibrillation (7) Acute on chronic renal insufficiency Assessment/Plan: -monitor Code(s): N28.9 - DISORDER OF KIDNEY AND URETER, UNSPECIFIED; N18.9 - CHRONIC KIDNEY DISEASE, UNSPECIFIED (8) Coronary artery disease Assessment/Plan: -cardiology following -continue home regimen Code(s): I25.10 - ATHSCL HEART DISEASE OF [place] CORONARY ARTERY W/O ANG PCTRS Qualifiers: Coronary Disease-Associated Artery/Lesion type: bypass graft, other Associated angina: with other forms of angina Qualified Code(s): I25.798 - Atherosclerosis of other coronary artery bypass graft(s) with other forms of angina pectoris (9) Diabetes mellitus with insulin therapy Assessment/Plan: -diabetic diet and SSI -elevated secondary to steroids Code(s): E11.9 - TYPE 2 DIABETES MELLITUS WITHOUT COMPLICATIONS; Z79.4 - CNC SPECIALIST (CURRENT) USE OF INSULIN (10) HTN (hypertension) Assessment/Plan: -controlled Code(s): I10 - ESSENTIAL (PRIMARY) HYPERTENSION Qualifiers: Hypertension type: essential hypertension Qualified Code(s): I10 - Essential (primary) hypertension
[2018-03-31] MEDS: ZOLPIDEM TARTRATE 5 MG TABLET PO PRN (22:53)
[2018-03-31] MEDS: ATORVASTATIN CA 20 MG TABLET (FP) PO SCH (22:53)
[2018-04-01] MEDS: oxyCODONE HCL 5 MG TABLET PO PRN ×3 (00:45→14:08)
[2018-04-01] MEDS ORDERED: PIPERACILLIN/TAZOBACTAM 3.375 GM VIAL IVPB ONE ×4 (03:09→21:10)
[2018-04-01] MEDS ORDERED: DEXTROSE 5%-WATER - 50 ML IVPB ONE ×4 (03:09→21:11)
[2018-04-01] MEDS: PIPERACILLIN/TAZOB 3.375 GM 3.375 GM in DEXTROSE 5%-WATER - 50 ML IVPB SCH ×4 (03:10→21:38)
[2018-04-01] MEDS: DOCUSATE SODIUM 100 MG CAPSULE (FP) PO SCH ×3 (06:05→21:37)
[2018-04-01] MEDS: HEPARIN NA (PORCINE) 5,000 UNITS/ML 1ML VIAL SQ SCH ×3 (06:06→21:35)
[2018-04-01] MEDS: INSULIN SLIDING SCALE (NOVOLOG) 1 VIAL SQ SCH ×4 (06:07→21:37)
[2018-04-01] MEDS: ALBUTEROL SO4 2.5/IPRATROPIUM 0.5 INH SOL 3 ML VIAL.NEB. NEB SCH ×4 (07:45→20:05)
[2018-04-01 07:46] LABS: HEMATOCRIT 33.2 % (35.4-49); HEMOGLOBIN 10.6 GM/dL (11.7-16.9); MCH 30.3 pg (25.7-33.7); MEAN CELL VOLUME 94.8 fl (80-96); MEAN PLT VOLUME 8.5 fl (7.5-11.1); PLATELET COUNT 167 K/MM3 (134-434); RDW 15.9 % (11.9-15.9); WHITE BLOOD COUNT 13.3 K/mm3 (4.0-10.0)
[2018-04-01 08:47] LABS: ANION GAP 12 MMOL/L (8-16); BLOOD UREA NITROGEN 65 mg/dL (7-18); CALCIUM 8.4 mg/dL (8.5-10.1); CHLORIDE 95 mmol/L (98-107); CO2 27 mmol/L (21-32); CREATININE 2.4 mg/dL (0.55-1.3); GLUCOSE,RANDOM 246 mg/dL (74-106); POTASSIUM 4.4 mmol/L (3.5-5.1); SODIUM 133 mmol/L (136-145)
[2018-04-01] MEDS ORDERED: FUROSEMIDE 40 MG/4 ML INJECTABLE VIAL IVPUSH SCH (10:00)
[2018-04-01] MEDS: methylPREDNISolone NA SUCC 40 MG/1 ML VIAL IVPUSH SCH (10:06)
[2018-04-01] MEDS: CYCLOBENZAPRINE HCL 10 MG TABLET (FP) PO SCH ×2 (10:06→21:36)
[2018-04-01] MEDS: CHOLECALCIFEROL (VITAMIN D3) 1,000 UNIT TABLET (FP) PO SCH (10:07)
[2018-04-01] MEDS: PSYLLIUM 5.85 GM PACKET PO SCH ×2 (10:07→21:37)
[2018-04-01] MEDS: ASPIRIN COATED 81 MG TABLET.EC PO SCH (10:07)
[2018-04-01] MEDS: PANTOPRAZOLE 40 MG TABLET (FP) PO SCH (10:07)
[2018-04-01] MEDS: CARVEDILOL 25 MG TABLET (FP) PO SCH ×2 (10:07→21:36)
[2018-04-01] MEDS: OSELTAMIVIR PHOSPHATE 75 MG CAPSULE PO SCH ×2 (10:08→22:30)
--- NOTE | 2018-04-01 10:53 | PN ---
Progress Note (short form) - Note Progress Note: cc: sob s: sob mild, feels malaise today. no chest pain, palps, dizziness, lightheadedness Current Medications Generic Name Dose Route Start Last Admin Trade Name Freq PRN Reason Stop Dose Admin Albuterol Sulfate 1 amp 03/28/18 13:56 Ventolin 0.083% Nebulizer Soln - NEB Q4H PRN SHORT OF BREATH/WHEEZING Albuterol/Ipratropium 1 amp 03/28/18 16:00 04/01/18 07:45 Duoneb - NEB 1 amp RQID MANJU Administration Aspirin 81 mg 03/29/18 10:00 04/01/18 10:07 Ecotrin - PO 81 mg DAILY MANJU Administration Atorvastatin Calcium 20 mg 03/28/18 22:00 03/31/18 22:53 Lipitor - PO 20 mg HS MANJU Administration Carvedilol 25 mg 03/28/18 22:00 04/01/18 10:07 Coreg - PO 25 mg BID MANJU Administration Cholecalciferol 2,000 unit 03/29/18 10:00 04/01/18 10:07 Vitamin D3 - PO 2,000 unit DAILY MANJU Administration Cyclobenzaprine HCl 5 mg 03/28/18 22:00 04/01/18 10:06 Flexeril - PO 5 mg BID MANJU Administration Docusate Sodium 100 mg 03/28/18 14:00 04/01/18 06:05 Colace - PO 100 mg TID MANJU Administration Furosemide 40 mg 04/01/18 10:00 04/01/18 10:06 Lasix Injection - IVPUSH 40 mg DAILY MANJU Administration Heparin Sodium (Porcine) 5,000 unit 03/28/18 14:00 04/01/18 06:06 Heparin - SQ 5,000 unit TID MANJU Administration Piperacillin Sod/Tazobactam 50 mls @ 100 mls/hr 03/28/18 15:00 04/01/18 10:06 Sod 3.375 gm/ Dextrose IVPB 100 mls/hr Q6H-IV MANJU Administration Protocol Insulin Aspart 1 vial 03/28/18 12:23 04/01/18 06:07 Novolog Vial Sliding Scale - SQ 6 units ACHS MANJU Administration Protocol Methylprednisolone Sodium Succinate 40 mg 03/31/18 22:00 04/01/18 10:06 Solu-Medrol - IVPUSH 40 mg BID MANJU Administration Metoprolol Tartrate 5 mg 03/31/18 11:02 03/31/18 16:24 Lopressor Injection - IVPUSH 5 mg Q4H PRN Administration TACHYCARDIA Oseltamivir Phosphate 75 mg 03/28/18 22:00 04/01/18 10:08 Tamiflu - PO 04/02/18 21:59 75 mg BID MANJU Administration Oxycodone HCl 10 mg 03/29/18 09:17 04/01/18 06:45 Roxicodone - PO 10 mg Q6H PRN Administration PAIN LEVEL 6-10 Pantoprazole Sodium 40 mg 03/29/18 10:00 04/01/18 10:07 Protonix - PO 40 mg DAILY MANJU Administration Psyllium Hydrophilic Mucilloid 5.85 gm 03/28/18 22:00 04/01/18 10:07 Metamucil (Sugar-Free) - PO 5.85 gm BID MANJU Administration Zolpidem Tartrate 10 mg 03/28/18 13:51 03/31/18 22:53 Ambien - PO 10 mg HS PRN Administration INSOMNIA pe: Vital Signs Period Temp Pulse Resp BP Sys/El Pulse Ox Last 24 Hr 97.2 F-98.3 F 114-137 18-20 126-163/69-101 100 nad, +JVD rrr s1s2 no mrg scattered rhonchi, nl eff aaox3 no le e/c/c abd nt nd pos bs no jaundice diaphoresis +dp pt no carotid bruits ECG: AFL, intermittent V-S/V-P, + ST-Ts unchanged vs prior CXR: chf and pna echo 06/2016: sev dec lvef, global hk, rv tds, trinity, mod-sev mr, mod tr, rvsp 50- 60 echo 06/2015: mild lve, mod-sev dec lvef, mod lae, nl rv size, mild dec rv fcn, mild-mod mr, mild tr, nl avr fcn, rvsp 30-40 mibi 06/2016 (pers): non-diagnostic STs; large area inferior/inferolateral/ lateral scar; no ischemia; severe LV cavity dilation; global HK with akinesis of inferior/inferolat/lateral allan; EF 16% mibi 09/2014: large inf scar, mod anteroapical ischemia, lvef 25% tele: AFL HR 120s Vs/COLLAR CLOSER LOCKSTITCH. no VT a/p: 62 m hx copd, cabgx3 2012, bio avr 2012, pad s/p b/l sfa occlusions, syst chf s/p medtr[employer] icd, htn, hld, a-tach, here with back pain, sob. pna, flu: -cont abx per ID acute on chronic systolic CHF exacerbation: -past dry wt here 187 lbs -here with mild chf exacerbation likely worsened by flu/pna -03/30 was on lasix 80 po qd at home, weight stable, stable Cr, feels the same - increased lasix to40 mg IV BID -03/31 Cr rising, change to lasix 40 mg IV daily -04/01: cont same iv lasix -cont carvedilol. not on ACEI due to h/o hyperkalemia atrial flutter: -pt in AFL on ekg -CHADS VASC 4, warrants AC for cardioembolic prophylaxis. pt is at prohibitive risks of falls/head trauma at present (very frequent falls recently including head trauma, suspected LE weakness with mechanical falls etiology) will defer AC for now. Prior plan was for pt to f/u in office to discuss fall risk/ac further but he did not come to appt (often misses appts). 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 - cont carvedilol, episodes of RVR likely more frequent in setting of PNA, flu - metoprolol IV PRN for tachycardia cad/hx of CABG 2012 -no recent angina/ischemia -trop chronically in intermediate range, no change in current values, trend is flat, ck nl, not c/w acs -cont prior cad med regimen: asa, statin, bb, ccb bio avr: -nl fcn on echo 06/20 mitral regurgitation: -likely functional MR, mild-mod on echo 06/19, then "mod-severe" when here 06/20 with suspected acute chf and pulm pressures up (though at risk for overestimation of MR severity on that echo report) -valve morphology not described (tethered leaflets?) -no murmur on exam -reassess MR severity on echo as outpt CKD: -baseline creatinine 2-2.5; -renal fxn stable here pad: -stable, no claudication, cont current cardiac meds s/p icd: -no shocks on check earlier this month -routine outpt monitoring htn: -bp stable -cont home meds
--- NOTE | 2018-04-01 12:07 | PN ---
Progress Note, Physician History of Present Illness: still not feeling well sob - Current Medication List Current Medications: Active Medications Albuterol Sulfate (Ventolin 0.083% Nebulizer Soln -) 1 amp NEB Q4H PRN PRN Reason: SHORT OF BREATH/WHEEZING Albuterol/Ipratropium (Duoneb -) 1 amp NEB RQID [facility] Last Admin: 04/01/18 11:54 Dose: Not Given Aspirin (Ecotrin -) 81 mg PO DAILY [facility] Last Admin: 04/01/18 10:07 Dose: 81 mg Atorvastatin Calcium (Lipitor -) 20 mg PO HS [facility] Last Admin: 03/31/18 22:53 Dose: 20 mg Carvedilol (Coreg -) 25 mg PO BID [facility] Last Admin: 04/01/18 10:07 Dose: 25 mg Cholecalciferol (Vitamin D3 -) 2,000 unit PO DAILY [facility] Last Admin: 04/01/18 10:07 Dose: 2,000 unit Cyclobenzaprine HCl (Flexeril -) 5 mg PO BID [facility] Last Admin: 04/01/18 10:06 Dose: 5 mg Docusate Sodium (Colace -) 100 mg PO TID [facility] Last Admin: 04/01/18 06:05 Dose: 100 mg Furosemide (Lasix Injection -) 40 mg IVPUSH DAILY [facility] Last Admin: 04/01/18 10:06 Dose: 40 mg Heparin Sodium (Porcine) (Heparin -) 5,000 unit SQ TID [facility] Last Admin: 04/01/18 06:06 Dose: 5,000 unit Piperacillin Sod/Tazobactam (Sod 3.375 gm/ Dextrose) 50 mls @ 100 mls/hr IVPB Q6H-IV [facility]; Protocol Last Admin: 04/01/18 10:06 Dose: 100 mls/hr Insulin Aspart (Novolog Vial Sliding Scale -) 1 vial SQ ACHS [facility]; Protocol Last Admin: 04/01/18 11:54 Dose: 2 units Methylprednisolone Sodium Succinate (Solu-Medrol -) 40 mg IVPUSH BID [facility] Last Admin: 04/01/18 10:06 Dose: 40 mg Metoprolol Tartrate (Lopressor Injection -) 5 mg IVPUSH Q4H PRN PRN Reason: TACHYCARDIA Last Admin: 03/31/18 16:24 Dose: 5 mg Oseltamivir Phosphate (Tamiflu -) 75 mg PO BID [facility] Stop: 04/02/18 21:59 Last Admin: 04/01/18 10:08 Dose: 75 mg Oxycodone HCl (Roxicodone -) 10 mg PO Q6H PRN PRN Reason: PAIN LEVEL 6-10 Last Admin: 04/01/18 06:45 Dose: 10 mg Pantoprazole Sodium (Protonix -) 40 mg PO DAILY [facility] Last Admin: 04/01/18 10:07 Dose: 40 mg Psyllium Hydrophilic Mucilloid (Metamucil (Sugar-Free) -) 5.85 gm PO BID [facility] Last Admin: 04/01/18 10:07 Dose: 5.85 gm Zolpidem Tartrate (Ambien -) 10 mg PO HS PRN PRN Reason: INSOMNIA Last Admin: 03/31/18 22:53 Dose: 10 mg - Objective Vital Signs: Vital Signs Temperature 98.3 F 04/01/18 10:11 Pulse Rate 130 H 04/01/18 10:11 Respiratory Rate 18 04/01/18 10:11 Blood Pressure 137/101 H 04/01/18 10:11 O2 Sat by Pulse Oximetry (%) 100 03/31/18 21:00 Constitutional: Yes: Calm, Mild Distress Cardiovascular: Yes: S1, S2 Gastrointestinal: Yes: Normal Bowel Sounds, Soft Musculoskeletal: Yes: WNL Extremities: Yes: WNL Neurological: Yes: Alert, Oriented Psychiatric: Yes: Alert, Oriented Labs: CBC, BMP 04/01/18 07:00 04/01/18 07:00 INR, PTT INR 1.36 (0.83-1.09) H 03/28/18 07:15 - ....Imaging Cat Scan: Report Reviewed, Image Reviewed Assessment/Plan Problem List - Problems (1) Acute exacerbation of CHF (congestive heart failure) Code(s): I50.9 - HEART FAILURE, UNSPECIFIED Qualifiers: (2) Influenza A Code(s): J10.1 - FLU DUE TO OTH IDENT INFLUENZA VIRUS W OTH RESP MANIFEST (3) Respiratory distress Code(s): R06.00 - DYSPNEA, UNSPECIFIED (4) COPD (chronic obstructive pulmonary disease) Code(s): J44.9 - CHRONIC OBSTRUCTIVE PULMONARY DISEASE, UNSPECIFIED (5) Afib Code(s): I48.91 - UNSPECIFIED ATRIAL FIBRILLATION Qualifiers: Atrial fibrillation type: chronic Qualified Code(s): I48.2 - Chronic atrial fibrillation (6) Chronic respiratory failure Code(s): J96.10 - CHRONIC RESPIRATORY FAILURE, UNSP W HYPOXIA OR HYPERCAPNIA (7) Pneumonia Code(s): J18.9 - PNEUMONIA, UNSPECIFIED ORGANISM Qualifiers: Pneumonia type: due to unspecified organism Laterality: left Lung location: lower lobe of lung Qualified Code(s): J18.1 - Lobar pneumonia, unspecified organism (8) S/P AVR Code(s): Z95.2 - PRESENCE OF PROSTHETIC HEART VALVE (9) CAD (coronary artery disease) Code(s): I25.10 - ATHSCL HEART DISEASE OF [place] CORONARY ARTERY W/O ANG PCTRS Qualifiers: [place] vs. transplanted heart: [place] heart Associated angina: without angina (10) COPD (chronic obstructive pulmonary disease) Code(s): J44.9 - CHRONIC OBSTRUCTIVE PULMONARY DISEASE, UNSPECIFIED Qualifiers: COPD type: COPD with acute exacerbation Qualified Code(s): J44.1 - Chronic obstructive pulmonary disease with (acute) exacerbation (11) Chronic kidney disease (CKD) Code(s): N18.9 - CHRONIC KIDNEY DISEASE, UNSPECIFIED Qualifiers: Chronic kidney disease stage: stage 3 (moderate) Qualified Code(s): N18.3 - Chronic kidney disease, stage 3 (moderate) (12) Diabetes mellitus with chronic kidney disease Code(s): E11.22 - TYPE 2 DIABETES MELLITUS W DIABETIC CHRONIC KIDNEY DISEASE; N18.9 - CHRONIC KIDNEY DISEASE, UNSPECIFIED Qualifiers: Diabetes mellitus type: type 2 Chronic kidney disease stage: stage 3 ( moderate) (13) Peripheral vascular disease Code(s): I73.9 - PERIPHERAL VASCULAR DISEASE, UNSPECIFIED (15) Acute on chronic respiratory failure with hypoxemia Code(s): J96.21 - ACUTE AND CHRONIC RESPIRATORY FAILURE WITH HYPOXIA Assessment/Plan 62 y.o. male with PMH of COPD on home O2, CHF, CAD s/p CABG, AICD, bioprosthetic AVR, MR, Atrial Fibrillation, CKD, HTN, DM and PVD presenting with SOB/tachynea, chest discomfort, leukocytosis, lactic acidosis, pulmonary congestion. Recently admitted to the hospital Influenza A Possible HCAP Sepsis Acute on chronic CHF COPD CKD DM CAD s/p CABG s/p AICD s/p AVR MR AFIB plan continue abx rest as per the team complete abx course can stop after completing today incentive abby rest as per the team
--- NOTE | 2018-04-01 14:42 | PN ---
Teaching Attending Note Name of Resident: Paula Yeung ATTENDING PHYSICIAN STATEMENT I saw and evaluated the patient. I reviewed the resident's note and discussed the case with the resident. I agree with the resident's findings and plan as documented. SUBJECTIVE: Mr Owen mainly complain of weakness. Says he is short of breath but at his baseline. No cp or n/v. OBJECTIVE: Last Vital Signs Temp Pulse Resp BP Pulse Ox 36.3 C L 130 H 18 136/114 H 100 04/01/18 14:05 04/01/18 14:05 04/01/18 14:05 04/01/18 14:05 03/31/18 21:00 Gen: nad Pulm: diffuse ronchi bilaterally, but improved from yesterday CV: irreg irreg, tachycardic. no m/r/g Abd: +bs, s/nt/nd Ext: no c/c/e CBC, BMP 04/01/18 07:00 04/01/18 07:00 (1) Acute on chronic respiratory failure with hypoxemia Assessment/Plan: -continue oxygen support -treat underlying conditions as detailed below -continues to improve Code(s): J96.21 - ACUTE AND CHRONIC RESPIRATORY FAILURE WITH HYPOXIA (2) Influenza A Assessment/Plan: -continue tamiflu -day 55, last dose this pm Code(s): J10.1 - FLU DUE TO OTH IDENT INFLUENZA VIRUS W OTH RESP MANIFEST (3) Pneumonia Assessment/Plan: -appreciate ID assistance -last day of antibiotics Code(s): J18.9 - PNEUMONIA, UNSPECIFIED ORGANISM Qualifiers: Pneumonia type: due to unspecified organism Laterality: left Lung location: lower lobe of lung Qualified Code(s): J18.1 - Lobar pneumonia, unspecified organism (4) Acute exacerbation of CHF (congestive heart failure) Assessment/Plan: -continue IV lasix -case d/w cardiology -not on ACEI/ARBs secondary to hyperkalemia Code(s): I50.9 - HEART FAILURE, UNSPECIFIED Qualifiers: Heart failure type: combined systolic and diastolic Qualified Code(s): I50.43 - Acute on chronic combined systolic (congestive) and diastolic ( congestive) heart failure (5) COPD exacerbation Assessment/Plan: -continue solumedrol and bronchodilators -solumedrol decreased today -continue to decrease, plan to change to prednisone tomorrow if can tolerate Code(s): J44.1 - CHRONIC OBSTRUCTIVE PULMONARY DISEASE W (ACUTE) EXACERBATION (6) Afib Assessment/Plan: -continue coreg -tachycardic today -continue coreg -prn IV metoprolol -PT consult to evaluate fall risk Code(s): I48.91 - UNSPECIFIED ATRIAL FIBRILLATION Qualifiers: Atrial fibrillation type: chronic Qualified Code(s): I48.2 - Chronic atrial fibrillation (7) Acute on chronic renal insufficiency Assessment/Plan: -monitor Code(s): N28.9 - DISORDER OF KIDNEY AND URETER, UNSPECIFIED; N18.9 - CHRONIC KIDNEY DISEASE, UNSPECIFIED (8) Coronary artery disease Assessment/Plan: -cardiology following -continue home regimen Code(s): I25.10 - ATHSCL HEART DISEASE OF [place] CORONARY ARTERY W/O ANG PCTRS Qualifiers: Coronary Disease-Associated Artery/Lesion type: bypass graft, other Associated angina: with other forms of angina Qualified Code(s): I25.798 - Atherosclerosis of other coronary artery bypass graft(s) with other forms of angina pectoris (9) Diabetes mellitus with insulin therapy Assessment/Plan: -diabetic diet and SSI -elevated secondary to steroids Code(s): E11.9 - TYPE 2 DIABETES MELLITUS WITHOUT COMPLICATIONS; Z79.4 - HALFWAY (CURRENT) USE OF INSULIN (10) HTN (hypertension) Assessment/Plan: -controlled Code(s): I10 - ESSENTIAL (PRIMARY) HYPERTENSION Qualifiers: Hypertension type: essential hypertension Qualified Code(s): I10 - Essential (primary) hypertension Problem List - Problems (1) Acute on chronic respiratory failure with hypoxemia Code(s): J96.21 - ACUTE AND CHRONIC RESPIRATORY FAILURE WITH HYPOXIA (2) Influenza A Code(s): J10.1 - FLU DUE TO OTH IDENT INFLUENZA VIRUS W OTH RESP MANIFEST (3) Pneumonia Code(s): J18.9 - PNEUMONIA, UNSPECIFIED ORGANISM Qualifiers: Pneumonia type: due to unspecified organism Laterality: left Lung location: lower lobe of lung Qualified Code(s): J18.1 - Lobar pneumonia, unspecified organism (4) Acute exacerbation of CHF (congestive heart failure) Code(s): I50.9 - HEART FAILURE, UNSPECIFIED Qualifiers: Heart failure type: combined systolic and diastolic Qualified Code(s): I50.43 - Acute on chronic combined systolic (congestive) and diastolic ( congestive) heart failure (5) COPD exacerbation Code(s): J44.1 - CHRONIC OBSTRUCTIVE PULMONARY DISEASE W (ACUTE) EXACERBATION (6) Afib Code(s): I48.91 - UNSPECIFIED ATRIAL FIBRILLATION Qualifiers: Atrial fibrillation type: chronic Qualified Code(s): I48.2 - Chronic atrial fibrillation (7) Acute on chronic renal insufficiency Code(s): N28.9 - DISORDER OF KIDNEY AND URETER, UNSPECIFIED; N18.9 - CHRONIC KIDNEY DISEASE, UNSPECIFIED (8) Coronary artery disease Code(s): I25.10 - ATHSCL HEART DISEASE OF [place] CORONARY ARTERY W/O ANG PCTRS Qualifiers: Coronary Disease-Associated Artery/Lesion type: bypass graft, other Associated angina: with other forms of angina Qualified Code(s): I25.798 - Atherosclerosis of other coronary artery bypass graft(s) with other forms of angina pectoris (9) Diabetes mellitus with insulin therapy Code(s): E11.9 - TYPE 2 DIABETES MELLITUS WITHOUT COMPLICATIONS; Z79.4 - 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
--- NOTE | 2018-04-01 14:56 | PN ---
Physical Exam: SUBJECTIVE: Patient seen and examined at bed side this morning. States he feels weak, tired, low energy, sob still persists. No acute overnight events. No BM this morning. OBJECTIVE: Vital Signs Period Temp Pulse Resp BP Sys/El Pulse Ox Last 24 Hr 97.4 F-98.3 F 114-137 18-20 137-163/92-101 100 GENERAL: Middle aged obese male, lying in bed, Awake, alert, and fully oriented , in no acute distress, nasal canula @ 2L. HEAD: Normal with no signs of trauma. EYES:EOM intact, no pallor or icterus. EARS, NOSE, THROAT: Ears normal, moist mucous membranes. NECK:Supple. LUNGS: B/L Breath sounds equal, bibasilar crackles , No accessory muscle use. HEART: Irregularly irregular, rate, normal S1 and S2 with systolic murmur. ABDOMEN: Soft, nontender, no organomegaly. MUSCULOSKELETAL: Normal range of motion at all joints. No bony deformities or tenderness. No CVA tenderness. UPPER EXTREMITIES: 2+ pulses, warm, well-perfused. No cyanosis. No clubbing. No peripheral edema. LOWER EXTREMITIES: 2+ pulses, warm, well-perfused. No calf tenderness. Pitting edema b/l-improved. NEUROLOGICAL: No facial droop. Normal speech. Gait not observed. PSYCHIATRIC: Cooperative. Good eye contact. Appropriate mood and affect. SKIN: Warm, dry, normal turgor, no rashes or lesions noted, normal capillary refill. Laboratory Results - last 24 hr 03/31/18 03/31/18 04/01/18 16:34 22:31 05:39 WBC RBC Hgb Hct MCV MCH MCHC RDW Plt Count MPV Sodium Potassium Chloride Carbon Dioxide Anion Gap BUN Creatinine Creat Clearance w eGFR POC Glucometer 347 332 254 Random Glucose Calcium 04/01/18 04/01/18 04/01/18 07:00 07:00 11:51 WBC 13.3 H RBC 3.50 L Hgb 10.6 L Hct 33.2 L D MCV 94.8 MCH 30.3 MCHC 32.0 RDW 15.9 Plt Count 167 MPV 8.5 Sodium 133 L Potassium 4.4 Chloride 95 L Carbon Dioxide 27 Anion Gap 12 BUN 65 H Creatinine 2.4 H Creat Clearance w eGFR 27.57 POC Glucometer 280 Random Glucose 246 H Calcium 8.4 L Active Medications Generic Name Dose Route Start Last Admin Trade Name Frechelita PRN Reason Stop Dose Admin Albuterol Sulfate 1 amp 03/28/18 13:56 Ventolin 0.083% Nebulizer Soln - NEB Q4H PRN SHORT OF BREATH/WHEEZING Albuterol/Ipratropium 1 amp 03/28/18 16:00 04/01/18 11:54 Duoneb - NEB Not Given RQID MANJU Aspirin 81 mg 03/29/18 10:00 04/01/18 10:07 Ecotrin - PO 81 mg DAILY MANJU Administration Atorvastatin Calcium 20 mg 03/28/18 22:00 03/31/18 22:53 Lipitor - PO 20 mg HS MANJU Administration Carvedilol 25 mg 03/28/18 22:00 04/01/18 10:07 Coreg - PO 25 mg BID MANJU Administration Cholecalciferol 2,000 unit 03/29/18 10:00 04/01/18 10:07 Vitamin D3 - PO 2,000 unit DAILY MANJU Administration Cyclobenzaprine HCl 5 mg 03/28/18 22:00 04/01/18 10:06 Flexeril - PO 5 mg BID MANJU Administration Docusate Sodium 100 mg 03/28/18 14:00 04/01/18 14:08 Colace - PO 100 mg TID MANJU Administration Furosemide 40 mg 04/01/18 10:00 04/01/18 10:06 Lasix Injection - IVPUSH 40 mg DAILY MANJU Administration Heparin Sodium (Porcine) 5,000 unit 03/28/18 14:00 04/01/18 14:07 Heparin - SQ 5,000 unit TID MANJU Administration Piperacillin Sod/Tazobactam 50 mls @ 100 mls/hr 03/28/18 15:00 04/01/18 14:07 Sod 3.375 gm/ Dextrose IVPB 100 mls/hr Q6H-IV MANJU Administration Protocol Insulin Aspart 1 vial 03/28/18 12:23 04/01/18 11:54 Novolog Vial Sliding Scale - SQ 2 units ACHS MANJU Administration Protocol Methylprednisolone Sodium Succinate 40 mg 03/31/18 22:00 04/01/18 10:06 Solu-Medrol - IVPUSH 40 mg BID MANJU Administration Metoprolol Tartrate 5 mg 03/31/18 11:02 03/31/18 16:24 Lopressor Injection - IVPUSH 5 mg Q4H PRN Administration TACHYCARDIA Oseltamivir Phosphate 75 mg 03/28/18 22:00 04/01/18 10:08 Tamiflu - PO 04/02/18 21:59 75 mg BID MANJU Administration Oxycodone HCl 10 mg 03/29/18 09:17 04/01/18 14:08 Roxicodone - PO 10 mg Q6H PRN Administration PAIN LEVEL 6-10 Pantoprazole Sodium 40 mg 03/29/18 10:00 04/01/18 10:07 Protonix - PO 40 mg DAILY MANJU Administration Psyllium Hydrophilic Mucilloid 5.85 gm 03/28/18 22:00 04/01/18 10:07 Metamucil (Sugar-Free) - PO 5.85 gm BID MANJU Administration Zolpidem Tartrate 10 mg 03/28/18 13:51 03/31/18 22:53 Ambien - PO 10 mg HS PRN Administration INSOMNIA ASSESSMENT/PLAN: Patient is a 62 year old male with significant past medical history of COPD on 3L home O2, pEFHF, CAD, ICD placement, PAD, DM, Atrial fibrillation not on A/c due to risk of fall was brought in to the ED by family members due to shortness of breath. # Acute hypoxic respiratory failure likely secondary to CHF/COPD exacerbation superimposed by Pneumonia and Flu Continue IV Lasix 40mg Daily (was on IV Lasix BID, creatinine rising, so decreased to daily, leg swelling improving) Continue Symbicort, Albuterol PRN Decreased Solumedrol to 40mg Daily. # Pneumonia and Flu (Influenza A positive) Tamiflu course will finish today. Continue IV Zosyn 3.375 gm Q6H Day 5 and stop tomorrows Blood cultures negative # Elevated troponins likely from Demand ischemia-down trending. # Prolonged Qtc 582 Avoid any Qtc prolonging agents # CKD creatinine 2 (around his baseline) Avoid Nephrotoxic drugs # Normocytic anemia H/H stable. likely from CKD Iron studies: High ferritin, normal Iron. B12 and Folate high. # Atrial fibrillation CHADsVASc score of 4. Not on a/c due to risk of fall. PT to evaluate. # Hypertension-controlled Continue Carvedilol 25 mg PO BID IV Metoprolol 5mg Q4H PRN for tachycardia. # FEN Not on IV fluids due to volume overloaded. Electrolytes WNL Diabetic diet/fat controlled # Prophylaxis For DVT: On Heparin 5000 IU sq TID FoR GI: Not indicated # Code status: Full Code # Dispo:Admit to tele inpatient. Duration of stay unknown. Illness, Investigation and Plan of care explained to the patient. He verbalized understanding. Case discussed with Dr. Morales. Problem List - Problems (1) Acute exacerbation of CHF (congestive heart failure) Code(s): I50.9 - HEART FAILURE, UNSPECIFIED Qualifiers: Heart failure type: combined systolic and diastolic Qualified Code(s): I50.43 - Acute on chronic combined systolic (congestive) and diastolic ( congestive) heart failure (2) Influenza A Code(s): J10.1 - FLU DUE TO OTH IDENT INFLUENZA VIRUS W OTH RESP MANIFEST (3) Neck pain on right side Code(s): M54.2 - CERVICALGIA (4) Respiratory distress Code(s): R06.00 - DYSPNEA, UNSPECIFIED (5) COPD (chronic obstructive pulmonary disease) Code(s): J44.9 - CHRONIC OBSTRUCTIVE PULMONARY DISEASE, UNSPECIFIED (6) ERROL (acute kidney injury) Code(s): N17.9 - ACUTE KIDNEY FAILURE, UNSPECIFIED (7) Afib Code(s): I48.91 - UNSPECIFIED ATRIAL FIBRILLATION Qualifiers: Atrial fibrillation type: chronic Qualified Code(s): I48.2 - Chronic atrial fibrillation Visit type - Emergency Visit Emergency Visit: Yes ED Registration Date: 03/28/18 Care time: The patient presented to the Emergency Department on the above date and was hospitalized for further evaluation of their emergent condition. - New Patient This patient is new to me today: No - Critical Care Critical Care patient: No - Discharge Referral Referred to [facility] No
--- NOTE | 2018-04-01 15:28 | PN ---
Progress Note (short form) - Note Progress Note: PULMONARY Feels tired and weak today. Breathing about the same. No fevers recorded. CT chest without acute findings. Vital Signs Period Temp Pulse Resp BP Sys/El Pulse Ox Last 24 Hr 97.4 F-98.3 F 114-137 18-20 136-163/92-114 100 Gen: mildly tachypneic with speaking Heart: RRR Lung: basilar rales Abd: soft, nontender Ext: no edema CBC, BMP 04/01/18 07:00 04/01/18 07:00 Active Medications Albuterol Sulfate (Ventolin 0.083% Nebulizer Soln -) 1 amp NEB Q4H PRN PRN Reason: SHORT OF BREATH/WHEEZING Albuterol/Ipratropium (Duoneb -) 1 amp NEB RQID [facility] Last Admin: 04/01/18 11:54 Dose: Not Given Aspirin (Ecotrin -) 81 mg PO DAILY [facility] Last Admin: 04/01/18 10:07 Dose: 81 mg Atorvastatin Calcium (Lipitor -) 20 mg PO HS [facility] Last Admin: 03/31/18 22:53 Dose: 20 mg Carvedilol (Coreg -) 25 mg PO BID [facility] Last Admin: 04/01/18 10:07 Dose: 25 mg Cholecalciferol (Vitamin D3 -) 2,000 unit PO DAILY [facility] Last Admin: 04/01/18 10:07 Dose: 2,000 unit Cyclobenzaprine HCl (Flexeril -) 5 mg PO BID [facility] Last Admin: 04/01/18 10:06 Dose: 5 mg Docusate Sodium (Colace -) 100 mg PO TID [facility] Last Admin: 04/01/18 14:08 Dose: 100 mg Furosemide (Lasix Injection -) 40 mg IVPUSH DAILY [facility] Last Admin: 04/01/18 10:06 Dose: 40 mg Heparin Sodium (Porcine) (Heparin -) 5,000 unit SQ TID [facility] Last Admin: 04/01/18 14:07 Dose: 5,000 unit Piperacillin Sod/Tazobactam (Sod 3.375 gm/ Dextrose) 50 mls @ 100 mls/hr IVPB Q6H-IV MANJU; Protocol Last Admin: 04/01/18 14:07 Dose: 100 mls/hr Insulin Aspart (Novolog Vial Sliding Scale -) 1 vial SQ ACHS [facility]; Protocol Last Admin: 12/27/18 11:54 Dose: 2 units Methylprednisolone Sodium Succinate (Solu-Medrol -) 40 mg IVPUSH BID [facility] Last Admin: 04/01/18 10:06 Dose: 40 mg Metoprolol Tartrate (Lopressor Injection -) 5 mg IVPUSH Q4H PRN PRN Reason: TACHYCARDIA Last Admin: 03/31/18 16:24 Dose: 5 mg Oseltamivir Phosphate (Tamiflu -) 75 mg PO BID [facility] Stop: 04/02/18 21:59 Last Admin: 04/01/18 10:08 Dose: 75 mg Oxycodone HCl (Roxicodone -) 10 mg PO Q6H PRN PRN Reason: PAIN LEVEL 6-10 Last Admin: 04/01/18 14:08 Dose: 10 mg Pantoprazole Sodium (Protonix -) 40 mg PO DAILY [facility] Last Admin: 04/01/18 10:07 Dose: 40 mg Psyllium Hydrophilic Mucilloid (Metamucil (Sugar-Free) -) 5.85 gm PO BID [facility] Last Admin: 04/01/18 10:07 Dose: 5.85 gm Zolpidem Tartrate (Ambien -) 10 mg PO HS PRN PRN Reason: INSOMNIA Last Admin: 03/31/18 22:53 Dose: 10 mg A/P Acute on Chronic Hypoxic Respiratory Failure Influenza A Acute on Chronic Systolic Heart Failure Mitral Regurgitation Acute COPD Exacerbation +Troponins likely Demand Ischemia Atrial Flutter h/o AVR Pulmonary HTN - complete tamiflu - antibiotics per ID - O2 to keep SpO2>90% - can decrease medrol to daily - inhaled bronchodilators - lasix - monitor urine output, creatinine - rate control - DVT prophylaxis
[2018-04-01] MEDS: METOPROLOL TARTRATE 5 MG/5 ML VIAL IVPUSH PRN ×2 (17:23→21:40)
[2018-04-01] MEDS: ZOLPIDEM TARTRATE 5 MG TABLET PO PRN (21:36)
[2018-04-01] MEDS: ATORVASTATIN CA 20 MG TABLET (FP) PO SCH (21:36)
[2018-04-02] MEDS ORDERED: DEXTROSE 5%-WATER - 50 ML IVPB ONE (02:05)
[2018-04-02] MEDS ORDERED: PIPERACILLIN/TAZOBACTAM 3.375 GM VIAL IVPB ONE (02:05)
[2018-04-02] MEDS: PIPERACILLIN/TAZOB 3.375 GM 3.375 GM in DEXTROSE 5%-WATER - 50 ML IVPB SCH (02:09)
[2018-04-02] MEDS: DOCUSATE SODIUM 100 MG CAPSULE (FP) PO SCH ×3 (06:11→22:24)
[2018-04-02] MEDS: HEPARIN NA (PORCINE) 5,000 UNITS/ML 1ML VIAL SQ SCH ×3 (06:11→22:24)
[2018-04-02] MEDS: INSULIN SLIDING SCALE (NOVOLOG) 1 VIAL SQ SCH ×4 (06:11→22:25)
[2018-04-02] MEDS: oxyCODONE HCL 5 MG TABLET PO PRN ×2 (06:18→17:44)
[2018-04-02 06:41] LABS: HEMATOCRIT 32.4 % (35.4-49); HEMOGLOBIN 10.6 GM/dL (11.7-16.9); MCH 30.6 pg (25.7-33.7); MCHC 32.6 g/dl (32.0-35.9); MEAN CELL VOLUME 93.9 fl (80-96); MEAN PLT VOLUME 9.3 fl (7.5-11.1); PLATELET COUNT 195 K/MM3 (134-434); RBC 3.45 M/mm3 (4.00-5.60); RDW 16.3 % (11.9-15.9)
[2018-04-02 07:21] LABS: ANION GAP 10 MMOL/L (8-16); BLOOD UREA NITROGEN 72 mg/dL (7-18); CHLORIDE 95 mmol/L (98-107); CO2 29 mmol/L (21-32); CREATININE 2.6 mg/dL (0.55-1.3); GLUCOSE,RANDOM 144 mg/dL (74-106); POTASSIUM 4.2 mmol/L (3.5-5.1); SODIUM 133 mmol/L (136-145)
[2018-04-02] MEDS: ALBUTEROL SO4 2.5/IPRATROPIUM 0.5 INH SOL 3 ML VIAL.NEB. NEB SCH ×2 (07:25→11:40)
[2018-04-02] MEDS ORDERED: SENNOSIDES 8.6MG TABLET (FP) PO PRN (09:45)
[2018-04-02] MEDS ORDERED: POLYETHYLENE GLYCOL 3350 119 GM BTL PO ONE (09:46)
[2018-04-02] MEDS ORDERED: methylPREDNISolone NA SUCC 40 MG/1 ML VIAL IVPUSH SCH (10:00)
[2018-04-02] MEDS: PANTOPRAZOLE 40 MG TABLET (FP) PO SCH (10:02)
[2018-04-02] MEDS: CYCLOBENZAPRINE HCL 10 MG TABLET (FP) PO SCH ×2 (10:02→22:23)
[2018-04-02] MEDS: ASPIRIN COATED 81 MG TABLET.EC PO SCH (10:02)
[2018-04-02] MEDS: predniSONE 20 MG TABLET (UD) PO SCH (10:02)
[2018-04-02] MEDS: OSELTAMIVIR PHOSPHATE 75 MG CAPSULE PO SCH (10:03)
[2018-04-02] MEDS: CHOLECALCIFEROL (VITAMIN D3) 1,000 UNIT TABLET (FP) PO SCH (10:03)
[2018-04-02] MEDS: PSYLLIUM 5.85 GM PACKET PO SCH ×2 (10:04→22:23)
--- NOTE | 2018-04-02 10:32 | PN ---
Progress Note (short form) - Note Progress Note: cc: sob s: sob mild, feels malaise today. no chest pain, palps, dizziness, lightheadedness Current Medications Generic Name Dose Route Start Last Admin Trade Name Freq PRN Reason Stop Dose Admin Albuterol Sulfate 1 amp 03/28/18 13:56 Ventolin 0.083% Nebulizer Soln - NEB Q4H PRN SHORT OF BREATH/WHEEZING Albuterol/Ipratropium 1 amp 03/28/18 16:00 04/02/18 07:25 Duoneb - NEB Not Given RQID MANJU Aspirin 81 mg 03/29/18 10:00 04/02/18 10:02 Ecotrin - PO 81 mg DAILY MANJU Administration Atorvastatin Calcium 20 mg 03/28/18 22:00 04/01/18 21:36 Lipitor - PO 20 mg HS MANJU Administration Cholecalciferol 2,000 unit 03/29/18 10:00 04/02/18 10:03 Vitamin D3 - PO 2,000 unit DAILY MNAJU Administration Cyclobenzaprine HCl 5 mg 03/28/18 22:00 04/02/18 10:02 Flexeril - PO 5 mg BID MANJU Administration Docusate Sodium 100 mg 03/28/18 14:00 04/02/18 06:11 Colace - PO 100 mg TID [facility] Administration Heparin Sodium (Porcine) 5,000 unit 03/28/18 14:00 04/02/18 06:11 Heparin - SQ 5,000 unit TID [facility] Administration Insulin Aspart 1 vial 03/28/18 12:23 04/02/18 06:11 Novolog Vial Sliding Scale - SQ Not Given ACHS [facility] Protocol Metoprolol Succinate 50 mg 04/02/18 22:00 Toprol Xl - PO BID [facility] Metoprolol Tartrate 5 mg 03/31/18 11:02 04/01/18 21:40 Lopressor Injection - IVPUSH 5 mg Q4H PRN Administration TACHYCARDIA Oseltamivir Phosphate 75 mg 03/28/18 22:00 04/02/18 10:03 Tamiflu - PO 04/02/18 21:59 75 mg BID MANJU Administration Oxycodone HCl 10 mg 03/29/18 09:17 04/02/18 06:18 Roxicodone - PO 10 mg Q6H PRN Administration PAIN LEVEL 6-10 Pantoprazole Sodium 40 mg 03/29/18 10:00 04/02/18 10:02 Protonix - PO 40 mg DAILY MANJU Administration Prednisone 40 mg 04/02/18 10:00 04/02/18 10:02 Deltasone - PO 40 mg DAILY MANJU Administration Psyllium Hydrophilic Mucilloid 5.85 gm 03/28/18 22:00 04/02/18 10:04 Metamucil (Sugar-Free) - PO 5.85 gm BID MANJU Administration Senna 2 tab 04/02/18 09:45 Senna - PO HS PRN CONSTIPATION Zolpidem Tartrate 10 mg 03/28/18 13:51 04/01/18 21:36 Ambien - PO 10 mg HS PRN Administration INSOMNIA pe: Vital Signs Period Temp Pulse Resp BP Sys/El Pulse Ox Last 24 Hr 97.2 F-98.2 F 130-134 16-18 136-161/96-114 100 nad, +JVD rrr s1s2 no mrg scattered rhonchi, nl eff aaox3 no le e/c/c abd nt nd pos bs no jaundice diaphoresis +dp pt no carotid bruits ECG: AFL, intermittent V-S/V-P, + ST-Ts unchanged vs prior echo 06/2016: sev dec lvef, global hk, rv tds, trinity, mod-sev mr, mod tr, rvsp 50- 60 echo 06/2015: mild lve, mod-sev dec lvef, mod lae, nl rv size, mild dec rv fcn, mild-mod mr, mild tr, nl avr fcn, rvsp 30-40 mibi 06/2016 (pers): non-diagnostic STs; large area inferior/inferolateral/ lateral scar; no ischemia; severe LV cavity dilation; global HK with akinesis of inferior/inferolat/lateral allan; EF 16% mibi 09/2014: large inf scar, mod anteroapical ischemia, lvef 25% tele: AFL HR 130s Vs/[employer]. no VT a/p: 62 m hx copd, cabgx3 2012, bio avr 2012, pad s/p b/l sfa occlusions, syst chf s/p medtronic icd, htn, hld, a-tach, here with back pain, sob. pna, flu: -cont abx per ID acute on chronic systolic CHF exacerbation: -past dry wt here 187 lbs -here with mild chf exacerbation likely worsened by flu/pna -03/30 was on lasix 80 po qd at home, weight stable, stable Cr, feels the same - increased lasix to40 mg IV BID -03/31 Cr rising, change to lasix 40 mg IV daily -04/01: cont same iv lasix -04/02: bun/cr rising, cxr shows less congestion, will dc iv lasix now and monitor cr trend before resuming po lasix -cont bb. not on ACEI due to h/o hyperkalemia atrial flutter: -pt in AFL on ekg -CHADS VASC 4, warrants AC for cardioembolic prophylaxis. pt is at prohibitive risks of falls/head trauma at present (very frequent falls recently including head trauma, suspected LE weakness with mechanical falls etiology) will defer AC for now. Prior plan was for pt to f/u in office to discuss fall risk/ac further but he did not come to appt (often misses appts). Rec'd that he have PT eval while here to assess his fall status so can decide upon long-term AC before leaves. - episodes of RVR likely more frequent in setting of PNA, flu. will change coreg to toprol 50 bid and monitor tele - metoprolol IV PRN for tachycardia cad/hx of CABG 2012 -no recent angina/ischemia -trop chronically in intermediate range, no change in current values, trend is flat, ck nl, not c/w acs -cont prior cad med regimen: asa, statin, bb, ccb bio avr: -nl fcn on echo 06/20 mitral regurgitation: -likely functional MR, mild-mod on echo 06/19, then "mod-severe" when here 06/20 with suspected acute chf and pulm pressures up (though at risk for overestimation of MR severity on that echo report) -valve morphology not described (tethered leaflets?) -no murmur on exam -reassess MR severity on echo as outpt CKD: -baseline creatinine 2-2.5; pad: -stable, no claudication, cont current cardiac meds s/p icd: -no shocks on check earlier this month -routine outpt monitoring htn: -bp stable -cont home meds
--- NOTE | 2018-04-02 11:55 | PN ---
Physical Exam: SUBJECTIVE: Patient seen and examined at bed side this morning. States his SOB is still the same, has abdominal pain in the left lower quadrant, 5/10 in intensity, non radiating. No BM since few days, stool softners didn't help. No acute overnight events. OBJECTIVE: Vital Signs Period Temp Pulse Resp BP Sys/El Pulse Ox Last 24 Hr 97.2 F-98.2 F 130-134 16-18 136-161/96-114 100 GENERAL: Middle aged obese male, lying in bed, Awake, alert, and fully oriented , in no acute distress, nasal canula @ 2L. HEAD: Normal with no signs of trauma. EYES:EOM intact, no pallor or icterus. EARS, NOSE, THROAT: Ears normal, moist mucous membranes. NECK:Supple. LUNGS: B/L Breath sounds equal, bibasilar crackles , No accessory muscle use. HEART: Irregularly irregular, rate, normal S1 and S2 with systolic murmur. ABDOMEN: Soft, tenderness in the left lower quadrant, no organomegaly. MUSCULOSKELETAL: Normal range of motion at all joints. No bony deformities or tenderness. No CVA tenderness. UPPER EXTREMITIES: 2+ pulses, warm, well-perfused. No cyanosis. No clubbing. No peripheral edema. LOWER EXTREMITIES: 2+ pulses, warm, well-perfused. No calf tenderness. Pitting edema b/l-improved. NEUROLOGICAL: No facial droop. Normal speech. Gait not observed. PSYCHIATRIC: Cooperative. Good eye contact. Appropriate mood and affect. SKIN: Warm, dry, normal turgor, no rashes or lesions noted, normal capillary refill. Laboratory Results - last 24 hr 04/01/18 04/01/18 04/01/18 11:51 16:56 20:52 WBC RBC Hgb Hct MCV MCH MCHC RDW Plt Count MPV Sodium Potassium Chloride Carbon Dioxide Anion Gap BUN Creatinine Creat Clearance w eGFR POC Glucometer 280 330 238 Random Glucose Calcium 04/02/18 04/02/18 04/02/18 05:29 05:45 05:45 WBC 20.0 H RBC 3.45 L Hgb 10.6 L Hct 32.4 L MCV 93.9 MCH 30.6 MCHC 32.6 RDW 16.3 H Plt Count 195 MPV 9.3 Sodium 133 L Potassium 4.2 Chloride 95 L Carbon Dioxide 29 Anion Gap 10 BUN 72 H Creatinine 2.6 H Creat Clearance w eGFR 25.14 POC Glucometer 147 Random Glucose 144 H Calcium 8.0 L Active Medications Generic Name Dose Route Start Last Admin Trade Name Freq PRN Reason Stop Dose Admin Albuterol Sulfate 1 amp 03/28/18 13:56 Ventolin 0.083% Nebulizer Soln - NEB Q4H PRN SHORT OF BREATH/WHEEZING Albuterol/Ipratropium 1 amp 03/28/18 16:00 04/02/18 07:25 Duoneb - NEB Not Given RQID MANJU Aspirin 81 mg 03/29/18 10:00 04/02/18 10:02 Ecotrin - PO 81 mg DAILY MANJU Administration Atorvastatin Calcium 20 mg 03/28/18 22:00 04/01/18 21:36 Lipitor - PO 20 mg HS [facility] Administration Cholecalciferol 2,000 unit 03/29/18 10:00 04/02/18 10:03 Vitamin D3 - PO 2,000 unit DAILY MANJU Administration Cyclobenzaprine HCl 5 mg 03/28/18 22:00 04/02/18 10:02 Flexeril - PO 5 mg BID MANJU Administration Docusate Sodium 100 mg 03/28/18 14:00 04/02/18 06:11 Colace - PO 100 mg TID MANJU Administration Heparin Sodium (Porcine) 5,000 unit 03/28/18 14:00 04/02/18 06:11 Heparin - SQ 5,000 unit TID MANJU Administration Insulin Aspart 1 vial 03/28/18 12:23 04/02/18 06:11 Novolog Vial Sliding Scale - SQ Not Given ACHS [facility] Protocol Metoprolol Succinate 50 mg 04/02/18 22:00 Toprol Xl - PO BID [facility] Metoprolol Succinate 50 mg 04/02/18 11:50 Toprol Xl - PO 04/02/18 11:51 ONCE ONE Metoprolol Tartrate 5 mg 03/31/18 11:02 04/01/18 21:40 Lopressor Injection - IVPUSH 5 mg Q4H PRN Administration TACHYCARDIA Oseltamivir Phosphate 75 mg 03/28/18 22:00 04/02/18 10:03 Tamiflu - PO 04/02/18 21:59 75 mg BID MANJU Administration Oxycodone HCl 10 mg 03/29/18 09:17 04/02/18 06:18 Roxicodone - PO 10 mg Q6H PRN Administration PAIN LEVEL 6-10 Pantoprazole Sodium 40 mg 03/29/18 10:00 04/02/18 10:02 Protonix - PO 40 mg DAILY MANJU Administration Prednisone 40 mg 04/02/18 10:00 04/02/18 10:02 Deltasone - PO 40 mg DAILY MANJU Administration Psyllium Hydrophilic Mucilloid 5.85 gm 03/28/18 22:00 04/02/18 10:04 Metamucil (Sugar-Free) - PO 5.85 gm BID MANJU Administration Senna 2 tab 04/02/18 09:45 Senna - PO HS PRN CONSTIPATION Zolpidem Tartrate 10 mg 03/28/18 13:51 04/01/18 21:36 Ambien - PO 10 mg HS PRN Administration INSOMNIA ASSESSMENT/PLAN: Patient is a 62 year old male with significant past medical history of COPD on 3L home O2, pEFHF, CAD, ICD placement, PAD, DM, Atrial fibrillation not on A/c due to risk of fall was brought in to the ED by family members due to shortness of breath. # Abdominal pain Could be due to fecal impaction. Stool softerners didn't help. Will try Enema , patient agrees. If abdominal pain still continues, will consider USG abdomen. # Sinus Tachycardia HR has been persistently elevated since past few days. Initial thought was because of Pneumonia and Flu but now the infection is resolving without much improvement of the HR Coreg changed to Lopressor 50mg BID as per cardio Discontinue albuterol/duoneb as it might also cause tachycardia. Started on Ipratropium and Symbicort. Will continue to monitor in tele. # Acute hypoxic respiratory failure likely secondary to CHF/COPD exacerbation superimposed by Pneumonia and Flu- Improved Completed Tamiflu course. Changed IV steriods to PO Prednisone 40 mg Daily Patient looks dry, lungs are clear, will d/c IV Lasix (creatinine is rising) # Elevated troponins likely from Demand ischemia-down trending. # Prolonged Qtc 582 on admission Avoid any Qtc prolonging agents # CKD creatinine 2.6 (baseline 2-2.1) Avoid Nephrotoxic drugs # Normocytic anemia H/H stable. likely from CKD Iron studies: High ferritin, normal Iron. B12 and Folate high. # Atrial fibrillation CHADsVASc score of 4. Not on a/c due to risk of fall. PT to evaluate. # Hypertension-controlled Changed coreg to Metoprolol 50 BID IV Metoprolol 5mg Q4H PRN for tachycardia. # FEN Not on IV fluids due to volume overloaded. Electrolytes WNL Diabetic diet/fat controlled # Prophylaxis For DVT: On Heparin 5000 IU sq TID FoR GI: Not indicated # Code status: Full Code # Dispo:Admit to tele inpatient. Duration of stay unknown. Illness, Investigation and Plan of care explained to the patient. He verbalized understanding. Case discussed with Dr. Morales. Problem List - Problems (1) Acute exacerbation of CHF (congestive heart failure) Code(s): I50.9 - HEART FAILURE, UNSPECIFIED Qualifiers: Heart failure type: combined systolic and diastolic Qualified Code(s): I50.43 - Acute on chronic combined systolic (congestive) and diastolic ( congestive) heart failure (2) Influenza A Code(s): J10.1 - FLU DUE TO OTH IDENT INFLUENZA VIRUS W OTH RESP MANIFEST (3) Neck pain on right side Code(s): M54.2 - CERVICALGIA (4) Respiratory distress Code(s): R06.00 - DYSPNEA, UNSPECIFIED (5) COPD (chronic obstructive pulmonary disease) Code(s): J44.9 - CHRONIC OBSTRUCTIVE PULMONARY DISEASE, UNSPECIFIED (6) ERROL (acute kidney injury) Code(s): N17.9 - ACUTE KIDNEY FAILURE, UNSPECIFIED (7) Afib Code(s): I48.91 - UNSPECIFIED ATRIAL FIBRILLATION Qualifiers: Atrial fibrillation type: chronic Qualified Code(s): I48.2 - Chronic atrial fibrillation Visit type - Emergency Visit Emergency Visit: Yes ED Registration Date: 03/28/18 Care time: The patient presented to the Emergency Department on the above date and was hospitalized for further evaluation of their emergent condition. - New Patient This patient is new to me today: No - Critical Care Critical Care patient: No - Discharge Referral Referred to [facility] No
--- NOTE | 2018-04-02 13:17 | PN ---
Progress Note, Physician History of Present Illness: continues to improve no new issues - Current Medication List Current Medications: Active Medications Aspirin (Ecotrin -) 81 mg PO DAILY [facility] Last Admin: 04/02/18 10:02 Dose: 81 mg Atorvastatin Calcium (Lipitor -) 20 mg PO HS [facility] Last Admin: 04/01/18 21:36 Dose: 20 mg Budesonide/Formoterol Fumarate (Symbicort 80/4.5mcg -) 2 puff IH BID [facility] Cholecalciferol (Vitamin D3 -) 2,000 unit PO DAILY [facility] Last Admin: 04/02/18 10:03 Dose: 2,000 unit Cyclobenzaprine HCl (Flexeril -) 5 mg PO BID [facility] Last Admin: 04/02/18 10:02 Dose: 5 mg Docusate Sodium (Colace -) 100 mg PO TID [facility] Last Admin: 04/02/18 06:11 Dose: 100 mg Heparin Sodium (Porcine) (Heparin -) 5,000 unit SQ TID [facility] Last Admin: 04/02/18 06:11 Dose: 5,000 unit Insulin Aspart (Novolog Vial Sliding Scale -) 1 vial SQ [facility]; Protocol Last Admin: 04/02/18 12:08 Dose: Not Given Ipratropium [place] (Atrovent 0.02% Nebulizer -) 1 amp NEB Q6H PRN PRN Reason: DYSPEPSIA Stop: 04/09/18 12:06 Lactulose (Cephulac (Oral Use)) 20 gm PO QID [facility] Metoprolol Succinate (Toprol Xl -) 50 mg PO BID [facility] Metoprolol Tartrate (Lopressor Injection -) 5 mg IVPUSH Q4H PRN PRN Reason: TACHYCARDIA Last Admin: 04/01/18 21:40 Dose: 5 mg Oxycodone HCl (Roxicodone -) 10 mg PO Q6H PRN PRN Reason: PAIN LEVEL 6-10 Last Admin: 04/02/18 06:18 Dose: 10 mg Pantoprazole Sodium (Protonix -) 40 mg PO DAILY [facility] Last Admin: 04/02/18 10:02 Dose: 40 mg Prednisone (Deltasone -) 40 mg PO DAILY [facility] Last Admin: 04/02/18 10:02 Dose: 40 mg Psyllium Hydrophilic Mucilloid (Metamucil (Sugar-Free) -) 5.85 gm PO BID [facility] Last Admin: 12/28/18 10:04 Dose: 5.85 gm Senna (Senna -) 2 tab PO HS PRN PRN Reason: CONSTIPATION Zolpidem Tartrate (Ambien -) 10 mg PO HS PRN PRN Reason: INSOMNIA Last Admin: 04/01/18 21:36 Dose: 10 mg - Objective Vital Signs: Vital Signs Temperature 98.1 F 04/02/18 06:00 Pulse Rate 134 H 04/02/18 06:00 Respiratory Rate 16 04/02/18 06:00 Blood Pressure 146/96 04/02/18 06:00 O2 Sat by Pulse Oximetry (%) 100 04/01/18 21:00 Constitutional: Yes: No Distress, Calm Cardiovascular: Yes: S1, S2 Respiratory: Yes: Regular, CTA Bilaterally Gastrointestinal: Yes: Normal Bowel Sounds, Soft Musculoskeletal: Yes: WNL Extremities: Yes: WNL Neurological: Yes: Alert, Oriented Psychiatric: Yes: Alert, Oriented Labs: CBC, BMP 04/02/18 05:45 04/02/18 05:45 INR, PTT INR 1.36 (0.83-1.09) H 03/28/18 07:15 Assessment/Plan Problem List - Problems (1) Acute exacerbation of CHF (congestive heart failure) Code(s): I50.9 - HEART FAILURE, UNSPECIFIED Qualifiers: (2) Influenza A Code(s): J10.1 - FLU DUE TO OTH IDENT INFLUENZA VIRUS W OTH RESP MANIFEST (3) Respiratory distress Code(s): R06.00 - DYSPNEA, UNSPECIFIED (4) COPD (chronic obstructive pulmonary disease) Code(s): J44.9 - CHRONIC OBSTRUCTIVE PULMONARY DISEASE, UNSPECIFIED (5) Afib Code(s): I48.91 - UNSPECIFIED ATRIAL FIBRILLATION Qualifiers: Atrial fibrillation type: chronic Qualified Code(s): I48.2 - Chronic atrial fibrillation (6) Chronic respiratory failure Code(s): J96.10 - CHRONIC RESPIRATORY FAILURE, UNSP W HYPOXIA OR HYPERCAPNIA (7) Pneumonia Code(s): J18.9 - PNEUMONIA, UNSPECIFIED ORGANISM Qualifiers: Pneumonia type: due to unspecified organism Laterality: left Lung location: lower lobe of lung Qualified Code(s): J18.1 - Lobar pneumonia, unspecified organism (8) S/P AVR Code(s): Z95.2 - PRESENCE OF PROSTHETIC HEART VALVE (9) CAD (coronary artery disease) Code(s): I25.10 - ATHSCL HEART DISEASE OF [place] CORONARY ARTERY W/O ANG PCTRS Qualifiers: [place] vs. transplanted heart: sam[place] heart Associated angina: without angina (10) COPD (chronic obstructive pulmonary disease) Code(s): J44.9 - CHRONIC OBSTRUCTIVE PULMONARY DISEASE, UNSPECIFIED Qualifiers: COPD type: COPD with acute exacerbation Qualified Code(s): J44.1 - Chronic obstructive pulmonary disease with (acute) exacerbation (11) Chronic kidney disease (CKD) Code(s): N18.9 - CHRONIC KIDNEY DISEASE, UNSPECIFIED Qualifiers: Chronic kidney disease stage: stage 3 (moderate) Qualified Code(s): N18.3 - Chronic kidney disease, stage 3 (moderate) (12) Diabetes mellitus with chronic kidney disease Code(s): E11.22 - TYPE 2 DIABETES MELLITUS W DIABETIC CHRONIC KIDNEY DISEASE; N18.9 - CHRONIC KIDNEY DISEASE, UNSPECIFIED Qualifiers: Diabetes mellitus type: type 2 Chronic kidney disease stage: stage 3 ( moderate) (13) Peripheral vascular disease Code(s): I73.9 - PERIPHERAL VASCULAR DISEASE, UNSPECIFIED (15) Acute on chronic respiratory failure with hypoxemia Code(s): J96.21 - ACUTE AND CHRONIC RESPIRATORY FAILURE WITH HYPOXIA Assessment/Plan 62 y.o. male with PMH of COPD on home O2, CHF, CAD s/p CABG, AICD, bioprosthetic AVR, MR, Atrial Fibrillation, CKD, HTN, DM and PVD presenting with SOB/tachynea, chest discomfort, leukocytosis, lactic acidosis, pulmonary congestion. Recently admitted to the hospital Influenza A Possible HCAP Sepsis Acute on chronic CHF COPD CKD DM CAD s/p CABG s/p AICD s/p AVR MR AFIB plan will stop abx incentive abby rest as per the team patient stable
--- NOTE | 2018-04-02 13:42 | PN ---
Teaching Attending Note Name of Resident: Paula Yeung ATTENDING PHYSICIAN STATEMENT I saw and evaluated the patient. I reviewed the resident's note and discussed the case with the resident. I agree with the resident's findings and plan as documented. SUBJECTIVE: Mr Owen complains of constipation today but otherwise is without complaint. No cp, sob, n/v. OBJECTIVE: Last Vital Signs Temp Pulse Resp BP Pulse Ox 36.7 C 134 H 16 146/96 100 04/02/18 06:00 04/02/18 06:00 04/02/18 06:00 04/02/18 06:00 04/01/18 21:00 Gen: nad Pulm: ctab w/o w/r/r CV: tachy, irreg irreg, no m/r/g Abd: +bs, s/nt/nd Ext: no c/c/e CBC, BMP 04/02/18 05:45 04/02/18 05:45 ASSESSMENT AND PLAN: (1) Acute on chronic respiratory failure with hypoxemia Assessment/Plan: -at baseline Code(s): J96.21 - ACUTE AND CHRONIC RESPIRATORY FAILURE WITH HYPOXIA (2) Influenza A Assessment/Plan: -s/p full course of tamiflu Code(s): J10.1 - FLU DUE TO OTH IDENT INFLUENZA VIRUS W OTH RESP MANIFEST (3) Pneumonia Assessment/Plan: -finished full course of antibiotics Code(s): J18.9 - PNEUMONIA, UNSPECIFIED ORGANISM Qualifiers: Pneumonia type: due to unspecified organism Laterality: left Lung location: lower lobe of lung Qualified Code(s): J18.1 - Lobar pneumonia, unspecified organism (4) Acute exacerbation of CHF (congestive heart failure) Assessment/Plan: -resolved -cardiology discontinued lasix -monitor -not on ACEI/ARBs secondary to hyperkalemia Code(s): I50.9 - HEART FAILURE, UNSPECIFIED Qualifiers: Heart failure type: combined systolic and diastolic Qualified Code(s): I50.43 - Acute on chronic combined systolic (congestive) and diastolic ( congestive) heart failure (5) COPD exacerbation Assessment/Plan: -continue bronchodilators -change to prednisone taper Code(s): J44.1 - CHRONIC OBSTRUCTIVE PULMONARY DISEASE W (ACUTE) EXACERBATION (6) Afib Assessment/Plan: -still with tachycardia -cardiology note reviewed -change coreg to toprol xl 50mg bid, first dose this am -plan for discharge once HR stable Code(s): I48.91 - UNSPECIFIED ATRIAL FIBRILLATION Qualifiers: Atrial fibrillation type: chronic Qualified Code(s): I48.2 - Chronic atrial fibrillation (7) Acute on chronic renal insufficiency Assessment/Plan: -slightly above baseline -hold lasix as above Code(s): N28.9 - DISORDER OF KIDNEY AND URETER, UNSPECIFIED; N18.9 - CHRONIC KIDNEY DISEASE, UNSPECIFIED (8) Coronary artery disease Assessment/Plan: -cardiology following -continue home regimen Code(s): I25.10 - ATHSCL HEART DISEASE OF [place] CORONARY ARTERY W/O ANG PCTRS Qualifiers: Coronary Disease-Associated Artery/Lesion type: bypass graft, other Associated angina: with other forms of angina Qualified Code(s): I25.798 - Atherosclerosis of other coronary artery bypass graft(s) with other forms of angina pectoris (9) Diabetes mellitus with insulin therapy Assessment/Plan: -diabetic diet and SSI -elevated secondary to steroids Code(s): E11.9 - TYPE 2 DIABETES MELLITUS WITHOUT COMPLICATIONS; Z79.4 - GROUP HOME (CURRENT) USE OF INSULIN (10) HTN (hypertension) Assessment/Plan: -controlled Code(s): I10 - ESSENTIAL (PRIMARY) HYPERTENSION Qualifiers: Hypertension type: essential hypertension Qualified Code(s): I10 - Essential (primary) hypertension (11) Constipation -patient said last bowel movement 6 days ago -add lactulose until bowel movement Dispo -plan for discharge in 24-48 hours on prednisone taper if HR controlled Problem List - Problems (1) Acute on chronic respiratory failure with hypoxemia Code(s): J96.21 - ACUTE AND CHRONIC RESPIRATORY FAILURE WITH HYPOXIA (2) Influenza A Code(s): J10.1 - FLU DUE TO OTH IDENT INFLUENZA VIRUS W OTH RESP MANIFEST (3) Pneumonia Code(s): J18.9 - PNEUMONIA, UNSPECIFIED ORGANISM Qualifiers: Pneumonia type: due to unspecified organism Laterality: left Lung location: lower lobe of lung Qualified Code(s): J18.1 - Lobar pneumonia, unspecified organism (4) Acute exacerbation of CHF (congestive heart failure) Code(s): I50.9 - HEART FAILURE, UNSPECIFIED Qualifiers: Heart failure type: combined systolic and diastolic Qualified Code(s): I50.43 - Acute on chronic combined systolic (congestive) and diastolic ( congestive) heart failure (5) COPD exacerbation Code(s): J44.1 - CHRONIC OBSTRUCTIVE PULMONARY DISEASE W (ACUTE) EXACERBATION (6) Afib Code(s): I48.91 - UNSPECIFIED ATRIAL FIBRILLATION Qualifiers: Atrial fibrillation type: chronic Qualified Code(s): I48.2 - Chronic atrial fibrillation (7) Acute on chronic renal insufficiency Code(s): N28.9 - DISORDER OF KIDNEY AND URETER, UNSPECIFIED; N18.9 - CHRONIC KIDNEY DISEASE, UNSPECIFIED (8) Coronary artery disease Code(s): I25.10 - ATHSCL HEART DISEASE OF [place] CORONARY ARTERY W/O ANG PCTRS Qualifiers: Coronary Disease-Associated Artery/Lesion type: bypass graft, other Associated angina: with other forms of angina Qualified Code(s): I25.798 - Atherosclerosis of other coronary artery bypass graft(s) with other forms of angina pectoris (9) Diabetes mellitus with insulin therapy Code(s): E11.9 - TYPE 2 DIABETES MELLITUS WITHOUT COMPLICATIONS; Z79.4 - EXECUTIVE COMMUNICATIONS MANAGER (CURRENT) USE OF 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
[2018-04-02] MEDS: LACTULOSE 20 GM/30 ML UDC (FOR ORAL USE ONLY) PO SCH ×3 (13:46→22:23)
[2018-04-02] MEDS: IPRATROPIUM BR 0.02% 0.5 MG/2.5 ML VIAL.NEB. NEB PRN ×2 (13:46→18:46)
--- NOTE | 2018-04-02 15:06 | PN ---
Progress Note (short form) - Note Progress Note: PULMONARY OOB TO CHAIR/WEAK VSS Gen: mildly tachypneic with speaking Heart: RRR Lung: basilar rales Abd: soft, nontender Ext: no edema LABS/MEDS/NOTES/IMAGES NOTED A/P Acute on Chronic Hypoxic Respiratory Failure Influenza A Acute on Chronic Systolic Heart Failure Mitral Regurgitation Acute COPD Exacerbation +Troponins likely [place] Ischemia Atrial Flutter h/o AVR Pulmonary HTN - complete tamiflu - antibiotics per ID - O2 to keep SpO2>90% - can decrease medrol to daily - inhaled bronchodilators - lasix - monitor urine output, creatinine - rate control - DVT prophylaxis Danni FORBES MD
[2018-04-02] MEDS: ATORVASTATIN CA 20 MG TABLET (FP) PO SCH (22:25)
[2018-04-02] MEDS: BUDESONIDE/FORMETEROL FUMARATE 80/4.5 mcg INHALER IH SCH (22:25)
[2018-04-03] MEDS: IPRATROPIUM BR 0.02% 0.5 MG/2.5 ML VIAL.NEB. NEB PRN (01:41)
[2018-04-03] MEDS: oxyCODONE HCL 5 MG TABLET PO PRN ×3 (03:15→16:48)
[2018-04-03] MEDS: INSULIN SLIDING SCALE (NOVOLOG) 1 VIAL SQ SCH ×4 (06:13→22:00)
[2018-04-03] MEDS: DOCUSATE SODIUM 100 MG CAPSULE (FP) PO SCH ×3 (06:13→21:54)
[2018-04-03] MEDS: HEPARIN NA (PORCINE) 5,000 UNITS/ML 1ML VIAL SQ SCH ×3 (06:13→21:53)
[2018-04-03 07:29] LABS: HEMATOCRIT 35.3 % (35.4-49); HEMOGLOBIN 11.1 GM/dL (11.7-16.9); MCH 29.8 pg (25.7-33.7); MCHC 31.3 g/dl (32.0-35.9); MEAN CELL VOLUME 95.1 fl (80-96); PLATELET COUNT 170 K/MM3 (134-434); RBC 3.72 M/mm3 (4.00-5.60); RDW 16.7 % (11.9-15.9); WHITE BLOOD COUNT 27.3 K/mm3 (4.0-10.0)
[2018-04-03 08:43] LABS: ANION GAP 15 MMOL/L (8-16); BLOOD UREA NITROGEN 96 mg/dL (7-18); CALCIUM 8.1 mg/dL (8.5-10.1); CHLORIDE 93 mmol/L (98-107); CO2 24 mmol/L (21-32); CREATININE 2.9 mg/dL (0.55-1.3); GLUCOSE,RANDOM 180 mg/dL (74-106); POTASSIUM 4.7 mmol/L (3.5-5.1); SODIUM 132 mmol/L (136-145)
[2018-04-03] MEDS: PANTOPRAZOLE 40 MG TABLET (FP) PO SCH (09:21)
[2018-04-03] MEDS: CYCLOBENZAPRINE HCL 10 MG TABLET (FP) PO SCH ×2 (09:21→21:54)
[2018-04-03] MEDS: predniSONE 20 MG TABLET (UD) PO SCH (09:21)
[2018-04-03] MEDS: ASPIRIN COATED 81 MG TABLET.EC PO SCH (09:22)
[2018-04-03] MEDS: LACTULOSE 20 GM/30 ML UDC (FOR ORAL USE ONLY) PO SCH ×4 (09:22→21:54)
[2018-04-03] MEDS: PSYLLIUM 5.85 GM PACKET PO SCH ×2 (09:22→21:53)
[2018-04-03] MEDS: BUDESONIDE/FORMETEROL FUMARATE 80/4.5 mcg INHALER IH SCH ×2 (09:22→21:30)
[2018-04-03] MEDS: CHOLECALCIFEROL (VITAMIN D3) 1,000 UNIT TABLET (FP) PO SCH (09:22)
[2018-04-03] MEDS: BENZOCAINE/MENTH/CETYLPYRD CL 1 EACH LOZENGE MM PRN (09:26)
--- NOTE | 2018-04-03 09:59 | PN ---
Progress Note, Physician Chief Complaint: Mr Owen today is without complaint. No cp, sob, n/v. +bm. - Current Medication List Current Medications: Active Medications Aspirin (Ecotrin -) 81 mg PO DAILY [facility] Last Admin: 04/03/18 09:22 Dose: 81 mg Atorvastatin Calcium (Lipitor -) 20 mg PO HS [facility] Last Admin: 04/02/18 22:25 Dose: 20 mg Benzocaine/Menthol (Cepacol Lozenge -) 1 each MM PRN PRN PRN Reason: SORE THROAT Last Admin: 04/03/18 09:26 Dose: 1 each Budesonide/Formoterol Fumarate (Symbicort 80/4.5mcg -) 2 puff IH BID [facility] Last Admin: 04/03/18 09:22 Dose: 2 puff Cholecalciferol (Vitamin D3 -) 2,000 unit PO DAILY [facility] Last Admin: 04/03/18 09:22 Dose: 2,000 unit Cyclobenzaprine HCl (Flexeril -) 5 mg PO BID [facility] Last Admin: 04/03/18 09:21 Dose: 5 mg Docusate Sodium (Colace -) 100 mg PO TID [facility] Last Admin: 04/03/18 06:13 Dose: 100 mg Heparin Sodium (Porcine) (Heparin -) 5,000 unit SQ TID [facility] Last Admin: 04/03/18 06:13 Dose: 5,000 unit Insulin Aspart (Novolog Vial Sliding Scale -) 1 vial SQ ACHS [facility]; Protocol Last Admin: 04/03/18 06:13 Dose: 4 units Ipratropium [place] (Atrovent 0.02% Nebulizer -) 1 amp NEB Q6H PRN PRN Reason: DYSPEPSIA Stop: 04/09/18 12:06 Last Admin: 04/03/18 01:41 Dose: 1 amp Lactulose (Cephulac (Oral Use)) 20 gm PO QID [facility] Last Admin: 04/03/18 09:22 Dose: 20 gm Metoprolol Succinate (Toprol Xl -) 50 mg PO BID [facility] Last Admin: 04/03/18 09:21 Dose: 50 mg Metoprolol Tartrate (Lopressor Injection -) 5 mg IVPUSH Q4H PRN PRN Reason: TACHYCARDIA Last Admin: 04/01/18 21:40 Dose: 5 mg Oxycodone HCl (Roxicodone -) 10 mg PO Q6H PRN PRN Reason: PAIN LEVEL 6-10 Last Admin: 04/03/18 09:22 Dose: 10 mg Pantoprazole Sodium (Protonix -) 40 mg PO DAILY [facility] Last Admin: 04/03/18 09:21 Dose: 40 mg Prednisone (Deltasone -) 40 mg PO DAILY [facility] Last Admin: 04/03/18 09:21 Dose: 40 mg Psyllium Hydrophilic Mucilloid (Metamucil (Sugar-Free) -) 5.85 gm PO BID [facility] Last Admin: 04/03/18 09:22 Dose: 5.85 gm Senna (Senna -) 2 tab PO HS PRN PRN Reason: CONSTIPATION Zolpidem Tartrate (Ambien -) 10 mg PO HS PRN PRN Reason: INSOMNIA Last Admin: 04/01/18 21:36 Dose: 10 mg - Objective Vital Signs: Vital Signs Temperature 36.5 C 04/03/18 06:00 Pulse Rate 94 H 04/03/18 06:00 Respiratory Rate 18 04/03/18 06:00 Blood Pressure 150/76 04/03/18 06:00 O2 Sat by Pulse Oximetry (%) 100 04/02/18 20:00 Constitutional: Yes: Well Nourished, No Distress, Calm Cardiovascular: Yes: Pulse Irregular. No: Tachycardia, Gallop, Murmur, Rub Respiratory: Yes: Regular, CTA Bilaterally, On Nasal O2. No: Rales, Rhonchi, Wheezes Gastrointestinal: Yes: Normal Bowel Sounds, Soft. No: Distention, Tenderness Extremities: Yes: WNL Edema: No Labs: CBC, BMP 04/03/18 06:00 04/03/18 06:00 INR, PTT INR 1.36 (0.83-1.09) H 03/28/18 07:15 Problem List - Problems (1) Acute on chronic respiratory failure with hypoxemia Code(s): J96.21 - ACUTE AND CHRONIC RESPIRATORY FAILURE WITH HYPOXIA (2) Influenza A Code(s): J10.1 - FLU DUE TO OTH IDENT INFLUENZA VIRUS W OTH RESP MANIFEST (3) Pneumonia Code(s): J18.9 - PNEUMONIA, UNSPECIFIED ORGANISM Qualifiers: Pneumonia type: due to unspecified organism Laterality: left Lung location: lower lobe of lung Qualified Code(s): J18.1 - Lobar pneumonia, unspecified organism (4) Acute exacerbation of CHF (congestive heart failure) Code(s): I50.9 - HEART FAILURE, UNSPECIFIED Qualifiers: Heart failure type: combined systolic and diastolic Qualified Code(s): I50.43 - Acute on chronic combined systolic (congestive) and diastolic ( congestive) heart failure (5) COPD exacerbation Code(s): J44.1 - CHRONIC OBSTRUCTIVE PULMONARY DISEASE W (ACUTE) EXACERBATION (6) Afib Code(s): I48.91 - UNSPECIFIED ATRIAL FIBRILLATION Qualifiers: Atrial fibrillation type: chronic Qualified Code(s): I48.2 - Chronic atrial fibrillation (7) Acute on chronic renal insufficiency Code(s): N28.9 - DISORDER OF KIDNEY AND URETER, UNSPECIFIED; N18.9 - CHRONIC KIDNEY DISEASE, UNSPECIFIED (8) Coronary artery disease Code(s): I25.10 - ATHSCL HEART DISEASE OF [place] CORONARY ARTERY W/O ANG PCTRS Qualifiers: Coronary Disease-Associated Artery/Lesion type: bypass graft, other Associated angina: with other forms of angina Qualified Code(s): I25.798 - Atherosclerosis of other coronary artery bypass graft(s) with other forms of angina pectoris (9) Diabetes mellitus with insulin therapy Code(s): E11.9 - TYPE 2 DIABETES MELLITUS WITHOUT COMPLICATIONS; Z79.4 - LOGGING CREW FOREMAN (CURRENT) USE OF 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 Assessment/Plan (1) Acute on chronic respiratory failure with hypoxemia Assessment/Plan: -at baseline Code(s): J96.21 - ACUTE AND CHRONIC RESPIRATORY FAILURE WITH HYPOXIA (2) Influenza A Assessment/Plan: -s/p full course of tamiflu Code(s): J10.1 - FLU DUE TO OTH IDENT INFLUENZA VIRUS W OTH RESP MANIFEST (3) Pneumonia Assessment/Plan: -finished full course of antibiotics Code(s): J18.9 - PNEUMONIA, UNSPECIFIED ORGANISM Qualifiers: Pneumonia type: due to unspecified organism Laterality: left Lung location: lower lobe of lung Qualified Code(s): J18.1 - Lobar pneumonia, unspecified organism (4) Acute exacerbation of CHF (congestive heart failure) Assessment/Plan: -resolved -cardiology discontinued lasix -monitor -not on ACEI/ARBs secondary to hyperkalemia Code(s): I50.9 - HEART FAILURE, UNSPECIFIED Qualifiers: Heart failure type: combined systolic and diastolic Qualified Code(s): I50.43 - Acute on chronic combined systolic (congestive) and diastolic ( congestive) heart failure (5) COPD exacerbation Assessment/Plan: -continue bronchodilators -continue prednisone taper Code(s): J44.1 - CHRONIC OBSTRUCTIVE PULMONARY DISEASE W (ACUTE) EXACERBATION (6) Afib Assessment/Plan: -controlled today -continue toprol xl 50mg bid Code(s): I48.91 - UNSPECIFIED ATRIAL FIBRILLATION Qualifiers: Atrial fibrillation type: chronic Qualified Code(s): I48.2 - Chronic atrial fibrillation (7) Acute on chronic renal insufficiency Assessment/Plan: -continues to worsen -continue to hold lasix -recheck in am, may need small amount of fluid Code(s): N28.9 - DISORDER OF KIDNEY AND URETER, UNSPECIFIED; N18.9 - CHRONIC KIDNEY DISEASE, UNSPECIFIED (8) Coronary artery disease Assessment/Plan: -cardiology following -continue home regimen Code(s): I25.10 - ATHSCL HEART DISEASE OF [place] CORONARY ARTERY W/O ANG PCTRS Qualifiers: Coronary Disease-Associated Artery/Lesion type: bypass graft, other Associated angina: with other forms of angina Qualified Code(s): I25.798 - Atherosclerosis of other coronary artery bypass graft(s) with other forms of angina pectoris (9) Diabetes mellitus with insulin therapy Assessment/Plan: -diabetic diet and SSI -elevated secondary to steroids Code(s): E11.9 - TYPE 2 DIABETES MELLITUS WITHOUT COMPLICATIONS; Z79.4 - CARE HOME (CURRENT) USE OF INSULIN (10) HTN (hypertension) Assessment/Plan: -controlled Code(s): I10 - ESSENTIAL (PRIMARY) HYPERTENSION Qualifiers: Hypertension type: essential hypertension Qualified Code(s): I10 - Essential (primary) hypertension (11) Constipation -resolved -will stop lactulose Dispo -plan for discharge when renal function and leukocytosis improves
--- NOTE | 2018-04-03 11:37 | PN ---
Progress Note (short form) - Note Progress Note: cc: sob s: less sob, feels a little better overall. no chest pain, palps, dizziness, lightheadedness Current Medications Generic Name Dose Route Start Last Admin Trade Name Freq PRN Reason Stop Dose Admin Aspirin 81 mg 03/29/18 10:00 04/03/18 09:22 Ecotrin - PO 81 mg DAILY MANJU Administration Atorvastatin Calcium 20 mg 03/28/18 22:00 04/02/18 22:25 Lipitor - PO 20 mg HS MANJU Administration Benzocaine/Menthol 1 each 04/03/18 08:00 04/03/18 09:26 Cepacol Lozenge - MM 1 each PRN PRN Administration SORE THROAT Budesonide/Formoterol Fumarate 2 puff 04/02/18 22:00 04/03/18 09:22 Symbicort 80/4.5mcg - IH 2 puff BID MANJU Administration Cholecalciferol 2,000 unit 03/29/18 10:00 04/03/18 09:22 Vitamin D3 - PO 2,000 unit DAILY MANJU Administration Cyclobenzaprine HCl 5 mg 03/28/18 22:00 04/03/18 09:21 Flexeril - PO 5 mg BID MANJU Administration Docusate Sodium 100 mg 03/28/18 14:00 04/03/18 06:13 Colace - PO 100 mg TID MANJU Administration Heparin Sodium (Porcine) 5,000 unit 03/28/18 14:00 04/03/18 06:13 Heparin - SQ 5,000 unit TID [facility] Administration Insulin Aspart 1 vial 03/28/18 12:23 04/03/18 10:14 Novolog Vial Sliding Scale - SQ Not Given ACHS [facility] Protocol Ipratropium [place] 1 amp 04/02/18 12:06 04/03/18 01:41 Atrovent 0.02% Nebulizer - NEB 04/09/18 12:06 1 amp Q6H PRN Administration DYSPEPSIA Lactulose 20 gm 04/02/18 14:00 04/03/18 09:22 Cephulac (Oral Use) PO 20 gm QID MANJU Administration Metoprolol Succinate 50 mg 04/02/18 22:00 04/03/18 09:21 Toprol Xl - PO 50 mg BID [facility] Administration Metoprolol Tartrate 5 mg 03/31/18 11:02 04/01/18 21:40 Lopressor Injection - IVPUSH 5 mg Q4H PRN Administration TACHYCARDIA Oxycodone HCl 10 mg 03/29/18 09:17 04/03/18 09:22 Roxicodone - PO 10 mg Q6H PRN Administration PAIN LEVEL 6-10 Pantoprazole Sodium 40 mg 03/29/18 10:00 04/03/18 09:21 Protonix - PO 40 mg DAILY MANJU Administration Prednisone 40 mg 04/02/18 10:00 04/03/18 09:21 Deltasone - PO 40 mg DAILY MANJU Administration Psyllium Hydrophilic Mucilloid 5.85 gm 03/28/18 22:00 04/03/18 09:22 Metamucil (Sugar-Free) - PO 5.85 gm BID MANJU Administration Senna 2 tab 04/02/18 09:45 Senna - PO HS PRN CONSTIPATION Zolpidem Tartrate 10 mg 03/28/18 13:51 04/01/18 21:36 Ambien - PO 10 mg HS PRN Administration INSOMNIA pe: Vital Signs Period Temp Pulse Resp BP Sys/El Pulse Ox Last 24 Hr 97 F-97.8 F 68-125 -18 150-166/63-88 100 nad, +JVD rrr s1s2 no mrg cta bl, nl eff aaox3 no le e/c/c abd nt nd pos bs no jaundice diaphoresis +dp pt no carotid bruits ECG: AFL, intermittent V-S/V-P, + ST-Ts unchanged vs prior echo 06/2016: sev dec lvef, global hk, rv tds, trinity, mod-sev mr, mod tr, rvsp 50- 60 echo 06/2015: mild lve, mod-sev dec lvef, mod lae, nl rv size, mild dec rv fcn, mild-mod mr, mild tr, nl avr fcn, rvsp 30-40 mibi 06/2016 (pers): non-diagnostic STs; large area inferior/inferolateral/ lateral scar; no ischemia; severe LV cavity dilation; global HK with akinesis of inferior/inferolat/lateral allan; EF 16% mibi 09/2014: large inf scar, mod anteroapical ischemia, lvef 25% tele: AFL hr controlled a/p: 62 m hx copd, cabgx3 2012, bio avr 2012, pad s/p b/l sfa occlusions, syst chf s/p medtronic icd, htn, hld, a-tach, here with back pain, sob. pna, flu: -cont abx per ID acute on chronic systolic CHF exacerbation: -past dry wt here 187 lbs -here with mild chf exacerbation likely worsened by flu/pna -03/30 was on lasix 80 po qd at home, weight stable, stable Cr, feels the same - increased lasix to40 mg IV BID -03/31 Cr rising, change to lasix 40 mg IV daily -04/01: cont same iv lasix -04/02-: bun/cr rising, cxr shows less congestion, stopped iv lasix, monitoring cr trend before resuming po lasix -cont bb. not on ACEI due to h/o hyperkalemia atrial flutter: -pt in AFL on ekg -CHADS VASC 4, warrants AC for cardioembolic prophylaxis. pt is at prohibitive risks of falls/head trauma at present (very frequent falls recently including head trauma, suspected LE weakness with mechanical falls etiology) will defer AC for now. Prior plan was for pt to f/u in office to discuss fall risk/ac further but he did not come to appt (often misses appts). Rec'd that he have PT eval while here to assess his fall status so can decide upon halfway AC before leaves. - episodes of RVR likely more frequent in setting of PNA, flu. changed coreg to toprol 50 bid and hr improved, cont tele cad/hx of CABG 2012 -no recent angina/ischemia -trop chronically in intermediate range, no change in current values, trend is flat, ck nl, not c/w acs -cont prior cad med regimen: asa, statin, bb, ccb bio avr: -nl fcn on echo 06/20 mitral regurgitation: -likely functional MR, mild-mod on echo 06/19, then "mod-severe" when here 06/20 with suspected acute chf and pulm pressures up (though at risk for overestimation of MR severity on that echo report) -valve morphology not described (tethered leaflets?) -no murmur on exam -reassess MR severity on echo as outpt CKD: -baseline creatinine 2-2.5; pad: -stable, no claudication, cont current cardiac meds s/p icd: -no shocks on check earlier this month -routine outpt monitoring htn: -bp stable -cont home meds
--- NOTE | 2018-04-03 14:12 | PN ---
Progress Note, Physician History of Present Illness: patient doing well no issues - Current Medication List Current Medications: Active Medications Aspirin (Ecotrin -) 81 mg PO DAILY [facility] Last Admin: 04/03/18 09:22 Dose: 81 mg Atorvastatin Calcium (Lipitor -) 20 mg PO HS [facility] Last Admin: 04/02/18 22:25 Dose: 20 mg Benzocaine/Menthol (Cepacol Lozenge -) 1 each MM PRN PRN PRN Reason: SORE THROAT Last Admin: 04/03/18 09:26 Dose: 1 each Budesonide/Formoterol Fumarate (Symbicort 80/4.5mcg -) 2 puff IH BID [facility] Last Admin: 04/03/18 09:22 Dose: 2 puff Cholecalciferol (Vitamin D3 -) 2,000 unit PO DAILY [facility] Last Admin: 04/03/18 09:22 Dose: 2,000 unit Cyclobenzaprine HCl (Flexeril -) 5 mg PO BID [facility] Last Admin: 04/03/18 09:21 Dose: 5 mg Docusate Sodium (Colace -) 100 mg PO TID [facility] Last Admin: 04/03/18 06:13 Dose: 100 mg Heparin Sodium (Porcine) (Heparin -) 5,000 unit SQ TID [facility] Last Admin: 04/03/18 06:13 Dose: 5,000 unit Insulin Aspart (Novolog Vial Sliding Scale -) 1 vial SQ [facility]; Protocol Last Admin: 04/03/18 10:14 Dose: Not Given Ipratropium [place] (Atrovent 0.02% Nebulizer -) 1 amp NEB Q6H PRN PRN Reason: DYSPEPSIA Stop: 04/09/18 12:06 Last Admin: 04/03/18 01:41 Dose: 1 amp Lactulose (Cephulac (Oral Use)) 20 gm PO QID [facility] Last Admin: 04/03/18 09:22 Dose: 20 gm Metoprolol Succinate (Toprol Xl -) 50 mg PO BID [facility] Last Admin: 04/03/18 09:21 Dose: 50 mg Metoprolol Tartrate (Lopressor Injection -) 5 mg IVPUSH Q4H PRN PRN Reason: TACHYCARDIA Last Admin: 04/01/18 21:40 Dose: 5 mg Oxycodone HCl (Roxicodone -) 10 mg PO Q6H PRN PRN Reason: PAIN LEVEL 6-10 Last Admin: 04/03/18 09:22 Dose: 10 mg Pantoprazole Sodium (Protonix -) 40 mg PO DAILY [facility] Last Admin: 04/03/18 09:21 Dose: 40 mg Prednisone (Deltasone -) 40 mg PO DAILY [facility] Last Admin: 04/03/18 09:21 Dose: 40 mg Psyllium Hydrophilic Mucilloid (Metamucil (Sugar-Free) -) 5.85 gm PO BID [facility] Last Admin: 04/03/18 09:22 Dose: 5.85 gm Senna (Senna -) 2 tab PO HS PRN PRN Reason: CONSTIPATION Zolpidem Tartrate (Ambien -) 10 mg PO HS PRN PRN Reason: INSOMNIA Last Admin: 04/01/18 21:36 Dose: 10 mg - Objective Vital Signs: Vital Signs Temperature 97.4 F L 04/03/18 10:00 Pulse Rate 125 H 04/03/18 10:00 Respiratory Rate 18 04/03/18 10:00 Blood Pressure 157/92 04/03/18 10:00 O2 Sat by Pulse Oximetry (%) 100 04/03/18 09:00 Constitutional: Yes: No Distress, Calm Cardiovascular: Yes: S1, S2 Respiratory: Yes: Regular, CTA Bilaterally Gastrointestinal: Yes: Normal Bowel Sounds, Soft Musculoskeletal: Yes: WNL Extremities: Yes: WNL Neurological: Yes: Alert, Oriented Psychiatric: Yes: Alert, Oriented Labs: CBC, BMP 04/03/18 06:00 04/03/18 06:00 INR, PTT INR 1.36 (0.83-1.09) H 03/28/18 07:15 Assessment/Plan Problem List - Problems (1) Acute exacerbation of CHF (congestive heart failure) Code(s): I50.9 - HEART FAILURE, UNSPECIFIED Qualifiers: (2) Influenza A Code(s): J10.1 - FLU DUE TO OTH IDENT INFLUENZA VIRUS W OTH RESP MANIFEST (3) Respiratory distress Code(s): R06.00 - DYSPNEA, UNSPECIFIED (4) COPD (chronic obstructive pulmonary disease) Code(s): J44.9 - CHRONIC OBSTRUCTIVE PULMONARY DISEASE, UNSPECIFIED (5) Afib Code(s): I48.91 - UNSPECIFIED ATRIAL FIBRILLATION Qualifiers: Atrial fibrillation type: chronic Qualified Code(s): I48.2 - Chronic atrial fibrillation (6) Chronic respiratory failure Code(s): J96.10 - CHRONIC RESPIRATORY FAILURE, UNSP W HYPOXIA OR HYPERCAPNIA (7) Pneumonia Code(s): J18.9 - PNEUMONIA, UNSPECIFIED ORGANISM Qualifiers: Pneumonia type: due to unspecified organism Laterality: left Lung location: lower lobe of lung Qualified Code(s): J18.1 - Lobar pneumonia, unspecified organism (8) S/P AVR Code(s): Z95.2 - PRESENCE OF PROSTHETIC HEART VALVE (9) CAD (coronary artery disease) Code(s): I25.10 - ATHSCL HEART DISEASE OF [place] CORONARY ARTERY W/O ANG PCTRS Qualifiers: [place] vs. transplanted heart: [place] heart Associated angina: without angina (10) COPD (chronic obstructive pulmonary disease) Code(s): J44.9 - CHRONIC OBSTRUCTIVE PULMONARY DISEASE, UNSPECIFIED Qualifiers: COPD type: COPD with acute exacerbation Qualified Code(s): J44.1 - Chronic obstructive pulmonary disease with (acute) exacerbation (11) Chronic kidney disease (CKD) Code(s): N18.9 - CHRONIC KIDNEY DISEASE, UNSPECIFIED Qualifiers: Chronic kidney disease stage: stage 3 (moderate) Qualified Code(s): N18.3 - Chronic kidney disease, stage 3 (moderate) (12) Diabetes mellitus with chronic kidney disease Code(s): E11.22 - TYPE 2 DIABETES MELLITUS W DIABETIC CHRONIC KIDNEY DISEASE; N18.9 - CHRONIC KIDNEY DISEASE, UNSPECIFIED Qualifiers: Diabetes mellitus type: type 2 Chronic kidney disease stage: stage 3 ( moderate) (13) Peripheral vascular disease Code(s): I73.9 - PERIPHERAL VASCULAR DISEASE, UNSPECIFIED (15) Acute on chronic respiratory failure with hypoxemia Code(s): J96.21 - ACUTE AND CHRONIC RESPIRATORY FAILURE WITH HYPOXIA Assessment/Plan 62 y.o. male with PMH of COPD on home O2, CHF, CAD s/p CABG, AICD, bioprosthetic AVR, MR, Atrial Fibrillation, CKD, HTN, DM and PVD presenting with SOB/tachynea, chest discomfort, leukocytosis, lactic acidosis, pulmonary congestion. Recently admitted to the hospital Influenza A Possible HCAP Sepsis Acute on chronic CHF COPD CKD DM CAD s/p CABG s/p AICD s/p AVR MR AFIB plan stable off of abx incentive abby rest as per the team patient doing well
[2018-04-03] MEDS: ATORVASTATIN CA 20 MG TABLET (FP) PO SCH (21:54)
[2018-04-03] MEDS: ZOLPIDEM TARTRATE 5 MG TABLET PO PRN (22:15)
[2018-04-04] MEDS: DOCUSATE SODIUM 100 MG CAPSULE (FP) PO SCH ×3 (05:55→22:02)
[2018-04-04] MEDS: HEPARIN NA (PORCINE) 5,000 UNITS/ML 1ML VIAL SQ SCH (05:55)
[2018-04-04 06:25] LABS: BASO % 0.5 % (0-2.0); EOS % 0.1 % (0-4.5); HEMATOCRIT 38.8 % (35.4-49); HEMOGLOBIN 12.2 GM/dL (11.7-16.9); LYMPH % 2.9 % (8-40); MCH 29.9 pg (25.7-33.7); MCHC 31.5 g/dl (32.0-35.9); MEAN CELL VOLUME 94.9 fl (80-96); MEAN PLT VOLUME 9.9 fl (7.5-11.1); MONO % 6.4 % (3.8-10.2); NEUT % 90.1 % (42.8-82.8); PLATELET COUNT 152 K/MM3 (134-434); RBC 4.08 M/mm3 (4.00-5.60); RDW 17.1 % (11.9-15.9); WHITE BLOOD COUNT 18.1 K/mm3 (4.0-10.0)
[2018-04-04 06:52] LABS: ANION GAP 12 MMOL/L (8-16); BLOOD UREA NITROGEN 94 mg/dL (7-18); CALCIUM 8.5 mg/dL (8.5-10.1); CHLORIDE 94 mmol/L (98-107); CO2 28 mmol/L (21-32); CREATININE 2.7 mg/dL (0.55-1.3); GLUCOSE,RANDOM 193 mg/dL (74-106); MAGNESIUM 2.6 mg/dL (1.8-2.4); PHOSPHOROUS 5.1 mg/dL (2.5-4.9); POTASSIUM 4.6 mmol/L (3.5-5.1); SODIUM 134 mmol/L (136-145)
[2018-04-04] MEDS: INSULIN SLIDING SCALE (NOVOLOG) 1 VIAL SQ SCH ×4 (07:38→22:08)
[2018-04-04] MEDS ORDERED: SODIUM CHLORIDE 250 ML IV STA (07:53)
[2018-04-04] MEDS ORDERED: PT OWN MED DRAWER 7, Y5N ONE ×2 (08:14→22:47)
[2018-04-04] MEDS: CYCLOBENZAPRINE HCL 10 MG TABLET (FP) PO SCH ×2 (09:00→22:02)
[2018-04-04] MEDS: predniSONE 20 MG TABLET (UD) PO SCH (09:00)
[2018-04-04] MEDS: LACTULOSE 20 GM/30 ML UDC (FOR ORAL USE ONLY) PO SCH ×2 (09:00→15:23)
[2018-04-04] MEDS: PSYLLIUM 5.85 GM PACKET PO SCH ×3 (09:00→22:07)
[2018-04-04] MEDS: BUDESONIDE/FORMETEROL FUMARATE 80/4.5 mcg INHALER IH SCH ×2 (09:00→22:08)
[2018-04-04] MEDS: ASPIRIN COATED 81 MG TABLET.EC PO SCH (09:00)
[2018-04-04] MEDS: CHOLECALCIFEROL (VITAMIN D3) 1,000 UNIT TABLET (FP) PO SCH (09:01)
[2018-04-04] MEDS: PANTOPRAZOLE 40 MG TABLET (FP) PO SCH (09:34)
--- NOTE | 2018-04-04 10:46 | PN ---
Progress Note (short form) - Note Progress Note: cc: sob s: no sob, chest pain, palps, dizziness, lightheadedness Current Medications Generic Name Dose Route Start Last Admin Trade Name Freq PRN Reason Stop Dose Admin Aspirin 81 mg 03/29/18 10:00 04/04/18 09:00 Ecotrin - PO 81 mg DAILY MANJU Administration Atorvastatin Calcium 20 mg 03/28/18 22:00 04/03/18 21:54 Lipitor - PO 20 mg HS MANJU Administration Benzocaine/Menthol 1 each 04/03/18 08:00 04/03/18 09:26 Cepacol Lozenge - MM 1 each PRN PRN Administration SORE THROAT Budesonide/Formoterol Fumarate 2 puff 04/02/18 22:00 04/04/18 09:00 Symbicort 80/4.5mcg - IH 2 puff BID MANJU Administration Cholecalciferol 2,000 unit 03/29/18 10:00 04/04/18 09:01 Vitamin D3 - PO 2,000 unit DAILY MANJU Administration Cyclobenzaprine HCl 5 mg 03/28/18 22:00 04/04/18 09:00 Flexeril - PO 5 mg BID MANJU Administration Docusate Sodium 100 mg 03/28/18 14:00 04/04/18 05:55 Colace - PO 100 mg TID MANJU Administration Heparin Sodium (Porcine) 5,000 unit 03/28/18 14:00 04/04/18 05:55 Heparin - SQ 5,000 unit TID MANJU Administration Sodium Chloride 250 mls @ 50 mls/hr 04/04/18 07:53 04/04/18 08:48 Normal Saline - IV 04/04/18 12:52 50 mls/hr ASDIR STA Administration Insulin Aspart 1 vial 03/28/18 12:23 04/04/18 07:38 Novolog Vial Sliding Scale - SQ Not Given ACHS [facility] Protocol Ipratropium [place] 1 amp 04/02/18 12:06 04/03/18 01:41 Atrovent 0.02% Nebulizer - NEB 04/09/18 12:06 1 amp Q6H PRN Administration DYSPEPSIA Lactulose 20 gm 04/02/18 14:00 04/04/18 09:00 Cephulac (Oral Use) PO 20 gm QID MANJU Administration Metoprolol Succinate 50 mg 04/02/18 22:00 04/04/18 09:00 Toprol Xl - PO 50 mg BID MANJU Administration Metoprolol Tartrate 5 mg 03/31/18 11:02 04/01/18 21:40 Lopressor Injection - IVPUSH 5 mg Q4H PRN Administration TACHYCARDIA Oxycodone HCl 10 mg 03/29/18 09:17 04/03/18 16:48 Roxicodone - PO 10 mg Q6H PRN Administration PAIN LEVEL 6-10 Pantoprazole Sodium 40 mg 03/29/18 10:00 04/04/18 09:34 Protonix - PO 40 mg DAILY MANJU Administration Prednisone 40 mg 04/02/18 10:00 04/04/18 09:00 Deltasone - PO 40 mg DAILY MANJU Administration Psyllium Hydrophilic Mucilloid 5.85 gm 03/28/18 22:00 04/04/18 09:00 Metamucil (Sugar-Free) - PO 5.85 gm BID MANJU Administration Senna 2 tab 04/02/18 09:45 Senna - PO HS PRN CONSTIPATION Zolpidem Tartrate 10 mg 03/28/18 13:51 04/03/18 22:15 Ambien - PO 10 mg HS PRN Administration INSOMNIA pe: Vital Signs Period Temp Pulse Resp BP Sys/El Pulse Ox Last 24 Hr 97.3 F-99.0 F 67-123 16-20 147-158/81-101 96 nad, +JVD rrr s1s2 no mrg cta bl, nl eff aaox3 no le e/c/c abd nt nd pos bs no jaundice diaphoresis +dp pt no carotid bruits ECG: AFL, intermittent V-S/V-P, + ST-Ts unchanged vs prior echo 06/2016: sev dec lvef, global hk, rv tds, trinity, mod-sev mr, mod tr, rvsp 50- 60 echo 06/2015: mild lve, mod-sev dec lvef, mod lae, nl rv size, mild dec rv fcn, mild-mod mr, mild tr, nl avr fcn, rvsp 30-40 mibi 06/2016 (pers): non-diagnostic STs; large area inferior/inferolateral/ lateral scar; no ischemia; severe LV cavity dilation; global HK with akinesis of inferior/inferolat/lateral allan; EF 16% mibi 09/2014: large inf scar, mod anteroapical ischemia, lvef 25% tele: AFL hr controlled a/p: 62 m hx copd, cabgx3 2012, bio avr 2012, pad s/p b/l sfa occlusions, syst chf s/p medtronic icd, htn, hld, a-tach, here with back pain, sob. pna, flu: -cont abx per ID acute on chronic systolic CHF exacerbation: -past dry wt here 187 lbs -here with mild chf exacerbation likely worsened by flu/pna -03/30 was on lasix 80 po qd at home, weight stable, stable Cr, feels the same - increased lasix to40 mg IV BID -03/31 Cr rising, change to lasix 40 mg IV daily -04/01: cont same iv lasix -04/02-: bun/cr rising, cxr shows less congestion, stopped iv lasix, monitoring cr trend before resuming po lasix -04/04: cr slightly better today, continue to hold lasix -cont bb. not on ACEI due to h/o hyperkalemia atrial flutter: -pt in AFL on ekg -CHADS VASC 4, warrants AC for cardioembolic prophylaxis. pt is at prohibitive risks of falls/head trauma at present (very frequent falls recently including head trauma, suspected LE weakness with mechanical falls etiology) will defer AC for now. Prior plan was for pt to f/u in office to discuss fall risk/ac further but he did not come to appt (often misses appts). Rec'd that he have PT eval while here to assess his fall status so can decide upon chcf AC before leaves. - episodes of RVR likely more frequent in setting of PNA, flu. changed coreg to toprol 50 bid and hr improved, cont tele cad/hx of CABG 2012 -no recent angina/ischemia -trop chronically in intermediate range, no change in current values, trend is flat, ck nl, not c/w acs -cont prior cad med regimen: asa, statin, bb, ccb bio avr: -nl fcn on echo 06/20 mitral regurgitation: -likely functional MR, mild-mod on echo 06/19, then "mod-severe" when here 06/20 with suspected acute chf and pulm pressures up (though at risk for overestimation of MR severity on that echo report) -valve morphology not described (tethered leaflets?) -no murmur on exam -reassess MR severity on echo as outpt pad: -stable, no claudication, cont current cardiac meds s/p icd: -no shocks on check earlier this month -routine outpt monitoring htn: -bp stable -cont home meds
[2018-04-04] MEDS: oxyCODONE HCL 5 MG TABLET PO PRN ×2 (10:51→17:50)
[2018-04-04 12:07] LABS: ANISOCYTOSIS 0; MACROCYTOSIS 0; OVALOCYTE 1+; PLATELET ESTIMATE DECREASED
--- NOTE | 2018-04-04 12:13 | PN ---
Progress Note (short form) - Note Progress Note: PULMONARY Lying comfortably in bed VSS Gen: mildly tachypneic Heart: RRR Lung: basilar rales Abd: soft, nontender Ext: no edema LABS/MEDS/NOTES/IMAGES NOTED A/P Acute on Chronic Hypoxic Respiratory Failure Influenza A Acute on Chronic Systolic Heart Failure Mitral Regurgitation Acute COPD Exacerbation +Troponins likely [place] Ischemia Atrial Flutter h/o AVR Pulmonary HTN - completed tamiflu - O2 to keep SpO2>90% - Taper prednisone - inhaled bronchodilators - lasix - monitor urine output, creatinine - rate control - DVT prophylaxis Danni FORBES MD
[2018-04-04 15:19] LABS: ANION GAP 11 MMOL/L (8-16); BLOOD UREA NITROGEN 97 mg/dL (7-18); CALCIUM 8.1 mg/dL (8.5-10.1); CHLORIDE 93 mmol/L (98-107); CO2 28 mmol/L (21-32); CREATININE 2.5 mg/dL (0.55-1.3); GLUCOSE,RANDOM 290 mg/dL (74-106); SODIUM 132 mmol/L (136-145)
--- NOTE | 2018-04-04 15:39 | PN ---
Progress Note, Physician History of Present Illness: stable ]no new issues - Current Medication List Current Medications: Active Medications Aspirin (Ecotrin -) 81 mg PO DAILY [facility] Last Admin: 04/04/18 09:00 Dose: 81 mg Atorvastatin Calcium (Lipitor -) 20 mg PO HS [facility] Last Admin: 04/03/18 21:54 Dose: 20 mg Benzocaine/Menthol (Cepacol Lozenge -) 1 each MM PRN PRN PRN Reason: SORE THROAT Last Admin: 04/03/18 09:26 Dose: 1 each Budesonide/Formoterol Fumarate (Symbicort 80/4.5mcg -) 2 puff IH BID [facility] Last Admin: 04/04/18 09:00 Dose: 2 puff Cholecalciferol (Vitamin D3 -) 2,000 unit PO DAILY [facility] Last Admin: 04/04/18 09:01 Dose: 2,000 unit Cyclobenzaprine HCl (Flexeril -) 5 mg PO BID [facility] Last Admin: 04/04/18 09:00 Dose: 5 mg Docusate Sodium (Colace -) 100 mg PO TID [facility] Last Admin: 04/04/18 15:23 Dose: Not Given Insulin Aspart (Novolog Vial Sliding Scale -) 1 vial SQ ACHS [facility]; Protocol Last Admin: 04/04/18 12:10 Dose: 8 units Ipratropium [place] (Atrovent 0.02% Nebulizer -) 1 amp NEB Q6H PRN PRN Reason: DYSPEPSIA Stop: 04/09/18 12:06 Last Admin: 04/03/18 01:41 Dose: 1 amp Lactulose (Cephulac (Oral Use)) 20 gm PO QID [facility] Last Admin: 04/04/18 15:23 Dose: Not Given Metoprolol Succinate (Toprol Xl -) 50 mg PO BID [facility] Last Admin: 04/04/18 09:00 Dose: 50 mg Metoprolol Tartrate (Lopressor Injection -) 5 mg IVPUSH Q4H PRN PRN Reason: TACHYCARDIA Last Admin: 04/01/18 21:40 Dose: 5 mg Oxycodone HCl (Roxicodone -) 10 mg PO Q6H PRN PRN Reason: PAIN LEVEL 6-10 Last Admin: 04/04/18 10:51 Dose: 10 mg Pantoprazole Sodium (Protonix -) 40 mg PO DAILY [facility] Last Admin: 04/04/18 09:34 Dose: 40 mg Prednisone (Deltasone -) 40 mg PO DAILY [facility] Last Admin: 04/04/18 09:00 Dose: 40 mg Psyllium Hydrophilic Mucilloid (Metamucil (Sugar-Free) -) 5.85 gm PO BID [facility] Last Admin: 04/04/18 09:00 Dose: 5.85 gm Senna (Senna -) 2 tab PO HS PRN PRN Reason: CONSTIPATION Zolpidem Tartrate (Ambien -) 10 mg PO HS PRN PRN Reason: INSOMNIA Last Admin: 04/03/18 22:15 Dose: 10 mg - Objective Vital Signs: Vital Signs Temperature 97.4 F L 04/04/18 06:00 Pulse Rate 74 04/04/18 10:00 Respiratory Rate 18 04/04/18 10:00 Blood Pressure 142/78 04/04/18 10:00 O2 Sat by Pulse Oximetry (%) 96 04/04/18 10:00 Constitutional: Yes: No Distress, Calm Cardiovascular: Yes: Regular Rate and Rhythm Respiratory: Yes: Regular, CTA Bilaterally Gastrointestinal: Yes: Normal Bowel Sounds, Soft Musculoskeletal: Yes: WNL Extremities: Yes: WNL Neurological: Yes: Alert, Oriented Psychiatric: Yes: Alert, Oriented Labs: CBC, BMP 04/04/18 06:00 04/04/18 14:40 INR, PTT INR 1.36 (0.83-1.09) H 03/28/18 07:15 Assessment/Plan Problem List - Problems (1) Acute exacerbation of CHF (congestive heart failure) Code(s): I50.9 - HEART FAILURE, UNSPECIFIED Qualifiers: (2) Influenza A Code(s): J10.1 - FLU DUE TO OTH IDENT INFLUENZA VIRUS W OTH RESP MANIFEST (3) Respiratory distress Code(s): R06.00 - DYSPNEA, UNSPECIFIED (4) COPD (chronic obstructive pulmonary disease) Code(s): J44.9 - CHRONIC OBSTRUCTIVE PULMONARY DISEASE, UNSPECIFIED (5) Afib Code(s): I48.91 - UNSPECIFIED ATRIAL FIBRILLATION Qualifiers: Atrial fibrillation type: chronic Qualified Code(s): I48.2 - Chronic atrial fibrillation (6) Chronic respiratory failure Code(s): J96.10 - CHRONIC RESPIRATORY FAILURE, UNSP W HYPOXIA OR HYPERCAPNIA (7) Pneumonia Code(s): J18.9 - PNEUMONIA, UNSPECIFIED ORGANISM Qualifiers: Pneumonia type: due to unspecified organism Laterality: left Lung location: lower lobe of lung Qualified Code(s): J18.1 - Lobar pneumonia, unspecified organism (8) S/P AVR Code(s): Z95.2 - PRESENCE OF PROSTHETIC HEART VALVE (9) CAD (coronary artery disease) Code(s): I25.10 - ATHSCL HEART DISEASE OF [place] CORONARY ARTERY W/O ANG PCTRS Qualifiers: [place] vs. transplanted heart: [place] heart Associated angina: without angina (10) COPD (chronic obstructive pulmonary disease) Code(s): J44.9 - CHRONIC OBSTRUCTIVE PULMONARY DISEASE, UNSPECIFIED Qualifiers: COPD type: COPD with acute exacerbation Qualified Code(s): J44.1 - Chronic obstructive pulmonary disease with (acute) exacerbation (11) Chronic kidney disease (CKD) Code(s): N18.9 - CHRONIC KIDNEY DISEASE, UNSPECIFIED Qualifiers: Chronic kidney disease stage: stage 3 (moderate) Qualified Code(s): N18.3 - Chronic kidney disease, stage 3 (moderate) (12) Diabetes mellitus with chronic kidney disease Code(s): E11.22 - TYPE 2 DIABETES MELLITUS W DIABETIC CHRONIC KIDNEY DISEASE; N18.9 - CHRONIC KIDNEY DISEASE, UNSPECIFIED Qualifiers: Diabetes mellitus type: type 2 Chronic kidney disease stage: stage 3 ( moderate) (13) Peripheral vascular disease Code(s): I73.9 - PERIPHERAL VASCULAR DISEASE, UNSPECIFIED (15) Acute on chronic respiratory failure with hypoxemia Code(s): J96.21 - ACUTE AND CHRONIC RESPIRATORY FAILURE WITH HYPOXIA Assessment/Plan 62 y.o. male with PMH of COPD on home O2, CHF, CAD s/p CABG, AICD, bioprosthetic AVR, MR, Atrial Fibrillation, CKD, HTN, DM and PVD presenting with SOB/tachynea, chest discomfort, leukocytosis, lactic acidosis, pulmonary congestion. Recently admitted to the hospital Influenza A Possible HCAP Sepsis Acute on chronic CHF COPD CKD DM CAD s/p CABG s/p AICD s/p AVR MR AFIB plan stable off of abx incentive abby rest as per the team patient doing well
--- NOTE | 2018-04-04 15:59 | PN ---
Progress Note, Physician Chief Complaint: Mr Owen says he feels good today. No cp, sob, n/v. - Current Medication List Current Medications: Active Medications Aspirin (Ecotrin -) 81 mg PO DAILY [facility] Last Admin: 04/04/18 09:00 Dose: 81 mg Atorvastatin Calcium (Lipitor -) 20 mg PO HS [facility] Last Admin: 04/03/18 21:54 Dose: 20 mg Benzocaine/Menthol (Cepacol Lozenge -) 1 each MM PRN PRN PRN Reason: SORE THROAT Last Admin: 04/03/18 09:26 Dose: 1 each Budesonide/Formoterol Fumarate (Symbicort 80/4.5mcg -) 2 puff IH BID [facility] Last Admin: 04/04/18 09:00 Dose: 2 puff Cholecalciferol (Vitamin D3 -) 2,000 unit PO DAILY [facility] Last Admin: 04/04/18 09:01 Dose: 2,000 unit Cyclobenzaprine HCl (Flexeril -) 5 mg PO BID [facility] Last Admin: 04/04/18 09:00 Dose: 5 mg Docusate Sodium (Colace -) 100 mg PO TID [facility] Last Admin: 04/04/18 15:23 Dose: Not Given Sodium Chloride (Normal Saline -) 1,000 mls @ 42 mls/hr IV ASDIR [facility] Stop: 04/05/18 15:49 Insulin Aspart (Novolog Vial Sliding Scale -) 1 vial SQ ACHS [facility]; Protocol Last Admin: 04/04/18 12:10 Dose: 8 units Ipratropium [place] (Atrovent 0.02% Nebulizer -) 1 amp NEB Q6H PRN PRN Reason: DYSPEPSIA Stop: 04/09/18 12:06 Last Admin: 04/03/18 01:41 Dose: 1 amp Lactulose (Cephulac (Oral Use)) 20 gm PO QID [facility] Last Admin: 04/04/18 15:23 Dose: Not Given Metoprolol Succinate (Toprol Xl -) 50 mg PO BID [facility] Last Admin: 04/04/18 09:00 Dose: 50 mg Metoprolol Tartrate (Lopressor Injection -) 5 mg IVPUSH Q4H PRN PRN Reason: TACHYCARDIA Last Admin: 04/01/18 21:40 Dose: 5 mg Pantoprazole Sodium (Protonix -) 40 mg PO DAILY [facility] Last Admin: 04/04/18 09:34 Dose: 40 mg Prednisone (Deltasone -) 40 mg PO DAILY [facility] Last Admin: 04/04/18 09:00 Dose: 40 mg Psyllium Hydrophilic Mucilloid (Metamucil (Sugar-Free) -) 5.85 gm PO BID [facility] Last Admin: 04/04/18 09:00 Dose: 5.85 gm Senna (Senna -) 2 tab PO HS PRN PRN Reason: CONSTIPATION - Objective Vital Signs: Vital Signs Temperature 36.3 C L 04/04/18 06:00 Pulse Rate 74 04/04/18 10:00 Respiratory Rate 18 04/04/18 10:00 Blood Pressure 142/78 04/04/18 10:00 O2 Sat by Pulse Oximetry (%) 96 04/04/18 10:00 Constitutional: Yes: Well Nourished, No Distress, Calm Cardiovascular: Yes: Pulse Irregular. No: Tachycardia, Gallop, Murmur, Rub Respiratory: Yes: Regular, CTA Bilaterally, On Nasal O2. No: Rales, Rhonchi, Wheezes Gastrointestinal: Yes: Normal Bowel Sounds, Soft. No: Distention, Tenderness Extremities: Yes: WNL Edema: No Labs: CBC, BMP 04/04/18 06:00 04/04/18 14:40 INR, PTT INR 1.36 (0.83-1.09) H 03/28/18 07:15 Problem List - Problems (1) Acute on chronic respiratory failure with hypoxemia Code(s): J96.21 - ACUTE AND CHRONIC RESPIRATORY FAILURE WITH HYPOXIA (2) Influenza A Code(s): J10.1 - FLU DUE TO OTH IDENT INFLUENZA VIRUS W OTH RESP MANIFEST (3) Pneumonia Code(s): J18.9 - PNEUMONIA, UNSPECIFIED ORGANISM Qualifiers: Pneumonia type: due to unspecified organism Laterality: left Lung location: lower lobe of lung Qualified Code(s): J18.1 - Lobar pneumonia, unspecified organism (4) Acute exacerbation of CHF (congestive heart failure) Code(s): I50.9 - HEART FAILURE, UNSPECIFIED Qualifiers: Heart failure type: combined systolic and diastolic Qualified Code(s): I50.43 - Acute on chronic combined systolic (congestive) and diastolic ( congestive) heart failure (5) COPD exacerbation Code(s): J44.1 - CHRONIC OBSTRUCTIVE PULMONARY DISEASE W (ACUTE) EXACERBATION (6) Afib Code(s): I48.91 - UNSPECIFIED ATRIAL FIBRILLATION Qualifiers: Atrial fibrillation type: chronic Qualified Code(s): I48.2 - Chronic atrial fibrillation (7) Acute on chronic renal insufficiency Code(s): N28.9 - DISORDER OF KIDNEY AND URETER, UNSPECIFIED; N18.9 - CHRONIC KIDNEY DISEASE, UNSPECIFIED (8) Coronary artery disease Code(s): I25.10 - ATHSCL HEART DISEASE OF [place] CORONARY ARTERY W/O ANG PCTRS Qualifiers: Coronary Disease-Associated Artery/Lesion type: bypass graft, other Associated angina: with other forms of angina Qualified Code(s): I25.798 - Atherosclerosis of other coronary artery bypass graft(s) with other forms of angina pectoris (9) Diabetes mellitus with insulin therapy Code(s): E11.9 - TYPE 2 DIABETES MELLITUS WITHOUT COMPLICATIONS; Z79.4 - [employer] (CURRENT) USE OF 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 Assessment/Plan (1) Acute on chronic respiratory failure with hypoxemia Assessment/Plan: -at baseline Code(s): J96.21 - ACUTE AND CHRONIC RESPIRATORY FAILURE WITH HYPOXIA (2) Influenza A Assessment/Plan: -s/p full course of tamiflu Code(s): J10.1 - FLU DUE TO OTH IDENT INFLUENZA VIRUS W OTH RESP MANIFEST (3) Pneumonia Assessment/Plan: -finished full course of antibiotics Code(s): J18.9 - PNEUMONIA, UNSPECIFIED ORGANISM Qualifiers: Pneumonia type: due to unspecified organism Laterality: left Lung location: lower lobe of lung Qualified Code(s): J18.1 - Lobar pneumonia, unspecified organism (4) Acute exacerbation of CHF (congestive heart failure) Assessment/Plan: -resolved -cardiology discontinued lasix -monitor -not on ACEI/ARBs secondary to hyperkalemia Code(s): I50.9 - HEART FAILURE, UNSPECIFIED Qualifiers: Heart failure type: combined systolic and diastolic Qualified Code(s): I50.43 - Acute on chronic combined systolic (congestive) and diastolic ( congestive) heart failure (5) COPD exacerbation Assessment/Plan: -continue bronchodilators -continue prednisone taper Code(s): J44.1 - CHRONIC OBSTRUCTIVE PULMONARY DISEASE W (ACUTE) EXACERBATION (6) Afib Assessment/Plan: -controlled today -continue toprol xl 50mg bid Code(s): I48.91 - UNSPECIFIED ATRIAL FIBRILLATION Qualifiers: Atrial fibrillation type: chronic Qualified Code(s): I48.2 - Chronic atrial fibrillation (7) Acute on chronic renal insufficiency Assessment/Plan: -only minimal improvement off of lasix -gave 250mL challenge, tolerated -will continue NS @ 42mL/hr and closely monitor for fluid overload -recheck bmp in am, will stop IVF in am as patient is tenuous but needs hydration Code(s): N28.9 - DISORDER OF KIDNEY AND URETER, UNSPECIFIED; N18.9 - CHRONIC KIDNEY DISEASE, UNSPECIFIED (8) Coronary artery disease Assessment/Plan: -cardiology following -continue home regimen Code(s): I25.10 - ATHSCL HEART DISEASE OF [place] CORONARY ARTERY W/O ANG PCTRS Qualifiers: Coronary Disease-Associated Artery/Lesion type: bypass graft, other Associated angina: with other forms of angina Qualified Code(s): I25.798 - Atherosclerosis of other coronary artery bypass graft(s) with other forms of angina pectoris (9) Diabetes mellitus with insulin therapy Assessment/Plan: -diabetic diet and SSI -elevated secondary to steroids Code(s): E11.9 - TYPE 2 DIABETES MELLITUS WITHOUT COMPLICATIONS; Z79.4 - [employer]ER (CURRENT) USE OF INSULIN (10) HTN (hypertension) Assessment/Plan: -controlled Code(s): I10 - ESSENTIAL (PRIMARY) HYPERTENSION Qualifiers: Hypertension type: essential hypertension Qualified Code(s): I10 - Essential (primary) hypertension (11) Constipation -resolved -will stop lactulose Dispo -plan for discharge when renal function improves
[2018-04-04] MEDS ORDERED: SODIUM CHLORIDE 1,000 ML IV SCH (16:00)
[2018-04-04] MEDS ORDERED: ZOLPIDEM TARTRATE 5 MG TABLET PO ONE (21:55)
[2018-04-04] MEDS: ATORVASTATIN CA 20 MG TABLET (FP) PO SCH (22:04)
[2018-04-05] MEDS: DOCUSATE SODIUM 100 MG CAPSULE (FP) PO SCH ×3 (06:13→21:20)
[2018-04-05] MEDS: INSULIN SLIDING SCALE (NOVOLOG) 1 VIAL SQ SCH ×4 (06:13→21:27)
[2018-04-05 06:43] LABS: ANION GAP 10 MMOL/L (8-16); BLOOD UREA NITROGEN 98 mg/dL (7-18); CHLORIDE 95 mmol/L (98-107); CO2 26 mmol/L (21-32); CREATININE 2.4 mg/dL (0.55-1.3); GLUCOSE,RANDOM 159 mg/dL (74-106); MAGNESIUM 2.6 mg/dL (1.8-2.4); PHOSPHOROUS 3.8 mg/dL (2.5-4.9); POTASSIUM 4.6 mmol/L (3.5-5.1); SODIUM 131 mmol/L (136-145)
[2018-04-05 06:46] LABS: BASO % 0.4 % (0-2.0); EOS % 0.2 % (0-4.5); HEMATOCRIT 35.8 % (35.4-49); HEMOGLOBIN 11.4 GM/dL (11.7-16.9); LYMPH % 3.3 % (8-40); MCHC 31.8 g/dl (32.0-35.9); MEAN CELL VOLUME 94.5 fl (80-96); MEAN PLT VOLUME 10.5 fl (7.5-11.1); MONO % 8.2 % (3.8-10.2); NEUT % 87.9 % (42.8-82.8); PLATELET COUNT 157 K/MM3 (134-434); RBC 3.79 M/mm3 (4.00-5.60); RDW 17.1 % (11.9-15.9); WHITE BLOOD COUNT 17.6 K/mm3 (4.0-10.0)
--- NOTE | 2018-04-05 09:00 | PN ---
Progress Note, Physician Chief Complaint: sob History of Present Illness: feels worse. very sob last night, with orthopnea--slept very inclined. very weak muscles no cp, palpit syncope ex- cigs - Current Medication List Current Medications: Active Medications Aspirin (Ecotrin -) 81 mg PO DAILY [facility] Last Admin: 04/04/18 09:00 Dose: 81 mg Atorvastatin Calcium (Lipitor -) 20 mg PO HS [facility] Last Admin: 04/04/18 22:04 Dose: 20 mg Benzocaine/Menthol (Cepacol Lozenge -) 1 each MM PRN PRN PRN Reason: SORE THROAT Last Admin: 04/03/18 09:26 Dose: 1 each Budesonide/Formoterol Fumarate (Symbicort 80/4.5mcg -) 2 puff IH BID [facility] Last Admin: 04/04/18 22:08 Dose: 2 puff Cholecalciferol (Vitamin D3 -) 2,000 unit PO DAILY [facility] Last Admin: 04/04/18 09:01 Dose: 2,000 unit Cyclobenzaprine HCl (Flexeril -) 5 mg PO BID [facility] Last Admin: 04/04/18 22:02 Dose: 5 mg Docusate Sodium (Colace -) 100 mg PO TID [facility] Last Admin: 04/05/18 06:13 Dose: 100 mg Sodium Chloride (Normal Saline -) 1,000 mls @ 42 mls/hr IV ASDIR [facility] Stop: 04/05/18 15:49 Last Admin: 04/04/18 16:55 Dose: 42 mls/hr Insulin Aspart (Novolog Vial Sliding Scale -) 1 vial SQ [facility]; Protocol Last Admin: 04/05/18 06:13 Dose: 2 units Ipratropium [place] (Atrovent 0.02% Nebulizer -) 1 amp NEB Q6H PRN PRN Reason: DYSPEPSIA Stop: 04/09/18 12:06 Last Admin: 04/03/18 01:41 Dose: 1 amp Metoprolol Succinate (Toprol Xl -) 50 mg PO BID [facility] Last Admin: 04/04/18 22:04 Dose: 50 mg Metoprolol Tartrate (Lopressor Injection -) 5 mg IVPUSH Q4H PRN PRN Reason: TACHYCARDIA Last Admin: 04/01/18 21:40 Dose: 5 mg Oxycodone HCl (Roxicodone -) 10 mg PO Q6H PRN PRN Reason: PAIN LEVEL 6-10 Last Admin: 04/04/18 17:50 Dose: 10 mg Pantoprazole Sodium (Protonix -) 40 mg PO DAILY [facility] Last Admin: 04/04/18 09:34 Dose: 40 mg Prednisone (Deltasone -) 40 mg PO DAILY [facility] Last Admin: 04/04/18 09:00 Dose: 40 mg Psyllium Hydrophilic Mucilloid (Metamucil (Sugar-Free) -) 5.85 gm PO BID [facility] Last Admin: 04/04/18 22:07 Dose: Not Given Senna (Senna -) 2 tab PO HS PRN PRN Reason: CONSTIPATION - Objective Vital Signs: Vital Signs Temperature 98.4 F 04/05/18 06:00 Pulse Rate 64 04/05/18 06:00 Respiratory Rate 18 04/05/18 06:00 Blood Pressure 161/83 04/05/18 06:00 O2 Sat by Pulse Oximetry (%) 98 04/04/18 22:00 Constitutional: Yes: No Distress, Calm Eyes: No: Sclera Icterus HENT: No: Nasal Congestion Cardiovascular: Yes: Regular Rate and Rhythm, JVD (probable), S1, S2, Other ( PMI non diplaced). No: Gallop, Murmur Respiratory: Yes: CTA Bilaterally, Rales (L base). No: Accessory Muscle Use Gastrointestinal: Yes: Normal Bowel Sounds, Soft. No: Tenderness Musculoskeletal: Yes: Other (No kyphosis) Extremities: No: Cold Edema: Yes (1+ ankles) Integumentary: No: Jaundice Neurological: Yes: Alert, Oriented (x3) Psychiatric: No: Agitated Labs: CBC, BMP 04/05/18 05:30 04/05/18 05:30 INR, PTT INR 1.36 (0.83-1.09) H 03/28/18 07:15 Assessment/Plan ECG: AFL, intermittent V-S/V-P, + ST-Ts unchanged vs prior echo 06/2016: sev dec lvef, global hk, rv tds, trinity, mod-sev mr, mod tr, rvsp 50- 60 echo 06/2015: mild lve, mod-sev dec lvef, mod lae, nl rv size, mild dec rv fcn, mild-mod mr, mild tr, nl avr fcn, rvsp 30-40 mibi 06/2016 (pers): non-diagnostic STs; large area inferior/inferolateral/ lateral scar; no ischemia; severe LV cavity dilation; global HK with akinesis of inferior/inferolat/lateral allan; EF 16% mibi 09/2014: large inf scar, mod anteroapical ischemia, lvef 25% tele: AFL, [employer]/Vs a/p: 62 m hx copd, cabgx3 2012, bio avr 2012, pad s/p b/l sfa occlusions, syst chf s/p medtronic icd, htn, hld, a-tach, here with back pain, sob. pna, flu: -cont abx per ID acute on chronic systolic CHF exacerbation: -past dry wt here 187 lbs (recent discharge) -here with mild chf exacerbation likely worsened by flu/pna -03/30 was on lasix 80 po qd at home, weight stable, stable Cr, feels the same - increased lasix to 40 mg IV BID -03/31 Cr rising, change to lasix 40 mg IV daily -04/01: cont same iv lasix -04/02-: bun/cr rising, cxr shows less congestion, stopped iv lasix, monitoring cr trend before resuming po lasix -04/04: cr slightly better today, continue to hold lasix -04/05: remains signif above dry wt with no change for several days (199-200). JVD persists (note: this resolved during recent admit when well-diuresed). incr sob/orthopnea. creat improved vs peak, close to his baseline; BUN progressively rising here: ? steroids effect. needs diuresis. start lasix 80 iv bid today-- reassess in am. renal fxn may improve with diuresis--otherwise may need consider milrinone trial -cont bb. not on LESTER-I due to h/o hyperkalemia atrial flutter: -pt in AFL on ekg -CHADS VASC 4, warrants AC for cardioembolic prophylaxis. pt is at prohibitive risks of falls/head trauma at present (very frequent falls recently including head trauma, suspected LE weakness with mechanical falls etiology) will defer AC for now. Prior plan was for pt to f/u in office to discuss fall risk/ac further but he did not come to appt (often misses appts). Rec'd that he have PT eval while here to assess his fall status so can decide upon long term care social worker AC before leaves. - episodes of RVR likely more frequent in setting of PNA, flu. changed coreg to toprol 50 bid and hr improved, cont tele cad/hx of CABG 2012 -no recent angina/ischemia -trop chronically in intermediate range, no change in current values, trend is flat, ck nl, not c/w acs -cont prior cad med regimen: asa, statin, bb, ccb bio avr: -nl fcn on echo 06/20 mitral regurgitation: -likely functional MR, mild-mod on echo 06/19, then "mod-severe" when here 06/20 with suspected acute chf and pulm pressures up (though at risk for overestimation of MR severity on that echo report) -valve morphology not described (tethered leaflets?) -no murmur on exam -reassess MR severity on echo as outpt pad: -stable, no claudication, cont current cardiac meds s/p icd: -no shocks on check earlier this month -routine outpt monitoring htn: -bp stable -cont home meds
[2018-04-05] MEDS ORDERED: PT OWN MED DRAWER 7, Y5N ONE ×3 (10:06→21:17)
[2018-04-05] MEDS: CHOLECALCIFEROL (VITAMIN D3) 1,000 UNIT TABLET (FP) PO SCH (10:09)
[2018-04-05] MEDS: predniSONE 20 MG TABLET (UD) PO SCH (10:09)
[2018-04-05] MEDS: BUDESONIDE/FORMETEROL FUMARATE 80/4.5 mcg INHALER IH SCH ×2 (10:09→21:20)
[2018-04-05] MEDS: PANTOPRAZOLE 40 MG TABLET (FP) PO SCH (10:10)
[2018-04-05] MEDS: oxyCODONE HCL 5 MG TABLET PO PRN ×2 (10:10→17:45)
[2018-04-05] MEDS: CYCLOBENZAPRINE HCL 10 MG TABLET (FP) PO SCH ×2 (10:10→21:19)
[2018-04-05] MEDS: ASPIRIN COATED 81 MG TABLET.EC PO SCH (10:10)
[2018-04-05] MEDS: PSYLLIUM 5.85 GM PACKET PO SCH ×3 (10:14→21:28)
[2018-04-05] MEDS: FUROSEMIDE 40 MG/4 ML INJECTABLE VIAL IVPUSH SCH ×2 (10:23→14:00)
[2018-04-05 11:05] LABS: ACANTHOCYTES 1+; ANISOCYTOSIS 2+; MACROCYTOSIS 2+; OVALOCYTE 2+; PLATELET ESTIMATE DECREASED; TEAR DROP CELLS 2+
[2018-04-05] MEDS ORDERED: INSULIN SLIDING SCALE (NOVOLOG) 1 VIAL SQ ONE (12:20)
--- NOTE | 2018-04-05 12:41 | PN ---
Progress Note, Physician History of Present Illness: pulmonary alert,c/o increased sob,weakness,-cp. - Current Medication List Current Medications: Active Medications Aspirin (Ecotrin -) 81 mg PO DAILY [facility] Last Admin: 04/05/18 10:10 Dose: 81 mg Atorvastatin Calcium (Lipitor -) 20 mg PO HS [facility] Last Admin: 04/04/18 22:04 Dose: 20 mg Benzocaine/Menthol (Cepacol Lozenge -) 1 each MM PRN PRN PRN Reason: SORE THROAT Last Admin: 04/03/18 09:26 Dose: 1 each Budesonide/Formoterol Fumarate (Symbicort 80/4.5mcg -) 2 puff IH BID [facility] Last Admin: 04/05/18 10:09 Dose: 2 puff Cholecalciferol (Vitamin D3 -) 2,000 unit PO DAILY [facility] Last Admin: 04/05/18 10:09 Dose: 2,000 unit Cyclobenzaprine HCl (Flexeril -) 5 mg PO BID [facility] Last Admin: 04/05/18 10:10 Dose: 5 mg Docusate Sodium (Colace -) 100 mg PO TID [facility] Last Admin: 04/05/18 06:13 Dose: 100 mg Furosemide (Lasix Injection -) 80 mg IVPUSH BID@0600,1400 [facility] Stop: 04/05/18 14:01 Last Admin: 04/05/18 10:23 Dose: 80 mg Sodium Chloride (Normal Saline -) 1,000 mls @ 42 mls/hr IV ASDIR [facility] Stop: 04/05/18 15:49 Last Admin: 04/04/18 16:55 Dose: 42 mls/hr Insulin Aspart (Novolog Vial Sliding Scale -) 1 vial SQ ACHS [facility]; Protocol Last Admin: 04/05/18 12:26 Dose: 2 units Ipratropium [place] (Atrovent 0.02% Nebulizer -) 1 amp NEB Q6H PRN PRN Reason: DYSPEPSIA Stop: 04/09/18 12:06 Last Admin: 04/03/18 01:41 Dose: 1 amp Metoprolol Succinate (Toprol Xl -) 50 mg PO BID [facility] Last Admin: 04/05/18 10:09 Dose: 50 mg Metoprolol Tartrate (Lopressor Injection -) 5 mg IVPUSH Q4H PRN PRN Reason: TACHYCARDIA Last Admin: 12/27/18 21:40 Dose: 5 mg Oxycodone HCl (Roxicodone -) 10 mg PO Q6H PRN PRN Reason: PAIN LEVEL 6-10 Last Admin: 04/05/18 10:10 Dose: 10 mg Pantoprazole Sodium (Protonix -) 40 mg PO DAILY [facility] Last Admin: 04/05/18 10:10 Dose: 40 mg Prednisone (Deltasone -) 40 mg PO DAILY [facility] Last Admin: 04/05/18 10:09 Dose: 40 mg Psyllium Hydrophilic Mucilloid (Metamucil (Sugar-Free) -) 5.85 gm PO BID [facility] Last Admin: 04/05/18 10:14 Dose: 5.85 gm Senna (Senna -) 2 tab PO HS PRN PRN Reason: CONSTIPATION - Objective Vital Signs: Vital Signs Temperature 98.4 F 04/05/18 06:00 Pulse Rate 64 04/05/18 06:00 Respiratory Rate 18 04/05/18 06:00 Blood Pressure 161/83 04/05/18 06:00 O2 Sat by Pulse Oximetry (%) 98 04/04/18 22:00 Constitutional: Yes: Well Nourished, Calm Eyes: Yes: WNL HENT: Yes: WNL, Tonsillar Exudate Cardiovascular: Yes: Pulse Irregular, S1, S2 Respiratory: Yes: Rales (bibasialr rales) Gastrointestinal: Yes: Normal Bowel Sounds, Soft Extremities: Yes: WNL Edema: No Labs: CBC, BMP 04/05/18 05:30 04/05/18 05:30 INR, PTT INR 1.36 (0.83-1.09) H 03/28/18 07:15 Problem List - Problems (1) Acute on chronic respiratory failure with hypoxemia Code(s): J96.21 - ACUTE AND CHRONIC RESPIRATORY FAILURE WITH HYPOXIA (2) S/P CABG x 3 Code(s): Z95.1 - PRESENCE OF AORTOCORONARY BYPASS GRAFT (4) Troponin I above reference range Code(s): R74.8 - ABNORMAL LEVELS OF OTHER SERUM ENZYMES (5) Acute exacerbation of CHF (congestive heart failure) Code(s): I50.9 - HEART FAILURE, UNSPECIFIED Qualifiers: Heart failure type: combined systolic and diastolic Qualified Code(s): I50.43 - Acute on chronic combined systolic (congestive) and diastolic ( congestive) heart failure (6) Influenza A Code(s): J10.1 - FLU DUE TO OTH IDENT INFLUENZA VIRUS W OTH RESP MANIFEST (7) Afib Code(s): I48.91 - UNSPECIFIED ATRIAL FIBRILLATION Qualifiers: Atrial fibrillation type: chronic Qualified Code(s): I48.2 - Chronic atrial fibrillation (8) COPD exacerbation Code(s): J44.1 - CHRONIC OBSTRUCTIVE PULMONARY DISEASE W (ACUTE) EXACERBATION (9) Cough Code(s): R05 - COUGH (10) Pneumonia Code(s): J18.9 - PNEUMONIA, UNSPECIFIED ORGANISM (11) S/P AVR Code(s): Z95.2 - PRESENCE OF PROSTHETIC HEART VALVE (12) Shortness of breath Code(s): R06.02 - SHORTNESS OF BREATH (13) Weakness Code(s): R53.1 - WEAKNESS (14) CAD (coronary artery disease) Code(s): I25.10 - ATHSCL HEART DISEASE OF [place] CORONARY ARTERY W/O ANG PCTRS Qualifiers: [place] vs. transplanted heart: [place] heart Associated angina: without angina (15) CHF (congestive heart failure) Code(s): I50.9 - HEART FAILURE, UNSPECIFIED Qualifiers: Heart failure type: systolic Heart failure chronicity: chronic Qualified Code(s): I50.22 - Chronic systolic (congestive) heart failure (16) Chronic renal insufficiency, stage III (moderate) Code(s): N18.3 - CHRONIC KIDNEY DISEASE, STAGE 3 (MODERATE) (17) Coronary artery disease Code(s): I25.10 - ATHSCL HEART DISEASE OF [place] CORONARY ARTERY W/O ANG PCTRS Qualifiers: Coronary Disease-Associated Artery/Lesion type: bypass graft, other Associated angina: with other forms of angina Qualified Code(s): I25.798 - Atherosclerosis of other coronary artery bypass graft(s) with other forms of angina pectoris (18) HTN (hypertension) Code(s): I10 - ESSENTIAL (PRIMARY) HYPERTENSION Qualifiers: Hypertension type: essential hypertension Qualified Code(s): I10 - Essential (primary) hypertension (19) Peripheral vascular disease Code(s): I73.9 - PERIPHERAL VASCULAR DISEASE, UNSPECIFIED (20) Lactate blood increase Code(s): R79.89 - OTHER SPECIFIED ABNORMAL FINDINGS OF BLOOD CHEMISTRY Assessment/Plan IMP ACUTE ON CHRONIC HYPOXEMIC RESPIRATORY FAILURE ACUTE ON CHRONIC CHF S/P AICD COPD O2 DEPENDENT + TROPONIN ASHD S/P CABG S/P AVR ? PNEUMONIA ATYPICAL CP ACUTE ON CKD WORSENING PULMONARY HTN INFLUENZA A AFIB ELEVATED LACTATE LEVEL IMPROVED PLAN IV LASIX PER CARDIOLOGY O2 INHALED BRONCHODILATORS F/U CHEST X-RAYS MONITOR LYTES,RENAL FUNCTION DR [place] Problem List - Problems (1) Acute on chronic respiratory failure with hypoxemia Code(s): J96.21 - ACUTE AND CHRONIC RESPIRATORY FAILURE WITH HYPOXIA (2) S/P CABG x 3 Code(s): Z95.1 - PRESENCE OF AORTOCORONARY BYPASS GRAFT (4) Troponin I above reference range Code(s): R74.8 - ABNORMAL LEVELS OF OTHER SERUM ENZYMES (5) Acute exacerbation of CHF (congestive heart failure) Code(s): I50.9 - HEART FAILURE, UNSPECIFIED Qualifiers: (6) Influenza A Code(s): J10.1 - FLU DUE TO OTH IDENT INFLUENZA VIRUS W OTH RESP MANIFEST (7) Afib Code(s): I48.91 - UNSPECIFIED ATRIAL FIBRILLATION Qualifiers: Atrial fibrillation type: chronic Qualified Code(s): I48.2 - Chronic atrial fibrillation (8) COPD exacerbation Code(s): J44.1 - CHRONIC OBSTRUCTIVE PULMONARY DISEASE W (ACUTE) EXACERBATION (9) Cough Code(s): R05 - COUGH (10) Pneumonia Code(s): J18.9 - PNEUMONIA, UNSPECIFIED ORGANISM (11) S/P AVR Code(s): Z95.2 - PRESENCE OF PROSTHETIC HEART VALVE (12) Shortness of breath Code(s): R06.02 - SHORTNESS OF BREATH (13) Weakness Code(s): R53.1 - WEAKNESS (14) CAD (coronary artery disease) Code(s): I25.10 - ATHSCL HEART DISEASE OF [place] CORONARY ARTERY W/O ANG PCTRS Qualifiers: [place] vs. transplanted heart: [place] heart Associated angina: without angina (15) CHF (congestive heart failure) Code(s): I50.9 - HEART FAILURE, UNSPECIFIED Qualifiers: Heart failure type: systolic Heart failure chronicity: chronic Qualified Code(s): I50.22 - Chronic systolic (congestive) heart failure (16) Chronic renal insufficiency, stage III (moderate) Code(s): N18.3 - CHRONIC KIDNEY DISEASE, STAGE 3 (MODERATE) (17) Coronary artery disease Code(s): I25.10 - ATHSCL HEART DISEASE OF [place] CORONARY ARTERY W/O ANG PCTRS Qualifiers: Coronary Disease-Associated Artery/Lesion type: bypass graft, other Associated angina: with other forms of angina Qualified Code(s): I25.798 - Atherosclerosis of other coronary artery bypass graft(s) with other forms of angina pectoris (18) HTN (hypertension) Code(s): I10 - ESSENTIAL (PRIMARY) HYPERTENSION Qualifiers: Hypertension type: essential hypertension Qualified Code(s): I10 - Essential (primary) hypertension (19) Peripheral vascular disease Code(s): I73.9 - PERIPHERAL VASCULAR DISEASE, UNSPECIFIED (20) Lactate blood increase Code(s): R79.89 - OTHER SPECIFIED ABNORMAL FINDINGS OF BLOOD CHEMISTRY
--- NOTE | 2018-04-05 12:48 | CONSULT ---
Consultation: REQUESTING PROVIDER: Dr. Morales CONSULT REQUEST: We have been asked to medically evaluate this patient for ERROL. HISTORY OF PRESENT ILLNESS: Neprhology consult Pt is a 62 y/o M with PMH COPD on 3L home O2, HFpEF, CAD, ICD placement, PAD, DM, Atrial fibrillation not on A/c due to risk of fall who presented to ED with complaint of dizziness and SOB. Symptoms began approximately 1 week ago and have been intermittent. Denies room spinning. Pt states he's never had it before 1 week ago. Uses 4 pillows to sleep. Limited exercise capacity. States he is unsure whether he has leg swelling. Denies CP. Pt denies any urinary symptoms: urgency, frequency, difficulty, dark/bloody urine. No abd pain. Pt was admitted for workup and treatment of PNA, COPD, CHF exacerbation Pt found to have elevated Offset Duplicating Machine Operator. Offset Duplicating Machine Operator 2.0 on 03/28 and increased to 2.9 on 04/03. Has dropped to 2.4 today. Pt states he feels worse today than yesterday. REVIEW OF SYSTEMS: CONSTITUTIONAL: Absent: fever, chills, diaphoresis, generalized weakness, malaise, loss of appetite, weight change HEENT: Absent: rhinorrhea, nasal congestion, throat pain, throat swelling, difficulty swallowing, mouth swelling, ear pain, eye pain, visual changes CARDIOVASCULAR: Absent: chest pain, syncope, palpitations, irregular heart rate, lightheadedness , peripheral edema RESPIRATORY: shortness of breath Absent: cough, , dyspnea with exertion, orthopnea, wheezing, stridor, hemoptysis GASTROINTESTINAL: Absent: abdominal pain, abdominal distension, nausea, vomiting, diarrhea, constipation, melena, hematochezia GENITOURINARY: Absent: dysuria, frequency, urgency, hesitancy, hematuria, flank pain, genital pain MUSCULOSKELETAL: Absent: myalgia, arthralgia, joint swelling, back pain, neck pain SKIN: Absent: rash, itching, pallor HEMATOLOGIC/IMMUNOLOGIC: Absent: easy bleeding, easy bruising, lymphadenopathy, frequent infections ENDOCRINE: Absent: unexplained weight gain, unexplained weight loss, heat intolerance, cold intolerance NEUROLOGIC: dizziness Absent: headache, focal weakness or paresthesias, , unsteady gait, seizure, mental status changes, bladder or bowel incontinence PSYCHIATRIC: Absent: anxiety, depression, suicidal or homicidal ideation, hallucinations. PHYSICAL EXAMINATION Vital Signs - 24 hr 04/04/18 04/04/18 04/05/18 14:10 22:00 02:00 Temperature 97.3 F L 98 F 97.6 F Pulse Rate 65 63 67 Respiratory 16 18 18 Rate Blood Pressure 122/66 142/68 148/98 O2 Sat by Pulse 98 Oximetry (%) 04/05/18 06:00 Temperature 98.4 F Pulse Rate 64 Respiratory 18 Rate Blood Pressure 161/83 O2 Sat by Pulse Oximetry (%) Gen: NAD, lying in bed at incline HEENT: NCAT, EOMI NECK: supple, no JVD noted Cardio: irregular, normal s1s2, no mrg appreciated Pulm: bibasilar rales L > R Abd: nondistedned, soft, normal bs nontender, no organomegally appreciated. Ext: 2+ edema b/l, 1+ distal pulses Laboratory Results - last 24 hr 04/03/18 04/04/18 04/04/18 10:13 14:40 16:54 WBC RBC Hgb Hct MCV MCH MCHC RDW Plt Count MPV Absolute Neuts (auto) Neutrophils % Neutrophils % (Manual) Band Neutrophils % Lymphocytes % Lymphocytes % (Manual) Monocytes % Monocytes % (Manual) Eosinophils % Eosinophils % (Manual) Basophils % Basophils % (Manual) Myelocytes % (Man) Promyelocytes % (Man) Blast Cells % (Manual) Nucleated RBC % Metamyelocytes Hypochromia Platelet Estimate Polychromasia Poikilocytosis Anisocytosis Microcytosis Macrocytosis Tear Drop Cells Ovalocytes Acanthocytes (Spur) Sodium 132 L Potassium 5.0 Chloride 93 L Carbon Dioxide 28 Anion Gap 11 BUN 97 H Creatinine 2.5 H Creat Clearance w eGFR 26.30 POC Glucometer 139 272 Random Glucose 290 H Calcium 8.1 L Phosphorus Magnesium 04/04/18 04/05/18 04/05/18 20:31 05:30 05:30 WBC 17.6 H RBC 3.79 L Hgb 11.4 L Hct 35.8 MCV 94.5 MCH 30.0 MCHC 31.8 L RDW 17.1 H Plt Count 157 MPV 10.5 Absolute Neuts (auto) 15.5 H Neutrophils % 87.9 H Neutrophils % (Manual) 77.8 Band Neutrophils % 0.0 Lymphocytes % 3.3 L Lymphocytes % (Manual) 3.0 L Monocytes % 8.2 Monocytes % (Manual) 11 H D Eosinophils % 0.2 D Eosinophils % (Manual) 0.0 Basophils % 0.4 Basophils % (Manual) 0.0 Myelocytes % (Man) 0 D Promyelocytes % (Man) 0 Blast Cells % (Manual) 0 Nucleated RBC % 1 H Metamyelocytes 0 Hypochromia 0 Platelet Estimate Decreased Polychromasia 2+ Poikilocytosis 1+ Anisocytosis 2+ Microcytosis 0 Macrocytosis 2+ Tear Drop Cells 2+ Ovalocytes 2+ Acanthocytes (Spur) 1+ Sodium 131 L Potassium 4.6 Chloride 95 L Carbon Dioxide 26 Anion Gap 10 BUN 98 H Creatinine 2.4 H Creat Clearance w eGFR 27.57 POC Glucometer 312 Random Glucose 159 H Calcium 8.0 L Phosphorus 3.8 Magnesium 2.6 H 04/05/18 04/05/18 05:59 11:37 WBC RBC Hgb Hct MCV MCH MCHC RDW Plt Count MPV Absolute Neuts (auto) Neutrophils % Neutrophils % (Manual) Band Neutrophils % Lymphocytes % Lymphocytes % (Manual) Monocytes % Monocytes % (Manual) Eosinophils % Eosinophils % (Manual) Basophils % Basophils % (Manual) Myelocytes % (Man) Promyelocytes % (Man) Blast Cells % (Manual) Nucleated RBC % Metamyelocytes Hypochromia Platelet Estimate Polychromasia Poikilocytosis Anisocytosis Microcytosis Macrocytosis Tear Drop Cells Ovalocytes Acanthocytes (Spur) Sodium Potassium Chloride Carbon Dioxide Anion Gap BUN Creatinine Creat Clearance w eGFR POC Glucometer 181 182 Random Glucose Calcium Phosphorus Magnesium Active Medications Generic Name Dose Route Start Last Admin Trade Name Freq PRN Reason Stop Dose Admin Aspirin 81 mg 03/29/18 10:00 04/05/18 10:10 Ecotrin - PO 81 mg DAILY MANJU Administration Atorvastatin Calcium 20 mg 03/28/18 22:00 04/04/18 22:04 Lipitor - PO 20 mg HS MANJU Administration Benzocaine/Menthol 1 each 04/03/18 08:00 04/03/18 09:26 Cepacol Lozenge - MM 1 each PRN PRN Administration SORE THROAT Budesonide/Formoterol Fumarate 2 puff 04/02/18 22:00 04/05/18 10:09 Symbicort 80/4.5mcg - IH 2 puff BID MANJU Administration Cholecalciferol 2,000 unit 03/29/18 10:00 04/05/18 10:09 Vitamin D3 - PO 2,000 unit DAILY MANJU Administration Cyclobenzaprine HCl 5 mg 03/28/18 22:00 04/05/18 10:10 Flexeril - PO 5 mg BID MANJU Administration Docusate Sodium 100 mg 03/28/18 14:00 04/05/18 06:13 Colace - PO 100 mg TID MANJU Administration Furosemide 80 mg 04/05/18 10:30 04/05/18 10:23 Lasix Injection - IVPUSH 04/05/18 14:01 80 mg BID@0600,1400 MANJU Administration Sodium Chloride 1,000 mls @ 42 mls/hr 04/04/18 16:00 04/04/18 16:55 Normal Saline - IV 04/05/18 15:49 42 mls/hr ASDIR MANJU Administration Insulin Aspart 1 vial 03/28/18 12:23 04/05/18 12:26 Novolog Vial Sliding Scale - SQ 2 units ACHS MANJU Administration Protocol Ipratropium [place] 1 amp 04/02/18 12:06 04/03/18 01:41 Atrovent 0.02% Nebulizer - NEB 04/09/18 12:06 1 amp Q6H PRN Administration DYSPEPSIA Metoprolol Succinate 50 mg 04/02/18 22:00 04/05/18 10:09 Toprol Xl - PO 50 mg BID MANJU Administration Metoprolol Tartrate 5 mg 03/31/18 11:02 04/01/18 21:40 Lopressor Injection - IVPUSH 5 mg Q4H PRN Administration TACHYCARDIA Oxycodone HCl 10 mg 04/04/18 16:55 04/05/18 10:10 Roxicodone - PO 10 mg Q6H PRN Administration PAIN LEVEL 6-10 Pantoprazole Sodium 40 mg 03/29/18 10:00 04/05/18 10:10 Protonix - PO 40 mg DAILY MANJU Administration Prednisone 40 mg 04/02/18 10:00 04/05/18 10:09 Deltasone - PO 40 mg DAILY MANJU Administration Psyllium Hydrophilic Mucilloid 5.85 gm 03/28/18 22:00 04/05/18 10:14 Metamucil (Sugar-Free) - PO 5.85 gm BID MANJU Administration Senna 2 tab 04/02/18 09:45 Senna - PO HS PRN CONSTIPATION ASSESSMENT/PLAN: Pt is a 62 y/o M with PMH COPD on 3L home O2, HFpEF, CAD, ICD placement, PAD, DM , Atrial fibrillation not on A/c due to risk of fall, and former smoking historywho presented brought by family for SOB. Is being treated for PNA/CHF/ COPD. Nephrology was called to evaluate for ERROL. #ERROL -Offset Duplicating Machine Operator increased from 2.0 (03/30) to 2.9 today. -ERROL per KDIGO guidelines: incraese in Offset Duplicating Machine Operator of 1.5x baseline in 1 week and increase > 0.3 in 48 hrs -No new meds noted on 03/31 when Offset Duplicating Machine Operator began increasing -Possibly prerenal 2/2 to CHF -On lasix 03/28-04/01. Held on 04/02. NS blous 04/04. Lasix resumed today at 80 bid per cardio. 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 -Will follow BMP #PNA -ID on board. -Pt stable off abx #Mild Hyponatremia -glc has been mildly elevated. Corrected Na 132 -Hist prior episodes -likely 2/2 CHF -pt restarted on lasix today. F/u BMP. #COPD -pulm on board -c/w O2, prednisone taper, bronchodilators #HFpEF -cardio on board -holding fluids at this time -pt with sob this am -per cards, cont bb. Hold LESTER-I due to h/o hyperkalemia #HTN -pressures have been stable this hospital visit #DM -c/w ISS #AF/flutter -c/w toprol per cardio -holding AC as pt is a fall risk Dispo: We will continue to follow the patient. Thank you for this consultative opportunity. Visit type - Emergency Visit Emergency Visit: No - New Patient This patient is new to me today: Yes Date on this admission: 04/05/18 - Critical Care Critical Care patient: No
--- NOTE | 2018-04-05 15:12 | PN ---
Teaching Attending Note Name of Resident: Paula Yeung ATTENDING PHYSICIAN STATEMENT I saw and evaluated the patient. I reviewed the resident's note and discussed the case with the resident. I agree with the resident's findings and plan as documented. SUBJECTIVE: Mr Owen says he feels bad. Unclear, cannot tell me if he is short of breath. Denies cp and n/v. OBJECTIVE: Gen: nad Pulm: bibasilar crackles, minor CV: irreg irreg but rate controlled, no m/r/g Abd: +bs, s/nt/nd Ext: 1+ BLE pitting edema ASSESSMENT AND PLAN: (1) Acute on chronic respiratory failure with hypoxemia Assessment/Plan: -at baseline Code(s): J96.21 - ACUTE AND CHRONIC RESPIRATORY FAILURE WITH HYPOXIA (2) Influenza A Assessment/Plan: -s/p full course of tamiflu Code(s): J10.1 - FLU DUE TO OTH IDENT INFLUENZA VIRUS W OTH RESP MANIFEST (3) Pneumonia Assessment/Plan: -finished full course of antibiotics Code(s): J18.9 - PNEUMONIA, UNSPECIFIED ORGANISM Qualifiers: Pneumonia type: due to unspecified organism Laterality: left Lung location: lower lobe of lung Qualified Code(s): J18.1 - Lobar pneumonia, unspecified organism (4) Acute exacerbation of CHF (congestive heart failure) Assessment/Plan: -seen by cardiology -given lasix 80mg IV x1 -continue lasix per cardiology/nephrology -not on ACEI/ARBs secondary to hyperkalemia Code(s): I50.9 - HEART FAILURE, UNSPECIFIED Qualifiers: Heart failure type: combined systolic and diastolic Qualified Code(s): I50.43 - Acute on chronic combined systolic (congestive) and diastolic ( congestive) heart failure (5) COPD exacerbation Assessment/Plan: -continue bronchodilators -continue prednisone taper Code(s): J44.1 - CHRONIC OBSTRUCTIVE PULMONARY DISEASE W (ACUTE) EXACERBATION (6) Afib Assessment/Plan: -controlled today -continue toprol xl 50mg bid Code(s): I48.91 - UNSPECIFIED ATRIAL FIBRILLATION Qualifiers: Atrial fibrillation type: chronic Qualified Code(s): I48.2 - Chronic atrial fibrillation (7) Acute on chronic renal insufficiency Assessment/Plan: -creatinine improved with hydration -however became fluid overloaded -uremia possible secondary to steroids -case d/w nephrology -continue diuresis Code(s): N28.9 - DISORDER OF KIDNEY AND URETER, UNSPECIFIED; N18.9 - CHRONIC KIDNEY DISEASE, UNSPECIFIED (8) Coronary artery disease Assessment/Plan: -cardiology following -continue home regimen Code(s): I25.10 - ATHSCL HEART DISEASE OF [place] CORONARY ARTERY W/O ANG PCTRS Qualifiers: Coronary Disease-Associated Artery/Lesion type: bypass graft, other Associated angina: with other forms of angina Qualified Code(s): I25.798 - Atherosclerosis of other coronary artery bypass graft(s) with other forms of angina pectoris (9) Diabetes mellitus with insulin therapy Assessment/Plan: -diabetic diet and SSI -elevated secondary to steroids Code(s): E11.9 - TYPE 2 DIABETES MELLITUS WITHOUT COMPLICATIONS; Z79.4 - HALFWAY (CURRENT) USE OF INSULIN (10) HTN (hypertension) Assessment/Plan: -controlled Code(s): I10 - ESSENTIAL (PRIMARY) HYPERTENSION Qualifiers: Hypertension type: essential hypertension Qualified Code(s): I10 - Essential (primary) hypertension (11) Constipation -resolved -will stop lactulose Problem List - Problems (1) Acute on chronic respiratory failure with hypoxemia Code(s): J96.21 - ACUTE AND CHRONIC RESPIRATORY FAILURE WITH HYPOXIA (2) Influenza A Code(s): J10.1 - FLU DUE TO OTH IDENT INFLUENZA VIRUS W OTH RESP MANIFEST (3) Pneumonia Code(s): J18.9 - PNEUMONIA, UNSPECIFIED ORGANISM Qualifiers: Pneumonia type: due to unspecified organism Laterality: left Lung location: lower lobe of lung Qualified Code(s): J18.1 - Lobar pneumonia, unspecified organism (4) Acute exacerbation of CHF (congestive heart failure) Code(s): I50.9 - HEART FAILURE, UNSPECIFIED Qualifiers: Heart failure type: combined systolic and diastolic Qualified Code(s): I50.43 - Acute on chronic combined systolic (congestive) and diastolic ( congestive) heart failure (5) COPD exacerbation Code(s): J44.1 - CHRONIC OBSTRUCTIVE PULMONARY DISEASE W (ACUTE) EXACERBATION (6) Afib Code(s): I48.91 - UNSPECIFIED ATRIAL FIBRILLATION Qualifiers: Atrial fibrillation type: chronic Qualified Code(s): I48.2 - Chronic atrial fibrillation (7) Acute on chronic renal insufficiency Code(s): N28.9 - DISORDER OF KIDNEY AND URETER, UNSPECIFIED; N18.9 - CHRONIC KIDNEY DISEASE, UNSPECIFIED (8) Coronary artery disease Code(s): I25.10 - ATHSCL HEART DISEASE OF [place] CORONARY ARTERY W/O ANG PCTRS Qualifiers: Coronary Disease-Associated Artery/Lesion type: bypass graft, other Associated angina: with other forms of angina Qualified Code(s): I25.798 - Atherosclerosis of other coronary artery bypass graft(s) with other forms of angina pectoris (9) Diabetes mellitus with insulin therapy Code(s): E11.9 - TYPE 2 DIABETES MELLITUS WITHOUT COMPLICATIONS; Z79.4 - 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
--- NOTE | 2018-04-05 16:11 | PN ---
Teaching Attending Note Name of Resident: Javad Clements (Nephrology) ATTENDING PHYSICIAN STATEMENT I saw and evaluated the patient. I reviewed the resident's note and discussed the case with the resident. I agree with the resident's findings and plan as documented. Nephrology Pt is a 62 year old make with pmhx of CKD, CAD and CHF who presents with weakness and shortness of breath. He was initially diuresed however his renal function started to worsen. Diuretics were held for a few days. He was short of breath this morning and they were restarted. He denies dysuria or hematuria. pmhx ckd cad chf copd dm htn allergies fish, codiene and gabapentin social hx denies family hx non contrib ros shortness of breath Current Medications Generic Name Dose Route Start Last Admin Trade Name Freq PRN Reason Stop Dose Admin Aspirin 81 mg 03/29/18 10:00 04/05/18 10:10 Ecotrin - PO 81 mg DAILY MANJU Administration Atorvastatin Calcium 20 mg 03/28/18 22:00 04/04/18 22:04 Lipitor - PO 20 mg HS MANJU Administration Benzocaine/Menthol 1 each 04/03/18 08:00 04/03/18 09:26 Cepacol Lozenge - MM 1 each PRN PRN Administration SORE THROAT Budesonide/Formoterol Fumarate 2 puff 04/02/18 22:00 04/05/18 10:09 Symbicort 80/4.5mcg - IH 2 puff BID MANJU Administration Cholecalciferol 2,000 unit 03/29/18 10:00 04/05/18 10:09 Vitamin D3 - PO 2,000 unit DAILY MANJU Administration Cyclobenzaprine HCl 5 mg 03/28/18 22:00 04/05/18 10:10 Flexeril - PO 5 mg BID MANJU Administration Docusate Sodium 100 mg 03/28/18 14:00 04/05/18 14:29 Colace - PO 100 mg TID MANJU Administration Insulin Aspart 1 vial 03/28/18 12:23 04/05/18 12:26 Novolog Vial Sliding Scale - SQ 2 units ACHS MANJU Administration Protocol Ipratropium [place] 1 amp 04/02/18 12:06 04/03/18 01:41 Atrovent 0.02% Nebulizer - NEB 04/09/18 12:06 1 amp Q6H PRN Administration DYSPEPSIA Metoprolol Succinate 50 mg 04/02/18 22:00 04/05/18 10:09 Toprol Xl - PO 50 mg BID MANJU Administration Metoprolol Tartrate 5 mg 03/31/18 11:02 04/01/18 21:40 Lopressor Injection - IVPUSH 5 mg Q4H PRN Administration TACHYCARDIA Oxycodone HCl 10 mg 04/04/18 16:55 04/05/18 10:10 Roxicodone - PO 10 mg Q6H PRN Administration PAIN LEVEL 6-10 Pantoprazole Sodium 40 mg 03/29/18 10:00 04/05/18 10:10 Protonix - PO 40 mg DAILY MANJU Administration Prednisone 40 mg 04/02/18 10:00 04/05/18 10:09 Deltasone - PO 40 mg DAILY MANJU Administration Psyllium Hydrophilic Mucilloid 5.85 gm 03/28/18 22:00 04/05/18 10:14 Metamucil (Sugar-Free) - PO 5.85 gm BID MANJU Administration Senna 2 tab 04/02/18 09:45 Senna - PO HS PRN CONSTIPATION Last Vital Signs Temp Pulse Resp BP Pulse Ox 97.3 F L 74 18 134/58 L 98 04/05/18 14:15 04/05/18 14:15 04/05/18 14:15 04/05/18 14:15 04/05/18 09:00 Laboratory Tests 01/07/18 01/08/18 01/10/18 07:00 06:00 06:00 Hgb Sodium Potassium Chloride BUN Creatinine 1.9 H 2.0 H 2.5 H Urine Protein Urine Blood 01/12/18 01/13/18 02/12/18 06:00 06:00 21:20 Hgb Sodium Potassium Chloride BUN Creatinine 2.3 H 2.1 H 2.5 H Urine Protein Urine Blood 02/13/18 02/13/18 03/31/18 03:20 05:30 11:45 Hgb Sodium Potassium Chloride BUN Creatinine 2.6 H Urine Protein 3+ H D 2+ H Urine Blood Negative 04/03/18 04/04/18 04/04/18 06:00 06:00 06:00 Hgb 12.2 Sodium Potassium Chloride BUN Creatinine 2.9 H 2.7 H Urine Protein Urine Blood 04/04/18 04/05/18 04/05/18 14:40 05:30 05:30 Hgb 11.4 L Sodium 131 L Potassium 4.6 Chloride 95 L BUN 98 H Creatinine 2.5 H 2.4 H Urine Protein Urine Blood cardio s1s2 pulm rhonchi and on on nc 02 GI soft, obese abd ext plus 2 edema neuro awake and alert skin neg rash circ pos pulses Impression 1. CKD 2. proteinuria 3. CAD 4. CHF 5. COPD 6. DM 7. HTN 8. azotemia/fior 9. 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
--- NOTE | 2018-04-05 17:09 | PN ---
Physical Exam: SUBJECTIVE: Patient seen and examined at bed side this morning. Complaining of shortness of breath. Denies chest pain, palpitations, abdominal pain, nausea or vomiting. No acute overnight events. OBJECTIVE: Vital Signs Period Temp Pulse Resp BP Sys/El Pulse Ox Last 24 Hr 97.3 F-98.4 F 62-74 18-18 134-161/58-98 98-98 GENERAL: Middle aged obese male, lying in bed, Awake, alert, and fully oriented , in no acute distress, nasal canula @ 2L. HEAD: Normal with no signs of trauma. EYES:EOM intact, no pallor or icterus. EARS, NOSE, THROAT: Ears normal, moist mucous membranes. NECK:Supple. LUNGS: B/L Breath sounds equal, bibasilar crackles , No accessory muscle use. HEART: Irregularly irregular, rate, normal S1 and S2 with systolic murmur. ABDOMEN: Soft, tenderness in the left lower quadrant, no organomegaly. MUSCULOSKELETAL: Normal range of motion at all joints. No bony deformities or tenderness. No CVA tenderness. UPPER EXTREMITIES: 2+ pulses, warm, well-perfused. No cyanosis. No clubbing. No peripheral edema. LOWER EXTREMITIES: 2+ pulses, warm, well-perfused. No calf tenderness. Pitting edema b/l-improved. NEUROLOGICAL: No facial droop. Normal speech. Gait not observed. PSYCHIATRIC: Cooperative. Good eye contact. Appropriate mood and affect. SKIN: Warm, dry, normal turgor, no rashes or lesions noted, normal capillary refill. Laboratory Results - last 24 hr 04/03/18 04/04/18 04/04/18 10:13 16:54 20:31 WBC RBC Hgb Hct MCV MCH MCHC RDW Plt Count MPV Absolute Neuts (auto) Neutrophils % Neutrophils % (Manual) Band Neutrophils % Lymphocytes % Lymphocytes % (Manual) Monocytes % Monocytes % (Manual) Eosinophils % Eosinophils % (Manual) Basophils % Basophils % (Manual) Myelocytes % (Man) Promyelocytes % (Man) Blast Cells % (Manual) Nucleated RBC % Metamyelocytes Hypochromia Platelet Estimate Polychromasia Poikilocytosis Anisocytosis Microcytosis Macrocytosis Tear Drop Cells Ovalocytes Acanthocytes (Spur) Sodium Potassium Chloride Carbon Dioxide Anion Gap BUN Creatinine Creat Clearance w eGFR POC Glucometer 139 272 312 Random Glucose Calcium Phosphorus Magnesium 04/05/18 04/05/18 04/05/18 05:30 05:30 05:59 WBC 17.6 H RBC 3.79 L Hgb 11.4 L Hct 35.8 MCV 94.5 MCH 30.0 MCHC 31.8 L RDW 17.1 H Plt Count 157 MPV 10.5 Absolute Neuts (auto) 15.5 H Neutrophils % 87.9 H Neutrophils % (Manual) 77.8 Band Neutrophils % 0.0 Lymphocytes % 3.3 L Lymphocytes % (Manual) 3.0 L Monocytes % 8.2 Monocytes % (Manual) 11 H D Eosinophils % 0.2 D Eosinophils % (Manual) 0.0 Basophils % 0.4 Basophils % (Manual) 0.0 Myelocytes % (Man) 0 D Promyelocytes % (Man) 0 Blast Cells % (Manual) 0 Nucleated RBC % 1 H Metamyelocytes 0 Hypochromia 0 Platelet Estimate Decreased Polychromasia 2+ Poikilocytosis 1+ Anisocytosis 2+ Microcytosis 0 Macrocytosis 2+ Tear Drop Cells 2+ Ovalocytes 2+ Acanthocytes (Spur) 1+ Sodium 131 L Potassium 4.6 Chloride 95 L Carbon Dioxide 26 Anion Gap 10 BUN 98 H Creatinine 2.4 H Creat Clearance w eGFR 27.57 POC Glucometer 181 Random Glucose 159 H Calcium 8.0 L Phosphorus 3.8 Magnesium 2.6 H 04/05/18 11:37 WBC RBC Hgb Hct MCV MCH MCHC RDW Plt Count MPV Absolute Neuts (auto) Neutrophils % Neutrophils % (Manual) Band Neutrophils % Lymphocytes % Lymphocytes % (Manual) Monocytes % Monocytes % (Manual) Eosinophils % Eosinophils % (Manual) Basophils % Basophils % (Manual) Myelocytes % (Man) Promyelocytes % (Man) Blast Cells % (Manual) Nucleated RBC % Metamyelocytes Hypochromia Platelet Estimate Polychromasia Poikilocytosis Anisocytosis Microcytosis Macrocytosis Tear Drop Cells Ovalocytes Acanthocytes (Spur) Sodium Potassium Chloride Carbon Dioxide Anion Gap BUN Creatinine Creat Clearance w eGFR POC Glucometer 182 Random Glucose Calcium Phosphorus Magnesium Active Medications Generic Name Dose Route Start Last Admin Trade Name Freq PRN Reason Stop Dose Admin Aspirin 81 mg 03/29/18 10:00 04/05/18 10:10 Ecotrin - PO 81 mg DAILY MANJU Administration Atorvastatin Calcium 20 mg 03/28/18 22:00 04/04/18 22:04 Lipitor - PO 20 mg HS MANJU Administration Benzocaine/Menthol 1 each 04/03/18 08:00 04/03/18 09:26 Cepacol Lozenge - MM 1 each PRN PRN Administration SORE THROAT Budesonide/Formoterol Fumarate 2 puff 04/02/18 22:00 04/05/18 10:09 Symbicort 80/4.5mcg - IH 2 puff BID MANJU Administration Cholecalciferol 2,000 unit 03/29/18 10:00 04/05/18 10:09 Vitamin D3 - PO 2,000 unit DAILY MANJU Administration Cyclobenzaprine HCl 5 mg 03/28/18 22:00 04/05/18 10:10 Flexeril - PO 5 mg BID MANJU Administration Docusate Sodium 100 mg 03/28/18 14:00 04/05/18 14:29 Colace - PO 100 mg TID MANJU Administration Insulin Aspart 1 vial 03/28/18 12:23 04/05/18 12:26 Novolog Vial Sliding Scale - SQ 2 units ACHS MANJU Administration Protocol Ipratropium [place] 1 amp 04/02/18 12:06 04/03/18 01:41 Atrovent 0.02% Nebulizer - NEB 04/09/18 12:06 1 amp Q6H PRN Administration DYSPEPSIA Metoprolol Succinate 50 mg 04/02/18 22:00 04/05/18 10:09 Toprol Xl - PO 50 mg BID MANJU Administration Metoprolol Tartrate 5 mg 03/31/18 11:02 04/01/18 21:40 Lopressor Injection - IVPUSH 5 mg Q4H PRN Administration TACHYCARDIA Oxycodone HCl 10 mg 04/04/18 16:55 04/05/18 10:10 Roxicodone - PO 10 mg Q6H PRN Administration PAIN LEVEL 6-10 Pantoprazole Sodium 40 mg 03/29/18 10:00 04/05/18 10:10 Protonix - PO 40 mg DAILY MANJU Administration Prednisone 40 mg 04/02/18 10:00 04/05/18 10:09 Deltasone - PO 40 mg DAILY MANJU Administration Psyllium Hydrophilic Mucilloid 5.85 gm 03/28/18 22:00 04/05/18 10:14 Metamucil (Sugar-Free) - PO 5.85 gm BID MANJU Administration Senna 2 tab 04/02/18 09:45 Senna - PO HS PRN CONSTIPATION ASSESSMENT/PLAN: Patient is a 62 year old male with significant past medical history of COPD on 3L home O2, pEFHF, CAD, ICD placement, PAD, DM, Atrial fibrillation not on A/c due to risk of fall was brought in to the ED by family members due to shortness of breath. # CKD creatinine 2.4 today (baseline 2-2.1). Rising BUN 98, on admission BUN was 29. Could be from Steroid use (now at tapering dose) Appreciate Renal consult. Continue Lasix 80 mg PO BID. Repeat bmp in AM Fluid restriction Avoid Nephrotoxic drugs # Abdominal pain -resolved. # Sinus Tachycardia Continue Lopressor 50mg BID as per cardio. IV Metoprolol 5mg Q4H PRN Discontinue albuterol/duoneb as it might also cause tachycardia. Started on Ipratropium and Symbicort. Continue to monitor in tele. # Acute hypoxic respiratory failure likely secondary to CHF/COPD exacerbation superimposed by Pneumonia and Flu- Resolved Completed Tamiflu course. Changed IV steriods to PO Prednisone 40 mg Daily # Elevated troponins likely from [place] ischemia- # Prolonged Qtc 582 on admission Avoid any Qtc prolonging agents # Normocytic anemia H/H stable. likely from CKD Iron studies: High ferritin, normal Iron. B12 and Folate high. # Atrial fibrillation CHADsVASc score of 4. Not on a/c due to risk of fall. PT to evaluate. # Hypertension-controlled Changed coreg to Metoprolol 50 BID IV Metoprolol 5mg Q4H PRN for tachycardia. # FEN Not on IV fluids due to volume overloaded. Electrolytes WNL Diabetic diet/fat controlled # Prophylaxis For DVT: On Heparin 5000 IU sq TID FoR GI: On Protonix 40mg Daily # Code status: Full Code # Dispo:Admit to tele inpatient. Duration of stay unknown. Illness, Investigation and Plan of care explained to the patient. He verbalized understanding. Case discussed with Dr. Morales. Problem List - Problems (1) Acute exacerbation of CHF (congestive heart failure) Code(s): I50.9 - HEART FAILURE, UNSPECIFIED Qualifiers: Heart failure type: combined systolic and diastolic Qualified Code(s): I50.43 - Acute on chronic combined systolic (congestive) and diastolic ( congestive) heart failure (2) Influenza A Code(s): J10.1 - FLU DUE TO OTH IDENT INFLUENZA VIRUS W OTH RESP MANIFEST (3) Neck pain on right side Code(s): M54.2 - CERVICALGIA (4) Respiratory distress Code(s): R06.00 - DYSPNEA, UNSPECIFIED (5) COPD (chronic obstructive pulmonary disease) Code(s): J44.9 - CHRONIC OBSTRUCTIVE PULMONARY DISEASE, UNSPECIFIED (6) ERROL (acute kidney injury) Code(s): N17.9 - ACUTE KIDNEY FAILURE, UNSPECIFIED (7) Afib Code(s): I48.91 - UNSPECIFIED ATRIAL FIBRILLATION Qualifiers: Atrial fibrillation type: chronic Qualified Code(s): I48.2 - Chronic atrial fibrillation Visit type - Emergency Visit Emergency Visit: Yes ED Registration Date: 03/28/18 Care time: The patient presented to the Emergency Department on the above date and was hospitalized for further evaluation of their emergent condition. - New Patient This patient is new to me today: No - Critical Care Critical Care patient: No - Discharge Referral Referred to [facility] Med [facility] No
--- NOTE | 2018-04-05 18:23 | PN ---
Progress Note, Physician History of Present Illness: stable no new issues - Current Medication List Current Medications: Active Medications Aspirin (Ecotrin -) 81 mg PO DAILY [facility] Last Admin: 04/05/18 10:10 Dose: 81 mg Atorvastatin Calcium (Lipitor -) 20 mg PO HS [facility] Last Admin: 04/04/18 22:04 Dose: 20 mg Benzocaine/Menthol (Cepacol Lozenge -) 1 each MM PRN PRN PRN Reason: SORE THROAT Last Admin: 04/03/18 09:26 Dose: 1 each Budesonide/Formoterol Fumarate (Symbicort 80/4.5mcg -) 2 puff IH BID [facility] Last Admin: 04/05/18 10:09 Dose: 2 puff Cholecalciferol (Vitamin D3 -) 2,000 unit PO DAILY [facility] Last Admin: 04/05/18 10:09 Dose: 2,000 unit Cyclobenzaprine HCl (Flexeril -) 5 mg PO BID [facility] Last Admin: 04/05/18 10:10 Dose: 5 mg Docusate Sodium (Colace -) 100 mg PO TID [facility] Last Admin: 04/05/18 14:29 Dose: 100 mg Furosemide (Lasix -) 80 mg PO DAILY [facility] Insulin Aspart (Novolog Vial Sliding Scale -) 1 vial SQ ACHS [facility]; Protocol Last Admin: 04/05/18 17:16 Dose: 4 units Ipratropium [place] (Atrovent 0.02% Nebulizer -) 1 amp NEB Q6H PRN PRN Reason: DYSPEPSIA Stop: 04/09/18 12:06 Last Admin: 04/03/18 01:41 Dose: 1 amp Metoprolol Succinate (Toprol Xl -) 50 mg PO BID [facility] Last Admin: 04/05/18 10:09 Dose: 50 mg Metoprolol Tartrate (Lopressor Injection -) 5 mg IVPUSH Q4H PRN PRN Reason: TACHYCARDIA Last Admin: 04/01/18 21:40 Dose: 5 mg Oxycodone HCl (Roxicodone -) 10 mg PO Q6H PRN PRN Reason: PAIN LEVEL 6-10 Last Admin: 04/05/18 17:45 Dose: 10 mg Pantoprazole Sodium (Protonix -) 40 mg PO DAILY [facility] Last Admin: 04/05/18 10:10 Dose: 40 mg Prednisone (Deltasone -) 40 mg PO DAILY [facility] Last Admin: 04/05/18 10:09 Dose: 40 mg Psyllium Hydrophilic Mucilloid (Metamucil (Sugar-Free) -) 5.85 gm PO BID [facility] Last Admin: 04/05/18 10:14 Dose: 5.85 gm Senna (Senna -) 2 tab PO HS PRN PRN Reason: CONSTIPATION - Objective Vital Signs: Vital Signs Temperature 97.3 F L 04/05/18 14:15 Pulse Rate 74 04/05/18 14:15 Respiratory Rate 18 04/05/18 14:15 Blood Pressure 134/58 L 04/05/18 14:15 O2 Sat by Pulse Oximetry (%) 98 04/05/18 09:00 Constitutional: Yes: No Distress, Calm Cardiovascular: Yes: S1, S2 Respiratory: Yes: Regular, On Nasal O2 Gastrointestinal: Yes: Normal Bowel Sounds, Soft Musculoskeletal: Yes: WNL Extremities: Yes: WNL Neurological: Yes: Alert, Oriented Psychiatric: Yes: Alert, Oriented Labs: CBC, BMP 04/05/18 05:30 04/05/18 05:30 INR, PTT INR 1.36 (0.83-1.09) H 03/28/18 07:15 Assessment/Plan Problem List - Problems (1) Acute exacerbation of CHF (congestive heart failure) Code(s): I50.9 - HEART FAILURE, UNSPECIFIED Qualifiers: (2) Influenza A Code(s): J10.1 - FLU DUE TO OTH IDENT INFLUENZA VIRUS W OTH RESP MANIFEST (3) Respiratory distress Code(s): R06.00 - DYSPNEA, UNSPECIFIED (4) COPD (chronic obstructive pulmonary disease) Code(s): J44.9 - CHRONIC OBSTRUCTIVE PULMONARY DISEASE, UNSPECIFIED (5) Afib Code(s): I48.91 - UNSPECIFIED ATRIAL FIBRILLATION Qualifiers: Atrial fibrillation type: chronic Qualified Code(s): I48.2 - Chronic atrial fibrillation (6) Chronic respiratory failure Code(s): J96.10 - CHRONIC RESPIRATORY FAILURE, UNSP W HYPOXIA OR HYPERCAPNIA (7) Pneumonia Code(s): J18.9 - PNEUMONIA, UNSPECIFIED ORGANISM Qualifiers: Pneumonia type: due to unspecified organism Laterality: left Lung location: lower lobe of lung Qualified Code(s): J18.1 - Lobar pneumonia, unspecified organism (8) S/P AVR Code(s): Z95.2 - PRESENCE OF PROSTHETIC HEART VALVE (9) CAD (coronary artery disease) Code(s): I25.10 - ATHSCL HEART DISEASE OF [place] CORONARY ARTERY W/O ANG PCTRS Qualifiers: [place] vs. transplanted heart: [place] heart Associated angina: without angina (10) COPD (chronic obstructive pulmonary disease) Code(s): J44.9 - CHRONIC OBSTRUCTIVE PULMONARY DISEASE, UNSPECIFIED Qualifiers: COPD type: COPD with acute exacerbation Qualified Code(s): J44.1 - Chronic obstructive pulmonary disease with (acute) exacerbation (11) Chronic kidney disease (CKD) Code(s): N18.9 - CHRONIC KIDNEY DISEASE, UNSPECIFIED Qualifiers: Chronic kidney disease stage: stage 3 (moderate) Qualified Code(s): N18.3 - Chronic kidney disease, stage 3 (moderate) (12) Diabetes mellitus with chronic kidney disease Code(s): E11.22 - TYPE 2 DIABETES MELLITUS W DIABETIC CHRONIC KIDNEY DISEASE; N18.9 - CHRONIC KIDNEY DISEASE, UNSPECIFIED Qualifiers: Diabetes mellitus type: type 2 Chronic kidney disease stage: stage 3 ( moderate) (13) Peripheral vascular disease Code(s): I73.9 - PERIPHERAL VASCULAR DISEASE, UNSPECIFIED (15) Acute on chronic respiratory failure with hypoxemia Code(s): J96.21 - ACUTE AND CHRONIC RESPIRATORY FAILURE WITH HYPOXIA Assessment/Plan 62 y.o. male with PMH of COPD on home O2, CHF, CAD s/p CABG, AICD, bioprosthetic AVR, MR, Atrial Fibrillation, CKD, HTN, DM and PVD presenting with SOB/tachynea, chest discomfort, leukocytosis, lactic acidosis, pulmonary congestion. Recently admitted to the hospital Influenza A Possible HCAP Sepsis Acute on chronic CHF COPD CKD DM CAD s/p CABG s/p AICD s/p AVR MR AFIB plan stable off of abx incentive abby rest as per the team patient doing well
[2018-04-05] MEDS: ATORVASTATIN CA 20 MG TABLET (FP) PO SCH (21:19)
[2018-04-06] MEDS: DOCUSATE SODIUM 100 MG CAPSULE (FP) PO SCH ×3 (05:18→21:02)
[2018-04-06] MEDS: oxyCODONE HCL 5 MG TABLET PO PRN ×3 (05:36→21:35)
[2018-04-06] MEDS: INSULIN SLIDING SCALE (NOVOLOG) 1 VIAL SQ SCH ×4 (06:05→21:00)
[2018-04-06 06:07] LABS: HEMATOCRIT 37.6 % (35.4-49); HEMOGLOBIN 11.9 GM/dL (11.7-16.9); RBC 3.92 M/mm3 (4.00-5.60); WHITE BLOOD COUNT 15.4 K/mm3 (4.0-10.0)
[2018-04-06 06:08] LABS: MCH 30.3 pg (25.7-33.7); MCHC 31.6 g/dl (32.0-35.9); MEAN PLT VOLUME 10.6 fl (7.5-11.1); PLATELET COUNT 143 K/MM3 (134-434); RDW 17.6 % (11.9-15.9)
[2018-04-06 07:21] LABS: ANION GAP 12 MMOL/L (8-16); BLOOD UREA NITROGEN 93 mg/dL (7-18); CALCIUM 8.3 mg/dL (8.5-10.1); CHLORIDE 93 mmol/L (98-107); CO2 28 mmol/L (21-32); CREATININE 2.3 mg/dL (0.55-1.3); GLUCOSE,RANDOM 121 mg/dL (74-106); POTASSIUM 4.4 mmol/L (3.5-5.1); SODIUM 132 mmol/L (136-145)
--- NOTE | 2018-04-06 08:43 | PN ---
Progress Note, Physician Chief Complaint: sob History of Present Illness: "i'm flipping out. don't know if it's day or night." can't say if sob better than yest--+ orthopnea again last night (slept with signif incline) no palpit, cp ex cigs - Current Medication List Current Medications: Active Medications Aspirin (Ecotrin -) 81 mg PO DAILY [facility] Last Admin: 04/05/18 10:10 Dose: 81 mg Atorvastatin Calcium (Lipitor -) 20 mg PO HS [facility] Last Admin: 04/05/18 21:19 Dose: 20 mg Benzocaine/Menthol (Cepacol Lozenge -) 1 each MM PRN PRN PRN Reason: SORE THROAT Last Admin: 04/03/18 09:26 Dose: 1 each Budesonide/Formoterol Fumarate (Symbicort 80/4.5mcg -) 2 puff IH BID [facility] Last Admin: 04/05/18 21:20 Dose: 2 puff Cholecalciferol (Vitamin D3 -) 2,000 unit PO DAILY [facility] Last Admin: 04/05/18 10:09 Dose: 2,000 unit Cyclobenzaprine HCl (Flexeril -) 5 mg PO BID [facility] Last Admin: 04/05/18 21:19 Dose: 5 mg Docusate Sodium (Colace -) 100 mg PO TID [facility] Last Admin: 04/06/18 05:18 Dose: 100 mg Furosemide (Lasix -) 80 mg PO DAILY [facility] Insulin Aspart (Novolog Vial Sliding Scale -) 1 vial SQ ACHS [facility]; Protocol Last Admin: 04/06/18 06:05 Dose: Not Given Ipratropium [place] (Atrovent 0.02% Nebulizer -) 1 amp NEB Q6H PRN PRN Reason: DYSPEPSIA Stop: 04/09/18 12:06 Last Admin: 04/03/18 01:41 Dose: 1 amp Metoprolol Succinate (Toprol Xl -) 50 mg PO BID [facility] Last Admin: 04/05/18 21:19 Dose: 50 mg Metoprolol Tartrate (Lopressor Injection -) 5 mg IVPUSH Q4H PRN PRN Reason: TACHYCARDIA Last Admin: 04/01/18 21:40 Dose: 5 mg Oxycodone HCl (Roxicodone -) 10 mg PO Q6H PRN PRN Reason: PAIN LEVEL 6-10 Last Admin: 04/06/18 05:36 Dose: 10 mg Pantoprazole Sodium (Protonix -) 40 mg PO DAILY [facility] Last Admin: 04/05/18 10:10 Dose: 40 mg Prednisone (Deltasone -) 40 mg PO DAILY [facility] Last Admin: 04/05/18 10:09 Dose: 40 mg Psyllium Hydrophilic Mucilloid (Metamucil (Sugar-Free) -) 5.85 gm PO BID [facility] Last Admin: 04/05/18 21:28 Dose: Not Given Senna (Senna -) 2 tab PO HS PRN PRN Reason: CONSTIPATION - Objective Vital Signs: Vital Signs Temperature 97.2 F L 04/06/18 05:49 Pulse Rate 94 H 04/06/18 05:49 Respiratory Rate 20 04/06/18 05:49 Blood Pressure 160/97 04/06/18 05:49 O2 Sat by Pulse Oximetry (%) 93 L 04/05/18 21:00 Constitutional: Yes: No Distress, Calm Eyes: No: Sclera Icterus HENT: No: Nasal Congestion Cardiovascular: Yes: Pulse Irregular, S1, S2, Other (PMI non diplaced). No: Gallop, Murmur Respiratory: Yes: CTA Bilaterally, Rales (L base). No: Accessory Muscle Use Gastrointestinal: Yes: Normal Bowel Sounds, Soft. No: Tenderness Musculoskeletal: Yes: Other (No kyphosis) Extremities: No: Cold Edema: Yes (1+ ankles) Integumentary: No: Jaundice Neurological: Yes: Alert, Oriented (x3) Psychiatric: No: Agitated Labs: CBC, BMP 04/06/18 06:00 04/06/18 06:00 INR, PTT INR 1.36 (0.83-1.09) H 03/28/18 07:15 Assessment/Plan ECG: AFL, intermittent V-S/V-P, + ST-Ts unchanged vs prior CT chest: small bilat effusions. scarring L base unchanged echo 06/2016: sev dec lvef, global hk, rv tds, trinity, mod-sev mr, mod tr, rvsp 50- 60 echo 06/2015: mild lve, mod-sev dec lvef, mod lae, nl rv size, mild dec rv fcn, mild-mod mr, mild tr, nl avr fcn, rvsp 30-40 mibi 06/2016 (pers): non-diagnostic STs; large area inferior/inferolateral/ lateral scar; no ischemia; severe LV cavity dilation; global HK with akinesis of inferior/inferolat/lateral allan; EF 16% mibi 09/2014: large inf scar, mod anteroapical ischemia, lvef 25% tele: AFL, Vs >> [employer]. HRs good a/p: 62 m hx copd, cabgx3 2012, bio avr 2012, pad s/p b/l sfa occlusions, syst chf s/p medtronic icd, htn, hld, a-tach, here with back pain, sob. pna, flu: -cont abx per ID acute on chronic systolic CHF exacerbation: -past dry wt here 187 lbs (recent discharge) -here with mild chf exacerbation likely worsened by flu/pna -03/30 was on lasix 80 po qd at home, weight stable, stable Cr, feels the same - increased lasix to 40 mg IV BID -03/31 Cr rising, change to lasix 40 mg IV daily -04/01: cont same iv lasix -04/02-: bun/cr rising, cxr shows less congestion, stopped iv lasix, monitoring cr trend before resuming po lasix -04/04: cr slightly better today, continue to hold lasix -04/05: remains signif above dry wt with no change for several days (199-200). JVD persists (note: this resolved during recent admit when well-diuresed). incr sob/orthopnea. creat improved vs peak, close to his baseline; BUN progressively rising here: ? steroids effect. needs diuresis. start lasix 80 iv bid today-- reassess in am. renal fxn may improve with diuresis--otherwise may need consider milrinone trial -04/06: only given one dose of lasix 80 iv yesterday due to computer and pharmacy issues with timing. wt down 1 lb, remains above recent dry wt. ongoing orthopnea : ? component from influenza--though no acute parenchymal findings on CT chest makes PNA unlikely. renal fxn stable. not collecting urine accurately, pt can't say if incr'd diuresis yest with lasix 80mg. give lasix 80 iv bid today, strict UOP assessment (d/w'd RN these instrxns) -cont metopr succ 50 bid. not on LESTER-I due to h/o hyperkalemia (hence defer entresto as well) atrial flutter: -pt in AFL on ekg -CHADS VASC 4, warrants AC for cardioembolic prophylaxis. pt is at prohibitive risks of falls/head trauma at present (very frequent falls recently including head trauma, suspected LE weakness with mechanical falls etiology) will defer AC for now. Prior plan was for pt to f/u in office to discuss fall risk/ac further but he did not come to appt (often misses appts). Rec'd that he have PT eval while here to assess his fall status so can decide upon longterm AC before leaves. - episodes of RVR likely more frequent in setting of PNA, flu. changed coreg to toprol 50 bid and hr improved, cont tele cad/hx of CABG 2012 -no recent angina/ischemia -trop chronically in intermediate range, no change in current values, trend is flat, ck nl, not c/w acs -cont prior cad med regimen: asa, statin, bb, ccb bio avr: -nl fcn on echo 06/20 mitral regurgitation: -likely functional MR, mild-mod on echo 06/19, then "mod-severe" when here 06/20 with suspected acute chf and pulm pressures up (though at risk for overestimation of MR severity on that echo report) -valve morphology not described (tethered leaflets?) -no murmur on exam -reassess MR severity on echo as outpt pad: -stable, no claudication, cont current cardiac meds s/p icd: -no shocks on check earlier this month -routine outpt monitoring htn: -bp stable -cont home meds
[2018-04-06] MEDS: CHOLECALCIFEROL (VITAMIN D3) 1,000 UNIT TABLET (FP) PO SCH (09:38)
[2018-04-06] MEDS: predniSONE 20 MG TABLET (UD) PO SCH (09:39)
[2018-04-06] MEDS: CYCLOBENZAPRINE HCL 10 MG TABLET (FP) PO SCH ×2 (09:39→21:01)
[2018-04-06] MEDS: PSYLLIUM 5.85 GM PACKET PO SCH ×2 (09:40→21:03)
[2018-04-06] MEDS: PANTOPRAZOLE 40 MG TABLET (FP) PO SCH (09:40)
[2018-04-06] MEDS: ASPIRIN COATED 81 MG TABLET.EC PO SCH (09:40)
[2018-04-06] MEDS: BUDESONIDE/FORMETEROL FUMARATE 80/4.5 mcg INHALER IH SCH ×2 (09:42→21:01)
[2018-04-06] MEDS ORDERED: FUROSEMIDE 40 MG TABLET (FP) PO SCH (10:00)
[2018-04-06] MEDS ORDERED: predniSONE 20 MG TABLET (UD) PO SCH (10:01)
--- NOTE | 2018-04-06 10:06 | PN ---
Progress Note, Physician Chief Complaint: Mr Owen says he feels terrible today. Says he is going "up and down". Says he is still short of breath. No cp or n/v. - Current Medication List Current Medications: Active Medications Aspirin (Ecotrin -) 81 mg PO DAILY [facility] Last Admin: 04/06/18 09:40 Dose: 81 mg Atorvastatin Calcium (Lipitor -) 20 mg PO HS [facility] Last Admin: 04/05/18 21:19 Dose: 20 mg Benzocaine/Menthol (Cepacol Lozenge -) 1 each MM PRN PRN PRN Reason: SORE THROAT Last Admin: 04/03/18 09:26 Dose: 1 each Budesonide/Formoterol Fumarate (Symbicort 80/4.5mcg -) 2 puff IH BID [facility] Last Admin: 04/06/18 09:42 Dose: 2 puff Cholecalciferol (Vitamin D3 -) 2,000 unit PO DAILY [facility] Last Admin: 04/06/18 09:38 Dose: 2,000 unit Cyclobenzaprine HCl (Flexeril -) 5 mg PO BID [facility] Last Admin: 04/06/18 09:39 Dose: 5 mg Docusate Sodium (Colace -) 100 mg PO TID [facility] Last Admin: 04/06/18 05:18 Dose: 100 mg Furosemide (Lasix Injection -) 80 mg IVPUSH BID@0600,1400 [facility] Insulin Aspart (Novolog Vial Sliding Scale -) 1 vial SQ [facility]; Protocol Last Admin: 04/06/18 06:05 Dose: Not Given Ipratropium [place] (Atrovent 0.02% Nebulizer -) 1 amp NEB Q6H PRN PRN Reason: DYSPEPSIA Stop: 04/09/18 12:06 Last Admin: 04/03/18 01:41 Dose: 1 amp Metoprolol Succinate (Toprol Xl -) 50 mg PO BID [facility] Last Admin: 04/06/18 09:41 Dose: 50 mg Metoprolol Tartrate (Lopressor Injection -) 5 mg IVPUSH Q4H PRN PRN Reason: TACHYCARDIA Last Admin: 04/01/18 21:40 Dose: 5 mg Oxycodone HCl (Roxicodone -) 10 mg PO Q6H PRN PRN Reason: PAIN LEVEL 6-10 Last Admin: 04/06/18 05:36 Dose: 10 mg Pantoprazole Sodium (Protonix -) 40 mg PO DAILY [facility] Last Admin: 04/06/18 09:40 Dose: 40 mg Prednisone (Deltasone -) 20 mg PO DAILY [facility] Psyllium Hydrophilic Mucilloid (Metamucil (Sugar-Free) -) 5.85 gm PO BID [facility] Last Admin: 04/06/18 09:40 Dose: 5.85 gm Senna (Senna -) 2 tab PO HS PRN PRN Reason: CONSTIPATION - Objective Vital Signs: Vital Signs Temperature 36.2 C L 04/06/18 05:49 Pulse Rate 94 H 04/06/18 05:49 Respiratory Rate 20 04/06/18 05:49 Blood Pressure 160/97 04/06/18 05:49 O2 Sat by Pulse Oximetry (%) 93 L 04/05/18 21:00 Constitutional: Yes: Well Nourished, No Distress, Calm Cardiovascular: Yes: Pulse Irregular. No: Tachycardia, Gallop, Murmur, Rub Respiratory: Yes: Regular, CTA Bilaterally, On Nasal O2. No: Rales, Rhonchi, Wheezes Gastrointestinal: Yes: Normal Bowel Sounds, Soft. No: Distention, Tenderness Extremities: Yes: WNL Edema: No Labs: CBC, BMP 04/06/18 06:00 04/06/18 06:00 INR, PTT INR 1.36 (0.83-1.09) H 03/28/18 07:15 Problem List - Problems (1) Acute on chronic respiratory failure with hypoxemia Code(s): J96.21 - ACUTE AND CHRONIC RESPIRATORY FAILURE WITH HYPOXIA (2) Influenza A Code(s): J10.1 - FLU DUE TO OTH IDENT INFLUENZA VIRUS W OTH RESP MANIFEST (3) Pneumonia Code(s): J18.9 - PNEUMONIA, UNSPECIFIED ORGANISM Qualifiers: Pneumonia type: due to unspecified organism Laterality: left Lung location: lower lobe of lung Qualified Code(s): J18.1 - Lobar pneumonia, unspecified organism (4) Acute exacerbation of CHF (congestive heart failure) Code(s): I50.9 - HEART FAILURE, UNSPECIFIED Qualifiers: Heart failure type: combined systolic and diastolic Qualified Code(s): I50.43 - Acute on chronic combined systolic (congestive) and diastolic ( congestive) heart failure (5) COPD exacerbation Code(s): J44.1 - CHRONIC OBSTRUCTIVE PULMONARY DISEASE W (ACUTE) EXACERBATION (6) Afib Code(s): I48.91 - UNSPECIFIED ATRIAL FIBRILLATION Qualifiers: Atrial fibrillation type: chronic Qualified Code(s): I48.2 - Chronic atrial fibrillation (7) Acute on chronic renal insufficiency Code(s): N28.9 - DISORDER OF KIDNEY AND URETER, UNSPECIFIED; N18.9 - CHRONIC KIDNEY DISEASE, UNSPECIFIED (8) Coronary artery disease Code(s): I25.10 - ATHSCL HEART DISEASE OF [place] CORONARY ARTERY W/O ANG PCTRS Qualifiers: Coronary Disease-Associated Artery/Lesion type: bypass graft, other Associated angina: with other forms of angina Qualified Code(s): I25.798 - Atherosclerosis of other coronary artery bypass graft(s) with other forms of angina pectoris (9) Diabetes mellitus with insulin therapy Code(s): E11.9 - TYPE 2 DIABETES MELLITUS WITHOUT COMPLICATIONS; Z79.4 - LONG-TERM (CURRENT) USE OF 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 Assessment/Plan (1) Acute on chronic respiratory failure with hypoxemia Assessment/Plan: -at baseline Code(s): J96.21 - ACUTE AND CHRONIC RESPIRATORY FAILURE WITH HYPOXIA (2) Influenza A Assessment/Plan: -s/p full course of tamiflu Code(s): J10.1 - FLU DUE TO OTH IDENT INFLUENZA VIRUS W OTH RESP MANIFEST (3) Pneumonia Assessment/Plan: -finished full course of antibiotics Code(s): J18.9 - PNEUMONIA, UNSPECIFIED ORGANISM Qualifiers: Pneumonia type: due to unspecified organism Laterality: left Lung location: lower lobe of lung Qualified Code(s): J18.1 - Lobar pneumonia, unspecified organism (4) Acute exacerbation of CHF (congestive heart failure) Assessment/Plan: -seen by cardiology -continue lasix 80mg IV bid -fluid restriction -continue lasix per cardiology/nephrology -not on ACEI/ARBs secondary to hyperkalemia Code(s): I50.9 - HEART FAILURE, UNSPECIFIED Qualifiers: Heart failure type: combined systolic and diastolic Qualified Code(s): I50.43 - Acute on chronic combined systolic (congestive) and diastolic ( congestive) heart failure (5) COPD exacerbation Assessment/Plan: -continue bronchodilators -continue prednisone taper -decrease prednisone to 20mg tomorrow Code(s): J44.1 - CHRONIC OBSTRUCTIVE PULMONARY DISEASE W (ACUTE) EXACERBATION (6) Afib Assessment/Plan: -controlled today -continue toprol xl 50mg bid Code(s): I48.91 - UNSPECIFIED ATRIAL FIBRILLATION Qualifiers: Atrial fibrillation type: chronic Qualified Code(s): I48.2 - Chronic atrial fibrillation (7) Acute on chronic renal insufficiency Assessment/Plan: -nephrology following -diuresis as above -decrease steroids and monitor BUN -creatinine slightly increased today but will continue diuretics to control CHF Code(s): N28.9 - DISORDER OF KIDNEY AND URETER, UNSPECIFIED; N18.9 - CHRONIC KIDNEY DISEASE, UNSPECIFIED (8) Coronary artery disease Assessment/Plan: -cardiology following -continue home regimen Code(s): I25.10 - ATHSCL HEART DISEASE OF [place] CORONARY ARTERY W/O ANG PCTRS Qualifiers: Coronary Disease-Associated Artery/Lesion type: bypass graft, other Associated angina: with other forms of angina Qualified Code(s): I25.798 - Atherosclerosis of other coronary artery bypass graft(s) with other forms of angina pectoris (9) Diabetes mellitus with insulin therapy Assessment/Plan: -diabetic diet and SSI -elevated secondary to steroids Code(s): E11.9 - TYPE 2 DIABETES MELLITUS WITHOUT COMPLICATIONS; Z79.4 - VENEER TAPER (CURRENT) USE OF INSULIN (10) HTN (hypertension) Assessment/Plan: -controlled Code(s): I10 - ESSENTIAL (PRIMARY) HYPERTENSION Qualifiers: Hypertension type: essential hypertension Qualified Code(s): I10 - Essential (primary) hypertension (11) Constipation -resolved
[2018-04-06] MEDS: FUROSEMIDE 40 MG/4 ML INJECTABLE VIAL IVPUSH SCH ×2 (10:22→15:37)
--- NOTE | 2018-04-06 11:55 | PN ---
Progress Note (short form) - Note Progress Note: PULMONARY c/o constant dizziness starting yesterday. States breathing is better. Vital Signs Period Temp Pulse Resp BP Sys/El Pulse Ox Last 24 Hr 97.2 F-98.2 F 74-110 18-20 107-163/58-97 93-94 Gen: NAD in chair Heart: RRR Lung: decreased breath sounds at the bases Abd: soft, nontender Ext: no edema CBC, BMP 04/06/18 06:00 04/06/18 06:00 Active Medications Aspirin (Ecotrin -) 81 mg PO DAILY [facility] Last Admin: 04/06/18 09:40 Dose: 81 mg Atorvastatin Calcium (Lipitor -) 20 mg PO HS [facility] Last Admin: 04/05/18 21:19 Dose: 20 mg Benzocaine/Menthol (Cepacol Lozenge -) 1 each MM PRN PRN PRN Reason: SORE THROAT Last Admin: 04/03/18 09:26 Dose: 1 each Budesonide/Formoterol Fumarate (Symbicort 80/4.5mcg -) 2 puff IH BID [facility] Last Admin: 04/06/18 09:42 Dose: 2 puff Cholecalciferol (Vitamin D3 -) 2,000 unit PO DAILY [facility] Last Admin: 04/06/18 09:38 Dose: 2,000 unit Cyclobenzaprine HCl (Flexeril -) 5 mg PO BID [facility] Last Admin: 04/06/18 09:39 Dose: 5 mg Docusate Sodium (Colace -) 100 mg PO TID [facility] Last Admin: 04/06/18 05:18 Dose: 100 mg Furosemide (Lasix Injection -) 80 mg IVPUSH BID@0600,1400 [facility] Last Admin: 04/06/18 10:22 Dose: 80 mg Insulin Aspart (Novolog Vial Sliding Scale -) 1 vial SQ ACHS [facility]; Protocol Last Admin: 04/06/18 06:05 Dose: Not Given Ipratropium [place] (Atrovent 0.02% Nebulizer -) 1 amp NEB Q6H PRN PRN Reason: DYSPEPSIA Stop: 04/09/18 12:06 Last Admin: 04/03/18 01:41 Dose: 1 amp Metoprolol Succinate (Toprol Xl -) 50 mg PO BID [facility] Last Admin: 04/06/18 09:41 Dose: 50 mg Metoprolol Tartrate (Lopressor Injection -) 5 mg IVPUSH Q4H PRN PRN Reason: TACHYCARDIA Last Admin: 04/01/18 21:40 Dose: 5 mg Oxycodone HCl (Roxicodone -) 10 mg PO Q6H PRN PRN Reason: PAIN LEVEL 6-10 Last Admin: 04/06/18 05:36 Dose: 10 mg Pantoprazole Sodium (Protonix -) 40 mg PO DAILY [facility] Last Admin: 04/06/18 09:40 Dose: 40 mg Prednisone (Deltasone -) 20 mg PO DAILY [facility] Psyllium Hydrophilic Mucilloid (Metamucil (Sugar-Free) -) 5.85 gm PO BID [facility] Last Admin: 04/06/18 09:40 Dose: 5.85 gm Senna (Senna -) 2 tab PO HS PRN PRN Reason: CONSTIPATION A/P Acute on Chronic Hypoxic Respiratory Failure Influenza A Acute on Chronic Systolic Heart Failure Mitral Regurgitation Acute COPD Exacerbation +Troponins likely [place] Ischemia Atrial Flutter h/o AVR Pulmonary HTN - consider neuro eval - O2 to keep SpO2>90% - prednisone taper - inhaled bronchodilators - lasix - monitor urine output, creatinine - rate control - DVT prophylaxis
--- NOTE | 2018-04-06 13:51 | PN ---
Progress Note, Physician History of Present Illness: feels very anxious like anxiety attack - Current Medication List Current Medications: Active Medications Aspirin (Ecotrin -) 81 mg PO DAILY [facility] Last Admin: 04/06/18 09:40 Dose: 81 mg Atorvastatin Calcium (Lipitor -) 20 mg PO HS [facility] Last Admin: 04/05/18 21:19 Dose: 20 mg Benzocaine/Menthol (Cepacol Lozenge -) 1 each MM PRN PRN PRN Reason: SORE THROAT Last Admin: 04/03/18 09:26 Dose: 1 each Budesonide/Formoterol Fumarate (Symbicort 80/4.5mcg -) 2 puff IH BID [facility] Last Admin: 04/06/18 09:42 Dose: 2 puff Cholecalciferol (Vitamin D3 -) 2,000 unit PO DAILY [facility] Last Admin: 04/06/18 09:38 Dose: 2,000 unit Cyclobenzaprine HCl (Flexeril -) 5 mg PO BID [facility] Last Admin: 04/06/18 09:39 Dose: 5 mg Docusate Sodium (Colace -) 100 mg PO TID [facility] Last Admin: 04/06/18 05:18 Dose: 100 mg Furosemide (Lasix Injection -) 80 mg IVPUSH BID@0600,1400 [facility] Last Admin: 04/06/18 10:22 Dose: 80 mg Insulin Aspart (Novolog Vial Sliding Scale -) 1 vial SQ ACHS [facility]; Protocol Last Admin: 04/06/18 11:59 Dose: 4 units Ipratropium [place] (Atrovent 0.02% Nebulizer -) 1 amp NEB Q6H PRN PRN Reason: DYSPEPSIA Stop: 04/09/18 12:06 Last Admin: 04/03/18 01:41 Dose: 1 amp Metoprolol Succinate (Toprol Xl -) 50 mg PO BID [facility] Last Admin: 04/06/18 09:41 Dose: 50 mg Metoprolol Tartrate (Lopressor Injection -) 5 mg IVPUSH Q4H PRN PRN Reason: TACHYCARDIA Last Admin: 04/01/18 21:40 Dose: 5 mg Oxycodone HCl (Roxicodone -) 10 mg PO Q6H PRN PRN Reason: PAIN LEVEL 6-10 Last Admin: 04/06/18 12:48 Dose: 10 mg Pantoprazole Sodium (Protonix -) 40 mg PO DAILY [facility] Last Admin: 04/06/18 09:40 Dose: 40 mg Prednisone (Deltasone -) 20 mg PO DAILY [facility] Psyllium Hydrophilic Mucilloid (Metamucil (Sugar-Free) -) 5.85 gm PO BID [facility] Last Admin: 04/06/18 09:40 Dose: 5.85 gm Senna (Senna -) 2 tab PO HS PRN PRN Reason: CONSTIPATION - Objective Vital Signs: Vital Signs Temperature 98.2 F 04/06/18 09:00 Pulse Rate 110 H 04/06/18 09:00 Respiratory Rate 20 04/06/18 09:00 Blood Pressure 107/79 04/06/18 09:00 O2 Sat by Pulse Oximetry (%) 94 L 04/06/18 09:00 Constitutional: Yes: Anxious, Mild Distress Eyes: Yes: Conjunctiva Clear Cardiovascular: Yes: S1, S2 Respiratory: Yes: Regular, CTA Bilaterally, On Nasal O2 Gastrointestinal: Yes: Normal Bowel Sounds, Soft Musculoskeletal: Yes: WNL Extremities: Yes: WNL Neurological: Yes: Alert, Oriented Psychiatric: Yes: Alert, Oriented Labs: CBC, BMP 04/06/18 06:00 04/06/18 06:00 INR, PTT INR 1.36 (0.83-1.09) H 03/28/18 07:15 Assessment/Plan Problem List - Problems (1) Acute exacerbation of CHF (congestive heart failure) Code(s): I50.9 - HEART FAILURE, UNSPECIFIED Qualifiers: (2) Influenza A Code(s): J10.1 - FLU DUE TO OTH IDENT INFLUENZA VIRUS W OTH RESP MANIFEST (3) Respiratory distress Code(s): R06.00 - DYSPNEA, UNSPECIFIED (4) COPD (chronic obstructive pulmonary disease) Code(s): J44.9 - CHRONIC OBSTRUCTIVE PULMONARY DISEASE, UNSPECIFIED (5) Afib Code(s): I48.91 - UNSPECIFIED ATRIAL FIBRILLATION Qualifiers: Atrial fibrillation type: chronic Qualified Code(s): I48.2 - Chronic atrial fibrillation (6) Chronic respiratory failure Code(s): J96.10 - CHRONIC RESPIRATORY FAILURE, UNSP W HYPOXIA OR HYPERCAPNIA (7) Pneumonia Code(s): J18.9 - PNEUMONIA, UNSPECIFIED ORGANISM Qualifiers: Pneumonia type: due to unspecified organism Laterality: left Lung location: lower lobe of lung Qualified Code(s): J18.1 - Lobar pneumonia, unspecified organism (8) S/P AVR Code(s): Z95.2 - PRESENCE OF PROSTHETIC HEART VALVE (9) CAD (coronary artery disease) Code(s): I25.10 - ATHSCL HEART DISEASE OF [place] CORONARY ARTERY W/O ANG PCTRS Qualifiers: [place] vs. transplanted heart: [place] heart Associated angina: without angina (10) COPD (chronic obstructive pulmonary disease) Code(s): J44.9 - CHRONIC OBSTRUCTIVE PULMONARY DISEASE, UNSPECIFIED Qualifiers: COPD type: COPD with acute exacerbation Qualified Code(s): J44.1 - Chronic obstructive pulmonary disease with (acute) exacerbation (11) Chronic kidney disease (CKD) Code(s): N18.9 - CHRONIC KIDNEY DISEASE, UNSPECIFIED Qualifiers: Chronic kidney disease stage: stage 3 (moderate) Qualified Code(s): N18.3 - Chronic kidney disease, stage 3 (moderate) (12) Diabetes mellitus with chronic kidney disease Code(s): E11.22 - TYPE 2 DIABETES MELLITUS W DIABETIC CHRONIC KIDNEY DISEASE; N18.9 - CHRONIC KIDNEY DISEASE, UNSPECIFIED Qualifiers: Diabetes mellitus type: type 2 Chronic kidney disease stage: stage 3 ( moderate) (13) Peripheral vascular disease Code(s): I73.9 - PERIPHERAL VASCULAR DISEASE, UNSPECIFIED (15) Acute on chronic respiratory failure with hypoxemia Code(s): J96.21 - ACUTE AND CHRONIC RESPIRATORY FAILURE WITH HYPOXIA Assessment/Plan 62 y.o. male with PMH of COPD on home O2, CHF, CAD s/p CABG, AICD, bioprosthetic AVR, MR, Atrial Fibrillation, CKD, HTN, DM and PVD presenting with SOB/tachynea, chest discomfort, leukocytosis, lactic acidosis, pulmonary congestion. Recently admitted to the hospital Influenza A Possible HCAP Sepsis Acute on chronic CHF COPD CKD DM CAD s/p CABG s/p AICD s/p AVR MR AFIB plan stable off of abx incentive abby rest as per the team anxious
--- NOTE | 2018-04-06 13:57 | PN ---
Progress Note, Physician History of Present Illness: Pt seen and examined at bedside. He is awake and alert. He still has shortness of breath. - Current Medication List Current Medications: Active Medications Aspirin (Ecotrin -) 81 mg PO DAILY [facility] Last Admin: 04/06/18 09:40 Dose: 81 mg Atorvastatin Calcium (Lipitor -) 20 mg PO HS [facility] Last Admin: 04/05/18 21:19 Dose: 20 mg Benzocaine/Menthol (Cepacol Lozenge -) 1 each MM PRN PRN PRN Reason: SORE THROAT Last Admin: 04/03/18 09:26 Dose: 1 each Budesonide/Formoterol Fumarate (Symbicort 80/4.5mcg -) 2 puff IH BID [facility] Last Admin: 04/06/18 09:42 Dose: 2 puff Cholecalciferol (Vitamin D3 -) 2,000 unit PO DAILY [facility] Last Admin: 04/06/18 09:38 Dose: 2,000 unit Cyclobenzaprine HCl (Flexeril -) 5 mg PO BID [facility] Last Admin: 04/06/18 09:39 Dose: 5 mg Docusate Sodium (Colace -) 100 mg PO TID [facility] Last Admin: 04/06/18 05:18 Dose: 100 mg Furosemide (Lasix Injection -) 80 mg IVPUSH BID@0600,1400 [facility] Last Admin: 04/06/18 10:22 Dose: 80 mg Insulin Aspart (Novolog Vial Sliding Scale -) 1 vial SQ ACHS [facility]; Protocol Last Admin: 04/06/18 11:59 Dose: 4 units Ipratropium [place] (Atrovent 0.02% Nebulizer -) 1 amp NEB Q6H PRN PRN Reason: DYSPEPSIA Stop: 04/09/18 12:06 Last Admin: 04/03/18 01:41 Dose: 1 amp Metoprolol Succinate (Toprol Xl -) 50 mg PO BID [facility] Last Admin: 04/06/18 09:41 Dose: 50 mg Metoprolol Tartrate (Lopressor Injection -) 5 mg IVPUSH Q4H PRN PRN Reason: TACHYCARDIA Last Admin: 04/01/18 21:40 Dose: 5 mg Oxycodone HCl (Roxicodone -) 10 mg PO Q6H PRN PRN Reason: PAIN LEVEL 6-10 Last Admin: 04/06/18 12:48 Dose: 10 mg Pantoprazole Sodium (Protonix -) 40 mg PO DAILY [facility] Last Admin: 04/06/18 09:40 Dose: 40 mg Prednisone (Deltasone -) 20 mg PO DAILY [facility] Psyllium Hydrophilic Mucilloid (Metamucil (Sugar-Free) -) 5.85 gm PO BID [facility] Last Admin: 04/06/18 09:40 Dose: 5.85 gm Senna (Senna -) 2 tab PO HS PRN PRN Reason: CONSTIPATION - Objective Vital Signs: Vital Signs Temperature 98.2 F 04/06/18 09:00 Pulse Rate 110 H 04/06/18 09:00 Respiratory Rate 20 04/06/18 09:00 Blood Pressure 107/79 04/06/18 09:00 O2 Sat by Pulse Oximetry (%) 94 L 04/06/18 09:00 Constitutional: Yes: Calm Eyes: Yes: Conjunctiva Clear HENT: Yes: Atraumatic Cardiovascular: Yes: S1, S2 Respiratory: Yes: On Nasal O2, Rhonchi Gastrointestinal: Yes: Soft, Abdomen, Obese Genitourinary: Yes: WNL Extremities: Yes: WNL Edema: Yes Edema: LLE: 2+, RLE: 2+ Neurological: Yes: Oriented Psychiatric: Yes: Oriented Labs: CBC, BMP 04/06/18 06:00 04/06/18 06:00 INR, PTT INR 1.36 (0.83-1.09) H 03/28/18 07:15 Assessment/Plan Current Medications Generic Name Dose Route Start Last Admin Trade Name Freq PRN Reason Stop Dose Admin Aspirin 81 mg 03/29/18 10:00 04/06/18 09:40 Ecotrin - PO 81 mg DAILY [facility] Administration Atorvastatin Calcium 20 mg 03/28/18 22:00 04/05/18 21:19 Lipitor - PO 20 mg HS [facility] Administration Benzocaine/Menthol 1 each 04/03/18 08:00 04/03/18 09:26 Cepacol Lozenge - MM 1 each PRN PRN Administration SORE THROAT Budesonide/Formoterol Fumarate 2 puff 04/02/18 22:00 04/06/18 09:42 Symbicort 80/4.5mcg - IH 2 puff BID [facility] Administration Cholecalciferol 2,000 unit 03/29/18 10:00 04/06/18 09:38 Vitamin D3 - PO 2,000 unit DAILY [facility] Administration Cyclobenzaprine HCl 5 mg 03/28/18 22:00 04/06/18 09:39 Flexeril - PO 5 mg BID [facility] Administration Docusate Sodium 100 mg 03/28/18 14:00 04/06/18 05:18 Colace - PO 100 mg TID [facility] Administration Furosemide 80 mg 04/06/18 09:45 04/06/18 10:22 Lasix Injection - IVPUSH 80 mg BID@0600,1400 [facility] Administration Insulin Aspart 1 vial 03/28/18 12:23 04/06/18 11:59 Novolog Vial Sliding Scale - SQ 4 units ACHS [facility] Administration Protocol Ipratropium [place] 1 amp 04/02/18 12:06 04/03/18 01:41 Atrovent 0.02% Nebulizer - NEB 04/09/18 12:06 1 amp Q6H PRN Administration DYSPEPSIA Metoprolol Succinate 50 mg 04/02/18 22:00 04/06/18 09:41 Toprol Xl - PO 50 mg BID [facility] Administration Metoprolol Tartrate 5 mg 03/31/18 11:02 04/01/18 21:40 Lopressor Injection - IVPUSH 5 mg Q4H PRN Administration TACHYCARDIA Oxycodone HCl 10 mg 04/04/18 16:55 04/06/18 12:48 Roxicodone - PO 10 mg Q6H PRN Administration PAIN LEVEL 6-10 Pantoprazole Sodium 40 mg 03/29/18 10:00 04/06/18 09:40 Protonix - PO 40 mg DAILY [facility] Administration Prednisone 20 mg 04/06/18 10:01 Deltasone - PO DAILY [facility] Psyllium Hydrophilic Mucilloid 5.85 gm 03/28/18 22:00 04/06/18 09:40 Metamucil (Sugar-Free) - PO 5.85 gm BID [facility] Administration Senna 2 tab 04/02/18 09:45 Senna - PO HS PRN CONSTIPATION Impression 1. CKD 2. proteinuria 3. CAD 4. CHF 5. COPD 6. DM 7. HTN 8. azotemia/fior 9. anemia Plan - cont lasix - restrict fluid intake - monitor lytes - cont to monitor renal function - he remains overloaded - discussed diet and fluids - will follow
[2018-04-06] MEDS ORDERED: ZOLPIDEM TARTRATE 5 MG TABLET PO ONE (20:49)
[2018-04-06] MEDS ORDERED: PT OWN MED DRAWER 7, Y5N ONE ×2 (20:54→21:08)
[2018-04-06] MEDS: ATORVASTATIN CA 20 MG TABLET (FP) PO SCH (21:02)
--- NOTE | 2018-04-07 01:17 | RAPID ---
Physical Examination Vital Signs: Vital Signs Temperature 97.4 F L 04/06/18 21:00 Pulse Rate 110 H 04/07/18 01:00 Respiratory Rate 18 04/07/18 01:00 Blood Pressure 153/65 04/06/18 21:00 O2 Sat by Pulse Oximetry (%) 100 04/06/18 21:00 Labs: CBC, BMP 04/06/18 06:00 04/06/18 06:00 Rapid Response - Rapid Response Assessment: rapid response called pt found lying on floor calling for help. pt fell while trying to use the bathroom, couldn't support himself. urine found on floor from tipped over urinal. no LOC or dizziness BP 145/68, HR 123, 99% NC 2L O2 PE found against side of wall PERRLA NCAT, no ttp no neck tenderness, ROM intact ext no gross deformities, R elbow abrasion w/ minimal bleeding. EKbpm, sinus tach, L axis deviation, LVH w/ recolonization abnl , qtc [address] head, c-spine, chest, pelvic and long bones hard C-collar in place maintain fall precautions pain ctl prn
[2018-04-07] MEDS: DOCUSATE SODIUM 100 MG CAPSULE (FP) PO SCH ×3 (06:46→21:26)
[2018-04-07] MEDS: INSULIN SLIDING SCALE (NOVOLOG) 1 VIAL SQ SCH ×4 (06:46→21:26)
[2018-04-07] MEDS: FUROSEMIDE 40 MG/4 ML INJECTABLE VIAL IVPUSH SCH ×2 (06:46→13:48)
[2018-04-07 07:21] LABS: EOS % 0.1 % (0-4.5); HEMATOCRIT 37.4 % (35.4-49); LYMPH % 3.7 % (8-40); MCH 30.6 pg (25.7-33.7); MCHC 32.1 g/dl (32.0-35.9); MEAN CELL VOLUME 95.3 fl (80-96); MEAN PLT VOLUME 10.1 fl (7.5-11.1); MONO % 9.2 % (3.8-10.2); PLATELET COUNT 109 K/MM3 (134-434); RBC 3.93 M/mm3 (4.00-5.60); RDW 17.9 % (11.9-15.9); WHITE BLOOD COUNT 14.2 K/mm3 (4.0-10.0)
[2018-04-07 07:56] LABS: ANION GAP 11 MMOL/L (8-16); BLOOD UREA NITROGEN 92 mg/dL (7-18); CALCIUM 8.1 mg/dL (8.5-10.1); CHLORIDE 96 mmol/L (98-107); CO2 28 mmol/L (21-32); CREATININE 2.4 mg/dL (0.55-1.3); GLUCOSE,RANDOM 172 mg/dL (74-106); MAGNESIUM 2.3 mg/dL (1.8-2.4); PHOSPHOROUS 4.2 mg/dL (2.5-4.9); POTASSIUM 4.3 mmol/L (3.5-5.1); SODIUM 135 mmol/L (136-145)
--- NOTE | 2018-04-07 09:11 | CONSULT ---
Consult - text type - Consultation Consultation Note: Neurology HISTORY OF PRESENT ILLNESS: 62 year old male was brought in to the ED by family members due to shortness of breath. As per the patient, he had been having shortness of breath since a couple of days prior to admission, even at rest, worse on exertion. Denied orthopnea, PND, chest pain, palpitation, cough, fever, chills, rigors or sweating. Per notes, patient was complaining of chest pain, was hypoxic to 92 % @ 3L then was placed in NRB with improvement in saturation. Labs were significant for leukocytosis of 13.1; Lactic acid of 2.1. Influenza A positive, CXR showed Left infiltrate. Tamiflu was given, has been treated for PNA and respiratory compromise. Consulted for AMS and extensive conversation with nurse and correctional counselor/case manager. Concern that patient becomes confused. During my visit, requires engagement but does tell me he's at [facility], can tell me its Apr 2018, able to tell me name of President. Does not appear acutely confused. CT head has been completed, awaiting official report. Will check ammnonia level as reported ascitis. Recent Travel: None PAST MEDICAL HISTORY: COPD on 3L home O2, pEFHF, CAD, ICD placement, PAD, DM, Atrial fibrillation not on A/c due to risk of fall PAST SURGICAL HISTORY: CABG x 3, s/p ICD placement Social History: Smoking: Smoked for 40 yrs, quit in 06/20/16 Alcohol: Denies Drugs: Denies Family History: Non contributory Allergies Fish Containing Products Allergy (Verified 03/28/18 05:49) codeine Adverse Reaction (Intermediate, Verified 03/28/18 05:49) Vomiting gabapentin Adverse Reaction (Intermediate, Verified 03/28/18 05:49) dizzy HOME MEDICATIONS: Home Medications Medication Instructions Recorded Aspirin [Aspirin EC] 81 mg PO DAILY 06/18/15 Zolpidem Tartrate [Ambien] 10 mg PO HS 06/18/15 Psyllium [Metamucil (Sugar-Free) -] 5.85 gm PO BID #1 bottle 06/02/17 Docusate Sodium [Colace -] 100 mg PO TID #90 capsule 09/22/17 Cholecalciferol (Vitamin D3) 2,000 unit PO DAILY #30 capsule 12/25/17 [Vitamin D3] Budesonide/Formeterol Fumarate 1 puff IH DAILY inhaler 12/30/17 [SYMBICORT 160/4.5mcg -] Cyclobenzaprine HCl 5 mg PO BID #28 tablet 12/30/17 Glipizide [Glucotrol -] 5 mg PO BID 01/11/18 Carvedilol [Coreg -] 25 mg PO BID #60 tablet 02/14/18 Pantoprazole Sodium [Protonix -] 40 mg PO DAILY #14 tablet.ec 02/22/18 Tiotropium [place] [Spiriva 2 puff IH DAILY #1 inhaler 02/22/18 Respimat] predniSONE [Deltasone -] 5 mg PO ASDIR #78 tab 02/22/18 Atorvastatin Ca [Lipitor] 20 mg PO HS 02/23/18 Furosemide [Lasix -] 80 mg PO DAILY #60 tablet 03/15/18 Insulin (Novolog) [Novolog Vial] See Protocol SQ BID PRN 03/23/18 Lactulose [Cephulac -] 10 - 20 gm PO DAILY PRN #1 bottle 03/23/18 Oxycodone HCl/Acetaminophen 1 each PO QID #120 tablet MDD 4 03/23/18 [Percocet 10-325 mg Tablet] REVIEW OF SYSTEMS CONSTITUTIONAL: Absent: fever, chills, diaphoresis, generalized weakness, malaise, loss of appetite, weight change HEENT: Absent: rhinorrhea, nasal congestion, throat pain, throat swelling, difficulty swallowing, mouth swelling, ear pain, eye pain, visual changes CARDIOVASCULAR: Absent: chest pain, syncope, palpitations, irregular heart rate, lightheadedness , peripheral edema RESPIRATORY: Present: shortness of breath, dyspnea with exertion, Absent: cough, orthopnea, wheezing, stridor, hemoptysis GASTROINTESTINAL: Absent: abdominal pain, abdominal distension, nausea, vomiting, diarrhea, constipation, melena, hematochezia GENITOURINARY: Absent: dysuria, frequency, urgency, hesitancy, hematuria, flank pain, genital pain MUSCULOSKELETAL: Absent: myalgia, arthralgia, joint swelling, back pain, neck pain SKIN: Absent: rash, itching, pallor HEMATOLOGIC/IMMUNOLOGIC: Absent: easy bleeding, easy bruising, lymphadenopathy, frequent infections ENDOCRINE: Absent: unexplained weight gain, unexplained weight loss, heat intolerance, cold intolerance NEUROLOGIC: Absent: headache, focal weakness or paresthesias, dizziness, unsteady gait, seizure, mental status changes, bladder or bowel incontinence PSYCHIATRIC: Absent: anxiety, depression, suicidal or homicidal ideation, hallucinations. PHYSICAL EXAMINATION Vital Signs Period Temp Pulse Resp BP Sys/El Pulse Ox Last 24 Hr 97.3 F-97.4 F 64-123 18-20 142-153/65-98 100 GENERAL: Middle aged obese male, lying in bed, Awake, alert, and fully oriented , in mild respiratory distress. HEAD: Normal with no signs of trauma. EYES:EOM intact, no pallor or icterus. EARS, NOSE, THROAT: Ears normal, drt mucous membranes. NECK:Supple. LUNGS: B/L Breath sounds equal, bibasilar crackles, No accessory muscle use. HEART: Irregularly irregular, rate, normal S1 and S2 with systolic murmur. ABDOMEN: Soft, nontender, no organomegaly. MUSCULOSKELETAL: Normal range of motion at all joints. No bony deformities or tenderness. No CVA tenderness. UPPER EXTREMITIES: 2+ pulses, warm, well-perfused. No cyanosis. No clubbing. No peripheral edema. LOWER EXTREMITIES: 2+ pulses, warm, well-perfused. No calf tenderness. Pitting edema b/l. NEUROLOGICAL: No facial droop. Normal speech. Gait not observed. PSYCHIATRIC: Cooperative. Good eye contact. Appropriate mood and affect. SKIN: Warm, dry, normal turgor, no rashes or lesions noted, normal capillary refill. CBCD WBC 14.2 K/mm3 (4.0-10.0) H 04/07/18 07:00 RBC 3.93 M/mm3 (4.00-5.60) L 04/07/18 07:00 Hgb 12.0 GM/dL (11.7-16.9) 04/07/18 07:00 Hct 37.4 % (35.4-49) 04/07/18 07:00 MCV 95.3 fl (80-96) 04/07/18 07:00 MCHC 32.1 g/dl (32.0-35.9) 04/07/18 07:00 RDW 17.9 % (11.9-15.9) H 04/07/18 07:00 Plt Count 109 K/MM3 (134-434) L D 04/07/18 07:00 MPV 10.1 fl (7.5-11.1) 04/07/18 07:00 CMP Sodium 135 mmol/L (136-145) L 04/07/18 07:00 Potassium 4.3 mmol/L (3.5-5.1) 04/07/18 07:00 Chloride 96 mmol/L (98-107) L 04/07/18 07:00 Carbon Dioxide 28 mmol/L (21-32) 04/07/18 07:00 Anion Gap 11 MMOL/L (8-16) 04/07/18 07:00 BUN 92 mg/dL (7-18) H 04/07/18 07:00 Creatinine 2.4 mg/dL (0.55-1.3) H 04/07/18 07:00 Creat Clearance w eGFR 27.57 (>60) 04/07/18 07:00 Random Glucose 172 mg/dL (74-106) H 04/07/18 07:00 Calcium 8.1 mg/dL (8.5-10.1) L 04/07/18 07:00 Total Bilirubin 0.4 mg/dL (0.2-1) 03/29/18 06:00 AST 53 U/L (15-37) H 03/29/18 06:00 ALT 30 U/L (13-61) 03/29/18 06:00 Alkaline Phosphatase 105 U/L (45-117) 03/29/18 06:00 Total Protein 5.5 g/dl (6.4-8.2) L 03/29/18 06:00 Albumin 2.3 g/dl (3.4-5.0) L 03/29/18 06:00 CARDIAC ENZYMES Creatine Kinase 36 IU/L (26-308) 03/28/18 07:15 Troponin I 0.05 ng/ml (0.00-0.05) 03/31/18 06:10 Imaging as above ASSESSMENT/PLAN: 62 year old male was brought in to the ED by family members due to shortness of breath. As per the patient, he had been having shortness of breath since a couple of days prior to admission, even at rest, worse on exertion. Denied orthopnea, PND, chest pain, palpitation, cough, fever, chills, rigors or sweating. Per notes, patient was complaining of chest pain, was hypoxic to 92 % @ 3L then was placed in NRB with improvement in saturation. Labs were significant for leukocytosis of 13.1; Lactic acid of 2.1. Influenza A positive, CXR showed Left infiltrate. Tamiflu was given, has been treated for PNA and respiratory compromise. Consulted for AMS and extensive conversation with nurse and correctional counselor/case manager. Concern that patient becomes confused. During my visit, requires engagement but does tell me he's at [facility], can tell me its Apr 2018, able to tell me name of President. Does not appear acutely confused. CT head has been completed, awaiting official report. Will check ammnonia level as reported ascitis. Recommend britni anderson as nurse feels he has underlying anxiety and unclear if untreated mental health illness. Continue medical optimization, hydration as tolerated.
--- NOTE | 2018-04-07 09:17 | PN ---
Progress Note (short form) - Note Progress Note: Chief Complaint: sob History of Present Illness: not sure if he's feeling better today. no chest pain, palps, dizziness, lightheadedness ex cigs Current Medications Aspirin (Ecotrin -) 81 mg PO DAILY [facility] Last Admin: 04/06/18 09:40 Dose: 81 mg Atorvastatin Calcium (Lipitor -) 20 mg PO HS [facility] Last Admin: 04/06/18 21:02 Dose: 20 mg Benzocaine/Menthol (Cepacol Lozenge -) 1 each MM PRN PRN PRN Reason: SORE THROAT Last Admin: 04/03/18 09:26 Dose: 1 each Budesonide/Formoterol Fumarate (Symbicort 80/4.5mcg -) 2 puff IH BID [facility] Last Admin: 04/06/18 21:01 Dose: 2 puff Cholecalciferol (Vitamin D3 -) 2,000 unit PO DAILY [facility] Last Admin: 04/06/18 09:38 Dose: 2,000 unit Cyclobenzaprine HCl (Flexeril -) 5 mg PO BID [facility] Last Admin: 04/06/18 21:01 Dose: 5 mg Docusate Sodium (Colace -) 100 mg PO TID [facility] Last Admin: 04/07/18 06:46 Dose: 100 mg Furosemide (Lasix Injection -) 80 mg IVPUSH BID@0600,1400 [facility] Last Admin: 04/07/18 06:46 Dose: 80 mg Insulin Aspart (Novolog Vial Sliding Scale -) 1 vial SQ [facility]; Protocol Last Admin: 04/07/18 06:46 Dose: 2 units Ipratropium [place] (Atrovent 0.02% Nebulizer -) 1 amp NEB Q6H PRN PRN Reason: DYSPEPSIA Stop: 04/09/18 12:06 Last Admin: 04/03/18 01:41 Dose: 1 amp Metoprolol Succinate (Toprol Xl -) 50 mg PO BID [facility] Last Admin: 04/06/18 21:02 Dose: 50 mg Metoprolol Tartrate (Lopressor Injection -) 5 mg IVPUSH Q4H PRN PRN Reason: TACHYCARDIA Last Admin: 04/01/18 21:40 Dose: 5 mg Oxycodone HCl (Roxicodone -) 10 mg PO Q6H PRN PRN Reason: PAIN LEVEL 6-10 Last Admin: 04/06/18 21:35 Dose: 10 mg Pantoprazole Sodium (Protonix -) 40 mg PO DAILY [facility] Last Admin: 04/06/18 09:40 Dose: 40 mg Prednisone (Deltasone -) 20 mg PO DAILY [facility] Psyllium Hydrophilic Mucilloid (Metamucil (Sugar-Free) -) 5.85 gm PO BID [facility] Last Admin: 04/06/18 21:03 Dose: Not Given Senna (Senna -) 2 tab PO HS PRN PRN Reason: CONSTIPATION Vital Signs Period Temp Pulse Resp BP Sys/El Pulse Ox Last 24 Hr 97.3 F-97.4 F 64-123 18-20 142-153/65-98 100 Constitutional: Yes: No Distress, Calm Eyes: No: Sclera Icterus HENT: No: Nasal Congestion Cardiovascular: Yes: Pulse Irregular, S1, S2, Other (PMI non diplaced). No: Gallop, Murmur Respiratory: Yes: CTA Bilaterally, Rales (L base). No: Accessory Muscle Use Gastrointestinal: Yes: Normal Bowel Sounds, Soft. No: Tenderness Musculoskeletal: Yes: Other (No kyphosis) Extremities: No: Cold Edema: Yes (1+ ankles) Integumentary: No: Jaundice Neurological: Yes: Alert, Oriented (x3) Psychiatric: No: Agitated Assessment/Plan ECG: AFL, intermittent V-S/V-P, + ST-Ts unchanged vs prior CT chest: small bilat effusions. scarring L base unchanged echo 06/2016: sev dec lvef, global hk, rv tds, trinity, mod-sev mr, mod tr, rvsp 50- 60 echo 06/2015: mild lve, mod-sev dec lvef, mod lae, nl rv size, mild dec rv fcn, mild-mod mr, mild tr, nl avr fcn, rvsp 30-40 mibi 06/2016 (pers): non-diagnostic STs; large area inferior/inferolateral/ lateral scar; no ischemia; severe LV cavity dilation; global HK with akinesis of inferior/inferolat/lateral allan; EF 16% mibi 09/2014: large inf scar, mod anteroapical ischemia, lvef 25% tele: AFL, Vs >> [employer]. HRs good a/p: 62 m hx copd, cabgx3 2012, bio avr 2012, pad s/p b/l sfa occlusions, syst chf s/p medtronic icd, htn, hld, a-tach, here with back pain, sob. pna, flu: -cont abx per ID acute on chronic systolic CHF exacerbation: -past dry wt here 187 lbs (recent discharge) -here with mild chf exacerbation likely worsened by flu/pna -03/30 was on lasix 80 po qd at home, weight stable, stable Cr, feels the same - increased lasix to 40 mg IV BID -03/31 Cr rising, change to lasix 40 mg IV daily -04/01: cont same iv lasix -04/02-: bun/cr rising, cxr shows less congestion, stopped iv lasix, monitoring cr trend before resuming po lasix -04/04: cr slightly better today, continue to hold lasix -04/05: remains signif above dry wt with no change for several days (199-200). JVD persists (note: this resolved during recent admit when well-diuresed). incr sob/orthopnea. creat improved vs peak, close to his baseline; BUN progressively rising here: ? steroids effect. needs diuresis. start lasix 80 iv bid today-- reassess in am. renal fxn may improve with diuresis--otherwise may need consider milrinone trial -04/06: only given one dose of lasix 80 iv yesterday due to computer and pharmacy issues with timing. wt down 1 lb, remains above recent dry wt. ongoing orthopnea : ? component from influenza--though no acute parenchymal findings on CT chest makes PNA unlikely. renal fxn stable. not collecting urine accurately, pt can't say if incr'd diuresis yest with lasix 80mg. give lasix 80 iv bid today, strict UOP assessment (d/w'd RN these instrxns) -1/2 weight down with lasix 80 mg IV BID, Cr stable, continue -cont metopr succ 50 bid. not on LESTER-I due to h/o hyperkalemia (hence defer entresto as well) atrial flutter: -pt in AFL on ekg -CHADS VASC 4, warrants AC for cardioembolic prophylaxis. pt is at prohibitive risks of falls/head trauma at present (very frequent falls recently including head trauma, suspected LE weakness with mechanical falls etiology) will defer AC for now. Prior plan was for pt to f/u in office to discuss fall risk/ac further but he did not come to appt (often misses appts). Rec'd that he have PT eval while here to assess his fall status so can decide upon residential AC before leaves. - episodes of RVR likely more frequent in setting of PNA, flu. changed coreg to toprol 50 bid and hr improved, cont tele cad/hx of CABG 2012 -no recent angina/ischemia -trop chronically in intermediate range, no change in current values, trend is flat, ck nl, not c/w acs -cont prior cad med regimen: asa, statin, bb, ccb bio avr: -nl fcn on echo 06/20 mitral regurgitation: -likely functional MR, mild-mod on echo 06/19, then "mod-severe" when here 06/20 with suspected acute chf and pulm pressures up (though at risk for overestimation of MR severity on that echo report) -valve morphology not described (tethered leaflets?) -no murmur on exam -reassess MR severity on echo as outpt pad: -stable, no claudication, cont current cardiac meds s/p icd: -no shocks on check earlier this month -routine outpt monitoring htn: -bp stable -cont home meds
[2018-04-07 10:31] LABS: ANISOCYTOSIS 1+; MACROCYTOSIS 1+; OVALOCYTE 1+; PLATELET ESTIMATE DECREASED; TEAR DROP CELLS 1+
[2018-04-07] MEDS ORDERED: PT OWN MED DRAWER 7, Y5N ONE ×2 (10:38→21:15)
[2018-04-07] MEDS: predniSONE 20 MG TABLET (UD) PO SCH (10:39)
[2018-04-07] MEDS: CHOLECALCIFEROL (VITAMIN D3) 1,000 UNIT TABLET (FP) PO SCH (10:40)
[2018-04-07] MEDS: PANTOPRAZOLE 40 MG TABLET (FP) PO SCH (10:40)
[2018-04-07] MEDS: ASPIRIN COATED 81 MG TABLET.EC PO SCH (10:40)
[2018-04-07] MEDS: CYCLOBENZAPRINE HCL 10 MG TABLET (FP) PO SCH ×2 (10:41→21:25)
[2018-04-07] MEDS: PSYLLIUM 5.85 GM PACKET PO SCH ×2 (10:41→21:27)
[2018-04-07] MEDS: BUDESONIDE/FORMETEROL FUMARATE 80/4.5 mcg INHALER IH SCH ×2 (10:42→21:27)
--- NOTE | 2018-04-07 11:44 | PN ---
Progress Note, Physician History of Present Illness: Pt seen and examined at bedside. He is awake and alert. He still has edema and shortness of breath. - Current Medication List Current Medications: Active Medications Aspirin (Ecotrin -) 81 mg PO DAILY [facility] Last Admin: 04/07/18 10:40 Dose: 81 mg Atorvastatin Calcium (Lipitor -) 20 mg PO HS [facility] Last Admin: 04/06/18 21:02 Dose: 20 mg Benzocaine/Menthol (Cepacol Lozenge -) 1 each MM PRN PRN PRN Reason: SORE THROAT Last Admin: 04/03/18 09:26 Dose: 1 each Budesonide/Formoterol Fumarate (Symbicort 80/4.5mcg -) 2 puff IH BID [facility] Last Admin: 04/07/18 10:42 Dose: 2 puff Cholecalciferol (Vitamin D3 -) 2,000 unit PO DAILY [facility] Last Admin: 04/07/18 10:40 Dose: 2,000 unit Cyclobenzaprine HCl (Flexeril -) 5 mg PO BID [facility] Last Admin: 04/07/18 10:41 Dose: 5 mg Docusate Sodium (Colace -) 100 mg PO TID [facility] Last Admin: 04/07/18 06:46 Dose: 100 mg Furosemide (Lasix Injection -) 80 mg IVPUSH BID@0600,1400 [facility] Last Admin: 04/07/18 06:46 Dose: 80 mg Insulin Aspart (Novolog Vial Sliding Scale -) 1 vial SQ ACHS [facility]; Protocol Last Admin: 04/07/18 06:46 Dose: 2 units Ipratropium [place] (Atrovent 0.02% Nebulizer -) 1 amp NEB Q6H PRN PRN Reason: DYSPEPSIA Stop: 04/09/18 12:06 Last Admin: 04/03/18 01:41 Dose: 1 amp Metoprolol Succinate (Toprol Xl -) 50 mg PO BID [facility] Last Admin: 04/07/18 10:41 Dose: 50 mg Metoprolol Tartrate (Lopressor Injection -) 5 mg IVPUSH Q4H PRN PRN Reason: TACHYCARDIA Last Admin: 04/01/18 21:40 Dose: 5 mg Oxycodone HCl (Roxicodone -) 10 mg PO Q6H PRN PRN Reason: PAIN LEVEL 6-10 Last Admin: 04/06/18 21:35 Dose: 10 mg Pantoprazole Sodium (Protonix -) 40 mg PO DAILY [facility] Last Admin: 04/07/18 10:40 Dose: 40 mg Prednisone (Deltasone -) 20 mg PO DAILY [facility] Last Admin: 04/07/18 10:39 Dose: 20 mg Psyllium Hydrophilic Mucilloid (Metamucil (Sugar-Free) -) 5.85 gm PO BID [facility] Last Admin: 04/07/18 10:41 Dose: 5.85 gm Senna (Senna -) 2 tab PO HS PRN PRN Reason: CONSTIPATION - Objective Vital Signs: Vital Signs Temperature 97.6 F 04/07/18 09:00 Pulse Rate 73 04/07/18 09:00 Respiratory Rate 20 04/07/18 09:00 Blood Pressure 123/73 04/07/18 09:00 O2 Sat by Pulse Oximetry (%) 100 04/07/18 09:00 Constitutional: Yes: Calm Eyes: Yes: Conjunctiva Clear HENT: Yes: Atraumatic Cardiovascular: Yes: S1, S2 Respiratory: Yes: On Nasal O2, Rhonchi Gastrointestinal: Yes: Soft Genitourinary: Yes: WNL Edema: Yes Edema: LLE: 2+, RLE: 2+ Neurological: Yes: Oriented Psychiatric: Yes: Oriented Labs: CBC, BMP 04/07/18 07:00 04/07/18 07:00 INR, PTT INR 1.36 (0.83-1.09) H 03/28/18 07:15 Assessment/Plan Current Medications Generic Name Dose Route Start Last Admin Trade Name Freq PRN Reason Stop Dose Admin Aspirin 81 mg 03/29/18 10:00 04/07/18 10:40 Ecotrin - PO 81 mg DAILY MANJU Administration Atorvastatin Calcium 20 mg 03/28/18 22:00 04/06/18 21:02 Lipitor - PO 20 mg HS [facility] Administration Benzocaine/Menthol 1 each 04/03/18 08:00 04/03/18 09:26 Cepacol Lozenge - MM 1 each PRN PRN Administration SORE THROAT Budesonide/Formoterol Fumarate 2 puff 04/02/18 22:00 04/07/18 10:42 Symbicort 80/4.5mcg - IH 2 puff BID MANJU Administration Cholecalciferol 2,000 unit 03/29/18 10:00 04/07/18 10:40 Vitamin D3 - PO 2,000 unit DAILY MANJU Administration Cyclobenzaprine HCl 5 mg 03/28/18 22:00 04/07/18 10:41 Flexeril - PO 5 mg BID MANJU Administration Docusate Sodium 100 mg 03/28/18 14:00 04/07/18 06:46 Colace - PO 100 mg TID MANJU Administration Furosemide 80 mg 04/06/18 09:45 04/07/18 06:46 Lasix Injection - IVPUSH 80 mg BID@0600,1400 MANJU Administration Insulin Aspart 1 vial 03/28/18 12:23 04/07/18 06:46 Novolog Vial Sliding Scale - SQ 2 units ACHS MANJU Administration Protocol Ipratropium [place] 1 amp 04/02/18 12:06 04/03/18 01:41 Atrovent 0.02% Nebulizer - NEB 04/09/18 12:06 1 amp Q6H PRN Administration DYSPEPSIA Metoprolol Succinate 50 mg 04/02/18 22:00 04/07/18 10:41 Toprol Xl - PO 50 mg BID MANJU Administration Metoprolol Tartrate 5 mg 03/31/18 11:02 04/01/18 21:40 Lopressor Injection - IVPUSH 5 mg Q4H PRN Administration TACHYCARDIA Oxycodone HCl 10 mg 04/04/18 16:55 04/06/18 21:35 Roxicodone - PO 10 mg Q6H PRN Administration PAIN LEVEL 6-10 Pantoprazole Sodium 40 mg 03/29/18 10:00 04/07/18 10:40 Protonix - PO 40 mg DAILY MANJU Administration Prednisone 20 mg 04/06/18 10:01 04/07/18 10:39 Deltasone - PO 20 mg DAILY MANJU Administration Psyllium Hydrophilic Mucilloid 5.85 gm 03/28/18 22:00 04/07/18 10:41 Metamucil (Sugar-Free) - PO 5.85 gm BID MANJU Administration Senna 2 tab 04/02/18 09:45 Senna - PO HS PRN CONSTIPATION Impression 1. CKD 2. proteinuria 3. CAD 4. CHF 5. COPD 6. DM 7. HTN 8. azotemia/fior 9. anemia Plan - cont to monitor renalo function - restrict fluid intake, spoke to pt at length - cont with IV lasix - pt remains fluid overloaded - cardio input appreciated - will follow
[2018-04-07 11:55] LABS: ALK PHOS 193 U/L (45-117); BILIRUBIN,DIRECT 0.6 mg/dL (0.0-0.2); BILIRUBIN,TOTAL 1.1 mg/dL (0.2-1); SGOT/AST 246 U/L (15-37); SGPT/ALT 585 U/L (13-61); TOT PROT 5.8 g/dl (6.4-8.2)
--- NOTE | 2018-04-07 12:45 | PN ---
Progress Note, Physician History of Present Illness: pulmonary alert,feeling better,less dyspneic,less cough,-cp - Current Medication List Current Medications: Active Medications Aspirin (Ecotrin -) 81 mg PO DAILY [facility] Last Admin: 04/07/18 10:40 Dose: 81 mg Atorvastatin Calcium (Lipitor -) 20 mg PO HS [facility] Last Admin: 04/06/18 21:02 Dose: 20 mg Benzocaine/Menthol (Cepacol Lozenge -) 1 each MM PRN PRN PRN Reason: SORE THROAT Last Admin: 04/03/18 09:26 Dose: 1 each Budesonide/Formoterol Fumarate (Symbicort 80/4.5mcg -) 2 puff IH BID [facility] Last Admin: 04/07/18 10:42 Dose: 2 puff Cholecalciferol (Vitamin D3 -) 2,000 unit PO DAILY [facility] Last Admin: 04/07/18 10:40 Dose: 2,000 unit Cyclobenzaprine HCl (Flexeril -) 5 mg PO BID [facility] Last Admin: 04/07/18 10:41 Dose: 5 mg Docusate Sodium (Colace -) 100 mg PO TID [facility] Last Admin: 04/07/18 06:46 Dose: 100 mg Furosemide (Lasix Injection -) 80 mg IVPUSH BID@0600,1400 [facility] Last Admin: 04/07/18 06:46 Dose: 80 mg Insulin Aspart (Novolog Vial Sliding Scale -) [address] [facility]; Protocol Last Admin: 04/07/18 11:52 Dose: 2 units Ipratropium [place] (Atrovent 0.02% Nebulizer -) 1 amp NEB Q6H PRN PRN Reason: DYSPEPSIA Stop: 04/09/18 12:06 Last Admin: 04/03/18 01:41 Dose: 1 amp Metoprolol Succinate (Toprol Xl -) 50 mg PO BID [facility] Last Admin: 04/07/18 10:41 Dose: 50 mg Metoprolol Tartrate (Lopressor Injection -) 5 mg IVPUSH Q4H PRN PRN Reason: TACHYCARDIA Last Admin: 04/01/18 21:40 Dose: 5 mg Oxycodone HCl (Roxicodone -) 10 mg PO Q6H PRN PRN Reason: PAIN LEVEL 6-10 Last Admin: 04/06/18 21:35 Dose: 10 mg Pantoprazole Sodium (Protonix -) 40 mg PO DAILY [facility] Last Admin: 04/07/18 10:40 Dose: 40 mg Prednisone (Deltasone -) 20 mg PO DAILY [facility] Last Admin: 04/07/18 10:39 Dose: 20 mg Psyllium Hydrophilic Mucilloid (Metamucil (Sugar-Free) -) 5.85 gm PO BID [facility] Last Admin: 04/07/18 10:41 Dose: 5.85 gm Senna (Senna -) 2 tab PO HS PRN PRN Reason: CONSTIPATION - Objective Vital Signs: Vital Signs Temperature 97.6 F 04/07/18 09:00 Pulse Rate 73 04/07/18 09:00 Respiratory Rate 20 04/07/18 09:00 Blood Pressure 123/73 04/07/18 09:00 O2 Sat by Pulse Oximetry (%) 100 04/07/18 09:00 Constitutional: Yes: Well Nourished, Calm Eyes: Yes: WNL HENT: Yes: WNL Neck: Yes: WNL Cardiovascular: Yes: Pulse Irregular, S1, S2 Respiratory: Yes: Rales (bibasilar crackles) Gastrointestinal: Yes: Normal Bowel Sounds, Soft Extremities: Yes: WNL Edema: No Labs: CBC, BMP 04/07/18 07:00 04/07/18 07:00 INR, PTT INR 1.36 (0.83-1.09) H 03/28/18 07:15 - ....Imaging Cat Scan: Report Reviewed, Image Reviewed Problem List - Problems (1) Acute on chronic respiratory failure with hypoxemia Code(s): J96.21 - ACUTE AND CHRONIC RESPIRATORY FAILURE WITH HYPOXIA (2) S/P CABG x 3 Code(s): Z95.1 - PRESENCE OF AORTOCORONARY BYPASS GRAFT (4) Troponin I above reference range Code(s): R74.8 - ABNORMAL LEVELS OF OTHER SERUM ENZYMES (5) Acute exacerbation of CHF (congestive heart failure) Code(s): I50.9 - HEART FAILURE, UNSPECIFIED Qualifiers: Heart failure type: combined systolic and diastolic Qualified Code(s): I50.43 - Acute on chronic combined systolic (congestive) and diastolic ( congestive) heart failure (6) Influenza A Code(s): J10.1 - FLU DUE TO OTH IDENT INFLUENZA VIRUS W OTH RESP MANIFEST (7) Afib Code(s): I48.91 - UNSPECIFIED ATRIAL FIBRILLATION Qualifiers: Atrial fibrillation type: chronic Qualified Code(s): I48.2 - Chronic atrial fibrillation (8) COPD exacerbation Code(s): J44.1 - CHRONIC OBSTRUCTIVE PULMONARY DISEASE W (ACUTE) EXACERBATION (9) Cough Code(s): R05 - COUGH (10) Pneumonia Code(s): J18.9 - PNEUMONIA, UNSPECIFIED ORGANISM (11) S/P AVR Code(s): Z95.2 - PRESENCE OF PROSTHETIC HEART VALVE (12) Shortness of breath Code(s): R06.02 - SHORTNESS OF BREATH (13) Weakness Code(s): R53.1 - WEAKNESS (14) CAD (coronary artery disease) Code(s): I25.10 - ATHSCL HEART DISEASE OF [place] CORONARY ARTERY W/O ANG PCTRS Qualifiers: [place] vs. transplanted heart: [place] heart Associated angina: without angina (15) CHF (congestive heart failure) Code(s): I50.9 - HEART FAILURE, UNSPECIFIED Qualifiers: Heart failure type: systolic Heart failure chronicity: chronic Qualified Code(s): I50.22 - Chronic systolic (congestive) heart failure (16) Chronic renal insufficiency, stage III (moderate) Code(s): N18.3 - CHRONIC KIDNEY DISEASE, STAGE 3 (MODERATE) (17) Coronary artery disease Code(s): I25.10 - ATHSCL HEART DISEASE OF [place] CORONARY ARTERY W/O ANG PCTRS Qualifiers: Coronary Disease-Associated Artery/Lesion type: bypass graft, other Associated angina: with other forms of angina Qualified Code(s): I25.798 - Atherosclerosis of other coronary artery bypass graft(s) with other forms of angina pectoris (18) HTN (hypertension) Code(s): I10 - ESSENTIAL (PRIMARY) HYPERTENSION Qualifiers: Hypertension type: essential hypertension Qualified Code(s): I10 - Essential (primary) hypertension (19) Peripheral vascular disease Code(s): I73.9 - PERIPHERAL VASCULAR DISEASE, UNSPECIFIED (20) Lactate blood increase Code(s): R79.89 - OTHER SPECIFIED ABNORMAL FINDINGS OF BLOOD CHEMISTRY Assessment/Plan IMP ACUTE ON CHRONIC HYPOXEMIC RESPIRATORY FAILURE IMPROVING ACUTE ON CHRONIC CHF S/P AICD COPD O2 DEPENDENT + TROPONIN ASHD S/P CABG S/P AVR ? PNEUMONIA ATYPICAL CP ACUTE ON CKD WORSENING PULMONARY HTN INFLUENZA A AFIB ELEVATED LACTATE LEVEL IMPROVED PLEURAL EFFUSION MEDIASTINAL ADENOPATHY LIKELY REACTIVE PLAN IV LASIX O2 INHALED BRONCHODILATORS F/U CHEST X-RAYS MONITOR LYTES,RENAL FUNCTION F/U CHEST CT 4-[address] [place] Problem List - Problems (1) Acute on chronic respiratory failure with hypoxemia Code(s): J96.21 - ACUTE AND CHRONIC RESPIRATORY FAILURE WITH HYPOXIA (2) S/P CABG x 3 Code(s): Z95.1 - PRESENCE OF AORTOCORONARY BYPASS GRAFT (4) Troponin I above reference range Code(s): R74.8 - ABNORMAL LEVELS OF OTHER SERUM ENZYMES (5) Acute exacerbation of CHF (congestive heart failure) Code(s): I50.9 - HEART FAILURE, UNSPECIFIED Qualifiers: (6) Influenza A Code(s): J10.1 - FLU DUE TO OTH IDENT INFLUENZA VIRUS W OTH RESP MANIFEST (7) Afib Code(s): I48.91 - UNSPECIFIED ATRIAL FIBRILLATION Qualifiers: Atrial fibrillation type: chronic Qualified Code(s): I48.2 - Chronic atrial fibrillation (8) COPD exacerbation Code(s): J44.1 - CHRONIC OBSTRUCTIVE PULMONARY DISEASE W (ACUTE) EXACERBATION (9) Cough Code(s): R05 - COUGH (10) Pneumonia Code(s): J18.9 - PNEUMONIA, UNSPECIFIED ORGANISM (11) S/P AVR Code(s): Z95.2 - PRESENCE OF PROSTHETIC HEART VALVE (12) Shortness of breath Code(s): R06.02 - SHORTNESS OF BREATH (13) Weakness Code(s): R53.1 - WEAKNESS (14) CAD (coronary artery disease) Code(s): I25.10 - ATHSCL HEART DISEASE OF [place] CORONARY ARTERY W/O ANG PCTRS Qualifiers: [place] vs. transplanted heart: [place] heart Associated angina: without angina (15) CHF (congestive heart failure) Code(s): I50.9 - HEART FAILURE, UNSPECIFIED Qualifiers: Heart failure type: systolic Heart failure chronicity: chronic Qualified Code(s): I50.22 - Chronic systolic (congestive) heart failure (16) Chronic renal insufficiency, stage III (moderate) Code(s): N18.3 - CHRONIC KIDNEY DISEASE, STAGE 3 (MODERATE) (17) Coronary artery disease Code(s): I25.10 - ATHSCL HEART DISEASE OF [place] CORONARY ARTERY W/O ANG PCTRS Qualifiers: Coronary Disease-Associated Artery/Lesion type: bypass graft, other Associated angina: with other forms of angina Qualified Code(s): I25.798 - Atherosclerosis of other coronary artery bypass graft(s) with other forms of angina pectoris (18) HTN (hypertension) Code(s): I10 - ESSENTIAL (PRIMARY) HYPERTENSION Qualifiers: Hypertension type: essential hypertension Qualified Code(s): I10 - Essential (primary) hypertension (19) Peripheral vascular disease Code(s): I73.9 - PERIPHERAL VASCULAR DISEASE, UNSPECIFIED (20) Lactate blood increase Code(s): R79.89 - OTHER SPECIFIED ABNORMAL FINDINGS OF BLOOD CHEMISTRY
--- NOTE | 2018-04-07 12:46 | EKG ---
Test Reason : Blood Pressure : / mmHG Vent. Rate : 124 BPM Atrial Rate : 124 BPM P-R Int : 000 ms QRS Dur : 114 ms QT Int : 360 ms P-R-T Axes : 000 -37 133 degrees QTc Int : 517 ms POOR DATA QUALITY, INTERPRETATION MAY BE ADVERSELY AFFECTED SINUS TACHYCARDIA WITH SHORT WV WITH OCCASIONAL PREMATURE VENTRICULAR COMPLEXES LEFT AXIS DEVIATION LEFT VENTRICULAR HYPERTROPHY WITH REPOLARIZATION ABNORMALITY ST ELEVATION CONSIDER INFEROLATERAL INJURY OR ACUTE INFARCT ACUTE IN / STEMI Consider right ventricular involvement in acute inferior infarct ABNORMAL ECG WHEN COMPARED WITH ECG OF 28-MAR-2018 06:29, SINUS RHYTHM HAS REPLACED ELECTRONIC VENTRICULAR PACEMAKER VENT. RATE HAS INCREASED BY 52 BPM Confirmed by STEPHANIE RIOS MD ([id number]) on 04/07/2018 12:45:35 PM Referred By: Confirmed By:STEPHANIE RIOS MD
--- NOTE | 2018-04-07 13:54 | PN ---
Physical Exam: SUBJECTIVE: Patient seen and examined at bed side this morning. Confused. States his breathing is not improving. Is frustrated. Overnight, he had a unwitnessed fall. OBJECTIVE: Vital Signs Period Temp Pulse Resp BP Sys/El Pulse Ox Last 24 Hr 97.3 F-97.6 F 64-123 18-20 123-153/65-98 100-100 GENERAL: Middle aged obese male, lying in bed, Awake, alert, confused, in mild respiratory distress, nasal canula @ 2L. HEAD: Normal with no signs of trauma. EYES:EOM intact, no pallor or icterus. EARS, NOSE, THROAT: Ears normal, moist mucous membranes. NECK:Supple. LUNGS: B/L Breath sounds equal, bibasilar crackles , No accessory muscle use. HEART: Irregularly irregular, rate, normal S1 and S2 with systolic murmur. ABDOMEN: Soft, tenderness in the left lower quadrant, no organomegaly. MUSCULOSKELETAL: Normal range of motion at all joints. No bony deformities or tenderness. No CVA tenderness. UPPER EXTREMITIES: 2+ pulses, warm, well-perfused. No cyanosis. No clubbing. No peripheral edema. LOWER EXTREMITIES: 2+ pulses, warm, well-perfused. No calf tenderness. Trace pitting edema b/l-improved. NEUROLOGICAL: No facial droop. Normal speech. Gait not observed. PSYCHIATRIC: Cooperative. Good eye contact. Appropriate mood and affect. SKIN: Warm, dry, normal turgor, no rashes or lesions noted, normal capillary refill. Laboratory Results - last 24 hr 04/06/18 04/06/18 04/07/18 16:35 20:59 06:45 WBC RBC Hgb Hct MCV MCH MCHC RDW Plt Count MPV Absolute Neuts (auto) Neutrophils % Neutrophils % (Manual) Band Neutrophils % Lymphocytes % Lymphocytes % (Manual) Monocytes % Monocytes % (Manual) Eosinophils % Eosinophils % (Manual) Basophils % Basophils % (Manual) Myelocytes % (Man) Promyelocytes % (Man) Blast Cells % (Manual) Nucleated RBC % Metamyelocytes Hypochromia Platelet Estimate Polychromasia Poikilocytosis Anisocytosis Microcytosis Macrocytosis Tear Drop Cells Ovalocytes Sodium Potassium Chloride Carbon Dioxide Anion Gap BUN Creatinine Creat Clearance w eGFR POC Glucometer 248 394 184 Random Glucose Calcium Phosphorus Magnesium Total Bilirubin Direct Bilirubin AST ALT Alkaline Phosphatase Total Protein Albumin 04/07/18 04/07/18 04/07/18 07:00 07:00 11:25 WBC 14.2 H RBC 3.93 L Hgb 12.0 Hct 37.4 MCV 95.3 MCH 30.6 MCHC 32.1 RDW 17.9 H Plt Count 109 L D MPV 10.1 Absolute Neuts (auto) 12.3 H Neutrophils % 87.0 H Neutrophils % (Manual) 81.0 Band Neutrophils % 0.0 Lymphocytes % 3.7 L Lymphocytes % (Manual) 3.0 L Monocytes % 9.2 Monocytes % (Manual) 11 H Eosinophils % 0.1 Eosinophils % (Manual) 1.0 D Basophils % 0.0 Basophils % (Manual) 0.0 Myelocytes % (Man) 2 D Promyelocytes % (Man) 0 Blast Cells % (Manual) 0 Nucleated RBC % 1 H Metamyelocytes 2 D Hypochromia 0 Platelet Estimate Decreased Polychromasia 0 Poikilocytosis 1+ Anisocytosis 1+ Microcytosis 0 Macrocytosis 1+ Tear Drop Cells 1+ Ovalocytes 1+ Sodium 135 L Potassium 4.3 Chloride 96 L Carbon Dioxide 28 Anion Gap 11 BUN 92 H Creatinine 2.4 H Creat Clearance w eGFR 27.57 POC Glucometer 184 Random Glucose 172 H Calcium 8.1 L Phosphorus 4.2 Magnesium 2.3 Total Bilirubin 1.1 H Direct Bilirubin 0.6 H AST 246 H ALT 585 H Alkaline Phosphatase 193 H Total Protein 5.8 L Albumin 3.0 L Active Medications Generic Name Dose Route Start Last Admin Trade Name Freq PRN Reason Stop Dose Admin Aspirin 81 mg 03/29/18 10:00 04/07/18 10:40 Ecotrin - PO 81 mg DAILY [facility]U Administration Atorvastatin Calcium 20 mg 03/28/18 22:00 04/06/18 21:02 Lipitor - PO 20 mg HS [facility]JU Administration Benzocaine/Menthol 1 each 04/03/18 08:00 04/03/18 09:26 Cepacol Lozenge - MM 1 each PRN PRN Administration SORE THROAT Budesonide/Formoterol Fumarate 2 puff 04/02/18 22:00 04/07/18 10:42 Symbicort 80/4.5mcg - IH 2 puff BID [facility]U Administration Cholecalciferol 2,000 unit 03/29/18 10:00 04/07/18 10:40 Vitamin D3 - PO 2,000 unit DAILY [facility] Administration Cyclobenzaprine HCl 5 mg 03/28/18 22:00 04/07/18 10:41 Flexeril - PO 5 mg BID [facility] Administration Docusate Sodium 100 mg 03/28/18 14:00 04/07/18 06:46 Colace - PO 100 mg TID [facility]U Administration Furosemide 80 mg 04/06/18 09:45 04/07/18 06:46 Lasix Injection - IVPUSH 80 mg BID@0600,1400 [facility] Administration Insulin Aspart 1 vial 03/28/18 12:23 04/07/18 11:52 Novolog Vial Sliding Scale - SQ 2 units ACHS MANJU Administration Protocol Ipratropium [place] 1 amp 04/02/18 12:06 04/03/18 01:41 Atrovent 0.02% Nebulizer - NEB 04/09/18 12:06 1 amp Q6H PRN Administration DYSPEPSIA Metoprolol Succinate 50 mg 04/02/18 22:00 04/07/18 10:41 Toprol Xl - PO 50 mg BID [facility] Administration Metoprolol Tartrate 5 mg 03/31/18 11:02 04/01/18 21:40 Lopressor Injection - IVPUSH 5 mg Q4H PRN Administration TACHYCARDIA Oxycodone HCl 10 mg 04/04/18 16:55 04/06/18 21:35 Roxicodone - PO 10 mg Q6H PRN Administration PAIN LEVEL 6-10 Pantoprazole Sodium 40 mg 03/29/18 10:00 04/07/18 10:40 Protonix - PO 40 mg DAILY [facility] Administration Prednisone 20 mg 04/06/18 10:01 04/07/18 10:39 Deltasone - PO 20 mg DAILY [facility] Administration Psyllium Hydrophilic Mucilloid 5.85 gm 03/28/18 22:00 04/07/18 10:41 Metamucil (Sugar-Free) - PO 5.85 gm BID [facility] Administration Senna 2 tab 04/02/18 09:45 Senna - PO HS PRN CONSTIPATION CT chest: Partially loculated left pleural effusion with atelectactic changes of the lower lobe. Cardiomegaly and possible mild congestion. Prominent mediastinal lymph nodes. Trace ascites. Abdominal CT: Findings consistent with advanced Hepatocellular disease. Trace ascites. ASSESSMENT/PLAN: Patient is a 62 year old male with significant past medical history of COPD on 3L home O2, pEFHF, CAD, ICD placement, PAD, DM, Atrial fibrillation not on A/c due to risk of fall was brought in to the ED by family members due to shortness of breath. # Unwitnessed fall Patient doesn't remember how he fell. Head CT- No acute pathology. Cervical CT-no acute pathology Fall precautions # Transaminitis Has trace asicites. LFT's rising. CT abdomen/pelvis done which showed Hepatocellular disease Could be from hepatic congestion. Pending Ultrasound of abdomen GI consult requested. # Altered mental status Could be from hepatic encephalopathy. Ammonia pending Already on Lactulose for constipation, will also help for encephalopathy. Appreciate Neurology consult # CKD creatinine 2.4 today (baseline 2-2.1). Rising BUN 98, on admission BUN was 29. Could be from Steroid use (now at tapering dose) Appreciate Renal consult. Continue Lasix 80 mg PO BID. Repeat bmp in AM Fluid restriction Avoid Nephrotoxic drugs # Abdominal pain -resolved. # Sinus Tachycardia Continue Lopressor 50mg BID as per cardio. IV Metoprolol 5mg Q4H PRN Discontinue albuterol/duoneb as it might also cause tachycardia. Started on Ipratropium and Symbicort. Continue to monitor in tele. # Acute hypoxic respiratory failure likely secondary to CHF/COPD exacerbation superimposed by Pneumonia and Flu- Resolved Completed Tamiflu course. Changed IV steriods to PO Prednisone 20 mg Daily # Elevated troponins likely from [place] ischemia- # Prolonged Qtc 582 on admission Avoid any Qtc prolonging agents # Normocytic anemia H/H stable. likely from CKD Iron studies: High ferritin, normal Iron. B12 and Folate high. # Atrial fibrillation CHADsVASc score of 4. Not on a/c due to risk of fall. PT to evaluate. # Hypertension-controlled continue Metoprolol 50 BID IV Metoprolol 5mg Q4H PRN for tachycardia. # FEN Not on IV fluids due to volume overloaded. Electrolytes WNL Diabetic diet/fat controlled # Prophylaxis For DVT: On Heparin 5000 IU sq TID FoR GI: On Protonix 40mg Daily # Code status: Full Code # Dispo:Admit to tele inpatient. Duration of stay unknown. Illness, Investigation and Plan of care explained to the patient. He verbalized understanding. Case discussed with Dr. Mathias Problem List - Problems (1) Acute exacerbation of CHF (congestive heart failure) Code(s): I50.9 - HEART FAILURE, UNSPECIFIED Qualifiers: Heart failure type: combined systolic and diastolic Qualified Code(s): I50.43 - Acute on chronic combined systolic (congestive) and diastolic ( congestive) heart failure (2) Influenza A Code(s): J10.1 - FLU DUE TO OTH IDENT INFLUENZA VIRUS W OTH RESP MANIFEST (3) Neck pain on right side Code(s): M54.2 - CERVICALGIA (4) Respiratory distress Code(s): R06.00 - DYSPNEA, UNSPECIFIED (5) COPD (chronic obstructive pulmonary disease) Code(s): J44.9 - CHRONIC OBSTRUCTIVE PULMONARY DISEASE, UNSPECIFIED (6) ERROL (acute kidney injury) Code(s): N17.9 - ACUTE KIDNEY FAILURE, UNSPECIFIED (7) Afib Code(s): I48.91 - UNSPECIFIED ATRIAL FIBRILLATION Qualifiers: Atrial fibrillation type: chronic Qualified Code(s): I48.2 - Chronic atrial fibrillation Visit type - Emergency Visit Emergency Visit: Yes ED Registration Date: 03/28/18 Care time: The patient presented to the Emergency Department on the above date and was hospitalized for further evaluation of their emergent condition. - New Patient This patient is new to me today: No - Critical Care Critical Care patient: No - Discharge Referral Referred to [facility] Med P.C.: No
--- NOTE | 2018-04-07 14:00 | PN ---
Progress Note, Physician History of Present Illness: events noted had a fall no issues soem injury on the rt arm now stable - Current Medication List Current Medications: Active Medications Aspirin (Ecotrin -) 81 mg PO DAILY [facility] Last Admin: 04/07/18 10:40 Dose: 81 mg Atorvastatin Calcium (Lipitor -) 20 mg PO HS [facility] Last Admin: 04/06/18 21:02 Dose: 20 mg Benzocaine/Menthol (Cepacol Lozenge -) 1 each MM PRN PRN PRN Reason: SORE THROAT Last Admin: 04/03/18 09:26 Dose: 1 each Budesonide/Formoterol Fumarate (Symbicort 80/4.5mcg -) 2 puff IH BID [facility] Last Admin: 04/07/18 10:42 Dose: 2 puff Cholecalciferol (Vitamin D3 -) 2,000 unit PO DAILY [facility] Last Admin: 04/07/18 10:40 Dose: 2,000 unit Cyclobenzaprine HCl (Flexeril -) 5 mg PO BID [facility] Last Admin: 04/07/18 10:41 Dose: 5 mg Docusate Sodium (Colace -) 100 mg PO TID [facility] Last Admin: 04/07/18 13:49 Dose: 100 mg Furosemide (Lasix Injection -) 80 mg IVPUSH BID@0600,1400 [facility] Last Admin: 04/07/18 13:48 Dose: 80 mg Insulin Aspart (Novolog Vial Sliding Scale -) 1 vial SQ [facility]; Protocol Last Admin: 04/07/18 11:52 Dose: 2 units Ipratropium [place] (Atrovent 0.02% Nebulizer -) 1 amp NEB Q6H PRN PRN Reason: DYSPEPSIA Stop: 04/09/18 12:06 Last Admin: 04/03/18 01:41 Dose: 1 amp Metoprolol Succinate (Toprol Xl -) 50 mg PO BID [facility] Last Admin: 04/07/18 10:41 Dose: 50 mg Metoprolol Tartrate (Lopressor Injection -) 5 mg IVPUSH Q4H PRN PRN Reason: TACHYCARDIA Last Admin: 04/01/18 21:40 Dose: 5 mg Oxycodone HCl (Roxicodone -) 10 mg PO Q6H PRN PRN Reason: PAIN LEVEL 6-10 Last Admin: 04/06/18 21:35 Dose: 10 mg Pantoprazole Sodium (Protonix -) 40 mg PO DAILY [facility] Last Admin: 04/07/18 10:40 Dose: 40 mg Prednisone (Deltasone -) 20 mg PO DAILY [facility] Last Admin: 04/07/18 10:39 Dose: 20 mg Psyllium Hydrophilic Mucilloid (Metamucil (Sugar-Free) -) 5.85 gm PO BID [facility] Last Admin: 04/07/18 10:41 Dose: 5.85 gm Senna (Senna -) 2 tab PO HS PRN PRN Reason: CONSTIPATION - Objective Vital Signs: Vital Signs Temperature 97.6 F 04/07/18 09:00 Pulse Rate 73 04/07/18 09:00 Respiratory Rate 20 04/07/18 09:00 Blood Pressure 123/73 04/07/18 09:00 O2 Sat by Pulse Oximetry (%) 100 04/07/18 09:00 Constitutional: Yes: No Distress, Calm Cardiovascular: Yes: S1, S2 Respiratory: Yes: Regular, Other Gastrointestinal: Yes: Normal Bowel Sounds Musculoskeletal: Yes: WNL Extremities: Yes: WNL Neurological: Yes: Alert, Oriented Psychiatric: Yes: Alert, Oriented Labs: CBC, BMP 04/07/18 07:00 04/07/18 07:00 INR, PTT INR 1.36 (0.83-1.09) H 03/28/18 07:15 Assessment/Plan Problem List - Problems (1) Acute exacerbation of CHF (congestive heart failure) Code(s): I50.9 - HEART FAILURE, UNSPECIFIED Qualifiers: (2) Influenza A Code(s): J10.1 - FLU DUE TO OTH IDENT INFLUENZA VIRUS W OTH RESP MANIFEST (3) Respiratory distress Code(s): R06.00 - DYSPNEA, UNSPECIFIED (4) COPD (chronic obstructive pulmonary disease) Code(s): J44.9 - CHRONIC OBSTRUCTIVE PULMONARY DISEASE, UNSPECIFIED (5) Afib Code(s): I48.91 - UNSPECIFIED ATRIAL FIBRILLATION Qualifiers: Atrial fibrillation type: chronic Qualified Code(s): I48.2 - Chronic atrial fibrillation (6) Chronic respiratory failure Code(s): J96.10 - CHRONIC RESPIRATORY FAILURE, UNSP W HYPOXIA OR HYPERCAPNIA (7) Pneumonia Code(s): J18.9 - PNEUMONIA, UNSPECIFIED ORGANISM Qualifiers: Pneumonia type: due to unspecified organism Laterality: left Lung location: lower lobe of lung Qualified Code(s): J18.1 - Lobar pneumonia, unspecified organism (8) S/P AVR Code(s): Z95.2 - PRESENCE OF PROSTHETIC HEART VALVE (9) CAD (coronary artery disease) Code(s): I25.10 - ATHSCL HEART DISEASE OF [place] CORONARY ARTERY W/O ANG PCTRS Qualifiers: [place] vs. transplanted heart: [place] heart Associated angina: without angina (10) COPD (chronic obstructive pulmonary disease) Code(s): J44.9 - CHRONIC OBSTRUCTIVE PULMONARY DISEASE, UNSPECIFIED Qualifiers: COPD type: COPD with acute exacerbation Qualified Code(s): J44.1 - Chronic obstructive pulmonary disease with (acute) exacerbation (11) Chronic kidney disease (CKD) Code(s): N18.9 - CHRONIC KIDNEY DISEASE, UNSPECIFIED Qualifiers: Chronic kidney disease stage: stage 3 (moderate) Qualified Code(s): N18.3 - Chronic kidney disease, stage 3 (moderate) (12) Diabetes mellitus with chronic kidney disease Code(s): E11.22 - TYPE 2 DIABETES MELLITUS W DIABETIC CHRONIC KIDNEY DISEASE; N18.9 - CHRONIC KIDNEY DISEASE, UNSPECIFIED Qualifiers: Diabetes mellitus type: type 2 Chronic kidney disease stage: stage 3 ( moderate) (13) Peripheral vascular disease Code(s): I73.9 - PERIPHERAL VASCULAR DISEASE, UNSPECIFIED (15) Acute on chronic respiratory failure with hypoxemia Code(s): J96.21 - ACUTE AND CHRONIC RESPIRATORY FAILURE WITH HYPOXIA Assessment/Plan 62 y.o. male with PMH of COPD on home O2, CHF, CAD s/p CABG, AICD, bioprosthetic AVR, MR, Atrial Fibrillation, CKD, HTN, DM and PVD presenting with SOB/tachynea, chest discomfort, leukocytosis, lactic acidosis, pulmonary congestion. Recently admitted to the hospital Influenza A Possible HCAP Sepsis Acute on chronic CHF COPD CKD DM CAD s/p CABG s/p AICD s/p AVR MR AFIB plan continue current mgmt monitor closely monitor heart rate rest as per the team
--- NOTE | 2018-04-07 15:37 | PN ---
Teaching Attending Note Name of Resident: Paula Yeung ATTENDING PHYSICIAN STATEMENT I saw and evaluated the patient. I reviewed the resident's note and discussed the case with the resident. I agree with the resident's findings and plan as documented with exceptions below. SUBJECTIVE: Patient seen and examined. Drowsy but responsive, denies any pain, breathing better. No pain. Recalls fall yesterday, reports tried to get to the bathroom. OBJECTIVE: Vital Signs Period Temp Pulse Resp BP Sys/El Pulse Ox Last 24 Hr 97.3 F-98.1 F 64-123 18-20 123-153/65-94 100-100 Intake & Output 04/04/18 04/05/18 04/06/18 04/07/18 23:59 23:59 23:59 23:59 Intake Total 220 554 770 920 Output Total 5046 997 4905 1400 Balance -780 104 655 -480 Weight 200 lb 6.4 oz 199 lb 2 oz 195 lb 8 oz General: sitting in bed, drowsy, responsive but no acute distress Neck: soft, supple, no JVD visualized CVS:S1S2 irregular Chest: distant breath sounds all over, positive air entry, no rales or wheezing appreciated Abdomen: soft, NT, ND Extremities: SCDs in place, trace pedal edema, unable to check for asterexis as patient no co-operative Home Medications Medication Instructions Recorded Aspirin [Aspirin EC] 81 mg PO DAILY 06/18/15 Zolpidem Tartrate [Ambien] 10 mg PO HS 06/18/15 Psyllium [Metamucil (Sugar-Free) -] 5.85 gm PO BID #1 bottle 06/02/17 Docusate Sodium [Colace -] 100 mg PO TID #90 capsule 09/22/17 Cholecalciferol (Vitamin D3) 2,000 unit PO DAILY #30 capsule 12/25/17 [Vitamin D3] Budesonide/Formeterol Fumarate 1 puff IH DAILY inhaler 12/30/17 [SYMBICORT 160/4.5mcg -] Cyclobenzaprine HCl 5 mg PO BID #28 tablet 12/30/17 Glipizide [Glucotrol -] 5 mg PO BID 01/11/18 Carvedilol [Coreg -] 25 mg PO BID #60 tablet 02/14/18 Pantoprazole Sodium [Protonix -] 40 mg PO DAILY #14 tablet.ec 02/22/18 Tiotropium [place] [Spiriva 2 puff IH DAILY #1 inhaler 02/22/18 Respimat] predniSONE [Deltasone -] 5 mg PO ASDIR #78 tab 02/22/18 Atorvastatin Ca [Lipitor] 20 mg PO HS 02/23/18 Furosemide [Lasix -] 80 mg PO DAILY #60 tablet 03/15/18 Insulin (Novolog) [Novolog Vial] See Protocol SQ BID PRN 03/23/18 Lactulose [Cephulac -] 10 - 20 gm PO DAILY PRN #1 bottle 03/23/18 Oxycodone HCl/Acetaminophen 1 each PO QID #120 tablet MDD 4 03/23/18 [Percocet 10-325 mg Tablet] Active Medications Aspirin (Ecotrin -) 81 mg PO DAILY [facility] Last Admin: 04/07/18 10:40 Dose: 81 mg Atorvastatin Calcium (Lipitor -) 20 mg PO HS [facility] Last Admin: 04/06/18 21:02 Dose: 20 mg Benzocaine/Menthol (Cepacol Lozenge -) 1 each MM PRN PRN PRN Reason: SORE THROAT Last Admin: 04/03/18 09:26 Dose: 1 each Budesonide/Formoterol Fumarate (Symbicort 80/4.5mcg -) 2 puff IH BID [facility] Last Admin: 04/07/18 10:42 Dose: 2 puff Cholecalciferol (Vitamin D3 -) 2,000 unit PO DAILY [facility] Last Admin: 04/07/18 10:40 Dose: 2,000 unit Cyclobenzaprine HCl (Flexeril -) 5 mg PO BID [facility] Last Admin: 04/07/18 10:41 Dose: 5 mg Docusate Sodium (Colace -) 100 mg PO TID [facility] Last Admin: 04/07/18 13:49 Dose: 100 mg Furosemide (Lasix Injection -) 80 mg IVPUSH BID@0600,1400 [facility] Last Admin: 04/07/18 13:48 Dose: 80 mg Insulin Aspart (Novolog Vial Sliding Scale -) 1 vial SQ ACHS [facility]; Protocol Last Admin: 04/07/18 11:52 Dose: 2 units Ipratropium [place] (Atrovent 0.02% Nebulizer -) 1 amp NEB Q6H PRN PRN Reason: DYSPEPSIA Stop: 04/09/18 12:06 Last Admin: 04/03/18 01:41 Dose: 1 amp Metoprolol Succinate (Toprol Xl -) 50 mg PO BID [facility] Last Admin: 04/07/18 10:41 Dose: 50 mg Metoprolol Tartrate (Lopressor Injection -) 5 mg IVPUSH Q4H PRN PRN Reason: TACHYCARDIA Last Admin: 04/01/18 21:40 Dose: 5 mg Oxycodone HCl (Roxicodone -) 10 mg PO Q6H PRN PRN Reason: PAIN LEVEL 6-10 Last Admin: 04/06/18 21:35 Dose: 10 mg Pantoprazole Sodium (Protonix -) 40 mg PO DAILY [facility] Last Admin: 04/07/18 10:40 Dose: 40 mg Prednisone (Deltasone -) 20 mg PO DAILY [facility] Last Admin: 04/07/18 10:39 Dose: 20 mg Psyllium Hydrophilic Mucilloid (Metamucil (Sugar-Free) -) 5.85 gm PO BID [facility] Last Admin: 04/07/18 10:41 Dose: 5.85 gm Senna (Senna -) 2 tab PO HS PRN PRN Reason: CONSTIPATION Laboratory Results - last 24 hr 04/06/18 04/06/18 04/07/18 16:35 20:59 06:45 WBC RBC Hgb Hct MCV MCH MCHC RDW Plt Count MPV Absolute Neuts (auto) Neutrophils % Neutrophils % (Manual) Band Neutrophils % Lymphocytes % Lymphocytes % (Manual) Monocytes % Monocytes % (Manual) Eosinophils % Eosinophils % (Manual) Basophils % Basophils % (Manual) Myelocytes % (Man) Promyelocytes % (Man) Blast Cells % (Manual) Nucleated RBC % Metamyelocytes Hypochromia Platelet Estimate Polychromasia Poikilocytosis Anisocytosis Microcytosis Macrocytosis Tear Drop Cells Ovalocytes Sodium Potassium Chloride Carbon Dioxide Anion Gap BUN Creatinine Creat Clearance w eGFR POC Glucometer 248 394 184 Random Glucose Calcium Phosphorus Magnesium Total Bilirubin Direct Bilirubin AST ALT Alkaline Phosphatase Total Protein Albumin 04/07/18 04/07/18 04/07/18 07:00 07:00 11:25 WBC 14.2 H RBC 3.93 L Hgb 12.0 Hct 37.4 MCV 95.3 MCH 30.6 MCHC 32.1 RDW 17.9 H Plt Count 109 L D MPV 10.1 Absolute Neuts (auto) 12.3 H Neutrophils % 87.0 H Neutrophils % (Manual) 81.0 Band Neutrophils % 0.0 Lymphocytes % 3.7 L Lymphocytes % (Manual) 3.0 L Monocytes % 9.2 Monocytes % (Manual) 11 H Eosinophils % 0.1 Eosinophils % (Manual) 1.0 D Basophils % 0.0 Basophils % (Manual) 0.0 Myelocytes % (Man) 2 D Promyelocytes % (Man) 0 Blast Cells % (Manual) 0 Nucleated RBC % 1 H Metamyelocytes 2 D Hypochromia 0 Platelet Estimate Decreased Polychromasia 0 Poikilocytosis 1+ Anisocytosis 1+ Microcytosis 0 Macrocytosis 1+ Tear Drop Cells 1+ Ovalocytes 1+ Sodium 135 L Potassium 4.3 Chloride 96 L Carbon Dioxide 28 Anion Gap 11 BUN 92 H Creatinine 2.4 H Creat Clearance w eGFR 27.57 POC Glucometer 184 Random Glucose 172 H Calcium 8.1 L Phosphorus 4.2 Magnesium 2.3 Total Bilirubin 1.1 H Direct Bilirubin 0.6 H AST 246 H ALT 585 H Alkaline Phosphatase 193 H Total Protein 5.8 L Albumin 3.[address] head/C-spine/Chest/Abdomen/Pelvis results reviewed Microbiology 03/28/18 06:43 Blood - Peripheral Venous Blood Culture - Final NO GROWTH AFTER 5 DAYS INCUBATION 03/28/18 06:43 Blood - Peripheral Venous Blood Culture - Final NO GROWTH AFTER 5 DAYS INCUBATION 03/31/18 11:45 Urine - Urine Clean Catch Urine Culture - Final NO GROWTH OBTAINED 03/28/18 22:00 Urine For Antigen Detection Legionella Antigen - Final 03/28/18 22:00 Urine For Antigen Detection Streptococcus pneumoniae Antigen (M - Final ASSESSMENT AND PLAN: 62 year old male with significant past medical history of copd, cabgx3 2012, bio avr 2012, pad s/p b/l sfa occlusions, syst chf s/p medtronic icd, htn, hld, a-tach, CKD (baseline cr 2.2-2.4), admitted with shortness of breath. -Acute hypoxic respiratory failure -Acute influenza A illness -Acute LLL HCAP with loculated pleural effusion -Acute on chronic systolic heart failure exacerbation -Abnormal LFTs, suspect passive hepatic congestion -Hepatocellular disease, ?Passive hepatic congestion -Fall on 04/07/2018 -Elevated troponin, suspect demand type II NSTEMI from above -Cardiomyopathy (EF 30-35%) s/p medtronic ICD -Atrial fibrillation not on AC due to risk of falls -HTN -HLD -Bioprosthetic AVR 2012 -CABG x 3 -PAD s/p bilateral SFA occlusion -CKD (baseline cr 2.2-2.4) -Anemia of chronic disease Plan: Fall overnight. trauma w/u neg. Fall precautions, PT eval. LFTs worse today. Check hep panel. Abdominal US. GI input.Hold statin for now. s/p tamiflu and zosyn, completed treatment.Prednisone PO taper Continue lasix 80 mg IV BID, with strict I/Os, daily weights, Cardiology/pulmonary/nephrology input appreciated. Neurology input noted. Check ammonia levels. Change lactulose to standing for now. Metoprolol/ASA Bowel regimen DVTPPx resume heparin Will need PT eval and CM input for d/c planning. Plan discussed with patient and nursing, all questions answered.
--- NOTE | 2018-04-07 20:02 | CONS ---
DATE OF CONSULTATION: 04/07/2018 The patient is a 62-year-old man with a past medical history of COPD, on 3 L of home O2; CAD; ICD; atrial fibrillation, not on anticoagulation secondary fall; and diabetes; also with bypass surgery. He is an ex-smoker who is admitted to the hospital with shortness of breath. He has been treated for pneumonia as well as influenza. During the course, he was noted to have an abnormal liver test. He is a very poor historian and denies any history of liver disease or jaundice in the past. PAST MEDICAL AND SURGICAL HISTORY: As listed in the HPI. ALLERGIES: FISH-CONTAINING PRODUCTS, CODEINE, AND GABAPENTIN. SOCIAL HISTORY: He is an ex-smoker. Does not drink or use drugs. FAMILY HISTORY: No history of GI or gynecological malignancy. REVIEW OF SYSTEMS: Gastrointestinal: Negative for abdominal pain, nausea, vomiting, hematemesis, melena, or hematochezia. He has not had a recent endoscopic examination. PHYSICAL EXAMINATION: Vital Signs: Temperature 97, pulse 62, respiratory rate 16, pulse oximetry 100% on 3 L, blood pressure 147/76. General: No acute distress. HEENT: Anicteric sclerae. Cardiovascular: S1, S2. Regular rate and rhythm. Lungs: Bilaterally clear to auscultation. Abdomen: Soft and nontender. Extremities: No edema. LABORATORY: White blood cell count 14, hemoglobin 12, hematocrit 37, MCV 95, platelet count 109. Sodium 135, potassium 4.3, BUN 92, creatinine 2.4, glucose of 172. Total bilirubin 1.1, AST 246, ALT 585, alkaline phosphatase of 193. INR 1.3. Urine has 2+ protein and 2+ glucose. CT scan of the abdomen was performed on April 07, without contrast, and revealed hepatocellular disease, trace ascites. No other pathology. IMPRESSION: Transaminitis, hepatocellular pattern. These findings may be secondary to recent antibiotic use. Choledocholithiasis is also included in the differential diagnosis with chronic and inherited liver disease. He most likely has underlying congestive hepatopathy contributing to his current transaminitis. RECOMMENDATION: MRCP to further evaluate the biliary tree and exclude an obstructive process. Liver serologies for chronic and inherited liver disease will be ordered. Avoid hepatotoxic medications. Trend liver tests daily while hospitalized as well as INR. This patient will be followed by the GI service. DO LETTY CHAPARRO/[id number]
[2018-04-07] MEDS: oxyCODONE HCL 5 MG TABLET PO PRN (20:10)
[2018-04-07] MEDS: HEPARIN NA (PORCINE) 5,000 UNITS/ML 1ML VIAL SQ SCH (21:26)
[2018-04-08] MEDS: oxyCODONE HCL 5 MG TABLET PO PRN ×3 (03:28→21:17)
[2018-04-08] MEDS: IPRATROPIUM BR 0.02% 0.5 MG/2.5 ML VIAL.NEB. NEB PRN ×2 (03:52→22:44)
[2018-04-08] MEDS: DOCUSATE SODIUM 100 MG CAPSULE (FP) PO SCH ×3 (05:12→21:14)
[2018-04-08] MEDS: INSULIN SLIDING SCALE (NOVOLOG) 1 VIAL SQ SCH ×4 (06:05→21:17)
[2018-04-08] MEDS: HEPARIN NA (PORCINE) 5,000 UNITS/ML 1ML VIAL SQ SCH ×3 (06:19→21:14)
[2018-04-08] MEDS: FUROSEMIDE 40 MG/4 ML INJECTABLE VIAL IVPUSH SCH ×2 (06:19→13:40)
[2018-04-08 07:30] LABS: HEMATOCRIT 36.6 % (35.4-49); HEMOGLOBIN 11.6 GM/dL (11.7-16.9); MCH 30.2 pg (25.7-33.7); MCHC 31.6 g/dl (32.0-35.9); MEAN CELL VOLUME 95.6 fl (80-96); MEAN PLT VOLUME 10.4 fl (7.5-11.1); PLATELET COUNT 98 K/MM3 (134-434); RBC 3.83 M/mm3 (4.00-5.60); RDW 18.6 % (11.9-15.9); WHITE BLOOD COUNT 12.5 K/mm3 (4.0-10.0)
[2018-04-08 07:59] LABS: ALBUMIN 2.8 g/dl (3.4-5.0); ALK PHOS 189 U/L (45-117); ANION GAP 11 MMOL/L (8-16); BILIRUBIN,TOTAL 1.2 mg/dL (0.2-1); BLOOD UREA NITROGEN 86 mg/dL (7-18); CHLORIDE 93 mmol/L (98-107); CO2 29 mmol/L (21-32); CREATININE 2.1 mg/dL (0.55-1.3); GLUCOSE,RANDOM 203 mg/dL (74-106); MAGNESIUM 2.5 mg/dL (1.8-2.4); POTASSIUM 4.2 mmol/L (3.5-5.1); SGOT/AST 138 U/L (15-37); SGPT/ALT 436 U/L (13-61); SODIUM 132 mmol/L (136-145); TOT PROT 5.7 g/dl (6.4-8.2)
[2018-04-08 08:11] LABS: N-TERMINAL BNP 26811.5 pg/ml (5-125)
--- NOTE | 2018-04-08 08:56 | PN ---
Progress Note (short form) - Note Progress Note: Neurology HISTORY OF PRESENT ILLNESS: 62 year old male was brought in to the ED by family members due to shortness of breath. As per the patient, he had been having shortness of breath since a couple of days prior to admission, even at rest, worse on exertion. Denied orthopnea, PND, chest pain, palpitation, cough, fever, chills, rigors or sweating. Per notes, patient was complaining of chest pain, was hypoxic to 92 % @ 3L then was placed in NRB with improvement in saturation. Labs were significant for leukocytosis of 13.1; Lactic acid of 2.1. Influenza A positive, CXR showed Left infiltrate. Tamiflu was given, has been treated for PNA and respiratory compromise. Consulted for AMS. CT head reviewed, without acute changes. Ammonia level ordered. GI note reviewed, for MRCP. Neurologically stable and getting ongoing medical optimization. Active Medications Aspirin (Ecotrin -) 81 mg PO DAILY [facility] Last Admin: 04/07/18 10:40 Dose: 81 mg Benzocaine/Menthol (Cepacol Lozenge -) 1 each MM PRN PRN PRN Reason: SORE THROAT Last Admin: 04/03/18 09:26 Dose: 1 each Budesonide/Formoterol Fumarate (Symbicort 80/4.5mcg -) 2 puff IH BID [facility] Last Admin: 04/07/18 21:27 Dose: 2 puff Cholecalciferol (Vitamin D3 -) 2,000 unit PO DAILY [facility] Last Admin: 04/07/18 10:40 Dose: 2,000 unit Cyclobenzaprine HCl (Flexeril -) 5 mg PO BID [facility] Last Admin: 04/07/18 21:25 Dose: 5 mg Docusate Sodium (Colace -) 100 mg PO TID [facility] Last Admin: 04/08/18 05:12 Dose: Not Given Furosemide (Lasix Injection -) 80 mg IVPUSH BID@0600,1400 [facility] Last Admin: 04/08/18 06:19 Dose: 80 mg Heparin Sodium (Porcine) (Heparin -) 5,000 unit SQ TID [facility] Last Admin: 04/08/18 06:19 Dose: 5,000 unit Insulin Aspart (Novolog Vial Sliding Scale -) 1 vial SQ [facility]; Protocol Last Admin: 04/08/18 06:05 Dose: Not Given Ipratropium [place] (Atrovent 0.02% Nebulizer -) 1 amp NEB Q6H PRN PRN Reason: DYSPEPSIA Stop: 04/09/18 12:06 Last Admin: 04/08/18 03:52 Dose: 1 amp Metoprolol Succinate (Toprol Xl -) 50 mg PO BID [facility] Last Admin: 04/07/18 21:26 Dose: 50 mg Metoprolol Tartrate (Lopressor Injection -) 5 mg IVPUSH Q4H PRN PRN Reason: TACHYCARDIA Last Admin: 04/01/18 21:40 Dose: 5 mg Oxycodone HCl (Roxicodone -) 10 mg PO Q6H PRN PRN Reason: PAIN LEVEL 6-10 Last Admin: 04/08/18 03:28 Dose: 10 mg Pantoprazole Sodium (Protonix -) 40 mg PO DAILY [facility] Last Admin: 04/07/18 10:40 Dose: 40 mg Prednisone (Deltasone -) 20 mg PO DAILY [facility] Last Admin: 04/07/18 10:39 Dose: 20 mg Psyllium Hydrophilic Mucilloid (Metamucil (Sugar-Free) -) 5.85 gm PO BID [facility] Last Admin: 04/07/18 21:27 Dose: Not Given Senna (Senna -) 2 tab PO HS PRN PRN Reason: CONSTIPATION PHYSICAL EXAMINATION Vital Signs Period Temp Pulse Resp BP Sys/El Pulse Ox Last 24 Hr 97.3 F-98.1 F 62-98 19-20 136-149/75-98 99 GENERAL: Middle aged obese male, lying in bed, Awake, alert, and fully oriented , in mild respiratory distress. HEAD: Normal with no signs of trauma. EYES:EOM intact, no pallor or icterus. EARS, NOSE, THROAT: Ears normal, drt mucous membranes. NECK:Supple. LUNGS: B/L Breath sounds equal, bibasilar crackles, No accessory muscle use. HEART: Irregularly irregular, rate, normal S1 and S2 with systolic murmur. ABDOMEN: Soft, nontender, no organomegaly. MUSCULOSKELETAL: Normal range of motion at all joints. No bony deformities or tenderness. No CVA tenderness. UPPER EXTREMITIES: 2+ pulses, warm, well-perfused. No cyanosis. No clubbing. No peripheral edema. LOWER EXTREMITIES: 2+ pulses, warm, well-perfused. No calf tenderness. Pitting edema b/l. NEUROLOGICAL: No facial droop. Normal speech. Gait not observed. PSYCHIATRIC: Cooperative. Good eye contact. Appropriate mood and affect. SKIN: Warm, dry, normal turgor, no rashes or lesions noted, normal capillary refill. CBCD WBC 12.5 K/mm3 (4.0-10.0) H 04/08/18 06:30 RBC 3.83 M/mm3 (4.00-5.60) L 04/08/18 06:30 Hgb 11.6 GM/dL (11.7-16.9) L 04/08/18 06:30 Hct 36.6 % (35.4-49) 04/08/18 06:30 MCV 95.6 fl (80-96) 04/08/18 06:30 MCHC 31.6 g/dl (32.0-35.9) L 04/08/18 06:30 RDW 18.6 % (11.9-15.9) H 04/08/18 06:30 Plt Count 98 K/MM3 (134-434) L 04/08/18 06:30 MPV 10.4 fl (7.5-11.1) 04/08/18 06:30 CMP Sodium 132 mmol/L (136-145) L 04/08/18 06:30 Potassium 4.2 mmol/L (3.5-5.1) 04/08/18 06:30 Chloride 93 mmol/L (98-107) L 04/08/18 06:30 Carbon Dioxide 29 mmol/L (21-32) 04/08/18 06:30 Anion Gap 11 MMOL/L (8-16) 04/08/18 06:30 BUN 86 mg/dL (7-18) H 04/08/18 06:30 Creatinine 2.1 mg/dL (0.55-1.3) H 04/08/18 06:30 Creat Clearance w eGFR 32.16 (>60) 04/08/18 06:30 Random Glucose 203 mg/dL (74-106) H 04/08/18 06:30 Calcium 8.0 mg/dL (8.5-10.1) L 04/08/18 06:30 Total Bilirubin 1.2 mg/dL (0.2-1) H 04/08/18 06:30 AST 138 U/L (15-37) H 04/08/18 06:30 ALT 436 U/L (13-61) H 04/08/18 06:30 Alkaline Phosphatase 189 U/L (45-117) H 04/08/18 06:30 Total Protein 5.7 g/dl (6.4-8.2) L 04/08/18 06:30 Albumin 2.8 g/dl (3.4-5.0) L 04/08/18 06:30 CARDIAC ENZYMES Creatine Kinase 36 IU/L (26-308) 03/28/18 07:15 Troponin I 0.05 ng/ml (0.00-0.05) 03/31/18 06:10 Imaging as above ASSESSMENT/PLAN: 62 year old male was brought in to the ED by family members due to shortness of breath. As per the patient, he had been having shortness of breath since a couple of days prior to admission, even at rest, worse on exertion. Denied orthopnea, PND, chest pain, palpitation, cough, fever, chills, rigors or sweating. Per notes, patient was complaining of chest pain, was hypoxic to 92 % @ 3L then was placed in NRB with improvement in saturation. Labs were significant for leukocytosis of 13.1; Lactic acid of 2.1. Influenza A positive, CXR showed Left infiltrate. Tamiflu was given, has been treated for PNA and respiratory compromise. Consulted for AMS and extensive conversation with nurse and binder caser. Concern that patient becomes confused. Is able to tell me he' s at [facility], can tell me its Apr 2018, able to tell me name of President. Does not appear acutely confused. CT head without acute changes. Ordered ammnonia level as reported ascitis. GI note reviewed, MRCP to be completed. Recommend britni anderson as nurse feels he has underlying anxiety and unclear if untreated mental health illness. Continue medical optimization, hydration as tolerated. GI follow up. Continue monitoring mental status.
[2018-04-08] MEDS ORDERED: PT OWN MED DRAWER 7, Y5N ONE ×3 (10:24→21:06)
[2018-04-08] MEDS: BUDESONIDE/FORMETEROL FUMARATE 80/4.5 mcg INHALER IH SCH ×2 (10:39→21:14)
[2018-04-08] MEDS: ASPIRIN COATED 81 MG TABLET.EC PO SCH (10:40)
[2018-04-08] MEDS: CHOLECALCIFEROL (VITAMIN D3) 1,000 UNIT TABLET (FP) PO SCH (10:40)
[2018-04-08] MEDS: predniSONE 20 MG TABLET (UD) PO SCH (10:40)
[2018-04-08] MEDS: CYCLOBENZAPRINE HCL 10 MG TABLET (FP) PO SCH ×2 (10:40→21:13)
[2018-04-08] MEDS: PANTOPRAZOLE 40 MG TABLET (FP) PO SCH (10:40)
[2018-04-08] MEDS: PSYLLIUM 5.85 GM PACKET PO SCH ×2 (10:46→21:14)
--- NOTE | 2018-04-08 12:15 | PN ---
Progress Note (short form) - Note Progress Note: cc: sob s: no sob, chest pain, palps, dizziness, lightheadedness Current Medications Generic Name Dose Route Start Last Admin Trade Name Ghada PRN Reason Stop Dose Admin Aspirin 81 mg 03/29/18 10:00 04/08/18 10:40 Ecotrin - PO 81 mg DAILY MANJU Administration Benzocaine/Menthol 1 each 04/03/18 08:00 04/03/18 09:26 Cepacol Lozenge - MM 1 each PRN PRN Administration SORE THROAT Budesonide/Formoterol Fumarate 2 puff 04/02/18 22:00 04/08/18 10:39 Symbicort 80/4.5mcg - IH 2 puff BID MANJU Administration Cholecalciferol 2,000 unit 03/29/18 10:00 04/08/18 10:40 Vitamin D3 - PO 2,000 unit DAILY MANJU Administration Cyclobenzaprine HCl 5 mg 03/28/18 22:00 04/08/18 10:40 Flexeril - PO 5 mg BID MANJU Administration Docusate Sodium 100 mg 03/28/18 14:00 04/08/18 05:12 Colace - PO Not Given TID MANJU Furosemide 80 mg 04/06/18 09:45 04/08/18 06:19 Lasix Injection - IVPUSH 80 mg BID@0600,1400 MANJU Administration Heparin Sodium (Porcine) 5,000 unit 04/07/18 22:00 04/08/18 06:19 Heparin - SQ 5,000 unit TID MANJU Administration Insulin Aspart 1 vial 03/28/18 12:23 04/08/18 11:38 Novolog Vial Sliding Scale - SQ 8 units ACHS MANJU Administration Protocol Ipratropium [place] 1 amp 04/02/18 12:06 04/08/18 03:52 Atrovent 0.02% Nebulizer - NEB 04/09/18 12:06 1 amp Q6H PRN Administration DYSPEPSIA Metoprolol Succinate 50 mg 04/02/18 22:00 04/08/18 10:40 Toprol Xl - PO 50 mg BID MANJU Administration Metoprolol Tartrate 5 mg 03/31/18 11:02 04/01/18 21:40 Lopressor Injection - IVPUSH 5 mg Q4H PRN Administration TACHYCARDIA Oxycodone HCl 10 mg 04/04/18 16:55 01/03/19 10:41 Roxicodone - PO 10 mg Q6H PRN Administration PAIN LEVEL 6-10 Pantoprazole Sodium 40 mg 03/29/18 10:00 04/08/18 10:40 Protonix - PO 40 mg DAILY MANJU Administration Prednisone 20 mg 04/06/18 10:01 04/08/18 10:40 Deltasone - PO 20 mg DAILY MANJU Administration Psyllium Hydrophilic Mucilloid 5.85 gm 03/28/18 22:00 04/08/18 10:46 Metamucil (Sugar-Free) - PO 5.85 gm BID MANJU Administration Senna 2 tab 04/02/18 09:45 Senna - PO HS PRN CONSTIPATION pe: Vital Signs Period Temp Pulse Resp BP Sys/El Pulse Ox Last 24 Hr 97.3 F-98.1 F 62-98 19-20 136-155/75-98 99 nad, +JVD rrr s1s2 no mrg cta bl, nl eff aaox3 no le e/c/c abd nt nd pos bs no jaundice diaphoresis +dp pt no carotid bruits ECG: AFL, intermittent V-S/V-P, + ST-Ts unchanged vs prior echo 06/2016: sev dec lvef, global hk, rv tds, trinity, mod-sev mr, mod tr, rvsp 50- 60 echo 06/2015: mild lve, mod-sev dec lvef, mod lae, nl rv size, mild dec rv fcn, mild-mod mr, mild tr, nl avr fcn, rvsp 30-40 mibi 06/2016 (pers): non-diagnostic STs; large area inferior/inferolateral/ lateral scar; no ischemia; severe LV cavity dilation; global HK with akinesis of inferior/inferolat/lateral allan; EF 16% mibi 09/2014: large inf scar, mod anteroapical ischemia, lvef 25% tele: AFL hr controlled a/p: 62 m hx copd, cabgx3 2012, bio avr 2012, pad s/p b/l sfa occlusions, syst chf s/p medtronic icd, htn, hld, a-tach, here with back pain, sob. pna, flu: -cont abx per ID acute on chronic systolic CHF exacerbation: -past dry wt here 187 lbs (recent discharge) -here with mild chf exacerbation likely worsened by flu/pna -03/30 was on lasix 80 po qd at home, weight stable, stable Cr, feels the same - increased lasix to 40 mg IV BID -03/31 Cr rising, change to lasix 40 mg IV daily -04/01: cont same iv lasix -04/02-: bun/cr rising, cxr shows less congestion, stopped iv lasix, monitoring cr trend before resuming po lasix -04/04: cr slightly better today, continue to hold lasix -04/05: remains signif above dry wt with no change for several days (199-200). JVD persists (note: this resolved during recent admit when well-diuresed). incr sob/orthopnea. creat improved vs peak, close to his baseline; BUN progressively rising here: ? steroids effect. needs diuresis. start lasix 80 iv bid today-- reassess in am. renal fxn may improve with diuresis--otherwise may need consider milrinone trial -04/06: only given one dose of lasix 80 iv yesterday due to computer and pharmacy issues with timing. wt down 1 lb, remains above recent dry wt. ongoing orthopnea : ? component from influenza--though no acute parenchymal findings on CT chest makes PNA unlikely. renal fxn stable. not collecting urine accurately, pt can't say if incr'd diuresis yest with lasix 80mg. give lasix 80 iv bid today, strict UOP assessment (d/w'd RN these instrxns) -1/2-3 weight down with lasix 80 mg IV BID, Cr stable, continue -cont metopr succ 50 bid. not on LESTER-I due to h/o hyperkalemia (hence defer entresto as well) atrial flutter: -pt in AFL on ekg -CHADS VASC 4, warrants AC for cardioembolic prophylaxis. pt is at prohibitive risks of falls/head trauma at present (very frequent falls recently including head trauma, suspected LE weakness with mechanical falls etiology) will defer AC for now. Prior plan was for pt to f/u in office to discuss fall risk/ac further but he did not come to appt (often misses appts). Rec'd that he have PT eval while here to assess his fall status so can decide upon custodial AC before leaves. - episodes of RVR likely more frequent in setting of PNA, flu. changed coreg to toprol 50 bid and hr improved, cont tele cad/hx of CABG 2012 -no recent angina/ischemia -trop chronically in intermediate range, no change in current values, trend is flat, ck nl, not c/w acs -cont prior cad med regimen: asa, statin, bb, ccb bio avr: -nl fcn on echo 06/20 mitral regurgitation: -likely functional MR, mild-mod on echo 06/19, then "mod-severe" when here 06/20 with suspected acute chf and pulm pressures up (though at risk for overestimation of MR severity on that echo report) -valve morphology not described (tethered leaflets?) -no murmur on exam -reassess MR severity on echo as outpt pad: -stable, no claudication, cont current cardiac meds s/p icd: -no shocks on check earlier this month -routine outpt monitoring htn: -bp stable -cont home meds
--- NOTE | 2018-04-08 12:55 | PN ---
GI Progress Note Subjective: Patient sitting up in bed, mildly tachypnic States feeling well No abdominal pain Received zosyn and zithromax earlier during admission - Objective Vital Signs: Vital Signs Temperature 97.4 F L 04/08/18 10:48 Pulse Rate 66 04/08/18 10:48 Respiratory Rate 20 04/08/18 10:48 Blood Pressure 155/85 04/08/18 10:48 O2 Sat by Pulse Oximetry (%) 99 04/07/18 20:34 Constitutional: Calm Eyes: No: Sclera Icterus Cardiovascular: Yes: Pulse Irregular Respiratory: Yes: Rhonchi (bases bilaterally) Gastrointestinal Inspection: No: Distention ...Auscultate: Yes: Normoactive Bowel Sounds ...Palpate: No: Hepatomegaly, Splenomegaly, Tenderness ...Percussion: No: Tympanitic Edema: Yes Edema: LLE: 1+, RLE: 1+ Neurological: Yes: Alert Labs: CBC, BMP 04/08/18 06:30 04/08/18 06:30 INR, PTT INR 1.36 (0.83-1.09) H 03/28/18 07:15 - ....Imaging Cat Scan: Report Reviewed (enlarged caudate lobe raising ? of advanced liver disease) Ultrasound: Report Reviewed (jose liver, no gallstones, right 9mm renal cyst, right pleural effusion) Problem List - Problems (1) Abnormal liver enzymes Assessment/Plan: In review of Radiant Zemax, the more marked elevations of transaminases and ALP seeemd to have been during this admission. INR has been mildly elevated since at least 2014. He likely as underlying chronic liver disease with acute LFT abnormalities secondary to passive congestion / ? med induced from abx. earlier in admission. Slight improving trends from yesterday Advise: Monitor LFT's Optimization of cardiac status Avoid hepatotoxic agents Advised complete avoidance of alcohol MRCP if ICD compatible Code(s): R74.8 - ABNORMAL LEVELS OF OTHER SERUM ENZYMES
--- NOTE | 2018-04-08 13:06 | PN ---
Teaching Attending Note Name of Resident: Paula Yeung ATTENDING PHYSICIAN STATEMENT I saw and evaluated the patient. I reviewed the resident's note and discussed the case with the resident. I agree with the resident's findings and plan as documented with exceptions below. SUBJECTIVE: Patient seen and examined. breathing improved, no new complaints. Does not want to talk about procedures or endoscopy. Denies any further bowel movements. OBJECTIVE: Vital Signs Period Temp Pulse Resp BP Sys/El Pulse Ox Last 24 Hr 97.3 F-98.1 F 62-98 19-20 136-155/75-98 99 Intake & Output 04/05/18 04/06/18 04/07/18 04/08/18 23:59 23:59 23:59 23:59 Intake Total 554 770 920 370 Output Total 450 1425 2000 400 Balance 104 -655 -1080 -30 Weight 200 lb 6.4 oz 199 lb 2 oz 195 lb 191 lb General: sitting in bed in no acute distress Chest: improved basilar rales and air entry Abdomen:soft. NT throughout, ND, positive bowel sounds Extremities; trace pedal edema Home Medications Medication Instructions Recorded Aspirin [Aspirin EC] 81 mg PO DAILY 06/18/15 Zolpidem Tartrate [Ambien] 10 mg PO HS 06/18/15 Psyllium [Metamucil (Sugar-Free) -] 5.85 gm PO BID #1 bottle 06/02/17 Docusate Sodium [Colace -] 100 mg PO TID #90 capsule 09/22/17 Cholecalciferol (Vitamin D3) 2,000 unit PO DAILY #30 capsule 12/25/17 [Vitamin D3] Budesonide/Formeterol Fumarate 1 puff IH DAILY inhaler 12/30/17 [SYMBICORT 160/4.5mcg -] Cyclobenzaprine HCl 5 mg PO BID #28 tablet 12/30/17 Glipizide [Glucotrol -] 5 mg PO BID 01/11/18 Carvedilol [Coreg -] 25 mg PO BID #60 tablet 02/14/18 Pantoprazole Sodium [Protonix -] 40 mg PO DAILY #14 tablet.ec 02/22/18 Tiotropium [place] [Spiriva 2 puff IH DAILY #1 inhaler 02/22/18 Respimat] predniSONE [Deltasone -] 5 mg PO ASDIR #78 tab 02/22/18 Atorvastatin Ca [Lipitor] 20 mg PO HS 02/23/18 Furosemide [Lasix -] 80 mg PO DAILY #60 tablet 03/15/18 Insulin (Novolog) [Novolog Vial] See Protocol SQ BID PRN 03/23/18 Lactulose [Cephulac -] 10 - 20 gm PO DAILY PRN #1 bottle 03/23/18 Oxycodone HCl/Acetaminophen 1 each PO QID #120 tablet MDD 4 03/23/18 [Percocet 10-325 mg Tablet] Active Medications Aspirin (Ecotrin -) 81 mg PO DAILY [facility] Last Admin: 04/08/18 10:40 Dose: 81 mg Benzocaine/Menthol (Cepacol Lozenge -) 1 each MM PRN PRN PRN Reason: SORE THROAT Last Admin: 04/03/18 09:26 Dose: 1 each Budesonide/Formoterol Fumarate (Symbicort 80/4.5mcg -) 2 puff IH BID [facility] Last Admin: 04/08/18 10:39 Dose: 2 puff Cholecalciferol (Vitamin D3 -) 2,000 unit PO DAILY [facility] Last Admin: 04/08/18 10:40 Dose: 2,000 unit Cyclobenzaprine HCl (Flexeril -) 5 mg PO BID [facility] Last Admin: 04/08/18 10:40 Dose: 5 mg Docusate Sodium (Colace -) 100 mg PO TID [facility] Last Admin: 04/08/18 05:12 Dose: Not Given Furosemide (Lasix Injection -) 80 mg IVPUSH BID@0600,1400 [facility] Last Admin: 04/08/18 06:19 Dose: 80 mg Heparin Sodium (Porcine) (Heparin -) 5,000 unit SQ TID [facility] Last Admin: 04/08/18 06:19 Dose: 5,000 unit Insulin Aspart (Novolog Vial Sliding Scale -) 1 vial SQ ACHS [facility]; Protocol Last Admin: 04/08/18 11:38 Dose: 8 units Ipratropium [place] (Atrovent 0.02% Nebulizer -) 1 amp NEB Q6H PRN PRN Reason: DYSPEPSIA Stop: 04/09/18 12:06 Last Admin: 04/08/18 03:52 Dose: 1 amp Metoprolol Succinate (Toprol Xl -) 50 mg PO BID [facility] Last Admin: 04/08/18 10:40 Dose: 50 mg Metoprolol Tartrate (Lopressor Injection -) 5 mg IVPUSH Q4H PRN PRN Reason: TACHYCARDIA Last Admin: 04/01/18 21:40 Dose: 5 mg Oxycodone HCl (Roxicodone -) 10 mg PO Q6H PRN PRN Reason: PAIN LEVEL 6-10 Last Admin: 04/08/18 10:41 Dose: 10 mg Pantoprazole Sodium (Protonix -) 40 mg PO DAILY [facility] Last Admin: 04/08/18 10:40 Dose: 40 mg Prednisone (Deltasone -) 20 mg PO DAILY [facility] Last Admin: 04/08/18 10:40 Dose: 20 mg Psyllium Hydrophilic Mucilloid (Metamucil (Sugar-Free) -) 5.85 gm PO BID [facility] Last Admin: 04/08/18 10:46 Dose: 5.85 gm Senna (Senna -) 2 tab PO HS PRN PRN Reason: CONSTIPATION Laboratory Results - last 24 hr 04/07/18 04/07/18 04/08/18 16:22 21:25 05:34 WBC RBC Hgb Hct MCV MCH MCHC RDW Plt Count MPV Sodium Potassium Chloride Carbon Dioxide Anion Gap BUN Creatinine Creat Clearance w eGFR POC Glucometer 216 275 202 Random Glucose Calcium Phosphorus Magnesium Total Bilirubin AST ALT Alkaline Phosphatase Ammonia LD Total B-Natriuretic Peptide Total Protein Albumin 04/08/18 04/08/18 04/08/18 06:30 06:30 06:30 WBC 12.5 H RBC 3.83 L Hgb 11.6 L Hct 36.6 MCV 95.6 MCH 30.2 MCHC 31.6 L RDW 18.6 H Plt Count 98 L MPV 10.4 Sodium 132 L Potassium 4.2 Chloride 93 L Carbon Dioxide 29 Anion Gap 11 BUN 86 H Creatinine 2.1 H Creat Clearance w eGFR 32.16 POC Glucometer Random Glucose 203 H Calcium 8.0 L Phosphorus 4.0 Magnesium 2.5 H Total Bilirubin 1.2 H AST 138 H ALT 436 H Alkaline Phosphatase 189 H Ammonia 16.90 LD Total B-Natriuretic Peptide Total Protein 5.7 L Albumin 2.8 L 04/08/18 04/08/18 06:30 11:37 WBC RBC Hgb Hct MCV MCH MCHC RDW Plt Count MPV Sodium Potassium Chloride Carbon Dioxide Anion Gap BUN Creatinine Creat Clearance w eGFR POC Glucometer 301 Random Glucose Calcium Phosphorus Magnesium Total Bilirubin AST ALT Alkaline Phosphatase Ammonia LD Total 390 H B-Natriuretic Peptide 16658.5 H Total Protein Albumin Microbiology 03/28/18 06:43 Blood - Peripheral Venous Blood Culture - Final NO GROWTH AFTER 5 DAYS INCUBATION 03/28/18 06:43 Blood - Peripheral Venous Blood Culture - Final NO GROWTH AFTER 5 DAYS INCUBATION 03/31/18 11:45 Urine - Urine Clean Catch Urine Culture - Final NO GROWTH OBTAINED 03/28/18 22:00 Urine For Antigen Detection Legionella Antigen - Final 03/28/18 22:00 Urine For Antigen Detection Streptococcus pneumoniae Antigen (M - Final ASSESSMENT AND PLAN: 62 year old male with significant past medical history of copd, cabgx3 2012, bio avr 2012, pad s/p b/l sfa occlusions, syst chf s/p medtronic icd, htn, hld, a-tach, CKD (baseline cr 2.2-2.4), admitted with shortness of breath. -Acute hypoxic respiratory failure -Acute influenza A illness -Acute LLL HCAP with loculated pleural effusion -Acute on chronic systolic heart failure exacerbation -Abnormal LFTs, suspect passive hepatic congestion -Hepatocellular disease, ?Passive hepatic congestion -Fall on 04/07/2018 -Elevated troponin, suspect demand type II NSTEMI from above -Cardiomyopathy (EF 30-35%) s/p medtronic ICD -Atrial fibrillation not on AC due to risk of falls -HTN -HLD -Bioprosthetic AVR 2012 -CABG x 3 -PAD s/p bilateral SFA occlusion -CKD (baseline cr 2.2-2.4) -Anemia of chronic disease Plan: Mental status improved, trauma w/u 1/2 neg post fall. LFTs improved, no abdominal symptoms, follow up hep panel. Abdominal US noted. GI input noted. Hold statin for now. Unable to get MRCP, improved, suspect is from passive hepatic congestion, monitor. s/p tamiflu and zosyn, completed treatment.Prednisone PO taper Continue lasix 80 mg IV BID, taper in 24 hours, with strict I/Os, daily weights , Cardiology/pulmonary/nephrology input appreciated. Neurology input noted. Check ammonia levels. Change lactulose to standing for now. Metoprolol/ASA Bowel regimen DVTPPx heparin PT eval and CM input for d/c planning. dispo planning in 2-3 days if continues to improve. Plan discussed with patient in detail, all questions answered.
--- NOTE | 2018-04-08 13:21 | PN ---
Progress Note (short form) - Note Progress Note: PULMONARY Feeling better today. States breathing is better. +nonproductive cough. Vital Signs Period Temp Pulse Resp BP Sys/Le Pulse Ox Last 24 Hr 97.3 F-98.1 F 62-98 19-20 136-155/75-98 99 Gen: NAD in chair Heart: RRR Lung: decreased breath sounds at the bases Abd: soft, nontender Ext: no edema CBC, BMP 04/08/18 06:30 04/08/18 06:30 Active Medications Aspirin (Ecotrin -) 81 mg PO DAILY [facility] Last Admin: 04/08/18 10:40 Dose: 81 mg Benzocaine/Menthol (Cepacol Lozenge -) 1 each MM PRN PRN PRN Reason: SORE THROAT Last Admin: 04/03/18 09:26 Dose: 1 each Budesonide/Formoterol Fumarate (Symbicort 80/4.5mcg -) 2 puff IH BID [facility] Last Admin: 04/08/18 10:39 Dose: 2 puff Cholecalciferol (Vitamin D3 -) 2,000 unit PO DAILY [facility] Last Admin: 04/08/18 10:40 Dose: 2,000 unit Cyclobenzaprine HCl (Flexeril -) 5 mg PO BID [facility] Last Admin: 04/08/18 10:40 Dose: 5 mg Docusate Sodium (Colace -) 100 mg PO TID [facility] Last Admin: 04/08/18 05:12 Dose: Not Given Furosemide (Lasix Injection -) 80 mg IVPUSH BID@0600,1400 [facility] Last Admin: 04/08/18 06:19 Dose: 80 mg Heparin Sodium (Porcine) (Heparin -) 5,000 unit SQ TID [facility] Last Admin: 04/08/18 06:19 Dose: 5,000 unit Insulin Aspart (Novolog Vial Sliding Scale -) 1 vial SQ ACHS [facility]; Protocol Last Admin: 04/08/18 11:38 Dose: 8 units Ipratropium [place] (Atrovent 0.02% Nebulizer -) 1 amp NEB Q6H PRN PRN Reason: DYSPEPSIA Stop: 04/09/18 12:06 Last Admin: 04/08/18 03:52 Dose: 1 amp Metoprolol Succinate (Toprol Xl -) 50 mg PO BID [facility] Last Admin: 04/08/18 10:40 Dose: 50 mg Metoprolol Tartrate (Lopressor Injection -) 5 mg IVPUSH Q4H PRN PRN Reason: TACHYCARDIA Last Admin: 04/01/18 21:40 Dose: 5 mg Oxycodone HCl (Roxicodone -) 10 mg PO Q6H PRN PRN Reason: PAIN LEVEL 6-10 Last Admin: 04/08/18 10:41 Dose: 10 mg Pantoprazole Sodium (Protonix -) 40 mg PO DAILY [facility] Last Admin: 04/08/18 10:40 Dose: 40 mg Prednisone (Deltasone -) 20 mg PO DAILY [facility] Last Admin: 04/08/18 10:40 Dose: 20 mg Psyllium Hydrophilic Mucilloid (Metamucil (Sugar-Free) -) 5.85 gm PO BID [facility] Last Admin: 04/08/18 10:46 Dose: 5.85 gm Senna (Senna -) 2 tab PO HS PRN PRN Reason: CONSTIPATION A/P Acute on Chronic Hypoxic Respiratory Failure Influenza A Acute on Chronic Systolic Heart Failure Mitral Regurgitation Acute COPD Exacerbation +Troponins likely [place] Ischemia Atrial Flutter h/o AVR Pulmonary HTN - O2 to keep SpO2>90% - prednisone taper - inhaled bronchodilators - lasix - monitor urine output, creatinine - rate control - DVT prophylaxis
--- NOTE | 2018-04-08 14:55 | PN ---
Progress Note, Physician History of Present Illness: Pt seen and examined at bedside. He feels that his breathing is starting to improve. He still has significant lower ext edema. - Current Medication List Current Medications: Active Medications Aspirin (Ecotrin -) 81 mg PO DAILY [facility] Last Admin: 04/08/18 10:40 Dose: 81 mg Benzocaine/Menthol (Cepacol Lozenge -) 1 each MM PRN PRN PRN Reason: SORE THROAT Last Admin: 04/03/18 09:26 Dose: 1 each Budesonide/Formoterol Fumarate (Symbicort 80/4.5mcg -) 2 puff IH BID [facility] Last Admin: 04/08/18 10:39 Dose: 2 puff Cholecalciferol (Vitamin D3 -) 2,000 unit PO DAILY [facility] Last Admin: 04/08/18 10:40 Dose: 2,000 unit Cyclobenzaprine HCl (Flexeril -) 5 mg PO BID [facility] Last Admin: 04/08/18 10:40 Dose: 5 mg Docusate Sodium (Colace -) 100 mg PO TID [facility] Last Admin: 04/08/18 13:38 Dose: Not Given Furosemide (Lasix Injection -) 80 mg IVPB BID@0600,1400 [facility] Heparin Sodium (Porcine) (Heparin -) 5,000 unit SQ TID [facility] Last Admin: 04/08/18 13:38 Dose: 5,000 unit Insulin Aspart (Novolog Vial Sliding Scale -) 1 vial SQ ACHS [facility]; Protocol Last Admin: 04/08/18 11:38 Dose: 8 units Ipratropium [place] (Atrovent 0.02% Nebulizer -) 1 amp NEB Q6H PRN PRN Reason: DYSPEPSIA Stop: 04/09/18 12:06 Last Admin: 04/08/18 03:52 Dose: 1 amp Metoprolol Succinate (Toprol Xl -) 50 mg PO BID [facility] Last Admin: 04/08/18 10:40 Dose: 50 mg Metoprolol Tartrate (Lopressor Injection -) 5 mg IVPUSH Q4H PRN PRN Reason: TACHYCARDIA Last Admin: 04/01/18 21:40 Dose: 5 mg Oxycodone HCl (Roxicodone -) 10 mg PO Q6H PRN PRN Reason: PAIN LEVEL 6-10 Last Admin: 04/08/18 10:41 Dose: 10 mg Pantoprazole Sodium (Protonix -) 40 mg PO DAILY [facility] Last Admin: 04/08/18 10:40 Dose: 40 mg Prednisone (Deltasone -) 20 mg PO DAILY [facility] Last Admin: 04/08/18 10:40 Dose: 20 mg Psyllium Hydrophilic Mucilloid (Metamucil (Sugar-Free) -) 5.85 gm PO BID [facility] Last Admin: 04/08/18 10:46 Dose: 5.85 gm Senna (Senna -) 2 tab PO HS PRN PRN Reason: CONSTIPATION - Objective Vital Signs: Vital Signs Temperature 98.2 F 04/08/18 13:25 Pulse Rate 66 04/08/18 13:25 Respiratory Rate 18 04/08/18 13:25 Blood Pressure 154/87 04/08/18 13:25 O2 Sat by Pulse Oximetry (%) 99 04/07/18 20:34 Constitutional: Yes: Calm Eyes: Yes: Conjunctiva Clear HENT: Yes: Atraumatic Neck: Yes: Supple Cardiovascular: Yes: S1, S2 Respiratory: Yes: On Nasal O2, Rhonchi Gastrointestinal: Yes: Soft Genitourinary: Yes: WNL Extremities: Yes: WNL Edema: LLE: 2+, RLE: 2+ Neurological: Yes: Oriented Psychiatric: Yes: Oriented Labs: CBC, BMP 04/08/18 06:30 04/08/18 06:30 INR, PTT INR 1.36 (0.83-1.09) H 03/28/18 07:15 Problem List - Problems (1) Acute exacerbation of CHF (congestive heart failure) Code(s): I50.9 - HEART FAILURE, UNSPECIFIED Qualifiers: Heart failure type: combined systolic and diastolic Qualified Code(s): I50.43 - Acute on chronic combined systolic (congestive) and diastolic ( congestive) heart failure (2) Chronic kidney disease (CKD) Code(s): N18.9 - CHRONIC KIDNEY DISEASE, UNSPECIFIED Qualifiers: Chronic kidney disease stage: stage 3 (moderate) Qualified Code(s): N18.3 - Chronic kidney disease, stage 3 (moderate) Assessment/Plan Current Medications Generic Name Dose Route Start Last Admin Trade Name Freq PRN Reason Stop Dose Admin Aspirin 81 mg 03/29/18 10:00 04/08/18 10:40 Ecotrin - PO 81 mg DAILY MANJU Administration Benzocaine/Menthol 1 each 04/03/18 08:00 04/03/18 09:26 Cepacol Lozenge - MM 1 each PRN PRN Administration SORE THROAT Budesonide/Formoterol Fumarate 2 puff 04/02/18 22:00 04/08/18 10:39 Symbicort 80/4.5mcg - IH 2 puff BID MANJU Administration Cholecalciferol 2,000 unit 03/29/18 10:00 04/08/18 10:40 Vitamin D3 - PO 2,000 unit DAILY MANJU Administration Cyclobenzaprine HCl 5 mg 03/28/18 22:00 04/08/18 10:40 Flexeril - PO 5 mg BID MANJU Administration Docusate Sodium 100 mg 03/28/18 14:00 04/08/18 13:38 Colace - PO Not Given TID MANJU Furosemide 80 mg 04/09/18 06:00 Lasix Injection - IVPB BID@0600,1400 [facility] Heparin Sodium (Porcine) 5,000 unit 04/07/18 22:00 04/08/18 13:38 Heparin - SQ 5,000 unit TID MANJU Administration Insulin Aspart 1 vial 03/28/18 12:23 04/08/18 11:38 Novolog Vial Sliding Scale - SQ 8 units ACHS MANJU Administration Protocol Ipratropium [place] 1 amp 04/02/18 12:06 04/08/18 03:52 Atrovent 0.02% Nebulizer - NEB 04/09/18 12:06 1 amp Q6H PRN Administration DYSPEPSIA Metoprolol Succinate 50 mg 04/02/18 22:00 04/08/18 10:40 Toprol Xl - PO 50 mg BID MANJU Administration Metoprolol Tartrate 5 mg 03/31/18 11:02 04/01/18 21:40 Lopressor Injection - IVPUSH 5 mg Q4H PRN Administration TACHYCARDIA Oxycodone HCl 10 mg 04/04/18 16:55 04/08/18 10:41 Roxicodone - PO 10 mg Q6H PRN Administration PAIN LEVEL 6-10 Pantoprazole Sodium 40 mg 03/29/18 10:00 04/08/18 10:40 Protonix - PO 40 mg DAILY MANJU Administration Prednisone 20 mg 04/06/18 10:01 04/08/18 10:40 Deltasone - PO 20 mg DAILY MANJU Administration Psyllium Hydrophilic Mucilloid 5.85 gm 03/28/18 22:00 04/08/18 10:46 Metamucil (Sugar-Free) - PO 5.85 gm BID MANJU Administration Senna 2 tab 04/02/18 09:45 Senna - PO HS PRN CONSTIPATION Impression 1. CKD 2. proteinuria 3. CAD 4. CHF 5. COPD 6. DM 7. HTN 8. azotemia/fior 9. anemia Plan - renal function improving - cont lasix - likely a component of cardiorenal - restrict fluid intake - cont to monitor renal function - pt remains fluid overloaded - cardio input appreciated - will follow
--- NOTE | 2018-04-08 15:34 | PN ---
Progress Note, Physician History of Present Illness: still does not feel well still says anxious and dizzy - Current Medication List Current Medications: Active Medications Aspirin (Ecotrin -) 81 mg PO DAILY [facility] Last Admin: 04/08/18 10:40 Dose: 81 mg Benzocaine/Menthol (Cepacol Lozenge -) 1 each MM PRN PRN PRN Reason: SORE THROAT Last Admin: 04/03/18 09:26 Dose: 1 each Budesonide/Formoterol Fumarate (Symbicort 80/4.5mcg -) 2 puff IH BID [facility] Last Admin: 04/08/18 10:39 Dose: 2 puff Cholecalciferol (Vitamin D3 -) 2,000 unit PO DAILY [facility] Last Admin: 04/08/18 10:40 Dose: 2,000 unit Cyclobenzaprine HCl (Flexeril -) 5 mg PO BID [facility] Last Admin: 04/08/18 10:40 Dose: 5 mg Docusate Sodium (Colace -) 100 mg PO TID [facility] Last Admin: 04/08/18 13:38 Dose: Not Given Furosemide (Lasix Injection -) 80 mg IVPB BID@0600,1400 [facility] Heparin Sodium (Porcine) (Heparin -) 5,000 unit SQ TID [facility] Last Admin: 04/08/18 13:38 Dose: 5,000 unit Insulin Aspart (Novolog Vial Sliding Scale -) 1 vial SQ ACHS [facility]; Protocol Last Admin: 04/08/18 11:38 Dose: 8 units Ipratropium [place] (Atrovent 0.02% Nebulizer -) 1 amp NEB Q6H PRN PRN Reason: DYSPEPSIA Stop: 04/09/18 12:06 Last Admin: 04/08/18 03:52 Dose: 1 amp Metoprolol Succinate (Toprol Xl -) 50 mg PO BID [facility] Last Admin: 04/08/18 10:40 Dose: 50 mg Metoprolol Tartrate (Lopressor Injection -) 5 mg IVPUSH Q4H PRN PRN Reason: TACHYCARDIA Last Admin: 04/01/18 21:40 Dose: 5 mg Oxycodone HCl (Roxicodone -) 10 mg PO Q6H PRN PRN Reason: PAIN LEVEL 6-10 Last Admin: 04/08/18 10:41 Dose: 10 mg Pantoprazole Sodium (Protonix -) 40 mg PO DAILY [facility] Last Admin: 04/08/18 10:40 Dose: 40 mg Prednisone (Deltasone -) 20 mg PO DAILY [facility] Last Admin: 04/08/18 10:40 Dose: 20 mg Psyllium Hydrophilic Mucilloid (Metamucil (Sugar-Free) -) 5.85 gm PO BID [facility] Last Admin: 04/08/18 10:46 Dose: 5.85 gm Senna (Senna -) 2 tab PO HS PRN PRN Reason: CONSTIPATION - Objective Vital Signs: Vital Signs Temperature 98.2 F 04/08/18 13:25 Pulse Rate 66 04/08/18 13:25 Respiratory Rate 18 04/08/18 13:25 Blood Pressure 154/87 04/08/18 13:25 O2 Sat by Pulse Oximetry (%) 99 04/07/18 20:34 Constitutional: Yes: Calm, Anxious, Mild Distress Cardiovascular: Yes: Regular Rate and Rhythm Respiratory: Yes: Regular, CTA Bilaterally Gastrointestinal: Yes: Normal Bowel Sounds, Soft Musculoskeletal: Yes: WNL Extremities: Yes: WNL Neurological: Yes: Alert, Oriented Psychiatric: Yes: Alert, Oriented Labs: CBC, BMP 04/08/18 06:30 04/08/18 06:30 INR, PTT INR 1.36 (0.83-1.09) H 03/28/18 07:15 Assessment/Plan Problem List - Problems (1) Acute exacerbation of CHF (congestive heart failure) Code(s): I50.9 - HEART FAILURE, UNSPECIFIED Qualifiers: (2) Influenza A Code(s): J10.1 - FLU DUE TO OTH IDENT INFLUENZA VIRUS W OTH RESP MANIFEST (3) Respiratory distress Code(s): R06.00 - DYSPNEA, UNSPECIFIED (4) COPD (chronic obstructive pulmonary disease) Code(s): J44.9 - CHRONIC OBSTRUCTIVE PULMONARY DISEASE, UNSPECIFIED (5) Afib Code(s): I48.91 - UNSPECIFIED ATRIAL FIBRILLATION Qualifiers: Atrial fibrillation type: chronic Qualified Code(s): I48.2 - Chronic atrial fibrillation (6) Chronic respiratory failure Code(s): J96.10 - CHRONIC RESPIRATORY FAILURE, UNSP W HYPOXIA OR HYPERCAPNIA (7) Pneumonia Code(s): J18.9 - PNEUMONIA, UNSPECIFIED ORGANISM Qualifiers: Pneumonia type: due to unspecified organism Laterality: left Lung location: lower lobe of lung Qualified Code(s): J18.1 - Lobar pneumonia, unspecified organism (8) S/P AVR Code(s): Z95.2 - PRESENCE OF PROSTHETIC HEART VALVE (9) CAD (coronary artery disease) Code(s): I25.10 - ATHSCL HEART DISEASE OF [place] CORONARY ARTERY W/O ANG PCTRS Qualifiers: [place] vs. transplanted heart: [place] heart Associated angina: without angina (10) COPD (chronic obstructive pulmonary disease) Code(s): J44.9 - CHRONIC OBSTRUCTIVE PULMONARY DISEASE, UNSPECIFIED Qualifiers: COPD type: COPD with acute exacerbation Qualified Code(s): J44.1 - Chronic obstructive pulmonary disease with (acute) exacerbation (11) Chronic kidney disease (CKD) Code(s): N18.9 - CHRONIC KIDNEY DISEASE, UNSPECIFIED Qualifiers: Chronic kidney disease stage: stage 3 (moderate) Qualified Code(s): N18.3 - Chronic kidney disease, stage 3 (moderate) (12) Diabetes mellitus with chronic kidney disease Code(s): E11.22 - TYPE 2 DIABETES MELLITUS W DIABETIC CHRONIC KIDNEY DISEASE; N18.9 - CHRONIC KIDNEY DISEASE, UNSPECIFIED Qualifiers: Diabetes mellitus type: type 2 Chronic kidney disease stage: stage 3 ( moderate) (13) Peripheral vascular disease Code(s): I73.9 - PERIPHERAL VASCULAR DISEASE, UNSPECIFIED (15) Acute on chronic respiratory failure with hypoxemia Code(s): J96.21 - ACUTE AND CHRONIC RESPIRATORY FAILURE WITH HYPOXIA Assessment/Plan 62 y.o. male with PMH of COPD on home O2, CHF, CAD s/p CABG, AICD, bioprosthetic AVR, MR, Atrial Fibrillation, CKD, HTN, DM and PVD presenting with SOB/tachynea, chest discomfort, leukocytosis, lactic acidosis, pulmonary congestion. Recently admitted to the hospital Influenza A Possible HCAP Sepsis Acute on chronic CHF COPD CKD DM CAD s/p CABG s/p AICD s/p AVR MR AFIB plan continue current mgmt still feeling very wierd monitor closely rest as per the team
--- NOTE | 2018-04-08 16:17 | PN ---
Physical Exam: SUBJECTIVE: Patient seen and examined at bed side this morning. States he feels much better. Shortness of breath has improved. PM: RN called this afternoon and reported patient felt dizzy after receiving IV Lasix (when he had just got IV Lasix 40 mg) so another 40mg IV lasix was held. This evening, patient again reported of dizziness and vertigo on/off. He reported similar symptoms when he fell 2 days ago. Vitals were taken, no orthostatics, neuro exam benign, physical exam benign. OBJECTIVE: Vital Signs Period Temp Pulse Resp BP Sys/El Pulse Ox Last 24 Hr 97.3 F-98.2 F 62-98 18-20 136-155/76-98 99 GENERAL: Middle aged obese male, lying in bed, Awake, alert, confused, in mild respiratory distress, nasal canula @ 2L. HEAD: Normal with no signs of trauma. EYES:EOM intact, no pallor or icterus. EARS, NOSE, THROAT: Ears normal, moist mucous membranes. NECK:Supple. LUNGS: B/L Breath sounds equal, bibasilar crackles , No accessory muscle use. HEART: Irregularly irregular, rate, normal S1 and S2 with systolic murmur. ABDOMEN: Soft, tenderness in the left lower quadrant, no organomegaly. MUSCULOSKELETAL: Normal range of motion at all joints. No bony deformities or tenderness. No CVA tenderness. UPPER EXTREMITIES: 2+ pulses, warm, well-perfused. No cyanosis. No clubbing. No peripheral edema. LOWER EXTREMITIES: 2+ pulses, warm, well-perfused. No calf tenderness. Trace pitting edema b/l-improved. NEUROLOGICAL: No facial droop. Normal speech. Gait not observed. PSYCHIATRIC: Cooperative. Good eye contact. Appropriate mood and affect. SKIN: Warm, dry, normal turgor, no rashes or lesions noted, normal capillary refill. Laboratory Results - last 24 hr 04/07/18 04/07/18 04/08/18 16:22 21:25 05:34 WBC RBC Hgb Hct MCV MCH MCHC RDW Plt Count MPV Sodium Potassium Chloride Carbon Dioxide Anion Gap BUN Creatinine Creat Clearance w eGFR POC Glucometer 216 275 202 Random Glucose Calcium Phosphorus Magnesium Total Bilirubin AST ALT Alkaline Phosphatase Ammonia LD Total B-Natriuretic Peptide Total Protein Albumin Hepatitis A IgM Ab Hep Bs Antigen Hep B Core IgM Ab Hepatitis C Antibody 04/08/18 04/08/18 04/08/18 06:30 06:30 06:30 WBC 12.5 H RBC 3.83 L Hgb 11.6 L Hct 36.6 MCV 95.6 MCH 30.2 MCHC 31.6 L RDW 18.6 H Plt Count 98 L MPV 10.4 Sodium 132 L Potassium 4.2 Chloride 93 L Carbon Dioxide 29 Anion Gap 11 BUN 86 H Creatinine 2.1 H Creat Clearance w eGFR 32.16 POC Glucometer Random Glucose 203 H Calcium 8.0 L Phosphorus 4.0 Magnesium 2.5 H Total Bilirubin 1.2 H AST 138 H ALT 436 H Alkaline Phosphatase 189 H Ammonia 16.90 LD Total B-Natriuretic Peptide Total Protein 5.7 L Albumin 2.8 L Hepatitis A IgM Ab Hep Bs Antigen Hep B Core IgM Ab Hepatitis C Antibody 04/08/18 04/08/18 04/08/18 06:30 06:30 11:37 WBC RBC Hgb Hct MCV MCH MCHC RDW Plt Count MPV Sodium Potassium Chloride Carbon Dioxide Anion Gap BUN Creatinine Creat Clearance w eGFR POC Glucometer 301 Random Glucose Calcium Phosphorus Magnesium Total Bilirubin AST ALT Alkaline Phosphatase Ammonia LD Total 390 H B-Natriuretic Peptide 37138.5 H Total Protein Albumin Hepatitis A IgM Ab Cancelled Hep Bs Antigen Cancelled Hep B Core IgM Ab Cancelled Hepatitis C Antibody Cancelled Active Medications Generic Name Dose Route Start Last Admin Trade Name Freq PRN Reason Stop Dose Admin Aspirin 81 mg 03/29/18 10:00 04/08/18 10:40 Ecotrin - PO 81 mg DAILY MANJU Administration Benzocaine/Menthol 1 each 04/03/18 08:00 04/03/18 09:26 Cepacol Lozenge - MM 1 each PRN PRN Administration SORE THROAT Budesonide/Formoterol Fumarate 2 puff 04/02/18 22:00 04/08/18 10:39 Symbicort 80/4.5mcg - IH 2 puff BID MANUJ Administration Cholecalciferol 2,000 unit 03/29/18 10:00 04/08/18 10:40 Vitamin D3 - PO 2,000 unit DAILY MANJU Administration Cyclobenzaprine HCl 5 mg 03/28/18 22:00 04/08/18 10:40 Flexeril - PO 5 mg BID MANJU Administration Docusate Sodium 100 mg 03/28/18 14:00 04/08/18 13:38 Colace - PO Not Given TID MANJU Furosemide 80 mg 04/09/18 06:00 Lasix Injection - IVPB BID@0600,1400 [facility] Heparin Sodium (Porcine) 5,000 unit 04/07/18 22:00 04/08/18 13:38 Heparin - SQ 5,000 unit TID MANJU Administration Insulin Aspart 1 vial 03/28/18 12:23 04/08/18 11:38 Novolog Vial Sliding Scale - SQ 8 units ACHS MANJU Administration Protocol Ipratropium [place] 1 amp 04/02/18 12:06 04/08/18 03:52 Atrovent 0.02% Nebulizer - NEB 04/09/18 12:06 1 amp Q6H PRN Administration DYSPEPSIA Metoprolol Succinate 50 mg 04/02/18 22:00 04/08/18 10:40 Toprol Xl - PO 50 mg BID MANJU Administration Metoprolol Tartrate 5 mg 03/31/18 11:02 04/01/18 21:40 Lopressor Injection - IVPUSH 5 mg Q4H PRN Administration TACHYCARDIA Oxycodone HCl 10 mg 04/04/18 16:55 04/08/18 10:41 Roxicodone - PO 10 mg Q6H PRN Administration PAIN LEVEL 6-10 Pantoprazole Sodium 40 mg 03/29/18 10:00 04/08/18 10:40 Protonix - PO 40 mg DAILY MANJU Administration Prednisone 20 mg 04/06/18 10:01 04/08/18 10:40 Deltasone - PO 20 mg DAILY MANJU Administration Psyllium Hydrophilic Mucilloid 5.85 gm 03/28/18 22:00 04/08/18 10:46 Metamucil (Sugar-Free) - PO 5.85 gm BID MANJU Administration Senna 2 tab 04/02/18 09:45 Senna - PO HS PRN CONSTIPATION ASSESSMENT/PLAN: CT chest: Partially loculated left pleural effusion with atelectactic changes of the lower lobe. Cardiomegaly and possible mild congestion. Prominent mediastinal lymph nodes. Trace ascites. Abdominal CT: Findings consistent with advanced Hepatocellular disease. Trace ascites. 04/08/18: ultrasound of abdomen: Fatty liver vs Hepatocellular disease. Small right renal cortical cyst measuring 9mm. Right pleural effusion. ASSESSMENT/PLAN: Patient is a 62 year old male with significant past medical history of COPD on 3L home O2, pEFHF, CAD, ICD placement, PAD, DM, Atrial fibrillation not on A/c due to risk of fall was brought in to the ED by family members due to shortness of breath. # Dizziness with vertigo- possible BPPV complaining of dizziness this afternoon (2 episodes today), one episode two days ago when he had an unwitnessed fall Doesn't have orthostatic hypotension. CT head negative for acute pathology Start Meclizine 12.5 mg TID Fall precautions # Transaminitis could be from hepatic congestion from CHF LFT's improving. Could also be from antibiotics. CT abdomen/pelvis and Ultrasound of abdomen done which showed Hepatocellular disease. GI consult appreciated, MRCP recommended if ICD is compatible. # Altered mental status-improved Normal ammonia. Appreciate Neurology consult # CKD creatinine 2.1 today (baseline 2-2.1). Rising BUN 98, on admission BUN was 29. Could be from Steroid use (now at tapering dose) Appreciate Renal consult. Changed PO to IV Lasix 80 mg BID. Repeat bmp in AM Fluid restriction Avoid Nephrotoxic drugs # Abdominal pain -resolved. # Sinus Tachycardia Continue Lopressor 50mg BID as per cardio. IV Metoprolol 5mg Q4H PRN Discontinue albuterol/duoneb as it might also cause tachycardia. Started on Ipratropium and Symbicort. Continue to monitor in tele. # Acute hypoxic respiratory failure likely secondary to CHF/COPD exacerbation superimposed by Pneumonia and Flu- Resolved Completed Tamiflu course. Changed IV steriods to PO Prednisone 20 mg Daily # Elevated troponins likely from Demand ischemia- # Prolonged Qtc 582 on admission Avoid any Qtc prolonging agents # Normocytic anemia H/H stable. likely from CKD Iron studies: High ferritin, normal Iron. B12 and Folate high. # Atrial fibrillation CHADsVASc score of 4. Not on a/c due to risk of fall. PT to evaluate. # Hypertension-controlled continue Metoprolol 50 BID IV Metoprolol 5mg Q4H PRN for tachycardia. # FEN Not on IV fluids due to volume overloaded. Electrolytes WNL Diabetic diet/fat controlled # Prophylaxis For DVT: On Heparin 5000 IU sq TID FoR GI: On Protonix 40mg Daily # Code status: Full Code # Dispo:Admit to tele inpatient. Duration of stay unknown. Illness, Investigation and Plan of care explained to the patient. He verbalized understanding. Case discussed with Dr. Mathias Problem List - Problems (1) Acute exacerbation of CHF (congestive heart failure) Code(s): I50.9 - HEART FAILURE, UNSPECIFIED Qualifiers: Heart failure type: combined systolic and diastolic Qualified Code(s): I50.43 - Acute on chronic combined systolic (congestive) and diastolic ( congestive) heart failure (2) Influenza A Code(s): J10.1 - FLU DUE TO OTH IDENT INFLUENZA VIRUS W OTH RESP MANIFEST (3) Neck pain on right side Code(s): M54.2 - CERVICALGIA (4) Respiratory distress Code(s): R06.00 - DYSPNEA, UNSPECIFIED (5) COPD (chronic obstructive pulmonary disease) Code(s): J44.9 - CHRONIC OBSTRUCTIVE PULMONARY DISEASE, UNSPECIFIED (6) ERROL (acute kidney injury) Code(s): N17.9 - ACUTE KIDNEY FAILURE, UNSPECIFIED (7) Afib Code(s): I48.91 - UNSPECIFIED ATRIAL FIBRILLATION Qualifiers: Atrial fibrillation type: chronic Qualified Code(s): I48.2 - Chronic atrial fibrillation Visit type - Emergency Visit Emergency Visit: Yes ED Registration Date: 03/28/18 Care time: The patient presented to the Emergency Department on the above date and was hospitalized for further evaluation of their emergent condition. - New Patient This patient is new to me today: No - Critical Care Critical Care patient: No - Discharge Referral Referred to [facility] Med P.C.: No
[2018-04-08] MEDS ORDERED: MECLIZINE HCL 25 MG TABLET (FP) PO PRN (16:48)
[2018-04-08] MEDS ORDERED: INSULIN SLIDING SCALE (NOVOLOG) 1 VIAL SQ ONE (19:13)
[2018-04-09 02:15] LABS: HEP.C VIRUS AB <0.1 s/co ratio (0.0-0.9)
[2018-04-09] MEDS: FUROSEMIDE 100 MG/10 ML INJECTABLE VIAL IVPB SCH ×2 (05:42→13:50)
[2018-04-09] MEDS: DOCUSATE SODIUM 100 MG CAPSULE (FP) PO SCH ×2 (05:42→13:51)
[2018-04-09] MEDS: HEPARIN NA (PORCINE) 5,000 UNITS/ML 1ML VIAL SQ SCH ×2 (05:43→13:50)
[2018-04-09] MEDS: INSULIN SLIDING SCALE (NOVOLOG) 1 VIAL SQ SCH ×3 (06:45→16:53)
[2018-04-09 07:26] LABS: INR 1.28 (0.83-1.09); PROTHROMBIN TIME (PATIENT) 15.1 SEC (9.7-13.0)
--- NOTE | 2018-04-09 07:26 | PN ---
Teaching Attending Note Name of Resident: Paula Yeung ATTENDING PHYSICIAN STATEMENT I saw and evaluated the patient. I reviewed the resident's note and discussed the case with the resident. I agree with the resident's findings and plan as documented with exceptions below. SUBJECTIVE: Patient seen and examined, breathing improved, urinating a lot, OBJECTIVE: Vital Signs Period Temp Pulse Resp BP Sys/El Pulse Ox Last 24 Hr 97.4 F-98.4 F 66-98 18-20 143-159/82-91 95-97 Intake & Output 04/06/18 04/07/18 04/08/18 04/09/18 23:59 23:59 23:59 23:59 Intake Total 770 920 920 Output Total 1426 4322 676 Balance -830 -1346 245 Weight 199 lb 2 oz 195 lb 191 lb General: sitting in bed in no acute distress Chest: few basilar rales, improved air entry, improved exam Abdomen: soft, obese, NT throughout, neg Marie's sign, positive bowel sounds Extremities: 1+ pedal edema, improved Home Medications Medication Instructions Recorded Aspirin [Aspirin EC] 81 mg PO DAILY 06/18/15 Zolpidem Tartrate [Ambien] 10 mg PO HS 06/18/15 Psyllium [Metamucil (Sugar-Free) -] 5.85 gm PO BID #1 bottle 06/02/17 Docusate Sodium [Colace -] 100 mg PO TID #90 capsule 09/22/17 Cholecalciferol (Vitamin D3) 2,000 unit PO DAILY #30 capsule 12/25/17 [Vitamin D3] Budesonide/Formeterol Fumarate 1 puff IH DAILY inhaler 12/30/17 [SYMBICORT 160/4.5mcg -] Cyclobenzaprine HCl 5 mg PO BID #28 tablet 12/30/17 Glipizide [Glucotrol -] 5 mg PO BID 01/11/18 Carvedilol [Coreg -] 25 mg PO BID #60 tablet 02/14/18 Pantoprazole Sodium [Protonix -] 40 mg PO DAILY #14 tablet.ec 02/22/18 Tiotropium [place] [Spiriva 2 puff IH DAILY #1 inhaler 02/22/18 Respimat] predniSONE [Deltasone -] 5 mg PO ASDIR #78 tab 02/22/18 Atorvastatin Ca [Lipitor] 20 mg PO HS 02/23/18 Furosemide [Lasix -] 80 mg PO DAILY #60 tablet 03/15/18 Insulin (Novolog) [Novolog Vial] See Protocol SQ BID PRN 03/23/18 Lactulose [Cephulac -] 10 - 20 gm PO DAILY PRN #1 bottle 03/23/18 Oxycodone HCl/Acetaminophen 1 each PO QID #120 tablet MDD 4 03/23/18 [Percocet 10-325 mg Tablet] Active Medications Aspirin (Ecotrin -) 81 mg PO DAILY [facility] Last Admin: 04/08/18 10:40 Dose: 81 mg Benzocaine/Menthol (Cepacol Lozenge -) 1 each MM PRN PRN PRN Reason: SORE THROAT Last Admin: 04/03/18 09:26 Dose: 1 each Budesonide/Formoterol Fumarate (Symbicort 80/4.5mcg -) 2 puff IH BID [facility] Last Admin: 04/08/18 21:14 Dose: 2 puff Cholecalciferol (Vitamin D3 -) 2,000 unit PO DAILY [facility] Last Admin: 04/08/18 10:40 Dose: 2,000 unit Cyclobenzaprine HCl (Flexeril -) 5 mg PO BID [facility] Last Admin: 04/08/18 21:13 Dose: 5 mg Docusate Sodium (Colace -) 100 mg PO TID [facility] Last Admin: 04/09/18 05:42 Dose: 100 mg Furosemide (Lasix Injection -) 80 mg IVPB BID@0600,1400 [facility] Last Admin: 04/09/18 05:42 Dose: 80 mg Heparin Sodium (Porcine) (Heparin -) 5,000 unit SQ TID [facility] Last Admin: 04/09/18 05:43 Dose: 5,000 unit Insulin Aspart (Novolog Vial Sliding Scale -) 1 vial SQ [facility]; Protocol Last Admin: 04/09/18 06:45 Dose: 2 units Ipratropium [place] (Atrovent 0.02% Nebulizer -) 1 amp NEB Q6H PRN PRN Reason: DYSPEPSIA Stop: 04/09/18 12:06 Last Admin: 04/08/18 22:44 Dose: 1 amp Meclizine HCl (Antivert -) 12.5 mg PO Q8H PRN PRN Reason: VERTIGO Metoprolol Succinate (Toprol Xl -) 50 mg PO BID [facility] Last Admin: 04/08/18 21:14 Dose: 50 mg Metoprolol Tartrate (Lopressor Injection -) 5 mg IVPUSH Q4H PRN PRN Reason: TACHYCARDIA Last Admin: 04/01/18 21:40 Dose: 5 mg Oxycodone HCl (Roxicodone -) 10 mg PO Q6H PRN PRN Reason: PAIN LEVEL 6-10 Last Admin: 04/08/18 21:17 Dose: 10 mg Pantoprazole Sodium (Protonix -) 40 mg PO DAILY [facility] Last Admin: 04/08/18 10:40 Dose: 40 mg Prednisone (Deltasone -) 20 mg PO DAILY [facility] Last Admin: 04/08/18 10:40 Dose: 20 mg Psyllium Hydrophilic Mucilloid (Metamucil (Sugar-Free) -) 5.85 gm PO BID [facility] Last Admin: 04/08/18 21:14 Dose: Not Given Senna (Senna -) 2 tab PO HS PRN PRN Reason: CONSTIPATION Laboratory Results - last 24 hr 04/07/18 04/08/18 04/08/18 21:10 06:30 11:37 WBC RBC Hgb Hct MCV MCH MCHC RDW Plt Count MPV PT with INR INR Sodium Potassium Chloride Carbon Dioxide Anion Gap BUN Creatinine Creat Clearance w eGFR POC Glucometer 301 Random Glucose Calcium Phosphorus Magnesium Total Bilirubin AST ALT Alkaline Phosphatase Total Protein Albumin Hepatitis A IgM Ab Negative Cancelled Hep Bs Antigen Negative Cancelled Hep B Core IgM Ab Negative Cancelled Hepatitis C Antibody <0.1 Cancelled 04/08/18 04/08/18 04/09/18 16:33 21:16 05:40 WBC RBC Hgb Hct MCV MCH MCHC RDW Plt Count MPV PT with INR INR Sodium Potassium Chloride Carbon Dioxide Anion Gap BUN Creatinine Creat Clearance w eGFR POC Glucometer 257 296 161 Random Glucose Calcium Phosphorus Magnesium Total Bilirubin AST ALT Alkaline Phosphatase Total Protein Albumin Hepatitis A IgM Ab Hep Bs Antigen Hep B Core IgM Ab Hepatitis C Antibody 04/09/18 04/09/18 04/09/18 06:00 06:30 06:30 WBC 13.5 H RBC 3.90 L Hgb 11.7 Hct 37.4 MCV 95.9 MCH 30.1 MCHC 31.4 L RDW 19.3 H Plt Count 80 L MPV 10.5 PT with INR 15.10 H INR 1.28 H Sodium 132 L Potassium 4.1 Chloride 93 L Carbon Dioxide 27 Anion Gap 12 BUN 84 H Creatinine 2.0 H Creat Clearance w eGFR 34.03 POC Glucometer Random Glucose 169 H Calcium 8.1 L Phosphorus 3.7 Magnesium 2.5 H Total Bilirubin 1.2 H AST 73 H ALT 339 H Alkaline Phosphatase 161 H Total Protein 5.8 L Albumin 2.9 L Hepatitis A IgM Ab Hep Bs Antigen Hep B Core IgM Ab Hepatitis C Antibody ASSESSMENT AND PLAN: 62 year old male with significant past medical history of copd, cabgx3 2012, bio avr 2012, pad s/p b/l sfa occlusions, syst chf s/p medtronic icd, htn, hld, a-tach, CKD (baseline cr 2.2-2.4), admitted with shortness of breath. -Acute hypoxic respiratory failure -Acute influenza A illness -Acute LLL HCAP with loculated pleural effusion -Acute on chronic systolic heart failure exacerbation -Abnormal LFTs, suspect passive hepatic congestion -Hepatocellular disease, ?Passive hepatic congestion -Fall on 04/07/2018 -Elevated troponin, suspect demand type II NSTEMI from above -Cardiomyopathy (EF 30-35%) s/p medtronic ICD -Atrial fibrillation/Flutter not on AC due to risk of falls -HTN -HLD -Bioprosthetic AVR 2012 -CABG x 3 -PAD s/p bilateral SFA occlusion -CKD (baseline cr 2.2-2.4) -Anemia of chronic disease Plan: Mental status improved, trauma w/u 04/07/18 neg post fall. LFTs improved, no abdominal symptoms, hep panel neg. Abdominal US noted. GI input noted. Hold statin for now. Unable to get MRCP given ICD, improved, suspect is from passive hepatic congestion, monitor. s/p tamiflu and zosyn, completed treatment.Prednisone PO taper, 10 mg x 2 days, then off. Continue lasix 80 mg IV BID, responding well, Strict I/Os, daily weights, Transition to PO lasix in 24-48 hours Defer to cardiology about chcf anticoagulation Patient continues to be fall risk with reported fall on 04/07/2018. Cardiology/pulmonary/nephrology input appreciated. Neurology input noted. Ammonia levels noted. Lactulose prn. Metoprolol/ASA Bowel regimen DVTPPx heparin PT eval noted dispo plan for home d/c in 48 hours on PO lasix if continues to improve. Plan discussed with patient in detail, all questions answered.
[2018-04-09 07:31] LABS: HEMATOCRIT 37.4 % (35.4-49); HEMOGLOBIN 11.7 GM/dL (11.7-16.9); MCH 30.1 pg (25.7-33.7); MCHC 31.4 g/dl (32.0-35.9); MEAN CELL VOLUME 95.9 fl (80-96); MEAN PLT VOLUME 10.5 fl (7.5-11.1); PLATELET COUNT 80 K/MM3 (134-434); RDW 19.3 % (11.9-15.9); WHITE BLOOD COUNT 13.5 K/mm3 (4.0-10.0)
[2018-04-09 09:04] LABS: BLOOD UREA NITROGEN 84 mg/dL (7-18); GLUCOSE,RANDOM 169 mg/dL (74-106)
[2018-04-09 09:05] LABS: CHLORIDE 93 mmol/L (98-107); POTASSIUM 4.1 mmol/L (3.5-5.1); SODIUM 132 mmol/L (136-145)
[2018-04-09 09:06] LABS: ALBUMIN 2.9 g/dl (3.4-5.0); ALK PHOS 161 U/L (45-117); ANION GAP 12 MMOL/L (8-16); BILIRUBIN,TOTAL 1.2 mg/dL (0.2-1); CALCIUM 8.1 mg/dL (8.5-10.1); CO2 27 mmol/L (21-32); MAGNESIUM 2.5 mg/dL (1.8-2.4); PHOSPHOROUS 3.7 mg/dL (2.5-4.9); SGOT/AST 73 U/L (15-37); SGPT/ALT 339 U/L (13-61); TOT PROT 5.8 g/dl (6.4-8.2)
--- NOTE | 2018-04-09 09:12 | PN ---
Progress Note (short form) - Note Progress Note: Neurology HISTORY OF PRESENT ILLNESS: 62 year old male was brought in to the ED by family members due to shortness of breath. As per the patient, he had been having shortness of breath since a couple of days prior to admission, even at rest, worse on exertion. Denied orthopnea, PND, chest pain, palpitation, cough, fever, chills, rigors or sweating. Per notes, patient was complaining of chest pain, was hypoxic to 92 % @ 3L then was placed in NRB with improvement in saturation. Labs were significant for leukocytosis of 13.1; Lactic acid of 2.1. Influenza A positive, CXR showed Left infiltrate. Tamiflu was given, has been treated for PNA and respiratory compromise. Consulted for AMS. CT head reviewed, without acute changes. Ammonia level normal. Neurologically stable, knows location, knows date, knows name of President. Seems less irritable but is restless and wants to leave. Notes reviewed, c/o dizzyness, started on meclezine. Active Medications Aspirin (Ecotrin -) 81 mg PO DAILY [facility] Last Admin: 04/08/18 10:40 Dose: 81 mg Benzocaine/Menthol (Cepacol Lozenge -) 1 each MM PRN PRN PRN Reason: SORE THROAT Last Admin: 04/03/18 09:26 Dose: 1 each Budesonide/Formoterol Fumarate (Symbicort 80/4.5mcg -) 2 puff IH BID [facility] Last Admin: 04/08/18 21:14 Dose: 2 puff Cholecalciferol (Vitamin D3 -) 2,000 unit PO DAILY [facility] Last Admin: 04/08/18 10:40 Dose: 2,000 unit Cyclobenzaprine HCl (Flexeril -) 5 mg PO BID [facility] Last Admin: 04/08/18 21:13 Dose: 5 mg Docusate Sodium (Colace -) 100 mg PO TID [facility] Last Admin: 04/09/18 05:42 Dose: 100 mg Furosemide (Lasix Injection -) 80 mg IVPB BID@0600,1400 [facility] Last Admin: 04/09/18 05:42 Dose: 80 mg Heparin Sodium (Porcine) (Heparin -) 5,000 unit SQ TID [facility] Last Admin: 04/09/18 05:43 Dose: 5,000 unit Insulin Aspart (Novolog Vial Sliding Scale -) 1 vial SQ ACHS [facility]; Protocol Last Admin: 04/09/18 06:45 Dose: 2 units Ipratropium [place] (Atrovent 0.02% Nebulizer -) 1 amp NEB Q6H PRN PRN Reason: DYSPEPSIA Stop: 04/09/18 12:06 Last Admin: 04/08/18 22:44 Dose: 1 amp Meclizine HCl (Antivert -) 12.5 mg PO Q8H PRN PRN Reason: VERTIGO Metoprolol Succinate (Toprol Xl -) 50 mg PO BID [facility] Last Admin: 04/08/18 21:14 Dose: 50 mg Metoprolol Tartrate (Lopressor Injection -) 5 mg IVPUSH Q4H PRN PRN Reason: TACHYCARDIA Last Admin: 04/01/18 21:40 Dose: 5 mg Oxycodone HCl (Roxicodone -) 10 mg PO Q6H PRN PRN Reason: PAIN LEVEL 6-10 Last Admin: 04/08/18 21:17 Dose: 10 mg Pantoprazole Sodium (Protonix -) 40 mg PO DAILY [facility] Last Admin: 04/08/18 10:40 Dose: 40 mg Prednisone (Deltasone -) 10 mg PO DAILY [facility] Stop: 04/07/18 10:01 Psyllium Hydrophilic Mucilloid (Metamucil (Sugar-Free) -) 5.85 gm PO BID [facility] Last Admin: 04/08/18 21:14 Dose: Not Given Senna (Senna -) 2 tab PO HS PRN PRN Reason: CONSTIPATION PHYSICAL EXAMINATION Vital Signs Period Temp Pulse Resp BP Sys/El Pulse Ox Last 24 Hr 97.4 F-98.4 F 66-98 18-20 143-159/82-91 95 GENERAL: Middle aged obese male, lying in bed, Awake, alert, and fully oriented , in mild respiratory distress. HEAD: Normal with no signs of trauma. EYES:EOM intact, no pallor or icterus. EARS, NOSE, THROAT: Ears normal, drt mucous membranes. NECK:Supple. LUNGS: B/L Breath sounds equal, bibasilar crackles, No accessory muscle use. HEART: Irregularly irregular, rate, normal S1 and S2 with systolic murmur. ABDOMEN: Soft, nontender, no organomegaly. MUSCULOSKELETAL: Normal range of motion at all joints. No bony deformities or tenderness. No CVA tenderness. UPPER EXTREMITIES: 2+ pulses, warm, well-perfused. No cyanosis. No clubbing. No peripheral edema. LOWER EXTREMITIES: 2+ pulses, warm, well-perfused. No calf tenderness. Pitting edema b/l. NEUROLOGICAL: No facial droop. Normal speech. Gait not observed. PSYCHIATRIC: Cooperative. Good eye contact. Appropriate mood and affect. SKIN: Warm, dry, normal turgor, no rashes or lesions noted, normal capillary refill. CBCD WBC 13.5 K/mm3 (4.0-10.0) H 04/09/18 06:30 RBC 3.90 M/mm3 (4.00-5.60) L 04/09/18 06:30 Hgb 11.7 GM/dL (11.7-16.9) 04/09/18 06:30 Hct 37.4 % (35.4-49) 04/09/18 06:30 MCV 95.9 fl (80-96) 04/09/18 06:30 MCHC 31.4 g/dl (32.0-35.9) L 04/09/18 06:30 RDW 19.3 % (11.9-15.9) H 04/09/18 06:30 Plt Count 80 K/MM3 (134-434) L 04/09/18 06:30 MPV 10.5 fl (7.5-11.1) 04/09/18 06:30 CMP Sodium 132 mmol/L (136-145) L 04/09/18 06:00 Potassium 4.1 mmol/L (3.5-5.1) 04/09/18 06:00 Chloride 93 mmol/L (98-107) L 04/09/18 06:00 Carbon Dioxide 27 mmol/L (21-32) 04/09/18 06:00 Anion Gap 12 MMOL/L (8-16) 04/09/18 06:00 BUN 84 mg/dL (7-18) H 04/09/18 06:00 Creatinine 2.0 mg/dL (0.55-1.3) H 04/09/18 06:00 Creat Clearance w eGFR 34.03 (>60) 04/09/18 06:00 Random Glucose 169 mg/dL (74-106) H 04/09/18 06:00 Calcium 8.1 mg/dL (8.5-10.1) L 04/09/18 06:00 Total Bilirubin 1.2 mg/dL (0.2-1) H 04/09/18 06:00 AST 73 U/L (15-37) H 04/09/18 06:00 ALT 339 U/L (13-61) H 04/09/18 06:00 Alkaline Phosphatase 161 U/L (45-117) H 04/09/18 06:00 Total Protein 5.8 g/dl (6.4-8.2) L 04/09/18 06:00 Albumin 2.9 g/dl (3.4-5.0) L 04/09/18 06:00 CARDIAC ENZYMES Creatine Kinase 36 IU/L (26-308) 03/28/18 07:15 Troponin I 0.05 ng/ml (0.00-0.05) 03/31/18 06:10 Imaging as above ASSESSMENT/PLAN: 62 year old male was brought in to the ED by family members due to shortness of breath. As per the patient, he had been having shortness of breath since a couple of days prior to admission, even at rest, worse on exertion. Denied orthopnea, PND, chest pain, palpitation, cough, fever, chills, rigors or sweating. Per notes, patient was complaining of chest pain, was hypoxic to 92 % @ 3L then was placed in NRB with improvement in saturation. Labs were significant for leukocytosis of 13.1; Lactic acid of 2.1. Influenza A positive, CXR showed Left infiltrate. Tamiflu was given, has been treated for PNA and respiratory compromise. Consulted for AMS and extensive conversation with nurse and child support case officer. Concern that patient becomes confused. Is able to tell me he' s at [facility], can tell me its Apr 2018, able to tell me name of President. Does not appear acutely confused. CT head without acute changes. Ammonia normal. On meclezine for dizzyness. Maintain hydration, avoid sudden head movements. Continue medical optimization. GI follow up. Continue monitoring mental status.
[2018-04-09] MEDS ORDERED: PT OWN MED DRAWER 7, Y5N ONE ×3 (09:26→21:42)
[2018-04-09] MEDS: CYCLOBENZAPRINE HCL 10 MG TABLET (FP) PO SCH (09:31)
[2018-04-09] MEDS: PANTOPRAZOLE 40 MG TABLET (FP) PO SCH (09:31)
[2018-04-09] MEDS: ASPIRIN COATED 81 MG TABLET.EC PO SCH (09:31)
[2018-04-09] MEDS: CHOLECALCIFEROL (VITAMIN D3) 1,000 UNIT TABLET (FP) PO SCH (09:31)
[2018-04-09] MEDS: BUDESONIDE/FORMETEROL FUMARATE 80/4.5 mcg INHALER IH SCH (09:32)
[2018-04-09] MEDS: PSYLLIUM 5.85 GM PACKET PO SCH (09:32)
[2018-04-09] MEDS ORDERED: predniSONE 10 MG TABLET (UD) PO SCH (10:01)
--- NOTE | 2018-04-09 10:26 | PN ---
Progress Note (short form) - Note Progress Note: cc: sob s: no sob, chest pain, palps, dizziness, lightheadedness Current Medications Generic Name Dose Route Start Last Admin Trade Name Ghada PRN Reason Stop Dose Admin Aspirin 81 mg 03/29/18 10:00 04/09/18 09:31 Ecotrin - PO 81 mg DAILY [facility] Administration Benzocaine/Menthol 1 each 04/03/18 08:00 04/03/18 09:26 Cepacol Lozenge - MM 1 each PRN PRN Administration SORE THROAT Budesonide/Formoterol Fumarate 2 puff 04/02/18 22:00 04/09/18 09:32 Symbicort 80/4.5mcg - IH 2 puff BID [facility]U Administration Cholecalciferol 2,000 unit 03/29/18 10:00 04/09/18 09:31 Vitamin D3 - PO 2,000 unit DAILY [facility] Administration Cyclobenzaprine HCl 5 mg 03/28/18 22:00 04/09/18 09:31 Flexeril - PO 5 mg BID [facility] Administration Docusate Sodium 100 mg 03/28/18 14:00 04/09/18 05:42 Colace - PO 100 mg TID [facility]U Administration Furosemide 80 mg 04/09/18 06:00 04/09/18 05:42 Lasix Injection - IVPB 80 mg BID@0600,1400 [facility] Administration Heparin Sodium (Porcine) 5,000 unit 04/07/18 22:00 04/09/18 05:43 Heparin - SQ 5,000 unit TID [facility]JU Administration Insulin Aspart 1 vial 03/28/18 12:23 04/09/18 06:45 Novolog Vial Sliding Scale - SQ 2 units ACHS MANJU Administration Protocol Ipratropium [place] 1 amp 04/02/18 12:06 04/08/18 22:44 Atrovent 0.02% Nebulizer - NEB 04/09/18 12:06 1 amp Q6H PRN Administration DYSPEPSIA Meclizine HCl 12.5 mg 04/08/18 16:48 Antivert - PO Q8H PRN VERTIGO Metoprolol Succinate 50 mg 04/02/18 22:00 04/09/18 09:31 Toprol Xl - PO 50 mg BID [facility]JU Administration Metoprolol Tartrate 5 mg 03/31/18 11:02 04/01/18 21:40 Lopressor Injection - IVPUSH 5 mg Q4H PRN Administration TACHYCARDIA Oxycodone HCl 10 mg 04/04/18 16:55 04/08/18 21:17 Roxicodone - PO 10 mg Q6H PRN Administration PAIN LEVEL 6-10 Pantoprazole Sodium 40 mg 03/29/18 10:00 04/09/18 09:31 Protonix - PO 40 mg DAILY [facility] Administration Prednisone 10 mg 04/09/18 10:01 Deltasone - PO 04/10/18 10:01 DAILY MANJU Psyllium Hydrophilic Mucilloid 5.85 gm 03/28/18 22:00 04/09/18 09:32 Metamucil (Sugar-Free) - PO 5.85 gm BID MANJU Administration Senna 2 tab 04/02/18 09:45 Senna - PO HS PRN CONSTIPATION pe: Vital Signs Period Temp Pulse Resp BP Sys/El Pulse Ox Last 24 Hr 97.4 F-98.4 F 66-98 18-20 137-159/79-91 95 nad, +JVD rrr s1s2 no mrg cta bl, nl eff aaox3 no le e/c/c abd nt nd pos bs no jaundice diaphoresis +dp pt no carotid bruits ECG: AFL, intermittent V-S/V-P, + ST-Ts unchanged vs prior echo 06/2016: sev dec lvef, global hk, rv tds, trinity, mod-sev mr, mod tr, rvsp 50- 60 echo 06/2015: mild lve, mod-sev dec lvef, mod lae, nl rv size, mild dec rv fcn, mild-mod mr, mild tr, nl avr fcn, rvsp 30-40 mibi 06/2016 (pers): non-diagnostic STs; large area inferior/inferolateral/ lateral scar; no ischemia; severe LV cavity dilation; global HK with akinesis of inferior/inferolat/lateral allan; EF 16% mibi 09/2014: large inf scar, mod anteroapical ischemia, lvef 25% tele: AFL hr controlled a/p: 62 m hx copd, cabgx3 2012, bio avr 2012, pad s/p b/l sfa occlusions, syst chf s/p medtronic icd, htn, hld, a-tach, here with back pain, sob. pna, flu: -cont abx per ID acute on chronic systolic CHF exacerbation: -past dry wt here 187 lbs (recent discharge) -here with mild chf exacerbation likely worsened by flu/pna -03/30 was on lasix 80 po qd at home, weight stable, stable Cr, feels the same - increased lasix to 40 mg IV BID -03/31 Cr rising, change to lasix 40 mg IV daily -04/01: cont same iv lasix -04/02-: bun/cr rising, cxr shows less congestion, stopped iv lasix, monitoring cr trend before resuming po lasix -04/04: cr slightly better today, continue to hold lasix -04/05: remains signif above dry wt with no change for several days (199-200). JVD persists (note: this resolved during recent admit when well-diuresed). incr sob/orthopnea. creat improved vs peak, close to his baseline; BUN progressively rising here: ? steroids effect. needs diuresis. start lasix 80 iv bid today-- reassess in am. renal fxn may improve with diuresis--otherwise may need consider milrinone trial -04/06: only given one dose of lasix 80 iv yesterday due to computer and pharmacy issues with timing. wt down 1 lb, remains above recent dry wt. ongoing orthopnea : ? component from influenza--though no acute parenchymal findings on CT chest makes PNA unlikely. renal fxn stable. not collecting urine accurately, pt can't say if incr'd diuresis yest with lasix 80mg. give lasix 80 iv bid today, strict UOP assessment (d/w'd RN these instrxns) -/-4 weight down with lasix 80 mg IV BID, Cr stable, continue same. Will likely be able to change to po lasix tomorrow. Would change to po 80 bid with close outpt monitoring of cr/vol status. -cont metopr succ 50 bid. not on LESTER-I due to h/o hyperkalemia (hence defer entresto as well) atrial flutter: -pt in AFL on ekg -CHADS VASC 4, warrants AC for cardioembolic prophylaxis. pt is at prohibitive risks of falls/head trauma at present (very frequent falls recently including head trauma, suspected LE weakness with mechanical falls etiology) will defer AC for now. Prior plan was for pt to f/u in office to discuss fall risk/ac further but he did not come to appt (often misses appts). 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 - episodes of RVR likely more frequent in setting of PNA, flu. changed coreg to toprol 50 bid and hr improved. cad/hx of CABG 2012 -no recent angina/ischemia -trop chronically in intermediate range, no change in current values, trend is flat, ck nl, not c/w acs -cont prior cad med regimen: asa, statin, bb, ccb bio avr: -nl fcn on echo 06/20 mitral regurgitation: -likely functional MR, mild-mod on echo 06/19, then "mod-severe" when here 06/20 with suspected acute chf and pulm pressures up (though at risk for overestimation of MR severity on that echo report) -valve morphology not described (tethered leaflets?) -no murmur on exam -reassess MR severity on echo as outpt pad: -stable, no claudication, cont current cardiac meds s/p icd: -no shocks on check earlier this month -routine outpt monitoring htn: -bp stable -cont home meds
[2018-04-09] MEDS: IPRATROPIUM BR 0.02% 0.5 MG/2.5 ML VIAL.NEB. NEB PRN (11:45)
--- NOTE | 2018-04-09 13:00 | PN ---
Progress Note, Physician History of Present Illness: events noted wanted to harm himself now 1 to 1 - Current Medication List Current Medications: Active Medications Aspirin (Ecotrin -) 81 mg PO DAILY [facility] Last Admin: 04/09/18 09:31 Dose: 81 mg Benzocaine/Menthol (Cepacol Lozenge -) 1 each MM PRN PRN PRN Reason: SORE THROAT Last Admin: 04/03/18 09:26 Dose: 1 each Budesonide/Formoterol Fumarate (Symbicort 80/4.5mcg -) 2 puff IH BID [facility] Last Admin: 04/09/18 09:32 Dose: 2 puff Cholecalciferol (Vitamin D3 -) 2,000 unit PO DAILY [facility] Last Admin: 04/09/18 09:31 Dose: 2,000 unit Cyclobenzaprine HCl (Flexeril -) 5 mg PO BID [facility] Last Admin: 04/09/18 09:31 Dose: 5 mg Docusate Sodium (Colace -) 100 mg PO TID [facility] Last Admin: 04/09/18 05:42 Dose: 100 mg Furosemide (Lasix Injection -) 80 mg IVPB BID@0600,1400 [facility] Last Admin: 04/09/18 05:42 Dose: 80 mg Heparin Sodium (Porcine) (Heparin -) 5,000 unit SQ TID [facility] Last Admin: 04/09/18 05:43 Dose: 5,000 unit Insulin Aspart (Novolog Vial Sliding Scale -) 1 vial SQ ACHS [facility]; Protocol Last Admin: 04/09/18 12:20 Dose: 4 units Meclizine HCl (Antivert -) 12.5 mg PO Q8H PRN PRN Reason: VERTIGO Metoprolol Succinate (Toprol Xl -) 50 mg PO BID [facility] Last Admin: 04/09/18 09:31 Dose: 50 mg Metoprolol Tartrate (Lopressor Injection -) 5 mg IVPUSH Q4H PRN PRN Reason: TACHYCARDIA Last Admin: 04/01/18 21:40 Dose: 5 mg Oxycodone HCl (Roxicodone -) 10 mg PO Q6H PRN PRN Reason: PAIN LEVEL 6-10 Last Admin: 04/08/18 21:17 Dose: 10 mg Pantoprazole Sodium (Protonix -) 40 mg PO DAILY [facility] Last Admin: 01/04/19 09:31 Dose: 40 mg Prednisone (Deltasone -) 10 mg PO DAILY [facility] Stop: 04/10/18 10:01 Last Admin: 04/09/18 10:48 Dose: 10 mg Psyllium Hydrophilic Mucilloid (Metamucil (Sugar-Free) -) 5.85 gm PO BID [facility] Last Admin: 04/09/18 09:32 Dose: 5.85 gm Senna (Senna -) 2 tab PO HS PRN PRN Reason: CONSTIPATION - Objective Vital Signs: Vital Signs Temperature 97.6 F 04/09/18 09:36 Pulse Rate 71 04/09/18 09:36 Respiratory Rate 18 04/09/18 09:36 Blood Pressure 137/79 04/09/18 09:36 O2 Sat by Pulse Oximetry (%) 95 04/08/18 21:00 Constitutional: Yes: No Distress, Calm Cardiovascular: Yes: S1, S2 Respiratory: Yes: Regular, CTA Bilaterally Gastrointestinal: Yes: Normal Bowel Sounds, Soft Musculoskeletal: Yes: WNL Extremities: Yes: WNL Neurological: Yes: Alert, Oriented Psychiatric: Yes: Alert, Oriented Labs: CBC, BMP 04/09/18 06:30 04/09/18 06:00 INR, PTT INR 1.28 (0.83-1.09) H 04/09/18 06:30 Assessment/Plan Problem List - Problems (1) Acute exacerbation of CHF (congestive heart failure) Code(s): I50.9 - HEART FAILURE, UNSPECIFIED Qualifiers: (2) Influenza A Code(s): J10.1 - FLU DUE TO OTH IDENT INFLUENZA VIRUS W OTH RESP MANIFEST (3) Respiratory distress Code(s): R06.00 - DYSPNEA, UNSPECIFIED (4) COPD (chronic obstructive pulmonary disease) Code(s): J44.9 - CHRONIC OBSTRUCTIVE PULMONARY DISEASE, UNSPECIFIED (5) Afib Code(s): I48.91 - UNSPECIFIED ATRIAL FIBRILLATION Qualifiers: Atrial fibrillation type: chronic Qualified Code(s): I48.2 - Chronic atrial fibrillation (6) Chronic respiratory failure Code(s): J96.10 - CHRONIC RESPIRATORY FAILURE, UNSP W HYPOXIA OR HYPERCAPNIA (7) Pneumonia Code(s): J18.9 - PNEUMONIA, UNSPECIFIED ORGANISM Qualifiers: Pneumonia type: due to unspecified organism Laterality: left Lung location: lower lobe of lung Qualified Code(s): J18.1 - Lobar pneumonia, unspecified organism (8) S/P AVR Code(s): Z95.2 - PRESENCE OF PROSTHETIC HEART VALVE (9) CAD (coronary artery disease) Code(s): I25.10 - ATHSCL HEART DISEASE OF [place] CORONARY ARTERY W/O ANG PCTRS Qualifiers: [place] vs. transplanted heart: [place] heart Associated angina: without angina (10) COPD (chronic obstructive pulmonary disease) Code(s): J44.9 - CHRONIC OBSTRUCTIVE PULMONARY DISEASE, UNSPECIFIED Qualifiers: COPD type: COPD with acute exacerbation Qualified Code(s): J44.1 - Chronic obstructive pulmonary disease with (acute) exacerbation (11) Chronic kidney disease (CKD) Code(s): N18.9 - CHRONIC KIDNEY DISEASE, UNSPECIFIED Qualifiers: Chronic kidney disease stage: stage 3 (moderate) Qualified Code(s): N18.3 - Chronic kidney disease, stage 3 (moderate) (12) Diabetes mellitus with chronic kidney disease Code(s): E11.22 - TYPE 2 DIABETES MELLITUS W DIABETIC CHRONIC KIDNEY DISEASE; N18.9 - CHRONIC KIDNEY DISEASE, UNSPECIFIED Qualifiers: Diabetes mellitus type: type 2 Chronic kidney disease stage: stage 3 ( moderate) (13) Peripheral vascular disease Code(s): I73.9 - PERIPHERAL VASCULAR DISEASE, UNSPECIFIED (15) Acute on chronic respiratory failure with hypoxemia Code(s): J96.21 - ACUTE AND CHRONIC RESPIRATORY FAILURE WITH HYPOXIA Assessment/Plan 62 y.o. male with PMH of COPD on home O2, CHF, CAD s/p CABG, AICD, bioprosthetic AVR, MR, Atrial Fibrillation, CKD, HTN, DM and PVD presenting with SOB/tachynea, chest discomfort, leukocytosis, lactic acidosis, pulmonary congestion. Recently admitted to the hospital Influenza A Possible HCAP Sepsis Acute on chronic CHF COPD CKD DM CAD s/p CABG s/p AICD s/p AVR MR AFIB plan continue current mgmt monitor closely monitor heart rate rest as per the team
--- NOTE | 2018-04-09 14:03 | PN ---
Progress Note, Physician History of Present Illness: Pt seen and examined at bedside. He complains of shortness of breath with exertion. He denies dysuria or hematuria. - Current Medication List Current Medications: Active Medications Aspirin (Ecotrin -) 81 mg PO DAILY [facility] Last Admin: 04/09/18 09:31 Dose: 81 mg Benzocaine/Menthol (Cepacol Lozenge -) 1 each MM PRN PRN PRN Reason: SORE THROAT Last Admin: 04/03/18 09:26 Dose: 1 each Budesonide/Formoterol Fumarate (Symbicort 80/4.5mcg -) 2 puff IH BID [facility] Last Admin: 04/09/18 09:32 Dose: 2 puff Cholecalciferol (Vitamin D3 -) 2,000 unit PO DAILY [facility] Last Admin: 04/09/18 09:31 Dose: 2,000 unit Cyclobenzaprine HCl (Flexeril -) 5 mg PO BID [facility] Last Admin: 04/09/18 09:31 Dose: 5 mg Docusate Sodium (Colace -) 100 mg PO TID [facility] Last Admin: 04/09/18 13:51 Dose: 100 mg Furosemide (Lasix Injection -) 80 mg IVPB BID@0600,1400 [facility] Last Admin: 04/09/18 13:50 Dose: 80 mg Heparin Sodium (Porcine) (Heparin -) 5,000 unit SQ TID [facility] Last Admin: 04/09/18 13:50 Dose: 5,000 unit Insulin Aspart (Novolog Vial Sliding Scale -) 1 vial SQ [facility]; Protocol Last Admin: 04/09/18 12:20 Dose: 4 units Meclizine HCl (Antivert -) 12.5 mg PO Q8H PRN PRN Reason: VERTIGO Metoprolol Succinate (Toprol Xl -) 50 mg PO BID [facility] Last Admin: 04/09/18 09:31 Dose: 50 mg Metoprolol Tartrate (Lopressor Injection -) 5 mg IVPUSH Q4H PRN PRN Reason: TACHYCARDIA Last Admin: 04/01/18 21:40 Dose: 5 mg Oxycodone HCl (Roxicodone -) 10 mg PO Q6H PRN PRN Reason: PAIN LEVEL 6-10 Last Admin: 04/08/18 21:17 Dose: 10 mg Pantoprazole Sodium (Protonix -) 40 mg PO DAILY [facility] Last Admin: 04/09/18 09:31 Dose: 40 mg Prednisone (Deltasone -) 10 mg PO DAILY [facility] Stop: 04/10/18 10:01 Last Admin: 04/09/18 10:48 Dose: 10 mg Psyllium Hydrophilic Mucilloid (Metamucil (Sugar-Free) -) 5.85 gm PO BID [facility] Last Admin: 04/09/18 09:32 Dose: 5.85 gm Senna (Senna -) 2 tab PO HS PRN PRN Reason: CONSTIPATION - Objective Vital Signs: Vital Signs Temperature 97.6 F 04/09/18 09:36 Pulse Rate 71 04/09/18 09:36 Respiratory Rate 18 04/09/18 09:36 Blood Pressure 137/79 04/09/18 09:36 O2 Sat by Pulse Oximetry (%) 95 04/08/18 21:00 Constitutional: Yes: Calm Eyes: Yes: Conjunctiva Clear HENT: Yes: Atraumatic Neck: Yes: Supple Cardiovascular: Yes: S1, S2 Respiratory: Yes: On Nasal O2, Rhonchi Gastrointestinal: Yes: Soft Musculoskeletal: Yes: WNL Edema: Yes Edema: LLE: 1+, RLE: 1+ Neurological: Yes: Oriented Psychiatric: Yes: Oriented Labs: CBC, BMP 04/09/18 06:30 04/09/18 06:00 INR, PTT INR 1.28 (0.83-1.09) H 04/09/18 06:30 Problem List - Problems (1) Acute exacerbation of CHF (congestive heart failure) Code(s): I50.9 - HEART FAILURE, UNSPECIFIED Qualifiers: Heart failure type: combined systolic and diastolic Qualified Code(s): I50.43 - Acute on chronic combined systolic (congestive) and diastolic ( congestive) heart failure (2) Chronic kidney disease (CKD) Code(s): N18.9 - CHRONIC KIDNEY DISEASE, UNSPECIFIED Qualifiers: Chronic kidney disease stage: stage 3 (moderate) Qualified Code(s): N18.3 - Chronic kidney disease, stage 3 (moderate) Assessment/Plan Current Medications Generic Name Dose Route Start Last Admin Trade Name Freq PRN Reason Stop Dose Admin Aspirin 81 mg 03/29/18 10:00 04/09/18 09:31 Ecotrin - PO 81 mg DAILY [facility] Administration Benzocaine/Menthol 1 each 04/03/18 08:00 04/03/18 09:26 Cepacol Lozenge - MM 1 each PRN PRN Administration SORE THROAT Budesonide/Formoterol Fumarate 2 puff 04/02/18 22:00 04/09/18 09:32 Symbicort 80/4.5mcg - IH 2 puff BID [facility] Administration Cholecalciferol 2,000 unit 03/29/18 10:00 04/09/18 09:31 Vitamin D3 - PO 2,000 unit DAILY [facility] Administration Cyclobenzaprine HCl 5 mg 03/28/18 22:00 04/09/18 09:31 Flexeril - PO 5 mg BID [facility] Administration Docusate Sodium 100 mg 03/28/18 14:00 04/09/18 13:51 Colace - PO 100 mg TID [facility] Administration Furosemide 80 mg 04/09/18 06:00 04/09/18 13:50 Lasix Injection - IVPB 80 mg BID@0600,1400 [facility] Administration Heparin Sodium (Porcine) 5,000 unit 04/07/18 22:00 04/09/18 13:50 Heparin - SQ 5,000 unit TID [facility] Administration Insulin Aspart 1 vial 03/28/18 12:23 04/09/18 12:20 Novolog Vial Sliding Scale - SQ 4 units ACHS [facility] Administration Protocol Meclizine HCl 12.5 mg 04/08/18 16:48 Antivert - PO Q8H PRN VERTIGO Metoprolol Succinate 50 mg 04/02/18 22:00 04/09/18 09:31 Toprol Xl - PO 50 mg BID [facility] Administration Metoprolol Tartrate 5 mg 03/31/18 11:02 04/01/18 21:40 Lopressor Injection - IVPUSH 5 mg Q4H PRN Administration TACHYCARDIA Oxycodone HCl 10 mg 04/04/18 16:55 04/08/18 21:17 Roxicodone - PO 10 mg Q6H PRN Administration PAIN LEVEL 6-10 Pantoprazole Sodium 40 mg 03/29/18 10:00 04/09/18 09:31 Protonix - PO 40 mg DAILY [facility] Administration Prednisone 10 mg 04/09/18 10:01 04/09/18 10:48 Deltasone - PO 04/10/18 10:01 10 mg DAILY [facility] Administration Psyllium Hydrophilic Mucilloid 5.85 gm 03/28/18 22:00 04/09/18 09:32 Metamucil (Sugar-Free) - PO 5.85 gm BID [facility] Administration Senna 2 tab 04/02/18 09:45 Senna - PO HS PRN CONSTIPATION Impression 1. CKD 2. proteinuria 3. CAD 4. CHF 5. COPD 6. DM 7. HTN 8. azotemia/fior 9. anemia Plan - cont with lasix - monitor renal function - restrict fluid intake, he is not compliant with intake - likely a component of cardiorenal - pt remains fluid overloaded - cardio input appreciated - monitor pulse ox - will follow
--- NOTE | 2018-04-09 15:07 | PN ---
Progress Note, Physician History of Present Illness: pulmonary alert,oob-chair,-sob at rest,+ mckay,-cp - Current Medication List Current Medications: Active Medications Aspirin (Ecotrin -) 81 mg PO DAILY [facility] Last Admin: 04/09/18 09:31 Dose: 81 mg Benzocaine/Menthol (Cepacol Lozenge -) 1 each MM PRN PRN PRN Reason: SORE THROAT Last Admin: 04/03/18 09:26 Dose: 1 each Budesonide/Formoterol Fumarate (Symbicort 80/4.5mcg -) 2 puff IH BID [facility] Last Admin: 04/09/18 09:32 Dose: 2 puff Cholecalciferol (Vitamin D3 -) 2,000 unit PO DAILY [facility] Last Admin: 04/09/18 09:31 Dose: 2,000 unit Cyclobenzaprine HCl (Flexeril -) 5 mg PO BID [facility] Last Admin: 04/09/18 09:31 Dose: 5 mg Docusate Sodium (Colace -) 100 mg PO TID [facility] Last Admin: 04/09/18 13:51 Dose: 100 mg Furosemide (Lasix Injection -) 80 mg IVPB BID@0600,1400 [facility] Last Admin: 04/09/18 13:50 Dose: 80 mg Heparin Sodium (Porcine) (Heparin -) 5,000 unit SQ TID [facility] Last Admin: 04/09/18 13:50 Dose: 5,000 unit Insulin Aspart (Novolog Vial Sliding Scale -) 1 vial SQ [facility]; Protocol Last Admin: 04/09/18 12:20 Dose: 4 units Meclizine HCl (Antivert -) 12.5 mg PO Q8H PRN PRN Reason: VERTIGO Metoprolol Succinate (Toprol Xl -) 50 mg PO BID [facility] Last Admin: 04/09/18 09:31 Dose: 50 mg Metoprolol Tartrate (Lopressor Injection -) 5 mg IVPUSH Q4H PRN PRN Reason: TACHYCARDIA Last Admin: 04/01/18 21:40 Dose: 5 mg Oxycodone HCl (Roxicodone -) 10 mg PO Q6H PRN PRN Reason: PAIN LEVEL 6-10 Last Admin: 04/08/18 21:17 Dose: 10 mg Pantoprazole Sodium (Protonix -) 40 mg PO DAILY [facility] Last Admin: 04/09/18 09:31 Dose: 40 mg Prednisone (Deltasone -) 10 mg PO DAILY [facility] Stop: 04/10/18 10:01 Last Admin: 04/09/18 10:48 Dose: 10 mg Psyllium Hydrophilic Mucilloid (Metamucil (Sugar-Free) -) 5.85 gm PO BID [facility] Last Admin: 04/09/18 09:32 Dose: 5.85 gm Senna (Senna -) 2 tab PO HS PRN PRN Reason: CONSTIPATION - Objective Vital Signs: Vital Signs Temperature 97.3 F L 04/09/18 13:00 Pulse Rate 82 04/09/18 13:00 Respiratory Rate 18 04/09/18 13:00 Blood Pressure 161/97 04/09/18 13:00 O2 Sat by Pulse Oximetry (%) 95 04/08/18 21:00 Constitutional: Yes: Well Nourished, Calm Eyes: Yes: WNL HENT: Yes: WNL Neck: Yes: WNL Cardiovascular: Yes: Regular Rate and Rhythm, S1, S2 Respiratory: Yes: Rales (bibsilar rales) Gastrointestinal: Yes: Normal Bowel Sounds, Soft Extremities: Yes: WNL Edema: Yes Labs: CBC, BMP 04/09/18 06:30 04/09/18 06:00 INR, PTT INR 1.28 (0.83-1.09) H 04/09/18 06:30 Problem List - Problems (1) Acute on chronic respiratory failure with hypoxemia Code(s): J96.21 - ACUTE AND CHRONIC RESPIRATORY FAILURE WITH HYPOXIA (2) S/P CABG x 3 Code(s): Z95.1 - PRESENCE OF AORTOCORONARY BYPASS GRAFT (4) Troponin I above reference range Code(s): R74.8 - ABNORMAL LEVELS OF OTHER SERUM ENZYMES (5) Acute exacerbation of CHF (congestive heart failure) Code(s): I50.9 - HEART FAILURE, UNSPECIFIED Qualifiers: Heart failure type: combined systolic and diastolic Qualified Code(s): I50.43 - Acute on chronic combined systolic (congestive) and diastolic ( congestive) heart failure (6) Influenza A Code(s): J10.1 - FLU DUE TO OTH IDENT INFLUENZA VIRUS W OTH RESP MANIFEST (7) Afib Code(s): I48.91 - UNSPECIFIED ATRIAL FIBRILLATION Qualifiers: Atrial fibrillation type: chronic Qualified Code(s): I48.2 - Chronic atrial fibrillation (8) COPD exacerbation Code(s): J44.1 - CHRONIC OBSTRUCTIVE PULMONARY DISEASE W (ACUTE) EXACERBATION (9) Cough Code(s): R05 - COUGH (10) Pneumonia Code(s): J18.9 - PNEUMONIA, UNSPECIFIED ORGANISM (11) S/P AVR Code(s): Z95.2 - PRESENCE OF PROSTHETIC HEART VALVE (12) Shortness of breath Code(s): R06.02 - SHORTNESS OF BREATH (13) Weakness Code(s): R53.1 - WEAKNESS (14) CAD (coronary artery disease) Code(s): I25.10 - ATHSCL HEART DISEASE OF [place] CORONARY ARTERY W/O ANG PCTRS Qualifiers: [place] vs. transplanted heart: [place] heart Associated angina: without angina (15) CHF (congestive heart failure) Code(s): I50.9 - HEART FAILURE, UNSPECIFIED Qualifiers: Heart failure type: systolic Heart failure chronicity: chronic Qualified Code(s): I50.22 - Chronic systolic (congestive) heart failure (16) Chronic renal insufficiency, stage III (moderate) Code(s): N18.3 - CHRONIC KIDNEY DISEASE, STAGE 3 (MODERATE) (17) Coronary artery disease Code(s): I25.10 - ATHSCL HEART DISEASE OF [place] CORONARY ARTERY W/O ANG PCTRS Qualifiers: Coronary Disease-Associated Artery/Lesion type: bypass graft, other Associated angina: with other forms of angina Qualified Code(s): I25.798 - Atherosclerosis of other coronary artery bypass graft(s) with other forms of angina pectoris (18) HTN (hypertension) Code(s): I10 - ESSENTIAL (PRIMARY) HYPERTENSION Qualifiers: Hypertension type: essential hypertension Qualified Code(s): I10 - Essential (primary) hypertension (19) Peripheral vascular disease Code(s): I73.9 - PERIPHERAL VASCULAR DISEASE, UNSPECIFIED (20) Lactate blood increase Code(s): R79.89 - OTHER SPECIFIED ABNORMAL FINDINGS OF BLOOD CHEMISTRY Assessment/Plan IMP ACUTE ON CHRONIC HYPOXEMIC RESPIRATORY FAILURE IMPROVING ACUTE ON CHRONIC CHF S/P AICD COPD O2 DEPENDENT + TROPONIN ASHD S/P CABG S/P AVR ? PNEUMONIA ATYPICAL CP ACUTE ON CKD WORSENING PULMONARY HTN INFLUENZA A AFIB ELEVATED LACTATE LEVEL IMPROVED PLEURAL EFFUSION MEDIASTINAL ADENOPATHY LIKELY REACTIVE PLAN IV LASIX O2 INHALED BRONCHODILATORS F/U CHEST X-RAYS MONITOR LYTES,RENAL FUNCTION F/U CHEST CT 4-[address] [place] Problem List - Problems (1) Acute on chronic respiratory failure with hypoxemia Code(s): J96.21 - ACUTE AND CHRONIC RESPIRATORY FAILURE WITH HYPOXIA (2) S/P CABG x 3 Code(s): Z95.1 - PRESENCE OF AORTOCORONARY BYPASS GRAFT (4) Troponin I above reference range Code(s): R74.8 - ABNORMAL LEVELS OF OTHER SERUM ENZYMES (5) Acute exacerbation of CHF (congestive heart failure) Code(s): I50.9 - HEART FAILURE, UNSPECIFIED Qualifiers: (6) Influenza A Code(s): J10.1 - FLU DUE TO OTH IDENT INFLUENZA VIRUS W OTH RESP MANIFEST (7) Afib Code(s): I48.91 - UNSPECIFIED ATRIAL FIBRILLATION Qualifiers: Atrial fibrillation type: chronic Qualified Code(s): I48.2 - Chronic atrial fibrillation (8) COPD exacerbation Code(s): J44.1 - CHRONIC OBSTRUCTIVE PULMONARY DISEASE W (ACUTE) EXACERBATION (9) Cough Code(s): R05 - COUGH (10) Pneumonia Code(s): J18.9 - PNEUMONIA, UNSPECIFIED ORGANISM (11) S/P AVR Code(s): Z95.2 - PRESENCE OF PROSTHETIC HEART VALVE (12) Shortness of breath Code(s): R06.02 - SHORTNESS OF BREATH (13) Weakness Code(s): R53.1 - WEAKNESS (14) CAD (coronary artery disease) Code(s): I25.10 - ATHSCL HEART DISEASE OF [place] CORONARY ARTERY W/O ANG PCTRS Qualifiers: [place] vs. transplanted heart: [place] heart Associated angina: without angina (15) CHF (congestive heart failure) Code(s): I50.9 - HEART FAILURE, UNSPECIFIED Qualifiers: Heart failure type: systolic Heart failure chronicity: chronic Qualified Code(s): I50.22 - Chronic systolic (congestive) heart failure (16) Chronic renal insufficiency, stage III (moderate) Code(s): N18.3 - CHRONIC KIDNEY DISEASE, STAGE 3 (MODERATE) (17) Coronary artery disease Code(s): I25.10 - ATHSCL HEART DISEASE OF [place] CORONARY ARTERY W/O ANG PCTRS Qualifiers: Coronary Disease-Associated Artery/Lesion type: bypass graft, other Associated angina: with other forms of angina Qualified Code(s): I25.798 - Atherosclerosis of other coronary artery bypass graft(s) with other forms of angina pectoris (18) HTN (hypertension) Code(s): I10 - ESSENTIAL (PRIMARY) HYPERTENSION Qualifiers: Hypertension type: essential hypertension Qualified Code(s): I10 - Essential (primary) hypertension (19) Peripheral vascular disease Code(s): I73.9 - PERIPHERAL VASCULAR DISEASE, UNSPECIFIED (20) Lactate blood increase Code(s): R79.89 - OTHER SPECIFIED ABNORMAL FINDINGS OF BLOOD CHEMISTRY
[2018-04-09] MEDS: oxyCODONE HCL 5 MG TABLET PO PRN (15:33)
--- NOTE | 2018-04-09 15:56 | PN ---
Physical Exam: SUBJECTIVE: Patient seen and examined at bed side this morning. Stated he feels good. ROS negative. Patient while talking with the social studies teacher said he has thoughts of killing himself. When asked to the patient, he said he wants to kill himself, doesn't have a plan yet, and is thinking about it. Son at bed side. OBJECTIVE: Vital Signs Period Temp Pulse Resp BP Sys/El Pulse Ox Last 24 Hr 97.3 F-98.4 F 66-98 18-20 137-161/79-97 95 GENERAL: Middle aged obese male, lying in bed, Awake, alert, confused, in mild respiratory distress, nasal canula @ 2L. HEAD: Normal with no signs of trauma. EYES:EOM intact, no pallor or icterus. EARS, NOSE, THROAT: Ears normal, moist mucous membranes. NECK:Supple. LUNGS: B/L Breath sounds equal, bibasilar crackles , No accessory muscle use. HEART: Irregularly irregular, rate, normal S1 and S2 with systolic murmur. ABDOMEN: Soft, tenderness in the left lower quadrant, no organomegaly. MUSCULOSKELETAL: Normal range of motion at all joints. No bony deformities or tenderness. No CVA tenderness. UPPER EXTREMITIES: 2+ pulses, warm, well-perfused. No cyanosis. No clubbing. No peripheral edema. LOWER EXTREMITIES: 2+ pulses, warm, well-perfused. No calf tenderness. Trace pitting edema b/l-improved. NEUROLOGICAL: No facial droop. Normal speech. Gait not observed. PSYCHIATRIC: Cooperative. Good eye contact. Appropriate mood and affect. SKIN: Warm, dry, normal turgor, no rashes or lesions noted, normal capillary refill. Laboratory Results - last 24 hr 04/07/18 04/08/18 04/08/18 21:10 16:33 21:16 WBC RBC Hgb Hct MCV MCH MCHC RDW Plt Count MPV PT with INR INR Sodium Potassium Chloride Carbon Dioxide Anion Gap BUN Creatinine Creat Clearance w eGFR POC Glucometer 257 296 Random Glucose Calcium Phosphorus Magnesium Total Bilirubin AST ALT Alkaline Phosphatase Total Protein Albumin Hepatitis A IgM Ab Negative Hep Bs Antigen Negative Hep B Core IgM Ab Negative Hepatitis C Antibody <0.1 04/09/18 04/09/18 04/09/18 05:40 06:00 06:30 WBC 13.5 H RBC 3.90 L Hgb 11.7 Hct 37.4 MCV 95.9 MCH 30.1 MCHC 31.4 L RDW 19.3 H Plt Count 80 L MPV 10.5 PT with INR INR Sodium 132 L Potassium 4.1 Chloride 93 L Carbon Dioxide 27 Anion Gap 12 BUN 84 H Creatinine 2.0 H Creat Clearance w eGFR 34.03 POC Glucometer 161 Random Glucose 169 H Calcium 8.1 L Phosphorus 3.7 Magnesium 2.5 H Total Bilirubin 1.2 H AST 73 H ALT 339 H Alkaline Phosphatase 161 H Total Protein 5.8 L Albumin 2.9 L Hepatitis A IgM Ab Hep Bs Antigen Hep B Core IgM Ab Hepatitis C Antibody 04/09/18 04/09/18 06:30 11:45 WBC RBC Hgb Hct MCV MCH MCHC RDW Plt Count MPV PT with INR 15.10 H INR 1.28 H Sodium Potassium Chloride Carbon Dioxide Anion Gap BUN Creatinine Creat Clearance w eGFR POC Glucometer 227 Random Glucose Calcium Phosphorus Magnesium Total Bilirubin AST ALT Alkaline Phosphatase Total Protein Albumin Hepatitis A IgM Ab Hep Bs Antigen Hep B Core IgM Ab Hepatitis C Antibody Active Medications Generic Name Dose Route Start Last Admin Trade Name Freq PRN Reason Stop Dose Admin Aspirin 81 mg 03/29/18 10:00 04/09/18 09:31 Ecotrin - PO 81 mg DAILY [facility] Administration Benzocaine/Menthol 1 each 04/03/18 08:00 04/03/18 09:26 Cepacol Lozenge - MM 1 each PRN PRN Administration SORE THROAT Budesonide/Formoterol Fumarate 2 puff 04/02/18 22:00 04/09/18 09:32 Symbicort 80/4.5mcg - IH 2 puff BID [facility]U Administration Cholecalciferol 2,000 unit 03/29/18 10:00 04/09/18 09:31 Vitamin D3 - PO 2,000 unit DAILY [facility] Administration Cyclobenzaprine HCl 5 mg 03/28/18 22:00 04/09/18 09:31 Flexeril - PO 5 mg BID [facility] Administration Docusate Sodium 100 mg 03/28/18 14:00 04/09/18 13:51 Colace - PO 100 mg TID [facility] Administration Furosemide 80 mg 04/09/18 06:00 04/09/18 13:50 Lasix Injection - IVPB 80 mg BID@0600,1400 [facility] Administration Heparin Sodium (Porcine) 5,000 unit 04/07/18 22:00 04/09/18 13:50 Heparin - SQ 5,000 unit TID [facility] Administration Insulin Aspart 1 vial 03/28/18 12:23 04/09/18 12:20 Novolog Vial Sliding Scale - SQ 4 units ACHS [facility] Administration Protocol Meclizine HCl 12.5 mg 04/08/18 16:48 Antivert - PO Q8H PRN VERTIGO Metoprolol Succinate 50 mg 04/02/18 22:00 04/09/18 09:31 Toprol Xl - PO 50 mg BID [facility] Administration Metoprolol Tartrate 5 mg 03/31/18 11:02 04/01/18 21:40 Lopressor Injection - IVPUSH 5 mg Q4H PRN Administration TACHYCARDIA Oxycodone HCl 10 mg 04/04/18 16:55 04/09/18 15:33 Roxicodone - PO 10 mg Q6H PRN Administration PAIN LEVEL 6-10 Pantoprazole Sodium 40 mg 03/29/18 10:00 04/09/18 09:31 Protonix - PO 40 mg DAILY [facility] Administration Prednisone 10 mg 04/09/18 10:01 04/09/18 10:48 Deltasone - PO 04/10/18 10:01 10 mg DAILY [facility] Administration Psyllium Hydrophilic Mucilloid 5.85 gm 03/28/18 22:00 04/09/18 09:32 Metamucil (Sugar-Free) - PO 5.85 gm BID [facility] Administration Senna 2 tab 04/02/18 09:45 Senna - PO HS PRN CONSTIPATION ASSESSMENT/PLAN: CT chest: Partially loculated left pleural effusion with atelectactic changes of the lower lobe. Cardiomegaly and possible mild congestion. Prominent mediastinal lymph nodes. Trace ascites. Abdominal CT: Findings consistent with advanced Hepatocellular disease. Trace ascites. 04/08/18: ultrasound of abdomen: Fatty liver vs Hepatocellular disease. Small right renal cortical cyst measuring 9mm. Right pleural effusion. ASSESSMENT/PLAN: Patient is a 62 year old male with significant past medical history of COPD on 3L home O2, pEFHF, CAD, ICD placement, PAD, DM, Atrial fibrillation not on A/c due to risk of fall was brought in to the ED by family members due to shortness of breath. # Suicidal ideation 1:1. Psych eval pending. As per son at bedside mentions he doesn't have any psych issues in the past. # Dizziness with vertigo- possible BPPV- improving Started on Meclizine 12.5 mg TID Fall precautions # Transaminitis could be from hepatic congestion from CHF As per GI, MRCP recommended if ICD is compatible. Alcohol cessation counseling. # CKD creatinine 2 today (baseline 2-2.1). Appreciate Renal consult. Continue IV Lasix 80 mg BID. Repeat bmp in AM Fluid restriction Avoid Nephrotoxic drugs # Abdominal pain -resolved. # Sinus Tachycardia Continue Lopressor 50mg BID as per cardio. Continue to monitor in tele. # Acute hypoxic respiratory failure likely secondary to CHF/COPD exacerbation superimposed by Pneumonia and Flu- Resolved Completed Tamiflu course. Changed IV steriods to PO Prednisone 20 mg Daily # Elevated troponins likely from [place] ischemia- # Prolonged Qtc 582 on admission Avoid any Qtc prolonging agents # Normocytic anemia H/H stable. likely from CKD Iron studies: High ferritin, normal Iron. B12 and Folate high. # Atrial fibrillation CHADsVASc score of 4. Not on a/c due to risk of fall. PT to evaluate. # Hypertension-controlled continue Metoprolol 50 BID IV Metoprolol 5mg Q4H PRN for tachycardia. # FEN Not on IV fluids due to volume overloaded. Electrolytes WNL Diabetic diet/fat controlled # Prophylaxis For DVT: On Heparin 5000 IU sq TID FoR GI: On Protonix 40mg Daily # Code status: Full Code # Dispo:Admit to tele inpatient. Can go to SNF once cleared by Psych. Illness, Investigation and Plan of care explained to the patient. He verbalized understanding. Case discussed with Dr. Mathias Problem List - Problems (1) Acute exacerbation of CHF (congestive heart failure) Code(s): I50.9 - HEART FAILURE, UNSPECIFIED Qualifiers: Heart failure type: combined systolic and diastolic Qualified Code(s): I50.43 - Acute on chronic combined systolic (congestive) and diastolic ( congestive) heart failure (2) Influenza A Code(s): J10.1 - FLU DUE TO OTH IDENT INFLUENZA VIRUS W OTH RESP MANIFEST (3) Neck pain on right side Code(s): M54.2 - CERVICALGIA (4) Respiratory distress Code(s): R06.00 - DYSPNEA, UNSPECIFIED (5) COPD (chronic obstructive pulmonary disease) Code(s): J44.9 - CHRONIC OBSTRUCTIVE PULMONARY DISEASE, UNSPECIFIED (6) ERROL (acute kidney injury) Code(s): N17.9 - ACUTE KIDNEY FAILURE, UNSPECIFIED (7) Afib Code(s): I48.91 - UNSPECIFIED ATRIAL FIBRILLATION Qualifiers: Atrial fibrillation type: chronic Qualified Code(s): I48.2 - Chronic atrial fibrillation Visit type - Emergency Visit Emergency Visit: Yes ED Registration Date: 03/28/18 Care time: The patient presented to the Emergency Department on the above date and was hospitalized for further evaluation of their emergent condition. - New Patient This patient is new to me today: No - Critical Care Critical Care patient: No - Discharge Referral Referred to [facility] Med P.C.: No
--- NOTE | 2018-04-09 17:41 | PN ---
Progress Note (short form) - Note Progress Note: Patient seen at bedside this pm 1: 1 at his bedside Patient admits that he feels ' like dying' but has no active plan to do so. He states that he is feeling 'depressed' lately due to his medical problems, his inability to take care of himself, ADL, due to SOB and weakness. Also he is not sleeping, Takes Ambien at home but it was not prescribed because of his COPD, and SOB. Patient has no known psychiatric history . No previous suicidal attempt No family hx of suicide He denies having an active plan but when asked about his intention to kill himself, he expressed ambivalence. He expressed helplessness and hopelessness about his progressively worsening medical conditon MS Alert fully oriented, depressed Affect congruent Speech is logical coherent and significant for depression, helplessness. No psycotic symptoms No active suicidal plan No homicidal ideation Imp Although patient has no active plan, I believe he is at risk for suicide and will continue the 1 to! overnight Will see patient again in the am
--- NOTE | 2018-04-09 17:48 | PN ---
GI Progress Note Subjective: Now has 1 to sitter due to depression wants a sleeping pill for sleep Denies abdominal pain - Objective Vital Signs: Vital Signs Temperature 97.3 F L 04/09/18 13:00 Pulse Rate 82 04/09/18 13:00 Respiratory Rate 18 04/09/18 13:00 Blood Pressure 161/97 04/09/18 13:00 O2 Sat by Pulse Oximetry (%) 100 04/09/18 09:00 Constitutional: Calm Eyes: No: Sclera Icterus Cardiovascular: Yes: Pulse Irregular Respiratory: Yes: CTA Bilaterally Gastrointestinal Inspection: No: Distention ...Auscultate: Yes: Normoactive Bowel Sounds ...Palpate: No: Hepatomegaly, Splenomegaly, Tenderness Edema: Yes Edema: LLE: 1+, RLE: 1+ Neurological: Yes: Alert Labs: CBC, BMP 04/09/18 06:30 04/09/18 06:00 INR, PTT INR 1.28 (0.83-1.09) H 04/09/18 06:30 - ....Imaging Ultrasound: Report Reviewed Problem List - Problems (1) Abnormal liver enzymes Assessment/Plan: Asymptomatic and improving No ductal dilatation noted on abdominal US. No gallstones. n review of [facility], the more marked elevations of transaminases and ALP seeemd to have been during this admission. INR has been mildly elevated since at least 2014. He likely as underlying chronic liver disease with acute LFT abnormalities secondary to passive congestion / ? med induced from abx. earlier in admission. improving trends from yesterday Advise: Monitor LFT's Optimization of cardiac status Avoid hepatotoxic agents Advised complete avoidance of alcohol MRCP if ICD compatible Code(s): R74.8 - ABNORMAL LEVELS OF OTHER SERUM ENZYMES
[2018-04-10] MEDS: HEPARIN NA (PORCINE) 5,000 UNITS/ML 1ML VIAL SQ SCH ×2 (00:14→05:47)
[2018-04-10] MEDS: CYCLOBENZAPRINE HCL 10 MG TABLET (FP) PO SCH ×3 (00:14→21:44)
[2018-04-10] MEDS: DOCUSATE SODIUM 100 MG CAPSULE (FP) PO SCH ×4 (00:14→21:44)
[2018-04-10] MEDS: BUDESONIDE/FORMETEROL FUMARATE 80/4.5 mcg INHALER IH SCH ×3 (00:15→21:44)
[2018-04-10] MEDS: INSULIN SLIDING SCALE (NOVOLOG) 1 VIAL SQ SCH ×5 (00:15→21:44)
[2018-04-10] MEDS: PSYLLIUM 5.85 GM PACKET PO SCH ×3 (00:16→21:44)
[2018-04-10] MEDS ORDERED: IPRATROPIUM BR 0.02% 0.5 MG/2.5 ML VIAL.NEB. NEB ONE (05:41)
[2018-04-10] MEDS: FUROSEMIDE 100 MG/10 ML INJECTABLE VIAL IVPB SCH (05:47)
[2018-04-10 06:41] LABS: HEMATOCRIT 37.6 % (35.4-49); HEMOGLOBIN 12.7 GM/dL (11.7-16.9); MCH 31.9 pg (25.7-33.7); MCHC 33.7 g/dl (32.0-35.9); MEAN CELL VOLUME 94.8 fl (80-96); MEAN PLT VOLUME 10.3 fl (7.5-11.1); PLATELET COUNT 87 K/MM3 (134-434); RBC 3.97 M/mm3 (4.00-5.60); RDW 19.2 % (11.9-15.9); WHITE BLOOD COUNT 16.8 K/mm3 (4.0-10.0)
[2018-04-10] MEDS ORDERED: PT OWN MED DRAWER 7, Y5N ONE ×3 (07:04→21:39)
[2018-04-10 07:37] LABS: ALK PHOS 145 U/L (45-117); ANION GAP 11 MMOL/L (8-16); BILIRUBIN,TOTAL 1.6 mg/dL (0.2-1); BLOOD UREA NITROGEN 79 mg/dL (7-18); CALCIUM 8.3 mg/dL (8.5-10.1); CHLORIDE 92 mmol/L (98-107); CO2 29 mmol/L (21-32); GLUCOSE,RANDOM 141 mg/dL (74-106); SGOT/AST 43 U/L (15-37); SGPT/ALT 267 U/L (13-61); SODIUM 132 mmol/L (136-145)
[2018-04-10] MEDS ORDERED: ALBUTEROL SO4 2.5/IPRATROPIUM 0.5 INH SOL 3 ML VIAL.NEB. NEB PRN (09:03)
[2018-04-10] MEDS ORDERED: predniSONE 10 MG TABLET (UD) PO SCH (09:05)
--- NOTE | 2018-04-10 09:09 | PN ---
Physical Exam: SUBJECTIVE: Patient seen and examined, reports some dyspnea this AM, urinating well, denies any suicidal ideation or plan currently. Reports was feeling upset yesterday about not getting better quick. Overall feels well today, reports cough, unable to bring it up. OBJECTIVE: Vital Signs Period Temp Pulse Resp BP Sys/El Pulse Ox Last 24 Hr 97.3 F-97.8 F 63-82 18-20 137-161/79-100 100 GENERAL: The patient is awake, alert, and fully oriented, in no acute distress. HEAD: Normal with no signs of trauma. EYES: PERRL, extraocular movements intact, sclera anicteric, conjunctiva clear. No ptosis. ENT: Ears normal, nares patent, oropharynx clear without exudates, moist mucous membranes. NECK: Trachea midline, full range of motion, supple. LUNGS: scattered wheezing bilaterally, positive air entry, bibasilar rales, L>R HEART: Regular rate and rhythm, S1, S2 ABDOMEN: Soft, nontender, nondistended, normoactive bowel sounds, no guarding, no rebound EXTREMITIES: 2+ pedal edema NEUROLOGICAL: Cranial nerves II through XII grossly intact. Normal speech, gait not observed. PSYCH: Normal mood, normal affect. SKIN: Warm, dry, normal turgor, no rashes or lesions noted Laboratory Results - last 24 hr 04/08/18 04/08/18 04/09/18 06:30 06:30 06:00 WBC RBC Hgb Hct MCV MCH MCHC RDW Plt Count MPV Sodium 132 L Potassium 4.1 Chloride 93 L Carbon Dioxide 27 Anion Gap 12 BUN 84 H Creatinine 2.0 H Creat Clearance w eGFR 34.03 POC Glucometer Random Glucose 169 H Calcium 8.1 L Phosphorus 3.7 Magnesium 2.5 H Total Bilirubin 1.2 H AST 73 H ALT 339 H Alkaline Phosphatase 161 H Total Protein 5.8 L Albumin 2.9 L MICHELLE Screen Negative Smooth Musc &PLANT GUARD Intrp 7 04/09/18 04/09/18 04/10/18 11:45 16:52 00:09 WBC RBC Hgb Hct MCV MCH MCHC RDW Plt Count MPV Sodium Potassium Chloride Carbon Dioxide Anion Gap BUN Creatinine Creat Clearance w eGFR POC Glucometer 227 175 212 Random Glucose Calcium Phosphorus Magnesium Total Bilirubin AST ALT Alkaline Phosphatase Total Protein Albumin MICHELLE Screen Smooth Musc &PLANT GUARD Intrp 04/10/18 04/10/18 04/10/18 05:35 05:50 05:50 WBC 16.8 H RBC 3.97 L Hgb 12.7 Hct 37.6 MCV 94.8 MCH 31.9 MCHC 33.7 RDW 19.2 H Plt Count 87 L MPV 10.3 Sodium 132 L Potassium 4.0 Chloride 92 L Carbon Dioxide 29 Anion Gap 11 BUN 79 H Creatinine 2.0 H Creat Clearance w eGFR 34.03 POC Glucometer 144 Random Glucose 141 H Calcium 8.3 L Phosphorus Magnesium Total Bilirubin 1.6 H AST 43 H ALT 267 H Alkaline Phosphatase 145 H Total Protein 6.0 L Albumin 3.0 L MICHELLE Screen Smooth Musc &PLANT GUARD Intrp Active Medications Generic Name Dose Route Start Last Admin Trade Name Freq PRN Reason Stop Dose Admin Acetylcysteine 200 mg 04/10/18 12:00 Mucomyst 20 Oral / Inh Use Only* NEB RQID MANJU Albuterol/Ipratropium 1 amp 04/10/18 09:03 Duoneb - NEB Q4H PRN SHORTNESS OF BREATH Aspirin 81 mg 03/29/18 10:00 04/09/18 09:31 Ecotrin - PO 81 mg DAILY MANJU Administration Benzocaine/Menthol 1 each 04/03/18 08:00 04/03/18 09:26 Cepacol Lozenge - MM 1 each PRN PRN Administration SORE THROAT Budesonide/Formoterol Fumarate 2 puff 04/02/18 22:00 04/10/18 00:15 Symbicort 80/4.5mcg - IH 2 puff BID MANJU Administration Cholecalciferol 2,000 unit 03/29/18 10:00 04/09/18 09:31 Vitamin D3 - PO 2,000 unit DAILY MANJU Administration Cyclobenzaprine HCl 5 mg 03/28/18 22:00 04/10/18 00:14 Flexeril - PO 5 mg BID MANJU Administration Docusate Sodium 100 mg 03/28/18 14:00 04/10/18 05:47 Colace - PO 100 mg TID MANJU Administration Furosemide 80 mg 04/09/18 06:00 04/10/18 05:47 Lasix Injection - IVPB 80 mg BID@0600,1400 MANJU Administration Heparin Sodium (Porcine) 5,000 unit 04/07/18 22:00 04/10/18 05:47 Heparin - SQ 5,000 unit TID MANJU Administration Insulin Aspart 1 vial 03/28/18 12:23 04/10/18 06:34 Novolog Vial Sliding Scale - SQ Not Given ACHS [facility] Protocol Meclizine HCl 12.5 mg 04/08/18 16:48 Antivert - PO Q8H PRN VERTIGO Metoprolol Succinate 50 mg 04/02/18 22:00 04/10/18 00:14 Toprol Xl - PO 50 mg BID MANJU Administration Metoprolol Tartrate 5 mg 03/31/18 11:02 04/01/18 21:40 Lopressor Injection - IVPUSH 5 mg Q4H PRN Administration TACHYCARDIA Oxycodone HCl 10 mg 04/04/18 16:55 04/09/18 15:33 Roxicodone - PO 10 mg Q6H PRN Administration PAIN LEVEL 6-10 Pantoprazole Sodium 40 mg 03/29/18 10:00 04/09/18 09:31 Protonix - PO 40 mg DAILY MANJU Administration Psyllium Hydrophilic Mucilloid 5.85 gm 03/28/18 22:00 04/10/18 00:16 Metamucil (Sugar-Free) - PO 5.85 gm BID MANJU Administration Senna 2 tab 04/02/18 09:45 Senna - PO HS PRN CONSTIPATION Microbiology 03/28/18 06:43 Blood - Peripheral Venous Blood Culture - Final NO GROWTH AFTER 5 DAYS INCUBATION 03/28/18 06:43 Blood - Peripheral Venous Blood Culture - Final NO GROWTH AFTER 5 DAYS INCUBATION 03/31/18 11:45 Urine - Urine Clean Catch Urine Culture - Final NO GROWTH OBTAINED 03/28/18 22:00 Urine For Antigen Detection Legionella Antigen - Final 03/28/18 22:00 Urine For Antigen Detection Streptococcus pneumoniae Antigen (M - Final CXR - overall unchanged ASSESSMENT/PLAN: 62 year old male with significant past medical history of copd, cabgx3 2012, bio avr 2012, pad s/p b/l sfa occlusions, syst chf s/p medtronic icd, htn, hld, a-tach, CKD (baseline cr 2.2-2.4), admitted with shortness of breath. -Acute hypoxic respiratory failure -Acute influenza A illness -Acute LLL HCAP with loculated pleural effusion -Acute on chronic systolic heart failure exacerbation -Abnormal LFTs, suspect passive hepatic congestion -Hepatocellular disease, ?Passive hepatic congestion -Fall on 04/07/2018 -Elevated troponin, suspect demand type II NSTEMI from above -Cardiomyopathy (EF 30-35%) s/p medtronic ICD -Atrial fibrillation/Flutter not on AC due to risk of falls -HTN -HLD -Bioprosthetic AVR 2012 -CABG x 3 -PAD s/p bilateral SFA occlusion -CKD (baseline cr 2.2-2.4) -Anemia of chronic disease Plan: Mental status improved, trauma w/u 04/07/18 neg post fall. LFTs improved, no abdominal symptoms, hep panel neg. Abdominal US noted. GI input noted. Hold statin for now. Unable to get MRCP given ICD, improved, suspect is from passive hepatic congestion, monitor. s/p tamiflu and zosyn, completed treatment. Wheezy today, change prednisone 30 mg daily. Add mucomyst QID with nebs. Change lasix to 80 mg PO BID, Strict I/Os, daily weights, Defer to cardiology about retirement anticoagulation Patient continues to be fall risk with reported fall on 04/07/2018. Cardiology/pulmonary/nephrology input appreciated. Neurology input noted. Ammonia levels noted. Lactulose prn. Metoprolol/ASA Bowel regimen DVTPPx heparin PT eval noted dispo plan for home d/c in 24-48 hours on PO lasix if continues to improve. Plan discussed with patient and nursing in detail, all questions answered. Visit type - Emergency Visit Emergency Visit: Yes ED Registration Date: 03/28/18 Care time: The patient presented to the Emergency Department on the above date and was hospitalized for further evaluation of their emergent condition. - New Patient This patient is new to me today: No - Critical Care Critical Care patient: No - Discharge Referral Referred to [facility] No
[2018-04-10] MEDS: PANTOPRAZOLE 40 MG TABLET (FP) PO SCH (10:44)
[2018-04-10] MEDS: CHOLECALCIFEROL (VITAMIN D3) 1,000 UNIT TABLET (FP) PO SCH (10:44)
[2018-04-10] MEDS: ASPIRIN COATED 81 MG TABLET.EC PO SCH (10:44)
--- NOTE | 2018-04-10 11:07 | PN ---
Progress Note, Physician History of Present Illness: Feels improved, breathing better No CV complaints this AM Tele: V-paced - Current Medication List Current Medications: Active Medications Acetylcysteine (Mucomyst 20 Oral / Inh Use Only*) 200 mg NEB RQID [facility] Albuterol Sulfate (Ventolin 0.083% Nebulizer Soln -) 1 amp NEB Q4H PRN PRN Reason: SHORTNESS OF BREATH Aspirin (Ecotrin -) 81 mg PO DAILY [facility] Last Admin: 04/10/18 10:44 Dose: 81 mg Benzocaine/Menthol (Cepacol Lozenge -) 1 each MM PRN PRN PRN Reason: SORE THROAT Last Admin: 04/03/18 09:26 Dose: 1 each Budesonide/Formoterol Fumarate (Symbicort 80/4.5mcg -) 2 puff IH BID [facility] Last Admin: 04/10/18 10:44 Dose: 2 puff Cholecalciferol (Vitamin D3 -) 2,000 unit PO DAILY [facility] Last Admin: 04/10/18 10:44 Dose: 2,000 unit Cyclobenzaprine HCl (Flexeril -) 5 mg PO BID [facility] Last Admin: 04/10/18 10:44 Dose: 5 mg Docusate Sodium (Colace -) 100 mg PO TID [facility] Last Admin: 04/10/18 05:47 Dose: 100 mg Furosemide (Lasix Injection -) 80 mg IVPB BID@0600,1400 [facility] Last Admin: 04/10/18 05:47 Dose: 80 mg Heparin Sodium (Porcine) (Heparin -) 5,000 unit SQ TID [facility] Last Admin: 04/10/18 05:47 Dose: 5,000 unit Insulin Aspart (Novolog Vial Sliding Scale -) 1 vial SQ ACHS [facility]; Protocol Last Admin: 04/10/18 06:34 Dose: Not Given Meclizine HCl (Antivert -) 12.5 mg PO Q8H PRN PRN Reason: VERTIGO Metoprolol Succinate (Toprol Xl -) 50 mg PO BID [facility] Last Admin: 04/10/18 10:44 Dose: 50 mg Metoprolol Tartrate (Lopressor Injection -) 5 mg IVPUSH Q4H PRN PRN Reason: TACHYCARDIA Last Admin: 04/01/18 21:40 Dose: 5 mg Oxycodone HCl (Roxicodone -) 10 mg PO Q6H PRN PRN Reason: PAIN LEVEL 6-10 Last Admin: 04/09/18 15:33 Dose: 10 mg Pantoprazole Sodium (Protonix -) 40 mg PO DAILY [facility] Last Admin: 04/10/18 10:44 Dose: 40 mg Psyllium Hydrophilic Mucilloid (Metamucil (Sugar-Free) -) 5.85 gm PO BID [facility] Last Admin: 04/10/18 10:44 Dose: 5.85 gm Senna (Senna -) 2 tab PO HS PRN PRN Reason: CONSTIPATION - Objective Vital Signs: Vital Signs Temperature 97.4 F L 04/10/18 09:00 Pulse Rate 63 04/10/18 09:00 Respiratory Rate 18 04/10/18 09:00 Blood Pressure 138/76 04/10/18 09:00 O2 Sat by Pulse Oximetry (%) 100 04/10/18 09:00 Constitutional: Yes: No Distress, Calm Eyes: Yes: WNL HENT: Yes: WNL Neck: Yes: WNL Cardiovascular: Yes: Regular Rate and Rhythm, Murmur Respiratory: Yes: Rales, Rhonchi Gastrointestinal: Yes: Normal Bowel Sounds Musculoskeletal: Yes: WNL Edema: Yes Labs: CBC, BMP 04/10/18 05:50 04/10/18 05:50 INR, PTT INR 1.28 (0.83-1.09) H 04/09/18 06:30 Assessment/Plan a/p: 62 m hx copd, cabgx3 2012, bio avr 2012, pad s/p b/l sfa occlusions, syst chf s/p medtronic icd, htn, hld, a-tach, here with back pain, sob. pna, flu: -cont abx per ID acute on chronic systolic CHF exacerbation: -past dry wt here 187 lbs (recent discharge) -here with mild chf exacerbation likely worsened by flu/pna -03/30 was on lasix 80 po qd at home, weight stable, stable Cr, feels the same - increased lasix to 40 mg IV BID -03/31 Cr rising, change to lasix 40 mg IV daily -04/01: cont same iv lasix -04/02-: bun/cr rising, cxr shows less congestion, stopped iv lasix, monitoring cr trend before resuming po lasix -04/04: cr slightly better today, continue to hold lasix -04/05: remains signif above dry wt with no change for several days (199-200). JVD persists (note: this resolved during recent admit when well-diuresed). incr sob/orthopnea. creat improved vs peak, close to his baseline; BUN progressively rising here: ? steroids effect. needs diuresis. start lasix 80 iv bid today-- reassess in am. renal fxn may improve with diuresis--otherwise may need consider milrinone trial -04/06: only given one dose of lasix 80 iv yesterday due to computer and pharmacy issues with timing. wt down 1 lb, remains above recent dry wt. ongoing orthopnea : ? component from influenza--though no acute parenchymal findings on CT chest makes PNA unlikely. renal fxn stable. not collecting urine accurately, pt can't say if incr'd diuresis yest with lasix 80mg. give lasix 80 iv bid today, strict UOP assessment (d/w'd RN these instrxns) -04/07-4 weight down with lasix 80 mg IV BID, Cr stable, continue same. Will likely be able to change to po lasix tomorrow. Would change to po 80 bid with close outpt monitoring of cr/vol status. -cont metopr succ 50 bid. not on LESTER-I due to h/o hyperkalemia (hence defer entresto as well) -04/10: Weight down and stable at 192#) on Lasix 80mg IV BID. Creat stable at 2. Will change to PO Lasix today and monitor. atrial flutter: -pt in AFL on ekg -CHADS VASC 4, warrants AC for cardioembolic prophylaxis. but as per prior notes , pt is at prohibitive risks of falls/head trauma at present (very frequent falls recently including head trauma, suspected LE weakness with mechanical falls etiology) will defer AC for now. Prior plan was for pt to f/u in office to discuss fall risk/ac further but he did not come to appt (often misses appts) . Rec'd that he have PT eval while here to assess his fall status so can decide upon rodent 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 AC before leaves. - episodes of RVR likely more frequent in setting of PNA, flu. changed coreg to toprol 50 bid and hr improved.
[2018-04-10] MEDS: ACETYLCYSTEINE 20% 200MG/ML 4 ML VIAL *FOR ORAL / INH USE ONLY NEB SCH ×3 (11:32→20:15)
[2018-04-10] MEDS: ALBUTEROL SO4 0.083% IH SOL 2.5 MG/3 ML VIAL.NEB. NEB PRN ×3 (11:33→20:16)
--- NOTE | 2018-04-10 12:23 | PN ---
Progress Note (short form) - Note Progress Note: Patient seen at bedside this am at his bedside He is more comfortable , breathing easier today and in better spriits. He states, "I feel OK = If I can't breath,I don't feel like living. After his albuterol treatment last night, he is feeling much "better". He is looking forward to his son's visit today. Patient denies suicidal intent/plan. No active plan. MS Alert fully oriented, Mood is neutral Affect congruent Speech is logical coherent No psychotic symptoms No active suicidal plan No homicidal ideation Imp Patient breathing has improved and he no longer verbalizing a wish to , DC 1 to1 low suicidal risk at this time
--- NOTE | 2018-04-10 12:28 | PN ---
Progress Note (short form) - Note Progress Note: Feels overall better today. Less congested cough. No CP. Intake & Output 04/07/18 04/08/18 04/09/18 04/10/18 23:59 23:59 23:59 23:59 Intake Total 920 920 510 Output Total 1999 266 600 600 Balance -1080 245 -90 -600 Weight 195 lb 191 lb 192 lb 192 lb 9.6 oz Last Vital Signs Temp Pulse Resp BP Pulse Ox 97.4 F L 63 18 138/76 100 04/10/18 09:00 04/10/18 09:00 04/10/18 09:00 04/10/18 09:00 04/10/18 09:00 Active Medications Acetylcysteine (Mucomyst 20 Oral / Inh Use Only*) 200 mg NEB RQID [facility] Last Admin: 04/10/18 11:32 Dose: 200 mg Albuterol Sulfate (Ventolin 0.083% Nebulizer Soln -) 1 amp NEB Q4H PRN PRN Reason: SHORTNESS OF BREATH Last Admin: 04/10/18 11:33 Dose: 1 amp Aspirin (Ecotrin -) 81 mg PO DAILY [facility] Last Admin: 04/10/18 10:44 Dose: 81 mg Benzocaine/Menthol (Cepacol Lozenge -) 1 each MM PRN PRN PRN Reason: SORE THROAT Last Admin: 04/03/18 09:26 Dose: 1 each Budesonide/Formoterol Fumarate (Symbicort 80/4.5mcg -) 2 puff IH BID [facility] Last Admin: 04/10/18 10:44 Dose: 2 puff Cholecalciferol (Vitamin D3 -) 2,000 unit PO DAILY [facility] Last Admin: 04/10/18 10:44 Dose: 2,000 unit Cyclobenzaprine HCl (Flexeril -) 5 mg PO BID [facility] Last Admin: 04/10/18 10:44 Dose: 5 mg Docusate Sodium (Colace -) 100 mg PO TID [facility] Last Admin: 04/10/18 05:47 Dose: 100 mg Furosemide (Lasix -) 80 mg PO BID@0600,1400 [facility] Insulin Aspart (Novolog Vial Sliding Scale -) 1 vial SQ ACHS [facility]; Protocol Last Admin: 04/10/18 11:16 Dose: 2 units Meclizine HCl (Antivert -) 12.5 mg PO Q8H PRN PRN Reason: VERTIGO Metoprolol Succinate (Toprol Xl -) 50 mg PO BID [facility] Last Admin: 04/10/18 10:44 Dose: 50 mg Metoprolol Tartrate (Lopressor Injection -) 5 mg IVPUSH Q4H PRN PRN Reason: TACHYCARDIA Last Admin: 04/01/18 21:40 Dose: 5 mg Oxycodone HCl (Roxicodone -) 10 mg PO Q6H PRN PRN Reason: PAIN LEVEL 6-10 Last Admin: 04/09/18 15:33 Dose: 10 mg Pantoprazole Sodium (Protonix -) 40 mg PO DAILY [facility] Last Admin: 04/10/18 10:44 Dose: 40 mg Psyllium Hydrophilic Mucilloid (Metamucil (Sugar-Free) -) 5.85 gm PO BID [facility] Last Admin: 04/10/18 10:44 Dose: 5.85 gm Senna (Senna -) 2 tab PO HS PRN PRN Reason: CONSTIPATION Gen: NAD in chair Heart: RRR Lung: decreased breath sounds at the bases Abd: soft, nontender Ext: no edema Laboratory Results - last 24 hr 04/08/18 04/08/18 04/09/18 06:30 06:30 16:52 WBC RBC Hgb Hct MCV MCH MCHC RDW Plt Count MPV Sodium Potassium Chloride Carbon Dioxide Anion Gap BUN Creatinine Creat Clearance w eGFR POC Glucometer 175 Random Glucose Calcium Total Bilirubin AST ALT Alkaline Phosphatase Total Protein Albumin MICHELLE Screen Negative Smooth Musc &HORSEBACK EXCAVATOR Intrp 7 04/10/18 04/10/18 04/10/18 00:09 05:35 05:50 WBC 16.8 H RBC 3.97 L Hgb 12.7 Hct 37.6 MCV 94.8 MCH 31.9 MCHC 33.7 RDW 19.2 H Plt Count 87 L MPV 10.3 Sodium Potassium Chloride Carbon Dioxide Anion Gap BUN Creatinine Creat Clearance w eGFR POC Glucometer 212 144 Random Glucose Calcium Total Bilirubin AST ALT Alkaline Phosphatase Total Protein Albumin MICHELLE Screen Smooth Musc &HORSEBACK EXCAVATOR Intrp 04/10/18 04/10/18 05:50 11:14 WBC RBC Hgb Hct MCV MCH MCHC RDW Plt Count MPV Sodium 132 L Potassium 4.0 Chloride 92 L Carbon Dioxide 29 Anion Gap 11 BUN 79 H Creatinine 2.0 H Creat Clearance w eGFR 34.03 POC Glucometer 181 Random Glucose 141 H Calcium 8.3 L Total Bilirubin 1.6 H AST 43 H ALT 267 H Alkaline Phosphatase 145 H Total Protein 6.0 L Albumin 3.0 L MICHELLE Screen Smooth Musc &HORSEBACK EXCAVATOR Intrp A/P Acute on Chronic Hypoxic Respiratory Failure Influenza A Acute on Chronic Systolic Heart Failure Mitral Regurgitation Acute COPD Exacerbation +Troponins likely Demand Ischemia Atrial Flutter h/o AVR Pulmonary HTN - O2 to keep SpO2>90% - prednisone 40mg OD x 5 days additional dose - inhaled bronchodilators - lasix - monitor urine output, creatinine - rate control - DVT prophylaxis Dr Garner
[2018-04-10] MEDS: FUROSEMIDE 40 MG TABLET (FP) PO SCH (13:09)
--- NOTE | 2018-04-10 15:23 | PN ---
Progress Note, Physician History of Present Illness: Pt is alert and fully responsive. Denies current respiratory distress or cough. Has no other specific complaints. - Current Medication List Current Medications: Active Medications Acetylcysteine (Mucomyst 20 Oral / Inh Use Only*) 200 mg NEB RQID [facility] Last Admin: 04/10/18 11:32 Dose: 200 mg Albuterol Sulfate (Ventolin 0.083% Nebulizer Soln -) 1 amp NEB Q4H PRN PRN Reason: SHORTNESS OF BREATH Last Admin: 04/10/18 11:33 Dose: 1 amp Aspirin (Ecotrin -) 81 mg PO DAILY [facility] Last Admin: 04/10/18 10:44 Dose: 81 mg Benzocaine/Menthol (Cepacol Lozenge -) 1 each MM PRN PRN PRN Reason: SORE THROAT Last Admin: 04/03/18 09:26 Dose: 1 each Budesonide/Formoterol Fumarate (Symbicort 80/4.5mcg -) 2 puff IH BID [facility] Last Admin: 04/10/18 10:44 Dose: 2 puff Cholecalciferol (Vitamin D3 -) 2,000 unit PO DAILY [facility] Last Admin: 04/10/18 10:44 Dose: 2,000 unit Cyclobenzaprine HCl (Flexeril -) 5 mg PO BID [facility] Last Admin: 04/10/18 10:44 Dose: 5 mg Docusate Sodium (Colace -) 100 mg PO TID [facility] Last Admin: 04/10/18 13:10 Dose: 100 mg Furosemide (Lasix -) 80 mg PO BID@0600,1400 [facility] Last Admin: 04/10/18 13:09 Dose: 80 mg Insulin Aspart (Novolog Vial Sliding Scale -) 1 vial SQ ACHS [facility]; Protocol Last Admin: 04/10/18 11:16 Dose: 2 units Meclizine HCl (Antivert -) 12.5 mg PO Q8H PRN PRN Reason: VERTIGO Metoprolol Succinate (Toprol Xl -) 50 mg PO BID [facility] Last Admin: 04/10/18 10:44 Dose: 50 mg Metoprolol Tartrate (Lopressor Injection -) 5 mg IVPUSH Q4H PRN PRN Reason: TACHYCARDIA Last Admin: 04/01/18 21:40 Dose: 5 mg Pantoprazole Sodium (Protonix -) 40 mg PO DAILY [facility] Last Admin: 04/10/18 10:44 Dose: 40 mg Psyllium Hydrophilic Mucilloid (Metamucil (Sugar-Free) -) 5.85 gm PO BID [facility] Last Admin: 04/10/18 10:44 Dose: 5.85 gm Senna (Senna -) 2 tab PO HS PRN PRN Reason: CONSTIPATION - Objective Vital Signs: Vital Signs Temperature 97.5 F L 04/10/18 14:16 Pulse Rate 63 04/10/18 14:16 Respiratory Rate 20 04/10/18 14:16 Blood Pressure 139/80 04/10/18 14:16 O2 Sat by Pulse Oximetry (%) 100 04/10/18 09:00 Constitutional: Yes: No Distress, Calm Cardiovascular: Yes: Regular Rate and Rhythm Respiratory: Yes: CTA Bilaterally Gastrointestinal: Yes: Normal Bowel Sounds, Soft Genitourinary: Yes: WNL Extremities: Yes: WNL Neurological: Yes: Alert Labs: CBC, BMP 04/10/18 05:50 04/10/18 05:50 INR, PTT INR 1.28 (0.83-1.09) H 04/09/18 06:30 Problem List - Problems (1) Acute exacerbation of CHF (congestive heart failure) Code(s): I50.9 - HEART FAILURE, UNSPECIFIED Qualifiers: Heart failure type: combined systolic and diastolic Qualified Code(s): I50.43 - Acute on chronic combined systolic (congestive) and diastolic ( congestive) heart failure (2) Influenza A Code(s): J10.1 - FLU DUE TO OTH IDENT INFLUENZA VIRUS W OTH RESP MANIFEST (3) Respiratory distress Code(s): R06.00 - DYSPNEA, UNSPECIFIED (4) COPD (chronic obstructive pulmonary disease) Code(s): J44.9 - CHRONIC OBSTRUCTIVE PULMONARY DISEASE, UNSPECIFIED (5) Afib Code(s): I48.91 - UNSPECIFIED ATRIAL FIBRILLATION Qualifiers: Atrial fibrillation type: chronic Qualified Code(s): I48.2 - Chronic atrial fibrillation (6) Chronic respiratory failure Code(s): J96.10 - CHRONIC RESPIRATORY FAILURE, UNSP W HYPOXIA OR HYPERCAPNIA (7) Pneumonia Code(s): J18.9 - PNEUMONIA, UNSPECIFIED ORGANISM Qualifiers: Pneumonia type: due to unspecified organism Laterality: left Lung location: lower lobe of lung Qualified Code(s): J18.1 - Lobar pneumonia, unspecified organism (8) S/P AVR Code(s): Z95.2 - PRESENCE OF PROSTHETIC HEART VALVE (9) CAD (coronary artery disease) Code(s): I25.10 - ATHSCL HEART DISEASE OF [place] CORONARY ARTERY W/O ANG PCTRS Qualifiers: [place] vs. transplanted heart: [place] heart Associated angina: without angina (10) COPD (chronic obstructive pulmonary disease) Code(s): J44.9 - CHRONIC OBSTRUCTIVE PULMONARY DISEASE, UNSPECIFIED Qualifiers: COPD type: COPD with acute exacerbation Qualified Code(s): J44.1 - Chronic obstructive pulmonary disease with (acute) exacerbation (11) Chronic kidney disease (CKD) Code(s): N18.9 - CHRONIC KIDNEY DISEASE, UNSPECIFIED Qualifiers: Chronic kidney disease stage: stage 3 (moderate) Qualified Code(s): N18.3 - Chronic kidney disease, stage 3 (moderate) (12) Diabetes mellitus with chronic kidney disease Code(s): E11.22 - TYPE 2 DIABETES MELLITUS W DIABETIC CHRONIC KIDNEY DISEASE; N18.9 - CHRONIC KIDNEY DISEASE, UNSPECIFIED Qualifiers: Diabetes mellitus type: type 2 Chronic kidney disease stage: stage 3 ( moderate) (13) Peripheral vascular disease Code(s): I73.9 - PERIPHERAL VASCULAR DISEASE, UNSPECIFIED (15) Acute on chronic respiratory failure with hypoxemia Code(s): J96.21 - ACUTE AND CHRONIC RESPIRATORY FAILURE WITH HYPOXIA Assessment/Plan 62 y.o. male with PMH of COPD on home O2, CHF, CAD s/p CABG, AICD, bioprosthetic AVR, MR, Atrial Fibrillation, CKD, HTN, DM and PVD presenting with SOB/tachynea, chest discomfort, leukocytosis, lactic acidosis, pulmonary congestion Influenza A PNA Sepsis Acute on chronic CHF COPD CKD DM CAD s/p CABG s/p AICD s/p AVR MR AFIB -- s/p Antibiotic treatment -- currently without acute respiratory distress, afebrile continue monitor
--- NOTE | 2018-04-10 19:12 | PN ---
Progress Note (short form) - Note Progress Note: renal function same uneventful day Problems 1. CKD 2. proteinuria 3. CAD 4. CHF 5. COPD 6. DM 7. HTN 8. azotemia/fior 9. anemia Current Medications Acetylcysteine (Mucomyst 20 Oral / Inh Use Only*) 200 mg NEB RQID [facility] Last Admin: 04/10/18 15:30 Dose: 200 mg Albuterol Sulfate (Ventolin 0.083% Nebulizer Soln -) 1 amp NEB Q4H PRN PRN Reason: SHORTNESS OF BREATH Last Admin: 04/10/18 15:30 Dose: 1 amp Aspirin (Ecotrin -) 81 mg PO DAILY [facility] Last Admin: 04/10/18 10:44 Dose: 81 mg Benzocaine/Menthol (Cepacol Lozenge -) 1 each MM PRN PRN PRN Reason: SORE THROAT Last Admin: 04/03/18 09:26 Dose: 1 each Budesonide/Formoterol Fumarate (Symbicort 80/4.5mcg -) 2 puff IH BID [facility] Last Admin: 04/10/18 10:44 Dose: 2 puff Cholecalciferol (Vitamin D3 -) 2,000 unit PO DAILY [facility] Last Admin: 04/10/18 10:44 Dose: 2,000 unit Cyclobenzaprine HCl (Flexeril -) 5 mg PO BID [facility] Last Admin: 04/10/18 10:44 Dose: 5 mg Docusate Sodium (Colace -) 100 mg PO TID [facility] Last Admin: 04/10/18 13:10 Dose: 100 mg Furosemide (Lasix -) 80 mg PO BID@0600,1400 [facility] Last Admin: 04/10/18 13:09 Dose: 80 mg Insulin Aspart (Novolog Vial Sliding Scale -) 1 vial SQ ACHS [facility]; Protocol Last Admin: 04/10/18 17:16 Dose: 6 units Meclizine HCl (Antivert -) 12.5 mg PO Q8H PRN PRN Reason: VERTIGO Metoprolol Succinate (Toprol Xl -) 50 mg PO BID [facility] Last Admin: 04/10/18 10:44 Dose: 50 mg Metoprolol Tartrate (Lopressor Injection -) 5 mg IVPUSH Q4H PRN PRN Reason: TACHYCARDIA Last Admin: 04/01/18 21:40 Dose: 5 mg Pantoprazole Sodium (Protonix -) 40 mg PO DAILY [facility] Last Admin: 04/10/18 10:44 Dose: 40 mg Psyllium Hydrophilic Mucilloid (Metamucil (Sugar-Free) -) 5.85 gm PO BID [facility] Last Admin: 04/10/18 10:44 Dose: 5.85 gm Senna (Senna -) 2 tab PO HS PRN PRN Reason: CONSTIPATION Last Vital Signs Temp Pulse Resp BP Pulse Ox 97.8 F 62 19 140/78 100 04/10/18 18:00 04/10/18 18:00 04/10/18 18:00 04/10/18 18:00 04/10/18 09:00 lungs clear heart reg s1s2 Abd soft nontender ext no edema CBC, BMP 04/10/18 05:50 04/10/18 05:50 IMP 1. CKD 2. proteinuria 3. CAD 4. CHF 5. COPD 6. DM 7. HTN 8. azotemia/fior 9. anemia Plan- same rx
[2018-04-11] MEDS: DOCUSATE SODIUM 100 MG CAPSULE (FP) PO SCH ×3 (06:26→21:18)
[2018-04-11] MEDS: FUROSEMIDE 40 MG TABLET (FP) PO SCH ×2 (06:26→15:16)
[2018-04-11] MEDS: INSULIN SLIDING SCALE (NOVOLOG) 1 VIAL SQ SCH ×4 (06:27→21:16)
[2018-04-11] MEDS: ACETYLCYSTEINE 20% 200MG/ML 4 ML VIAL *FOR ORAL / INH USE ONLY NEB SCH ×4 (08:00→19:42)
[2018-04-11] MEDS: ALBUTEROL SO4 0.083% IH SOL 2.5 MG/3 ML VIAL.NEB. NEB PRN (08:01)
[2018-04-11 08:35] LABS: HEMATOCRIT 35.5 % (35.4-49); HEMOGLOBIN 11.3 GM/dL (11.7-16.9); MCH 30.5 pg (25.7-33.7); MCHC 31.9 g/dl (32.0-35.9); MEAN CELL VOLUME 95.5 fl (80-96); MEAN PLT VOLUME 10.3 fl (7.5-11.1); PLATELET COUNT 66 K/MM3 (134-434); RBC 3.71 M/mm3 (4.00-5.60); RDW 19.1 % (11.9-15.9); WHITE BLOOD COUNT 10.4 K/mm3 (4.0-10.0)
[2018-04-11 08:36] LABS: BASO % 0.4 % (0-2.0); EOS % 0.5 % (0-4.5); LYMPH % 2.5 % (8-40); MONO % 6.1 % (3.8-10.2); NEUT % 90.5 % (42.8-82.8)
--- NOTE | 2018-04-11 09:57 | PN ---
Progress Note, Physician History of Present Illness: No complaints Feels improved from dyspena perspective Tele: V-paced - Current Medication List Current Medications: Active Medications Acetylcysteine (Mucomyst 20 Oral / Inh Use Only*) 200 mg NEB RQID [facility] Last Admin: 04/11/18 08:00 Dose: 200 mg Albuterol Sulfate (Ventolin 0.083% Nebulizer Soln -) 1 amp NEB Q4H PRN PRN Reason: SHORTNESS OF BREATH Last Admin: 04/11/18 08:01 Dose: 1 amp Aspirin (Ecotrin -) 81 mg PO DAILY [facility] Last Admin: 04/10/18 10:44 Dose: 81 mg Benzocaine/Menthol (Cepacol Lozenge -) 1 each MM PRN PRN PRN Reason: SORE THROAT Last Admin: 04/03/18 09:26 Dose: 1 each Budesonide/Formoterol Fumarate (Symbicort 80/4.5mcg -) 2 puff IH BID [facility] Last Admin: 04/10/18 21:44 Dose: 2 puff Cholecalciferol (Vitamin D3 -) 2,000 unit PO DAILY [facility] Last Admin: 04/10/18 10:44 Dose: 2,000 unit Cyclobenzaprine HCl (Flexeril -) 5 mg PO BID [facility] Last Admin: 04/10/18 21:44 Dose: 5 mg Docusate Sodium (Colace -) 100 mg PO TID [facility] Last Admin: 04/11/18 06:26 Dose: 100 mg Furosemide (Lasix -) 80 mg PO BID@0600,1400 [facility] Last Admin: 04/11/18 06:26 Dose: 80 mg Insulin Aspart (Novolog Vial Sliding Scale -) 1 vial SQ ACHS [facility]; Protocol Last Admin: 04/11/18 06:27 Dose: 2 units Meclizine HCl (Antivert -) 12.5 mg PO Q8H PRN PRN Reason: VERTIGO Metoprolol Succinate (Toprol Xl -) 50 mg PO BID [facility] Last Admin: 04/10/18 21:44 Dose: 50 mg Metoprolol Tartrate (Lopressor Injection -) 5 mg IVPUSH Q4H PRN PRN Reason: TACHYCARDIA Last Admin: 04/01/18 21:40 Dose: 5 mg Pantoprazole Sodium (Protonix -) 40 mg PO DAILY [facility] Last Admin: 04/10/18 10:44 Dose: 40 mg Psyllium Hydrophilic Mucilloid (Metamucil (Sugar-Free) -) 5.85 gm PO BID [facility] Last Admin: 04/10/18 21:44 Dose: Not Given Senna (Senna -) 2 tab PO HS PRN PRN Reason: CONSTIPATION - Objective Vital Signs: Vital Signs Temperature 97.4 F L 04/11/18 06:00 Pulse Rate 63 04/11/18 06:00 Respiratory Rate 20 04/11/18 06:00 Blood Pressure 155/91 04/11/18 06:00 O2 Sat by Pulse Oximetry (%) 98 04/10/18 20:30 Constitutional: Yes: No Distress Eyes: Yes: WNL HENT: Yes: WNL Neck: Yes: WNL Cardiovascular: Yes: Regular Rate and Rhythm Respiratory: Yes: CTA Bilaterally Gastrointestinal: Yes: Normal Bowel Sounds Musculoskeletal: Yes: WNL Extremities: Yes: WNL Edema: LLE: 1+, RLE: 1+ Labs: CBC, BMP 04/11/18 05:55 INR, PTT INR 1.28 (0.83-1.09) H 04/09/18 06:30 Assessment/Plan a/p: 62 m hx copd, cabgx3 2012, bio avr 2012, pad s/p b/l sfa occlusions, syst chf s/p medtronic icd, htn, hld, a-tach, here with back pain, sob. pna, flu: -cont abx per ID acute on chronic systolic CHF exacerbation: -past dry wt here 187 lbs (recent discharge) -here with mild chf exacerbation likely worsened by flu/pna -03/30 was on lasix 80 po qd at home, weight stable, stable Cr, feels the same - increased lasix to 40 mg IV BID -03/31 Cr rising, change to lasix 40 mg IV daily -04/01: cont same iv lasix -04/02-: bun/cr rising, cxr shows less congestion, stopped iv lasix, monitoring cr trend before resuming po lasix -04/04: cr slightly better today, continue to hold lasix -04/05: remains signif above dry wt with no change for several days (199-200). JVD persists (note: this resolved during recent admit when well-diuresed). incr sob/orthopnea. creat improved vs peak, close to his baseline; BUN progressively rising here: ? steroids effect. needs diuresis. start lasix 80 iv bid today-- reassess in am. renal fxn may improve with diuresis--otherwise may need consider milrinone trial -04/06: only given one dose of lasix 80 iv yesterday due to computer and pharmacy issues with timing. wt down 1 lb, remains above recent dry wt. ongoing orthopnea : ? component from influenza--though no acute parenchymal findings on CT chest makes PNA unlikely. renal fxn stable. not collecting urine accurately, pt can't say if incr'd diuresis yest with lasix 80mg. give lasix 80 iv bid today, strict UOP assessment (d/w'd RN these instrxns) -04/07-4 weight down with lasix 80 mg IV BID, Cr stable, continue same. Will likely be able to change to po lasix tomorrow. Would change to po 80 bid with close outpt monitoring of cr/vol status. -cont metopr succ 50 bid. not on LESTER-I due to h/o hyperkalemia (hence defer entresto as well) -04/10: Weight down and stable at 192#) on Lasix 80mg IV BID. Creat stable at 2. Will change to PO Lasix today and monitor. -04/11: Weight down to 191. Transitioned to PO lasix, stable. atrial flutter: -pt in AFL on ekg -CHADS VASC 4, warrants AC for cardioembolic prophylaxis. but as per prior notes , pt is at prohibitive risks of falls/head trauma at present (very frequent falls recently including head trauma, suspected LE weakness with mechanical falls etiology) will defer AC for now. Prior plan was for pt to f/u in office to discuss fall risk/ac further but he did not come to appt (often misses appts) . -Rec'd that he have PT eval while here to assess his fall status so can decide upon detention AC before leaves. - episodes of RVR likely more frequent in setting of PNA, flu. changed coreg to toprol 50 bid and hr improved.
[2018-04-11] MEDS: CYCLOBENZAPRINE HCL 10 MG TABLET (FP) PO SCH ×2 (10:10→21:18)
[2018-04-11] MEDS: PSYLLIUM 5.85 GM PACKET PO SCH ×2 (10:10→21:18)
[2018-04-11] MEDS: PANTOPRAZOLE 40 MG TABLET (FP) PO SCH (10:10)
[2018-04-11] MEDS: ASPIRIN COATED 81 MG TABLET.EC PO SCH (10:10)
[2018-04-11] MEDS: CHOLECALCIFEROL (VITAMIN D3) 1,000 UNIT TABLET (FP) PO SCH (10:10)
[2018-04-11] MEDS: BUDESONIDE/FORMETEROL FUMARATE 80/4.5 mcg INHALER IH SCH ×2 (10:11→21:16)
[2018-04-11] MEDS ORDERED: PT OWN MED DRAWER 7, Y5N ONE ×2 (10:43→21:09)
[2018-04-11 12:32] LABS: ALBUMIN 2.7 g/dl (3.4-5.0); ALK PHOS 126 U/L (45-117); ANION GAP 9 MMOL/L (8-16); BILIRUBIN,DIRECT 0.6 mg/dL (0.0-0.2); BILIRUBIN,TOTAL 1.2 mg/dL (0.2-1); BLOOD UREA NITROGEN 79 mg/dL (7-18); CALCIUM 7.9 mg/dL (8.5-10.1); CHLORIDE 94 mmol/L (98-107); CO2 33 mmol/L (21-32); CREATININE 1.9 mg/dL (0.55-1.3); GLUCOSE,RANDOM 167 mg/dL (74-106); MAGNESIUM 2.1 mg/dL (1.8-2.4); PHOSPHOROUS 3.4 mg/dL (2.5-4.9); POTASSIUM 3.8 mmol/L (3.5-5.1); SGOT/AST 27 U/L (15-37); SGPT/ALT 177 U/L (13-61); SODIUM 136 mmol/L (136-145); TOT PROT 5.4 g/dl (6.4-8.2)
--- NOTE | 2018-04-11 12:38 | PN ---
Progress Note (short form) - Note Progress Note: Continues to feels better. Less congested cough. No CP. Intake & Output 04/08/18 04/09/18 04/10/18 04/11/18 23:59 23:59 23:59 23:59 Intake Total 920 510 550 250 Output Total 079 190 2714 825 Balance -575 Weight 191 lb 192 lb 192 lb 9.6 oz 191 lb Last Vital Signs Temp Pulse Resp BP Pulse Ox 97.6 F 74 18 153/75 98 04/11/18 10:00 04/11/18 10:00 04/11/18 10:00 04/11/18 10:00 04/11/18 09:00 Active Medications Acetylcysteine (Mucomyst 20 Oral / Inh Use Only*) 200 mg NEB RQID [facility] Last Admin: 04/11/18 12:08 Dose: Not Given Albuterol Sulfate (Ventolin 0.083% Nebulizer Soln -) 1 amp NEB Q4H PRN PRN Reason: SHORTNESS OF BREATH Last Admin: 04/11/18 08:01 Dose: 1 amp Aspirin (Ecotrin -) 81 mg PO DAILY [facility] Last Admin: 04/11/18 10:10 Dose: 81 mg Benzocaine/Menthol (Cepacol Lozenge -) 1 each MM PRN PRN PRN Reason: SORE THROAT Last Admin: 04/03/18 09:26 Dose: 1 each Budesonide/Formoterol Fumarate (Symbicort 80/4.5mcg -) 2 puff IH BID [facility] Last Admin: 04/11/18 10:11 Dose: 2 puff Cholecalciferol (Vitamin D3 -) 2,000 unit PO DAILY [facility] Last Admin: 04/11/18 10:10 Dose: 2,000 unit Cyclobenzaprine HCl (Flexeril -) 5 mg PO BID [facility] Last Admin: 04/11/18 10:10 Dose: 5 mg Docusate Sodium (Colace -) 100 mg PO TID [facility] Last Admin: 04/11/18 06:26 Dose: 100 mg Furosemide (Lasix -) 80 mg PO BID@0600,1400 [facility] Last Admin: 04/11/18 06:26 Dose: 80 mg Insulin Aspart (Novolog Vial Sliding Scale -) 1 vial SQ ACHS [facility]; Protocol Last Admin: 04/11/18 11:30 Dose: 4 units Meclizine HCl (Antivert -) 12.5 mg PO Q8H PRN PRN Reason: VERTIGO Metoprolol Succinate (Toprol Xl -) 50 mg PO BID [facility] Last Admin: 04/11/18 10:10 Dose: 50 mg Metoprolol Tartrate (Lopressor Injection -) 5 mg IVPUSH Q4H PRN PRN Reason: TACHYCARDIA Last Admin: 04/01/18 21:40 Dose: 5 mg Pantoprazole Sodium (Protonix -) 40 mg PO DAILY [facility] Last Admin: 04/11/18 10:10 Dose: 40 mg Psyllium Hydrophilic Mucilloid (Metamucil (Sugar-Free) -) 5.85 gm PO BID [facility] Last Admin: 04/11/18 10:10 Dose: 5.85 gm Senna (Senna -) 2 tab PO HS PRN PRN Reason: CONSTIPATION Gen: NAD Heart: RRR Lung: few scattered rhonchi, decreased breath sounds at the bases Abd: soft, nontender Ext: no edema Laboratory Results - last 24 hr 04/10/18 04/10/18 04/11/18 17:16 21:43 05:55 WBC 10.4 H RBC 3.71 L Hgb 11.3 L Hct 35.5 MCV 95.5 MCH 30.5 MCHC 31.9 L RDW 19.1 H Plt Count 66 L D MPV 10.3 Absolute Neuts (auto) 9.4 H Neutrophils % 90.5 H Lymphocytes % 2.5 L D Monocytes % 6.1 Eosinophils % 0.5 D Basophils % 0.4 D Sodium Potassium Chloride Carbon Dioxide Anion Gap BUN Creatinine Creat Clearance w eGFR POC Glucometer 266 320 Random Glucose Calcium Phosphorus Magnesium Total Bilirubin Direct Bilirubin AST ALT Alkaline Phosphatase Total Protein Albumin 04/11/18 04/11/18 04/11/18 05:55 06:25 11:29 WBC RBC Hgb Hct MCV MCH MCHC RDW Plt Count MPV Absolute Neuts (auto) Neutrophils % Lymphocytes % Monocytes % Eosinophils % Basophils % Sodium 136 Potassium 3.8 Chloride 94 L Carbon Dioxide 33 H Anion Gap 9 BUN 79 H Creatinine 1.9 H Creat Clearance w eGFR 36.10 POC Glucometer 182 230 Random Glucose 167 H Calcium 7.9 L Phosphorus 3.4 Magnesium 2.1 Total Bilirubin 1.2 H Direct Bilirubin 0.6 H AST 27 ALT 177 H Alkaline Phosphatase 126 H Total Protein 5.4 L Albumin 2.7 L A/P Acute on Chronic Hypoxic Respiratory Failure Influenza A Acute on Chronic Systolic Heart Failure Mitral Regurgitation Acute COPD Exacerbation +Troponins likely Demand Ischemia Atrial Flutter h/o AVR Pulmonary HTN - O2 to keep SpO2>90% - prednisone 40mg OD x 5 days additional dose - inhaled bronchodilators - lasix - monitor urine output, creatinine - rate control - DVT prophylaxis - D/C planning Dr Garner
--- NOTE | 2018-04-11 12:52 | CONSULT ---
Consult Consult Specialty:: Hematology Referred by:: Medicine Reason for Consultation:: Thrombocytopenia - History of Present Illness Chief Complaint: progressive thrombocytopenia History of Present Illness: 62 y.o. male with PMH of COPD on home O2, CHF, CAD s/p CABG, AICD, bioprosthetic AVR, MR, Atrial Fibrillation, CKD, HTN, DM and PVD admitted with worsening SOB for the prior few days. Recent admission 03/12/18-03/15/18 treated for COPD exacerbation and frequent falls with improvement of symptoms prior to discharge. Since admission has been treated for Influenza A, pneumonia , and CHF exacerbation, with course of tamiflu and zosyn, and IV diuresis. Completing a Prednisone PO taper. Normal platelet count on admission, but with gradual downward progression, with count below 100k over the past 3-4 days. Patient without acute complaints presently - wants to go home. Not aware of any prior episodes of low platelets. Review of blood work over multiple prior admission reveals no prior episodes of similar thrombocytopenia. - History Source History Provided By: Patient, Medical Record - Past Medical History Cardio/Vascular: Yes: AFIB (after CABG briefly; not on AC), CAD, CHF (systolic) , HTN, Mitral Insufficiency, Other (bioprosthetic AVR, CABG, PVD, s/p AICD, MR) Pulmonary: Yes: Bronchitis, COPD, O2 Dependent (3 L), Pneumonia Gastrointestinal: Yes: Constipation Renal/: Yes: Renal Inusuff (satge 3) Endocrine: Yes: Diabetes Mellitus - Past Surgical History Past Surgical History: Yes: AICD, CABG - Alcohol/Substance Use Hx Alcohol Use: No History of Substance Use: reports: None, Cocaine - Smoking History Smoking history: Never smoked Have you smoked in the past 12 months: No Aproximately how many cigarettes per day: 1 If you are a former smoker, when did you quit?: 06/20/16 - Social History Usual Living Arrangement: With Spouse ADL: Independent History of Recent Travel: No Home Medications - Allergies Allergies/Adverse Reactions: Allergies Allergy/AdvReac Type Severity Reaction Status Date / Time Fish Containing Products Allergy Verified 03/28/18 05:49 codeine AdvReac Intermediate Vomiting Verified 03/28/18 05:49 gabapentin AdvReac Intermediate dizzy Verified 03/28/18 05:49 - Home Medications Home Medications: Ambulatory Orders Aspirin [Aspirin EC] 81 mg PO DAILY 03/14/16 Zolpidem Tartrate [Ambien] 10 mg PO HS 06/18/15 Psyllium [Metamucil (Sugar-Free) -] 5.85 gm PO BID #1 bottle 06/02/17 Docusate Sodium [Colace -] 100 mg PO TID #90 capsule 09/22/17 Cholecalciferol (Vitamin D3) [Vitamin D3] 2,000 unit PO DAILY #30 capsule Budesonide/Formeterol Fumarate [SYMBICORT 160/4.5mcg -] 1 puff IH DAILY inhaler 12/30/17 Cyclobenzaprine HCl 5 mg PO BID #28 tablet 12/30/17 Glipizide [Glucotrol -] 5 mg PO BID 01/11/18 Carvedilol [Coreg -] 25 mg PO BID #60 tablet 02/14/18 Pantoprazole Sodium [Protonix -] 40 mg PO DAILY #14 tablet.ec 02/22/18 Tiotropium [place] [Spiriva Respimat] 2 puff IH DAILY #1 inhaler 02/22/18 predniSONE [Deltasone -] 5 mg PO ASDIR #78 tab 02/22/18 Atorvastatin Ca [Lipitor] 20 mg PO HS 02/23/18 Furosemide [Lasix -] 80 mg PO DAILY #60 tablet 03/15/18 Insulin (Novolog) [Novolog Vial] See Protocol SQ BID PRN 03/23/18 Lactulose [Cephulac -] 10 - 20 gm PO DAILY PRN #1 bottle 03/23/18 Oxycodone HCl/Acetaminophen [Percocet 10-325 mg Tablet] 1 each PO QID #120 tablet MDD 4 03/23/18 Family Disease History - Family Disease History Family Disease History: Heart Disease: Father (etoh), Mother (, cva), Other: Brother (alive - Ramírez - hx etoh), Sister (five - alive - no medical problems), Son (two adults - no problems) Physical Exam Vital Signs: Vital Signs Temperature 97.6 F 04/11/18 10:00 Pulse Rate 74 04/11/18 10:00 Respiratory Rate 18 04/11/18 10:00 Blood Pressure 153/75 04/11/18 10:00 O2 Sat by Pulse Oximetry (%) 98 04/11/18 09:00 Constitutional: Yes: Well Nourished, Mild Distress Eyes: Yes: Conjunctiva Clear, EOM Intact HENT: Yes: Normocephalic Neck: Yes: Trachea Midline Cardiovascular: Yes: Tachycardia, S1, S2. No: Gallop, Murmur, Rub Respiratory: Yes: Regular, Diminished Gastrointestinal: Yes: Normal Bowel Sounds, Soft, Abdomen, Obese. No: Splenomegaly, Tenderness Musculoskeletal: No: Joint Swelling Edema: Yes Edema: LLE: 2+ (LLE > RLE), RLE: 2+ Labs: CBC, BMP 04/11/18 05:55 04/11/18 05:55 Assessment/Plan Slowly progressive mild thrombocytopenia, in a patient with multiple medical comorbidities, currently recovering from acute illness (Influenza, pneumonia, CHF exacerbation). Unclear why platelets are trending down now, when by all other accounts patient is clinically improving. Possibly drug related - would consider alternate GI prophylaxis to a PPI. Off all Abics at this time. Noted to have congestive hepatopathy - but yesterday's US reports a normal sized spleen. Will review peripheral smear. Observation only for now, with expectation that thrombocytopenia is secondary to his recent acute episode, and will recover spontaneously. If downward trend continues then will need to consider a primary hematological process, but index of suspicion is low at this time. Asymmetrical swelling lower extremities - consider doppler US - r/o DVT. Will follow with you.
--- NOTE | 2018-04-11 14:59 | PN ---
Physical Exam: SUBJECTIVE: Patient seen and examined, eager to go home, breathing improved. no bleeding or new concerns OBJECTIVE: Vital Signs Period Temp Pulse Resp BP Sys/El Pulse Ox Last 24 Hr 97.3 F-97.8 F 62-74 18-20 131-159/75-91 98-98 GENERAL: The patient is awake, alert, and fully oriented, in no acute distress. HEAD: Normal with no signs of trauma. EYES: PERRL, extraocular movements intact, sclera anicteric, conjunctiva clear. No ptosis. ENT: Ears normal, nares patent, oropharynx clear without exudates, moist mucous membranes. NECK: Trachea midline, full range of motion, supple. LUNGS: Breath sounds equal, clear to auscultation bilaterally, no wheezes, no crackles, no accessory muscle use. HEART: Regular rate and rhythm, S1, S2 without murmur, rub or gallop. ABDOMEN: Soft, nontender, nondistended, normoactive bowel sounds, no guarding, no rebound, no hepatosplenomegaly, no masses. EXTREMITIES: 2+ pulses, warm, well-perfused, no edema. NEUROLOGICAL: Cranial nerves II through XII grossly intact. Normal speech, gait not observed. PSYCH: Normal mood, normal affect. SKIN: Warm, dry, normal turgor, no rashes or lesions noted Laboratory Results - last 24 hr 04/10/18 04/10/18 04/11/18 17:16 21:43 05:55 WBC 10.4 H RBC 3.71 L Hgb 11.3 L Hct 35.5 MCV 95.5 MCH 30.5 MCHC 31.9 L RDW 19.1 H Plt Count 66 L D MPV 10.3 Absolute Neuts (auto) 9.4 H Neutrophils % 90.5 H Lymphocytes % 2.5 L D Monocytes % 6.1 Eosinophils % 0.5 D Basophils % 0.4 D Sodium Potassium Chloride Carbon Dioxide Anion Gap BUN Creatinine Creat Clearance w eGFR POC Glucometer 266 320 Random Glucose Calcium Phosphorus Magnesium Total Bilirubin Direct Bilirubin AST ALT Alkaline Phosphatase Total Protein Albumin 04/11/18 04/11/18 04/11/18 05:55 06:25 11:29 WBC RBC Hgb Hct MCV MCH MCHC RDW Plt Count MPV Absolute Neuts (auto) Neutrophils % Lymphocytes % Monocytes % Eosinophils % Basophils % Sodium 136 Potassium 3.8 Chloride 94 L Carbon Dioxide 33 H Anion Gap 9 BUN 79 H Creatinine 1.9 H Creat Clearance w eGFR 36.10 POC Glucometer 182 230 Random Glucose 167 H Calcium 7.9 L Phosphorus 3.4 Magnesium 2.1 Total Bilirubin 1.2 H Direct Bilirubin 0.6 H AST 27 ALT 177 H Alkaline Phosphatase 126 H Total Protein 5.4 L Albumin 2.7 L Active Medications Generic Name Dose Route Start Last Admin Trade Name Freq PRN Reason Stop Dose Admin Acetylcysteine 200 mg 04/10/18 12:00 04/11/18 12:08 Mucomyst 20 Oral / Inh Use Only* NEB Not Given RQID [facility] Albuterol Sulfate 1 amp 04/10/18 09:12 04/11/18 08:01 Ventolin 0.083% Nebulizer Soln - NEB 1 amp Q4H PRN Administration SHORTNESS OF BREATH Aspirin 81 mg 03/29/18 10:00 04/11/18 10:10 Ecotrin - PO 81 mg DAILY [facility] Administration Benzocaine/Menthol 1 each 04/03/18 08:00 04/03/18 09:26 Cepacol Lozenge - MM 1 each PRN PRN Administration SORE THROAT Budesonide/Formoterol Fumarate 2 puff 04/02/18 22:00 04/11/18 10:11 Symbicort 80/4.5mcg - IH 2 puff BID [facility] Administration Cholecalciferol 2,000 unit 03/29/18 10:00 04/11/18 10:10 Vitamin D3 - PO 2,000 unit DAILY [facility] Administration Cyclobenzaprine HCl 5 mg 03/28/18 22:00 04/11/18 10:10 Flexeril - PO 5 mg BID [facility] Administration Docusate Sodium 100 mg 03/28/18 14:00 04/11/18 06:26 Colace - PO 100 mg TID [facility] Administration Furosemide 80 mg 04/10/18 14:00 04/11/18 06:26 Lasix - PO 80 mg BID@0600,1400 [facility] Administration Insulin Aspart 1 vial 03/28/18 12:23 04/11/18 11:30 Novolog Vial Sliding Scale - SQ 4 units ACHS [facility] Administration Protocol Meclizine HCl 12.5 mg 04/08/18 16:48 Antivert - PO Q8H PRN VERTIGO Metoprolol Succinate 50 mg 04/02/18 22:00 04/11/18 10:10 Toprol Xl - PO 50 mg BID [facility] Administration Metoprolol Tartrate 5 mg 03/31/18 11:02 04/01/18 21:40 Lopressor Injection - IVPUSH 5 mg Q4H PRN Administration TACHYCARDIA Psyllium Hydrophilic Mucilloid 5.85 gm 03/28/18 22:00 04/11/18 10:10 Metamucil (Sugar-Free) - PO 5.85 gm BID [facility] Administration Ranitidine HCl 150 mg 04/11/18 22:00 Zantac - PO HS [facility]U Senna 2 tab 04/02/18 09:45 Senna - PO HS PRN CONSTIPATION ASSESSMENT/PLAN: 62 year old male with significant past medical history of copd, cabgx3 2012, bio avr 2012, pad s/p b/l sfa occlusions, syst chf s/p medtronic icd, htn, hld, a-tach, CKD (baseline cr 2.2-2.4), admitted with shortness of breath. -Thrombocytopenia, ?in the setting of sepsis/antibiotics/hepatic dysfunction, low suspicion of HIT -Acute hypoxic respiratory failure -Acute influenza A illness -Acute LLL HCAP with loculated pleural effusion -Acute on chronic systolic heart failure exacerbation -Abnormal LFTs, suspect passive hepatic congestion -Hepatocellular disease, ?Passive hepatic congestion -Fall on 04/07/2018 -Elevated troponin, suspect demand type II NSTEMI from above -Cardiomyopathy (EF 30-35%) s/p medtronic ICD -Atrial fibrillation/Flutter not on AC due to risk of falls -HTN -HLD -Bioprosthetic AVR 2012 -CABG x 3 -PAD s/p bilateral SFA occlusion -CKD (baseline cr 2.2-2.4) -Anemia of chronic disease Plan: Platelets worse, hematology input noted. Spleen US with no concerns. Dc/ Protonix. start ranitidine. HIT panel sent, will follow up. Duplex LE. Mental status improved, trauma w/u 04/07/18 neg post fall. LFTs improved, no abdominal symptoms, hep panel neg. Abdominal US noted. GI input noted. Hold statin for now. Unable to get MRCP given ICD, improved, suspect is from passive hepatic congestion, monitor. s/p tamiflu and zosyn, completed treatment. Wheezy today, change prednisone 30 mg daily. Add mucomyst QID with nebs. Lasix 80 mg PO BID, Strict I/Os, daily weights, renal function stable. 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 Cardiology/pulmonary/nephrology input appreciated. Neurology input noted. Ammonia levels noted. Lactulose prn. Metoprolol/ASA Bowel regimen DVTPPx heparin PT eval noted dispo dc planning on hold given thrombocytopenia. Plan discussed with patient and nursing in detail, all questions answered. Visit type - Emergency Visit Emergency Visit: Yes ED Registration Date: 03/28/18 Care time: The patient presented to the Emergency Department on the above date and was hospitalized for further evaluation of their emergent condition. - New Patient This patient is new to me today: No - Critical Care Critical Care patient: No - Discharge Referral Referred to [facility] No
[2018-04-11] MEDS: RANITIDINE HCL 150 MG TABLET (FP) PO SCH (21:18)
--- NOTE | 2018-04-11 21:20 | PN ---
Progress Note (short form) - Note Progress Note: renal function same uneventful day Problems 1. CKD 2. proteinuria 3. CAD 4. CHF 5. COPD 6. DM 7. HTN 8. azotemia/fior 9. anemia Current Medications Acetylcysteine (Mucomyst 20 Oral / Inh Use Only*) 200 mg NEB RQID [facility] Last Admin: 04/11/18 19:42 Dose: Not Given Albuterol Sulfate (Ventolin 0.083% Nebulizer Soln -) 1 amp NEB Q4H PRN PRN Reason: SHORTNESS OF BREATH Last Admin: 04/11/18 08:01 Dose: 1 amp Aspirin (Ecotrin -) 81 mg PO DAILY [facility] Last Admin: 04/11/18 10:10 Dose: 81 mg Benzocaine/Menthol (Cepacol Lozenge -) 1 each MM PRN PRN PRN Reason: SORE THROAT Last Admin: 04/03/18 09:26 Dose: 1 each Budesonide/Formoterol Fumarate (Symbicort 80/4.5mcg -) 2 puff IH BID [facility] Last Admin: 04/11/18 10:11 Dose: 2 puff Cholecalciferol (Vitamin D3 -) 2,000 unit PO DAILY [facility] Last Admin: 04/11/18 10:10 Dose: 2,000 unit Cyclobenzaprine HCl (Flexeril -) 5 mg PO BID [facility] Last Admin: 04/11/18 10:10 Dose: 5 mg Docusate Sodium (Colace -) 100 mg PO TID [facility] Last Admin: 04/11/18 15:16 Dose: 100 mg Furosemide (Lasix -) 80 mg PO BID@0600,1400 [facility] Last Admin: 04/11/18 15:16 Dose: 80 mg Insulin Aspart (Novolog Vial Sliding Scale -) 1 vial SQ ACHS [facility]; Protocol Last Admin: 04/11/18 16:48 Dose: 2 units Meclizine HCl (Antivert -) 12.5 mg PO Q8H PRN PRN Reason: VERTIGO Metoprolol Succinate (Toprol Xl -) 50 mg PO BID [facility] Last Admin: 04/11/18 10:10 Dose: 50 mg Metoprolol Tartrate (Lopressor Injection -) 5 mg IVPUSH Q4H PRN PRN Reason: TACHYCARDIA Last Admin: 04/01/18 21:40 Dose: 5 mg Psyllium Hydrophilic Mucilloid (Metamucil (Sugar-Free) -) 5.85 gm PO BID [facility] Last Admin: 04/11/18 10:10 Dose: 5.85 gm Ranitidine HCl (Zantac -) 150 mg PO HS [facility] Senna (Senna -) 2 tab PO HS PRN PRN Reason: CONSTIPATION Zolpidem Tartrate (Ambien -) 5 mg PO HS ONE Stop: 04/11/18 22:01 Last Vital Signs Temp Pulse Resp BP Pulse Ox 97.4 F L 103 H 20 141/97 94 L 04/11/18 13:33 04/11/18 15:31 04/11/18 20:36 04/11/18 13:33 04/11/18 20:36 lungs clear heart reg s1s2 Abd soft nontender ext no edema CBC, BMP 04/11/18 05:55 04/11/18 05:55 IMP 1. CKD- renal function stable 2. proteinuria 3. CAD 4. CHF 5. COPD 6. DM 7. HTN 8. azotemia/fior 9. anemia Plan-
[2018-04-11] MEDS ORDERED: ZOLPIDEM TARTRATE 5 MG TABLET PO ONE (22:00)
[2018-04-12] MEDS: FUROSEMIDE 40 MG TABLET (FP) PO SCH ×2 (05:30→13:33)
[2018-04-12] MEDS: DOCUSATE SODIUM 100 MG CAPSULE (FP) PO SCH ×3 (05:30→22:35)
[2018-04-12] MEDS: INSULIN SLIDING SCALE (NOVOLOG) 1 VIAL SQ SCH ×4 (06:03→22:35)
[2018-04-12 06:37] LABS: BASO % 0.5 % (0-2.0); EOS % 0.8 % (0-4.5); HEMATOCRIT 35.2 % (35.4-49); HEMOGLOBIN 12.1 GM/dL (11.7-16.9); LYMPH % 2.7 % (8-40); MCH 32.3 pg (25.7-33.7); MCHC 34.3 g/dl (32.0-35.9); MEAN CELL VOLUME 94.3 fl (80-96); MEAN PLT VOLUME 10.3 fl (7.5-11.1); MONO % 9.1 % (3.8-10.2); NEUT % 86.9 % (42.8-82.8); PLATELET COUNT 78 K/MM3 (134-434); RBC 3.73 M/mm3 (4.00-5.60); RDW 18.5 % (11.9-15.9); WHITE BLOOD COUNT 11.6 K/mm3 (4.0-10.0)
--- NOTE | 2018-04-12 06:59 | RAPID ---
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 Attended to pt with nursing staff at the bed already. Pt was found fallen underneath his portable shelf. He states that he wanted to go to the bathroom and decided to get up to do so. Pt had a previous fall for similar reason. Pt reported to have multiple instances to be re-educated about using the call cazares and to boris for help when he wants to get out of bed. Brief PE: VS: 152/92 HR: 88 GEN: NAD, sitting up on floor, awake, alert HEENT: NC/AT, old scar noted on superior porition of head. Structure stable without any focal tenderness. MMM, MARIFER, sclera anicteric Neck: Soft, no C-spine point tenderness, structurally intact LUNGS: B/l rales noted bibasillarly, no wheezes. On RA CARDIAC: RRR no murmurs, r, g ABD: Soft, NT/ND, + BS, no guarding MSK: ROM of peripheral limbs intact. No bony deformations NEURO: CN II-XII intact. Strength symmetrically intact. Sensation intact b/l. Normal speech EXT: Distal pulses 2+ throughout, warm A/P: Unwitness fall --CT noncontrast ordered per protocol --Pt not on anticoagulation --Re-educated pt about using call cazares and nursing staff to help --Continue vigorous PT Rest per primary mgmt Randy Horn, DO - IM PGY-2 Labs: CBC, BMP 04/12/18 06:00
[2018-04-12] MEDS: ACETYLCYSTEINE 20% 200MG/ML 4 ML VIAL *FOR ORAL / INH USE ONLY NEB SCH ×4 (07:25→19:53)
[2018-04-12] MEDS ORDERED: PT OWN MED DRAWER 7, Y5N ONE ×4 (07:44→22:43)
[2018-04-12 07:46] LABS: ALBUMIN 2.8 g/dl (3.4-5.0); ALK PHOS 112 U/L (45-117); ANION GAP 9 MMOL/L (8-16); BILIRUBIN,DIRECT 0.6 mg/dL (0.0-0.2); BILIRUBIN,TOTAL 1.1 mg/dL (0.2-1); BLOOD UREA NITROGEN 74 mg/dL (7-18); CALCIUM 7.8 mg/dL (8.5-10.1); CHLORIDE 92 mmol/L (98-107); CO2 32 mmol/L (21-32); CREATININE 1.8 mg/dL (0.55-1.3); GLUCOSE,RANDOM 118 mg/dL (74-106); MAGNESIUM 2.2 mg/dL (1.8-2.4); PHOSPHOROUS 2.7 mg/dL (2.5-4.9); POTASSIUM 3.8 mmol/L (3.5-5.1); SGOT/AST 22 U/L (15-37); SGPT/ALT 142 U/L (13-61); SODIUM 133 mmol/L (136-145); TOT PROT 5.6 g/dl (6.4-8.2)
[2018-04-12] MEDS: BUDESONIDE/FORMETEROL FUMARATE 80/4.5 mcg INHALER IH SCH ×2 (09:00→22:39)
[2018-04-12] MEDS: CYCLOBENZAPRINE HCL 10 MG TABLET (FP) PO SCH ×2 (09:00→22:34)
[2018-04-12] MEDS: CHOLECALCIFEROL (VITAMIN D3) 1,000 UNIT TABLET (FP) PO SCH (09:00)
[2018-04-12] MEDS: ASPIRIN COATED 81 MG TABLET.EC PO SCH (09:00)
[2018-04-12] MEDS: PSYLLIUM 5.85 GM PACKET PO SCH ×2 (09:01→22:38)
[2018-04-12] MEDS: BENZOCAINE/MENTH/CETYLPYRD CL 1 EACH LOZENGE MM PRN (09:01)
--- NOTE | 2018-04-12 09:13 | PN ---
Progress Note (short form) - Note Progress Note: Neurology HISTORY OF PRESENT ILLNESS: 62 year old male was brought in to the ED by family members due to shortness of breath. As per the patient, he had been having shortness of breath since a couple of days prior to admission, even at rest, worse on exertion. Denied orthopnea, PND, chest pain, palpitation, cough, fever, chills, rigors or sweating. Per notes, patient was complaining of chest pain, was hypoxic to 92 % @ 3L then was placed in NRB with improvement in saturation. Labs were significant for leukocytosis of 13.1; Lactic acid of 2.1. Influenza A positive, CXR showed Left infiltrate. Tamiflu was given, has been treated for PNA and respiratory compromise. Consulted for AMS. Initial CT head without acute changes. Ammonia level normal. Over weekend, psych consulted as patient reportedly expressed suicidal ideation, notes reviewed. Overnight, unwitnessed fall, completed CT head and reported L thalamic infarct, age indeterminate. Patient reports not able to tolerate MRI, also with PPM. Will order repeat CT head to re-eval. Is on ASA 81mg. Active Medications Aspirin (Ecotrin -) 81 mg PO DAILY [facility] Last Admin: 04/08/18 10:40 Dose: 81 mg Benzocaine/Menthol (Cepacol Lozenge -) 1 each MM PRN PRN PRN Reason: SORE THROAT Last Admin: 04/03/18 09:26 Dose: 1 each Budesonide/Formoterol Fumarate (Symbicort 80/4.5mcg -) 2 puff IH BID [facility] Last Admin: 04/08/18 21:14 Dose: 2 puff Cholecalciferol (Vitamin D3 -) 2,000 unit PO DAILY [facility] Last Admin: 04/08/18 10:40 Dose: 2,000 unit Cyclobenzaprine HCl (Flexeril -) 5 mg PO BID [facility] Last Admin: 04/08/18 21:13 Dose: 5 mg Docusate Sodium (Colace -) 100 mg PO TID [facility] Last Admin: 04/09/18 05:42 Dose: 100 mg Furosemide (Lasix Injection -) 80 mg IVPB BID@0600,1400 [facility] Last Admin: 04/09/18 05:42 Dose: 80 mg Heparin Sodium (Porcine) (Heparin -) 5,000 unit SQ TID [facility] Last Admin: 04/09/18 05:43 Dose: 5,000 unit Insulin Aspart (Novolog Vial Sliding Scale -) 1 vial SQ ACHS [facility]; Protocol Last Admin: 04/09/18 06:45 Dose: 2 units Ipratropium [place] (Atrovent 0.02% Nebulizer -) 1 amp NEB Q6H PRN PRN Reason: DYSPEPSIA Stop: 04/09/18 12:06 Last Admin: 04/08/18 22:44 Dose: 1 amp Meclizine HCl (Antivert -) 12.5 mg PO Q8H PRN PRN Reason: VERTIGO Metoprolol Succinate (Toprol Xl -) 50 mg PO BID [facility] Last Admin: 04/08/18 21:14 Dose: 50 mg Metoprolol Tartrate (Lopressor Injection -) 5 mg IVPUSH Q4H PRN PRN Reason: TACHYCARDIA Last Admin: 04/01/18 21:40 Dose: 5 mg Oxycodone HCl (Roxicodone -) 10 mg PO Q6H PRN PRN Reason: PAIN LEVEL 6-10 Last Admin: 04/08/18 21:17 Dose: 10 mg Pantoprazole Sodium (Protonix -) 40 mg PO DAILY [facility] Last Admin: 04/08/18 10:40 Dose: 40 mg Prednisone (Deltasone -) 10 mg PO DAILY [facility] Stop: 04/07/18 10:01 Psyllium Hydrophilic Mucilloid (Metamucil (Sugar-Free) -) 5.85 gm PO BID [facility] Last Admin: 04/08/18 21:14 Dose: Not Given Senna (Senna -) 2 tab PO HS PRN PRN Reason: CONSTIPATION PHYSICAL EXAMINATION Vital Signs Period Temp Pulse Resp BP Sys/El Pulse Ox Last 24 Hr 97.4 F-97.7 F 65-103 18-20 141-153/75-97 94-94 GENERAL: Middle aged obese male, lying in bed, Awake, alert, and fully oriented , in mild respiratory distress. HEAD: Normal with no signs of trauma. EYES:EOM intact, no pallor or icterus. EARS, NOSE, THROAT: Ears normal, drt mucous membranes. NECK:Supple. LUNGS: B/L Breath sounds equal, bibasilar crackles, No accessory muscle use. HEART: Irregularly irregular, rate, normal S1 and S2 with systolic murmur. ABDOMEN: Soft, nontender, no organomegaly. MUSCULOSKELETAL: Normal range of motion at all joints. No bony deformities or tenderness. No CVA tenderness. UPPER EXTREMITIES: 2+ pulses, warm, well-perfused. No cyanosis. No clubbing. No peripheral edema. LOWER EXTREMITIES: 2+ pulses, warm, well-perfused. No calf tenderness. Pitting edema b/l. NEUROLOGICAL: No facial droop. Normal speech. Gait not observed. PSYCHIATRIC: Cooperative. Good eye contact. Appropriate mood and affect. SKIN: Warm, dry, normal turgor, no rashes or lesions noted, normal capillary refill. CBCD WBC 11.6 K/mm3 (4.0-10.0) H 04/12/18 06:00 RBC 3.73 M/mm3 (4.00-5.60) L 04/12/18 06:00 Hgb 12.1 GM/dL (11.7-16.9) 04/12/18 06:00 Hct 35.2 % (35.4-49) L 04/12/18 06:00 MCV 94.3 fl (80-96) 04/12/18 06:00 MCHC 34.3 g/dl (32.0-35.9) 04/12/18 06:00 RDW 18.5 % (11.9-15.9) H 04/12/18 06:00 Plt Count 78 K/MM3 (134-434) L 04/12/18 06:00 MPV 10.3 fl (7.5-11.1) 04/12/18 06:00 CMP Sodium 133 mmol/L (136-145) L 04/12/18 06:00 Potassium 3.8 mmol/L (3.5-5.1) 04/12/18 06:00 Chloride 92 mmol/L (98-107) L 04/12/18 06:00 Carbon Dioxide 32 mmol/L (21-32) 04/12/18 06:00 Anion Gap 9 MMOL/L (8-16) 04/12/18 06:00 BUN 74 mg/dL (7-18) H 04/12/18 06:00 Creatinine 1.8 mg/dL (0.55-1.3) H 04/12/18 06:00 Creat Clearance w eGFR 38.42 (>60) 01/07/19 06:00 Random Glucose 118 mg/dL (74-106) H 04/12/18 06:00 Calcium 7.8 mg/dL (8.5-10.1) L 04/12/18 06:00 Total Bilirubin 1.1 mg/dL (0.2-1) H 04/12/18 06:00 AST 22 U/L (15-37) 04/12/18 06:00 ALT 142 U/L (13-61) H 04/12/18 06:00 Alkaline Phosphatase 112 U/L (45-117) 04/12/18 06:00 Total Protein 5.6 g/dl (6.4-8.2) L 04/12/18 06:00 Albumin 2.8 g/dl (3.4-5.0) L 04/12/18 06:00 CARDIAC ENZYMES Creatine Kinase 36 IU/L (26-308) 03/28/18 07:15 Troponin I 0.05 ng/ml (0.00-0.05) 03/31/18 06:10 Imaging as above ASSESSMENT/PLAN: 62 year old male was brought in to the ED by family members due to shortness of breath. As per the patient, he had been having shortness of breath since a couple of days prior to admission, even at rest, worse on exertion. Denied orthopnea, PND, chest pain, palpitation, cough, fever, chills, rigors or sweating. Per notes, patient was complaining of chest pain, was hypoxic to 92 % @ 3L then was placed in NRB with improvement in saturation. Labs were significant for leukocytosis of 13.1; Lactic acid of 2.1. Influenza A positive, CXR showed Left infiltrate. Tamiflu was given, has been treated for PNA and respiratory compromise. onsulted for AMS. Initial CT head without acute changes. Ammonia level normal. Over weekend, psych consulted as patient reportedly expressed suicidal ideation, notes reviewed. Overnight, unwitnessed fall, completed CT head and reported L thalamic infarct, age indeterminate. Patient reports not able to tolerate MRI, also with PPM. Will order repeat CT head to re-eval. Is on ASA 81mg . On meclezine for dizzyness. Maintain hydration , avoid sudden head movements. Continue medical optimization. Monitor mood and any further expression of sucidal ideation.
--- NOTE | 2018-04-12 09:16 | PN ---
Progress Note, Physician Chief Complaint: sob History of Present Illness: sob resolved, no more orthopnea denies cp, palpit ex cigs - Current Medication List Current Medications: Active Medications Acetylcysteine (Mucomyst 20 Oral / Inh Use Only*) 200 mg NEB RQID [facility] Last Admin: 04/12/18 07:25 Dose: Not Given Albuterol Sulfate (Ventolin 0.083% Nebulizer Soln -) 1 amp NEB Q4H PRN PRN Reason: SHORTNESS OF BREATH Last Admin: 04/11/18 08:01 Dose: 1 amp Aspirin (Ecotrin -) 81 mg PO DAILY [facility] Last Admin: 04/12/18 09:00 Dose: 81 mg Benzocaine/Menthol (Cepacol Lozenge -) 1 each MM PRN PRN PRN Reason: SORE THROAT Last Admin: 04/12/18 09:01 Dose: 1 each Budesonide/Formoterol Fumarate (Symbicort 80/4.5mcg -) 2 puff IH BID [facility] Last Admin: 04/12/18 09:00 Dose: 2 puff Cholecalciferol (Vitamin D3 -) 2,000 unit PO DAILY [facility] Last Admin: 04/12/18 09:00 Dose: 2,000 unit Cyclobenzaprine HCl (Flexeril -) 5 mg PO BID [facility] Last Admin: 04/12/18 09:00 Dose: 5 mg Docusate Sodium (Colace -) 100 mg PO TID [facility] Last Admin: 04/12/18 05:30 Dose: 100 mg Furosemide (Lasix -) 80 mg PO BID@0600,1400 [facility] Last Admin: 04/12/18 05:30 Dose: 80 mg Insulin Aspart (Novolog Vial Sliding Scale -) 1 vial SQ [facility]; Protocol Last Admin: 04/12/18 06:03 Dose: Not Given Meclizine HCl (Antivert -) 12.5 mg PO Q8H PRN PRN Reason: VERTIGO Metoprolol Succinate (Toprol Xl -) 50 mg PO BID [facility] Last Admin: 04/12/18 09:00 Dose: 50 mg Metoprolol Tartrate (Lopressor Injection -) 5 mg IVPUSH Q4H PRN PRN Reason: TACHYCARDIA Last Admin: 04/01/18 21:40 Dose: 5 mg Psyllium Hydrophilic Mucilloid (Metamucil (Sugar-Free) -) 5.85 gm PO BID [facility] Last Admin: 04/12/18 09:01 Dose: 5.85 gm Ranitidine HCl (Zantac -) 150 mg PO HS [facility] Last Admin: 04/11/18 21:18 Dose: 150 mg Senna (Senna -) 2 tab PO HS PRN PRN Reason: CONSTIPATION - Objective Vital Signs: Vital Signs Temperature 9.9 F L 04/12/18 08:59 Pulse Rate 65 04/12/18 08:59 Respiratory Rate 16 04/12/18 08:59 Blood Pressure 165/91 04/12/18 08:59 O2 Sat by Pulse Oximetry (%) 94 L 04/11/18 20:36 Constitutional: Yes: No Distress, Calm Eyes: No: Sclera Icterus HENT: No: Nasal Congestion Cardiovascular: Yes: Pulse Irregular, S1, S2, Other (PMI non diplaced). No: JVD , Gallop, Murmur Respiratory: Yes: CTA Bilaterally, Wheezes (faint R base). No: Accessory Muscle Use, Rales Gastrointestinal: Yes: Normal Bowel Sounds, Soft. No: Tenderness Musculoskeletal: Yes: Other (No kyphosis) Extremities: No: Cold, Cyanosis Edema: No Integumentary: No: Jaundice Neurological: Yes: Alert, Oriented (x3) Psychiatric: No: Agitated Labs: CBC, BMP 04/12/18 06:00 04/12/18 06:00 INR, PTT INR 1.28 (0.83-1.09) H 04/09/18 06:30 Assessment/Plan echo 06/2016: sev dec lvef, global hk, rv tds, trinity, mod-sev mr, mod tr, rvsp 50- 60 echo 06/2015: mild lve, mod-sev dec lvef, mod lae, nl rv size, mild dec rv fcn, mild-mod mr, mild tr, nl avr fcn, rvsp 30-40 mibi 06/2016 (pers): non-diagnostic STs; large area inferior/inferolateral/ lateral scar; no ischemia; severe LV cavity dilation; global HK with akinesis of inferior/inferolat/lateral allan; EF 16% mibi 09/2014: large inf scar, mod anteroapical ischemia, lvef 25% Carotids 03/23: nonob plq ICA and CCA (high grade ECA) tele: AFL, Vs/Vice [employer] Safety a/p: 62 m hx copd, cabgx3 2012, bio avr 2012, pad s/p b/l sfa occlusions, syst chf s/p medtronic icd, htn, hld, a-tach, here with back pain, sob. pna, flu: -cont abx per ID acute on chronic systolic CHF exacerbation: -past dry wt here 187 lbs (recent discharge) -here with mild chf exacerbation likely worsened by flu/pna -03/30 was on lasix 80 po qd at home, weight stable, stable Cr, feels the same - increased lasix to 40 mg IV BID -03/31 Cr rising, change to lasix 40 mg IV daily -04/01: cont same iv lasix -04/02-: bun/cr rising, cxr shows less congestion, stopped iv lasix, monitoring cr trend before resuming po lasix -04/04: cr slightly better today, continue to hold lasix -04/05: remains signif above dry wt with no change for several days (199-200). JVD persists (note: this resolved during recent admit when well-diuresed). incr sob/orthopnea. creat improved vs peak, close to his baseline; BUN progressively rising here: ? steroids effect. needs diuresis. start lasix 80 iv bid today-- reassess in am. renal fxn may improve with diuresis--otherwise may need consider milrinone trial -04/06: only given one dose of lasix 80 iv yesterday due to computer and pharmacy issues with timing. wt down 1 lb, remains above recent dry wt. ongoing orthopnea : ? component from influenza--though no acute parenchymal findings on CT chest makes PNA unlikely. renal fxn stable. not collecting urine accurately, pt can't say if incr'd diuresis yest with lasix 80mg. give lasix 80 iv bid today, strict UOP assessment (d/w'd RN these instrxns) -04/07-4 weight down with lasix 80 mg IV BID, Cr stable, continue same. Will likely be able to change to po lasix tomorrow. Would change to po 80 bid with close outpt monitoring of cr/vol status. -04/10: Weight down and stable at 192# on Lasix 80mg IV BID. Creat stable at 2. Will change to PO Lasix 80 bid. -04/11: Weight down to 191. same plan -04/12: wt 190. appears euvolemic, jvd resolved. renal fxn continues to improve. cont lasix 80 bid -cont metopr succ 50 bid. not on LESTER-I due to h/o hyperkalemia (hence defer entresto as well) CVA: -age indeterminate L thalamic stroke on CT here, ? if causing sx's (e.g. balance /falls???) -neuro following -pt warrants AC to prevent cardioembolic stroke but is currently at prohibitive falls risk/head injury risk (fell frequently at home recently, twice here). CHADS VASC = 6. -Watchman device would be a reasonable consideration to obviate need for lifelong AC here, however he will need 6 weeks of AC post-procedure. pt will be at continuing hi falls risk during that time and definitely could have head injury. -d/w'd EP Watchman team at [place], agrees transfer is reasonable to further assess pt and discuss R/B with him. d/w'd pt the competing risks of fall with head injury (very high) vs embolic CVA (high), vs watchman. he wishes to d/w sister and consider further today. he strongly wishes to go home. -for now, will defer heparin until pt makes decision and plan is clarified ( expect a decision in next few hours) -cont aspirin -monitor low PLT trend as well -was on atorva 20, hi AST/LT on DOA here so med held. LFTs had been stable on this med long time, hence likely was other etiology (? congestive). hi intensity statin indicated for sec prevention of ischemic stroke. -start atorva 40--trend LFTs thrombocytopenia: -trending down here -per hospitalist atrial flutter: -pt in [facility] on ekg -CHADS VASC 6--AC consideration as above - episodes of RVR likely more frequent in setting of PNA, flu. changed coreg to toprol 50 bid and hr improved. CKD: -baseline creat ranges 2.0-2.5 -renal fxn improving with diuresis cad/hx of CABG 2012 -no recent angina/ischemia -trop chronically in intermediate range, no change in current values, trend is flat, ck nl, not c/w acs -cont prior cad med regimen: asa, statin, bb, ccb bio avr: -nl fcn on echo 06/20 mitral regurgitation: -likely functional MR, mild-mod on echo 06/19, then "mod-severe" when here 06/20 with suspected acute chf and pulm pressures up (though at risk for overestimation of MR severity on that echo report) -valve morphology not described (tethered leaflets?) -no murmur on exam -reassess MR severity on echo as outpt pad: -stable, no claudication, cont current cardiac meds s/p icd: -no shocks on check earlier this month -routine outpt monitoring htn: -bp stable -cont home meds DM: -per hospitalist5
--- NOTE | 2018-04-12 09:56 | PN ---
Teaching Attending Note Name of Resident: Paula Yeung ATTENDING PHYSICIAN STATEMENT I saw and evaluated the patient. I reviewed the resident's note and discussed the case with the resident. I agree with the resident's findings and plan as documented with exceptions below. SUBJECTIVE: Patient seen and examined, reports tried to go to the bathroom and did not want to wait, fell, able to recall fall, denies any headache, weakness, bleeding. Breathing improved, no complaints otherwise. Frustrated about being in the hospital. OBJECTIVE: Vital Signs Period Temp Pulse Resp BP Sys/El Pulse Ox Last 24 Hr 9.9 F-97.7 F 65-103 16-20 141-165/76-97 94-94 Intake & Output 04/09/18 04/10/18 04/11/18 04/12/18 23:59 23:59 23:59 23:59 Intake Total 510 550 600 120 Output Total 600 1600 1125 500 Balance -90 -1050 -525 -380 Weight 192 lb 192 lb 9.6 oz 191 lb 190 lb 3.2 oz General: sitting in bed in no acute distress Chest: decreased breath sounds all over, occasional wheezing, no rales appreciated Abdomen;Soft, obese, NT Extremities: 1+ pedal edema neuro: AAOX3, facial symmetry, power 5/5, further exam limited as patient upset currently Home Medications Medication Instructions Recorded Aspirin [Aspirin EC] 81 mg PO DAILY 06/18/15 Zolpidem Tartrate [Ambien] 10 mg PO HS 06/18/15 Psyllium [Metamucil (Sugar-Free) -] 5.85 gm PO BID #1 bottle 06/02/17 Docusate Sodium [Colace -] 100 mg PO TID #90 capsule 09/22/17 Cholecalciferol (Vitamin D3) 2,000 unit PO DAILY #30 capsule 12/25/17 [Vitamin D3] Budesonide/Formeterol Fumarate 1 puff IH DAILY inhaler 12/30/17 [SYMBICORT 160/4.5mcg -] Cyclobenzaprine HCl 5 mg PO BID #28 tablet 12/30/17 Glipizide [Glucotrol -] 5 mg PO BID 01/11/18 Carvedilol [Coreg -] 25 mg PO BID #60 tablet 02/14/18 Pantoprazole Sodium [Protonix -] 40 mg PO DAILY #14 tablet.ec 02/22/18 Tiotropium [place] [Spiriva 2 puff IH DAILY #1 inhaler 02/22/18 Respimat] predniSONE [Deltasone -] 5 mg PO ASDIR #78 tab 02/22/18 Atorvastatin Ca [Lipitor] 20 mg PO HS 02/23/18 Furosemide [Lasix -] 80 mg PO DAILY #60 tablet 03/15/18 Insulin (Novolog) [Novolog Vial] See Protocol SQ BID PRN 03/23/18 Lactulose [Cephulac -] 10 - 20 gm PO DAILY PRN #1 bottle 03/23/18 Oxycodone HCl/Acetaminophen 1 each PO QID #120 tablet MDD 4 03/23/18 [Percocet 10-325 mg Tablet] Active Medications Acetylcysteine (Mucomyst 20 Oral / Inh Use Only*) 200 mg NEB RQID [facility] Last Admin: 04/12/18 07:25 Dose: Not Given Albuterol Sulfate (Ventolin 0.083% Nebulizer Soln -) 1 amp NEB Q4H PRN PRN Reason: SHORTNESS OF BREATH Last Admin: 04/11/18 08:01 Dose: 1 amp Aspirin (Ecotrin -) 81 mg PO DAILY [facility] Last Admin: 04/12/18 09:00 Dose: 81 mg Benzocaine/Menthol (Cepacol Lozenge -) 1 each MM PRN PRN PRN Reason: SORE THROAT Last Admin: 04/12/18 09:01 Dose: 1 each Budesonide/Formoterol Fumarate (Symbicort 80/4.5mcg -) 2 puff IH BID [facility] Last Admin: 04/12/18 09:00 Dose: 2 puff Cholecalciferol (Vitamin D3 -) 2,000 unit PO DAILY [facility] Last Admin: 04/12/18 09:00 Dose: 2,000 unit Cyclobenzaprine HCl (Flexeril -) 5 mg PO BID [facility] Last Admin: 04/12/18 09:00 Dose: 5 mg Docusate Sodium (Colace -) 100 mg PO TID [facility] Last Admin: 04/12/18 05:30 Dose: 100 mg Furosemide (Lasix -) 80 mg PO BID@0600,1400 [facility] Last Admin: 04/12/18 05:30 Dose: 80 mg Insulin Aspart (Novolog Vial Sliding Scale -) 1 vial SQ ACHS [facility]; Protocol Last Admin: 04/12/18 06:03 Dose: Not Given Meclizine HCl (Antivert -) 12.5 mg PO Q8H PRN PRN Reason: VERTIGO Metoprolol Succinate (Toprol Xl -) 50 mg PO BID [facility] Last Admin: 04/12/18 09:00 Dose: 50 mg Metoprolol Tartrate (Lopressor Injection -) 5 mg IVPUSH Q4H PRN PRN Reason: TACHYCARDIA Last Admin: 04/01/18 21:40 Dose: 5 mg Psyllium Hydrophilic Mucilloid (Metamucil (Sugar-Free) -) 5.85 gm PO BID [facility] Last Admin: 04/12/18 09:01 Dose: 5.85 gm Ranitidine HCl (Zantac -) 150 mg PO HS [facility] Last Admin: 04/11/18 21:18 Dose: 150 mg Senna (Senna -) 2 tab PO HS PRN PRN Reason: CONSTIPATION Laboratory Results - last 24 hr 04/11/18 04/11/18 04/11/18 05:55 11:29 16:46 WBC RBC Hgb Hct MCV MCH MCHC RDW Plt Count MPV Absolute Neuts (auto) Neutrophils % Lymphocytes % Monocytes % Eosinophils % Basophils % Nucleated RBC % Sodium 136 Potassium 3.8 Chloride 94 L Carbon Dioxide 33 H Anion Gap 9 BUN 79 H Creatinine 1.9 H Creat Clearance w eGFR 36.10 POC Glucometer 230 169 Random Glucose 167 H Calcium 7.9 L Phosphorus 3.4 Magnesium 2.1 Total Bilirubin 1.2 H Direct Bilirubin 0.6 H AST 27 ALT 177 H Alkaline Phosphatase 126 H Total Protein 5.4 L Albumin 2.7 L 04/11/18 04/12/18 04/12/18 21:16 04:54 06:00 WBC 11.6 H RBC 3.73 L Hgb 12.1 Hct 35.2 L MCV 94.3 MCH 32.3 MCHC 34.3 RDW 18.5 H Plt Count 78 L MPV 10.3 Absolute Neuts (auto) 10.1 H Neutrophils % 86.9 H Lymphocytes % 2.7 L Monocytes % 9.1 Eosinophils % 0.8 Basophils % 0.5 Nucleated RBC % 0 Sodium Potassium Chloride Carbon Dioxide Anion Gap BUN Creatinine Creat Clearance w eGFR POC Glucometer 184 115 Random Glucose Calcium Phosphorus Magnesium Total Bilirubin Direct Bilirubin AST ALT Alkaline Phosphatase Total Protein Albumin 04/12/18 04/12/18 06:00 06:46 WBC RBC Hgb Hct MCV MCH MCHC RDW Plt Count MPV Absolute Neuts (auto) Neutrophils % Lymphocytes % Monocytes % Eosinophils % Basophils % Nucleated RBC % Sodium 133 L Potassium 3.8 Chloride 92 L Carbon Dioxide 32 Anion Gap 9 BUN 74 H Creatinine 1.8 H Creat Clearance w eGFR 38.42 POC Glucometer 130 Random Glucose 118 H Calcium 7.8 L Phosphorus 2.7 Magnesium 2.2 Total Bilirubin 1.1 H Direct Bilirubin 0.6 H AST 22 ALT 142 H Alkaline Phosphatase 112 Total Protein 5.6 L Albumin 2.8 L Microbiology 03/28/18 06:43 Blood - Peripheral Venous Blood Culture - Final NO GROWTH AFTER 5 DAYS INCUBATION 03/28/18 06:43 Blood - Peripheral Venous Blood Culture - Final NO GROWTH AFTER 5 DAYS INCUBATION 03/31/18 11:45 Urine - Urine Clean Catch Urine Culture - Final NO GROWTH OBTAINED 03/28/18 22:00 Urine For Antigen Detection Legionella Antigen - Final 03/28/18 22:00 Urine For Antigen Detection Streptococcus pneumoniae Antigen (M - Final CT brain overnight with infarcts noted, result reviewed. ASSESSMENT AND PLAN: 62 year old male with significant past medical history of copd, cabgx3 2012, bio avr 2012, pad s/p b/l sfa occlusions, syst chf s/p medtronic icd, htn, hld, a-tach, CKD (baseline cr 2.2-2.4), admitted with shortness of breath. -fall again on 04/12/2018 -Lacunar infarcts (chronic and indeterminate age, ?not present on CT head on 04/07 ) -Thrombocytopenia, ?in the setting of sepsis/antibiotics/hepatic dysfunction, low suspicion of HIT -Acute hypoxic respiratory failure -Acute influenza A illness -Acute LLL HCAP with loculated pleural effusion -Acute on chronic systolic heart failure exacerbation -Abnormal LFTs, suspect passive hepatic congestion, improved -Fall on 04/07/2018, again overnight 04/12/2018 -Elevated troponin, suspect demand type II NSTEMI from above -Cardiomyopathy (EF 30-35%) s/p medtronic ICD -Atrial fibrillation/Flutter not on AC due to risk of falls -Left external carotid stenosis -HTN -HLD -Bioprosthetic AVR 2012 -CABG x 3 -PAD s/p bilateral SFA occlusion -CKD (baseline cr 2.2-2.4) -Anemia of chronic disease Plan: Overnight events noted. CT head with infarcts noted, no comments on strokes on prior CT from 04/07. Discuss with radiologist. Discussed with Dr. Mancera, repeat CT head ordered to confirm If present, could be hypertensive or atherosclerotic, but unable to r/o embolic with certainty. Discussed with Dr. Greer, patient with high stroke rist and now if current stroke on CT confirmed, will need to address Watchman device and possible AC in closely monitored setting. Current decision on AC is difficult as patient with ongoing falls, thrombocytopenia. Platelets stabilized, hematology input noted. Spleen US with no concerns. Off protonix, started ranitidine. Follow up HIT panel. Duplex LE neg. Mental status improved, trauma w/u 04/07/18 neg post fall. LFTs improved, no abdominal symptoms, hep panel neg. Abdominal US noted. GI input noted. Unable to get MRCP given ICD, improved, suspect is from passive hepatic congestion, monitor. Discussed with Dr. Greer, will resume statin with close monitoring. Vascular surgery consult, however external carotid stenosis unlikely to be etiology for CVA. s/p tamiflu and zosyn, completed treatment. Prednisone taper. Mucomyst QID with nebs. Lasix 80 mg PO BID, Strict I/Os, daily weights, renal function stable. Pulmonary/nephrology input appreciated. Metoprolol/ASA Bowel regimen DVTPPx heparin PT eval noted, reassess as patient keeps having falls and may benefit from short term rehab. dispo dc planning on hold given thrombocytopenia, now with stroke concerns and need to address ongoing medical issues. . Plan discussed with patient and nursing in detail, all questions answered. care co-ordinated with Dr. Greer and Dr. Mancera Total time spent including patient visit, discussion with RN, cardiology, neurology and co-ordination of care 40 min.
--- NOTE | 2018-04-12 11:13 | PN ---
Progress Note, Physician History of Present Illness: pulmonary alert,no distress,less sob - Current Medication List Current Medications: Active Medications Acetylcysteine (Mucomyst 20 Oral / Inh Use Only*) 200 mg NEB RQID [facility] Last Admin: 04/12/18 07:25 Dose: Not Given Albuterol Sulfate (Ventolin 0.083% Nebulizer Soln -) 1 amp NEB Q4H PRN PRN Reason: SHORTNESS OF BREATH Last Admin: 04/11/18 08:01 Dose: 1 amp Aspirin (Ecotrin -) 81 mg PO DAILY [facility] Last Admin: 04/12/18 09:00 Dose: 81 mg Atorvastatin Calcium (Lipitor -) 40 mg PO [facility] Benzocaine/Menthol (Cepacol Lozenge -) 1 each MM PRN PRN PRN Reason: SORE THROAT Last Admin: 04/12/18 09:01 Dose: 1 each Budesonide/Formoterol Fumarate (Symbicort 80/4.5mcg -) 2 puff IH BID [facility] Last Admin: 04/12/18 09:00 Dose: 2 puff Cholecalciferol (Vitamin D3 -) 2,000 unit PO DAILY [facility] Last Admin: 04/12/18 09:00 Dose: 2,000 unit Cyclobenzaprine HCl (Flexeril -) 5 mg PO BID [facility] Last Admin: 04/12/18 09:00 Dose: 5 mg Docusate Sodium (Colace -) 100 mg PO TID [facility] Last Admin: 04/12/18 05:30 Dose: 100 mg Furosemide (Lasix -) 80 mg PO BID@0600,1400 [facility] Last Admin: 04/12/18 05:30 Dose: 80 mg Insulin Aspart (Novolog Vial Sliding Scale -) 1 vial SQ [facility]; Protocol Last Admin: 04/12/18 06:03 Dose: Not Given Meclizine HCl (Antivert -) 12.5 mg PO Q8H PRN PRN Reason: VERTIGO Metoprolol Succinate (Toprol Xl -) 50 mg PO BID [facility] Last Admin: 04/12/18 09:00 Dose: 50 mg Metoprolol Tartrate (Lopressor Injection -) 5 mg IVPUSH Q4H PRN PRN Reason: TACHYCARDIA Last Admin: 04/01/18 21:40 Dose: 5 mg Psyllium Hydrophilic Mucilloid (Metamucil (Sugar-Free) -) 5.85 gm PO BID [facility] Last Admin: 04/12/18 09:01 Dose: 5.85 gm Ranitidine HCl (Zantac -) 150 mg PO HS [facility] Last Admin: 04/11/18 21:18 Dose: 150 mg Senna (Senna -) 2 tab PO HS PRN PRN Reason: CONSTIPATION - Objective Vital Signs: Vital Signs Temperature 9.9 F L 04/12/18 08:59 Pulse Rate 65 04/12/18 08:59 Respiratory Rate 16 04/12/18 08:59 Blood Pressure 165/91 04/12/18 08:59 O2 Sat by Pulse Oximetry (%) 94 L 04/11/18 20:36 Constitutional: Yes: Well Nourished, Calm Eyes: Yes: WNL HENT: Yes: WNL Neck: Yes: WNL Cardiovascular: Yes: Pulse Irregular, S1, S2 Respiratory: Yes: Diminished, Rales (bibasilar crackles) Gastrointestinal: Yes: Normal Bowel Sounds, Soft Extremities: Yes: WNL Edema: Yes Labs: CBC, BMP 04/12/18 06:00 04/12/18 06:00 INR, PTT INR 1.28 (0.83-1.09) H 04/09/18 06:30 Problem List - Problems (1) Acute on chronic respiratory failure with hypoxemia Code(s): J96.21 - ACUTE AND CHRONIC RESPIRATORY FAILURE WITH HYPOXIA (2) S/P CABG x 3 Code(s): Z95.1 - PRESENCE OF AORTOCORONARY BYPASS GRAFT (4) Troponin I above reference range Code(s): R74.8 - ABNORMAL LEVELS OF OTHER SERUM ENZYMES (5) Acute exacerbation of CHF (congestive heart failure) Code(s): I50.9 - HEART FAILURE, UNSPECIFIED Qualifiers: Heart failure type: combined systolic and diastolic Qualified Code(s): I50.43 - Acute on chronic combined systolic (congestive) and diastolic ( congestive) heart failure (6) Influenza A Code(s): J10.1 - FLU DUE TO OTH IDENT INFLUENZA VIRUS W OTH RESP MANIFEST (7) Afib Code(s): I48.91 - UNSPECIFIED ATRIAL FIBRILLATION Qualifiers: Atrial fibrillation type: chronic Qualified Code(s): I48.2 - Chronic atrial fibrillation (8) COPD exacerbation Code(s): J44.1 - CHRONIC OBSTRUCTIVE PULMONARY DISEASE W (ACUTE) EXACERBATION (9) Cough Code(s): R05 - COUGH (10) Pneumonia Code(s): J18.9 - PNEUMONIA, UNSPECIFIED ORGANISM (11) S/P AVR Code(s): Z95.2 - PRESENCE OF PROSTHETIC HEART VALVE (12) Shortness of breath Code(s): R06.02 - SHORTNESS OF BREATH (13) Weakness Code(s): R53.1 - WEAKNESS (14) CAD (coronary artery disease) Code(s): I25.10 - ATHSCL HEART DISEASE OF [place] CORONARY ARTERY W/O ANG PCTRS Qualifiers: [place] vs. transplanted heart: [place] heart Associated angina: without angina (15) CHF (congestive heart failure) Code(s): I50.9 - HEART FAILURE, UNSPECIFIED Qualifiers: Heart failure type: systolic Heart failure chronicity: chronic Qualified Code(s): I50.22 - Chronic systolic (congestive) heart failure (16) Chronic renal insufficiency, stage III (moderate) Code(s): N18.3 - CHRONIC KIDNEY DISEASE, STAGE 3 (MODERATE) (17) Coronary artery disease Code(s): I25.10 - ATHSCL HEART DISEASE OF [place] CORONARY ARTERY W/O ANG PCTRS Qualifiers: Coronary Disease-Associated Artery/Lesion type: bypass graft, other Associated angina: with other forms of angina Qualified Code(s): I25.798 - Atherosclerosis of other coronary artery bypass graft(s) with other forms of angina pectoris (18) HTN (hypertension) Code(s): I10 - ESSENTIAL (PRIMARY) HYPERTENSION Qualifiers: Hypertension type: essential hypertension Qualified Code(s): I10 - Essential (primary) hypertension (19) Peripheral vascular disease Code(s): I73.9 - PERIPHERAL VASCULAR DISEASE, UNSPECIFIED (20) Lactate blood increase Code(s): R79.89 - OTHER SPECIFIED ABNORMAL FINDINGS OF BLOOD CHEMISTRY Assessment/Plan IMP ACUTE ON CHRONIC HYPOXEMIC RESPIRATORY FAILURE IMPROVING ACUTE ON CHRONIC CHF S/P AICD COPD O2 DEPENDENT + TROPONIN ASHD S/P CABG S/P AVR ? PNEUMONIA ATYPICAL CP ACUTE ON CKD WORSENING PULMONARY HTN INFLUENZA A AFIB ELEVATED LACTATE LEVEL IMPROVED PLEURAL EFFUSION MEDIASTINAL ADENOPATHY LIKELY REACTIVE PLAN LASIX O2 INHALED BRONCHODILATORS F/U CHEST X-RAYS MONITOR LYTES,RENAL FUNCTION F/U CHEST CT 4-[address] [place] Problem List - Problems (1) Acute on chronic respiratory failure with hypoxemia Code(s): J96.21 - ACUTE AND CHRONIC RESPIRATORY FAILURE WITH HYPOXIA (2) S/P CABG x 3 Code(s): Z95.1 - PRESENCE OF AORTOCORONARY BYPASS GRAFT (4) Troponin I above reference range Code(s): R74.8 - ABNORMAL LEVELS OF OTHER SERUM ENZYMES (5) Acute exacerbation of CHF (congestive heart failure) Code(s): I50.9 - HEART FAILURE, UNSPECIFIED Qualifiers: (6) Influenza A Code(s): J10.1 - FLU DUE TO OTH IDENT INFLUENZA VIRUS W OTH RESP MANIFEST (7) Afib Code(s): I48.91 - UNSPECIFIED ATRIAL FIBRILLATION Qualifiers: Atrial fibrillation type: chronic Qualified Code(s): I48.2 - Chronic atrial fibrillation (8) COPD exacerbation Code(s): J44.1 - CHRONIC OBSTRUCTIVE PULMONARY DISEASE W (ACUTE) EXACERBATION (9) Cough Code(s): R05 - COUGH (10) Pneumonia Code(s): J18.9 - PNEUMONIA, UNSPECIFIED ORGANISM (11) S/P AVR Code(s): Z95.2 - PRESENCE OF PROSTHETIC HEART VALVE (12) Shortness of breath Code(s): R06.02 - SHORTNESS OF BREATH (13) Weakness Code(s): R53.1 - WEAKNESS (14) CAD (coronary artery disease) Code(s): I25.10 - ATHSCL HEART DISEASE OF [place] CORONARY ARTERY W/O ANG PCTRS Qualifiers: [place] vs. transplanted heart: [place] heart Associated angina: without angina (15) CHF (congestive heart failure) Code(s): I50.9 - HEART FAILURE, UNSPECIFIED Qualifiers: Heart failure type: systolic Heart failure chronicity: chronic Qualified Code(s): I50.22 - Chronic systolic (congestive) heart failure (16) Chronic renal insufficiency, stage III (moderate) Code(s): N18.3 - CHRONIC KIDNEY DISEASE, STAGE 3 (MODERATE) (17) Coronary artery disease Code(s): I25.10 - ATHSCL HEART DISEASE OF [place] CORONARY ARTERY W/O ANG PCTRS Qualifiers: Coronary Disease-Associated Artery/Lesion type: bypass graft, other Associated angina: with other forms of angina Qualified Code(s): I25.798 - Atherosclerosis of other coronary artery bypass graft(s) with other forms of angina pectoris (18) HTN (hypertension) Code(s): I10 - ESSENTIAL (PRIMARY) HYPERTENSION Qualifiers: Hypertension type: essential hypertension Qualified Code(s): I10 - Essential (primary) hypertension (19) Peripheral vascular disease Code(s): I73.9 - PERIPHERAL VASCULAR DISEASE, UNSPECIFIED (20) Lactate blood increase Code(s): R79.89 - OTHER SPECIFIED ABNORMAL FINDINGS OF BLOOD CHEMISTRY
--- NOTE | 2018-04-12 11:35 | PN ---
Physical Exam: SUBJECTIVE: Patient seen and examined at bed side this morning. States he is feeling better. Overnight he had a mechanical fall as per the patient, he tripped and fell. Head CT was done which was negative for any acute pathology. OBJECTIVE: Vital Signs Period Temp Pulse Resp BP Sys/El Pulse Ox Last 24 Hr 97.4 F-98.0 F 65-103 16-20 136-165/76-97 94-95 GENERAL: Middle aged obese male, lying in bed, Awake, alert, oriented x 3, nasal canula @ 2L. HEAD: Normal with no signs of trauma. EYES:EOM intact, no pallor or icterus. EARS, NOSE, THROAT: Ears normal, moist mucous membranes. NECK:Supple. LUNGS: B/L Breath sounds equal, bibasilar minimal crackles , No accessory muscle use. HEART: Irregularly irregular, rate, normal S1 and S2 with systolic murmur. ABDOMEN: Soft, non tender, no organomegaly. MUSCULOSKELETAL: Normal range of motion at all joints. No bony deformities or tenderness. No CVA tenderness. UPPER EXTREMITIES: 2+ pulses, warm, well-perfused. No cyanosis. No clubbing. No peripheral edema. LOWER EXTREMITIES: 2+ pulses, warm, well-perfused. No calf tenderness. Trace pitting edema b/l-improved. NEUROLOGICAL: No facial droop. Normal speech. Gait not observed. PSYCHIATRIC: Cooperative. Good eye contact. Appropriate mood and affect. SKIN: Warm, dry, normal turgor, no rashes or lesions noted, normal capillary refill. Laboratory Results - last 24 hr 04/11/18 04/11/18 04/11/18 05:55 11:29 16:46 WBC RBC Hgb Hct MCV MCH MCHC RDW Plt Count MPV Absolute Neuts (auto) Neutrophils % Lymphocytes % Monocytes % Eosinophils % Basophils % Nucleated RBC % Sodium 136 Potassium 3.8 Chloride 94 L Carbon Dioxide 33 H Anion Gap 9 BUN 79 H Creatinine 1.9 H Creat Clearance w eGFR 36.10 POC Glucometer 230 169 Random Glucose 167 H Calcium 7.9 L Phosphorus 3.4 Magnesium 2.1 Total Bilirubin 1.2 H Direct Bilirubin 0.6 H AST 27 ALT 177 H Alkaline Phosphatase 126 H Total Protein 5.4 L Albumin 2.7 L 04/11/18 04/12/18 04/12/18 21:16 04:54 06:00 WBC 11.6 H RBC 3.73 L Hgb 12.1 Hct 35.2 L MCV 94.3 MCH 32.3 MCHC 34.3 RDW 18.5 H Plt Count 78 L MPV 10.3 Absolute Neuts (auto) 10.1 H Neutrophils % 86.9 H Lymphocytes % 2.7 L Monocytes % 9.1 Eosinophils % 0.8 Basophils % 0.5 Nucleated RBC % 0 Sodium Potassium Chloride Carbon Dioxide Anion Gap BUN Creatinine Creat Clearance w eGFR POC Glucometer 184 115 Random Glucose Calcium Phosphorus Magnesium Total Bilirubin Direct Bilirubin AST ALT Alkaline Phosphatase Total Protein Albumin 04/12/18 04/12/18 06:00 06:46 WBC RBC Hgb Hct MCV MCH MCHC RDW Plt Count MPV Absolute Neuts (auto) Neutrophils % Lymphocytes % Monocytes % Eosinophils % Basophils % Nucleated RBC % Sodium 133 L Potassium 3.8 Chloride 92 L Carbon Dioxide 32 Anion Gap 9 BUN 74 H Creatinine 1.8 H Creat Clearance w eGFR 38.42 POC Glucometer 130 Random Glucose 118 H Calcium 7.8 L Phosphorus 2.7 Magnesium 2.2 Total Bilirubin 1.1 H Direct Bilirubin 0.6 H AST 22 ALT 142 H Alkaline Phosphatase 112 Total Protein 5.6 L Albumin 2.8 L Active Medications Generic Name Dose Route Start Last Admin Trade Name Freq PRN Reason Stop Dose Admin Acetylcysteine 200 mg 04/10/18 12:00 04/12/18 11:11 Mucomyst 20 Oral / Inh Use Only* NEB Not Given RQID MANJU Albuterol Sulfate 1 amp 04/10/18 09:12 04/11/18 08:01 Ventolin 0.083% Nebulizer Soln - NEB 1 amp Q4H PRN Administration SHORTNESS OF BREATH Aspirin 81 mg 03/29/18 10:00 04/12/18 09:00 Ecotrin - PO 81 mg DAILY MANJU Administration Atorvastatin Calcium 40 mg 04/12/18 22:00 Lipitor - PO HS MANJU Benzocaine/Menthol 1 each 04/03/18 08:00 04/12/18 09:01 Cepacol Lozenge - MM 1 each PRN PRN Administration SORE THROAT Budesonide/Formoterol Fumarate 2 puff 04/02/18 22:00 04/12/18 09:00 Symbicort 80/4.5mcg - IH 2 puff BID MANJU Administration Cholecalciferol 2,000 unit 12/24/18 10:00 04/12/18 09:00 Vitamin D3 - PO 2,000 unit DAILY MANJU Administration Cyclobenzaprine HCl 5 mg 03/28/18 22:00 04/12/18 09:00 Flexeril - PO 5 mg BID MANJU Administration Docusate Sodium 100 mg 03/28/18 14:00 04/12/18 05:30 Colace - PO 100 mg TID MANJU Administration Furosemide 80 mg 04/10/18 14:00 04/12/18 05:30 Lasix - PO 80 mg BID@0600,1400 MANJU Administration Insulin Aspart 1 vial 03/28/18 12:23 04/12/18 06:03 Novolog Vial Sliding Scale - SQ Not Given ACHS [facility] Protocol Meclizine HCl 12.5 mg 04/08/18 16:48 Antivert - PO Q8H PRN VERTIGO Metoprolol Succinate 50 mg 04/02/18 22:00 04/12/18 09:00 Toprol Xl - PO 50 mg BID MANJU Administration Metoprolol Tartrate 5 mg 03/31/18 11:02 04/01/18 21:40 Lopressor Injection - IVPUSH 5 mg Q4H PRN Administration TACHYCARDIA Psyllium Hydrophilic Mucilloid 5.85 gm 03/28/18 22:00 04/12/18 09:01 Metamucil (Sugar-Free) - PO 5.85 gm BID MANJU Administration Ranitidine HCl 150 mg 04/11/18 22:00 04/11/18 21:18 Zantac - PO 150 mg HS MANJU Administration Senna 2 tab 04/02/18 09:45 Senna - PO HS PRN CONSTIPATION Imaging: CT chest: Partially loculated left pleural effusion with atelectactic changes of the lower lobe. Cardiomegaly and possible mild congestion. Prominent mediastinal lymph nodes. Trace ascites. Abdominal CT: Findings consistent with advanced Hepatocellular disease. Trace ascites. 04/08/18: ultrasound of abdomen: Fatty liver vs Hepatocellular disease. Small right renal cortical cyst measuring 9mm. Right pleural effusion. Carotid ultrasound 03/13/18: Left external carotid stenosis > 90 % ASSESSMENT/PLAN: Patient is a 62 year old male with significant past medical history of COPD on 3L home O2, pEFHF, CAD, ICD placement, PAD, DM, Atrial fibrillation not on A/c due to risk of fall was brought in to the ED by family members due to shortness of breath. # Frequent falls Hx of frequent falls, 2 falls while admitted. Head CT x 2 negative for any acute pathology. Pt reports last night he had a mechanical fall Unsure if he has dizziness/vertigo and then he falls. Started on Meclizine, reports dizziness/vertigo has improved. Carotid ultrasound 03/13/18: Left external carotid stenosis > 90 % which is unlikely cause of his fall # R/O Psychiatric issues As per HCP, he is not at his baseline mental status and unsure if he has the capacity to decide medical treatment. Needs watchman procedure Psych eval pending (spoke with Dr. Plaza who will evaluate the patient in AM) # Dizziness with vertigo- possible BPPV- improving Started on Meclizine 12.5 mg TID Fall precautions # Suicidal ideation: Was on 1:1, discontinued on 04/10/18, no suicidal ideation at this time. # Left thalamic infarct-old Discussed with Radiology, as compared to CT head from 03/23, it has unchanged. CHADsVASc score of 6, needs to be an AC but due to frequent falls, not a candidate, high risk of bleeding. # Transaminitis could be from hepatic congestion from CHF-now improving Not a candidate for MRCP due to ICD placement. Alcohol cessation counseling. # CKD creatinine 1.8 today (baseline 2-2.1). Appreciate Renal consult. Continue IV Lasix 80 mg BID. Repeat bmp in AM Fluid restriction Avoid Nephrotoxic drugs # Abdominal pain -resolved. # Sinus Tachycardia Continue Lopressor 50mg BID as per cardio. Continue to monitor in tele. # Acute hypoxic respiratory failure likely secondary to CHF/COPD exacerbation superimposed by Pneumonia and Flu- Resolved Completed Tamiflu course. Changed IV steriods to PO Prednisone 20 mg Daily # Elevated troponins likely from Demand ischemia- # Prolonged Qtc 582 on admission Avoid any Qtc prolonging agents # Normocytic anemia H/H stable. likely from CKD Iron studies: High ferritin, normal Iron. B12 and Folate high. # Atrial fibrillation CHADsVASc score of 6. Not on a/c due to risk of fall. PT to evaluate. # Hypertension-controlled continue Metoprolol 50 BID IV Metoprolol 5mg Q4H PRN for tachycardia. # FEN Not on IV fluids due to volume overload. Electrolytes WNL Diabetic diet/fat controlled # Prophylaxis For DVT: On Heparin 5000 IU sq TID FoR GI: On Protonix 40mg Daily # Code status: Full Code # Dispo:Admit to tele inpatient. Planning to transfer to [facility] for Watchman procedure, as per cardio. Illness, Investigation and Plan of care explained to the patient. He verbalized understanding. Case discussed with Dr. Mathias Problem List - Problems (1) Acute exacerbation of CHF (congestive heart failure) Code(s): I50.9 - HEART FAILURE, UNSPECIFIED Qualifiers: Heart failure type: combined systolic and diastolic Qualified Code(s): I50.43 - Acute on chronic combined systolic (congestive) and diastolic ( congestive) heart failure (2) Influenza A Code(s): J10.1 - FLU DUE TO OTH IDENT INFLUENZA VIRUS W OTH RESP MANIFEST (3) Neck pain on right side Code(s): M54.2 - CERVICALGIA (4) Respiratory distress Code(s): R06.00 - DYSPNEA, UNSPECIFIED (5) COPD (chronic obstructive pulmonary disease) Code(s): J44.9 - CHRONIC OBSTRUCTIVE PULMONARY DISEASE, UNSPECIFIED (6) ERROL (acute kidney injury) Code(s): N17.9 - ACUTE KIDNEY FAILURE, UNSPECIFIED (7) Afib Code(s): I48.91 - UNSPECIFIED ATRIAL FIBRILLATION Qualifiers: Atrial fibrillation type: chronic Qualified Code(s): I48.2 - Chronic atrial fibrillation Visit type - Emergency Visit Emergency Visit: Yes ED Registration Date: 03/28/18 Care time: The patient presented to the Emergency Department on the above date and was hospitalized for further evaluation of their emergent condition. - New Patient This patient is new to me today: No - Critical Care Critical Care patient: No - Discharge Referral [facility]erred to [facility] Med P.C.: No
--- NOTE | 2018-04-12 12:40 | PN ---
Progress Note, Physician History of Present Illness: Pt seen and examined at bedside. He is awake and alert. He feels that his breathing is improved. He is eager to be discharged. - Current Medication List Current Medications: Active Medications Acetylcysteine (Mucomyst 20 Oral / Inh Use Only*) 200 mg NEB RQID [facility] Last Admin: 04/12/18 11:11 Dose: Not Given Albuterol Sulfate (Ventolin 0.083% Nebulizer Soln -) 1 amp NEB Q4H PRN PRN Reason: SHORTNESS OF BREATH Last Admin: 04/11/18 08:01 Dose: 1 amp Aspirin (Ecotrin -) 81 mg PO DAILY [facility] Last Admin: 04/12/18 09:00 Dose: 81 mg Atorvastatin Calcium (Lipitor -) 40 mg PO HS [facility] Benzocaine/Menthol (Cepacol Lozenge -) 1 each MM PRN PRN PRN Reason: SORE THROAT Last Admin: 04/12/18 09:01 Dose: 1 each Budesonide/Formoterol Fumarate (Symbicort 80/4.5mcg -) 2 puff IH BID [facility] Last Admin: 04/12/18 09:00 Dose: 2 puff Cholecalciferol (Vitamin D3 -) 2,000 unit PO DAILY [facility] Last Admin: 04/12/18 09:00 Dose: 2,000 unit Cyclobenzaprine HCl (Flexeril -) 5 mg PO BID [facility] Last Admin: 04/12/18 09:00 Dose: 5 mg Docusate Sodium (Colace -) 100 mg PO TID [facility] Last Admin: 04/12/18 05:30 Dose: 100 mg Furosemide (Lasix -) 80 mg PO BID@0600,1400 [facility] Last Admin: 04/12/18 05:30 Dose: 80 mg Insulin Aspart (Novolog Vial Sliding Scale -) 1 vial SQ ACHS [facility]; Protocol Last Admin: 04/12/18 11:49 Dose: 2 units Meclizine HCl (Antivert -) 12.5 mg PO Q8H PRN PRN Reason: VERTIGO Metoprolol Succinate (Toprol Xl -) 50 mg PO BID [facility] Last Admin: 04/12/18 09:00 Dose: 50 mg Metoprolol Tartrate (Lopressor Injection -) 5 mg IVPUSH Q4H PRN PRN Reason: TACHYCARDIA Last Admin: 04/01/18 21:40 Dose: 5 mg Psyllium Hydrophilic Mucilloid (Metamucil (Sugar-Free) -) 5.85 gm PO BID MANJU Last Admin: 04/12/18 09:01 Dose: 5.85 gm Ranitidine HCl (Zantac -) 150 mg PO HS MANJU Last Admin: 04/11/18 21:18 Dose: 150 mg Senna (Senna -) 2 tab PO HS PRN PRN Reason: CONSTIPATION - Objective Vital Signs: Vital Signs Temperature 97.9 F 04/12/18 10:59 Pulse Rate 65 04/12/18 10:59 Respiratory Rate 16 04/12/18 10:59 Blood Pressure 136/88 04/12/18 10:59 O2 Sat by Pulse Oximetry (%) 95 04/12/18 10:00 Constitutional: Yes: Calm Eyes: Yes: Conjunctiva Clear Cardiovascular: Yes: S1, S2 Respiratory: Yes: On Nasal O2, Rhonchi Gastrointestinal: Yes: Soft Genitourinary: Yes: WNL Edema: Yes Edema: LLE: 1+, RLE: 1+ Neurological: Yes: Oriented Psychiatric: Yes: Oriented Labs: CBC, BMP 04/12/18 06:00 04/12/18 06:00 INR, PTT INR 1.28 (0.83-1.09) H 04/09/18 06:30 Problem List - Problems (1) Acute exacerbation of CHF (congestive heart failure) Code(s): I50.9 - HEART FAILURE, UNSPECIFIED Qualifiers: Heart failure type: combined systolic and diastolic Qualified Code(s): I50.43 - Acute on chronic combined systolic (congestive) and diastolic ( congestive) heart failure (2) Chronic kidney disease (CKD) Code(s): N18.9 - CHRONIC KIDNEY DISEASE, UNSPECIFIED Qualifiers: Chronic kidney disease stage: stage 3 (moderate) Qualified Code(s): N18.3 - Chronic kidney disease, stage 3 (moderate) Assessment/Plan Current Medications Generic Name Dose Route Start Last Admin Trade Name Freq PRN Reason Stop Dose Admin Acetylcysteine 200 mg 04/10/18 12:00 04/12/18 11:11 Mucomyst 20 Oral / Inh Use Only* NEB Not Given RQID MANJU Albuterol Sulfate 1 amp 04/10/18 09:12 04/11/18 08:01 Ventolin 0.083% Nebulizer Soln - NEB 1 amp Q4H PRN Administration SHORTNESS OF BREATH Aspirin 81 mg 03/29/18 10:00 04/12/18 09:00 Ecotrin - PO 81 mg DAILY MANJU Administration Atorvastatin Calcium 40 mg 04/12/18 22:00 Lipitor - PO HS MANJU Benzocaine/Menthol 1 each 04/03/18 08:00 04/12/18 09:01 Cepacol Lozenge - MM 1 each PRN PRN Administration SORE THROAT Budesonide/Formoterol Fumarate 2 puff 04/02/18 22:00 04/12/18 09:00 Symbicort 80/4.5mcg - IH 2 puff BID [facility] Administration Cholecalciferol 2,000 unit 03/29/18 10:00 04/12/18 09:00 Vitamin D3 - PO 2,000 unit DAILY MANJU Administration Cyclobenzaprine HCl 5 mg 03/28/18 22:00 04/12/18 09:00 Flexeril - PO 5 mg BID [facility] Administration Docusate Sodium 100 mg 03/28/18 14:00 04/12/18 05:30 Colace - PO 100 mg TID MANJU Administration Furosemide 80 mg 04/10/18 14:00 04/12/18 05:30 Lasix - PO 80 mg BID@0600,1400 [facility] Administration Insulin Aspart 1 vial 03/28/18 12:23 04/12/18 11:49 Novolog Vial Sliding Scale - SQ 2 units ACHS MANJU Administration Protocol Meclizine HCl 12.5 mg 04/08/18 16:48 Antivert - PO Q8H PRN VERTIGO Metoprolol Succinate 50 mg 04/02/18 22:00 04/12/18 09:00 Toprol Xl - PO 50 mg BID MANJU Administration Metoprolol Tartrate 5 mg 03/31/18 11:02 04/01/18 21:40 Lopressor Injection - IVPUSH 5 mg Q4H PRN Administration TACHYCARDIA Psyllium Hydrophilic Mucilloid 5.85 gm 03/28/18 22:00 04/12/18 09:01 Metamucil (Sugar-Free) - PO 5.85 gm BID [facility] Administration Ranitidine HCl 150 mg 04/11/18 22:00 04/11/18 21:18 Zantac - PO 150 mg HS [facility] Administration Senna 2 tab 04/02/18 09:45 Senna - PO HS PRN CONSTIPATION Impression 1. CKD 2. proteinuria 3. CAD 4. CHF 5. COPD 6. DM 7. HTN 8. azotemia/fior 9. anemia Plan - cont lasix - monitor volume status - renal function stabilizing - spoke to vascular, the are not planning on any imaging with contrast - low sodium diet and fluid restriction - monitor pulse ox - will follow
--- NOTE | 2018-04-12 13:05 | CONSULT ---
- Consultation REQUESTING PROVIDER: CONSULT REQUEST: We have been asked to surgically evaluate this patient for Carotid stenosis PCP:Aníbal Mathias MD HISTORY OF PRESENT ILLNESS: 62yo M was consulted to vascular for concerns of carotid stenosis as pt has a history of chronic brain infarcts and possible acute infarct. Pt is a difficult historian. Pt denies history of stroke or vascular disease. Pt denies headache, weakness, vision changes. Pt states that he quit smoking 4 months ago, but smoke 1ppd x 40yrs. PMHx: DM, CABG, Pacemaker, CHF, CKD Home Medications Medication Instructions Recorded Aspirin [Aspirin EC] 81 mg PO DAILY 06/18/15 Zolpidem Tartrate [Ambien] 10 mg PO HS 06/18/15 Psyllium [Metamucil (Sugar-Free) -] 5.85 gm PO BID #1 bottle 06/02/17 Docusate Sodium [Colace -] 100 mg PO TID #90 capsule 09/22/17 Cholecalciferol (Vitamin D3) 2,000 unit PO DAILY #30 capsule 12/25/17 [Vitamin D3] Budesonide/Formeterol Fumarate 1 puff IH DAILY inhaler 12/30/17 [SYMBICORT 160/4.5mcg -] Cyclobenzaprine HCl 5 mg PO BID #28 tablet 12/30/17 Glipizide [Glucotrol -] 5 mg PO BID 01/11/18 Carvedilol [Coreg -] 25 mg PO BID #60 tablet 02/14/18 Pantoprazole Sodium [Protonix -] 40 mg PO DAILY #14 tablet.ec 02/22/18 Tiotropium [place] [Spiriva 2 puff IH DAILY #1 inhaler 02/22/18 Respimat] predniSONE [Deltasone -] 5 mg PO ASDIR #78 tab 02/22/18 Atorvastatin Ca [Lipitor] 20 mg PO HS 02/23/18 Furosemide [Lasix -] 80 mg PO DAILY #60 tablet 03/15/18 Insulin (Novolog) [Novolog Vial] See Protocol SQ BID PRN 03/23/18 Lactulose [Cephulac -] 10 - 20 gm PO DAILY PRN #1 bottle 03/23/18 Oxycodone HCl/Acetaminophen 1 each PO QID #120 tablet MDD 4 03/23/18 [Percocet 10-325 mg Tablet] Allergies Allergy/AdvReac Type Severity Reaction Status Date / Time Fish Containing Products Allergy Verified 03/28/18 05:49 codeine AdvReac Intermediate Vomiting Verified 03/28/18 05:49 gabapentin AdvReac Intermediate dizzy Verified 03/28/18 05:49 PHYSICAL EXAM: GENERAL: Awake, alert, and fully oriented, in no acute distress. HEAD: Normal with no signs of trauma. EYES: PERRL, sclera anicteric, conjunctiva clear. NECK: Normal ROM, supple without lymphadenopathy, JVD, or masses. LUNGS: Breathing comfortably, No accessory muscle use. HEART: Regular rate and rhythm. + murmur ABDOMEN: Soft, nontender, not distended, normoactive bowel sounds, no guarding, no rebound, no masses. No organomegaly. MUSCULOSKELETAL: Normal ROM at all joints. No bony deformities or tenderness. No CVA tenderness. LOWER EXTREMITIES: warm, well-perfused. No calf tenderness. +2 edema NEUROLOGICAL: Normal speech, gait not observed. PSYCH: Cooperative. Good eye contact. Appropriate mood and affect. SKIN: Warm, dry, normal turgor, no rashes or lesions noted. Vital Signs Temperature 97.9 F 04/12/18 10:59 Pulse Rate 65 04/12/18 10:59 Respiratory Rate 16 04/12/18 10:59 Blood Pressure 136/88 04/12/18 10:59 O2 Sat by Pulse Oximetry (%) 95 04/12/18 10:00 Lab Results WBC 11.6 K/mm3 (4.0-10.0) H 04/12/18 06:00 RBC 3.73 M/mm3 (4.00-5.60) L 04/12/18 06:00 Hgb 12.1 GM/dL (11.7-16.9) 04/12/18 06:00 Hct 35.2 % (35.4-49) L 04/12/18 06:00 MCV 94.3 fl (80-96) 04/12/18 06:00 MCHC 34.3 g/dl (32.0-35.9) 04/12/18 06:00 RDW 18.5 % (11.9-15.9) H 04/12/18 06:00 Plt Count 78 K/MM3 (134-434) L 04/12/18 06:00 Sodium 133 mmol/L (136-145) L 04/12/18 06:00 Potassium 3.8 mmol/L (3.5-5.1) 04/12/18 06:00 Chloride 92 mmol/L (98-107) L 04/12/18 06:00 Carbon Dioxide 32 mmol/L (21-32) 04/12/18 06:00 Anion Gap 9 MMOL/L (8-16) 04/12/18 06:00 BUN 74 mg/dL (7-18) H 04/12/18 06:00 Creatinine 1.8 mg/dL (0.55-1.3) H 04/12/18 06:00 Random Glucose 118 mg/dL (74-106) H 04/12/18 06:00 Calcium 7.8 mg/dL (8.5-10.1) L 04/12/18 06:00 INR 1.28 (0.83-1.09) H 04/09/18 06:30 Carotid Duplex: Left external carotid artery 90% stenosis. No significant stenosis of internal carotid. Problem List - Problems (1) Carotid stenosis Assessment/Plan: Plan -all of the cranial infarcts appear in the posterior aspect, as well as carotid stenosis is mostly in the external carotid. There is no need for surgical intervention at this time. -can have follow up carotid duplex in 6 months Case seen and discussed with Dr. Rousseau, who agrees with plan. Code(s): I65.29 - OCCLUSION AND STENOSIS OF UNSPECIFIED CAROTID ARTERY Visit type - Case Type Case Type: ED Admission - Emergency Emergency Visit: Yes ED Registration Date: 03/28/18 Care time: The patient presented to the Emergency Department on the above date and was hospitalized for further evaluation of their emergent condition. - New patient This patient is new to me today: Yes Date on this admission: 04/12/18
--- NOTE | 2018-04-12 14:44 | PN ---
Progress Note, Physician History of Present Illness: stable no new issues surgery evalauted for carotid steonsis - Current Medication List Current Medications: Active Medications Acetylcysteine (Mucomyst 20 Oral / Inh Use Only*) 200 mg NEB RQID [facility] Last Admin: 04/12/18 11:11 Dose: Not Given Albuterol Sulfate (Ventolin 0.083% Nebulizer Soln -) 1 amp NEB Q4H PRN PRN Reason: SHORTNESS OF BREATH Last Admin: 04/11/18 08:01 Dose: 1 amp Aspirin (Ecotrin -) 81 mg PO DAILY [facility] Last Admin: 04/12/18 09:00 Dose: 81 mg Atorvastatin Calcium (Lipitor -) 40 mg PO [facility] Benzocaine/Menthol (Cepacol Lozenge -) 1 each MM PRN PRN PRN Reason: SORE THROAT Last Admin: 04/12/18 09:01 Dose: 1 each Budesonide/Formoterol Fumarate (Symbicort 80/4.5mcg -) 2 puff IH BID [facility] Last Admin: 04/12/18 09:00 Dose: 2 puff Cholecalciferol (Vitamin D3 -) 2,000 unit PO DAILY [facility] Last Admin: 04/12/18 09:00 Dose: 2,000 unit Cyclobenzaprine HCl (Flexeril -) 5 mg PO BID [facility] Last Admin: 04/12/18 09:00 Dose: 5 mg Docusate Sodium (Colace -) 100 mg PO TID [facility] Last Admin: 04/12/18 13:33 Dose: Not Given Furosemide (Lasix -) 80 mg PO BID@0600,1400 [facility] Last Admin: 04/12/18 13:33 Dose: 80 mg Insulin Aspart (Novolog Vial Sliding Scale -) 1 vial SQ [facility]; Protocol Last Admin: 04/12/18 11:49 Dose: 2 units Meclizine HCl (Antivert -) 12.5 mg PO Q8H PRN PRN Reason: VERTIGO Metoprolol Succinate (Toprol Xl -) 50 mg PO BID [facility] Last Admin: 04/12/18 09:00 Dose: 50 mg Metoprolol Tartrate (Lopressor Injection -) 5 mg IVPUSH Q4H PRN PRN Reason: TACHYCARDIA Last Admin: 04/01/18 21:40 Dose: 5 mg Psyllium Hydrophilic Mucilloid (Metamucil (Sugar-Free) -) 5.85 gm PO BID [facility] Last Admin: 04/12/18 09:01 Dose: 5.85 gm Ranitidine HCl (Zantac -) 150 mg PO HS [facility] Last Admin: 04/11/18 21:18 Dose: 150 mg Senna (Senna -) 2 tab PO HS PRN PRN Reason: CONSTIPATION - Objective Vital Signs: Vital Signs Temperature 97.9 F 04/12/18 10:59 Pulse Rate 65 04/12/18 10:59 Respiratory Rate 16 04/12/18 10:59 Blood Pressure 136/88 04/12/18 10:59 O2 Sat by Pulse Oximetry (%) 95 04/12/18 10:00 Constitutional: Yes: No Distress, Calm Cardiovascular: Yes: S1, S2 Respiratory: Yes: Regular, CTA Bilaterally Gastrointestinal: Yes: Normal Bowel Sounds, Soft Musculoskeletal: Yes: WNL Extremities: Yes: WNL Neurological: Yes: Alert, Oriented Psychiatric: Yes: Alert, Oriented Labs: CBC, BMP 04/12/18 06:00 04/12/18 06:00 INR, PTT INR 1.28 (0.83-1.09) H 04/09/18 06:30 Assessment/Plan Problem List - Problems (1) Acute exacerbation of CHF (congestive heart failure) Code(s): I50.9 - HEART FAILURE, UNSPECIFIED Qualifiers: (2) Influenza A Code(s): J10.1 - FLU DUE TO OTH IDENT INFLUENZA VIRUS W OTH RESP MANIFEST (3) Respiratory distress Code(s): R06.00 - DYSPNEA, UNSPECIFIED (4) COPD (chronic obstructive pulmonary disease) Code(s): J44.9 - CHRONIC OBSTRUCTIVE PULMONARY DISEASE, UNSPECIFIED (5) Afib Code(s): I48.91 - UNSPECIFIED ATRIAL FIBRILLATION Qualifiers: Atrial fibrillation type: chronic Qualified Code(s): I48.2 - Chronic atrial fibrillation (6) Chronic respiratory failure Code(s): J96.10 - CHRONIC RESPIRATORY FAILURE, UNSP W HYPOXIA OR HYPERCAPNIA (7) Pneumonia Code(s): J18.9 - PNEUMONIA, UNSPECIFIED ORGANISM Qualifiers: Pneumonia type: due to unspecified organism Laterality: left Lung location: lower lobe of lung Qualified Code(s): J18.1 - Lobar pneumonia, unspecified organism (8) S/P AVR Code(s): Z95.2 - PRESENCE OF PROSTHETIC HEART VALVE (9) CAD (coronary artery disease) Code(s): I25.10 - ATHSCL HEART DISEASE OF [place] CORONARY ARTERY W/O ANG PCTRS Qualifiers: [place] vs. transplanted heart: [place] heart Associated angina: without angina (10) COPD (chronic obstructive pulmonary disease) Code(s): J44.9 - CHRONIC OBSTRUCTIVE PULMONARY DISEASE, UNSPECIFIED Qualifiers: COPD type: COPD with acute exacerbation Qualified Code(s): J44.1 - Chronic obstructive pulmonary disease with (acute) exacerbation (11) Chronic kidney disease (CKD) Code(s): N18.9 - CHRONIC KIDNEY DISEASE, UNSPECIFIED Qualifiers: Chronic kidney disease stage: stage 3 (moderate) Qualified Code(s): N18.3 - Chronic kidney disease, stage 3 (moderate) (12) Diabetes mellitus with chronic kidney disease Code(s): E11.22 - TYPE 2 DIABETES MELLITUS W DIABETIC CHRONIC KIDNEY DISEASE; N18.9 - CHRONIC KIDNEY DISEASE, UNSPECIFIED Qualifiers: Diabetes mellitus type: type 2 Chronic kidney disease stage: stage 3 ( moderate) (13) Peripheral vascular disease Code(s): I73.9 - PERIPHERAL VASCULAR DISEASE, UNSPECIFIED (15) Acute on chronic respiratory failure with hypoxemia Code(s): J96.21 - ACUTE AND CHRONIC RESPIRATORY FAILURE WITH HYPOXIA Assessment/Plan 62 y.o. male with PMH of COPD on home O2, CHF, CAD s/p CABG, AICD, bioprosthetic AVR, MR, Atrial Fibrillation, CKD, HTN, DM and PVD presenting with SOB/tachynea, chest discomfort, leukocytosis, lactic acidosis, pulmonary congestion. Recently admitted to the hospital Influenza A Possible HCAP Sepsis Acute on chronic CHF COPD CKD DM CAD s/p CABG s/p AICD s/p AVR MR AFIB plan continue current mgmt monitor closely monitor heart rate rest as per the team
[2018-04-12] MEDS ORDERED: ACETAMINOPHEN 325 MG TABLET (FP) PO PRN (16:40)
[2018-04-12 16:50] VITALS: BMI 27.2
[2018-04-12] MEDS: oxyCODONE HCL 5 MG TABLET PO PRN (17:55)
[2018-04-12] MEDS ORDERED: MELATONIN 1 MG TABLET PO SCH (22:00)
[2018-04-12] MEDS ORDERED: ATORVASTATIN CA 40 MG TABLET (FP) PO SCH (22:00)
[2018-04-12] MEDS: RANITIDINE HCL 150 MG TABLET (FP) PO SCH (22:35)
[2018-04-13] MEDS: ALBUTEROL SO4 0.083% IH SOL 2.5 MG/3 ML VIAL.NEB. NEB PRN ×3 (00:22→12:32)
[2018-04-13] MEDS ORDERED: PT OWN MED DRAWER 7, Y5N ONE (00:47)
[2018-04-13] MEDS: BENZOCAINE/MENTH/CETYLPYRD CL 1 EACH LOZENGE MM PRN (00:48)
[2018-04-13] MEDS: oxyCODONE HCL 5 MG TABLET PO PRN (03:37)
[2018-04-13] MEDS: FUROSEMIDE 40 MG TABLET (FP) PO SCH ×3 (05:58→14:03)
[2018-04-13] MEDS: DOCUSATE SODIUM 100 MG CAPSULE (FP) PO SCH ×3 (05:58→14:04)
[2018-04-13] MEDS: INSULIN SLIDING SCALE (NOVOLOG) 1 VIAL SQ SCH ×2 (06:05→11:34)
[2018-04-13 06:25] LABS: HEMATOCRIT 36.4 % (35.4-49); HEMOGLOBIN 11.6 GM/dL (11.7-16.9); MCH 30.3 pg (25.7-33.7); MCHC 31.9 g/dl (32.0-35.9); MEAN CELL VOLUME 95.3 fl (80-96); PLATELET COUNT 74 K/MM3 (134-434); RBC 3.82 M/mm3 (4.00-5.60); RDW 19.6 % (11.9-15.9); WHITE BLOOD COUNT 10.7 K/mm3 (4.0-10.0)
[2018-04-13 07:23] LABS: ALBUMIN 2.7 g/dl (3.4-5.0); ALK PHOS 98 U/L (45-117); ANION GAP 7 MMOL/L (8-16); BILIRUBIN,TOTAL 1.2 mg/dL (0.2-1); BLOOD UREA NITROGEN 65 mg/dL (7-18); CHLORIDE 94 mmol/L (98-107); CO2 33 mmol/L (21-32); CREATININE 1.8 mg/dL (0.55-1.3); GLUCOSE,RANDOM 114 mg/dL (74-106); POTASSIUM 3.7 mmol/L (3.5-5.1); SGOT/AST 21 U/L (15-37); SGPT/ALT 109 U/L (13-61); SODIUM 134 mmol/L (136-145); TOT PROT 5.5 g/dl (6.4-8.2)
[2018-04-13] MEDS: ACETYLCYSTEINE 20% 200MG/ML 4 ML VIAL *FOR ORAL / INH USE ONLY NEB SCH ×2 (08:00→12:32)
--- NOTE | 2018-04-13 09:21 | PN ---
Progress Note (short form) - Note Progress Note: Neurology HISTORY OF PRESENT ILLNESS: 62 year old male was brought in to the ED by family members due to shortness of breath. As per the patient, he had been having shortness of breath since a couple of days prior to admission, even at rest, worse on exertion. Denied orthopnea, PND, chest pain, palpitation, cough, fever, chills, rigors or sweating. Per notes, patient was complaining of chest pain, was hypoxic to 92 % @ 3L then was placed in NRB with improvement in saturation. Labs were significant for leukocytosis of 13.1; Lactic acid of 2.1. Influenza A positive, CXR showed Left infiltrate. Tamiflu was given, has been treated for PNA and respiratory compromise. Consulted for AMS. Initial CT head without acute changes. Ammonia level normal. Over weekend, psych consulted as patient reportedly expressed suicidal ideation, notes reviewed. Due to unwitnessed fall , completed CT head and reported L thalamic infarct, age indeterminate. Patient reported not able to tolerate MRI, also with PPM. Does not have sensory changes and may well be silent infarct or without deficit due to reperfusion. Repeat CT head ordered, discussed with nurse, would like to confirm infarct and make sure no others. Vascular note reviewed, external carotid stenosis, no plan for intervention. Lower extremity dopplers reviewed, no DVT. Cards note reviewed, being considered for Watchman. In terms of etiology, discussed with hospitalist and location suspicious atherosclerotic small vessel lacunar infarct. Though embolic less, likely cannot be certain that microembolic isn't the case. Would not be opposed to transfer for possible cardiac procedure. Active Medications Acetaminophen (Tylenol -) 650 mg PO BID PRN PRN Reason: PAIN LEVEL 7 - 10 Acetylcysteine (Mucomyst 20 Oral / Inh Use Only*) 200 mg NEB RQID REPLACED BY [facility] Last Admin: 04/12/18 19:53 Dose: Not Given Albuterol Sulfate (Ventolin 0.083% Nebulizer Soln -) 1 amp NEB Q4H PRN PRN Reason: SHORTNESS OF BREATH Last Admin: 04/13/18 00:22 Dose: 1 amp Aspirin (Ecotrin -) 81 mg PO DAILY [facility] Last Admin: 04/12/18 09:00 Dose: 81 mg Atorvastatin Calcium (Lipitor -) 40 mg PO HS [facility] Last Admin: 04/12/18 22:35 Dose: 40 mg Benzocaine/Menthol (Cepacol Lozenge -) 1 each MM PRN PRN PRN Reason: SORE THROAT Last Admin: 04/13/18 00:48 Dose: 1 each Budesonide/Formoterol Fumarate (Symbicort 80/4.5mcg -) 2 puff IH BID [facility]PL[facility] Last Admin: 04/12/18 22:39 Dose: 2 puff Cholecalciferol (Vitamin D3 -) 2,000 unit PO DAILY [facility] Last Admin: 04/12/18 09:00 Dose: 2,000 unit Cyclobenzaprine HCl (Flexeril -) 5 mg PO BID [facility] Last Admin: 04/12/18 22:34 Dose: 5 mg Docusate Sodium (Colace -) 100 mg PO TID [facility] Last Admin: 04/13/18 06:01 Dose: 100 mg Furosemide (Lasix -) 80 mg PO BID@0600,1400 [facility] Last Admin: 04/13/18 06:01 Dose: 80 mg Insulin Aspart (Novolog Vial Sliding Scale -) 1 vial SQ [facility]; Protocol Last Admin: 04/13/18 06:05 Dose: Not Given Meclizine HCl (Antivert -) 12.5 mg PO Q8H PRN PRN Reason: VERTIGO Melatonin (Melatonin) 3 mg PO [facility] Last Admin: 04/12/18 23:10 Dose: 3 mg Metoprolol Succinate (Toprol Xl -) 50 mg PO BID [facility] Last Admin: 04/12/18 22:35 Dose: 50 mg Metoprolol Tartrate (Lopressor Injection -) 5 mg IVPUSH Q4H PRN PRN Reason: TACHYCARDIA Last Admin: 04/01/18 21:40 Dose: 5 mg Oxycodone HCl (Roxicodone -) 2.5 mg PO TID PRN PRN Reason: PAIN LEVEL 7 - 10 Last Admin: 04/13/18 03:37 Dose: 2.5 mg Psyllium Hydrophilic Mucilloid (Metamucil (Sugar-Free) -) 5.85 gm PO BID [facility]PL[facility] Last Admin: 04/12/18 22:38 Dose: Not Given Ranitidine HCl (Zantac -) 150 mg PO [facility] Last Admin: 04/12/18 22:35 Dose: 150 mg Senna (Senna -) 2 tab PO HS PRN PRN Reason: CONSTIPATION PHYSICAL EXAMINATION Vital Signs Period Temp Pulse Resp BP Sys/El Pulse Ox Last 24 Hr 97.2 F-98.4 F 60-86 16-20 125-150/58-90 95-97 GENERAL: Middle aged obese male, lying in bed, Awake, alert, and fully oriented , in mild respiratory distress. HEAD: Normal with no signs of trauma. EYES:EOM intact, no pallor or icterus. EARS, NOSE, THROAT: Ears normal, drt mucous membranes. NECK:Supple. LUNGS: B/L Breath sounds equal, bibasilar crackles, No accessory muscle use. HEART: Irregularly irregular, rate, normal S1 and S2 with systolic murmur. ABDOMEN: Soft, nontender, no organomegaly. MUSCULOSKELETAL: Normal range of motion at all joints. No bony deformities or tenderness. No CVA tenderness. UPPER EXTREMITIES: 2+ pulses, warm, well-perfused. No cyanosis. No clubbing. No peripheral edema. LOWER EXTREMITIES: 2+ pulses, warm, well-perfused. No calf tenderness. Pitting edema b/l. NEUROLOGICAL: No facial droop. Normal speech. Gait not observed. PSYCHIATRIC: Cooperative. Good eye contact. Appropriate mood and affect. SKIN: Warm, dry, normal turgor, no rashes or lesions noted, normal capillary refill. CBCD WBC 10.7 K/mm3 (4.0-10.0) H 04/13/18 06:00 RBC 3.82 M/mm3 (4.00-5.60) L 04/13/18 06:00 Hgb 11.6 GM/dL (11.7-16.9) L 04/13/18 06:00 Hct 36.4 % (35.4-49) 04/13/18 06:00 MCV 95.3 fl (80-96) 04/13/18 06:00 MCHC 31.9 g/dl (32.0-35.9) L 04/13/18 06:00 RDW 19.6 % (11.9-15.9) H 04/13/18 06:00 Plt Count 74 K/MM3 (134-434) L 04/13/18 06:00 MPV 10.0 fl (7.5-11.1) 04/13/18 06:00 CMP Sodium 134 mmol/L (136-145) L 04/13/18 06:00 Potassium 3.7 mmol/L (3.5-5.1) 04/13/18 06:00 Chloride 94 mmol/L (98-107) L 04/13/18 06:00 Carbon Dioxide 33 mmol/L (21-32) H 04/13/18 06:00 Anion Gap 7 MMOL/L (8-16) L 04/13/18 06:00 BUN 65 mg/dL (7-18) H 04/13/18 06:00 Creatinine 1.8 mg/dL (0.55-1.3) H 04/13/18 06:00 Creat Clearance w eGFR 38.42 (>60) 04/13/18 06:00 Random Glucose 114 mg/dL (74-106) H 04/13/18 06:00 Calcium 8.0 mg/dL (8.5-10.1) L 04/13/18 06:00 Total Bilirubin 1.2 mg/dL (0.2-1) H 04/13/18 06:00 AST 21 U/L (15-37) 04/13/18 06:00 ALT 109 U/L (13-61) H 04/13/18 06:00 Alkaline Phosphatase 98 U/L (45-117) 04/13/18 06:00 Total Protein 5.5 g/dl (6.4-8.2) L 04/13/18 06:00 Albumin 2.7 g/dl (3.4-5.0) L 04/13/18 06:00 CARDIAC ENZYMES Creatine Kinase 36 IU/L (26-308) 03/28/18 07:15 Troponin I 0.05 ng/ml (0.00-0.05) 03/31/18 06:10 Imaging as above ASSESSMENT/PLAN: 62 year old male was brought in to the ED by family members due to shortness of breath. As per the patient, he had been having shortness of breath since a couple of days prior to admission, even at rest, worse on exertion. Denied orthopnea, PND, chest pain, palpitation, cough, fever, chills, rigors or sweating. Per notes, patient was complaining of chest pain, was hypoxic to 92 % @ 3L then was placed in NRB with improvement in saturation. Labs were significant for leukocytosis of 13.1; Lactic acid of 2.1. Influenza A positive, CXR showed Left infiltrate. Tamiflu was given, has been treated for PNA and respiratory compromise. onsulted for AMS. Initial CT head without acute changes. Ammonia level normal. Over weekend, psych consulted as patient reportedly expressed suicidal ideation, notes reviewed. After unwitnessed fall , completed CT head and reported L thalamic infarct, age indeterminate. Does not have sensory changes and may well be silent infarct or without deficit due to reperfusion. Not able to toelrate MRI and with PPM. Repeat CT head ordered, discussed with nurse, would like to confirm infarct and make sure no others, for this AM. Vascular note reviewed, external carotid stenosis, no plan for intervention. Lower extremity dopplers reviewed, no DVT. Cards note reviewed, being considered for Watchman. In terms of etiology, discussed with hospitalist and location suspicious atherosclerotic small vessel lacunar infarct. Though embolic less, likely cannot be certain that microembolic isn't the case. Would not be opposed to transfer for possible cardiac procedure. Is on ASA 81mg as well as Statin 40. Can continue meclezine for dizzyness. Maintain hydration, avoid sudden head movements. Continue medical optimization. Monitor mood and any further expression of sucidal ideation.
--- NOTE | 2018-04-13 10:33 | PN ---
Physical Exam: SUBJECTIVE: Patient seen and examined OBJECTIVE: Vital Signs Period Temp Pulse Resp BP Sys/El Pulse Ox Last 24 Hr 97.2 F-98.4 F 60-86 16-20 125-150/58-90 97 GENERAL: The patient is awake, alert, and fully oriented, in no acute distress. HEAD: Normal with no signs of trauma. EYES: PERRL, extraocular movements intact, sclera anicteric, conjunctiva clear. No ptosis. ENT: Ears normal, nares patent, oropharynx clear without exudates, moist mucous membranes. NECK: Trachea midline, full range of motion, supple. LUNGS: Breath sounds equal, clear to auscultation bilaterally, no wheezes, no crackles, no accessory muscle use. HEART: Regular rate and rhythm, S1, S2 without murmur, rub or gallop. ABDOMEN: Soft, nontender, nondistended, normoactive bowel sounds, no guarding, no rebound, no hepatosplenomegaly, no masses. EXTREMITIES: 2+ pulses, warm, well-perfused, no edema. NEUROLOGICAL: Cranial nerves II through XII grossly intact. Normal speech, gait not observed. PSYCH: Normal mood, normal affect. SKIN: Warm, dry, normal turgor, no rashes or lesions noted Laboratory Results - last 24 hr 04/10/18 04/12/18 04/12/18 12:42 11:41 16:21 WBC RBC Hgb Hct MCV MCH MCHC RDW Plt Count MPV Sodium Potassium Chloride Carbon Dioxide Anion Gap BUN Creatinine Creat Clearance w eGFR POC Glucometer 151 193 Random Glucose Calcium Total Bilirubin Direct Bilirubin AST ALT Alkaline Phosphatase Total Protein Albumin Heparin-Ind Plt Ab Scrn 1.178 H 04/12/18 04/13/18 04/13/18 22:33 06:00 06:00 WBC 10.7 H RBC 3.82 L Hgb 11.6 L Hct 36.4 MCV 95.3 MCH 30.3 MCHC 31.9 L RDW 19.6 H Plt Count 74 L MPV 10.0 Sodium 134 L Potassium 3.7 Chloride 94 L Carbon Dioxide 33 H Anion Gap 7 L BUN 65 H Creatinine 1.8 H Creat Clearance w eGFR 38.42 POC Glucometer 218 Random Glucose 114 H Calcium 8.0 L Total Bilirubin 1.2 H Direct Bilirubin AST 21 ALT 109 H Alkaline Phosphatase 98 Total Protein 5.5 L Albumin 2.7 L Heparin-Ind Plt Ab Scrn 04/13/18 04/13/18 06:00 06:04 WBC RBC Hgb Hct MCV MCH MCHC RDW Plt Count MPV Sodium Potassium Chloride Carbon Dioxide Anion Gap BUN Creatinine Creat Clearance w eGFR POC Glucometer 130 Random Glucose Calcium Total Bilirubin Direct Bilirubin 0.7 H AST ALT Alkaline Phosphatase Total Protein Albumin Heparin-Ind Plt Ab Scrn Active Medications Generic Name Dose Route Start Last Admin Trade Name Freq PRN Reason Stop Dose Admin Acetaminophen 650 mg 04/12/18 16:40 Tylenol - PO BID PRN PAIN LEVEL 7 - 10 Acetylcysteine 200 mg 04/10/18 12:00 04/12/18 19:53 Mucomyst 20 Oral / Inh Use Only* NEB Not Given RQID MANJU Albuterol Sulfate 1 amp 04/10/18 09:12 04/13/18 00:22 Ventolin 0.083% Nebulizer Soln - NEB 1 amp Q4H PRN Administration SHORTNESS OF BREATH Aspirin 81 mg 03/29/18 10:00 04/12/18 09:00 Ecotrin - PO 81 mg DAILY MANJU Administration Atorvastatin Calcium 40 mg 04/12/18 22:00 04/12/18 22:35 Lipitor - PO 40 mg HS MANJU Administration Benzocaine/Menthol 1 each 04/03/18 08:00 04/13/18 00:48 Cepacol Lozenge - MM 1 each PRN PRN Administration SORE THROAT Budesonide/Formoterol Fumarate 2 puff 04/02/18 22:00 04/12/18 22:39 Symbicort 80/4.5mcg - IH 2 puff BID MANJU Administration Cholecalciferol 2,000 unit 03/29/18 10:00 04/12/18 09:00 Vitamin D3 - PO 2,000 unit DAILY MANJU Administration Cyclobenzaprine HCl 5 mg 03/28/18 22:00 04/12/18 22:34 Flexeril - PO 5 mg BID [facility]U Administration Docusate Sodium 100 mg 03/28/18 14:00 04/13/18 06:01 Colace - PO 100 mg TID MANJU Administration Furosemide 80 mg 04/10/18 14:00 04/13/18 06:01 Lasix - PO 80 mg BID@0600,1400 MANJU Administration Insulin Aspart 1 vial 03/28/18 12:23 04/13/18 06:05 Novolog Vial Sliding Scale - SQ Not Given ACHS [facility] Protocol Meclizine HCl 12.5 mg 04/08/18 16:48 Antivert - PO Q8H PRN VERTIGO Melatonin 3 mg 04/12/18 22:00 04/12/18 23:10 Melatonin PO 3 mg HS MANJU Administration Metoprolol Succinate 50 mg 04/02/18 22:00 04/12/18 22:35 Toprol Xl - PO 50 mg BID [facility]U Administration Metoprolol Tartrate 5 mg 03/31/18 11:02 04/01/18 21:40 Lopressor Injection - IVPUSH 5 mg Q4H PRN Administration TACHYCARDIA Oxycodone HCl 2.5 mg 04/12/18 17:29 04/13/18 03:37 Roxicodone - PO 2.5 mg TID PRN Administration PAIN LEVEL 7 - 10 Psyllium Hydrophilic Mucilloid 5.85 gm 03/28/18 22:00 04/12/18 22:38 Metamucil (Sugar-Free) - PO Not Given BID MANJU Ranitidine HCl 150 mg 04/11/18 22:00 04/12/18 22:35 Zantac - PO 150 mg HS MANJU Administration Senna 2 tab 04/02/18 09:45 Senna - PO HS PRN CONSTIPATION ASSESSMENT/PLAN: Problem List - Problems (1) Acute exacerbation of CHF (congestive heart failure) Code(s): I50.9 - HEART FAILURE, UNSPECIFIED Qualifiers: Heart failure type: combined systolic and diastolic Qualified Code(s): I50.43 - Acute on chronic combined systolic (congestive) and diastolic ( congestive) heart failure (2) Influenza A Code(s): J10.1 - FLU DUE TO OTH IDENT INFLUENZA VIRUS W OTH RESP MANIFEST (3) Neck pain on right side Code(s): M54.2 - CERVICALGIA (4) Respiratory distress Code(s): R06.00 - DYSPNEA, UNSPECIFIED (5) COPD (chronic obstructive pulmonary disease) Code(s): J44.9 - CHRONIC OBSTRUCTIVE PULMONARY DISEASE, UNSPECIFIED (6) ERROL (acute kidney injury) Code(s): N17.9 - ACUTE KIDNEY FAILURE, UNSPECIFIED (7) Afib Code(s): I48.91 - UNSPECIFIED ATRIAL FIBRILLATION Qualifiers: Atrial fibrillation type: chronic Qualified Code(s): I48.2 - Chronic atrial fibrillation
[2018-04-13] MEDS: ASPIRIN COATED 81 MG TABLET.EC PO SCH (10:44)
[2018-04-13] MEDS: CHOLECALCIFEROL (VITAMIN D3) 1,000 UNIT TABLET (FP) PO SCH (10:48)
[2018-04-13] MEDS: CYCLOBENZAPRINE HCL 10 MG TABLET (FP) PO SCH (10:48)
[2018-04-13] MEDS: PSYLLIUM 5.85 GM PACKET PO SCH (10:48)
[2018-04-13] MEDS: BUDESONIDE/FORMETEROL FUMARATE 80/4.5 mcg INHALER IH SCH (10:48)
[2018-04-13 10:50] VITALS: TEMP 98
--- NOTE | 2018-04-13 11:46 | PN ---
Teaching Attending Note Name of Resident: Paula Yeung ATTENDING PHYSICIAN STATEMENT I saw and evaluated the patient. I reviewed the resident's note and discussed the case with the resident. I agree with the resident's findings and plan as documented with exceptions below. SUBJECTIVE: Patient seen and examined. Breathing well, no further falls or bleed, no new concerns. OBJECTIVE: Vital Signs Period Temp Pulse Resp BP Sys/El Pulse Ox Last 24 Hr 97.2 F-98.4 F 60-86 16-20 125-165/58-90 97 Intake & Output 04/10/18 04/11/18 04/12/18 04/13/18 23:59 23:59 23:59 23:59 Intake Total 550 600 760 100 Output Total 1600 1125 1500 200 Balance -1050 -525 -740 -100 Weight 192 lb 9.6 oz 191 lb 190 lb 3.2 oz 187 lb 5 oz General: sitting in bed in no acute distress Chest: bibasilar rales Abdomen:Soft, NT, Extremities: no edema, few ecchymotic areas on mid right leg, positive pulses, asymmetric (L>R) 1+ pedal edema Home Medications Medication Instructions Recorded Psyllium [Metamucil (Sugar-Free) -] 5.85 gm PO BID #1 bottle 06/02/17 Docusate Sodium [Colace -] 100 mg PO TID #90 capsule 09/22/17 Cholecalciferol (Vitamin D3) 2,000 unit PO DAILY #30 capsule 12/25/17 [Vitamin D3] Cyclobenzaprine HCl 5 mg PO BID #28 tablet 12/30/17 Pantoprazole Sodium [Protonix -] 40 mg PO DAILY #14 tablet.ec 02/22/18 Lactulose [Cephulac -] 10 - 20 gm PO DAILY PRN #1 bottle 03/23/18 Acetaminophen [Tylenol .Regular 650 mg PO BID PRN tablet 04/13/18 Strength -] Acetylcysteine Po/INH 20% 200 mg NEB RQID vial 04/13/18 [Mucomyst 20 Oral / INH Use Only*] Albuterol 0.083% Nebulizer Rosy 1 amp NEB Q4H PRN amp 04/13/18 [Ventolin 0.083% Nebulizer Soln -] Atorvastatin Ca [Lipitor] 40 mg PO HS tablet 04/13/18 Budesonide/Formeterol Fumarate 2 puff IH BID inhaler 04/13/18 [SYMBICORT 80/4.5mcg -] Furosemide [Lasix -] 80 mg PO BID@0600,1400 tablet 04/13/18 Insulin Sliding Scale [Novolog 1 vial SQ ACHS units 04/13/18 Vial Sliding Scale -] Meclizine HCl [Antivert -] 12.5 mg PO Q8H PRN tablet 04/13/18 Metoprolol Succinate [Toprol XL -] 50 mg PO BID tab.sr.24h 04/13/18 Metoprolol Tartrate Injection 5 mg IVPUSH Q4H PRN vial 04/13/18 [Lopressor Injection -] Ranitidine [Zantac -] 150 mg PO HS tablet 04/13/18 Sennosides [Senna -] 2 tab PO HS PRN tablet 04/13/18 oxyCODONE HCL [Roxicodone -] 2.5 mg PO TID PRN tablet MDD 3 04/13/18 Active Medications Acetaminophen (Tylenol -) 650 mg PO BID PRN PRN Reason: PAIN LEVEL 7 - 10 Acetylcysteine (Mucomyst 20 Oral / Inh Use Only*) 200 mg NEB RQID [facility] Last Admin: 04/12/18 19:53 Dose: Not Given Albuterol Sulfate (Ventolin 0.083% Nebulizer Soln -) 1 amp NEB Q4H PRN PRN Reason: SHORTNESS OF BREATH Last Admin: 04/13/18 00:22 Dose: 1 amp Atorvastatin Calcium (Lipitor -) 40 mg PO HS [facility] Last Admin: 04/12/18 22:35 Dose: 40 mg Benzocaine/Menthol (Cepacol Lozenge -) 1 each MM PRN PRN PRN Reason: SORE THROAT Last Admin: 04/13/18 00:48 Dose: 1 each Budesonide/Formoterol Fumarate (Symbicort 80/4.5mcg -) 2 puff IH BID [facility] Last Admin: 04/13/18 10:48 Dose: 2 puff Cholecalciferol (Vitamin D3 -) 2,000 unit PO DAILY [facility] Last Admin: 04/13/18 10:48 Dose: 2,000 unit Cyclobenzaprine HCl (Flexeril -) 5 mg PO BID [facility] Last Admin: 04/13/18 10:48 Dose: 5 mg Docusate Sodium (Colace -) 100 mg PO TID [facility] Last Admin: 04/13/18 06:01 Dose: 100 mg Furosemide (Lasix -) 80 mg PO BID@0600,1400 [facility] Last Admin: 04/13/18 06:01 Dose: 80 mg Insulin Aspart (Novolog Vial Sliding Scale -) 1 vial SQ [facility]; Protocol Last Admin: 04/13/18 11:34 Dose: Not Given Meclizine HCl (Antivert -) 12.5 mg PO Q8H PRN PRN Reason: VERTIGO Melatonin (Melatonin) [address] [facility] Last Admin: 04/12/18 23:10 Dose: 3 mg Metoprolol Succinate (Toprol Xl -) 50 mg PO BID [facility] Last Admin: 04/13/18 10:48 Dose: 50 mg Metoprolol Tartrate (Lopressor Injection -) 5 mg IVPUSH Q4H PRN PRN Reason: TACHYCARDIA Last Admin: 04/01/18 21:40 Dose: 5 mg Oxycodone HCl (Roxicodone -) 2.5 mg PO TID PRN PRN Reason: PAIN LEVEL 7 - 10 Last Admin: 04/13/18 03:37 Dose: 2.5 mg Psyllium Hydrophilic Mucilloid (Metamucil (Sugar-Free) -) 5.85 gm PO BID [facility] Last Admin: 04/13/18 10:48 Dose: Not Given Ranitidine HCl (Zantac -) [address] [facility] Last Admin: 04/12/18 22:35 Dose: 150 mg Senna (Senna -) 2 tab PO HS PRN PRN Reason: CONSTIPATION Laboratory Results - last 24 hr 04/10/18 04/12/18 04/12/18 12:42 11:41 16:21 WBC RBC Hgb Hct MCV MCH MCHC RDW Plt Count MPV Sodium Potassium Chloride Carbon Dioxide Anion Gap BUN Creatinine Creat Clearance w eGFR POC Glucometer 151 193 Random Glucose Calcium Total Bilirubin Direct Bilirubin AST ALT Alkaline Phosphatase Total Protein Albumin Heparin-Ind Plt Ab Scrn 1.178 H 04/12/18 04/13/18 04/13/18 22:33 06:00 06:00 WBC 10.7 H RBC 3.82 L Hgb 11.6 L Hct 36.4 MCV 95.3 MCH 30.3 MCHC 31.9 L RDW 19.6 H Plt Count 74 L MPV 10.0 Sodium 134 L Potassium 3.7 Chloride 94 L Carbon Dioxide 33 H Anion Gap 7 L BUN 65 H Creatinine 1.8 H Creat Clearance w eGFR 38.42 POC Glucometer 218 Random Glucose 114 H Calcium 8.0 L Total Bilirubin 1.2 H Direct Bilirubin AST 21 ALT 109 H Alkaline Phosphatase 98 Total Protein 5.5 L Albumin 2.7 L Heparin-Ind Plt Ab Scrn 04/13/18 04/13/18 04/13/18 06:00 06:04 11:23 WBC RBC Hgb Hct MCV MCH MCHC RDW Plt Count MPV Sodium Potassium Chloride Carbon Dioxide Anion Gap BUN Creatinine Creat Clearance w eGFR POC Glucometer 130 127 Random Glucose Calcium Total Bilirubin Direct Bilirubin 0.7 H AST ALT Alkaline Phosphatase Total Protein Albumin Heparin-Ind Plt Ab Scrn Microbiology 03/28/18 06:43 Blood - Peripheral Venous Blood Culture - Final NO GROWTH AFTER 5 DAYS INCUBATION 03/28/18 06:43 Blood - Peripheral Venous Blood Culture - Final NO GROWTH AFTER 5 DAYS INCUBATION 03/31/18 11:45 Urine - Urine Clean Catch Urine Culture - Final NO GROWTH OBTAINED 03/28/18 22:00 Urine For Antigen Detection Legionella Antigen - Final 03/28/18 22:00 Urine For Antigen Detection Streptococcus pneumoniae Antigen (M - Final ASSESSMENT AND PLAN: 62 year old male with significant past medical history of copd, cabgx3 2012, bio avr 2012, pad s/p b/l sfa occlusions, syst chf s/p medtronic icd, htn, hld, a-tach, CKD (baseline cr 2.2-2.4), admitted with shortness of breath. -fall again on 04/12/2018 -Lacunar infarcts (chronic and indeterminate age, ?not present on CT head on 04/07 ) -Thrombocytopenia, ?in the setting of sepsis/antibiotics/hepatic dysfunction, low suspicion of HIT -Acute hypoxic respiratory failure -Acute influenza A illness -Acute LLL HCAP with loculated pleural effusion -Acute on chronic systolic heart failure exacerbation -Abnormal LFTs, suspect passive hepatic congestion, improved -Fall on 04/07/2018, again overnight 04/12/2018 -Elevated troponin, suspect demand type II NSTEMI from above -Cardiomyopathy (EF 30-35%) s/p medtronic ICD -Atrial fibrillation/Flutter not on AC due to risk of falls -Left external carotid stenosis -HTN -HLD -Bioprosthetic AVR 2013 -CABG x 3 -PAD s/p bilateral SFA occlusion -CKD (baseline cr 2.2-2.4) -Anemia of chronic disease Plan: No further falls Confirmed with radiology, strokes present on CT head on 04/07, unchanged from then. Discussed with neurology/cardiology. CVA could be hypertensive or atherosclerotic but unable to r/o embolic with certainty. Prior CVAs likely contributory to falls CHADSVasc2 score 6. Patient planned to transfer to [facility] for EP study with possible Watchman's device and 6 weeks AC in a monitored setting given high fall risk and already high stroke risk given CHADSVASC2 score. Plan with risks and benefits have been discussed in detail with patient and niece by Dr. Greer who are agreable to transfer. HIT Ab screen positive Discussed with Dr. Delgado, JOJO sent. Discussed with Dr. Greer about suspicion for HIT, avoid all heparin products, and pending Serotonin release assay (sent this AM) As discussed with him, [facility] aware of pending studies and will address repeat studies there and follow up. Continue lasix/Metoprolol. ASA on hold. statin resumed, will need close LFTs monitoring. Dispo d/c to [facility] when bed available. All plan discussed with nursing, Dr. Greer and patient.
--- NOTE | 2018-04-13 11:49 | DS ---
Physical Exam: SUBJECTIVE: Patient seen and examined at bed side this morning. States he is bored and doesn't know what to do. Patient made aware that he is being transferred to [facility] for the Watchman procedure. He requested to call his Neice, . Skylar Owen. Spoke with her over the phone and told her patient has a bed in [facility], she verbalized understanding and is on the way to the hospital. OBJECTIVE: Vital Signs Period Temp Pulse Resp BP Sys/El Pulse Ox Last 24 Hr 97.2 F-98.4 F 60-86 16-20 125-165/58-90 95-97 PHYSICAL EXAM GENERAL: Middle aged obese male, lying in bed, Awake, alert, oriented x 3, nasal canula @ 2L. HEAD: Normal with no signs of trauma. EYES:EOM intact, no pallor or icterus. EARS, NOSE, THROAT: Ears normal, moist mucous membranes. NECK:Supple. LUNGS: B/L Breath sounds equal, bibasilar minimal crackles , No accessory muscle use. HEART: Irregularly irregular, rate, normal S1 and S2 with systolic murmur. ABDOMEN: Soft, non tender, no organomegaly. MUSCULOSKELETAL: Normal range of motion at all joints. No bony deformities or tenderness. No CVA tenderness. UPPER EXTREMITIES: 2+ pulses, warm, well-perfused. No cyanosis. No clubbing. No peripheral edema. LOWER EXTREMITIES: 2+ pulses, warm, well-perfused. No calf tenderness. Trace pitting edema b/l-improved. NEUROLOGICAL: No facial droop. Normal speech. Gait not observed. PSYCHIATRIC: Cooperative. Good eye contact. Appropriate mood and affect. SKIN: Warm, dry, normal turgor, no rashes or lesions noted, normal capillary refill. LABS Laboratory Results - last 24 hr 04/10/18 04/12/18 04/12/18 12:42 11:41 16:21 WBC RBC Hgb Hct MCV MCH MCHC RDW Plt Count MPV Sodium Potassium Chloride Carbon Dioxide Anion Gap BUN Creatinine Creat Clearance w eGFR POC Glucometer 151 193 Random Glucose Calcium Total Bilirubin Direct Bilirubin AST ALT Alkaline Phosphatase Total Protein Albumin Heparin-Ind Plt Ab Scrn 1.178 H 04/12/18 04/13/18 04/13/18 22:33 06:00 06:00 WBC 10.7 H RBC 3.82 L Hgb 11.6 L Hct 36.4 MCV 95.3 MCH 30.3 MCHC 31.9 L RDW 19.6 H Plt Count 74 L MPV 10.0 Sodium 134 L Potassium 3.7 Chloride 94 L Carbon Dioxide 33 H Anion Gap 7 L BUN 65 H Creatinine 1.8 H Creat Clearance w eGFR 38.42 POC Glucometer 218 Random Glucose 114 H Calcium 8.0 L Total Bilirubin 1.2 H Direct Bilirubin AST 21 ALT 109 H Alkaline Phosphatase 98 Total Protein 5.5 L Albumin 2.7 L Heparin-Ind Plt Ab Scrn 04/13/18 04/13/18 04/13/18 06:00 06:04 11:23 WBC RBC Hgb Hct MCV MCH MCHC RDW Plt Count MPV Sodium Potassium Chloride Carbon Dioxide Anion Gap BUN Creatinine Creat Clearance w eGFR POC Glucometer 130 127 Random Glucose Calcium Total Bilirubin Direct Bilirubin 0.7 H AST ALT Alkaline Phosphatase Total Protein Albumin Heparin-Ind Plt Ab Scrn HOSPITAL COURSE: Date of Admission:03/28/18 Date of Discharge: 04/13/18 Imaging: CT chest: Partially loculated left pleural effusion with atelectactic changes of the lower lobe. Cardiomegaly and possible mild congestion. Prominent mediastinal lymph nodes. Trace ascites. Abdominal CT: Findings consistent with advanced Hepatocellular disease. Trace ascites. 04/08/18: ultrasound of abdomen: Fatty liver vs Hepatocellular disease. Small right renal cortical cyst measuring 9mm. Right pleural effusion. Carotid ultrasound 03/13/18: Left external carotid stenosis > 90 % HEAD CT 04/13/18: CT scan of the head without intravenous contrast. . To prior examination dated 04/12/2018. There remains moderate volume loss, ventricular dilatation and periventricular chronic microvascular ischemic disease changes. Faint focal low-attenuation density again noted in the left thalamus suggestive of a lacunar infarct, of indeterminate age. Otherwise, no mass lesion or intracranial hemorrhage are identified The calvarium is intact IMPRESSION: No significant interval change. Left thalamic lacunar infarct, of indeterminate is again noted. Normal interval gross acute infarct is identified. ASSESSMENT/PLAN: Patient is a 62 year old male with significant past medical history of COPD on 3L home O2, pEFHF, CAD, ICD placement, PAD, DM, Atrial fibrillation not on A/c due to risk of fall was brought in to the ED by family members due to shortness of breath. On arrival to the ED, patient was hypotxic to 92 % @ 3L then was placed in NRB with improvement in saturation. Labs were significant for leukocytosis of 13.1; Lactic acid of 2.1. Influenza A positive, CXR showed Left infiltrate. Patient was admitted in tele with the diagnosis of Acute hypoxic respiratory failure secondary to Influenza/Community Acquired pneumonia Patient was treated with Tamiflu and completed course of IV Zosyn, completed steroid taper and his symptoms improved. Patient shortness of breath was also likely due to acute on chronic systolic CHF exacerbation. He was aggressively diuresed with IV lasix 40mg BID with close monitoring of his creatinine. Now the swelling of the legs and shortness of breath has improved. Atrial flutter on EKG: CHADSVASCs score of 4. Not on anticoagulation at home due to hx of frequent falls. Had episodes of Afib with RVR so changed Coreg to Metoprolol 50mg BID with good heart rate control Patient has a hx of frequent falls (multiple falls at home). 2 falls while admitted. states he gets dizziness and vertigo. started on Meclizine 12.5 mg TID and dizziness resolved. Head CT x 3, report as above, Left thalamic lacunar infarct, of indeterminate timing. Neurology consulted, no further management, as per neuro. Carotid ultrasound 03/13/18: Left external carotid stenosis > 90 % which is unlikely cause of his fall. Vascular surgeon was consulted, no interventions needed at this time. Old Left thalamic infarct -Unknown if this could be a factor for frequent falls. ? cardioembolic stroke. CHADSVASCs score of 4, however, due to frequent falls, not a candidate for oil heaterman anticoagulation. As per cardiology, Watchman device would be a reasonable consideration hence transfer to [facility] initiated. Patient had suicidal ideation, was placed in 1:1, psych consulted. Upon reevaluation, patient didn't have any suicidal ideation and 1:1 discontinued. Unsure if he has mental capacity to decide. Pending Psych eval. For his current medical management, spoke with HCP (Ms. Skylar Owen) who is aware of the medical condition and plan. Transaminitis could be from hepatic congestion from CHF-now resolved. Not a candidate for MRCP due to ICD placement. Alcohol cessation counseling. Elevated troponins likely from Demand ischemia-troponins trended down. Prolonged Qtc 582 on admission Normocytic anemia: H/H stable , didn't require any blood transfusion. Code status: Full Code Plan of care explained to the patient. He wanted the physicians to discuss his medical treatment with his neice (Ms. Skylar Owen). Spoke to her over the phone. She verbalized understanding. Patient is now being transferred to [place] for a watchman procedure. Accepting physician is Dr. Han at [facility]. Minutes to complete discharge: 45 <Paula Yeung - Last Filed: 04/13/18 12:18> Physical Exam: Patient was noted with thrombocytopenia, dipped to 60s. HIT antibody screen was positive 1.17, serotonin release assay has been sent results of which are currently pending, Dr. Greer is aware of the same and will have [facility] providers follow up on results and order as needed. Heparin products were avoided. He also received spleen ultrasound that was non concerning. He was also continued on aggressive diuresis during his stay as well. <Aníbal Mathias - Last Filed: 04/13/18 17:35> Discharge Summary Reason For Visit: ACUTE ON CRHONIC CHF, FLU TYPE A,RESPIRATORY DISTR Current Active Problems Abnormal liver enzymes (Acute) Acute exacerbation of CHF (congestive heart failure) (Acute) Carotid stenosis (Acute) Influenza A (Acute) Lactate blood increase (Acute) Neck pain on right side (Acute) Respiratory distress (Acute) Troponin I above reference range (Acute) COPD (chronic obstructive pulmonary disease) (Chronic) - Home Medications Comprehensive Discharge Medication List: Ambulatory Orders Psyllium [Metamucil (Sugar-Free) -] 5.85 gm PO BID #1 bottle 06/02/17 Docusate Sodium [Colace -] 100 mg PO TID #90 capsule 09/22/17 Cholecalciferol (Vitamin D3) [Vitamin D3] 2,000 unit PO DAILY #30 capsule Cyclobenzaprine HCl 5 mg PO BID #28 tablet 12/30/17 Pantoprazole Sodium [Protonix -] 40 mg PO DAILY #14 tablet.ec 02/22/18 Lactulose [Cephulac -] 10 - 20 gm PO DAILY PRN #1 bottle 03/23/18 Acetaminophen [Tylenol .Regular Strength -] 650 mg PO BID PRN tablet 04/13/18 Acetylcysteine Po/INH 20% [Mucomyst 20 Oral / INH Use Only*] 200 mg NEB RQID vial 04/13/18 Albuterol 0.083% Nebulizer Rosy [Ventolin 0.083% Nebulizer Soln -] 1 amp NEB Q4H PRN amp 04/13/18 Atorvastatin Ca [Lipitor] 40 mg PO HS tablet 04/13/18 Budesonide/Formeterol Fumarate [SYMBICORT 80/4.5mcg -] 2 puff IH BID inhaler Furosemide [Lasix -] 80 mg PO BID@0600,1400 tablet 04/13/18 Insulin Sliding Scale [Novolog Vial Sliding Scale -] 1 vial SQ ACHS units 04/13 Meclizine HCl [Antivert -] 12.5 mg PO Q8H PRN tablet 04/13/18 Metoprolol Succinate [Toprol XL -] 50 mg PO BID tab.sr.24h 04/13/18 Metoprolol Tartrate Injection [Lopressor Injection -] 5 mg IVPUSH Q4H PRN vial 04/13/18 Ranitidine [Zantac -] 150 mg PO HS tablet 04/13/18 Sennosides [Senna -] 2 tab PO HS PRN tablet 04/13/18 oxyCODONE HCL [Roxicodone -] 2.5 mg PO TID PRN tablet MDD 3 04/13/18 <Paula Yeung - Last Filed: 04/13/18 12:18> <Aníbal Mathias - Last Filed: 04/13/18 17:35> Condition: Guarded - Instructions Referrals: Kanu Truong MD [Primary Care Provider] - Pio Greer MD [Staff Physician] - 2 Weeks Disposition: TRANSFER ACUTE CARE/OTHER HOSP Problem List - Problems (1) Acute exacerbation of CHF (congestive heart failure) Code(s): I50.9 - HEART FAILURE, UNSPECIFIED Qualifiers: Heart failure type: combined systolic and diastolic Qualified Code(s): I50.43 - Acute on chronic combined systolic (congestive) and diastolic ( congestive) heart failure (2) Influenza A Code(s): J10.1 - FLU DUE TO OTH IDENT INFLUENZA VIRUS W OTH RESP MANIFEST (3) Neck pain on right side Code(s): M54.2 - CERVICALGIA (4) Respiratory distress Code(s): R06.00 - DYSPNEA, UNSPECIFIED (5) COPD (chronic obstructive pulmonary disease) Code(s): J44.9 - CHRONIC OBSTRUCTIVE PULMONARY DISEASE, UNSPECIFIED (6) ERROL (acute kidney injury) Code(s): N17.9 - ACUTE KIDNEY FAILURE, UNSPECIFIED (7) Afib Code(s): I48.91 - UNSPECIFIED ATRIAL FIBRILLATION Qualifiers: Atrial fibrillation type: chronic Qualified Code(s): I48.2 - Chronic atrial fibrillation <Paula Yeung - Last Filed: 04/13/18 12:18> This patient is new to me today: Yes Date on this admission: 04/13/18 Emergency Visit: No Critical Care patient: No - Discharge Referral Referred to [facility] No <Paula Yeung - Last Filed: 04/13/18 12:18>
[2018-04-13 12:37] VITALS: BP 139/74; PULSE 67
--- NOTE | 2018-04-13 13:20 | PN ---
Progress Note, Physician History of Present Illness: pulmonary alert,no distress,-cp -sob. pt to be transferred to [facility] for watchman procedure. - Current Medication List Current Medications: Active Medications Acetaminophen (Tylenol -) 650 mg PO BID PRN PRN Reason: PAIN LEVEL 7 - 10 Acetylcysteine (Mucomyst 20 Oral / Inh Use Only*) 200 mg NEB RQID [facility] Last Admin: 04/13/18 12:32 Dose: 200 mg Albuterol Sulfate (Ventolin 0.083% Nebulizer Soln -) 1 amp NEB Q4H PRN PRN Reason: SHORTNESS OF BREATH Last Admin: 04/13/18 12:32 Dose: 1 amp Atorvastatin Calcium (Lipitor -) 40 mg PO HS [facility] Last Admin: 04/12/18 22:35 Dose: 40 mg Benzocaine/Menthol (Cepacol Lozenge -) 1 each MM PRN PRN PRN Reason: SORE THROAT Last Admin: 04/13/18 00:48 Dose: 1 each Budesonide/Formoterol Fumarate (Symbicort 80/4.5mcg -) 2 puff IH BID [facility] Last Admin: 04/13/18 10:48 Dose: 2 puff Cholecalciferol (Vitamin D3 -) 2,000 unit PO DAILY [facility] Last Admin: 04/13/18 10:48 Dose: 2,000 unit Cyclobenzaprine HCl (Flexeril -) 5 mg PO BID [facility] Last Admin: 04/13/18 10:48 Dose: 5 mg Docusate Sodium (Colace -) 100 mg PO TID [facility] Last Admin: 04/13/18 06:01 Dose: 100 mg Furosemide (Lasix -) 80 mg PO BID@0600,1400 [facility] Last Admin: 04/13/18 06:01 Dose: 80 mg Insulin Aspart (Novolog Vial Sliding Scale -) 1 vial SQ ACHS [facility]; Protocol Last Admin: 04/13/18 11:34 Dose: Not Given Meclizine HCl (Antivert -) 12.5 mg PO Q8H PRN PRN Reason: VERTIGO Melatonin (Melatonin) 3 mg PO HS [facility] Last Admin: 04/12/18 23:10 Dose: 3 mg Metoprolol Succinate (Toprol Xl -) 50 mg PO BID [facility] Last Admin: 04/13/18 10:48 Dose: 50 mg Metoprolol Tartrate (Lopressor Injection -) 5 mg IVPUSH Q4H PRN PRN Reason: TACHYCARDIA Last Admin: 04/01/18 21:40 Dose: 5 mg Oxycodone HCl (Roxicodone -) 2.5 mg PO TID PRN PRN Reason: PAIN LEVEL 7 - 10 Last Admin: 04/13/18 03:37 Dose: 2.5 mg Psyllium Hydrophilic Mucilloid (Metamucil (Sugar-Free) -) 5.85 gm PO BID [facility] Last Admin: 04/13/18 10:48 Dose: Not Given Ranitidine HCl (Zantac -) 150 mg PO HS [facility] Last Admin: 04/12/18 22:35 Dose: 150 mg Senna (Senna -) 2 tab PO HS PRN PRN Reason: CONSTIPATION - Objective Vital Signs: Vital Signs Temperature 98.0 F 04/13/18 12:00 Pulse Rate 67 04/13/18 12:00 Respiratory Rate 18 04/13/18 12:00 Blood Pressure 139/74 04/13/18 12:00 O2 Sat by Pulse Oximetry (%) 95 04/13/18 10:00 Constitutional: Yes: Well Nourished, Calm Eyes: Yes: WNL HENT: Yes: WNL Neck: Yes: WNL Cardiovascular: Yes: Pulse Irregular, S1, S2 Respiratory: Yes: Rhonchi (few rhonchi) Gastrointestinal: Yes: Normal Bowel Sounds, Soft Extremities: Yes: WNL Edema: Yes Labs: CBC, BMP 04/13/18 06:00 04/13/18 06:00 INR, PTT INR 1.28 (0.83-1.09) H 04/09/18 06:30 Problem List - Problems (1) Acute on chronic respiratory failure with hypoxemia Code(s): J96.21 - ACUTE AND CHRONIC RESPIRATORY FAILURE WITH HYPOXIA (2) S/P CABG x 3 Code(s): Z95.1 - PRESENCE OF AORTOCORONARY BYPASS GRAFT (4) Troponin I above reference range Code(s): R74.8 - ABNORMAL LEVELS OF OTHER SERUM ENZYMES (5) Acute exacerbation of CHF (congestive heart failure) Code(s): I50.9 - HEART FAILURE, UNSPECIFIED Qualifiers: Heart failure type: combined systolic and diastolic Qualified Code(s): I50.43 - Acute on chronic combined systolic (congestive) and diastolic ( congestive) heart failure (6) Influenza A Code(s): J10.1 - FLU DUE TO OTH IDENT INFLUENZA VIRUS W OTH RESP MANIFEST (7) Afib Code(s): I48.91 - UNSPECIFIED ATRIAL FIBRILLATION Qualifiers: Atrial fibrillation type: chronic Qualified Code(s): I48.2 - Chronic atrial fibrillation (8) COPD exacerbation Code(s): J44.1 - CHRONIC OBSTRUCTIVE PULMONARY DISEASE W (ACUTE) EXACERBATION (9) Cough Code(s): R05 - COUGH (10) Pneumonia Code(s): J18.9 - PNEUMONIA, UNSPECIFIED ORGANISM (11) S/P AVR Code(s): Z95.2 - PRESENCE OF PROSTHETIC HEART VALVE (12) Shortness of breath Code(s): R06.02 - SHORTNESS OF BREATH (13) Weakness Code(s): R53.1 - WEAKNESS (14) CAD (coronary artery disease) Code(s): I25.10 - ATHSCL HEART DISEASE OF [place] CORONARY ARTERY W/O ANG PCTRS Qualifiers: [place] vs. transplanted heart: lummi heart Associated angina: without angina (15) CHF (congestive heart failure) Code(s): I50.9 - HEART FAILURE, UNSPECIFIED Qualifiers: Heart failure type: systolic Heart failure chronicity: chronic Qualified Code(s): I50.22 - Chronic systolic (congestive) heart failure (16) Chronic renal insufficiency, stage III (moderate) Code(s): N18.3 - CHRONIC KIDNEY DISEASE, STAGE 3 (MODERATE) (17) Coronary artery disease Code(s): I25.10 - ATHSCL HEART DISEASE OF [place] CORONARY ARTERY W/O ANG PCTRS Qualifiers: Coronary Disease-Associated Artery/Lesion type: bypass graft, other Associated angina: with other forms of angina Qualified Code(s): I25.798 - Atherosclerosis of other coronary artery bypass graft(s) with other forms of angina pectoris (18) HTN (hypertension) Code(s): I10 - ESSENTIAL (PRIMARY) HYPERTENSION Qualifiers: Hypertension type: essential hypertension Qualified Code(s): I10 - Essential (primary) hypertension (19) Peripheral vascular disease Code(s): I73.9 - PERIPHERAL VASCULAR DISEASE, UNSPECIFIED (20) Lactate blood increase Code(s): R79.89 - OTHER SPECIFIED ABNORMAL FINDINGS OF BLOOD CHEMISTRY Assessment/Plan IMP ACUTE ON CHRONIC HYPOXEMIC RESPIRATORY FAILURE IMPROVING ACUTE ON CHRONIC CHF S/P AICD COPD O2 DEPENDENT + TROPONIN ASHD S/P CABG S/P AVR ? PNEUMONIA ATYPICAL CP ACUTE ON CKD WORSENING PULMONARY HTN INFLUENZA A AFIB ELEVATED LACTATE LEVEL IMPROVED PLEURAL EFFUSION MEDIASTINAL ADENOPATHY LIKELY REACTIVE PLAN LASIX PO O2 INHALED BRONCHODILATORS MONITOR LYTES,RENAL FUNCTION F/U CHEST CT 4-6 WKS TRANSFER TO [facility] FOR WATCHMAN PROCEDURE DR [place] Problem List - Problems (1) Acute on chronic respiratory failure with hypoxemia Code(s): J96.21 - ACUTE AND CHRONIC RESPIRATORY FAILURE WITH HYPOXIA (2) S/P CABG x 3 Code(s): Z95.1 - PRESENCE OF AORTOCORONARY BYPASS GRAFT (4) Troponin I above reference range Code(s): R74.8 - ABNORMAL LEVELS OF OTHER SERUM ENZYMES (5) Acute exacerbation of CHF (congestive heart failure) Code(s): I50.9 - HEART FAILURE, UNSPECIFIED Qualifiers: (6) Influenza A Code(s): J10.1 - FLU DUE TO OTH IDENT INFLUENZA VIRUS W OTH RESP MANIFEST (7) Afib Code(s): I48.91 - UNSPECIFIED ATRIAL FIBRILLATION Qualifiers: Atrial fibrillation type: chronic Qualified Code(s): I48.2 - Chronic atrial fibrillation (8) COPD exacerbation Code(s): J44.1 - CHRONIC OBSTRUCTIVE PULMONARY DISEASE W (ACUTE) EXACERBATION (9) Cough Code(s): R05 - COUGH (10) Pneumonia Code(s): J18.9 - PNEUMONIA, UNSPECIFIED ORGANISM (11) S/P AVR Code(s): Z95.2 - PRESENCE OF PROSTHETIC HEART VALVE (12) Shortness of breath Code(s): R06.02 - SHORTNESS OF BREATH (13) Weakness Code(s): R53.1 - WEAKNESS (14) CAD (coronary artery disease) Code(s): I25.10 - ATHSCL HEART DISEASE OF [place] CORONARY ARTERY W/O ANG PCTRS Qualifiers: [place] vs. transplanted heart: [place] heart Associated angina: without angina (15) CHF (congestive heart failure) Code(s): I50.9 - HEART FAILURE, UNSPECIFIED Qualifiers: Heart failure type: systolic Heart failure chronicity: chronic Qualified Code(s): I50.22 - Chronic systolic (congestive) heart failure (16) Chronic renal insufficiency, stage III (moderate) Code(s): N18.3 - CHRONIC KIDNEY DISEASE, STAGE 3 (MODERATE) (17) Coronary artery disease Code(s): I25.10 - ATHSCL HEART DISEASE OF [place] CORONARY ARTERY W/O ANG PCTRS Qualifiers: Coronary Disease-Associated Artery/Lesion type: bypass graft, other Associated angina: with other forms of angina Qualified Code(s): I25.798 - Atherosclerosis of other coronary artery bypass graft(s) with other forms of angina pectoris (18) HTN (hypertension) Code(s): I10 - ESSENTIAL (PRIMARY) HYPERTENSION Qualifiers: Hypertension type: essential hypertension Qualified Code(s): I10 - Essential (primary) hypertension (19) Peripheral vascular disease Code(s): I73.9 - PERIPHERAL VASCULAR DISEASE, UNSPECIFIED (20) Lactate blood increase Code(s): R79.89 - OTHER SPECIFIED ABNORMAL FINDINGS OF BLOOD CHEMISTRY
--- NOTE | 2018-04-13 14:35 | PN ---
Progress Note, Physician History of Present Illness: Pt seen and examined at bedside. He is awake and appears comfortable. He denies increased shortness of breath. - Current Medication List Current Medications: Active Medications Acetaminophen (Tylenol -) 650 mg PO BID PRN PRN Reason: PAIN LEVEL 7 - 10 Acetylcysteine (Mucomyst 20 Oral / Inh Use Only*) 200 mg NEB RQID [facility] Last Admin: 04/13/18 12:32 Dose: 200 mg Albuterol Sulfate (Ventolin 0.083% Nebulizer Soln -) 1 amp NEB Q4H PRN PRN Reason: SHORTNESS OF BREATH Last Admin: 04/13/18 12:32 Dose: 1 amp Atorvastatin Calcium (Lipitor -) 40 mg PO HS [facility] Last Admin: 04/12/18 22:35 Dose: 40 mg Benzocaine/Menthol (Cepacol Lozenge -) 1 each MM PRN PRN PRN Reason: SORE THROAT Last Admin: 04/13/18 00:48 Dose: 1 each Budesonide/Formoterol Fumarate (Symbicort 80/4.5mcg -) 2 puff IH BID [facility] Last Admin: 04/13/18 10:48 Dose: 2 puff Cholecalciferol (Vitamin D3 -) 2,000 unit PO DAILY [facility] Last Admin: 04/13/18 10:48 Dose: 2,000 unit Cyclobenzaprine HCl (Flexeril -) 5 mg PO BID [facility] Last Admin: 04/13/18 10:48 Dose: 5 mg Docusate Sodium (Colace -) 100 mg PO TID [facility] Last Admin: 04/13/18 14:04 Dose: Not Given Furosemide (Lasix -) 80 mg PO BID@0600,1400 [facility] Last Admin: 04/13/18 14:03 Dose: 80 mg Insulin Aspart (Novolog Vial Sliding Scale -) 1 vial SQ ACHS [facility]; Protocol Last Admin: 04/13/18 11:34 Dose: Not Given Meclizine HCl (Antivert -) 12.5 mg PO Q8H PRN PRN Reason: VERTIGO Melatonin (Melatonin) 3 mg PO HS [facility] Last Admin: 04/12/18 23:10 Dose: 3 mg Metoprolol Succinate (Toprol Xl -) 50 mg PO BID [facility] Last Admin: 04/13/18 10:48 Dose: 50 mg Metoprolol Tartrate (Lopressor Injection -) 5 mg IVPUSH Q4H PRN PRN Reason: TACHYCARDIA Last Admin: 04/01/18 21:40 Dose: 5 mg Oxycodone HCl (Roxicodone -) 2.5 mg PO TID PRN PRN Reason: PAIN LEVEL 7 - 10 Last Admin: 04/13/18 03:37 Dose: 2.5 mg Psyllium Hydrophilic Mucilloid (Metamucil (Sugar-Free) -) 5.85 gm PO BID [facility] Last Admin: 04/13/18 10:48 Dose: Not Given Ranitidine HCl (Zantac -) 150 mg PO HS [facility] Last Admin: 04/12/18 22:35 Dose: 150 mg Senna (Senna -) 2 tab PO HS PRN PRN Reason: CONSTIPATION - Objective Vital Signs: Vital Signs Temperature 98.0 F 04/13/18 12:00 Pulse Rate 67 04/13/18 12:00 Respiratory Rate 18 04/13/18 12:00 Blood Pressure 139/74 04/13/18 12:00 O2 Sat by Pulse Oximetry (%) 95 04/13/18 10:00 Constitutional: Yes: Calm Eyes: Yes: Conjunctiva Clear HENT: Yes: Atraumatic Cardiovascular: Yes: S1, S2 Respiratory: Yes: On Nasal O2 Gastrointestinal: Yes: Soft Genitourinary: Yes: WNL Musculoskeletal: Yes: WNL Edema: Yes Edema: LLE: 2+, RLE: 2+ Neurological: Yes: Oriented Psychiatric: Yes: Oriented Labs: CBC, BMP 04/13/18 06:00 04/13/18 06:00 INR, PTT INR 1.28 (0.83-1.09) H 04/09/18 06:30 Problem List - Problems (1) Acute exacerbation of CHF (congestive heart failure) Code(s): I50.9 - HEART FAILURE, UNSPECIFIED Qualifiers: Heart failure type: combined systolic and diastolic Qualified Code(s): I50.43 - Acute on chronic combined systolic (congestive) and diastolic ( congestive) heart failure (2) Chronic kidney disease (CKD) Code(s): N18.9 - CHRONIC KIDNEY DISEASE, UNSPECIFIED Qualifiers: Chronic kidney disease stage: stage 3 (moderate) Qualified Code(s): N18.3 - Chronic kidney disease, stage 3 (moderate) Assessment/Plan Current Medications Generic Name Dose Route Start Last Admin Trade Name Freq PRN Reason Stop Dose Admin Acetaminophen 650 mg 04/12/18 16:40 Tylenol - PO BID PRN PAIN LEVEL 7 - 10 Acetylcysteine 200 mg 04/10/18 12:00 04/13/18 12:32 Mucomyst 20 Oral / Inh Use Only* NEB 200 mg RQID [facility] Administration Albuterol Sulfate 1 amp 04/10/18 09:12 04/13/18 12:32 Ventolin 0.083% Nebulizer Soln - NEB 1 amp Q4H PRN Administration SHORTNESS OF BREATH Atorvastatin Calcium 40 mg 04/12/18 22:00 04/12/18 22:35 Lipitor - PO 40 mg HS [facility] Administration Benzocaine/Menthol 1 each 04/03/18 08:00 04/13/18 00:48 Cepacol Lozenge - MM 1 each PRN PRN Administration SORE THROAT Budesonide/Formoterol Fumarate 2 puff 04/02/18 22:00 04/13/18 10:48 Symbicort 80/4.5mcg - IH 2 puff BID [facility] Administration Cholecalciferol 2,000 unit 03/29/18 10:00 04/13/18 10:48 Vitamin D3 - PO 2,000 unit DAILY [facility] Administration Cyclobenzaprine HCl 5 mg 03/28/18 22:00 04/13/18 10:48 Flexeril - PO 5 mg BID [facility] Administration Docusate Sodium 100 mg 03/28/18 14:00 04/13/18 14:04 Colace - PO Not Given TID [facility] Furosemide 80 mg 04/10/18 14:00 04/13/18 14:03 Lasix - PO 80 mg BID@0600,1400 [facility] Administration Insulin Aspart 1 vial 03/28/18 12:23 04/13/18 11:34 Novolog Vial Sliding Scale - SQ Not Given ACHS [facility] Protocol Meclizine HCl 12.5 mg 04/08/18 16:48 Antivert - PO Q8H PRN VERTIGO Melatonin 3 mg 04/12/18 22:00 04/12/18 23:10 Melatonin PO 3 mg HS [facility] Administration Metoprolol Succinate 50 mg 04/02/18 22:00 04/13/18 10:48 Toprol Xl - PO 50 mg BID [facility] Administration Metoprolol Tartrate 5 mg 03/31/18 11:02 04/01/18 21:40 Lopressor Injection - IVPUSH 5 mg Q4H PRN Administration TACHYCARDIA Oxycodone HCl 2.5 mg 04/12/18 17:29 04/13/18 03:37 Roxicodone - PO 2.5 mg TID PRN Administration PAIN LEVEL 7 - 10 Psyllium Hydrophilic Mucilloid 5.85 gm 03/28/18 22:00 04/13/18 10:48 Metamucil (Sugar-Free) - PO Not Given BID [facility] Ranitidine HCl 150 mg 04/11/18 22:00 04/12/18 22:35 Zantac - PO 150 mg HS [facility] Administration Senna 2 tab 04/02/18 09:45 Senna - PO HS PRN CONSTIPATION Impression 1. CKD 2. proteinuria 3. CAD 4. CHF 5. COPD 6. DM 7. HTN 8. azotemia/fior 9. anemia Plan - cont diuretics - monitor renal function - pt being transferred to tertiary care facility - restrict fluid intake, discussed with pt - monitor pulse ox - will follow
== END 2018-04-13 14:38 | disposition short-term general hospital (02) | DRG 871 ==
LOC: JER 05:24 → JERBED 08:43 → J4S 17:20
PROVIDERS: ADMIT Internal Medicine; ATTEND Hospitalist
DX: A41.9 Sepsis, unspecified organism (principal); J96.21 Acute and chronic respiratory failure with hypoxia; I50.23 Acute on chronic systolic (congestive) heart failure; J11.00 Influenza due to unidentified influenza virus with unspecified type of pneumonia; I21.A1 Myocardial infarction type 2; J18.9 Pneumonia, unspecified organism; I13.0 Hypertensive heart and chronic kidney disease with heart failure and stage 1 through stage 4 chronic kidney disease, or unspecified chronic kidney disease; N17.9 Acute kidney failure, unspecified; E87.1 Hypo-osmolality and hyponatremia; J44.1 Chronic obstructive pulmonary disease with (acute) exacerbation; I48.92 Unspecified atrial flutter; E87.2 Acidosis; N18.3 Chronic kidney disease, stage 3 (moderate); E11.22 Type 2 diabetes mellitus with diabetic chronic kidney disease; I65.29 Occlusion and stenosis of unspecified carotid artery; D69.6 Thrombocytopenia, unspecified; D64.9 Anemia, unspecified; N18.9 Chronic kidney disease, unspecified; I34.0 Nonrheumatic mitral (valve) insufficiency; I27.20 Pulmonary hypertension, unspecified; I48.2 Chronic atrial fibrillation; I25.10 Atherosclerotic heart disease of native coronary artery without angina pectoris; K59.00 Constipation, unspecified; Z95.1 Presence of aortocoronary bypass graft
CPT/HCPCS: 36415; 70450-TC; 71045-TC-FY; 71250-TC; 72125-TC; 72192-TC; 74150-TC; 76705-TC; 80048; 80053; 80074; 80076; 81003; 81015; 82140; 82248; 82542; 82550; 82607; 82728; 82746; 82803; 82962; 83516; 83540; 83550; 83605; 83615; 83735; 83880; 84100; 84439; 84443; 84481; 84484; 85025; 85027; 85610; 86022; 86038; 87040; 87086; 87804; 87899; 93005; 93010; 93970-TC; 94640; 94761; 97116-GP; 97161-GP; 99285-25; J0131; J1644; J7030

== ENCOUNTER 2018-04-27 19:36 | Inpatient (IN) | payer OTHER ==
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
[2018-04-27] MEDS ORDERED: methylPREDNISolone NA SUCC 125 MG/2 ML VIAL IVPUSH ONE (21:19)
[2018-04-27] MEDS ORDERED: ALBUTEROL SO4 2.5/IPRATROPIUM 0.5 INH SOL 3 ML VIAL.NEB. NEB ONE ×2 (21:20→21:59)
[2018-04-27 21:54] LABS: BASO % 0.8 % (0-2.0); EOS % 2.7 % (0-4.5); HEMATOCRIT 33.8 % (35.4-49); HEMOGLOBIN 11.1 GM/dL (11.7-16.9); LYMPH % 9.3 % (8-40); MCHC 32.8 g/dl (32.0-35.9); MEAN CELL VOLUME 94.6 fl (80-96); MEAN PLT VOLUME 8.9 fl (7.5-11.1); MONO % 9.8 % (3.8-10.2); NEUT % 77.4 % (42.8-82.8); PLATELET COUNT 224 K/MM3 (134-434); RBC 3.57 M/mm3 (4.00-5.60); RDW 18.3 % (11.9-15.9); WHITE BLOOD COUNT 8.5 K/mm3 (4.0-10.0)
[2018-04-27] MEDS ORDERED: methylPREDNISolone NA SUCC 125 MG/2 ML VIAL ONE (22:00)
[2018-04-27 22:20] LABS: URINE APPEARANCE CLEAR; URINE BILIRUBIN NEGATIVE (<2.0 mg/dL); URINE COLOR AMBER; URINE GLUCOSE (UA) NEGATIVE (NEGATIVE); URINE KETONE NEGATIVE (NEGATIVE); URINE LEUK ESTERASE NEGATIVE (NEGATIVE); URINE NITRITE NEGATIVE (NEGATIVE); URINE PROTEIN 3+ (NEGATIVE); URINE UROBILINOGEN 4.0 E.U/dl mg/dL (0.2-1.0)
[2018-04-27 22:35] LABS: EPI CELLS RARE /HPF (FEW); INR 1.13 (0.83-1.09); PROTHROMBIN TIME (PATIENT) 13.3 SEC (9.7-13.0); URINE HYALINE CAST 6 /lpf; URINE MUCUS RARE
[2018-04-27 22:38] LABS: ACTIVATED PTT 34.1 SECONDS (25.2-36.5)
[2018-04-27 22:54] LABS: ARTERIAL BLOOD GAS BASE EXCESS 3.5 meq/l (-2-2); ARTERIAL BLOOD GAS PCO2 35.9 mmHg (35-45); ARTERIAL BLOOD GAS pH 7.48 (7.35-7.45); CARBOXYHEMOGLOBIN 1.3 gm% (0.5-2.0)
[2018-04-27 23:13] LABS: ALBUMIN 2.4 g/dl (3.4-5.0); ALK PHOS 106 U/L (45-117); ALLENS TEST POSITIVE; ANION GAP 7 MMOL/L (8-16); BILIRUBIN,TOTAL 0.5 mg/dL (0.2-1); BLOOD UREA NITROGEN 36 mg/dL (7-18); CALCIUM 7.9 mg/dL (8.5-10.1); CHLORIDE 101 mmol/L (98-107); CO2 27 mmol/L (21-32); CREATININE 1.8 mg/dL (0.55-1.3); GLUCOSE,RANDOM 82 mg/dL (74-106); MAGNESIUM 2.3 mg/dL (1.8-2.4); N-TERMINAL BNP 30802.4 pg/ml (5-125); SGOT/AST 24 U/L (15-37); SGPT/ALT 12 U/L (13-61); SODIUM 135 mmol/L (136-145); TOT PROT 6.4 g/dl (6.4-8.2)
[2018-04-27 23:17] LABS: ARTERIAL BLOOD GAS PO2 46.2 mmHg (80-100)
[2018-04-27] MEDS ORDERED: FUROSEMIDE 40 MG/4 ML INJECTABLE VIAL IVPUSH ONE (23:47)
[2018-04-27] MEDS ORDERED: FUROSEMIDE 40 MG/4 ML INJECTABLE VIAL ONE (23:59)
--- NOTE | 2018-04-28 01:26 | PN ---
Teaching Attending Note Name of Resident: Emile Hartley ATTENDING PHYSICIAN STATEMENT I saw and evaluated the patient. I reviewed the resident's note and discussed the case with the resident. I agree with the resident's findings and plan as documented. SUBJECTIVE: Seen and examined with resident; please refer to their documentation for further historical information. Briefly, this is a 62 y/o male with a PMH significant for multiple severe comorbidities including severe systolic CHF s/p AICD (LVEF ~30% 03/2018), COPD on 3L Home O2, Recent admission leading to transfer to [facility] for Watchman Device for his Afib (elevated CV2 score but not on AC due to fall risk), Chronic Pain, Bio AVR 2012, PAD/PVD, CAD s/p CABG 2012, MR, CKD-IV, DM. He presents today for hypoglycemic episode; he is a poor historian (told me Jaxon Olsen was the president and that he was 33 years old but did know he was in the hospital, etc). He aparently had a transient episode of confusion yesterday (thought he was locked in a closet) per the family; unknown if he was hypoglycemic at this point. His fsg was 44 and he was given a soda and some orange juice which did improve it. He does not know why he is here; he told me it was because he was having trouble breathing ( though he is actually below the 3L he is previously documented as requiring, saturating well on 2L), then that it was 'his heart,' and he was unable to recall any issues at all with his glucose. His BNP is elevated higher than it has been in the past but this is skewed by his CKD. He is known to have a L- sided pleural effusion (loculated); appears to have had a thoracentesis 2017. On 04/07/[address] done here that showed the said effusion with with atelectatic changes in the LLL; today he has similar findings on the CXR at the LLL base with no fever or leukocytosis. He is hemodynamically stable and afebrile. Admitting to the floor. 10 sys ROS done and negative aside from HPI PMH and PSH discussed above FH asked and noncontributory Social hx reviewed; nondrinker nonsmoker, no drugs. He is taken care of at home by his neice who is documented as being HCP in prior notes. Unfortunately she left before I was able to speak with her. Medication list from prior admission reviewed; pending reconciliation. Pending records from [facility] OBJECTIVE: VS, labs, imaging reviewed NAD, AAOx1, resting in bed CN2-12 wnl, no fnd obvious during our encounter. Speech is coherent but responses delayed. Not orientated. No CN deficits. Moved all 4 extremities with apparent intact sensorium. HR normal with 3/6 systolic murmur Lungs with some crackles near bases Labs reviewed; h/h at baseline; BNP 30k (slightly over what it was his last visit), Cr 1.8 (at baseline). Initial troponin 0.09. Blood gas reviewed. CXR reviewed; persistent LLL consolidation with minimal atelectesis RLL. EKG reviewed On telemetry ASSESSMENT AND PLAN: Patient presents with hypoglycemia; persistent LLL findings with subjective SOB and BNP elevated above baseline in a patient with known severe CHF s/p AICD 1) Acute Hypoglycemia -Improved; monitor fsg overnight and SSI in the AM. Consider decreasing home doses prior to DC 2) SOB in patient with hx severe CHF, ? exacerbation vs ? COPD exacerbation -Elevated BNP over his prior values but baseline O2 requirements; CXR report reviewed. SOB has other etiologies which can include but are not limited to his severe COPD history (he basically uses his 3L ATC). He got 60 IV lasix in the ER (on 80 BID at home). -Consulting his statistical clerk advertising; changing the PO to IV for the next day preliminary but of course will defer to cardiology. He doesn't know his dry weight, etc. -Optimize lytes, monitor on tele. Strict Is and Os. Monitor renal function given actively diuresing CKD patient. -QD weigts and strict Is and Os -Consider COPD exacerbation from enviornmental trigger (poor historian limits this assessment); he has pulm HTN suggested on prior echoes, etc. We will treat presumptively for COPD exacerbation (mild) giving PO prednisone 60 mg QD with ATC duonebs and PRN albuterol -Furthermore the patient has no evidence for PNA (no wbc, no fever). The atelectesis may be managed with incentive spirometer. He has the L-sided effusion known from last month. If all else fails we can consider thoracentesis to see if he gets subjective relief. 3) LLL Loculated effusion with b/l atelectatic changes -Discussed above 4) Afib s/p watchman procedure -Continue home medications; getting records from [facility] 5) Elevated Troponin -Likely due to demand from #1/2, etc. that is further exagerated by the underlying CKD 6) Transient AMS; confusion -Seen by psych for SI last visit as well as neurology -Carotid duplex showed >90% stenosis of the L-external carotid at the time of his last visit last month; vascular was consulted at that time. Please see their note for further discussion. -He has an elevated CV2 score but isn't on AC due to fall risk and subsequentially got the Watchman. Furthermore he is a difficult historian and it is difficult to make a thorough assessment from a neuro/psych perspective. -Can consider MRI if this is a significant change for him; he did see neuro here so if this is worsening or he is far off his baseline per his family of primary MD we can consider re-consulting their service 7) Hx ?HIT -Noted in DCS; he cannot tell us what happened at [facility]; checking old records 8) CAD s/p CABG 2012 -Continue home medications 9) MR hx 10) PAD 11) Bio AVR 12) Advanced Hepatocellular Disease -OP followup recommended; would benefit from EGS, hepatitis testing, etc. 13) Prior CVA -Old L-thalamic infarct seen on his CT head -Is on ASA, Statin. 14) Normocytic Anemia -Hb at baseline; monitor CBC 15) Prior SI -Monitor while inpatient for any psych sxx FENA -2L fluid restriction -PRN replete; optimize K and Mg -Cardiac diet, Na rest -As tolerated; consider PT consult.
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
[2018-04-28] MEDS ORDERED: INSULIN (NOVOLOG) ASPART 100 UNITS/ML 10ML VIAL ONE ×3 (03:07→14:16)
[2018-04-28] MEDS: INSULIN SLIDING SCALE (NOVOLOG) 1 VIAL SQ SCH ×6 (03:25→23:13)
[2018-04-28] MEDS ORDERED: ALBUTEROL SO4 0.083% IH SOL 2.5 MG/3 ML VIAL.NEB. NEB PRN (03:51)
[2018-04-28] MEDS ORDERED: ACETAMINOPHEN 325 MG TABLET (FP) PO PRN (03:51)
[2018-04-28] MEDS ORDERED: LACTULOSE PO PRN (03:51)
[2018-04-28] MEDS ORDERED: MECLIZINE HCL 25 MG TABLET (FP) PO PRN (03:51)
[2018-04-28 06:30] LABS: HEMATOCRIT 30.9 % (35.4-49); HEMOGLOBIN 10.2 GM/dL (11.7-16.9); MCH 31.2 pg (25.7-33.7); MCHC 33.1 g/dl (32.0-35.9); MEAN PLT VOLUME 8.8 fl (7.5-11.1); PLATELET COUNT 195 K/MM3 (134-434); RBC 3.29 M/mm3 (4.00-5.60); RDW 18.4 % (11.9-15.9); WHITE BLOOD COUNT 8.6 K/mm3 (4.0-10.0)
[2018-04-28] MEDS ORDERED: DOCUSATE SODIUM 100 MG CAPSULE (FP) PO ONE (06:37)
[2018-04-28] MEDS ORDERED: FUROSEMIDE 40 MG/4 ML INJECTABLE VIAL ONE (06:38)
[2018-04-28 06:39] LABS: INR 1.28 (0.83-1.09); PROTHROMBIN TIME (PATIENT) 15.1 SEC (9.7-13.0)
[2018-04-28] MEDS: DOCUSATE SODIUM 100 MG CAPSULE (FP) PO SCH ×3 (06:48→23:12)
[2018-04-28] MEDS: FUROSEMIDE 40 MG/4 ML INJECTABLE VIAL IVPUSH SCH ×2 (06:48→14:19)
[2018-04-28 07:22] LABS: ANION GAP 10 MMOL/L (8-16); BLOOD UREA NITROGEN 38 mg/dL (7-18); CHLORIDE 100 mmol/L (98-107); CO2 26 mmol/L (21-32); CREATININE 1.9 mg/dL (0.55-1.3); GLUCOSE,RANDOM 178 mg/dL (74-106); MAGNESIUM 2.2 mg/dL (1.8-2.4); PHOSPHOROUS 2.6 mg/dL (2.5-4.9); POTASSIUM 4.5 mmol/L (3.5-5.1); SODIUM 135 mmol/L (136-145)
[2018-04-28] MEDS: ACETYLCYSTEINE 20% 200MG/ML 4 ML VIAL *FOR ORAL / INH USE ONLY NEB SCH ×4 (08:56→20:47)
[2018-04-28] MEDS: ALBUTEROL SO4 2.5/IPRATROPIUM 0.5 INH SOL 3 ML VIAL.NEB. NEB SCH ×4 (09:08→20:47)
--- NOTE | 2018-04-28 09:25 | CON.CARD ---
Cardiology Consult (text) - Consultation Consultation Note: Consultation Note: cc: sob hpi: 62 m hx copd, cabgx3 2012, bio avr 2012, pad s/p b/l sfa occlusions, syst chf s/p medtronic icd, htn, hld, a-tach, aflutter s/p watchman 04/2018 here with sob, alt mental status. Sees Dr. Zafar for cardio. He was recently admitted to [facility] for CHF exacerbation and influenza, [place] [facility] [place] which was [place] 04/20, discharged 04/21 on 3 mnoth course of aspirin and plavix. Here with sob and alt mental status. Patient lethargic this morning, does not give further hx, denies chest pain, palps, dizziness, lightheadedness. shortness of breath not improved, received IV lasix, steroids. pmh: per hpi psh: cabg, avr, icd, watchman social: +tob fam: no premature cad ros: per hpi; no nvd, fever, wt loss, rash, hematuria, gib, nasal congestion, [place] , vision changes Home Medications Medication Instructions Recorded Psyllium [Metamucil (Sugar-Free) -] 5.85 gm PO BID #1 bottle 06/02/17 Docusate Sodium [Colace -] 100 mg PO TID #90 capsule 09/22/17 Cholecalciferol (Vitamin D3) 2,000 unit PO DAILY #30 capsule 12/25/17 [Vitamin D3] Cyclobenzaprine HCl 5 mg PO BID #28 tablet 12/30/17 Pantoprazole Sodium [Protonix -] 40 mg PO DAILY #14 tablet.ec 02/22/18 Lactulose [Cephulac -] 10 - 20 gm PO DAILY PRN #1 bottle 03/23/18 Acetaminophen [Tylenol .Regular 650 mg PO BID PRN tablet 04/13/18 Strength -] Acetylcysteine Po/INH 20% 200 mg NEB RQID vial 04/13/18 [Mucomyst 20 Oral / INH Use Only*] Albuterol 0.083% Nebulizer Rosy 1 amp NEB Q4H PRN amp 04/13/18 [Ventolin 0.083% Nebulizer Soln -] Atorvastatin Ca [Lipitor] 40 mg PO HS tablet 04/13/18 Budesonide/Formeterol Fumarate 2 puff IH BID inhaler 04/13/18 [SYMBICORT 80/4.5mcg -] Furosemide [Lasix -] 80 mg PO BID@0600,1400 tablet 04/13/18 Insulin Sliding Scale [Novolog 1 vial SQ ACHS units 04/13/18 Vial Sliding Scale -] Meclizine HCl [Antivert -] 12.5 mg PO Q8H PRN tablet 04/13/18 Metoprolol Succinate [Toprol XL -] 50 mg PO BID tab.sr.24h 04/13/18 Ranitidine [Zantac -] 150 mg PO HS tablet 04/13/18 Sennosides [Senna -] 2 tab PO HS PRN tablet 04/13/18 Diclofenac Sodium [Voltaren] 2 gm TP TID PRN #3 tube 04/23/18 oxyCODONE HCL [Roxicodone -] 2.5 mg PO TID PRN #10 tablet MDD 3 04/23/18 pe: Vital Signs Period Temp Pulse Resp BP Sys/El Pulse Ox Last 24 Hr 96.1 F 61-67 24-28 145-147/76-89 99-100 nad, +JVD rrr s1s2 no mrg rales at bases freida, nl eff aaox3 no le e/c/c abd nt nd pos bs no jaundice diaphoresis +dp pt no carotid bruits Laboratory Last Values WBC 8.6 K/mm3 (4.0-10.0) 04/28/18 05:35 RBC 3.29 M/mm3 (4.00-5.60) L 04/28/18 05:35 Hgb 10.2 GM/dL (11.7-16.9) L 04/28/18 05:35 Hct 30.9 % (35.4-49) L 04/28/18 05:35 MCV 94.0 fl (80-96) 04/28/18 05:35 MCH 31.2 pg (25.7-33.7) 04/28/18 05:35 MCHC 33.1 g/dl (32.0-35.9) 04/28/18 05:35 RDW 18.4 % (11.9-15.9) H 04/28/18 05:35 Plt Count 195 K/MM3 (134-434) 04/28/18 05:35 MPV 8.8 fl (7.5-11.1) 04/28/18 05:35 Absolute Neuts (auto) 6.6 K/mm3 (1.5-8.0) 04/27/18 21: Neutrophils % 77.4 % (42.8-82.8) 04/27/18 21: Lymphocytes % 9.3 % (8-40) D 04/27/18 21: Monocytes % 9.8 % (3.8-10.2) 04/27/18 21: Eosinophils % 2.7 % (0-4.5) D 04/27/18 21: Basophils % 0.8 % (0-2.0) 04/27/18: Nucleated RBC % 0 % (0-0) 04/27/18 21: PT with INR 15.10 SEC (9.7-13.0) H 04/28/18 05:35 INR 1.28 (0.83-1.09) H 04/28/18 05:35 PTT (Actin FS) 31.0 SECONDS (25.2-36.5) 04/28/18 05:35 Anticoagulation Therapy No Result Required. 04/27/18 21: Puncture Site Right radial 04/27/18 21: ABG pH 7.48 (7.35-7.45) H 04/27/18 21: ABG pCO2 at Pt Temp 35.9 mmHg (35-45) D 04/27/18 21: ABG pO2 at Pt Temp 46.2 mmHg (80-100) L* D 04/27/18 21: ABG HCO3 26.6 meq/L (22-26) H 04/27/18 21: ABG O2 Sat (Measured) 82.0 % (90-98.9) L 04/27/18: ABG O2 Content 12.1 % vol (15-22) L 04/27/18 21: ABG Base Excess 3.5 meq/l (-2-2) H 04/27/18 21:26 Twin Test Positive 04/27/18: Carboxyhemoglobin 1.3 gm% (0.5-2.0) 04/27/18: Methemoglobin 0.5 % (0.4-1.5) 04/27/18 21:26 O2 Delivery Device Room air 04/27/18 21:26 Oxygen Flow Rate 21 04/27/18 21:26 Vent Mode No Result Required. 04/27/18 21:26 Vent Rate No Result Required. 04/27/18 21:26 Mechanical Rate No Result Required. 04/27/18 21:26 Pressure Support Vent No Result Required. 04/27/18 21:26 Sodium 135 mmol/L (136-145) L 04/28/18 05:35 Potassium 4.5 mmol/L (3.5-5.1) 04/28/18 05:35 Chloride 100 mmol/L (98-107) 04/28/18 05:35 Carbon Dioxide 26 mmol/L (21-32) 04/28/18 05:35 Anion Gap 10 MMOL/L (8-16) 04/28/18 05:35 BUN 38 mg/dL (7-18) H 04/28/18 05:35 Creatinine 1.9 mg/dL (0.55-1.3) H 04/28/18 05:35 Creat Clearance w eGFR 36.10 (>60) 04/28/18 05:35 POC Glucometer 186.58935 UNITS (80-120) 04/28/18 06:33 Random Glucose 178 mg/dL (74-106) H 04/28/18 05:35 Hemoglobin A1c % 8.9 % (4.2-6.3) H 04/28/18 05:35 Lactic Acid 1.6 mmol/L (0.4-2.0) 04/27/18 21:26 Calcium 8.0 mg/dL (8.5-10.1) L 04/28/18 05:35 Phosphorus 2.6 mg/dL (2.5-4.9) 04/28/18 05:35 Magnesium 2.2 mg/dL (1.8-2.4) 04/28/18 05:35 Total Bilirubin 0.5 mg/dL (0.2-1) 04/27/18 21:26 AST 24 U/L (15-37) 04/27/18 21:26 ALT 12 U/L (13-61) L 04/27/18 21:26 Alkaline Phosphatase 106 U/L (45-117) 04/27/18 21:26 Ammonia 23.20 umol/L (11-32) 04/28/18 04:48 Creatine Kinase 29 U/L (26-308) 04/27/18 21:26 Troponin I 0.07 ng/ml (0.00-0.05) H 04/28/18 04:48 B-Natriuretic Peptide 54954.4 pg/ml (5-125) H 04/27/18 21:26 Total Protein 6.4 g/dl (6.4-8.2) 04/27/18 21:26 Albumin 2.4 g/dl (3.4-5.0) L 04/27/18 21:26 Urine Color Kelsey 04/27/18 21:26 Urine Appearance Clear 04/27/18 21:26 Urine pH 5.0 (5.0-8.0) 04/27/18 21: Ur Specific [place] 1.022 (1.010-1.035) 04/27/18 21:26 Urine Protein 3+ (NEGATIVE) H 04/27/18 21:26 Urine Glucose (UA) Negative (NEGATIVE) 04/27/18 21:26 Urine Ketones Negative (NEGATIVE) 04/27/18 21:26 Urine Blood Negative (NEGATIVE) 04/27/18 21:26 Urine Nitrite Negative (NEGATIVE) 04/27/18 21: Urine Bilirubin Negative (<2.0 mg/dL) 04/27/18 21: Urine Urobilinogen 4.0 e.u/dl mg/dL (0.2-1.0) 04/27/18 21:26 Ur Leukocyte Esterase Negative (NEGATIVE) 04/27/18 21:26 Urine WBC (Auto) 1 /hpf (3-5) 04/27/18 21:26 Urine RBC (Auto) 4 /hpf (0-3) 04/27/18 21:26 Ur Epithelial Cells Rare /HPF (FEW) 04/27/18 21:26 Hyaline Casts 6 /lpf 04/27/18 21:26 Urine Mucus Rare 04/27/18 21:26 Influenza A (Rapid) Negative 04/27/18 19:52 Influenza B (Rapid) Negative 04/27/18 19:52 ECG: AFL, V-P, PVCs CXR: chf CT head: L thalamic infarct, unchanged from prior echo 06/2016: sev dec lvef, global hk, rv tds, trinity, mod-sev mr, mod tr, rvsp 50- 60 echo 06/2015: mild lve, mod-sev dec lvef, mod lae, nl rv size, mild dec rv fcn, mild-mod mr, mild tr, nl avr fcn, rvsp 30-40 04/14/18 [place] [facility] [place] moderate left ventricular dilatation overall severe decreased left ventricular systolic function (diffuse); estimated ejection fraction = 30 % The posterior wall is severely hypokinetic. Restrictive diastolic dysfunction normal right ventricular size moderate decreased right ventricular function aortic prosthesis (tissue) no evidence for aortic regurgitation moderate to severe mitral regurgitation mild to moderate tricuspid regurgitation moderate to severe pulmonary hypertension minimal pulmonic regurgitation no evidence for pericardial effusion technically difficult study Definity precision microbubble contrast used to enhance endocardial border definition mibi 06/2016 (pers): non-diagnostic STs; large area inferior/inferolateral/ lateral scar; no ischemia; severe LV cavity dilation; global HK with akinesis of inferior/inferolat/lateral allan; EF 16% mibi 09/2014: large inf scar, mod anteroapical ischemia, lvef 25% tele: AFL HR controlled, Vs/[employer]. no VT a/p: 62 m hx copd, cabgx3 2012, bio avr 2012, pad s/p b/l sfa occlusions, syst chf s/p medtronic icd, htn, hld, a-tach, here with back pain, sob. acute on chronic systolic CHF exacerbation: - [place] [facility] [place]was on lasix 80 po daily at home -continue lasix 80 mg IV BID - monitor daily cr, standing weights -cont carvedilol. not on ACEI due to h/o hyperkalemia alt mental status - CT head stable, workup per primary team atrial flutter: -pt in AFL on ekg -CHADS VASC 4, s/p watchiman device 04/20 on aspirin and plavix for 3 months cad/hx of CABG 2012 -no recent angina/ischemia -trop chronically in intermediate range, no change in current values, trend is flat, ck nl, not c/w acs -cont prior cad med regimen: asa, statin, bb, ccb bio avr: -nl fcn on echo 04/2018 mitral regurgitation: -likely functional MR, mild-mod on echo 06/19, then "mod-severe" when here 06/20 with suspected acute chf and pulm pressures up (though at risk for overestimation of MR severity on that echo report), mod to severe on echo [place] [facility] [place] -valve morphology not described (tethered leaflets?) -no murmur on exam -reassess MR severity on echo as outpt CVA: -age indeterminate L thalamic stroke on CT here 03/2019 - now s/p Watchman device 04/2018, cont aspirin and plavix CKD: -baseline creatinine 2-2.5; -renal fxn stable here pad: -stable, no claudication, cont current cardiac meds s/p icd: -no shocks on check earlier this month -routine outpt monitoring htn: -bp stable -cont home meds
--- NOTE | 2018-04-28 10:49 | PN ---
Progress Note, Physician Chief Complaint: Pt lying in stretcher in no acute distress. pt very sleepy, arousable. oriented x3 during my interaction. Denies any pain, worsening sob, n/v/d - Current Medication List Current Medications: Active Medications Acetaminophen (Tylenol -) 650 mg PO BID PRN PRN Reason: PAIN LEVEL 7 - 10 Acetylcysteine (Mucomyst 20 Oral / Inh Use Only*) 200 mg NEB RQID MANJU Albuterol Sulfate (Ventolin 0.083% Nebulizer Soln -) 1 amp NEB Q4H PRN PRN Reason: SHORTNESS OF BREATH Albuterol/Ipratropium (Duoneb -) 1 amp NEB RQID MANJU Aspirin (Asa -) 81 mg PO DAILY MANJU Atorvastatin Calcium (Lipitor -) 40 mg PO HS MANJU Budesonide/Formoterol Fumarate (Symbicort 80/4.5mcg -) 2 puff IH BID MANJU Cholecalciferol (Vitamin D3 -) 2,000 unit PO DAILY [facility] Clopidogrel Bisulfate (Plavix -) 75 mg PO DAILY [facility] Cyclobenzaprine HCl (Cyclobenzaprine Hcl) 5 mg PO BID [facility] Docusate Sodium (Colace -) 100 mg PO TID [facility] Last Admin: 04/28/18 06:48 Dose: 100 mg Furosemide (Lasix Injection -) 80 mg IVPUSH BIDLASIX [facility] Last Admin: 04/28/18 06:48 Dose: 80 mg Insulin Aspart (Novolog Vial Sliding Scale -) 1 vial SQ Q4HPO [facility]; Protocol Last Admin: 04/28/18 06:48 Dose: 2 units Meclizine HCl (Antivert -) 12.5 mg PO Q8H PRN PRN Reason: VERTIGO Metoprolol Succinate (Toprol Xl -) 50 mg PO BID [facility] Non-Formulary Medication (Lactulose) 10 - 20 gm PO DAILY PRN PRN Reason: CONSTIPATION Pantoprazole Sodium (Protonix -) 40 mg PO DAILY [facility] Prednisone (Deltasone -) 60 mg PO DAILY [facility] - Objective Vital Signs: Vital Signs Temperature 96.1 F L 04/27/18 19:36 Pulse Rate 67 04/27/18 23:14 Respiratory Rate 24 H 04/27/18 23:14 Blood Pressure 147/76 04/27/18 23:14 O2 Sat by Pulse Oximetry (%) 100 04/27/18 23:14 Constitutional: Yes: No Distress, Calm Cardiovascular: Yes: Pulse Irregular, Murmur Respiratory: Yes: Regular, CTA Bilaterally, Diminished, On Nasal O2 Gastrointestinal: Yes: WNL, Normal Bowel Sounds. No: Distention, Tenderness Genitourinary: Yes: WNL Edema: No Neurological: Yes: Alert, Oriented, Lethargy Psychiatric: Yes: Alert, Oriented Labs: CBC, BMP 04/28/18 05:35 04/28/18 05:35 INR, PTT INR 1.28 (0.83-1.09) H 04/28/18 05:35 Assessment/Plan (1) Acute exacerbation of CHF (congestive heart failure) Assessment/Plan: acute on chronic continue iv diuresis daily weight low na diet cardiology following Code(s): I50.9 - HEART FAILURE, UNSPECIFIED Qualifiers: Heart failure type: combined systolic and diastolic Qualified Code(s): I50.43 - Acute on chronic combined systolic (congestive) and diastolic ( congestive) heart failure (2) Altered mental status Assessment/Plan: possibly 2/2 hypoglycemia at home pt is oriented x 3 during my interaction, however lethargic head ct neg infectious work up pending abg- repeated and hypoxia improved consider neuro consult if lack of improvement Code(s): R41.82 - ALTERED MENTAL STATUS, UNSPECIFIED Qualifiers: Altered mental status type: transient alteration of awareness Qualified Code(s): R40.4 - Transient alteration of awareness (3) Atrial flutter Assessment/Plan: rate controlled s/p watchman's device 04/2018 continue asa/plavix x 3 months Code(s): I48.92 - UNSPECIFIED ATRIAL FLUTTER (4) CHF (congestive heart failure) Assessment/Plan: s/p icd as above Code(s): I50.9 - HEART FAILURE, UNSPECIFIED (5) COPD (chronic obstructive pulmonary disease) Assessment/Plan: chronic, O2 dependent continue nebs pulm following Code(s): J44.9 - CHRONIC OBSTRUCTIVE PULMONARY DISEASE, UNSPECIFIED (5) Chronic kidney disease (CKD) Assessment/Plan: stable nephrology cleared Code(s): N18.9 - CHRONIC KIDNEY DISEASE, UNSPECIFIED Qualifiers: Chronic kidney disease stage: stage 3 (moderate) Qualified Code(s): N18.3 - Chronic kidney disease, stage 3 (moderate) (6) CAD (coronary artery disease) Assessment/Plan: s/p cabgx 3 continue asa/statin/plavix Code(s): I25.10 - ATHSCL HEART DISEASE OF [place] CORONARY ARTERY W/O ANG PCTRS Qualifiers: [place] vs. transplanted heart: [place] heart Associated angina: without angina (7) Diabetes Assessment/Plan: controlled insulin levemir glipizide Code(s): E11.9 - TYPE 2 DIABETES MELLITUS WITHOUT COMPLICATIONS Qualifiers: Diabetes mellitus type: type 2 Diabetes mellitus usp insulin use: with 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 use Diabetes mellitus complication status: with kidney complications Diabetes mellitus complication detail: with chronic kidney disease Chronic kidney disease stage: stage 3 (moderate) Qualified Code(s): E11.22 - Type 2 diabetes mellitus with diabetic chronic kidney disease; N18.3 - Chronic kidney disease, stage 3 (moderate); Z79.4 - MCFP (current) use of insulin (8) HTN (hypertension) Assessment/Plan: controlled continue home regimen monitor Code(s): I10 - ESSENTIAL (PRIMARY) HYPERTENSION Qualifiers: Hypertension type: essential hypertension Qualified Code(s): I10 - Essential (primary) hypertension (10) Osteoarthritis, multiple sites Assessment/Plan: stable Code(s): M15.9 - POLYOSTEOARTHRITIS, UNSPECIFIED Qualifiers: Osteoarthritis type: primary Qualified Code(s): M15.0 - Primary generalized (osteo)arthritis (11) Low back pain Assessment/Plan: chronic PT analgesics prn Code(s): M54.5 - LOW BACK PAIN Qualifiers: Chronicity: chronic (12) Anemia Assessment/Plan: chronic hg/hct stable monitor Code(s): D64.9 - ANEMIA, UNSPECIFIED Qualifiers: Anemia type: due to chronic kidney disease Chronic kidney disease stage: stage 3 (moderate) Qualified Code(s): N18.3 - Chronic kidney disease, stage 3 (moderate); D63.1 - Anemia in chronic kidney disease (13) Peripheral vascular disease Assessment/Plan: pad, stable continue statin/plavix/asa Code(s): I73.9 - PERIPHERAL VASCULAR DISEASE, UNSPECIFIED
[2018-04-28] MEDS: ASPIRIN 81 MG CHEWABLE TABLETS PO SCH (11:09)
[2018-04-28] MEDS: CYCLOBENZAPRINE HCL 5 MG TABLET PO SCH ×2 (11:10→23:26)
[2018-04-28] MEDS: CLOPIDOGREL BISULFATE 75 MG TABLET (FP) PO SCH (11:10)
[2018-04-28] MEDS: predniSONE 20 MG TABLET (UD) PO SCH (11:10)
[2018-04-28] MEDS: CHOLECALCIFEROL (VITAMIN D3) 1,000 UNIT TABLET (FP) PO SCH (11:11)
[2018-04-28] MEDS: PANTOPRAZOLE 40 MG TABLET (FP) PO SCH (11:11)
[2018-04-28] MEDS ORDERED: ASPIRIN 81 MG CHEWABLE TABLETS ONE (11:31)
[2018-04-28] MEDS ORDERED: CLOPIDOGREL BISULFATE 75 MG TABLET (FP) ONE (11:31)
[2018-04-28] MEDS ORDERED: ACETYLCYSTEINE 20% 200MG/ML 4 ML VIAL *FOR ORAL / INH USE ONLY ONE ×2 (11:40→17:18)
[2018-04-28] MEDS ORDERED: ALBUTEROL SO4 2.5/IPRATROPIUM 0.5 INH SOL 3 ML VIAL.NEB. NEB ONE ×2 (11:40→17:18)
[2018-04-28] MEDS ORDERED: ALBUTEROL SO4 0.083% IH SOL 2.5 MG/3 ML VIAL.NEB. NEB ONE ×2 (11:43→17:18)
--- NOTE | 2018-04-28 13:16 | EKG ---
Test Reason : Blood Pressure : / mmHG Vent. Rate : 063 BPM Atrial Rate : 063 BPM P-R Int : 000 ms QRS Dur : 190 ms QT Int : 518 ms P-R-T Axes : 000 -85 091 degrees QTc Int : 530 ms Ventricular-paced rhythm WITH OCCASIONAL PREMATURE VENTRICULAR COMPLEXES ABNORMAL ECG WHEN COMPARED WITH ECG OF 07-APR-2018 01:38, ELECTRONIC VENTRICULAR PACEMAKER HAS REPLACED SINUS RHYTHM VENT. RATE HAS DECREASED BY 61 BPM Confirmed by BERNABE JEREZ MD ([id number]) on 04/28/2018 1:16:28 PM Referred By: Confirmed By:BERNABE JEREZ MD
[2018-04-28] MEDS: BUDESONIDE/FORMETEROL FUMARATE 80/4.5 mcg INHALER IH SCH ×2 (14:27→23:26)
[2018-04-28 15:43] LABS: ARTERIAL BLOOD GAS BASE EXCESS 3.1 meq/l (-2-2); ARTERIAL BLOOD GAS PCO2 37.8 mmHg (35-45); ARTERIAL BLOOD GAS pH 7.46 (7.35-7.45)
[2018-04-28 15:44] LABS: ALLENS TEST POSITIVE
[2018-04-28] MEDS: ATORVASTATIN CA 40 MG TABLET (FP) PO SCH (23:12)
[2018-04-29] MEDS ORDERED: MELATONIN 5 MG TABLETS PO ONE (00:24)
[2018-04-29 00:27] VITALS: BMI 29.0
[2018-04-29] MEDS: INSULIN SLIDING SCALE (NOVOLOG) 1 VIAL SQ SCH ×7 (02:51→21:23)
[2018-04-29] MEDS: FUROSEMIDE 40 MG/4 ML INJECTABLE VIAL IVPUSH SCH ×2 (05:35→14:46)
[2018-04-29] MEDS: DOCUSATE SODIUM 100 MG CAPSULE (FP) PO SCH ×3 (05:36→21:22)
[2018-04-29 07:44] LABS: BASO % 0.1 % (0-2.0); HEMATOCRIT 27.2 % (35.4-49); HEMOGLOBIN 9.1 GM/dL (11.7-16.9); LYMPH % 5.7 % (8-40); MCH 31.2 pg (25.7-33.7); MCHC 33.5 g/dl (32.0-35.9); MEAN CELL VOLUME 93.1 fl (80-96); MEAN PLT VOLUME 8.8 fl (7.5-11.1); MONO % 8.4 % (3.8-10.2); NEUT % 85.8 % (42.8-82.8); PLATELET COUNT 180 K/MM3 (134-434); RBC 2.92 M/mm3 (4.00-5.60); RDW 18.3 % (11.9-15.9); WHITE BLOOD COUNT 8.5 K/mm3 (4.0-10.0)
[2018-04-29 08:11] LABS: ANION GAP 6 MMOL/L (8-16); BLOOD UREA NITROGEN 46 mg/dL (7-18); CALCIUM 8.1 mg/dL (8.5-10.1); CHLORIDE 103 mmol/L (98-107); CO2 30 mmol/L (21-32); GLUCOSE,RANDOM 163 mg/dL (74-106); MAGNESIUM 2.3 mg/dL (1.8-2.4); SODIUM 139 mmol/L (136-145)
[2018-04-29] MEDS: ALBUTEROL SO4 2.5/IPRATROPIUM 0.5 INH SOL 3 ML VIAL.NEB. NEB SCH ×3 (08:29→16:18)
[2018-04-29] MEDS ORDERED: PT OWN MED DRAWER 7, Y5N ONE ×2 (09:46→21:11)
[2018-04-29] MEDS: ASPIRIN 81 MG CHEWABLE TABLETS PO SCH (10:11)
[2018-04-29] MEDS: CYCLOBENZAPRINE HCL 5 MG TABLET PO SCH ×2 (10:12→21:22)
[2018-04-29] MEDS: predniSONE 20 MG TABLET (UD) PO SCH (10:12)
[2018-04-29] MEDS: PANTOPRAZOLE 40 MG TABLET (FP) PO SCH (10:13)
[2018-04-29] MEDS: CLOPIDOGREL BISULFATE 75 MG TABLET (FP) PO SCH (10:13)
[2018-04-29] MEDS: BUDESONIDE/FORMETEROL FUMARATE 80/4.5 mcg INHALER IH SCH ×2 (10:13→21:24)
[2018-04-29] MEDS: CHOLECALCIFEROL (VITAMIN D3) 1,000 UNIT TABLET (FP) PO SCH (10:14)
--- NOTE | 2018-04-29 10:38 | PN ---
Progress Note, Physician Chief Complaint: Pt sitting in bed in no acute distress. reports feeling a lot better today. ambulating without difficulty. Denies any pain, worsening sob, n/v/d - Current Medication List Current Medications: Active Medications Acetaminophen (Tylenol -) 650 mg PO BID PRN PRN Reason: PAIN LEVEL 7 - 10 Acetylcysteine (Mucomyst 20 Oral / Inh Use Only*) 200 mg NEB RQID [facility] Last Admin: 04/28/18 20:47 Dose: 200 mg Albuterol Sulfate (Ventolin 0.083% Nebulizer Soln -) 1 amp NEB Q4H PRN PRN Reason: SHORTNESS OF BREATH Albuterol/Ipratropium (Duoneb -) 1 amp NEB RQID [facility] Last Admin: 04/29/18 08:29 Dose: 1 amp Aspirin (Asa -) 81 mg PO DAILY [facility] Last Admin: 04/29/18 10:11 Dose: 81 mg Atorvastatin Calcium (Lipitor -) 40 mg PO HS [facility] Last Admin: 04/28/18 23:12 Dose: 40 mg Budesonide/Formoterol Fumarate (Symbicort 80/4.5mcg -) 2 puff IH BID [facility] Last Admin: 04/29/18 10:13 Dose: 2 puff Cholecalciferol (Vitamin D3 -) 2,000 unit PO DAILY [facility] Last Admin: 04/29/18 10:14 Dose: 2,000 unit Clopidogrel Bisulfate (Plavix -) 75 mg PO DAILY [facility] Last Admin: 04/29/18 10:13 Dose: 75 mg Cyclobenzaprine HCl (Cyclobenzaprine Hcl) 5 mg PO BID [facility] Last Admin: 04/29/18 10:12 Dose: 5 mg Docusate Sodium (Colace -) 100 mg PO TID [facility] Last Admin: 04/29/18 05:36 Dose: 100 mg Furosemide (Lasix Injection -) 80 mg IVPUSH BIDLASIX [facility] Last Admin: 04/29/18 05:35 Dose: 80 mg Insulin Aspart (Novolog Vial Sliding Scale -) 1 vial SQ Q4HPO [facility]; Protocol Last Admin: 04/29/18 06:24 Dose: 4 units Lactulose (Cephulac (Oral Use)) 20 gm PO TID [facility] Stop: 05/01/18 06:01 Metoprolol Succinate (Toprol Xl -) 50 mg PO BID [facility] Last Admin: 04/29/18 10:14 Dose: 50 mg Pantoprazole Sodium (Protonix -) 40 mg PO DAILY [facility] Last Admin: 04/29/18 10:13 Dose: 40 mg Prednisone (Deltasone -) 60 mg PO DAILY [facility] Last Admin: 04/29/18 10:12 Dose: 60 mg - Objective Vital Signs: Vital Signs Temperature 97.9 F 04/29/18 05:00 Pulse Rate 67 04/29/18 05:00 Respiratory Rate 18 04/29/18 05:00 Blood Pressure 136/84 04/29/18 05:00 O2 Sat by Pulse Oximetry (%) 99 04/28/18 22:35 Cardiovascular: Yes: Regular Rate and Rhythm, Murmur Respiratory: Yes: Regular, CTA Bilaterally, On Nasal O2, SOB on Exertion. No: Accessory Muscle Use, SOB, Tachypnea, Wheezes Gastrointestinal: Yes: WNL, Normal Bowel Sounds, Soft. No: Distention, Tenderness Genitourinary: Yes: WNL Extremities: Yes: WNL Edema: No Neurological: Yes: WNL, Alert, Oriented Psychiatric: Yes: WNL, Alert, Oriented Labs: CBC, BMP 04/29/18 06:18 04/29/18 06:18 INR, PTT INR 1.28 (0.83-1.09) H 04/28/18 05:35 Assessment/Plan (1) Acute exacerbation of CHF (congestive heart failure) Assessment/Plan: improving continue iv diuresis daily weight low na diet cardiology following Code(s): I50.9 - HEART FAILURE, UNSPECIFIED Qualifiers: Heart failure type: combined systolic and diastolic Qualified Code(s): I50.43 - Acute on chronic combined systolic (congestive) and diastolic ( congestive) heart failure (2) Metabolic encephalopathy Assessment/Plan: resolved pt at baseline suspect lethargy possible 2/2 hypoglycemia/hypoxia infectious work up neg Code(s): G93.41 - METABOLIC ENCEPHALOPATHY (3) Atrial flutter Assessment/Plan: rate controlled s/p watchman's device 04/2018 continue asa/plavix x 3 months Code(s): I48.92 - UNSPECIFIED ATRIAL FLUTTER (4) CHF (congestive heart failure) Assessment/Plan: s/p icd as above Code(s): I50.9 - HEART FAILURE, UNSPECIFIED (5) COPD (chronic obstructive pulmonary disease) Assessment/Plan: chronic, O2 dependent continue nebs pulm following Code(s): J44.9 - CHRONIC OBSTRUCTIVE PULMONARY DISEASE, UNSPECIFIED (5) Chronic kidney disease (CKD) Assessment/Plan: stable Code(s): N18.9 - CHRONIC KIDNEY DISEASE, UNSPECIFIED Qualifiers: Chronic kidney disease stage: stage 3 (moderate) Qualified Code(s): N18.3 - Chronic kidney disease, stage 3 (moderate) (6) CAD (coronary artery disease) Assessment/Plan: s/p cabgx 3 continue asa/statin/plavix Code(s): I25.10 - ATHSCL HEART DISEASE OF [place] CORONARY ARTERY W/O ANG PCTRS Qualifiers: [place] vs. transplanted heart: [place] heart Associated angina: without angina (7) Diabetes Assessment/Plan: controlled bgm insulin sliding scale verify home meds, pt was on glipizide in the past Code(s): E11.9 - TYPE 2 DIABETES MELLITUS WITHOUT COMPLICATIONS Qualifiers: Diabetes mellitus type: type 2 Diabetes mellitus snf insulin use: with snf use Diabetes mellitus complication status: with kidney complications Diabetes mellitus complication detail: with chronic kidney disease Chronic kidney disease stage: stage 3 (moderate) Qualified Code(s): E11.22 - Type 2 diabetes mellitus with diabetic chronic kidney disease; N18.3 - Chronic kidney disease, stage 3 (moderate); Z79.4 - senior living (current) use of insulin (8) HTN (hypertension) Assessment/Plan: controlled continue home regimen Code(s): I10 - ESSENTIAL (PRIMARY) HYPERTENSION Qualifiers: Hypertension type: essential hypertension Qualified Code(s): I10 - Essential (primary) hypertension (10) Osteoarthritis, multiple sites Assessment/Plan: stable Code(s): M15.9 - POLYOSTEOARTHRITIS, UNSPECIFIED Qualifiers: Osteoarthritis type: primary Qualified Code(s): M15.0 - Primary generalized (osteo)arthritis (11) Low back pain Assessment/Plan: chronic PT analgesics prn Code(s): M54.5 - LOW BACK PAIN Qualifiers: Chronicity: chronic (12) Anemia Assessment/Plan: chronic hg/hct mild drop heme occult ordered monitor Code(s): D64.9 - ANEMIA, UNSPECIFIED Qualifiers: Anemia type: due to chronic kidney disease Chronic kidney disease stage: stage 3 (moderate) Qualified Code(s): N18.3 - Chronic kidney disease, stage 3 (moderate); D63.1 - Anemia in chronic kidney disease (13) Peripheral vascular disease Assessment/Plan: pad, stable continue statin/plavix/asa Code(s): I73.9 - PERIPHERAL VASCULAR DISEASE, UNSPECIFIED
--- NOTE | 2018-04-29 11:49 | PN ---
Progress Note (short form) - Note Progress Note: s: no cp palps dizzy; sob improving o: Vital Signs Period Temp Pulse Resp BP Sys/El Pulse Ox Last 24 Hr 97.2 F-98.1 F 64-97 17-18 119-136/57-84 99-100 nad, +JVD rrr s1s2 no mrg cta bl, nl eff aaox3 no le e/c/c abd nt nd pos bs no jaundice diaphoresis +dp pt no carotid bruits Current Medications Generic Name Dose Route Start Last Admin Trade Name Freq PRN Reason Stop Dose Admin Acetaminophen 650 mg 04/28/18 03:51 Tylenol - PO BID PRN PAIN LEVEL 7 - 10 Acetylcysteine 200 mg 04/28/18 08:00 04/28/18 20:47 Mucomyst 20 Oral / Inh Use Only* NEB 200 mg RQID MANJU Administration Albuterol Sulfate 1 amp 04/28/18 03:51 Ventolin 0.083% Nebulizer Soln - NEB Q4H PRN SHORTNESS OF BREATH Albuterol/Ipratropium 1 amp 04/28/18 08:00 04/29/18 11:40 Duoneb - NEB 1 amp RQID MANJU Administration Aspirin 81 mg 04/28/18 10:00 04/29/18 10:11 Asa - PO 81 mg DAILY MANJU Administration Atorvastatin Calcium 40 mg 04/28/18 22:00 04/28/18 23:12 Lipitor - PO 40 mg HS MANJU Administration Budesonide/Formoterol Fumarate 2 puff 04/28/18 10:00 04/29/18 10:13 Symbicort 80/4.5mcg - IH 2 puff BID MANJU Administration Cholecalciferol 2,000 unit 04/28/18 10:00 04/29/18 10:14 Vitamin D3 - PO 2,000 unit DAILY MANJU Administration Clopidogrel Bisulfate 75 mg 04/28/18 10:00 04/29/18 10:13 Plavix - PO 75 mg DAILY MANJU Administration Cyclobenzaprine HCl 5 mg 04/28/18 10:00 04/29/18 10:12 Cyclobenzaprine Hcl PO 5 mg BID MANJU Administration Docusate Sodium 100 mg 04/28/18 06:00 04/29/18 05:36 Colace - PO 100 mg TID MANJU Administration Furosemide 80 mg 04/28/18 06:00 04/29/18 05:35 Lasix Injection - IVPUSH 80 mg BIDLASIX MANJU Administration Insulin Aspart 1 vial 04/28/18 02:15 04/29/18 06:24 Novolog Vial Sliding Scale - SQ 4 units Q4HPO MANJU Administration Protocol Lactulose 20 gm 04/29/18 14:00 Cephulac (Oral Use) PO 05/01/18 06:01 TID MANJU Metoprolol Succinate 50 mg 04/28/18 10:00 04/29/18 10:14 Toprol Xl - PO 50 mg BID MANJU Administration Pantoprazole Sodium 40 mg 04/28/18 10:00 04/29/18 10:13 Protonix - PO 40 mg DAILY MANJU Administration Prednisone 60 mg 04/28/18 10:00 04/29/18 10:12 Deltasone - PO 60 mg DAILY MANJU Administration CBC, BMP 04/29/18 06:18 04/29/18 06:18 ECG: AFL, V-P, PVCs CXR: chf CT head: L thalamic infarct, unchanged from prior echo 06/2016: sev dec lvef, global hk, rv tds, trinity, mod-sev mr, mod tr, rvsp 50- 60 echo 06/2015: mild lve, mod-sev dec lvef, mod lae, nl rv size, mild dec rv fcn, mild-mod mr, mild tr, nl avr fcn, rvsp 30-40 04/14/18 ECHO MSH - moderate left ventricular dilatation overall severe decreased left ventricular systolic function (diffuse); estimated ejection fraction = 30 % The posterior wall is severely hypokinetic. Restrictive diastolic dysfunction normal right ventricular size moderate decreased right ventricular function aortic prosthesis (tissue) no evidence for aortic regurgitation moderate to severe mitral regurgitation mild to moderate tricuspid regurgitation moderate to severe pulmonary hypertension minimal pulmonic regurgitation no evidence for pericardial effusion technically difficult study Definity precision microbubble contrast used to enhance endocardial border definition mibi 06/2016 (pers): non-diagnostic STs; large area inferior/inferolateral/ lateral scar; no ischemia; severe LV cavity dilation; global HK with akinesis of inferior/inferolat/lateral allan; EF 16% mibi 09/2014: large inf scar, mod anteroapical ischemia, lvef 25% tele: AFL 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 acute on chronic systolic CHF exacerbation: - on discharge from [facility] [place] -was on lasix 80 po daily at home -continue lasix 80 mg IV BID - monitor daily cr, standing weights -cont carvedilol. not on ACEI due to h/o hyperkalemia alt mental status - CT head stable, workup per primary team atrial flutter: -pt in AFL on ekg -CHADS VASC 4, s/p watchiman device 04/20 on aspirin and plavix for 3 months cad/hx of CABG 2012 -no recent angina/ischemia -trop chronically in intermediate range, no change in current values, trend is flat, ck nl, not c/w acs -cont prior cad med regimen: asa, statin, bb, ccb bio avr: -nl fcn on echo 04/2018 mitral regurgitation: -likely functional MR, mild-mod on echo 06/19, then "mod-severe" when here 06/20 with suspected acute chf and pulm pressures up (though at risk for overestimation of MR severity on that echo report), mod to severe on echo at [facility] [place] 04/2018 -valve morphology not described (tethered leaflets?) -no murmur on exam -reassess MR severity on echo as outpt CVA: -age indeterminate L thalamic stroke on CT here 03/2019 - now s/p Watchman device 04/2018, cont aspirin and plavix CKD: -baseline creatinine 2-2.5; -renal fxn stable here pad: -stable, no claudication, cont current cardiac meds s/p icd: -no shocks on check earlier this month -routine outpt monitoring htn: -bp stable -cont home meds
[2018-04-29] MEDS: LACTULOSE 20 GM/30 ML UDC (FOR ORAL USE ONLY) PO SCH ×2 (14:46→21:23)
[2018-04-29] MEDS: ATORVASTATIN CA 40 MG TABLET (FP) PO SCH (21:22)
[2018-04-29] MEDS: MELATONIN 5 MG TABLETS PO PRN (21:23)
[2018-04-29] MEDS ORDERED: INSULIN (LEVEMIR) 100 UNITS/ML UNITS SQ SCH (22:00)
[2018-04-30] MEDS: glipiZIDE 5 MG TABLET (FP) PO SCH ×2 (06:21→16:56)
[2018-04-30] MEDS: FUROSEMIDE 40 MG/4 ML INJECTABLE VIAL IVPUSH SCH ×2 (06:21→13:25)
[2018-04-30] MEDS: INSULIN SLIDING SCALE (NOVOLOG) 1 VIAL SQ SCH ×4 (06:22→21:40)
[2018-04-30] MEDS: DOCUSATE SODIUM 100 MG CAPSULE (FP) PO SCH (06:24)
[2018-04-30] MEDS: LACTULOSE 20 GM/30 ML UDC (FOR ORAL USE ONLY) PO SCH (06:24)
[2018-04-30 07:01] LABS: BASO % 0.3 % (0-2.0); HEMATOCRIT 27.2 % (35.4-49); HEMOGLOBIN 9.3 GM/dL (11.7-16.9); LYMPH % 6.1 % (8-40); MCH 31.7 pg (25.7-33.7); MCHC 34.3 g/dl (32.0-35.9); MEAN CELL VOLUME 92.4 fl (80-96); MEAN PLT VOLUME 8.5 fl (7.5-11.1); NEUT % 87.6 % (42.8-82.8); PLATELET COUNT 183 K/MM3 (134-434); RBC 2.94 M/mm3 (4.00-5.60); WHITE BLOOD COUNT 10.6 K/mm3 (4.0-10.0)
[2018-04-30 07:41] LABS: ANION GAP 8 MMOL/L (8-16); BLOOD UREA NITROGEN 46 mg/dL (7-18); CALCIUM 7.6 mg/dL (8.5-10.1); CHLORIDE 98 mmol/L (98-107); CO2 30 mmol/L (21-32); CREATININE 1.8 mg/dL (0.55-1.3); GLUCOSE,RANDOM 132 mg/dL (74-106); MAGNESIUM 1.7 mg/dL (1.8-2.4); PHOSPHOROUS 2.4 mg/dL (2.5-4.9); POTASSIUM 3.8 mmol/L (3.5-5.1); SODIUM 136 mmol/L (136-145)
[2018-04-30] MEDS ORDERED: PT OWN MED DRAWER 7, Y5N ONE ×3 (08:51→22:16)
[2018-04-30] MEDS: BUDESONIDE/FORMETEROL FUMARATE 80/4.5 mcg INHALER IH SCH ×2 (09:45→21:41)
[2018-04-30] MEDS: predniSONE 20 MG TABLET (UD) PO SCH (09:46)
[2018-04-30] MEDS: PANTOPRAZOLE 40 MG TABLET (FP) PO SCH (09:46)
[2018-04-30] MEDS: CLOPIDOGREL BISULFATE 75 MG TABLET (FP) PO SCH (09:46)
[2018-04-30] MEDS: ASPIRIN 81 MG CHEWABLE TABLETS PO SCH (09:47)
[2018-04-30] MEDS ORDERED: MAGNESIUM SULF 50% (8.12 MEQ/2 ML-1 GM VIAL) IVPB ONE (09:55)
--- NOTE | 2018-04-30 10:54 | PN ---
Progress Note, Physician Chief Complaint: Pt sitting in chair in no acute distress. at baseline. ambulating without difficulty. Denies any pain, worsening sob, n/v/d. - Current Medication List Current Medications: Active Medications Acetaminophen (Tylenol -) 650 mg PO BID PRN PRN Reason: PAIN LEVEL 7 - 10 Acetylcysteine (Mucomyst 20 Oral / Inh Use Only*) 200 mg NEB RQID [facility] Last Admin: 04/28/18 20:47 Dose: 200 mg Albuterol Sulfate (Ventolin 0.083% Nebulizer Soln -) 1 amp NEB Q4H PRN PRN Reason: SHORTNESS OF BREATH Aspirin (Asa -) 81 mg PO DAILY [facility] Last Admin: 04/30/18 09:47 Dose: 81 mg Atorvastatin Calcium (Lipitor -) 40 mg PO HS [facility] Last Admin: 04/29/18 21:22 Dose: 40 mg Budesonide/Formoterol Fumarate (Symbicort 80/4.5mcg -) 2 puff IH BID [facility] Last Admin: 04/30/18 09:45 Dose: 2 puff Clopidogrel Bisulfate (Plavix -) 75 mg PO DAILY [facility] Last Admin: 04/30/18 09:46 Dose: 75 mg Cyclobenzaprine HCl (Cyclobenzaprine Hcl) 5 mg PO HS [facility] Last Admin: 04/29/18 21:22 Dose: 5 mg Docusate Sodium (Colace -) 100 mg PO TID [facility] Last Admin: 04/30/18 06:24 Dose: Not Given Furosemide (Lasix Injection -) 80 mg IVPUSH BIDLASIX [facility] Last Admin: 04/30/18 06:21 Dose: 80 mg Glipizide (Glucotrol -) 5 mg PO BID@0700,1630 [facility] Last Admin: 04/30/18 06:21 Dose: 5 mg Insulin Aspart (Novolog Vial Sliding Scale -) 1 vial SQ [facility]; Protocol Last Admin: 04/30/18 06:22 Dose: 2 units Insulin Detemir (Levemir Vial) 10 units SQ [facility] Last Admin: 04/29/18 21:23 Dose: 10 units Lactulose (Cephulac (Oral Use)) 20 gm PO TID [facility] Stop: 05/01/18 06:01 Last Admin: 04/30/18 06:24 Dose: Not Given Melatonin (Melatonin) 5 mg PO HS PRN PRN Reason: INSOMNIA Last Admin: 04/29/18 21:23 Dose: 5 mg Metoprolol Succinate (Toprol Xl -) 50 mg PO BID [facility] Last Admin: 04/30/18 09:46 Dose: 50 mg Pantoprazole Sodium (Protonix -) 40 mg PO DAILY [facility] Last Admin: 04/30/18 09:46 Dose: 40 mg Potassium Phos/Sodium Phos (Phos-Nak Packet -) 1 packet PO TID [facility] Stop: 05/01/18 06:01 Prednisone (Deltasone -) 40 mg PO DAILY [facility] Last Admin: 04/30/18 09:46 Dose: 40 mg - Objective Vital Signs: Vital Signs Temperature 97.2 F L 04/30/18 05:55 Pulse Rate 118 H 04/30/18 05:55 Respiratory Rate 18 04/30/18 05:55 Blood Pressure 148/83 04/30/18 05:55 O2 Sat by Pulse Oximetry (%) 100 04/29/18 21:00 Constitutional: Yes: No Distress, Calm Cardiovascular: Yes: Tachycardia, Pulse Irregular Respiratory: Yes: Regular, Diminished, Rales (dry, scattered). No: Tachypnea, Wheezes Gastrointestinal: Yes: WNL, Normal Bowel Sounds, Soft. No: Distention, Tenderness Genitourinary: Yes: WNL Extremities: Yes: WNL Edema: No Neurological: Yes: WNL, Alert, Oriented Psychiatric: Yes: WNL, Alert, Oriented Labs: CBC, BMP 04/30/18 05:30 04/30/18 05:30 INR, PTT INR 1.28 (0.83-1.09) H 04/28/18 05:35 Assessment/Plan (1) Acute exacerbation of CHF (congestive heart failure) Assessment/Plan: improving w/ iv diuresis daily weights low na diet cardiology following Code(s): I50.9 - HEART FAILURE, UNSPECIFIED Qualifiers: Heart failure type: combined systolic and diastolic Qualified Code(s): I50.43 - Acute on chronic combined systolic (congestive) and diastolic ( congestive) heart failure (2) Metabolic encephalopathy Assessment/Plan: resolved pt at baseline suspect lethargy possible 2/2 hypoglycemia/hypoxia infectious work up neg Code(s): G93.41 - METABOLIC ENCEPHALOPATHY (3) Atrial flutter Assessment/Plan: hr >100s this am s/p watchman's device 04/2018 continue metoprolol continue asa/plavix x 3 months cardiology following Code(s): I48.92 - UNSPECIFIED ATRIAL FLUTTER (4) CHF (congestive heart failure) Assessment/Plan: s/p icd as above Code(s): I50.9 - HEART FAILURE, UNSPECIFIED (5) COPD (chronic obstructive pulmonary disease) Assessment/Plan: chronic, O2 dependent continue nebs Code(s): J44.9 - CHRONIC OBSTRUCTIVE PULMONARY DISEASE, UNSPECIFIED (5) Chronic kidney disease (CKD) Assessment/Plan: stable Code(s): N18.9 - CHRONIC KIDNEY DISEASE, UNSPECIFIED Qualifiers: Chronic kidney disease stage: stage 3 (moderate) Qualified Code(s): N18.3 - Chronic kidney disease, stage 3 (moderate) (6) CAD (coronary artery disease) Assessment/Plan: s/p cabgx 3 continue asa/statin/plavix Code(s): I25.10 - ATHSCL HEART DISEASE OF [place] CORONARY ARTERY W/O ANG PCTRS Qualifiers: [place] vs. 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 representative insulin use: with termite control service representative use Diabetes mellitus complication status: with kidney complications Diabetes mellitus complication detail: with chronic kidney disease Chronic kidney disease stage: stage 3 (moderate) Qualified Code(s): E11.22 - Type 2 diabetes mellitus with diabetic chronic kidney disease; N18.3 - Chronic kidney disease, stage 3 (moderate); Z79.4 - termite helper (current) use of insulin (8) HTN (hypertension) Assessment/Plan: controlled continue home regimen Code(s): I10 - ESSENTIAL (PRIMARY) HYPERTENSION Qualifiers: Hypertension type: essential hypertension Qualified Code(s): I10 - Essential (primary) hypertension (10) Osteoarthritis, multiple sites Assessment/Plan: stable Code(s): M15.9 - POLYOSTEOARTHRITIS, UNSPECIFIED Qualifiers: Osteoarthritis type: primary Qualified Code(s): M15.0 - Primary generalized (osteo)arthritis (11) Low back pain Assessment/Plan: chronic PT analgesics prn Code(s): M54.5 - LOW BACK PAIN Qualifiers: Chronicity: chronic (12) Anemia Assessment/Plan: chronic hg/hct stable heme occult pending Code(s): D64.9 - ANEMIA, UNSPECIFIED Qualifiers: Anemia type: due to chronic kidney disease Chronic kidney disease stage: stage 3 (moderate) Qualified Code(s): N18.3 - Chronic kidney disease, stage 3 (moderate); D63.1 - Anemia in chronic kidney disease (13) Peripheral vascular disease Assessment/Plan: pad, stable continue statin/plavix/asa Code(s): I73.9 - PERIPHERAL VASCULAR DISEASE, UNSPECIFIED (14) Hypomagnesemia Assessment/Plan: Mg 1.7 Mg iv 2g x 1 monitor bmp Code(s): E83.42 - HYPOMAGNESEMIA Dispo: SNF when cardiology cleared Pt noted to have frequent readmissions, upon further exploration and discussion with pt, pt reports he was taking wrong medication/old metformin 1g bid at home. pt reports he recently moved and did not have rest of his meds. and therefore does not know what he was taking. Called pharmacy yesterday and pt has not refilled meds. Discussed in detail with pt and PCP regarding medication compliance and pt safety, encouraged SNF placement post hospital discharge, pt reports understanding and agreeable to SNF.
--- NOTE | 2018-04-30 12:30 | PN ---
Progress Note (short form) - Note Progress Note: s: no cp palps dizzy; sob improving o: Vital Signs Period Temp Pulse Resp BP Sys/El Pulse Ox Last 24 Hr 97.2 F-97.9 F 94-129 18-19 123-148/74-97 96-100 nad, +JVD rrr s1s2 no mrg cta bl, nl eff aaox3 no le e/c/c abd nt nd pos bs no jaundice diaphoresis +dp pt no carotid bruits Current Medications Generic Name Dose Route Start Last Admin Trade Name Freq PRN Reason Stop Dose Admin Acetaminophen 650 mg 04/28/18 03:51 Tylenol - PO BID PRN PAIN LEVEL 7 - 10 Acetylcysteine 200 mg 04/28/18 08:00 04/28/18 20:47 Mucomyst 20 Oral / Inh Use Only* NEB 200 mg RQID MANUJ Administration Albuterol Sulfate 1 amp 04/28/18 03:51 Ventolin 0.083% Nebulizer Soln - NEB Q4H PRN SHORTNESS OF BREATH Aspirin 81 mg 04/28/18 10:00 04/30/18 09:47 Asa - PO 81 mg DAILY MANJU Administration Atorvastatin Calcium 40 mg 04/28/18 22:00 04/29/18 21:22 Lipitor - PO 40 mg HS MANJU Administration Budesonide/Formoterol Fumarate 2 puff 04/28/18 10:00 04/30/18 09:45 Symbicort 80/4.5mcg - IH 2 puff BID MANJU Administration Clopidogrel Bisulfate 75 mg 04/28/18 10:00 04/30/18 09:46 Plavix - PO 75 mg DAILY MANJU Administration Cyclobenzaprine HCl 5 mg 04/29/18 22:00 04/29/18 21:22 Cyclobenzaprine Hcl PO 5 mg HS MANJU Administration Furosemide 80 mg 04/28/18 06:00 04/30/18 06:21 Lasix Injection - IVPUSH 80 mg BIDLASIX MANJU Administration Glipizide 5 mg 04/30/18 07:00 04/30/18 06:21 Glucotrol - PO 5 mg BID@0700,1630 MANJU Administration Insulin Aspart 1 vial 04/29/18 22:00 04/30/18 11:51 Novolog Vial Sliding Scale - SQ Not Given ACHS MANJU Protocol Melatonin 5 mg 04/29/18 20:28 04/29/18 21:23 Melatonin PO 5 mg HS PRN Administration INSOMNIA Metoprolol Succinate 50 mg 04/28/18 10:00 04/30/18 09:46 Toprol Xl - PO 50 mg BID MANJU Administration Pantoprazole Sodium 40 mg 04/28/18 10:00 04/30/18 09:46 Protonix - PO 40 mg DAILY MANJU Administration Potassium Phos/Sodium Phos 1 packet 04/30/18 14:00 Phos-Nak Packet - PO 05/01/18 06:01 TID MANJU Prednisone 40 mg 04/30/18 10:00 04/30/18 09:46 Deltasone - PO 05/02/18 10:01 40 mg DAILY MANJU Administration Prednisone 20 mg 05/03/18 10:00 Deltasone - PO 05/05/18 10:01 DAILY MANJU CBC, BMP 04/30/18 05:30 04/30/18 05:30 ECG: AFL, V-P, PVCs CXR: chf CT head: L thalamic infarct, unchanged from prior echo 06/2016: sev dec lvef, global hk, rv tds, trinity, mod-sev mr, mod tr, rvsp 50- 60 echo 06/2015: mild lve, mod-sev dec lvef, mod lae, nl rv size, mild dec rv fcn, mild-mod mr, mild tr, nl avr fcn, rvsp 30-40 04/14/18 ECHO MSH - moderate left ventricular dilatation overall severe decreased left ventricular systolic function (diffuse); estimated ejection fraction = 30 % The posterior wall is severely hypokinetic. Restrictive diastolic dysfunction normal right ventricular size moderate decreased right ventricular function aortic prosthesis (tissue) no evidence for aortic regurgitation moderate to severe mitral regurgitation mild to moderate tricuspid regurgitation moderate to severe pulmonary hypertension minimal pulmonic regurgitation no evidence for pericardial effusion technically difficult study Definity precision microbubble contrast used to enhance endocardial border definition mibi 06/2016 (pers): non-diagnostic STs; large area inferior/inferolateral/ lateral scar; no ischemia; severe LV cavity dilation; global HK with akinesis of inferior/inferolat/lateral allan; EF 16% mibi 09/2014: large inf scar, mod anteroapical ischemia, lvef 25% tele: 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 acute on chronic systolic CHF exacerbation: - [place] [facility] [place]was on lasix 80 po daily at home but it seems that pt was not taking his meds -continue lasix 80 mg IV BID - monitor daily cr, standing weights -cont carvedilol. not on ACEI due to h/o hyperkalemia alt mental status - CT head stable, workup per primary team atrial flutter: -pt in AFL on ekg -CHADS VASC 4, s/p watchiman device 04/20 on aspirin and plavix for 3 months cad/hx of CABG 2012 -no recent angina/ischemia -trop chronically in intermediate range, no change in current values, trend is flat, ck nl, not c/w acs -cont prior cad med regimen: asa, statin, bb, ccb bio avr: -nl fcn on echo 04/2018 mitral regurgitation: -likely functional MR, mild-mod on echo 06/19, then "mod-severe" when here 06/20 with suspected acute chf and pulm pressures up (though at risk for overestimation of MR severity on that echo report), mod to severe on echo at [facility] [place] -valve morphology not described (tethered leaflets?) -no murmur on exam -reassess MR severity on echo as outpt CVA: -age indeterminate L thalamic stroke on CT here 03/2019 - now s/p Watchman device 04/2018, cont aspirin and plavix CKD: -baseline creatinine 2-2.5; -renal fxn stable here pad: -stable, no claudication, cont current cardiac meds s/p icd: -no shocks on check earlier this month -routine outpt monitoring htn: -bp stable -cont home meds
[2018-04-30] MEDS: NAPH,MB-DB/K PH,MBDB POWDER PACKET PO SCH ×2 (13:25→21:41)
[2018-04-30] MEDS ORDERED: INSULIN (NOVOLOG) ASPART 100 UNITS/ML 10ML VIAL ONE (21:28)
[2018-04-30] MEDS: MELATONIN 5 MG TABLETS PO PRN (21:39)
[2018-04-30] MEDS: CYCLOBENZAPRINE HCL 5 MG TABLET PO SCH (21:39)
[2018-04-30] MEDS: ATORVASTATIN CA 40 MG TABLET (FP) PO SCH (21:40)
[2018-05-01] MEDS: INSULIN SLIDING SCALE (NOVOLOG) 1 VIAL SQ SCH ×4 (06:19→21:10)
[2018-05-01] MEDS: glipiZIDE 5 MG TABLET (FP) PO SCH ×2 (06:19→18:12)
[2018-05-01] MEDS: FUROSEMIDE 40 MG/4 ML INJECTABLE VIAL IVPUSH SCH ×2 (06:20→18:12)
[2018-05-01] MEDS: NAPH,MB-DB/K PH,MBDB POWDER PACKET PO SCH (06:20)
[2018-05-01 07:08] LABS: ANION GAP 9 MMOL/L (8-16); BLOOD UREA NITROGEN 45 mg/dL (7-18); CALCIUM 8.1 mg/dL (8.5-10.1); CHLORIDE 98 mmol/L (98-107); CO2 31 mmol/L (21-32); CREATININE 1.9 mg/dL (0.55-1.3); GLUCOSE,RANDOM 60 mg/dL (74-106); MAGNESIUM 1.8 mg/dL (1.8-2.4); PHOSPHOROUS 2.4 mg/dL (2.5-4.9); POTASSIUM 3.8 mmol/L (3.5-5.1); SODIUM 138 mmol/L (136-145)
[2018-05-01 07:09] LABS: BASO % 0.3 % (0-2.0); EOS % 0.5 % (0-4.5); HEMATOCRIT 30.2 % (35.4-49); HEMOGLOBIN 10.5 GM/dL (11.7-16.9); LYMPH % 9.6 % (8-40); MCH 31.9 pg (25.7-33.7); MCHC 34.6 g/dl (32.0-35.9); MEAN CELL VOLUME 92.2 fl (80-96); MEAN PLT VOLUME 8.3 fl (7.5-11.1); NEUT % 83.6 % (42.8-82.8); PLATELET COUNT 210 K/MM3 (134-434); RBC 3.28 M/mm3 (4.00-5.60); RDW 18.1 % (11.9-15.9)
--- NOTE | 2018-05-01 09:19 | PN ---
Progress Note, Physician Chief Complaint: sob History of Present Illness: acute, severe sob on DOA has completely resolved. now no sob at rest, but at times breathless with activity. no cp, palpitations, syncope no acute confusional episodes per pt and family at bedside + cigs - Current Medication List Current Medications: Active Medications Acetaminophen (Tylenol -) 650 mg PO BID PRN PRN Reason: PAIN LEVEL 7 - 10 Acetylcysteine (Mucomyst 20 Oral / Inh Use Only*) 200 mg NEB RQID [facility] Last Admin: 04/28/18 20:47 Dose: 200 mg Albuterol Sulfate (Ventolin 0.083% Nebulizer Soln -) 1 amp NEB Q4H PRN PRN Reason: SHORTNESS OF BREATH Aspirin (Asa -) 81 mg PO DAILY [facility] Last Admin: 04/30/18 09:47 Dose: 81 mg Atorvastatin Calcium (Lipitor -) 40 mg PO HS [facility] Last Admin: 04/30/18 21:40 Dose: 40 mg Budesonide/Formoterol Fumarate (Symbicort 80/4.5mcg -) 2 puff IH BID [facility] Last Admin: 04/30/18 21:41 Dose: 2 puff Clopidogrel Bisulfate (Plavix -) 75 mg PO DAILY [facility] Last Admin: 04/30/18 09:46 Dose: 75 mg Cyclobenzaprine HCl (Cyclobenzaprine Hcl) 5 mg PO HS [facility] Last Admin: 04/30/18 21:39 Dose: 5 mg Furosemide (Lasix Injection -) 80 mg IVPUSH BIDLASIX [facility] Last Admin: 05/01/18 06:20 Dose: 80 mg Glipizide (Glucotrol -) 5 mg PO BID@0700,1630 [facility] Last Admin: 05/01/18 06:19 Dose: Not Given Insulin Aspart (Novolog Vial Sliding Scale -) 1 vial SQ ACHS [facility]; Protocol Last Admin: 05/01/18 06:19 Dose: Not Given Melatonin (Melatonin) 5 mg PO HS PRN PRN Reason: INSOMNIA Last Admin: 04/30/18 21:39 Dose: 5 mg Metoprolol Succinate (Toprol Xl -) 50 mg PO BID [facility] Last Admin: 04/30/18 21:41 Dose: 50 mg Pantoprazole Sodium (Protonix -) 40 mg PO DAILY [facility] Last Admin: 04/30/18 09:46 Dose: 40 mg Prednisone (Deltasone -) 40 mg PO DAILY [facility] Stop: 05/02/18 10:01 Last Admin: 04/30/18 09:46 Dose: 40 mg Prednisone (Deltasone -) 20 mg PO DAILY [facility] Stop: 05/05/18 10:01 - Objective Vital Signs: Vital Signs Temperature 97.5 F L 05/01/18 06:00 Pulse Rate 130 H 05/01/18 06:00 Respiratory Rate 18 05/01/18 06:00 Blood Pressure 135/95 05/01/18 06:00 O2 Sat by Pulse Oximetry (%) 99 04/30/18 21:00 Constitutional: Yes: No Distress, Calm Eyes: No: Sclera Icterus HENT: No: Nasal Congestion Cardiovascular: Yes: Regular Rate and Rhythm, JVD (probable), S1, S2, Other ( PMI non diplaced). No: Gallop, Murmur Respiratory: Yes: CTA Bilaterally, Diminished (L base). No: Accessory Muscle Use, Rales, Wheezes Gastrointestinal: Yes: Normal Bowel Sounds, Soft. No: Tenderness Musculoskeletal: Yes: Other (No kyphosis) Extremities: No: Cold, Cyanosis Edema: Yes (1-2+ ankles) Integumentary: No: Jaundice Neurological: Yes: Alert, Oriented (x3) Psychiatric: No: Agitated Labs: CBC, BMP 05/01/18 05:30 05/01/18 05:30 INR, PTT INR 1.28 (0.83-1.09) H 04/28/18 05:35 Assessment/Plan ECG: AFL, V-P, PVCs CXR: chf CT head: L thalamic infarct, unchanged from prior echo 06/2016: sev dec lvef, global hk, rv tds, trinity, mod-sev mr, mod tr, rvsp 50- 60 echo 06/2015: mild lve, mod-sev dec lvef, mod lae, nl rv size, mild dec rv fcn, mild-mod mr, mild tr, nl avr fcn, rvsp 30-40 04/14/18 ECHO MSH - moderate left ventricular dilatation overall severe decreased left ventricular systolic function (diffuse); estimated ejection fraction = 30 % The posterior wall is severely hypokinetic. Restrictive diastolic dysfunction normal right ventricular size moderate decreased right ventricular function aortic prosthesis (tissue) no evidence for aortic regurgitation moderate to severe mitral regurgitation mild to moderate tricuspid regurgitation moderate to severe pulmonary hypertension minimal pulmonic regurgitation no evidence for pericardial effusion technically difficult study Definity precision microbubble contrast used to enhance endocardial border definition mibi 06/2016 (pers): non-diagnostic STs; large area inferior/inferolateral/ lateral scar; no ischemia; severe LV cavity dilation; global HK with akinesis of inferior/inferolat/lateral allan; EF 16% mibi 09/2014: large inf scar, mod anteroapical ischemia, lvef 25% tele: 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 acute on chronic systolic CHF exacerbation: -on recent discharge from [facility] [place] 179 lbs -was on lasix 80 po daily at home but med non-adherence is suspected here (pt admits to med problems due to had to move from his home just after he got out of [place]) -receiving lasix 80 mg IV BID -05/01: wt declining (186 to 182). renal fxn stable. sob much improved, likely still mildly vol overloaded. cont same lasix today -cont carvedilol. not on ACEI due to h/o hyperkalemia -[place] QRS is narrow, however he is mostly V-paced on ECG here. 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 to optimize his CHF prognosis mitral regurgitation: -likely functional MR, mild-mod on echo 06/19, then "mod-severe" when here 06/20 with suspected acute chf and pulm pressures up (though at risk for overestimation of MR severity on that echo report), mod to severe on echo at [facility] [place] 04/2018 -valve morphology not described (tethered leaflets?) -no murmur on exam -reassess MR severity on echo as outpt--pt would be a candidate for transcatheter delmar-clip repair (per COAPT study data) if severe MR persists despite optimization of volume status and LV remodeling med regimen +/- PLASTICS SPREAD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 CKD: -baseline creatinine 2-2.5; -renal fxn stable here alt mental status - had altered MS during recent admit, CT then with age-indeterminate CVA noted. - was hypoglycemic with EMS per family--? caused acute MS changes on DOA - CT head stable here - per hospitalist atrial flutter: -pt in persistent AFL during recent admit here -CHADS VASC 5. prohibitive falls risk, transferred to [place] recently for evaluation--randomized in Watchman trial -s/p watchman device 04/20--discharged on aspirin and plavix for 3 months protocol. continue same cad/hx of CABG 2012 -no recent angina/ischemia -trop chronically in intermediate range, no change in current values, trend is flat, ck nl, not c/w acs -cont prior cad med regimen: asa, statin, bb, ccb bio avr: -nl fcn on echo 04/2018 CVA: -age indeterminate L thalamic stroke on CT here 03/2019 - now s/p Watchman device 04/2018, cont aspirin and plavix pad: -stable, no claudication, cont current cardiac meds s/p icd: -no shocks on check earlier this month -routine outpt monitoring -usual K/Mag targets htn: -bp stable -cont home meds
[2018-05-01] MEDS ORDERED: MAGNESIUM SULF 50% (8.12 MEQ/2 ML-1 GM VIAL) IVPB ONE (09:20)
[2018-05-01] MEDS ORDERED: POTASSIUM CHLORIDE ORAL LIQUID 20 MEQ/15 ML PO ONE (09:20)
[2018-05-01] MEDS: BUDESONIDE/FORMETEROL FUMARATE 80/4.5 mcg INHALER IH SCH ×2 (10:00→21:11)
[2018-05-01] MEDS ORDERED: PT OWN MED DRAWER 7, Y5N ONE ×2 (10:45→20:58)
[2018-05-01] MEDS: CLOPIDOGREL BISULFATE 75 MG TABLET (FP) PO SCH (10:50)
[2018-05-01] MEDS: ASPIRIN 81 MG CHEWABLE TABLETS PO SCH (10:50)
[2018-05-01] MEDS: PANTOPRAZOLE 40 MG TABLET (FP) PO SCH (10:50)
[2018-05-01] MEDS: predniSONE 20 MG TABLET (UD) PO SCH (10:50)
[2018-05-01 11:02] LABS: ANISOCYTOSIS 0; MACROCYTOSIS 0; PLATELET ESTIMATE NORMAL
[2018-05-01] MEDS ORDERED: NAPH,MB-DB/K PH,MBDB POWDER PACKET PO ONE (11:48)
--- NOTE | 2018-05-01 11:48 | PN ---
Progress Note, Physician Chief Complaint: Mr Owen is without complaint today. Denies cp, sob, n/v. - Current Medication List Current Medications: Active Medications Acetaminophen (Tylenol -) 650 mg PO BID PRN PRN Reason: PAIN LEVEL 7 - 10 Acetylcysteine (Mucomyst 20 Oral / Inh Use Only*) 200 mg NEB RQID [facility] Last Admin: 04/28/18 20:47 Dose: 200 mg Albuterol Sulfate (Ventolin 0.083% Nebulizer Soln -) 1 amp NEB Q4H PRN PRN Reason: SHORTNESS OF BREATH Aspirin (Asa -) 81 mg PO DAILY [facility] Last Admin: 05/01/18 10:50 Dose: 81 mg Atorvastatin Calcium (Lipitor -) 40 mg PO HS [facility] Last Admin: 04/30/18 21:40 Dose: 40 mg Budesonide/Formoterol Fumarate (Symbicort 80/4.5mcg -) 2 puff IH BID [facility] Last Admin: 04/30/18 21:41 Dose: 2 puff Clopidogrel Bisulfate (Plavix -) 75 mg PO DAILY [facility] Last Admin: 05/01/18 10:50 Dose: 75 mg Cyclobenzaprine HCl (Cyclobenzaprine Hcl) 5 mg PO HS [facility] Last Admin: 04/30/18 21:39 Dose: 5 mg Furosemide (Lasix Injection -) 80 mg IVPUSH BIDLASIX [facility] Last Admin: 05/01/18 06:20 Dose: 80 mg Glipizide (Glucotrol -) 5 mg PO BID@0700,1630 [facility] Last Admin: 05/01/18 06:19 Dose: Not Given Insulin Aspart (Novolog Vial Sliding Scale -) 1 vial SQ [facility]; Protocol Last Admin: 05/01/18 06:19 Dose: Not Given Melatonin (Melatonin) 5 mg PO HS PRN PRN Reason: INSOMNIA Last Admin: 04/30/18 21:39 Dose: 5 mg Metoprolol Succinate (Toprol Xl -) 50 mg PO BID [facility] Last Admin: 04/30/18 21:41 Dose: 50 mg Pantoprazole Sodium (Protonix -) 40 mg PO DAILY [facility] Last Admin: 05/01/18 10:50 Dose: 40 mg Prednisone (Deltasone -) 40 mg PO DAILY [facility] Stop: 05/02/18 10:01 Last Admin: 05/01/18 10:50 Dose: 40 mg Prednisone (Deltasone -) 20 mg PO DAILY [facility] Stop: 05/05/18 10:01 - Objective Vital Signs: Vital Signs Temperature 36.4 C L 05/01/18 06:00 Pulse Rate 96 H 05/01/18 09:51 Respiratory Rate 18 05/01/18 09:51 Blood Pressure 125/92 05/01/18 09:51 O2 Sat by Pulse Oximetry (%) 99 04/30/18 21:00 Constitutional: Yes: Well Nourished, No Distress, Calm Cardiovascular: Yes: Pulse Irregular. No: Tachycardia, Gallop, Murmur, Rub Respiratory: Yes: Regular, CTA Bilaterally, On Nasal O2. No: Rales, Rhonchi, Wheezes Gastrointestinal: Yes: Normal Bowel Sounds, Soft. No: Distention, Tenderness Extremities: Yes: WNL Edema: No Labs: CBC, BMP 05/01/18 05:30 05/01/18 05:30 INR, PTT INR 1.28 (0.83-1.09) H 04/28/18 05:35 Assessment/Plan (1) Acute exacerbation of CHF (congestive heart failure) Assessment/Plan: -appreciate cardiology assistance and note reviewed -continue IV lasix Code(s): I50.9 - HEART FAILURE, UNSPECIFIED Qualifiers: Heart failure type: combined systolic and diastolic Qualified Code(s): I50.43 - Acute on chronic combined systolic (congestive) and diastolic ( congestive) heart failure (2) Metabolic encephalopathy Assessment/Plan: -resolved Code(s): G93.41 - METABOLIC ENCEPHALOPATHY (3) Atrial flutter Assessment/Plan: -hr >100s this am -s/p watchman's device 04/2018 -continue metoprolol -continue asa/plavix x 3 months -cardiology following Code(s): I48.92 - UNSPECIFIED ATRIAL FLUTTER (4) CHF (congestive heart failure) Assessment/Plan: -s/p icd -as above Code(s): I50.9 - HEART FAILURE, UNSPECIFIED (5) COPD (chronic obstructive pulmonary disease) Assessment/Plan: -chronic, O2 dependent -continue nebs Code(s): J44.9 - CHRONIC OBSTRUCTIVE PULMONARY DISEASE, UNSPECIFIED (5) Chronic kidney disease (CKD) Assessment/Plan: -stable Code(s): N18.9 - CHRONIC KIDNEY DISEASE, UNSPECIFIED Qualifiers: Chronic kidney disease stage: stage 3 (moderate) Qualified Code(s): N18.3 - Chronic kidney disease, stage 3 (moderate) (6) CAD (coronary artery disease) Assessment/Plan: -s/p cabgx 3 -continue asa/statin/plavix Code(s): I25.10 - ATHSCL HEART DISEASE OF [place] CORONARY ARTERY W/O ANG PCTRS Qualifiers: [place] vs. transplanted heart: [place] heart Associated angina: without angina (7) Diabetes Assessment/Plan: -continue bid glipizide -may need readjustment with decreasing prednisone Code(s): E11.9 - TYPE 2 DIABETES MELLITUS WITHOUT COMPLICATIONS Qualifiers: Diabetes mellitus type: type 2 Diabetes mellitus intermediate school teacher insulin use: with intermediate school teacher use Diabetes mellitus complication status: with kidney complications Diabetes mellitus complication detail: with chronic kidney disease Chronic kidney disease stage: stage 3 (moderate) Qualified Code(s): E11.22 - Type 2 diabetes mellitus with diabetic chronic kidney disease; N18.3 - Chronic kidney disease, stage 3 (moderate); Z79.4 - nursing home (current) use of insulin (8) HTN (hypertension) Assessment/Plan: -controlled -continue home regimen Code(s): I10 - ESSENTIAL (PRIMARY) HYPERTENSION Qualifiers: Hypertension type: essential hypertension Qualified Code(s): I10 - Essential (primary) hypertension (10) Osteoarthritis, multiple sites Assessment/Plan: -stable Code(s): M15.9 - POLYOSTEOARTHRITIS, UNSPECIFIED Qualifiers: Osteoarthritis type: primary Qualified Code(s): M15.0 - Primary generalized (osteo)arthritis (11) Low back pain Assessment/Plan: -chronic -PT -analgesics prn Code(s): M54.5 - LOW BACK PAIN Qualifiers: Chronicity: chronic (12) Anemia Assessment/Plan: -chronic -hg/hct stable Code(s): D64.9 - ANEMIA, UNSPECIFIED Qualifiers: Anemia type: due to chronic kidney disease Chronic kidney disease stage: stage 3 (moderate) Qualified Code(s): N18.3 - Chronic kidney disease, stage 3 (moderate); D63.1 - Anemia in chronic kidney disease (13) Peripheral vascular disease Assessment/Plan: -pad, stable -continue statin/plavix/asa Code(s): I73.9 - PERIPHERAL VASCULAR DISEASE, UNSPECIFIED (14) Hypophosphatemia Assessment/Plan: -replace
[2018-05-01] MEDS: ATORVASTATIN CA 40 MG TABLET (FP) PO SCH (21:10)
[2018-05-01] MEDS: MELATONIN 5 MG TABLETS PO PRN (21:10)
[2018-05-01] MEDS: CYCLOBENZAPRINE HCL 5 MG TABLET PO SCH (21:52)
[2018-05-02] MEDS: FUROSEMIDE 40 MG/4 ML INJECTABLE VIAL IVPUSH SCH (06:51)
[2018-05-02] MEDS: INSULIN SLIDING SCALE (NOVOLOG) 1 VIAL SQ SCH (06:51)
[2018-05-02] MEDS: glipiZIDE 5 MG TABLET (FP) PO SCH (06:51)
[2018-05-02 07:02] LABS: BASO % 0.3 % (0-2.0); EOS % 0.8 % (0-4.5); HEMOGLOBIN 10.7 GM/dL (11.7-16.9); LYMPH % 6.9 % (8-40); MCH 31.6 pg (25.7-33.7); MCHC 34.5 g/dl (32.0-35.9); MEAN CELL VOLUME 91.5 fl (80-96); MEAN PLT VOLUME 8.2 fl (7.5-11.1); MONO % 7.4 % (3.8-10.2); NEUT % 84.6 % (42.8-82.8); PLATELET COUNT 216 K/MM3 (134-434); RBC 3.39 M/mm3 (4.00-5.60); RDW 18.3 % (11.9-15.9); WHITE BLOOD COUNT 13.1 K/mm3 (4.0-10.0)
[2018-05-02 07:14] LABS: ANION GAP 9 MMOL/L (8-16); BLOOD UREA NITROGEN 44 mg/dL (7-18); CALCIUM 8.2 mg/dL (8.5-10.1); CHLORIDE 98 mmol/L (98-107); CO2 33 mmol/L (21-32); CREATININE 1.6 mg/dL (0.55-1.3); MAGNESIUM 2.1 mg/dL (1.8-2.4); PHOSPHOROUS 2.9 mg/dL (2.5-4.9); POTASSIUM 3.6 mmol/L (3.5-5.1); SODIUM 140 mmol/L (136-145)
[2018-05-02 08:09] LABS: GLUCOSE,RANDOM 45 mg/dL (74-106)
[2018-05-02] MEDS ORDERED: POTASSIUM CHLORIDE ORAL LIQUID 20 MEQ/15 ML PO ONE (09:15)
--- NOTE | 2018-05-02 09:17 | PN ---
Progress Note, Physician Chief Complaint: sob History of Present Illness: no sob or orthopnea at all overnight/today per pt no leg swelling noted no cp, palpit + cigs hx - Current Medication List Current Medications: Active Medications Acetaminophen (Tylenol -) 650 mg PO BID PRN PRN Reason: PAIN LEVEL 7 - 10 Acetylcysteine (Mucomyst 20 Oral / Inh Use Only*) 200 mg NEB RQID [facility] Last Admin: 04/28/18 20:47 Dose: 200 mg Albuterol Sulfate (Ventolin 0.083% Nebulizer Soln -) 1 amp NEB Q4H PRN PRN Reason: SHORTNESS OF BREATH Aspirin (Asa -) 81 mg PO DAILY [facility] Last Admin: 05/01/18 10:50 Dose: 81 mg Atorvastatin Calcium (Lipitor -) 40 mg PO HS [facility] Last Admin: 05/01/18 21:10 Dose: 40 mg Budesonide/Formoterol Fumarate (Symbicort 80/4.5mcg -) 2 puff IH BID [facility] Last Admin: 05/01/18 21:11 Dose: 2 puff Clopidogrel Bisulfate (Plavix -) 75 mg PO DAILY [facility] Last Admin: 05/01/18 10:50 Dose: 75 mg Cyclobenzaprine HCl (Cyclobenzaprine Hcl) 5 mg PO HS [facility] Last Admin: 05/01/18 21:52 Dose: 5 mg Furosemide (Lasix Injection -) 80 mg IVPUSH BIDLASIX [facility] Last Admin: 05/02/18 06:51 Dose: 80 mg Glipizide (Glucotrol -) 5 mg PO BID@0700,1630 [facility] Last Admin: 05/02/18 06:51 Dose: Not Given Melatonin (Melatonin) 5 mg PO HS PRN PRN Reason: INSOMNIA Last Admin: 05/01/18 21:10 Dose: 5 mg Metoprolol Succinate (Toprol Xl -) 50 mg PO BID [facility] Last Admin: 05/01/18 21:11 Dose: 50 mg Pantoprazole Sodium (Protonix -) 40 mg PO DAILY [facility] Last Admin: 05/01/18 10:50 Dose: 40 mg Prednisone (Deltasone -) 40 mg PO DAILY [facility] Stop: 05/02/18 10:01 Last Admin: 05/01/18 10:50 Dose: 40 mg Prednisone (Deltasone -) 20 mg PO DAILY [facility] Stop: 05/05/18 10:01 - Objective Vital Signs: Vital Signs Temperature 97.6 F 05/02/18 06:00 Pulse Rate 65 05/02/18 06:00 Respiratory Rate 20 05/02/18 06:00 Blood Pressure 138/74 05/02/18 06:00 O2 Sat by Pulse Oximetry (%) 100 05/01/18 21:00 Constitutional: Yes: No Distress, Calm Eyes: No: Sclera Icterus HENT: No: Nasal Congestion Cardiovascular: Yes: Regular Rate and Rhythm, S1, S2, Other (PMI non diplaced). No: JVD (seated in chair), Gallop, Murmur Respiratory: Yes: CTA Bilaterally, Rales (faint L base). No: Accessory Muscle Use, Wheezes Gastrointestinal: Yes: Normal Bowel Sounds, Soft. No: Tenderness Musculoskeletal: Yes: Other (No kyphosis) Extremities: No: Cold, Cyanosis Edema: Yes (2+ ankles) Integumentary: No: Jaundice Neurological: Yes: Alert, Oriented (x3) Psychiatric: No: Agitated Labs: CBC, BMP 05/02/18 05:30 05/02/18 05:30 INR, PTT INR 1.28 (0.83-1.09) H 04/28/18 05:35 Assessment/Plan ECG: AFL, V-P, PVCs CXR: chf CT head: L thalamic infarct, unchanged from prior echo 06/2016: sev dec lvef, global hk, rv tds, trinity, mod-sev mr, mod tr, rvsp 50- 60 echo 06/2015: mild lve, mod-sev dec lvef, mod lae, nl rv size, mild dec rv fcn, mild-mod mr, mild tr, nl avr fcn, rvsp 30-40 04/14/18 ECHO MSH - moderate left ventricular dilatation overall severe decreased left ventricular systolic function (diffuse); estimated ejection fraction = 30 % The posterior wall is severely hypokinetic. Restrictive diastolic dysfunction normal right ventricular size moderate decreased right ventricular function aortic prosthesis (tissue) no evidence for aortic regurgitation moderate to severe mitral regurgitation mild to moderate tricuspid regurgitation moderate to severe pulmonary hypertension minimal pulmonic regurgitation no evidence for pericardial effusion technically difficult study Definity precision microbubble contrast used to enhance endocardial border definition mibi 06/2016 (pers): non-diagnostic STs; large area inferior/inferolateral/ lateral scar; no ischemia; severe LV cavity dilation; global HK with akinesis of inferior/inferolat/lateral allan; EF 16% mibi 09/2014: large inf scar, mod anteroapical ischemia, lvef 25% tele: AFL HR controlled, PVCs (no VT) a/p: 62 m hx copd, cabgx3 2012, bio avr 2012, pad s/p b/l sfa occlusions, syst chf s/p medtronic icd, htn, hld, a-tach, here with back pain, sob. acute on chronic systolic CHF exacerbation: -[place] [facility] [place] -was on lasix 80 po daily at home but med non-adherence is suspected here (pt admits to med problems due to had to move from his home just after he got out of [place]) -receiving lasix 80 mg IV BID -05/01: wt declining (186 to 182). renal fxn stable. sob much improved, likely still mildly vol overloaded. cont same lasix today -05/02: wt coming down still, renal fxn improving. appears nearly euvolemic, no more sob. change iv lasix to 80 po daily. -cont carvedilol. not on ACEI due to h/o hyperkalemia -[place] QRS is narrow, however he is mostly V-paced on ECG here. 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 DOOR FRAME ASSEMBLER MACHINE upgrade to optimize his CHF prognosis mitral regurgitation: -likely functional MR, mild-mod on echo 06/19, then "mod-severe" when here 06/20 with suspected acute chf and pulm pressures up (though at risk for overestimation of MR severity on that echo report), mod to severe on echo [place] [facility] [place] -valve morphology not described (tethered leaflets?) -no murmur on exam -reassess MR severity on echo as outpt--pt would be a candidate for transcatheter [place]-clip repair (per COAPT study data) if severe MR persists despite optimization of volume status and LV remodeling med regimen +/- DOOR FRAME ASSEMBLER MACHINE CKD: -baseline creatinine 2-2.5; -renal fxn stable here alt mental status - had altered MS during recent admit, CT then with age-indeterminate CVA noted. - was hypoglycemic with EMS per family--? caused acute MS changes on DOA - CT head stable here - per hospitalist atrial flutter: -pt in persistent AFL during recent admit here -CHADS VASC 5. prohibitive falls risk, transferred to [place] recently for evaluation--randomized in Watchman trial -s/p watchman device 04/20--discharged on aspirin and plavix for 3 months protocol. continue same cad/hx of CABG 2012 -no recent angina/ischemia -trop chronically in intermediate range, no change in current values, trend is flat, ck nl, not c/w acs -cont prior cad med regimen: asa, statin, bb, ccb bio avr: -nl fcn on echo 04/2018 CVA: -age indeterminate L thalamic stroke on CT here 03/2019 - now s/p Watchman device 04/2018, cont aspirin and plavix pad: -stable, no claudication, cont current cardiac meds s/p icd: -no shocks on check earlier this month -routine outpt monitoring -usual K/Mag targets, being repleted (but will require signif less supplementation with much lower effective lasix dose now that changing to 80 po qd) htn: -bp stable -cont home meds OK FOR D/C FROM [facility]SHOULD SEE DR BLACK 1-2 WKS
[2018-05-02] MEDS: predniSONE 20 MG TABLET (UD) PO SCH (09:57)
[2018-05-02] MEDS: ASPIRIN 81 MG CHEWABLE TABLETS PO SCH (09:57)
[2018-05-02] MEDS: CLOPIDOGREL BISULFATE 75 MG TABLET (FP) PO SCH (09:57)
[2018-05-02] MEDS: PANTOPRAZOLE 40 MG TABLET (FP) PO SCH (09:57)
[2018-05-02] MEDS: BUDESONIDE/FORMETEROL FUMARATE 80/4.5 mcg INHALER IH SCH (09:58)
[2018-05-02 10:13] LABS: ANISOCYTOSIS 1+; PLATELET ESTIMATE NORMAL
[2018-05-02] MEDS ORDERED: FUROSEMIDE 40 MG TABLET (FP) PO SCH (11:30)
[2018-05-02 14:59] VITALS: BP 132/68; PULSE 82; TEMP 97.5
--- NOTE | 2018-05-02 15:03 | DS ---
Physical Examination Vital Signs: Vital Signs Temperature 36.4 C L 05/02/18 14:57 Pulse Rate 82 05/02/18 14:57 Respiratory Rate 20 05/02/18 14:57 Blood Pressure 132/68 05/02/18 14:57 O2 Sat by Pulse Oximetry (%) 100 05/01/18 21:00 Constitutional: Yes: Well Nourished, No Distress, Calm Cardiovascular: Yes: Pulse Irregular. No: Gallop, Murmur, Rub Respiratory: Yes: Regular, CTA Bilaterally, On Nasal O2. No: Rales, Rhonchi, Wheezes Gastrointestinal: Yes: Normal Bowel Sounds, Soft. No: Distention, Tenderness Extremities: Yes: WNL Edema: No Labs: CBC, BMP 05/02/18 05:30 05/02/18 05:30 Discharge Summary Reason For Visit: CONGESTIVE HEART FAILURE HYPOXIA CHRONIC OBSTRUCTI Current Active Problems Altered mental status (Acute) Atrial flutter (Acute) Hypoglycemia (Acute) Hypomagnesemia (Acute) Lethargy (Acute) Metabolic encephalopathy (Acute) Hospital Course: (1) Acute exacerbation of CHF (congestive heart failure) Code(s): I50.9 - HEART FAILURE, UNSPECIFIED Qualifiers: Heart failure type: combined systolic and diastolic Qualified Code(s): I50.43 - Acute on chronic combined systolic (congestive) and diastolic ( congestive) heart failure (2) Metabolic encephalopathy Code(s): G93.41 - METABOLIC ENCEPHALOPATHY (3) Atrial flutter Code(s): I48.92 - UNSPECIFIED ATRIAL FLUTTER (4) CHF (congestive heart failure) Code(s): I50.9 - HEART FAILURE, UNSPECIFIED (5) COPD (chronic obstructive pulmonary disease) Code(s): J44.9 - CHRONIC OBSTRUCTIVE PULMONARY DISEASE, UNSPECIFIED (5) Chronic kidney disease (CKD) Code(s): N18.9 - CHRONIC KIDNEY DISEASE, UNSPECIFIED Qualifiers: Chronic kidney disease stage: stage 3 (moderate) Qualified Code(s): N18.3 - Chronic kidney disease, stage 3 (moderate) (6) CAD (coronary artery disease) Code(s): I25.10 - ATHSCL HEART DISEASE OF [place] CORONARY ARTERY W/O ANG PCTRS Qualifiers: [place] vs. transplanted heart: [place] heart Associated angina: without angina (7) Diabetes Code(s): E11.9 - TYPE 2 DIABETES MELLITUS WITHOUT COMPLICATIONS Qualifiers: Diabetes mellitus type: type 2 Diabetes mellitus fdc insulin use: with learning and development administrator use Diabetes mellitus complication status: with kidney complications Diabetes mellitus complication detail: with chronic kidney disease Chronic kidney disease stage: stage 3 (moderate) Qualified Code(s): E11.22 - Type 2 diabetes mellitus with diabetic chronic kidney disease; N18.3 - Chronic kidney disease, stage 3 (moderate); Z79.4 - care home (current) use of insulin (8) HTN (hypertension) Code(s): I10 - ESSENTIAL (PRIMARY) HYPERTENSION Qualifiers: Hypertension type: essential hypertension Qualified Code(s): I10 - Essential (primary) hypertension (10) Osteoarthritis, multiple sites Code(s): M15.9 - POLYOSTEOARTHRITIS, UNSPECIFIED Qualifiers: Osteoarthritis type: primary Qualified Code(s): M15.0 - Primary generalized (osteo)arthritis (11) Low back pain Code(s): M54.5 - LOW BACK PAIN Qualifiers: Chronicity: chronic (12) Anemia Code(s): D64.9 - ANEMIA, UNSPECIFIED Qualifiers: Anemia type: due to chronic kidney disease Chronic kidney disease stage: stage 3 (moderate) Qualified Code(s): N18.3 - Chronic kidney disease, stage 3 (moderate); D63.1 - Anemia in chronic kidney disease (13) Peripheral vascular disease Code(s): I73.9 - PERIPHERAL VASCULAR DISEASE, UNSPECIFIED (14) Hypophosphatemia Mr Owen is a 62 year old male who presented to the hospital with AMS and was found to be hypoglycemic after taking metformin. He has been presenting frequently over the past 2-3 months, and even though he said he was compliant with his medications at home when his pharmacy was called he was not picking up his medications. He also recently found an old prescription of metformin and decided to start taking it and presented with hypoglycemia. On admission he also was in CHF exacerbation and COPD exacerbation from non-compliance. He was admitted to telemetry and seen by cardiology. He was diuresed with IV lasix and improved. He was placed on glipizide for blood sugar control. His heart rate was controlled with toprol xl. He cannot be on anticoagulation at this time secondary to fall risk but this may improve. He is on aspirin and plavix for 3 months since he has a Watchmann's device placed. He can be discharged on a prednisone taper. Possible rehab placement was explored, however he does not qualify. He will be discharged home with [facility] to assist in medication compliance. He is currently stable for discharge with close follow up. He was written for a prescription for all his home meds this discharge. 40 minutes spent in preparation of this discharge Condition: Stable - Instructions Diet, Activity, Other Instructions: low salt, diabetic diet. Resume previous activity. Referrals: Kanu Truong MD [Primary Care Provider] - 1 Week Anthony Zafar MD [Staff Physician] - Disposition: VNS/HOME HEALTH CARE - Home Medications Comprehensive Discharge Medication List: Ambulatory Orders Albuterol 0.083% Nebulizer Rosy [Ventolin 0.083% Nebulizer Soln -] 1 amp NEB Q4H PRN #30 amp 05/02/18 Aspirin [ASA -] 81 mg PO DAILY #30 tab.chew 05/02/18 Atorvastatin Ca [Lipitor] 40 mg PO HS #30 tablet 05/02/18 Budesonide/Formeterol Fumarate [SYMBICORT 80/4.5mcg -] 2 puff IH BID #1 inhaler 05/02/18 Cholecalciferol (Vitamin D3) [Vitamin D3] 2,000 unit PO DAILY #30 capsule Clopidogrel Bisulfate [Plavix -] 75 mg PO DAILY #30 tablet 05/02/18 Cyclobenzaprine HCl 5 mg PO HS #30 tablet 05/02/18 Docusate Sodium [Colace -] 100 mg PO TID #90 capsule 05/02/18 Furosemide [Lasix -] 80 mg PO DAILY #60 tablet 05/02/18 Glipizide [Glucotrol -] 5 mg PO BID@0700,1630 #60 tablet 05/02/18 Lactulose [Cephulac -] 10 - 20 gm PO DAILY PRN #1 bottle 05/02/18 Melatonin 5 mg PO HS PRN #30 tab 05/02/18 Metoprolol Succinate [Toprol XL -] 50 mg PO BID #60 tab.sr.24h 05/02/18 Nebulizer [Compact Compressor Nebulizer] 1 each MC ASDIR #1 each 05/02/18 Pantoprazole Sodium [Protonix -] 40 mg PO DAILY #30 tablet.ec 05/02/18 Psyllium [Metamucil (Sugar-Free) -] 5.85 gm PO BID #1 bottle 05/02/18 Ranitidine [Zantac -] 150 mg PO HS #30 tablet 05/02/18 Sennosides [Senna -] 2 tab PO HS PRN #30 tablet 05/02/18 predniSONE [Deltasone -] 5 mg PO ASDIR #32 tab 05/02/18
[2018-05-03] MEDS ORDERED: predniSONE 20 MG TABLET (UD) PO SCH (10:00)
== END 2018-05-02 17:19 | disposition home health service (06) | DRG 637 ==
LOC: JER 19:36 → JERBED 23:48 → J4W 04-28 22:23
PROVIDERS: ADMIT Internal Medicine; ATTEND Internal Medicine
DX: E11.649 Type 2 diabetes mellitus with hypoglycemia without coma (principal); I50.43 Acute on chronic combined systolic (congestive) and diastolic (congestive) heart failure; G93.41 Metabolic encephalopathy; I48.92 Unspecified atrial flutter; J98.11 Atelectasis; I13.0 Hypertensive heart and chronic kidney disease with heart failure and stage 1 through stage 4 chronic kidney disease, or unspecified chronic kidney disease; E11.22 Type 2 diabetes mellitus with diabetic chronic kidney disease; R41.82 Altered mental status, unspecified; E83.42 Hypomagnesemia; J44.9 Chronic obstructive pulmonary disease, unspecified; I25.10 Atherosclerotic heart disease of native coronary artery without angina pectoris; D63.1 Anemia in chronic kidney disease; M54.5 Low back pain; I73.9 Peripheral vascular disease, unspecified; E83.39 Other disorders of phosphorus metabolism; I34.0 Nonrheumatic mitral (valve) insufficiency; N18.3 Chronic kidney disease, stage 3 (moderate); I48.91 Unspecified atrial fibrillation; K59.00 Constipation, unspecified; Z95.1 Presence of aortocoronary bypass graft
CPT/HCPCS: 36415; 36600; 70450-TC; 71045-TC-FY; 80048; 80053; 81003; 81015; 82140; 82272; 82375; 82550; 82803; 82962; 83036; 83050; 83605; 83735; 83880; 84100; 84484; 85025; 85027; 85610; 85730; 87040; 87086; 87633; 87804; 93005; 93010; 93971-TC; 94640; 97116-GP; 97161-GP; 99285-25

== ENCOUNTER 2018-05-28 08:40 | Inpatient (IN) | payer OTHER ==
--- NOTE | 2018-05-28 09:13 | PDOC ---
Attending Attestation - HPI HPI: 05/28/18 09:52 The patient is a 62-year-old male with a past medical history significant for COPD (on 2L home O2 PRN) HTN, IDDM, Systolic CHF, Afib, CAD s/p CABG) PPM and watchman placement present to the emergency department with shortness of breath. The patient presents with 2-3 days of shortness of breath. The patient presents with 2-3 days of worsening shortness of breath, associated with orthopnea, difficulty ambulation, and decreased appetite. Per family member at the bedside, the patient was seen at Dr. Melo office 2 days prior to the symptoms and states his Lasix medication was increased to 160, without relief. Denies fever, chills, chest pain, nausea, vomiting, diarrhea. Allergies: Codeine, Gabapentin Social history: Former smoker Surgical history: Watchman, CABG, PPM PCP: Dr. Truong. - Physicial Exam PE: 05/28/18 09:51 GENERAL: The patient is in respiratory distress with the use of accessory muscles. HEAD: Normal with no signs of trauma. EYES: PERRLA, EOMI, sclera anicteric, conjunctiva clear. ENT: Ears normal, nares patent, oropharynx clear without exudates. Moist mucous membranes. NECK: Normal range of motion, supple without lymphadenopathy, JVD, or masses. LUNGS: +diminished breath sounds at the base. No crackles or wheezing. HEART: Irregular rhythm with murmur. No rubs or gallop. ABDOMEN: Soft, nontender. No guarding, no rebound. No masses palpable. EXTREMITIES: +3+ pitting edema to the thighs. No clubbing or cyanosis. No erythema, or tenderness. NEUROLOGICAL: Cranial nerves II through XII grossly intact. Normal speech. No focal neurological deficits. MUSCULOSKELETAL: Back nontender to palpation, no CVA tenderness SKIN: Warm, Dry, normal turgor, no rashes or lesions noted. - Medical Decision Making 05/28/18 09:51 Documentation prepared by Ileana Mahan, acting as medical office worker for Marcela Joshua MD. <Ileana Mahan - Last Filed: 05/28/18 09:51> - Resident Resident Name: Baltazar Kim - ED Attending Attestation I have performed the following: I have examined & evaluated the patient, The case was reviewed & discussed with the resident, I agree w/resident's findings & plan, Exceptions are as noted - Medical Decision Making 05/28/18 09:57 Laboratory Tests 05/28/18 05/28/18 02:29 02:29 WBC 16.4 H Hgb 12.4 Hct 37.1 D Plt Count 361 D Neutrophils % 84.6 H INR 1.58 H CXR - atalectasis with fluid at the left base Pt seen by Dr Zafar in the ER CMP pending 05/28/18 10:36 Laboratory Tests 05/02/18 05/28/18 05:30 02:29 Sodium 132 L Potassium 6.0 H Chloride 98 Carbon Dioxide 23 BUN 44 H 47 H Creatinine 1.6 H 2.3 H Random Glucose 45 L* 139 H Creatine Kinase 197 Troponin I 0.29 H B-Natriuretic Peptide 62698.6 H CHF most likely Will treat hyperkalemia Lasix given Will admit to hospitalist <Marcela Joshua - Last Filed: 05/29/18 08:26>
[2018-05-28 09:19] LABS: BASO % 0.7 % (0-2.0); EOS % 0.4 % (0-4.5); HEMATOCRIT 37.1 % (35.4-49); HEMOGLOBIN 12.4 GM/dL (11.7-16.9); LYMPH % 4.4 % (8-40); MCH 31.7 pg (25.7-33.7); MCHC 33.3 g/dl (32.0-35.9); MEAN PLT VOLUME 8.6 fl (7.5-11.1); MONO % 9.9 % (3.8-10.2); NEUT % 84.6 % (42.8-82.8); PLATELET COUNT 361 K/MM3 (134-434); RBC 3.91 M/mm3 (4.00-5.60); RDW 20.7 % (11.9-15.9); WHITE BLOOD COUNT 16.4 K/mm3 (4.0-10.0)
[2018-05-28 09:31] LABS: INR 1.58 (0.83-1.09); PROTHROMBIN TIME (PATIENT) 18.7 SEC (9.7-13.0)
[2018-05-28] MEDS ORDERED: FUROSEMIDE 40 MG/4 ML INJECTABLE VIAL IVPUSH ONE ×2 (10:03→16:00)
[2018-05-28] MEDS ORDERED: FUROSEMIDE 40 MG/4 ML INJECTABLE VIAL ONE ×2 (10:07→15:44)
[2018-05-28 10:11] LABS: ALBUMIN 2.4 g/dl (3.4-5.0); ALK PHOS 121 U/L (45-117); ANION GAP 11 MMOL/L (8-16); BILIRUBIN,TOTAL 1.4 mg/dL (0.2-1); BLOOD UREA NITROGEN 47 mg/dL (7-18); CALCIUM 8.3 mg/dL (8.5-10.1); CHLORIDE 98 mmol/L (98-107); CO2 23 mmol/L (21-32); CREATININE 2.3 mg/dL (0.55-1.3); GLUCOSE,RANDOM 139 mg/dL (74-106); MAGNESIUM 1.7 mg/dL (1.8-2.4); N-TERMINAL BNP 59791.6 pg/ml (5-125); SGOT/AST 91 U/L (15-37); SGPT/ALT 14 U/L (13-61); SODIUM 132 mmol/L (136-145); TOT PROT 6.5 g/dl (6.4-8.2)
--- NOTE | 2018-05-28 10:33 | CON.CARD ---
Cardiology Consult (text) - Consultation Consultation Note: cc: sob, le edema hpi: 62 m hx copd, cabgx3 2012, bio avr 2012, pad s/p b/l sfa occlusions, syst chf s/p medtronic icd, htn, hld, a-tach, aflutter s/p watchman 04/2018 here with sob, le edema. He was recently admitted to [facility] for CHF exacerbation and influenza, transferred to [facility] for Watchman device which was placed 04/20, discharged 04/21 on 3 month course of aspirin and plavix. Then came to ER again with CHF 2/2 med noncompliance. Was diuresed and discharged and did well initially but then stopped his lasix and other meds for several days and developed vol overload again. He was seen in office and lasix increased but still with chf sxs so came to ER. Complains of worse le edema and mckay. No cp palps dizzy loc. Sees Dr. Zafar for cardio. pmh: per hpi psh: cabg, avr, icd, watchman social: +tob fam: no premature cad ros: per hpi; no nvd, fever, wt loss, rash, hematuria, gib, nasal congestion, [place] , vision changes meds: Ambulatory Orders Albuterol 0.083% Nebulizer Rosy [Ventolin 0.083% Nebulizer Soln -] 1 amp NEB Q4H PRN #30 amp 05/02/18 Aspirin [ASA -] 81 mg PO DAILY #30 tab.chew 05/02/18 Atorvastatin Ca [Lipitor] 40 mg PO HS #30 tablet 05/02/18 Budesonide/Formeterol Fumarate [SYMBICORT 80/4.5mcg -] 2 puff IH BID #1 inhaler 05/02/18 Cholecalciferol (Vitamin D3) [Vitamin D3] 2,000 unit PO DAILY #30 capsule Clopidogrel Bisulfate [Plavix -] 75 mg PO DAILY #30 tablet 05/02/18 Cyclobenzaprine HCl 5 mg PO HS #30 tablet 05/02/18 Docusate Sodium [Colace -] 100 mg PO TID #90 capsule 05/02/18 Furosemide [Lasix -] 80 mg PO DAILY #60 tablet 05/02/18 Glipizide [Glucotrol -] 5 mg PO BID@0700,1630 #60 tablet 05/02/18 Lactulose [Cephulac -] 10 - 20 gm PO DAILY PRN #1 bottle 05/02/18 Melatonin 5 mg PO HS PRN #30 tab 05/02/18 Metoprolol Succinate [Toprol XL -] 50 mg PO BID #60 tab.sr.24h 05/02/18 Nebulizer [Compact Compressor Nebulizer] 1 each MC ASDIR #1 each 05/02/18 Pantoprazole Sodium [Protonix -] 40 mg PO DAILY #30 tablet.ec 05/02/18 Psyllium [Metamucil (Sugar-Free) -] 5.85 gm PO BID #1 bottle 05/02/18 Ranitidine [Zantac -] 150 mg PO HS #30 tablet 05/02/18 Sennosides [Senna -] 2 tab PO HS PRN #30 tablet 05/02/18 predniSONE [Deltasone -] 5 mg PO ASDIR #32 tab 05/02/18 Oxycodone HCl/Acetaminophen [Percocet 10-325 mg Tablet] 1 each PO TID PRN #80 tablet MDD 3 05/21/18 pe: Vital Signs Period Temp Pulse Resp BP Sys/El Pulse Ox Last 24 Hr 98.3 F-99.0 F 56-83 20-26 143-152/95-100 98-100 nad, +JVD rrr s1s2 no mrg rales at bases freida, nl eff aaox3 2+ le edema bl with weeping abd nt nd pos bs no jaundice diaphoresis +dp pt no carotid bruits Laboratory Last Values WBC 16.4 K/mm3 (4.0-10.0) H 05/28/18 02:29 RBC 3.91 M/mm3 (4.00-5.60) L 05/28/18 02:29 Hgb 12.4 GM/dL (11.7-16.9) 05/28/18 02:29 Hct 37.1 % (35.4-49) D 05/28/18 02:29 MCV 95.0 fl (80-96) 05/28/18 02:29 MCH 31.7 pg (25.7-33.7) 05/28/18 02:29 MCHC 33.3 g/dl (32.0-35.9) 05/28/18 02:29 RDW 20.7 % (11.9-15.9) H 05/28/18 02:29 Plt Count 361 K/MM3 (134-434) D 05/28/18 02:29 MPV 8.6 fl (7.5-11.1) 05/28/18 02:29 Absolute Neuts (auto) 13.9 K/mm3 (1.5-8.0) H 05/28/18 02:29 Neutrophils % 84.6 % (42.8-82.8) H 05/28/18 02:29 Lymphocytes % 4.4 % (8-40) L D 05/28/18 02:29 Monocytes % 9.9 % (3.8-10.2) 05/28/18 02:29 Eosinophils % 0.4 % (0-4.5) 05/28/18 02:29 Basophils % 0.7 % (0-2.0) 05/28/18 02:29 Nucleated RBC % 0 % (0-0) 05/28/18 02:29 PT with INR 18.70 SEC (9.7-13.0) H 05/28/18 02:29 INR 1.58 (0.83-1.09) H 05/28/18 02:29 Sodium 132 mmol/L (136-145) L 05/28/18 02:29 Potassium 6.0 mmol/L (3.5-5.1) H 05/28/18 02:29 Chloride 98 mmol/L (98-107) 05/28/18 02:29 Carbon Dioxide 23 mmol/L (21-32) 05/28/18 02:29 Anion Gap 11 MMOL/L (8-16) 05/28/18 02:29 BUN 47 mg/dL (7-18) H 05/28/18 02:29 Creatinine 2.3 mg/dL (0.55-1.3) H 05/28/18 02:29 Creat Clearance w eGFR 28.96 (>60) 05/28/18 02:29 Random Glucose 139 mg/dL (74-106) H 05/28/18 02:29 Calcium 8.3 mg/dL (8.5-10.1) L 05/28/18 02:29 Magnesium 1.7 mg/dL (1.8-2.4) L 05/28/18 02:29 Total Bilirubin 1.4 mg/dL (0.2-1) H 05/28/18 02:29 AST 91 U/L (15-37) H 05/28/18 02:29 ALT 14 U/L (13-61) 05/28/18 02:29 Alkaline Phosphatase 121 U/L (45-117) H 05/28/18 02:29 Creatine Kinase 197 U/L (26-308) 05/28/18 02:29 Troponin I 0.29 ng/ml (0.00-0.05) H 05/28/18 02:29 B-Natriuretic Peptide 62089.6 pg/ml (5-125) H 05/28/18 02:29 Total Protein 6.5 g/dl (6.4-8.2) 05/28/18 02:29 Albumin 2.4 g/dl (3.4-5.0) L 05/28/18 02:29 ECG: AFL, V-P, PVCs, LVH, no sig change prior CXR: chf CT head: L thalamic infarct, unchanged from prior echo 06/2016: sev dec lvef, global hk, rv tds, trinity, mod-sev mr, mod tr, rvsp 50- 60 echo 06/2015: mild lve, mod-sev dec lvef, mod lae, nl rv size, mild dec rv fcn, mild-mod mr, mild tr, nl avr fcn, rvsp 30-40 04/14/18 ECHO MSH - moderate left ventricular dilatation overall severe decreased left ventricular systolic function (diffuse); estimated ejection fraction = 30 % The posterior wall is severely hypokinetic. Restrictive diastolic dysfunction normal right ventricular size moderate decreased right ventricular function aortic prosthesis (tissue) no evidence for aortic regurgitation moderate to severe mitral regurgitation mild to moderate tricuspid regurgitation moderate to severe pulmonary hypertension minimal pulmonic regurgitation no evidence for pericardial effusion technically difficult study Definity precision microbubble contrast used to enhance endocardial border definition mibi 06/2016 (pers): non-diagnostic STs; large area inferior/inferolateral/ lateral scar; no ischemia; severe LV cavity dilation; global HK with akinesis of inferior/inferolat/lateral allan; EF 16% mibi 09/2014: large inf scar, mod anteroapical ischemia, lvef 25% a/p: 62 m hx copd, cabgx3 2012, bio avr 2012, pad s/p b/l sfa occlusions, syst chf s/p medtronic icd, htn, hld, a-tach, here with back pain, sob. acute on chronic systolic CHF exacerbation: -recent dc for chf, was doing well but then stopped taking his lasix and other meds for several days and now back with acute chf (second recent admit for med noncompliance) -goal dry wt around 180lbs, hear now 197lbs -was on lasix 80 po daily at home. -will give 80 iv lasix bid. monitor daily wts, chem7. -cont carvedilol. not on ACEI due to h/o hyperkalemia mitral regurgitation: -likely functional MR, mild-mod on echo 06/19, then "mod-severe" when here 06/20 with suspected acute chf and pulm pressures up (though at risk for overestimation of MR severity on that echo report), mod to severe on echo at [facility] 04/2018 -reassess MR severity on echo as outpt--pt would be a candidate for transcatheter [place]mar-clip repair (per COAPT study data) if severe MR persists despite optimization of volume status and LV remodeling med regimen +/- [employer] CKD: -baseline creatinine 2-2.5; -renal fxn stable here atrial flutter: -pt in persistent AFL -CHADS VASC 5. prohibitive falls risk, transferred to [facility] recently for evaluation--randomized in Watchman trial -s/p watchman device 04/20--discharged on aspirin and plavix for 3 months protocol. continue same cad/hx of CABG 2012 -no recent angina/ischemia -no signs acs -trop chronically in intermediate range, no significant change in current value , trend for now -cont prior cad med regimen: asa, statin, bb, ccb bio avr: -nl fcn on echo 04/2018 CVA: -age indeterminate L thalamic stroke on CT here 03/2019 -now s/p Watchman device 04/2018, cont aspirin and plavix pad: -stable, no claudication, cont current cardiac meds s/p icd: -no shocks -routine outpt monitoring htn: -bp stable -cont home meds
--- NOTE | 2018-05-28 10:34 | PDOC ---
History of Present Illness - General Chief Complaint: Shortness of Breath Stated Complaint: DIFFICULTY BREATHING Time Seen by Provider: 05/28/18 08:48 History Source: Patient Exam Limitations: No Limitations - History of Present Illness Initial Comments: 05/28/18 10:21 The patient is a 62M with a PMH of COPD (on 2L home O2) HTN, IDDM, Systolic CHF , Afib, CAD s/p PPM and watchman placement who presents to the ER with complaints of leg swelling and shortness of breath. The patient states that he has not taken his "water pill" in "a few days". He admits to worsening b/l LE swelling and SOB. He denies CP, fever, chills, nausea, vomiting, cough, diaphoresis, numbness, tingling, and weakness. Past History - Past Medical History Allergies/Adverse Reactions: Allergies Allergy/AdvReac Type Severity Reaction Status Date / Time Fish Containing Products Allergy Verified 04/27/18 20:22 codeine AdvReac Intermediate Vomiting Verified 04/27/18 20:22 gabapentin AdvReac Intermediate dizzy Verified 04/27/18 20:22 Home Medications: Ambulatory Orders Albuterol 0.083% Nebulizer Rosy [Ventolin 0.083% Nebulizer Soln -] 1 amp NEB Q4H PRN #30 amp 05/02/18 Aspirin [ASA -] 81 mg PO DAILY #30 tab.chew 05/02/18 Atorvastatin Ca [Lipitor] 40 mg PO HS #30 tablet 05/02/18 Budesonide/Formeterol Fumarate [SYMBICORT 80/4.5mcg -] 2 puff IH BID #1 inhaler 05/02/18 Cholecalciferol (Vitamin D3) [Vitamin D3] 2,000 unit PO DAILY #30 capsule Clopidogrel Bisulfate [Plavix -] 75 mg PO DAILY #30 tablet 05/02/18 Cyclobenzaprine HCl 5 mg PO HS #30 tablet 05/02/18 Docusate Sodium [Colace -] 100 mg PO TID #90 capsule 05/02/18 Furosemide [Lasix -] 80 mg PO DAILY #60 tablet 05/02/18 Glipizide [Glucotrol -] 5 mg PO BID@0700,1630 #60 tablet 05/02/18 Lactulose [Cephulac -] 10 - 20 gm PO DAILY PRN #1 bottle 05/02/18 Melatonin 5 mg PO HS PRN #30 tab 05/02/18 Metoprolol Succinate [Toprol XL -] 50 mg PO BID #60 tab.sr.24h 05/02/18 Nebulizer [Compact Compressor Nebulizer] 1 each MC ASDIR #1 each 05/02/18 Pantoprazole Sodium [Protonix -] 40 mg PO DAILY #30 tablet.ec 05/02/18 Psyllium [Metamucil (Sugar-Free) -] 5.85 gm PO BID #1 bottle 05/02/18 Ranitidine [Zantac -] 150 mg PO HS #30 tablet 05/02/18 Sennosides [Senna -] 2 tab PO HS PRN #30 tablet 05/02/18 predniSONE [Deltasone -] 5 mg PO ASDIR #32 tab 05/02/18 Oxycodone HCl/Acetaminophen [Percocet 10-325 mg Tablet] 1 each PO TID PRN #80 tablet MDD 3 05/21/18 Anemia: No Asthma: No Cancer: No Cardiac Disorders: Yes (cabg, AFIB, CAD) CVA: No COPD: Yes CHF: Yes Dementia: No Diabetes: Yes (with neuropathy) GI Disorders: No Disorders: No HTN: Yes Hypercholesterolemia: Yes Liver Disease: No Seizures: No Thyroid Disease: No - Surgical History Abdominal Surgery: No Appendectomy: No Cardiac Surgery: Yes (CABG x 3, implanted defib and pacer) Cholecystectomy: No Lung Surgery: No Neurologic Surgery: No Orthopedic Surgery: No - Immunization History Td Vaccination: Yes (unknown) Immunization Up to Date: Yes - Suicide/Smoking/Psychosocial Hx Smoking Status: Yes Smoking History: Former smoker Years of Tobacco Use: 40 Have you smoked in the past 12 months: Yes Number of Cigarettes Smoked Daily: 1 If you are a former smoker, when did you quit?: 04/2018 Cigars Per Day: 0 Information on smoking cessation initiated: No 'Breaking Loose' booklet given: 03/28/18 Hx Alcohol Use: No Drug/Substance Use Hx: No Substance Use Type: None Hx Substance Use Treatment: No Review of Systems - Review of Systems Able to Perform ROS?: Yes Comments:: 05/28/18 10:34 GENERAL/CONSTITUTIONAL: No fever or chills. No weakness. HEAD, EYES, EARS, NOSE AND THROAT: No change in vision. No ear pain or discharge. No sore throat. CARDIOVASCULAR: No chest pain, palpitations, or lightheadedness. RESPIRATORY: Positive for shortness of breath. No cough, wheezing, or hemoptysis. GASTROINTESTINAL: No nausea, vomiting, diarrhea, constipation, or abdominal pain. GENITOURINARY: No dysuria, frequency, hematuria, or change in urination. MUSCULOSKELETAL: Positive for swelling in b/l lower extremities. No joint or muscle swelling or pain. No neck or back pain. SKIN: No rash or lesions. NEUROLOGIC: No headache, numbness, tingling, focal weakness, loss of consciousness, or change in strength/sensation. Is the patient limited Macedonian proficient: No *Physical Exam - Vital Signs Last Vital Signs Temp Pulse Resp BP Pulse Ox 99.0 F 56 L 26 H 152/100 98 05/28/18 08:45 05/28/18 08:45 05/28/18 08:45 05/28/18 08:45 05/28/18 08:58 - Physical Exam Comments: 05/28/18 10:36 GENERAL: Well developed, well nourished. Awake and alert. No acute distress. HEENT: Normocephalic, atraumatic. Hearing grossly normal. Moist mucous membranes. PERRLA, EOMI. No conjunctival pallor. NECK: Supple. Full ROM. No JVD. CARDIOVASCULAR: Regular rate and rhythm. No murmurs, rubs, or gallops. PULMONARY: No evidence of respiratory distress. Mild rales in b/l lung hernandez, overall decreased lung sounds. ABDOMINAL: Soft. Non-tender. Non-distended. No rebound or guarding. GENITOURINARY: No CVA tenderness bilaterally. MUSCULOSKELETAL: Normal range of motion at all joints. No bony deformities or tenderness. EXTREMITIES: No cyanosis. No clubbing. 3+ pitting edema in b/l LE up to thigh. No calf tenderness or swelling. SKIN: Warm and dry. Normal capillary refill. No rashes. No jaundice. NEUROLOGICAL: Alert, awake, appropriate. Cranial nerves 2-12 grossly intact. Normal speech. Gait is normal without ataxia. PSYCHIATRIC: Cooperative. Good eye contact. Appropriate mood and affect. Moderate Sedation - Procedure Monitoring Vital Signs: Procedure Monitoring Vital Signs Temperature 99.0 F 05/28/18 08:45 Pulse Rate 56 L 05/28/18 08:45 Respiratory Rate 26 H 05/28/18 08:45 Blood Pressure 152/100 05/28/18 08:45 O2 Sat by Pulse Oximetry (%) 98 05/28/18 08:58 Heart Score/ECG Review #1 ECG reviewed & interpreted by me at: 09:20 Compared to previous ECG there are: Changes noted 05/28/18 10:39 Ventricularly paced rhythm rate 85 A-flutter noted Ectopy frequently noted No clear STD or NEENA KS - QRS 106 QTc 481 ED Treatment Course - LABORATORY CBC & Chemistry Diagram: 05/28/18 02:29 05/28/18 02:29 - ADDITIONAL ORDERS Additional order review: Laboratory Results 05/28/18 05/28/18 02:29 02:29 PT with INR 18.70 H INR 1.58 H Sodium 132 L Potassium 6.0 H Chloride 98 Carbon Dioxide 23 Anion Gap 11 BUN 47 H Creatinine 2.3 H Creat Clearance w eGFR 28.96 Random Glucose 139 H Calcium 8.3 L Magnesium 1.7 L Total Bilirubin 1.4 H AST 91 H ALT 14 Alkaline Phosphatase 121 H Creatine Kinase 197 Troponin I 0.29 H B-Natriuretic Peptide 52833.6 H Total Protein 6.5 Albumin 2.4 L 05/28/18 02:29 RBC 3.91 L MCV 95.0 MCHC 33.3 RDW 20.7 H MPV 8.6 Neutrophils % 84.6 H Lymphocytes % 4.4 L D Monocytes % 9.9 Eosinophils % 0.4 Basophils % 0.7 - RADIOLOGY Radiology Studies Ordered: Category Date Time Status CHEST X-RAY PORTABLE* [RAD] Stat Radiology 05/28/18 09:01 Completed - Medications Given in the ED: ED Medications Discontinued Medications Generic Name Dose Route Start Last Admin Trade Name Freq PRN Reason Stop Dose Admin Furosemide 80 mg 05/28/18 10:03 05/28/18 10:06 Lasix Injection - IVPUSH 05/28/18 10:04 80 mg ONCE ONE Administration Medical Decision Making - Medical Decision Making 05/28/18 10:40 The patient is a 62M with multiple cardiac problems who presents to the ER with shortness of breath and b/l LE swelling concerning for CHF exacerbation. EKG immediately discussed with cardiology, Dr. Zafar, who does not agree with the EKG machine reading which states "ACUTE NE/STEMI". Pt likely in CHF exacerbation but normoxic and well appearing. Giving lasix (d/w Dr. Zafar, in possible setting of worsening Cr) and monitoring closely. CXR read as possible L base atelectasis vs infiltrate w/ effusion. 05/28/18 11:02 BNP 60,000 with K of 6.0. Treating K. Hospitalist microblogged for admission. 05/28/18 11:[address] Lieberman for admission. *DC/Admit/Observation/Transfer Diagnosis at time of Disposition: CHF (congestive heart failure) Qualifiers: Heart failure type: unspecified Heart failure chronicity: unspecified Qualified Code(s): I50.9 - Heart failure, unspecified Acute exacerbation of CHF (congestive heart failure) Qualifiers: Heart failure type: unspecified Qualified Code(s): I50.9 - Heart failure, unspecified Chronic kidney disease (CKD) Qualifiers: Chronic kidney disease stage: unspecified stage Qualified Code(s): N18.9 - Chronic kidney disease, unspecified - Discharge Dispostion Condition at time of disposition: Guarded Decision to Admit order: Yes - Referrals Referrals: Kanu Truong MD [Primary Care Provider] - - Patient Instructions - Post Discharge Activity
[2018-05-28] MEDS ORDERED: INSULIN REGULAR HUMAN 100 UNITS/ML *VIAL IVPUSH ONE (10:51)
[2018-05-28] MEDS ORDERED: ALBUTEROL SO4 2.5/IPRATROPIUM 0.5 INH SOL 3 ML VIAL.NEB. NEB ONE ×2 (10:52→11:03)
[2018-05-28] MEDS ORDERED: DEXTROSE 50%-WATER - 25 GM/50 ML VIAL IVPUSH PRN (10:52)
[2018-05-28 10:56] LABS: ANISOCYTOSIS 1+; MACROCYTOSIS 0; OVALOCYTE 1+; PLATELET ESTIMATE NORMAL; TEAR DROP CELLS 1+; TOXIC GRANULATION 1+
[2018-05-28] MEDS ORDERED: CALCIUM GLUCONATE 10% - 1,000 MG/10 ML VIAL IVPB ONE (10:57)
[2018-05-28] MEDS ORDERED: CALCIUM GLUCONATE 10% - 1,000 MG/10 ML VIAL ONE (11:03)
[2018-05-28] MEDS ORDERED: DEXTROSE 50%-WATER 25 GM/50 ML DISP.SYRIN ONE (11:03)
[2018-05-28] MEDS ORDERED: INSULIN REGULAR HUMAN 100 UNITS/ML *VIAL ONE (11:04)
--- NOTE | 2018-05-28 11:53 | HP ---
CHIEF COMPLAINT: b/l increase in swelling , sob PCP: Dr pao syed HISTORY OF PRESENT ILLNESS: The patient is a 62M with a PMH of COPD (on 2L home O2) HTN, IDDM, Systolic CHF, Aflutter , CAD s/p PPM and watchman placement( 2018 ) who presents to the ER with complaints of leg swelling and shortness of breath. The patient states that he has not taken his "water pill" since thursday and is eatout every day. States he gets short of breath when he lies down. He also states that he has noticed that he gained weight in last few days but don 't know how much. He denies CP, fever, chills, nausea, vomiting, cough, diaphoresis, numbness, tingling, lightheadedness, dizziness, fever and chills and weakness. States he use to take 80 mg lasix but 2 day josé miguel went to his pcp and they had increased it to 160 mg daily but e didn't take those ER course was notable for: (1)cbc, cmp (2)IV lasix 80 (3)cxr Recent Travel: no PAST MEDICAL HISTORY: copd, cabgx3 2012, bio avr 2012, pad s/p b/l sfa occlusions, syst chf s/p medtronic icd, htn, hld, a-tach, aflutter s/p watchman 04/2018 PAST SURGICAL HISTORY: watchman procedure 2018 Social History: Smoking: quit 9 months ago, use to smoke a pack Alcohol: quit 9 months ago Drugs: no Family History: pt don't remember Allergies Fish Containing Products Allergy (Verified 04/27/18 20:22) codeine Adverse Reaction (Intermediate, Verified 04/27/18 20:22) Vomiting gabapentin Adverse Reaction (Intermediate, Verified 04/27/18 20:22) dizzy HOME MEDICATIONS: Home Medications Medication Instructions Recorded Albuterol 0.083% Nebulizer Rosy 1 amp NEB Q4H PRN #30 amp 05/02/18 [Ventolin 0.083% Nebulizer Soln -] Aspirin [ASA -] 81 mg PO DAILY #30 tab.chew 05/02/18 Atorvastatin Ca [Lipitor] 40 mg PO HS #30 tablet 05/02/18 Budesonide/Formeterol Fumarate 2 puff IH BID #1 inhaler 05/02/18 [SYMBICORT 80/4.5mcg -] Cholecalciferol (Vitamin D3) 2,000 unit PO DAILY #30 capsule 05/02/18 [Vitamin D3] Clopidogrel Bisulfate [Plavix -] 75 mg PO DAILY #30 tablet 05/02/18 Cyclobenzaprine HCl 5 mg PO HS #30 tablet 05/02/18 Docusate Sodium [Colace -] 100 mg PO TID #90 capsule 05/02/18 Furosemide [Lasix -] 80 mg PO DAILY #60 tablet 05/02/18 Glipizide [Glucotrol -] 5 mg PO BID@0700,1630 #60 tablet 05/02/18 Lactulose [Cephulac -] 10 - 20 gm PO DAILY PRN #1 bottle 05/02/18 Melatonin 5 mg PO HS PRN #30 tab 05/02/18 Metoprolol Succinate [Toprol XL -] 50 mg PO BID #60 tab.sr.24h 05/02/18 Nebulizer [Compact Compressor 1 each MC ASDIR #1 each 05/02/18 Nebulizer] Pantoprazole Sodium [Protonix -] 40 mg PO DAILY #30 tablet.ec 05/02/18 Psyllium [Metamucil (Sugar-Free) -] 5.85 gm PO BID #1 bottle 05/02/18 Ranitidine [Zantac -] 150 mg PO HS #30 tablet 05/02/18 Sennosides [Senna -] 2 tab PO HS PRN #30 tablet 05/02/18 predniSONE [Deltasone -] 5 mg PO ASDIR #32 tab 05/02/18 Oxycodone HCl/Acetaminophen 1 each PO TID PRN #80 tablet MDD 3 05/21/18 [Percocet 10-325 mg Tablet] REVIEW OF SYSTEMS CONSTITUTIONAL: Absent: fever, chills, diaphoresis, generalized weakness, malaise, loss of appetite, weight change HEENT: Absent: rhinorrhea, nasal congestion, throat pain, throat swelling, difficulty swallowing, mouth swelling, ear pain, eye pain, visual changes CARDIOVASCULAR: Absent: chest pain, syncope, palpitations, irregular heart rate, lightheadedness , peripheral edema RESPIRATORY: Absent: cough, shortness of breath, dyspnea with exertion, orthopnea, wheezing, stridor, hemoptysis GASTROINTESTINAL: Absent: abdominal pain, abdominal distension, nausea, vomiting, diarrhea, constipation, melena, hematochezia GENITOURINARY: Absent: dysuria, frequency, urgency, hesitancy, hematuria, flank pain, genital pain MUSCULOSKELETAL: Absent: myalgia, arthralgia, joint swelling, back pain, neck pain SKIN: Absent: rash, itching, pallor HEMATOLOGIC/IMMUNOLOGIC: Absent: easy bleeding, easy bruising, lymphadenopathy, frequent infections ENDOCRINE: Absent: unexplained weight gain, unexplained weight loss, heat intolerance, cold intolerance NEUROLOGIC: Absent: headache, focal weakness or paresthesias, dizziness, unsteady gait, seizure, mental status changes, bladder or bowel incontinence PSYCHIATRIC: Absent: anxiety, depression, suicidal or homicidal ideation, hallucinations. PHYSICAL EXAMINATION Vital Signs - 24 hr 05/28/18 05/28/18 05/28/18 08:45 08:58 10:21 Temperature 99.0 F 98.3 F Pulse Rate 56 L Pulse Rate [ 83 Left Radial] Respiratory 26 H 20 Rate Blood Pressure 152/100 Blood Pressure 143/95 [Left Arm] O2 Sat by Pulse 100 98 98 Oximetry (%) GENERAL: Awake, alert, and fully oriented, in acute distress. HEAD: Normal with no signs of trauma. EYES: Pupils equal, round and reactive to light, EARS, NOSE, THROAT: Moist mucous membranes. NECK: Normal range of motion, supple without lymphadenopathy, JVP distended , or masses. LUNGS: Bb/l air entry present, b/l diffuse crackels . HEART:s1s2 normal, no murmur, irrregular ABDOMEN: Soft, nontender, not distended, normoactive bowel sounds, no guarding, no rebound, no masses. UPPER EXTREMITIES: 2+ pulses, warm, well-perfused. LOWER EXTREMITIES: pitting edema +++ upto mid thigh PSYCHIATRIC: Cooperative. Good eye contact. SKIN: Warm, dry, Laboratory Results - last 24 hr 05/28/18 05/28/18 05/28/18 02:29 02:29 02:29 WBC 16.4 H RBC 3.91 L Hgb 12.4 Hct 37.1 D MCV 95.0 MCH 31.7 MCHC 33.3 RDW 20.7 H Plt Count 361 D MPV 8.6 Absolute Neuts (auto) 13.9 H Neutrophils % 84.6 H Neutrophils % (Manual) 89.0 H Band Neutrophils % 0.0 Lymphocytes % 4.4 L D Lymphocytes % (Manual) 4.0 L D Monocytes % 9.9 Monocytes % (Manual) 7 D Eosinophils % 0.4 Eosinophils % (Manual) 0.0 D Basophils % 0.7 Basophils % (Manual) 0.0 Myelocytes % (Man) 0 D Promyelocytes % (Man) 0 Blast Cells % (Manual) 0 Nucleated RBC % 0 Metamyelocytes 0 Hypochromia 0 Toxic Granulation 1+ Platelet Estimate Normal Polychromasia 1+ Poikilocytosis 2+ Anisocytosis 1+ Microcytosis 1+ Macrocytosis 0 Tear Drop Cells 1+ Ovalocytes 1+ Justin Cells 1+ Acanthocytes (Spur) 1+ PT with INR 18.70 H INR 1.58 H Sodium 132 L Potassium 6.0 H Chloride 98 Carbon Dioxide 23 Anion Gap 11 BUN 47 H Creatinine 2.3 H Creat Clearance w eGFR 28.96 Random Glucose 139 H Calcium 8.3 L Magnesium 1.7 L Total Bilirubin 1.4 H AST 91 H ALT 14 Alkaline Phosphatase 121 H Creatine Kinase 197 Creatine Kinase Index 1.0 CK-MB (CK-2) 2.0 Troponin I 0.29 H B-Natriuretic Peptide 09069.6 H Total Protein 6.5 Albumin 2.4 L Active Medications Generic Name Dose Route Start Last Admin Trade Name Freq PRN Reason Stop Dose Admin Albuterol/Ipratropium 1 amp 05/28/18 11:38 Duoneb - NEB Q6H PRN SHORTNESS OF BREATH Aspirin 81 mg 05/28/18 11:38 Asa - PO DAILY [facility] Atorvastatin Calcium 40 mg 05/28/18 22:00 Lipitor - PO HS [facility] Budesonide/Formoterol Fumarate 2 puff 05/28/18 22:00 Symbicort 80/4.5mcg - IH BID [facility] Cholecalciferol 2,000 unit 05/29/18 10:00 Vitamin D3 - PO DAILY [facility] Clopidogrel Bisulfate 75 mg 05/28/18 11:38 Plavix - PO DAILY [facility] Cyclobenzaprine HCl 5 mg 05/28/18 22:00 Cyclobenzaprine Hcl PO HS [facility] Docusate Sodium 100 mg 05/28/18 14:00 05/28/18 14:57 Colace - PO 100 mg TID [facility] Administration Furosemide 80 mg 05/29/18 06:00 Lasix Injection - IVPUSH BID@0600,1400 [facility] Insulin Aspart 1 vial 05/28/18 16:30 05/28/18 15:54 Novolog Vial Sliding Scale - SQ Not Given ACHS MANJU Protocol Metoprolol Succinate 50 mg 05/28/18 22:00 Toprol Xl - PO BID MANJU Ranitidine HCl 150 mg 05/28/18 22:00 Zantac - PO HS [facility] ASSESSMENT/PLAN: (1) Acute exacerbation of CHF (congestive heart failure) Monitor vitals monior intake ouput IV lasix 8 bid low salt diet keep head end elevated daily weight/ echo done on 03/15/18 reviewed ef 30-35 cariology on case continue metoprlol xl 50 bid Hyperkalemia repeat k pending got insulin, albuterol , lasix , ca gluconate Troponemia; likely demand or can be in setting of ckd 2 COPD (chronic obstructive pulmonary disease) chronic, O2 dependent continue nebs symbicort. no wheezing (3) Atrial fib/CAD hr 83 s/p watchman's device 04/2018 continue metoprolol continue asa/plavix x 3 months continue statin cardiology following (4) ERROL on Chronic kidney disease (CKD) likely from cardiorenal syndrome monitor cr avoid nephrtoxic drugs (5) Diabetes hold oral hypoglycemia started on insulin sliding scale bgm monitoring (6) HTN (hypertension) -controlled -continue home regimen (7 ) Low back pain -chronic -PT -analgesics prn - continue cyclobenzaprine (8) Anemia in chronic kidney disease Hb stable Fluid: orally allowed : freee water intake< 1L electrolyte: hyponatremia: likely hypotonic hyperolemic nutrition: lw salt and fat diet dvt pro heparin sq gi pro zantac Visit type - Emergency Visit Emergency Visit: Yes Care time: The patient presented to the Emergency Department on the above date and was hospitalized for further evaluation of their emergent condition. - New Patient This patient is new to me today: Yes Date on this admission: 05/28/18 - Critical Care Critical Care patient: No
[2018-05-28] MEDS: DOCUSATE SODIUM 100 MG CAPSULE (FP) PO SCH ×2 (14:57→23:24)
--- NOTE | 2018-05-28 15:04 | EKG ---
Test Reason : Blood Pressure : / mmHG Vent. Rate : 092 BPM Atrial Rate : 267 BPM P-R Int : 000 ms QRS Dur : 118 ms QT Int : 446 ms P-R-T Axes : 000 -40 130 degrees QTc Int : 551 ms UNDETERMINED RHYTHM LEFT AXIS DEVIATION LEFT VENTRICULAR HYPERTROPHY WITH QRS WIDENING AND REPOLARIZATION ABNORMALITY INFERIOR-POSTERIOR INFARCT , AGE UNDETERMINED PROLONGED QT Confirmed by JEREMI ROLLINS MD ([id number]) on 05/28/2018 3:04:23 PM Referred By: Confirmed By:JEREMI ROLLINS MD
--- NOTE | 2018-05-28 15:53 | PN ---
Teaching Attending Note Name of Resident: Rafael Lieberman ATTENDING PHYSICIAN STATEMENT I saw and evaluated the patient. I reviewed the resident's note and discussed the case with the resident. I agree with the resident's findings and plan as documented. SUBJECTIVE: Mr Owen is a 62 year old male who comes in with shortness of breath. He was recently hospitalized one month ago where it was found he had repeated admissions secondary to non-compliance with his medication. He was repeatedly educated on how and when to take his medication and discharged home with home VNS to assist as well. He states that he was taking his medications but he ran out earlier this week. He noted that he was having worsening swelling in his legs with weeping and shortness of breath. He presented to the office and his lasix was doubled, however he continued to not take his lasix. He did not improve and presented today. He denies fevers, chills, lightheadedness, dizziness, chest pain, abdominal pain, nausea, vomiting, diarrhea, constipation, or difficulty/pain on urination. Past Medical History Cardio/Vascular AFIB,CAD,CHF,HTN,Mitral Insufficiency,Other Pulmonary Bronchitis,COPD,O2 Dependent,Pneumonia Gastrointestinal Constipation Renal/ Renal Inusuff Heme/Onc Anemia Endocrine Diabetes Mellitus Past Surgical History Past Surgical History AICD,CABG Home Medications Medication Instructions Recorded Albuterol 0.083% Nebulizer Rosy 1 amp NEB Q4H PRN #30 amp 05/02/18 [Ventolin 0.083% Nebulizer Soln -] Aspirin [ASA -] 81 mg PO DAILY #30 tab.chew 05/02/18 Atorvastatin Ca [Lipitor] 40 mg PO HS #30 tablet 05/02/18 Budesonide/Formeterol Fumarate 2 puff IH BID #1 inhaler 05/02/18 [SYMBICORT 80/4.5mcg -] Cholecalciferol (Vitamin D3) 2,000 unit PO DAILY #30 capsule 05/02/18 [Vitamin D3] Clopidogrel Bisulfate [Plavix -] 75 mg PO DAILY #30 tablet 05/02/18 Cyclobenzaprine HCl 5 mg PO HS #30 tablet 05/02/18 Docusate Sodium [Colace -] 100 mg PO TID #90 capsule 05/02/18 Furosemide [Lasix -] 80 mg PO DAILY #60 tablet 05/02/18 Glipizide [Glucotrol -] 5 mg PO BID@0700,1630 #60 tablet 05/02/18 Lactulose [Cephulac -] 10 - 20 gm PO DAILY PRN #1 bottle 05/02/18 Melatonin 5 mg PO HS PRN #30 tab 05/02/18 Metoprolol Succinate [Toprol XL -] 50 mg PO BID #60 tab.sr.24h 05/02/18 Nebulizer [Compact Compressor 1 each MC ASDIR #1 each 05/02/18 Nebulizer] Pantoprazole Sodium [Protonix -] 40 mg PO DAILY #30 tablet.ec 05/02/18 Psyllium [Metamucil (Sugar-Free) -] 5.85 gm PO BID #1 bottle 05/02/18 Ranitidine [Zantac -] 150 mg PO HS #30 tablet 05/02/18 Sennosides [Senna -] 2 tab PO HS PRN #30 tablet 05/02/18 predniSONE [Deltasone -] 5 mg PO ASDIR #32 tab 05/02/18 Oxycodone HCl/Acetaminophen 1 each PO TID PRN #80 tablet MDD 3 05/21/18 [Percocet 10-325 mg Tablet] Allergies: codeine, gabapentin Social History Smoking history Former smoker Have you smoked in the past 12 Yes months Hx Alcohol Use No History of Substance Use None,Cocaine Usual Living Arrangement Other ADL Independent Family history: niece with anemia ROS: full review of systems obtained, as per HPI and otherwise negative OBJECTIVE: Last Vital Signs Temp Pulse Resp BP Pulse Ox 36.8 C 83 20 143/95 98 05/28/18 10:21 05/28/18 10:21 05/28/18 10:21 05/28/18 10:21 05/28/18 10:21 Gen: nad Pulm: bibasilar tonny CV: irreg irreg but rate controlled, no m/r/g Abd: +bs, s/nt/nd Ext: 3+ pitting edema with weeping CBC, BMP 05/28/18 02:29 05/28/18 14:45 ASSESSMENT AND PLAN: -admit to telemetry -case d/w cardiology -aggressive diuresis with IV lasix -hyperkalemia treated, repeat potassium 4.2 -continue home regimen -no ACEI/ARBs secondary to hyperkalemia -not anticoagulated secondary to fall risk -will hold on continuing percocet at this time Problem List - Problems (1) Acute exacerbation of CHF (congestive heart failure) Code(s): I50.9 - HEART FAILURE, UNSPECIFIED Qualifiers: Heart failure type: unspecified Qualified Code(s): I50.9 - Heart failure, unspecified (2) Afib Code(s): I48.91 - UNSPECIFIED ATRIAL FIBRILLATION Qualifiers: Atrial fibrillation type: chronic Qualified Code(s): I48.2 - Chronic atrial fibrillation (3) Carotid stenosis Code(s): I65.29 - OCCLUSION AND STENOSIS OF UNSPECIFIED CAROTID ARTERY (4) Chronic respiratory failure Code(s): J96.10 - CHRONIC RESPIRATORY FAILURE, UNSP W HYPOXIA OR HYPERCAPNIA (5) Hyperkalemia Code(s): E87.5 - HYPERKALEMIA (6) Troponin I above reference range Code(s): R74.8 - ABNORMAL LEVELS OF OTHER SERUM ENZYMES (7) Acute on chronic renal insufficiency Code(s): N28.9 - DISORDER OF KIDNEY AND URETER, UNSPECIFIED; N18.9 - CHRONIC KIDNEY DISEASE, UNSPECIFIED (8) Diabetes Code(s): E11.9 - TYPE 2 DIABETES MELLITUS WITHOUT COMPLICATIONS Qualifiers: Diabetes mellitus type: type 2 Diabetes mellitus senior care insulin use: with watermaster use Diabetes mellitus complication status: with kidney complications Diabetes mellitus complication detail: with chronic kidney disease Chronic kidney disease stage: stage 3 (moderate) Qualified Code(s): E11.22 - Type 2 diabetes mellitus with diabetic chronic kidney disease; N18.3 - Chronic kidney disease, stage 3 (moderate); Z79.4 - emt intermediate (current) use of 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
[2018-05-28] MEDS: INSULIN SLIDING SCALE (NOVOLOG) 1 VIAL SQ SCH ×2 (15:54→23:25)
[2018-05-28] MEDS ORDERED: FUROSEMIDE 40 MG/4 ML INJECTABLE VIAL IVPUSH SCH (22:00)
[2018-05-28] MEDS ORDERED: RANITIDINE HCL 150 MG TABLET (FP) ONE (23:19)
[2018-05-28] MEDS ORDERED: CYCLOBENZAPRINE HCL 10 MG TABLET (FP) ONE (23:20)
[2018-05-28] MEDS ORDERED: ATORVASTATIN CA 40 MG TABLET (FP) ONE (23:20)
[2018-05-28] MEDS ORDERED: DOCUSATE SODIUM 100 MG CAPSULE (FP) PO ONE (23:20)
[2018-05-28] MEDS ORDERED: HEPARIN NA (PORCINE) 5,000 UNITS/ML 1ML VIAL ONE (23:21)
[2018-05-28] MEDS: CYCLOBENZAPRINE HCL 5 MG TABLET PO SCH (23:24)
[2018-05-28] MEDS: HEPARIN NA (PORCINE) 5,000 UNITS/ML 1ML VIAL SQ SCH (23:24)
[2018-05-28] MEDS: ATORVASTATIN CA 40 MG TABLET (FP) PO SCH (23:25)
[2018-05-28] MEDS: BUDESONIDE/FORMETEROL FUMARATE 80/4.5 mcg INHALER IH SCH (23:26)
[2018-05-28] MEDS: RANITIDINE HCL 150 MG TABLET (FP) PO SCH (23:27)
[2018-05-29] MEDS: INSULIN SLIDING SCALE (NOVOLOG) 1 VIAL SQ SCH ×4 (07:00→21:23)
[2018-05-29] MEDS: DOCUSATE SODIUM 100 MG CAPSULE (FP) PO SCH ×3 (07:00→21:15)
[2018-05-29] MEDS: FUROSEMIDE 40 MG/4 ML INJECTABLE VIAL IVPUSH SCH ×2 (07:00→15:15)
[2018-05-29 08:45] LABS: BASO % 0.6 % (0-2.0); HEMATOCRIT 36.1 % (35.4-49); LYMPH % 4.7 % (8-40); MCH 31.6 pg (25.7-33.7); MCHC 33.3 g/dl (32.0-35.9); MEAN PLT VOLUME 8.2 fl (7.5-11.1); NEUT % 83.7 % (42.8-82.8); PLATELET COUNT 316 K/MM3 (134-434); RDW 21.2 % (11.9-15.9); WHITE BLOOD COUNT 16.6 K/mm3 (4.0-10.0)
[2018-05-29 09:20] LABS: ALBUMIN 2.2 g/dl (3.4-5.0); ALK PHOS 120 U/L (45-117); ANION GAP 10 MMOL/L (8-16); BLOOD UREA NITROGEN 46 mg/dL (7-18); CALCIUM 7.9 mg/dL (8.5-10.1); CHLORIDE 98 mmol/L (98-107); CHOLESTEROL 127 mg/dL (50-200); CO2 29 mmol/L (21-32); GLUCOSE,RANDOM 100 mg/dL (74-106); HDL CHOLESTEROL 33 mg/dL (40-60); MAGNESIUM 1.7 mg/dL (1.8-2.4); PHOSPHOROUS 3.2 mg/dL (2.5-4.9); POTASSIUM 3.8 mmol/L (3.5-5.1); SGOT/AST 37 U/L (15-37); SGPT/ALT 14 U/L (13-61); SODIUM 137 mmol/L (136-145); TOT PROT 5.7 g/dl (6.4-8.2); TRIGLYCERIDES 136 mg/dL (0-150)
[2018-05-29] MEDS: CHOLECALCIFEROL (VITAMIN D3) 1,000 UNIT TABLET (FP) PO SCH (09:51)
[2018-05-29] MEDS: CLOPIDOGREL BISULFATE 75 MG TABLET (FP) PO SCH (09:52)
[2018-05-29] MEDS: ASPIRIN 81 MG CHEWABLE TABLETS PO SCH (09:52)
[2018-05-29] MEDS: HEPARIN NA (PORCINE) 5,000 UNITS/ML 1ML VIAL SQ SCH ×2 (09:52→21:15)
[2018-05-29] MEDS ORDERED: CLOPIDOGREL BISULFATE 75 MG TABLET (FP) PO SCH (10:00)
[2018-05-29] MEDS ORDERED: ASPIRIN 81 MG CHEWABLE TABLETS PO SCH (10:00)
[2018-05-29] MEDS: BUDESONIDE/FORMETEROL FUMARATE 80/4.5 mcg INHALER IH SCH ×2 (10:54→21:16)
--- NOTE | 2018-05-29 11:18 | PN ---
Progress Note (short form) - Note Progress Note: s: sob and edema improving. no chest pain, palps, dizziness, lightheadedness Current Medications Albuterol/Ipratropium (Duoneb -) 1 amp NEB Q6H PRN PRN Reason: SHORTNESS OF BREATH Aspirin (Asa -) 81 mg PO DAILY [facility] Last Admin: 05/29/18 09:52 Dose: 81 mg Atorvastatin Calcium (Lipitor -) 40 mg PO [facility] Last Admin: 05/28/18 23:25 Dose: 40 mg Budesonide/Formoterol Fumarate (Symbicort 80/4.5mcg -) 2 puff IH BID [facility] Last Admin: 05/29/18 10:54 Dose: 2 mcg Cholecalciferol (Vitamin D3 -) 2,000 unit PO DAILY [facility] Last Admin: 05/29/18 09:51 Dose: 2,000 unit Clopidogrel Bisulfate (Plavix -) 75 mg PO DAILY [facility] Last Admin: 05/29/18 09:52 Dose: 75 mg Cyclobenzaprine HCl (Cyclobenzaprine Hcl) 5 mg PO [facility] Last Admin: 05/28/18 23:24 Dose: 5 mg Docusate Sodium (Colace -) 100 mg PO TID [facility] Last Admin: 05/29/18 07:00 Dose: Not Given Furosemide (Lasix Injection -) 80 mg IVPUSH BID@0600,1400 [facility] Last Admin: 05/29/18 07:00 Dose: 80 mg Heparin Sodium (Porcine) (Heparin -) 5,000 unit SQ BID [facility] Last Admin: 05/29/18 09:52 Dose: 5,000 unit Insulin Aspart (Novolog Vial Sliding Scale -) 1 vial SQ ACHS [facility]; Protocol Last Admin: 05/29/18 07:00 Dose: Not Given Metoprolol Succinate (Toprol Xl -) 50 mg PO BID [facility] Last Admin: 05/29/18 09:52 Dose: 50 mg Ranitidine HCl (Zantac -) 150 mg PO [facility] Last Admin: 05/28/18 23:27 Dose: 150 mg pe: Vital Signs Period Temp Pulse Resp BP Sys/El Pulse Ox Last 24 Hr 97.4 F-98.3 F 78-90 20-22 114-143/74-95 96-100 nad, +JVD rrr s1s2 no mrg rales at bases freida, nl eff aaox3 2+ le edema bl with weeping abd nt nd pos bs no jaundice diaphoresis +dp pt no carotid bruits ECG: AFL, V-P, PVCs, LVH, no sig change prior CXR: chf CT head: L thalamic infarct, unchanged from prior echo 06/2016: sev dec lvef, global hk, rv tds, trinity, mod-sev mr, mod tr, rvsp 50- 60 echo 06/2015: mild lve, mod-sev dec lvef, mod lae, nl rv size, mild dec rv fcn, mild-mod mr, mild tr, nl avr fcn, rvsp 30-40 04/14/18 ECHO MSH - moderate left ventricular dilatation overall severe decreased left ventricular systolic function (diffuse); estimated ejection fraction = 30 % The posterior wall is severely hypokinetic. Restrictive diastolic dysfunction normal right ventricular size moderate decreased right ventricular function aortic prosthesis (tissue) no evidence for aortic regurgitation moderate to severe mitral regurgitation mild to moderate tricuspid regurgitation moderate to severe pulmonary hypertension minimal pulmonic regurgitation no evidence for pericardial effusion technically difficult study Definity precision microbubble contrast used to enhance endocardial border definition mibi 06/2016 (pers): non-diagnostic STs; large area inferior/inferolateral/ lateral scar; no ischemia; severe LV cavity dilation; global HK with akinesis of inferior/inferolat/lateral allan; EF 16% mibi 09/2014: large inf scar, mod anteroapical ischemia, lvef 25% a/p: 62 m hx copd, cabgx3 2012, bio avr 2012, pad s/p b/l sfa occlusions, syst chf s/p medtronic icd, htn, hld, a-tach, here with back pain, sob. acute on chronic systolic CHF exacerbation: -recent dc for chf, was doing well but then stopped taking his lasix and other meds for several days and now back with acute chf (second recent admit for med noncompliance) -goal dry wt around 180lbs, on admission 197lbs -was on lasix 80 po daily at home. -on 80 iv lasix bid, continue monitor daily wts, chem7 -cont carvedilol. 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 prohibitive falls risk, transferred to [place] recently for evaluation--randomized in Watchman trial -s/p watchman device 04/20--discharged on aspirin and plavix for 3 months protocol. continue same cad/hx of CABG 2012 -no recent angina/ischemia -no signs acs -trop chronically in intermediate range, no significant change in current value , trend for now -cont prior cad med regimen: asa, statin, bb, ccb bio avr: -nl fcn on echo 04/2018 CVA: -age indeterminate L thalamic stroke on CT here 03/2019 -now s/p Watchman device 04/2018, cont aspirin and plavix pad: -stable, no claudication, cont current cardiac meds s/p icd: -no shocks -routine outpt monitoring htn: -bp stable -cont home meds
--- NOTE | 2018-05-29 15:47 | PN ---
Progress Note, Physician Chief Complaint: Mr Owen says he is doing better today. He says his leg swelling is better. He denies cp, sob, n/v. - Current Medication List Current Medications: Active Medications Acetaminophen (Tylenol -) 650 mg PO Q4H PRN PRN Reason: PAIN Albuterol/Ipratropium (Duoneb -) 1 amp NEB Q6H PRN PRN Reason: SHORTNESS OF BREATH Aspirin (Asa -) 81 mg PO DAILY [facility] Last Admin: 05/29/18 09:52 Dose: 81 mg Atorvastatin Calcium (Lipitor -) 40 mg PO HS [facility] Last Admin: 05/28/18 23:25 Dose: 40 mg Budesonide/Formoterol Fumarate (Symbicort 80/4.5mcg -) 2 puff IH BID [facility] Last Admin: 05/29/18 10:54 Dose: 2 mcg Cholecalciferol (Vitamin D3 -) 2,000 unit PO DAILY [facility] Last Admin: 05/29/18 09:51 Dose: 2,000 unit Clopidogrel Bisulfate (Plavix -) 75 mg PO DAILY [facility] Last Admin: 05/29/18 09:52 Dose: 75 mg Cyclobenzaprine HCl (Cyclobenzaprine Hcl) 5 mg PO HS [facility] Last Admin: 05/28/18 23:24 Dose: 5 mg Docusate Sodium (Colace -) 100 mg PO TID [facility] Last Admin: 05/29/18 15:15 Dose: 100 mg Furosemide (Lasix Injection -) 80 mg IVPUSH BID@0600,1400 [facility] Last Admin: 05/29/18 15:15 Dose: 80 mg Heparin Sodium (Porcine) (Heparin -) 5,000 unit SQ BID [facility] Last Admin: 05/29/18 09:52 Dose: 5,000 unit Insulin Aspart (Novolog Vial Sliding Scale -) 1 vial SQ ACHS [facility]; Protocol Last Admin: 05/29/18 12:14 Dose: 6 units Metoprolol Succinate (Toprol Xl -) 50 mg PO BID [facility] Last Admin: 05/29/18 09:52 Dose: 50 mg Ranitidine HCl (Zantac -) 150 mg PO HS [facility] Last Admin: 05/28/18 23:27 Dose: 150 mg - Objective Vital Signs: Vital Signs Temperature 35.9 C L 05/29/18 14:00 Pulse Rate 94 H 05/29/18 14:00 Respiratory Rate 20 05/29/18 14:00 Blood Pressure 139/98 05/29/18 14:00 O2 Sat by Pulse Oximetry (%) 96 05/29/18 05:36 Constitutional: Yes: Well Nourished, No Distress, Calm Cardiovascular: Yes: Regular Rate and Rhythm. No: Gallop, Murmur, Rub Respiratory: Yes: Regular, CTA Bilaterally. No: Rales, Rhonchi, Wheezes Gastrointestinal: Yes: Normal Bowel Sounds, Soft. No: Distention, Tenderness Extremities: Yes: Other (blistering with eschar on multiple toes) Edema: Yes Edema: LLE: 2+, RLE: 2+ Labs: CBC, BMP 05/29/18 08:10 05/29/18 08:10 INR, PTT INR 1.58 (0.83-1.09) H 05/28/18 02:29 Problem List - Problems (1) Acute exacerbation of CHF (congestive heart failure) Code(s): I50.9 - HEART FAILURE, UNSPECIFIED Qualifiers: Heart failure type: unspecified Qualified Code(s): I50.9 - Heart failure, unspecified (2) Afib Code(s): I48.91 - UNSPECIFIED ATRIAL FIBRILLATION Qualifiers: Atrial fibrillation type: chronic Qualified Code(s): I48.2 - Chronic atrial fibrillation (3) Carotid stenosis Code(s): I65.29 - OCCLUSION AND STENOSIS OF UNSPECIFIED CAROTID ARTERY (4) Chronic respiratory failure Code(s): J96.10 - CHRONIC RESPIRATORY FAILURE, UNSP W HYPOXIA OR HYPERCAPNIA (5) Hyperkalemia Code(s): E87.5 - HYPERKALEMIA (6) Troponin I above reference range Code(s): R74.8 - ABNORMAL LEVELS OF OTHER SERUM ENZYMES (7) Acute on chronic renal insufficiency Code(s): N28.9 - DISORDER OF KIDNEY AND URETER, UNSPECIFIED; N18.9 - CHRONIC KIDNEY DISEASE, UNSPECIFIED (8) Diabetes Code(s): E11.9 - TYPE 2 DIABETES MELLITUS WITHOUT COMPLICATIONS Qualifiers: Diabetes mellitus type: type 2 Diabetes mellitus group home insulin use: with certified nurse practitioner use Diabetes mellitus complication status: with kidney complications Diabetes mellitus complication detail: with chronic kidney disease Chronic kidney disease stage: stage 3 (moderate) Qualified Code(s): E11.22 - Type 2 diabetes mellitus with diabetic chronic kidney disease; N18.3 - Chronic kidney disease, stage 3 (moderate); 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
--- NOTE | 2018-05-29 16:16 | CON.NEP ---
Consult Consult Specialty:: nephrology Referred by:: dr loo - History of Present Illness Chief Complaint: sob, decompensated heart failure History of Present Illness: admitted with h/o gradual increase sob s/p dose increase of his lasix after last pmd visit - Past Medical History Cardio/Vascular: Yes: AFIB (after CABG briefly; not on AC), CAD, CHF (systolic) , HTN, Mitral Insufficiency, Other (bioprosthetic AVR, CABG, PVD, s/p AICD, MR) Pulmonary: Yes: Bronchitis, COPD, O2 Dependent (3 L), Pneumonia Gastrointestinal: Yes: Constipation Renal/: Yes: Renal Inusuff (satge 3) Endocrine: Yes: Diabetes Mellitus - Past Surgical History Past Surgical History: Yes: AICD, CABG - Alcohol/Substance Use Hx Alcohol Use: No History of Substance Use: reports: None, Cocaine - Smoking History Smoking history: Current every day smoker Have you smoked in the past 12 months: No Aproximately how many cigarettes per day: 5 If you are a former smoker, when did you quit?: 04/2018 - Social History Usual Living Arrangement: With Spouse ADL: Independent History of Recent Travel: No Home Medications - Allergies Allergies/Adverse Reactions: Allergies Allergy/AdvReac Type Severity Reaction Status Date / Time Fish Containing Products Allergy Verified 04/27/18 20:22 codeine AdvReac Intermediate Vomiting Verified 04/27/18 20:22 gabapentin AdvReac Intermediate dizzy Verified 04/27/18 20:22 - Home Medications Home Medications: Ambulatory Orders Albuterol 0.083% Nebulizer Rosy [Ventolin 0.083% Nebulizer Soln -] 1 amp NEB Q4H PRN #30 amp 05/02/18 Aspirin [ASA -] 81 mg PO DAILY #30 tab.chew 05/02/18 Atorvastatin Ca [Lipitor] 40 mg PO HS #30 tablet 05/02/18 Budesonide/Formeterol Fumarate [SYMBICORT 80/4.5mcg -] 2 puff IH BID #1 inhaler 05/02/18 Cholecalciferol (Vitamin D3) [Vitamin D3] 2,000 unit PO DAILY #30 capsule Clopidogrel Bisulfate [Plavix -] 75 mg PO DAILY #30 tablet 05/02/18 Cyclobenzaprine HCl 5 mg PO HS #30 tablet 05/02/18 Docusate Sodium [Colace -] 100 mg PO TID #90 capsule 05/02/18 Furosemide [Lasix -] 80 mg PO DAILY #60 tablet 05/02/18 Glipizide [Glucotrol -] 5 mg PO BID@0700,1630 #60 tablet 05/02/18 Lactulose [Cephulac -] 10 - 20 gm PO DAILY PRN #1 bottle 05/02/18 Melatonin 5 mg PO HS PRN #30 tab 05/02/18 Metoprolol Succinate [Toprol XL -] 50 mg PO BID #60 tab.sr.24h 05/02/18 Nebulizer [Compact Compressor Nebulizer] 1 each MC ASDIR #1 each 05/02/18 Pantoprazole Sodium [Protonix -] 40 mg PO DAILY #30 tablet.ec 05/02/18 Psyllium [Metamucil (Sugar-Free) -] 5.85 gm PO BID #1 bottle 05/02/18 Ranitidine [Zantac -] 150 mg PO HS #30 tablet 05/02/18 Sennosides [Senna -] 2 tab PO HS PRN #30 tablet 05/02/18 predniSONE [Deltasone -] 5 mg PO ASDIR #32 tab 05/02/18 Oxycodone HCl/Acetaminophen [Percocet 10-325 mg Tablet] 1 each PO TID PRN #80 tablet MDD 3 05/21/18 Family Disease History - Family Disease History Family Disease History: Heart Disease: Father (etoh), Mother (, cva), Other: Brother (alive - Ramírez - hx etoh), Sister (five - alive - no medical problems), Son (two adults - no problems) Nephrology Consult - Height Height: 5 ft 7 in - Weight Weight: 193 lb 6.4 oz - BMI Body Mass Index (BMI): 30.2 - Lab Results CBC,BMP: CBC, BMP 05/29/18 08:10 05/29/18 08:10 Anion Gap: Anion Gap Anion Gap 10 MMOL/L (8-16) 05/29/18 08:10 - Physical Examination Vital Signs: Vital Signs Temperature 96.7 F L 05/29/18 14:00 Pulse Rate 94 H 05/29/18 14:00 Respiratory Rate 20 05/29/18 14:00 Blood Pressure 139/98 05/29/18 14:00 O2 Sat by Pulse Oximetry (%) 96 05/29/18 05:36 Assessment/Plan acute on chronic heart failure water retention azotemia 2/2 ckd at baseline may get worse with aggressive diuresis plan- monitor renal function i and michael rae
[2018-05-29] MEDS ORDERED: PT OWN MED DRAWER 7, Y5N ONE ×2 (17:35→21:13)
[2018-05-29] MEDS: ACETAMINOPHEN 325 MG TABLET (FP) PO PRN (18:14)
[2018-05-29] MEDS: ATORVASTATIN CA 40 MG TABLET (FP) PO SCH (21:15)
[2018-05-29] MEDS: CYCLOBENZAPRINE HCL 5 MG TABLET PO SCH (21:15)
[2018-05-29] MEDS: RANITIDINE HCL 150 MG TABLET (FP) PO SCH (21:15)
[2018-05-30] MEDS: ACETAMINOPHEN 325 MG TABLET (FP) PO PRN ×3 (04:23→21:39)
[2018-05-30] MEDS: DOCUSATE SODIUM 100 MG CAPSULE (FP) PO SCH ×3 (05:24→21:35)
[2018-05-30] MEDS: FUROSEMIDE 40 MG/4 ML INJECTABLE VIAL IVPUSH SCH ×2 (05:27→13:26)
[2018-05-30] MEDS: INSULIN SLIDING SCALE (NOVOLOG) 1 VIAL SQ SCH ×4 (06:06→21:36)
[2018-05-30 06:59] LABS: BASO % 0.9 % (0-2.0); EOS % 3.1 % (0-4.5); HEMATOCRIT 33.6 % (35.4-49); HEMOGLOBIN 11.1 GM/dL (11.7-16.9); LYMPH % 5.7 % (8-40); MCHC 33.1 g/dl (32.0-35.9); MEAN CELL VOLUME 93.7 fl (80-96); MEAN PLT VOLUME 8.7 fl (7.5-11.1); MONO % 7.9 % (3.8-10.2); NEUT % 82.4 % (42.8-82.8); PLATELET COUNT 294 K/MM3 (134-434); RBC 3.59 M/mm3 (4.00-5.60); RDW 20.1 % (11.9-15.9); WHITE BLOOD COUNT 13.1 K/mm3 (4.0-10.0)
[2018-05-30 07:38] LABS: ANION GAP 9 MMOL/L (8-16); BLOOD UREA NITROGEN 47 mg/dL (7-18); CALCIUM 7.8 mg/dL (8.5-10.1); CHLORIDE 98 mmol/L (98-107); CO2 29 mmol/L (21-32); CREATININE 1.9 mg/dL (0.55-1.3); GLUCOSE,RANDOM 88 mg/dL (74-106); MAGNESIUM 1.8 mg/dL (1.8-2.4); PHOSPHOROUS 3.3 mg/dL (2.5-4.9); POTASSIUM 3.4 mmol/L (3.5-5.1); SODIUM 136 mmol/L (136-145)
[2018-05-30] MEDS: CLOPIDOGREL BISULFATE 75 MG TABLET (FP) PO SCH (10:21)
[2018-05-30] MEDS: ASPIRIN 81 MG CHEWABLE TABLETS PO SCH (10:21)
[2018-05-30] MEDS: CHOLECALCIFEROL (VITAMIN D3) 1,000 UNIT TABLET (FP) PO SCH (10:21)
[2018-05-30] MEDS: HEPARIN NA (PORCINE) 5,000 UNITS/ML 1ML VIAL SQ SCH ×2 (10:21→21:36)
[2018-05-30] MEDS: BUDESONIDE/FORMETEROL FUMARATE 80/4.5 mcg INHALER IH SCH ×2 (10:25→21:37)
--- NOTE | 2018-05-30 11:22 | PN ---
Progress Note (short form) - Note Progress Note: s: edema better today, no dyspnea. no chest pain, palps, dizziness, lightheadedness Current Medications Acetaminophen (Tylenol -) 650 mg PO Q4H PRN PRN Reason: PAIN Last Admin: 05/30/18 04:23 Dose: 650 mg Albuterol/Ipratropium (Duoneb -) 1 amp NEB Q6H PRN PRN Reason: SHORTNESS OF BREATH Aspirin (Asa -) 81 mg PO DAILY [facility] Last Admin: 05/30/18 10:21 Dose: 81 mg Atorvastatin Calcium (Lipitor -) 40 mg PO HS [facility] Last Admin: 05/29/18 21:15 Dose: 40 mg Budesonide/Formoterol Fumarate (Symbicort 80/4.5mcg -) 2 puff IH BID [facility] Last Admin: 05/30/18 10:25 Dose: 2 mcg Cholecalciferol (Vitamin D3 -) 2,000 unit PO DAILY [facility] Last Admin: 05/30/18 10:21 Dose: 2,000 unit Clopidogrel Bisulfate (Plavix -) 75 mg PO DAILY [facility] Last Admin: 05/30/18 10:21 Dose: 75 mg Cyclobenzaprine HCl (Cyclobenzaprine Hcl) 5 mg PO HS [facility] Last Admin: 05/29/18 21:15 Dose: 5 mg Docusate Sodium (Colace -) 100 mg PO TID [facility] Last Admin: 05/30/18 05:24 Dose: 100 mg Furosemide (Lasix Injection -) 80 mg IVPUSH BID@0600,1400 [facility] Last Admin: 05/30/18 05:27 Dose: 80 mg Heparin Sodium (Porcine) (Heparin -) 5,000 unit SQ BID [facility] Last Admin: 05/30/18 10:21 Dose: 5,000 unit Insulin Aspart (Novolog Vial Sliding Scale -) 1 vial SQ ACHS [facility]; Protocol Last Admin: 05/30/18 06:06 Dose: Not Given Metoprolol Succinate (Toprol Xl -) 50 mg PO BID [facility] Last Admin: 05/30/18 10:21 Dose: 50 mg Ranitidine HCl (Zantac -) 150 mg PO HS [facility] Last Admin: 05/29/18 21:15 Dose: 150 mg pe: Vital Signs Period Temp Pulse Resp BP Sys/El Pulse Ox Last 24 Hr 96.7 F-98.0 F 94-130 20-20 138-158/62-98 98-98 nad, +JVD rrr s1s2 no mrg rales at bases freida, nl eff aaox3 1+ le edema bl abd nt nd pos bs no jaundice diaphoresis +dp pt no carotid bruits ECG: AFL, V-P, PVCs, LVH, no sig change prior CXR: chf CT head: L thalamic infarct, unchanged from prior echo 06/2016: sev dec lvef, global hk, rv tds, trinity, mod-sev mr, mod tr, rvsp 50- 60 echo 06/2015: mild lve, mod-sev dec lvef, mod lae, nl rv size, mild dec rv fcn, mild-mod mr, mild tr, nl avr fcn, rvsp 30-40 04/14/18 ECHO MSH - moderate left ventricular dilatation overall severe decreased left ventricular systolic function (diffuse); estimated ejection fraction = 30 % The posterior wall is severely hypokinetic. Restrictive diastolic dysfunction normal right ventricular size moderate decreased right ventricular function aortic prosthesis (tissue) no evidence for aortic regurgitation moderate to severe mitral regurgitation mild to moderate tricuspid regurgitation moderate to severe pulmonary hypertension minimal pulmonic regurgitation no evidence for pericardial effusion technically difficult study Definity precision microbubble contrast used to enhance endocardial border definition mibi 06/2016 (pers): non-diagnostic STs; large area inferior/inferolateral/ lateral scar; no ischemia; severe LV cavity dilation; global HK with akinesis of inferior/inferolat/lateral allan; EF 16% mibi 09/2014: large inf scar, mod anteroapical ischemia, lvef 25% a/p: 62 m hx copd, cabgx3 2012, bio avr 2012, pad s/p b/l sfa occlusions, syst chf s/p medtronic icd, htn, hld, a-tach, here with back pain, sob. acute on chronic systolic CHF exacerbation: -recent dc for chf, was doing well but then stopped taking his lasix and other meds for several days and now back with acute chf (second recent admit for med noncompliance) -goal dry wt around 180lbs, on admission 197lbs -was on lasix 80 po daily at home. -05/28- on 80 iv lasix bid with dec Cr, weight down - 05/30 weight charted stable at 193 lbs, however patient says he was not weighed today, renal function improving, edema better - continue same lasix 80 mg IV BID - continue monitor daily wts, chem7, daily standing weights -cont carvedilol. 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 prohibitive falls risk, transferred to [place] recently for evaluation--randomized in Watchman trial -s/p watchman device 04/20--discharged on aspirin and plavix for 3 months protocol. continue same cad/hx of CABG 2012 -no recent angina/ischemia -no signs acs -trop chronically in intermediate range, no significant change in current value , trend for now -cont prior cad med regimen: asa, statin, bb, ccb bio avr: -nl fcn on echo 04/2018 CVA: -age indeterminate L thalamic stroke on CT here 03/2019 -now s/p Watchman device 04/2018, cont aspirin and plavix pad: -stable, no claudication, cont current cardiac meds s/p icd: -no shocks -routine outpt monitoring htn: -bp stable -cont home meds
--- NOTE | 2018-05-30 14:24 | PN ---
Progress Note, Physician Chief Complaint: Mr Owen at first says he does not know how he is doing and he does not think he is better, but then says his legs are going down. Denies cp, sob, n/v. Nephew in the room and states that the changes in his toes are new. - Current Medication List Current Medications: Active Medications Acetaminophen (Tylenol -) 650 mg PO Q4H PRN PRN Reason: PAIN Last Admin: 05/30/18 12:44 Dose: 650 mg Albuterol/Ipratropium (Duoneb -) 1 amp NEB Q6H PRN PRN Reason: SHORTNESS OF BREATH Aspirin (Asa -) 81 mg PO DAILY [facility] Last Admin: 05/30/18 10:21 Dose: 81 mg Atorvastatin Calcium (Lipitor -) 40 mg PO HS [facility] Last Admin: 05/29/18 21:15 Dose: 40 mg Budesonide/Formoterol Fumarate (Symbicort 80/4.5mcg -) 2 puff IH BID [facility] Last Admin: 05/30/18 10:25 Dose: 2 mcg Cholecalciferol (Vitamin D3 -) 2,000 unit PO DAILY [facility] Last Admin: 05/30/18 10:21 Dose: 2,000 unit Clopidogrel Bisulfate (Plavix -) 75 mg PO DAILY [facility] Last Admin: 05/30/18 10:21 Dose: 75 mg Cyclobenzaprine HCl (Cyclobenzaprine Hcl) 5 mg PO HS [facility] Last Admin: 05/29/18 21:15 Dose: 5 mg Docusate Sodium (Colace -) 100 mg PO TID [facility] Last Admin: 05/30/18 13:26 Dose: 100 mg Furosemide (Lasix Injection -) 80 mg IVPUSH BID@0600,1400 [facility] Last Admin: 05/30/18 13:26 Dose: 80 mg Heparin Sodium (Porcine) (Heparin -) 5,000 unit SQ BID [facility] Last Admin: 05/30/18 10:21 Dose: 5,000 unit Insulin Aspart (Novolog Vial Sliding Scale -) 1 vial SQ ACHS [facility]; Protocol Last Admin: 05/30/18 11:56 Dose: 2 units Metoprolol Succinate (Toprol Xl -) 50 mg PO BID [facility] Last Admin: 05/30/18 10:21 Dose: 50 mg Ranitidine HCl (Zantac -) 150 mg PO HS [facility] Last Admin: 05/29/18 21:15 Dose: 150 mg - Objective Vital Signs: Vital Signs Temperature 36.6 C 05/30/18 09:40 Pulse Rate 114 H 05/30/18 09:40 Respiratory Rate 20 05/30/18 09:40 Blood Pressure 142/94 05/30/18 09:40 O2 Sat by Pulse Oximetry (%) 98 05/30/18 09:00 Constitutional: Yes: Well Nourished, No Distress, Calm Cardiovascular: Yes: Regular Rate and Rhythm. No: Gallop, Murmur, Rub Respiratory: Yes: Regular, CTA Bilaterally. No: Rales, Rhonchi, Wheezes Gastrointestinal: Yes: Normal Bowel Sounds, Soft. No: Distention, Tenderness Extremities: Yes: Other (eschar on L foot) Edema: Yes Edema: LLE: 1+, RLE: 1+ Labs: CBC, BMP 05/30/18 05:30 05/30/18 05:30 INR, PTT INR 1.58 (0.83-1.09) H 05/28/18 02:29 Problem List - Problems (1) Acute exacerbation of CHF (congestive heart failure) Code(s): I50.9 - HEART FAILURE, UNSPECIFIED Qualifiers: Heart failure type: unspecified Qualified Code(s): I50.9 - Heart failure, unspecified (2) Afib Code(s): I48.91 - UNSPECIFIED ATRIAL FIBRILLATION Qualifiers: Atrial fibrillation type: chronic Qualified Code(s): I48.2 - Chronic atrial fibrillation (3) Carotid stenosis Code(s): I65.29 - OCCLUSION AND STENOSIS OF UNSPECIFIED CAROTID ARTERY (4) Chronic respiratory failure Code(s): J96.10 - CHRONIC RESPIRATORY FAILURE, UNSP W HYPOXIA OR HYPERCAPNIA (5) Hyperkalemia Code(s): E87.5 - HYPERKALEMIA (6) Troponin I above reference range Code(s): R74.8 - ABNORMAL LEVELS OF OTHER SERUM ENZYMES (7) Acute on chronic renal insufficiency Code(s): N28.9 - DISORDER OF KIDNEY AND URETER, UNSPECIFIED; N18.9 - CHRONIC KIDNEY DISEASE, UNSPECIFIED (8) Diabetes Code(s): E11.9 - TYPE 2 DIABETES MELLITUS WITHOUT COMPLICATIONS Qualifiers: Diabetes mellitus type: type 2 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 insulin use: with residential use Diabetes mellitus complication status: with kidney complications Diabetes mellitus complication detail: with chronic kidney disease Chronic kidney disease stage: stage 3 (moderate) Qualified Code(s): E11.22 - Type 2 diabetes mellitus with diabetic chronic kidney disease; N18.3 - Chronic kidney disease, stage 3 (moderate); Z79.4 - 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
--- NOTE | 2018-05-30 15:21 | CON.ID ---
Consult - Past Medical History Cardio/Vascular: Yes: AFIB (after CABG briefly; not on AC), CAD, CHF (systolic) , HTN, Mitral Insufficiency, Other (bioprosthetic AVR, CABG, PVD, s/p AICD, MR) Pulmonary: Yes: Bronchitis, COPD, O2 Dependent (3 L), Pneumonia Gastrointestinal: Yes: Constipation Renal/: Yes: Renal Inusuff (satge 3) Endocrine: Yes: Diabetes Mellitus - Past Surgical History Past Surgical History: Yes: AICD, CABG - Alcohol/Substance Use Hx Alcohol Use: No History of Substance Use: reports: None, Cocaine - Smoking History Smoking history: Current every day smoker Have you smoked in the past 12 months: No Aproximately how many cigarettes per day: 5 If you are a former smoker, when did you quit?: 04/2018 - Social History Usual Living Arrangement: With Spouse ADL: Independent History of Recent Travel: No Home Medications - Allergies Allergies/Adverse Reactions: Allergies Allergy/AdvReac Type Severity Reaction Status Date / Time Fish Containing Products Allergy Verified 04/27/18 20:22 codeine AdvReac Intermediate Vomiting Verified 04/27/18 20:22 gabapentin AdvReac Intermediate dizzy Verified 04/27/18 20:22 - Home Medications Home Medications: Ambulatory Orders Albuterol 0.083% Nebulizer Rosy [Ventolin 0.083% Nebulizer Soln -] 1 amp NEB Q4H PRN #30 amp 05/02/18 Aspirin [ASA -] 81 mg PO DAILY #30 tab.chew 05/02/18 Atorvastatin Ca [Lipitor] 40 mg PO HS #30 tablet 05/02/18 Budesonide/Formeterol Fumarate [SYMBICORT 80/4.5mcg -] 2 puff IH BID #1 inhaler 05/02/18 Cholecalciferol (Vitamin D3) [Vitamin D3] 2,000 unit PO DAILY #30 capsule Clopidogrel Bisulfate [Plavix -] 75 mg PO DAILY #30 tablet 05/02/18 Cyclobenzaprine HCl 5 mg PO HS #30 tablet 05/02/18 Docusate Sodium [Colace -] 100 mg PO TID #90 capsule 05/02/18 Furosemide [Lasix -] 80 mg PO DAILY #60 tablet 05/02/18 Glipizide [Glucotrol -] 5 mg PO BID@0700,1630 #60 tablet 05/02/18 Lactulose [Cephulac -] 10 - 20 gm PO DAILY PRN #1 bottle 05/02/18 Melatonin 5 mg PO HS PRN #30 tab 05/02/18 Metoprolol Succinate [Toprol XL -] 50 mg PO BID #60 tab.sr.24h 05/02/18 Nebulizer [Compact Compressor Nebulizer] 1 each MC ASDIR #1 each 05/02/18 Pantoprazole Sodium [Protonix -] 40 mg PO DAILY #30 tablet.ec 05/02/18 Psyllium [Metamucil (Sugar-Free) -] 5.85 gm PO BID #1 bottle 05/02/18 Ranitidine [Zantac -] 150 mg PO HS #30 tablet 05/02/18 Sennosides [Senna -] 2 tab PO HS PRN #30 tablet 05/02/18 predniSONE [Deltasone -] 5 mg PO ASDIR #32 tab 05/02/18 Oxycodone HCl/Acetaminophen [Percocet 10-325 mg Tablet] 1 each PO TID PRN #80 tablet MDD 3 05/21/18 Family Disease History - Family Disease History Family Disease History: Heart Disease: Father (etoh), Mother (, cva), Other: Brother (alive - Ramírez - hx etoh), Sister (five - alive - no medical problems), Son (two adults - no problems) Physical Exam Vital Signs: Vital Signs Temperature 98 F 05/30/18 09:40 Pulse Rate 114 H 05/30/18 09:40 Respiratory Rate 20 05/30/18 09:40 Blood Pressure 142/94 05/30/18 09:40 O2 Sat by Pulse Oximetry (%) 98 05/30/18 09:00 Labs: CBC, BMP 05/30/18 05:30 05/30/18 05:30
--- NOTE | 2018-05-30 15:32 | CONSULT ---
Consult - text type - Consultation Consultation Note: Podiatry Consultation: 62 year old diabetic male presents with L foot swelling, discoloration to the toes of unknown duration. Denies F/V/N/C/SOB/CP. Patient states that he lives at home. He states he had a watchman's procedure recently. Does note intermittent pain to the left foot. Currently afebrile. PMHx: COPD (on 2L home O2) HTN, IDDM, Systolic CHF, Aflutter , CAD s/p PPM and watchman placement( 2019) Meds: noted ALL: fish containing products, codeine, gabapentin LORE: L foot: pedal pulses nonpalpable, TG warm-cool, CFT absent to all toes. There is gangrenous changes tips of digits 1-5 with skin sloughing, ischemic blistering noted to the metatarsals, serous drainage, no purulence, no soft tissue crepitus. Moderate tenderness to palpation. No streaking cellulitis. The foot is cool to touch. 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 Vascular consultation. 2. IV abx per ID 3. Local wound care. 4. Patient is at risk for TMA if there is enough peripheral vasculature. Will need vascular eval prior to any planned procedure. 5. Will follow. Thank you for the courtesy of this consultation. Aliza Alvarez DPM
[2018-05-30] MEDS ORDERED: DEXTROSE 5%-WATER - 50 ML IVPB ONE (17:06)
[2018-05-30] MEDS ORDERED: PIPERACILLIN/TAZOBACTAM 2.25 GM VIAL IVPB ONE (17:06)
[2018-05-30] MEDS: PIPERACILLIN/TAZOB 2.25 GM 2.25 GM in DEXTROSE 5%-WATER - 50 ML IVPB SCH (17:16)
[2018-05-30] MEDS ORDERED: POTASSIUM CHLORIDE TABS 20 MEQ TABLET.ER (FP) PO ONE (17:24)
[2018-05-30] MEDS: ATORVASTATIN CA 40 MG TABLET (FP) PO SCH (21:36)
[2018-05-30] MEDS: CYCLOBENZAPRINE HCL 5 MG TABLET PO SCH (21:36)
[2018-05-30] MEDS: RANITIDINE HCL 150 MG TABLET (FP) PO SCH (21:37)
--- NOTE | 2018-05-30 22:29 | PN ---
Progress Note (short form) - Note Progress Note: acute on chronic heart failure water retention azotemia 2/2 ckd at baseline may get worse with aggressive diuresis plan- monitor renal function i and o daiy weights Active Medications Acetaminophen (Tylenol -) 650 mg PO Q4H PRN PRN Reason: PAIN Last Admin: 05/30/18 21:39 Dose: 650 mg Albuterol/Ipratropium (Duoneb -) 1 amp NEB Q6H PRN PRN Reason: SHORTNESS OF BREATH Aspirin (Asa -) 81 mg PO DAILY [facility] Last Admin: 05/30/18 10:21 Dose: 81 mg Atorvastatin Calcium (Lipitor -) 40 mg PO HS [facility] Last Admin: 05/30/18 21:36 Dose: 40 mg Budesonide/Formoterol Fumarate (Symbicort 80/4.5mcg -) 2 puff IH BID [facility] Last Admin: 05/30/18 21:37 Dose: 2 mcg Cholecalciferol (Vitamin D3 -) 2,000 unit PO DAILY [facility] Last Admin: 05/30/18 10:21 Dose: 2,000 unit Clopidogrel Bisulfate (Plavix -) 75 mg PO DAILY [facility] Last Admin: 05/30/18 10:21 Dose: 75 mg Cyclobenzaprine HCl (Cyclobenzaprine Hcl) 5 mg PO HS [facility] Last Admin: 05/30/18 21:36 Dose: 5 mg Docusate Sodium (Colace -) 100 mg PO TID [facility] Last Admin: 05/30/18 21:35 Dose: 100 mg Furosemide (Lasix Injection -) 80 mg IVPUSH BID@0600,1400 [facility] Last Admin: 05/30/18 13:26 Dose: 80 mg Heparin Sodium (Porcine) (Heparin -) 5,000 unit SQ BID [facility] Last Admin: 05/30/18 21:36 Dose: 5,000 unit Piperacillin Sod/Tazobactam (Sod 2.25 gm/ Dextrose) 50 mls @ 100 mls/hr IVPB Q8H-IV [facility]; Protocol Last Admin: 05/30/18 17:16 Dose: 100 mls/hr Insulin Aspart (Novolog Vial Sliding Scale -) 1 vial SQ ACHS [facility]; Protocol Last Admin: 05/30/18 21:36 Dose: 2 units Metoprolol Succinate (Toprol Xl -) 50 mg PO BID [facility] Last Admin: 05/30/18 21:37 Dose: 50 mg Ranitidine HCl (Zantac -) 150 mg PO HS [facility] Last Admin: 05/30/18 21:37 Dose: 150 mg Last Vital Signs Temp Pulse Resp BP Pulse Ox 98.1 F 102 H 20 150/90 98 05/30/18 22:00 05/30/18 22:00 05/30/18 22:00 05/30/18 22:00 05/30/18 21:00 CBC, BMP 05/30/18 05:30 05/30/18 05:30 fior on ckd hypokalemia leukocytosis Plan- f/u labs tomorrow may have to replace K cautiously
[2018-05-31] MEDS ORDERED: PIPERACILLIN/TAZOBACTAM 2.25 GM VIAL IVPB ONE (00:55)
[2018-05-31] MEDS ORDERED: DEXTROSE 5%-WATER - 50 ML IVPB ONE (00:55)
[2018-05-31] MEDS: PIPERACILLIN/TAZOB 2.25 GM 2.25 GM in DEXTROSE 5%-WATER - 50 ML IVPB SCH ×4 (00:59→18:01)
[2018-05-31 06:06] LABS: BASO % 0.6 % (0-2.0); EOS % 0.5 % (0-4.5); HEMATOCRIT 34.4 % (35.4-49); HEMOGLOBIN 11.6 GM/dL (11.7-16.9); LYMPH % 2.5 % (8-40); MCH 31.2 pg (25.7-33.7); MCHC 33.7 g/dl (32.0-35.9); MEAN CELL VOLUME 92.5 fl (80-96); MEAN PLT VOLUME 8.4 fl (7.5-11.1); MONO % 5.7 % (3.8-10.2); NEUT % 90.7 % (42.8-82.8); PLATELET COUNT 286 K/MM3 (134-434); RBC 3.72 M/mm3 (4.00-5.60); WHITE BLOOD COUNT 15.5 K/mm3 (4.0-10.0)
[2018-05-31 06:30] LABS: ANION GAP 8 MMOL/L (8-16); BLOOD UREA NITROGEN 49 mg/dL (7-18); CALCIUM 7.6 mg/dL (8.5-10.1); CHLORIDE 99 mmol/L (98-107); CO2 28 mmol/L (21-32); CREATININE 1.9 mg/dL (0.55-1.3); GLUCOSE,RANDOM 77 mg/dL (74-106); MAGNESIUM 1.9 mg/dL (1.8-2.4); PHOSPHOROUS 3.1 mg/dL (2.5-4.9); POTASSIUM 3.7 mmol/L (3.5-5.1); SODIUM 136 mmol/L (136-145)
[2018-05-31] MEDS: DOCUSATE SODIUM 100 MG CAPSULE (FP) PO SCH ×3 (06:41→22:45)
[2018-05-31] MEDS: INSULIN SLIDING SCALE (NOVOLOG) 1 VIAL SQ SCH ×3 (06:41→18:01)
[2018-05-31] MEDS: FUROSEMIDE 40 MG/4 ML INJECTABLE VIAL IVPUSH SCH (06:41)
--- NOTE | 2018-05-31 09:45 | PN ---
Progress Note (short form) - Note Progress Note: Vascular Surgery Pt seen and examined. Left foot - toes tips - with gangrene. Leg is warm. Pt has dopplerable DP and PT pulses. Pt has good motor and sensory intact. Will start santyl to toes daily. Duplex of leg ordered - awaiting US. Pt might need angiogram. Please optimize from a medical and cardiology perspective. Arsen Rousseau DO
[2018-05-31] MEDS: HEPARIN NA (PORCINE) 5,000 UNITS/ML 1ML VIAL SQ SCH ×2 (10:19→22:45)
[2018-05-31] MEDS: CHOLECALCIFEROL (VITAMIN D3) 1,000 UNIT TABLET (FP) PO SCH (10:19)
[2018-05-31] MEDS: CLOPIDOGREL BISULFATE 75 MG TABLET (FP) PO SCH (10:20)
[2018-05-31] MEDS: ASPIRIN 81 MG CHEWABLE TABLETS PO SCH (10:20)
[2018-05-31] MEDS: ACETAMINOPHEN 325 MG TABLET (FP) PO PRN (10:20)
[2018-05-31] MEDS: BUDESONIDE/FORMETEROL FUMARATE 80/4.5 mcg INHALER IH SCH ×2 (10:21→22:00)
--- NOTE | 2018-05-31 10:30 | PN ---
Progress Note, Physician Chief Complaint: sob History of Present Illness: not urinating much at all to lasix IV no sob, laying in bed only no leg swelling other than infected foot no cp, palpit + recent cigs - Current Medication List Current Medications: Active Medications Acetaminophen (Tylenol -) 650 mg PO Q4H PRN PRN Reason: PAIN Last Admin: 05/31/18 10:20 Dose: 650 mg Albuterol/Ipratropium (Duoneb -) 1 amp NEB Q6H PRN PRN Reason: SHORTNESS OF BREATH Aspirin (Asa -) 81 mg PO DAILY [facility] Last Admin: 05/31/18 10:20 Dose: 81 mg Atorvastatin Calcium (Lipitor -) 40 mg PO HS [facility] Last Admin: 05/30/18 21:36 Dose: 40 mg Budesonide/Formoterol Fumarate (Symbicort 80/4.5mcg -) 2 puff IH BID [facility] Last Admin: 05/31/18 10:21 Dose: 2 puff Cholecalciferol (Vitamin D3 -) 2,000 unit PO DAILY [facility] Last Admin: 05/31/18 10:19 Dose: 2,000 unit Clopidogrel Bisulfate (Plavix -) 75 mg PO DAILY [facility] Last Admin: 05/31/18 10:20 Dose: 75 mg Collagenase (Santyl -) 1 applic TP DAILY [facility]; Protocol Cyclobenzaprine HCl (Cyclobenzaprine Hcl) 5 mg PO HS [facility] Last Admin: 05/30/18 21:36 Dose: 5 mg Docusate Sodium (Colace -) 100 mg PO TID [facility] Last Admin: 05/31/18 06:41 Dose: 100 mg Furosemide (Lasix Injection -) 80 mg IVPUSH BID@0600,1400 [facility] Last Admin: 05/31/18 06:41 Dose: 80 mg Heparin Sodium (Porcine) (Heparin -) 5,000 unit SQ BID [facility] Last Admin: 05/31/18 10:19 Dose: 5,000 unit Piperacillin Sod/Tazobactam (Sod 2.25 gm/ Dextrose) 50 mls @ 100 mls/hr IVPB Q8H-IV [facility]; Protocol Last Admin: 05/31/18 00:59 Dose: 100 mls/hr Insulin Aspart (Novolog Vial Sliding Scale -) 1 vial SQ ACHS [facility]; Protocol Last Admin: 05/31/18 06:41 Dose: Not Given Metoprolol Succinate (Toprol Xl -) 50 mg PO BID [facility] Last Admin: 05/31/18 10:20 Dose: 50 mg Ranitidine HCl (Zantac -) 150 mg PO HS [facility] Last Admin: 05/30/18 21:37 Dose: 150 mg - Objective Vital Signs: Vital Signs Temperature 97.5 F L 05/31/18 09:49 Pulse Rate 130 H 05/31/18 09:49 Respiratory Rate 20 05/31/18 09:49 Blood Pressure 166/82 05/31/18 09:49 O2 Sat by Pulse Oximetry (%) 98 05/31/18 09:00 Constitutional: Yes: No Distress, Calm Eyes: No: Sclera Icterus HENT: No: Nasal Congestion Cardiovascular: Yes: Regular Rate and Rhythm, JVD (to jaw), S1, S2, Other (PMI non diplaced). No: Gallop, Murmur Respiratory: Yes: CTA Bilaterally, Diminished (L base). No: Accessory Muscle Use, Rales, Wheezes Gastrointestinal: Yes: Normal Bowel Sounds, Soft. No: Tenderness Musculoskeletal: Yes: Other (No kyphosis) Extremities: No: Cold Edema: Yes (L foot) Integumentary: No: Jaundice Neurological: Yes: Alert, Oriented (x3) Psychiatric: No: Agitated Labs: CBC, BMP 05/31/18 05:30 05/31/18 05:30 INR, PTT INR 1.58 (0.83-1.09) H 05/28/18 02:29 Assessment/Plan ECG: AFL, V-P, PVCs, LVH, no sig change prior CXR: chf. infiltrate vs fluid L base CT head: L thalamic infarct, unchanged from prior echo 06/2016: sev dec lvef, global hk, rv tds, trinity, mod-sev mr, mod tr, rvsp 50- 60 echo 06/2015: mild lve, mod-sev dec lvef, mod lae, nl rv size, mild dec rv fcn, mild-mod mr, mild tr, nl avr fcn, rvsp 30-40 04/14/18 ECHO MSH - moderate left ventricular dilatation overall severe decreased left ventricular systolic function (diffuse); estimated ejection fraction = 30 % The posterior wall is severely hypokinetic. Restrictive diastolic dysfunction normal right ventricular size moderate decreased right ventricular function aortic prosthesis (tissue) no evidence for aortic regurgitation moderate to severe mitral regurgitation mild to moderate tricuspid regurgitation moderate to severe pulmonary hypertension minimal pulmonic regurgitation no evidence for pericardial effusion technically difficult study Definity precision microbubble contrast used to enhance endocardial border definition mibi 06/2016 (pers): non-diagnostic STs; large area inferior/inferolateral/ lateral scar; no ischemia; severe LV cavity dilation; global HK with akinesis of inferior/inferolat/lateral allan; EF 16% mibi 09/2014: large inf scar, mod anteroapical ischemia, lvef 25% tele: AFL HRs frequently 130s (to 90s). 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 acute on chronic systolic CHF exacerbation: -recent dc for chf, was doing well but then stopped taking his lasix and other meds for several days and now back with acute chf (second recent admit for med noncompliance) -goal dry wt around 180lbs, on admission 197lbs -was on lasix 80 po daily at home. -05/28- on 80 iv lasix bid with dec Cr, weight down - 05/30 weight charted stable at 193 lbs, however patient says he was not weighed today, renal function improving, edema better - continue same lasix 80 mg IV BID - 05/31 wt unchanged at 193, above dry wt. poor diuretic response to lasix 80 iv per patient. he is well-compensated with JVD but no peripheral edema, no sob at rest, + L effusion on cxr. increase lasix to 100 iv bid, will give one time test dose metolazone 2.5 today. improved AF rate control, as disc 'd -cont metoprolol. 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 HR control suboptimal. -05/31: incr metopr succ 50 bid to 75 bid -CHADS VASC 5. prohibitive falls risk, transferred to [place] [facility] for evaluation--randomized in Watchman trial -s/p watchman device 04/20--discharged on aspirin and plavix for 3 months protocol. continue same cad/hx of CABG 2012 -no recent angina/ischemia -no signs acs -trop chronically in intermediate range, no significant change in current value , trend for now -cont prior cad med regimen: asa, statin, bb, ccb bio avr: -nl fcn on echo 04/2018 CVA: -age indeterminate L thalamic stroke on CT here 03/2019 -now s/p Watchman device 04/2018, cont aspirin and plavix s/p icd: -no shocks -routine outpt monitoring htn: -bp stable -cont home meds
[2018-05-31] MEDS: COLLAGENASE CLOSTRIDIUM HIST. 30 GRAMS TUBE TP SCH ×2 (10:33→18:01)
[2018-05-31] MEDS ORDERED: metoPROLOL SUCCINATE 25 MG TAB.SR.24H (FP) PO ONE (10:37)
--- NOTE | 2018-05-31 10:41 | PN ---
Physical Exam: SUBJECTIVE: Patient seen and examined lying comfortably in bed no new issus states swelling in legs is getting better. denies chest pain, sob, palpitations. nausea vomiting OBJECTIVE: Vital Signs Period Temp Pulse Resp BP Sys/El Pulse Ox Last 24 Hr 97.2 F-98.1 F 102-972 18-20 128-166/64-95 98-98 GENERAL: Awake, alert, and fully oriented, in acute distress. HEAD: Normal with no signs of trauma. EYES: Pupils equal, round and reactive to light, EARS, NOSE, THROAT: Moist mucous membranes. NECK: Normal range of motion, supple without lymphadenopathy, JVP distended , or masses. LUNGS: Bb/l air entry present,no crackels ABDOMEN: Soft, nontender, not distended, normoactive bowel sounds, no guarding, no rebound, no masses. UPPER EXTREMITIES: 2+ pulses, warm, well-perfused. LOWER EXTREMITIES: pitting edema decreased, dry gangrene present on left foot, dusky color present, line of demarcation present, no foul smell PSYCHIATRIC: Cooperative. Good eye contact. SKIN: Warm, dry, Laboratory Results - last 24 hr 05/30/18 05/30/18 05/30/18 11:51 17:14 21:35 WBC RBC Hgb Hct MCV MCH MCHC RDW Plt Count MPV Absolute Neuts (auto) Neutrophils % Lymphocytes % Monocytes % Eosinophils % Basophils % Nucleated RBC % Sodium Potassium Chloride Carbon Dioxide Anion Gap BUN Creatinine Creat Clearance w eGFR POC Glucometer 187 298 172 Random Glucose Calcium Phosphorus Magnesium 05/31/18 05/31/18 05/31/18 05:30 05:30 05:45 WBC 15.5 H RBC 3.72 L Hgb 11.6 L Hct 34.4 L MCV 92.5 MCH 31.2 MCHC 33.7 RDW 20.0 H Plt Count 286 MPV 8.4 Absolute Neuts (auto) 14.1 H Neutrophils % 90.7 H Lymphocytes % 2.5 L D Monocytes % 5.7 Eosinophils % 0.5 D Basophils % 0.6 Nucleated RBC % 0 Sodium 136 Potassium 3.7 Chloride 99 Carbon Dioxide 28 Anion Gap 8 BUN 49 H Creatinine 1.9 H Creat Clearance w eGFR 36.10 POC Glucometer 97 Random Glucose 77 Calcium 7.6 L Phosphorus 3.1 Magnesium 1.9 Active Medications Generic Name Dose Route Start Last Admin Trade Name Freq PRN Reason Stop Dose Admin Acetaminophen 650 mg 05/29/18 15:41 05/31/18 10:20 Tylenol - PO 650 mg Q4H PRN Administration PAIN Albuterol/Ipratropium 1 amp 05/28/18 11:38 Duoneb - NEB Q6H PRN SHORTNESS OF BREATH Aspirin 81 mg 05/28/18 11:38 05/31/18 10:20 Asa - PO 81 mg DAILY [facility] Administration Atorvastatin Calcium 40 mg 05/28/18 22:00 05/30/18 21:36 Lipitor - PO 40 mg HS [facility] Administration Budesonide/Formoterol Fumarate 2 puff 05/28/18 22:00 05/31/18 10:21 Symbicort 80/4.5mcg - IH 2 puff BID [facility] Administration Cholecalciferol 2,000 unit 05/29/18 10:00 05/31/18 10:19 Vitamin D3 - PO 2,000 unit DAILY [facility] Administration Clopidogrel Bisulfate 75 mg 05/28/18 11:38 05/31/18 10:20 Plavix - PO 75 mg DAILY [facility] Administration Collagenase 1 applic 05/31/18 10:00 05/31/18 10:33 Santyl - TP Not Given DAILY [facility] Protocol Cyclobenzaprine HCl 5 mg 05/28/18 22:00 05/30/18 21:36 Cyclobenzaprine Hcl PO 5 mg HS [facility] Administration Docusate Sodium 100 mg 05/28/18 14:00 05/31/18 06:41 Colace - PO 100 mg TID [facility] Administration Furosemide 100 mg 05/31/18 10:36 Lasix Injection - IVPB BID@0600,1400 [facility] Heparin Sodium (Porcine) 5,000 unit 05/28/18 22:00 05/31/18 10:19 Heparin - SQ 5,000 unit BID [facility] Administration Piperacillin Sod/Tazobactam 50 mls @ 100 mls/hr 05/30/18 18:00 05/31/18 10:33 Sod 2.25 gm/ Dextrose IVPB Not Given Q8H-IV [facility] Protocol Insulin Aspart 1 vial 05/28/18 16:30 05/31/18 06:41 Novolog Vial Sliding Scale - SQ Not Given ACHS [facility] Protocol Metolazone 2.5 mg 05/31/18 13:30 Zaroxolyn - PO 05/31/18 13:31 ONCE ONE Metoprolol Succinate 75 mg 05/31/18 10:37 Toprol Xl - PO BID [facility] Metoprolol Succinate 25 mg 05/31/18 10:37 Toprol Xl - PO 05/31/18 10:38 ONCE ONE Ranitidine HCl 150 mg 05/28/18 22:00 05/30/18 21:37 Zantac - PO 150 mg HS [facility] Administration ASSESSMENT/PLAN: (1) Acute exacerbation of CHF (congestive heart failure) Monitor vitals monior intake ouput IV lasix incraesed to 100 mg bid low salt diet keep head end elevated daily weight/ echo done on 03/15/18 reviewed ef 30-35 cariology on case metoprolol xl increased to 75 bid PVD with dry to we t gangrene duplex arterial scan pending vascular surgery on case pt on aspirina n dplavix antibiotics as per ID Hyperkalemia resolved Troponemia; likely demand or can be in setting of ckd 2 COPD (chronic obstructive pulmonary disease) chronic, O2 dependent continue nebs symbicort. no wheezing (3) Atrial fib/CAD hr 130 s/p watchman's device 04/2018 metoprolol incraesed to 75 bid continue asa/plavix x 3 months continue statin cardiac monitoring cardiology following (4) Chronic kidney disease (CKD) likely from cardiorenal syndrome monitor cr avoid nephrtoxic drugs (5) Diabetes hold oral hypoglycemia started on insulin sliding scale bgm monitoring (6) HTN (hypertension) -controlled -continue home regimen (7 ) Low back pain -chronic -PT -analgesics prn - continue cyclobenzaprine (8) Anemia in chronic kidney disease Hb stable Fluid: orally allowed : free water intake< 1L electrolyte: hyponatremia: resolved nutrition: low salt and fat diet dvt pro heparin sq gi pro zantac Visit type - Emergency Visit Emergency Visit: Yes ED Registration Date: 05/28/18 Care time: The patient presented to the Emergency Department on the above date and was hospitalized for further evaluation of their emergent condition. - New Patient This patient is new to me today: No - Critical Care Critical Care patient: No
--- NOTE | 2018-05-31 13:09 | PN ---
Progress Note, Physician History of Present Illness: patient feels slightly better no complaints still resp complaints - Current Medication List Current Medications: Active Medications Acetaminophen (Tylenol -) 650 mg PO Q4H PRN PRN Reason: PAIN Last Admin: 05/31/18 10:20 Dose: 650 mg Albuterol/Ipratropium (Duoneb -) 1 amp NEB Q6H PRN PRN Reason: SHORTNESS OF BREATH Aspirin (Asa -) 81 mg PO DAILY [facility] Last Admin: 05/31/18 10:20 Dose: 81 mg Atorvastatin Calcium (Lipitor -) 40 mg PO HS [facility] Last Admin: 05/30/18 21:36 Dose: 40 mg Budesonide/Formoterol Fumarate (Symbicort 80/4.5mcg -) 2 puff IH BID [facility] Last Admin: 05/31/18 10:21 Dose: 2 puff Cholecalciferol (Vitamin D3 -) 2,000 unit PO DAILY [facility] Last Admin: 05/31/18 10:19 Dose: 2,000 unit Clopidogrel Bisulfate (Plavix -) 75 mg PO DAILY [facility] Last Admin: 05/31/18 10:20 Dose: 75 mg Collagenase (Santyl -) 1 applic TP DAILY [facility]; Protocol Last Admin: 05/31/18 10:33 Dose: Not Given Cyclobenzaprine HCl (Cyclobenzaprine Hcl) 5 mg PO HS [facility] Last Admin: 05/30/18 21:36 Dose: 5 mg Docusate Sodium (Colace -) 100 mg PO TID [facility] Last Admin: 05/31/18 06:41 Dose: 100 mg Furosemide (Lasix Injection -) 100 mg IVPB BID@0600,1400 [facility] Heparin Sodium (Porcine) (Heparin -) 5,000 unit SQ BID [facility] Last Admin: 05/31/18 10:19 Dose: 5,000 unit Piperacillin Sod/Tazobactam (Sod 2.25 gm/ Dextrose) 50 mls @ 100 mls/hr IVPB Q8H-IV [facility]; Protocol Last Admin: 05/31/18 11:22 Dose: 100 mls/hr Insulin Aspart (Novolog Vial Sliding Scale -) 1 vial SQ ACHS [facility]; Protocol Last Admin: 05/31/18 06:41 Dose: Not Given Lactulose (Cephulac (Oral Use)) 20 gm PO DAILY [facility] Metolazone (Zaroxolyn -) 2.5 mg PO ONCE ONE Stop: 05/31/18 13:31 Metoprolol Succinate (Toprol Xl -) 75 mg PO BID [facility] Ranitidine HCl (Zantac -) 150 mg PO HS [facility] Last Admin: 05/30/18 21:37 Dose: 150 mg - Objective Vital Signs: Vital Signs Temperature 97.5 F L 05/31/18 09:49 Pulse Rate 130 H 05/31/18 09:49 Respiratory Rate 20 05/31/18 09:49 Blood Pressure 166/82 05/31/18 09:49 O2 Sat by Pulse Oximetry (%) 98 05/31/18 09:00 Constitutional: Yes: Calm, Mild Distress Cardiovascular: Yes: Regular Rate and Rhythm Respiratory: Yes: Regular, On Nasal O2, Poor Air Entry Gastrointestinal: Yes: Normal Bowel Sounds, Soft Musculoskeletal: Yes: WNL Extremities: Yes: Other (left toe gamgrene) Integumentary: Yes: Erythema, Other (gangrene) Wound/Incision: Yes: Open to air Neurological: Yes: Alert, Oriented Psychiatric: Yes: Alert, Oriented Labs: CBC, BMP 05/31/18 05:30 05/31/18 05:30 INR, PTT INR 1.58 (0.83-1.09) H 05/28/18 02:29 Assessment/Plan gangrene of the foot cellulitis of the foot copd chf dm htn fior pvd plan will continue bx await for final decision rest as per the team patient needs amputation
[2018-05-31] MEDS ORDERED: METOLAZONE 2.5 MG TABLET (FP) PO ONE (13:30)
[2018-05-31] MEDS: FUROSEMIDE 100 MG/10 ML INJECTABLE VIAL IVPB SCH (14:00)
--- NOTE | 2018-05-31 15:00 | PN ---
Teaching Attending Note Name of Resident: Rafael Lieberman ATTENDING PHYSICIAN STATEMENT I saw and evaluated the patient. I reviewed the resident's note and discussed the case with the resident. I agree with the resident's findings and plan as documented. SUBJECTIVE: Mr Owen says he is feeling fine today. Denies cp, sob, n/v. Says swelling is much improved OBJECTIVE: Last Vital Signs Temp Pulse Resp BP Pulse Ox 36.6 C 127 H 20 131/100 98 05/31/18 14:49 05/31/18 14:49 05/31/18 14:49 05/31/18 14:49 05/31/18 09:00 Gen: nad Pulm: slight bibasilar ronchi today CV: irreg irreg w/o m/r/g Abd: +bs, s/nt/nd Ext: 1+ BLE pitting edema, LLE with gangrene CBC, BMP 05/31/18 05:30 05/31/18 05:30 ASSESSMENT AND PLAN: -appreciate ID, vascular surgery, and podiatry assistance -suspect will need amputation -continue zosyn -case d/w Dr Greer, increase lasix to 100mg bid -vascular surgery planning for angiogram when medically optimized -continue current regimen Problem List - Problems (1) Acute exacerbation of CHF (congestive heart failure) Code(s): I50.9 - HEART FAILURE, UNSPECIFIED Qualifiers: Heart failure type: unspecified Qualified Code(s): I50.9 - Heart failure, unspecified (2) Afib Code(s): I48.91 - UNSPECIFIED ATRIAL FIBRILLATION Qualifiers: Atrial fibrillation type: chronic Qualified Code(s): I48.2 - Chronic atrial fibrillation (3) Carotid stenosis Code(s): I65.29 - OCCLUSION AND STENOSIS OF UNSPECIFIED CAROTID ARTERY (4) Chronic respiratory failure Code(s): J96.10 - CHRONIC RESPIRATORY FAILURE, UNSP W HYPOXIA OR HYPERCAPNIA (5) Hyperkalemia Code(s): E87.5 - HYPERKALEMIA (6) Troponin I above reference range Code(s): R74.8 - ABNORMAL LEVELS OF OTHER SERUM ENZYMES (7) Acute on chronic renal insufficiency Code(s): N28.9 - DISORDER OF KIDNEY AND URETER, UNSPECIFIED; N18.9 - CHRONIC KIDNEY DISEASE, UNSPECIFIED (8) Diabetes Code(s): E11.9 - TYPE 2 DIABETES MELLITUS WITHOUT COMPLICATIONS Qualifiers: Diabetes mellitus type: type 2 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
--- NOTE | 2018-05-31 17:25 | PN ---
Progress Note, Physician History of Present Illness: Pt seen and examined at bedside. He is awake and alert. He feels that his breathing is improved. - Current Medication List Current Medications: Active Medications Acetaminophen (Tylenol -) 650 mg PO Q4H PRN PRN Reason: PAIN Last Admin: 05/31/18 10:20 Dose: 650 mg Albuterol/Ipratropium (Duoneb -) 1 amp NEB Q6H PRN PRN Reason: SHORTNESS OF BREATH Aspirin (Asa -) 81 mg PO DAILY [facility] Last Admin: 05/31/18 10:20 Dose: 81 mg Atorvastatin Calcium (Lipitor -) 40 mg PO HS MANJU Last Admin: 05/30/18 21:36 Dose: 40 mg Budesonide/Formoterol Fumarate (Symbicort 80/4.5mcg -) 2 puff IH BID [facility] Last Admin: 05/31/18 10:21 Dose: 2 puff Cholecalciferol (Vitamin D3 -) 2,000 unit PO DAILY [facility] Last Admin: 05/31/18 10:19 Dose: 2,000 unit Clopidogrel Bisulfate (Plavix -) 75 mg PO DAILY [facility] Last Admin: 05/31/18 10:20 Dose: 75 mg Collagenase (Santyl -) 1 applic TP DAILY [facility]; Protocol Last Admin: 05/31/18 10:33 Dose: Not Given Cyclobenzaprine HCl (Cyclobenzaprine Hcl) 5 mg PO HS [facility] Last Admin: 05/30/18 21:36 Dose: 5 mg Docusate Sodium (Colace -) 100 mg PO TID MANJU Last Admin: 05/31/18 14:00 Dose: 100 mg Furosemide (Lasix Injection -) 100 mg IVPB BID@0600,1400 [facility] Last Admin: 05/31/18 14:00 Dose: 100 mg Heparin Sodium (Porcine) (Heparin -) 5,000 unit SQ BID [facility] Last Admin: 05/31/18 10:19 Dose: 5,000 unit Piperacillin Sod/Tazobactam (Sod 2.25 gm/ Dextrose) 50 mls @ 100 mls/hr IVPB Q8H-IV [facility]; Protocol Last Admin: 05/31/18 11:22 Dose: 100 mls/hr Insulin Aspart (Novolog Vial Sliding Scale -) 1 vial SQ ACHS [facility]; Protocol Last Admin: 05/31/18 14:00 Dose: 2 units Lactulose (Cephulac (Oral Use)) 20 gm PO DAILY [facility] Metoprolol Succinate (Toprol Xl -) 75 mg PO BID [facility] Ranitidine HCl (Zantac -) 150 mg PO HS [facility] Last Admin: 05/30/18 21:37 Dose: 150 mg - Objective Vital Signs: Vital Signs Temperature 97.9 F 05/31/18 14:49 Pulse Rate 127 H 05/31/18 14:49 Respiratory Rate 20 05/31/18 14:49 Blood Pressure 131/100 05/31/18 14:49 O2 Sat by Pulse Oximetry (%) 98 05/31/18 09:00 Constitutional: Yes: Calm Eyes: Yes: Conjunctiva Clear HENT: Yes: Atraumatic Neck: Yes: Supple Cardiovascular: Yes: S1, S2 Respiratory: Yes: On Nasal O2 Gastrointestinal: Yes: Soft Genitourinary: Yes: WNL Edema: Yes Edema: LLE: 1+, RLE: 1+ Integumentary: Yes: Other (gangrene left toe) Neurological: Yes: Oriented Psychiatric: Yes: Oriented Labs: CBC, BMP 05/31/18 05:30 05/31/18 05:30 INR, PTT INR 1.58 (0.83-1.09) H 05/28/18 02:29 Assessment/Plan Current Medications Generic Name Dose Route Start Last Admin Trade Name Williamq PRN Reason Stop Dose Admin Acetaminophen 650 mg 05/29/18 15:41 05/31/18 10:20 Tylenol - PO 650 mg Q4H PRN Administration PAIN Albuterol/Ipratropium 1 amp 05/28/18 11:38 Duoneb - NEB Q6H PRN SHORTNESS OF BREATH Aspirin 81 mg 05/28/18 11:38 05/31/18 10:20 Asa - PO 81 mg DAILY [facility]JU Administration Atorvastatin Calcium 40 mg 05/28/18 22:00 05/30/18 21:36 Lipitor - PO 40 mg HS MANJU Administration Budesonide/Formoterol Fumarate 2 puff 05/28/18 22:00 05/31/18 10:21 Symbicort 80/4.5mcg - IH 2 puff BID MANJU Administration Cholecalciferol 2,000 unit 05/29/18 10:00 05/31/18 10:19 Vitamin D3 - PO 2,000 unit DAILY [facility] Administration Clopidogrel Bisulfate 75 mg 05/28/18 11:38 05/31/18 10:20 Plavix - PO 75 mg DAILY [facility] Administration Collagenase 1 applic 05/31/18 10:00 05/31/18 10:33 Santyl - TP Not Given DAILY [facility] Protocol Cyclobenzaprine HCl 5 mg 05/28/18 22:00 05/30/18 21:36 Cyclobenzaprine Hcl PO 5 mg HS MANJU Administration Docusate Sodium 100 mg 05/28/18 14:00 05/31/18 14:00 Colace - PO 100 mg TID MANJU Administration Furosemide 100 mg 05/31/18 10:36 05/31/18 14:00 Lasix Injection - IVPB 100 mg BID@0600,1400 [facility] Administration Heparin Sodium (Porcine) 5,000 unit 05/28/18 22:00 05/31/18 10:19 Heparin - SQ 5,000 unit BID MANJU Administration Piperacillin Sod/Tazobactam 50 mls @ 100 mls/hr 05/30/18 18:00 05/31/18 11:22 Sod 2.25 gm/ Dextrose IVPB 100 mls/hr Q8H-IV [facility]JU Administration Protocol Insulin Aspart 1 vial 05/28/18 16:30 05/31/18 14:00 Novolog Vial Sliding Scale - SQ 2 units ACHS [facility] Administration Protocol Lactulose 20 gm 06/01/18 10:00 Cephulac (Oral Use) PO DAILY [facility] Metoprolol Succinate 75 mg 05/31/18 10:37 Toprol Xl - PO BID [facility] Ranitidine HCl 150 mg 05/28/18 22:00 05/30/18 21:37 Zantac - PO 150 mg HS MANJU Administration Impression 1. CKD 2. proteinuria 3. CAD 4. CHF 5. COPD 6. DM 7. HTN 8. azotemia/fior 9. anemia 10. PVD Plan - cont with lasix - volume status improving - restrict fluid intake, discussed with pt - monitor pulse ox - repeat labs in am
[2018-05-31] MEDS ORDERED: PT OWN MED DRAWER 7, Y5N ONE (17:58)
[2018-05-31] MEDS: CYCLOBENZAPRINE HCL 5 MG TABLET PO SCH (22:45)
[2018-05-31] MEDS: ATORVASTATIN CA 40 MG TABLET (FP) PO SCH (22:46)
[2018-05-31] MEDS: RANITIDINE HCL 150 MG TABLET (FP) PO SCH (22:46)
[2018-05-31] MEDS: metoPROLOL SUCCINATE 25 MG TAB.SR.24H (FP) PO SCH (22:46)
[2018-06-01] MEDS ORDERED: PIPERACILLIN/TAZOBACTAM 2.25 GM VIAL IVPB ONE ×3 (02:07→18:27)
[2018-06-01] MEDS ORDERED: DEXTROSE 5%-WATER - 50 ML IVPB ONE ×3 (02:07→18:27)
[2018-06-01] MEDS: PIPERACILLIN/TAZOB 2.25 GM 2.25 GM in DEXTROSE 5%-WATER - 50 ML IVPB SCH ×3 (02:10→18:29)
[2018-06-01] MEDS: INSULIN SLIDING SCALE (NOVOLOG) 1 VIAL SQ SCH ×5 (02:11→23:02)
[2018-06-01] MEDS: FUROSEMIDE 100 MG/10 ML INJECTABLE VIAL IVPB SCH ×2 (06:46→13:50)
[2018-06-01] MEDS: DOCUSATE SODIUM 100 MG CAPSULE (FP) PO SCH ×3 (06:46→23:02)
--- NOTE | 2018-06-01 07:26 | PN ---
Progress Note (short form) - Note Progress Note: VASCULAR SURGERY No change in exam since Dr. Rousseau's last note. Awaiting results of LE Duplex --> possible angio depending upon results Medical optimization/clearance Cardio clearance
--- NOTE | 2018-06-01 07:39 | PN ---
Physical Exam: SUBJECTIVE: Patient seen and examined lying comfortably in bed demands for sleeping pills and oxycodone last night. states swelling in legs is getting better. denies chest pain, sob, palpitations. nausea vomiting OBJECTIVE: Vital Signs Period Temp Pulse Resp BP Sys/El Pulse Ox Last 24 Hr 97.3 F-97.9 F 92-131 18-22 120-166/65-100 96-98 GENERAL: Awake, alert, and fully oriented, in acute distress. HEAD: Normal with no signs of trauma. EYES: Pupils equal, round and reactive to light, EARS, NOSE, THROAT: Moist mucous membranes. NECK: Normal range of motion, supple without lymphadenopathy, JVP distended , or masses. LUNGS: Bb/l air entry present,mild crackels b/l ABDOMEN: Soft, nontender, not distended, normoactive bowel sounds, no guarding, no rebound, no masses. UPPER EXTREMITIES: 2+ pulses, warm, well-perfused. LOWER EXTREMITIES: pitting edema B/l, dry to wet gangrene present on left foot, dusky color present, line of demarcation present, no foul smell PSYCHIATRIC: Cooperative. SKIN: Warm, dry, Laboratory Results - last 24 hr 05/31/18 05/31/18 05/31/18 11:23 16:11 22:23 POC Glucometer 166 225 177 06/01/18 06:17 POC Glucometer 96 Active Medications Generic Name Dose Route Start Last Admin Trade Name Freq PRN Reason Stop Dose Admin Acetaminophen 650 mg 05/29/18 15:41 05/31/18 10:20 Tylenol - PO 650 mg Q4H PRN Administration PAIN Albuterol/Ipratropium 1 amp 05/28/18 11:38 Duoneb - NEB Q6H PRN SHORTNESS OF BREATH Aspirin 81 mg 05/28/18 11:38 05/31/18 10:20 Asa - PO 81 mg DAILY [facility] Administration Atorvastatin Calcium 40 mg 05/28/18 22:00 05/31/18 22:46 Lipitor - PO 40 mg HS MANJU Administration Budesonide/Formoterol Fumarate 2 puff 05/28/18 22:00 05/31/18 22:00 Symbicort 80/4.5mcg - IH 2 puff BID [facility]U Administration Cholecalciferol 2,000 unit 05/29/18 10:00 05/31/18 10:19 Vitamin D3 - PO 2,000 unit DAILY [facility] Administration Clopidogrel Bisulfate 75 mg 05/28/18 11:38 05/31/18 10:20 Plavix - PO 75 mg DAILY [facility] Administration Collagenase 1 applic 05/31/18 10:00 05/31/18 18:01 Santyl - TP 1 applic DAILY [facility] Administration Protocol Cyclobenzaprine HCl 5 mg 05/28/18 22:00 05/31/18 22:45 Cyclobenzaprine Hcl PO 5 mg HS MANJU Administration Docusate Sodium 100 mg 05/28/18 14:00 06/01/18 06:46 Colace - PO 100 mg TID [facility]JU Administration Furosemide 100 mg 05/31/18 10:36 06/01/18 06:46 Lasix Injection - IVPB 100 mg BID@0600,1400 [facility] Administration Heparin Sodium (Porcine) 5,000 unit 05/28/18 22:00 05/31/18 22:45 Heparin - SQ 5,000 unit BID [facility] Administration Piperacillin Sod/Tazobactam 50 mls @ 100 mls/hr 05/30/18 18:00 06/01/18 02:10 Sod 2.25 gm/ Dextrose IVPB 100 mls/hr Q8H-IV [facility]U Administration Protocol Insulin Aspart 1 vial 05/28/18 16:30 06/01/18 06:46 Novolog Vial Sliding Scale - SQ Not Given ACHS [facility] Protocol Lactulose 20 gm 06/01/18 10:00 Cephulac (Oral Use) PO DAILY [facility] Metoprolol Succinate 75 mg 05/31/18 10:37 05/31/18 22:46 Toprol Xl - PO 75 mg BID [facility]U Administration Ranitidine HCl 150 mg 05/28/18 22:00 05/31/18 22:46 Zantac - PO 150 mg HS MANJU Administration ASSESSMENT/PLAN: (1) Acute exacerbation of CHF (congestive heart failure) UO 1100 Monitor vitals monior intake ouput IV lasix 100 mg bid low salt diet keep head end elevated daily weight/ echo done on 03/15/18 reviewed ef 30-35 cariology on case metoprolol xl 75 bid 2) PVD with dry to wet gangrene duplex arterial scan pending vascular surgery on case pt on aspirin and plavix antibiotics as per ID 3 Hyperkalemia resolved 4 Troponemia; likely demand or can be in setting of ckd 5 COPD (chronic obstructive pulmonary disease) chronic, O2 dependent continue nebs symbicort. no wheezing (6) Atrial fib/CAD hr 126 s/p watchman's device 04/2018 metoprolol increased to 75 bid continue asa/plavix x 3 months continue statin cardiac monitoring cardiology following (7) Chronic kidney disease (CKD) likely from cardiorenal syndrome monitor cr avoid nephrtoxic drugs (8) Diabetes hold oral hypoglycemia started on insulin sliding scale bgm monitoring (6) HTN (hypertension) -controlled -continue home regimen (9 ) Low back pain -chronic -PT -analgesics prn - continue cyclobenzaprine (8) Anemia in chronic kidney disease Hb stable Fluid: orally allowed : free water intake< 1L electrolyte: hyponatremia: resolved nutrition: low salt and fat diet dvt pro heparin sq gi pro zantac Visit type - Emergency Visit Emergency Visit: Yes ED Registration Date: 05/28/18 Care time: The patient presented to the Emergency Department on the above date and was hospitalized for further evaluation of their emergent condition. - New Patient This patient is new to me today: No - Critical Care Critical Care patient: No
[2018-06-01 08:03] LABS: BASO % 0.8 % (0-2.0); EOS % 3.9 % (0-4.5); HEMATOCRIT 34.5 % (35.4-49); HEMOGLOBIN 11.5 GM/dL (11.7-16.9); LYMPH % 3.3 % (8-40); MCH 31.1 pg (25.7-33.7); MCHC 33.3 g/dl (32.0-35.9); MEAN CELL VOLUME 93.2 fl (80-96); MEAN PLT VOLUME 8.5 fl (7.5-11.1); MONO % 6.8 % (3.8-10.2); NEUT % 85.2 % (42.8-82.8); PLATELET COUNT 305 K/MM3 (134-434); RDW 20.9 % (11.9-15.9); WHITE BLOOD COUNT 14.3 K/mm3 (4.0-10.0)
[2018-06-01 09:12] LABS: ALK PHOS 117 U/L (45-117); ANION GAP 11 MMOL/L (8-16); BILIRUBIN,TOTAL 1.1 mg/dL (0.2-1); BLOOD UREA NITROGEN 54 mg/dL (7-18); CALCIUM 7.7 mg/dL (8.5-10.1); CHLORIDE 95 mmol/L (98-107); CO2 29 mmol/L (21-32); CREATININE 2.1 mg/dL (0.55-1.3); GLUCOSE,RANDOM 66 mg/dL (74-106); POTASSIUM 3.5 mmol/L (3.5-5.1); SGOT/AST 29 U/L (15-37); SGPT/ALT 12 U/L (13-61); SODIUM 135 mmol/L (136-145); TOT PROT 5.4 g/dl (6.4-8.2)
--- NOTE | 2018-06-01 09:43 | PN ---
Progress Note (short form) - Note Progress Note: s: no chest pain, palps, dyspnea. Current Medications Acetaminophen (Tylenol -) 650 mg PO Q4H PRN PRN Reason: PAIN Last Admin: 05/31/18 10:20 Dose: 650 mg Albuterol/Ipratropium (Duoneb -) 1 amp NEB Q6H PRN PRN Reason: SHORTNESS OF BREATH Aspirin (Asa -) 81 mg PO DAILY [facility] Last Admin: 05/31/18 10:20 Dose: 81 mg Atorvastatin Calcium (Lipitor -) 40 mg PO HS [facility] Last Admin: 05/31/18 22:46 Dose: 40 mg Budesonide/Formoterol Fumarate (Symbicort 80/4.5mcg -) 2 puff IH BID [facility] Last Admin: 05/31/18 22:00 Dose: 2 puff Cholecalciferol (Vitamin D3 -) 2,000 unit PO DAILY [facility] Last Admin: 05/31/18 10:19 Dose: 2,000 unit Clopidogrel Bisulfate (Plavix -) 75 mg PO DAILY [facility] Last Admin: 05/31/18 10:20 Dose: 75 mg Collagenase (Santyl -) 1 applic TP DAILY [facility]; Protocol Last Admin: 05/31/18 18:01 Dose: 1 applic Cyclobenzaprine HCl (Cyclobenzaprine Hcl) 5 mg PO HS [facility] Last Admin: 05/31/18 22:45 Dose: 5 mg Docusate Sodium (Colace -) 100 mg PO TID [facility] Last Admin: 06/01/18 06:46 Dose: 100 mg Furosemide (Lasix Injection -) 100 mg IVPB BID@0600,1400 [facility] Last Admin: 06/01/18 06:46 Dose: 100 mg Heparin Sodium (Porcine) (Heparin -) 5,000 unit SQ BID [facility] Last Admin: 05/31/18 22:45 Dose: 5,000 unit Piperacillin Sod/Tazobactam (Sod 2.25 gm/ Dextrose) 50 mls @ 100 mls/hr IVPB Q8H-IV [facility]; Protocol Last Admin: 06/01/18 02:10 Dose: 100 mls/hr Insulin Aspart (Novolog Vial Sliding Scale -) 1 vial SQ ACHS [facility]; Protocol Last Admin: 06/01/18 06:46 Dose: Not Given Lactulose (Cephulac (Oral Use)) 20 gm PO DAILY [facility] Metoprolol Succinate (Toprol Xl -) 75 mg PO BID [facility] Last Admin: 05/31/18 22:46 Dose: 75 mg Ranitidine HCl (Zantac -) 150 mg PO HS [facility] Last Admin: 05/31/18 22:46 Dose: 150 mg - Objective Vital Signs Period Temp Pulse Resp BP Sys/El Pulse Ox Last 24 Hr 97.3 F-97.9 F 92-131 18-22 120-166/65-100 96-98 Constitutional: Yes: No Distress, Calm Eyes: No: Sclera Icterus HENT: No: Nasal Congestion Cardiovascular: Yes: Regular Rate and Rhythm, JVD (to jaw), S1, S2, Other (PMI non diplaced). No: Gallop, Murmur Respiratory: Yes: CTA Bilaterally, Diminished (L base). No: Accessory Muscle Use, Rales, Wheezes Gastrointestinal: Yes: Normal Bowel Sounds, Soft. No: Tenderness Musculoskeletal: Yes: Other (No kyphosis) Extremities: No: Cold Edema: Yes (L foot) Integumentary: No: Jaundice Neurological: Yes: Alert, Oriented (x3) Psychiatric: No: Agitated Assessment/Plan ECG: AFL, V-P, PVCs, LVH, no sig change prior CXR: chf. infiltrate vs fluid L base CT head: L thalamic infarct, unchanged from prior echo 06/2016: sev dec lvef, global hk, rv tds, trinity, mod-sev mr, mod tr, rvsp 50- 60 echo 06/2015: mild lve, mod-sev dec lvef, mod lae, nl rv size, mild dec rv fcn, mild-mod mr, mild tr, nl avr fcn, rvsp 30-40 04/14/18 ECHO MSH - moderate left ventricular dilatation overall severe decreased left ventricular systolic function (diffuse); estimated ejection fraction = 30 % The posterior wall is severely hypokinetic. Restrictive diastolic dysfunction normal right ventricular size moderate decreased right ventricular function aortic prosthesis (tissue) no evidence for aortic regurgitation moderate to severe mitral regurgitation mild to moderate tricuspid regurgitation moderate to severe pulmonary hypertension minimal pulmonic regurgitation no evidence for pericardial effusion technically difficult study Definity precision microbubble contrast used to enhance endocardial border definition mibi 06/2016 (pers): non-diagnostic STs; large area inferior/inferolateral/ lateral scar; no ischemia; severe LV cavity dilation; global HK with akinesis of inferior/inferolat/lateral allan; EF 16% mibi 09/2014: large inf scar, mod anteroapical ischemia, lvef 25% tele: AFL HRs frequently 130s (to 90s). 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 multiple episodes NSVT a/p: 62 m hx copd, cabgx3 2012, bio avr 2012, pad s/p b/l sfa occlusions, syst chf s/p medtronic icd, htn, hld, a-tach, here with back pain, sob. acute on chronic systolic CHF exacerbation: -recent dc for chf, was doing well but then stopped taking his lasix and other meds for several days and now back with acute chf (second recent admit for med noncompliance) -goal dry wt around 180lbs, on admission 197lbs -was on lasix 80 po daily at home. -05/28- on 80 iv lasix bid with dec Cr, weight down - 05/30 weight charted stable at 193 lbs, however patient says he was not weighed today, renal function improving, edema better - continue same lasix 80 mg IV BID - 05/31 wt unchanged at 193, above dry wt. poor diuretic response to lasix 80 iv per patient. he is well-compensated with JVD but no peripheral edema, no sob at rest, + L effusion on cxr. increase lasix to 100 iv bid, will give one time test dose metolazone 2.5 today. improved AF rate control, as disc 'd - 06/01: wt stable with increased lasix dose to 100 mg IV BID and one time metolazone. will give metolazone 5 mg x 1 prior to PM dose -cont metoprolol. not on ACEI due to h/o hyperkalemia mitral regurgitation: -likely functional MR, mild-mod on echo 06/19, then "mod-severe" when here 06/20 with suspected acute chf and pulm pressures up (though at risk for overestimation of MR severity on that echo report), mod to severe on echo at [facility] 04/2018 -reassess MR severity on echo as outpt--pt would be a candidate for transcatheter delmar-clip repair (per COAPT study data) if severe MR persists despite optimization of volume status and LV remodeling med regimen +/- STATOR WINDER L foot gangrene, h/o PAD, CV preop eval: -for angiogram, per vascular surgery -Revised CV Risk Index = 4, decreased functional capacity -no angina sx's, no signs ACS here -likely mildly decompensated CHF--diuresing -once his volume status appears optimized, pt will be considered acceptable to proceed with planned angiogram of LE -wound care, abx per podiatry/vascular CKD: -baseline creatinine 2-2.5; -renal fxn stable here atrial flutter: -pt in persistent AFL. HR control suboptimal. -05/31: incr metopr succ 50 bid to 75 mg BID -06/01 still having high rates, inc metoprolol to 100 mg BID -CHADS VASC 5. prohibitive falls risk, transferred to [place] recently for evaluation--randomized in Watchman trial -s/p watchman device 04/20--discharged on aspirin and plavix for 3 months protocol. continue same NSVT - longest 24 beats, s/p ICD - increase metoprolol as above - replete lytes for K >4.0, Mg, >2.0 cad/hx of CABG 2012 -no recent angina/ischemia -no signs acs -trop chronically in intermediate range, no significant change in current value , trend for now -cont prior cad med regimen: asa, statin, bb, ccb bio avr: -nl fcn on echo 04/2018 CVA: -age indeterminate L thalamic stroke on CT here 03/2019 -now s/p Watchman device 04/2018, cont aspirin and plavix s/p icd: -no shocks -routine outpt monitoring htn: -bp stable -cont home meds
[2018-06-01] MEDS ORDERED: PT OWN MED DRAWER 7, Y5N ONE (09:45)
[2018-06-01] MEDS: ASPIRIN 81 MG CHEWABLE TABLETS PO SCH (09:53)
[2018-06-01] MEDS: LACTULOSE 20 GM/30 ML UDC (FOR ORAL USE ONLY) PO SCH (09:53)
[2018-06-01] MEDS: ACETAMINOPHEN 325 MG TABLET (FP) PO PRN ×3 (09:53→23:01)
[2018-06-01] MEDS: metoPROLOL SUCCINATE 25 MG TAB.SR.24H (FP) PO SCH (09:53)
[2018-06-01] MEDS: CHOLECALCIFEROL (VITAMIN D3) 1,000 UNIT TABLET (FP) PO SCH (09:53)
[2018-06-01] MEDS: CLOPIDOGREL BISULFATE 75 MG TABLET (FP) PO SCH (09:53)
[2018-06-01] MEDS: HEPARIN NA (PORCINE) 5,000 UNITS/ML 1ML VIAL SQ SCH ×2 (09:54→23:02)
[2018-06-01] MEDS: COLLAGENASE CLOSTRIDIUM HIST. 30 GRAMS TUBE TP SCH (09:54)
[2018-06-01] MEDS: BUDESONIDE/FORMETEROL FUMARATE 80/4.5 mcg INHALER IH SCH ×2 (09:55→23:02)
[2018-06-01 11:11] LABS: ANISOCYTOSIS 1+; MACROCYTOSIS 1+; OVALOCYTE 1+; PLATELET ESTIMATE NORMAL; TEAR DROP CELLS 1+
--- NOTE | 2018-06-01 12:23 | PN ---
Progress Note (short form) - Note Progress Note: Podiatry F/U: Seen/evaluated at bedside NAD. Pain mild to left foot, denies F/V/N/C. Afebrile. Awaiting vascular studies. Vascular Sx on board. LORE: L foot: pedal pulses nonpalpable, TG warm-cool, CFT delayed to toes. There are dry gangrenous changes to distal tips of toes 1-5, ischemic blistering dorsal midfoot and 5th MTPJ, no purulence, no fluctuance, no soft tissue crepitus, no streaking cellulitis, no signs of active infection. Imp: 62 year old diabetic, PVD M with left foot gangrene 1. Abx per ID 2. Vascular studies pending 3. Cardiology, vascular input appreciated 4. On standby for now as vascular w/u in progress Aliza Alvarez DPM
[2018-06-01] MEDS ORDERED: POTASSIUM CHLORIDE TABS 20 MEQ TABLET.ER (FP) PO ONE (12:42)
--- NOTE | 2018-06-01 12:42 | PN ---
Progress Note, Physician History of Present Illness: Pt seen and examined at bedside. He is awake and alert. He complains of lower ext edema. - Current Medication List Current Medications: Active Medications Acetaminophen (Tylenol -) 650 mg PO Q4H PRN PRN Reason: PAIN Last Admin: 06/01/18 09:53 Dose: 650 mg Albuterol/Ipratropium (Duoneb -) 1 amp NEB Q6H PRN PRN Reason: SHORTNESS OF BREATH Aspirin (Asa -) 81 mg PO DAILY [facility] Last Admin: 06/01/18 09:53 Dose: 81 mg Atorvastatin Calcium (Lipitor -) 40 mg PO HS [facility] Last Admin: 05/31/18 22:46 Dose: 40 mg Budesonide/Formoterol Fumarate (Symbicort 80/4.5mcg -) 2 puff IH BID [facility] Last Admin: 06/01/18 09:55 Dose: 2 puff Cholecalciferol (Vitamin D3 -) 2,000 unit PO DAILY [facility] Last Admin: 06/01/18 09:53 Dose: 2,000 unit Clopidogrel Bisulfate (Plavix -) 75 mg PO DAILY [facility] Last Admin: 06/01/18 09:53 Dose: 75 mg Collagenase (Santyl -) 1 applic TP DAILY [facility]; Protocol Last Admin: 06/01/18 09:54 Dose: 1 applic Cyclobenzaprine HCl (Cyclobenzaprine Hcl) 5 mg PO HS [facility] Last Admin: 05/31/18 22:45 Dose: 5 mg Docusate Sodium (Colace -) 100 mg PO TID [facility] Last Admin: 06/01/18 06:46 Dose: 100 mg Furosemide (Lasix Injection -) 100 mg IVPB BID@0600,1400 [facility] Last Admin: 06/01/18 06:46 Dose: 100 mg Heparin Sodium (Porcine) (Heparin -) 5,000 unit SQ BID [facility] Last Admin: 06/01/18 09:54 Dose: 5,000 unit Piperacillin Sod/Tazobactam (Sod 2.25 gm/ Dextrose) 50 mls @ 100 mls/hr IVPB Q8H-IV [facility]; Protocol Last Admin: 06/01/18 09:53 Dose: 100 mls/hr Insulin Aspart (Novolog Vial Sliding Scale -) 1 vial SQ ACHS [facility]; Protocol Last Admin: 06/01/18 06:46 Dose: Not Given Lactulose (Cephulac (Oral Use)) 20 gm PO DAILY [facility] Last Admin: 06/01/18 09:53 Dose: 20 gm Metolazone (Zaroxolyn -) 5 mg PO ONCE ONE Stop: 06/01/18 13:31 Metoprolol Succinate (Toprol Xl -) 100 mg PO BID [facility] Ranitidine HCl (Zantac -) 150 mg PO HS [facility] Last Admin: 05/31/18 22:46 Dose: 150 mg - Objective Vital Signs: Vital Signs Temperature 97.3 F L 06/01/18 01:00 Pulse Rate 92 H 06/01/18 05:00 Respiratory Rate 20 06/01/18 08:29 Blood Pressure 139/65 06/01/18 05:00 O2 Sat by Pulse Oximetry (%) 98 06/01/18 08:29 Constitutional: Yes: Calm Eyes: Yes: Conjunctiva Clear HENT: Yes: Atraumatic Neck: Yes: Supple Cardiovascular: Yes: S1, S2 Respiratory: Yes: On Nasal O2, Rhonchi Gastrointestinal: Yes: Soft Genitourinary: Yes: WNL Edema: Yes Edema: LLE: 2+, RLE: 2+ Neurological: Yes: Oriented Psychiatric: Yes: Oriented Labs: CBC, BMP 06/01/18 05:30 06/01/18 05:30 INR, PTT INR 1.58 (0.83-1.09) H 05/28/18 02:29 Assessment/Plan Current Medications Generic Name Dose Route Start Last Admin Trade Name Freq PRN Reason Stop Dose Admin Acetaminophen 650 mg 05/29/18 15:41 06/01/18 09:53 Tylenol - PO 650 mg Q4H PRN Administration PAIN Albuterol/Ipratropium 1 amp 05/28/18 11:38 Duoneb - NEB Q6H PRN SHORTNESS OF BREATH Aspirin 81 mg 05/28/18 11:38 06/01/18 09:53 Asa - PO 81 mg DAILY [facility] Administration Atorvastatin Calcium 40 mg 05/28/18 22:00 05/31/18 22:46 Lipitor - PO 40 mg HS [facility] Administration Budesonide/Formoterol Fumarate 2 puff 05/28/18 22:00 06/01/18 09:55 Symbicort 80/4.5mcg - IH 2 puff BID [facility] Administration Cholecalciferol 2,000 unit 05/29/18 10:00 06/01/18 09:53 Vitamin D3 - PO 2,000 unit DAILY [facility] Administration Clopidogrel Bisulfate 75 mg 05/28/18 11:38 06/01/18 09:53 Plavix - PO 75 mg DAILY [facility] Administration Collagenase 1 applic 05/31/18 10:00 06/01/18 09:54 Santyl - TP 1 applic DAILY [facility] Administration Protocol Cyclobenzaprine HCl 5 mg 05/28/18 22:00 05/31/18 22:45 Cyclobenzaprine Hcl PO 5 mg HS [facility] Administration Docusate Sodium 100 mg 05/28/18 14:00 06/01/18 06:46 Colace - PO 100 mg TID [facility] Administration Furosemide 100 mg 05/31/18 10:36 06/01/18 06:46 Lasix Injection - IVPB 100 mg BID@0600,1400 [facility] Administration Heparin Sodium (Porcine) 5,000 unit 05/28/18 22:00 06/01/18 09:54 Heparin - SQ 5,000 unit BID [facility] Administration Piperacillin Sod/Tazobactam 50 mls @ 100 mls/hr 05/30/18 18:00 06/01/18 09:53 Sod 2.25 gm/ Dextrose IVPB 100 mls/hr Q8H-IV [facility] Administration Protocol Insulin Aspart 1 vial 05/28/18 16:30 06/01/18 06:46 Novolog Vial Sliding Scale - SQ Not Given ACHS [facility] Protocol Lactulose 20 gm 06/01/18 10:00 06/01/18 09:53 Cephulac (Oral Use) PO 20 gm DAILY [facility] Administration Metolazone 5 mg 06/01/18 13:30 Zaroxolyn - PO 06/01/18 13:31 ONCE ONE Metoprolol Succinate 100 mg 06/01/18 10:42 Toprol Xl - PO BID [facility] Ranitidine HCl 150 mg 05/28/18 22:00 05/31/18 22:46 Zantac - PO 150 mg HS [facility] Administration Impression 1. CKD 2. proteinuria 3. CAD 4. CHF 5. COPD 6. DM 7. HTN 8. azotemia/fior 9. anemia 10. PVD Plan - cont lasix - increase dose of metolazone - discussed with cardio - wound care to left leg - restrict fluid intake, discussed with pt - monitor pulse ox - repeat labs in am - will also give 20 meq of kcl - will evaluate for spironolactone tomorrow
[2018-06-01] MEDS ORDERED: METOLAZONE 5 MG TABLET PO ONE (13:30)
--- NOTE | 2018-06-01 13:49 | PN ---
Teaching Attending Note Name of Resident: Rafael Lieberman ATTENDING PHYSICIAN STATEMENT I saw and evaluated the patient. I reviewed the resident's note and discussed the case with the resident. I agree with the resident's findings and plan as documented. SUBJECTIVE: Mr Owen saying he hopes he goes home soon. Denies cp, sob, n/v. OBJECTIVE: Last Vital Signs Temp Pulse Resp BP Pulse Ox 36.3 C L 92 H 20 139/65 98 06/01/18 01:00 06/01/18 05:00 06/01/18 08:29 06/01/18 05:00 06/01/18 08:29 Gen: nad Pulm: ctab w/o w/r/r CV: irreg irreg, slightly tachycardic, no m/r/g Abd: +bs,s/nt/nd Ext: ulceration and gangrene of left foot with duskiness and demarcation CBC, BMP 06/01/18 05:30 06/01/18 05:30 ASSESSMENT AND PLAN: -case d/w Dr Belcher -will discuss case with cardiology as well to coordinate angiogram -arterial doppler pending, will call and see when will be done -continue zosyn -continue aggressive diuresis with lasix 100mg IV bid -continue current management Problem List - Problems (1) Acute exacerbation of CHF (congestive heart failure) Code(s): I50.9 - HEART FAILURE, UNSPECIFIED Qualifiers: Heart failure type: unspecified Qualified Code(s): I50.9 - Heart failure, unspecified (2) Afib Code(s): I48.91 - UNSPECIFIED ATRIAL FIBRILLATION Qualifiers: Atrial fibrillation type: chronic Qualified Code(s): I48.2 - Chronic atrial fibrillation (3) Carotid stenosis Code(s): I65.29 - OCCLUSION AND STENOSIS OF UNSPECIFIED CAROTID ARTERY (4) Chronic respiratory failure Code(s): J96.10 - CHRONIC RESPIRATORY FAILURE, UNSP W HYPOXIA OR HYPERCAPNIA (5) Hyperkalemia Code(s): E87.5 - HYPERKALEMIA (6) Troponin I above reference range Code(s): R74.8 - ABNORMAL LEVELS OF OTHER SERUM ENZYMES (7) Acute on chronic renal insufficiency Code(s): N28.9 - DISORDER OF KIDNEY AND URETER, UNSPECIFIED; N18.9 - CHRONIC KIDNEY DISEASE, UNSPECIFIED (8) Diabetes Code(s): E11.9 - TYPE 2 DIABETES MELLITUS WITHOUT COMPLICATIONS Qualifiers: Diabetes mellitus type: type 2 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
--- NOTE | 2018-06-01 13:53 | PN ---
Progress Note, Physician History of Present Illness: no specific changes still with some sob awaiting final decision - Current Medication List Current Medications: Active Medications Acetaminophen (Tylenol -) 650 mg PO Q4H PRN PRN Reason: PAIN Last Admin: 06/01/18 09:53 Dose: 650 mg Albuterol/Ipratropium (Duoneb -) 1 amp NEB Q6H PRN PRN Reason: SHORTNESS OF BREATH Aspirin (Asa -) 81 mg PO DAILY [facility] Last Admin: 06/01/18 09:53 Dose: 81 mg Atorvastatin Calcium (Lipitor -) 40 mg PO HS [facility] Last Admin: 05/31/18 22:46 Dose: 40 mg Budesonide/Formoterol Fumarate (Symbicort 80/4.5mcg -) 2 puff IH BID [facility] Last Admin: 06/01/18 09:55 Dose: 2 puff Cholecalciferol (Vitamin D3 -) 2,000 unit PO DAILY [facility] Last Admin: 06/01/18 09:53 Dose: 2,000 unit Clopidogrel Bisulfate (Plavix -) 75 mg PO DAILY [facility] Last Admin: 06/01/18 09:53 Dose: 75 mg Collagenase (Santyl -) 1 applic TP DAILY [facility]; Protocol Last Admin: 06/01/18 09:54 Dose: 1 applic Cyclobenzaprine HCl (Cyclobenzaprine Hcl) 5 mg PO HS [facility] Last Admin: 05/31/18 22:45 Dose: 5 mg Docusate Sodium (Colace -) 100 mg PO TID [facility] Last Admin: 06/01/18 13:50 Dose: 100 mg Furosemide (Lasix Injection -) 100 mg IVPB BID@0600,1400 [facility] Last Admin: 06/01/18 13:50 Dose: 100 mg Heparin Sodium (Porcine) (Heparin -) 5,000 unit SQ BID [facility] Last Admin: 06/01/18 09:54 Dose: 5,000 unit Piperacillin Sod/Tazobactam (Sod 2.25 gm/ Dextrose) 50 mls @ 100 mls/hr IVPB Q8H-IV [facility]; Protocol Last Admin: 06/01/18 09:53 Dose: 100 mls/hr Insulin Aspart (Novolog Vial Sliding Scale -) 1 vial SQ ACHS [facility]; Protocol Last Admin: 06/01/18 12:51 Dose: Not Given Lactulose (Cephulac (Oral Use)) 20 gm PO DAILY [facility] Last Admin: 06/01/18 09:53 Dose: 20 gm Metoprolol Succinate (Toprol Xl -) 100 mg PO BID [facility] Ranitidine HCl (Zantac -) 150 mg PO HS [facility] Last Admin: 05/31/18 22:46 Dose: 150 mg - Objective Vital Signs: Vital Signs Temperature 97.3 F L 06/01/18 01:00 Pulse Rate 92 H 06/01/18 05:00 Respiratory Rate 20 06/01/18 08:29 Blood Pressure 139/65 06/01/18 05:00 O2 Sat by Pulse Oximetry (%) 98 06/01/18 08:29 Constitutional: Yes: Calm, Mild Distress Cardiovascular: Yes: S1, S2 Respiratory: Yes: On Nasal O2, Poor Air Entry Gastrointestinal: Yes: Normal Bowel Sounds, Soft Musculoskeletal: Yes: WNL Extremities: Yes: Other Neurological: Yes: Alert, Oriented Psychiatric: Yes: Alert, Oriented Labs: CBC, BMP 06/01/18 05:30 06/01/18 05:30 INR, PTT INR 1.58 (0.83-1.09) H 05/28/18 02:29 Assessment/Plan Problem List - Problems (1) Acute exacerbation of CHF (congestive heart failure) Code(s): I50.9 - HEART FAILURE, UNSPECIFIED Qualifiers: Heart failure type: unspecified Qualified Code(s): I50.9 - Heart failure, unspecified (2) Afib Code(s): I48.91 - UNSPECIFIED ATRIAL FIBRILLATION Qualifiers: Atrial fibrillation type: chronic Qualified Code(s): I48.2 - Chronic atrial fibrillation (3) Carotid stenosis Code(s): I65.29 - OCCLUSION AND STENOSIS OF UNSPECIFIED CAROTID ARTERY (4) Chronic respiratory failure Code(s): J96.10 - CHRONIC RESPIRATORY FAILURE, UNSP W HYPOXIA OR HYPERCAPNIA (5) Hyperkalemia Code(s): E87.5 - HYPERKALEMIA (6) Troponin I above reference range Code(s): R74.8 - ABNORMAL LEVELS OF OTHER SERUM ENZYMES (7) Acute on chronic renal insufficiency Code(s): N28.9 - DISORDER OF KIDNEY AND URETER, UNSPECIFIED; N18.9 - CHRONIC KIDNEY DISEASE, UNSPECIFIED (8) Diabetes Code(s): E11.9 - TYPE 2 DIABETES MELLITUS WITHOUT COMPLICATIONS Qualifiers: Diabetes mellitus type: type 2 Diabetes 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 insulin use: with usp use Diabetes mellitus complication status: with kidney complications Diabetes mellitus complication detail: with chronic kidney disease Chronic kidney disease stage: stage 3 (moderate) Qualified Code(s): E11.22 - Type 2 diabetes mellitus with diabetic chronic kidney disease; N18.3 - Chronic kidney disease, stage 3 (moderate); Z79.4 - ocean transportation intermediary (current) use of 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 plan podiatry on case fnal plan awaited might change abx rest as per the team
[2018-06-01] MEDS: ATORVASTATIN CA 40 MG TABLET (FP) PO SCH (23:01)
[2018-06-01] MEDS: RANITIDINE HCL 150 MG TABLET (FP) PO SCH (23:01)
[2018-06-01] MEDS: CYCLOBENZAPRINE HCL 5 MG TABLET PO SCH (23:02)
[2018-06-02] MEDS: PIPERACILLIN/TAZOB 2.25 GM 2.25 GM in DEXTROSE 5%-WATER - 50 ML IVPB SCH ×2 (03:00→10:03)
[2018-06-02] MEDS ORDERED: DEXTROSE 5%-WATER - 50 ML IVPB ONE ×2 (03:08→09:58)
[2018-06-02] MEDS ORDERED: PIPERACILLIN/TAZOBACTAM 2.25 GM VIAL IVPB ONE ×2 (03:08→09:57)
[2018-06-02] MEDS: ALBUTEROL SO4 2.5/IPRATROPIUM 0.5 INH SOL 3 ML VIAL.NEB. NEB PRN (06:28)
[2018-06-02 06:48] LABS: BASO % 0.9 % (0-2.0); EOS % 4.2 % (0-4.5); HEMATOCRIT 37.1 % (35.4-49); HEMOGLOBIN 12.3 GM/dL (11.7-16.9); LYMPH % 6.1 % (8-40); MCH 30.9 pg (25.7-33.7); MCHC 33.2 g/dl (32.0-35.9); MEAN CELL VOLUME 93.1 fl (80-96); MEAN PLT VOLUME 8.7 fl (7.5-11.1); MONO % 9.4 % (3.8-10.2); NEUT % 79.4 % (42.8-82.8); PLATELET COUNT 319 K/MM3 (134-434); RBC 3.98 M/mm3 (4.00-5.60); RDW 20.9 % (11.9-15.9); WHITE BLOOD COUNT 14.1 K/mm3 (4.0-10.0)
[2018-06-02 06:56] LABS: ANION GAP 11 MMOL/L (8-16); BLOOD UREA NITROGEN 59 mg/dL (7-18); CALCIUM 7.9 mg/dL (8.5-10.1); CHLORIDE 95 mmol/L (98-107); CO2 30 mmol/L (21-32); CREATININE 2.4 mg/dL (0.55-1.3); GLUCOSE,RANDOM 70 mg/dL (74-106); PHOSPHOROUS 3.7 mg/dL (2.5-4.9); POTASSIUM 3.7 mmol/L (3.5-5.1); SODIUM 136 mmol/L (136-145)
[2018-06-02] MEDS: FUROSEMIDE 100 MG/10 ML INJECTABLE VIAL IVPB SCH ×2 (07:02→15:38)
[2018-06-02] MEDS: DOCUSATE SODIUM 100 MG CAPSULE (FP) PO SCH ×3 (07:02→21:12)
[2018-06-02] MEDS: INSULIN SLIDING SCALE (NOVOLOG) 1 VIAL SQ SCH ×4 (07:19→21:13)
--- NOTE | 2018-06-02 08:16 | PN ---
Teaching Attending Note Name of Resident: Rafael Lieberman ATTENDING PHYSICIAN STATEMENT I saw and evaluated the patient. I reviewed the resident's note and discussed the case with the resident. I agree with the resident's findings and plan as documented. SUBJECTIVE: Still c/o SOB OBJECTIVE: Vital Signs Temperature 98.7 F 06/02/18 10:00 Pulse Rate 127 H 06/02/18 10:00 Respiratory Rate 22 H 06/02/18 10:00 Blood Pressure 116/77 06/02/18 10:00 O2 Sat by Pulse Oximetry (%) 98 06/02/18 09:00 Middle aged man c/o SOB HEENT: Mm moist, no anemia, PERRLA EOMI NECK:No JVd No Bruit CHEST:CTA B/L CVS:S1S2 IR no SM/g/r ABD:No distention, non tender Bs EXT:Left LE dry to wet gangerene on toes HR SPECIALIST: AOX3 non focal LABS: Lab Results WBC 14.1 K/mm3 (4.0-10.0) H 06/02/18 05:30 RBC 3.98 M/mm3 (4.00-5.60) L 06/02/18 05:30 Hgb 12.3 GM/dL (11.7-16.9) 06/02/18 05:30 Hct 37.1 % (35.4-49) 06/02/18 05:30 MCV 93.1 fl (80-96) 06/02/18 05:30 MCHC 33.2 g/dl (32.0-35.9) 06/02/18 05:30 RDW 20.9 % (11.9-15.9) H 06/02/18 05:30 Plt Count 319 K/MM3 (134-434) 06/02/18 05:30 Sodium 136 mmol/L (136-145) 06/02/18 05:30 Potassium 3.7 mmol/L (3.5-5.1) 06/02/18 05:30 Chloride 95 mmol/L (98-107) L 06/02/18 05:30 Carbon Dioxide 30 mmol/L (21-32) 06/02/18 05:30 Anion Gap 11 MMOL/L (8-16) 06/02/18 05:30 BUN 59 mg/dL (7-18) H 06/02/18 05:30 Creatinine 2.4 mg/dL (0.55-1.3) H 06/02/18 05:30 Random Glucose 70 mg/dL (74-106) L 06/02/18 05:30 Calcium 7.9 mg/dL (8.5-10.1) L 06/02/18 05:30 INR 1.58 (0.83-1.09) H 05/28/18 02:29 Active Medications Acetaminophen (Tylenol -) 650 mg PO Q4H PRN PRN Reason: PAIN Last Admin: 06/01/18 23:01 Dose: 650 mg Albuterol/Ipratropium (Duoneb -) 1 amp NEB Q6H PRN PRN Reason: SHORTNESS OF BREATH Last Admin: 06/02/18 06:28 Dose: 1 amp Aspirin (Asa -) 81 mg PO DAILY [facility] Last Admin: 06/01/18 09:53 Dose: 81 mg Atorvastatin Calcium (Lipitor -) 40 mg PO HS [facility] Last Admin: 06/01/18 23:01 Dose: 40 mg Budesonide/Formoterol Fumarate (Symbicort 80/4.5mcg -) 2 puff IH BID [facility] Last Admin: 06/01/18 23:02 Dose: 2 puff Cholecalciferol (Vitamin D3 -) 2,000 unit PO DAILY [facility] Last Admin: 06/01/18 09:53 Dose: 2,000 unit Clopidogrel Bisulfate (Plavix -) 75 mg PO DAILY [facility] Last Admin: 06/01/18 09:53 Dose: 75 mg Collagenase (Santyl -) 1 applic TP DAILY [facility]; Protocol Last Admin: 06/01/18 09:54 Dose: 1 applic Cyclobenzaprine HCl (Cyclobenzaprine Hcl) 5 mg PO HS [facility] Last Admin: 06/01/18 23:02 Dose: 5 mg Docusate Sodium (Colace -) 100 mg PO TID [facility] Last Admin: 06/02/18 07:02 Dose: 100 mg Furosemide (Lasix Injection -) 100 mg IVPB BID@0600,1400 [facility] Last Admin: 06/02/18 07:02 Dose: 100 mg Heparin Sodium (Porcine) (Heparin -) 5,000 unit SQ BID [facility] Last Admin: 06/01/18 23:02 Dose: 5,000 unit Piperacillin Sod/Tazobactam (Sod 2.25 gm/ Dextrose) 50 mls @ 100 mls/hr IVPB Q8H-IV [facility]; Protocol Last Admin: 06/02/18 03:00 Dose: 100 mls/hr Insulin Aspart (Novolog Vial Sliding Scale -) 1 vial SQ ACHS [facility]; Protocol Last Admin: 06/02/18 07:19 Dose: Not Given Lactulose (Cephulac (Oral Use)) 20 gm PO DAILY [facility] Last Admin: 06/01/18 09:53 Dose: 20 gm Metoprolol Succinate (Toprol Xl -) 100 mg PO BID [facility] Last Admin: 06/01/18 23:01 Dose: 100 mg Ranitidine HCl (Zantac -) 150 mg PO HS [facility] Last Admin: 06/01/18 23:01 Dose: 150 mg ASSESSMENT AND PLAN: 62 yrs old F multiple medical Co-morbidities H/O CHF, HTN , T2DM, CKD stage 3, PAD, Afib watchman Devise in 2018 at [facility] , AICD for NSVT, Bioprosthetic AVR, MR tran historian present with decompensated CHF with worsening LE swelling and SOB, patient has Left LE gangrene waiting arterial Doppler. Problem List - Problems (1) Acute exacerbation of CHF (congestive heart failure) Assessment/Plan: DSue to non compliance with diuretic dry weight 180 on IV Lasix, B Blockers for rate controlled cardiology and Nephrology, low salt Diet F/U IN/Op and BMP Code(s): I50.9 - HEART FAILURE, UNSPECIFIED Qualifiers: Heart failure type: unspecified Qualified Code(s): I50.9 - Heart failure, unspecified (2) Chronic kidney disease (CKD) Assessment/Plan: Due to diabetic neuropathy renal functions are at abse line F/U BMP and renal recommondations. Code(s): N18.9 - CHRONIC KIDNEY DISEASE, UNSPECIFIED Qualifiers: Chronic kidney disease stage: stage 4 (severe) Qualified Code(s): N18.4 - Chronic kidney disease, stage 4 (severe) (3) Afib Assessment/Plan: Poorly rate controlled incresed B Blockers to optimize HR s/o Watchman Device on ASA and Plavix. Code(s): I48.91 - UNSPECIFIED ATRIAL FIBRILLATION Qualifiers: Atrial fibrillation type: chronic Qualified Code(s): I48.2 - Chronic atrial fibrillation (4) COPD (chronic obstructive pulmonary disease) Assessment/Plan: Cont advair and Duoneb PRN Code(s): J44.9 - CHRONIC OBSTRUCTIVE PULMONARY DISEASE, UNSPECIFIED Qualifiers: COPD type: COPD with acute exacerbation Qualified Code(s): J44.1 - Chronic obstructive pulmonary disease with (acute) exacerbation (5) Diabetes mellitus with chronic kidney disease Assessment/Plan: On Insulin optimize glycemic control Code(s): E11.22 - TYPE 2 DIABETES MELLITUS W DIABETIC CHRONIC KIDNEY DISEASE; N18.9 - CHRONIC KIDNEY DISEASE, UNSPECIFIED Qualifiers: Diabetes mellitus type: type 2 Chronic kidney disease stage: stage 3 ( moderate) (6) Gangrene Assessment/Plan: Left foot toes wet/dry evaluated by Vascular on IV abx F/U LE arterial Doippler. Code(s): I96 - GANGRENE, NOT ELSEWHERE CLASSIFIED
--- NOTE | 2018-06-02 08:45 | PN ---
Progress Note (short form) - Note Progress Note: surgery Patient being followed for Dry gangrene of left toes. Patient states he feels more short of breath today. He is tolerating his diet and denies any CP,Fever, Chills, Nausea or vomiting. Vital Signs Temp 97.3 F L 06/02/18 01:50 Pulse 92 H 06/02/18 06:00 Resp 22 H 06/02/18 06:00 BP 129/82 06/02/18 06:00 Pulse Ox 98 06/01/18 21:00 Intake & Output 06/01/18 06/01/18 06/02/18 11:59 23:59 11:59 Intake Total 200 620 Output Total 1000 500 300 Balance -800 120 -300 Weight 193 lb 3.2 oz 192 lb 8 oz Intake: IV 40 NS 40 IVPB 200 100 Oral 480 Output: Urine 1000 500 300 Void 1000 500 300 Other: Voiding Method Urinal Urinal Weight Measurement Method Standing Scale Standing Scale CBC, BMP 06/02/18 05:30 06/02/18 05:30 PE: A&Ox3, NAD unlabored resp on 2L NC Left LE, No significant changed since last surgery note. Dry gangrene of Toes 2- 5 with early changes of left 1st toe. Slight odor. LE compartments Soft, supple and non-tender with diffuse edema and several small Bullae. Problem List - Problems (1) Gangrene Assessment/Plan: Left LE dry gangrene still awaiting duplex. 1) Spoke with medicine about duplex, they will push to expedite today. 2) Will hold off on CO2 angio pending duplex results as medicine managing patient fluids. 3) Continue daily santyl to toes as ordered 4) Elevate Legs 5) Medical optimization/clearance 6) Cardio clearance Code(s): I96 - GANGRENE, NOT ELSEWHERE CLASSIFIED
[2018-06-02] MEDS: ASPIRIN 81 MG CHEWABLE TABLETS PO SCH (10:08)
[2018-06-02] MEDS: CLOPIDOGREL BISULFATE 75 MG TABLET (FP) PO SCH (10:08)
[2018-06-02] MEDS: LACTULOSE 20 GM/30 ML UDC (FOR ORAL USE ONLY) PO SCH (10:08)
[2018-06-02] MEDS: CHOLECALCIFEROL (VITAMIN D3) 1,000 UNIT TABLET (FP) PO SCH (10:08)
[2018-06-02] MEDS: HEPARIN NA (PORCINE) 5,000 UNITS/ML 1ML VIAL SQ SCH ×2 (10:09→21:12)
[2018-06-02] MEDS: BUDESONIDE/FORMETEROL FUMARATE 80/4.5 mcg INHALER IH SCH ×2 (10:09→22:30)
[2018-06-02] MEDS: COLLAGENASE CLOSTRIDIUM HIST. 30 GRAMS TUBE TP SCH (10:09)
--- NOTE | 2018-06-02 10:50 | PN ---
Progress Note (short form) - Note Progress Note: s: complains of worsening shortness of breath. no chest pain, palps, dizziness. Current Medications Acetaminophen (Tylenol -) 650 mg PO Q4H PRN PRN Reason: PAIN Last Admin: 06/01/18 23:01 Dose: 650 mg Albuterol/Ipratropium (Duoneb -) 1 amp NEB Q6H PRN PRN Reason: SHORTNESS OF BREATH Last Admin: 06/02/18 06:28 Dose: 1 amp Aspirin (Asa -) 81 mg PO DAILY [facility] Last Admin: 06/02/18 10:08 Dose: 81 mg Atorvastatin Calcium (Lipitor -) 40 mg PO HS [facility] Last Admin: 06/01/18 23:01 Dose: 40 mg Budesonide/Formoterol Fumarate (Symbicort 80/4.5mcg -) 2 puff IH BID [facility] Last Admin: 06/02/18 10:09 Dose: 2 puff Cholecalciferol (Vitamin D3 -) 2,000 unit PO DAILY [facility] Last Admin: 06/02/18 10:08 Dose: 2,000 unit Clopidogrel Bisulfate (Plavix -) 75 mg PO DAILY [facility] Last Admin: 06/02/18 10:08 Dose: 75 mg Collagenase (Santyl -) 1 applic TP DAILY [facility]; Protocol Last Admin: 06/02/18 10:09 Dose: 1 applic Cyclobenzaprine HCl (Cyclobenzaprine Hcl) 5 mg PO HS [facility] Last Admin: 06/01/18 23:02 Dose: 5 mg Docusate Sodium (Colace -) 100 mg PO TID [facility] Last Admin: 06/02/18 07:02 Dose: 100 mg Furosemide (Lasix Injection -) 100 mg IVPB BID@0600,1400 [facility] Last Admin: 06/02/18 07:02 Dose: 100 mg Heparin Sodium (Porcine) (Heparin -) 5,000 unit SQ BID [facility] Last Admin: 06/02/18 10:09 Dose: 5,000 unit Piperacillin Sod/Tazobactam (Sod 2.25 gm/ Dextrose) 50 mls @ 100 mls/hr IVPB Q8H-IV [facility]; Protocol Last Admin: 06/02/18 10:03 Dose: 100 mls/hr Insulin Aspart (Novolog Vial Sliding Scale -) 1 vial SQ ACHS [facility]; Protocol Last Admin: 06/02/18 07:19 Dose: Not Given Lactulose (Cephulac (Oral Use)) 20 gm PO DAILY [facility] Last Admin: 06/02/18 10:08 Dose: 20 gm Metoprolol Succinate (Toprol Xl -) 100 mg PO BID [facility] Last Admin: 06/02/18 10:08 Dose: 100 mg Ranitidine HCl (Zantac -) 150 mg PO HS [facility] Last Admin: 06/01/18 23:01 Dose: 150 mg - Objective Vital Signs Period Temp Pulse Resp BP Sys/El Pulse Ox Last 24 Hr 97.3 F-98.2 F 92-120 16-22 117-140/57-89 98 Constitutional: Yes: No Distress, Calm Eyes: No: Sclera Icterus HENT: No: Nasal Congestion Cardiovascular: Yes: Regular Rate and Rhythm, JVD (to jaw), S1, S2, Other (PMI non diplaced). No: Gallop, Murmur Respiratory: Yes: CTA Bilaterally, Diminished (L base). No: Accessory Muscle Use, Rales, Wheezes Gastrointestinal: Yes: Normal Bowel Sounds, Soft. No: Tenderness Musculoskeletal: Yes: Other (No kyphosis) Extremities: No: Cold Edema: Yes (L foot) Integumentary: No: Jaundice Neurological: Yes: Alert, Oriented (x3) Psychiatric: No: Agitated Assessment/Plan ECG: AFL, V-P, PVCs, LVH, no sig change prior CXR: chf. infiltrate vs fluid L base CT head: L thalamic infarct, unchanged from prior echo 06/2016: sev dec lvef, global hk, rv tds, trinity, mod-sev mr, mod tr, rvsp 50- 60 echo 06/2015: mild lve, mod-sev dec lvef, mod lae, nl rv size, mild dec rv fcn, mild-mod mr, mild tr, nl avr fcn, rvsp 30-40 04/14/18 ECHO MSH - moderate left ventricular dilatation overall severe decreased left ventricular systolic function (diffuse); estimated ejection fraction = 30 % The posterior wall is severely hypokinetic. Restrictive diastolic dysfunction normal right ventricular size moderate decreased right ventricular function aortic prosthesis (tissue) no evidence for aortic regurgitation moderate to severe mitral regurgitation mild to moderate tricuspid regurgitation moderate to severe pulmonary hypertension minimal pulmonic regurgitation no evidence for pericardial effusion technically difficult study Definity precision microbubble contrast used to enhance endocardial border definition mibi 06/2016 (pers): non-diagnostic STs; large area inferior/inferolateral/ lateral scar; no ischemia; severe LV cavity dilation; global HK with akinesis of inferior/inferolat/lateral allan; EF 16% mibi 09/2014: large inf scar, mod anteroapical ischemia, lvef 25% tele: AFL HRs frequently 130s (to 90s). 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 mult episodes NSVT a/p: 62 m hx copd, cabgx3 2012, bio avr 2012, pad s/p b/l sfa occlusions, syst chf s/p medtronic icd, htn, hld, a-tach, here with back pain, sob. acute on chronic systolic CHF exacerbation: -recent dc for chf, was doing well but then stopped taking his lasix and other meds for several days and now back with acute chf (second recent admit for med noncompliance) -goal dry wt around 180lbs, on admission 197lbs -was on lasix 80 po daily at home. -05/28- on 80 iv lasix bid with dec Cr, weight down - 05/30 weight charted stable at 193 lbs, however patient says he was not weighed today, renal function improving, edema better - continue same lasix 80 mg IV BID - 05/31 wt unchanged at 193, above dry wt. poor diuretic response to lasix 80 iv per patient. he is well-compensated with JVD but no peripheral edema, no sob at rest, + L effusion on cxr. increase lasix to 100 iv bid, will give one time test dose metolazone 2.5 today. improved AF rate control, as disc 'd - 06/01: wt stable with increased lasix dose to 100 mg IV BID and one time metolazone. will give metolazone 5 mg x 1 prior to PM dose - 06/02: wt stable, dyspnea worsening. Cr rising today, d/w nephrology will continue same lasix 100 mg IV BID, increase metolazone and give prior to PM dose -cont metoprolol. 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 HR control suboptimal. - increase metoprolol to 150 mg BID, still having high rates -CHADS VASC 5. prohibitive falls risk, transferred to [place] recently for evaluation--randomized in Watchman trial -s/p watchman device 04/20--discharged on aspirin and plavix for 3 months protocol. continue same NSVT - longest 24 beats, s/p ICD - increase metoprolol as above - replete lytes for K >4.0, Mg, >2.0 cad/hx of CABG 2012 -no recent angina/ischemia -no signs acs -trop chronically in intermediate range, no significant change in current value , trend for now -cont prior cad med regimen: asa, statin, bb, ccb bio avr: -nl fcn on echo 04/2018 CVA: -age indeterminate L thalamic stroke on CT here 03/2019 -now s/p Watchman device 04/2018, cont aspirin and plavix s/p icd: -no shocks -routine outpt monitoring htn: -bp stable -cont home meds
--- NOTE | 2018-06-02 11:32 | PN ---
Progress Note (short form) - Note Progress Note: Podiatry Brief Note: Progressive gangrenous changes to left foot. Operative management is on hold, patient needs to be medical optimized. Will be on hold for now. Aliza Alvarez DPM
--- NOTE | 2018-06-02 12:55 | PN ---
Progress Note, Physician History of Present Illness: Pt seen and examined at bedside. He feels no great change in shortness of breath. - Current Medication List Current Medications: Active Medications Acetaminophen (Tylenol -) 650 mg PO Q4H PRN PRN Reason: PAIN Last Admin: 06/01/18 23:01 Dose: 650 mg Albuterol/Ipratropium (Duoneb -) 1 amp NEB Q6H PRN PRN Reason: SHORTNESS OF BREATH Last Admin: 06/02/18 06:28 Dose: 1 amp Aspirin (Asa -) 81 mg PO DAILY [facility] Last Admin: 06/02/18 10:08 Dose: 81 mg Atorvastatin Calcium (Lipitor -) 40 mg PO HS [facility] Last Admin: 06/01/18 23:01 Dose: 40 mg Budesonide/Formoterol Fumarate (Symbicort 80/4.5mcg -) 2 puff IH BID [facility] Last Admin: 06/02/18 10:09 Dose: 2 puff Cholecalciferol (Vitamin D3 -) 2,000 unit PO DAILY [facility] Last Admin: 06/02/18 10:08 Dose: 2,000 unit Clopidogrel Bisulfate (Plavix -) 75 mg PO DAILY [facility] Last Admin: 06/02/18 10:08 Dose: 75 mg Collagenase (Santyl -) 1 applic TP DAILY [facility]; Protocol Last Admin: 06/02/18 10:09 Dose: 1 applic Cyclobenzaprine HCl (Cyclobenzaprine Hcl) 5 mg PO HS [facility] Last Admin: 06/01/18 23:02 Dose: 5 mg Docusate Sodium (Colace -) 100 mg PO TID [facility] Last Admin: 06/02/18 07:02 Dose: 100 mg Furosemide (Lasix Injection -) 100 mg IVPB BID@0600,1400 [facility] Last Admin: 06/02/18 07:02 Dose: 100 mg Heparin Sodium (Porcine) (Heparin -) 5,000 unit SQ BID [facility] Last Admin: 06/02/18 10:09 Dose: 5,000 unit Piperacillin Sod/Tazobactam (Sod 2.25 gm/ Dextrose) 50 mls @ 100 mls/hr IVPB Q8H-IV [facility]; Protocol Last Admin: 06/02/18 10:03 Dose: 100 mls/hr Insulin Aspart (Novolog Vial Sliding Scale -) 1 vial SQ ACHS [facility]; Protocol Last Admin: 06/02/18 12:46 Dose: 2 units Lactulose (Cephulac (Oral Use)) 20 gm PO DAILY [facility] Last Admin: 06/02/18 10:08 Dose: 20 gm Metoprolol Succinate (Toprol Xl -) 100 mg PO BID [facility] Last Admin: 06/02/18 10:08 Dose: 100 mg Ranitidine HCl (Zantac -) 150 mg PO HS [facility] Last Admin: 06/01/18 23:01 Dose: 150 mg - Objective Vital Signs: Vital Signs Temperature 98.7 F 06/02/18 10:00 Pulse Rate 127 H 06/02/18 10:00 Respiratory Rate 22 H 06/02/18 10:00 Blood Pressure 116/77 06/02/18 10:00 O2 Sat by Pulse Oximetry (%) 98 06/02/18 09:00 Constitutional: Yes: Calm Eyes: Yes: Conjunctiva Clear HENT: Yes: Atraumatic Neck: Yes: Supple Cardiovascular: Yes: S1, S2 Respiratory: Yes: On Nasal O2, Rhonchi Gastrointestinal: Yes: Soft Genitourinary: Yes: WNL Extremities: Yes: Other (left toe gangrene) Edema: Yes Edema: LLE: 2+, RLE: 2+ Neurological: Yes: Oriented Psychiatric: Yes: Oriented Labs: CBC, BMP 06/02/18 05:30 06/02/18 05:30 INR, PTT INR 1.58 (0.83-1.09) H 05/28/18 02:29 Assessment/Plan Current Medications Generic Name Dose Route Start Last Admin Trade Name Freq PRN Reason Stop Dose Admin Acetaminophen 650 mg 05/29/18 15:41 06/01/18 23:01 Tylenol - PO 650 mg Q4H PRN Administration PAIN Albuterol/Ipratropium 1 amp 05/28/18 11:38 06/02/18 06:28 Duoneb - NEB 1 amp Q6H PRN Administration SHORTNESS OF BREATH Aspirin 81 mg 05/28/18 11:38 06/02/18 10:08 Asa - PO 81 mg DAILY [facility] Administration Atorvastatin Calcium 40 mg 05/28/18 22:00 06/01/18 23:01 Lipitor - PO 40 mg HS [facility] Administration Budesonide/Formoterol Fumarate 2 puff 05/28/18 22:00 06/02/18 10:09 Symbicort 80/4.5mcg - IH 2 puff BID [facility] Administration Cholecalciferol 2,000 unit 05/29/18 10:00 06/02/18 10:08 Vitamin D3 - PO 2,000 unit DAILY [facility] Administration Clopidogrel Bisulfate 75 mg 05/28/18 11:38 06/02/18 10:08 Plavix - PO 75 mg DAILY [facility] Administration Collagenase 1 applic 05/31/18 10:00 06/02/18 10:09 Santyl - TP 1 applic DAILY [facility] Administration Protocol Cyclobenzaprine HCl 5 mg 05/28/18 22:00 06/01/18 23:02 Cyclobenzaprine Hcl PO 5 mg HS [facility] Administration Docusate Sodium 100 mg 05/28/18 14:00 06/02/18 07:02 Colace - PO 100 mg TID [facility] Administration Furosemide 100 mg 05/31/18 10:36 06/02/18 07:02 Lasix Injection - IVPB 100 mg BID@0600,1400 [facility] Administration Heparin Sodium (Porcine) 5,000 unit 05/28/18 22:00 06/02/18 10:09 Heparin - SQ 5,000 unit BID [facility] Administration Piperacillin Sod/Tazobactam 50 mls @ 100 mls/hr 05/30/18 18:00 06/02/18 10:03 Sod 2.25 gm/ Dextrose IVPB 100 mls/hr Q8H-IV [facility] Administration Protocol Insulin Aspart 1 vial 05/28/18 16:30 06/02/18 12:46 Novolog Vial Sliding Scale - SQ 2 units ACHS [facility] Administration Protocol Lactulose 20 gm 06/01/18 10:00 06/02/18 10:08 Cephulac (Oral Use) PO 20 gm DAILY [facility] Administration Metolazone 7.5 mg 06/02/18 12:49 Zaroxolyn - PO 06/02/18 12:50 ONCE ONE Metoprolol Succinate 100 mg 06/01/18 10:42 06/02/18 10:08 Toprol Xl - PO 100 mg BID [facility] Administration Ranitidine HCl 150 mg 05/28/18 22:00 06/01/18 23:01 Zantac - PO 150 mg HS [facility] Administration Impression 1. CKD 2. proteinuria 3. CAD 4. CHF 5. COPD 6. DM 7. HTN 8. azotemia/fior 9. anemia 10. PVD Plan - pt remains overloaded - cont with lasix - will give metolazone - follow doppler - pt is at risk for SHARI if he gets angio as he is in heart and renal failure - vascular follow up, consider co2 study if possible - repeat labs am - repeat cxr in am - discussed with cardio
[2018-06-02] MEDS ORDERED: METOLAZONE 2.5 MG TABLET (FP) PO ONE (13:30)
--- NOTE | 2018-06-02 13:40 | PN ---
Physical Exam: SUBJECTIVE: Patient seen and examined still in fluid overload. Left leg shows dry to wet gangrenous changes. on antibiotics on lasix 100 bid urine output 1500ml OBJECTIVE: Vital Signs Period Temp Pulse Resp BP Sys/El Pulse Ox Last 24 Hr 97.3 F-98.7 F 92-127 16-22 116-140/57-89 98-98 GENERAL: Awake, alert, and fully oriented, in acute distress. HEAD: Normal with no signs of trauma. EYES: Pupils equal, round and reactive to light, EARS, NOSE, THROAT: Moist mucous membranes. NECK: Normal range of motion, supple without lymphadenopathy, JVP distended , or masses. LUNGS: Bb/l air entry present,mild crackels b/l ABDOMEN: Soft, nontender, not distended, normoactive bowel sounds, no guarding, no rebound, no masses. UPPER EXTREMITIES: 2+ pulses, warm, well-perfused. LOWER EXTREMITIES: pitting edema B/l, dry to wet gangrene present on left foot, dusky color present, line of demarcation present, no foul smell PSYCHIATRIC: Cooperative. SKIN: Warm, dry, Laboratory Results - last 24 hr 06/01/18 06/01/18 06/02/18 16:20 22:57 05:30 WBC RBC Hgb Hct MCV MCH MCHC RDW Plt Count MPV Absolute Neuts (auto) Neutrophils % Lymphocytes % Monocytes % Eosinophils % Basophils % Nucleated RBC % Sodium 136 Potassium 3.7 Chloride 95 L Carbon Dioxide 30 Anion Gap 11 BUN 59 H Creatinine 2.4 H Creat Clearance w eGFR 27.57 POC Glucometer 177 227 Random Glucose 70 L Calcium 7.9 L Phosphorus 3.7 Magnesium 2.0 06/02/18 06/02/18 06/02/18 05:30 06:43 12:27 WBC 14.1 H RBC 3.98 L Hgb 12.3 Hct 37.1 MCV 93.1 MCH 30.9 MCHC 33.2 RDW 20.9 H Plt Count 319 MPV 8.7 Absolute Neuts (auto) 11.2 H Neutrophils % 79.4 Lymphocytes % 6.1 L D Monocytes % 9.4 Eosinophils % 4.2 Basophils % 0.9 Nucleated RBC % 0 Sodium Potassium Chloride Carbon Dioxide Anion Gap BUN Creatinine Creat Clearance w eGFR POC Glucometer 117 162 Random Glucose Calcium Phosphorus Magnesium Active Medications Generic Name Dose Route Start Last Admin Trade Name Freq PRN Reason Stop Dose Admin Acetaminophen 650 mg 05/29/18 15:41 06/01/18 23:01 Tylenol - PO 650 mg Q4H PRN Administration PAIN Albuterol/Ipratropium 1 amp 05/28/18 11:38 06/02/18 06:28 Duoneb - NEB 1 amp Q6H PRN Administration SHORTNESS OF BREATH Aspirin 81 mg 05/28/18 11:38 06/02/18 10:08 Asa - PO 81 mg DAILY [facility] Administration Atorvastatin Calcium 40 mg 05/28/18 22:00 06/01/18 23:01 Lipitor - PO 40 mg HS [facility] Administration Budesonide/Formoterol Fumarate 2 puff 05/28/18 22:00 06/02/18 10:09 Symbicort 80/4.5mcg - IH 2 puff BID [facility] Administration Cholecalciferol 2,000 unit 05/29/18 10:00 06/02/18 10:08 Vitamin D3 - PO 2,000 unit DAILY [facility] Administration Clopidogrel Bisulfate 75 mg 05/28/18 11:38 06/02/18 10:08 Plavix - PO 75 mg DAILY [facility] Administration Collagenase 1 applic 05/31/18 10:00 06/02/18 10:09 Santyl - TP 1 applic DAILY [facility] Administration Protocol Cyclobenzaprine HCl 5 mg 05/28/18 22:00 06/01/18 23:02 Cyclobenzaprine Hcl PO 5 mg HS [facility] Administration Docusate Sodium 100 mg 05/28/18 14:00 06/02/18 07:02 Colace - PO 100 mg TID [facility] Administration Furosemide 100 mg 05/31/18 10:36 06/02/18 07:02 Lasix Injection - IVPB 100 mg BID@0600,1400 [facility] Administration Heparin Sodium (Porcine) 5,000 unit 05/28/18 22:00 06/02/18 10:09 Heparin - SQ 5,000 unit BID [facility] Administration Piperacillin Sod/Tazobactam 50 mls @ 100 mls/hr 05/30/18 18:00 06/02/18 10:03 Sod 2.25 gm/ Dextrose IVPB 100 mls/hr Q8H-IV [facility] Administration Protocol Insulin Aspart 1 vial 05/28/18 16:30 06/02/18 12:46 Novolog Vial Sliding Scale - SQ 2 units ACHS [facility] Administration Protocol Lactulose 20 gm 06/01/18 10:00 06/02/18 10:08 Cephulac (Oral Use) PO 20 gm DAILY [facility] Administration Metoprolol Succinate 100 mg 06/01/18 10:42 06/02/18 10:08 Toprol Xl - PO 100 mg BID [facility] Administration Ranitidine HCl 150 mg 05/28/18 22:00 06/01/18 23:01 Zantac - PO 150 mg HS [facility] Administration ASSESSMENT/PLAN: (1) Acute exacerbation of CHF (congestive heart failure) UO 1500 Monitor vitals monior intake ouput IV lasix 100 mg bid low salt diet keep head end elevated daily weight/ echo done on 03/15/18 reviewed ef 30-35 cariology on case metoprolol xl 100 bid 2) PVD with dry to wet gangrene duplex arterial scan pending. Requested radiology to expedite the procedure. Discussed with nephrology: pt is not a candidate for CTA as he has both renal and cardiac failure. vascular surgery on case pt on aspirin and plavix antibiotics as per ID 3 Hyperkalemia resolved 4 Troponemia; likely demand or can be in setting of ckd 5 COPD (chronic obstructive pulmonary disease) chronic, O2 dependent continue nebs symbicort. no wheezing (6) Atrial fib/CAD hr >120 s/p watchman's device 04/2018 metoprolol xl 100 bid continue asa/plavix x 3 months continue statin cardiac monitoring cardiology following (7) Chronic kidney disease (CKD) likely from cardiorenal syndrome monitor cr avoid nephrtoxic drugs (8) Diabetes hold oral hypoglycemia started on insulin sliding scale bgm monitoring (6) HTN (hypertension) -controlled (9 ) Low back pain -chronic -PT -analgesics prn - continue cyclobenzaprine (8) Anemia in chronic kidney disease Hb stable Fluid: orally allowed : free water intake< 1L electrolyte: hyponatremia: resolved nutrition: low salt and fat diet dvt pro heparin sq gi pro zantac Visit type - Emergency Visit Emergency Visit: Yes ED Registration Date: 05/28/18 Care time: The patient presented to the Emergency Department on the above date and was hospitalized for further evaluation of their emergent condition. - New Patient This patient is new to me today: No - Critical Care Critical Care patient: No
--- NOTE | 2018-06-02 14:10 | PN ---
Progress Note, Physician History of Present Illness: still continue to have sob wbc still high - Current Medication List Current Medications: Active Medications Acetaminophen (Tylenol -) 650 mg PO Q4H PRN PRN Reason: PAIN Last Admin: 06/01/18 23:01 Dose: 650 mg Albuterol/Ipratropium (Duoneb -) 1 amp NEB Q6H PRN PRN Reason: SHORTNESS OF BREATH Last Admin: 06/02/18 06:28 Dose: 1 amp Aspirin (Asa -) 81 mg PO DAILY [facility] Last Admin: 06/02/18 10:08 Dose: 81 mg Atorvastatin Calcium (Lipitor -) 40 mg PO HS [facility] Last Admin: 06/01/18 23:01 Dose: 40 mg Budesonide/Formoterol Fumarate (Symbicort 80/4.5mcg -) 2 puff IH BID [facility] Last Admin: 06/02/18 10:09 Dose: 2 puff Cholecalciferol (Vitamin D3 -) 2,000 unit PO DAILY [facility] Last Admin: 06/02/18 10:08 Dose: 2,000 unit Clopidogrel Bisulfate (Plavix -) 75 mg PO DAILY [facility] Last Admin: 06/02/18 10:08 Dose: 75 mg Collagenase (Santyl -) 1 applic TP DAILY [facility]; Protocol Last Admin: 06/02/18 10:09 Dose: 1 applic Cyclobenzaprine HCl (Cyclobenzaprine Hcl) 5 mg PO HS [facility] Last Admin: 06/01/18 23:02 Dose: 5 mg Docusate Sodium (Colace -) 100 mg PO TID [facility] Last Admin: 06/02/18 13:47 Dose: 100 mg Furosemide (Lasix Injection -) 100 mg IVPB BID@0600,1400 [facility] Last Admin: 06/02/18 07:02 Dose: 100 mg Heparin Sodium (Porcine) (Heparin -) 5,000 unit SQ BID [facility] Last Admin: 06/02/18 10:09 Dose: 5,000 unit Ceftriaxone Sodium (Ceftriaxone 2 Gm-D5w Bag) 2 gm in 50 mls @ 100 mls/hr IVPB DAILY [facility]; Protocol Insulin Aspart (Novolog Vial Sliding Scale -) 1 vial SQ ACHS [facility]; Protocol Last Admin: 06/02/18 12:46 Dose: 2 units Lactulose (Cephulac (Oral Use)) 20 gm PO DAILY [facility] Last Admin: 06/02/18 10:08 Dose: 20 gm Metoprolol Succinate (Toprol Xl -) 150 mg PO BID [facility] Ranitidine HCl (Zantac -) 150 mg PO HS [facility] Last Admin: 06/01/18 23:01 Dose: 150 mg - Objective Vital Signs: Vital Signs Temperature 98.7 F 06/02/18 10:00 Pulse Rate 127 H 06/02/18 10:00 Respiratory Rate 22 H 06/02/18 10:00 Blood Pressure 116/77 06/02/18 10:00 O2 Sat by Pulse Oximetry (%) 98 06/02/18 09:00 Constitutional: Yes: Calm, Mild Distress Cardiovascular: Yes: S1, S2 Respiratory: Yes: On Nasal O2, Poor Air Entry Gastrointestinal: Yes: Normal Bowel Sounds, Soft Musculoskeletal: Yes: WNL Extremities: Yes: Other Neurological: Yes: Alert, Oriented Psychiatric: Yes: Alert, Oriented Labs: CBC, BMP 06/02/18 05:30 06/02/18 05:30 INR, PTT INR 1.58 (0.83-1.09) H 05/28/18 02:29 Assessment/Plan Problem List - Problems (1) Acute exacerbation of CHF (congestive heart failure) Code(s): I50.9 - HEART FAILURE, UNSPECIFIED Qualifiers: Heart failure type: unspecified Qualified Code(s): I50.9 - Heart failure, unspecified (2) Afib Code(s): I48.91 - UNSPECIFIED ATRIAL FIBRILLATION Qualifiers: Atrial fibrillation type: chronic Qualified Code(s): I48.2 - Chronic atrial fibrillation (3) Carotid stenosis Code(s): I65.29 - OCCLUSION AND STENOSIS OF UNSPECIFIED CAROTID ARTERY (4) Chronic respiratory failure Code(s): J96.10 - CHRONIC RESPIRATORY FAILURE, UNSP W HYPOXIA OR HYPERCAPNIA (5) Hyperkalemia Code(s): E87.5 - HYPERKALEMIA (6) Troponin I above reference range Code(s): R74.8 - ABNORMAL LEVELS OF OTHER SERUM ENZYMES (7) Acute on chronic renal insufficiency Code(s): N28.9 - DISORDER OF KIDNEY AND URETER, UNSPECIFIED; N18.9 - CHRONIC KIDNEY DISEASE, UNSPECIFIED (8) Diabetes Code(s): E11.9 - TYPE 2 DIABETES MELLITUS WITHOUT COMPLICATIONS Qualifiers: Diabetes mellitus type: type 2 Diabetes mellitus termite treater helper insulin use: with usp use Diabetes mellitus complication status: with kidney complications Diabetes mellitus complication detail: with chronic kidney disease Chronic kidney disease stage: stage 3 (moderate) Qualified Code(s): E11.22 - Type 2 diabetes mellitus with diabetic chronic kidney disease; N18.3 - Chronic kidney disease, stage 3 (moderate); Z79.4 - termite treater (current) use of 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 plan podiatry on case final plan awaited probably for or tomorrow will change abx to ceftriaxone resp support
[2018-06-02] MEDS ORDERED: DEXTROSE 5%-WATER 100 ML IVPB ONE (15:39)
[2018-06-02] MEDS: CEFTRIAXONE 2 GM in DEXTROSE 5%-WATER 100 ML IVPB SCH (15:42)
--- NOTE | 2018-06-02 15:55 | SPA.PREOP ---
- PRE-OP NOTE Dx: left toes dry gangrene/ PAD Planned Procedure: Left LE CO2 angiogram Surgeon: Soham Last Vital Signs Temp Pulse Resp BP Pulse Ox 98.7 F 120 H 20 116/92 98 06/02/18 14:00 06/02/18 14:00 06/02/18 14:00 06/02/18 14:00 06/02/18 09:00 Lab Results WBC 14.1 K/mm3 (4.0-10.0) H 06/02/18 05:30 RBC 3.98 M/mm3 (4.00-5.60) L 06/02/18 05:30 Hgb 12.3 GM/dL (11.7-16.9) 06/02/18 05:30 Hct 37.1 % (35.4-49) 06/02/18 05:30 MCV 93.1 fl (80-96) 06/02/18 05:30 MCHC 33.2 g/dl (32.0-35.9) 06/02/18 05:30 RDW 20.9 % (11.9-15.9) H 06/02/18 05:30 Plt Count 319 K/MM3 (134-434) 06/02/18 05:30 Sodium 136 mmol/L (136-145) 06/02/18 05:30 Potassium 3.7 mmol/L (3.5-5.1) 06/02/18 05:30 Chloride 95 mmol/L (98-107) L 06/02/18 05:30 Carbon Dioxide 30 mmol/L (21-32) 06/02/18 05:30 Anion Gap 11 MMOL/L (8-16) 06/02/18 05:30 BUN 59 mg/dL (7-18) H 06/02/18 05:30 Creatinine 2.4 mg/dL (0.55-1.3) H 06/02/18 05:30 Random Glucose 70 mg/dL (74-106) L 06/02/18 05:30 Calcium 7.9 mg/dL (8.5-10.1) L 06/02/18 05:30 INR 1.58 (0.83-1.09) H 05/28/18 02:29 Imaging: Left LE duplex pending. Problem List - Problems (1) Gangrene Assessment/Plan: Left LE dry gangrene with left LE duplex report pending. Plan for Left LE angiogram tomorrow afternoon with Dr. Rousseau 1. Make NPO after midnight except po meds 2. GI/DVT PPX 3. Medical optimization / clearance 4. Consent to be obtained by surgeon after risks, benefits and alternatives discussed with patient and or Health Care Proxy. Code(s): I96 - GANGRENE, NOT ELSEWHERE CLASSIFIED
[2018-06-02] MEDS ORDERED: PT OWN MED DRAWER 7, Y5N ONE (20:50)
[2018-06-02] MEDS: RANITIDINE HCL 150 MG TABLET (FP) PO SCH (21:12)
[2018-06-02] MEDS: ACETAMINOPHEN 325 MG TABLET (FP) PO PRN (21:12)
[2018-06-02] MEDS: ATORVASTATIN CA 40 MG TABLET (FP) PO SCH (21:12)
[2018-06-02] MEDS: CYCLOBENZAPRINE HCL 5 MG TABLET PO SCH (22:30)
[2018-06-03 06:40] LABS: BASO % 1.2 % (0-2.0); EOS % 3.6 % (0-4.5); HEMOGLOBIN 11.4 GM/dL (11.7-16.9); LYMPH % 7.4 % (8-40); MCH 30.9 pg (25.7-33.7); MCHC 32.7 g/dl (32.0-35.9); MEAN CELL VOLUME 94.5 fl (80-96); MONO % 9.2 % (3.8-10.2); NEUT % 78.6 % (42.8-82.8); PLATELET COUNT 298 K/MM3 (134-434); RDW 21.4 % (11.9-15.9); WHITE BLOOD COUNT 12.7 K/mm3 (4.0-10.0)
[2018-06-03] MEDS: FUROSEMIDE 100 MG/10 ML INJECTABLE VIAL IVPB SCH ×2 (06:53→13:53)
[2018-06-03] MEDS: DOCUSATE SODIUM 100 MG CAPSULE (FP) PO SCH ×3 (06:54→22:16)
[2018-06-03] MEDS: INSULIN SLIDING SCALE (NOVOLOG) 1 VIAL SQ SCH ×4 (06:57→22:17)
[2018-06-03 07:28] LABS: ALBUMIN 1.9 g/dl (3.4-5.0); ALK PHOS 169 U/L (45-117); ANION GAP 11 MMOL/L (8-16); BILIRUBIN,TOTAL 0.6 mg/dL (0.2-1); BLOOD UREA NITROGEN 67 mg/dL (7-18); CALCIUM 7.5 mg/dL (8.5-10.1); CHLORIDE 92 mmol/L (98-107); CO2 30 mmol/L (21-32); CREATININE 2.6 mg/dL (0.55-1.3); GLUCOSE,RANDOM 104 mg/dL (74-106); MAGNESIUM 2.1 mg/dL (1.8-2.4); POTASSIUM 3.7 mmol/L (3.5-5.1); SGOT/AST 40 U/L (15-37); SGPT/ALT 13 U/L (13-61); SODIUM 133 mmol/L (136-145); TOT PROT 5.4 g/dl (6.4-8.2)
[2018-06-03] MEDS: ALBUTEROL SO4 2.5/IPRATROPIUM 0.5 INH SOL 3 ML VIAL.NEB. NEB PRN ×2 (07:47→21:30)
--- NOTE | 2018-06-03 07:50 | PN ---
Teaching Attending Note Name of Resident: Rafael Lieberman ATTENDING PHYSICIAN STATEMENT I saw and evaluated the patient. I reviewed the resident's note and discussed the case with the resident. I agree with the resident's findings and plan as documented. 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 focal LABS: Active Medications Acetaminophen (Tylenol -) 650 mg PO Q4H PRN PRN Reason: PAIN Last Admin: 06/01/18 23:01 Dose: 650 mg Albuterol/Ipratropium (Duoneb -) 1 amp NEB Q6H PRN PRN Reason: SHORTNESS OF BREATH Last Admin: 06/02/18 06:28 Dose: 1 amp Aspirin (Asa -) 81 mg PO DAILY [facility] Last Admin: 06/01/18 09:53 Dose: 81 mg Atorvastatin Calcium (Lipitor -) 40 mg PO HS [facility] Last Admin: 06/01/18 23:01 Dose: 40 mg Budesonide/Formoterol Fumarate (Symbicort 80/4.5mcg -) 2 puff IH BID [facility] Last Admin: 06/01/18 23:02 Dose: 2 puff Cholecalciferol (Vitamin D3 -) 2,000 unit PO DAILY [facility] Last Admin: 06/01/18 09:53 Dose: 2,000 unit Clopidogrel Bisulfate (Plavix -) 75 mg PO DAILY [facility] Last Admin: 06/01/18 09:53 Dose: 75 mg Collagenase (Santyl -) 1 applic TP DAILY [facility]; Protocol Last Admin: 06/01/18 09:54 Dose: 1 applic Cyclobenzaprine HCl (Cyclobenzaprine Hcl) 5 mg PO HS [facility] Last Admin: 06/01/18 23:02 Dose: 5 mg Docusate Sodium (Colace -) 100 mg PO TID [facility] Last Admin: 06/02/18 07:02 Dose: 100 mg Furosemide (Lasix Injection -) 100 mg IVPB BID@0600,1400 [facility] Last Admin: 06/02/18 07:02 Dose: 100 mg Heparin Sodium (Porcine) (Heparin -) 5,000 unit SQ BID [facility] Last Admin: 06/01/18 23:02 Dose: 5,000 unit Piperacillin Sod/Tazobactam (Sod 2.25 gm/ Dextrose) 50 mls @ 100 mls/hr IVPB Q8H-IV [facility]; Protocol Last Admin: 06/02/18 03:00 Dose: 100 mls/hr Insulin Aspart (Novolog Vial Sliding Scale -) 1 vial SQ ACHS [facility]; Protocol Last Admin: 06/02/18 07:19 Dose: Not Given Lactulose (Cephulac (Oral Use)) 20 gm PO DAILY [facility] Last Admin: 06/01/18 09:53 Dose: 20 gm Metoprolol Succinate (Toprol Xl -) 100 mg PO BID [facility] Last Admin: 06/01/18 23:01 Dose: 100 mg Ranitidine HCl (Zantac -) 150 mg PO HS [facility] Last Admin: 06/01/18 23:01 Dose: 150 mg ASSESSMENT AND PLAN: 62 yrs old F multiple medical Co-morbidities H/O CHF, HTN , T2DM, CKD stage 3, PAD, Afib watchman Devise in 2018 at [facility] for NSVT, Bioprosthetic AVR, MR tran historian present with decompensated CHF with worsening LE swelling and SOB, patient has Left LE gangrene waiting arterial Doppler. Problem List - Problems (1) Acute exacerbation of CHF (congestive heart failure) Assessment/Plan: DSue to non compliance with diuretic dry weight 180 on IV Lasix, B Blockers for rate controlled cardiology and Nephrology, low salt Diet F/U IN/Op and BMP Code(s): I50.9 - HEART FAILURE, UNSPECIFIED Qualifiers: Heart failure type: unspecified Qualified Code(s): I50.9 - Heart failure, unspecified (2) Chronic kidney disease (CKD) Assessment/Plan: Due to diabetic neuropathy renal functions are at abse line F/U BMP and renal recommondations. Code(s): N18.9 - CHRONIC KIDNEY DISEASE, UNSPECIFIED Qualifiers: Chronic kidney disease stage: stage 4 (severe) Qualified Code(s): N18.4 - Chronic kidney disease, stage 4 (severe) (3) Afib Assessment/Plan: Poorly rate controlled incresed B Blockers to optimize HR s/o Watchman Device on ASA and Plavix. Code(s): I48.91 - UNSPECIFIED ATRIAL FIBRILLATION Qualifiers: Atrial fibrillation type: chronic Qualified Code(s): I48.2 - Chronic atrial fibrillation (4) COPD (chronic obstructive pulmonary disease) Assessment/Plan: Cont advair and Duoneb PRN Code(s): J44.9 - CHRONIC OBSTRUCTIVE PULMONARY DISEASE, UNSPECIFIED Qualifiers: COPD type: COPD with acute exacerbation Qualified Code(s): J44.1 - Chronic obstructive pulmonary disease with (acute) exacerbation (5) Diabetes mellitus with chronic kidney disease Assessment/Plan: On Insulin optimize glycemic control Code(s): E11.22 - TYPE 2 DIABETES MELLITUS W DIABETIC CHRONIC KIDNEY DISEASE; N18.9 - CHRONIC KIDNEY DISEASE, UNSPECIFIED Qualifiers: Diabetes mellitus type: type 2 Chronic kidney disease stage: stage 3 ( moderate) (6) Gangrene Assessment/Plan: patient is schedule for angiogram, Left foot toes wet/dry evaluated by Vascular on IV abx F/U LE arterial Doppler. Code(s): I96 - GANGRENE, NOT ELSEWHERE CLASSIFIED
[2018-06-03] MEDS: CHOLECALCIFEROL (VITAMIN D3) 1,000 UNIT TABLET (FP) PO SCH (09:41)
[2018-06-03] MEDS: ASPIRIN 81 MG CHEWABLE TABLETS PO SCH (09:41)
[2018-06-03] MEDS: HEPARIN NA (PORCINE) 5,000 UNITS/ML 1ML VIAL SQ SCH ×2 (09:45→22:17)
[2018-06-03] MEDS: LACTULOSE 20 GM/30 ML UDC (FOR ORAL USE ONLY) PO SCH (09:45)
[2018-06-03] MEDS: CEFTRIAXONE 2 GM in DEXTROSE 5%-WATER 100 ML IVPB SCH (09:53)
[2018-06-03] MEDS ORDERED: DEXTROSE 5%-WATER 100 ML IVPB ONE (09:59)
[2018-06-03] MEDS: BUDESONIDE/FORMETEROL FUMARATE 80/4.5 mcg INHALER IH SCH ×2 (10:10→22:27)
[2018-06-03] MEDS: COLLAGENASE CLOSTRIDIUM HIST. 30 GRAMS TUBE TP SCH (10:10)
--- NOTE | 2018-06-03 11:02 | PN ---
Progress Note (short form) - Note Progress Note: s: no chest pain, palps, dizziness. sob slightly better and he is laying flat i bed now comfortably ex cigs Current Medications Generic Name Dose Route Start Last Admin Trade Name Ghada PRN Reason Stop Dose Admin Acetaminophen 650 mg 05/29/18 15:41 06/02/18 21:12 Tylenol - PO 650 mg Q4H PRN Administration PAIN Albuterol/Ipratropium 1 amp 05/28/18 11:38 06/03/18 07:47 Duoneb - NEB 1 amp Q6H PRN Administration SHORTNESS OF BREATH Aspirin 81 mg 05/28/18 11:38 06/03/18 09:41 Asa - PO 81 mg DAILY [facility] Administration Atorvastatin Calcium 40 mg 05/28/18 22:00 06/02/18 21:12 Lipitor - PO 40 mg HS [facility] Administration Budesonide/Formoterol Fumarate 2 puff 05/28/18 22:00 06/02/18 22:30 Symbicort 80/4.5mcg - IH 2 puff BID [facility] Administration Cholecalciferol 2,000 unit 05/29/18 10:00 06/03/18 09:41 Vitamin D3 - PO 2,000 unit DAILY [facility] Administration Clopidogrel Bisulfate 75 mg 05/28/18 11:38 06/02/18 10:08 Plavix - PO 75 mg DAILY [facility] Administration Collagenase 1 applic 05/31/18 10:00 06/02/18 10:09 Santyl - TP 1 applic DAILY [facility] Administration Protocol Cyclobenzaprine HCl 5 mg 05/28/18 22:00 06/02/18 22:30 Cyclobenzaprine Hcl PO 5 mg HS [facility] Administration Docusate Sodium 100 mg 05/28/18 14:00 06/03/18 06:54 Colace - PO Not Given TID [facility] Furosemide 100 mg 05/31/18 10:36 06/03/18 06:53 Lasix Injection - IVPB 100 mg BID@0600,1400 [facility] Administration Heparin Sodium (Porcine) 5,000 unit 05/28/18 22:00 06/03/18 09:45 Heparin - SQ Not Given BID [facility] Ceftriaxone Sodium 2 gm/ 100 mls @ 200 mls/hr 06/02/18 14:15 06/03/18 09:53 Dextrose IVPB 200 mls/hr DAILY [facility] Administration Protocol Insulin Aspart 1 vial 05/28/18 16:30 06/03/18 06:57 Novolog Vial Sliding Scale - SQ Not Given ACHS [facility] Protocol Lactulose 20 gm 06/01/18 10:00 06/03/18 09:45 Cephulac (Oral Use) PO Not Given DAILY [facility] Metoprolol Succinate 150 mg 06/02/18 13:46 06/03/18 09:44 Toprol Xl - PO 150 mg BID [facility] Administration Ranitidine HCl 150 mg 05/28/18 22:00 06/02/18 21:12 Zantac - PO 150 mg HS [facility] Administration - Objective Vital Signs Temp 97.4 F L 06/03/18 06:00 Pulse 112 H 06/03/18 06:00 Resp 20 06/03/18 06:00 BP 140/90 06/03/18 06:00 Pulse Ox 98 06/02/18 21:00 Intake & Output 06/02/18 06/02/18 06/03/18 11:59 23:59 11:59 Intake Total 240 460 Output Total 300 200 Balance -300 240 260 Weight 192 lb 8 oz 193 lb Intake: IV 40 NS 40 IVPB 200 100 Oral 360 Output: Urine 300 200 Void 300 200 Other: Voiding Method Urinal Diaper Incontinent # Unmeasured Voids Void 1 Bowel Movement Yes # Bowel Movements 1 Weight Measurement Method Standing Scale Standing Scale Constitutional: Yes: No Distress, Calm Eyes: No: Sclera Icterus HENT: No: Nasal Congestion Cardiovascular: Yes: Regular Rate and Rhythm, JVD (to jaw), S1, S2, Other (PMI non diplaced). No: Gallop, Murmur Respiratory: Yes: CTA Bilaterally, Diminished (L base). No: Accessory Muscle Use, Rales, Wheezes Gastrointestinal: Yes: Normal Bowel Sounds, Soft. No: Tenderness Musculoskeletal: Yes: Other (No kyphosis) Extremities: No: Cold Edema: Yes (L foot) Integumentary: No: Jaundice, gangrene of left toes, no diaphoresis Neurological: Yes: Alert, Oriented (x3) Psychiatric: No: Agitated Laboratory Last Values WBC 12.7 K/mm3 (4.0-10.0) H 06/03/18 05:30 RBC 3.70 M/mm3 (4.00-5.60) L 06/03/18 05:30 Hgb 11.4 GM/dL (11.7-16.9) L 06/03/18 05:30 Hct 35.0 % (35.4-49) L 06/03/18 05:30 MCV 94.5 fl (80-96) 06/03/18 05:30 MCH 30.9 pg (25.7-33.7) 06/03/18 05:30 MCHC 32.7 g/dl (32.0-35.9) 06/03/18 05:30 RDW 21.4 % (11.9-15.9) H 06/03/18 05:30 Plt Count 298 K/MM3 (134-434) 06/03/18 05:30 MPV 9.0 fl (7.5-11.1) 06/03/18 05:30 Absolute Neuts (auto) 10.0 K/mm3 (1.5-8.0) H 06/03/18 05:30 Neutrophils % 78.6 % (42.8-82.8) 06/03/18 05:30 Neutrophils % (Manual) 89.0 % (42.8-82.8) H 05/28/18 02:29 Band Neutrophils % 0.0 % 05/28/18 02:29 Lymphocytes % 7.4 % (8-40) L D 06/03/18 05:30 Lymphocytes % (Manual) 4.0 % (8-40) L D 05/28/18 02:29 Monocytes % 9.2 % (3.8-10.2) 06/03/18 05:30 Monocytes % (Manual) 7 % (3.8-10.2) D 05/28/18 02:29 Eosinophils % 3.6 % (0-4.5) 06/03/18 05:30 Eosinophils % (Manual) 0.0 % (0-4.5) D 05/28/18 02:29 Basophils % 1.2 % (0-2.0) 06/03/18 05:30 Basophils % (Manual) 0.0 % (0-2.0) 05/28/18 02:29 Myelocytes % (Man) 0 % (0-2) D 05/28/18 02:29 Promyelocytes % (Man) 0 % (0-2) 05/28/18 02:29 Blast Cells % (Manual) 0 % (0-0) 05/28/18 02:29 Nucleated RBC % 0 % (0-0) 06/03/18 05:30 Metamyelocytes 0 % (0-2) 05/28/18 02:29 Hypochromia 0 06/01/18 05:30 Toxic Granulation 1+ 05/28/18 02:29 Platelet Estimate Normal 06/01/18 05:30 Polychromasia 1+ 06/01/18 05:30 Poikilocytosis 2+ 06/01/18 05:30 Anisocytosis 1+ 06/01/18 05:30 Microcytosis 0 06/01/18 05:30 Macrocytosis 1+ 06/01/18 05:30 Tear Drop Cells 1+ 06/01/18 05:30 Ovalocytes 1+ 06/01/18 05:30 Stomatocytes 1+ 06/01/18 05:30 Justin Cells 1+ 05/28/18 02:29 Acanthocytes (Spur) 1+ 05/28/18 02:29 Schistocytes 1+ 06/01/18 05:30 PT with INR 18.70 SEC (9.7-13.0) H 05/28/18 02:29 INR 1.58 (0.83-1.09) H 05/28/18 02:29 Sodium 133 mmol/L (136-145) L 06/03/18 05:30 Potassium 3.7 mmol/L (3.5-5.1) 06/03/18 05:30 Chloride 92 mmol/L (98-107) L 06/03/18 05:30 Carbon Dioxide 30 mmol/L (21-32) 06/03/18 05:30 Anion Gap 11 MMOL/L (8-16) 06/03/18 05:30 BUN 67 mg/dL (7-18) H 06/03/18 05:30 Creatinine 2.6 mg/dL (0.55-1.3) H 06/03/18 05:30 Creat Clearance w eGFR 25.14 (>60) 06/03/18 05:30 POC Glucometer 110 UNITS (80-120) 06/03/18 06:56 Random Glucose 104 mg/dL (74-106) 06/03/18 05:30 Calcium 7.5 mg/dL (8.5-10.1) L 06/03/18 05:30 Phosphorus 3.7 mg/dL (2.5-4.9) 06/02/18 05:30 Magnesium 2.1 mg/dL (1.8-2.4) 06/03/18 05:30 Total Bilirubin 0.6 mg/dL (0.2-1) 06/03/18 05:30 AST 40 U/L (15-37) H 06/03/18 05:30 ALT 13 U/L (13-61) 06/03/18 05:30 Alkaline Phosphatase 169 U/L (45-117) H 06/03/18 05:30 Creatine Kinase 197 U/L (26-308) 05/28/18 02:29 Creatine Kinase Index 1.0 % (0.0-5.0) 05/28/18 02:29 CK-MB (CK-2) 2.0 ng/mL (0.5-3.6) 05/28/18 02:29 Troponin I 0.28 ng/ml (0.00-0.05) H 05/29/18 08:10 B-Natriuretic Peptide 90838.6 pg/ml (5-125) H 05/28/18 02:29 Total Protein 5.4 g/dl (6.4-8.2) L 06/03/18 05:30 Albumin 1.9 g/dl (3.4-5.0) L 06/03/18 05:30 Triglycerides 136 mg/dL (0-150) 05/29/18 08:10 Cholesterol 127 mg/dL (50-200) 05/29/18 08:10 Total LDL Cholesterol 71 mg/dL (5-100) 05/29/18 08:10 HDL Cholesterol 33 mg/dL (40-60) L 05/29/18 08:10 Blood Type O NEGATIVE 06/02/18 16:00 Antibody Screen Negative 06/02/18 16:00 Assessment/Plan ECG: AFL, V-P, PVCs, LVH, no sig change prior CXR: no sig change CT head: L thalamic infarct, unchanged from prior echo 06/2016: sev dec lvef, global hk, rv tds, trinity, mod-sev mr, mod tr, rvsp 50- 60 echo 06/2015: mild lve, mod-sev dec lvef, mod lae, nl rv size, mild dec rv fcn, mild-mod mr, mild tr, nl avr fcn, rvsp 30-40 04/14/18 ECHO MSH - moderate left ventricular dilatation overall severe decreased left ventricular systolic function (diffuse); estimated ejection fraction = 30 % The posterior wall is severely hypokinetic. Restrictive diastolic dysfunction normal right ventricular size moderate decreased right ventricular function aortic prosthesis (tissue) no evidence for aortic regurgitation moderate to severe mitral regurgitation mild to moderate tricuspid regurgitation moderate to severe pulmonary hypertension minimal pulmonic regurgitation no evidence for pericardial effusion technically difficult study Definity precision microbubble contrast used to enhance endocardial border definition mibi 06/2016 (pers): non-diagnostic STs; large area inferior/inferolateral/ lateral scar; no ischemia; severe LV cavity dilation; global HK with akinesis of inferior/inferolat/lateral allan; EF 16% mibi 09/2014: large inf scar, mod anteroapical ischemia, lvef 25% tele: AFL HR ok. 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 occ episodes brief NSVT a/p: 62 m hx copd, cabgx3 2012, bio avr 2012, pad s/p b/l sfa occlusions, syst chf s/p medtronic icd, htn, hld, a-tach, here with back pain, sob. acute on chronic systolic CHF exacerbation: -recent dc for chf, was doing well but then stopped taking his lasix and other meds for several days and now back with acute chf (second recent admit for med noncompliance) -goal dry wt around 180lbs, on admission 197lbs -was on lasix 80 po daily at home. -05/28- on 80 iv lasix bid with dec Cr, weight down - 05/30 weight charted stable at 193 lbs, however patient says he was not weighed today, renal function improving, edema better - continue same lasix 80 mg IV BID - 05/31 wt unchanged at 193, above dry wt. poor diuretic response to lasix 80 iv per patient. he is well-compensated with JVD but no peripheral edema, no sob at rest, + L effusion on cxr. increase lasix to 100 iv bid, will give one time test dose metolazone 2.5 today. improved AF rate control, as disc 'd - 06/01: wt stable with increased lasix dose to 100 mg IV BID and one time metolazone. will give metolazone 5 mg x 1 prior to PM dose - 06/02: wt stable, dyspnea worsening. Cr rising today, d/w nephrology will continue same lasix 100 mg IV BID, increase metolazone and give prior to PM dose -06/03: No sig change in wt but pt pt reports sob a little better and he is laying flat in bed today comfortably. cont same lasix today. -cont metoprolol. 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 HR control suboptimal. - increase metoprolol to 150 mg BID, still having high rates -CHADS VASC 5. prohibitive falls risk, transferred to [facility] recently for evaluation--randomized in Watchman trial -s/p watchman device 04/20--discharged on aspirin and plavix for 3 months protocol. continue same NSVT - longest 24 beats, s/p ICD - increase metoprolol as above - replete lytes for K >4.0, Mg, >2.0 cad/hx of CABG 2012 -no recent angina/ischemia -no signs acs -trop chronically in intermediate range, no significant change in current value , trend for now -cont prior cad med regimen: asa, statin, bb, ccb bio avr: -nl fcn on echo 04/2018 CVA: -age indeterminate L thalamic stroke on CT here 03/2019 -now s/p Watchman device 04/2018, cont aspirin and plavix s/p icd: -no shocks -routine outpt monitoring htn: -bp stable -cont home meds
--- NOTE | 2018-06-03 11:36 | PN ---
Progress Note, Physician - Current Medication List Current Medications: Active Medications Acetaminophen (Tylenol -) 650 mg PO Q4H PRN PRN Reason: PAIN Last Admin: 06/02/18 21:12 Dose: 650 mg Albuterol/Ipratropium (Duoneb -) 1 amp NEB Q6H PRN PRN Reason: SHORTNESS OF BREATH Last Admin: 06/03/18 07:47 Dose: 1 amp Aspirin (Asa -) 81 mg PO DAILY [facility] Last Admin: 06/03/18 09:41 Dose: 81 mg Atorvastatin Calcium (Lipitor -) 40 mg PO HS [facility] Last Admin: 06/02/18 21:12 Dose: 40 mg Budesonide/Formoterol Fumarate (Symbicort 80/4.5mcg -) 2 puff IH BID [facility] Last Admin: 06/02/18 22:30 Dose: 2 puff Cholecalciferol (Vitamin D3 -) 2,000 unit PO DAILY [facility] Last Admin: 06/03/18 09:41 Dose: 2,000 unit Clopidogrel Bisulfate (Plavix -) 75 mg PO DAILY [facility] Last Admin: 06/02/18 10:08 Dose: 75 mg Collagenase (Santyl -) 1 applic TP DAILY [facility]; Protocol Last Admin: 06/02/18 10:09 Dose: 1 applic Cyclobenzaprine HCl (Cyclobenzaprine Hcl) 5 mg PO HS [facility] Last Admin: 06/02/18 22:30 Dose: 5 mg Docusate Sodium (Colace -) 100 mg PO TID [facility] Last Admin: 06/03/18 06:54 Dose: Not Given Furosemide (Lasix Injection -) 100 mg IVPB BID@0600,1400 [facility] Last Admin: 06/03/18 06:53 Dose: 100 mg Heparin Sodium (Porcine) (Heparin -) 5,000 unit SQ BID [facility] Last Admin: 06/03/18 09:45 Dose: Not Given Ceftriaxone Sodium 2 gm/ (Dextrose) 100 mls @ 200 mls/hr IVPB DAILY [facility]; Protocol Last Admin: 06/03/18 09:53 Dose: 200 mls/hr Insulin Aspart (Novolog Vial Sliding Scale -) 1 vial SQ ACHS [facility]; Protocol Last Admin: 06/03/18 06:57 Dose: Not Given Lactulose (Cephulac (Oral Use)) 20 gm PO DAILY [facility] Last Admin: 02/28/19 09:45 Dose: Not Given Metoprolol Succinate (Toprol Xl -) 150 mg PO BID [facility] Last Admin: 06/03/18 09:44 Dose: 150 mg Ranitidine HCl (Zantac -) 150 mg PO [facility] Last Admin: 06/02/18 21:12 Dose: 150 mg - Objective Vital Signs: Vital Signs Temperature 97.4 F L 06/03/18 06:00 Pulse Rate 112 H 06/03/18 06:00 Respiratory Rate 20 06/03/18 06:00 Blood Pressure 140/90 06/03/18 06:00 O2 Sat by Pulse Oximetry (%) 98 06/02/18 21:00 Labs: CBC, BMP 06/03/18 05:30 06/03/18 05:30 INR, PTT INR 1.58 (0.83-1.09) H 05/28/18 02:29
--- NOTE | 2018-06-03 11:47 | PN ---
Physical Exam: SUBJECTIVE: Patient seen and examined breathing at base line edema in legs improving OBJECTIVE: Vital Signs Period Temp Pulse Resp BP Sys/El Pulse Ox Last 24 Hr 97.4 F-98.8 F 98-120 18-20 116-144/67-92 98 GENERAL: Awake, alert, and fully oriented, in acute distress. HEAD: Normal with no signs of trauma. EYES: Pupils equal, round and reactive to light, EARS, NOSE, THROAT: Moist mucous membranes. NECK: Normal range of motion, supple without lymphadenopathy, JVP distended , or masses. LUNGS: Bb/l air entry present,mild crackels b/l ABDOMEN: Soft, nontender, not distended, normoactive bowel sounds, no guarding, no rebound, no masses. UPPER EXTREMITIES: 2+ pulses, warm, well-perfused. LOWER EXTREMITIES: pitting edema B/l, dry to wet gangrene present on left foot, dusky color present, line of demarcation present, no foul smell PSYCHIATRIC: Cooperative. SKIN: Warm, dry, Laboratory Results - last 24 hr 06/02/18 06/02/18 06/02/18 12:27 16:00 17:49 WBC RBC Hgb Hct MCV MCH MCHC RDW Plt Count MPV Absolute Neuts (auto) Neutrophils % Lymphocytes % Monocytes % Eosinophils % Basophils % Nucleated RBC % Sodium Potassium Chloride Carbon Dioxide Anion Gap BUN Creatinine Creat Clearance w eGFR POC Glucometer 162 229 Random Glucose Calcium Magnesium Total Bilirubin AST ALT Alkaline Phosphatase Total Protein Albumin Blood Type O NEGATIVE Antibody Screen Negative 06/02/18 06/03/18 06/03/18 21:11 05:30 05:30 WBC 12.7 H RBC 3.70 L Hgb 11.4 L Hct 35.0 L MCV 94.5 MCH 30.9 MCHC 32.7 RDW 21.4 H Plt Count 298 MPV 9.0 Absolute Neuts (auto) 10.0 H Neutrophils % 78.6 Lymphocytes % 7.4 L D Monocytes % 9.2 Eosinophils % 3.6 Basophils % 1.2 Nucleated RBC % 0 Sodium 133 L Potassium 3.7 Chloride 92 L Carbon Dioxide 30 Anion Gap 11 BUN 67 H Creatinine 2.6 H Creat Clearance w eGFR 25.14 POC Glucometer 213 Random Glucose 104 Calcium 7.5 L Magnesium 2.1 Total Bilirubin 0.6 AST 40 H ALT 13 Alkaline Phosphatase 169 H Total Protein 5.4 L Albumin 1.9 L Blood Type Antibody Screen 06/03/18 06:56 WBC RBC Hgb Hct MCV MCH MCHC RDW Plt Count MPV Absolute Neuts (auto) Neutrophils % Lymphocytes % Monocytes % Eosinophils % Basophils % Nucleated RBC % Sodium Potassium Chloride Carbon Dioxide Anion Gap BUN Creatinine Creat Clearance w eGFR POC Glucometer 110 Random Glucose Calcium Magnesium Total Bilirubin AST ALT Alkaline Phosphatase Total Protein Albumin Blood Type Antibody Screen Active Medications Generic Name Dose Route Start Last Admin Trade Name Williamq PRN Reason Stop Dose Admin Acetaminophen 650 mg 05/29/18 15:41 06/02/18 21:12 Tylenol - PO 650 mg Q4H PRN Administration PAIN Albuterol/Ipratropium 1 amp 05/28/18 11:38 06/03/18 07:47 Duoneb - NEB 1 amp Q6H PRN Administration SHORTNESS OF BREATH Aspirin 81 mg 05/28/18 11:38 06/03/18 09:41 Asa - PO 81 mg DAILY MANJU Administration Atorvastatin Calcium 40 mg 05/28/18 22:00 06/02/18 21:12 Lipitor - PO 40 mg HS MANJU Administration Budesonide/Formoterol Fumarate 2 puff 05/28/18 22:00 06/02/18 22:30 Symbicort 80/4.5mcg - IH 2 puff BID MANJU Administration Cholecalciferol 2,000 unit 05/29/18 10:00 06/03/18 09:41 Vitamin D3 - PO 2,000 unit DAILY MNAJU Administration Clopidogrel Bisulfate 75 mg 05/28/18 11:38 06/02/18 10:08 Plavix - PO 75 mg DAILY MANJU Administration Collagenase 1 applic 05/31/18 10:00 06/02/18 10:09 Santyl - TP 1 applic DAILY MANJU Administration Protocol Cyclobenzaprine HCl 5 mg 05/28/18 22:00 06/02/18 22:30 Cyclobenzaprine Hcl PO 5 mg HS MANJU Administration Docusate Sodium 100 mg 05/28/18 14:00 06/03/18 06:54 Colace - PO Not Given TID MANJU Furosemide 100 mg 05/31/18 10:36 06/03/18 06:53 Lasix Injection - IVPB 100 mg BID@0600,1400 MANJU Administration Heparin Sodium (Porcine) 5,000 unit 05/28/18 22:00 06/03/18 09:45 Heparin - SQ Not Given BID MANJU Ceftriaxone Sodium 2 gm/ 100 mls @ 200 mls/hr 06/02/18 14:15 06/03/18 09:53 Dextrose IVPB 200 mls/hr DAILY MANJU Administration Protocol Insulin Aspart 1 vial 05/28/18 16:30 06/03/18 06:57 Novolog Vial Sliding Scale - SQ Not Given ACHS [facility] Protocol Lactulose 20 gm 06/01/18 10:00 06/03/18 09:45 Cephulac (Oral Use) PO Not Given DAILY MANJU Metoprolol Succinate 150 mg 06/02/18 13:46 06/03/18 09:44 Toprol Xl - PO 150 mg BID MANJU Administration Ranitidine HCl 150 mg 05/28/18 22:00 06/02/18 21:12 Zantac - PO 150 mg HS MANJU Administration ASSESSMENT/PLAN: (1) Acute exacerbation of CHF (congestive heart failure) UO 300 Monitor vitals monior intake ouput IV lasix 100 mg bid low salt diet keep head end elevated daily weight/ cariology on case metoprolol xl 150 bid 2) PVD with dry to wet gangrene duplex arterial scan pending. Requested radiology to expedite the procedure. Discussed with nephrology: pt is not a candidate for CTA as he has both renal and cardiac failure. pt is going to get blood vessel study with co2 today vascular surgery on case pt on aspirin and plavix antibiotics as per ID 3 Hyperkalemia resolved 4 Troponemia; likely demand or can be in setting of ckd 5 COPD (chronic obstructive pulmonary disease) chronic, O2 dependent continue nebs symbicort. no wheezing (6) Atrial fib/CAD hr 112 s/p watchman's device 04/2018 metoprolol xl 150 bid continue asa/plavix x 3 months continue statin cardiac monitoring cardiology following (7) Chronic kidney disease (CKD) cr increasing likely from cardiorenal syndrome monitor cr avoid nephrtoxic drugs (8) Diabetes hold oral hypoglycemia started on insulin sliding scale bgm monitoring (6) HTN (hypertension) -controlled (9 ) Low back pain -chronic -PT -analgesics prn - continue cyclobenzaprine (8) Anemia in chronic kidney disease Hb stable Fluid: orally allowed : free water intake< 1L electrolyte:repeat in am nutrition: low salt and fat diet dvt pro heparin sq gi pro zantac Visit type - Emergency Visit Emergency Visit: Yes ED Registration Date: 05/28/18 Care time: The patient presented to the Emergency Department on the above date and was hospitalized for further evaluation of their emergent condition. - New Patient This patient is new to me today: No - Critical Care Critical Care patient: No
[2018-06-03] MEDS ORDERED: HEPARIN NA (PORCINE) 5,000 UNITS/ML 1ML VIAL ONE (12:30)
[2018-06-03] MEDS ORDERED: LIDOCAINE HCL 1%, 10 MG/ML (20ML VIAL) ONE (12:30)
[2018-06-03] MEDS ORDERED: ONDANSETRON 4 MG/2 ML VIAL IVPUSH PRN (14:32)
[2018-06-03] MEDS ORDERED: MIDAZOLAM HCL 2 MG/2 ML SINGLE DOSE VIAL ONE (14:55)
--- NOTE | 2018-06-03 16:16 | PN ---
Progress Note (short form) - Note Progress Note: Vascular Surgery Pt seen and examined. Pt was on the OR table today, and had runs of Vtach. Anesthesia took pt off the table. Please optimize if possible. Left foot gangrene. Will rebook when better. Arsen Rousseau DO
[2018-06-03] MEDS ORDERED: POTASSIUM CHLORIDE TABS 20 MEQ TABLET.ER (FP) PO ONE (16:40)
--- NOTE | 2018-06-03 16:40 | PN ---
Progress Note, Physician History of Present Illness: Pt seen and examined at bedside. He still has shortness of breath and lower ext edema. OR was cancelled secondary to runs of v-tach. - Current Medication List Current Medications: Active Medications Acetaminophen (Tylenol -) 650 mg PO Q4H PRN PRN Reason: PAIN Last Admin: 06/02/18 21:12 Dose: 650 mg Albuterol/Ipratropium (Duoneb -) 1 amp NEB Q6H PRN PRN Reason: SHORTNESS OF BREATH Last Admin: 06/03/18 07:47 Dose: 1 amp Aspirin (Asa -) 81 mg PO DAILY [facility] Last Admin: 06/03/18 09:41 Dose: 81 mg Atorvastatin Calcium (Lipitor -) 40 mg PO HS [facility] Last Admin: 06/02/18 21:12 Dose: 40 mg Budesonide/Formoterol Fumarate (Symbicort 80/4.5mcg -) 2 puff IH BID [facility] Last Admin: 06/03/18 10:10 Dose: 2 puff Cholecalciferol (Vitamin D3 -) 2,000 unit PO DAILY [facility] Last Admin: 06/03/18 09:41 Dose: 2,000 unit Clopidogrel Bisulfate (Plavix -) 75 mg PO DAILY [facility] Last Admin: 06/02/18 10:08 Dose: 75 mg Collagenase (Santyl -) 1 applic TP DAILY [facility]; Protocol Last Admin: 06/03/18 10:10 Dose: 1 applic Cyclobenzaprine HCl (Cyclobenzaprine Hcl) 5 mg PO HS [facility] Last Admin: 06/02/18 22:30 Dose: 5 mg Docusate Sodium (Colace -) 100 mg PO TID [facility] Last Admin: 06/03/18 06:54 Dose: Not Given Fentanyl (Sublimaze Injection -) 25 mcg IVPUSH [id number] PRN PRN Reason: PAIN-PACU ORDER X 4 DOSES ONLY Furosemide (Lasix Injection -) 100 mg IVPB BID@0600,1400 [facility] Last Admin: 06/03/18 13:53 Dose: 100 mg Heparin Sodium (Porcine) (Heparin -) 5,000 unit SQ BID [facility] Last Admin: 06/03/18 09:45 Dose: Not Given Ceftriaxone Sodium 2 gm/ (Dextrose) 100 mls @ 200 mls/hr IVPB DAILY [facility]; Protocol Last Admin: 02/28/19 09:53 Dose: 200 mls/hr Insulin Aspart (Novolog Vial Sliding Scale -) 1 vial SQ ACHS [facility]; Protocol Last Admin: 06/03/18 12:10 Dose: Not Given Lactulose (Cephulac (Oral Use)) 20 gm PO DAILY [facility] Last Admin: 06/03/18 09:45 Dose: Not Given Metoprolol Succinate (Toprol Xl -) 150 mg PO BID [facility] Last Admin: 06/03/18 09:44 Dose: 150 mg Ondansetron HCl (Zofran Injection) 4 mg IVPUSH Q6H PRN PRN Reason: NAUSEA AND/OR VOMITING Ranitidine HCl (Zantac -) 150 mg PO HS [facility] Last Admin: 06/02/18 21:12 Dose: 150 mg - Objective Vital Signs: Vital Signs Temperature 97.9 F 06/03/18 14:00 Pulse Rate 120 H 06/03/18 14:00 Respiratory Rate 20 06/03/18 14:00 Blood Pressure 117/72 06/03/18 14:00 O2 Sat by Pulse Oximetry (%) 98 06/03/18 09:00 Constitutional: Yes: Anxious Eyes: Yes: Conjunctiva Clear HENT: Yes: Atraumatic Cardiovascular: Yes: S1, S2 Respiratory: Yes: On Nasal O2 Gastrointestinal: Yes: Soft Genitourinary: Yes: WNL Musculoskeletal: Yes: Muscle Weakness Edema: Yes Edema: LLE: 2+, RLE: 2+ Neurological: Yes: Oriented Psychiatric: Yes: Oriented Labs: CBC, BMP 06/03/18 05:30 06/03/18 05:30 INR, PTT INR 1.58 (0.83-1.09) H 05/28/18 02:29 Assessment/Plan Current Medications Generic Name Dose Route Start Last Admin Trade Name Freq PRN Reason Stop Dose Admin Acetaminophen 650 mg 05/29/18 15:41 06/02/18 21:12 Tylenol - PO 650 mg Q4H PRN Administration PAIN Albuterol/Ipratropium 1 amp 05/28/18 11:38 06/03/18 07:47 Duoneb - NEB 1 amp Q6H PRN Administration SHORTNESS OF BREATH Aspirin 81 mg 05/28/18 11:38 06/03/18 09:41 Asa - PO 81 mg DAILY [facility] Administration Atorvastatin Calcium 40 mg 05/28/18 22:00 06/02/18 21:12 Lipitor - PO 40 mg HS MANJU Administration Budesonide/Formoterol Fumarate 2 puff 05/28/18 22:00 06/03/18 10:10 Symbicort 80/4.5mcg - IH 2 puff BID [facility] Administration Cholecalciferol 2,000 unit 05/29/18 10:00 06/03/18 09:41 Vitamin D3 - PO 2,000 unit DAILY MANJU Administration Clopidogrel Bisulfate 75 mg 05/28/18 11:38 06/02/18 10:08 Plavix - PO 75 mg DAILY [facility] Administration Collagenase 1 applic 05/31/18 10:00 06/03/18 10:10 Santyl - TP 1 applic DAILY [facility] Administration Protocol Cyclobenzaprine HCl 5 mg 05/28/18 22:00 06/02/18 22:30 Cyclobenzaprine Hcl PO 5 mg HS [facility] Administration Docusate Sodium 100 mg 05/28/18 14:00 06/03/18 06:54 Colace - PO Not Given TID [facility] Fentanyl 25 mcg 06/03/18 14:32 Sublimaze Injection - IVPUSH [id number] PRN PAIN-PACU ORDER X 4 DOSES ONLY Furosemide 100 mg 05/31/18 10:36 06/03/18 13:53 Lasix Injection - IVPB 100 mg BID@0600,1400 [facility] Administration Heparin Sodium (Porcine) 5,000 unit 05/28/18 22:00 06/03/18 09:45 Heparin - SQ Not Given BID [facility] Ceftriaxone Sodium 2 gm/ 100 mls @ 200 mls/hr 06/02/18 14:15 06/03/18 09:53 Dextrose IVPB 200 mls/hr DAILY [facility] Administration Protocol Insulin Aspart 1 vial 05/28/18 16:30 06/03/18 12:10 Novolog Vial Sliding Scale - SQ Not Given ACHS [facility] Protocol Lactulose 20 gm 06/01/18 10:00 06/03/18 09:45 Cephulac (Oral Use) PO Not Given DAILY [facility] Metoprolol Succinate 150 mg 06/02/18 13:46 06/03/18 09:44 Toprol Xl - PO 150 mg BID [facility] Administration Ondansetron HCl 4 mg 06/03/18 14:32 Zofran Injection IVPUSH Q6H PRN NAUSEA AND/OR VOMITING Ranitidine HCl 150 mg 05/28/18 22:00 06/02/18 21:12 Zantac - PO 150 mg HS MANJU Administration Impression 1. CKD 2. proteinuria 3. CAD 4. CHF 5. COPD 6. DM 7. HTN 8. azotemia/fior 9. anemia 10. PVD Plan - cont with lasix - repeat labs in a - will give a dose of potassium - vascular input appreciated - pt is clinically doing poorly - cardio follow up
--- NOTE | 2018-06-03 16:51 | EKG ---
Test Reason : Blood Pressure : / mmHG Vent. Rate : 063 BPM Atrial Rate : 238 BPM P-R Int : 000 ms QRS Dur : 210 ms QT Int : 550 ms P-R-T Axes : 000 270 085 degrees QTc Int : 562 ms Ventricular-paced rhythm WITH PREMATURE VENTRICULAR OR ABERRANTLY CONDUCTED COMPLEXES ABNORMAL ECG WHEN COMPARED WITH ECG OF 28-MAY-2018 09:17, PREVIOUS ECG HAS UNDETERMINED RHYTHM, NEEDS REVIEW Confirmed by SOFIA PATTERSON, FLORA ([id number]) on 06/03/2018 4:51:10 PM Referred By: LIVIA LAGOS Confirmed By:FLORA BLACK MD
[2018-06-03] MEDS: CLOPIDOGREL BISULFATE 75 MG TABLET (FP) PO SCH (17:40)
[2018-06-03] MEDS: ACETAMINOPHEN 325 MG TABLET (FP) PO PRN (22:16)
[2018-06-03] MEDS: ATORVASTATIN CA 40 MG TABLET (FP) PO SCH (22:17)
[2018-06-03] MEDS: CYCLOBENZAPRINE HCL 5 MG TABLET PO SCH (22:17)
[2018-06-03] MEDS: RANITIDINE HCL 150 MG TABLET (FP) PO SCH (22:18)
[2018-06-04] MEDS: FUROSEMIDE 100 MG/10 ML INJECTABLE VIAL IVPB SCH (05:42)
[2018-06-04] MEDS: DOCUSATE SODIUM 100 MG CAPSULE (FP) PO SCH ×3 (05:42→21:57)
[2018-06-04] MEDS: ALBUTEROL SO4 2.5/IPRATROPIUM 0.5 INH SOL 3 ML VIAL.NEB. NEB PRN (06:10)
[2018-06-04] MEDS: INSULIN SLIDING SCALE (NOVOLOG) 1 VIAL SQ SCH ×4 (06:48→22:04)
[2018-06-04 07:04] LABS: BASO % 0.7 % (0-2.0); HEMATOCRIT 37.9 % (35.4-49); HEMOGLOBIN 12.7 GM/dL (11.7-16.9); LYMPH % 10.6 % (8-40); MCH 31.7 pg (25.7-33.7); MCHC 33.4 g/dl (32.0-35.9); MEAN PLT VOLUME 9.3 fl (7.5-11.1); MONO % 9.6 % (3.8-10.2); NEUT % 77.1 % (42.8-82.8); PLATELET COUNT 290 K/MM3 (134-434); RBC 3.99 M/mm3 (4.00-5.60); RDW 21.5 % (11.9-15.9); WHITE BLOOD COUNT 12.6 K/mm3 (4.0-10.0)
[2018-06-04 08:12] LABS: ANION GAP 14 MMOL/L (8-16); BLOOD UREA NITROGEN 76 mg/dL (7-18); CALCIUM 7.4 mg/dL (8.5-10.1); CHLORIDE 92 mmol/L (98-107); CO2 28 mmol/L (21-32); GLUCOSE,RANDOM 158 mg/dL (74-106); POTASSIUM 3.8 mmol/L (3.5-5.1); SODIUM 134 mmol/L (136-145)
[2018-06-04] MEDS ORDERED: DEXTROSE 5%-WATER 100 ML IVPB ONE (08:52)
--- NOTE | 2018-06-04 09:00 | PN ---
Teaching Attending Note Name of Resident: Rafael Lieberman ATTENDING PHYSICIAN STATEMENT I saw and evaluated the patient. I reviewed the resident's note and discussed the case with the resident. I agree with the resident's findings and plan as documented. SUBJECTIVE: Patient feels improved LE swelling is improving OBJECTIVE: Vital Signs Temperature 97.1 F L 06/04/18 02:00 Pulse Rate 114 H 06/04/18 05:53 Respiratory Rate 20 06/04/18 05:53 Blood Pressure 131/66 06/04/18 05:53 O2 Sat by Pulse Oximetry (%) 100 06/03/18 21:00 Middle aged man c/o SOB HEENT: Mm moist, no anemia, PERRLA EOMI NECK:No JVd No Bruit CHEST:CTA B/L CVS:S1S2 IR no SM/g/r ABD:No distention, non tender Bs EXT:Left LE dry to wet gangrene of toes EDUCATIONAL THERAPIST: AOX3 non focal CBC, BMP 06/04/18 05:30 06/04/18 05:30 Active Medications Acetaminophen (Tylenol -) 650 mg PO Q4H PRN PRN Reason: PAIN Last Admin: 06/03/18 22:16 Dose: 650 mg Albuterol/Ipratropium (Duoneb -) 1 amp NEB Q6H PRN PRN Reason: SHORTNESS OF BREATH Last Admin: 06/04/18 06:10 Dose: 1 amp Aspirin (Asa -) 81 mg PO DAILY [facility] Last Admin: 06/03/18 09:41 Dose: 81 mg Atorvastatin Calcium (Lipitor -) 40 mg PO HS [facility] Last Admin: 06/03/18 22:17 Dose: 40 mg Budesonide/Formoterol Fumarate (Symbicort 80/4.5mcg -) 2 puff IH BID [facility] Last Admin: 06/03/18 22:27 Dose: 2 puff Cholecalciferol (Vitamin D3 -) 2,000 unit PO DAILY [facility] Last Admin: 06/03/18 09:41 Dose: 2,000 unit Clopidogrel Bisulfate (Plavix -) 75 mg PO DAILY [facility] Last Admin: 06/03/18 17:40 Dose: 75 mg Collagenase (Santyl -) 1 applic TP DAILY [facility]; Protocol Last Admin: 06/03/18 10:10 Dose: 1 applic Cyclobenzaprine HCl (Cyclobenzaprine Hcl) 5 mg PO HS [facility] Last Admin: 06/03/18 22:17 Dose: 5 mg Docusate Sodium (Colace -) 100 mg PO TID [facility] Last Admin: 06/04/18 05:42 Dose: 100 mg Fentanyl (Sublimaze Injection -) 25 mcg IVPUSH [id number] PRN PRN Reason: PAIN-PACU ORDER X 4 DOSES ONLY Furosemide (Lasix Injection -) 100 mg IVPB BID@0600,1400 [facility] Last Admin: 06/04/18 05:42 Dose: 100 mg Heparin Sodium (Porcine) (Heparin -) 5,000 unit SQ BID [facility] Last Admin: 06/03/18 22:17 Dose: 5,000 unit Ceftriaxone Sodium 2 gm/ (Dextrose) 100 mls @ 200 mls/hr IVPB DAILY [facility]; Protocol Last Admin: 06/03/18 09:53 Dose: 200 mls/hr Insulin Aspart (Novolog Vial Sliding Scale -) 1 vial SQ ACHS [facility]; Protocol Last Admin: 06/04/18 06:48 Dose: 2 units Lactulose (Cephulac (Oral Use)) 20 gm PO DAILY [facility] Last Admin: 06/03/18 09:45 Dose: Not Given Metoprolol Succinate (Toprol Xl -) 150 mg PO BID [facility] Last Admin: 06/03/18 22:17 Dose: 150 mg Ondansetron HCl (Zofran Injection) 4 mg IVPUSH Q6H PRN PRN Reason: NAUSEA AND/OR VOMITING Ranitidine HCl (Zantac -) 150 mg PO HS [facility] Last Admin: 06/03/18 22:18 Dose: 150 mg ASSESSMENT AND PLAN:62 yrs old F multiple medical Co-morbidities H/O CHF, HTN, T2DM, CKD stage 3, PAD, Afib watchman [place] in 2018 at [facility] , AICD for NSVT, Bioprosthetic AVR, MR chelsea historian present with decompensated CHF with worsening LE swelling and SOB, patient has Left LE gangrene waiting arterial Doppler. PLan; patient is improving on current management yesterday had illsustained VT on the tablke so LE angiogram cancealed, patient is hemodynamically stable s/ p AICD, discussed with Marine Services Technician recommonded change the diuretics for optimization of Diuresis. Problem List - Problems (1) Acute exacerbation of CHF (congestive heart failure) Assessment/Plan: Due to non compliance with diuretic dry weight 180 on IV Lasix, B Blockers for rate controlled cardiology and Nephrology, low salt Diet F/U IN/Op and BMP , on IV Lasix and milrinone drip Code(s): I50.9 - HEART FAILURE, UNSPECIFIED Qualifiers: Heart failure type: unspecified Qualified Code(s): I50.9 - Heart failure, unspecified (2) Chronic kidney disease (CKD) Assessment/Plan: Due to diabetic neuropathy renal functions are at abse line F/U BMP and renal recommondations. Code(s): N18.9 - CHRONIC KIDNEY DISEASE, UNSPECIFIED Qualifiers: Chronic kidney disease stage: stage 4 (severe) Qualified Code(s): N18.4 - Chronic kidney disease, stage 4 (severe) (3) Afib Assessment/Plan: Poorly rate controlled incresed B Blockers to optimize HR s/o Watchman Device on ASA and Plavix. Code(s): I48.91 - UNSPECIFIED ATRIAL FIBRILLATION Qualifiers: Atrial fibrillation type: chronic Qualified Code(s): I48.2 - Chronic atrial fibrillation (4) COPD (chronic obstructive pulmonary disease) Assessment/Plan: Cont advair and Duoneb PRN Code(s): J44.9 - CHRONIC OBSTRUCTIVE PULMONARY DISEASE, UNSPECIFIED Qualifiers: COPD type: COPD with acute exacerbation Qualified Code(s): J44.1 - Chronic obstructive pulmonary disease with (acute) exacerbation (5) Diabetes mellitus with chronic kidney disease Assessment/Plan: On Insulin optimize glycemic control Code(s): E11.22 - TYPE 2 DIABETES MELLITUS W DIABETIC CHRONIC KIDNEY DISEASE; N18.9 - CHRONIC KIDNEY DISEASE, UNSPECIFIED Qualifiers: Diabetes mellitus type: type 2 Chronic kidney disease stage: stage 3 ( moderate) (6) Gangrene Code(s): I96 - GANGRENE, NOT ELSEWHERE CLASSIFIED
[2018-06-04] MEDS: CEFTRIAXONE 2 GM in DEXTROSE 5%-WATER 100 ML IVPB SCH (10:11)
[2018-06-04] MEDS: ACETAMINOPHEN 325 MG TABLET (FP) PO PRN ×2 (10:17→21:56)
[2018-06-04] MEDS: CLOPIDOGREL BISULFATE 75 MG TABLET (FP) PO SCH (10:17)
[2018-06-04] MEDS: CHOLECALCIFEROL (VITAMIN D3) 1,000 UNIT TABLET (FP) PO SCH (10:17)
[2018-06-04] MEDS: HEPARIN NA (PORCINE) 5,000 UNITS/ML 1ML VIAL SQ SCH (10:18)
[2018-06-04] MEDS: ASPIRIN 81 MG CHEWABLE TABLETS PO SCH (10:18)
[2018-06-04] MEDS: LACTULOSE 20 GM/30 ML UDC (FOR ORAL USE ONLY) PO SCH (10:19)
[2018-06-04] MEDS: BUDESONIDE/FORMETEROL FUMARATE 80/4.5 mcg INHALER IH SCH ×2 (10:19→22:00)
[2018-06-04] MEDS: COLLAGENASE CLOSTRIDIUM HIST. 30 GRAMS TUBE TP SCH (10:19)
--- NOTE | 2018-06-04 11:54 | PN ---
Progress Note (short form) - Note Progress Note: s: no chest pain, palps, dizziness. +sob and le edema ex cigs Current Medications Generic Name Dose Route Start Last Admin Trade Name Ghada PRN Reason Stop Dose Admin Acetaminophen 650 mg 05/29/18 15:41 06/04/18 10:17 Tylenol - PO 650 mg Q4H PRN Administration PAIN Albuterol/Ipratropium 1 amp 05/28/18 11:38 06/04/18 06:10 Duoneb - NEB 1 amp Q6H PRN Administration SHORTNESS OF BREATH Aspirin 81 mg 05/28/18 11:38 06/04/18 10:18 Asa - PO 81 mg DAILY MANJU Administration Atorvastatin Calcium 40 mg 05/28/18 22:00 06/03/18 22:17 Lipitor - PO 40 mg HS MANJU Administration Budesonide/Formoterol Fumarate 2 puff 05/28/18 22:00 06/04/18 10:19 Symbicort 80/4.5mcg - IH 2 puff BID MANJU Administration Cholecalciferol 2,000 unit 05/29/18 10:00 06/04/18 10:17 Vitamin D3 - PO 2,000 unit DAILY MANJU Administration Clopidogrel Bisulfate 75 mg 05/28/18 11:38 06/04/18 10:17 Plavix - PO 75 mg DAILY MANJU Administration Collagenase 1 applic 05/31/18 10:00 06/04/18 10:19 Santyl - TP 1 applic DAILY MANJU Administration Protocol Cyclobenzaprine HCl 5 mg 05/28/18 22:00 06/03/18 22:17 Cyclobenzaprine Hcl PO 5 mg HS MANJU Administration Docusate Sodium 100 mg 05/28/18 14:00 06/04/18 05:42 Colace - PO 100 mg TID MANJU Administration Fentanyl 25 mcg 06/03/18 14:32 Sublimaze Injection - IVPUSH [id number] PRN PAIN-PACU ORDER X 4 DOSES ONLY Heparin Sodium (Porcine) 5,000 unit 05/28/18 22:00 06/04/18 10:18 Heparin - SQ 5,000 unit BID MANJU Administration Ceftriaxone Sodium 2 gm/ 100 mls @ 200 mls/hr 06/02/18 14:15 06/04/18 10:11 Dextrose IVPB 200 mls/hr DAILY MANJU Administration Protocol Milrinone Lactate/Dextrose 20,000 mcg in 100 mls @ 6.559 mls/hr 06/04/18 12: 00 Milrinone 20mg/100ml Ivpb - IVPB TITR MANJU 0.25 MCG/KG/MIN Furosemide 100 mg/ Sodium 100 mls @ 7.5 mls/hr 06/04/18 14:00 Chloride IVPB ASDIR MANJU Insulin Aspart 1 vial 05/28/18 16:30 06/04/18 11:40 Novolog Vial Sliding Scale - SQ 4 units ACHS MANJU Administration Protocol Lactulose 20 gm 06/01/18 10:00 06/04/18 10:19 Cephulac (Oral Use) PO Not Given DAILY MANJU Metoprolol Succinate 150 mg 06/02/18 13:46 06/04/18 10:16 Toprol Xl - PO 150 mg BID MANUJ Administration Ondansetron HCl 4 mg 06/03/18 14:32 Zofran Injection IVPUSH Q6H PRN NAUSEA AND/OR VOMITING Ranitidine HCl 150 mg 05/28/18 22:00 06/03/18 22:18 Zantac - PO 150 mg HS MANJU Administration - Objective Vital Signs Temp 97.1 F L 06/04/18 02:00 Pulse 114 H 06/04/18 05:53 Resp 20 06/04/18 05:53 BP 131/66 06/04/18 05:53 Pulse Ox 100 06/03/18 21:00 Intake & Output 06/03/18 06/03/18 06/04/18 11:59 23:59 11:59 Intake Total 460 165 910 Output Total 200 Balance 260 165 910 Weight 193 lb 192 lb 12.8 oz Intake: IV 65 NS 40 IVPB 100 100 50 Oral 360 860 Output: Urine 200 Void 200 Other: Voiding Method Incontinent Urinal Urinal # Unmeasured Voids Void 1 2 Weight Measurement Method Standing Scale Standing Scale Constitutional: Yes: No Distress, Calm Eyes: No: Sclera Icterus HENT: No: Nasal Congestion Cardiovascular: Yes: Regular Rate and Rhythm, JVD (to jaw), S1, S2, Other (PMI non diplaced). No: Gallop, Murmur Respiratory: Yes: CTA Bilaterally, Diminished (L base). No: Accessory Muscle Use, Rales, Wheezes Gastrointestinal: Yes: Normal Bowel Sounds, Soft. No: Tenderness Musculoskeletal: Yes: Other (No kyphosis) Extremities: No: Cold Edema: 1+ le edema bl Integumentary: No: Jaundice, gangrene of left toes, no diaphoresis Neurological: Yes: Alert, Oriented (x3) Psychiatric: No: Agitated Laboratory Last Values WBC 12.6 K/mm3 (4.0-10.0) H 06/04/18 05:30 RBC 3.99 M/mm3 (4.00-5.60) L 06/04/18 05:30 Hgb 12.7 GM/dL (11.7-16.9) 06/04/18 05:30 Hct 37.9 % (35.4-49) 06/04/18 05:30 MCV 95.0 fl (80-96) 06/04/18 05:30 MCH 31.7 pg (25.7-33.7) 06/04/18 05:30 MCHC 33.4 g/dl (32.0-35.9) 06/04/18 05:30 RDW 21.5 % (11.9-15.9) H 06/04/18 05:30 Plt Count 290 K/MM3 (134-434) 06/04/18 05:30 MPV 9.3 fl (7.5-11.1) 06/04/18 05:30 Absolute Neuts (auto) 9.7 K/mm3 (1.5-8.0) H 06/04/18 05:30 Neutrophils % 77.1 % (42.8-82.8) 06/04/18 05:30 Neutrophils % (Manual) 89.0 % (42.8-82.8) H 05/28/18 02:29 Band Neutrophils % 0.0 % 05/28/18 02:29 Lymphocytes % 10.6 % (8-40) D 06/04/18 05:30 Lymphocytes % (Manual) 4.0 % (8-40) L D 05/28/18 02:29 Monocytes % 9.6 % (3.8-10.2) 06/04/18 05:30 Monocytes % (Manual) 7 % (3.8-10.2) D 05/28/18 02:29 Eosinophils % 2.0 % (0-4.5) 06/04/18 05:30 Eosinophils % (Manual) 0.0 % (0-4.5) D 05/28/18 02:29 Basophils % 0.7 % (0-2.0) 06/04/18 05:30 Basophils % (Manual) 0.0 % (0-2.0) 05/28/18 02:29 Myelocytes % (Man) 0 % (0-2) D 05/28/18 02:29 Promyelocytes % (Man) 0 % (0-2) 05/28/18 02:29 Blast Cells % (Manual) 0 % (0-0) 05/28/18 02:29 Nucleated RBC % 0 % (0-0) 06/04/18 05:30 Metamyelocytes 0 % (0-2) 05/28/18 02:29 Hypochromia 0 06/01/18 05:30 Toxic Granulation 1+ 05/28/18 02:29 Platelet Estimate Normal 06/01/18 05:30 Polychromasia 1+ 06/01/18 05:30 Poikilocytosis 2+ 06/01/18 05:30 Anisocytosis 1+ 06/01/18 05:30 Microcytosis 0 06/01/18 05:30 Macrocytosis 1+ 06/01/18 05:30 Tear Drop Cells 1+ 06/01/18 05:30 Ovalocytes 1+ 06/01/18 05:30 Stomatocytes 1+ 06/01/18 05:30 Justin Cells 1+ 05/28/18 02:29 Acanthocytes (Spur) 1+ 05/28/18 02:29 Schistocytes 1+ 06/01/18 05:30 PT with INR 18.70 SEC (9.7-13.0) H 05/28/18 02:29 INR 1.58 (0.83-1.09) H 05/28/18 02:29 Sodium 134 mmol/L (136-145) L 06/04/18 05:30 Potassium 3.8 mmol/L (3.5-5.1) 06/04/18 05:30 Chloride 92 mmol/L (98-107) L 06/04/18 05:30 Carbon Dioxide 28 mmol/L (21-32) 06/04/18 05:30 Anion Gap 14 MMOL/L (8-16) 06/04/18 05:30 BUN 76 mg/dL (7-18) H 06/04/18 05:30 Creatinine 3.0 mg/dL (0.55-1.3) H 06/04/18 05:30 Creat Clearance w eGFR 21.31 (>60) 06/04/18 05:30 POC Glucometer 213 UNITS (80-120) 06/04/18 11:36 Random Glucose 158 mg/dL (74-106) H 06/04/18 05:30 Calcium 7.4 mg/dL (8.5-10.1) L 06/04/18 05:30 Phosphorus 3.7 mg/dL (2.5-4.9) 06/02/18 05:30 Magnesium 2.0 mg/dL (1.8-2.4) 06/04/18 05:30 Total Bilirubin 0.6 mg/dL (0.2-1) 06/03/18 05:30 AST 40 U/L (15-37) H 06/03/18 05:30 ALT 13 U/L (13-61) 06/03/18 05:30 Alkaline Phosphatase 169 U/L (45-117) H 06/03/18 05:30 Creatine Kinase 197 U/L (26-308) 05/28/18 02:29 Creatine Kinase Index 1.0 % (0.0-5.0) 05/28/18 02:29 CK-MB (CK-2) 2.0 ng/mL (0.5-3.6) 05/28/18 02:29 Troponin I 0.28 ng/ml (0.00-0.05) H 05/29/18 08:10 B-Natriuretic Peptide 29738.6 pg/ml (5-125) H 05/28/18 02:29 Total Protein 5.4 g/dl (6.4-8.2) L 06/03/18 05:30 Albumin 1.9 g/dl (3.4-5.0) L 06/03/18 05:30 Triglycerides 136 mg/dL (0-150) 05/29/18 08:10 Cholesterol 127 mg/dL (50-200) 05/29/18 08:10 Total LDL Cholesterol 71 mg/dL (5-100) 05/29/18 08:10 HDL Cholesterol 33 mg/dL (40-60) L 05/29/18 08:10 Blood Type O NEGATIVE 06/02/18 16:00 Antibody Screen Negative 06/02/18 16:00 Assessment/Plan ECG: AFL, V-P, PVCs, LVH, no sig change prior CXR: no sig change CT head: L thalamic infarct, unchanged from prior echo 06/2016: sev dec lvef, global hk, rv tds, trinity, mod-sev mr, mod tr, rvsp 50- 60 echo 06/2015: mild lve, mod-sev dec lvef, mod lae, nl rv size, mild dec rv fcn, mild-mod mr, mild tr, nl avr fcn, rvsp 30-40 04/14/18 ECHO MSH - moderate left ventricular dilatation overall severe decreased left ventricular systolic function (diffuse); estimated ejection fraction = 30 % The posterior wall is severely hypokinetic. Restrictive diastolic dysfunction normal right ventricular size moderate decreased right ventricular function aortic prosthesis (tissue) no evidence for aortic regurgitation moderate to severe mitral regurgitation mild to moderate tricuspid regurgitation moderate to severe pulmonary hypertension minimal pulmonic regurgitation no evidence for pericardial effusion technically difficult study Definity precision microbubble contrast used to enhance endocardial border definition mibi 06/2016 (pers): non-diagnostic STs; large area inferior/inferolateral/ lateral scar; no ischemia; severe LV cavity dilation; global HK with akinesis of inferior/inferolat/lateral allan; EF 16% mibi 09/2014: large inf scar, mod anteroapical ischemia, lvef 25% tele: AFL HR ok. 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 nsvt 5 beats a/p: 62 m hx copd, cabgx3 2012, bio avr 2012, pad s/p b/l sfa occlusions, syst chf s/p medtronic icd, htn, hld, a-tach, here with back pain, sob. acute on chronic systolic CHF exacerbation: -recent dc for chf, was doing well but then stopped taking his lasix and other meds for several days and now back with acute chf (second recent admit for med noncompliance) -goal dry wt around 180lbs, on admission 197lbs -was on lasix 80 po daily at home. -05/28- on 80 iv lasix bid with dec Cr, weight down - 05/30 weight charted stable at 193 lbs, however patient says he was not weighed today, renal function improving, edema better - continue same lasix 80 mg IV BID - 05/31 wt unchanged at 193, above dry wt. poor diuretic response to lasix 80 iv per patient. he is well-compensated with JVD but no peripheral edema, no sob at rest, + L effusion on cxr. increase lasix to 100 iv bid, will give one time test dose metolazone 2.5 today. improved AF rate control, as disc 'd - 06/01: wt stable with increased lasix dose to 100 mg IV BID and one time metolazone. will give metolazone 5 mg x 1 prior to PM dose - 06/02: wt stable, dyspnea worsening. Cr rising today, d/w nephrology will continue same lasix 100 mg IV BID, increase metolazone and give prior to PM dose -06/03: No sig change in wt but pt pt reports sob a little better and he is laying flat in bed today comfortably. cont same lasix today. -06/04: No sig improvement in vol status and cr worsening. Will start milrinone gtt and lasix gtt to see if can improve diuresis. check daily chem7 and wts. -cont metoprolol. not on ACEI due to h/o hyperkalemia mitral regurgitation: -likely functional MR, mild-mod on echo 06/19, then "mod-severe" when here 06/20 with suspected acute chf and pulm pressures up (though at risk for overestimation of MR severity on that echo report), mod to severe on echo at [facility] 04/2018 -reassess MR severity on echo as outpt--pt would be a candidate for transcatheter delmar-clip repair (per COAPT study data) if severe MR persists despite optimization of volume status and LV remodeling med regimen +/- STATION EXAMINER L foot gangrene, h/o PAD, CV preop eval: -wound care, abx per podiatry/vascular -angiogram planned when chf improves CKD: -baseline creatinine 2-2.5, now trending upwards above baseline. plans as above. -renal following atrial flutter: -pt in persistent AFL. HR control suboptimal. - increase metoprolol to 150 mg BID, still having high rates -CHADS VASC 5. prohibitive falls risk, [place]--randomized in Watchman trial -s/p watchman device 04/20--discharged on aspirin and plavix for 3 months protocol. continue same NSVT - longest 24 beats, s/p ICD - cont bb cad/hx of CABG 2012 -no recent angina/ischemia -no signs acs -trop chronically in intermediate range, no significant change in current value , trend for now -cont prior cad med regimen: asa, statin, bb, ccb bio avr: -nl fcn on echo 04/2018 CVA: -age indeterminate L thalamic stroke on CT here 03/2019 -now s/p Watchman device 04/2018, cont aspirin and plavix s/p icd: -no shocks -routine outpt monitoring htn: -bp stable -cont home meds
--- NOTE | 2018-06-04 14:15 | PN ---
Progress Note, Physician History of Present Illness: events noted leading to cancellation of surgery patient awake and alert no distress - Current Medication List Current Medications: Active Medications Acetaminophen (Tylenol -) 650 mg PO Q4H PRN PRN Reason: PAIN Last Admin: 06/04/18 10:17 Dose: 650 mg Albuterol/Ipratropium (Duoneb -) 1 amp NEB Q6H PRN PRN Reason: SHORTNESS OF BREATH Last Admin: 06/04/18 06:10 Dose: 1 amp Aspirin (Asa -) 81 mg PO DAILY [facility] Last Admin: 06/04/18 10:18 Dose: 81 mg Atorvastatin Calcium (Lipitor -) 40 mg PO HS [facility] Last Admin: 06/03/18 22:17 Dose: 40 mg Budesonide/Formoterol Fumarate (Symbicort 80/4.5mcg -) 2 puff IH BID [facility] Last Admin: 06/04/18 10:19 Dose: 2 puff Cholecalciferol (Vitamin D3 -) 2,000 unit PO DAILY [facility] Last Admin: 06/04/18 10:17 Dose: 2,000 unit Clopidogrel Bisulfate (Plavix -) 75 mg PO DAILY [facility] Last Admin: 06/04/18 10:17 Dose: 75 mg Collagenase (Santyl -) 1 applic TP DAILY [facility]; Protocol Last Admin: 06/04/18 10:19 Dose: 1 applic Cyclobenzaprine HCl (Cyclobenzaprine Hcl) 5 mg PO HS [facility] Last Admin: 06/03/18 22:17 Dose: 5 mg Docusate Sodium (Colace -) 100 mg PO TID [facility] Last Admin: 06/04/18 05:42 Dose: 100 mg Fentanyl (Sublimaze Injection -) 25 mcg IVPUSH P2CHEEONT PRN PRN Reason: PAIN-PACU ORDER X 4 DOSES ONLY Heparin Sodium (Porcine) (Heparin -) 5,000 unit SQ BID [facility] Last Admin: 06/04/18 10:18 Dose: 5,000 unit Ceftriaxone Sodium 2 gm/ (Dextrose) 100 mls @ 200 mls/hr IVPB DAILY [facility]; Protocol Last Admin: 06/04/18 10:11 Dose: 200 mls/hr Milrinone Lactate/Dextrose (Milrinone 20mg/100ml Ivpb -) 20,000 mcg in 100 mls @ 6.559 mls/hr IVPB TITR MANJU Furosemide 100 mg/ Sodium (Chloride) 100 mls @ 7.5 mls/hr IVPB ASDIR [facility] Insulin Aspart (Novolog Vial Sliding Scale -) 1 vial SQ ACHS [facility]; Protocol Last Admin: 06/04/18 11:40 Dose: 4 units Lactulose (Cephulac (Oral Use)) 20 gm PO DAILY [facility] Last Admin: 06/04/18 10:19 Dose: Not Given Metoprolol Succinate (Toprol Xl -) 150 mg PO BID [facility] Last Admin: 06/04/18 10:16 Dose: 150 mg Ondansetron HCl (Zofran Injection) 4 mg IVPUSH Q6H PRN PRN Reason: NAUSEA AND/OR VOMITING Ranitidine HCl (Zantac -) 150 mg PO HS [facility] Last Admin: 06/03/18 22:18 Dose: 150 mg - Objective Vital Signs: Vital Signs Temperature 97.1 F L 06/04/18 02:00 Pulse Rate 114 H 06/04/18 05:53 Respiratory Rate 20 06/04/18 05:53 Blood Pressure 131/66 06/04/18 05:53 O2 Sat by Pulse Oximetry (%) 100 06/03/18 21:00 Constitutional: Yes: No Distress, Calm Cardiovascular: Yes: S1, S2 Respiratory: Yes: Poor Air Entry, Other Gastrointestinal: Yes: Normal Bowel Sounds, Soft Musculoskeletal: Yes: WNL Extremities: Yes: Other (gangrene) Edema: LLE: 2+, RLE: 2+ Integumentary: Yes: Erythema, Other (gangrene of the left toes) Neurological: Yes: Alert, Oriented Psychiatric: Yes: Alert, Oriented Labs: CBC, BMP 06/04/18 05:30 06/04/18 05:30 INR, PTT INR 1.58 (0.83-1.09) H 05/28/18 02:29 Assessment/Plan Problem List - Problems (1) Acute exacerbation of CHF (congestive heart failure) Code(s): I50.9 - HEART FAILURE, UNSPECIFIED Qualifiers: Heart failure type: unspecified Qualified Code(s): I50.9 - Heart failure, unspecified (2) Afib Code(s): I48.91 - UNSPECIFIED ATRIAL FIBRILLATION Qualifiers: Atrial fibrillation type: chronic Qualified Code(s): I48.2 - Chronic atrial fibrillation (3) Carotid stenosis Code(s): I65.29 - OCCLUSION AND STENOSIS OF UNSPECIFIED CAROTID ARTERY (4) Chronic respiratory failure Code(s): J96.10 - CHRONIC RESPIRATORY FAILURE, UNSP W HYPOXIA OR HYPERCAPNIA (5) Hyperkalemia Code(s): E87.5 - HYPERKALEMIA (6) Troponin I above reference range Code(s): R74.8 - ABNORMAL LEVELS OF OTHER SERUM ENZYMES (7) Acute on chronic renal insufficiency Code(s): N28.9 - DISORDER OF KIDNEY AND URETER, UNSPECIFIED; N18.9 - CHRONIC KIDNEY DISEASE, UNSPECIFIED (8) Diabetes Code(s): E11.9 - TYPE 2 DIABETES MELLITUS WITHOUT COMPLICATIONS Qualifiers: Diabetes mellitus type: type 2 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: with penitentiary use Diabetes mellitus complication status: with kidney complications Diabetes mellitus complication detail: with chronic kidney disease Chronic kidney disease stage: stage 3 (moderate) Qualified Code(s): E11.22 - Type 2 diabetes mellitus with diabetic chronic kidney disease; N18.3 - Chronic kidney disease, stage 3 (moderate); Z79.4 - shelter (current) use of 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 plan podiatry on case final plan awaited continue current mgmt await for or
[2018-06-04] MEDS: MILRINONE 20MG/100ML IVPB - 20,000 MCG/100 ML ML IVPB SCH (14:17)
--- NOTE | 2018-06-04 16:24 | PN ---
Progress Note, Physician History of Present Illness: Pt seen and examined at bedside. He is awake and alert. He does not feel that his breathing is improved. He feels that his lower ext edema is a little better. - Current Medication List Current Medications: Active Medications Acetaminophen (Tylenol -) 650 mg PO Q4H PRN PRN Reason: PAIN Last Admin: 06/04/18 10:17 Dose: 650 mg Albuterol/Ipratropium (Duoneb -) 1 amp NEB Q6H PRN PRN Reason: SHORTNESS OF BREATH Last Admin: 06/04/18 06:10 Dose: 1 amp Aspirin (Asa -) 81 mg PO DAILY [facility] Last Admin: 06/04/18 10:18 Dose: 81 mg Atorvastatin Calcium (Lipitor -) 40 mg PO HS [facility] Last Admin: 06/03/18 22:17 Dose: 40 mg Budesonide/Formoterol Fumarate (Symbicort 80/4.5mcg -) 2 puff IH BID [facility] Last Admin: 06/04/18 10:19 Dose: 2 puff Cholecalciferol (Vitamin D3 -) 2,000 unit PO DAILY [facility] Last Admin: 06/04/18 10:17 Dose: 2,000 unit Clopidogrel Bisulfate (Plavix -) 75 mg PO DAILY [facility] Last Admin: 06/04/18 10:17 Dose: 75 mg Collagenase (Santyl -) 1 applic TP DAILY [facility]; Protocol Last Admin: 06/04/18 10:19 Dose: 1 applic Cyclobenzaprine HCl (Cyclobenzaprine Hcl) 5 mg PO HS [facility] Last Admin: 06/03/18 22:17 Dose: 5 mg Docusate Sodium (Colace -) 100 mg PO TID [facility] Last Admin: 06/04/18 14:15 Dose: Not Given Fentanyl (Sublimaze Injection -) 25 mcg IVPUSH [id number] PRN PRN Reason: PAIN-PACU ORDER X 4 DOSES ONLY Heparin Sodium (Porcine) (Heparin -) 5,000 unit SQ BID [facility] Last Admin: 06/04/18 10:18 Dose: 5,000 unit Ceftriaxone Sodium 2 gm/ (Dextrose) 100 mls @ 200 mls/hr IVPB DAILY [facility]; Protocol Last Admin: 06/04/18 10:11 Dose: 200 mls/hr Milrinone Lactate/Dextrose (Milrinone 20mg/100ml Ivpb -) 20,000 mcg in 100 mls @ 6.559 mls/hr IVPB TITR MANJU Last Admin: 06/04/18 14:17 Dose: 0.25 mcg/kg/min, 6.559 mls/hr Furosemide 100 mg/ Sodium (Chloride) 100 mls @ 7.5 mls/hr IVPB ASDIR MANJU Insulin Aspart (Novolog Vial Sliding Scale -) 1 vial SQ ACHS [facility]; Protocol Last Admin: 06/04/18 11:40 Dose: 4 units Lactulose (Cephulac (Oral Use)) 20 gm PO DAILY [facility] Last Admin: 06/04/18 10:19 Dose: Not Given Metoprolol Succinate (Toprol Xl -) 150 mg PO BID [facility] Last Admin: 06/04/18 10:16 Dose: 150 mg Ondansetron HCl (Zofran Injection) 4 mg IVPUSH Q6H PRN PRN Reason: NAUSEA AND/OR VOMITING Ranitidine HCl (Zantac -) 150 mg PO HS [facility] Last Admin: 06/03/18 22:18 Dose: 150 mg - Objective Vital Signs: Vital Signs Temperature 97.8 F 06/04/18 14:00 Pulse Rate 112 H 06/04/18 14:00 Respiratory Rate 20 06/04/18 14:00 Blood Pressure 120/91 06/04/18 14:00 O2 Sat by Pulse Oximetry (%) 100 06/03/18 21:00 Constitutional: Yes: Calm Eyes: Yes: Conjunctiva Clear HENT: Yes: Atraumatic Cardiovascular: Yes: S1, S2 Respiratory: Yes: On Nasal O2, Rhonchi Gastrointestinal: Yes: Soft Genitourinary: Yes: Incontinence Musculoskeletal: Yes: Muscle Weakness Edema: Yes Edema: LLE: 2+, RLE: 2+ Neurological: Yes: Oriented Psychiatric: Yes: Oriented Labs: CBC, BMP 06/04/18 05:30 06/04/18 05:30 INR, PTT INR 1.58 (0.83-1.09) H 05/28/18 02:29 Assessment/Plan Current Medications Generic Name Dose Route Start Last Admin Trade Name Freq PRN Reason Stop Dose Admin Acetaminophen 650 mg 05/29/18 15:41 06/04/18 10:17 Tylenol - PO 650 mg Q4H PRN Administration PAIN Albuterol/Ipratropium 1 amp 05/28/18 11:38 06/04/18 06:10 Duoneb - NEB 1 amp Q6H PRN Administration SHORTNESS OF BREATH Aspirin 81 mg 05/28/18 11:38 06/04/18 10:18 Asa - PO 81 mg DAILY MANJU Administration Atorvastatin Calcium 40 mg 05/28/18 22:00 06/03/18 22:17 Lipitor - PO 40 mg HS MANJU Administration Budesonide/Formoterol Fumarate 2 puff 05/28/18 22:00 06/04/18 10:19 Symbicort 80/4.5mcg - IH 2 puff BID MANJU Administration Cholecalciferol 2,000 unit 05/29/18 10:00 06/04/18 10:17 Vitamin D3 - PO 2,000 unit DAILY MANJU Administration Clopidogrel Bisulfate 75 mg 05/28/18 11:38 06/04/18 10:17 Plavix - PO 75 mg DAILY MANJU Administration Collagenase 1 applic 05/31/18 10:00 06/04/18 10:19 Santyl - TP 1 applic DAILY MANJU Administration Protocol Cyclobenzaprine HCl 5 mg 05/28/18 22:00 06/03/18 22:17 Cyclobenzaprine Hcl PO 5 mg HS MANJU Administration Docusate Sodium 100 mg 05/28/18 14:00 06/04/18 14:15 Colace - PO Not Given TID ON [facility] Fentanyl 25 mcg 06/03/18 14:32 Sublimaze Injection - IVPUSH [id number] PRN PAIN-PACU ORDER X 4 DOSES ONLY Heparin Sodium (Porcine) 5,000 unit 05/28/18 22:00 06/04/18 10:18 Heparin - SQ 5,000 unit BID MANJU Administration Ceftriaxone Sodium 2 gm/ 100 mls @ 200 mls/hr 06/02/18 14:15 06/04/18 10:11 Dextrose IVPB 200 mls/hr DAILY MANJU Administration Protocol Milrinone Lactate/Dextrose 20,000 mcg in 100 mls @ 6.559 mls/hr 06/04/18 12: 00 06/04/18 14:17 Milrinone 20mg/100ml Ivpb - IVPB 0.25 mcg/kg/min TITR MANJU 6.559 mls/hr Administration 0.25 MCG/KG/MIN Furosemide 100 mg/ Sodium 100 mls @ 7.5 mls/hr 06/04/18 14:00 Chloride IVPB ASDIR MANJU Insulin Aspart 1 vial 05/28/18 16:30 06/04/18 11:40 Novolog Vial Sliding Scale - SQ 4 units ACHS MANJU Administration Protocol Lactulose 20 gm 06/01/18 10:00 06/04/18 10:19 Cephulac (Oral Use) PO Not Given DAILY MANJU Metoprolol Succinate 150 mg 06/02/18 13:46 06/04/18 10:16 Toprol Xl - PO 150 mg BID MANJU Administration Ondansetron HCl 4 mg 06/03/18 14:32 Zofran Injection IVPUSH Q6H PRN NAUSEA AND/OR VOMITING Ranitidine HCl 150 mg 05/28/18 22:00 06/03/18 22:18 Zantac - PO 150 mg HS MANJU Administration Impression 1. CKD 2. proteinuria 3. CAD 4. CHF 5. COPD 6. DM 7. HTN 8. azotemia/fior 9. anemia 10. PVD Plan - renal function worsening - cardio input appreciated, pt now on milrinone/lasix drip - monitor renal function and volume status - may need HD if does not improved, discussed with patient - vascular follow up - cont wound care - pt is clinically doing poorly
[2018-06-04] MEDS: FUROSEMIDE INJECTION 100 MG in SODIUM CHLORIDE 90 ML IVPB SCH (17:36)
[2018-06-04] MEDS ORDERED: PT OWN MED DRAWER 7, Y5N ONE (18:20)
[2018-06-04] MEDS: CYCLOBENZAPRINE HCL 5 MG TABLET PO SCH (21:57)
[2018-06-04] MEDS: ATORVASTATIN CA 40 MG TABLET (FP) PO SCH (21:58)
[2018-06-04] MEDS: RANITIDINE HCL 150 MG TABLET (FP) PO SCH (21:59)
[2018-06-05] MEDS: DOCUSATE SODIUM 100 MG CAPSULE (FP) PO SCH ×3 (06:54→21:59)
[2018-06-05] MEDS: INSULIN SLIDING SCALE (NOVOLOG) 1 VIAL SQ SCH ×4 (06:55→23:05)
--- NOTE | 2018-06-05 07:57 | PN ---
Progress Note, Physician Chief Complaint: Feels same as base line History of Present Illness: 63 yrs old F multiple medical Co-morbidities H/O CHF, HTN, T2DM, CKD stage 3, PAD, Afib watchman [place] in 2018 at [facility] , AICD for NSVT, Bioprosthetic AVR, MR tran historian present with decompensated CHF with worsening LE swelling and SOB, - Current Medication List Current Medications: Active Medications Acetaminophen (Tylenol -) 650 mg PO Q4H PRN PRN Reason: PAIN Last Admin: 06/04/18 21:56 Dose: 650 mg Albuterol/Ipratropium (Duoneb -) 1 amp NEB Q6H PRN PRN Reason: SHORTNESS OF BREATH Last Admin: 06/04/18 06:10 Dose: 1 amp Aspirin (Asa -) 81 mg PO DAILY [facility] Last Admin: 06/04/18 10:18 Dose: 81 mg Atorvastatin Calcium (Lipitor -) 40 mg PO HS [facility] Last Admin: 06/04/18 21:58 Dose: 40 mg Budesonide/Formoterol Fumarate (Symbicort 80/4.5mcg -) 2 puff IH BID [facility] Last Admin: 06/04/18 22:00 Dose: 2 puff Cholecalciferol (Vitamin D3 -) 2,000 unit PO DAILY [facility] Last Admin: 06/04/18 10:17 Dose: 2,000 unit Clopidogrel Bisulfate (Plavix -) 75 mg PO DAILY [facility] Last Admin: 06/04/18 10:17 Dose: 75 mg Collagenase (Santyl -) 1 applic TP DAILY [facility]; Protocol Last Admin: 06/04/18 10:19 Dose: 1 applic Cyclobenzaprine HCl (Cyclobenzaprine Hcl) 5 mg PO HS [facility] Last Admin: 06/04/18 21:57 Dose: 5 mg Docusate Sodium (Colace -) 100 mg PO TID [facility] Last Admin: 06/05/18 06:54 Dose: Not Given Ceftriaxone Sodium 2 gm/ (Dextrose) 100 mls @ 200 mls/hr IVPB DAILY [facility]; Protocol Last Admin: 06/04/18 10:11 Dose: 200 mls/hr Milrinone Lactate/Dextrose (Milrinone 20mg/100ml Ivpb -) 20,000 mcg in 100 mls @ 6.559 mls/hr IVPB TITR [facility]U Last Admin: 06/04/18 14:17 Dose: 0.25 mcg/kg/min, 6.559 mls/hr Furosemide 100 mg/ Sodium (Chloride) 100 mls @ 7.5 mls/hr IVPB ASDIR [facility] Last Admin: 06/04/18 17:36 Dose: 7.5 mls/hr Insulin Aspart (Novolog Vial Sliding Scale -) 1 vial SQ ACHS [facility]; Protocol Last Admin: 06/05/18 06:55 Dose: Not Given Lactulose (Cephulac (Oral Use)) 20 gm PO DAILY [facility] Last Admin: 06/04/18 10:19 Dose: Not Given Metoprolol Succinate (Toprol Xl -) 150 mg PO BID [facility] Last Admin: 06/04/18 21:58 Dose: 150 mg Ondansetron HCl (Zofran Injection) 4 mg IVPUSH Q6H PRN PRN Reason: NAUSEA AND/OR VOMITING Ranitidine HCl (Zantac -) 150 mg PO HS [facility] Last Admin: 06/04/18 21:59 Dose: 150 mg - Objective Vital Signs: Vital Signs Temperature 97.4 F L 06/05/18 06:00 Pulse Rate 104 H 06/05/18 06:00 Respiratory Rate 20 06/05/18 06:00 Blood Pressure 128/80 06/05/18 06:00 O2 Sat by Pulse Oximetry (%) 99 06/04/18 21:00 Middle aged man c/o SOB HEENT: Mm moist, no anemia, PERRLA EOMI NECK:No JVd No Bruit CHEST:CTA B/L CVS:S1S2 IR no SM/g/r ABD:No distention, non tender Bs EXT:Left LE dry to wet gangrene of toes 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 SEAMER: AOX3 non focal Labs: CBC, BMP 06/04/18 05:30 06/04/18 05:30 INR, PTT INR 1.58 (0.83-1.09) H 05/28/18 02:29 - ....Imaging Ultrasound: Report Reviewed (LE result pending) Problem List - Problems (1) Acute exacerbation of CHF (congestive heart failure) Assessment/Plan: Due to non compliance with diuretic dry weight 180 on IV Lasix, B Blockers for rate controlled cardiology and Nephrology, low salt Diet F/U IN/Op and BMP , on IV Lasix and milrinone drip Code(s): I50.9 - HEART FAILURE, UNSPECIFIED Qualifiers: Heart failure type: unspecified Qualified Code(s): I50.9 - Heart failure, unspecified (2) Chronic kidney disease (CKD) Assessment/Plan: Due to diabetic neuropathy renal functions are at abse line F/U BMP and renal recommondations. Code(s): N18.9 - CHRONIC KIDNEY DISEASE, UNSPECIFIED Qualifiers: Chronic kidney disease stage: stage 4 (severe) Qualified Code(s): N18.4 - Chronic kidney disease, stage 4 (severe) (3) Afib Assessment/Plan: Poorly rate controlled incresed B Blockers to optimize HR s/o Watchman Device on ASA and Plavix. Code(s): I48.91 - UNSPECIFIED ATRIAL FIBRILLATION Qualifiers: Atrial fibrillation type: chronic Qualified Code(s): I48.2 - Chronic atrial fibrillation (4) COPD (chronic obstructive pulmonary disease) Assessment/Plan: Cont advair and Duoneb PRN Code(s): J44.9 - CHRONIC OBSTRUCTIVE PULMONARY DISEASE, UNSPECIFIED Qualifiers: COPD type: COPD with acute exacerbation Qualified Code(s): J44.1 - Chronic obstructive pulmonary disease with (acute) exacerbation (5) Diabetes mellitus with chronic kidney disease Assessment/Plan: On Insulin optimize glycemic control Code(s): E11.22 - TYPE 2 DIABETES MELLITUS W DIABETIC CHRONIC KIDNEY DISEASE; N18.9 - CHRONIC KIDNEY DISEASE, UNSPECIFIED Qualifiers: Diabetes mellitus type: type 2 Chronic kidney disease stage: stage 3 ( moderate) (6) Gangrene Assessment/Plan: patient is schedule for angiogram, Left foot toes wet/dry evaluated by Vascular on IV abx F/U LE arterial Doppler. Code(s): I96 - GANGRENE, NOT ELSEWHERE CLASSIFIED
[2018-06-05 09:19] LABS: ALK PHOS 173 U/L (45-117); ANION GAP 11 MMOL/L (8-16); BILIRUBIN,TOTAL 0.6 mg/dL (0.2-1); BLOOD UREA NITROGEN 80 mg/dL (7-18); CALCIUM 7.3 mg/dL (8.5-10.1); CHLORIDE 92 mmol/L (98-107); CO2 29 mmol/L (21-32); CREATININE 2.8 mg/dL (0.55-1.3); GLUCOSE,RANDOM 91 mg/dL (74-106); PHOSPHOROUS 4.2 mg/dL (2.5-4.9); POTASSIUM 3.3 mmol/L (3.5-5.1); SGOT/AST 70 U/L (15-37); SGPT/ALT 25 U/L (13-61); SODIUM 132 mmol/L (136-145); TOT PROT 5.2 g/dl (6.4-8.2)
[2018-06-05] MEDS ORDERED: DEXTROSE 5%-WATER 100 ML IVPB ONE (09:51)
[2018-06-05] MEDS: CEFTRIAXONE 2 GM in DEXTROSE 5%-WATER 100 ML IVPB SCH (10:21)
[2018-06-05] MEDS: CHOLECALCIFEROL (VITAMIN D3) 1,000 UNIT TABLET (FP) PO SCH (10:22)
[2018-06-05] MEDS: LACTULOSE 20 GM/30 ML UDC (FOR ORAL USE ONLY) PO SCH (10:22)
[2018-06-05] MEDS: CLOPIDOGREL BISULFATE 75 MG TABLET (FP) PO SCH (10:22)
[2018-06-05] MEDS: ASPIRIN 81 MG CHEWABLE TABLETS PO SCH (10:22)
[2018-06-05] MEDS: BUDESONIDE/FORMETEROL FUMARATE 80/4.5 mcg INHALER IH SCH ×2 (10:23→23:06)
[2018-06-05] MEDS: COLLAGENASE CLOSTRIDIUM HIST. 30 GRAMS TUBE TP SCH (10:24)
--- NOTE | 2018-06-05 11:06 | PN ---
Progress Note, Physician History of Present Illness: No events overnight Remains of Lasix and Milrinone gtt Believes his breathing is easier Tele: ST 120s - Current Medication List Current Medications: Active Medications Acetaminophen (Tylenol -) 650 mg PO Q4H PRN PRN Reason: PAIN Last Admin: 06/04/18 21:56 Dose: 650 mg Albuterol/Ipratropium (Duoneb -) 1 amp NEB Q6H PRN PRN Reason: SHORTNESS OF BREATH Last Admin: 06/04/18 06:10 Dose: 1 amp Aspirin (Asa -) 81 mg PO DAILY [facility] Last Admin: 06/05/18 10:22 Dose: 81 mg Atorvastatin Calcium (Lipitor -) 40 mg PO HS [facility] Last Admin: 06/04/18 21:58 Dose: 40 mg Budesonide/Formoterol Fumarate (Symbicort 80/4.5mcg -) 2 puff IH BID [facility] Last Admin: 06/05/18 10:23 Dose: 2 puff Cholecalciferol (Vitamin D3 -) 2,000 unit PO DAILY [facility] Last Admin: 06/05/18 10:22 Dose: 2,000 unit Clopidogrel Bisulfate (Plavix -) 75 mg PO DAILY [facility] Last Admin: 06/05/18 10:22 Dose: 75 mg Collagenase (Santyl -) 1 applic TP DAILY [facility]; Protocol Last Admin: 06/05/18 10:24 Dose: 1 applic Cyclobenzaprine HCl (Cyclobenzaprine Hcl) 5 mg PO HS [facility] Last Admin: 06/04/18 21:57 Dose: 5 mg Docusate Sodium (Colace -) 100 mg PO TID [facility] Last Admin: 06/05/18 06:54 Dose: Not Given Ceftriaxone Sodium 2 gm/ (Dextrose) 100 mls @ 200 mls/hr IVPB DAILY [facility]; Protocol Last Admin: 06/05/18 10:21 Dose: 200 mls/hr Milrinone Lactate/Dextrose (Milrinone 20mg/100ml Ivpb -) 20,000 mcg in 100 mls @ 6.559 mls/hr IVPB TITR [facility] Last Admin: 06/04/18 14:17 Dose: 0.25 mcg/kg/min, 6.559 mls/hr Furosemide 100 mg/ Sodium (Chloride) 100 mls @ 7.5 mls/hr IVPB ASDIR [facility] Last Admin: 06/04/18 17:36 Dose: 7.5 mls/hr Insulin Aspart (Novolog Vial Sliding Scale -) 1 vial SQ ACHS [facility]; Protocol Last Admin: 06/05/18 06:55 Dose: Not Given Lactulose (Cephulac (Oral Use)) 20 gm PO DAILY [facility] Last Admin: 06/05/18 10:22 Dose: 20 gm Metoprolol Succinate (Toprol Xl -) 150 mg PO BID [facility] Last Admin: 06/05/18 10:22 Dose: 150 mg Ondansetron HCl (Zofran Injection) 4 mg IVPUSH Q6H PRN PRN Reason: NAUSEA AND/OR VOMITING Ranitidine HCl (Zantac -) 150 mg PO HS [facility] Last Admin: 06/04/18 21:59 Dose: 150 mg - Objective Vital Signs: Vital Signs Temperature 97 F L 06/05/18 09:02 Pulse Rate 94 H 06/05/18 09:02 Respiratory Rate 20 06/05/18 09:02 Blood Pressure 125/84 06/05/18 09:02 O2 Sat by Pulse Oximetry (%) 99 06/04/18 21:00 Constitutional: Yes: No Distress Eyes: Yes: WNL HENT: Yes: WNL Neck: Yes: WNL Cardiovascular: Yes: Tachycardia, JVD Respiratory: Yes: CTA Bilaterally Gastrointestinal: Yes: Normal Bowel Sounds, Abdomen, Obese Extremities: Yes: Cool (necrotic left toes) Edema: RUE: 2+, LLE: 2+ Labs: CBC, BMP 06/04/18 05:30 06/05/18 07:36 INR, PTT INR 1.58 (0.83-1.09) H 05/28/18 02:29 Assessment/Plan a/p: 62 m hx copd, cabgx3 2012, bio avr 2012, pad s/p b/l sfa occlusions, syst chf s/p medtronic icd, htn, hld, a-tach, here with back pain, sob. acute on chronic systolic CHF exacerbation: -recent dc for chf, was doing well but then stopped taking his lasix and other meds for several days and now back with acute chf (second recent admit for med noncompliance) -goal dry wt around 180lbs, on admission 197lbs -was on lasix 80 po daily at home. -05/28- on 80 iv lasix bid with dec Cr, weight down - 05/30 weight charted stable at 193 lbs, however patient says he was not weighed today, renal function improving, edema better - continue same lasix 80 mg IV BID - 05/31 wt unchanged at 193, above dry wt. poor diuretic response to lasix 80 iv per patient. he is well-compensated with JVD but no peripheral edema, no sob at rest, + L effusion on cxr. increase lasix to 100 iv bid, will give one time test dose metolazone 2.5 today. improved AF rate control, as disc 'd - 06/01: wt stable with increased lasix dose to 100 mg IV BID and one time metolazone. will give metolazone 5 mg x 1 prior to PM dose - 06/02: wt stable, dyspnea worsening. Cr rising today, d/w nephrology will continue same lasix 100 mg IV BID, increase metolazone and give prior to PM dose -06/03: No sig change in wt but pt pt reports sob a little better and he is laying flat in bed today comfortably. cont same lasix today. -06/04: No sig improvement in vol status and cr worsening. Will start milrinone gtt and lasix gtt to see if can improve diuresis. check daily chem7 and wts. -cont metoprolol. not on ACEI due to h/o hyperkalemia -06/05: Subjectively feels improved on inotropic support. Will continue. Needs aggresive K repletion, 3.3 today. Creat 2.8 L foot gangrene, h/o PAD, CV preop eval: -wound care, abx per podiatry/vascular -angiogram planned when chf improves CKD: -baseline creatinine 2-2.5, now trending upwards above baseline. plans as above. -renal following -06/05: Creat 2.8 atrial flutter: -pt in persistent AFL. HR control suboptimal. - increase metoprolol to 150 mg BID, still having high rates -CHADS VASC 5. prohibitive falls risk, transferred to [place] recently for evaluation--randomized in Watchman trial -s/p watchman device 04/20--discharged on aspirin and plavix for 3 months protocol. continue same cad/hx of CABG 2012 -no recent angina/ischemia -no signs acs -trop chronically in intermediate range, no significant change in current value , trend for now -cont prior cad med regimen: asa, statin, bb, ccb
[2018-06-05] MEDS: ACETAMINOPHEN 325 MG TABLET (FP) PO PRN (11:21)
[2018-06-05] MEDS ORDERED: POTASSIUM CHLORIDE ORAL LIQUID 20 MEQ/15 ML PO ONE (11:30)
--- NOTE | 2018-06-05 12:58 | PN ---
Progress Note, Physician History of Present Illness: Pt seen and examined, events noted. Pt is alert, afebrile without specific complaints. - Current Medication List Current Medications: Active Medications Acetaminophen (Tylenol -) 650 mg PO Q4H PRN PRN Reason: PAIN Last Admin: 06/05/18 11:21 Dose: 650 mg Albuterol/Ipratropium (Duoneb -) 1 amp NEB Q6H PRN PRN Reason: SHORTNESS OF BREATH Last Admin: 06/04/18 06:10 Dose: 1 amp Aspirin (Asa -) 81 mg PO DAILY [facility] Last Admin: 06/05/18 10:22 Dose: 81 mg Atorvastatin Calcium (Lipitor -) 40 mg PO HS [facility] Last Admin: 06/04/18 21:58 Dose: 40 mg Budesonide/Formoterol Fumarate (Symbicort 80/4.5mcg -) 2 puff IH BID [facility] Last Admin: 06/05/18 10:23 Dose: 2 puff Cholecalciferol (Vitamin D3 -) 2,000 unit PO DAILY [facility] Last Admin: 06/05/18 10:22 Dose: 2,000 unit Clopidogrel Bisulfate (Plavix -) 75 mg PO DAILY [facility] Last Admin: 06/05/18 10:22 Dose: 75 mg Collagenase (Santyl -) 1 applic TP DAILY [facility]; Protocol Last Admin: 06/05/18 10:24 Dose: 1 applic Cyclobenzaprine HCl (Cyclobenzaprine Hcl) 5 mg PO HS [facility] Last Admin: 06/04/18 21:57 Dose: 5 mg Docusate Sodium (Colace -) 100 mg PO TID [facility] Last Admin: 06/05/18 06:54 Dose: Not Given Ceftriaxone Sodium 2 gm/ (Dextrose) 100 mls @ 200 mls/hr IVPB DAILY [facility]; Protocol Last Admin: 06/05/18 10:21 Dose: 200 mls/hr Milrinone Lactate/Dextrose (Milrinone 20mg/100ml Ivpb -) 20,000 mcg in 100 mls @ 6.559 mls/hr IVPB TITR [facility] Last Admin: 06/04/18 14:17 Dose: 0.25 mcg/kg/min, 6.559 mls/hr Furosemide 100 mg/ Sodium (Chloride) 100 mls @ 7.5 mls/hr IVPB ASDIR [facility] Last Admin: 06/04/18 17:36 Dose: 7.5 mls/hr Insulin Aspart (Novolog Vial Sliding Scale -) 1 vial SQ ACHS [facility]; Protocol Last Admin: 06/05/18 06:55 Dose: Not Given Lactulose (Cephulac (Oral Use)) 20 gm PO DAILY [facility] Last Admin: 06/05/18 10:22 Dose: 20 gm Metoprolol Succinate (Toprol Xl -) 150 mg PO BID [facility] Last Admin: 06/05/18 10:22 Dose: 150 mg Ondansetron HCl (Zofran Injection) 4 mg IVPUSH Q6H PRN PRN Reason: NAUSEA AND/OR VOMITING Ranitidine HCl (Zantac -) 150 mg PO HS [facility] Last Admin: 06/04/18 21:59 Dose: 150 mg - Objective Vital Signs: Vital Signs Temperature 97 F L 06/05/18 09:02 Pulse Rate 94 H 06/05/18 09:02 Respiratory Rate 20 06/05/18 09:02 Blood Pressure 125/84 06/05/18 09:02 O2 Sat by Pulse Oximetry (%) 99 06/04/18 21:00 Constitutional: Yes: No Distress, Calm Cardiovascular: Yes: Tachycardia Respiratory: Yes: CTA Bilaterally Gastrointestinal: Yes: Normal Bowel Sounds, Soft Edema: Yes (b/l LE) Wound/Incision: Yes: Other (Lt foot toes necrotic, erythema, dorsal foot ulcer) Neurological: Yes: Alert Labs: CBC, BMP 06/04/18 05:30 06/05/18 07:36 INR, PTT INR 1.58 (0.83-1.09) H 05/28/18 02:29 - ....Imaging Chest X-ray: Report Reviewed Problem List - Problems (1) Acute exacerbation of CHF (congestive heart failure) Code(s): I50.9 - HEART FAILURE, UNSPECIFIED Qualifiers: Heart failure type: unspecified Qualified Code(s): I50.9 - Heart failure, unspecified (2) Gangrene Code(s): I96 - GANGRENE, NOT ELSEWHERE CLASSIFIED (3) Chronic kidney disease (CKD) Code(s): N18.9 - CHRONIC KIDNEY DISEASE, UNSPECIFIED Qualifiers: Chronic kidney disease stage: stage 4 (severe) Qualified Code(s): N18.4 - Chronic kidney disease, stage 4 (severe) (4) Afib Code(s): I48.91 - UNSPECIFIED ATRIAL FIBRILLATION Qualifiers: Atrial fibrillation type: chronic Qualified Code(s): I48.2 - Chronic atrial fibrillation (5) Atrial flutter Code(s): I48.92 - UNSPECIFIED ATRIAL FLUTTER (6) COPD exacerbation Code(s): J44.1 - CHRONIC OBSTRUCTIVE PULMONARY DISEASE W (ACUTE) EXACERBATION (7) CAD (coronary artery disease) Code(s): I25.10 - ATHSCL HEART DISEASE OF [place] CORONARY ARTERY W/O ANG PCTRS Qualifiers: [place] vs. transplanted heart: [place] heart Associated angina: without angina (8) COPD (chronic obstructive pulmonary disease) Code(s): J44.9 - CHRONIC OBSTRUCTIVE PULMONARY DISEASE, UNSPECIFIED Qualifiers: COPD type: COPD with acute exacerbation Qualified Code(s): J44.1 - Chronic obstructive pulmonary disease with (acute) exacerbation (9) Diabetes Code(s): E11.9 - TYPE 2 DIABETES MELLITUS WITHOUT COMPLICATIONS Qualifiers: Diabetes mellitus type: type 2 Diabetes mellitus nursing home insulin use: with nursing home use Diabetes mellitus complication status: with kidney complications Diabetes mellitus complication detail: with chronic kidney disease Chronic kidney disease stage: stage 3 (moderate) Qualified Code(s): E11.22 - Type 2 diabetes mellitus with diabetic chronic kidney disease; N18.3 - Chronic kidney disease, stage 3 (moderate); Z79.4 - USP (current) use of insulin (10) S/P CABG x 3 Code(s): Z95.1 - PRESENCE OF AORTOCORONARY BYPASS GRAFT Assessment/Plan - continue antibiotics - awaiting angiogram, OR deferred for now -- Podiatry and Cardiology following -- wbc mildly elevated, afebrile -- continue wound care
--- NOTE | 2018-06-05 15:30 | PN ---
Progress Note, Physician History of Present Illness: Pt seen and examined at bedside. He is awake and alert. He feels that his edema is a little better today. - Current Medication List Current Medications: Active Medications Acetaminophen (Tylenol -) 650 mg PO Q4H PRN PRN Reason: PAIN Last Admin: 06/05/18 11:21 Dose: 650 mg Albuterol/Ipratropium (Duoneb -) 1 amp NEB Q6H PRN PRN Reason: SHORTNESS OF BREATH Last Admin: 06/04/18 06:10 Dose: 1 amp Aspirin (Asa -) 81 mg PO DAILY [facility] Last Admin: 06/05/18 10:22 Dose: 81 mg Atorvastatin Calcium (Lipitor -) 40 mg PO HS [facility] Last Admin: 06/04/18 21:58 Dose: 40 mg Budesonide/Formoterol Fumarate (Symbicort 80/4.5mcg -) 2 puff IH BID [facility] Last Admin: 06/05/18 10:23 Dose: 2 puff Cholecalciferol (Vitamin D3 -) 2,000 unit PO DAILY [facility] Last Admin: 06/05/18 10:22 Dose: 2,000 unit Clopidogrel Bisulfate (Plavix -) 75 mg PO DAILY [facility] Last Admin: 06/05/18 10:22 Dose: 75 mg Collagenase (Santyl -) 1 applic TP DAILY [facility]; Protocol Last Admin: 06/05/18 10:24 Dose: 1 applic Cyclobenzaprine HCl (Cyclobenzaprine Hcl) 5 mg PO HS [facility] Last Admin: 06/04/18 21:57 Dose: 5 mg Docusate Sodium (Colace -) 100 mg PO TID [facility] Last Admin: 06/05/18 06:54 Dose: Not Given Ceftriaxone Sodium 2 gm/ (Dextrose) 100 mls @ 200 mls/hr IVPB DAILY [facility]; Protocol Last Admin: 06/05/18 10:21 Dose: 200 mls/hr Milrinone Lactate/Dextrose (Milrinone 20mg/100ml Ivpb -) 20,000 mcg in 100 mls @ 6.559 mls/hr IVPB TITR [facility] Last Admin: 06/04/18 14:17 Dose: 0.25 mcg/kg/min, 6.559 mls/hr Furosemide 100 mg/ Sodium (Chloride) 100 mls @ 7.5 mls/hr IVPB ASDIR [facility] Last Admin: 06/04/18 17:36 Dose: 7.5 mls/hr Insulin Aspart (Novolog Vial Sliding Scale -) 1 vial SQ ACHS [facility]; Protocol Last Admin: 06/05/18 06:55 Dose: Not Given Lactulose (Cephulac (Oral Use)) 20 gm PO DAILY [facility] Last Admin: 06/05/18 10:22 Dose: 20 gm Metoprolol Succinate (Toprol Xl -) 150 mg PO BID [facility] Last Admin: 06/05/18 10:22 Dose: 150 mg Ondansetron HCl (Zofran Injection) 4 mg IVPUSH Q6H PRN PRN Reason: NAUSEA AND/OR VOMITING Ranitidine HCl (Zantac -) 150 mg PO HS [facility] Last Admin: 06/04/18 21:59 Dose: 150 mg - Objective Vital Signs: Vital Signs Temperature 97 F L 06/05/18 09:02 Pulse Rate 94 H 06/05/18 09:02 Respiratory Rate 20 06/05/18 09:02 Blood Pressure 125/84 06/05/18 09:02 O2 Sat by Pulse Oximetry (%) 99 06/04/18 21:00 Constitutional: Yes: Calm Eyes: Yes: Conjunctiva Clear HENT: Yes: Atraumatic Neck: Yes: Supple Cardiovascular: Yes: S1, S2 Respiratory: Yes: On Nasal O2, Rhonchi Gastrointestinal: Yes: Soft Genitourinary: Yes: Incontinence Musculoskeletal: Yes: WNL Edema: Yes Edema: LLE: 1+, RLE: 1+ Neurological: Yes: Oriented Psychiatric: Yes: Oriented Labs: CBC, BMP 06/04/18 05:30 06/05/18 07:36 INR, PTT INR 1.58 (0.83-1.09) H 05/28/18 02:29 Assessment/Plan Current Medications Generic Name Dose Route Start Last Admin Trade Name Freq PRN Reason Stop Dose Admin Acetaminophen 650 mg 05/29/18 15:41 06/05/18 11:21 Tylenol - PO 650 mg Q4H PRN Administration PAIN Albuterol/Ipratropium 1 amp 05/28/18 11:38 06/04/18 06:10 Duoneb - NEB 1 amp Q6H PRN Administration SHORTNESS OF BREATH Aspirin 81 mg 05/28/18 11:38 06/05/18 10:22 Asa - PO 81 mg DAILY MANJU Administration Atorvastatin Calcium 40 mg 05/28/18 22:00 06/04/18 21:58 Lipitor - PO 40 mg HS MANJU Administration Budesonide/Formoterol Fumarate 2 puff 05/28/18 22:00 06/05/18 10:23 Symbicort 80/4.5mcg - IH 2 puff BID MANJU Administration Cholecalciferol 2,000 unit 05/29/18 10:00 06/05/18 10:22 Vitamin D3 - PO 2,000 unit DAILY [facility]U Administration Clopidogrel Bisulfate 75 mg 05/28/18 11:38 06/05/18 10:22 Plavix - PO 75 mg DAILY MAN[facility]U Administration Collagenase 1 applic 05/31/18 10:00 06/05/18 10:24 Santyl - TP 1 applic DAILY MANJU Administration Protocol Cyclobenzaprine HCl 5 mg 05/28/18 22:00 06/04/18 21:57 Cyclobenzaprine Hcl PO 5 mg HS MANJU Administration Docusate Sodium 100 mg 05/28/18 14:00 06/05/18 06:54 Colace - PO Not Given TID MANJU Ceftriaxone Sodium 2 gm/ 100 mls @ 200 mls/hr 06/02/18 14:15 06/05/18 10:21 Dextrose IVPB 200 mls/hr DAILY MANJU Administration Protocol Milrinone Lactate/Dextrose 20,000 mcg in 100 mls @ 6.559 mls/hr 06/04/18 12: 00 06/04/18 14:17 Milrinone 20mg/100ml Ivpb - IVPB 0.25 mcg/kg/min TITR MANJU 6.559 mls/hr Administration 0.25 MCG/KG/MIN Furosemide 100 mg/ Sodium 100 mls @ 7.5 mls/hr 06/04/18 14:00 06/04/18 17:36 Chloride IVPB 7.5 mls/hr ASDIR MANJU Administration Insulin Aspart 1 vial 05/28/18 16:30 06/05/18 06:55 Novolog Vial Sliding Scale - SQ Not Given ACHS MANJU Protocol Lactulose 20 gm 06/01/18 10:00 06/05/18 10:22 Cephulac (Oral Use) PO 20 gm DAILY [facility]U Administration Metoprolol Succinate 150 mg 06/02/18 13:46 06/05/18 10:22 Toprol Xl - PO 150 mg BID MANJU Administration Ondansetron HCl 4 mg 06/03/18 14:32 Zofran Injection IVPUSH Q6H PRN NAUSEA AND/OR VOMITING Ranitidine HCl 150 mg 05/28/18 22:00 06/04/18 21:59 Zantac - PO 150 mg HS MANJU Administration Impression 1. CKD 2. proteinuria 3. CAD 4. CHF 5. COPD 6. DM 7. HTN 8. azotemia/fior 9. anemia 10. PVD Plan - replace potassium - monitor output on milrinone/lasix - monitor lytes - will follow renal function - fior in part cardiorenal - vascular follow up - cont wound care
[2018-06-05] MEDS: MILRINONE 20MG/100ML IVPB - 20,000 MCG/100 ML ML IVPB SCH ×2 (18:57)
[2018-06-05] MEDS: CYCLOBENZAPRINE HCL 5 MG TABLET PO SCH (21:59)
[2018-06-05] MEDS: FUROSEMIDE INJECTION 100 MG in SODIUM CHLORIDE 90 ML IVPB SCH (21:59)
[2018-06-05] MEDS: RANITIDINE HCL 150 MG TABLET (FP) PO SCH (22:00)
[2018-06-05] MEDS: ATORVASTATIN CA 40 MG TABLET (FP) PO SCH (22:00)
[2018-06-06] MEDS: DOCUSATE SODIUM 100 MG CAPSULE (FP) PO SCH ×3 (06:31→21:13)
[2018-06-06] MEDS: INSULIN SLIDING SCALE (NOVOLOG) 1 VIAL SQ SCH ×4 (06:37→21:14)
[2018-06-06 08:06] LABS: EOS % 3.1 % (0-4.5); HEMATOCRIT 34.9 % (35.4-49); HEMOGLOBIN 11.7 GM/dL (11.7-16.9); LYMPH % 8.4 % (8-40); MCHC 33.6 g/dl (32.0-35.9); MEAN CELL VOLUME 92.1 fl (80-96); MEAN PLT VOLUME 8.4 fl (7.5-11.1); MONO % 8.7 % (3.8-10.2); NEUT % 78.8 % (42.8-82.8); PLATELET COUNT 231 K/MM3 (134-434); RBC 3.79 M/mm3 (4.00-5.60); RDW 21.7 % (11.9-15.9); WHITE BLOOD COUNT 11.6 K/mm3 (4.0-10.0)
[2018-06-06] MEDS: MILRINONE 20MG/100ML IVPB - 20,000 MCG/100 ML ML IVPB SCH ×2 (08:20→12:04)
[2018-06-06 08:34] LABS: ANION GAP 12 MMOL/L (8-16); BLOOD UREA NITROGEN 84 mg/dL (7-18); CALCIUM 7.4 mg/dL (8.5-10.1); CHLORIDE 87 mmol/L (98-107); CO2 32 mmol/L (21-32); CREATININE 2.9 mg/dL (0.55-1.3); GLUCOSE,RANDOM 143 mg/dL (74-106); POTASSIUM 3.1 mmol/L (3.5-5.1); SODIUM 131 mmol/L (136-145)
--- NOTE | 2018-06-06 09:26 | PN ---
Progress Note, Physician Chief Complaint: Feels same as base line, no interval changes, History of Present Illness: 63 yrs old F multiple medical Co-morbidities H/O CHF, HTN, T2DM, CKD stage 3, PAD, Afib watchman [place] in 2018 at [facility] , AICD for NSVT, Bioprosthetic AVR, MR tran historian present with decompensated CHF with worsening LE swelling and SOB, - Current Medication List Current Medications: Active Medications Acetaminophen (Tylenol -) 650 mg PO Q4H PRN PRN Reason: PAIN Last Admin: 06/05/18 11:21 Dose: 650 mg Albuterol/Ipratropium (Duoneb -) 1 amp NEB Q6H PRN PRN Reason: SHORTNESS OF BREATH Last Admin: 06/04/18 06:10 Dose: 1 amp Aspirin (Asa -) 81 mg PO DAILY [facility] Last Admin: 06/05/18 10:22 Dose: 81 mg Atorvastatin Calcium (Lipitor -) 40 mg PO HS [facility] Last Admin: 06/05/18 22:00 Dose: 40 mg Budesonide/Formoterol Fumarate (Symbicort 80/4.5mcg -) 2 puff IH BID [facility] Last Admin: 06/05/18 23:06 Dose: 2 puff Cholecalciferol (Vitamin D3 -) 2,000 unit PO DAILY [facility] Last Admin: 06/05/18 10:22 Dose: 2,000 unit Clopidogrel Bisulfate (Plavix -) 75 mg PO DAILY [facility] Last Admin: 06/05/18 10:22 Dose: 75 mg Collagenase (Santyl -) 1 applic TP DAILY [facility]; Protocol Last Admin: 06/05/18 10:24 Dose: 1 applic Cyclobenzaprine HCl (Cyclobenzaprine Hcl) 5 mg PO HS [facility] Last Admin: 06/05/18 21:59 Dose: 5 mg Docusate Sodium (Colace -) 100 mg PO TID [facility] Last Admin: 06/06/18 06:31 Dose: Not Given Ceftriaxone Sodium 2 gm/ (Dextrose) 100 mls @ 200 mls/hr IVPB DAILY [facility]; Protocol Last Admin: 06/05/18 10:21 Dose: 200 mls/hr Milrinone Lactate/Dextrose (Milrinone 20mg/100ml Ivpb -) 20,000 mcg in 100 mls @ 6.559 mls/hr IVPB TITR [facility] Last Admin: 06/05/18 18:57 Dose: 0.25 mcg/kg/min, 6.559 mls/hr Furosemide 100 mg/ Sodium (Chloride) 100 mls @ 7.5 mls/hr IVPB ASDIR [facility] Last Admin: 06/05/18 21:59 Dose: 7.5 mls/hr Insulin Aspart (Novolog Vial Sliding Scale -) 1 vial SQ ACHS [facility]; Protocol Last Admin: 06/06/18 06:37 Dose: Not Given Lactulose (Cephulac (Oral Use)) 20 gm PO DAILY [facility] Last Admin: 06/05/18 10:22 Dose: 20 gm Metoprolol Succinate (Toprol Xl -) 150 mg PO BID [facility] Last Admin: 06/05/18 22:00 Dose: 150 mg Ondansetron HCl (Zofran Injection) 4 mg IVPUSH Q6H PRN PRN Reason: NAUSEA AND/OR VOMITING Ranitidine HCl (Zantac -) 150 mg PO HS [facility] Last Admin: 06/05/18 22:00 Dose: 150 mg - Objective Vital Signs: Vital Signs Temperature 97 F L 06/06/18 08:33 Pulse Rate 116 H 06/06/18 08:33 Respiratory Rate 20 06/06/18 08:33 Blood Pressure 135/97 06/06/18 08:33 O2 Sat by Pulse Oximetry (%) 100 06/05/18 21:00 Middle aged man not in distress, looks tired HEENT: Mm moist, no anemia, PERRLA EOMI NECK:No JVd No Bruit CHEST:B/L Basal crepts CVS:S1S2 IR no SM/g/r ABD:No distention, non tender Bs EXT:Left LE dry to wet gangrene of toes PIT RECORDER: AOX3 non focal Labs: CBC, BMP 06/06/18 05:50 06/06/18 05:50 INR, PTT INR 1.58 (0.83-1.09) H 05/28/18 02:29 Problem List - Problems (1) Acute exacerbation of CHF (congestive heart failure) Assessment/Plan: Due to non compliance with diuretic dry weight 180 on IV Lasix, B Blockers for rate controlled cardiology and Nephrology, low salt Diet F/U IN/Op and BMP , on IV Lasix and milrinone drip, evaluated by Cardiology and Nephrology F/U IP/ Op Code(s): I50.9 - HEART FAILURE, UNSPECIFIED Qualifiers: Heart failure type: unspecified Qualified Code(s): I50.9 - Heart failure, unspecified (2) Chronic kidney disease (CKD) Assessment/Plan: Due to diabetic neuropathy Creat is higher from base line will F/U renal recommendation f/u BMP in am Qualifiers: Chronic kidney disease stage: stage 4 (severe) Qualified Code(s): N18.4 - Chronic kidney disease, stage 4 (severe) (3) Afib Assessment/Plan: Poorly rate controlled increased B Blockers to optimize HR s/o Watchman Device on ASA and Plavix. Code(s): I48.91 - UNSPECIFIED ATRIAL FIBRILLATION Qualifiers: Atrial fibrillation type: chronic Qualified Code(s): I48.2 - Chronic atrial fibrillation (4) COPD (chronic obstructive pulmonary disease) Assessment/Plan: Cont advair and Duoneb PRN Code(s): J44.9 - CHRONIC OBSTRUCTIVE PULMONARY DISEASE, UNSPECIFIED Qualifiers: COPD type: COPD with acute exacerbation Qualified Code(s): J44.1 - Chronic obstructive pulmonary disease with (acute) exacerbation (5) Diabetes mellitus with chronic kidney disease Assessment/Plan: On Insulin optimize glycemic control Code(s): E11.22 - TYPE 2 DIABETES MELLITUS W DIABETIC CHRONIC KIDNEY DISEASE; N18.9 - CHRONIC KIDNEY DISEASE, UNSPECIFIED Qualifiers: Diabetes mellitus type: type 2 Chronic kidney disease stage: stage 3 ( moderate) (6) Gangrene Assessment/Plan: .on IV abx arterial Doppler result is pending Code(s): I96 - GANGRENE, NOT ELSEWHERE CLASSIFIED (7) Hypokalemia Assessment/Plan: Repleted F/U BMP and mag Code(s): E87.6 - HYPOKALEMIA
[2018-06-06] MEDS: CEFTRIAXONE 2 GM in DEXTROSE 5%-WATER 100 ML IVPB SCH (10:40)
[2018-06-06] MEDS: LACTULOSE 20 GM/30 ML UDC (FOR ORAL USE ONLY) PO SCH (10:40)
[2018-06-06] MEDS: ASPIRIN 81 MG CHEWABLE TABLETS PO SCH (10:41)
[2018-06-06] MEDS: CLOPIDOGREL BISULFATE 75 MG TABLET (FP) PO SCH (10:42)
[2018-06-06] MEDS: COLLAGENASE CLOSTRIDIUM HIST. 30 GRAMS TUBE TP SCH (10:42)
[2018-06-06] MEDS: CHOLECALCIFEROL (VITAMIN D3) 1,000 UNIT TABLET (FP) PO SCH (10:43)
[2018-06-06] MEDS: BUDESONIDE/FORMETEROL FUMARATE 80/4.5 mcg INHALER IH SCH ×2 (10:43→21:14)
[2018-06-06] MEDS ORDERED: DEXTROSE 5%-WATER 100 ML IVPB ONE (10:50)
--- NOTE | 2018-06-06 11:24 | PN ---
Progress Note, Physician History of Present Illness: No CV events No change in breathing from yesterday Tele: Tachy to 130s Good UOP as per RN, but wearing diaper - Current Medication List Current Medications: Active Medications Acetaminophen (Tylenol -) 650 mg PO Q4H PRN PRN Reason: PAIN Last Admin: 06/05/18 11:21 Dose: 650 mg Albuterol/Ipratropium (Duoneb -) 1 amp NEB Q6H PRN PRN Reason: SHORTNESS OF BREATH Last Admin: 06/04/18 06:10 Dose: 1 amp Aspirin (Asa -) 81 mg PO DAILY [facility] Last Admin: 06/06/18 10:41 Dose: 81 mg Atorvastatin Calcium (Lipitor -) 40 mg PO HS [facility] Last Admin: 06/05/18 22:00 Dose: 40 mg Budesonide/Formoterol Fumarate (Symbicort 80/4.5mcg -) 2 puff IH BID [facility] Last Admin: 06/06/18 10:43 Dose: 2 puff Cholecalciferol (Vitamin D3 -) 2,000 unit PO DAILY [facility] Last Admin: 06/06/18 10:43 Dose: 2,000 unit Clopidogrel Bisulfate (Plavix -) 75 mg PO DAILY [facility] Last Admin: 06/06/18 10:42 Dose: 75 mg Collagenase (Santyl -) 1 applic TP DAILY [facility]; Protocol Last Admin: 06/06/18 10:42 Dose: 1 applic Cyclobenzaprine HCl (Cyclobenzaprine Hcl) 5 mg PO HS [facility] Last Admin: 06/05/18 21:59 Dose: 5 mg Docusate Sodium (Colace -) 100 mg PO TID [facility] Last Admin: 06/06/18 06:31 Dose: Not Given Ceftriaxone Sodium 2 gm/ (Dextrose) 100 mls @ 200 mls/hr IVPB DAILY [facility]; Protocol Last Admin: 06/06/18 10:40 Dose: 200 mls/hr Milrinone Lactate/Dextrose (Milrinone 20mg/100ml Ivpb -) 20,000 mcg in 100 mls @ 6.559 mls/hr IVPB TITR [facility] Last Admin: 06/06/18 08:20 Dose: 0.25 mcg/kg/min, 6.6 mls/hr Furosemide 100 mg/ Sodium (Chloride) 100 mls @ 7.5 mls/hr IVPB ASDIR [facility] Last Admin: 06/05/18 21:59 Dose: 7.5 mls/hr Insulin Aspart (Novolog Vial Sliding Scale -) 1 vial SQ ACHS [facility]; Protocol Last Admin: 06/06/18 06:37 Dose: Not Given Lactulose (Cephulac (Oral Use)) 20 gm PO DAILY [facility] Last Admin: 06/06/18 10:40 Dose: 20 gm Metoprolol Succinate (Toprol Xl -) 150 mg PO BID [facility] Last Admin: 06/06/18 10:41 Dose: 150 mg Ondansetron HCl (Zofran Injection) 4 mg IVPUSH Q6H PRN PRN Reason: NAUSEA AND/OR VOMITING Ranitidine HCl (Zantac -) 150 mg PO HS [facility] Last Admin: 06/05/18 22:00 Dose: 150 mg - Objective Vital Signs: Vital Signs Temperature 97 F L 06/06/18 08:33 Pulse Rate 116 H 06/06/18 08:33 Respiratory Rate 20 06/06/18 08:33 Blood Pressure 135/97 06/06/18 08:33 O2 Sat by Pulse Oximetry (%) 100 06/05/18 21:00 Constitutional: Yes: Well Nourished, No Distress Eyes: Yes: WNL HENT: Yes: WNL Neck: Yes: WNL Cardiovascular: Yes: Tachycardia Respiratory: Yes: CTA Bilaterally Gastrointestinal: Yes: Abdomen, Obese Extremities: Yes: Cool (Wet Gangrene left toes) Edema: Yes Edema: LLE: 2+, RLE: 2+ Labs: CBC, BMP 06/06/18 05:50 06/06/18 05:50 INR, PTT INR 1.58 (0.83-1.09) H 05/28/18 02:29 Assessment/Plan a/p: 62 m hx copd, cabgx3 2012, bio avr 2012, pad s/p b/l sfa occlusions, syst chf s/p medtronic icd, htn, hld, a-tach, here with back pain, sob. acute on chronic systolic CHF exacerbation: -recent dc for chf, was doing well but then stopped taking his lasix and other meds for several days and now back with acute chf (second recent admit for med noncompliance) -goal dry wt around 180lbs, on admission 197lbs -was on lasix 80 po daily at home. -2/22- on 80 iv lasix bid with dec Cr, weight down - 05/30 weight charted stable at 193 lbs, however patient says he was not weighed today, renal function improving, edema better - continue same lasix 80 mg IV BID - 05/31 wt unchanged at 193, above dry wt. poor diuretic response to lasix 80 iv per patient. he is well-compensated with JVD but no peripheral edema, no sob at rest, + L effusion on cxr. increase lasix to 100 iv bid, will give one time test dose metolazone 2.5 today. improved AF rate control, as disc 'd - 06/01: wt stable with increased lasix dose to 100 mg IV BID and one time metolazone. will give metolazone 5 mg x 1 prior to PM dose - 06/02: wt stable, dyspnea worsening. Cr rising today, d/w nephrology will continue same lasix 100 mg IV BID, increase metolazone and give prior to PM dose -06/03: No sig change in wt but pt pt reports sob a little better and he is laying flat in bed today comfortably. cont same lasix today. -06/04: No sig improvement in vol status and cr worsening. Will start milrinone gtt and lasix gtt to see if can improve diuresis. check daily chem7 and wts. -cont metoprolol. not on ACEI due to h/o hyperkalemia -06/05: Subjectively feels improved on inotropic support. Will continue. Needs aggressive K repletion, 3.3 today. Creat 2.8 -06/06: Continue Lasix gtt at 7.5/hr andf Milrinone at 0.25 mcg/kg/min. Continue K repletion. Creat stable. Check Magnesium L foot gangrene, h/o PAD, CV preop eval: -wound care, abx per podiatry/vascular -angiogram planned when chf improves CKD: -baseline creatinine 2-2.5, now trending upwards above baseline. plans as above. -renal following -06/05: Creat 2.8 atrial flutter: -pt in persistent AFL. HR control suboptimal. - increase metoprolol to 150 mg BID, still having high rates -CHADS VASC 5. prohibitive falls risk, transferred to [facility] recently for evaluation--randomized in Watchman trial -s/p watchman device 04/20--discharged on aspirin and plavix for 3 months protocol. continue same cad/hx of CABG 2012 -no recent angina/ischemia -no signs acs -trop chronically in intermediate range, no significant change in current value , trend for now -cont prior cad med regimen: asa, statin, bb, ccb
[2018-06-06 11:36] LABS: ANISOCYTOSIS 1+; MACROCYTOSIS 1+; PLATELET ESTIMATE NORMAL
[2018-06-06 11:48] LABS: MAGNESIUM 1.9 mg/dL (1.8-2.4)
[2018-06-06] MEDS: FUROSEMIDE INJECTION 100 MG in SODIUM CHLORIDE 90 ML IVPB SCH (15:05)
--- NOTE | 2018-06-06 16:20 | PN ---
Progress Note, Physician History of Present Illness: Pt is alert, without distress. Remains tachycardic. Denies chest pain/SOB. - Current Medication List Current Medications: Active Medications Acetaminophen (Tylenol -) 650 mg PO Q4H PRN PRN Reason: PAIN Last Admin: 06/05/18 11:21 Dose: 650 mg Albuterol/Ipratropium (Duoneb -) 1 amp NEB Q6H PRN PRN Reason: SHORTNESS OF BREATH Last Admin: 06/04/18 06:10 Dose: 1 amp Aspirin (Asa -) 81 mg PO DAILY [facility] Last Admin: 06/06/18 10:41 Dose: 81 mg Atorvastatin Calcium (Lipitor -) 40 mg PO HS [facility] Last Admin: 06/05/18 22:00 Dose: 40 mg Budesonide/Formoterol Fumarate (Symbicort 80/4.5mcg -) 2 puff IH BID [facility] Last Admin: 06/06/18 10:43 Dose: 2 puff Cholecalciferol (Vitamin D3 -) 2,000 unit PO DAILY [facility] Last Admin: 06/06/18 10:43 Dose: 2,000 unit Clopidogrel Bisulfate (Plavix -) 75 mg PO DAILY [facility] Last Admin: 06/06/18 10:42 Dose: 75 mg Collagenase (Santyl -) 1 applic TP DAILY [facility]; Protocol Last Admin: 06/06/18 10:42 Dose: 1 applic Cyclobenzaprine HCl (Cyclobenzaprine Hcl) 5 mg PO HS [facility] Last Admin: 06/05/18 21:59 Dose: 5 mg Docusate Sodium (Colace -) 100 mg PO TID [facility] Last Admin: 06/06/18 06:31 Dose: Not Given Ceftriaxone Sodium 2 gm/ (Dextrose) 100 mls @ 200 mls/hr IVPB DAILY [facility]; Protocol Last Admin: 06/06/18 10:40 Dose: 200 mls/hr Milrinone Lactate/Dextrose (Milrinone 20mg/100ml Ivpb -) 20,000 mcg in 100 mls @ 6.559 mls/hr IVPB TITR [facility] Last Admin: 06/06/18 12:04 Dose: 0.25 mcg/kg/min, 6.6 mls/hr Furosemide 100 mg/ Sodium (Chloride) 100 mls @ 7.5 mls/hr IVPB ASDIR [facility] Last Admin: 06/06/18 15:05 Dose: 7.5 mls/hr Insulin Aspart (Novolog Vial Sliding Scale -) 1 vial SQ ACHS [facility]; Protocol Last Admin: 06/06/18 12:41 Dose: 4 units Lactulose (Cephulac (Oral Use)) 20 gm PO DAILY [facility] Last Admin: 06/06/18 10:40 Dose: 20 gm Metoprolol Succinate (Toprol Xl -) 150 mg PO BID [facility] Last Admin: 06/06/18 10:41 Dose: 150 mg Ondansetron HCl (Zofran Injection) 4 mg IVPUSH Q6H PRN PRN Reason: NAUSEA AND/OR VOMITING Ranitidine HCl (Zantac -) 150 mg PO HS [facility] Last Admin: 06/05/18 22:00 Dose: 150 mg - Objective Vital Signs: Vital Signs Temperature 97.4 F L 06/06/18 14:25 Pulse Rate 118 H 06/06/18 14:25 Respiratory Rate 22 H 06/06/18 14:25 Blood Pressure 132/65 06/06/18 14:25 O2 Sat by Pulse Oximetry (%) 100 06/06/18 09:00 Constitutional: Yes: No Distress, Calm Cardiovascular: Yes: Tachycardia Respiratory: Yes: Regular Gastrointestinal: Yes: Normal Bowel Sounds, Soft Wound/Incision: Yes: Other (Lt foot toes necrotic, no pain) Neurological: Yes: Alert Labs: CBC, BMP 06/06/18 05:50 06/06/18 05:50 INR, PTT INR 1.58 (0.83-1.09) H 05/28/18 02:29 Problem List - Problems (1) Acute exacerbation of CHF (congestive heart failure) Code(s): I50.9 - HEART FAILURE, UNSPECIFIED Qualifiers: Heart failure type: unspecified Qualified Code(s): I50.9 - Heart failure, unspecified (2) Gangrene Code(s): I96 - GANGRENE, NOT ELSEWHERE CLASSIFIED (3) Chronic kidney disease (CKD) Code(s): N18.9 - CHRONIC KIDNEY DISEASE, UNSPECIFIED Qualifiers: Chronic kidney disease stage: stage 4 (severe) Qualified Code(s): N18.4 - Chronic kidney disease, stage 4 (severe) (4) Afib Code(s): I48.91 - UNSPECIFIED ATRIAL FIBRILLATION Qualifiers: Atrial fibrillation type: chronic Qualified Code(s): I48.2 - Chronic atrial fibrillation (5) Atrial flutter Code(s): I48.92 - UNSPECIFIED ATRIAL FLUTTER (6) COPD exacerbation Code(s): J44.1 - CHRONIC OBSTRUCTIVE PULMONARY DISEASE W (ACUTE) EXACERBATION (7) CAD (coronary artery disease) Code(s): I25.10 - ATHSCL HEART DISEASE OF [place] CORONARY ARTERY W/O ANG PCTRS Qualifiers: [place] vs. transplanted heart: [place] heart Associated angina: without angina (8) COPD (chronic obstructive pulmonary disease) Code(s): J44.9 - CHRONIC OBSTRUCTIVE PULMONARY DISEASE, UNSPECIFIED Qualifiers: COPD type: COPD with acute exacerbation Qualified Code(s): J44.1 - Chronic obstructive pulmonary disease with (acute) exacerbation (9) Diabetes Code(s): E11.9 - TYPE 2 DIABETES MELLITUS WITHOUT COMPLICATIONS Qualifiers: Diabetes mellitus type: type 2 Diabetes mellitus salvage determiner insulin use: with fci use Diabetes mellitus complication status: with kidney complications Diabetes mellitus complication detail: with chronic kidney disease Chronic kidney disease stage: stage 3 (moderate) Qualified Code(s): E11.22 - Type 2 diabetes mellitus with diabetic chronic kidney disease; N18.3 - Chronic kidney disease, stage 3 (moderate); Z79.4 - intermediate (current) use of insulin (10) S/P CABG x 3 Code(s): Z95.1 - PRESENCE OF AORTOCORONARY BYPASS GRAFT Assessment/Plan Left foot gangrenous toes Leukocytosis/Fever ERROL - continue antibiotics, pt is afebrile, wbc trending to normal - plan is surgical management once cleared - Podiatry and Cardiology following - Creatinine increasing
[2018-06-06] MEDS ORDERED: POTASSIUM CHLORIDE TABS 20 MEQ TABLET.ER (FP) PO ONE (16:46)
[2018-06-06] MEDS ORDERED: POTASSIUM CHLORIDE 20 MEQ PREMIX IVPB 100 ML IVPB SCH (17:00)
[2018-06-06] MEDS ORDERED: POTASSIUM CHLORIDE ORAL LIQUID 20 MEQ/15 ML PO ONE (17:02)
--- NOTE | 2018-06-06 18:24 | PN ---
Progress Note, Physician History of Present Illness: Pt seen and examined at bedside. He is awake and alert. He appears more comfortable today. He feels that his lower ext edema is improving. - Current Medication List Current Medications: Active Medications Acetaminophen (Tylenol -) 650 mg PO Q4H PRN PRN Reason: PAIN Last Admin: 06/05/18 11:21 Dose: 650 mg Aspirin (Asa -) 81 mg PO DAILY [facility] Last Admin: 06/06/18 10:41 Dose: 81 mg Atorvastatin Calcium (Lipitor -) 40 mg PO HS [facility] Last Admin: 06/05/18 22:00 Dose: 40 mg Budesonide/Formoterol Fumarate (Symbicort 80/4.5mcg -) 2 puff IH BID [facility] Last Admin: 06/06/18 10:43 Dose: 2 puff Cholecalciferol (Vitamin D3 -) 2,000 unit PO DAILY [facility] Last Admin: 06/06/18 10:43 Dose: 2,000 unit Clopidogrel Bisulfate (Plavix -) 75 mg PO DAILY [facility] Last Admin: 06/06/18 10:42 Dose: 75 mg Collagenase (Santyl -) 1 applic TP DAILY [facility]; Protocol Last Admin: 06/06/18 10:42 Dose: 1 applic Cyclobenzaprine HCl (Cyclobenzaprine Hcl) 5 mg PO HS [facility] Last Admin: 06/05/18 21:59 Dose: 5 mg Docusate Sodium (Colace -) 100 mg PO TID [facility] Last Admin: 06/06/18 06:31 Dose: Not Given Ceftriaxone Sodium 2 gm/ (Dextrose) 100 mls @ 200 mls/hr IVPB DAILY [facility]; Protocol Last Admin: 06/06/18 10:40 Dose: 200 mls/hr Milrinone Lactate/Dextrose (Milrinone 20mg/100ml Ivpb -) 20,000 mcg in 100 mls @ 6.559 mls/hr IVPB TITR [facility] Last Admin: 06/06/18 12:04 Dose: 0.25 mcg/kg/min, 6.6 mls/hr Furosemide 100 mg/ Sodium (Chloride) 100 mls @ 7.5 mls/hr IVPB ASDIR [facility] Last Admin: 06/06/18 15:05 Dose: 7.5 mls/hr Insulin Aspart (Novolog Vial Sliding Scale -) 1 vial SQ ACHS [facility]; Protocol Last Admin: 06/06/18 17:31 Dose: 4 units Lactulose (Cephulac (Oral Use)) 20 gm PO DAILY [facility] Last Admin: 06/06/18 10:40 Dose: 20 gm Metoprolol Succinate (Toprol Xl -) 150 mg PO BID [facility] Last Admin: 06/06/18 10:41 Dose: 150 mg Ondansetron HCl (Zofran Injection) 4 mg IVPUSH Q6H PRN PRN Reason: NAUSEA AND/OR VOMITING Ranitidine HCl (Zantac -) 150 mg PO HS [facility] Last Admin: 06/05/18 22:00 Dose: 150 mg - Objective Vital Signs: Vital Signs Temperature 97.4 F L 06/06/18 14:25 Pulse Rate 118 H 06/06/18 14:25 Respiratory Rate 22 H 06/06/18 14:25 Blood Pressure 132/65 06/06/18 14:25 O2 Sat by Pulse Oximetry (%) 100 06/06/18 09:00 Constitutional: Yes: Calm Eyes: Yes: Conjunctiva Clear HENT: Yes: Atraumatic Neck: Yes: Supple Cardiovascular: Yes: S1, S2 Respiratory: Yes: On Nasal O2 Gastrointestinal: Yes: Soft Genitourinary: Yes: WNL Edema: Yes Edema: LLE: 1+, RLE: 1+ Neurological: Yes: Oriented Psychiatric: Yes: Oriented Labs: CBC, BMP 06/06/18 05:50 06/06/18 05:50 INR, PTT INR 1.58 (0.83-1.09) H 05/28/18 02:29 Assessment/Plan Current Medications Generic Name Dose Route Start Last Admin Trade Name Freq PRN Reason Stop Dose Admin Acetaminophen 650 mg 05/29/18 15:41 06/05/18 11:21 Tylenol - PO 650 mg Q4H PRN Administration PAIN Aspirin 81 mg 05/28/18 11:38 06/06/18 10:41 Asa - PO 81 mg DAILY [facility] Administration Atorvastatin Calcium 40 mg 05/28/18 22:00 06/05/18 22:00 Lipitor - PO 40 mg HS [facility] Administration Budesonide/Formoterol Fumarate 2 puff 05/28/18 22:00 06/06/18 10:43 Symbicort 80/4.5mcg - IH 2 puff BID [facility] Administration Cholecalciferol 2,000 unit 05/29/18 10:00 06/06/18 10:43 Vitamin D3 - PO 2,000 unit DAILY [facility] Administration Clopidogrel Bisulfate 75 mg 05/28/18 11:38 06/06/18 10:42 Plavix - PO 75 mg DAILY [facility] Administration Collagenase 1 applic 05/31/18 10:00 06/06/18 10:42 Santyl - TP 1 applic DAILY [facility] Administration Protocol Cyclobenzaprine HCl 5 mg 05/28/18 22:00 06/05/18 21:59 Cyclobenzaprine Hcl PO 5 mg HS [facility] Administration Docusate Sodium 100 mg 05/28/18 14:00 06/06/18 06:31 Colace - PO Not Given TID [facility] Ceftriaxone Sodium 2 gm/ 100 mls @ 200 mls/hr 06/02/18 14:15 06/06/18 10:40 Dextrose IVPB 200 mls/hr DAILY [facility] Administration Protocol Milrinone Lactate/Dextrose 20,000 mcg in 100 mls @ 6.559 mls/hr 06/04/18 12: 00 06/06/18 12:04 Milrinone 20mg/100ml Ivpb - IVPB 0.25 mcg/kg/min TITR [facility] 6.6 mls/hr Administration 0.25 MCG/KG/MIN Furosemide 100 mg/ Sodium 100 mls @ 7.5 mls/hr 06/04/18 14:00 06/06/18 15:05 Chloride IVPB 7.5 mls/hr ASDIR [facility] Administration Insulin Aspart 1 vial 05/28/18 16:30 06/06/18 17:31 Novolog Vial Sliding Scale - SQ 4 units ACHS [facility] Administration Protocol Lactulose 20 gm 06/01/18 10:00 06/06/18 10:40 Cephulac (Oral Use) PO 20 gm DAILY [facility] Administration Metoprolol Succinate 150 mg 06/02/18 13:46 06/06/18 10:41 Toprol Xl - PO 150 mg BID [facility] Administration Ondansetron HCl 4 mg 06/03/18 14:32 Zofran Injection IVPUSH Q6H PRN NAUSEA AND/OR VOMITING Ranitidine HCl 150 mg 05/28/18 22:00 06/05/18 22:00 Zantac - PO 150 mg HS [facility] Administration Impression 1. CKD 2. proteinuria 3. CAD 4. CHF 5. COPD 6. DM 7. HTN 8. azotemia/fior 9. anemia 10. PVD Plan - cont with lasix - replace potassium - volume status appears to be improving - vascular follow up - will follow renal function - fior in part cardiorenal - vascular follow up - cont wound care
[2018-06-06] MEDS: RANITIDINE HCL 150 MG TABLET (FP) PO SCH (21:13)
[2018-06-06] MEDS: CYCLOBENZAPRINE HCL 5 MG TABLET PO SCH (21:13)
[2018-06-06] MEDS: ATORVASTATIN CA 40 MG TABLET (FP) PO SCH (21:13)
[2018-06-07] MEDS: DOCUSATE SODIUM 100 MG CAPSULE (FP) PO SCH ×3 (06:29→22:45)
[2018-06-07] MEDS: INSULIN SLIDING SCALE (NOVOLOG) 1 VIAL SQ SCH ×4 (06:53→22:43)
[2018-06-07 06:56] LABS: EOS % 2.5 % (0-4.5); HEMATOCRIT 33.4 % (35.4-49); HEMOGLOBIN 11.2 GM/dL (11.7-16.9); LYMPH % 7.2 % (8-40); MCH 31.2 pg (25.7-33.7); MCHC 33.5 g/dl (32.0-35.9); MEAN CELL VOLUME 93.4 fl (80-96); MEAN PLT VOLUME 8.8 fl (7.5-11.1); MONO % 8.3 % (3.8-10.2); PLATELET COUNT 196 K/MM3 (134-434); RBC 3.58 M/mm3 (4.00-5.60); RDW 21.5 % (11.9-15.9); WHITE BLOOD COUNT 11.9 K/mm3 (4.0-10.0)
[2018-06-07 07:32] LABS: ALK PHOS 248 U/L (45-117); ANION GAP 10 MMOL/L (8-16); BILIRUBIN,TOTAL 0.6 mg/dL (0.2-1); BLOOD UREA NITROGEN 85 mg/dL (7-18); CALCIUM 7.3 mg/dL (8.5-10.1); CHLORIDE 89 mmol/L (98-107); CO2 33 mmol/L (21-32); CREATININE 2.8 mg/dL (0.55-1.3); GLUCOSE,RANDOM 189 mg/dL (74-106); MAGNESIUM 1.9 mg/dL (1.8-2.4); POTASSIUM 3.1 mmol/L (3.5-5.1); SGOT/AST 66 U/L (15-37); SGPT/ALT 27 U/L (13-61); SODIUM 132 mmol/L (136-145); TOT PROT 5.3 g/dl (6.4-8.2)
[2018-06-07] MEDS ORDERED: DEXTROSE 5%-WATER 100 ML IVPB ONE (09:04)
[2018-06-07] MEDS: CHOLECALCIFEROL (VITAMIN D3) 1,000 UNIT TABLET (FP) PO SCH (09:12)
[2018-06-07] MEDS: CEFTRIAXONE 2 GM in DEXTROSE 5%-WATER 100 ML IVPB SCH (09:12)
[2018-06-07] MEDS: POTASSIUM CHLORIDE TABS 20 MEQ TABLET.ER (FP) PO SCH ×2 (09:15→12:32)
[2018-06-07] MEDS: CLOPIDOGREL BISULFATE 75 MG TABLET (FP) PO SCH (09:15)
[2018-06-07] MEDS: LACTULOSE 20 GM/30 ML UDC (FOR ORAL USE ONLY) PO SCH (09:15)
[2018-06-07] MEDS: ASPIRIN 81 MG CHEWABLE TABLETS PO SCH (09:15)
[2018-06-07] MEDS: BUDESONIDE/FORMETEROL FUMARATE 80/4.5 mcg INHALER IH SCH ×2 (09:15→22:52)
[2018-06-07] MEDS: COLLAGENASE CLOSTRIDIUM HIST. 30 GRAMS TUBE TP SCH (09:16)
--- NOTE | 2018-06-07 13:36 | PN ---
Teaching Attending Note Name of Resident: Rafael Lieberman ATTENDING PHYSICIAN STATEMENT I saw and evaluated the patient. I reviewed the resident's note and discussed the case with the resident. I agree with the resident's findings and plan as documented. SUBJECTIVE: Feels okay - no complaints. Expressed frustration at being hospitalized for so long. No shortness of breath/cough/sputum/fever/chills. OBJECTIVE: Afebrile, Hemodynamically Stable, Tachycardia Last Vital Signs Temp Pulse Resp BP Pulse Ox 98 F 116 H 20 150/92 96 06/07/18 10:00 06/07/18 10:00 06/07/18 10:06/07/18 10:06/06/18 21:00 HEENT- Atraumatic, Normocephalic. Heart - S1, S2, Tachy Lungs - few basal crackles Abdomen - soft, non-tender. Extremities - bilateral edema, gangrene L foot - dorsum and toes - no superimposed cellulitis. Laboratory Results - last 24 hr 06/06/18 06/06/18 06/07/18 17:27 21:11 05:30 WBC 11.9 H RBC 3.58 L Hgb 11.2 L Hct 33.4 L MCV 93.4 MCH 31.2 MCHC 33.5 RDW 21.5 H Plt Count 196 MPV 8.8 Absolute Neuts (auto) 9.6 H Neutrophils % 81.0 Lymphocytes % 7.2 L Monocytes % 8.3 Eosinophils % 2.5 Basophils % 1.0 Nucleated RBC % 0 Sodium Potassium Chloride Carbon Dioxide Anion Gap BUN Creatinine Creat Clearance w eGFR POC Glucometer 217 257 Random Glucose Calcium Magnesium Total Bilirubin AST ALT Alkaline Phosphatase Total Protein Albumin 06/07/18 06/07/18 06/07/18 05:30 05:47 12:08 WBC RBC Hgb Hct MCV MCH MCHC RDW Plt Count MPV Absolute Neuts (auto) Neutrophils % Lymphocytes % Monocytes % Eosinophils % Basophils % Nucleated RBC % Sodium 132 L Potassium 3.1 L Chloride 89 L Carbon Dioxide 33 H Anion Gap 10 BUN 85 H Creatinine 2.8 H Creat Clearance w eGFR 23.00 POC Glucometer 206 271 Random Glucose 189 H Calcium 7.3 L Magnesium 1.9 Total Bilirubin 0.6 AST 66 H ALT 27 Alkaline Phosphatase 248 H Total Protein 5.3 L Albumin 2.0 L Current Medications Generic Name Dose Route Start Last Admin Trade Name Freq PRN Reason Stop Dose Admin Acetaminophen 650 mg 05/29/18 15:41 06/05/18 11:21 Tylenol - PO 650 mg Q4H PRN Administration PAIN Aspirin 81 mg 05/28/18 11:38 06/07/18 09:15 Asa - PO 81 mg DAILY MANJU Administration Atorvastatin Calcium 40 mg 05/28/18 22:00 06/06/18 21:13 Lipitor - PO 40 mg HS MANJU Administration Budesonide/Formoterol Fumarate 2 puff 05/28/18 22:00 06/07/18 09:15 Symbicort 80/4.5mcg - IH 2 puff BID MANJU Administration Cholecalciferol 2,000 unit 05/29/18 10:00 06/07/18 09:12 Vitamin D3 - PO 2,000 unit DAILY MANJU Administration Clopidogrel Bisulfate 75 mg 05/28/18 11:38 06/07/18 09:15 Plavix - PO 75 mg DAILY MANJU Administration Collagenase 1 applic 05/31/18 10:00 06/07/18 09:16 Santyl - TP 1 applic DAILY MANJU Administration Protocol Cyclobenzaprine HCl 5 mg 05/28/18 22:00 06/06/18 21:13 Cyclobenzaprine Hcl PO 5 mg HS MANJU Administration Docusate Sodium 100 mg 05/28/18 14:00 06/07/18 06:29 Colace - PO Not Given TID MANJU Ceftriaxone Sodium 2 gm/ 100 mls @ 200 mls/hr 06/02/18 14:15 06/07/18 09:12 Dextrose IVPB 200 mls/hr DAILY MANJU Administration Protocol Milrinone Lactate/Dextrose 20,000 mcg in 100 mls @ 6.559 mls/hr 06/04/18 12: 00 06/07/18 06:54 Milrinone 20mg/100ml Ivpb - IVPB 0.25 mcg/kg/min TITR MANJU 6.6 mls/hr Infusion 0.25 MCG/KG/MIN Furosemide 100 mg/ Sodium 100 mls @ 7.5 mls/hr 06/04/18 14:00 06/07/18 06:54 Chloride IVPB 7.5 mls/hr ASDIR MANJU Infusion Insulin Aspart 1 vial 05/28/18 16:30 06/07/18 12:30 Novolog Vial Sliding Scale - SQ 6 units ACHS MANJU Administration Protocol Lactulose 20 gm 06/01/18 10:00 06/07/18 09:15 Cephulac (Oral Use) PO 20 gm DAILY MANJU Administration Metoprolol Succinate 150 mg 06/02/18 13:46 06/07/18 09:13 Toprol Xl - PO 150 mg BID MANJU Administration Ondansetron HCl 4 mg 06/03/18 14:32 Zofran Injection IVPUSH Q6H PRN NAUSEA AND/OR VOMITING Ranitidine HCl 150 mg 05/28/18 22:00 06/06/18 21:13 Zantac - PO 150 mg HS MANJU Administration ASSESSMENT AND PLAN: 63 year old male with history of Chronic Systolic CHF, HTN, DM 2, CKD 3, COPD, PAD s/p bilateral SFA occlusions, CAD s/p CABG 2012, Atrial Fibrillation s/p Watchman Devise in 04/20/2018 at [facility], s/p AICD for NSVT, s/p Bioprosthetic AVR, poor historian presented with increasing SOB and LE edema, and treated for decompensated CHF. 1. Acute on Chronic Systolic CHF Exacerbation Continue Lasix and Milrinone drips - Cardio following. Renal function stable. Daily weight, I/Os. 2. Hypokalemia secondary to Lasix diuresis Will replete. 3. L foot gangrene secondary to PAD Arteril Doppler result still pending. Further management as per Vascular Sx and Podiatry. Wound Care. Day 6 IV Ceftriaxone. 4. ERROL on CKD 3 - Creatinine improving. Will continue to monitor renal function on Lasix and Milrinone drips. 5. Atrial Fibrillation/Flutter - with RVR, HR persistently elevated. s/p watchman device 04/20 Toprol XL increased to 150mg daily Further management as per Cardiology. On Aspirin/Plavix as per post-Watchman protocol. 6. CAD s/p CABG 2012 Continue Aspirin, Plavix, Toprol, Statin. 7. DM 2 - Maintain on Novolog sliding scale. 8. HTN - BP on higher side. Continue Toprol XL 9. COPD - Stable. Continue Symbicort DVT Px - Heparin SQ
--- NOTE | 2018-06-07 13:48 | PN ---
Physical Exam: SUBJECTIVE: Patient seen and examined States breathing has improved swelling in legs gas decreased. Pt is on lasix and milrinone drip. OBJECTIVE: Vital Signs Period Temp Pulse Resp BP Sys/El Pulse Ox Last 24 Hr 97.0 F-98 F 116-119 18-22 132-157/65-96 96-98 GENERAL: Awake, alert, and fully oriented, in acute distress. HEAD: Normal with no signs of trauma. EYES: Pupils equal, round and reactive to light, EARS, NOSE, THROAT: Moist mucous membranes. NECK: Normal range of motion, supple without lymphadenopathy, JVP distended , or masses. LUNGS: B/l air entry present,mild crackels b/l ABDOMEN: Soft, nontender, not distended, normoactive bowel sounds, no guarding, no rebound, no masses. UPPER EXTREMITIES: 2+ pulses, warm, well-perfused. LOWER EXTREMITIES: pitting edema B/l decreasing, dry to wet gangrene present on left foot, no foul smell PSYCHIATRIC: Cooperative. SKIN: Warm, dry, Laboratory Results - last 24 hr 06/06/18 06/06/18 06/07/18 17:27 21:11 05:30 WBC 11.9 H RBC 3.58 L Hgb 11.2 L Hct 33.4 L MCV 93.4 MCH 31.2 MCHC 33.5 RDW 21.5 H Plt Count 196 MPV 8.8 Absolute Neuts (auto) 9.6 H Neutrophils % 81.0 Lymphocytes % 7.2 L Monocytes % 8.3 Eosinophils % 2.5 Basophils % 1.0 Nucleated RBC % 0 Sodium Potassium Chloride Carbon Dioxide Anion Gap BUN Creatinine Creat Clearance w eGFR POC Glucometer 217 257 Random Glucose Calcium Magnesium Total Bilirubin AST ALT Alkaline Phosphatase Total Protein Albumin 06/07/18 06/07/18 06/07/18 05:30 05:47 12:08 WBC RBC Hgb Hct MCV MCH MCHC RDW Plt Count MPV Absolute Neuts (auto) Neutrophils % Lymphocytes % Monocytes % Eosinophils % Basophils % Nucleated RBC % Sodium 132 L Potassium 3.1 L Chloride 89 L Carbon Dioxide 33 H Anion Gap 10 BUN 85 H Creatinine 2.8 H Creat Clearance w eGFR 23.00 POC Glucometer 206 271 Random Glucose 189 H Calcium 7.3 L Magnesium 1.9 Total Bilirubin 0.6 AST 66 H ALT 27 Alkaline Phosphatase 248 H Total Protein 5.3 L Albumin 2.0 L Active Medications Generic Name Dose Route Start Last Admin Trade Name Williamq PRN Reason Stop Dose Admin Acetaminophen 650 mg 05/29/18 15:41 06/05/18 11:21 Tylenol - PO 650 mg Q4H PRN Administration PAIN Aspirin 81 mg 05/28/18 11:38 06/07/18 09:15 Asa - PO 81 mg DAILY MANJU Administration Atorvastatin Calcium 40 mg 05/28/18 22:00 06/06/18 21:13 Lipitor - PO 40 mg HS MANJU Administration Budesonide/Formoterol Fumarate 2 puff 05/28/18 22:00 06/07/18 09:15 Symbicort 80/4.5mcg - IH 2 puff BID MANJU Administration Cholecalciferol 2,000 unit 05/29/18 10:00 06/07/18 09:12 Vitamin D3 - PO 2,000 unit DAILY MANJU Administration Clopidogrel Bisulfate 75 mg 05/28/18 11:38 06/07/18 09:15 Plavix - PO 75 mg DAILY MANJU Administration Collagenase 1 applic 05/31/18 10:00 06/07/18 09:16 Santyl - TP 1 applic DAILY MANJU Administration Protocol Cyclobenzaprine HCl 5 mg 05/28/18 22:00 06/06/18 21:13 Cyclobenzaprine Hcl PO 5 mg HS MANJU Administration Docusate Sodium 100 mg 05/28/18 14:00 06/07/18 06:29 Colace - PO Not Given TID MANJU Ceftriaxone Sodium 2 gm/ 100 mls @ 200 mls/hr 06/02/18 14:15 06/07/18 09:12 Dextrose IVPB 200 mls/hr DAILY MANJU Administration Protocol Milrinone Lactate/Dextrose 20,000 mcg in 100 mls @ 6.559 mls/hr 06/04/18 12: 00 06/07/18 06:54 Milrinone 20mg/100ml Ivpb - IVPB 0.25 mcg/kg/min TITR MANJU 6.6 mls/hr Infusion 0.25 MCG/KG/MIN Furosemide 100 mg/ Sodium 100 mls @ 7.5 mls/hr 06/04/18 14:00 06/07/18 06:54 Chloride IVPB 7.5 mls/hr ASDIR MANJU Infusion Insulin Aspart 1 vial 05/28/18 16:30 06/07/18 12:30 Novolog Vial Sliding Scale - SQ 6 units ACHS MANJU Administration Protocol Lactulose 20 gm 06/01/18 10:00 06/07/18 09:15 Cephulac (Oral Use) PO 20 gm DAILY MANJU Administration Metoprolol Succinate 150 mg 06/02/18 13:46 06/07/18 09:13 Toprol Xl - PO 150 mg BID AMNJU Administration Ondansetron HCl 4 mg 06/03/18 14:32 Zofran Injection IVPUSH Q6H PRN NAUSEA AND/OR VOMITING Potassium Chloride 40 meq 06/07/18 14:00 Potassium Chloride Oral Liquid PO 06/07/18 22:01 BID MANJU Ranitidine HCl 150 mg 05/28/18 22:00 06/06/18 21:13 Zantac - PO 150 mg HS MANJU Administration ASSESSMENT/PLAN: (1) Acute exacerbation of CHF (congestive heart failure) swelling in legs getting better. We will discuss with nephrology and cardiology if we can dc lasix dip and start iv push lasix. Pt blood presure is also running high. UO 300 Monitor vitals monior intake ouput on lasx infusion and milrinone low salt diet keep head end elevated daily weight/ cariology on case 2) PVD with dry to wet gangrene pt was taken to OR but had V tech so procedure was cancelled. duplex arterial scan report pending. Discussed with nephrology: pt is not a candidate for CTA as he has both renal and cardiac failure. vascular surgery on case pt on aspirin and plavix antibiotics as per ID 3 Hypokalemia replete potassium 4 Troponemia; likely demand or can be in setting of ckd 5 COPD (chronic obstructive pulmonary disease) chronic, O2 dependent continue nebs symbicort. no wheezing (6) Atrial fib/CAD Hr still high. s/p watchman's device 04/2018 on aspirin and plavix. metoprolol xl 150 bid continue asa/plavix x 3 months continue statin cardiac monitoring cardiology following (7) Chronic kidney disease (CKD) (8) Diabetes hold oral hypoglycemia started on insulin sliding scale bgm monitoring (6) HTN (hypertension) -controlled (9 ) Low back pain -chronic -PT -analgesics prn - continue cyclobenzaprine (8) Anemia in chronic kidney disease Hb stable Fluid: orally allowed : free water intake< 1L electrolyte:repeat in am nutrition: low salt and fat diet dvt pro heparin sq gi pro zantac Visit type - Emergency Visit Emergency Visit: Yes ED Registration Date: 05/28/18 Care time: The patient presented to the Emergency Department on the above date and was hospitalized for further evaluation of their emergent condition. - New Patient This patient is new to me today: No - Critical Care Critical Care patient: No
--- NOTE | 2018-06-07 14:31 | PN ---
Progress Note, Physician - Current Medication List Current Medications: Active Medications Acetaminophen (Tylenol -) 650 mg PO Q4H PRN PRN Reason: PAIN Last Admin: 06/05/18 11:21 Dose: 650 mg Aspirin (Asa -) 81 mg PO DAILY [facility] Last Admin: 06/07/18 09:15 Dose: 81 mg Atorvastatin Calcium (Lipitor -) 40 mg PO HS MANJU Last Admin: 06/06/18 21:13 Dose: 40 mg Budesonide/Formoterol Fumarate (Symbicort 80/4.5mcg -) 2 puff IH BID [facility] Last Admin: 06/07/18 09:15 Dose: 2 puff Cholecalciferol (Vitamin D3 -) 2,000 unit PO DAILY [facility] Last Admin: 06/07/18 09:12 Dose: 2,000 unit Clopidogrel Bisulfate (Plavix -) 75 mg PO DAILY [facility] Last Admin: 06/07/18 09:15 Dose: 75 mg Collagenase (Santyl -) 1 applic TP DAILY [facility]; Protocol Last Admin: 06/07/18 09:16 Dose: 1 applic Cyclobenzaprine HCl (Cyclobenzaprine Hcl) 5 mg PO HS [facility] Last Admin: 06/06/18 21:13 Dose: 5 mg Docusate Sodium (Colace -) 100 mg PO TID [facility] Last Admin: 06/07/18 06:29 Dose: Not Given Heparin Sodium (Porcine) (Heparin -) 5,000 unit SQ TID [facility] Ceftriaxone Sodium 2 gm/ (Dextrose) 100 mls @ 200 mls/hr IVPB DAILY [facility]; Protocol Last Admin: 06/07/18 09:12 Dose: 200 mls/hr Milrinone Lactate/Dextrose (Milrinone 20mg/100ml Ivpb -) 20,000 mcg in 100 mls @ 6.559 mls/hr IVPB TITR MANJU Last Infusion: 06/07/18 06:54 Dose: 0.25 mcg/kg/min, 6.6 mls/hr Furosemide 100 mg/ Sodium (Chloride) 100 mls @ 7.5 mls/hr IVPB ASDIR [facility] Last Infusion: 06/07/18 06:54 Dose: 7.5 mls/hr Insulin Aspart (Novolog Vial Sliding Scale -) 1 vial SQ ACHS [facility]; Protocol Last Admin: 06/07/18 12:30 Dose: 6 units Lactulose (Cephulac (Oral Use)) 20 gm PO DAILY [facility] Last Admin: 06/07/18 09:15 Dose: 20 gm Metoprolol Succinate (Toprol Xl -) 150 mg PO BID [facility] Last Admin: 06/07/18 09:13 Dose: 150 mg Ondansetron HCl (Zofran Injection) 4 mg IVPUSH Q6H PRN PRN Reason: NAUSEA AND/OR VOMITING Potassium Chloride (Potassium Chloride Oral Liquid) 40 meq PO BID [facility] Stop: 06/07/18 22:01 Ranitidine HCl (Zantac -) 150 mg PO HS [facility] Last Admin: 06/06/18 21:13 Dose: 150 mg - Objective Vital Signs: Vital Signs Temperature 98 F 06/07/18 10:00 Pulse Rate 116 H 06/07/18 10:00 Respiratory Rate 20 06/07/18 10:00 Blood Pressure 150/92 06/07/18 10:00 O2 Sat by Pulse Oximetry (%) 98 06/07/18 09:00 Labs: CBC, BMP 06/07/18 05:30 06/07/18 05:30 INR, PTT INR 1.58 (0.83-1.09) H 05/28/18 02:29
[2018-06-07] MEDS: MILRINONE 20MG/100ML IVPB - 20,000 MCG/100 ML ML IVPB SCH (14:41)
[2018-06-07] MEDS: HEPARIN NA (PORCINE) 5,000 UNITS/ML 1ML VIAL SQ SCH ×2 (14:42→22:42)
[2018-06-07] MEDS: POTASSIUM CHLORIDE ORAL LIQUID 20 MEQ/15 ML PO SCH ×2 (14:42→22:45)
--- NOTE | 2018-06-07 15:00 | PN ---
Progress Note (short form) - Note Progress Note: s: no chest pain, palps, dizziness. sob and edema improved today, weight stable Current Medications Acetaminophen (Tylenol -) 650 mg PO Q4H PRN PRN Reason: PAIN Last Admin: 06/05/18 11:21 Dose: 650 mg Aspirin (Asa -) 81 mg PO DAILY [facility] Last Admin: 06/07/18 09:15 Dose: 81 mg Atorvastatin Calcium (Lipitor -) 40 mg PO HS [facility] Last Admin: 06/06/18 21:13 Dose: 40 mg Budesonide/Formoterol Fumarate (Symbicort 80/4.5mcg -) 2 puff IH BID [facility] Last Admin: 06/07/18 09:15 Dose: 2 puff Cholecalciferol (Vitamin D3 -) 2,000 unit PO DAILY [facility] Last Admin: 06/07/18 09:12 Dose: 2,000 unit Clopidogrel Bisulfate (Plavix -) 75 mg PO DAILY [facility] Last Admin: 06/07/18 09:15 Dose: 75 mg Collagenase (Santyl -) 1 applic TP DAILY [facility]; Protocol Last Admin: 06/07/18 09:16 Dose: 1 applic Cyclobenzaprine HCl (Cyclobenzaprine Hcl) 5 mg PO HS [facility] Last Admin: 06/06/18 21:13 Dose: 5 mg Docusate Sodium (Colace -) 100 mg PO TID [facility] Last Admin: 06/07/18 14:42 Dose: 100 mg Heparin Sodium (Porcine) (Heparin -) 5,000 unit SQ TID [facility] Last Admin: 06/07/18 14:42 Dose: 5,000 unit Ceftriaxone Sodium 2 gm/ (Dextrose) 100 mls @ 200 mls/hr IVPB DAILY [facility]; Protocol Last Admin: 06/07/18 09:12 Dose: 200 mls/hr Milrinone Lactate/Dextrose (Milrinone 20mg/100ml Ivpb -) 20,000 mcg in 100 mls @ 6.559 mls/hr IVPB TITR [facility] Last Admin: 06/07/18 14:41 Dose: 0.25 mcg/kg/min, 6.6 mls/hr Furosemide 100 mg/ Sodium (Chloride) 100 mls @ 7.5 mls/hr IVPB ASDIR [facility] Last Infusion: 06/07/18 06:54 Dose: 7.5 mls/hr Insulin Aspart (Novolog Vial Sliding Scale -) 1 vial SQ ACHS [facility]; Protocol Last Admin: 06/07/18 12:30 Dose: 6 units Lactulose (Cephulac (Oral Use)) 20 gm PO DAILY [facility] Last Admin: 06/07/18 09:15 Dose: 20 gm Metoprolol Succinate (Toprol Xl -) 150 mg PO BID [facility] Last Admin: 06/07/18 09:13 Dose: 150 mg Ondansetron HCl (Zofran Injection) 4 mg IVPUSH Q6H PRN PRN Reason: NAUSEA AND/OR VOMITING Potassium Chloride (Potassium Chloride Oral Liquid) 40 meq PO BID [facility] Stop: 06/07/18 22:01 Last Admin: 06/07/18 14:42 Dose: Not Given Ranitidine HCl (Zantac -) 150 mg PO [facility] Last Admin: 06/06/18 21:13 Dose: 150 mg - Objective Vital Signs Period Temp Pulse Resp BP Sys/El Pulse Ox Last 24 Hr 97.0 F-98 F 116-119 18-20 134-157/87-96 96-98 Intake & Output 06/04/18 06/05/18 06/06/18 06/07/18 23:59 23:59 23:59 23:59 Intake Total 1509.5 1106 985.2 368 Output Total 600 8058 125 0129 Balance 909.5 -294 485.2 -1382 Weight 192 lb 193 lb 12.8 oz 193 lb 6 oz 194 lb 6.4 oz Constitutional: Yes: No Distress, Calm Eyes: No: Sclera Icterus HENT: No: Nasal Congestion Cardiovascular: Yes: Regular Rate and Rhythm, JVD (to jaw), S1, S2, Other (PMI non diplaced). No: Gallop, Murmur Respiratory: Yes: CTA Bilaterally, Diminished (L base). No: Accessory Muscle Use, Rales, Wheezes Gastrointestinal: Yes: Normal Bowel Sounds, Soft. No: Tenderness Musculoskeletal: Yes: Other (No kyphosis) Extremities: No: Cold Edema: 1+ le edema bl Integumentary: No: Jaundice, gangrene of left toes, no diaphoresis Neurological: Yes: Alert, Oriented (x3) Psychiatric: No: Agitated Assessment/Plan ECG: AFL, V-P, PVCs, LVH, no sig change prior CXR: no sig change CT head: L thalamic infarct, unchanged from prior echo 06/2016: sev dec lvef, global hk, rv tds, trinity, mod-sev mr, mod tr, rvsp 50- 60 echo 06/2015: mild lve, mod-sev dec lvef, mod lae, nl rv size, mild dec rv fcn, mild-mod mr, mild tr, nl avr fcn, rvsp 30-40 04/14/18 ECHO MSH - moderate left ventricular dilatation overall severe decreased left ventricular systolic function (diffuse); estimated ejection fraction = 30 % The posterior wall is severely hypokinetic. Restrictive diastolic dysfunction normal right ventricular size moderate decreased right ventricular function aortic prosthesis (tissue) no evidence for aortic regurgitation moderate to severe mitral regurgitation mild to moderate tricuspid regurgitation moderate to severe pulmonary hypertension minimal pulmonic regurgitation no evidence for pericardial effusion technically difficult study Definity precision microbubble contrast used to enhance endocardial border definition mibi 06/2016 (pers): non-diagnostic STs; large area inferior/inferolateral/ lateral scar; no ischemia; severe LV cavity dilation; global HK with akinesis of inferior/inferolat/lateral allan; EF 16% mibi 09/2014: large inf scar, mod anteroapical ischemia, lvef 25% tele: AFL HR ok. Vs >> [employer]. nsvt 6 beats a/p: 62 m hx copd, cabgx3 2012, bio avr 2012, pad s/p b/l sfa occlusions, syst chf s/p medtronic icd, htn, hld, a-tach, here with back pain, sob. acute on chronic systolic CHF exacerbation: -recent dc for chf, was doing well but then stopped taking his lasix and other meds for several days and now back with acute chf (second recent admit for med noncompliance) -goal dry wt around 180lbs, on admission 197lbs -was on lasix 80 po daily at home. -05/28- on 80 iv lasix bid with dec Cr, weight down - 05/30 weight charted stable at 193 lbs, however patient says he was not weighed today, renal function improving, edema better - continue same lasix 80 mg IV BID - 05/31 wt unchanged at 193, above dry wt. poor diuretic response to lasix 80 iv per patient. he is well-compensated with JVD but no peripheral edema, no sob at rest, + L effusion on cxr. increase lasix to 100 iv bid, will give one time test dose metolazone 2.5 today. improved AF rate control, as disc 'd - 06/01: wt stable with increased lasix dose to 100 mg IV BID and one time metolazone. will give metolazone 5 mg x 1 prior to PM dose - 06/02: wt stable, dyspnea worsening. Cr rising today, d/w nephrology will continue same lasix 100 mg IV BID, increase metolazone and give prior to PM dose -06/03: No sig change in wt but pt pt reports sob a little better and he is laying flat in bed today comfortably. cont same lasix today. -06/04: No sig improvement in vol status and cr worsening. Will start milrinone gtt and lasix gtt to see if can improve diuresis. check daily chem7 and wts. -cont metoprolol. not on ACEI due to h/o hyperkalemia -06/05: Subjectively feels improved on inotropic support. Will continue. Needs aggressive K repletion, 3.3 today. Creat 2.8 -06/06: Continue Lasix gtt at 7.5/hr andf Milrinone at 0.25 mcg/kg/min. Continue K repletion. Creat stable. Check Magnesium -06/07: feels better on lasix gtt and milrinone, however weight and Cr stable. d/ w nephrology, PMD - will trial off milrinone, restart lasix bolus doses 100 mg IV BID L foot gangrene, h/o PAD, CV preop eval: -wound care, abx per podiatry/vascular -angiogram planned when chf improves CKD: -baseline creatinine 2-2.5 -renal following, Cr stable atrial flutter: -pt in persistent AFL. HR control suboptimal. - increase metoprolol to 150 mg BID, still having high rates -CHADS VASC 5. prohibitive falls risk, transferred to [place] recently for evaluation--randomized in Watchman trial -s/p watchman device 04/20--discharged on aspirin and plavix for 3 months protocol. continue same cad/hx of CABG 2012 -no recent angina/ischemia -no signs acs -trop chronically in intermediate range, no significant change in current value , trend for now -cont prior cad med regimen: asa, statin, bb, ccb mitral regurgitation: -likely functional MR, mild-mod on echo 06/19, then "mod-severe" when here 06/20 with suspected acute chf and pulm pressures up (though at risk for overestimation of MR severity on that echo report), mod to severe [place] [facility] [place]reassess MR severity on echo as outpt--pt would be a candidate for transcatheter [place]-clip repair (per COAPT study data) if severe MR persists despite optimization of volume status and LV remodeling med regimen +/- CHASS[employer]IVER NSVT - longest 24 beats, s/p ICD - cont bb bio avr: -nl fcn on echo 04/2018 CVA: -age indeterminate L thalamic stroke on CT here 03/2019 -now s/p Watchman device 04/2018, cont aspirin and plavix s/p icd: -no shocks -routine outpt monitoring htn: -bp stable -cont home meds
--- NOTE | 2018-06-07 16:16 | PN ---
Progress Note, Physician History of Present Illness: Pt seen and examined at bedside. He is awake and alert. He does not feel much different than yesterday. - Current Medication List Current Medications: Active Medications Acetaminophen (Tylenol -) 650 mg PO Q4H PRN PRN Reason: PAIN Last Admin: 06/05/18 11:21 Dose: 650 mg Aspirin (Asa -) 81 mg PO DAILY [facility] Last Admin: 06/07/18 09:15 Dose: 81 mg Atorvastatin Calcium (Lipitor -) 40 mg PO HS [facility]JU Last Admin: 06/06/18 21:13 Dose: 40 mg Budesonide/Formoterol Fumarate (Symbicort 80/4.5mcg -) 2 puff IH BID [facility] Last Admin: 06/07/18 09:15 Dose: 2 puff Cholecalciferol (Vitamin D3 -) 2,000 unit PO DAILY [facility] Last Admin: 06/07/18 09:12 Dose: 2,000 unit Clopidogrel Bisulfate (Plavix -) 75 mg PO DAILY [facility] Last Admin: 06/07/18 09:15 Dose: 75 mg Collagenase (Santyl -) 1 applic TP DAILY [facility]; Protocol Last Admin: 06/07/18 09:16 Dose: 1 applic Cyclobenzaprine HCl (Cyclobenzaprine Hcl) 5 mg PO HS [facility] Last Admin: 06/06/18 21:13 Dose: 5 mg Docusate Sodium (Colace -) 100 mg PO TID [facility] Last Admin: 06/07/18 14:42 Dose: 100 mg Heparin Sodium (Porcine) (Heparin -) 5,000 unit SQ TID [facility] Last Admin: 06/07/18 14:42 Dose: 5,000 unit Ceftriaxone Sodium 2 gm/ (Dextrose) 100 mls @ 200 mls/hr IVPB DAILY [facility]; Protocol Last Admin: 06/07/18 09:12 Dose: 200 mls/hr Milrinone Lactate/Dextrose (Milrinone 20mg/100ml Ivpb -) 20,000 mcg in 100 mls @ 6.559 mls/hr IVPB TITR [facility] Last Admin: 06/07/18 14:41 Dose: 0.25 mcg/kg/min, 6.6 mls/hr Furosemide 100 mg/ Sodium (Chloride) 100 mls @ 7.5 mls/hr IVPB ASDIR MANJU Last Infusion: 06/07/18 06:54 Dose: 7.5 mls/hr Insulin Aspart (Novolog Vial Sliding Scale -) 1 vial SQ ACHS [facility]; Protocol Last Admin: 06/07/18 12:30 Dose: 6 units Lactulose (Cephulac (Oral Use)) 20 gm PO DAILY [facility] Last Admin: 06/07/18 09:15 Dose: 20 gm Metoprolol Succinate (Toprol Xl -) 150 mg PO BID [facility] Last Admin: 06/07/18 09:13 Dose: 150 mg Ondansetron HCl (Zofran Injection) 4 mg IVPUSH Q6H PRN PRN Reason: NAUSEA AND/OR VOMITING Potassium Chloride (Potassium Chloride Oral Liquid) 40 meq PO BID [facility] Stop: 06/07/18 22:01 Last Admin: 06/07/18 14:42 Dose: Not Given Ranitidine HCl (Zantac -) 150 mg PO [facility] Last Admin: 06/06/18 21:13 Dose: 150 mg - Objective Vital Signs: Vital Signs Temperature 98 F 06/07/18 10:00 Pulse Rate 116 H 06/07/18 10:00 Respiratory Rate 20 06/07/18 10:00 Blood Pressure 150/92 06/07/18 10:00 O2 Sat by Pulse Oximetry (%) 98 06/07/18 09:00 Constitutional: Yes: Calm Eyes: Yes: Conjunctiva Clear HENT: Yes: Atraumatic Neck: Yes: Supple Cardiovascular: Yes: S1, S2 Respiratory: Yes: On Nasal O2 Gastrointestinal: Yes: Soft Genitourinary: Yes: WNL Extremities: Yes: Other (left foot toe gangrene) Edema: Yes Neurological: Yes: Oriented Psychiatric: Yes: Oriented Labs: CBC, BMP 06/07/18 05:30 06/07/18 05:30 INR, PTT INR 1.58 (0.83-1.09) H 05/28/18 02:29 Assessment/Plan Current Medications Generic Name Dose Route Start Last Admin Trade Name Freq PRN Reason Stop Dose Admin Acetaminophen 650 mg 05/29/18 15:41 06/05/18 11:21 Tylenol - PO 650 mg Q4H PRN Administration PAIN Aspirin 81 mg 05/28/18 11:38 06/07/18 09:15 Asa - PO 81 mg DAILY [facility] Administration Atorvastatin Calcium 40 mg 05/28/18 22:00 06/06/18 21:13 Lipitor - PO 40 mg HS MANJU Administration Budesonide/Formoterol Fumarate 2 puff 05/28/18 22:00 06/07/18 09:15 Symbicort 80/4.5mcg - IH 2 puff BID MANJU Administration Cholecalciferol 2,000 unit 05/29/18 10:00 06/07/18 09:12 Vitamin D3 - PO 2,000 unit DAILY [facility] Administration Clopidogrel Bisulfate 75 mg 05/28/18 11:38 06/07/18 09:15 Plavix - PO 75 mg DAILY [facility] Administration Collagenase 1 applic 05/31/18 10:00 06/07/18 09:16 Santyl - TP 1 applic DAILY [facility] Administration Protocol Cyclobenzaprine HCl 5 mg 05/28/18 22:00 06/06/18 21:13 Cyclobenzaprine Hcl PO 5 mg HS MANJU Administration Docusate Sodium 100 mg 05/28/18 14:00 06/07/18 14:42 Colace - PO 100 mg TID MANJU Administration Heparin Sodium (Porcine) 5,000 unit 06/07/18 14:00 06/07/18 14:42 Heparin - SQ 5,000 unit TID MANJU Administration Ceftriaxone Sodium 2 gm/ 100 mls @ 200 mls/hr 06/02/18 14:15 06/07/18 09:12 Dextrose IVPB 200 mls/hr DAILY [facility] Administration Protocol Milrinone Lactate/Dextrose 20,000 mcg in 100 mls @ 6.559 mls/hr 06/04/18 12: 00 06/07/18 14:41 Milrinone 20mg/100ml Ivpb - IVPB 0.25 mcg/kg/min TITR MANJU 6.6 mls/hr Administration 0.25 MCG/KG/MIN Furosemide 100 mg/ Sodium 100 mls @ 7.5 mls/hr 06/04/18 14:00 06/07/18 06:54 Chloride IVPB 7.5 mls/hr ASDIR MANJU Infusion Insulin Aspart 1 vial 05/28/18 16:30 06/07/18 12:30 Novolog Vial Sliding Scale - SQ 6 units ACHS MAN[facility]U Administration Protocol Lactulose 20 gm 06/01/18 10:00 06/07/18 09:15 Cephulac (Oral Use) PO 20 gm DAILY [facility] Administration Metoprolol Succinate 150 mg 06/02/18 13:46 06/07/18 09:13 Toprol Xl - PO 150 mg BID MANJU Administration Ondansetron HCl 4 mg 06/03/18 14:32 Zofran Injection IVPUSH Q6H PRN NAUSEA AND/OR VOMITING Potassium Chloride 40 meq 06/07/18 14:00 06/07/18 14:42 Potassium Chloride Oral Liquid PO 06/07/18 22:01 Not Given BID MANJU Ranitidine HCl 150 mg 05/28/18 22:00 06/06/18 21:13 Zantac - PO 150 mg HS MANJU Administration Impression 1. CKD 2. proteinuria 3. CAD 4. CHF 5. COPD 6. DM 7. HTN 8. azotemia/fior 9. anemia 10. PVD Plan - replace potassium - monitor lytes - pt still on milrinone and lasix - weight not changed much - cardio follow up, discussed with them - fior in part cardiorenal - vascular follow up - cont wound care
[2018-06-07] MEDS ORDERED: PT OWN MED DRAWER 7, Y5N ONE (22:39)
[2018-06-07] MEDS: RANITIDINE HCL 150 MG TABLET (FP) PO SCH (22:43)
[2018-06-07] MEDS: ATORVASTATIN CA 40 MG TABLET (FP) PO SCH (22:43)
[2018-06-07] MEDS: CYCLOBENZAPRINE HCL 5 MG TABLET PO SCH (22:44)
[2018-06-08] MEDS: ACETAMINOPHEN 325 MG TABLET (FP) PO PRN (00:56)
[2018-06-08] MEDS: HEPARIN NA (PORCINE) 5,000 UNITS/ML 1ML VIAL SQ SCH ×3 (06:22→22:32)
[2018-06-08] MEDS: FUROSEMIDE 40 MG/4 ML INJECTABLE VIAL IVPUSH SCH ×2 (06:23→15:42)
[2018-06-08] MEDS: INSULIN SLIDING SCALE (NOVOLOG) 1 VIAL SQ SCH ×3 (06:23→22:31)
[2018-06-08] MEDS: DOCUSATE SODIUM 100 MG CAPSULE (FP) PO SCH ×4 (06:23→22:31)
[2018-06-08 07:11] LABS: HEMATOCRIT 35.1 % (35.4-49); HEMOGLOBIN 11.5 GM/dL (11.7-16.9); LYMPH % 9.8 % (8-40); MCH 31.4 pg (25.7-33.7); MCHC 32.8 g/dl (32.0-35.9); MEAN CELL VOLUME 95.8 fl (80-96); MEAN PLT VOLUME 8.9 fl (7.5-11.1); MONO % 8.7 % (3.8-10.2); NEUT % 78.4 % (42.8-82.8); PLATELET COUNT 190 K/MM3 (134-434); RBC 3.67 M/mm3 (4.00-5.60); RDW 22.7 % (11.9-15.9); WHITE BLOOD COUNT 13.3 K/mm3 (4.0-10.0)
[2018-06-08 07:12] LABS: BASO % 1.1 % (0-2.0)
[2018-06-08 08:18] LABS: ALBUMIN 2.3 g/dl (3.4-5.0); ALK PHOS 242 U/L (45-117); ANION GAP 10 MMOL/L (8-16); BILIRUBIN,TOTAL 0.5 mg/dL (0.2-1); BLOOD UREA NITROGEN 86 mg/dL (7-18); CALCIUM 7.5 mg/dL (8.5-10.1); CHLORIDE 88 mmol/L (98-107); CO2 34 mmol/L (21-32); CREATININE 2.7 mg/dL (0.55-1.3); GLUCOSE,RANDOM 110 mg/dL (74-106); PHOSPHOROUS 3.5 mg/dL (2.5-4.9); POTASSIUM 4.1 mmol/L (3.5-5.1); SGOT/AST 81 U/L (15-37); SGPT/ALT 38 U/L (13-61); SODIUM 132 mmol/L (136-145); TOT PROT 5.1 g/dl (6.4-8.2)
[2018-06-08] MEDS ORDERED: DEXTROSE 5%-WATER 100 ML IVPB ONE (09:59)
[2018-06-08] MEDS: ASPIRIN 81 MG CHEWABLE TABLETS PO SCH (10:55)
[2018-06-08] MEDS: CEFTRIAXONE 2 GM in DEXTROSE 5%-WATER 100 ML IVPB SCH (10:55)
[2018-06-08] MEDS: CLOPIDOGREL BISULFATE 75 MG TABLET (FP) PO SCH (10:55)
[2018-06-08] MEDS: LACTULOSE 20 GM/30 ML UDC (FOR ORAL USE ONLY) PO SCH (10:55)
[2018-06-08] MEDS: CHOLECALCIFEROL (VITAMIN D3) 1,000 UNIT TABLET (FP) PO SCH (10:55)
[2018-06-08] MEDS: BUDESONIDE/FORMETEROL FUMARATE 80/4.5 mcg INHALER IH SCH ×2 (10:56→22:32)
[2018-06-08] MEDS: COLLAGENASE CLOSTRIDIUM HIST. 30 GRAMS TUBE TP SCH (10:56)
--- NOTE | 2018-06-08 11:23 | PN ---
Teaching Attending Note Name of Resident: Rafael Lieberman ATTENDING PHYSICIAN STATEMENT I saw and evaluated the patient. I reviewed the resident's note and discussed the case with the resident. I agree with the resident's findings and plan as documented. SUBJECTIVE: Feels okay - no complaints. No CP/shortness of breath/cough/sputum/ fever/chills. No palpitations OBJECTIVE: Afebrile, Hemodynamically Stable, Tachycardia ongoing Last Vital Signs Temp Pulse Resp BP Pulse Ox 97.5 F L 116 H 18 130/96 98 06/08/18 05:34 06/08/18 05:34 06/08/18 05:34 06/08/18 05:34 06/07/18 23:25 HEENT- Atraumatic, Normocephalic. Heart - S1, S2, Tachy Lungs - few basal crackles Abdomen - soft, non-tender. Extremities - bilateral LE edema, chronic skin changes, gangrene L foot - dorsum and toes - no superimposed cellulitis. Laboratory Results - last 24 hr 06/07/18 06/07/18 06/07/18 12:08 16:54 22:42 WBC RBC Hgb Hct MCV MCH MCHC RDW Plt Count MPV Absolute Neuts (auto) Neutrophils % Lymphocytes % Monocytes % Eosinophils % Basophils % Nucleated RBC % Sodium Potassium Chloride Carbon Dioxide Anion Gap BUN Creatinine Creat Clearance w eGFR POC Glucometer 271 220 207 Random Glucose Calcium Phosphorus Magnesium Total Bilirubin AST ALT Alkaline Phosphatase Total Protein Albumin 06/08/18 06/08/18 06/08/18 05:14 05:30 05:30 WBC 13.3 H RBC 3.67 L Hgb 11.5 L Hct 35.1 L MCV 95.8 MCH 31.4 MCHC 32.8 RDW 22.7 H Plt Count 190 MPV 8.9 Absolute Neuts (auto) 10.5 H Neutrophils % 78.4 Lymphocytes % 9.8 D Monocytes % 8.7 Eosinophils % 2.0 Basophils % 1.1 Nucleated RBC % 0 Sodium 132 L Potassium 4.1 Chloride 88 L Carbon Dioxide 34 H Anion Gap 10 BUN 86 H Creatinine 2.7 H Creat Clearance w eGFR 23.99 POC Glucometer 121 Random Glucose 110 H Calcium 7.5 L Phosphorus 3.5 Magnesium 2.0 Total Bilirubin 0.5 AST 81 H ALT 38 Alkaline Phosphatase 242 H Total Protein 5.1 L Albumin 2.3 L Current Medications Generic Name Dose Route Start Last Admin Trade Name Ghada PRN Reason Stop Dose Admin Acetaminophen 650 mg 05/29/18 15:41 06/08/18 00:56 Tylenol - PO 650 mg Q4H PRN Administration PAIN Aspirin 81 mg 05/28/18 11:38 06/08/18 10:55 Asa - PO 81 mg DAILY [facility] Administration Atorvastatin Calcium 40 mg 05/28/18 22:00 06/07/18 22:43 Lipitor - PO 40 mg HS [facility]JNU Administration Budesonide/Formoterol Fumarate 2 puff 05/28/18 22:00 06/08/18 10:56 Symbicort 80/4.5mcg - IH 1 puff BID [facility]U Administration Cholecalciferol 2,000 unit 05/29/18 10:00 06/08/18 10:55 Vitamin D3 - PO 2,000 unit DAILY [facility] Administration Clopidogrel Bisulfate 75 mg 05/28/18 11:38 06/08/18 10:55 Plavix - PO 75 mg DAILY [facility] Administration Collagenase 1 applic 05/31/18 10:00 06/08/18 10:56 Santyl - TP 1 applic DAILY [facility] Administration Protocol Cyclobenzaprine HCl 5 mg 05/28/18 22:00 06/07/18 22:44 Cyclobenzaprine Hcl PO 5 mg HS [facility]U Administration Docusate Sodium 100 mg 05/28/18 14:00 06/08/18 07:05 Colace - PO Not Given TID MANJU Furosemide 100 mg 06/08/18 06:00 06/08/18 06:23 Lasix Injection - IVPUSH 100 mg BID@0600,1400 [facility] Administration Heparin Sodium (Porcine) 5,000 unit 06/07/18 14:00 06/08/18 06:22 Heparin - SQ 5,000 unit TID [facility] Administration Ceftriaxone Sodium 2 gm/ 100 mls @ 200 mls/hr 06/02/18 14:15 06/08/18 10:55 Dextrose IVPB 200 mls/hr DAILY [facility] Administration Protocol Insulin Aspart 1 vial 05/28/18 16:30 06/08/18 06:23 Novolog Vial Sliding Scale - SQ Not Given ACHS [facility]U Protocol Lactulose 20 gm 06/01/18 10:00 06/08/18 10:55 Cephulac (Oral Use) PO 20 gm DAILY [facility] Administration Metoprolol Succinate 150 mg 06/02/18 13:46 06/08/18 10:55 Toprol Xl - PO 150 mg BID [facility]U Administration Ondansetron HCl 4 mg 06/03/18 14:32 Zofran Injection IVPUSH Q6H PRN NAUSEA AND/OR VOMITING Ranitidine HCl 150 mg 05/28/18 22:00 06/07/18 22:43 Zantac - PO 150 mg HS MANJU Administration ASSESSMENT AND PLAN: 63 year old male with history of Chronic Systolic CHF, HTN, DM 2, CKD 3, COPD, PAD s/p bilateral SFA occlusions, CAD s/p CABG 2012, Atrial Fibrillation s/p Watchman [employer] in 04/20/2018 at [facility], s/p AICD for NSVT, s/p Bioprosthetic AVR, CVA (L thalamic infarct), poor historian presented with increasing SOB and LE edema, and treated for decompensated CHF. 1. Acute on Chronic Systolic CHF Exacerbation sec to Non-compliance (was on Lasix 80mg daily at home) Echo - EF 305 Milrinone drip [id number]. transitioned from Lasix drip to Lasix IV bolus at 100mg bid. Renal function stable. Daily weight, I/Os. 2. Hypokalemia secondary to Lasix diuresis Resolved s/p repletion 3. L foot gangrene secondary to PAD Arterial Doppler result - mild decrease in perfusion on L with moderate decrease in perfusion on R. Plan as per Vascular (Dr. Rousseau) - OR on for intra-op arteriogram and possible intervention. Day 7 IV Ceftriaxone. Wound Care. Podiatry also following. 4. ERROL on CKD 3 - Creatinine improving, currently close to baseline. Will continue to monitor renal function on Lasix. 5. Atrial Fibrillation/Flutter - with RVR, HR persistently elevated. s/p watchman device 04/20 Toprol XL increased to 150mg daily Further management as per Cardiology. On Aspirin/Plavix as per post-Watchman protocol. 6. CAD s/p CABG 2012 MIBI 06/2016 (pers): non-diagnostic STs; large area inferior/inferolateral/ lateral scar; no ischemia; severe LV cavity dilation; global HK with akinesis of inferior/inferolat/lateral allan. Continue Aspirin, Plavix, Toprol, Statin. 7. DM 2 - Maintain on Novolog sliding scale. 8. HTN - BP on higher side. Continue Toprol XL - for up-titration of meds by Cardiology. 9. COPD - Stable. Continue Symbicort 10. Mild to Moderate MR - for out-patient cardiology follow up as he may be a candidate for transcatheter delmar-clip repair if severe MR persists despite optimization of volume status and LV remodeling med regimen +/- [employer] (as per Cardiology). DVT Px - Heparin SQ
--- NOTE | 2018-06-08 12:16 | PN ---
Progress Note (short form) - Note Progress Note: s: no chest pain, palps, dizziness. sob stable, feels about baseline. Current Medications Acetaminophen (Tylenol -) 650 mg PO Q4H PRN PRN Reason: PAIN Last Admin: 06/08/18 00:56 Dose: 650 mg Aspirin (Asa -) 81 mg PO DAILY [facility] Last Admin: 06/08/18 10:55 Dose: 81 mg Atorvastatin Calcium (Lipitor -) 40 mg PO HS [facility] Last Admin: 06/07/18 22:43 Dose: 40 mg Budesonide/Formoterol Fumarate (Symbicort 80/4.5mcg -) 2 puff IH BID [facility] Last Admin: 06/08/18 10:56 Dose: 1 puff Cholecalciferol (Vitamin D3 -) 2,000 unit PO DAILY [facility] Last Admin: 06/08/18 10:55 Dose: 2,000 unit Clopidogrel Bisulfate (Plavix -) 75 mg PO DAILY [facility] Last Admin: 06/08/18 10:55 Dose: 75 mg Collagenase (Santyl -) 1 applic TP DAILY [facility]; Protocol Last Admin: 06/08/18 10:56 Dose: 1 applic Cyclobenzaprine HCl (Cyclobenzaprine Hcl) 5 mg PO HS [facility] Last Admin: 06/07/18 22:44 Dose: 5 mg Docusate Sodium (Colace -) 100 mg PO TID [facility] Last Admin: 06/08/18 07:05 Dose: Not Given Furosemide (Lasix Injection -) 100 mg IVPUSH BID@0600,1400 [facility] Last Admin: 06/08/18 06:23 Dose: 100 mg Heparin Sodium (Porcine) (Heparin -) 5,000 unit SQ TID [facility] Last Admin: 06/08/18 06:22 Dose: 5,000 unit Ceftriaxone Sodium 2 gm/ (Dextrose) 100 mls @ 200 mls/hr IVPB DAILY [facility]; Protocol Last Admin: 06/08/18 10:55 Dose: 200 mls/hr Insulin Aspart (Novolog Vial Sliding Scale -) 1 vial SQ ACHS [facility]; Protocol Last Admin: 06/08/18 06:23 Dose: Not Given Lactulose (Cephulac (Oral Use)) 20 gm PO DAILY [facility] Last Admin: 06/08/18 10:55 Dose: 20 gm Metoprolol Succinate (Toprol Xl -) 150 mg PO BID [facility] Last Admin: 06/08/18 10:55 Dose: 150 mg Ondansetron HCl (Zofran Injection) 4 mg IVPUSH Q6H PRN PRN Reason: NAUSEA AND/OR VOMITING Ranitidine HCl (Zantac -) 150 mg PO HS [facility] Last Admin: 06/07/18 22:43 Dose: 150 mg - Objective Vital Signs Period Temp Pulse Resp BP Sys/El Pulse Ox Last 24 Hr 97.2 F-98.7 F 116-120 18-22 129-144/64-96 98 Constitutional: Yes: No Distress, Calm Eyes: No: Sclera Icterus HENT: No: Nasal Congestion Cardiovascular: Yes: Regular Rate and Rhythm, JVD (to jaw), S1, S2, Other (PMI non diplaced). No: Gallop, Murmur Respiratory: Yes: CTA Bilaterally, freida rales at bases. No: Accessory Muscle Use , Rales, Wheezes Gastrointestinal: Yes: Normal Bowel Sounds, Soft. No: Tenderness Musculoskeletal: Yes: Other (No kyphosis) Extremities: No: Cold Edema: 1+ le edema bl Integumentary: No: Jaundice, gangrene of left toes, no diaphoresis Neurological: Yes: Alert, Oriented (x3) Psychiatric: No: Agitated Assessment/Plan ECG: AFL, V-P, PVCs, LVH, no sig change prior CXR: no sig change CT head: L thalamic infarct, unchanged from prior echo 06/2016: sev dec lvef, global hk, rv tds, trinity, mod-sev mr, mod tr, rvsp 50- 60 echo 06/2015: mild lve, mod-sev dec lvef, mod lae, nl rv size, mild dec rv fcn, mild-mod mr, mild tr, nl avr fcn, rvsp 30-40 04/14/18 ECHO MSH - moderate left ventricular dilatation overall severe decreased left ventricular systolic function (diffuse); estimated ejection fraction = 30 % The posterior wall is severely hypokinetic. Restrictive diastolic dysfunction normal right ventricular size moderate decreased right ventricular function aortic prosthesis (tissue) no evidence for aortic regurgitation moderate to severe mitral regurgitation mild to moderate tricuspid regurgitation moderate to severe pulmonary hypertension minimal pulmonic regurgitation no evidence for pericardial effusion technically difficult study Definity precision microbubble contrast used to enhance endocardial border definition mibi 06/2016 (pers): non-diagnostic STs; large area inferior/inferolateral/ lateral scar; no ischemia; severe LV cavity dilation; global HK with akinesis of inferior/inferolat/lateral allan; EF 16% mibi 09/2014: large inf scar, mod anteroapical ischemia, lvef 25% tele: AFL HR ok. Vs >> Photo Retoucher. nsvt 6 beats a/p: 62 m hx copd, cabgx3 2012, bio avr 2012, pad s/p b/l sfa occlusions, syst chf s/p medtronic icd, htn, hld, a-tach, here with back pain, sob. acute on chronic systolic CHF exacerbation: -recent dc for chf, was doing well but then stopped taking his lasix and other meds for several days and now back with acute chf (second recent admit for med noncompliance) -goal dry wt around 180lbs, on admission 197lbs -was on lasix 80 po daily at home. -05/28- on 80 iv lasix bid with dec Cr, weight down - 05/30 weight charted stable at 193 lbs, however patient says he was not weighed today, renal function improving, edema better - continue same lasix 80 mg IV BID - 05/31 wt unchanged at 193, above dry wt. poor diuretic response to lasix 80 iv per patient. he is well-compensated with JVD but no peripheral edema, no sob at rest, + L effusion on cxr. increase lasix to 100 iv bid, will give one time test dose metolazone 2.5 today. improved AF rate control, as disc 'd - 06/01: wt stable with increased lasix dose to 100 mg IV BID and one time metolazone. will give metolazone 5 mg x 1 prior to PM dose - 06/02: wt stable, dyspnea worsening. Cr rising today, d/w nephrology will continue same lasix 100 mg IV BID, increase metolazone and give prior to PM dose -06/03: No sig change in wt but pt pt reports sob a little better and he is laying flat in bed today comfortably. cont same lasix today. -06/04: No sig improvement in vol status and cr worsening. Will start milrinone gtt and lasix gtt to see if can improve diuresis. check daily chem7 and wts. -cont metoprolol. not on ACEI due to h/o hyperkalemia -06/05: Subjectively feels improved on inotropic support. Will continue. Needs aggressive K repletion, 3.3 today. Creat 2.8 -06/06: Continue Lasix gtt at 7.5/hr andf Milrinone at 0.25 mcg/kg/min. Continue K repletion. Creat stable. Check Magnesium -06/07: feels better on lasix gtt and milrinone, however weight and Cr stable. d/ w nephrology, PMD - will trial off milrinone, restart lasix bolus doses 100 mg IV BID -06/08: Cr improving on lasix 100 mg BID, weight stable. feels SOB is baseline today, still with significant JVD, rales on exam. continue IV lasix L foot gangrene, h/o PAD, CV preop eval: -wound care, abx per podiatry/vascular -angiogram planned when respiratory status optimized, continue diuresis as above CKD: -baseline creatinine 2-2.5 -renal following, Cr stable atrial flutter: -pt in persistent AFL. HR control suboptimal. - increase metoprolol to 150 mg BID, still having high rates -CHADS VASC 5. prohibitive falls risk, transferred to [place] recently for evaluation--randomized in Watchman trial -s/p watchman device 04/20--discharged on aspirin and plavix for 3 months protocol. continue same cad/hx of CABG 2012 -no recent angina/ischemia -no signs acs -trop chronically in intermediate range, no significant change in current value , trend for now -cont prior cad med regimen: asa, statin, bb, ccb mitral regurgitation: -likely functional MR, mild-mod on echo 06/19, then "mod-severe" when here 06/20 with suspected acute chf and pulm pressures up (though at risk for overestimation of MR severity on that echo report), mod to severe on echo at [facility] 04/2018 -reassess MR severity on echo as outpt--pt would be a candidate for transcatheter delmar-clip repair (per COAPT study data) if severe MR persists despite optimization of volume status and LV remodeling med regimen +/- [employer]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
--- NOTE | 2018-06-08 13:08 | PN ---
Progress Note, Physician - Current Medication List Current Medications: Active Medications Acetaminophen (Tylenol -) 650 mg PO Q4H PRN PRN Reason: PAIN Last Admin: 06/08/18 00:56 Dose: 650 mg Aspirin (Asa -) 81 mg PO DAILY [facility] Last Admin: 06/08/18 10:55 Dose: 81 mg Atorvastatin Calcium (Lipitor -) 40 mg PO HS [facility] Last Admin: 06/07/18 22:43 Dose: 40 mg Budesonide/Formoterol Fumarate (Symbicort 80/4.5mcg -) 2 puff IH BID [facility] Last Admin: 06/08/18 10:56 Dose: 1 puff Cholecalciferol (Vitamin D3 -) 2,000 unit PO DAILY [facility] Last Admin: 06/08/18 10:55 Dose: 2,000 unit Clopidogrel Bisulfate (Plavix -) 75 mg PO DAILY [facility] Last Admin: 06/08/18 10:55 Dose: 75 mg Collagenase (Santyl -) 1 applic TP DAILY [facility]; Protocol Last Admin: 06/08/18 10:56 Dose: 1 applic Cyclobenzaprine HCl (Cyclobenzaprine Hcl) 5 mg PO HS [facility] Last Admin: 06/07/18 22:44 Dose: 5 mg Docusate Sodium (Colace -) 100 mg PO TID [facility] Last Admin: 06/08/18 07:05 Dose: Not Given Furosemide (Lasix Injection -) 100 mg IVPUSH BID@0600,1400 [facility] Last Admin: 06/08/18 06:23 Dose: 100 mg Heparin Sodium (Porcine) (Heparin -) 5,000 unit SQ TID [facility] Last Admin: 06/08/18 06:22 Dose: 5,000 unit Ceftriaxone Sodium 2 gm/ (Dextrose) 100 mls @ 200 mls/hr IVPB DAILY [facility]; Protocol Last Admin: 06/08/18 10:55 Dose: 200 mls/hr Insulin Aspart (Novolog Vial Sliding Scale -) 1 vial SQ ACHS [facility]; Protocol Last Admin: 06/08/18 13:01 Dose: 2 units Lactulose (Cephulac (Oral Use)) 20 gm PO DAILY [facility] Last Admin: 06/08/18 10:55 Dose: 20 gm Metoprolol Succinate (Toprol Xl -) 150 mg PO BID [facility] Last Admin: 06/08/18 10:55 Dose: 150 mg Ondansetron HCl (Zofran Injection) 4 mg IVPUSH Q6H PRN PRN Reason: NAUSEA AND/OR VOMITING Ranitidine HCl (Zantac -) 150 mg PO HS [facility] Last Admin: 06/07/18 22:43 Dose: 150 mg - Objective Vital Signs: Vital Signs Temperature 97.5 F L 06/08/18 05:34 Pulse Rate 116 H 06/08/18 05:34 Respiratory Rate 18 06/08/18 05:34 Blood Pressure 130/96 06/08/18 05:34 O2 Sat by Pulse Oximetry (%) 98 06/07/18 23:25 Labs: CBC, BMP 06/08/18 05:30 06/08/18 05:30 INR, PTT INR 1.58 (0.83-1.09) H 05/28/18 02:29
--- NOTE | 2018-06-08 13:12 | PN ---
Progress Note (short form) - Note Progress Note: Podiatry F/U: Seen/evaluated at bedside NAD. Pain controlled to left foot. Denies F/V/N/C. Afebrile. LORE: L foot: pedal pulses nonpalpable, TG warm-cool, CFT absent to all toes. There is gangrenous changes to the digits 1-5 with mummification distally, no purulence, no fluctuance, no soft tissue crepitus. There is a fibrotic ulcer dorsal midfoot and fifth MTPJ, no probing to bone, no purulence, no fluctuance, no soft tissue crepitus. There is no streaking cellulitis, no signs of active infection. Imp: 63 year old diabetic, PVD, CAD M with L foot gangrene 1. IV abx per ID 2. Continue local care 3. Vascular w/u in progress 4. Will follow Aliza Alvarez DPM
--- NOTE | 2018-06-08 14:35 | PN ---
Physical Exam: SUBJECTIVE: Patient seen and examined seen in morning sitting comfortably in chair reports breathing is at base line OBJECTIVE: Vital Signs Period Temp Pulse Resp BP Sys/El Pulse Ox Last 24 Hr 97.2 F-98.7 F 116-120 18-22 129-144/64-96 98 GENERAL: Awake, alert, and fully oriented, in acute distress. HEAD: Normal with no signs of trauma. EYES: Pupils equal, round and reactive to light, EARS, NOSE, THROAT: Moist mucous membranes. NECK: Normal range of motion, supple without lymphadenopathy, JVP distended , or masses. LUNGS: B/l air entry present,mild crackels b/l ABDOMEN: Soft, nontender, not distended, normoactive bowel sounds, no guarding, no rebound, no masses. UPPER EXTREMITIES: 2+ pulses, warm, well-perfused. LOWER EXTREMITIES: pitting edema B/l decreasing, dry to wet gangrene present on left foot, no foul smell PSYCHIATRIC: Cooperative. SKIN: Warm, dry, Laboratory Results - last 24 hr 06/07/18 06/07/18 06/08/18 16:54 22:42 05:14 WBC RBC Hgb Hct MCV MCH MCHC RDW Plt Count MPV Absolute Neuts (auto) Neutrophils % Lymphocytes % Monocytes % Eosinophils % Basophils % Nucleated RBC % Sodium Potassium Chloride Carbon Dioxide Anion Gap BUN Creatinine Creat Clearance w eGFR POC Glucometer 220 207 121 Random Glucose Calcium Phosphorus Magnesium Total Bilirubin AST ALT Alkaline Phosphatase Total Protein Albumin 06/08/18 06/08/18 06/08/18 05:30 05:30 12:33 WBC 13.3 H RBC 3.67 L Hgb 11.5 L Hct 35.1 L MCV 95.8 MCH 31.4 MCHC 32.8 RDW 22.7 H Plt Count 190 MPV 8.9 Absolute Neuts (auto) 10.5 H Neutrophils % 78.4 Lymphocytes % 9.8 D Monocytes % 8.7 Eosinophils % 2.0 Basophils % 1.1 Nucleated RBC % 0 Sodium 132 L Potassium 4.1 Chloride 88 L Carbon Dioxide 34 H Anion Gap 10 BUN 86 H Creatinine 2.7 H Creat Clearance w eGFR 23.99 POC Glucometer 176 Random Glucose 110 H Calcium 7.5 L Phosphorus 3.5 Magnesium 2.0 Total Bilirubin 0.5 AST 81 H ALT 38 Alkaline Phosphatase 242 H Total Protein 5.1 L Albumin 2.3 L Active Medications Generic Name Dose Route Start Last Admin Trade Name Ghada PRN Reason Stop Dose Admin Acetaminophen 650 mg 05/29/18 15:41 06/08/18 00:56 Tylenol - PO 650 mg Q4H PRN Administration PAIN Aspirin 81 mg 05/28/18 11:38 06/08/18 10:55 Asa - PO 81 mg DAILY MANJU Administration Atorvastatin Calcium 40 mg 05/28/18 22:00 06/07/18 22:43 Lipitor - PO 40 mg HS MANJU Administration Budesonide/Formoterol Fumarate 2 puff 05/28/18 22:00 06/08/18 10:56 Symbicort 80/4.5mcg - IH 1 puff BID MANJU Administration Cholecalciferol 2,000 unit 05/29/18 10:00 06/08/18 10:55 Vitamin D3 - PO 2,000 unit DAILY MANJU Administration Clopidogrel Bisulfate 75 mg 05/28/18 11:38 06/08/18 10:55 Plavix - PO 75 mg DAILY MANJU Administration Collagenase 1 applic 05/31/18 10:00 06/08/18 10:56 Santyl - TP 1 applic DAILY MANJU Administration Protocol Cyclobenzaprine HCl 5 mg 05/28/18 22:00 06/07/18 22:44 Cyclobenzaprine Hcl PO 5 mg HS MANJU Administration Docusate Sodium 100 mg 05/28/18 14:00 06/08/18 07:05 Colace - PO Not Given TID MANJU Furosemide 100 mg 06/08/18 06:00 06/08/18 06:23 Lasix Injection - IVPUSH 100 mg BID@0600,1400 AMNJU Administration Heparin Sodium (Porcine) 5,000 unit 06/07/18 14:00 06/08/18 06:22 Heparin - SQ 5,000 unit TID MANJU Administration Ceftriaxone Sodium 2 gm/ 100 mls @ 200 mls/hr 06/02/18 14:15 06/08/18 10:55 Dextrose IVPB 200 mls/hr DAILY MANJU Administration Protocol Insulin Aspart 1 vial 05/28/18 16:30 06/08/18 13:01 Novolog Vial Sliding Scale - SQ 2 units ACHS MANJU Administration Protocol Lactulose 20 gm 06/01/18 10:00 06/08/18 10:55 Cephulac (Oral Use) PO 20 gm DAILY MANJU Administration Metoprolol Succinate 150 mg 06/02/18 13:46 06/08/18 10:55 Toprol Xl - PO 150 mg BID MANJU Administration Ondansetron HCl 4 mg 06/03/18 14:32 Zofran Injection IVPUSH Q6H PRN NAUSEA AND/OR VOMITING Ranitidine HCl 150 mg 05/28/18 22:00 06/07/18 22:43 Zantac - PO 150 mg HS MANJU Administration ASSESSMENT/PLAN: (1) Acute exacerbation of CHF (congestive heart failure) on lasix 100 bid iv push on toprol xl 150 bid legs getting better. daily weight low salt diet cardiology on case pt will go for procedure by vascular surgery on . 2) PVD with dry to wet gangrene pt was taken to OR but had V tech so procedure was cancelled. duplex arterial scan discussed with radiologist dr boone Discussed with nephrology: pt is not a candidate for CTA as he has both renal and cardiac failure. vascular surgery on case pt on aspirin and plavix antibiotics as per ID on ceftrixone 3 Hypokalemia replete potassium 4 Troponemia; likely demand or can be in setting of ckd 5 COPD (chronic obstructive pulmonary disease) chronic, O2 dependent continue nebs symbicort. no wheezing (6) Atrial fib/CAD. s/p watchman's device 04/2018 on aspirin and plavix. metoprolol xl 150 bid continue asa/plavix x 3 months continue statin cardiac monitoring cardiology following (7) Chronic kidney disease (CKD) (8) Diabetes hold oral hypoglycemia started on insulin sliding scale bgm monitoring (6) HTN (hypertension) -controlled (9 ) Low back pain -chronic -PT -analgesics prn - continue cyclobenzaprine (8) Anemia in chronic kidney disease Hb stable Fluid: orally allowed : free water intake< 1L electrolyte:repeat in am nutrition: low salt and fat diet dvt pro heparin sq gi pro zantac Visit type - Emergency Visit Emergency Visit: Yes ED Registration Date: 05/28/18 Care time: The patient presented to the Emergency Department on the above date and was hospitalized for further evaluation of their emergent condition. - New Patient This patient is new to me today: No - Critical Care Critical Care patient: No
--- NOTE | 2018-06-08 15:25 | PN ---
Progress Note, Physician History of Present Illness: Pt seen and examined at bedside. He is awake and alert. He does not feel that his breathing is much different. - Current Medication List Current Medications: Active Medications Acetaminophen (Tylenol -) 650 mg PO Q4H PRN PRN Reason: PAIN Last Admin: 06/08/18 00:56 Dose: 650 mg Aspirin (Asa -) 81 mg PO DAILY [facility] Last Admin: 06/08/18 10:55 Dose: 81 mg Atorvastatin Calcium (Lipitor -) 40 mg PO HS [facility] Last Admin: 06/07/18 22:43 Dose: 40 mg Budesonide/Formoterol Fumarate (Symbicort 80/4.5mcg -) 2 puff IH BID [facility] Last Admin: 06/08/18 10:56 Dose: 1 puff Cholecalciferol (Vitamin D3 -) 2,000 unit PO DAILY [facility] Last Admin: 06/08/18 10:55 Dose: 2,000 unit Clopidogrel Bisulfate (Plavix -) 75 mg PO DAILY [facility] Last Admin: 06/08/18 10:55 Dose: 75 mg Collagenase (Santyl -) 1 applic TP DAILY [facility]; Protocol Last Admin: 06/08/18 10:56 Dose: 1 applic Cyclobenzaprine HCl (Cyclobenzaprine Hcl) 5 mg PO HS [facility] Last Admin: 06/07/18 22:44 Dose: 5 mg Docusate Sodium (Colace -) 100 mg PO TID [facility] Last Admin: 06/08/18 07:05 Dose: Not Given Furosemide (Lasix Injection -) 100 mg IVPUSH BID@0600,1400 [facility] Last Admin: 06/08/18 06:23 Dose: 100 mg Heparin Sodium (Porcine) (Heparin -) 5,000 unit SQ TID [facility]JU Last Admin: 06/08/18 06:22 Dose: 5,000 unit Ceftriaxone Sodium 2 gm/ (Dextrose) 100 mls @ 200 mls/hr IVPB DAILY [facility]; Protocol Last Admin: 06/08/18 10:55 Dose: 200 mls/hr Insulin Aspart (Novolog Vial Sliding Scale -) 1 vial SQ ACHS [facility]; Protocol Last Admin: 06/08/18 13:01 Dose: 2 units Lactulose (Cephulac (Oral Use)) 20 gm PO DAILY [facility] Last Admin: 06/08/18 10:55 Dose: 20 gm Metoprolol Succinate (Toprol Xl -) 150 mg PO BID [facility] Last Admin: 06/08/18 10:55 Dose: 150 mg Ondansetron HCl (Zofran Injection) 4 mg IVPUSH Q6H PRN PRN Reason: NAUSEA AND/OR VOMITING Ranitidine HCl (Zantac -) 150 mg PO HS [facility] Last Admin: 06/07/18 22:43 Dose: 150 mg - Objective Vital Signs: Vital Signs Temperature 97.5 F L 06/08/18 05:34 Pulse Rate 116 H 06/08/18 05:34 Respiratory Rate 18 06/08/18 05:34 Blood Pressure 130/96 06/08/18 05:34 O2 Sat by Pulse Oximetry (%) 98 06/07/18 23:25 Constitutional: Yes: Calm Eyes: Yes: Conjunctiva Clear HENT: Yes: Atraumatic Neck: Yes: Supple Cardiovascular: Yes: S1, S2 Respiratory: Yes: On Nasal O2 Gastrointestinal: Yes: Soft Genitourinary: Yes: WNL Edema: Yes Edema: LLE: 1+, RLE: 1+ Neurological: Yes: Oriented Psychiatric: Yes: Oriented Labs: CBC, BMP 06/08/18 05:30 06/08/18 05:30 INR, PTT INR 1.58 (0.83-1.09) H 05/28/18 02:29 Problem List - Problems (1) Acute exacerbation of CHF (congestive heart failure) Code(s): I50.9 - HEART FAILURE, UNSPECIFIED Qualifiers: Heart failure type: unspecified Qualified Code(s): I50.9 - Heart failure, unspecified (2) Gangrene Code(s): I96 - GANGRENE, NOT ELSEWHERE CLASSIFIED (3) CHF (congestive heart failure) Code(s): I50.9 - HEART FAILURE, UNSPECIFIED Qualifiers: Heart failure type: unspecified Heart failure chronicity: unspecified Qualified Code(s): I50.9 - Heart failure, unspecified (4) ERROL (acute kidney injury) Code(s): N17.9 - ACUTE KIDNEY FAILURE, UNSPECIFIED Assessment/Plan Current Medications Generic Name Dose Route Start Last Admin Trade Name Freq PRN Reason Stop Dose Admin Acetaminophen 650 mg 05/29/18 15:41 06/08/18 00:56 Tylenol - PO 650 mg Q4H PRN Administration PAIN Aspirin 81 mg 05/28/18 11:38 06/08/18 10:55 Asa - PO 81 mg DAILY MANJU Administration Atorvastatin Calcium 40 mg 05/28/18 22:00 06/07/18 22:43 Lipitor - PO 40 mg HS MANJU Administration Budesonide/Formoterol Fumarate 2 puff 05/28/18 22:00 06/08/18 10:56 Symbicort 80/4.5mcg - IH 1 puff BID MANJU Administration Cholecalciferol 2,000 unit 05/29/18 10:00 06/08/18 10:55 Vitamin D3 - PO 2,000 unit DAILY MANJU Administration Clopidogrel Bisulfate 75 mg 05/28/18 11:38 06/08/18 10:55 Plavix - PO 75 mg DAILY MANJU Administration Collagenase 1 applic 05/31/18 10:00 06/08/18 10:56 Santyl - TP 1 applic DAILY MAN[facility]U Administration Protocol Cyclobenzaprine HCl 5 mg 05/28/18 22:00 06/07/18 22:44 Cyclobenzaprine Hcl PO 5 mg HS MANJU Administration Docusate Sodium 100 mg 05/28/18 14:00 06/08/18 07:05 Colace - PO Not Given TID MANJU Furosemide 100 mg 06/08/18 06:00 06/08/18 06:23 Lasix Injection - IVPUSH 100 mg BID@0600,1400 MANJU Administration Heparin Sodium (Porcine) 5,000 unit 06/07/18 14:00 06/08/18 06:22 Heparin - SQ 5,000 unit TID MANJU Administration Ceftriaxone Sodium 2 gm/ 100 mls @ 200 mls/hr 06/02/18 14:15 06/08/18 10:55 Dextrose IVPB 200 mls/hr DAILY MAN[facility]U Administration Protocol Insulin Aspart 1 vial 05/28/18 16:30 06/08/18 13:01 Novolog Vial Sliding Scale - SQ 2 units ACHS MANJU Administration Protocol Lactulose 20 gm 06/01/18 10:00 06/08/18 10:55 Cephulac (Oral Use) PO 20 gm DAILY [facility]U Administration Metoprolol Succinate 150 mg 06/02/18 13:46 06/08/18 10:55 Toprol Xl - PO 150 mg BID MANJU Administration Ondansetron HCl 4 mg 06/03/18 14:32 Zofran Injection IVPUSH Q6H PRN NAUSEA AND/OR VOMITING Ranitidine HCl 150 mg 05/28/18 22:00 06/07/18 22:43 Zantac - PO 150 mg HS MANJU Administration Impression 1. CKD 2. proteinuria 3. CAD 4. CHF 5. COPD 6. DM 7. HTN 8. azotemia/errol 9. anemia 10. PVD Plan - cont with lasix - monitor renal function - volume status not changed much - vascular follow up for gangrene - cardio follow up, discussed with them - errol in part cardiorenal - cont wound care
[2018-06-08] MEDS: oxyCODONE HCL 5 MG TABLET PO PRN (17:25)
--- NOTE | 2018-06-08 19:21 | PN ---
Progress Note (short form) - Note Progress Note: Vascular Surgery Pt seen and examined. Cardiology note appreciated. Will tentatively plan for angiogram on if cleared. Will re-evalaute tom. Arsen Rousseau DO
[2018-06-08] MEDS: CYCLOBENZAPRINE HCL 5 MG TABLET PO SCH (22:31)
[2018-06-08] MEDS: RANITIDINE HCL 150 MG TABLET (FP) PO SCH (22:32)
[2018-06-08] MEDS: ATORVASTATIN CA 40 MG TABLET (FP) PO SCH (22:32)
[2018-06-08 23:59] VITALS: BMI 30.4
[2018-06-09] MEDS: DOCUSATE SODIUM 100 MG CAPSULE (FP) PO SCH ×3 (05:47→22:53)
[2018-06-09] MEDS: HEPARIN NA (PORCINE) 5,000 UNITS/ML 1ML VIAL SQ SCH (05:48)
[2018-06-09] MEDS: INSULIN SLIDING SCALE (NOVOLOG) 1 VIAL SQ SCH ×3 (06:12→22:58)
[2018-06-09] MEDS: FUROSEMIDE 40 MG/4 ML INJECTABLE VIAL IVPUSH SCH (06:12)
[2018-06-09 06:42] LABS: BASO % 0.3 % (0-2.0); EOS % 0.1 % (0-4.5); HEMATOCRIT 36.3 % (35.4-49); HEMOGLOBIN 11.9 GM/dL (11.7-16.9); LYMPH % 3.9 % (8-40); MCH 31.4 pg (25.7-33.7); MCHC 32.7 g/dl (32.0-35.9); MEAN CELL VOLUME 95.9 fl (80-96); MEAN PLT VOLUME 9.8 fl (7.5-11.1); MONO % 5.7 % (3.8-10.2); PLATELET COUNT 160 K/MM3 (134-434); RBC 3.78 M/mm3 (4.00-5.60); RDW 22.5 % (11.9-15.9)
[2018-06-09 07:28] LABS: ALBUMIN 2.2 g/dl (3.4-5.0); ALK PHOS 204 U/L (45-117); ANION GAP 18 MMOL/L (8-16); BILIRUBIN,TOTAL 1.9 mg/dL (0.2-1); BLOOD UREA NITROGEN 94 mg/dL (7-18); CALCIUM 7.8 mg/dL (8.5-10.1); CHLORIDE 86 mmol/L (98-107); CO2 24 mmol/L (21-32); CREATININE 3.3 mg/dL (0.55-1.3); GLUCOSE,RANDOM 69 mg/dL (74-106); MAGNESIUM 2.1 mg/dL (1.8-2.4); POTASSIUM 5.2 mmol/L (3.5-5.1); SGOT/AST 4366 U/L (15-37); SGPT/ALT 718 U/L (13-61); SODIUM 128 mmol/L (136-145); TOT PROT 5.5 g/dl (6.4-8.2)
[2018-06-09] MEDS ORDERED: DEXTROSE 5%-WATER 100 ML IVPB ONE (08:33)
[2018-06-09] MEDS ORDERED: PT OWN MED DRAWER 7, Y5N ONE (08:38)
[2018-06-09 10:03] LABS: INR 2.3 (0.83-1.09); PROTHROMBIN TIME (PATIENT) 27.4 SEC (9.7-13.0)
[2018-06-09] MEDS: LACTULOSE 20 GM/30 ML UDC (FOR ORAL USE ONLY) PO SCH (11:04)
[2018-06-09] MEDS: BUDESONIDE/FORMETEROL FUMARATE 80/4.5 mcg INHALER IH SCH ×2 (11:05→22:53)
[2018-06-09] MEDS: CLOPIDOGREL BISULFATE 75 MG TABLET (FP) PO SCH (11:06)
[2018-06-09] MEDS: CEFTRIAXONE 2 GM in DEXTROSE 5%-WATER 100 ML IVPB SCH (11:06)
[2018-06-09] MEDS: ASPIRIN 81 MG CHEWABLE TABLETS PO SCH (11:06)
[2018-06-09] MEDS: CHOLECALCIFEROL (VITAMIN D3) 1,000 UNIT TABLET (FP) PO SCH (11:07)
[2018-06-09 11:12] LABS: ANISOCYTOSIS 1+; MACROCYTOSIS 1+; OVALOCYTE 1+
[2018-06-09] MEDS: oxyCODONE HCL 5 MG TABLET PO PRN (11:16)
--- NOTE | 2018-06-09 11:26 | PN ---
Progress Note (short form) - Note Progress Note: s: no chest pain, palps, dizziness. stable dyspnea ex cigs Current Medications Acetaminophen (Tylenol -) 650 mg PO Q4H PRN PRN Reason: PAIN Last Admin: 06/08/18 00:56 Dose: 650 mg Aspirin (Asa -) 81 mg PO DAILY [facility] Last Admin: 06/09/18 11:06 Dose: Not Given Atorvastatin Calcium (Lipitor -) 40 mg PO HS [facility] Last Admin: 06/08/18 22:32 Dose: 40 mg Budesonide/Formoterol Fumarate (Symbicort 80/4.5mcg -) 2 puff IH BID [facility] Last Admin: 06/09/18 11:05 Dose: 2 puff Cholecalciferol (Vitamin D3 -) 2,000 unit PO DAILY [facility] Last Admin: 06/09/18 11:07 Dose: 2,000 unit Clopidogrel Bisulfate (Plavix -) 75 mg PO DAILY [facility] Last Admin: 06/09/18 11:06 Dose: Not Given Collagenase (Santyl -) 1 applic TP DAILY [facility]; Protocol Last Admin: 06/08/18 10:56 Dose: 1 applic Docusate Sodium (Colace -) 100 mg PO TID [facility] Last Admin: 06/09/18 05:47 Dose: Not Given Furosemide (Lasix Injection -) 100 mg IVPUSH BID@0600,1400 [facility] Last Admin: 06/09/18 06:12 Dose: 100 mg Ceftriaxone Sodium 2 gm/ (Dextrose) 100 mls @ 200 mls/hr IVPB DAILY [facility]; Protocol Last Admin: 06/09/18 11:06 Dose: 200 mls/hr Insulin Aspart (Novolog Vial Sliding Scale -) 1 vial SQ ACHS [facility]; Protocol Last Admin: 06/09/18 06:12 Dose: Not Given Lactulose (Cephulac (Oral Use)) 20 gm PO DAILY [facility] Last Admin: 06/09/18 11:04 Dose: Not Given Metoprolol Succinate (Toprol Xl -) 150 mg PO BID [facility] Last Admin: 06/09/18 11:04 Dose: 150 mg Ondansetron HCl (Zofran Injection) 4 mg IVPUSH Q6H PRN PRN Reason: NAUSEA AND/OR VOMITING Oxycodone HCl (Roxicodone -) 5 mg PO Q8H PRN PRN Reason: PAIN LEVEL 4 - 6 Last Admin: 06/09/18 11:16 Dose: 5 mg Ranitidine HCl (Zantac -) 150 mg PO HS [facility] Last Admin: 06/08/18 22:32 Dose: 150 mg - Objective Vital Signs Period Temp Pulse Resp BP Sys/El Pulse Ox Last 24 Hr 97 F-98.2 F 60-63 20-20 112-135/62-90 100 Constitutional: Yes: No Distress, Calm Eyes: No: Sclera Icterus HENT: No: Nasal Congestion Cardiovascular: Yes: Regular Rate and Rhythm, JVD (to jaw), S1, S2, Other (PMI non diplaced). No: Gallop, Murmur Respiratory: Yes: CTA Bilaterally, freida rales at bases. No: Accessory Muscle Use , Rales, Wheezes Gastrointestinal: Yes: Normal Bowel Sounds, Soft. No: Tenderness Musculoskeletal: Yes: Other (No kyphosis) Extremities: No: Cold Edema: 1+ le edema bl Integumentary: No: Jaundice, gangrene of left toes, no diaphoresis Neurological: Yes: Alert, Oriented (x3) Psychiatric: No: Agitated Assessment/Plan ECG: AFL, V-P, PVCs, LVH, no sig change prior CXR: no sig change CT head: L thalamic infarct, unchanged from prior echo 06/2016: sev dec lvef, global hk, rv tds, trinity, mod-sev mr, mod tr, rvsp 50- 60 echo 06/2015: mild lve, mod-sev dec lvef, mod lae, nl rv size, mild dec rv fcn, mild-mod mr, mild tr, nl avr fcn, rvsp 30-40 04/14/18 ECHO MSH - moderate left ventricular dilatation overall severe decreased left ventricular systolic function (diffuse); estimated ejection fraction = 30 % The posterior wall is severely hypokinetic. Restrictive diastolic dysfunction normal right ventricular size moderate decreased right ventricular function aortic prosthesis (tissue) no evidence for aortic regurgitation moderate to severe mitral regurgitation mild to moderate tricuspid regurgitation moderate to severe pulmonary hypertension minimal pulmonic regurgitation no evidence for pericardial effusion technically difficult study Definity precision microbubble contrast used to enhance endocardial border definition mibi 06/2016 (pers): non-diagnostic STs; large area inferior/inferolateral/ lateral scar; no ischemia; severe LV cavity dilation; global HK with akinesis of inferior/inferolat/lateral allan; EF 16% mibi 09/2014: large inf scar, mod anteroapical ischemia, lvef 25% tele: AFL HR ok. Vs >> [employer]. nsvt 6 beats a/p: 62 m hx copd, cabgx3 2012, bio avr 2012, pad s/p b/l sfa occlusions, syst chf s/p medtronic icd, htn, hld, a-tach, here with back pain, sob. acute on chronic systolic CHF exacerbation: -recent dc for chf, was doing well but then stopped taking his lasix and other meds for several days and now back with acute chf (second recent admit for med noncompliance) -goal dry wt around 180lbs, on admission 197lbs -was on lasix 80 po daily at home. -05/28- on 80 iv lasix bid with dec Cr, weight down - 05/30 weight charted stable at 193 lbs, however patient says he was not weighed today, renal function improving, edema better - continue same lasix 80 mg IV BID - 05/31 wt unchanged at 193, above dry wt. poor diuretic response to lasix 80 iv per patient. he is well-compensated with JVD but no peripheral edema, no sob at rest, + L effusion on cxr. increase lasix to 100 iv bid, will give one time test dose metolazone 2.5 today. improved AF rate control, as disc 'd - 06/01: wt stable with increased lasix dose to 100 mg IV BID and one time metolazone. will give metolazone 5 mg x 1 prior to PM dose - 06/02: wt stable, dyspnea worsening. Cr rising today, d/w nephrology will continue same lasix 100 mg IV BID, increase metolazone and give prior to PM dose -06/03: No sig change in wt but pt pt reports sob a little better and he is laying flat in bed today comfortably. cont same lasix today. -06/04: No sig improvement in vol status and cr worsening. Will start milrinone gtt and lasix gtt to see if can improve diuresis. check daily chem7 and wts. -cont metoprolol. not on ACEI due to h/o hyperkalemia -06/05: Subjectively feels improved on inotropic support. Will continue. Needs aggressive K repletion, 3.3 today. Creat 2.8 -3/3: Continue Lasix gtt at 7.5/hr andf Milrinone at 0.25 mcg/kg/min. Continue K repletion. Creat stable. Check Magnesium -06/07: feels better on lasix gtt and milrinone, however weight and Cr stable. d/ w nephrology, PMD - will trial off milrinone, restart lasix bolus doses 100 mg IV BID -06/08: Cr improving on lasix 100 mg BID, weight stable. feels SOB is baseline today, still with significant JVD, rales on exam. continue IV lasix -06/09: Cr worsening, sob is stable, weight inc 194->197 lbs. restart milrinone gtt at 0.25 mcg/kg/min, lasix gtt 7.5/hr L foot gangrene, h/o PAD, CV preop eval: -wound care, abx per podiatry/vascular -angiogram planned when respiratory status optimized, plan as above CKD: -baseline creatinine 2-2.5 -renal following, Cr stable atrial flutter: -pt in persistent AFL. HR control suboptimal. - increase metoprolol to 150 mg BID, still having high rates -CHADS VASC 5. prohibitive falls risk, transferred to [facility] recently for evaluation--randomized in Watchman trial -s/p watchman device 04/20--discharged on aspirin and plavix for 3 months protocol. continue same cad/hx of CABG 2012 -no recent angina/ischemia -no signs acs -trop chronically in intermediate range, no significant change in current value , trend for now -cont prior cad med regimen: asa, statin, bb, ccb mitral regurgitation: -likely functional MR, mild-mod on echo 06/19, then "mod-severe" when here 06/20 with suspected acute chf and pulm pressures up (though at risk for overestimation of MR severity on that echo report), mod to severe on echo at [facility] 04/2018 -reassess MR severity on echo as outpt--pt would be a candidate for transcatheter delmar-clip repair (per COAPT study data) if severe MR persists despite optimization of volume status and LV remodeling med regimen +/- [employer]GR[employer]HER NSVT - longest 24 beats, s/p ICD - cont bb bio avr: -nl fcn on echo 04/2018 CVA: -age indeterminate L thalamic stroke on CT here 03/2019 -now s/p Watchman device 04/2018, cont aspirin and plavix s/p icd: -no shocks -routine outpt monitoring htn: -bp stable -cont home meds
[2018-06-09 11:32] LABS: BASO % 0.4 % (0-2.0); EOS % 0.1 % (0-4.5); HEMATOCRIT 34.8 % (35.4-49); HEMOGLOBIN 11.3 GM/dL (11.7-16.9); LYMPH % 6.1 % (8-40); MCH 30.9 pg (25.7-33.7); MCHC 32.6 g/dl (32.0-35.9); MEAN CELL VOLUME 94.8 fl (80-96); MEAN PLT VOLUME 10.1 fl (7.5-11.1); MONO % 6.1 % (3.8-10.2); NEUT % 87.3 % (42.8-82.8); PLATELET COUNT 165 K/MM3 (134-434); RBC 3.67 M/mm3 (4.00-5.60); RDW 21.9 % (11.9-15.9); WHITE BLOOD COUNT 20.6 K/mm3 (4.0-10.0)
[2018-06-09] MEDS: COLLAGENASE CLOSTRIDIUM HIST. 30 GRAMS TUBE TP SCH (11:37)
[2018-06-09 11:43] LABS: PLATELET ESTIMATE ADEQUATE
[2018-06-09 12:26] LABS: ANISOCYTOSIS 1+; MACROCYTOSIS 1+; OVALOCYTE 1+; TARGET CELLS 1+
[2018-06-09 12:35] LABS: PLATELET ESTIMATE ADEQUATE
[2018-06-09 12:49] LABS: ALBUMIN 2.2 g/dl (3.4-5.0); ALK PHOS 195 U/L (45-117); ANION GAP 17 MMOL/L (8-16); BILIRUBIN,DIRECT 1.2 mg/dL (0.0-0.2); BILIRUBIN,TOTAL 1.9 mg/dL (0.2-1); BLOOD UREA NITROGEN 98 mg/dL (7-18); CALCIUM 7.9 mg/dL (8.5-10.1); CHLORIDE 88 mmol/L (98-107); CO2 22 mmol/L (21-32); CREATININE 3.5 mg/dL (0.55-1.3); GLUCOSE,RANDOM 68 mg/dL (74-106); POTASSIUM 5.3 mmol/L (3.5-5.1); SGOT/AST 6780 U/L (15-37); SGPT/ALT 1055 U/L (13-61); SODIUM 128 mmol/L (136-145); TOT PROT 5.5 g/dl (6.4-8.2)
--- NOTE | 2018-06-09 13:08 | PN ---
Progress Note, Physician History of Present Illness: Pt seen and examined at bedside. He does complain of shortness of breath. He denies chest pain. He complains of lower ext edema. - Current Medication List Current Medications: Active Medications Aspirin (Asa -) 81 mg PO DAILY [facility] Last Admin: 06/09/18 11:06 Dose: Not Given Atorvastatin Calcium (Lipitor -) 40 mg PO HS [facility] Last Admin: 06/08/18 22:32 Dose: 40 mg Budesonide/Formoterol Fumarate (Symbicort 80/4.5mcg -) 2 puff IH BID [facility]JU Last Admin: 06/09/18 11:05 Dose: 2 puff Cholecalciferol (Vitamin D3 -) 2,000 unit PO DAILY [facility] Last Admin: 06/09/18 11:07 Dose: 2,000 unit Clopidogrel Bisulfate (Plavix -) 75 mg PO DAILY [facility] Last Admin: 06/09/18 11:06 Dose: Not Given Collagenase (Santyl -) 1 applic TP DAILY [facility]; Protocol Last Admin: 06/09/18 11:37 Dose: 1 applic Docusate Sodium (Colace -) 100 mg PO TID [facility] Last Admin: 06/09/18 05:47 Dose: Not Given Ceftriaxone Sodium 2 gm/ (Dextrose) 100 mls @ 200 mls/hr IVPB DAILY [facility]; Protocol Last Admin: 06/09/18 11:06 Dose: 200 mls/hr Furosemide 100 mg/ Sodium (Chloride) 100 mls @ 7.5 mls/hr IVPB Q13H [facility] Milrinone Lactate/Dextrose (Milrinone 20mg/100ml Ivpb -) 20,000 mcg in 100 mls @ 6.715 mls/hr IVPB TITR [facility] Insulin Aspart (Novolog Vial Sliding Scale -) 1 vial SQ ACHS [facility]; Protocol Last Admin: 06/09/18 11:47 Dose: Not Given Lactulose (Cephulac (Oral Use)) 20 gm PO DAILY [facility] Last Admin: 06/09/18 11:04 Dose: Not Given Metoprolol Succinate (Toprol Xl -) 150 mg PO BID [facility] Last Admin: 06/09/18 11:04 Dose: 150 mg Ondansetron HCl (Zofran Injection) 4 mg IVPUSH Q6H PRN PRN Reason: NAUSEA AND/OR VOMITING Oxycodone HCl (Roxicodone -) 5 mg PO Q8H PRN PRN Reason: PAIN LEVEL 4 - 6 Last Admin: 06/09/18 11:16 Dose: 5 mg Ranitidine HCl (Zantac -) 150 mg PO HS [facility] Last Admin: 06/08/18 22:32 Dose: 150 mg - Objective Vital Signs: Vital Signs Temperature 97.2 F L 06/09/18 09:00 Pulse Rate 63 06/09/18 09:00 Respiratory Rate 20 06/09/18 09:00 Blood Pressure 105/69 06/09/18 09:00 O2 Sat by Pulse Oximetry (%) 100 06/09/18 09:00 Constitutional: Yes: Calm Eyes: Yes: Conjunctiva Clear HENT: Yes: Atraumatic Cardiovascular: Yes: S1, S2 Respiratory: Yes: On Nasal O2, Rhonchi Gastrointestinal: Yes: Soft Genitourinary: Yes: Incontinence Musculoskeletal: Yes: Muscle Weakness Extremities: Yes: Other (left foot toe gangrene) Edema: Yes Edema: LLE: 2+, RLE: 2+ Neurological: Yes: Oriented Psychiatric: Yes: Oriented Labs: CBC, BMP 06/09/18 10:50 06/09/18 10:50 INR, PTT INR 2.30 (0.83-1.09) H 06/09/18 09:25 - ....Imaging Chest X-ray: Report Reviewed Problem List - Problems (1) Acute exacerbation of CHF (congestive heart failure) Code(s): I50.9 - HEART FAILURE, UNSPECIFIED Qualifiers: Heart failure type: unspecified Qualified Code(s): I50.9 - Heart failure, unspecified (2) Gangrene Code(s): I96 - GANGRENE, NOT ELSEWHERE CLASSIFIED (3) CHF (congestive heart failure) Code(s): I50.9 - HEART FAILURE, UNSPECIFIED Qualifiers: Heart failure type: unspecified Heart failure chronicity: unspecified Qualified Code(s): I50.9 - Heart failure, unspecified (4) ERROL (acute kidney injury) Code(s): N17.9 - ACUTE KIDNEY FAILURE, UNSPECIFIED Assessment/Plan Current Medications Generic Name Dose Route Start Last Admin Trade Name Freq PRN Reason Stop Dose Admin Aspirin 81 mg 05/28/18 11:38 06/09/18 11:06 Asa - PO Not Given DAILY MANJU Atorvastatin Calcium 40 mg 05/28/18 22:00 06/08/18 22:32 Lipitor - PO 40 mg HS MANJU Administration Budesonide/Formoterol Fumarate 2 puff 05/28/18 22:00 06/09/18 11:05 Symbicort 80/4.5mcg - IH 2 puff BID MANJU Administration Cholecalciferol 2,000 unit 05/29/18 10:00 06/09/18 11:07 Vitamin D3 - PO 2,000 unit DAILY MANJU Administration Clopidogrel Bisulfate 75 mg 05/28/18 11:38 06/09/18 11:06 Plavix - PO Not Given DAILY MANJU Collagenase 1 applic 05/31/18 10:00 06/09/18 11:37 Santyl - TP 1 applic DAILY [facility] Administration Protocol Docusate Sodium 100 mg 05/28/18 14:00 06/09/18 05:47 Colace - PO Not Given TID MANJU Ceftriaxone Sodium 2 gm/ 100 mls @ 200 mls/hr 06/02/18 14:15 06/09/18 11:06 Dextrose IVPB 200 mls/hr DAILY MANJU Administration Protocol Furosemide 100 mg/ Sodium 100 mls @ 7.5 mls/hr 06/09/18 12:45 Chloride IVPB Q13H MAN[facility]U Milrinone Lactate/Dextrose 20,000 mcg in 100 mls @ 6.715 mls/hr 06/09/18 12: 45 Milrinone 20mg/100ml Ivpb - IVPB TITR MANJU 0.25 MCG/KG/MIN Insulin Aspart 1 vial 05/28/18 16:30 06/09/18 11:47 Novolog Vial Sliding Scale - SQ Not Given ACHS [facility] Protocol Lactulose 20 gm 06/01/18 10:00 06/09/18 11:04 Cephulac (Oral Use) PO Not Given DAILY [facility] Metoprolol Succinate 150 mg 06/02/18 13:46 06/09/18 11:04 Toprol Xl - PO 150 mg BID MANJU Administration Ondansetron HCl 4 mg 06/03/18 14:32 Zofran Injection IVPUSH Q6H PRN NAUSEA AND/OR VOMITING Oxycodone HCl 5 mg 06/08/18 16:18 06/09/18 11:16 Roxicodone - PO 5 mg Q8H PRN Administration PAIN LEVEL 4 - 6 Ranitidine HCl 150 mg 05/28/18 22:00 06/08/18 22:32 Zantac - PO 150 mg HS MANJU Administration Impression 1. CKD 2. proteinuria 3. CAD 4. CHF 5. COPD 6. DM 7. HTN 8. azotemia/errol 9. anemia 10. PVD Plan - renal function worsening - pt appears overloaded - lasix was increased, should help with potassium - vascular input appreciated, pt is high risk for SHARI - discussed with cardio - LFTs are rising as well - will discussed with medical team - errol in part cardiorenal - cont wound care - overall prognosis is poor
--- NOTE | 2018-06-09 14:00 | PN ---
Progress Note, Physician - Current Medication List Current Medications: Active Medications Aspirin (Asa -) 81 mg PO DAILY [facility] Last Admin: 06/09/18 11:06 Dose: Not Given Atorvastatin Calcium (Lipitor -) 40 mg PO HS [facility] Last Admin: 06/08/18 22:32 Dose: 40 mg Budesonide/Formoterol Fumarate (Symbicort 80/4.5mcg -) 2 puff IH BID [facility] Last Admin: 06/09/18 11:05 Dose: 2 puff Cholecalciferol (Vitamin D3 -) 2,000 unit PO DAILY [facility] Last Admin: 06/09/18 11:07 Dose: 2,000 unit Clopidogrel Bisulfate (Plavix -) 75 mg PO DAILY [facility] Last Admin: 06/09/18 11:06 Dose: Not Given Collagenase (Santyl -) 1 applic TP DAILY [facility]; Protocol Last Admin: 06/09/18 11:37 Dose: 1 applic Docusate Sodium (Colace -) 100 mg PO TID [facility] Last Admin: 06/09/18 13:46 Dose: Not Given Ceftriaxone Sodium 2 gm/ (Dextrose) 100 mls @ 200 mls/hr IVPB DAILY [facility]; Protocol Last Admin: 06/09/18 11:06 Dose: 200 mls/hr Furosemide 100 mg/ Sodium (Chloride) 100 mls @ 7.5 mls/hr IVPB Q13H [facility] Milrinone Lactate/Dextrose (Milrinone 20mg/100ml Ivpb -) 20,000 mcg in 100 mls @ 6.715 mls/hr IVPB TITR [facility] Insulin Aspart (Novolog Vial Sliding Scale -) 1 vial SQ ACHS [facility]; Protocol Last Admin: 06/09/18 11:47 Dose: Not Given Lactulose (Cephulac (Oral Use)) 20 gm PO DAILY [facility] Last Admin: 06/09/18 11:04 Dose: Not Given Metoprolol Succinate (Toprol Xl -) 150 mg PO BID [facility] Last Admin: 06/09/18 11:04 Dose: 150 mg Ondansetron HCl (Zofran Injection) 4 mg IVPUSH Q6H PRN PRN Reason: NAUSEA AND/OR VOMITING Oxycodone HCl (Roxicodone -) 5 mg PO Q8H PRN PRN Reason: PAIN LEVEL 4 - 6 Last Admin: 06/09/18 11:16 Dose: 5 mg Ranitidine HCl (Zantac -) 150 mg PO HS [facility] Last Admin: 06/08/18 22:32 Dose: 150 mg - Objective Vital Signs: Vital Signs Temperature 97.2 F L 06/09/18 09:00 Pulse Rate 63 06/09/18 09:00 Respiratory Rate 20 06/09/18 09:00 Blood Pressure 105/69 06/09/18 09:00 O2 Sat by Pulse Oximetry (%) 100 06/09/18 09:00 Labs: CBC, BMP 06/09/18 10:50 06/09/18 10:50 INR, PTT INR 2.30 (0.83-1.09) H 06/09/18 09:25
--- NOTE | 2018-06-09 14:34 | PN ---
Physical Exam: SUBJECTIVE: Patient seen and examined pt over night no new events BP maintained overnight. Pt has h/o wathman procedure done on 04/20/18 Pt denies of any new complaints. Pt labs ast/alt has jumped to around 7000/1000. Pt denies pain abdomen, fever, chills, yellow discoloration of eyes, urine. Pt is aox3 Pt creatinine, wbc has also increased this morning. LAbs were repeated to make sure the numbers are correct. INR 2.3 ptt normal plt also decreased: sq heparin stopped and hit antibodies send gained 3 pounds overnight pt niece requested to transfer the pt to [place]. Case discussed with phyllis in transfer centre [phone] and also discussed with Gi team catherine. catherine states as pt is not a candidate for transplant and everything is more likely because of heart failure causing liver congestion and their is nothing else hey can offer to him, they have advised to get ultrasound liver with doppler. they have closed the case. I had informed the same to patient marielyece. Goals of care also discussed with pt niece and she will discuss it will her family and let us know. till then pt is full code. OBJECTIVE: Vital Signs Period Temp Pulse Resp BP Sys/El Pulse Ox Last 24 Hr 97 F-98.2 F 60-63 20-20 105-135/62-90 100-100 GENERAL: Awake, alert, and fully oriented, in no acute distress. HEAD: Normal with no signs of trauma. EYES: Pupils equal, round and reactive to light, EARS, NOSE, THROAT: Moist mucous membranes. NECK: Normal range of motion, supple without lymphadenopathy, JVP distended , or masses. LUNGS: B/l air entry present,mild crackels b/l ABDOMEN: Soft, nontender, not distended, normoactive bowel sounds, no guarding, no rebound, no masses. UPPER EXTREMITIES: 2+ pulses, warm, well-perfused. LOWER EXTREMITIES: pitting edema B/l increased since yesterday , dry to wet gangrene present on left foot, no foul smell PSYCHIATRIC: Cooperative. SKIN: Warm, dry, Laboratory Results - last 24 hr 06/08/18 06/08/18 06/09/18 17:33 22:25 05:30 WBC 25.0 H RBC 3.78 L Hgb 11.9 Hct 36.3 MCV 95.9 MCH 31.4 MCHC 32.7 RDW 22.5 H Plt Count 160 MPV 9.8 D Absolute Neuts (auto) 22.5 H Neutrophils % 90.0 H Neutrophils % (Manual) 86.1 H Band Neutrophils % 1.0 Lymphocytes % 3.9 L D Lymphocytes % (Manual) 3.0 L D Monocytes % 5.7 Monocytes % (Manual) 10 Eosinophils % 0.1 D Eosinophils % (Manual) 0.0 Basophils % 0.3 Basophils % (Manual) 0.0 Myelocytes % (Man) 0 Promyelocytes % (Man) 0 Blast Cells % (Manual) 0 Nucleated RBC % 0 Metamyelocytes 0 Hypochromia 0 Platelet Estimate Adequate Polychromasia 1+ Poikilocytosis 2+ Anisocytosis 1+ Microcytosis 0 Macrocytosis 1+ Target Cells Ovalocytes 1+ Schistocytes PT with INR INR PTT (Actin FS) Sodium Potassium Chloride Carbon Dioxide Anion Gap BUN Creatinine Creat Clearance w eGFR POC Glucometer 161 99 Random Glucose Calcium Magnesium Total Bilirubin Direct Bilirubin AST ALT Alkaline Phosphatase Total Protein Albumin 06/09/18 06/09/18 06/09/18 05:30 05:53 09:25 WBC RBC Hgb Hct MCV MCH MCHC RDW Plt Count MPV Absolute Neuts (auto) Neutrophils % Neutrophils % (Manual) Band Neutrophils % Lymphocytes % Lymphocytes % (Manual) Monocytes % Monocytes % (Manual) Eosinophils % Eosinophils % (Manual) Basophils % Basophils % (Manual) Myelocytes % (Man) Promyelocytes % (Man) Blast Cells % (Manual) Nucleated RBC % Metamyelocytes Hypochromia Platelet Estimate Polychromasia Poikilocytosis Anisocytosis Microcytosis Macrocytosis Target Cells Ovalocytes Schistocytes PT with INR 27.40 H INR 2.30 H PTT (Actin FS) Sodium 128 L Potassium 5.2 H Chloride 86 L Carbon Dioxide 24 Anion Gap 18 H BUN 94 H Creatinine 3.3 H Creat Clearance w eGFR 19.03 POC Glucometer 87 Random Glucose 69 L Calcium 7.8 L Magnesium 2.1 Total Bilirubin 1.9 H Direct Bilirubin AST 4366 H ALT 718 H Alkaline Phosphatase 204 H Total Protein 5.5 L Albumin 2.2 L 06/09/18 06/09/18 06/09/18 10:50 10:50 10:50 WBC 20.6 H RBC 3.67 L Hgb 11.3 L Hct 34.8 L MCV 94.8 MCH 30.9 MCHC 32.6 RDW 21.9 H Plt Count 165 MPV 10.1 Absolute Neuts (auto) 18.0 H Neutrophils % 87.3 H Neutrophils % (Manual) 91.2 H Band Neutrophils % 0.0 Lymphocytes % 6.1 L D Lymphocytes % (Manual) 5.9 L D Monocytes % 6.1 Monocytes % (Manual) 3 L Eosinophils % 0.1 Eosinophils % (Manual) 0.0 Basophils % 0.4 Basophils % (Manual) 0.0 Myelocytes % (Man) 0 Promyelocytes % (Man) 0 Blast Cells % (Manual) 0 Nucleated RBC % 0 Metamyelocytes 0 Hypochromia 0 Platelet Estimate Adequate Polychromasia 1+ Poikilocytosis 1+ Anisocytosis 1+ Microcytosis 0 Macrocytosis 1+ Target Cells 1+ Ovalocytes 1+ Schistocytes 1+ PT with INR INR PTT (Actin FS) 32.2 Sodium 128 L Potassium 5.3 H Chloride 88 L Carbon Dioxide 22 Anion Gap 17 H BUN 98 H Creatinine 3.5 H Creat Clearance w eGFR 17.78 POC Glucometer Random Glucose 68 L Calcium 7.9 L Magnesium 2.0 Total Bilirubin 1.9 H Direct Bilirubin 1.2 H AST 6780 H ALT 1055 H Alkaline Phosphatase 195 H Total Protein 5.5 L Albumin 2.2 L 06/09/18 11:43 WBC RBC Hgb Hct MCV MCH MCHC RDW Plt Count MPV Absolute Neuts (auto) Neutrophils % Neutrophils % (Manual) Band Neutrophils % Lymphocytes % Lymphocytes % (Manual) Monocytes % Monocytes % (Manual) Eosinophils % Eosinophils % (Manual) Basophils % Basophils % (Manual) Myelocytes % (Man) Promyelocytes % (Man) Blast Cells % (Manual) Nucleated RBC % Metamyelocytes Hypochromia Platelet Estimate Polychromasia Poikilocytosis Anisocytosis Microcytosis Macrocytosis Target Cells Ovalocytes Schistocytes PT with INR INR PTT (Actin FS) Sodium Potassium Chloride Carbon Dioxide Anion Gap BUN Creatinine Creat Clearance w eGFR POC Glucometer 74 Random Glucose Calcium Magnesium Total Bilirubin Direct Bilirubin AST ALT Alkaline Phosphatase Total Protein Albumin Active Medications Generic Name Dose Route Start Last Admin Trade Name Freq PRN Reason Stop Dose Admin Aspirin 81 mg 05/28/18 11:38 06/09/18 11:06 Asa - PO Not Given DAILY MANJU Atorvastatin Calcium 40 mg 05/28/18 22:00 06/08/18 22:32 Lipitor - PO 40 mg HS MANJU Administration Budesonide/Formoterol Fumarate 2 puff 05/28/18 22:00 06/09/18 11:05 Symbicort 80/4.5mcg - IH 2 puff BID MANJU Administration Cholecalciferol 2,000 unit 05/29/18 10:00 06/09/18 11:07 Vitamin D3 - PO 2,000 unit DAILY [facility] Administration Clopidogrel Bisulfate 75 mg 05/28/18 11:38 06/09/18 11:06 Plavix - PO Not Given DAILY [facility] Collagenase 1 applic 05/31/18 10:00 06/09/18 11:37 Santyl - TP 1 applic DAILY [facility] Administration Protocol Docusate Sodium 100 mg 05/28/18 14:00 06/09/18 13:46 Colace - PO Not Given TID [facility]JU Ceftriaxone Sodium 2 gm/ 100 mls @ 200 mls/hr 06/02/18 14:15 06/09/18 11:06 Dextrose IVPB 200 mls/hr DAILY [facility] Administration Protocol Furosemide 100 mg/ Sodium 100 mls @ 7.5 mls/hr 06/09/18 12:45 Chloride IVPB Q13H [facility] Milrinone Lactate/Dextrose 20,000 mcg in 100 mls @ 6.715 mls/hr 06/09/18 12: 45 Milrinone 20mg/100ml Ivpb - IVPB TITR [facility]JU 0.25 MCG/KG/MIN Insulin Aspart 1 vial 05/28/18 16:30 06/09/18 11:47 Novolog Vial Sliding Scale - SQ Not Given ACHS [facility] Protocol Lactulose 20 gm 06/01/18 10:00 06/09/18 11:04 Cephulac (Oral Use) PO Not Given DAILY [facility] Metoprolol Succinate 150 mg 06/02/18 13:46 06/09/18 11:04 Toprol Xl - PO 150 mg BID MANJU Administration Ondansetron HCl 4 mg 06/03/18 14:32 Zofran Injection IVPUSH Q6H PRN NAUSEA AND/OR VOMITING Oxycodone HCl 5 mg 06/08/18 16:18 06/09/18 11:16 Roxicodone - PO 5 mg Q8H PRN Administration PAIN LEVEL 4 - 6 Ranitidine HCl 150 mg 05/28/18 22:00 06/08/18 22:32 Zantac - PO 150 mg HS MANJU Administration ASSESSMENT/PLAN: Acute transamenitis; supratheraputic inr hepatic panel liver gb ultrasound in [facility] pt has no gb stones. ggt stat acetaminophen level stat, urine toxicology stat. keep map< 65 started on lasix and milrinone by cardiology if this acute transamenitis is because of liver congestion. monitor lft and inr stop heparin sq, hit antibody cpk stat cxr shows no increase in congestion GI consult:discussed with dr landeros we will also get liver doppler (1) Acute exacerbation of CHF (congestive heart failure) on lasix drip and milrinone on toprol xl 150 bid swelling increased today daily weight, gained 3 pounds over night low salt diet cardiology on case 2) PVD with dry to wet gangrene pt was taken to OR but had V tech so procedure was cancelled. Discussed with nephrology: pt is not a candidate for CTA as he has both renal and cardiac failure. vascular surgery on case pt on aspirin and plavix antibiotics as per ID on ceftrixone 3 Hypokalemia replete potassium 4 Troponemia; likely demand or can be in setting of ckd 5 COPD (chronic obstructive pulmonary disease) chronic, O2 dependent continue nebs symbicort. no wheezing (6) Atrial fib/CAD. s/p watchman's device 04/20/2018 on aspirin and plavix. discussed with cardiology :adv to continue aspirin and plavix metoprolol xl 150 bid continue asa/plavix x 3 months stop statin cardiac monitoring cardiology following (7) fior on Chronic kidney disease (CKD) cardiorenal syndrome cr getting worse (8) Diabetes hold oral hypoglycemia started on insulin sliding scale bgm monitoring (6) HTN (hypertension) -controlled (9 ) Low back pain -chronic -PT -analgesics prn - stop cyclobenzaprine (8) Anemia in chronic kidney disease Hb stable Fluid: orally allowed : free water intake< 1L electrolyte:repeat in am nutrition: low salt and fat diet gi pro zantac Visit type - Emergency Visit Emergency Visit: Yes ED Registration Date: 05/28/18 Care time: The patient presented to the Emergency Department on the above date and was hospitalized for further evaluation of their emergent condition. - New Patient This patient is new to me today: No - Critical Care Critical Care patient: No
[2018-06-09] MEDS: MILRINONE 20MG/100ML IVPB - 20,000 MCG/100 ML ML IVPB SCH (15:22)
[2018-06-09] MEDS: FUROSEMIDE INJECTION 100 MG in SODIUM CHLORIDE 90 ML IVPB SCH (15:23)
--- NOTE | 2018-06-09 16:04 | PN ---
Teaching Attending Note Name of Resident: Rafael Lieberman ATTENDING PHYSICIAN STATEMENT I saw and evaluated the patient. I reviewed the resident's note and discussed the case with the resident. I agree with the resident's findings and plan as documented. SUBJECTIVE: Mr Owen says he is doing ok. Complains of pain in his left foot but otherwise is without complaint. Denies cp, sob, n/v. OBJECTIVE: Last Vital Signs Temp Pulse Resp BP Pulse Ox 36.7 C 60 20 131/64 100 06/09/18 14:00 06/09/18 14:00 06/09/18 09:00 06/09/18 14:00 06/09/18 09:00 Gen: nad Pulm: ctab w/o w/r/r CV: irreg irreg w/o m/r/g Abd: +bs, s/nt/nd Ext: L foot wrapped, bilateral edema CBC, BMP 06/09/18 10:50 06/09/18 10:50 ASSESSMENT AND PLAN: Problem List - Problems (1) Abnormal liver enzymes Assessment/Plan: -new onset -continues to elevate -tylenol level not elevated -abdominal ultrasound ordered -GI consulted and will see -case d/w family, asking for transfer to [facility] [place] -transfer center called and transfer requested Code(s): R74.8 - ABNORMAL LEVELS OF OTHER SERUM ENZYMES (2) Acute exacerbation of CHF (congestive heart failure) Assessment/Plan: -case d/w Dr Campuzano -milrinone restarted -lasix drip restarted Code(s): I50.9 - HEART FAILURE, UNSPECIFIED Qualifiers: Heart failure type: systolic Qualified Code(s): I50.23 - Acute on chronic systolic (congestive) heart failure (3) Afib Assessment/Plan: -continue toprol xl - Code(s): I48.91 - UNSPECIFIED ATRIAL FIBRILLATION Qualifiers: Atrial fibrillation type: chronic Qualified Code(s): I48.2 - Chronic atrial fibrillation (4) Gangrene Assessment/Plan: -ID and vascular surgery following -continue rocephin -will need surgical intervention on foot, but now with acute hepatitis Code(s): I96 - GANGRENE, NOT ELSEWHERE CLASSIFIED (5) Chronic respiratory failure Assessment/Plan: -continue oxygen Code(s): J96.10 - CHRONIC RESPIRATORY FAILURE, UNSP W HYPOXIA OR HYPERCAPNIA (6) Hyperkalemia Assessment/Plan: -case d/w nephrology -now on lasix gtt Code(s): E87.5 - HYPERKALEMIA (7) Acute on chronic renal insufficiency Assessment/Plan: -worsening -in part cardiorenal syndrome -diuresing with lasix/milrinone -monitor Code(s): N28.9 - DISORDER OF KIDNEY AND URETER, UNSPECIFIED; N18.9 - CHRONIC KIDNEY DISEASE, UNSPECIFIED (8) Diabetes Assessment/Plan: -continue insulin -controlled Code(s): E11.9 - TYPE 2 DIABETES MELLITUS WITHOUT COMPLICATIONS Qualifiers: Diabetes mellitus type: type 2 Diabetes 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 insulin use: with correction use Diabetes mellitus complication status: with kidney complications Diabetes mellitus complication detail: with chronic kidney disease Chronic kidney disease stage: stage 3 (moderate) Qualified Code(s): E11.22 - Type 2 diabetes mellitus with diabetic chronic kidney disease; N18.3 - Chronic kidney disease, stage 3 (moderate); Z79.4 - 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
--- NOTE | 2018-06-09 17:01 | CON.GI ---
Consult Consult Specialty:: GI consult dictated - Past Medical History Cardio/Vascular: Yes: AFIB (after CABG briefly; not on AC), CAD, CHF (systolic) , HTN, Mitral Insufficiency, Other (bioprosthetic AVR, CABG, PVD, s/p AICD, MR) Pulmonary: Yes: Bronchitis, COPD, O2 Dependent (3 L), Pneumonia Gastrointestinal: Yes: Constipation Renal/: Yes: Renal Inusuff (satge 3) Endocrine: Yes: Diabetes Mellitus - Past Surgical History Past Surgical History: Yes: AICD, CABG - Alcohol/Substance Use Hx Alcohol Use: No History of Substance Use: reports: None, Cocaine - Smoking History Smoking history: Current every day smoker Have you smoked in the past 12 months: No Aproximately how many cigarettes per day: 5 If you are a former smoker, when did you quit?: 04/2018 - Social History Usual Living Arrangement: With Spouse ADL: Independent History of Recent Travel: No Home Medications - Allergies Allergies/Adverse Reactions: Allergies Allergy/AdvReac Type Severity Reaction Status Date / Time Fish Containing Products Allergy Verified 04/27/18 20:22 codeine AdvReac Intermediate Vomiting Verified 04/27/18 20:22 gabapentin AdvReac Intermediate dizzy Verified 04/27/18 20:22 - Home Medications Home Medications: Ambulatory Orders Albuterol 0.083% Nebulizer Rosy [Ventolin 0.083% Nebulizer Soln -] 1 amp NEB Q4H PRN #30 amp 05/02/18 Aspirin [ASA -] 81 mg PO DAILY #30 tab.chew 05/02/18 Atorvastatin Ca [Lipitor] 40 mg PO HS #30 tablet 05/02/18 Budesonide/Formeterol Fumarate [SYMBICORT 80/4.5mcg -] 2 puff IH BID #1 inhaler 05/02/18 Cholecalciferol (Vitamin D3) [Vitamin D3] 2,000 unit PO DAILY #30 capsule Clopidogrel Bisulfate [Plavix -] 75 mg PO DAILY #30 tablet 05/02/18 Cyclobenzaprine HCl 5 mg PO HS #30 tablet 05/02/18 Docusate Sodium [Colace -] 100 mg PO TID #90 capsule 05/02/18 Furosemide [Lasix -] 80 mg PO DAILY #60 tablet 05/02/18 Glipizide [Glucotrol -] 5 mg PO BID@0700,1630 #60 tablet 05/02/18 Lactulose [Cephulac -] 10 - 20 gm PO DAILY PRN #1 bottle 05/02/18 Melatonin 5 mg PO HS PRN #30 tab 05/02/18 Metoprolol Succinate [Toprol XL -] 50 mg PO BID #60 tab.sr.24h 05/02/18 Nebulizer [Compact Compressor Nebulizer] 1 each MC ASDIR #1 each 05/02/18 Pantoprazole Sodium [Protonix -] 40 mg PO DAILY #30 tablet.ec 05/02/18 Psyllium [Metamucil (Sugar-Free) -] 5.85 gm PO BID #1 bottle 05/02/18 Ranitidine [Zantac -] 150 mg PO HS #30 tablet 05/02/18 Sennosides [Senna -] 2 tab PO HS PRN #30 tablet 05/02/18 predniSONE [Deltasone -] 5 mg PO ASDIR #32 tab 05/02/18 Oxycodone HCl/Acetaminophen [Percocet 10-325 mg Tablet] 1 each PO TID PRN #80 tablet MDD 3 05/21/18 Family Disease History - Family Disease History Family Disease History: Heart Disease: Father (etoh), Mother (, cva), Other: Brother (alive - Ramírez - hx etoh), Sister (five - alive - no medical problems), Son (two adults - no problems) Physical Exam-GI Vital Signs: Vital Signs Temperature 98.0 F 06/09/18 14:00 Pulse Rate 60 06/09/18 14:00 Respiratory Rate 20 06/09/18 09:00 Blood Pressure 131/64 06/09/18 14:00 O2 Sat by Pulse Oximetry (%) 100 06/09/18 09:00 Labs: CBC, BMP 06/09/18 10:50 06/09/18 10:50 INR, PTT INR 2.30 (0.83-1.09) H 06/09/18 09:25
[2018-06-09 19:19] LABS: EOS % 1.5 % (0-4.5); HEMATOCRIT 35.9 % (35.4-49); HEMOGLOBIN 11.8 GM/dL (11.7-16.9); LYMPH % 7.2 % (8-40); MCHC 32.9 g/dl (32.0-35.9); MEAN CELL VOLUME 97.3 fl (80-96); MEAN PLT VOLUME 10.3 fl (7.5-11.1); MONO % 4.8 % (3.8-10.2); NEUT % 85.5 % (42.8-82.8); PLATELET COUNT 172 K/MM3 (134-434); RBC 3.69 M/mm3 (4.00-5.60); WHITE BLOOD COUNT 19.8 K/mm3 (4.0-10.0)
[2018-06-09 19:24] LABS: INR 2.59 (0.83-1.09); PROTHROMBIN TIME (PATIENT) 30.9 SEC (9.7-13.0)
[2018-06-09 21:26] LABS: ALBUMIN 2.3 g/dl (3.4-5.0); ALK PHOS 198 U/L (45-117); ANION GAP 16 MMOL/L (8-16); BILIRUBIN,TOTAL 1.6 mg/dL (0.2-1); BLOOD UREA NITROGEN 102 mg/dL (7-18); CALCIUM 7.5 mg/dL (8.5-10.1); CHLORIDE 86 mmol/L (98-107); CO2 26 mmol/L (21-32); CREATININE 3.9 mg/dL (0.55-1.3); GLUCOSE,RANDOM 68 mg/dL (74-106); LDH > 4000 U/L (87-246); POTASSIUM 5.4 mmol/L (3.5-5.1); SGOT/AST 9393 U/L (15-37); SGPT/ALT 1420 U/L (13-61); SODIUM 127 mmol/L (136-145); TOT PROT 5.7 g/dl (6.4-8.2)
[2018-06-09 22:13] LABS: ANISOCYTOSIS 2+; PLATELET ESTIMATE ADEQUATE
[2018-06-09] MEDS: RANITIDINE HCL 150 MG TABLET (FP) PO SCH (22:54)
[2018-06-10 01:31] VITALS: PULSE 60
[2018-06-10 02:03] LABS: BASO % 0.7 % (0-2.0); EOS % 0.9 % (0-4.5); HEMATOCRIT 33.8 % (35.4-49); HEMOGLOBIN 11.3 GM/dL (11.7-16.9); LYMPH % 7.8 % (8-40); MCH 31.9 pg (25.7-33.7); MCHC 33.5 g/dl (32.0-35.9); MEAN CELL VOLUME 95.2 fl (80-96); MEAN PLT VOLUME 9.8 fl (7.5-11.1); MONO % 5.4 % (3.8-10.2); NEUT % 85.2 % (42.8-82.8); PLATELET COUNT 156 K/MM3 (134-434); RBC 3.55 M/mm3 (4.00-5.60); RDW 21.4 % (11.9-15.9); WHITE BLOOD COUNT 15.7 K/mm3 (4.0-10.0)
[2018-06-10 02:26] LABS: ALBUMIN 2.1 g/dl (3.4-5.0); ALK PHOS 178 U/L (45-117); ANION GAP 11 MMOL/L (8-16); BILIRUBIN,TOTAL 1.5 mg/dL (0.2-1); BLOOD UREA NITROGEN 103 mg/dL (7-18); CHLORIDE 86 mmol/L (98-107); CO2 31 mmol/L (21-32); CREATININE 3.7 mg/dL (0.55-1.3); GLUCOSE,RANDOM 106 mg/dL (74-106); POTASSIUM 5.5 mmol/L (3.5-5.1); SGOT/AST 8233 U/L (15-37); SGPT/ALT 1414 U/L (13-61); SODIUM 128 mmol/L (136-145); TOT PROT 5.2 g/dl (6.4-8.2)
[2018-06-10 02:30] LABS: CALCIUM 6.9 mg/dL (8.5-10.1)
--- NOTE | 2018-06-10 02:58 | PN ---
Progress Note (short form) - Note Progress Note: Contacted [facility] transfer center again to inform about worsening repeat lab tests and spoke to Dr. Hauser (cardiovascular surg). Pt has now been accepted to [facility] by Dr. Hauser. Will be contacted by the hospital once bed is available. Paperwork completed. Both niece and patient have been made aware of transfer.
[2018-06-10] MEDS: MILRINONE 20MG/100ML IVPB - 20,000 MCG/100 ML ML IVPB SCH (04:47)
[2018-06-10] MEDS: FUROSEMIDE INJECTION 100 MG in SODIUM CHLORIDE 90 ML IVPB SCH (04:48)
[2018-06-10] MEDS: oxyCODONE HCL 5 MG TABLET PO PRN (04:50)
[2018-06-10] MEDS: INSULIN SLIDING SCALE (NOVOLOG) 1 VIAL SQ SCH (06:12)
[2018-06-10] MEDS: DOCUSATE SODIUM 100 MG CAPSULE (FP) PO SCH (06:13)
[2018-06-10 06:25] VITALS: BP 111/81; TEMP 97.8
--- NOTE | 2018-06-10 06:49 | DS ---
Physical Exam: SUBJECTIVE: Patient seen and examined pt transfered early [facility] unit under dr rogers. Pt was already transferred before I saw him this morning. OBJECTIVE: Vital Signs Period Temp Pulse Resp BP Sys/El Pulse Ox Last 24 Hr 97.2 F-98.1 F 58-63 20-20 105-131/64-81 98-100 PHYSICAL EXAM LABS Laboratory Results - last 24 hr 06/09/18 06/09/18 06/09/18 05:30 05:30 09:25 WBC 25.0 H RBC 3.78 L Hgb 11.9 Hct 36.3 MCV 95.9 MCH 31.4 MCHC 32.7 RDW 22.5 H Plt Count 160 MPV 9.8 D Absolute Neuts (auto) 22.5 H Total Counted Neutrophils % 90.0 H Neutrophils % (Manual) 86.1 H Band Neutrophils % 1.0 Lymphocytes % 3.9 L D Lymphocytes % (Manual) 3.0 L D Monocytes % 5.7 Monocytes % (Manual) 10 Eosinophils % 0.1 D Eosinophils % (Manual) 0.0 Basophils % 0.3 Basophils % (Manual) 0.0 Myelocytes % (Man) 0 Promyelocytes % (Man) 0 Blast Cells % (Manual) 0 Nucleated RBC % 0 Metamyelocytes 0 Hypochromia 0 Platelet Estimate Adequate Polychromasia 1+ Poikilocytosis 2+ Anisocytosis 1+ Microcytosis 0 Macrocytosis 1+ Target Cells Ovalocytes 1+ Schistocytes PT with INR 27.40 H INR 2.30 H PTT (Actin FS) Sodium 128 L Potassium 5.2 H Chloride 86 L Carbon Dioxide 24 Anion Gap 18 H BUN 94 H Creatinine 3.3 H Creat Clearance w eGFR 19.03 POC Glucometer Random Glucose 69 L Lactic Acid Calcium 7.8 L Magnesium 2.1 Total Bilirubin 1.9 H Direct Bilirubin GGT AST 4366 H ALT 718 H Alkaline Phosphatase 204 H LD Total Creatine Kinase Creatine Kinase Index CK-MB (CK-2) Total Protein 5.5 L Albumin 2.2 L Acetaminophen 06/09/18 06/09/18 06/09/18 10:50 10:50 10:50 WBC 20.6 H RBC 3.67 L Hgb 11.3 L Hct 34.8 L MCV 94.8 MCH 30.9 MCHC 32.6 RDW 21.9 H Plt Count 165 MPV 10.1 Absolute Neuts (auto) 18.0 H Total Counted Neutrophils % 87.3 H Neutrophils % (Manual) 91.2 H Band Neutrophils % 0.0 Lymphocytes % 6.1 L D Lymphocytes % (Manual) 5.9 L D Monocytes % 6.1 Monocytes % (Manual) 3 L Eosinophils % 0.1 Eosinophils % (Manual) 0.0 Basophils % 0.4 Basophils % (Manual) 0.0 Myelocytes % (Man) 0 Promyelocytes % (Man) 0 Blast Cells % (Manual) 0 Nucleated RBC % 0 Metamyelocytes 0 Hypochromia 0 Platelet Estimate Adequate Polychromasia 1+ Poikilocytosis 1+ Anisocytosis 1+ Microcytosis 0 Macrocytosis 1+ Target Cells 1+ Ovalocytes 1+ Schistocytes 1+ PT with INR INR PTT (Actin FS) 32.2 Sodium 128 L Potassium 5.3 H Chloride 88 L Carbon Dioxide 22 Anion Gap 17 H BUN 98 H Creatinine 3.5 H Creat Clearance w eGFR 17.78 POC Glucometer Random Glucose 68 L Lactic Acid Calcium 7.9 L Magnesium 2.0 Total Bilirubin 1.9 H Direct Bilirubin 1.2 H GGT AST 6780 H ALT 1055 H Alkaline Phosphatase 195 H LD Total Creatine Kinase Creatine Kinase Index CK-MB (CK-2) Total Protein 5.5 L Albumin 2.2 L Acetaminophen 06/09/18 06/09/18 06/09/18 11:43 14:45 14:45 WBC RBC Hgb Hct MCV MCH MCHC RDW Plt Count MPV Absolute Neuts (auto) Total Counted Neutrophils % Neutrophils % (Manual) Band Neutrophils % Lymphocytes % Lymphocytes % (Manual) Monocytes % Monocytes % (Manual) Eosinophils % Eosinophils % (Manual) Basophils % Basophils % (Manual) Myelocytes % (Man) Promyelocytes % (Man) Blast Cells % (Manual) Nucleated RBC % Metamyelocytes Hypochromia Platelet Estimate Polychromasia Poikilocytosis Anisocytosis Microcytosis Macrocytosis Target Cells Ovalocytes Schistocytes PT with INR INR PTT (Actin FS) Sodium Potassium Chloride Carbon Dioxide Anion Gap BUN Creatinine Creat Clearance w eGFR POC Glucometer 74 Random Glucose Lactic Acid Calcium Magnesium Total Bilirubin Direct Bilirubin GGT AST ALT Alkaline Phosphatase LD Total Creatine Kinase 166 Creatine Kinase Index 2.5 CK-MB (CK-2) 4.2 H Total Protein Albumin Acetaminophen 12.7 06/09/18 06/09/1806/09/19 14:45 18:00 18:00 WBC 19.8 H RBC 3.69 L Hgb 11.8 Hct 35.9 MCV 97.3 H MCH 32.0 MCHC 32.9 RDW 23.0 H Plt Count 172 MPV 10.3 Absolute Neuts (auto) 16.9 H Total Counted Neutrophils % 85.5 H Neutrophils % (Manual) 89.0 H Band Neutrophils % 4.0 Lymphocytes % 7.2 L Lymphocytes % (Manual) 6.0 L Monocytes % 4.8 Monocytes % (Manual) 1 L Eosinophils % 1.5 D Eosinophils % (Manual) 0.0 Basophils % 1.0 Basophils % (Manual) 0.0 Myelocytes % (Man) Promyelocytes % (Man) Blast Cells % (Manual) Nucleated RBC % 0 Metamyelocytes Hypochromia Platelet Estimate Adequate Polychromasia Poikilocytosis Anisocytosis 2+ Microcytosis Macrocytosis Target Cells Ovalocytes Schistocytes PT with INR 30.90 H INR 2.59 H PTT (Actin FS) Sodium Potassium Chloride Carbon Dioxide Anion Gap BUN Creatinine Creat Clearance w eGFR POC Glucometer Random Glucose Lactic Acid Calcium Magnesium Total Bilirubin Direct Bilirubin GGT 122 H AST ALT Alkaline Phosphatase LD Total Creatine Kinase Creatine Kinase Index CK-MB (CK-2) Total Protein Albumin Acetaminophen 06/09/18 06/09/18 06/09/18 18:00 22:30 22:58 WBC RBC Hgb Hct MCV MCH MCHC RDW Plt Count MPV Absolute Neuts (auto) Total Counted Neutrophils % Neutrophils % (Manual) Band Neutrophils % Lymphocytes % Lymphocytes % (Manual) Monocytes % Monocytes % (Manual) Eosinophils % Eosinophils % (Manual) Basophils % Basophils % (Manual) Myelocytes % (Man) Promyelocytes % (Man) Blast Cells % (Manual) Nucleated RBC % Metamyelocytes Hypochromia Platelet Estimate Polychromasia Poikilocytosis Anisocytosis Microcytosis Macrocytosis Target Cells Ovalocytes Schistocytes PT with INR INR PTT (Actin FS) Sodium 127 L Potassium 5.4 H Chloride 86 L Carbon Dioxide 26 Anion Gap 16 BUN 102 H Creatinine 3.9 H Creat Clearance w eGFR 15.69 POC Glucometer 106 Random Glucose 68 L Lactic Acid 6.2 H* Calcium 7.5 L Magnesium Total Bilirubin 1.6 H Direct Bilirubin GGT AST 9393 H ALT 1420 H Alkaline Phosphatase 198 H LD Total > 4000 H Creatine Kinase Creatine Kinase Index CK-MB (CK-2) Total Protein 5.7 L Albumin 2.3 L Acetaminophen 06/10/18 06/10/18 06/10/18 01:20 01:20 01:20 WBC 15.7 H RBC 3.55 L Hgb 11.3 L Hct 33.8 L MCV 95.2 MCH 31.9 MCHC 33.5 RDW 21.4 H Plt Count 156 MPV 9.8 Absolute Neuts (auto) 13.3 H Total Counted 100 Neutrophils % 85.2 H Neutrophils % (Manual) 87.0 H Band Neutrophils % 2.0 Lymphocytes % 7.8 L Lymphocytes % (Manual) 9.0 D Monocytes % 5.4 Monocytes % (Manual) 2 L D Eosinophils % 0.9 Eosinophils % (Manual) Basophils % 0.7 Basophils % (Manual) Myelocytes % (Man) Promyelocytes % (Man) Blast Cells % (Manual) Nucleated RBC % 0 Metamyelocytes Hypochromia Platelet Estimate Polychromasia Poikilocytosis Anisocytosis Microcytosis Macrocytosis Target Cells Ovalocytes Schistocytes PT with INR INR PTT (Actin FS) Sodium 128 L Potassium 5.5 H Chloride 86 L Carbon Dioxide 31 Anion Gap 11 BUN 103 H Creatinine 3.7 H Creat Clearance w eGFR 16.67 POC Glucometer Random Glucose 106 Lactic Acid 4.0 H* Calcium 6.9 L* Magnesium Total Bilirubin 1.5 H Direct Bilirubin GGT AST 8233 H ALT 1414 H Alkaline Phosphatase 178 H LD Total Creatine Kinase Creatine Kinase Index CK-MB (CK-2) Total Protein 5.2 L Albumin 2.1 L Acetaminophen 06/10/18 05:28 WBC RBC Hgb Hct MCV MCH MCHC RDW Plt Count MPV Absolute Neuts (auto) Total Counted Neutrophils % Neutrophils % (Manual) Band Neutrophils % Lymphocytes % Lymphocytes % (Manual) Monocytes % Monocytes % (Manual) Eosinophils % Eosinophils % (Manual) Basophils % Basophils % (Manual) Myelocytes % (Man) Promyelocytes % (Man) Blast Cells % (Manual) Nucleated RBC % Metamyelocytes Hypochromia Platelet Estimate Polychromasia Poikilocytosis Anisocytosis Microcytosis Macrocytosis Target Cells Ovalocytes Schistocytes PT with INR INR PTT (Actin FS) Sodium Potassium Chloride Carbon Dioxide Anion Gap BUN Creatinine Creat Clearance w eGFR POC Glucometer 120 Random Glucose Lactic Acid Calcium Magnesium Total Bilirubin Direct Bilirubin GGT AST ALT Alkaline Phosphatase LD Total Creatine Kinase Creatine Kinase Index CK-MB (CK-2) Total Protein Albumin Acetaminophen Laboratory Tests 05/28/18 05/29/18 06/01/18 02:29 08:10 05:30 Lactic Acid GGT AST 91 H 37 29 ALT 14 14 12 L Creatine Kinase Creatine Kinase Index Total Protein Albumin Acetaminophen MICHELLE 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 Intrp Hepatitis A IgM Ab Hep Bs Antigen Hep B Core IgM Ab Hepatitis C Antibody 06/03/18 06/05/18 06/07/18 05:30 07:36 05:30 Lactic Acid GGT AST 70 H 66 H ALT 13 25 27 Creatine Kinase Creatine Kinase Index Total Protein Albumin Acetaminophen MICHELLE 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 Intrp Hepatitis A IgM Ab Hep Bs Antigen Hep B Core IgM Ab Hepatitis C Antibody 06/08/18 06/09/18 06/09/18 05:30 05:30 10:50 Lactic Acid GGT AST 81 H 4366 H 6780 H ALT 38 718 H 1055 H Creatine Kinase Creatine Kinase Index Total Protein Albumin Acetaminophen MICHELLE 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 Intrp Hepatitis A IgM Ab Hep Bs Antigen Hep B Core IgM Ab Hepatitis C Antibody 06/09/18 06/09/18 06/09/18 14:45 14:45 14:45 Lactic Acid GGT AST ALT Creatine Kinase 166 Creatine Kinase Index 2.5 Total Protein Albumin Acetaminophen 12.7 MICHELLE 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 Intrp Hepatitis A IgM Ab Pending Hep Bs Antigen Pending Hep B Core IgM Ab Pending Hepatitis C Antibody Pending 06/09/18 06/09/18 06/09/18 14:45 18:00 22:30 Lactic Acid 6.2 H* GGT 122 H AST 9393 H ALT 1420 H Creatine Kinase Creatine Kinase Index Total Protein Albumin Acetaminophen MICHELLE 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 Intrp Hepatitis A IgM Ab Hep Bs Antigen Hep B Core IgM Ab Hepatitis C Antibody 06/10/18 06/10/18 06/10/18 01:20 01:20 05:30 Lactic Acid 4.0 H* GGT AST 8233 H 8039 H ALT 1414 H 1406 H Creatine Kinase Creatine Kinase Index Total Protein 5.4 L Albumin 2.2 L Acetaminophen MICHELLE 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 Intrp Hepatitis A IgM Ab Hep Bs Antigen Hep B Core IgM Ab Hepatitis C Antibody 06/10/18 05:30 Lactic Acid GGT AST ALT Creatine Kinase Creatine Kinase Index Total Protein Albumin Acetaminophen MICHELLE Screen Pending Smooth [employer] &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 Intrp Pending Hepatitis A IgM Ab Hep Bs Antigen Hep B Core IgM Ab Hepatitis C Antibody ECG: AFL, V-P, PVCs, LVH, no sig change prior CXR: no sig change CT head: L thalamic infarct, unchanged from prior echo 06/2016: sev dec lvef, global hk, rv tds, trinity, mod-sev mr, mod tr, rvsp 50- 60 echo 06/2015: mild lve, mod-sev dec lvef, mod lae, nl rv size, mild dec rv fcn, mild-mod mr, mild tr, nl avr fcn, rvsp 30-40 04/14/18 ECHO MSH - moderate left ventricular dilatation overall severe decreased left ventricular systolic function (diffuse); estimated ejection fraction = 30 % The posterior wall is severely hypokinetic. Restrictive diastolic dysfunction normal right ventricular size moderate decreased right ventricular function aortic prosthesis (tissue) no evidence for aortic regurgitation moderate to severe mitral regurgitation mild to moderate tricuspid regurgitation moderate to severe pulmonary hypertension minimal pulmonic regurgitation no evidence for pericardial effusion technically difficult study Definity precision microbubble contrast used to enhance endocardial border definition mibi 06/2016 (pers): non-diagnostic STs; large area inferior/inferolateral/ lateral scar; no ischemia; severe LV cavity dilation; global HK with akinesis of inferior/inferolat/lateral allan; EF 16% mibi 09/2014: large inf scar, mod anteroapical ischemia, lvef 25% HOSPITAL COURSE: [facility]: The patient is a 62M with a PMH of COPD (on 2L home O2) HTN, IDDM, Systolic CHF, Aflutter , CAD s/p PPM and watchman placement( 2018) who presents to the ER with complaints of leg swelling and shortness of breath. The patient states that he has not taken his "water pill" since thursday and is eatout every day. States he gets short of breath when he lies down. He also states that he has noticed that he gained weight in last few days but don't know how much. He denies CP, fever, chills, nausea, vomiting, cough, diaphoresis , numbness, tingling, lightheadedness, dizziness, fever and chills and weakness. States he use to take 80 mg lasix bid but has not taken it from few days. Hospital course In hospital pt found to have acute chf exabration, with afib with fior from cardiorenal syndrome and dry garngrene tof left foot with on dorsum of foot. for chf exabration pt was started on iv lasix and dose increased uto 100mg bid bt pt was not marking an adequate amount of urine so pt was started on IV lasix drip with milrinone drip by leak gang supervisor. Pt breathing improved significantly and and his swelling in legs also decreased. Yesterday 06/09/18 pt lasix drip and milrinone was stopped and pt was started on 100mg lasix bid. on 06/09/18 pt again have some increase in swelling in legs but no respiratory distress. For afib pt has icd and watchman procedure done. Watchman procedure was done on 04/20/18 an dpt is on aspirin and plavix for 3 months. For PVD pt is not a candidate for ct angio because of ckd with fior so pt was taken to OR on 06/03/28 for co2 infused vascular study bt pt has episode of v tech in OR so procedure was canceled. Toay on 06/10/18 pt has worsening fior, acute transamenitis. Pt BP overnight was stable, CXR was done today which doesn't show any congestion. INr jumped from 1.5 ( 05/28/18) to 2.3 ( 06/09/18), ast> 7000( on 06/08/18---81) , alt 1055( on -- 38), total bilrubin 1.9 ( on 06/08/18 it was 0.5), ggt 122, ck 166, alp 195( on 06/08/18 it was 208). Pt platelets alos dropped from 360( 05/28/18) to 160() sq hearin was stopped and hit antibodies were sent, result pending. Hepatic panel was sent result pending, acetamionophen level 12.7. Ultrasound liver with doppler was also ordered pending. Pt stain therapy has been stopped today he was on atorvastain 40 daily. Pt is calm cooperative, aox3, no respitory distress Pt transfered t0 [facility] ccu under dr rogers for further management. Pt and his niece requested to transfer pt Date of Admission:05/28/18 Date of Discharge: 06/10/18 Minutes to complete discharge: 45 Discharge Summary Reason For Visit: DIABETES MELLITUS W/CHRONIC KIDNEY DISEASE CHF Condition: Guarded - Instructions Diet, Activity, Other Instructions: pt transferred to to [facility] for further management under dr rogers. pt transferred to ccu Referrals: Kanu Truong MD [Primary Care Provider] - Disposition: TRANSFER ACUTE CARE/OTHER HOSP - Home Medications Comprehensive Discharge Medication List: Ambulatory Orders Albuterol 0.083% Nebulizer Rosy [Ventolin 0.083% Nebulizer Soln -] 1 amp NEB Q4H PRN #30 amp 05/02/18 Aspirin [ASA -] 81 mg PO DAILY #30 tab.chew 05/02/18 Atorvastatin Ca [Lipitor] 40 mg PO HS #30 tablet 05/02/18 Budesonide/Formeterol Fumarate [SYMBICORT 80/4.5mcg -] 2 puff IH BID #1 inhaler 05/02/18 Cholecalciferol (Vitamin D3) [Vitamin D3] 2,000 unit PO DAILY #30 capsule Clopidogrel Bisulfate [Plavix -] 75 mg PO DAILY #30 tablet 05/02/18 Cyclobenzaprine HCl 5 mg PO HS #30 tablet 05/02/18 Docusate Sodium [Colace -] 100 mg PO TID #90 capsule 05/02/18 Furosemide [Lasix -] 80 mg PO DAILY #60 tablet 05/02/18 Glipizide [Glucotrol -] 5 mg PO BID@0700,1630 #60 tablet 05/02/18 Lactulose [Cephulac -] 10 - 20 gm PO DAILY PRN #1 bottle 05/02/18 Melatonin 5 mg PO HS PRN #30 tab 05/02/18 Metoprolol Succinate [Toprol XL -] 50 mg PO BID #60 tab.sr.24h 05/02/18 Nebulizer [Compact Compressor Nebulizer] 1 each ASDIR #1 each 05/02/18 Pantoprazole Sodium [Protonix -] 40 mg PO DAILY #30 tablet.ec 05/02/18 Psyllium [Metamucil (Sugar-Free) -] 5.85 gm PO BID #1 bottle 05/02/18 Ranitidine [Zantac -] 150 mg PO HS #30 tablet 05/02/18 Sennosides [Senna -] 2 tab PO HS PRN #30 tablet 05/02/18 predniSONE [Deltasone -] 5 mg PO ASDIR #32 tab 05/02/18 Oxycodone HCl/Acetaminophen [Percocet 10-325 mg Tablet] 1 each PO TID PRN #80 tablet MDD 3 05/21/18 This patient is new to me today: No Emergency Visit: Yes ED Registration Date: 05/28/18 Care time: The patient presented to the Emergency Department on the above date and was hospitalized for further evaluation of their emergent condition. Critical Care patient: No - Discharge Referral Referred to [facility] Med P.C.: No
[2018-06-10 07:07] LABS: BASO % 0.5 % (0-2.0); EOS % 1.1 % (0-4.5); HEMATOCRIT 32.2 % (35.4-49); HEMOGLOBIN 10.7 GM/dL (11.7-16.9); LYMPH % 6.9 % (8-40); MCH 31.3 pg (25.7-33.7); MCHC 33.2 g/dl (32.0-35.9); MEAN CELL VOLUME 94.3 fl (80-96); MEAN PLT VOLUME 9.8 fl (7.5-11.1); MONO % 4.6 % (3.8-10.2); NEUT % 86.9 % (42.8-82.8); PLATELET COUNT 164 K/MM3 (134-434); RBC 3.41 M/mm3 (4.00-5.60); RDW 22.1 % (11.9-15.9); WHITE BLOOD COUNT 15.3 K/mm3 (4.0-10.0)
[2018-06-10 07:22] LABS: INR 2.7 (0.83-1.09); PROTHROMBIN TIME (PATIENT) 32.2 SEC (9.7-13.0)
[2018-06-10 08:08] LABS: ALBUMIN 2.2 g/dl (3.4-5.0); ALK PHOS 184 U/L (45-117); ANION GAP 14 MMOL/L (8-16); BILIRUBIN,TOTAL 1.5 mg/dL (0.2-1); CHLORIDE 85 mmol/L (98-107); CO2 28 mmol/L (21-32); CREATININE 3.9 mg/dL (0.55-1.3); GLUCOSE,RANDOM 99 mg/dL (74-106); POTASSIUM 5.2 mmol/L (3.5-5.1); SGOT/AST 8039 U/L (15-37); SGPT/ALT 1406 U/L (13-61); SODIUM 128 mmol/L (136-145); TOT PROT 5.4 g/dl (6.4-8.2)
[2018-06-10 08:47] LABS: BLOOD UREA NITROGEN 109 mg/dL (7-18)
[2018-06-10 08:48] LABS: CALCIUM 6.8 mg/dL (8.5-10.1)
[2018-06-10 11:17] LABS: ANISOCYTOSIS 1+; MACROCYTOSIS 1+
[2018-06-10 13:56] LABS: PLATELET ESTIMATE ADEQUATE
--- NOTE | 2018-06-10 18:02 | PN ---
Teaching Attending Note Name of Resident: Rafael Lieberman ATTENDING PHYSICIAN STATEMENT I saw and evaluated the patient. I reviewed the resident's note and discussed the case with the resident. I agree with the resident's findings and plan as documented. Patient transferred to [facility] overnight. Problem List - Problems (1) Abnormal liver enzymes Code(s): R74.8 - ABNORMAL LEVELS OF OTHER SERUM ENZYMES (2) Acute exacerbation of CHF (congestive heart failure) Code(s): I50.9 - HEART FAILURE, UNSPECIFIED Qualifiers: Heart failure type: systolic Qualified Code(s): I50.23 - Acute on chronic systolic (congestive) heart failure (3) Afib Code(s): I48.91 - UNSPECIFIED ATRIAL FIBRILLATION Qualifiers: Atrial fibrillation type: chronic Qualified Code(s): I48.2 - Chronic atrial fibrillation (4) Gangrene Code(s): I96 - GANGRENE, NOT ELSEWHERE CLASSIFIED (5) Chronic respiratory failure Code(s): J96.10 - CHRONIC RESPIRATORY FAILURE, UNSP W HYPOXIA OR HYPERCAPNIA (6) Hyperkalemia Code(s): E87.5 - HYPERKALEMIA (7) Acute on chronic renal insufficiency Code(s): N28.9 - DISORDER OF KIDNEY AND URETER, UNSPECIFIED; N18.9 - CHRONIC KIDNEY DISEASE, UNSPECIFIED (8) Diabetes Code(s): E11.9 - TYPE 2 DIABETES MELLITUS WITHOUT COMPLICATIONS Qualifiers: Diabetes mellitus type: type 2 Diabetes mellitus manager long term care insulin use: with manager long term care use Diabetes mellitus complication status: with kidney complications Diabetes mellitus complication detail: with chronic kidney disease Chronic kidney disease stage: stage 3 (moderate) Qualified Code(s): E11.22 - Type 2 diabetes mellitus with diabetic chronic kidney disease; N18.3 - Chronic kidney disease, stage 3 (moderate); Z79.4 - longterm (current) use of 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
[2018-06-11 02:14] LABS: HEP.C VIRUS AB 0.1 s/co ratio (0.0-0.9)
== END 2018-06-10 06:28 | disposition short-term general hospital (02) | DRG 291 ==
LOC: JER 08:40 → J4W 23:33
PROVIDERS: ADMIT Internal Medicine; ATTEND Internal Medicine
DX: I13.0 Hypertensive heart and chronic kidney disease with heart failure and stage 1 through stage 4 chronic kidney disease, or unspecified chronic kidney disease (principal); I50.23 Acute on chronic systolic (congestive) heart failure; I96 Gangrene, not elsewhere classified; J96.10 Chronic respiratory failure, unspecified whether with hypoxia or hypercapnia; N17.9 Acute kidney failure, unspecified; E87.1 Hypo-osmolality and hyponatremia; I48.92 Unspecified atrial flutter; I48.1 Persistent atrial fibrillation; N18.3 Chronic kidney disease, stage 3 (moderate); I27.20 Pulmonary hypertension, unspecified; I36.1 Nonrheumatic tricuspid (valve) insufficiency; E11.22 Type 2 diabetes mellitus with diabetic chronic kidney disease; E11.40 Type 2 diabetes mellitus with diabetic neuropathy, unspecified; Z91.14 Patient's other noncompliance with medication regimen; E87.5 Hyperkalemia; I48.2 Chronic atrial fibrillation; D63.1 Anemia in chronic kidney disease; J44.9 Chronic obstructive pulmonary disease, unspecified; E78.5 Hyperlipidemia, unspecified; Z99.81 Dependence on supplemental oxygen; Z79.4 Long term (current) use of insulin; I25.10 Atherosclerotic heart disease of native coronary artery without angina pectoris; Z95.810 Presence of automatic (implantable) cardiac defibrillator; Z95.1 Presence of aortocoronary bypass graft; Z87.891 Personal history of nicotine dependence; I34.0 Nonrheumatic mitral (valve) insufficiency; M54.5 Low back pain; G89.29 Other chronic pain; I87.8 Other specified disorders of veins; Z53.09 Procedure and treatment not carried out because of other contraindication; Z79.01 Long term (current) use of anticoagulants; R74.8 Abnormal levels of other serum enzymes; R74.0 Nonspecific elevation of levels of transaminase and lactic acid dehydrogenase [LDH]
CPT/HCPCS: 36415; 71045-TC-FY; 73630-TC-LT; 76705-TC; 80048; 80053; 80061; 80074; 80307; 82248; 82550; 82553; 82962; 82977; 83516; 83605; 83615; 83721; 83735; 83880; 84100; 84132; 84484; 85025; 85362; 85610; 85730; 86022; 86038; 86850; 86900; 86901; 93005; 93010; 93923; 93976; 94640; 97116-GP; 97162-GP; 99285-25; J1644